=== PATIENT | female | born 1990 | race Caucasian/White ===

== ENCOUNTER → 2019-12-28 16:14 | Outpatient (CLI) | payer OTHER, SELFPAY ==
[2019-12-28 14:43] VITALS: BMI 29.0
[2019-12-28 17:10] LABS: Absolute Lymphocyte Count 3.06 X10^3/uL (0.83-4.51); Absolute Neutrophil Count 6.9 X10^3/uL (2.0-7.7); Basophil# 0.04 X10^3/uL; Basophil% 0.4 % (0-1); Eosinophils% 3.6 % (0-5); Hemoglobin 13.3 g/dL (12.0-15.0); Lymphocyte # 3.06 X10^3/ul (4.0); Lymphocyte % 27.4 % (19-41); Mean Corp Hgb Conc 34.1 g/dL (32-36); Mean Corpuscular Hgb 32.4 pg (27.0-32.0); Mean Corpuscular Volume 95.1 fL (81-99); Mean Platelet Vol. 9.8 fl (6.2-12.0); Monocyte% 6.3 % (0-10); NRBC Flagged by Analyzer 0 % (0-5); Neutrophil # 6.93 X10^3/uL (2.7-7.7); Neutrophil % 61.9 % (47-70); Platelet Count 357 K/mm3 (150-450); RBC Distribution Width CV 11.3 % (11.6-14.6); RBC Distribution Width SD 39.6 fl (35.1-43.9); White Blood Count 11.2 K/mm3 (4.4-11.0)
[2019-12-28 17:30] LABS: NATERA MAILED SPECIMEN
[2019-12-28 17:58] LABS: Amphetamine Urine VISTA NEGATIVE (<1000 ng/mL); Barbiturate Urine VISTA NEGATIVE (< 200 ng/mL); Benzodiazepine Urine VISTA NEGATIVE (< 200 ng/mL); Cocaine Urine VISTA NEGATIVE (< 300 ng/mL); Ecstacy Urine VISTA NEGATIVE (< 500 ng/mL); Methadone Urine VISTA NEGATIVE (< 300 ng/mL); PCP Urine VISTA NEGATIVE (< 25 ng/mL); THC Urine VISTA NEGATIVE (< 50 ng/mL); Vista UDS pH Range 4
[2019-12-29 09:45] LABS: HIV - WCH Non-Reactive (Nonreactive); Hepatitis B Surface Antigen Non-Reactive (Nonreactive); Hepatitis C Antibody Non-Reactive (Nonreactive); Rubella IgG 46.3 IU/mL
[2019-12-31 03:07] LABS: Chlamydia By Nucleic Acid AMP Negative (Negative)
[2019-12-31 04:31] LABS: Rapid Plasmin Reagin (RPR) NONREACTIVE (NONREACTIVE)
[2019-12-31 09:13] LABS: Gonococcus By Nucleic Acid AMP Negative (Negative)
== END ==
PROVIDERS: PCP Nurse Practitioner Family; Referring Provider Obstetrics & Gynecology; Visit Provider Obstetrics & Gynecology
DX: Z34.90 Encounter for supervision of normal pregnancy, unspecified, unspecified trimester (principal); Z83.71 Family history of colonic polyps
CPT/HCPCS: 36415; 80307; 85025; 86592; 86703; 86762; 86803; 86850; 86900; 86901; 87086; 87088; 87340; 87491; 87591

== ENCOUNTER → 2020-01-15 12:02 | Outpatient (CLI) | payer OTHER, SELFPAY ==
[2019-12-28 14:43] VITALS: BMI 29.0
== END ==
PROVIDERS: PCP Nurse Practitioner Family; Referring Provider Obstetrics & Gynecology; Visit Provider Obstetrics & Gynecology
DX: Z34.81 Encounter for supervision of other normal pregnancy, first trimester (principal)
CPT/HCPCS: 36415

== ENCOUNTER → 2020-05-16 12:41 | Outpatient (CLI) | payer OTHER, SELFPAY ==
[2020-04-18 13:27] VITALS: BMI 31.6
[2020-05-16 13:24] LABS: Absolute Lymphocyte Count 2.32 X10^3/uL (0.83-4.51); Absolute Neutrophil Count 7.5 X10^3/uL (2.0-7.7); Basophil# 0.03 X10^3/uL; Basophil% 0.3 % (0-1); Eosinophil# 0.52 X10^3/uL; Eosinophils% 4.7 % (0-5); Hematocrit 34.2 % (37-47); Hemoglobin 11.6 g/dL (12.0-15.0); Lymphocyte # 2.32 X10^3/ul (4.0); Lymphocyte % 21.1 % (19-41); Mean Corp Hgb Conc 33.9 g/dL (32-36); Mean Corpuscular Volume 97.2 fL (81-99); Monocyte# 0.61 X10^3/uL; Monocyte% 5.5 % (0-10); NRBC Flagged by Analyzer 0 % (0-5); Neutrophil # 7.46 X10^3/uL (2.7-7.7); Neutrophil % 67.7 % (47-70); Platelet Count 280 K/mm3 (150-450); RBC Distribution Width CV 11.9 % (11.6-14.6); RBC Distribution Width SD 41.2 fl (35.1-43.9); Red Blood Count 3.52 M/mm3 (4.2-5.4)
[2020-05-16 13:32] LABS: Glucose Challenge Gest 1H 50g 99 mg/dL (70-140)
== END ==
PROVIDERS: PCP Nurse Practitioner Family; Referring Provider Obstetrics & Gynecology; Visit Provider Obstetrics & Gynecology
DX: Z34.90 Encounter for supervision of normal pregnancy, unspecified, unspecified trimester (principal); Z13.1 Encounter for screening for diabetes mellitus
CPT/HCPCS: 36415; 82950; 85025

== ENCOUNTER → 2020-07-14 | Outpatient (CLI) | payer OTHER, SELFPAY ==
[2020-07-14 14:23] VITALS: BMI 34.4
== END | disposition home or self-care (01) ==
LOC: LABSPEC 17:15
PROVIDERS: PCP Nurse Practitioner Family; Visit Provider Obstetrics & Gynecology
DX: Z34.90 Encounter for supervision of normal pregnancy, unspecified, unspecified trimester (principal)
CPT/HCPCS: 87081

== ENCOUNTER → 2020-07-29 15:36 | Outpatient (CLI) | payer OTHER, SELFPAY ==
[2020-07-29 13:16] VITALS: BMI 34.2
--- NOTE | 2020-07-29 15:38 | US_ITS ---
STUDY: SECOND AND THIRD TRIMESTER OBSTETRICAL ULTRASOUND - LIMITED REASON FOR EXAM: Female, 30 years old 39 week . Growth. Size/date discrepancy. LMP: 10/30/2019. PRIOR ULTRASOUND: None. TECHNIQUE: Transabdominal TECHNICAL QUALITY: Adequate. FINDINGS: There is a single intrauterine fetus. The fetus is in a cephalic presentation. There is demonstrated cardiac activity with a heart rate of 143 bpm. There is a normal amniotic fluid volume. The largest amniotic fluid pocket measures 5.36 cm. The amniotic fluid index (SAURAV) is 13.88 cm. The placenta is anterior in location and is not low lying. There are Grade 2 placental changes. The cervix is obscured BIOMETRY: BPD: 9.32 cm: 37 weeks, days HC: 33.98 cm: 39 weeks, 0 days AC: 34.07 cm: 37 weeks, 6 days FL: 7.33 cm: 37 weeks, 3 days Age by LMP: 39 weeks, 0 days. BALAJI by LMP: 08/05/2020. age by current US: 38 weeks, 0 days. BALAJI by current US: 08/12/2020. Estimated weight: 3367 grams, +/- 505 grams, 44 percentile. Gender: Indeterminant US/OB Limited With Biometrics IMPRESSION: 1. Live single intrauterine at 38 weeks, 0 days. BALAJI is 08/12/2020. 2. EFW of 3367 g. 3. SAURAV of 13.88 cm. 4. Anterior grade 2 placenta. 5. VERTEX presentation. Electronically Signed: Ronald Salvador DO at 20:12 EDT Tel [phone], Service support ,
== END ==
PROVIDERS: PCP Nurse Practitioner Family; Referring Provider Obstetrics & Gynecology; Visit Provider Obstetrics & Gynecology
DX: O26.849 Uterine size-date discrepancy, unspecified trimester (principal); Z3A.00 Weeks of gestation of pregnancy not specified
CPT/HCPCS: 76816

== ENCOUNTER 2020-08-03 19:36 | Outpatient (CLI) | payer OTHER, SELFPAY ==
[2020-07-29 13:16] VITALS: BMI 34.2
[2020-08-03 19:47] VITALS: TEMP 36.4; O2SAT 98
[2020-08-03 19:49] VITALS: BP 125/77; PULSE 99; TEMP 36.3
[2020-08-03 19:54] VITALS: BMI 34.2
--- NOTE | 2020-08-04 08:42 | OB.TRI.PN ---
Progress Notes Date of Service: 08/03/20 Progress Note: Patient presents for triage evaluation secondary to decreased movement. Movement increased after arrival in triage. FHT: Moderate variability reactive no decelerations category I tracing Bradford: Irregular Contractions Assessment and plan: Reactive NST, reassuring maternal and status patient discharged to home to follow-up at next scheduled visit. See problem list details for additional plan information. Multi Select Codes - Urinary/Genital Urinary/Genital CPT Codes: 42118-51 non-stress test Interp
== END 2020-08-03 20:25 | disposition home or self-care (01) ==
LOC: WPOUT 19:38 → WP 19:39
PROVIDERS: PCP Nurse Practitioner Family; Visit Provider Obstetrics & Gynecology
DX: O36.8190 Decreased fetal movements, unspecified trimester, not applicable or unspecified (principal); Z3A.00 Weeks of gestation of pregnancy not specified
CPT/HCPCS: 59025; 59050; 99218; G0378

== ENCOUNTER 2020-08-10 18:55 | Inpatient (IN) | payer OTHER, SELFPAY ==
[2020-07-21 13:01] VITALS: BMI 34.2
[2020-08-05 13:19] VITALS: BMI 33.4
[2020-08-10 19:24] VITALS: BMI 35.2
[2020-08-10 19:31] VITALS: BP 117/84; PULSE 100; TEMP 36.8; O2SAT 98
[2020-08-10] MEDS: Lactated Ringers 1,000 ML 50 ML IV (19:50)
[2020-08-10 20:16] LABS: Absolute Lymphocyte Count 2.73 X10^3/uL (0.83-4.51); Absolute Neutrophil Count 7.1 X10^3/uL (2.0-7.7); Basophil# 0.03 X10^3/uL; Basophil% 0.3 % (0-1); Eosinophil# 0.42 X10^3/uL; Eosinophils% 3.7 % (0-5); Hematocrit 37.1 % (37-47); Hemoglobin 12.1 g/dL (12.0-15.0); Lymphocyte # 2.73 X10^3/ul (0.83-4.51); Lymphocyte % 24.2 % (19-41); Mean Corp Hgb Conc 32.6 g/dL (32-36); Mean Corpuscular Hgb 32.6 pg (27.0-32.0); Mean Platelet Vol. 11.2 fl (6.2-12.0); Monocyte# 0.93 X10^3/uL; Monocyte% 8.3 % (0-10); NRBC Flagged by Analyzer 0 % (0-5); Neutrophil # 7.06 X10^3/uL (2.7-7.7); Neutrophil % 62.7 % (47-70); Platelet Count 236 K/mm3 (150-450); RBC Distribution Width CV 12.3 % (11.6-14.6); RBC Distribution Width SD 45.4 fl (35.1-43.9); Red Blood Count 3.71 M/mm3 (4.2-5.4); White Blood Count 11.3 K/mm3 (4.4-11.0)
[2020-08-10] MEDS: miSOPROStol 25 MCG TABLET VAGINAL (20:20)
--- NOTE | 2020-08-10 21:44 | HP.PCM.OB_ITS ---
HPI - General General Date of Admission: 08/10/20 HPI Narrative ERICK ASKEW, is a 30 F who presents for induction of labor for post-dates. [facility] Medical History (Updated 08/10/20 @ 21:[address] Kelsea Del Rio MD) Urinary frequency Home Medications famotidine [Pepcid] 20 mg PO BID 08/10/20 [History Last Taken 08/03/20 08:00] [id number] [] 1 tab PO DAILY 08/10/20 [History Last Taken 08/10/20 17:00] Allergy/AdvReac Type Severity Reaction Status Date / Time Penicillins Allergy Mild hives, Verified 08/10/20 19:34 breathing issues shellfish derived Allergy Mild hives Verified 08/10/20 19:34 Family History Uncle Colon cancer Liver cancer Grandfather Liver cancer Social History (Updated 08/10/20 @ 19:41 by Gabriela Velazquez) adopted: No household members: spouse housing: house number of children: 0 financial difficulty paying for basics: not applicable service: No current occupational status: employed current occupation: [employer] current occupational exposures/hazards: No pets and animals: Yes (cat) history of recent travel: No sexually active: Yes do you think of yourself as: straight/heterosexual current gender identity: female Smoking Status: Former smoker smoking status stop date: 07/15/19 how long ago did patient quit smokin year ago second hand exposure: No alcohol intake: never substance use type: does not use caffeine: Yes what type of physical activity do you participate in: walking and other details: spinning frequency: 3-4 times per week seatbelt use: always do you feel safe at home: Yes 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 [employer] History 1 Elective abortions Hx Para 0 Spontaneous abortions Hx # Term Pregnancies Ectopic pregnancies Hx # Pregnancies Multiple births # of living children NST FHR Rate Baby A Baseline: 130 Variability:: Moderate Accelerations:: 15 x 15 Decelerations:: None NST Reactive:: Yes FHR Category:: Category I Uterine Activity:: q5-8min ROS Eyes Eyes: Reports systems reviewed and no addt'l complaints, except as documented ENT HEENT: Reports systems reviewed and no addt'l complaints, except as documented Cardiovascular Cardiovascular: Reports systems reviewed and no addt'l complaints, except as documented Respiratory/Chest Respiratory/Chest: Reports systems reviewed and no addt'l complaints, except as documented Gastrointestinal Gastrointestinal: Reports systems reviewed and no addt'l complaints, except as documented Genitourinary Genitourinary: Reports systems reviewed and no addt'l complaints, except as documented Musculoskeletal Musculoskeletal: Reports systems reviewed and no addt'l complaints, except as documented Integumentary Integumentary: Reports systems reviewed and no addt'l complaints, except as documented Neurologic Neurologic: Reports systems reviewed and no addt'l complaints, except as documented Psychiatric Psychiatric: Reports systems reviewed and no addt'l complaints, except as documented Endocrine Endocrinology: Reports systems reviewed and no addt'l complaints, except as documented Hematologic/Lymphatic Hematologic/Lymphatic: Reports systems reviewed and no addt'l complaints, except as documented Allergic/Immunologic Allergic/Immunologic: Reports systems reviewed and no addt'l complaints, except as documented Vital Signs Vital Signs Vital Signs: 08/10/20 19:31 Temperature 98.3 F Temperature Source Temporal Pulse Rate 100 Blood Pressure 117/84 H BP Systolic 117 BP Diastolic 84 Pulse Ox 98 Physical Exam Const alert, oriented x3, no apparent distress, average body habitus, healthy appearing and well nourished HEENT normocephalic and moist oral mucous membranes Head and Scalp: atraumatic Eyes PERRL and EOMs intact bilaterally Neck full ROM Resp normal respiratory effort, no retractions and no use of accessory muscles Cardio regular rate and regular rhythm GI soft to palpation, non-tender and non-distended Manual OB Exam: dilated 0, effaced 40 and station -3 Extremity normal to inspection and full ROM Skin no rashes or lesions noted Neuro no focal motor deficits and no sensory deficits noted Psych mental status grossly normal, affect normal, speech normal and activity/motor behavior normal Assessment & Plan Assessment/Plan (1) : Status: Acute Code(s): Z34.90 - Encounter for supervision of normal , unspecified, unspecified trimester Qualifiers: Weeks of gestation: 40 weeks Qualified Code(s): Z3A.40 - 40 weeks gestation of (2) Supervision of normal : Status: Acute Code(s): Z34.90 - Encounter for supervision of normal , unspecified, unspecified trimester Qualifiers: Normal : normal first Trimester: third trimester Qualified Code(s): Z34.03 - Encounter for supervision of normal first , third trimester (3) History of tetanus, diphtheria, and acellular pertussis booster vaccination (Tdap): Status: Acute Code(s): Z92.29 - Personal history of other drug therapy (4) Encounter for induction of labor: Status: Acute Code(s): Z34.90 - Encounter for supervision of normal , unspecified, unspecified trimester Plan: Labor preferences: labor support person: Aden labor intervention preferences: open to standard interventions pain management options preferred: desires natural labor but open to epidural cut cord/dad catch: both : yes PP control planned: undecided discussed possible routes of delivery and associated risks: discussed possible delivery modalities and possible indications for each including R/B/A of , VAVD, FAVD, and CS. questions answered. special requests: none Patient presents IOL, plan management for with cytotec. Pain management: desires natural, but open to epidural GBS negative. Management of any complications: none I have reviewed the [facility] and made any clinically relevant updates.
[2020-08-10 22:27] VITALS: BP 115/69; PULSE 81; TEMP 36.3; O2SAT 98
[2020-08-11] VITALS (77 sets, daily range): BP systolic 103–239; BP diastolic 56–177; PULSE 58–151; RESP 16–18; TEMP 36.1–38.8; O2SAT 81–100
[2020-08-11] MEDS: 0.9% Saline Lock 10 ML Syringe IV ×4 (00:32→16:04)
[2020-08-11] MEDS: miSOPROStol 25 MCG TABLET VAGINAL (00:53)
[2020-08-11] MEDS: Lactated Ringers 500 ML 999 ML IV ×3 (01:30→06:31)
[2020-08-11] MEDS: fentaNYL 100 MCG/2 ML Ampul IV ×2 (04:15→04:40)
[2020-08-11] MEDS: Ondansetron 4 MG/2 ML Vial IV (06:09)
[2020-08-11] MEDS: fentaNYL-bupivacaine (epidural) 100 ML BAG EPIDURAL ×2 (07:26→12:00)
[2020-08-11] MEDS: Lactated Ringers 1,000 ML 200 ML IV (08:09)
--- NOTE | 2020-08-11 08:47 | NURSING ---
Epidural pump restarted after epidural pump was replaced.
--- NOTE | 2020-08-11 12:00 | NURSING ---
New bag of fentanyl hung to epidural pump at 1200.
[2020-08-11] MEDS: Oxytocin 30 units/NS 500 ml 30 UNITS/500 ML IV.SOLN 334 UNITS IV (12:57)
[2020-08-11] MEDS: Methylergonovine 0.2 MG/ML Ampul IM (13:00)
[2020-08-11] MEDS: miSOPROStol 200 MCG Tablet 1000 MCG RC (13:17)
--- NOTE | 2020-08-11 14:19 | EX.PCM.OBRPT ---
Report of Operation (OB) Information BALAJI Calculator Estimated Delivery Date Method Current WG Current Estimate 08/05/20 LMP (Certain) 40w 6d Other Estimates 08/05/20 Ultrasound #1 40w 6d Induction Maternal Presentation: Medically Indicated Induction (Post dates) Type of Induction: Cytotec Medical Reason for Induction: Post term Findings Description of Procedure: Patient began pushing and delivered the head in the ROP presentation. The head was delivered atraumatically and no nuchal cord was noted. The anterior and posterior shoulders delivered without complication followed by the rest of the and the was placed on the maternal abdomen. Delayed cord clamping was employed for approximately 60 seconds. Cord was clamped and cut and gentle traction was applied to the cord and the placenta delivered spontaneously immediately following it was noted to be intact with three-vessel cord. The perineum and vagina were inspected and a midline 2nd degree laceration was noted and repaired in the standard fashion using 3-0 vicryl rapide suture. Uterine atony was noted and repaired with bimanual massage, methergine, and cytotec. EBL was 350 ml. Patient and tolerated delivery well. Surgery/ Procedure Performed: Spontaneous Vaginal Delivery Presentation: Positive for Vertex and ROP Amniotic Membrane Rupture Type: Spontaneous Amniotic Fluid Description: Clear Placental Delivery Description: Spontaneous Placenta Disposition: [facility] Cord Vessel Description: 3 Vessels Cord Entanglement: None Gender: Female Delayed Cord Clamping: Yes Drain: Franklin to straight drain Esitmated Blood Loss (mL): 350 Medications Given Medications Given After Delivery: IV Pitocin and IM Methergin Post Vaginal Delivery Episiotomy Description: None Laceration: Midline, Perineal Extension/lac and 2nd degree Baby B Information Amniotic Membrane Rupture Type: Spontaneous Operative Information Cord Entanglement: None Cord Vessel Description: 3 Vessels [id number]: [id number] Vaginal Delivery global pk
[2020-08-11] MEDS: Acetaminophen 500 MG Tablet 1000 MG PO (15:17)
--- NOTE | 2020-08-11 15:19 | NURSING ---
Updated Dr. Del Rio's office via phone that patient's temperature is 101.4 orally and gave patient Tylenol 1000 mg PO. Vitals stable. Continue current plan of care and monitor vital signs.
--- NOTE | 2020-08-11 15:30 | NURSING ---
Orders received from Dr. Del Rio for antibiotics. Antibiotic orders entered as ordered.
--- NOTE | 2020-08-11 16:49 | NURSING ---
Epidural catheter removed. Blue tip intact.
[2020-08-11] MEDS: Naproxen 500 MG Tablet PO (20:30)
[2020-08-12 01:02] VITALS: BP 101/56; PULSE 86; RESP 16; TEMP 36.5
[2020-08-12] MEDS: Acetaminophen 500 MG Tablet 1000 MG PO ×2 (01:06→12:33)
[2020-08-12] MEDS: 0.9% Saline Lock 10 ML Syringe IV ×2 (01:07→08:44)
[2020-08-12 04:35] VITALS: BP 109/75; PULSE 101; RESP 18; TEMP 36.1
[2020-08-12] MEDS: Naproxen 500 MG Tablet PO ×2 (06:06→16:38)
--- NOTE | 2020-08-12 08:09 | PCM.PN.OB ---
Subjective Subjective: Patient doing well without complaints. Tolerating PO. Ambulating and voiding without difficulty. Breast feeding well. Denies chest pain, shortness of breath, calf pain/swelling, fevers, chills, lightheadedness. Objective Data Objective Data Vital Signs: Vital Signs Temp Pulse Resp BP Pulse Ox 96.9 F L 101 H 18 109/75 99 08/12/20 04:35 08/12/20 04:35 08/12/20 04:35 08/12/20 04:35 08/11/20 15:29 Oxygen Delivery Method Room Air Weight: 212 lb Body Mass Index (BMI) 35.2 Intake & Output: Intake and Output for Last 24 Hours 08/10/20 08/11/20 08/12/20 23:59 23:59 23:59 Intake Total 4135.75 / 4135.75 106 / 106 Output Total 1200 / 1200 Balance 2935.75 / 2935.75 106 / 106 Lab / Micro Data Result Diagrams: 08/10/20 19:50 Micro: Microbiology 08/10/20 20:00 Mucosa - Nasopharyngeal SARS-CoV-2 Antigen (Rapid) - Final Physical Exam Const alert, oriented x3, no apparent distress, average body habitus, healthy appearing and well nourished HEENT normocephalic Head and Scalp: atraumatic Eyes PERRL and EOMs intact bilaterally Neck full ROM Lymph Lymphatic: no lymphadenopathy noted Resp normal respiratory effort, no retractions and no use of accessory muscles Cardio regular rate GI soft to palpation, non-tender and non-distended Palpation: other Other Details: fundus firm Extremity normal to inspection and no clubbing, cyanosis or edema Skin no rashes or lesions noted Neuro no focal motor deficits and no sensory deficits noted Psych mental status grossly normal, affect normal and speech normal Assessment & Plan Assessment/Plan (1) (spontaneous vaginal delivery): Status: Acute Code(s): O80 - Encounter for full-term uncomplicated delivery Plan: s/p PPD # 1 1. routine post delivery care 2. breast feeding- support given 3. rh positive 4. rubella immune (2) Endometritis following delivery: Status: Acute Code(s): O86.12 - Endometritis following delivery Plan: Patient to receive last dose of clindamycin this am Will monitor throughout the day and if vitals stable can DC to home this evening
[2020-08-12 09:02] VITALS: BP 103/64; PULSE 96; RESP 16; TEMP 36.1
[2020-08-12 13:00] VITALS: BP 104/58; PULSE 101; RESP 16; TEMP 36.4
[2020-08-12 18:00] VITALS: BP 102/60; PULSE 100; RESP 18; TEMP 36.6
== END 2020-08-12 18:45 | disposition home or self-care (01) | DRG 807 ==
PROVIDERS: Admitting Provider Obstetrics & Gynecology; PCP Nurse Practitioner Family; Visit Provider Obstetrics & Gynecology
DX: O48.0 Post-term pregnancy (principal); Z37.0 Single live birth; Z3A.40 40 weeks gestation of pregnancy; Z87.891 Personal history of nicotine dependence; O70.1 Second degree perineal laceration during delivery; O62.2 Other uterine inertia
CPT/HCPCS: 59025; 59050; 85025; 86850; 86900; 86901; 87426; 99218; J7120; A4216; G0378; J2405

== ENCOUNTER 2020-08-17 13:15 | Outpatient (CLI) | payer OTHER, SELFPAY ==
[2020-08-17 13:37] LABS: Absolute Lymphocyte Count 2.98 X10^3/uL (0.83-4.51); Absolute Neutrophil Count 4.2 X10^3/uL (2.0-7.7); Basophil# 0.03 X10^3/uL; Basophil% 0.4 % (0-1); Eosinophil# 0.63 X10^3/uL; Eosinophils% 7.4 % (0-5); Hematocrit 29.4 % (37-47); Hemoglobin 9.6 g/dL (12.0-15.0); Lymphocyte # 2.98 X10^3/ul (0.83-4.51); Lymphocyte % 34.8 % (19-41); Mean Corp Hgb Conc 32.7 g/dL (32-36); Mean Corpuscular Hgb 32.7 pg (27.0-32.0); Mean Platelet Vol. 9.3 fl (6.2-12.0); Monocyte# 0.58 X10^3/uL; Monocyte% 6.8 % (0-10); NRBC Flagged by Analyzer 0 % (0-5); Neutrophil # 4.23 X10^3/uL (2.7-7.7); Neutrophil % 49.2 % (47-70); Platelet Count 297 K/mm3 (150-450); RBC Distribution Width CV 12.6 % (11.6-14.6); RBC Distribution Width SD 45.6 fl (35.1-43.9); Red Blood Count 2.94 M/mm3 (4.2-5.4); White Blood Count 8.6 K/mm3 (4.4-11.0)
== END 2020-08-17 14:40 ==
LOC: WPOUT 13:18 → WP 13:19
PROVIDERS: PCP Nurse Practitioner Family; Visit Provider Obstetrics & Gynecology
DX: O86.12 Endometritis following delivery (principal)
CPT/HCPCS: 36415; 85025

== ENCOUNTER → 2020-09-23 | Outpatient (CLI) | payer OTHER, SELFPAY ==
[2020-09-23 12:06] VITALS: BMI 29.7
[2020-09-28 13:30] LABS: HPV Reflexed? NOT INDICATED
== END | disposition home or self-care (01) ==
LOC: LABSPEC 16:42
PROVIDERS: PCP Nurse Practitioner Family; Referring Provider Obstetrics & Gynecology; Visit Provider Obstetrics & Gynecology
DX: Z12.4 Encounter for screening for malignant neoplasm of cervix (principal)
CPT/HCPCS: 88175; G0145

== ENCOUNTER → 2022-07-11 | Outpatient (CLI) | payer OTHER, SELFPAY ==
--- NOTE | 2022-07-11 13:23 | US_ITS ---
STUDY: ULTRASOUND OF THE FEMALE PELVIS - COMPLETE REASON FOR EXAM: Female, 32 years old. IUD check LMP: June 27, 2022. TECHNIQUE: Transvaginal TECHNICAL QUALITY: Adequate. COMPARISON: None. FINDINGS: The uterus is anteverted and is in a midline position. The uterus measures 9.6 cm x 4.9 cm x 3.6 cm. Normal uterine cervix. The endometrium measures 4.0 mm in thickness, and is . There is no demonstrated endometrial mass. There is no demonstrated myometrial mass. I.U.D. - The patient does have an I.U.D.. The IUD lies in a normal position. The right ovary is visualized. The right ovary measures 3.6 cm x 2.3 cm x 2.2 cm. There is a 2.3 cm x 1.9 cm x 1.9 cm ovarian cyst. There is no visualized right adnexal mass or complex lesion. There is normal arterial and normal venous vascularity. The left ovary is visualized. The left ovary measures 3.2 cm x 1.9 cm x 2.5 cm. There is no left ovarian cyst or ovarian mass. There is no visualized left adnexal mass or complex lesion. There is normal arterial and normal venous vascularity. There is no fluid in the cul-de-sac. US/Transvaginal Non- IMPRESSION: The IUD is within normal position. 2.3 cm x 1.9 cm x 1.9 cm simple right ovarian cyst. Electronically Signed: Checo Obando MD at 13:02 EDT ,
== END | disposition home or self-care (01) ==
LOC: US 13:21
PROVIDERS: PCP Nurse Practitioner Family; Referring Provider Obstetrics & Gynecology; Visit Provider Obstetrics & Gynecology
DX: N92.0 Excessive and frequent menstruation with regular cycle (principal)
CPT/HCPCS: 76830

== ENCOUNTER → 2023-10-07 | Outpatient (CLI) | payer OTHER, SELFPAY ==
[2023-10-11 11:09] LABS: HPV APTIMA, High Risk Negative (Negative)
== END | disposition home or self-care (01) ==
LOC: LABSPEC 13:34
PROVIDERS: PCP Nurse Practitioner Family; Referring Provider Obstetrics & Gynecology; Visit Provider Obstetrics & Gynecology
DX: Z12.4 Encounter for screening for malignant neoplasm of cervix (principal)
CPT/HCPCS: 87624; 88175; G0145

== ENCOUNTER 2024-04-01 16:16 | Emergency (ER) | payer OTHER, SELFPAY ==
[2024-04-01 16:16] VITALS: BP 128/82; PULSE 117; RESP 16; TEMP 36.7; O2SAT 100; BMI 29.2
--- NOTE | 2024-04-01 16:32 | EDS_ITS ---
HPI HPI - Female History of Present Illness Chief Complaint: Abd Pain Informant: patient Pain Pain: Positive for Pelvic Pain Onset: Today Context: Sudden Onset Timing: Continuous Quality: Positive for Cramping Location: LLQ, Suprapubic and Back Worsened by: - (Nothing) Relieved by: - (Laying on her side) Associated Symptoms Associated Symptoms: Positive for Frequency; Negative for Dysuria or Urgency Test: Positive P: 1 Narrative Narrative: Patient presents with pelvic pain and vaginal bleeding that began today. Patient states it began rather suddenly. Patient states she is approximately 4 weeks . Patient states she had a positive test yesterday. Patient is 2 para 1. Patient admits to some cramping over the suprapubic area. Patient also admits to some pain in her left lower back that radiates around into her left lower quadrant and left inguinal area. Patient states that nothing makes it worse. Patient states it is better when she is able to lay on her side. Patient denies any fevers or chills. Patient denies any dysuria. PFSH PFS Medical History Herniated disc Endometritis following delivery Home Medications ?Medication ?Instructions ?Recorded ?Last Taken ?Type Lactobacillus acidophilus 250 500 mmu cells PO DAILY 04/01/24 Unknown History million cell capsule (Probiotic Acidophilus) docosahexaenoic acid 200 mg 200 mg PO DAILY 04/01/24 Unknown History capsule ( DHA) Allergy/AdvReac Type Severity Reaction Status Date / Time amoxicillin Allergy Intermediate Rash Verified 04/01/24 16:17 vancomycin Allergy Intermediate Rash Verified 04/01/24 16:17 Penicillins Allergy Mild hives, Verified 04/01/24 16:17 breathing issues shellfish derived Allergy Mild hives Verified 04/01/24 16:17 Family History Uncle Colon cancer Liver cancer Grandfather Liver cancer Surgical History Previous back surgery Social History adopted: No household members: spouse housing: house number of children: 1 current occupational status: employed current occupation: [employer] current occupational exposures/hazards: No pets and animals: Yes (cat) history of recent travel: No sexually active: Yes Smoking Status: Former smoker how long ago did patient quit smokin year ago second hand exposure: No alcohol intake: never substance use type: does not use caffeine: Yes what type of physical activity do you participate in: walking and other details: spinning frequency: 3-4 times per week seatbelt use: always do you feel safe at home: Yes 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 [employer] ROS ROS ED Constitutional Constitutional ED: Denies chills or fever(s) Eyes Eyes: Denies blurry vision or change in vision ENT ENT ED: Denies rhinorrhea or sore throat Cardiovascular Cardiovascular: Denies chest pain or palpitations Respiratory/Chest Respiratory/Chest: Reports dyspnea; Denies cough Gastrointestinal Gastrointestinal: Denies nausea or vomiting Genitourinary Genitourinary ED: Denies dysuria or hematuria Musculoskeletal Musculoskeletal: Reports back pain; Denies neck pain Integumentary Denies abscess or rash Neurologic Neurologic: Reports headache(s); Denies weakness Allergic/Immunologic Allergic/Immunologic ED: Denies mouth swelling or urticaria EXAM Physical Exam Const Vital Signs: 04/01/24 16:16 04/01/24 18:55 Temperature 98.1 F Temperature Source Temporal Pulse Rate 117 H 78 Respiratory Rate 16 18 Blood Pressure 128/82 H 117/78 Blood Pressure Mean 97 91 Pulse Ox 100 100 Oxygen Delivery Method Room Air Positive well nourished and well developed General Appearance ED: cooperative, well kempt and well developed Orientation / Consciousness: awake HEENT Reports normocephalic and moist oral mucous membranes Neck full ROM, supple and no JVD Resp normal respiratory effort and clear to auscultation bilaterally Cardio regular rate and regular rhythm GI soft to palpation and non-distended Palpation: soft and tender LLQ and suprapubic; Negative for rebound tenderness present Extremity normal to inspection and full ROM Neuro oriented x3, CN's II-XII intact bilaterally, moves all extremities, no focal motor deficits and no sensory deficits noted Jose David Coma Scale: document GCS findings Spontaneous Obeys Commands Oriented 15 Sensorium / Orientation: awake and alert Speech: speech normal Gait (Neuro): normal gait Psych mental status grossly normal, thought process normal and cooperative MDM MDM MDM Narrative Medical decision making narrative: Differential diagnosis includes ectopic , threatened miscarriage, ur inary tract infection, implantation bleeding, and sacroiliitis. CBC will be obtained to assess for leukocytosis and anemia. Basic metabolic profile will be obtained to assess for electrolyte abnormality and renal function. Quantitative hCG will be obtained to assess for level. Pelvic ultrasound will be obtained to assess for ectopic and miscarriage. Lab Data Attestation: I reviewed the patient's lab results. Lab results narrative: CBC was reviewed and was within normal limits. Basic metabolic profile was reviewed and was essentially within normal limits. Quantitative hCG was reviewed and was 9. Urinalysis was reviewed. Leukocyte esterase was 25 there were 5-10 white blood cells. Occult blood was 250 with 10-25 red blood cells. Labs: Laboratory Results - last 24 hr 04/01/24 04/01/24 16:27 16:35 WBC 5.1 RBC 4.14 L Hgb 13.9 Hct 40.6 MCV 98.1 MCH 33.6 H MCHC 34.2 RDW Std Deviation 41.4 RDW Coeff of Kem 11.4 L Plt Count 306 MPV 9.1 Immature Gran % (Auto) 0.200 Neut % (Auto) 47.1 Lymph % (Auto) 28.7 Henderson % (Auto) 14.7 H Eos % (Auto) 8.1 H Baso % (Auto) 1.2 H Absolute Neuts (auto) 2.4 Absolute Lymphs (auto) 1.45 Nucleated RBC % 0 Sodium 139 Potassium 3.6 Chloride 108 H Carbon Dioxide 29.0 Anion Gap 2 L BUN 15 Creatinine 0.88 Estim Creat Clear Calc 99.21 Est GFR (MDRD) Af Amer 96 Est GFR (MDRD) Non-Af 79 BUN/Creatinine Ratio 17.1 Glucose 91 Calcium 9.2 HCG, Quant 9 H Urine Color Yellow Urine Clarity Sl. Cloudy Urine pH 7.0 Ur Specific [place] 1.015 Urine Protein 30 H Urine Glucose (UA) Normal Urine Ketones Negative Urine Occult Blood 250 H Urine Nitrite Negative Urine Bilirubin Negative Urine Urobilinogen Normal Ur Leukocyte Esterase 25 H Urine RBC 10-25 SEEN Urine WBC 5-10 SEEN Ur Squamous Epith Cells 0-5 SEEN Urine Bacteria 1+ Urine Mucus 1+ Radiography Diagnostic Testing: Clinical Impression(s) from Imaging Studies Obstetrics Ultrasound 04/01/24 16:44 IMPRESSION: No evidence for intrauterine gestation or definitive evidence for ectopic . Small left ovarian cyst. If clinical concern for ectopic follow-up studies recommended Electronically Signed: Andi Bliss MD at 19:06 EST Reading Location ID and State: [facility] / [place] Tel , Service support , Pelvic ultrasound was obtained. There is no evidence of intrauterine gestation or ectopic . There is a small left ovarian cyst. This was interpreted by the radiologist and was also independently reviewed by myself. Management Discussion w/another healthcare provider: Senior Financial Analyst (Dr. Marino) Treatment and Re-Evaluation Narrative: Patient was given IV fluids. Patient was advised of the findings. Case was discussed with Dr. Marino. She will follow-up with the patient in 2 days and have a repeat quantitative hCG at that time. Patient was instructed to drink plenty of fluids. Patient was instructed to return if worse in any way. Patient understood and was agreeable with the plan. All questions were answered. Discharge Plan Triage Chief Complaint: Abd Pain Other Complaint: Vag Bld, Preg ED Provider: Royce Chapin Dx/Rx/DC Orders Clinical Impression: , Threatened miscarriage in early Instructions: Miscarriage Threatened , ED Prescriptions: No Action DHA 200 mg capsule 200 mg PO DAILY Probiotic Acidophilus 250 million cell capsule 500 mmu cells PO DAILY Primary Care Provider: Carter Iglesias Referrals: Isabel Marino MD [Med Staff - Active Staff] - 2 Days Yana Ballard NP, YAKELIN-C [Non-Staff] - Activity Restrictions/Additional Instructions: Follow-up with Dr. Marino in 2 days for repeat blood draw. She may be able to do this in the office. Print Language: Colombian Disposition Disposition: Home, Self Care
--- NOTE | 2024-04-01 16:44 | US_ITS ---
STUDY: FIRST TRIMESTER OBSTETRICAL ULTRASOUND REASON FOR EXAM: Female, 34 years old Threatened miscarriage LMP: TECHNIQUE: Transvaginal TECHNICAL QUALITY: Adequate. PRIOR ULTRASOUND: None. FINDINGS: There is no evidence for intrauterine gestational sac. The uterus measures 8 x 5 x 3.3 cm. There is no demonstrated uterine fibroid. The cervix is closed. The right ovary measures 2.8 x 2 x 1.7 cm. Multiple small follicles but no dominant cyst. There is no visualized right adnexal mass or complex lesion. The left ovary measures 3.6 x 2 x 2 cm. Multiple small cystic follicles the largest measuring 1.5 x 1.3 x 1.1 cm There is no visualized left adnexal mass or complex lesion. There is no fluid in the cul de sac. US/Transvaginal w/Preg US IMPRESSION: No evidence for intrauterine gestation or definitive evidence for ectopic . Small left ovarian cyst. If clinical concern for ectopic follow-up studies recommended Electronically Signed: Andi Bliss MD at 19:06 EST Reading Location ID and State: [address] [place] [address] Tel , Service support ,
[2024-04-01 16:56] LABS: Absolute Lymphocyte Count 1.45 X10^3/uL (0.83-4.51); Absolute Neutrophil Count 2.4 X10^3/uL (2.0-7.7); Basophil# 0.06 X10^3/uL; Basophil% 1.2 % (0-1); Eosinophil# 0.41 X10^3/uL; Eosinophils% 8.1 % (0-5); Hematocrit 40.6 % (37-47); Hemoglobin 13.9 g/dL (12.0-15.0); Lymphocyte # 1.45 X10^3/ul (0.83-4.51); Lymphocyte % 28.7 % (19-41); Mean Corp Hgb Conc 34.2 g/dL (32-36); Mean Corpuscular Hgb 33.6 pg (27.0-32.0); Mean Corpuscular Volume 98.1 fL (81-99); Mean Platelet Vol. 9.1 fl (6.2-12.0); Monocyte# 0.74 X10^3/uL; Monocyte% 14.7 % (0-10); NRBC Flagged by Analyzer 0 % (0-5); Neutrophil # 2.38 X10^3/uL (2.7-7.7); Neutrophil % 47.1 % (47-70); Platelet Count 306 K/mm3 (150-450); RBC Distribution Width CV 11.4 % (11.6-14.6); RBC Distribution Width SD 41.4 fl (35.1-43.9); Red Blood Count 4.14 M/mm3 (4.2-5.4); White Blood Count 5.1 K/mm3 (4.4-11.0)
[2024-04-01] MEDS: 0.9% Normal Saline (1000mL) 1,000 ML 999 ML IV (17:00)
[2024-04-01 17:12] LABS: Color, Urine Yellow (Yellow); Glucose, Dipstick Normal (Normal); Ketone-Dipstick Negative (Negative); Leukocyte Esterase-Dipstick 25 /ul (Negative); Nitrite-Dipstick Negative (Negative); Occult Blood-Urine 250 /ul (Negative); Protein-Dipstick 30 mg/dl (Negative); Specific Gravity, Urine 1.015 (1.002-1.030); Urine Bilirubin Dipstick Negative (Negative); Urine Clarity Sl. Cloudy (Clear); Urine Urobilinogen Normal (Normal)
[2024-04-01 17:14] LABS: Anion Gap 2 (5-15); BUN 15 mg/dL (7-18); BUN/Creat Ratio 17.1 RATIO (10-20); Calcium,Total 9.2 mg/dL (8.5-10.1); Chloride 108 mmol/L (98-107); Creatinine, Serum 0.88 mg/dL (0.55-1.02); EST Glomerular Filtration Rate 79 mL/min (>60); Est Glom Filt Rate - Afr Amer 96 mL/min (>60); Estimated Creatinine Clearance 99.21 ml/min; Glucose 91 mg/dL (74-106); Potassium 3.6 mmol/L (3.5-5.1); Sodium Level 139 mmol/L (136-145)
[2024-04-01 17:19] LABS: hCG Titer Quant., Serum 9 mIU/mL (1-3)
[2024-04-01 17:46] LABS: Bacteria 1+ /hpf (None Seen); Mucous, Urine 1+ /hpf (<or=2+); Red Blood Cells-Urine 10-25 SEEN /hpf (0-5); Squamous Epithelial Cells - UA 0-5 SEEN /hpf (5-10); White Blood Cells 5-10 SEEN /hpf (0-5)
[2024-04-01 18:55] VITALS: BP 117/78; PULSE 78; RESP 18; O2SAT 100
[2024-04-01 20:00] VITALS: BP 112/68; PULSE 79; RESP 18; TEMP 36.6; O2SAT 100
== END 2024-04-01 20:29 | disposition home or self-care (01) ==
PROVIDERS: Emergency Provider Emergency Medicine; PCP Family Medicine; Visit Provider Emergency Medicine
DX: O20.0 Threatened abortion (principal); Z3A.01 Less than 8 weeks gestation of pregnancy; Z87.891 Personal history of nicotine dependence
CPT/HCPCS: 76817; 80048; 81001; 84702; 85025; 96360; 99284; A4216

== ENCOUNTER → 2024-04-03 | Outpatient (CLI) | payer OTHER, SELFPAY ==
[2024-04-03 17:19] LABS: hCG Titer Quant., Serum 8 mIU/mL (1-3)
== END | disposition home or self-care (01) ==
LOC: BWCLAB 15:48
PROVIDERS: PCP Family Medicine; Referring Provider Obstetrics & Gynecology; Visit Provider Obstetrics & Gynecology
DX: O20.0 Threatened abortion (principal); Z3A.00 Weeks of gestation of pregnancy not specified
CPT/HCPCS: 36415; 84702

== ENCOUNTER → 2024-04-06 | Outpatient (CLI) | payer OTHER, SELFPAY ==
[2024-04-06 16:46] LABS: hCG Titer Quant., Serum 6 mIU/mL (1-3)
== END | disposition home or self-care (01) ==
LOC: BWCLAB 14:52
PROVIDERS: PCP Family Medicine; Referring Provider Obstetrics & Gynecology; Visit Provider Obstetrics & Gynecology
DX: O20.0 Threatened abortion (principal); Z3A.00 Weeks of gestation of pregnancy not specified
CPT/HCPCS: 36415; 84702

== ENCOUNTER → 2024-04-14 | Outpatient (CLI) | payer OTHER, SELFPAY ==
[2024-04-14 16:08] LABS: hCG Titer Quant., Serum < 1 mIU/mL (1-3)
== END | disposition home or self-care (01) ==
LOC: BWCLAB 14:01
PROVIDERS: PCP Family Medicine; Referring Provider Nurse Practitioner Women's Health; Visit Provider Nurse Practitioner Women's Health
DX: O03.9 Complete or unspecified spontaneous abortion without complication (principal); Z3A.00 Weeks of gestation of pregnancy not specified
CPT/HCPCS: 36415; 84702

== ENCOUNTER → 2024-06-16 | Outpatient (CLI) | payer OTHER, SELFPAY ==
[2024-06-16 18:35] LABS: hCG Titer Quant., Serum 37 mIU/mL (<9 non-preg)
== END | disposition home or self-care (01) ==
PROVIDERS: PCP Family Medicine; Referring Provider Obstetrics & Gynecology; Visit Provider Obstetrics & Gynecology
DX: N91.2 Amenorrhea, unspecified (principal)
CPT/HCPCS: 36415; 84702

== ENCOUNTER → 2024-06-18 | Outpatient (CLI) | payer OTHER, SELFPAY ==
[2024-06-18 17:40] LABS: hCG Titer Quant., Serum 110 mIU/mL (<9 non-preg)
== END | disposition home or self-care (01) ==
LOC: BWCLAB 16:05
PROVIDERS: PCP Family Medicine; Referring Provider Obstetrics & Gynecology; Visit Provider Obstetrics & Gynecology
DX: N91.2 Amenorrhea, unspecified (principal)
CPT/HCPCS: 36415; 84702

== ENCOUNTER → 2024-06-25 | Outpatient (CLI) | payer OTHER, SELFPAY ==
[2024-06-25 20:59] LABS: hCG Titer Quant., Serum 2419 mIU/mL (<9 non-preg)
== END | disposition home or self-care (01) ==
LOC: BWCLAB 14:19
PROVIDERS: PCP Family Medicine; Referring Provider Obstetrics & Gynecology; Visit Provider Obstetrics & Gynecology
DX: O20.9 Hemorrhage in early pregnancy, unspecified (principal); Z3A.00 Weeks of gestation of pregnancy not specified
CPT/HCPCS: 36415; 84702

== ENCOUNTER → 2024-06-25 | Outpatient (CLI) | payer OTHER, SELFPAY ==
--- NOTE | 2024-06-25 15:54 | US_ITS ---
PROCEDURE: TRANSVAGINAL W/PREG US (USTVAGP), 06/25/2024 REASON FOR EXAM: RULE OUT ECTOPIC . Reportedly, 4 weeks 5 days with EGD 02/27/2025 by previously established dates. TECHNIQUE: Grayscale and color doppler transvaginal pelvic ultrasound was performed with attention to the uterus and associated early gestation. COMPARISON: 06/02/2023. Images only are available for review; the report is not available at the time of dictation. FINDINGS: An endometrial ovoid sonolucency in the fundus measures 7 x 2 x 8 mm and may reflect an early gestational sac however there is no definite surrounding. Gestational reaction. Mean sac diameter 6 mm corresponding to an estimated gestational age 5 weeks 2 days. A possible minute pole measures 2 mm, too small for estimation of gestational age. A yolk sac and cardiac activity are not identified. Endometrial thickness 10 mm including the sonolucency. A minute hypoechoic collection adjacent to the gestational sac measures 3 x 4 x 2 mm compatible with a tiny perigestational hemorrhage. Estimated delivery date (BALAJI): 02/24/2025 by mean sac diameter. Uterus: 8.5 x 5.1 x 4.8 cm, unremarkable. Cervix: Nabothian cyst. Right ovary: 2.2 x 1.9 x 1.7 cm (estimated volume 3.6 mL), unremarkable. Left ovary: 3.0 x 2.52.4 cm (estimated volume 9.7 mL). Likely corpus luteum measures 2.3 x 2.2 x 1.8 cm. Other: No visualized pelvic free fluid. US/Transvaginal w/Preg US IMPRESSION: 1. Suspect an extremely early intrauterine gestational sac with mean sac diamet er 6 mm corresponding to 5 weeks 2 days and possible tiny pole measuring 2 mm, too small for estimation of gestationa l age, and without detectable cardiac activity however this may be on account of tiny size. Recommend close clinical and imag ing follow-up including serial beta hCG and pelvic ultrasound in 7-14 days for confirmation and to confirm viability. 2. Suspected minute 4 mm perigestational hemorrhage may account for reported ab normal bleeding. Attention on follow-up. 3. Additional description as above. Reading Location: [id number]
== END | disposition home or self-care (01) ==
LOC: US 15:54
PROVIDERS: PCP Family Medicine; Referring Provider Obstetrics & Gynecology; Visit Provider Obstetrics & Gynecology
DX: O20.9 Hemorrhage in early pregnancy, unspecified (principal); Z3A.00 Weeks of gestation of pregnancy not specified
CPT/HCPCS: 76817

== ENCOUNTER → 2024-06-27 | Outpatient (CLI) | payer OTHER, SELFPAY ==
[2024-06-27 16:07] LABS: hCG Titer Quant., Serum 5354 mIU/mL (<9 non-preg)
== END | disposition home or self-care (01) ==
LOC: LAB 14:49
PROVIDERS: PCP Family Medicine; Referring Provider Obstetrics & Gynecology; Visit Provider Obstetrics & Gynecology
DX: O20.9 Hemorrhage in early pregnancy, unspecified (principal); Z3A.00 Weeks of gestation of pregnancy not specified
CPT/HCPCS: 84702

== ENCOUNTER → 2024-07-02 | Outpatient (CLI) | payer OTHER, SELFPAY ==
--- NOTE | 2024-07-02 16:27 | US_ITS ---
PROCEDURE: TRANSVAGINAL W/PREG US (USTVAGP), 07/02/2024. Reportedly, 5 weeks 5 days by previously established dates with BALAJI 02/27/2025. REASON FOR EXAM: VIABILITY TECHNIQUE: Grayscale and color/spectral doppler transvaginal pelvic ultrasound was performed with attention to the uterus and associated early gestation. COMPARISON: 06/25/2024 FINDINGS: A single intrauterine gestational sac is identified with mean sac diameter 14 mm corresponding to 6 weeks 2 days. Previously suspected tiny perigestational hemorrhage is not visualized. Suspect a minute 2.6 mm pole corresponding to 6 weeks 1 day. Yolk sac: Present. Cardiac activity: Present, 101 beats per minute. Estimated delivery date (BALAJI): 02/24/2025 by [facility]. Uterus: Otherwise unremarkable, 9.6 x 6.4 x 4.7 cm. Cervix: Unremarkable. Right ovary: 3.4 x 1.7 x 1.3 cm, unremarkable. Left ovary: 3.0 x 2.5 x 2.2 cm. 2.0 x 1.8 x 1.6 cm likely corpus luteum. Other: No significant visualized pelvic free fluid. US/Transvaginal w/Preg US IMPRESSION: 1. Single live intrauterine gestation with an estimated gestational age of 6 we eks 1 days corresponding to BALAJI 02/24/2025. This is compatible with reported previously established dates. 2. Borderline mild bradycardia could be due to very early gestation. Rec ommend clinical follow-up. Additionally recommend routine complete anatomic survey at 20 weeks. 3. Additional description as above. Reading Location: [id number]
== END | disposition home or self-care (01) ==
LOC: US 16:26
PROVIDERS: PCP Family Medicine; Referring Provider Obstetrics & Gynecology; Visit Provider Obstetrics & Gynecology
DX: O20.9 Hemorrhage in early pregnancy, unspecified (principal); Z3A.00 Weeks of gestation of pregnancy not specified
CPT/HCPCS: 76817

== ENCOUNTER → 2024-07-20 | Outpatient (CLI) | payer OTHER, SELFPAY ==
[2024-07-23 07:07] LABS: Chlamydia By Nucleic Acid AMP Negative (Negative); Gonococcus By Nucleic Acid AMP Negative (Negative)
== END | disposition home or self-care (01) ==
PROVIDERS: PCP Family Medicine; Visit Provider Obstetrics & Gynecology
DX: O09.90 Supervision of high risk pregnancy, unspecified, unspecified trimester (principal); Z3A.00 Weeks of gestation of pregnancy not specified
CPT/HCPCS: 87086; 87088; 87491; 87591

== ENCOUNTER → 2024-07-31 | Outpatient (CLI) | payer OTHER, SELFPAY ==
[2024-07-31 12:08] LABS: Absolute Neutrophil Count 3.9 X10^3/uL (2.0-7.7); Basophil# 0.03 X10^3/uL; Basophil% 0.4 % (0-1); Eosinophil# 0.59 X10^3/uL; Eosinophils% 8.3 % (0-5); Hematocrit 37.1 % (37-47); Hemoglobin 12.8 g/dL (12.0-15.0); Lymphocyte % 29.6 % (19-41); Mean Corp Hgb Conc 34.5 g/dL (32-36); Mean Corpuscular Hgb 32.9 pg (27.0-32.0); Mean Corpuscular Volume 95.4 fL (81-99); Mean Platelet Vol. 9.5 fl (6.2-12.0); Monocyte# 0.44 X10^3/uL; Monocyte% 6.2 % (0-10); NRBC Flagged by Analyzer 0 % (0-5); Neutrophil # 3.92 X10^3/uL (2.7-7.7); Neutrophil % 55.2 % (47-70); Platelet Count 277 K/mm3 (150-450); RBC Distribution Width CV 11.6 % (11.6-14.6); RBC Distribution Width SD 40.3 fl (35.1-43.9); Red Blood Count 3.89 M/mm3 (4.2-5.4); White Blood Count 7.1 K/mm3 (4.4-11.0)
[2024-07-31 13:48] LABS: HIV Nonreactive (Nonreactive); Hepatitis B Surface Antigen Nonreactive (Nonreactive); Hepatitis C Antibody Nonreactive (Nonreactive); Rubella IgG REAC (Nonreactive); Syphilis Antibodies Nonreactive (Nonreactive)
== END | disposition home or self-care (01) ==
PROVIDERS: PCP Family Medicine; Referring Provider Obstetrics & Gynecology; Visit Provider Obstetrics & Gynecology
DX: Z34.81 Encounter for supervision of other normal pregnancy, first trimester (principal); Z31.430 Encounter of female for testing for genetic disease carrier status for procreative management
CPT/HCPCS: 36415; 85025; 86703; 86762; 86780; 86803; 86850; 86900; 86901; 87340

== ENCOUNTER → 2024-10-08 | Outpatient (CLI) | payer OTHER, SELFPAY | END | disposition home or self-care (01) | PROVIDERS: PCP Family Medicine; Referring Provider Obstetrics & Gynecology; Visit Provider Obstetrics & Gynecology | DX: Z36.9 Encounter for antenatal screening, unspecified (principal) | CPT/HCPCS: 36415 ==

== ENCOUNTER → 2024-12-01 | Outpatient (CLI) | payer OTHER, SELFPAY ==
[2024-12-01 12:18] LABS: Hematocrit 34.9 % (37-47); Hemoglobin 11.9 g/dL (12.0-15.0); Immature Granulocytes Count 0.030 X10^3/uL (0.0-0.0); Mean Corp Hgb Conc 34.1 g/dL (32-36); Mean Corpuscular Volume 97.2 fL (81-99); Mean Platelet Vol. 10.0 fl (6.2-12.0); NRBC Flagged by Analyzer 0 % (0-5); Platelet Count 249 K/mm3 (150-450); RBC Distribution Width CV 12.1 % (11.6-14.6); RBC Distribution Width SD 43.2 fl (35.1-43.9); Red Blood Count 3.59 M/mm3 (4.2-5.4); White Blood Count 8.1 K/mm3 (4.4-11.0)
[2024-12-01 13:19] LABS: HIV Nonreactive (Nonreactive); Syphilis Antibodies Nonreactive (Nonreactive)
[2024-12-01 13:30] LABS: Glucose Challenge Gest 1H 50g 130 mg/dL (70-140)
== END | disposition home or self-care (01) ==
PROVIDERS: PCP Family Medicine; Referring Provider Advanced Practice Midwife; Visit Provider Advanced Practice Midwife
DX: O09.92 Supervision of high risk pregnancy, unspecified, second trimester (principal); Z3A.24 24 weeks gestation of pregnancy; Z13.1 Encounter for screening for diabetes mellitus
CPT/HCPCS: 36415; 82950; 85025; 86703; 86780

== ENCOUNTER → 2025-02-01 | Outpatient (CLI) | payer OTHER, SELFPAY ==
--- OUTSIDE RECORDS SUMMARY | 2025-02-01 18:00 | XMS RPT_ITS | CCD ---
Author Organization [facility] Care Team Providers Care Process Description Writer Name Role Phone Ana Rosa Wallace IIIand Mingo Primary Care Physician [phone] Ziol HEEL REDUCER.Yana KAUFMAN Primary Care Provider Elio HEEL REDUCER.Yana KAUFMAN Primary Care Provider Elio HEEL REDUCER.Yana KAUFMAN Primary Care Provider [phone] Thomas Salinas MD Primary Care Provider Thomas Salinas MD Primary Care Provider Thomas Salinas MD Primary Care Provider AGNES MATTHEWS Referring Unavailable THOMAS SALINAS Primary Care Unavailabl e HABBOUB, KONSTANTIN Admitting Unavailable HABBOUB, KONSTANTIN Attending Unavailable SELINA BALLARDET Ioana Primary Care Unavailable HABBOUB, KONSTANTIN Admitting Unavailable HABBOUB, KONSTANTIN Attending Unavailable THOMAS SALINAS Primary Care Unavailabl e THOMAS SALINAS Primary Care Unavailabl e HABBOUB, KONSTANTIN Referring Unavailable HABBOUB, KONSTANTIN Attending Unavailable THOMAS SALINAS Primary Care Unavailabl e HABBOUB, KONSTANTIN Attending Unavailable THOMAS SAILNAS Primary Care Unavailabl e HABBOUB, KONSTANTIN Attending Unavailable THOMAS SALINAS Primary Care Unavailabl e HABBOUB, KONSTANTIN Attending Unavailable THOMAS SALINAS Primary Care Unavailabl e NEHEMIAS SUAREZ Attending Unavailable HABBOUB, KONSTANTIN Referring Unavailable THOMAS SALINAS Primary Care Unavailabl e HABBOUB, KONSTANTIN Referring Unavailable HABBOUB, KONSTANTIN Referring Unavailable GRABENSTETTER, THOMAS F Primary Care Unavailabl e GRABENSTETTER, THOMAS F Primary Care Unavailabl e NEHEMIAS SUAREZ Attending Unavailable HABBOUB, KONSTANTIN Referring Unavailable GRABENSTETTER, THOMAS F Primary Care Unavailabl e NEHEMIAS SUAREZ Attending Unavailable HABBOUB, KONSTANTIN Referring Unavailable GRABENSTETTER, THOMAS F Primary Care Unavailabl e HABBOUB, KONSTANTIN Referring Unavailable GRABENSTETTER, THOMAS F Primary Care Unavailabl e NEHEMIAS SUAREZ Attending Unavailable HABBOUB, KONSTANTIN Referring Unavailable GRABENSTETTER, THOMAS F Primary Care Unavailabl e HABBOUB, KONSTANTIN Referring Unavailable GRABENSTETTER, THOMAS F Primary Care Unavailabl e NEHEMIAS SUAREZ Attending Unavailable HABBOUB, KONSTANTIN Referring Unavailable GRABENSTETTER, THOMAS F Primary Care Unavailabl e NEHEMIAS SUAREZ Attending Unavailable HABBOUB, KONSTANTIN Referring Unavailable GRABENSTETTER, THOMAS F Primary Care Unavailabl e MAGDA SCOTT Attending Unavailabl e GRABENSTETTER, THOMAS F Primary Care Unavailabl e NEHEMIAS SUAREZ Attending Unavailable HABBOUB, KONSTANTIN Referring Unavailable GRABENSTETTER, THOMAS F Primary Care Unavailabl NEHEMIAS Leonardo Attending Unavailable HABBOUB, KONSTANTIN Referring Unavailable NEHEMIAS SUAREZ Attending Unavailable GRABENSTETTER, THOMAS F Primary Care Unavailabl e HABBOUB, KONSTANTIN Referring Unavailable HABBOUB, KONSTANTIN Referring Unavailable GRABENSTETTER, THOMAS F Primary Care Unavailabl NEHEMIAS Leonardo Attending Unavailable HABBOUB, KONSTANTIN Referring Unavailable GRABENSTETTER, THOMAS F Primary Care Unavailabl e NEHEMIAS SUAREZ Attending Unavailable HABBOUB, KONSTANTIN Referring Unavailable GRABENSTETTER, THOMAS F Primary Care Unavailabl e GRABENSTETTER, THOMAS F Primary Care Unavailabl e GRABENSTETTER, THOMAS F Primary Care Unavailabl e Dr. Royce Chapin DO Attending Provider [phone] Dr. Royce Chapin DO Emergency Provider Brad WHITAKER, Dr. Machado Primary Care Provider Jamila WHITAKER, Dr. Hall Attending Provider [phone] Jamila WHITAKER, Dr. Hall Referring Provider [phone] Brad WHITAKER, Dr. Machado Referring Provider Macon BIOCHEMICAL ENGINEER-C, Barbie Attending Provider [place]on BIOCHEMICAL ENGINEER-C, Barbie Referring Provider [phone] Juyd Worthington DO, Dr. Wolf Attending Provider Judy Worthington DO, Dr. Wolf Referring Provider Thuan RN, Renay Attending Provider [facility] ioana Salinas MD, Dr. Machado Primary Care Provider Brad WHITAKER, Dr. Machado Referring Provider [phone] Paula BIOCHEMICAL ENGINEER-C, Barbie Attending Provider [phone] Juan ARRIAGA, Ximena Attending Provider [phone] THOMAS SALINAS F Primary Care Unavaileast [facility] VY MICHAUD Attending Unavailable XIMENA MCGHEE S Referring Unavailable Jamila WHITAKER, Dr. Hall Attending Provider Jamila WHITAKER, Dr. Hall Referring Provider [phone] Brad WHITAKER, Dr. Machado Primary Care Provider Judy Worthington DO, Dr. Wolf Attending Provider Judy Worthington DO, Dr. Wolf Referring Provider Brad WHITAKER, Dr. Machado Primary Care Provider Brad WHITAKER, Dr. Machado Referring Provider [phone] Ximena Mcghee CNM Referring Provider [phone] Brad WHITAKER, Dr. Machado Primary Care Provider Brad WHITAKER, Dr. Machado Referring Provider Paula BIOCHEMICAL ENGINEER-C, Barbie Attending Provider [phone] Judy Worthington DO, Dr. Wolf Attending Provider Brad WHITAKER, Dr. Machado Primary Care Provider Brad WHITAKER, Dr. Machado Referring Provider [phone] Paula BIOCHEMICAL ENGINEER-CBarbie Attending Provider [phone] Brad WHITAKER, Dr. Machado Primary Care Physicia n Jamila WHITAKER, Dr. Hall Attending Physician Brad WHITAKER, Dr. Machado Referring Provider Ximena Mcghee CNM Attending Physician [phone] Paula BIOCHEMICAL ENGINEER-CBarbie Attending Physician [phone] Maryann Bajwa DO Attending Physician Maryann Bajwa Attending Unavailabl e Vande VeldeMaryann Referring Unavailabl e Grabenstetter, Thomas Primary Care Unavailable Maryann Bajwa Attending Unavailabl e Vande VeldeMaryann Referring Unavailabl e Grabenstetter, Thomas Primary Care Unavailable Royce Chapin Attending Unavailable Grabenstetter, Thomas Primary Care Unavailable Maryann Bajwa Attending Unavailabl e Vande VeldeMaryann Referring Unavailabl e Grabenstetter, Thomas Primary Care Unavailable Ximena Mcghee Attending Unavailable Grabenstetter, Thomas Referring Unavailable Grabenstetter, Thomas Primary Care Unavailable Renay Larose Attending Unavailable Grabenstetter, Thomas Primary Care Unavailable Paula BIOCHEMICAL ENGINEERBarbie Attending Unavailable Grabenstetter, Thomas Primary Care Unavailable Grabenstetter, Thomas Referring Unavailable Grabenstetter, Thomas Primary Care Unavailable Ximena Mcghee Attending Unavailable Grabenstetter, Thomas Referring Unavailable VandMaryann Uribe Attending Unavailabl e Vande VeldeMaryann Referring Unavailabl e Grabenstetter, Thomas Primary Care Unavailable Vande Maryann Worthington Attending Unavailabl e Vande VeldeMaryann Referring Unavailabl e Grabenstetter, Thomas Primary Care Unavailable Macon BIOCHEMICAL ENGINEERBarbie Referring Unavailable [place]on BIOCHEMICAL ENGINEER, Barbie Attending Unavailable Grabenstetter, Thomas Primary Care Unavailable Ximena Mcghee Attending Unavailable Ximena Mcghee Referring Unavailable Grabenstetter, Thomas Primary Care Unavailable Paula BIOCHEMICAL ENGINEER, Barbie Attending Unavailable Grabenstetter, Thomas Primary Care Unavailable Grabenstetter, Thomas Referring Unavailable Paula BIOCHEMICAL ENGINEER, Barbie Attending Unavailable Grabenstetter, Thomas Referring Unavailable Grabenstetter, Thomas Primary Care Unavailable Maryann Bajwa Attending Unavailabl e Grabenstetter, Thomas Referring Unavailable Grabenstetter, Thomas Primary Care Unavailable Isabel Marino Attending Unavailable Grabenstetter, Thomas Referring Unavailable Grabenstetter, Thomas Primary Care Unavailable Isabel Marino Attending Unavailable Grabenstetter, Thomas Primary Care Unavailable Isabel Marino Referring Unavailable MarcanthonyIsabel Referring Unavailable Isabel Marino Attending Unavailable Grabenstetter, Thomas Primary Care Unavailable Isabel Marino Attending Unavailable Isabel Marino Referring Unavailable Grabenstetter, Thomas Primary Care Unavailable Maryann Bajwa Attending Unavailabl e Vande VelMaryann andino Referring Unavailabl e Grabenstetter, Thomas Primary Care Unavailable Grabenstetter, Thomas Referring Unavailable Grabenstetter, Thomas Primary Care Unavailable Ximena Mcghee Attending Unavailable Maryann Bajwa Attending Unavailabl e Grabenstetter, Thomas Referring Unavailable Grabenstetter, Thomas Primary Care Unavailable Paula BIOCHEMICAL ENGINEER, Barbie Attending Unavailable Grabenstetter, Thomas Referring Unavailable Grabenstetter, Thomas Primary Care Unavailable Isabel Marino Attending Unavailable Grabenstetter, Thomas Referring Unavailable Grabenstetter, Thomas Primary Care Unavailable Ximena Mcghee Attending Unavailable Grabenstetter, Thomas Referring Unavailable Grabenstetter, Thomas Primary Care Unavailable Paula BIOCHEMICAL ENGINEER, Barbie Attending Unavailable Grabenstetter, Thomas Referring Unavailable Grabenstetter, Thomas Primary Care Unavailable Maryann Bajwa Attending Unavailabl e Vande VeldeMaryann Referring Unavailabl e Grabenstetter, Thomas Primary Care Unavailable Maryann Bajwa Attending Unavailabl e Grabenstetter, Thomas Primary Care Unavailable Allergies Allergy Classification Reported Allergen(s) Allergy Type Date of Onset Reaction(s) Facility (17 sources) Amoxicillin; Translations: [amoxicillin] Drug Allergy 4 Hives, Rash [facility] (20 sources) Shellfish; Translations: [shellfish] Drug allergy 3 Swelling, Shortness of Breath [facility] (9 sources) Penicillins; Translations: [PENICILLINS] Drug Intolerance 3 [facility] (20 sources) Penicillins Drug Intolerance 3 [facility] (20 sources) Vancomycin; Translations: [VANCOMYCIN] Drug Allergy 2 Itching [facility] (17 sources) Penicillins Allergy to substance 2 hives, breathing issues [facility] (18 sources) Shellfish; Translations: [shellfish derived] Allergy to substance 2 hives [facility] (1 source) Amoxicillin Drug Allergy 5 [facility] (1 source) Penicillins Drug allergy (disorder) 5 [facility] (1 source) Vancomycin Drug Allergy 5 [facility] Medications Current Medications Medication Drug Class(es) Dates Sig (Normalized) Sig (Original) docosahexaenoic acid 200 mg oral capsule (20 sources) Start: 01-20-2024 End: 04-01-2024 take 1 capsule by mouth once daily Docosahexaenoic Acid ( Dha) 200 mg capsule Active 200 mg PO DAILY April 01, 2024 1:00am Complies with drug therapy Lidoderm 5% topical film (1 source) Start: 09-13-2021 Lidoderm 5% topical film 1 patch(es), Topical, Daily, 7 EA, Refill(s) 0, apply 12 hours on and 12 hours off daily Start Date: 09/13/21 Status: Ordered Magnesium (5 sources) Start: 12-01-2024 take 1 tablet by mouth once daily Magnesium 200 mg tablet Active 200 mg PO daily December 01, 2024 12:00am Complies with drug therapy Start: 12-01-2024 take 1 tablet by rodney once daily Magnesium 200 mg tablet Active 200 mg PO daily December 01, 2024 12:00am methylPREDNISolone (20 sources) Corticosteroid Start: 03-12-2022 End: 03-18-2022 methylPREDNISolone (MEDROL, KAM,) 4 mg Dose-Pack As instructed per package 1 tablet 0 03/12/2022 03/18/2022 Active Start: 01-31-2022 End: 03-05-2022 methylPREDNISolone (MEDROL D OSE-PACK) 4 mg Dose-Pack As Instructed per package 1 tablet 0 01/31/2022 03/05/2022 Discontinued Start: 01-31-2022 methylPREDNISo lone (MEDROL DOSE-PACK) 4 mg Dose-Pack As Instructed per package 1 tablet 0 01/31/2022 Active Start: 11-16-2021 End: 01-31-2022 methylPREDNISolone (MEDROL D OSE-PACK) 4 mg Dose-Pack As Instructed per package 1 Package 0 11/16/2021 01/31/2022 Discontinued Start: 11-16-2021 methylPREDNISo lone (MEDROL DOSE-PACK) 4 mg Dose-Pack As Instructed per package 1 Package 0 11/16/2021 Active take 1 tablet by rodney once daily methylPREDNISolone (MEDROL) 16 mg tablet Take 16 mg by mouth once daily. 0 Active Comment on above: As Instructed per esperanza sawantage Take 16 mg by mouth once daily. mupirocin 0.02 mg/mg topical ointment (4 sources) RNA Synthetase Inhibitor Antibacterial Start: 2 End: 2 mupirocin (BACTROBAN) 2 % ointment Apply 1/2 ointment with a cotton swab in each nostril 2x daily for five days preop 22 g 0 12/14/2021 12/18/2021 Active Comment on above: Apply 1/2 ointment with a cotton swab in each nostril 2x daily for five days preop ondansetron 4 mg oral tablet (10 sources) Serotonin-3 Receptor Antagonist Start: 5 take 1 tablet by mouth every six hours Ondansetron Hcl 4 mg tablet Active 4 mg PO EVERY 6 HOURS 30 3 July 20, 2024 12:00am Complies with drug therapy predniSONE 50 mg oral tablet (12 sources) Start: 2 End: 2 take 1 tablet by mouth once daily predniSONE 50 mg Tab 50 mg = 1 tab(s), Oral, Daily, X 5 day(s), # 5 tab(s), Refills(s) 0 Start Date: 09/13/21 Stop Date: 09/18/21 Status: Ordered Comment on above: Take 50 mg by mouth once daily. sertraline 50 mg oral tablet (4 sources) Serotonin Reuptake Inhibitor Start: take 1 tablet by mouth once daily Sertraline (Zoloft) 50 mg tablet Active 50 mg PO daily 30 December 03, 2024 12:00am Anxiety Anxiety disorder, unspecified Complies with drug therapy Completed/Discontinued Medications Medication Drug Class(es) Dates Sig (Normalized) Sig (Original) acetaminophen 500 mg oral capsule (20 sources) take 2 capsules by mouth every six hours as needed Acetaminophen 500 mg cap Take 1,000 mg by mouth every 6 hours as needed for pain. 0 Active Comment on above: Take 1,000 mg by rodney th every 6 hours as needed for pain. acetaminophen 300 mg / butalbital 50 mg / caffeine 40 mg oral capsule (17 sources) Barbiturate, Central Nervous System Stimulant, Methylxanthine Start: 08-17-2020 End: 10-02-2021 Butalbital-Acetami nophen-Caff (Fioricet) 50-300-40 mg capsule Discontinued 1 NMA PO EVERY 6 HOURS as needed for pain 14 0 August 17, 2020 12:00am October 02, 2021 10:53am acetaminophen 300 mg / HYDROcodone bitartrate 5 mg oral tablet (20 sources) Opioid Agonist Start: 10-02-2021 End: 10-04-2022 Hydrocodone-Acetam inophen 5-300 mg tablet Discontinued 1 {tbl} PO TWICE A DAY as needed 0 October 02, 2021 12:00am October 04, 2022 2:01pm Start: 10-02-2021 take 1 tablet by rodney th twice daily Hydrocodone-Acetaminophen Active 1 TABLE T PO TWICE A DAY October 02, 2021 12:00am Start: 09-19-2021 End: 11-15-2021 take 1 tablet by mouth every eight hours as needed for pain HYDROcodone-acetaminophen (NORCO) 5-325 mg per tablet Indications: Spinal stenosis of lumbar region without neurogenic claudication Take 1 tablet by mouth every 8 hours as needed for pain. 21 tablet 0 10/07/2021 11/15/2021 Discontinued Start: 09-13-2021 End: 09-19-2021 [place] 325 mg-5 mg oral table t 1 tab(s), Oral, q6hr for pain, 12 tab(s), Refill(s) 0 Start Date: 09/13/21 Status: Ordered Comment on above: Take 1 tablet by rodney th every 8 hours as needed for pain. Take 1 tablet by rodney th every 6 hours as needed for pain. acetaminophen 325 mg / oxyCODONE hydrochloride 5 mg oral tablet (20 sources) Opioid Agonist Start: 2 take 1 tablet by mouth every eight hours as needed for pain oxyCODONE-acetaminophen (PERCOCET) 5-325 mg tablet Indications: Intervertebral disc disorder with radiculopathy of lumbar region Take 1 tablet by mouth every 8 hours as needed for pain (for pain.). 24 tablet 0 03/20/2022 Active Start: 01-08-2022 End: 03-20-2022 take 1 tablet by mouth every four hours as needed for pain oxyCODONE-acetaminophen (PERCOCET) 5-325 mg tablet Indications: Lumbar herniated disc Take 1 tablet by mouth every 4 hours as needed for pain (for pain.). 24 tablet 0 01/08/2022 03/20/2022 Discontinued Start: 12-19-2021 take 1 tablet by rodney th every four hours as needed for pain oxyCODONE-acetaminophen (PERCOCET) 5-325 mg tablet Indications: Lumbar herniated disc Take 1 tablet by mouth every 4 hours as needed for pain (for pain.). 24 tablet 0 12/19/2021 Active Comment on above: Take 1 tablet by rodney th every 4 hours as needed for pain (for pain.). Take 1 tablet by rodney th every 8 hours as needed for pain (for pain.). biotin 1 mg oral capsule (16 sources) Start: 10-05-19 23 End: 01-20-20 24 take 1 capsule by mouth once daily Biotin 1 mg capsule Discontinued 1 mg PO DAILY October 04, 2022 12:00am January 20, 2024 2:19pm cyclobenzaprine hydrochloride 10 mg oral tablet (3 sources) Muscle Relaxant Start: 11-16-19 End: 11-21-19 take 1 tablet by mouth every eight hours as needed cyclobenzaprine (FLEXERIL) 10 mg tablet Take 1 tablet by mouth every 8 hours as needed for up to 5 days. 10 tablet 0 11/15/2021 11/20/2021 Comment on above: Take 1 tablet by [facility] every 8 hours as needed for up to 5 days. docusate sodium 100 mg oral capsule (20 sources) Start: 03-20-20 take 1 capsule by mouth twice daily docusate sodium (COLACE) 100 mg capsule Take 1 capsule by mouth twice daily. 60 capsule 0 03/20/2022 Active Start: 12-19-2021 End: 03-05-2022 take 1 capsule by mouth twice daily docusate sodium (COLACE) 100 mg capsule Take 1 capsule by mouth twice daily. 50 capsule 0 12/19/2021 03/05/2022 Discontinued Comment on above: Take 1 capsule by [facility] twice daily. famotidine 20 mg oral tablet (20 sources) Histamine-2 Receptor Antagonist Start: 1 End: 1 take 1 tablet by mouth twice daily Famotidine (Pepcid) 20 mg tablet Discontinued 20 mg PO TWICE A DAY August 10, 2020 7:36pm November 09, 2020 11:39am indigestion gabapentin 300 mg oral capsule (20 sources) Anti-epileptic Agent Start: 2 End: 3 gabapentin (NEURONTIN) 300 mg capsule Take 1 capsule in the morning Take 1 capsule in the afternoon Take 2 capsules at bedtime 120 capsule 0 04/25/2022 Active Start: 11-06-2021 End: 12-06-2021 take 1 capsule by mouth once daily at bedtime gabapentin (NEURONTIN) 300 mg capsule Take 1 capsule by mouth daily at bedtime for 30 days. 30 capsule 2 11/06/2021 11/16/2021 Discontinued Start: 10-07-2021 End: 11-06-2021 take 1 capsule by mouth once daily at bedtime gabapentin (NEURONTIN) 100 mg capsule Take 1 capsule by mouth daily at bedtime for 30 days. 30 capsule 1 10/07/2021 11/06/2021 Discontinued Comment on above: Take 1 capsule by mo [facility] daily at bedtime for 30 days. Take 1 capsule by mo [facility] three times daily for 30 days. Take 1 capsule in morning Take 1 capsule in the afternoon Take 2 capsules at bedtime ibuprofen 200 mg oral capsule (17 sources) Nonsteroidal Anti-inflammatory Drug Start: 10-03-19 End: 10-05-19 take 1 capsule by mouth every six hours as needed Ibuprofen 200 mg capsule Discontinued 200 mg PO EVERY 6 HOURS as needed October 02, 2021 12:00am October 04, 2022 2:01pm lactobacillus acidophilus 1.5 mg oral capsule (16 sources) Start: 04-01-20 End: 07-04-19 Lactobacillus Acidophilus (Probiotic Acidophilus) 250 million cell capsule Discontinued 500 NMA PO DAILY April 01, 2024 1:00am July 03, 2024 1:08pm levonorgestrel 0.403853 mg/hr intrauterine system (20 sources) Progestin, Progestin-containing Intrauterine Device Start: 10-03-19 End: 01-20-20 Levonorgestrel (Liletta) 20.1 mcg/24 hrs (6 yrs) 52 mg intrauterine device Discontinued 1 NMA INTRA-UTER ONCE October 02, 2021 12:00am January 20, 2024 2:19pm as a single dose Start: 10-02-2021 Levonorgestrel (Liletta) 20.1 mcg/24 hrs (6 yrs) 52 mg intrauterine device Active 1 DEVICE INTRA-UTER ONCE October 02, 2021 12:00am as a single dose levonorgestrel ( MIRENA) 20 mcg/24 hours (7 yrs) 52 mg IUD 1 Each by INTRAUTERINE route one time only. Placed September 2020 0 Active Comment on above: 1 Each by INTRAUTERI NE route one time only. Placed September 2020 lidocaine 0.05 mg/mg medicated patch (13 sources) Antiarrhythmic, Amide Local Anesthetic Start: 09-20-19 End: 11-16-19 apply 1 dose transdermal route every twenty-four hours lidocaine (LIDODERM) 5 % Apply 1 Patch as directed every 24 hours. 10 Patch 0 10/07/2021 11/15/2021 Discontinued End: 09-19-2021 apply 1 dose transdermal route every twelve hours lidocaine (LIDODERM) 5 % Apply 1 Patch as directed every 12 hours. 0 09/19/2021 Discontinued Comment on above: Apply 1 Patch as dir ected every 24 hours. Apply 1 Patch as dir ected every 12 hours. magnesium oxide 400 mg oral tablet (19 sources) Start: 2 End: 2 take 1 tablet by mouth once daily magnesium oxide (MAG-OX) 400 mg (241.3 mg magnesium) tablet Take 1 tablet by mouth once daily for 7 days. 7 tablet 0 11/15/2021 03/05/2022 Discontinued Comment on above: Take 1 tablet by rodney once daily for 7 days. methocarbamol 750 mg oral tablet (20 sources) Muscle Relaxant Start: 2 End: 3 take 1 tablet by mouth three times daily as needed methocarbamol (ROBAXIN-750) 750 mg tablet Take 1 tablet by mouth three times daily as needed. 40 tablet 0 04/25/2022 Active Start: 10-02-2021 End: 10-04-2022 take 1 tablet by mouth at bedtime Methocarbamol 500 mg tablet Discontinued 500 mg PO AT BEDTIME October 02, 2021 12:00am October 04, 2022 2:01pm Start: 09-13-2021 End: 09-19-2021 take 1 tablet by mouth every eight hours as needed methocarbamol (ROBAXIN) 500 mg tablet Take 1 tablet by mouth three times daily as needed. 30 tablet 1 09/19/2021 Active Comment on above: Take 1 tablet by rodney three times daily as needed. Take 500 mg by mouth three times daily as needed. Take 1 tablet by rodney three times daily. metoclopramide 10 mg oral tablet (17 sources) Dopamine-2 Receptor Antagonist Start: 2020 End: 2020 take 1 tablet by mouth every six hours as needed for headache Metoclopramide Hcl (Reglan) 10 mg tablet Discontinued 10 mg PO EVERY 6 HOURS as needed for headache 20 0 August 17, 2020 12:00am November 09, 2020 11:39am metroNIDAZOLE 0.0075 mg/mg vaginal gel (1 source) Nitroimidazole Antimicrobial Start: 2021 End: 2021 metroNIDAZOLE (METROGEL VAGINAL) 0.75 % Vaginal Gel Use 1 Applicator vaginally twice daily. 70 g 0 06/12/2021 09/19/2021 Discontinued Comment on above: Use 1 Applicator vag inally twice daily. Multivitamin tablet (16 sources) Start: 2022 End: 2023 Multivitamin tablet Discontinued 1 {tbl} PO DAILY October 04, 2022 12:00am January 20, 2024 2:19pm naproxen 250 mg oral tablet (17 sources) Nonsteroidal Anti-inflammatory Drug Start: 2020 End: 2020 take 250-500 mg by mouth every eight hours as needed for pain Naproxen 250 MG tablet Discontinued 250 - 500 mg PO EVERY 8 HOURS NEEDED as needed for MILD PAIN 30 August 12, 2020 12:00am September 23, 2020 11:15am microencapsulated potassium chloride 20 meq extended release oral tablet (4 sources) Start: 2021 End: 2021 take 1 tablet by mouth once daily potassium chloride ER (K-DUR, KLOR-CON) 20 mEq tablet Take 1 tablet by mouth once daily for 7 days. 7 tablet 0 11/15/2021 11/22/2021 Comment on above: Take 1 tablet by rodney once daily for 7 days. POTASSIUM-99 ORAL (20 sources) POTASSIUM-99 ORA L Take by mouth as needed. 0 Active Comment on above: Take by mouth as nee ded. Qbscuabe-Obs-Lg-Fa (1 source) Start: 2020 End: 2020 take 1 tablet by mouth once daily Nqxsrijl-Dxc-Xe-Fa Discontinued 1 TABLET PO DAILY August 10, 2020 12:00am November 09, 2020 11:39am Niiuysix-Ltp-Uz-Fa 1 mg Tablet (16 sources) Start: 2020 End: 2020 take 1 tablet by mouth once daily Isjbbfcz-Wpq-Ux-Fa 1 mg Tablet Discontinued 1 {tbl} PO DAILY August 10, 2020 12:00am November 09, 2020 11:39am Start: 08-10-2020 End: 11-09-2020 take 1 tablet by mouth once daily Jmcpfvfm-Cml-Bp-Fa 1 mg Tablet Discontinued 1 {tbl} PO DAILY August 10, 2020 12:00am November 09, 2020 11:39am Problems Active Problems Problem Classification Problem Date Documented Da te Episodic/Chronic Anxiety disorders (17 sources) Anxiety; Translations: [Anxiety disorder, unspecified] Onset: 01-26-2025 12-01-2024 Chronic Comment on above: discussed counseling /meds. She will consider. discussed counseling /meds. Zoloft very helpful Cardiac dysrhythmias (1 source) Tachycardia, unspecified; Translations: [Sinus tachycardia] Onset: 05-16-2023 Episodic Contraceptive and procreative management (1 source) Intrauterine contraceptive device in situ; Translations: [Presence of (intrauterine) contraceptive device] 10-02-2021 Episodic Fluid and electrolyte disorders (2 sources) Hypokalemia; Translations: [Hypokalemia] Episodic Immunizations and screening for infectious disease (1 source) Encounter for immunization; Translations: [Encounter for immunization] Onset: 12-15-2024 Episodic Menstrual disorders (17 sources) Amenorrhea; Translations: [Amenorrhea, unspecified] Onset: 06-30-2024 06-16-2024 Chronic Comment on above: HCGx2 Other complications of (20 sources) H/O: miscarriage; Translations: [Supervision of with other poor reproductive or obstetric history, unspecified trimester] 07-03-2024 Episodic Comment on above: March 2024 Other complications of (20 sources) High risk ; Translations: [Supervision of high risk , unspecified, unspecified trimester] 07-03-2024 Episodic Comment on above: ; BALAJI 02/24/25; PC: Janie; : Aden PRR,; BALAJI ; PC: Janie; : Aden PRR,; BALAJI ; surprise PC: Janie; : Aden Other complications of (1 source) Supervision of high risk , unspecified, second trimester; Translations: [Supervision of high risk , unspecified, second trimester] Onset: 01-26-2025 Episodic Other gastrointestinal disorders (1 source) Diarrhea; Translations: [Diarrhea, unspecified] 07-27-2023 Episodic Other nervous system disorders (1 source) Other chronic pain; Translations: [Chronic bilateral low back pain with right-sided sciatica] Onset: 04-20-2022 Chronic Other nutritional; endocrine; and metabolic disorders (2 sources) Hypomagnesemia; Translations: [Hypomagnesemia] Chronic Residual codes; unclassified (1 source) Treatment not available; Translations: [Procedure and treatment not carried out for other reasons] Episodic Residual codes; unclassified (2 sources) Other specified health status; Translations: [Electronic cigarette use] Onset: 12-06-2021 Episodic Residual codes; unclassified (17 sources) Family history of cancer of colon; Translations: [Family history of malignant neoplasm of digestive organs] 08-04-2020 Episodic Comment on above: In her grandfather a nd uncle on her mother side. Genetic testing- negative Residual codes; unclassified (1 source) Flushing; Translations: [Flushing] Onset: 05-16-2023 Episodic Residual codes; unclassified (1 source) 35 weeks gestation of ; Translations: [35 weeks gestation of ] Onset: 01-26-2025 Episodic Residual codes; unclassified (1 source) 33 weeks gestation of ; Translations: [33 weeks gestation of ] Onset: 01-11-2025 Episodic Residual codes; unclassified (1 source) 31 weeks gestation of ; Translations: [31 weeks gestation of ] Onset: 12-28-2024 Episodic Residual codes; unclassified (1 source) 24 weeks gestation of ; Translations: [24 weeks gestation of ] Onset: 11-09-2024 Episodic Spondylosis; intervertebral disc disorders; other back problems (10 sources) Prolapsed lumbar intervertebral disc; Translations: [Other intervertebral disc displacement, lumbar region] Onset: 12-19-2021 Chronic Syncope (1 source) Syncope and collapse; Translations: [Near syncope] Onset: 05-16-2023 Episodic Past or Other Problems Problem Classification Problem Date Documented Da te Episodic/Chronic Hemorrhage during ; abruptio placenta; placenta previa (20 sources) Antepartum hemorrhage; Translations: [Hemorrhage in early , unspecified] Onset: 05-07-2024 06-25-2024 Episodic Comment on above: US, HCGX2 Other complications of (1 source) Supervision of with other poor reproductive or obstetric history, unspecified trimester; Translations: [Supervision of with other poor reproductive or obstetric history, unspecified trimester] Onset: 09-14-2024 Episodic Other complications of (1 source) Supervision of high risk , unspecified, unspecified trimester; Translations: [Supervision of high risk , unspecified, unspecified trimester] Onset: 07-23-2024 Episodic Other and delivery including normal (20 sources) ; Translations: [Encounter for supervision of normal , unspecified, unspecified trimester] Onset: 08-04-2024 04-09-2024 Episodic Comment on above: Discussed genetic/ca rrier testing - undecided; prior carrier testing done Discussed genetic/ca rrier testing - Desires both Discussed genetic/ca rrier testing - Desires both, NIPT low risk, gender not selected Discussed genetic/ca rrier testing - Desires both, NIPT low risk, gender not selected, nl anatomy Discussed genetic/ca rrier testing NIPT low risk, gender not selected, nl anatomy Other screening for suspected conditions (not mental disorders or infectious disease) (1 source) Encounter for screening, unspecified; Translations: [Encounter for screening, unspecified] Onset: 10-12-2024 Episodic Residual codes; unclassified (20 sources) No current problems or disability; Translations: [Other specified health status] Onset: 12-06-2021 Episodic Residual codes; unclassified (20 sources) Electronic cigarette user; Translations: [Other specified health status] Onset: 12-06-2021 Episodic Residual codes; unclassified (1 source) 20 weeks gestation of ; Translations: [20 weeks gestation of ] Onset: 10-12-2024 Episodic Residual codes; unclassified (1 source) 16 weeks gestation of ; Translations: [16 weeks gestation of ] Onset: 09-14-2024 Episodic Screening and history of mental health and substance abuse codes (20 sources) Ex-smoker; Translations: [Personal history of nicotine dependence] Onset: 10-12-2024 07-03-2024 Episodic Comment on above: Stopped 06/16/24 Spondylosis; intervertebral disc disorders; other back problems (20 sources) Sciatica; Translations: [Sciatica, unspecified side] Onset: 09-13-2021 Episodic Spontaneous (20 sources) Miscarriage; Translations: [Complete or unspecified spontaneous without complication] Onset: 05-06-2024 04-14-2024 Episodic Comment on above: 5wk. No intervention Results Test Name Value Interpretation Reference Range Facility Er Manager Office Visit Reporton 01-26-2025 Er Manager Office Visit Report [facility] [address], [address] [place] [address] OFFICE VISIT Date of Service: 01/26/25 MR#: [id number] Acct: [id number] Name: HANNAH HENDRICKS Rep #: [id number] : 1990 Provider: Dr. Isabel feldman MD Age/Sex: 34/F Location: [facility] [place] Status: Signed Intake Vital Signs 12/01/24 08:19 01/11/25 09:59 01/26/25 09:21 Height 5 ft 6 in 5 ft 6 in 5 ft 6 in Weight: 213 lb 2 oz BMI 34.4 BP 112/74 Intake Visit Reasons: 36 WK OB Balloon Sander Required: No Is patient in pain?: No Allergies amoxicillin Allergy (Intermediate, Verified 01/26/25 09:20) Rash vancomycin Allergy (Intermediate, Verified 01/26/25 09:20) Rash Penicillins Allergy (Mild, Verified 01/26/25 09:20) hives, breathing issues shellfish derived Allergy (Mild, Verified 01/26/25 09:20) hives Medications ???Medication ???Instructions ???Recorded ???Confirmed ???Type docosahexaenoic acid 200 mg 200 mg PO DAILY 04/01/24 01/26/25 History capsule ( DHA) ondansetron HCl 4 mg tablet 4 mg PO Q6H #30 tabs 07/20/2401/13 Rx magnesium 200 mg tablet 200 mg PO QDAY 12/01/24 01/26/25 H istory sertraline 50 mg tablet (Zoloft) 50 mg PO QDAY #30 tabs 12/03/24 Rx Last Menstrual Period: 05/23/24 Zika: Zika virus screening: Negative : No PFSH PFSH Medical History Spontaneous Herniated disc Endometritis following delivery Surgical History Previous back surgery Family History Uncle Colon cancer Liver cancer Grandfather Liver cancer Pancreatic cancer Uncle Diverticulitis Grandmother Heart disease Uncle Heart disease Social History adopted: No household members: spouse and children housing: house number of children: 1 current occupational status: employed current occupation: [employer] current occupational exposures/hazards: No pets and animals: Yes (Not managing litterbox) pets and animals: cat(s), dog(s) and other details: rabbit history of recent travel: No sexually active: Yes Smoking Status: Former smoker quit date: 06/16/24 how long ago did patient quit smokin06/16/24 second hand exposure: No quit status: quit date established alcohol intake: current alcohol intake frequency: a few times a month details: Not while substance use type: does not use well-balanced diet: daily or most days caffeine: Yes Type: coffee and tea eating out: 1-3 times/week during the past year weight has: remained stable what type of physical activity do you participate in: walking frequency: 3-4 times per week duration: 15-30 minutes/day agata/presybeterian: Nondenominational seatbelt use: always do you feel safe at home: Yes 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 Date Name GA/Weeks Outcome Route Bth Weight Infant Gen Labor Lgth Anesthesia Del Locatn Provider FOB 08/11/20 Janie 39 live - full term 7lbs 8.5oz Female epidural [facility] Dr. Quang Samaniego 03/15/24 4 spontaneous Delivery Date: 08/11/20 Last Updated by: Cherelle Reeder Induced HPI 36 WK OB Details: HANNAH HENDRICKS is a 34 year old who presents for routine OB visit. OB Visit BALAJI Calculator Estimated Delivery Date Method Current WG Current Estimate 02/24/25 Ultrasound #1 35w 6d Other Estimates 02/27/25 LMP (Certain) 35w 3d Expected Delivery Route/Plan Labor Preferences- CB/BF classes: no labor support person: Aden labor intervention preferences: [] pain management options preferred: epidural cut cord/dad catch: cord : yes PP control planned: discussed discussed possible routes of delivery and associated risks: [] special requests: [] Specific Issue/Plans Covid status: [] Flu vaccine: [] Tdap vaccine: given Rhogam: NA LARC form signed: yes Problem list reviewed and updated with the most current plan of care details and appropriate orders placed. Relevant counseling for the gestational age provided. Continue routine care and follow up unless otherwise noted in visit notes/problem list details Initial Weight: Not Recorded Date -???-???-???-???-???- ???-???-???-???-???-? ??-???- EGA Weight BP Urine Prot -???-???-???-???-???- ???-???-???-???-???-? ??-???- Glucose FHR FuHt Pres Dilation -???-???-???-???-???- ???-???-???-???-???-? ??-???- (more content not included)... Normal [facility] Er Manager Office Visit Reporton 01-11-2025 Er Manager Office Visit Report [facility] [address] [place] [address] OFFICE VISIT Date of Service: 01/11/25 MR#: [id number] Acct: [id number] Name: HANNAH HENDRICKS Rep #: [id number] : 1990 Provider: BART Kaur ams Age/Sex: 34/F Location: [facility] Status: Signed Intake Vital Signs 12/01/24 08:19 01/11/25 09:59 01/11/25 09:59 Height 5 ft 6 in 5 ft 6 in 5 ft 6 in Weight: 215 lb 5 oz BMI 34.7 BP 118/75 Intake Visit Reasons: 34 WK OB Balloon Sander Required: No Is patient in pain?: No Allergies amoxicillin Allergy (Intermediate, Verified 01/11/25 09:58) Rash vancomycin Allergy (Intermediate, Verified 01/11/25 09:58) Rash Penicillins Allergy (Mild, Verified 01/11/25 09:58) hives, breathing issues shellfish derived Allergy (Mild, Verified 01/11/25 09:58) hives Medications ???Medication ???Instructions ???Recorded ???Confirmed ???Type docosahexaenoic acid 200 mg 200 mg PO DAILY 04/01/24 01/11/25 History capsule ( DHA) ondansetron HCl 4 mg tablet 4 mg PO Q6H #30 tabs 07/20/2412/15 Rx magnesium 200 mg tablet 200 mg PO QDAY 12/01/24 01/11/25 H istory sertraline 50 mg tablet (Zoloft) 50 mg PO QDAY #30 tabs 12/03/24 Rx Last Menstrual Period: 05/23/24 Zika: Zika virus screening: Negative : No PFSH PFSH Medical History Spontaneous Herniated disc Endometritis following delivery Surgical History Previous back surgery Family History Uncle Colon cancer Liver cancer Grandfather Liver cancer Pancreatic cancer Uncle Diverticulitis Grandmother Heart disease Uncle Heart disease Social History adopted: No household members: spouse and children housing: house number of children: 1 current occupational status: employed current occupation: [employer] current occupational exposures/hazards: No pets and animals: Yes (Not managing litterbox) pets and animals: cat(s), dog(s) and other details: rabbit history of recent travel: No sexually active: Yes Smoking Status: Former smoker quit date: 06/16/24 how long ago did patient quit smokin06/16/24 second hand exposure: No quit status: quit date established alcohol intake: current alcohol intake frequency: a few times a month details: Not while substance use type: does not use well-balanced diet: daily or most days caffeine: Yes Type: coffee and tea eating out: 1-3 times/week during the past year weight has: remained stable what type of physical activity do you participate in: walking frequency: 3-4 times per week duration: 15-30 minutes/day agata/presybeterian: Nondenominational seatbelt use: always do you feel safe at home: Yes 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 Date Name GA/Weeks Outcome Route Bth Weight Infant Gen Labor Lgth Anesthesia Del Locatn Provider FOB 08/11/20 Janie 39 live - full term 7lbs 8.5oz Female epidural [facility] Dr. Quang Samaniego 03/15/24 4 spontaneous Delivery Date: 08/11/20 Last Updated by: Cherelle Reeder Induced HPI 34 WK OB Details: HANNAH HENDRICKS is a 34 year old who presents for routine OB visit. OB Visit BALAJI Calculator Estimated Delivery Date Method Current WG Current Estimate 02/24/25 Ultrasound #1 33w 5d Other Estimates 02/27/25 LMP (Certain) 33w 2d Expected Delivery Route/Plan Labor Preferences- CB/BF classes: no labor support person: Aden labor intervention preferences: [] pain management options preferred: epidural cut cord/dad catch: cord : yes PP control planned: discussed discussed possible routes of delivery and associated risks: [] special requests: [] Specific Issue/Plans Covid status: [] Flu vaccine: [] Tdap vaccine: given Rhogam: NA LARC form signed: yes Problem list reviewed and updated with the most current plan of care details and appropriate orders placed. Relevant counseling for the gestational age provided. Continue routine care and follow up unless otherwise noted in visit notes/problem list details Initial Weight: Not Recorded Date -???-???-???-???-???- ???-???-???-???-???-? ??-???- EGA Weight BP Urine Prot -???-???-???-???-???- ???-???-???-???-???-? ??-???- Glucose FHR FuHt Pres Dilation -???-???-???-???-???- ???-???-???-???-???-? ??-???- (more content not included)... Normal [facility] - Chemistry and C hemistry - challengeOrdered By: Barbie Mitchell on 12-28-2024 Glucose Ql (U) Negative [facility] - UrinalysisOrder ed By: Barbie Mitchell on 12-28-2024 Protein Ql (U) Trace [facility] Er Manager Office Visit Reporton 12-28-2024 Er Manager Office Visit Report [facility], [address] [place] [address] OFFICE VISIT Date of Service: 12/28/24 MR#: [id number] Acct: [id number] Name: HANNAH HENDRICKS Rep #: [id number] : 1990 Provider: SHAWN wray Age/Sex: 34/F Location: [facility] Status: Signed Intake Vital Signs 11/09/24 08:55 12/15/24 09:22 12/28/24 09:45 12/28/24 09:50 Height 5 ft 6 in 5 ft 6 in 5 ft 6 in 5 ft 6 in Weight: 210 lb BMI 33.9 BP 118/72 Intake Visit Reasons: 32wk ob Chief Complaint: 32 Week OB Balloon Sander Required: No Is patient in pain?: No Allergies amoxicillin Allergy (Intermediate, Verified 12/28/24 09:45) Rash vancomycin Allergy (Intermediate, Verified 12/28/24 09:45) Rash Penicillins Allergy (Mild, Verified 12/28/24 09:45) hives, breathing issues shellfish derived Allergy (Mild, Verified 12/28/24 09:45) hives Medications ???Medication ???Instructions ???Recorded ???Confirmed ???Type docosahexaenoic acid 200 mg 200 mg PO DAILY 04/01/24 12/28/24 History capsule ( DHA) ondansetron HCl 4 mg tablet 4 mg PO Q6H #30 tabs 07/20/2412/14 Rx magnesium 200 mg tablet 200 mg PO QDAY 12/01/24 12/28/24 H istory sertraline 50 mg tablet (Zoloft) 50 mg PO QDAY #30 tabs 12/03/24 Rx Last Menstrual Period: 05/23/24 Zika: Zika virus screening: Negative : No PFSH PFSH Medical History Spontaneous Herniated disc Endometritis following delivery Surgical History Previous back surgery Family History Uncle Colon cancer Liver cancer Grandfather Liver cancer Pancreatic cancer Uncle Diverticulitis Grandmother Heart disease Uncle Heart disease Social History adopted: No household members: spouse and children housing: house number of children: 1 current occupational status: employed current occupation: [employer] current occupational exposures/hazards: No pets and animals: Yes (Not managing litterbox) pets and animals: cat(s), dog(s) and other details: rabbit history of recent travel: No sexually active: Yes Smoking Status: Former smoker quit date: 06/16/24 how long ago did patient quit smokin06/16/24 second hand exposure: No quit status: quit date established alcohol intake: current alcohol intake frequency: a few times a month details: Not while substance use type: does not use well-balanced diet: daily or most days caffeine: Yes Type: coffee and tea eating out: 1-3 times/week during the past year weight has: remained stable what type of physical activity do you participate in: walking frequency: 3-4 times per week duration: 15-30 minutes/day agata/presybeterian: Nondenominational seatbelt use: always do you feel safe at home: Yes 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 Date Name GA/Weeks Outcome Route Bth Weight Gen Labor Lgth Anesthesia Del Locatn Provider FOB 08/11/20 Janie 39 live - full term 7lbs 8.5oz Female epidural [facility] Dr. Quang Samaniego 03/15/24 4 spontaneous Delivery Date: 04/29/21 Last Updated by: Cherelle Reeder Induced HPI 32wk ob Details: HANNAH HENDRICKS is a 34 year old who presents for routine OB visit. OB Visit BALAJI Calculator Estimated Delivery Date Method Current WG Current Estimate 02/24/25 Ultrasound #1 31w 5d Other Estimates 02/27/25 LMP (Certain) 31w 2d Expected Delivery Route/Plan Labor Preferences- CB/BF classes: no labor support person: Aden labor intervention preferences: [] pain management options preferred: epidural cut cord/dad catch: cord : yes PP control planned: discussed discussed possible routes of delivery and associated risks: [] special requests: [] Specific Issue/Plans Covid status: [] Flu vaccine: [] Tdap vaccine: given Rhogam: NA LARC form signed: yes Problem list reviewed and updated with the most current plan of care details and appropriate orders placed. Relevant counseling for the gestational age provided. Continue routine care and follow up unless otherwise noted in visit notes/problem list details Initial Weight: Not Recorded Date -???-???-???-???-???- ???-???-???-???-???-? ??-???- EGA Weight BP Urine Prot -???-???-???-???-???- ???-???-???-???-???-? ??-???- Glucose FHR FuHt Pres Dilatio (more content not included)... Normal [facility] - Chemistry and C hemistry - challengeOrdered By: Maryann Worthington on 12-15-2024 Glucose Ql (U) Negative [facility] - UrinalysisOrder ed By: Maryann Worthington on 12-15-2024 Protein Ql (U) Trace [facility] Er Manager Office Visit Reporton 12-15-2024 Er Manager Office Visit Report [facility] [address], [address] [place] [address] OFFICE VISIT Date of Service: 12/15/24 MR#: [id number] Acct: [id number] Name: HANNAH HENDRICKS Rep #: [id number] : 1990 Provider: Dr. Maryann Mcclain DO Age/Sex: 34/F Location: [facility] Status: Signed Intake Vital Signs 10/12/24 15:54 12/01/24 08:19 12/15/24 09:22 12/15/24 09:22 Height 5 ft 6 in 5 ft 6 in 5 ft 6 in 5 ft 6 in Weight: 205 lb 9 oz BMI 33.1 BP 106/69 Intake Visit Reasons: 30 wk ob Balloon Sander Required: No Is patient in pain?: No Allergies amoxicillin Allergy (Intermediate, Verified 12/15/24 09:21) Rash vancomycin Allergy (Intermediate, Verified 12/15/24 09:21) Rash Penicillins Allergy (Mild, Verified 12/15/24 09:21) hives, breathing issues shellfish derived Allergy (Mild, Verified 12/15/24 09:21) hives Medications ???Medication ???Instructions ???Recorded ???Confirmed ???Type docosahexaenoic acid 200 mg 200 mg PO DAILY 04/01/24 12/15/24 History capsule ( DHA) ondansetron HCl 4 mg tablet 4 mg PO Q6H #30 tabs 07/20/2406/09 Rx magnesium 200 mg tablet 200 mg PO QDAY 12/01/24 12/15/24 H istory sertraline 50 mg tablet (Zoloft) 50 mg PO QDAY #30 tabs 12/03/24 Rx Last Menstrual Period: 05/23/24 Zika: Zika virus screening: Negative : No PFSH PFSH Medical History Spontaneous Herniated disc Endometritis following delivery Surgical History Previous back surgery Family History Uncle Colon cancer Liver cancer Grandfather Liver cancer Pancreatic cancer Uncle Diverticulitis Grandmother Heart disease Uncle Heart disease Social History adopted: No household members: spouse and children housing: house number of children: 1 current occupational status: employed current occupation: [employer] current occupational exposures/hazards: No pets and animals: Yes (Not managing litterbox) pets and animals: cat(s), dog(s) and other details: rabbit history of recent travel: No sexually active: Yes Smoking Status: Former smoker quit date: 06/16/24 how long ago did patient quit smokin06/16/24 second hand exposure: No quit status: quit date established alcohol intake: current alcohol intake frequency: a few times a month details: Not while substance use type: does not use well-balanced diet: daily or most days caffeine: Yes Type: coffee and tea eating out: 1-3 times/week during the past year weight has: remained stable what type of physical activity do you participate in: walking frequency: 3-4 times per week duration: 15-30 minutes/day agata/presybeterian: Nondenominational seatbelt use: always do you feel safe at home: Yes 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 Date Name GA/Weeks Outcome Route Bth Weight Infant Gen Labor Lgth Anesthesia Del Locatn Provider FOB 08/11/20 Janie 39 live - full term 7lbs 8.5oz Female epidural [facility] Dr. Quang Samaniego 03/15/24 4 spontaneous Delivery Date: 08/11/20 Last Updated by: Cherelle Reeder Induced HPI 30 wk ob Details: HANNAH HENDRICKS is a 34 year old who presents for routine OB visit. OB Visit BALAJI Calculator Estimated Delivery Date Method Current WG Current Estimate 02/24/25 Ultrasound #1 29w 6d Other Estimates 02/27/25 LMP (Certain) 29w 3d Expected Delivery Route/Plan Labor Preferences- CB/BF classes: no labor support person: Aden labor intervention preferences: [] pain management options preferred: epidural cut cord/dad catch: cord : yes PP control planned: discussed discussed possible routes of delivery and associated risks: [] special requests: [] Specific Issue/Plans Covid status: [] Flu vaccine: [] Tdap vaccine: [] Rhogam: NA LARC form signed: yes Problem list reviewed and updated with the most current plan of care details and appropriate orders placed. Relevant counseling for the gestational age provided. Continue routine care and follow up unless otherwise noted in visit notes/problem list details Initial Weight: Not Recorded Date -???-???-???-???-???- ???-???-???-???-???-? ??-???- EGA Weight BP Urine Prot -???-???-???-???-???- ???-???-???-???-???-? ??-???- Glucose FHR FuHt Pres Dilation -???-???-???-???- (more content not included)... Normal [facility] Absolute lymphocyte countOrd ered By: Ximena Mgchee on 12-01-2024 Lymphocytes Auto (Unsp spec) [#/Vol] 1.59 10*3/uL 0.83-4.51 [facility] Absolute neutrophil countOrd ered By: Ximena Mcghee on 12-01-2024 Neutrophils (Bld) [#/Vol] 5.5 10*3/uL 2.0-7.7 [facility] [facility] Automated lymphocyte count a s percentage of total leukocytesOrdered By: Ximena Mcghee on 12-01-2024 Lymphocytes/100 WBC Auto (Unsp spec) 19.6 % 19-41 [facility] Basophil percentageOrdered B y: Ximena Mcghee on 12-01-2024 Basophils/100 WBC (Bld) 0.4 % 0-1 [facility] CBC W/Diff, Automatedon 11-13 Absolute Lymph 1.59 X10 3/uL Normal 0.83-4.51 [facility] Comment on above: Performed By: #### L 3890.6006, L100.0100, L501.0250, L509.8002 ####[facility] [address] [place], [place], [id number] Absolute Neut 5.5 X10 3/uL Normal 2.0-7.7 [facility] Comment on above: Performed By: #### L 3890.6006, L100.0100, L501.0250, L509.8002 ####[facility] [address] [place], [address] Basophils/100 WBC (Bld) 0.4 % Normal 0-1 [facility] Comment on above: Performed By: #### L 3890.6006, L100.0100, L501.0250, L509.8002 ####[facility] [address] [place], [address] Eosinophils/100 WBC (Bld) 8.1 % High 0-5 [facility] Comment on above: Performed By: #### L 3890.6006, L100.0100, L501.0250, L509.8002 ####[facility] [address] [place], [address] Erythrocyte distribution width (RBC) [Ratio] 12.1 % Normal 11.6-14.6 [facility] Comment on above: Performed By: #### L 3890.6006, L100.0100, L501.0250, L509.8002 ####[facility] [address] [place], [address] Hematocrit (Bld) [Volume fraction] 34.9 % Low 37-47 [facility] Comment on above: Performed By: #### L 3890.6006, L100.0100, L501.0250, L509.8002 ####[facility] [address] [place], [address] Hemoglobin (Bld) [Mass/Vol] 11.9 g/dL Low 12.0-15.0 [facility] Comment on above: Performed By: #### L 3890.6006, L100.0100, L501.0250, L509.8002 ####[facility] [address] [place], [address] IG% 0.400 Normal 0.0-0.9 [facility] Comment on above: Result Comment: IG% - Immature Granulocytes (promyelocytes, myelocytes and metamyelocytes) > 1% indicates that a LEFT SHIFT is Present. Performed By: #### L 3890.6006, L100.0100, L501.0250, L509.8002 ####[facility] [address] [place], [address] Lymphocytes/100 WBC (Bld) 19.6 % Normal 19-41 [facility] Comment on above: Performed By: #### L 3890.6006, L100.0100, L501.0250, L509.8002 ####[facility] [address] [place], [address] MCH (RBC) [Entitic mass] 33.1 pg High 27.0-32.0 [facility] Comment on above: Performed By: #### L 3890.6006, L100.0100, L501.0250, L509.8002 ####[facility] [address] [place], [address] MCHC (RBC) [Mass/Vol] 34.1 g/dL Normal 32-36 [facility] Comment on above: Performed By: #### L 3890.6006, L100.0100, L501.0250, L509.8002 ####[facility] [address] [place], [address] MCV (RBC) [Entitic vol] 97.2 fL Normal 81-99 [facility] Comment on above: Performed By: #### L 3890.6006, L100.0100, L501.0250, L509.8002 ####[facility] [address] [place], [address] Monocytes/100 WBC (Bld) 4.2 % Normal 0-10 [facility] Comment on above: Performed By: #### L 3890.6006, L100.0100, L501.0250, L509.8002 ####[facility] [address] [place], [address] Neutrophils/100 WBC (Bld) 67.3 % Normal 47-70 [facility] Comment on above: Performed By: #### L 3890.6006, L100.0100, L501.0250, L509.8002 ####[facility] [address] [place], [address] Nucleated RBC (Bld) [#/Vol] 0 10*3/uL Normal 0-5 [facility] Comment on above: Performed By: #### L 3890.6006, L100.0100, L501.0250, L509.8002 ####[facility] [address] [place], [address] Platelet mean volume (Bld) [Entitic vol] 10.0 fL Normal 6.2-12.0 [facility] Comment on above: Performed By: #### L 3890.6006, L100.0100, L501.0250, L509.8002 ####[facility] [address] [place], [address] Platelets (Bld) [#/Vol] 249 10*3/uL Normal 150-450 [facility] Comment on above: Performed By: #### L 3890.6006, L100.0100, L501.0250, L509.8002 ####[facility] [address] [place], [address] RBC (Bld) [#/Vol] 3.59 10*6/uL Low 4.2-5.4 [facility] Comment on above: Performed By: #### L 3890.6006, L100.0100, L501.0250, L509.8002 ####[facility] [address] [place], [address] RDW SD 43.2 fl Normal 35.1-43.9 [facility] Comment on above: Performed By: #### L 3890.6006, L100.0100, L501.0250, L509.8002 ####[facility] [address] [place], [address] WBC (Bld) [#/Vol] 8.1 10*3/uL Normal 4.4-11.0 [facility] Comment on above: Performed By: #### L 3890.6006, L100.0100, L501.0250, L509.8002 ####[facility] [address] [place], [address] Eosinophil percentageOrdered By: Ximena Mcghee on 12-01-2024 Eosinophils/100 WBC (Bld) 8.1 % High 0-5 [facility] Erythrocyte distribution wid th ratioOrdered By: Ximena Mcghee on 12-01-2024 Erythrocyte distribution width (RBC) [Ratio] 12.1 % 11.6-14.6 [facility] Erythrocyte distribution wid th standard deviationOrdered By: Ximena Mcghee on 12-01-2024 Erythrocyte distribution width (RBC) [Ratio] 43.2 fl 35.1-43.9 [facility] Glucose Challenge Gest 1H 50 kirsten 12-01-2024 GLU GEST 50g 1H 130 mg/dL Normal 70-140 [facility] Comment on above: Result Comment: AMENDED REPORT 12/01/24 1330 GLU GEST 50g 1H previously reported as: 133 mg/dL Performed By: #### L 3890.6006, L100.0100, L501.0250, L509.8002 ####[facility] [address] [place], [address] Glucose measurement at 2 benigno rs post-dose gestational glucose tolerance testOrdered By: Ximena Mcghee on 12-01-2024 Glucose [Mass/Vol] 130 mg/dL 70-140 [facility] Comment on above: Previous reported re sult: 133 mg/dLEdited by: PRASHANT on 12/01/24:1330 AMENDED REPORT 12/01/24 1330 GLU GEST 50g 1H previously reported as: 133 mg/dL HIVon 12-01-2024 HIV Non-Reactive Normal Nonreactive [facility] Comment on above: Result Comment: Non- Reactive Reactive Repeatedly reactive samples must be confirmed according to CDC recommended confirmatory algorithms. The subresults for either HIVAG or AHIV can be used as an aid in the selection of the confirmation algorithm for reactive samples. Send out specimens with Reactive results to [facility] for confirmation. Order the HIV antibody detection and differentiation: lc#[id number] Performed By: #### L 3890.6006, L100.0100, L501.0250, L509.8002 ####[facility] [address] [place], [place], [id number] Hematocrit Auto (Bld) [Volum e fraction]Ordered By: Ximena Mcghee on 12-01-2024 Hematocrit (Bld) [Volume fraction] 34.9 % Low 37-47 [facility] Hemoglobin measurementOrdere d By: Ximena Mcghee on 12-01-2024 Hemoglobin (Bld) [Mass/Vol] 11.9 g/dL Low 12.0-15.0 [facility] Immature granulocytes/100 WB C Auto (Bld)Ordered By: Ximena Mcghee on 12-01-2024 Immature granulocytes/100 WBC (Bld) 0.400 % 0.0-0.9 [facility] Comment on above: IG% - Immature Granu locytes (promyelocytes, myelocytes and metamyelocytes) > 1% indicates that a LEFT SHIFT is Present. Laboratory - Chemistry and C hemistry - challengeOrdered By: Barbie Mitchell on 12-01-2024 Glucose Ql (U) Negative [facility] Laboratory - UrinalysisOrder ed By: Barbie Mitchell on 12-01-2024 Protein Ql (U) Negative [facility] MCV (mean corpuscular volume ) determinationOrdered By: Ximena Mcghee on 12-01-2024 MCV (RBC) [Entitic vol] 97.2 fL 81-99 [facility] Mean corpuscular hemoglobin (MCH) determinationOrdered By: Ximena Mcghee on 12-01-2024 MCH (RBC) [Entitic mass] 33.1 pg High 27.0-32.0 [facility] Mean corpuscular hemoglobin concentration (MCHC) determinationOrdered By: Ximena Mcghee on 12-01-2024 MCHC (RBC) [Mass/Vol] 34.1 g/dL 32-36 [facility] Mean platelet volume determi nationOrdered By: Ximena Mcghee on 12-01-2024 Platelet mean volume (Bld) [Entitic vol] 10.0 fL 6.2-12.0 [facility] Monocyte percentageOrdered B y: Ximena Mcghee on 12-01-2024 Monocytes/100 WBC (Bld) 4.2 % 0-10 [facility] Neutrophil percentageOrdered By: Ximena Mcghee on 12-01-2024 Neutrophils/100 WBC (Bld) 67.3 % 47-70 [facility] No Panel InformationOrdered By: Ximena Mcghee on 12-01-2024 HIV (1&2) Antibody Non-Reactive Nonreactive [facility] Comment on above: Non-ReactiveReactive Repeatedly reactive samples must be confirmed according to CDC recommended confirmatory algorithms. The subresults for either HIVAG or AHIV can be used as an aid in the selection of the confirmation algorithm for reactive samples.Send out specimens with Reactive results to [facility] for confirmation.Order the HIV antibody detection and differentiation: lc#[id number] Nucleated red blood cell per centageOrdered By: Ximena Mcghee on 12-01-2024 Nucleated RBC/100 WBC (Bld) [Ratio] 0 % 0-5 [facility] Er Manager Office Visit Reporton 12-01-2024 Er Manager Office Visit Report [facility] [address], [address] [place] [address] OFFICE VISIT Date of Service: 12/01/24 MR#: [id number] Acct: [id number] Name: HANNAH HNEDRICKS Rep #: [id number] : 1990 Provider: SHAWN wray Age/Sex: 34/F Location: [facility] [place] Status: Signed Intake Vital Signs 09/14/24 08:59 11/09/24 08:55 12/01/24 08:19 Height 5 ft 6 in 5 ft 6 in 5 ft 6 in Weight: 206 lb 4 oz BMI 33.3 BP 112/70 Intake Visit Reasons: 28wk ob/glucose Chief Complaint: 28 Week OB/Glucose Balloon Sander Required: No Is patient in pain?: No Allergies amoxicillin Allergy (Intermediate, Verified 12/01/24 08:16) Rash vancomycin Allergy (Intermediate, Verified 12/01/24 08:16) Rash Penicillins Allergy (Mild, Verified 12/01/24 08:16) hives, breathing issues shellfish derived Allergy (Mild, Verified 12/01/24 08:16) hives Medications ???Medication ???Instructions ???Recorded ???Confirmed ???Type docosahexaenoic acid 200 mg 200 mg PO DAILY 04/01/24 12/01/24 History capsule ( DHA) ondansetron HCl 4 mg tablet 4 mg PO Q6H #30 tabs 07/20/2411/13 Rx magnesium 200 mg tablet 200 mg PO QDAY 12/01/24 12/01/24 H istory Last Menstrual Period: 05/23/24 Zika: Zika virus screening: Negative : Yes PFSH PFSH Medical History Spontaneous Herniated disc Endometritis following delivery Surgical History Previous back surgery Family History Uncle Colon cancer Liver cancer Grandfather Liver cancer Pancreatic cancer Uncle Diverticulitis Grandmother Heart disease Uncle Heart disease Social History adopted: No household members: spouse and children housing: house number of children: 1 current occupational status: employed current occupation: [employer] current occupational exposures/hazards: No pets and animals: Yes (Not managing litterbox) pets and animals: cat(s), dog(s) and other details: rabbit history of recent travel: No sexually active: Yes Smoking Status: Former smoker quit date: 06/16/24 how long ago did patient quit smokin06/16/24 second hand exposure: No quit status: quit date established alcohol intake: current alcohol intake frequency: a few times a month details: Not while substance use type: does not use well-balanced diet: daily or most days caffeine: Yes Type: coffee and tea eating out: 1-3 times/week during the past year weight has: remained stable what type of physical activity do you participate in: walking frequency: 3-4 times per week duration: 15-30 minutes/day agata/presybeterian: Nondenominational seatbelt use: always do you feel safe at home: Yes 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 Date Name GA/Weeks Outcome Route Bth Weight Gen Labor Lgth Anesthesia Del Locatn Provider FOB 08/11/20 Janie 39 live - full term 7lbs 8.5oz Female epidural [facility] Dr. Quang Samaniego 03/15/24 4 spontaneous Delivery Date: 08/11/20 Last Updated by: Cherelle Reeder Induced HPI 28wk ob/glucose Details: HANNAH HENDRICKS is a 34 year old who presents for routine OB visit. OB Visit BALAJI Calculator Estimated Delivery Date Method Current WG Current Estimate 02/24/25 Ultrasound #1 27w 6d Other Estimates 02/27/25 LMP (Certain) 27w 3d Expected Delivery Route/Plan Labor Preferences- CB/BF classes: no labor support person: Aden labor intervention preferences: [] pain management options preferred: epidural cut cord/dad catch: cord : yes PP control planned: discussed discussed possible routes of delivery and associated risks: [] special requests: [] Specific Issue/Plans Covid status: [] Flu vaccine: [] Tdap vaccine: [] Rhogam: NA LARC form signed: yes Problem list reviewed and updated with the most current plan of care details and appropriate orders placed. Relevant counseling for the gestational age provided. Continue routine care and follow up unless otherwise noted in visit notes/problem list details Initial Weight: Not Recorded Date -???-???-???-???-???- ???-???-???-???-???-? ??-???- EGA Weight BP Urine Prot -???-???-???-???-???- ???-???-???-???-???-? ??-???- Glucose FHR FuHt Pres Dilation -???-???-???-???-???- ???-???-???-???-???-? ??-???- Effaced St Visit Note (more content not included)... Normal [facility] Platelet countOrdered By: Bernardo Mcghee on 12-01-2024 Platelets (Bld) [#/Vol] 249 10*3/uL 150-450 [facility] RBC Auto (Bld) [#/Vol]Ordere d By: Ximena Mcghee on 12-01-2024 RBC (Bld) [#/Vol] 3.59 10*6/uL Low 4.2-5.4 [facility] Syphilis Antibodieson 2024 Syphilis Abs Non-Reactive Normal Nonreactive [facility] Comment on above: Performed By: #### L 3890.6006, L100.0100, L501.0250, L509.8002 ####[facility] [address] [place], [address] White blood cell (WBC) count Ordered By: Ximena Mcghee on 12-01-2024 WBC (Bld) [#/Vol] 8.1 10*3/uL 4.4-11.0 [facility] Laboratory - Chemistry and C hemistry - challengeOrdered By: Ximena Mcghee on 11-09-2024 Glucose Ql (U) Negative [facility] Laboratory - UrinalysisOrder ed By: Ximena Mcghee on 11-09-2024 Protein Ql (U) Trace [facility] Er Manager Office Visit Reporton 11-09-2024 Er Manager Office Visit Report [facility] [address], [address] [place] [address] OFFICE VISIT Date of Service: 11/09/24 MR#: [id number] Acct: [id number] Name: HANNAH HENDRICKS Rep #: [id number] : 1990 Provider: BART Kaur ams Age/Sex: 34/F Location: [facility] [place] Status: Signed Intake Vital Signs 08/17/24 08:32 10/12/24 15:54 11/09/24 08:55 11/09/24 08:55 Height 5 ft 6 in 5 ft 6 in 5 ft 6 in 5 ft 6 in Weight: 202 lb 6 oz BMI 32.6 BP 104/71 Intake Visit Reasons: 25 wk ob Chief Complaint: 25wk OB Balloon Sander Required: No Is patient in pain?: No Allergies amoxicillin Allergy (Intermediate, Verified 11/09/24 08:53) Rash vancomycin Allergy (Intermediate, Verified 11/09/24 08:53) Rash Penicillins Allergy (Mild, Verified 11/09/24 08:53) hives, breathing issues shellfish derived Allergy (Mild, Verified 11/09/24 08:53) hives Medications ???Medication ???Instructions ???Recorded ???Confirmed ???Type docosahexaenoic acid 200 mg 200 mg PO DAILY 04/01/24 11/09/24 History capsule ( DHA) ondansetron HCl 4 mg tablet 4 mg PO Q6H #30 tabs 07/20/2410/14 Rx Last Menstrual Period: 05/23/24 : No PFSH PFSH Medical History Spontaneous Herniated disc Endometritis following delivery Surgical History Previous back surgery Family History Uncle Colon cancer Liver cancer Grandfather Liver cancer Pancreatic cancer Uncle Diverticulitis Grandmother Heart disease Uncle Heart disease Social History adopted: No household members: spouse and children housing: house number of children: 1 current occupational status: employed current occupation: [employer] current occupational exposures/hazards: No pets and animals: Yes (Not managing litterbox) pets and animals: cat(s), dog(s) and other details: rabbit history of recent travel: No sexually active: Yes Smoking Status: Former smoker quit date: 06/16/24 how long ago did patient quit smokin06/16/24 second hand exposure: No quit status: quit date established alcohol intake: current alcohol intake frequency: a few times a month details: Not while substance use type: does not use well-balanced diet: daily or most days caffeine: Yes Type: coffee and tea eating out: 1-3 times/week during the past year weight has: remained stable what type of physical activity do you participate in: walking frequency: 3-4 times per week duration: 15-30 minutes/day agata/presybeterian: Nondenominational seatbelt use: always do you feel safe at home: Yes 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 Date Name GA/Weeks Outcome Route Bth Weight Gen Labor Lgth Anesthesia Del Locatn Provider FOB 08/11/20 Janie 39 live - full term 7lbs 8.5oz Female epidural [facility] Dr. Quang Samaniego 03/15/24 4 spontaneous Delivery Date: 08/11/20 Last Updated by: Cherelle Reeder Induced HPI 25 wk ob Details: HANNAH HENDRICKS is a 34 year old who presents for routine OB visit. OB Visit BALAJI Calculator Estimated Delivery Date Method Current WG Current Estimate 02/24/25 Ultrasound #1 24w 5d Other Estimates 02/27/25 LMP (Certain) 24w 2d Expected Delivery Route/Plan Labor Preferences- CB/BF classes: [] labor support person: [] labor intervention preferences: [] pain management options preferred: [] cut cord/dad catch: [] : [] PP control planned: [] discussed possible routes of delivery and associated risks: [] special requests: [] Specific Issue/Plans Covid status: [] Flu vaccine: [] Tdap vaccine: [] Rhogam: [] LARC form signed: [] Problem list reviewed and updated with the most current plan of care details and appropriate orders placed. Relevant counseling for the gestational age provided. Continue routine care and follow up unless otherwise noted in visit notes/problem list details Initial Weight: Not Recorded Date -???-???-???-???-???- ???-???-???-???-???-? ??-???- EGA Weight BP Urine Prot -???-???-???-???-???- ???-???-???-???-???-? ??-???- Glucose FHR FuHt Pres Dilation -???-???-???-???-???- ???-???-???-???-???-? ??-???- Effaced St Visit Note 07/20/24 -???-???-???-???-???- ???-???-???-???-???-? ??-???- 8w 5d 182 lb 6 oz 117/79 -???-???-???-???-???- ???-???-???-???-???-? ??-???- 170 -? (more content not included)... Normal [facility] Laboratory - Chemistry and C hemistry - challengeOrdered By: Isabel Marino on 10-12-2024 Glucose Ql (U) Negative [facility] Laboratory - UrinalysisOrder ed By: Isabel Marino on 10-12-2024 Protein Ql (U) Negative [facility] Er Manager Office Visit Reporton 10-12-2024 Er Manager Office Visit Report [facility] [address], [address] [place] [address] OFFICE VISIT Date of Service: 10/12/24 MR#: [id number] Acct: [id number] Name: HANNAH HENDRICKS Rep #: [id number] : 1990 Provider: Dr. Isabel feldman MD Age/Sex: 34/F Location: [facility] [place] Status: Signed Intake Vital Signs 07/20/24 13:59 09/14/24 08:59 10/12/24 15:54 Height 5 ft 6 in 5 ft 6 in 5 ft 6 in Weight: 195 lb 6 oz BMI 31.5 BP 119/75 Intake Visit Reasons: 21wk ob Balloon Sander Required: No Is patient in pain?: No Allergies amoxicillin Allergy (Intermediate, Verified 10/12/24 15:52) Rash vancomycin Allergy (Intermediate, Verified 10/12/24 15:52) Rash Penicillins Allergy (Mild, Verified 10/12/24 15:52) hives, breathing issues shellfish derived Allergy (Mild, Verified 10/12/24 15:52) hives Medications ???Medication ???Instructions ???Recorded ???Confirmed ???Type docosahexaenoic acid 200 mg 200 mg PO DAILY 04/01/24 10/12/24 History capsule ( DHA) ondansetron HCl 4 mg tablet 4 mg PO Q6H #30 tabs 07/20/24/ Rx Last Menstrual Period: 05/23/24 Zika: Zika virus screening: Negative : No PFSH PFSH Medical History Spontaneous Herniated disc Endometritis following delivery Surgical History Previous back surgery Family History Uncle Colon cancer Liver cancer Grandfather Liver cancer Pancreatic cancer Uncle Diverticulitis Grandmother Heart disease Uncle Heart disease Social History adopted: No household members: spouse and children housing: house number of children: 1 current occupational status: employed current occupation: [employer] current occupational exposures/hazards: No pets and animals: Yes (Not managing litterbox) pets and animals: cat(s), dog(s) and other details: rabbit history of recent travel: No sexually active: Yes Smoking Status: Former smoker quit date: 06/16/24 how long ago did patient quit smokin06/16/24 second hand exposure: No quit status: quit date established alcohol intake: current alcohol intake frequency: a few times a month details: Not while substance use type: does not use well-balanced diet: daily or most days caffeine: Yes Type: coffee and tea eating out: 1-3 times/week during the past year weight has: remained stable what type of physical activity do you participate in: walking frequency: 3-4 times per week duration: 15-30 minutes/day agata/presybeterian: Nondenominational seatbelt use: always do you feel safe at home: Yes 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 Date Name GA/Weeks Outcome Route Bth Weight Gen Labor Lgth Anesthesia Del Locatn Provider FOB 08/11/20 Janie 39 live - full term 7lbs 8.5oz Female epidural [facility] Dr. Quang Samaniego 03/15/24 4 spontaneous Delivery Date: 08/11/20 Last Updated by: Cherelle Reeder Induced HPI 21wk ob Details: HANNAH HENDRICKS is a 34 year old who presents for routine OB visit. OB Visit BALAJI Calculator Estimated Delivery Date Method Current WG Current Estimate 02/24/25 Ultrasound #1 20w 5d Other Estimates 02/27/25 LMP (Certain) 20w 2d Expected Delivery Route/Plan Labor Preferences- CB/BF classes: [] labor support person: [] labor intervention preferences: [] pain management options preferred: [] cut cord/dad catch: [] : [] PP control planned: [] discussed possible routes of delivery and associated risks: [] special requests: [] Specific Issue/Plans Covid status: [] Flu vaccine: [] Tdap vaccine: [] Rhogam: [] LARC form signed: [] Problem list reviewed and updated with the most current plan of care details and appropriate orders placed. Relevant counseling for the gestational age provided. Continue routine care and follow up unless otherwise noted in visit notes/problem list details Initial Weight: Not Recorded Date -???-???-???-???-???- ???-???-???-???-???-? ??-???- EGA Weight BP Urine Prot -???-???-???-???-???- ???-???-???-???-???-? ??-???- Glucose FHR FuHt Pres Dilation -???-???-???-???-???- ???-???-???-???-???-? ??-???- Effaced St Visit Note 07/20/24 -???-???-???-???-???- ???-???-???-???-???-? ??-???- 8w 5d 182 lb 6 oz 117/79 -???-???-???-???-???- ???-???-???-???-???-? ??-???- 170 (more content not included)... Normal [facility] [id number] 10-10-2024 [facility] Misc. COMMENT Normal . [facility] Comment on above: Order Comment: [id number] 1AFP SERUM RT Result Comment: Test Ordered: [id number] AFP, Serum, Open Spina Bifida Results BIOCHEMICAL ENGINEER NOLAB Reference Range: . Test Results: TG Reference Range: . Please refer to the following specimen for additional lab results. Please refer to [id number] for results. Gest. Age on Collection Date BIOCHEMICAL ENGINEER NOLAB Reference Range: . Gestat. Age Based On BIOCHEMICAL ENGINEER NOLAB Reference Range: . Maternal Age At BALAJI BIOCHEMICAL ENGINEER NOLAB Reference Range: . Race BIOCHEMICAL ENGINEER NOLAB Reference Range: . Weight BIOCHEMICAL ENGINEER NOLAB Reference Range: . Insulin Dep Diabetes BIOCHEMICAL ENGINEER NOLAB Reference Range: . Multiple Gestation BIOCHEMICAL ENGINEER NOLAB Reference Range: . AFP Value NOLAB Reference Range: . Test not performed AFP MoM BIOCHEMICAL ENGINEER NOLAB Reference Range: . OSBR Risk 1 IN BIOCHEMICAL ENGINEER NOLAB Reference Range: . Interpretation BIOCHEMICAL ENGINEER NOLAB Reference Range: . Comment: BIOCHEMICAL ENGINEER NOLAB Reference Range: . Tracking BIOCHEMICAL ENGINEER NOLAB Reference Range: . Performed at: - [facility] [address] [place], [place] [id number] Counter Former: Norm Gonzáles PhD, Phone: [phone] Performed at: - [facility] [address] [place], [place] [id number] Counter Former: Zelalem Ernst [facility], Phone: [phone] Performed By: #### L 3410.9992 ####[facility] [address] [place], [place], [address] Laboratory - Chemistry and C hemistry - challengeOrdered By: Ximena Mcghee on 09-14-2024 Glucose Ql (U) Negative [facility] Laboratory - UrinalysisOrder ed By: Ximena Mcghee on 09-14-2024 Protein Ql (U) Negative [facility] Er Manager Office Visit Reporton 09-14-2024 Er Manager Office Visit Report [facility] [address], [address] [place] [address] OFFICE VISIT Date of Service: 09/14/24 MR#: [id number] Acct: [id number] Name: HANNAH HENDRICKS Rep #: [id number] : 1990 Provider: BART Kaur ams Age/Sex: 34/F Location: [facility] Status: Signed Intake Vital Signs 07/20/24 13:59 08/17/24 08:32 09/14/24 08:59 Height 5 ft 6 in 5 ft 6 in 5 ft 6 in Weight: 190 lb 2 oz BMI 30.7 BP 106/71 Intake Visit Reasons: 17wk ob Chief Complaint: 17wk OB Balloon Sander Required: No Is patient in pain?: No Allergies amoxicillin Allergy (Intermediate, Verified 08/17/24 08:37) Rash vancomycin Allergy (Intermediate, Verified 08/17/24 08:37) Rash Penicillins Allergy (Mild, Verified 08/17/24 08:37) hives, breathing issues shellfish derived Allergy (Mild, Verified 08/17/24 08:37) hives Medications ???Medication ???Instructions ???Recorded ???Confirmed ???Type docosahexaenoic acid 200 mg 200 mg PO DAILY 04/01/24 09/14/24 History capsule ( DHA) ondansetron HCl 4 mg tablet 4 mg PO Q6H #30 tabs 07/20/2406/09 Rx Last Menstrual Period: 05/23/24 : No PFSH PFSH Medical History Spontaneous Herniated disc Endometritis following delivery Surgical History Previous back surgery Family History Uncle Colon cancer Liver cancer Grandfather Liver cancer Pancreatic cancer Uncle Diverticulitis Grandmother Heart disease Uncle Heart disease Social History adopted: No household members: spouse and children housing: house number of children: 1 current occupational status: employed current occupation: [employer] current occupational exposures/hazards: No pets and animals: Yes (Not managing litterbox) pets and animals: cat(s), dog(s) and other details: rabbit history of recent travel: No sexually active: Yes Smoking Status: Former smoker quit date: 06/16/24 how long ago did patient quit smokin06/16/24 second hand exposure: No quit status: quit date established alcohol intake: current alcohol intake frequency: a few times a month details: Not while substance use type: does not use well-balanced diet: daily or most days caffeine: Yes Type: coffee and tea eating out: 1-3 times/week during the past year weight has: remained stable what type of physical activity do you participate in: walking frequency: 3-4 times per week duration: 15-30 minutes/day agata/presybeterian: Nondenominational seatbelt use: always do you feel safe at home: Yes 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 Date Name GA/Weeks Outcome Route Bth Weight Infant Gen Labor Lgth Anesthesia Del Locatn Provider FOB 08/11/20 Janie 39 live - full term 7lbs 8.5oz Female epidural [facility] Dr. Quang Samaniego 03/15/24 4 spontaneous Delivery Date: 08/11/20 Last Updated by: Cherelle Reeder Induced HPI 17wk ob Details: HANNAH HENDRICKS is a 34 year old who presents for routine OB visit. OB Visit BALAJI Calculator Estimated Delivery Date Method Current WG Current Estimate 02/24/25 Ultrasound #1 16w 5d Other Estimates 02/27/25 LMP (Certain) 16w 2d Expected Delivery Route/Plan Labor Preferences- CB/BF classes: [] labor support person: [] labor intervention preferences: [] pain management options preferred: [] cut cord/dad catch: [] : [] PP control planned: [] discussed possible routes of delivery and associated risks: [] special requests: [] Specific Issue/Plans Covid status: [] Flu vaccine: [] Tdap vaccine: [] Rhogam: [] LARC form signed: [] Problem list reviewed and updated with the most current plan of care details and appropriate orders placed. Relevant counseling for the gestational age provided. Continue routine care and follow up unless otherwise noted in visit notes/problem list details Initial Weight: Not Recorded Date -???-???-???-???-???- ???-???-???-???-???-? ??-???- EGA Weight BP Urine Prot -???-???-???-???-???- ???-???-???-???-???-? ??-???- Glucose FHR FuHt Pres Dilation -???-???-???-???-???- ???-???-???-???-???-? ??-???- Effaced St Visit Note 07/20/24 -???-???-???-???-???- ???-???-???-???-???-? ??-???- 8w 5d 182 lb 6 oz 117/79 -???-???-???-???-???- ???-???-???-???-???-? ??-???- 170 -???-???-???-???-???- ???-???-?? (more content not included)... Normal [facility] Laboratory - Chemistry and C hemistry - challengeOrdered By: Barbie Mitchell on 08-17-2024 Glucose Ql (U) Negative [facility] Laboratory - UrinalysisOrder ed By: Barbie Mitchell on 08-17-2024 Protein Ql (U) Trace [facility] Er Manager Office Visit Reporton 08-17-2024 Er Manager Office Visit Report [facility] [address], [address] [place] [address] OFFICE VISIT Date of Service: 08/17/24 MR#: [id number] Acct: [id number] Name: HANNAH HENDRICKS Rep #: [id number] : 1990 Provider: SHAWN wray Age/Sex: 34/F Location: [facility] Status: Signed Intake Vital Signs 04/14/24 14:22 08/05/24 09:52 08/17/24 08:32 Height 5 ft 6 in 5 ft 6 in 5 ft 6 in Weight: 184 lb 8 oz BMI 29.7 BP 104/68 Intake Visit Reasons: 13wk ob Balloon Sander Required: No Is patient in pain?: No Allergies amoxicillin Allergy (Intermediate, Verified 08/17/24 08:37) Rash vancomycin Allergy (Intermediate, Verified 08/17/24 08:37) Rash Penicillins Allergy (Mild, Verified 08/17/24 08:37) hives, breathing issues shellfish derived Allergy (Mild, Verified 08/17/24 08:37) hives Medications ???Medication ???Instructions ???Recorded ???Confirmed ???Type docosahexaenoic acid 200 mg 200 mg PO DAILY 04/01/24 08/17/24 History capsule ( DHA) ondansetron HCl 4 mg tablet 4 mg PO Q6H #30 tabs 07/20/24 05/0 09/06 Rx Last Menstrual Period: 05/23/24 Zika: Zika virus screening: Negative : No PFSH PFSH Medical History Spontaneous Herniated disc Endometritis following delivery Surgical History Previous back surgery Family History Uncle Colon cancer Liver cancer Grandfather Liver cancer Pancreatic cancer Uncle Diverticulitis Grandmother Heart disease Uncle Heart disease Social History adopted: No household members: spouse and children housing: house number of children: 1 current occupational status: employed current occupation: [employer] current occupational exposures/hazards: No pets and animals: Yes (Not managing litterbox) pets and animals: cat(s), dog(s) and other details: rabbit history of recent travel: No sexually active: Yes Smoking Status: Former smoker quit date: 06/16/24 how long ago did patient quit smokin06/16/24 second hand exposure: No quit status: quit date established alcohol intake: current alcohol intake frequency: a few times a month details: Not while substance use type: does not use well-balanced diet: daily or most days caffeine: Yes Type: coffee and tea eating out: 1-3 times/week during the past year weight has: remained stable what type of physical activity do you participate in: walking frequency: 3-4 times per week duration: 15-30 minutes/day agata/presybeterian: Nondenominational seatbelt use: always do you feel safe at home: Yes 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 Date Name GA/Weeks Outcome Route Bth Weight Infant Gen Labor Lgth Anesthesia Del Locatn Provider FOB 08/11/20 Janie 39 live - full term 7lbs 8.5oz Female epidural [facility] Dr. Quang Samaniego 03/15/24 4 spontaneous Delivery Date: 08/11/20 Last Updated by: Cherelle Ojedaion Induced HPI 13wk ob Details: HANNAH HENDRICKS is a 34 year old who presents for routine OB visit. OB Visit BALAJI Calculator Estimated Delivery Date Method Current WG Current Estimate 02/24/25 Ultrasound #1 12w 5d Other Estimates 02/27/25 LMP (Certain) 12w 2d Expected Delivery Route/Plan Labor Preferences- CB/BF classes: [] labor support person: [] labor intervention preferences: [] pain management options preferred: [] cut cord/dad catch: [] : [] PP control planned: [] discussed possible routes of delivery and associated risks: [] special requests: [] Specific Issue/Plans Covid status: [] Flu vaccine: [] Tdap vaccine: [] Rhogam: [] LARC form signed: [] Problem list reviewed and updated with the most current plan of care details and appropriate orders placed. Relevant counseling for the gestational age provided. Continue routine care and follow up unless otherwise noted in visit notes/problem list details Initial Weight: Not Recorded Date -???-???-???-???-???- ???-???-???-???-???-? ??-???- EGA Weight BP Urine Prot -???-???-???-???-???- ???-???-???-???-???-? ??-???- Glucose FHR FuHt Pres Dilation -???-???-???-???-???- ???-???-???-???-???-? ??-???- Effaced St Visit Note 07/20/24 -???-???-???-???-???- ???-???-???-???-???-? ??-???- 8w 5d 182 lb 6 oz 117/79 -???-???-???-???-???- ???-???-???-???-???-? ??-???- (more content not included)... Normal [facility] Laboratory - Chemistry and C hemistry - challengeOrdered By: Barbie Mitchell on 08-05-2024 Glucose Ql (U) Negative [facility] Laboratory - UrinalysisOrder ed By: Barbie Mitchell on 08-05-2024 Protein Ql (U) Negative [facility] Er Manager Office Visit Reporton 08-05-2024 Er Manager Office Visit Report [facility] [address], [address] [place] [address] OFFICE VISIT Date of Service: 08/05/24 MR#: [id number] Acct: [id number] Name: HANNAH HENDRICKS Rep #: [id number] : 1990 Provider: SHAWN wray Age/Sex: 34/F Location: [facility] Status: Signed Intake Vital Signs 07/20/24 13:59 08/05/24 09:52 Height 5 ft 6 in 5 ft 6 in Weight: 183 lb BMI 29.5 BP 126/78 H Intake Visit Reasons: Heart tone check Chief Complaint: Heart tone check Balloon Sander Required: No Is patient in pain?: No Allergies amoxicillin Allergy (Intermediate, Verified 08/05/24 09:55) Rash vancomycin Allergy (Intermediate, Verified 08/05/24 09:55) Rash Penicillins Allergy (Mild, Verified 08/05/24 09:55) hives, breathing issues shellfish derived Allergy (Mild, Verified 08/05/24 09:55) hives Medications ???Medication ???Instructions ???Recorded ???Confirmed ???Type docosahexaenoic acid 200 mg 200 mg PO DAILY 04/01/24 08/05/24 History capsule ( DHA) ondansetron HCl 4 mg tablet 4 mg PO Q6H #30 tabs 07/20/2407/15 Rx Last Menstrual Period: 05/23/24 Zika: Zika virus screening: Negative : No PFSH PFSH Medical History Spontaneous Herniated disc Endometritis following delivery Surgical History Previous back surgery Family History Uncle Colon cancer Liver cancer Grandfather Liver cancer Pancreatic cancer Uncle Diverticulitis Grandmother Heart disease Uncle Heart disease Social History adopted: No household members: spouse and children housing: house number of children: 1 current occupational status: employed current occupation: [employer] current occupational exposures/hazards: No pets and animals: Yes (Not managing litterbox) pets and animals: cat(s), dog(s) and other details: rabbit history of recent travel: No sexually active: Yes Smoking Status: Former smoker quit date: 06/16/24 how long ago did patient quit smokin06/16/24 second hand exposure: No quit status: quit date established alcohol intake: current alcohol intake frequency: a few times a month details: Not while substance use type: does not use well-balanced diet: daily or most days caffeine: Yes Type: coffee and tea eating out: 1-3 times/week during the past year weight has: remained stable what type of physical activity do you participate in: walking frequency: 3-4 times per week duration: 15-30 minutes/day agata/presybeterian: Nondenominational seatbelt use: always do you feel safe at home: Yes 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 Date Name GA/Weeks Outcome Route Bth Weight Gen Labor Lgth Anesthesia Del Locatn Provider FOB 08/11/20 Janie 39 live - full term 7lbs 8.5oz Female epidural [facility] Dr. Quang Samaniego 03/15/24 4 spontaneous Delivery Date: 08/11/20 Last Updated by: Cherelle Reeder Induced HPI Heart tone check Details: HANNAH HENDRICKS is a 34 year old who presents for routine OB visit. OB Visit BALAJI Calculator Estimated Delivery Date Method Current WG Current Estimate 02/24/25 Ultrasound #1 11w 0d Other Estimates 02/27/25 LMP (Certain) 10w 4d Expected Delivery Route/Plan Labor Preferences- CB/BF classes: [] labor support person: [] labor intervention preferences: [] pain management options preferred: [] cut cord/dad catch: [] : [] PP control planned: [] discussed possible routes of delivery and associated risks: [] special requests: [] Specific Issue/Plans Covid status: [] Flu vaccine: [] Tdap vaccine: [] Rhogam: [] LARC form signed: [] Problem list reviewed and updated with the most current plan of care details and appropriate orders placed. Relevant counseling for the gestational age provided. Continue routine care and follow up unless otherwise noted in visit notes/problem list details Initial Weight: Not Recorded Date -???-???-???-???-???- ???-???-???-???-???-? ??-???- EGA Weight BP Urine Prot -???-???-???-???-???- ???-???-???-???-???-? ??-???- Glucose FHR FuHt Pres Dilation -???-???-???-???-???- ???-???-???-???-???-? ??-???- Effaced St Visit Note 07/20/24 -???-???-???-???-???- ???-???-???-???-???-? ??-???- 8w 5d 182 lb 6 oz 117/79 -???-???-???-???-???- ???-??? (more content not included)... Normal [facility] Absolute lymphocyte countOrd ered By: Maryann Worthington on 07-31-2024 Lymphocytes Auto (Unsp spec) [#/Vol] 2.10 10*3/uL 0.83-4.51 [facility] Absolute neutrophil countOrd ered By: Maryann Elin on 07-31-2024 Neutrophils (Bld) [#/Vol] 3.9 10*3/uL 2.0-7.7 [facility] Automated lymphocyte count a s percentage of total leukocytesOrdered By: Maryann Worthington on 07-31-2024 Lymphocytes/100 WBC Auto (Unsp spec) 29.6 % 19-41 [facility] Basophil percentageOrdered B y: Maryann Worthington on 07-31-2024 Basophils/100 WBC (Bld) 0.4 % 0-1 [facility] CBC W/Diff, Automatedon 07-14 Absolute Lymph 2.10 X10 3/uL Normal 0.83-4.51 [facility] Comment on above: Performed By: #### L 900.0098, L100.0100, L509.4006, L509.8002, L3890.6006, L3890.6102, L3890.6301, BTS ####[facility] [address] [place], [address] Absolute Neut 3.9 X10 3/uL Normal 2.0-7.7 [facility] Comment on above: Performed By: #### L 900.0098, L100.0100, L509.4006, L509.8002, L3890.6006, L3890.6102, L3890.6301, BTS ####[facility] [address] [place], [address] Basophils/100 WBC (Bld) 0.4 % Normal 0-1 [facility] Comment on above: Performed By: #### L 900.0098, L100.0100, L509.4006, L509.8002, L3890.6006, L3890.6102, L3890.6301, BTS ####[facility] [address] [place], [address] Eosinophils/100 WBC (Bld) 8.3 % High 0-5 [facility] Comment on above: Performed By: #### L 900.0098, L100.0100, L509.4006, L509.8002, L3890.6006, L3890.6102, L3890.6301, BTS ####[facility] [address] [place], [address] Erythrocyte distribution width (RBC) [Ratio] 11.6 % Normal 11.6-14.6 [facility] Comment on above: Performed By: #### L 900.0098, L100.0100, L509.4006, L509.8002, L3890.6006, L3890.6102, L3890.6301, BTS ####[facility] [address] [place], [address] Hematocrit (Bld) [Volume fraction] 37.1 % Normal 37-47 [facility] Comment on above: Performed By: #### L 900.0098, L100.0100, L509.4006, L509.8002, L3890.6006, L3890.6102, L3890.6301, BTS ####[facility] [address] [place], [address] Hemoglobin (Bld) [Mass/Vol] 12.8 g/dL Normal 12.0-15.0 [facility] Comment on above: Performed By: #### L 900.0098, L100.0100, L509.4006, L509.8002, L3890.6006, L3890.6102, L3890.6301, BTS ####[facility] [address] [place], [address] IG% 0.300 Normal 0.0-0.9 [facility] Comment on above: Result Comment: IG% - Immature Granulocytes (promyelocytes, myelocytes and metamyelocytes) > 1% indicates that a LEFT SHIFT is Present. Performed By: #### L 900.0098, L100.0100, L509.4006, L509.8002, L3890.6006, L3890.6102, L3890.6301, BTS ####[facility] [address] [place], [address] Lymphocytes/100 WBC (Bld) 29.6 % Normal 19-41 [facility] Comment on above: Performed By: #### L 900.0098, L100.0100, L509.4006, L509.8002, L3890.6006, L3890.6102, L3890.6301, BTS ####[facility] [address] [place], [address] MCH (RBC) [Entitic mass] 32.9 pg High 27.0-32.0 [facility] Comment on above: Performed By: #### L 900.0098, L100.0100, L509.4006, L509.8002, L3890.6006, L3890.6102, L3890.6301, BTS ####[facility] [address] [place], [address] MCHC (RBC) [Mass/Vol] 34.5 g/dL Normal 32-36 [facility] Comment on above: Performed By: #### L 900.0098, L100.0100, L509.4006, L509.8002, L3890.6006, L3890.6102, L3890.6301, BTS ####[facility] [address] [place], [address] MCV (RBC) [Entitic vol] 95.4 fL Normal 81-99 [facility] Comment on above: Performed By: #### L 900.0098, L100.0100, L509.4006, L509.8002, L3890.6006, L3890.6102, L3890.6301, BTS ####[facility] [address] [place], [address] Monocytes/100 WBC (Bld) 6.2 % Normal 0-10 [facility] Comment on above: Performed By: #### L 900.0098, L100.0100, L509.4006, L509.8002, L3890.6006, L3890.6102, L3890.6301, BTS ####[facility] [address] [place], [address] Neutrophils/100 WBC (Bld) 55.2 % Normal 47-70 [facility] Comment on above: Performed By: #### L 900.0098, L100.0100, L509.4006, L509.8002, L3890.6006, L3890.6102, L3890.6301, BTS ####[facility] [address] [place], [address] Nucleated RBC (Bld) [#/Vol] 0 10*3/uL Normal 0-5 [facility] Comment on above: Performed By: #### L 900.0098, L100.0100, L509.4006, L509.8002, L3890.6006, L3890.6102, L3890.6301, BTS ####[facility] [address] [place], [address] Platelet mean volume (Bld) [Entitic vol] 9.5 fL Normal 6.2-12.0 [facility] Comment on above: Performed By: #### L 900.0098, L100.0100, L509.4006, L509.8002, L3890.6006, L3890.6102, L3890.6301, BTS ####[facility] [address] [place], [address] Platelets (Bld) [#/Vol] 277 10*3/uL Normal 150-450 [facility] Comment on above: Performed By: #### L 900.0098, L100.0100, L509.4006, L509.8002, L3890.6006, L3890.6102, L3890.6301, BTS ####[facility] [address] [place], [address] RBC (Bld) [#/Vol] 3.89 10*6/uL Low 4.2-5.4 [facility] Comment on above: Performed By: #### L 900.0098, L100.0100, L509.4006, L509.8002, L3890.6006, L3890.6102, L3890.6301, BTS ####[facility] [address] [place], [address] RDW SD 40.3 fl Normal 35.1-43.9 [facility] Comment on above: Performed By: #### L 900.0098, L100.0100, L509.4006, L509.8002, L3890.6006, L3890.6102, L3890.6301, BTS ####[facility] [address] [place], [address] WBC (Bld) [#/Vol] 7.1 10*3/uL Normal 4.4-11.0 [facility] Comment on above: Performed By: #### L 900.0098, L100.0100, L509.4006, L509.8002, L3890.6006, L3890.6102, L3890.6301, BTS ####[facility] [address] [facility] [place], [address] Eosinophil percentageOrdered By: Maryann Worthington on 07-31-2024 Eosinophils/100 WBC (Bld) 8.3 % High 0-5 [facility] Erythrocyte distribution wid th ratioOrdered By: Maryann Worthington on 07-31-2024 Erythrocyte distribution width (RBC) [Ratio] 11.6 % 11.6-14.6 [facility] Erythrocyte distribution wid th standard deviationOrdered By: [facility] Systemthu on 07-31-2024 Erythrocyte distribution width (RBC) [Ratio] 40.3 fl 35.1-43.9 [facility] HIVon 07-31-2024 HIV Non-Reactive Normal Nonreactive [facility] Comment on above: Result Comment: Non- Reactive Reactive Repeatedly reactive samples must be confirmed according to CDC recommended confirmatory algorithms. The subresults for either HIVAG or AHIV can be used as an aid in the selection of the confirmation algorithm for reactive samples. Send out specimens with Reactive results to [facility] for confirmation. Order the HIV antibody detection and differentiation: [id number] Performed By: #### L 900.0098, L100.0100, L509.4006, L509.8002, L3890.6006, L3890.6102, L3890.6301, BTS ####[facility] [address] [place], [place], [id number] Hematocrit Auto (Bld) [Volum e fraction]Ordered By: Maryann Elin on 07-31-2024 Hematocrit (Bld) [Volume fraction] 37.1 % 37-47 [facility] Hemoglobin measurementOrdere d By: Maryann Elin on 07-31-2024 Hemoglobin (Bld) [Mass/Vol] 12.8 g/dL 12.0-15.0 [facility] Hepatitis C Antibodyon 07-31 Hepatitis C Ab Non-Reactive Normal Nonreactive [facility] Comment on above: Result Comment: Reac tive: Presumptive evidence of antibodies to HCV. Follow CDC recommendations for supplemental testing. Non-Reactive: Antibodies to HCV were not detected; does not exclude the possibility of exposure to HCV Reactive Results are presumptive evidence of antibodies to HCV. Follow CDC recommendations for supplemental testing. Order confirmation testing: HCV Quant by PCR testing - HCVPCR lc#[id number] Non Reactive: < 0.8 Equivocal: >/= 0.8 to < 1.0 Reactive: >/= 1.0 The CDC requires that a reactive/equivocal HCV antibody result be sent out for confirmation. HCV Quant by PCR testing. Performed By: #### L 900.0098, L100.0100, L509.4006, L509.8002, L3890.6006, L3890.6102, L3890.6301, BTS ####[facility] [address] [place], [place], [id number] Immature granulocytes/100 WB C Auto (Bld)Ordered By: Maryann Worthington on 07-31-2024 Immature granulocytes/100 WBC (Bld) 0.300 % 0.0-0.9 [facility] Comment on above: IG% - Immature Granu locytes (promyelocytes, myelocytes and metamyelocytes) > 1% indicates that a LEFT SHIFT is Present. L3890.6102on 07-31-2024 HEP B Surf Ag Non-Reactive Normal Nonreactive [facility] Comment on above: Result Comment: Reac tive: Presumptive evidence of HBV. Repeatedly reactive samples must be confirmed using a neutralization test ([employer]ys HBsAg Confirmatory Test) Non-Reactive: HBsAg not detected; does not exclude the possibility of exposure to HBV Performed By: #### L 900.0098, L100.0100, L509.4006, L509.8002, L3890.6006, L3890.6102, L3890.6301, BTS ####[facility] [address] [facility] [place], [address] L509.4006on 07-31-2024 Rubella IgG REAC Normal Nonreactive [facility] Comment on above: Result Comment: Anti body Result: Interpretation Non-Reactive: Non-Immune Reactive: Immune The following results were obtained with the [employer]ys Rubella IgG assay. Results from assays of other manufacturers cannot be used interchangeably. Performed By: #### L 900.0098, L100.0100, L509.4006, L509.8002, L3890.6006, L3890.6102, L3890.6301, BTS ####[facility] [address] [place], [place], [address] Laboratory - Microbiology an d Antimicrobial susceptibilityOrdered By: Maryann Worthington on 07-31-2024 HBV surface Ag Ql (S) Non-Reactive Nonreactive [facility] Comment on above: Reactive: Presumptiv e evidence of HBV. Repeatedly reactive samples must be confirmed using a neutralization test (Elecsys HBsAg Confirmatory Test)Non-Reactive: HBsAg not detected; does not exclude the possibility of exposure to HBV MCV (mean corpuscular volume ) determinationOrdered By: Maryann Worthington on 07-31-2024 MCV (RBC) [Entitic vol] 95.4 fL 81-99 [facility] Mean corpuscular hemoglobin (MCH) determinationOrdered By: Maryann Worthington on 07-31-2024 MCH (RBC) [Entitic mass] 32.9 pg High 27.0-32.0 [facility] Mean corpuscular hemoglobin concentration (MCHC) determinationOrdered By: Maryann Worthington on 07-31-2024 MCHC (RBC) [Mass/Vol] 34.5 g/dL 32-36 [facility] Mean platelet volume determi nationOrdered By: Maryann Worthington on 07-31-2024 Platelet mean volume (Bld) [Entitic vol] 9.5 fL 6.2-12.0 [facility] Monocyte percentageOrdered B y: Maryann Worthington on 07-31-2024 Monocytes/100 WBC (Bld) 6.2 % 0-10 [facility] NATERAon 07-31-2024 NATURA SEE SCANNED REPORT Normal [facility] Comment on above: Performed By: #### L 900.0098, L100.0100, L509.4006, L509.8002, L3890.6006, L3890.6102, L3890.6301, BTS ####[facility] [address] [place], [address] Neutrophil percentageOrdered By: Maryann Worthington on 07-31-2024 Neutrophils/100 WBC (Bld) 55.2 % 47-70 [facility] No Panel InformationOrdered By: Maryann Worthington on 07-31-2024 HIV (1&2) Antibody Non-Reactive Nonreactive [facility] Comment on above: Non-ReactiveReactive Repeatedly reactive samples must be confirmed according to CDC recommended confirmatory algorithms. The subresults for either HIVAG or AHIV can be used as an aid in the selection of the confirmation algorithm for reactive samples.Send out specimens with Reactive results to [facility] for confirmation.Order the HIV antibody detection and differentiation: #[id number] Nucleated red blood cell per centageOrdered By: Maryann Worthington on 07-31-2024 Nucleated RBC/100 WBC (Bld) [Ratio] 0 % 0-5 [facility] Platelet countOrdered By: Blas Worthington on 07-31-2024 Platelets (Bld) [#/Vol] 277 10*3/uL 150-450 [facility] RBC Auto (Bld) [#/Vol]Ordere d By: Maryann Worthington on 07-31-2024 RBC (Bld) [#/Vol] 3.89 10*6/uL Low 4.2-5.4 [facility] Syphilis Antibodieson 2024 Syphilis Abs Non-Reactive Normal Nonreactive [facility] Comment on above: Performed By: #### L 900.0098, L100.0100, L509.4006, L509.8002, L3890.6006, L3890.6102, L3890.6301, BTS ####[facility] [address] [place], [address] Type AND Screenon 07-31-2024 ABO and Rh group Nom (Bld) Blood group A Rh(D) positive Normal [facility] Comment on above: Order Comment: PN Performed By: #### L 900.0098, L100.0100, L509.4006, L509.8002, L3890.6006, L3890.6102, L3890.6301, BTS ####[facility] [address] [place], [address] White blood cell (WBC) count Ordered By: Maryann Worthington on 07-31-2024 WBC (Bld) [#/Vol] 7.1 10*3/uL 4.4-11.0 [facility] Chlamydia/GC YANDY aptimaon CHLAMY,NUC ACID Negative Normal Negative [facility] Comment on above: Performed By: #### M 100.2200, L7000.1800 ####[facility] [address] [place], [address] GC BY NUC ACID Negative Normal Negative [facility] Comment on above: Result Comment: Perf ormed at: =G - [facility] [address] [id number] Counter Former: Radha Alfaro MD, Phone: [phone] Performed By: #### M 100.2200, L7000.1800 ####[facility] [address] [place], [address] Urine Cultureon 07-23-2024 URC Presumptive C albicans Revere Count <1000 Mixed Gram Positive Organisms Mixed Gram Positive Organisms MIXC Mixed contaminants. Submit a new specimen if indicated. Normal [facility] Comment on above: Performed By: #### M 100.2200, L7000.1800 ####[facility] [address] [place], [address] C. trachomatis rRNA YANDY+prob e Ql (Unsp spec)Ordered By: Maryann Worthington on 07-20-2024 Chlamydia DNA (YANDY) Negative Negative [facility] Chlamydia trachomatis rRNA d etection by probe and target amplification methodOrdered By: Maryann Worthington on 07-20-2024 C. trachomatis rRNA YANDY+probe Ql (Unsp spec) Negative Negative [facility] Neisseria gonorrhoeae nuclei c acid detection by amplified probe techniqueOrdered By: Maryann Worthington on 07-20-2024 N. gonorrhoeae DNA YANDY+probe Ql (Unsp spec) Negative Negative [facility] Comment on above: Performed at: [address] [id number] Director: Radha Alfaro MD, Phone: [phone] Er Manager Office Visit Reporton 07-20-2024 Er Manager Office Visit Report [facility] [address], [address] [place] [address] OFFICE VISIT Date of Service: 07/20/24 MR#: [id number] Acct: [id number] Name: HANNAH HENDRICKS Rep #: [id number] : 1990 Provider: Dr. Maryann Mcclain DO Age/Sex: 34/F Location: [facility] [place] Status: Signed Intake Vital Signs 04/14/24 14:22 07/20/24 13:58 07/20/24 13:59 Height 5 ft 6 in 5 ft 6 in 5 ft 6 in Weight: 182 lb 6 oz BMI 29.4 BP 117/79 Intake Visit Reasons: NOB LMP 2/8 Balloon Sander Required: No Is patient in pain?: No Allergies amoxicillin Allergy (Intermediate, Verified 07/20/24 13:57) Rash vancomycin Allergy (Intermediate, Verified 07/20/24 13:57) Rash Penicillins Allergy (Mild, Verified 07/20/24 13:57) hives, breathing issues shellfish derived Allergy (Mild, Verified 07/20/24 13:57) hives Medications ???Medication ???Instructions ???Recorded ???Confirmed ???Type docosahexaenoic acid 200 mg 200 mg PO DAILY 04/01/24 07/20/24 History capsule ( DHA) ondansetron HCl 4 mg tablet 4 mg PO Q6H #30 tabs 07/20/240 11/06 Rx Last Menstrual Period: 05/23/24 Zika: Zika virus screening: Negative : No PFSH PFSH Medical History Spontaneous Herniated disc Endometritis following delivery Surgical History Previous back surgery Family History Uncle Colon cancer Liver cancer Grandfather Liver cancer Pancreatic cancer Uncle Diverticulitis Grandmother Heart disease Uncle Heart disease Social History adopted: No household members: spouse and children housing: house number of children: 1 current occupational status: employed current occupation: [employer] current occupational exposures/hazards: No pets and animals: Yes (Not managing litterbox) pets and animals: cat(s), dog(s) and other details: rabbit history of recent travel: No sexually active: Yes Smoking Status: Former smoker quit date: 06/16/24 how long ago did patient quit smokin06/16/24 second hand exposure: No quit status: quit date established alcohol intake: current alcohol intake frequency: a few times a month details: Not while substance use type: does not use well-balanced diet: daily or most days caffeine: Yes Type: coffee and tea eating out: 1-3 times/week during the past year weight has: remained stable what type of physical activity do you participate in: walking frequency: 3-4 times per week duration: 15-30 minutes/day agata/presybeterian: Nondenominational seatbelt use: always do you feel safe at home: Yes 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 Date Name GA/Weeks Outcome Route Bth Weight Infant Gen Labor Lgth Anesthesia Del Locatn Provider FOB 08/11/20 Janie 39 live - full term 7lbs 8.5oz Female epidural [facility] Dr. Quang Samaniego 03/15/24 4 spontaneous Delivery Date: 08/11/20 Last Updated by: Cherelle Reeder Induced HPI NOB LMP 05/23 Details: HANNAH HENDRICKS is a 34 year old who presents for New OB visit. OB Visit BALAJI Calculator Estimated Delivery Date Method Current WG Current Estimate 02/24/25 Ultrasound #1 8w 5d Other Estimates 02/27/25 LMP (Certain) 8w 2d Estimated Due Date: 02/24/25 Expected Delivery Route/Plan Labor Preferences- CB/BF classes: [] labor support person: [] labor intervention preferences: [] pain management options preferred: [] cut cord/dad catch: [] : [] PP control planned: [] discussed possible routes of delivery and associated risks: [] special requests: [] Specific Issue/Plans Covid status: [] Flu vaccine: [] Tdap vaccine: [] Rhogam: [] LARC form signed: [] Problem list reviewed and updated with the most current plan of care details and appropriate orders placed. Relevant counseling for the gestational age provided. Continue routine care and follow up unless otherwise noted in visit notes/problem list details Initial Weight: Not Recorded Date -???-???-???-???-???- ???-???-???-???-???-? ??-???- EGA Weight BP Urine Prot -???-???-???-???-???- ???-???-???-???-???-? ??-???- Glucose FHR FuHt Pres Dilation -???-???-???-???-???- ???-???-???-???-???-? ??-???- Effaced St Visit Note 07/20/24 -???-???-???-???-???- ???-???-???-???-???-? ??-???- 8w 5d 182 lb 6 oz 117/79 -???-???-???-? (more content not included)... Normal [facility] Urine cultureOrdered By: Leah Worthington on 07-20-2024 Bacteria identified Cx Nom (U) Presumptive C albicans Abnormal [facility] Bacteria identified Cx Nom (U) Positive Abnormal [facility] Transvaginal w/Preg USon Transvaginal w/Preg US [facility] Services [address] [place], [place] [address] Transvaginal w/Preg US MR#: [id number] Acct: [id number] Name: HANNAH HENDRICKS Rep #: [id number] : 1990 F 34 From: Hayde Yuan MD PCP: Dr. Thomas Salinas MD Status: REG CLI Study: Transvaginal w/Preg US Date of Exam: 07/02/24 Exam# [id number] Ordering Dr: Maryann Bajwa DO PROCEDURE: TRANSVAGINAL W/PREG US (USTVAGP), 07/02/2024. Reportedly, 5 weeks 5 days by previously established dates with BALAJI 02/27/2025. REASON FOR EXAM: VIABILITY TECHNIQUE: Grayscale and color/spectral doppler transvaginal pelvic ultrasound was performed with attention to the uterus and associated early gestation. COMPARISON: 06/25/2024 FINDINGS: A single intrauterine gestational sac is identified with mean sac diameter 14 mm corresponding to 6 weeks 2 days. Previously suspected tiny perigestational hemorrhage is not visualized. Suspect a minute 2.6 mm pole corresponding to 6 weeks 1 day. Yolk sac: Present. Cardiac activity: Present, 101 beats per minute. Estimated delivery date (BALAJI): 02/24/2025 by CRL. Uterus: Otherwise unremarkable, 9.6 x 6.4 x 4.7 cm. Cervix: Unremarkable. Right ovary: 3.4 x 1.7 x 1.3 cm, unremarkable. Left ovary: 3.0 x 2.5 x 2.2 cm. 2.0 x 1.8 x 1.6 cm likely corpus luteum. Other: No significant visualized pelvic free fluid. US/Transvaginal w/Preg US IMPRESSION: 1. Single live intrauterine gestation with an estimated gestational age of 6 weeks 1 days corresponding to BALAJI 02/24/2025. This is compatible with reported previously established dates. 2. Borderline mild bradycardia could be due to very early gestation. Recommend clinical follow-up. Additionally recommend routine complete anatomic survey at 20 weeks. 3. Additional description as above. Reading Location: [id number] CC: Dr. Maryann Bajwa DO; Dr. Thomas Salinas MD Director Instrumentation: Signed Normal [facility] HCG ( test) QlOrder ed By: Maryann Worthington on 06-27-2024 Human Chorionic Gonadotropin, Quant 5354 mIU/mL High <9 [facility] Comment on above: Gestational Age0.2-1 Week: 5-50 mIU/mL1-2 Weeks: 50-500 mIU/mL2-3 Weeks: 100-5000 mIU/mL3-4 Weeks: 500-10,000 mIU/mL4-5 Weeks:1000-50,000 mIU/mL5-6 Weeks: 10,000-100,000 mIU/mL6-8 Weeks: 15,000-200,000 mIU/mL2-3 Months:10,000-100,000 mIU/mL Serum human chorionic gonado tropin detection for pregnancyOrdered By: Maryann Worthington on 06-27-2024 HCG ( test) Ql 5354 mIU/mL High <9 [facility] Comment on above: Gestational Age0.2-1 Week: 5-50 mIU/mL1-2 Weeks: 50-500 mIU/mL2-3 Weeks: 100-5000 mIU/mL3-4 Weeks: 500-10,000 mIU/mL4-5 Weeks:1000-50,000 mIU/mL5-6 Weeks: 10,000-100,000 mIU/mL6-8 Weeks: 15,000-200,000 mIU/mL2-3 Months:10,000-100,000 mIU/mL hCG Titer Quant., Serumon HCG QUANT. 5354 mIU/mL High <9 non-preg [facility] Comment on above: Result Comment: Gest ational Age 0.2-1 Week: 5-50 mIU/mL 1-2 Weeks: 50-500 mIU/mL 2-3 Weeks: 100-5000 mIU/mL 3-4 Weeks: 500-10,000 mIU/mL 4-5 Weeks:1000-50,000 mIU/mL 5-6 Weeks: 10,000-100,000 mIU/mL 6-8 Weeks: 15,000-200,000 mIU/mL 2-3 Months:10,000-100,000 mIU/mL Performed By: #### L 700.8000 ####[facility] [address] [place], [address] HCG ( test) QlOrder ed By: Maryann Worthington on 06-25-2024 Human Chorionic Gonadotropin, Quant 2419 mIU/mL High <9 [facility] Comment on above: Gestational Age0.2-1 Week: 5-50 mIU/mL1-2 Weeks: 50-500 mIU/mL2-3 Weeks: 100-5000 mIU/mL3-4 Weeks: 500-10,000 mIU/mL4-5 Weeks:1000-50,000 mIU/mL5-6 Weeks: 10,000-100,000 mIU/mL6-8 Weeks: 15,000-200,000 mIU/mL2-3 Months:10,000-100,000 mIU/mL Serum human chorionic gonado tropin detection for pregnancyOrdered By: Maryann Worthington on 06-25-2024 HCG ( test) Ql 2419 mIU/mL High <9 [facility] Comment on above: Gestational Age0.2-1 Week: 5-50 mIU/mL1-2 Weeks: 50-500 mIU/mL2-3 Weeks: 100-5000 mIU/mL3-4 Weeks: 500-10,000 mIU/mL4-5 Weeks:1000-50,000 mIU/mL5-6 Weeks: 10,000-100,000 mIU/mL6-8 Weeks: 15,000-200,000 mIU/mL2-3 Months:10,000-100,000 mIU/mL Transvaginal w/Preg USon Transvaginal w/Preg US [facility] Imaging Services [address] [place] [address] Transvaginal w/Preg US MR#: [id number] Acct: [id number] Name: HANNAH HENDRICKS Rep #: [id number] : 1990 F 34 From: Hayde Yuan MD PCP: Dr. Thomas Salinas MD Status: REG CLI Study: Transvaginal w/Preg US Date of Exam: 06/25/24 Exam# [id number] Ordering Dr: Maryann Bajwa DO PROCEDURE: TRANSVAGINAL W/PREG US (USTVAGP), 06/25/2024 REASON FOR EXAM: RULE OUT ECTOPIC . Reportedly, 4 weeks 5 days with EGD 02/27/2025 by previously established dates. TECHNIQUE: Grayscale and color doppler transvaginal pelvic ultrasound was performed with attention to the uterus and associated early gestation. COMPARISON: 06/02/2023. Images only are available for review; the report is not available at the time of dictation. FINDINGS: An endometrial ovoid sonolucency in the fundus measures 7 x 2 x 8 mm and may reflect an early gestational sac however there is no definite surrounding. Gestational reaction. Mean sac diameter 6 mm corresponding to an estimated gestational age 5 weeks 2 days. A possible minute pole measures 2 mm, too small for estimation of gestational age. A yolk sac and cardiac activity are not identified. Endometrial thickness 10 mm including the sonolucency. A minute hypoechoic collection adjacent to the gestational sac measures 3 x 4 x 2 mm compatible with a tiny perigestational hemorrhage. Estimated delivery date (BALAJI): 02/24/2025 by mean sac diameter. Uterus: 8.5 x 5.1 x 4.8 cm, unremarkable. Cervix: Nabothian cyst. Right ovary: 2.2 x 1.9 x 1.7 cm (estimated volume 3.6 mL), unremarkable. Left ovary: 3.0 x 2.52.4 cm (estimated volume 9.7 mL). Likely corpus luteum measures 2.3 x 2.2 x 1.8 cm. Other: No visualized pelvic free fluid. US/Transvaginal w/Preg US IMPRESSION: 1. Suspect an extremely early intrauterine gestational sac with mean sac diameter 6 mm corresponding to 5 weeks 2 days and possible tiny pole measuring 2 mm, too small for estimation of gestational age, and without detectable cardiac activity however this may be on account of tiny size. Recommend close clinical and imaging follow-up including serial beta hCG and pelvic ultrasound in 7-14 days for confirmation and to confirm viability. 2. Suspected minute 4 mm perigestational hemorrhage may account for reported abnormal bleeding. Attention on follow-up. 3. Additional description as above. Reading Location: [facility] CC: Dr. Maryann Bajwa DO; Dr. Thomas Salinas MD Director Instrumentation: Signed Normal [facility] hCG Titer Quant., Serumon HCG QUANT. 2419 mIU/mL High <9 non-preg [facility] Comment on above: Result Comment: Gest ational Age 0.2-1 Week: 5-50 mIU/mL 1-2 Weeks: 50-500 mIU/mL 2-3 Weeks: 100-5000 mIU/mL 3-4 Weeks: 500-10,000 mIU/mL 4-5 Weeks:1000-50,000 mIU/mL 5-6 Weeks: 10,000-100,000 mIU/mL 6-8 Weeks: 15,000-200,000 mIU/mL 2-3 Months:10,000-100,000 mIU/mL Performed By: #### L 700.8000 ####[facility] [address] [place], [place], [id number] HCG ( test) QlOrder ed By: Maryann Worthington on 06-18-2024 Human Chorionic Gonadotropin, Quant 110 mIU/mL High <9 [facility] Comment on above: Gestational Age0.2-1 Week: 5-50 mIU/mL1-2 Weeks: 50-500 mIU/mL2-3 Weeks: 100-5000 mIU/mL3-4 Weeks: 500-10,000 mIU/mL4-5 Weeks:1000-50,000 mIU/mL5-6 Weeks: 10,000-100,000 mIU/mL6-8 Weeks: 15,000-200,000 mIU/mL2-3 Months:10,000-100,000 mIU/mL Serum human chorionic gonado tropin detection for pregnancyOrdered By: Maryann Worthington on 06-18-2024 HCG ( test) Ql 110 mIU/mL High <9 [facility] Comment on above: Gestational Age0.2-1 Week: 5-50 mIU/mL1-2 Weeks: 50-500 mIU/mL2-3 Weeks: 100-5000 mIU/mL3-4 Weeks: 500-10,000 mIU/mL4-5 Weeks:1000-50,000 mIU/mL5-6 Weeks: 10,000-100,000 mIU/mL6-8 Weeks: 15,000-200,000 mIU/mL2-3 Months:10,000-100,000 mIU/mL hCG Titer Quant., Serumon HCG QUANT. 110 mIU/mL High <9 non-preg [facility] Comment on above: Result Comment: Gest ational Age 0.2-1 Week: 5-50 mIU/mL 1-2 Weeks: 50-500 mIU/mL 2-3 Weeks: 100-5000 mIU/mL 3-4 Weeks: 500-10,000 mIU/mL 4-5 Weeks:1000-50,000 mIU/mL 5-6 Weeks: 10,000-100,000 mIU/mL 6-8 Weeks: 15,000-200,000 mIU/mL 2-3 Months:10,000-100,000 mIU/mL Performed By: #### L 700.8000 ####[facility] [address] [place], [address] HCG ( test) QlOrder ed By: Maryann Worthington on 06-16-2024 Human Chorionic Gonadotropin, Quant 37 mIU/mL High <9 [facility] Comment on above: Gestational Age0.2-1 Week: 5-50 mIU/mL1-2 Weeks: 50-500 mIU/mL2-3 Weeks: 100-5000 mIU/mL3-4 Weeks: 500-10,000 mIU/mL4-5 Weeks:1000-50,000 mIU/mL5-6 Weeks: 10,000-100,000 mIU/mL6-8 Weeks: 15,000-200,000 mIU/mL2-3 Months:10,000-100,000 mIU/mL Serum human chorionic gonado tropin detection for pregnancyOrdered By: Maryann Worthington on 06-16-2024 HCG ( test) Ql 37 mIU/mL High <9 [facility] Comment on above: Gestational Age0.2-1 Week: 5-50 mIU/mL1-2 Weeks: 50-500 mIU/mL2-3 Weeks: 100-5000 mIU/mL3-4 Weeks: 500-10,000 mIU/mL4-5 Weeks:1000-50,000 mIU/mL5-6 Weeks: 10,000-100,000 mIU/mL6-8 Weeks: 15,000-200,000 mIU/mL2-3 Months:10,000-100,000 mIU/mL hCG Titer Quant., Serumon HCG QUANT. 37 mIU/mL High <9 non-preg [facility] Comment on above: Result Comment: Gest ational Age 0.2-1 Week: 5-50 mIU/mL 1-2 Weeks: 50-500 mIU/mL 2-3 Weeks: 100-5000 mIU/mL 3-4 Weeks: 500-10,000 mIU/mL 4-5 Weeks:1000-50,000 mIU/mL 5-6 Weeks: 10,000-100,000 mIU/mL 6-8 Weeks: 15,000-200,000 mIU/mL 2-3 Months:10,000-100,000 mIU/mL Performed By: #### L 700.8000 ####[facility] [address] [place], [address] HCG ( test) QlOrder ed By: Barbie Mitchell on 04-14-2024 Human Chorionic Gonadotropin, Quant < 1 mIU/mL <4 [facility] Comment on above: hCG levels with Gest ational AgeGestational Age hCG mIU/mL (IU/L)0.2 - 1 week 5 - 501-2 weeks 50 - 5002-3 weeks 100 - 68562-3 weeks 500 - 553433-5 weeks 1000 - 293039-3 weeks 67055 - 100,0006-8 weeks 34808 - 200,0002-3 months 69478 - 100,000 Er Manager Office Visit Reporton 04-14-2024 Er Manager Office Visit Report [facility] [address], [address] [place] [address] OFFICE VISIT Date of Service: 04/14/24 MR#: [id number] Acct: [id number] Name: HANNAH HENDRICKS Rep #: [id number] : 1990 Provider: SHAWN wray Age/Sex: 34/F Location: [facility] Status: Signed Intake Vital Signs 04/01/24 16:16 04/14/24 14:19 04/14/24 14:22 Height 5 ft 6 in 5 ft 6 in 5 ft 6 in Weight: 178 lb 8 oz BMI 28.8 BP 114/78 Intake Visit Reasons: Miscarriage F/U Chief Complaint: Miscarriage F/u Balloon Sander Required: No Is patient in pain?: No Allergies amoxicillin Allergy (Intermediate, Verified 04/14/24 14:19) Rash vancomycin Allergy (Intermediate, Verified 04/14/24 14:19) Rash Penicillins Allergy (Mild, Verified 04/14/24 14:19) hives, breathing issues shellfish derived Allergy (Mild, Verified 04/14/24 14:19) hives Medications ???Medication ???Instructions ???Recorded ???Confirmed ???Type Lactobacillus acidophilus 250 500 mmu cells PO DAILY 04/01/24 04/14/24 History million cell capsule (Probiotic Acidophilus) docosahexaenoic acid 200 mg 200 mg PO DAILY 04/01/24 04/14/24 History capsule ( DHA) Is last menstrual period known: No Post menopausal: No Patient : No : No PFSH Medical History Herniated disc Endometritis following delivery Surgical History Previous back surgery Family History Uncle Colon cancer Liver cancer Grandfather Liver cancer Social History adopted: No household members: spouse housing: house number of children: 1 current occupational status: employed current occupation: [employer] current occupational exposures/hazards: No pets and animals: Yes (cat) history of recent travel: No sexually active: Yes Smoking Status: Former smoker how long ago did patient quit smokin year ago second hand exposure: No alcohol intake: never substance use type: does not use caffeine: Yes what type of physical activity do you participate in: walking and other details: spinning frequency: 3-4 times per week seatbelt use: always do you feel safe at home: Yes additional social history: Eqlnwvi-Nbyb-Inwrh 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 works at [employer] HPI Miscarriage F/U Details: HANNAH HENDRICKS is a 34 year old who presents for follow up miscarriage. No longer bleeding and no pain. She had light positive UPT cycle day 26, spotting started day 28. This is first loss for her. Has 3 year old daughter. History 1 Elective abortions Hx Para 1 Spontaneous abortions Hx # Term Pregnancies Ectopic pregnancies Hx # Pregnancies Multiple births # of living children 1 Past Pregnancies Del. Date Name GA/Weeks Outcome Route Bth Weight Infant Gen Labor Lgth Anesthesia Del Locatn Provider FOB 08/11/20 Janie 39 live - full term 7lbs 8.5oz Female epidural [facility] Dr. [place] Delivery Date: 08/11/20 Last Updated by: Cherelle Reeder Induced ROS Const Constitutional: Reports system reviewed and no additional complaints, except as documented Eyes Eyes: Reports system reviewed and no additional complaints, except as documented GI GI: Denies abdominal pain or change in bowel habits : Reports as per HPI Exam Const General: cooperative and no acute distress Orientation: oriented x3 HENMT Head: normal to inspection and normocephalic Eyes General: appearance normal, both eyes and all related structures Neck Neck: normal visual inspection Resp Effort Inspection: normal respiratory effort Neuro Cognition: normal cognition Speech: speech normal Psych Appearance: grossly normal Mood: congruent mood Affect: normal affect Speech and Movement: speech and movement normal Attitude: cooperative Judgment: judgment good Coding Level of Care Code Off vis,est,level 3 Diagnoses Spontaneous O03.9 Assessment and Plan Assessment and Plan (1) Spontaneous : Status: Acute Comment: 5wk. No intervention Orders: Orders hCG Titer Quant., Serum Today O03.9 - Complete or unspecified spontaneous without complication Plan Discussed probable intervention. HCG pending and if negative, ok to try for . Continue vitamin Call with positive test and will do serial HCGs 04/14/24 1511 Date Barbie Mitchell NP BIOCHEMICAL ENGINEER-C Cosigner Signature: Date (if applicable (more content not included)... Normal [facility] hCG Titer Quant., Serumon HCG QUANT. < 1 Normal 1-3 [facility] Comment on above: Result Comment: hCG levels with Gestational Age Gestational Age hCG mIU/mL (IU/L) 0.2 - 1 week 5 - 50 1-2 weeks 50 - 500 2-3 weeks 100 - 5000 3-4 weeks 500 - 57725 4-5 weeks 1000 - 60911 5-6 weeks 44944 - 100,000 6-8 weeks 35392 - 200,000 2-3 months 25343 - 100,000 Performed By: #### L 700.3596 ####[facility] [address] [place], [place], [id number] HCG ( test) QlOrder ed By: Isabel Marino on 04-06-2024 Human Chorionic Gonadotropin, Quant 6 mIU/mL High <4 [facility] hCG Titer Quant., Serumon HCG QUANT. 6 mIU/mL High 1-3 [facility] Comment on above: Performed By: #### L 700.8000 ####[facility] [address] [place], [address] HCG ( test) QlOrder ed By: Isabel Marino on 04-03-2024 Human Chorionic Gonadotropin, Quant 8 mIU/mL High <4 [facility] hCG Titer Quant., Serumon HCG QUANT. 8 mIU/mL High 1-3 [facility] Comment on above: Performed By: #### L 700.8000 ####[facility] [address] [place], [address] Absolute neutrophil countOrd ered By: Royce Chapin on 04-01-2024 Neutrophils (Bld) [#/Vol] 2.4 10*3/uL 2.0-7.7 [facility] Basic Metabolic Profile (BMP )on 04-01-2024 BUN/CRE 17.1 RATIO Normal - [facility] Comment on above: Performed By: #### L 100.0100, L500.2500, L700.8000 ####[facility] [address] [place], [address] CA,Total 9.2 mg/dL Normal 8.5-10.1 [facility] Comment on above: Performed By: #### L 100.0100, L500.2500, L700.8000 ####[facility] [address] [place], [address] Chloride [Moles/Vol] 108 mmol/L High 98-107 [facility] Comment on above: Performed By: #### L 100.0100, L500.2500, L700.8000 ####[facility] [address] [place], [address] CO2 [Moles/Vol] 29.0 mmol/L Normal 21.0-32.0 [facility] Comment on above: Performed By: #### L 100.0100, L500.2500, L700.8000 ####[facility] [address] [place], [address] Creatinine [Mass/Vol] 0.88 mg/dL Normal 0.55-1.02 [facility] Comment on above: Result Comment: The validity of the calculated GFR GFRAA in patients over 70 years has not been determined. Clinical correlation is essential. Performed By: #### L 100.0100, L500.2500, L700.8000 ####[facility] [address] [place], [address] ECRCL 99.21 ml/min Normal [facility] Comment on above: Performed By: #### L 100.0100, L500.2500, L700.8000 ####[facility] [address] [place], [address] EST GFR - AA 96 mL/min Normal >60 [facility] Comment on above: Result Comment: Afri can [place] GFR Calc Performed By: #### L 100.0100, L500.2500, L700.8000 ####[facility] [address] [place], [address] GAP 2 Low 5-15 [facility] Comment on above: Performed By: #### L 100.0100, L500.2500, L700.8000 ####[facility] [address] [place], [address] GFR/1.73 sq M.predicted among non-blacks MDRD (S/P/Bld) [Vol rate/Area] 79 mL/min/{1.73_m2} Normal >60 [facility] Comment on above: Result Comment: Non- GFR Calc Performed By: #### L 100.0100, L500.2500, L700.8000 ####[facility] [address] [place], [address] Glucose [Mass/Vol] 91 mg/dL Normal 74-106 [facility] Comment on above: Performed By: #### L 100.0100, L500.2500, L700.8000 ####[facility] [address] [place], [address] Potassium [Moles/Vol] 3.6 mmol/L Normal 3.5-5.1 [facility] Comment on above: Performed By: #### L 100.0100, L500.2500, L700.8000 ####[facility] [address] [place], [address] Sodium [Moles/Vol] 139 mmol/L Normal 136-145 [facility] Comment on above: Performed By: #### L 100.0100, L500.2500, L700.8000 ####[facility] [address] [place], [address] Urea nitrogen [Mass/Vol] 15 mg/dL Normal 7-18 [facility] Comment on above: Performed By: #### L 100.0100, L500.2500, L700.8000 ####[facility] [address] [place], [address] Basophil percentageOrdered B y: Royce Chapin on 04-01-2024 Basophils/100 WBC (Bld) 1.2 % High 0-1 [facility] Bilirubin Test strip Ql (U)O rdered By: Royce Chapin on 04-01-2024 Bilirubin Ql (U) Negative Negative [facility] Blood urea nitrogen (BUN)/cr eatinine ratioOrdered By: Royce Chapin on 04-01-2024 Urea nitrogen/Creatinine [Mass ratio] 17.1 mg/mg 10-20 [facility] CBC W/Diff, Automatedon 03-15 Absolute Lymph 1.45 X10 3/uL Normal 0.83-4.51 [facility] Comment on above: Performed By: #### L 100.0100, L500.2500, L700.8000 ####[facility] [address] [place], [address] Absolute Neut 2.4 X10 3/uL Normal 2.0-7.7 [facility] Comment on above: Performed By: #### L 100.0100, L500.2500, L700.8000 ####[facility] [address] [place], [address] Basophils/100 WBC (Bld) 1.2 % High 0-1 [facility] Comment on above: Performed By: #### L 100.0100, L500.2500, L700.8000 ####[facility] [address] [place], [address] Eosinophils/100 WBC (Bld) 8.1 % High 0-5 [facility] Comment on above: Performed By: #### L 100.0100, L500.2500, L700.8000 ####[facility] [address] [place], [address] Erythrocyte distribution width (RBC) [Ratio] 11.4 % Low 11.6-14.6 [facility] Comment on above: Performed By: #### L 100.0100, L500.2500, L700.8000 ####[facility] [address] [place], [address] Hematocrit (Bld) [Volume fraction] 40.6 % Normal 37-47 [facility] Comment on above: Performed By: #### L 100.0100, L500.2500, L700.8000 ####[facility] [address] [place], [address] Hemoglobin (Bld) [Mass/Vol] 13.9 g/dL Normal 12.0-15.0 [facility] Comment on above: Performed By: #### L 100.0100, L500.2500, L700.8000 ####[facility] [address] [place], [address] IG% 0.200 Normal 0.0-0.9 [facility] Comment on above: Result Comment: IG% - Immature Granulocytes (promyelocytes, myelocytes and metamyelocytes) > 1% indicates that a LEFT SHIFT is Present. Performed By: #### L 100.0100, L500.2500, L700.8000 ####[facility] [address] [place], [address] Lymphocytes/100 WBC (Bld) 28.7 % Normal 19-41 [facility] Comment on above: Performed By: #### L 100.0100, L500.2500, L700.8000 ####[facility] [address] [place], [address] MCH (RBC) [Entitic mass] 33.6 pg High 27.0-32.0 [facility] Comment on above: Performed By: #### L 100.0100, L500.2500, L700.8000 ####[facility] [address] [place], [address] MCHC (RBC) [Mass/Vol] 34.2 g/dL Normal 32-36 [facility] Comment on above: Performed By: #### L 100.0100, L500.2500, L700.8000 ####[facility] [address] [place], [address] MCV (RBC) [Entitic vol] 98.1 fL Normal 81-99 [facility] Comment on above: Performed By: #### L 100.0100, L500.2500, L700.8000 ####[facility] [address] [place], [address] Monocytes/100 WBC (Bld) 14.7 % High 0-10 [facility] Comment on above: Performed By: #### L 100.0100, L500.2500, L700.8000 ####[facility] [address] [place], [address] Neutrophils/100 WBC (Bld) 47.1 % Normal 47-70 [facility] Comment on above: Performed By: #### L 100.0100, L500.2500, L700.8000 ####[facility] [address] [place], [address] Nucleated RBC (Bld) [#/Vol] 0 10*3/uL Normal 0-5 [facility] Comment on above: Performed By: #### L 100.0100, L500.2500, L700.8000 ####[facility] [address] [place], [address] Platelet mean volume (Bld) [Entitic vol] 9.1 fL Normal 6.2-12.0 [facility] Comment on above: Performed By: #### L 100.0100, L500.2500, L700.8000 ####[facility] [address] [place], [address] Platelets (Bld) [#/Vol] 306 10*3/uL Normal 150-450 [facility] Comment on above: Performed By: #### L 100.0100, L500.2500, L700.8000 ####[facility] [address] [place], [address] RBC (Bld) [#/Vol] 4.14 10*6/uL Low 4.2-5.4 [facility] Comment on above: Performed By: #### L 100.0100, L500.2500, L700.8000 ####[facility] [address] [place], [address] RDW SD 41.4 fl Normal 35.1-43.9 [facility] Comment on above: Performed By: #### L 100.0100, L500.2500, L700.8000 ####[facility] [address] [place], [address] WBC (Bld) [#/Vol] 5.1 10*3/uL Normal 4.4-11.0 [facility] Comment on above: Performed By: #### L 100.0100, L500.2500, L700.8000 ####[facility] [address] [place], [place], [address] Carbon dioxide measurementOr dered By: Royce Chapin on 04-01-2024 CO2 [Moles/Vol] 29.0 mmol/L 21.0-32.0 [facility] Chloride measurementOrdered By: Royce Chapin on 04-01-2024 Chloride [Moles/Vol] 108 mmol/L High 98-107 [facility] Emergency Department Summary on 04-01-2024 Emergency Department Summary [facility] Medical Records Department [address] [place] [address] Emergency Department Summary 04/01/24 MR#: [id number] Acct: [id number] Name: HANNAH HENDRICKS Rep #: [id number] : 1990 34 From: Royce Chapin DO PCP: Dr. Thomas Salinas MD Status:DEP ER Location: ED HPI HPI - Female History of Present Illness Chief Complaint: Abd Pain Informant: patient Pain Pain: Positive for Pelvic Pain Onset: Today Context: Sudden Onset Timing: Continuous Quality: Positive for Cramping Location: LLQ, Suprapubic and Back Worsened by: - (Nothing) Relieved by: - (Laying on her side) Associated Symptoms Associated Symptoms: Positive for Frequency; Negative for Dysuria or Urgency Test: Positive P: 1 Narrative Narrative: Patient presents with pelvic pain and vaginal bleeding that began today. Patient states it began rather suddenly. Patient states she is approximately 4 weeks . Patient states she had a positive test yesterday. Patient is 2 para 1. Patient admits to some cramping over the suprapubic area. Patient also admits to some pain in her left lower back that radiates around into her left lower quadrant and left inguinal area. Patient states that nothing makes it worse. Patient states it is better when she is able to lay on her side. Patient denies any fevers or chills. Patient denies any dysuria. [facility] Medical History Herniated disc Endometritis following delivery Home Medications ???Medication ???Instructions ???Recorded ???Last Taken ???Type Lactobacillus acidophilus 250 500 mmu cells PO DAILY 04/01/24 Unknown History million cell capsule (Probiotic Acidophilus) docosahexaenoic acid 200 mg 200 mg PO DAILY 04/01/24 Unknown History capsule ( DHA) Allergy/AdvReac Type Severity Reaction Status Date / Time amoxicillin Allergy Intermediate Rash Verified 04/01/24 16:17 vancomycin Allergy Intermediate Rash Verified 04/01/24 16:17 Penicillins Allergy Mild hives, Verified 04/01/24 16:17 breathing issues shellfish derived Allergy Mild hives Verified 04/01/24 16:17 Family History Uncle Colon cancer Liver cancer Grandfather Liver cancer Surgical History Previous back surgery Social History adopted: No household members: spouse housing: house number of children: 1 current occupational status: employed current occupation: [employer] current occupational exposures/hazards: No pets and animals: Yes (cat) history of recent travel: No sexually active: Yes Smoking Status: Former smoker how long ago did patient quit smokin year ago second hand exposure: No alcohol intake: never substance use type: does not use caffeine: Yes what type of physical activity do you participate in: walking and other details: spinning frequency: 3-4 times per week seatbelt use: always do you feel safe at home: Yes additional social history: Jjwbjep-Ycjx-Zfiim 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 works at [employer] ED Constitutional Constitutional ED: Denies chills or fever(s) Eyes Eyes: Denies blurry vision or change in vision ENT ENT ED: Denies rhinorrhea or sore throat Cardiovascular Cardiovascular: Denies chest pain or palpitations Respiratory/Chest Respiratory/Chest: Reports dyspnea; Denies cough Gastrointestinal Gastrointestinal: Denies nausea or vomiting Genitourinary Genitourinary ED: Denies dysuria or hematuria Musculoskeletal Musculoskeletal: Reports back pain; Denies neck pain Integumentary Denies abscess or rash Neurologic Neurologic: Reports headache(s); Denies weakness Allergic/Immunologic Allergic/Immunologic ED: Denies mouth swelling or urticaria EXAM Physical Exam Const Vital Signs: 04/01/24 16:16 04/01/24 18:55 Temperature 98.1 F Temperature Source Temporal Pulse Rate 117 H 78 Respiratory Rate 16 18 Blood Pressure 128/82 H 117/78 Blood Pressure Mean 97 91 Pulse Ox 100 100 Oxygen Delivery Method Room Air Positive well nourished and well developed General Appearance ED: cooperative, well kempt and well developed Orientation / Consciousness: awake HEENT Reports normocephalic and moist oral mucous membranes Neck full ROM, supple and no JVD Resp normal respiratory effort and clear to auscultation bilaterally Cardio regular rate and regular rhythm GI soft to palpation and non-distended Palpation: soft and tender LLQ and suprapubic; Negative for rebound tenderness present Extremity normal to inspection and full ROM Neuro oriented x3, CN (more content not included)... Normal [facility] Eosinophil percentageOrdered By: Royce Chapin on 04-01-2024 Eosinophils/100 WBC (Bld) 8.1 % High 0-5 [facility] Epithelial cells.squamous LM Ql (Urine sed)Ordered By: Royce Chapin on 04-01-2024 Epithelial cells.squamous LM.HPF (Urine sed) [#/Area] 0 /[HPF] 5-10 [facility] Erythrocyte distribution wid th ratioOrdered By: Royce Chapin on 04-01-2024 Erythrocyte distribution width (RBC) [Ratio] 11.4 % Low 11.6-14.6 [facility] Erythrocyte distribution wid th standard deviationOrdered By: Royce Chapin on 04-01-2024 Erythrocyte distribution width (RBC) [Entitic vol] 41.4 fL 35.1-43.9 [facility] Estimated glomerular filtrat ion rate (GFR) AmericanOrdered By: Royce Chapin on 04-01-2024 Estimated GFR (MDRD) Amer 96 mL/min >60 [facility] Comment on above: GFR Calc Estimation of creatinine brad aranceOrdered By: Royce Chapin on 04-01-2024 Estimated Creatinine Clearance Calc 99.21 ml/min [facility] Glomerular filtration rate ( GFR) estimationOrdered By: Royce Chapin on 04-01-2024 Estimated GFR (MDRD) Non-Af Amer 79 mL/min >60 [facility] Comment on above: Non- GFR Calc Glucose Ql (U)Ordered By: Niko Chapin on 04-01-2024 Urine Glucose (UA) Normal mg/dl Normal [facility] Glucose measurementOrdered B y: Royce Chapin on 04-01-2024 Glucose [Mass/Vol] 91 mg/dL 74-106 [facility] HCG ( test) QlOrder ed By: Royce Chapin on 04-01-2024 Human Chorionic Gonadotropin, Quant 9 mIU/mL High <4 [facility] Hematocrit Auto (Bld) [Volum e fraction]Ordered By: Royce Chapin on 04-01-2024 Hematocrit (Bld) [Volume fraction] 40.6 % 37-47 [facility] Hemoglobin measurementOrdere d By: Royce Chapin on 04-01-2024 Hemoglobin (Bld) [Mass/Vol] 13.9 g/dL 12.0-15.0 [facility] Immature granulocytes/100 WB C Auto (Bld)Ordered By: Royce Chapin on 04-01-2024 Immature granulocytes/100 WBC (Bld) 0.200 % 0.0-0.9 [facility] Comment on above: IG% - Immature Granu locytes (promyelocytes, myelocytes and metamyelocytes) > 1% indicates that a LEFT SHIFT is Present. Ketones Test strip Ql (U)Ord ered By: Royce Chapin on 04-01-2024 Ketones Ql (U) Negative Negative [facility] Lymphocytes Auto (Unsp spec) [#/Vol]Ordered By: Royce Chapin on 04-01-2024 Lymphocytes (Bld) [#/Vol] 1.45 10*3/uL 0.83-4.51 [facility] Lymphocytes/100 WBC Auto (Un sp spec)Ordered By: Royce Chapin on 04-01-2024 Lymphocytes/100 WBC (Bld) 28.7 % 19-41 [facility] MCV (mean corpuscular volume ) determinationOrdered By: Royce Chapin on 04-01-2024 MCV (RBC) [Entitic vol] 98.1 fL 81-99 [facility] Mean corpuscular hemoglobin (MCH) determinationOrdered By: Royce Chapin on 04-01-2024 MCH (RBC) [Entitic mass] 33.6 pg High 27.0-32.0 [facility] Mean corpuscular hemoglobin concentration (MCHC) determinationOrdered By: Royce Chapin on 04-01-2024 MCHC (RBC) [Mass/Vol] 34.2 g/dL 32-36 [facility] Mean platelet volume determi nationOrdered By: Royce Chapin on 04-01-2024 Platelet mean volume (Bld) [Entitic vol] 9.1 fL 6.2-12.0 [facility] Microscopic analysis of urin e for red blood cells (RBC)Ordered By: Royce Chapin on 04-01-2024 Urine RBC 10-25 SEEN /hpf 0-5 [facility] Monocyte percentageOrdered B y: Royce Chapin on 04-01-2024 Monocytes/100 WBC (Bld) 14.7 % High 0-10 [facility] Mucus LM Ql (Urine sed)Order ed By: Royce Chapin on 04-01-2024 Mucus Ql (Urine sed) 1+ /hpf [facility] Neutrophil percentageOrdered By: Royce Chapin on 04-01-2024 Neutrophils/100 WBC (Bld) 47.1 % 47-70 [facility] Nitrite Test strip Ql (U)Ord ered By: Royce Chapin on 04-01-2024 Nitrite Ql (U) Negative Negative [facility] Nucleated red blood cell per centageOrdered By: Royce Chapin on 04-01-2024 Nucleated RBC/100 WBC (Bld) [Ratio] 0 % 0-5 [facility] Platelet countOrdered By: Niko Chapin on 04-01-2024 Platelets (Bld) [#/Vol] 306 10*3/uL 150-450 [facility] Potassium measurementOrdered By: Royce Chapin on 04-01-2024 Potassium [Moles/Vol] 3.6 mmol/L 3.5-5.1 [facility] Protein Test strip Ql (U)Ord ered By: Royce Chapin on 04-01-2024 Protein Ql (U) 30 mg/dl High Negative [facility] RBC Auto (Bld) [#/Vol]Ordere d By: Royce Chapin on 04-01-2024 RBC (Bld) [#/Vol] 4.14 10*6/uL Low 4.2-5.4 [facility] Serum anion gap measurementO rdered By: Royce Chapin on 04-01-2024 Anion gap [Moles/Vol] 2 mmol/L Low 5-15 [facility] Serum or plasma calcium tiffanie urement (mass/volume)Ordered By: Royce Chapin on 04-01-2024 Calcium [Mass/Vol] 9.2 mg/dL 8.5-10.1 [facility] Serum or plasma creatinine m easurement (mass/volume)Ordered By: Royce Chapin on 04-01-2024 Creatinine [Mass/Vol] 0.88 mg/dL 0.55-1.02 [facility] Comment on above: The validity of the calculated GFR & GFRAA in patients over 70 years has not been determined. Clinical correlation is essential. Serum or plasma urea nitroge n measurement (mass/volume)Ordered By: Royce Chapin on 04-01-2024 Urea nitrogen [Mass/Vol] 15 mg/dL - [facility] Sodium levelOrdered By: Royce Chapin on 04-01-2024 Sodium [Moles/Vol] 139 mmol/L 136-145 [facility] Transvaginal w/Preg USon Transvaginal w/Preg US [facility] [address] [place] [address] Transvaginal w/Preg US MR#: [id number] Acct: [id number] Name: HANNAH HENDRICKS Rep #: [id number] : 1990 F 34 From: Andi Bliss MD PCP: Dr. Thomas Salinas MD Status: [facility] ER Study: Transvaginal w/Preg US Date of Exam: 04/01/24 Exam# [id number] Ordering Dr: Royce Chapin DO [id number] STUDY: FIRST TRIMESTER OBSTETRICAL ULTRASOUND REASON FOR EXAM: Female, 34 years old Threatened miscarriage LMP: TECHNIQUE: Transvaginal TECHNICAL QUALITY: Adequate. PRIOR ULTRASOUND: None. FINDINGS: There is no evidence for intrauterine gestational sac. The uterus measures 8 x 5 x 3.3 cm. There is no demonstrated uterine fibroid. The cervix is closed. The right ovary measures 2.8 x 2 x 1.7 cm. Multiple small follicles but no dominant cyst. There is no visualized right adnexal mass or complex lesion. The left ovary measures 3.6 x 2 x 2 cm. Multiple small cystic follicles the largest measuring 1.5 x 1.3 x 1.1 cm There is no visualized left adnexal mass or complex lesion. There is no fluid in the cul de sac. US/Transvaginal w/Preg US IMPRESSION: No evidence for intrauterine gestation or definitive evidence for ectopic . Small left ovarian cyst. If clinical concern for ectopic follow-up studies recommended Electronically Signed: Andi Bliss MD at 19:06 EST Reading Location ID and State: [address] [place] [address] Tel , Service support , CC: Dr. Royce Chapin DO; Dr. Thomas Salinas MD Director Instrumentation: Signed Normal [facility] Urinalysis, Completeon 04-01 BACTERIA 1+ /hpf Normal None Seen [facility] Comment on above: Order Comment: CLEAN CATCH Performed By: #### L 400.0001 #### [facility] [address] [place], [address] EPI,SQUAMOUS 0-5 SEEN Normal 5-10 [facility] Comment on above: Order Comment: CLEAN CATCH Performed By: #### L 400.0001 #### [facility] [address] [place], [address] Mucus Ql (Urine sed) 1+ /hpf Normal [facility] Comment on above: Order Comment: CLEAN CATCH Performed By: #### L 400.0001 #### [facility] [address] [place], [address] RBC 10-25 SEEN Normal 0-5 [facility] Comment on above: Order Comment: CLEAN CATCH Performed By: #### L 400.0001 #### [facility] [address] [place], [address] WBC 5-10 SEEN Normal 0-5 [facility] Comment on above: Order Comment: CLEAN CATCH Performed By: #### L 400.0001 #### [facility] [address] [place], [place], [id number] Urine blood detectionOrdered By: Royce Chapin on 04-01-2024 Urine Occult Blood 250 /ul High Negative [facility] Urine clarityOrdered By: Lauren Chapin on 04-01-2024 Clarity (U) Sl. Cloudy Clear [facility] Urine color determinationOrd ered By: Royce Chapin on 04-01-2024 Color (U) Yellow Yellow [facility] Urine leukocyte esterase det ection by dipstickOrdered By: Royce Chapin on 04-01-2024 Leukocyte esterase Test strip Ql (U) 25 /ul High Negative [facility] Urine pHOrdered By: Royce adam on 04-01-2024 pH (U) 7.0 [pH] 5.0 - 8.0 [facility] Urine sediment bacteria coun t by microscopy (number/high power field)Ordered By: Royce Chapin on 04-01-2024 Bacteria LM.HPF (Urine sed) [#/Area] 1 /[HPF] None Seen [facility] Urine specific gravity measu rementOrdered By: Royce Chapin on 04-01-2024 Specific gravity (U) [Rel density] 1.015 1.002-1.030 [facility] Urobilinogen Ql (U)Ordered B y: Royce Chapin on 04-01-2024 Urine Urobilinogen Normal mg/dl Normal [facility] White blood cell (WBC) count Ordered By: Royce Chapin on 04-01-2024 WBC (Bld) [#/Vol] 5.1 10*3/uL 4.4-11.0 [facility] White blood cell countOrdere d By: Royce Chapin on 04-01-2024 Urine WBC 5-10 SEEN /hpf 0-5 [facility] hCG Titer Quant., Serumon HCG QUANT. 9 mIU/mL High 1-3 [facility] Comment on above: Performed By: #### L 100.0100, L500.2500, L700.8000 ####[facility] [address] [place], [address] C diff Tox gens Stl Ql YANDY+p robeon 07-29-2023 C. difficile toxin genes YANDY+probe Ql (Stl) Negative Normal Negative for C. difficile toxin by PCR [facility] Comment on above: Order Comment: Speci men Type: STOOL SPECIMEN Ordering Facility: [facility] Address: [address] [place] [address] Performed By: #### 5 4067-4 #### [facility] CLIA [id number] [address] [place] [address] [place] Gastrointestinal pathogens i dentified YANDY+probe Nom (Stl)on 07-29-2023 Campylobacter sp DNA YANDY+probe Nom (Unsp spec) Not detected Normal Not Detected [facility] Comment on above: Order Comment: Speci men Type: STOOL SPECIMEN Ordering Facility: [facility] Address: [address] [place] [address] Performed By: #### 7 9390-1 #### [facility] CLIA [id number] [address] [place] [address] [place] Salmonella sp DNA YANDY+probe Ql (Unsp spec) Not detected Normal Not Detected [facility] Comment on above: Order Comment: Speci men Type: STOOL SPECIMEN Ordering Facility: [facility] Address: [address] [place] [address] Performed By: #### 7 9390-1 #### [facility] CLIA [id number] [address] [place] [address] Shiga toxin stx gene YANDY+probe Nom (Unsp spec) Not detected Normal Not Detected [facility] Comment on above: Order Comment: Speci men Type: STOOL SPECIMEN Ordering Facility: [facility] Address: [address] [place] [address] Performed By: #### 7 9390-1 #### [facility] CLIA [id number] [address] [place] [address] Shigella sp DNA YANDY+probe Ql (Unsp spec) Not detected Normal Not Detected [facility] Comment on above: Order Comment: Speci men Type: STOOL SPECIMEN Ordering Facility: [facility] Address: [address] [place] [address] Performed By: #### 7 9390-1 #### [facility] CLIA [id number] [address] [place] [address] OF CEM O+P Spec Microon 07-29-2023 Ova and parasites identified LM Nom (Unsp spec) OVA AND PARASITE EXAM: No Parasites Seen Normal [facility] Comment on above: Performed By: #### 6 73-4 #### [facility] CLIA [id number] [address] [place] [address] OF CEM CNOVon 07-27-2023 CNOV Office Visit ([facility] ) HANNAH [id number]) 1990 F Date Time Provider Department 07/27/23 10:50 AM [facility] During your visit today, we recorded the following information about you: Temperature Pulse Respiration Blood pressure 97.7 degrees 98/minute 18/minute 117/69 Weight 73 kg Diana TrejoAPRN.RESERVATIONS CLERK 07/27/2023 12:13 PM Addendum Assessment and Plan: Hemodynamically stable. Well hydrated. Nontoxic. Reinforced if Hannah continues to have persistent symptoms despite our plan of care and intervention(s) over the next 48-72hrs, Hannah would benefit most from re-evaluation by her primary care team. Worsening symptoms within the next 48 hours would benefit most by re-evaluation in the emergency room. Hannah verbalizes understanding of plan of care today, which was discussed at length using shared decision making. Hannah has no further questions or concerns at this time. Hannah agrees we have a good plan in place for hopeful improvement/resolutio n of symptoms based on the history provided to me and physical exam findings today. 1. Diarrhea, unspecified type - ICD9: 787.91, ICD10: R19.7 Suspect a viral gastroenteritis. Will send stool studies out of an abundance of caution. Diarrhea can be caused by many different conditions. The most common cause is viral illness. Food poisoning, bacterial infection, and reactions to medicine (especially antibiotics and antacids) may also be the cause. Most of the time diarrhea improves after 2-3 days of rest and oral fluid replacement. You should drink enough clear fluids (water, sodas, Gatorade) to prevent dehydration. Adults must drink at least 2-3 quarts daily. Solid foods and dairy products must be avoided until your illness improves; then only small amounts may be included in your diet for several days. Medicine to control cramping and diarrhea may be helpful. If you have a fever or blood in the stool, however, these medicines should be avoided as they may prolong your illness. Antibiotics can speed recovery from diarrhea due to some bacterial infections, but may cause complications. Please be evaluated in the emergency department if you have fever, blood in the stool, vomiting, or become more dehydrated. - May use immodium in the mean time - ENTERIC BACTERIAL PANEL BY PCR - C. DIFFICILE PCR - OVA + PARA MICROSCOPIC If you were prescribed a medication, PLEASE allow the pharmacy 1-2 hours to prepare your prescription. If symptoms do not improve in 3-5 days, contact your Primary Care Provider. If symptoms progressively worsen, report to ER for evaluation. Patient verbalized understanding of plan. Please follow up with Primary Care Provider or with a Specialist if consulted for current condition. Go to the ER immediately if you have any of the following symptoms: Chest pain, shortness of breath, severe headache, high fever, nausea, vomiting, abdominal pain, dizziness/light headedness, feeling like you are going to pass out, weakness, or for any other new or worsening symptoms. Diana Trejo APRN.RESERVATIONS CLERK 07/27/2023 12:13 PM Signed [facility] Visit Patient Name: Hannah Hendricks Primary Care Physician: Thomas Salinas MD Service Date: 07/27/2023 SUBJECTIVE: Hannah is an pleasant otherwise well 33 year old female who is here today accompanied by her Mom for evaluation of symptom(s)/complaint( s) as below. Presenting with concern of persistent diarrhea since 07/24/2023. Traveled for work recently to [place]. Had salmon Saturday evening upon arrival to her hotel. Also enjoyed some lunch meat before embarking on her trip back home. Diarrhea started Saturday evening. Tells me she has had 37 episodes in 12 hours of diarrhea. Denies dizziness or lightheadedness. No recent antibiotic courses. She is not on any immunosuppression. Denies blood in the stool. Most concerned for ruling in/out C. difficile. Denies fevers or chills. Denies abdominal pain. Still has her gallbladder. Denies nausea or vomiting. Feels bloated with anything that she eats, and tells me that anything she eats or drinks comes right out. Pertinent medical history as below: PAST MEDICAL HISTORY Diagnosis Date NEGATIVE MEDICAL HISTORY ALLERGIES Penicillins, Shellfish, and Vancomycin MEDICATIONS Current Outpatient Medications Medication Sig methocarbamol (ROBAXIN-750) 750 mg tablet Take 1 tablet by mouth three times daily as needed. Acetaminophen 500 mg cap Take 1,000 mg by mouth every 6 hours as needed for pain. levonorgestrel (MIRENA) 20 mcg/24 hours (7 yrs) 52 mg IUD 1 Each by INTRAUTERINE route one time only. Placed September 2020 gabapentin (NEURONTIN) 300 mg capsule Take 1 capsule in the morning Take 1 capsule in the afternoon Take 2 capsules at bedtime oxyCODONE-acetaminoph en (PERCOCET) 5-325 mg tablet Take 1 (more content not included)... Normal [facility] ALLIED HEALTHon 05-16-2023 ALLIED HEALTH HNO ID: [id number] Author: AMANDA AMARAL CT Service: Radiology Author Type: Technologist Type: Allied Health Filed: 05/16/2023 16:34 Note Text: Radiology Service Progress Note PATIENT NAME: Hannah Hendricks DATE OF SERVICE: May 16, 2023 TIME: 4:33 PM PATIENT IDENTITY VERIFICATION COMPLETED USING TWO (2) IDENTIFIERS: Name and Date of confirmed by patient verbally and Name and Date of confirmed by identification band. FALL SCREENING: Has the patient had 2 falls in the last year or 1 fall with injury or currently using an Ambulatory Assistive Device (Walker, Cane, Wheelchair, Crutches, etc.)? Emergency Room Patient: Screened in ED PATIENT GENDER DATA: Female. status: : No status: NO. PATIENT RELEVANT IMPLANT DATA REVIEWED: Not Applicable PATIENT PRESENTS WITH AN IMPLANTABLE OR ATTACHED CROP OR GRAIN FARMWORKER: No RADIOLOGY DEPARTMENT: CT; Exam(s) Completed: Brain PERIPHERAL IV DATA: Not applicable SIGNED BY: SIMON Quinn May 16, 2023 4:33 PM Normal [facility] CBC W Auto Differential pane l (Bld)on 05-16-2023 Basophils (Bld) [#/Vol] 0.04 10*3/uL Normal <0.11 [facility] Comment on above: Order Comment: Speci men Type: BLOOD SPECIMENOrdering Facility: [facility] Address: [address] [place] [address] Performed By: #### 5 7021-8 ####[facility]ORY[facility] [id number] [place] [address] [place] Basophils/100 WBC (Bld) 0.6 % Normal [facility] Comment on above: Order Comment: Speci men Type: BLOOD SPECIMENOrdering Facility: [facility] Address: [address] [place] [address] Performed By: #### 5 7021-8 ####[facility]ORY[facility] [id number] [address] [place] Differential cell count method Nom (Bld) Auto Normal [facility] Comment on above: Order Comment: Speci men Type: BLOOD SPECIMENOrdering Facility: [facility] Address: [address] [place] [address] Performed By: #### 5 7021-8 ####[facility]ORYCLIA [id number] [place] [address] [place] Eosinophils (Bld) [#/Vol] 0.61 10*3/uL High <0.46 [facility] Comment on above: Order Comment: Speci men Type: BLOOD SPECIMENOrdering Facility: [facility] Address: [address] [place] [address] Performed By: #### 5 7021-8 ####[facility]ORYCLIA [id number] [address] [place] Eosinophils/100 WBC (Bld) 8.4 % Normal [facility] Comment on above: Order Comment: Speci men Type: BLOOD SPECIMENOrdering Facility: [facility] Address: [address] [place] [address] Performed By: #### 5 7021-8 ####[facility]ORYCLIA [id number] [address] [place] Erythrocyte distribution width (RBC) [Ratio] 11.6 % Normal 11.5-15.0 [facility] Comment on above: Order Comment: Speci men Type: BLOOD SPECIMENOrdering Facility: [facility] Address: [address] [place] [address] Performed By: #### 5 7021-8 ####[facility]ORYCLIA [id number] [address] [place] Hematocrit (Bld) [Volume fraction] 37.8 % Normal 36.0-46.0 [facility] Comment on above: Order Comment: Speci men Type: BLOOD SPECIMENOrdering Facility: [facility] Address: [address] [place] [address] Performed By: #### 5 7021-8 ####[facility]ORYCLIA [id number] [place] [address] [place] Hemoglobin (Bld) [Mass/Vol] 12.9 g/dL Normal 11.5-15.5 [facility] Comment on above: Order Comment: Speci men Type: BLOOD SPECIMENOrdering Facility: [facility] Address: [address] [place] [address] Performed By: #### 5 7021-8 ####[facility]ATORYCLIA [id number] [place] [address] [place] Immature granulocytes (Bld) [#/Vol] 10*3/uL Normal <0.10 [facility] Comment on above: Order Comment: Speci men Type: BLOOD SPECIMENOrdering Facility: [facility] Address: [address] [place] [address] Performed By: #### 5 7021-8 ####[facility]ORYCLIA [id number] [address] OF [place] Immature granulocytes/100 WBC (Bld) 0.1 % Normal [facility] Comment on above: Order Comment: Speci men Type: BLOOD SPECIMENOrdering Facility: [facility] Address: [address] [place] [address] Performed By: #### 5 7021-8 ####[facility]ATORYCLIA [id number] [place] [address] [place] Lymphocytes (Bld) [#/Vol] 2.34 10*3/uL Normal 1.00-4.00 [facility] Comment on above: Order Comment: Speci men Type: BLOOD SPECIMENOrdering Facility: [facility] Address: [address] [place] [address] Performed By: #### 5 7021-8 ####[facility]ORYCLIA [id number] [address] OF [place] Lymphocytes/100 WBC (Bld) 32.3 % Normal [facility] Comment on above: Order Comment: Speci men Type: BLOOD SPECIMENOrdering Facility: [facility] Address: [address] [place] [address] Performed By: #### 5 7021-8 ####[facility]ORYCLIA [id number] [address] MCH (RBC) [Entitic mass] 33.1 pg Normal 26.0-34.0 [facility] Comment on above: Order Comment: Speci men Type: BLOOD SPECIMENOrdering Facility: [facility] Address: [address] [place] [address] Performed By: #### 5 7021-8 ####[facility]ORYCLIA [id number] [address] OF [place] MCHC (RBC) [Mass/Vol] 34.1 g/dL Normal 30.5-36.0 [facility] Comment on above: Order Comment: Speci men Type: BLOOD SPECIMENOrdering Facility: [facility] Address: [address] [place] [address] Performed By: #### 5 7021-8 ####[facility]ORYCLIA [id number] [address] MCV (RBC) [Entitic vol] 96.9 fL Normal 80.0-100.0 [facility] Comment on above: Order Comment: Speci men Type: BLOOD SPECIMENOrdering Facility: [facility] Address: [address] [place] [address] Performed By: #### 5 7021-8 ####[facility]ATORYCLIA [id number] [address] Monocytes (Bld) [#/Vol] 0.97 10*3/uL High <0.87 [facility] Comment on above: Order Comment: Speci men Type: BLOOD SPECIMENOrdering Facility: [facility] Address: [address] [place] [address] Performed By: #### 5 7021-8 ####[facility]ORYCLIA [id number] [address] Monocytes/100 WBC (Bld) 13.4 % Normal [facility] Comment on above: Order Comment: Speci men Type: BLOOD SPECIMENOrdering Facility: [facility] Address: [address] [place] [address] Performed By: #### 5 7021-8 ####[facility]ORATORYCLIA [id number] [place] [address] [place] Neutrophils (Bld) [#/Vol] 3.27 10*3/uL Normal 1.45-7.50 [facility] Comment on above: Order Comment: Speci men Type: BLOOD SPECIMENOrdering Facility: [facility] Address: [address] [place] [address] Performed By: #### 5 7021-8 ####[facility]ATORYCLIA [id number] [place] [address] [place] Neutrophils/100 WBC (Bld) 45.2 % Normal [facility] Comment on above: Order Comment: Speci men Type: BLOOD SPECIMENOrdering Facility: [facility] Address: [address] [place] [address] Performed By: #### 5 7021-8 ####[facility]ORATORYCLIA [id number] [place] [address] [place] Nucleated RBC (Bld) [#/Vol] 10*3/uL Normal <0.01 [facility] Comment on above: Order Comment: Speci men Type: BLOOD SPECIMENOrdering Facility: [facility] Address: [address] [place] [address] Performed By: #### 5 7021-8 ####[facility]ATORYCLIA [id number] [address] OF [place] Nucleated RBC/100 WBC (Bld) [Ratio] 0.0 /100 WBC Normal [facility] Comment on above: Order Comment: Speci men Type: BLOOD SPECIMENOrdering Facility: [facility] Address: [address] [place] [address] Performed By: #### 5 7021-8 ####[facility]ORATORYCLIA [id number] [place] [address] [place] Platelet mean volume (Bld) [Entitic vol] 9.2 fL Normal 9.0-12.7 [facility] Comment on above: Order Comment: Speci men Type: BLOOD SPECIMENOrdering Facility: [facility] Address: [address] [place], [place] [address] Performed By: #### 5 7021-8 ####[facility] LABORATORYCLIA [id number] [place] [address] [facility] OF C[place] Platelets (Bld) [#/Vol] 298 10*3/uL Normal 150-400 [facility] Comment on above: Order Comment: Speci men Type: BLOOD SPECIMENOrdering Facility: [facility] Address: [address] [place] [address] Performed By: #### 5 7021-8 ####[facility]ORATORYCLIA [id number] [place] [address] [place] RBC (Bld) [#/Vol] 3.90 10*6/uL Normal 3.90-5.20 [facility] Comment on above: Order Comment: Speci men Type: BLOOD SPECIMENOrdering Facility: [facility] Address: [address] [place] [address] Performed By: #### 5 7021-8 ####[facility]ATORYCLIA [id number] [address] STATES OF [place] WBC (Bld) [#/Vol] 7.24 10*3/uL Normal 3.70-11.00 [facility] Comment on above: Order Comment: Speci men Type: BLOOD SPECIMENOrdering Facility: [facility] Address: [address] [place] [address] Performed By: #### 5 7021-8 ####[facility]ATORYCLIA [id number] [address] [place] [address] BRAIN WO IVCONon 05-16-[address] BRAIN WO IVCON * * *Final Report* * * DATE OF EXAM: May 16 2023 4:35PM [facility] 0504 - CT BRAIN WO IVCON / PROCEDURE REASON: Syncope, simple, normal neuro exam * * * * Physician Interpretation * * * * EXAMINATION: CT BRAIN WO IVCON 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 Pt had a near syncopal episode today. Pt had episode of dizziness followed by blurred vision when getting up to the bathroom at work. Pt has had similar episodes before but has been unresolved. CLINICAL HISTORY: 33 years old Female with Syncope, simple, normal neuro exam TECHNIQUE: Serial axial images without IV contrast were obtained from the vertex to the foramen magnum. MQ: CTBWO_3 CT Radiation dose: Integrated Dose-Length Product (DLP) for this visit = 748 mGy*cm CT Dose Reduction Employed: Automated exposure control(AEC) and iterative recon COMPARISON: None. RESULT: Post-operative change: None. Acute change: No evidence of an acute intracranial process. Hemorrhage: No evidence of acute intracranial hemorrhage. ECASS hemorrhagic transformation score: Not Applicable Mass Lesion / Mass Effect: There is no evidence of an intracranial mass or extraaxial fluid collection. No significant mass effect. Chronic change: None apparent. Parenchyma: There is no significant volume loss. The brain parenchyma is otherwise within normal limits for age. Ventricles: The ventricles are within normal limits of size and configuration for age. Paranasal sinuses and skull base: The visualized paranasal sinuses are grossly clear. The skull base and imaged soft tissues are unremarkable. 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 IMPRESSION: No CT evidence of acute intracranial abnormality. Director Instrumentation: RAYSA Transcribe Date/Time: May 16 2023 5:13P Dictated by : CHRISTINA MONAHAN DO This examination was interpreted and the report reviewed and electronically signed by: CHRISTINA MONAHAN DO on May 16 2023 5:30PM EST [id number] N Normal [facility] Comprehensive metabolic 2000 panelon 05-16-2023 Albumin [Mass/Vol] 4.4 g/dL Normal 3.9-4.9 [facility] Comment on above: Order Comment: Carlos A villeda Type: BLOOD SPECIMENOrdering Facility: [facility] Address: [address] [place] [address] Performed By: #### L [id number], 97589-2, 04993-2 ####[facility]ORATORYCLIA [id number] [place] [address] [place] ALP [Catalytic activity/Vol] 50 U/L Normal 34-123 [facility] Comment on above: Order Comment: Carlos A villeda Type: BLOOD SPECIMENOrdering Facility: [facility] Address: [address] [place] [address] Performed By: #### L [id number], , ####[facility]ORATORYCLIA [id number] [place] [address] [place] ALT [Catalytic activity/Vol] 9 U/L Normal 7-38 [facility] Comment on above: Order Comment: Speci men Type: BLOOD SPECIMENOrdering Facility: [facility] Address: [address] [place], [place] [address] Performed By: #### L [id number], , ####[facility] LABORATORYCLIA [id number] [place] [address] [place] Anion gap [Moles/Vol] 8 mmol/L Low 9-18 [facility] Comment on above: Order Comment: Speci men Type: BLOOD SPECIMENOrdering Facility: [facility] Address: [address] [place] [address] Performed By: #### L [id number], , ####[facility] LABORATORYCLIA [id number] [address] STATES [facility] AST [Catalytic activity/Vol] 19 U/L Normal 13-35 [facility] Comment on above: Order Comment: Speci men Type: BLOOD SPECIMENOrdering Facility: [facility] Address: [address] [place] [address] Performed By: #### L [id number], , ####[facility] LABORATORYCLIA [id number] [place] [address] [place] Bilirubin [Mass/Vol] 0.4 mg/dL Normal 0.2-1.3 [facility] Comment on above: Order Comment: Speci men Type: BLOOD SPECIMENOrdering Facility: [facility] Address: [address] [place] [address] Performed By: #### L [id number], , ####[facility] LABORATORYCLIA [id number] [place] [address] [place] Calcium [Mass/Vol] 8.8 mg/dL Normal 8.5-10.2 [facility] Comment on above: Order Comment: Speci men Type: BLOOD SPECIMENOrdering Facility: [facility] Address: [address] [place] [address] Performed By: #### L [id number], , ####[facility] LABORATORYCLIA [id number] [place] [address] [place] Chloride [Moles/Vol] 108 mmol/L High 97-105 [facility] Comment on above: Order Comment: Speci men Type: BLOOD SPECIMENOrdering Facility: [facility] Address: [address] [place] [address] Performed By: #### L [id number], , ####[facility] LABORATORYCLIA [id number] [place] [address] [place] CO2 [Moles/Vol] 26 mmol/L Normal 22-30 [facility] Comment on above: Order Comment: Speci men Type: BLOOD SPECIMENOrdering Facility: [facility] Address: [address] [place] [address] Performed By: #### L [id number], , ####[facility] LABORATORYCLIA [id number] [place] [address] [place] Creatinine [Mass/Vol] 0.76 mg/dL Normal 0.58-0.96 [facility] Comment on above: Order Comment: Speci men Type: BLOOD SPECIMENOrdering Facility: [facility] Address: [address] [place] [address] Performed By: #### L [id number], , ####URBAN LABORATORYCLIA [id number] [address] Creatinine and Glomerular filtration rate.predicted panel (S/P/Bld) 108 mL/min/1.73m??? Normal >=60 [facility] Comment on above: Order Comment: Speci men Type: BLOOD SPECIMENOrdering Facility: [facility] Address: [address] [place] [address] Result Comment: Vickie mated Glomerular Filtration Rate (eGFR) is calculated using the 2020 CKD-EPI creatinine equation. This equation utilizes serum creatinine, sex, and age as parameters. The creatinine assay has traceable calibration to isotope dilution-mass spectrometry. Refer to KDIGO guidelines for clinical interpretation. In patients with unstable renal function, e.g. those with acute kidney injury, the eGFR may not accurately reflect actual GFR. Performed By: #### L [id number], 22150-0, ####[facility] LABORATORYCLIA [id number] [place] [address] [place] Glucose [Mass/Vol] 80 mg/dL Normal 74-99 [facility] Comment on above: Order Comment: Speci men Type: BLOOD SPECIMENOrdering Facility: [facility] Address: [address] [place], [place] [id number] Result Comment: The [place] Diabetes [employer] (ADA) provides guidance for cutoff values for fasting glucose and random glucose. The ADA defines fasting as no caloric intake for at least 8 hours. Fasting plasma glucose results between 100 to 125 mg/dL indicate increased risk for diabetes (prediabetes). Fasting plasma glucose results greater than or equal to 126 mg/dL meet the criteria for diagnosis of diabetes. In the absence of unequivocal hyperglycemia, results should be confirmed by repeat testing. In a patient with classic symptoms of hyperglycemia or hyperglycemic crisis, random plasma glucose results greater than or equal to 200 mg/dL meet the criteria for diagnosis of diabetes. Reference: Standards of Medical Care in Diabetes 2016, [place] [employer]. Diabetes Care. 2016.39(Suppl 1). Performed By: #### L [id number], , ####ACCORD LABORATORYCLIA [id number] [place] [address] [place] Potassium [Moles/Vol] 3.7 mmol/L Normal 3.7-5.1 [facility] Comment on above: Order Comment: Carlos A villeda Type: BLOOD SPECIMENOrdering Facility: [facility] Address: [address] [place] [address] Performed By: #### L [id number], , ####[facility] LABORATORYCLIA [id number] [place] [address] [place] Protein [Mass/Vol] 6.8 g/dL Normal 6.3-8.0 [facility] Comment on above: Order Comment: Speci men Type: BLOOD SPECIMENOrdering Facility: [facility] Address: [address] [place] [address] Performed By: #### L [id number], , ####[facility] LABORATORYCLIA [id number] [address] Sodium [Moles/Vol] 142 mmol/L Normal 136-144 [facility] Comment on above: Order Comment: Speci men Type: BLOOD SPECIMENOrdering Facility: [facility] Address: [address] [place] [address] Performed By: #### L [id number], , ####[facility] LABORATORYCLIA [id number] [address] Urea nitrogen [Mass/Vol] 12 mg/dL Normal 7-21 [facility] Comment on above: Order Comment: Speci men Type: BLOOD SPECIMENOrdering Facility: [facility] Address: [address] [place] [address] Performed By: #### L [id number], , ####[facility] LABORATORYCLIA [id number] [address] D dimer FEU PPP-mCncon 05-16 Fibrin D-dimer FEU (PPP) [Mass/Vol] 300 ng/mL FEU Normal <500 [facility] Comment on above: Order Comment: Speci men Type: BLOOD SPECIMENOrdering Facility: [facility] Address: [address] [place] [address] Performed By: #### 4 8065-7 ####[facility]AN LABORATORYCLIA [id number] [address] ECG COMPLETEon 05-16-2023 ECG COMPLETE Ventricular Rate : 9 5 BPM Atrial Rate : 95 BPM P-R Interval : 146 ms QRS Duration : 100 ms Q-T Interval : 368 ms QTC Calculation(Bazett) : 462 ms Calculated P [place] : 73 degrees Calculated R [place] : 88 degrees Calculated T [place] : 64 degrees NORMAL SINUS RHYTHM INCOMPLETE RIGHT BUNDLE BRANCH BLOCK BORDERLINE ECG no stemi Confirmed by Steve SCOTT ERIKA ([id number]), brands editor ASHWINI JACKSON (1940) on 05/17/2023 8:51:33 AM NAME : HANNAH HENDRICKS PID : [id number] : 1990 Gender : Female Race : ORD : [id number] Procedure Date : May 16 2023 15:03:41 Edit Date : May 17 2023 08:51:39 Diagnosis: NORMAL SINUS RHYTHM INCOMPLETE RIGHT BUNDLE BRANCH BLOCK BORDERLINE ECG no stemi Confirmed by Steve SCOTT ERIKA ([id number]), brands editor ASHWINI JACKSON (1940) on 05/17/2023 8:51:33 AM Test Reason : Chest Pain Location : 1 : ER ED Overread By : Steve SCOTT ERIKA Edited By : ASHWINI JACKSON Referred By : , Acquired by : brown [facility] ED NOTEon 05-16-2023 ED NOTE HNO ID: [id number] Author: ESTEBAN MCFADDEN RN Service: Nursing Author Type: Registered Nurse Type: ED Notes Filed: 05/16/2023 18:59 Note Text: Pt discharged to home in stable condition. No noted distress - respirations equal and unlabored. AVS and medications reviewed. Pt verbalized understanding and importance of follow up care. No questions for this RN at this time. [facility] ED NOTE HNO ID: [id number] Author: DHARMESH DAVIS RN Service: ? Author Type: Registered Nurse Type: ED Notes Filed: 05/16/2023 15:08 Note Text: Pt presents to ED from home by EMS. Pt had a near syncopal episode today. Pt had episode of dizziness followed by blurred vision when getting up to the bathroom at work. Pt has had similar episodes before but has been unresolved. Pt had subway earlier today. BG was 128 in EMS. Vitals stbale. AANDOx3. Resolution of symptoms at this time. [facility] ED NOTE HNO ID: [id number] Author: ERIC GOFF RN Service: ? Author Type: Registered Nurse Type: ED Notes Filed: 05/16/2023 14:54 Note Text: Bed: ED-02 Expected date: Expected time: Means of arrival: [facility] Fire/EMS Comments: [facility] ED PROV NOTEon 05-16-2023 ED PROV NOTE HNO ID: [id number] Author: MAGDA SCOTT MD Service: ? Author Type: Physician Type: ED Provider Notes Filed: 05/16/2023 18:51 Note Text: ED Provider Note Patient Name: Hannah Hendricks : 1990 SERVICE DATE: 05/16/23 History Patient presents with: Dizziness: [place] flushed, dizzy, while using the restroom. Had subway earlier today. Patient presents with near syncopal episode while at work. Patient reports being previously healthy when she walked to the bathroom. She noticed in the bathroom she had a flushed face and her fit bit showed her heart rate was 130. She noticed some chest tightness and feeling lightheaded during this time. The symptoms continued when walking back to her office where she sat down in a recliner and then she noted pain in her posterior head. She continued to be tachycardic so 911 was called. PAST MEDICAL HISTORY Diagnosis Date NEGATIVE MEDICAL HISTORY PAST SURGICAL HISTORY Procedure Laterality Date BACK SURGERY HX 12/2021 lumbar discectomy NONE FAMILY HISTORY Problem Relation Age of Onset other (Other) Mother fibrocystic breast disease Colon Cancer Maternal Uncle Pancreatic Cancer Maternal Grandfather Social History Tobacco Use Smoking status: Former Packs/day: 0.80 Years: 5.00 Additional pack years: 0.00 Total pack years: 4.00 Types: Cigarettes Quit date: 10/13/2013 Years since quittin.5 Smokeless tobacco: Never Tobacco comments: Last e cig 2 weeks ago Substance and Sexual Activity Alcohol use: Yes Comment: a glass of wine twice a week Drug use: No Sexual activity: Yes Partners: Female control/protection: I.U.D. Comment: Mirena 10/03 ALLERGIES Allergen Reactions Penicillins Hives Shellfish Swelling, Shortness of Breath Vancomycin Itching Review of Systems Constitutional: Negative for chills and fever. HENT: Negative for congestion, rhinorrhea, sinus pressure, sinus pain, sneezing and sore throat. Eyes: Negative for visual disturbance. Respiratory: Negative for cough and shortness of breath. Cardiovascular: Positive for chest pain and palpitations. Negative for leg swelling. Gastrointestinal: Negative for abdominal pain, diarrhea, nausea and vomiting. Genitourinary: Negative for difficulty urinating, dysuria, flank pain and hematuria. Musculoskeletal: Negative for back pain, myalgias and neck stiffness. Skin: Negative for pallor. Neurological: Positive for light-headedness and headaches. Negative for dizziness and weakness. Psychiatric/Behaviora l: Negative for confusion. All other systems reviewed and are negative. Physical Exam Vitals [05/16/23 1458] BP Pulse Temp Temp src Resp SpO2 Weight Height 122/70 (!) 100 -- -- 16 100 % 72.6 kg (160 lb) -- Physical Exam Vitals and nursing note reviewed. Constitutional: General: She is not in acute distress. Appearance: Normal appearance. She is well-developed. HENT: Head: Normocephalic and atraumatic. Right Ear: External ear normal. Left Ear: External ear normal. Nose: Nose normal. Mouth/Throat: Mouth: Mucous membranes are moist. Pharynx: Oropharynx is clear. Eyes: Conjunctiva/sclera: Conjunctivae normal. Pupils: Pupils are equal, round, and reactive to light. Cardiovascular: Rate and Rhythm: Normal rate and regular rhythm. Heart sounds: Normal heart sounds. No murmur heard. Pulmonary: Effort: Pulmonary effort is normal. No respiratory distress. Breath sounds: Normal breath sounds. No stridor. No wheezing or rales. Chest: Chest wall: No tenderness. Abdominal: General: Bowel sounds are normal. There is no distension. Palpations: Abdomen is soft. Tenderness: There is no abdominal tenderness. There is no rebound. Musculoskeletal: General: No tenderness. Normal range of motion. Cervical back: Normal range of motion and neck supple. Lymphadenopathy: Cervical: No cervical adenopathy. Skin: General: Skin is warm and dry. Capillary Refill: Capillary refill takes less than 2 seconds. Findings: No erythema or rash. Neurological: General: No focal deficit present. Mental Status: She is alert and oriented to person, place, and time. Cranial Nerves: No cranial nerve deficit. Psychiatric: Behavior: Behavior normal. Thought Content: Thought content normal. Judgment: Judgment normal. Diagnostic Testing ED Labs Ordered and Reviewed COMP METABOLIC PANEL - Abnormal; Notable for the following components: Result Value Ref Range Chloride 108 (*) 97 - 105 mmol/L Anion Gap 8 (*) 9 - 18 mmol/L All other components within normal limits CBC + DIFF - Abnormal; Notable for the following components: Abs [place] 0.97 (*) <0.87 k/uL Abs [place]osin 0.61 (*) <0.46 k/uL All other components within normal limits HCG QUAL BLD - Normal HIGH SENSITIVITY TROPONIN T (INITIAL) MAGNESIUM BLD Procedures ED Course / Clinical Impression Clinical Impressions as of 05/16/23 1824 Sinus tach (more content not included)... Normal [facility] HCG QUAL BLDon 05-16-2023 HCG, QUALITATIVE Negative Normal Negative [facility] Comment on above: Order Comment: Carlos A villeda Type: BLOOD SPECIMENOrdering Facility: [facility] Address: [address] [place] [address] Performed By: #### H CG ####[facility] LABORATORYCLIA [id number] [address] [place] HIGH SENSITIVITY TROPONIN T (INITIAL)on 05-16-2023 Troponin T.cardiac High sensitivity method [Mass/Vol] <6 Normal <12 [facility] Comment on above: Order Comment: Carlos A villeda Type: BLOOD SPECIMENOrdering Facility: [facility] Address: [address] [place] [address] Result Comment: When assessing risk for acute coronary syndromes: In patients undergoing blood draw greater than or equal to 2 hours from symptom onset, with history of very low to moderate risk and non-ischemic ECG, an initial hs-Troponin T less than 12 ng/L AND a 1 hour delta hs-Troponin T less than 3 ng/L should be considered very low risk for 30 day MACE. Performed By: #### L [id number], 25912-1, 10272-9 ####[facility] LABORATORYCLIA [id number] [place] [id number] [place] HIGH SENSITIVITY TROPONIN T (SECOND)on 05-16-2023 Troponin T.cardiac High sensitivity method [Mass/Vol] <6 Normal <12 [facility] Comment on above: Order Comment: Carlos A villeda Type: BLOOD SPECIMENOrdering Facility: [facility] Address: [address] [place] [address] Result Comment: When assessing risk for acute coronary syndromes: In patients undergoing blood draw greater than or equal to 2 hours from symptom onset, with history of very low to moderate risk and non-ischemic ECG, an initial hs-Troponin T less than 12 ng/L AND a 1 hour delta hs-Troponin T less than 3 ng/L should be considered very low risk for 30 day MACE. Performed By: #### L [id number] ####ACCORD LABORATORYCLIA [id number] [place] [address] [place] Magnesium SerPl-mCncon 05-16 Magnesium [Mass/Vol] 2.0 mg/dL Normal 1.7-2.3 [facility] Comment on above: Order Comment: Speci men Type: BLOOD SPECIMENOrdering Facility: [facility] Address: [facility] [place] [address] Performed By: #### L [id number], 20948-5, 11403-7 ####ACCORD LABORATORYCLIA [id number] [place] [id number] [place] MRI LUMBAR SPINE WO IVCONon 03-02-2023 MRI LUMBAR SPINE WO IVCON * * *Final Report* * * DATE OF EXAM: Mar 02 2023 1:04PM MDM 0303 - MRI LUMBAR SPINE WO IVCON / PROCEDURE REASON: M48.062-Spinal stenosis of lumbar region with neurogenic claudication * * * * Physician Interpretation * * * * EXAMINATION: MRI LUMBAR SPINE WO IVCON CLINICAL HISTORY: Spinal stenosis of lumbar region with neurogenic claudication right L4-5 microdiscectomy 2021 TECHNIQUE: Routine lumbosacral spine MR protocol without gadolinium. MQ: [id number] COMPARISON: 03/16/2022 RESULT: Counting reference: Lumbosacral junction. For the purposes of this report, L4-5 is considered the level of the iliac crest and assume there are 5 lumbar-type vertebrae. Anatomic variant: None. Localizer images: No additional findings Alignment: There is straightening of the lordosis. Slight retrolisthesis at L4-5 and L5-S1. Bone marrow signal/fracture: No evidence of pathologic marrow infiltration. No acute fractures. Disc narrowing and desiccation with type I endplate degenerative change at L4-L5 with progression. Disc narrowing and desiccation at L5-S1 is similar. Conus: The conus is within normal limits of signal intensity and morphology. Paraspinal soft tissues: Disruption of soft tissue planes at the surgical level Lower thoracic spine: Visualized lower thoracic canal and foramina are patent. L1-L2: Canal and foramina are patent. L2-L3: Canal and foramina are patent L3-L4: Canal and foramina are patent L4-L5: Right laminectomy change. Disc bulge and small moderate right paracentral disc protrusion causes right lateral recess stenosis with impingement of the right L5 nerve root with improvement. There is mild canal stenosis with improvement. There is mild right/minimal left foraminal narrowing which is similar L5-S1: Disc bulge with central/right paracentral disc protrusion which abuts the S1 nerve roots and causes mild canal stenosis. Mild foraminal narrowing. Findings are similar Sacrum and iliac wings: The visualized sacrum and iliac wings are within normal limits. IMPRESSION: Right laminectomy change at L4-L5. Spondylosis and stenosis with improvement at L4-L5 and similar findings at L5-S1 as detailed. Additional findings as above. Anatomic Lumbar Variant: None. L4-5 is considered the level of the iliac crest and assume there are 5 lumbar-type vertebrae. Director Instrumentation: RAYSA Transcribe Date/Time: Mar 02 2023 2:18P Dictated by : ELLYN BERRY MD This examination was interpreted and the report reviewed and electronically signed by: ELLYN BERRY MD on Mar 02 2023 2:27PM EST [id number] N [facility] CNOVon 02-06-2023 CNOV Office Visit (NSFRVW ) HANNAH HENDRICKS ([id number]) 1990 F Date Time Provider Department 02/06/23 8:40 AM KONSTANTIN KIRKLAND NSFRVW During your visit today, we recorded the following information about you: Pulse Blood pressure Weight Height 101/minute 106/73 73.9 kg 1.651 m Konstantin Kirkland MD 02/08/2023 7:04 AM Signed SPINE SURGERY FOLLOW UP This is an in-person visit. SERVICE DATE: 02/05/2023 SURGERY DATE: 12/19/2021 AND 03/20/2022 R L4/5 microdiscectomy and redo microdiscectomy Hannah Hendricks is seen for 10 month post operative follow up. She has been experiencing pain on her left side from her lower back to the knee, including the groin and anterior thigh. It is aggravated by walking and standing. She has been having flare ups consistently. She reports that the most painful episode was in August 2022, which she describes as debilitating and disabling. She has been visiting with a chiropractor weekly since August 2022. This has been helpful. She was discontinued from physical therapy in December 2022 after 19 visits. 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 Aggravating Factors: Standing, Walking Alleviating Factors: Medications, rest, chiropractor ANTIPLATELET OR ANTICOAGULATION STATUS: No Patient Entered Questionnaires Spine Questions 05/27/2022 07/30/2022 02/03/2023 Pain Location: Lower back Lower back Lower back Pain Duration: - 6 months - 1 year 6 months - 1 year Pain over last 6 months: - Every day or nearly every day in the past 6 months Every day or nearly every day in the past 6 months Symptoms from neck/cervical spine: No No No Employment Status: Disabled due to back pain, permanently or temporarily - Working now Off work 1 month or more due to back/neck pain: Yes - - Applied for/receive disability/WC due to low back/neck pain Yes - - Involved in law suit/legal claim: - - No Spine Red Flags 10/10/2021 Any type of cancer: No Unexplained fever: No Bowel or bladder disfunction: No Unintentional weight loss: No Osteoporosis: No Low Back Pain Questionnaires 04/20/2022 STarT Risk Score 3 (Medium risk for prolonged disability) STarT Distress Score 2 STarT Total Score 4 PROMIS Score Percentiles Physical Health 11/28/2022 12/31/2022 02/03/2023 Physical Function Percentile 21* 21* 21* Sleep Percentile - - 54 Fatigue Percentile - - 58 Pain Interference Percentile - - 4 PROMIS SOCIAL ROLE SCORE 05/27/2022 07/30/2022 02/03/2023 Social Role Satisfaction Percentile 14 58 31 PROMIS Global Health Scale 05/27/2022 08/29/2022 11/28/2022 Physical Health Percentile 15 10 31 Mental Health Percentile 34 26* 43 Percentiles provide an indication of how the patient's score ranks in relation to the general population. Higher percentile rankings indicate better function/quality of life. 50th percentile is the average of the general population and indicates half of respondents had a worse score. Depression Screening: PHQ-9 05/27/2022 07/30/2022 02/03/2023 Score 2 3 2 PHQ-9 Self-harm Question 05/27/2022 07/30/2022 02/03/2023 Thoughts that you would be better off , or of hurting yourself in some way 0 0 0 PHQ-9 Self-Harm (Item 9) response options: 0 Not at all 1 Several days 2 More than half the days 3 Nearly every day PHQ-9 Levels: 0-4 No to mild depression 5-9 Mild depression 10-14 Moderate depression 15-19 Moderately severe depression 20-27 Severe depression PHYSICAL EXAM: BP 106/73 Pulse 101 Ht 165.1 cm (5' 5) Wt 73.9 kg (163 lb) LMP 03/14/2022 (Approximate) SpO2 100% BMI 27.12 kg/m? Oriented x3 PERRL FS Motor: UE D 5/5, B 5/5, T 5/5, G 5/5, HI 5/5 LE HF 5/5, KE 5/5, DF 5/5, PF 5/5, EHL 5/5 Incision C/D/I DATA REVIEW [facility] records independently reviewed Images independently reviewed with the patient ASSESSMENT/PLAN (M54.16) Radiculopathy, lumbar region (primary encounter diagnosis) (M48.062) Spinal stenosis of lumbar region with neurogenic claudication 1. Imaging: Lumbar MRI Without Contrast Postop recurring or worsening symptoms 2. Follow up: Following above The majority of the visit was spent counseling and/or coordinating care for the patient. The patient was counseled regarding lumbar radiculopathy. Total face to face time was 20 minutes. I agree with the Chief Complaint, ROS, and Past Histories independently gathered by the clinical client support analyst and the remaining scribed note accurately describes my personal service to the patient (more content not included)... [facility] 01-30-2023 [facility] Telephone (NIQ) HANNAH HENDRICKS ([id number]) 1990 F Date Time Provider Department 01/30/23 KONSTANTIN KIRKLAND During your visit today, we recorded the following information about you: Niviaveronique Moreno Britt 01/30/2023 9:18 AM Signed Patient called stating she saw Dr Kirkland in July and at that time he ordered PT. She is now discharged from PT and is still having pain on her left side of tailbone area. Her pain has not improved after Pt. She wants to know what the next step is. Should she have an MRI? OK to respond to patient on MyChart. Allergies As of Date: 01/30/2023 Noted Allergy Reaction PENICILLINS 10/31/2012 4 - Hives SHELLFISH 10/31/2012 7 - Swelling 12 - Shortness of Breath VANCOMYCIN 12/19/2021 9 - Itching Date Reviewed: 04/04/2022 Reviewed by: Radha Renee - Fully Assessed Reason for Visit: Patient Question [5849] Prescriptions as of 04/23/2023 - methocarbamol (ROBAXIN-750) 750 mg tablet Take 1 tablet by mouth three times daily as needed. - gabapentin (NEURONTIN) 300 mg capsule Take 1 capsule in the morning Take 1 capsule in the afternoon Take 2 capsules at bedtime - oxyCODONE-acetaminoph en (PERCOCET) 5-325 mg tablet Take 1 tablet by mouth every 8 hours as needed for pain (for pain.). - docusate sodium (COLACE) 100 mg capsule Take 1 capsule by mouth twice daily. - methylPREDNISolone (MEDROL) 16 mg tablet Take 16 mg by mouth once daily. - Acetaminophen 500 mg cap Take 1,000 mg by mouth every 6 hours as needed for pain. - POTASSIUM-99 ORAL Take by mouth as needed. - levonorgestrel (MIRENA) 20 mcg/24 hours (7 yrs) 52 mg IUD 1 Each by INTRAUTERINE route one time only. Placed September 2020 Problem List As Of Date 01/30/2023 Noted Resolved Electronic cigarette use [Z78.9] 12/06/2021 Chronic bilateral low back pain with right-side*04/20/2022 Encounter Status:Closed by BRITT ENNIS on 04/23/23 [facility] CNTHERAPYon 12-31-2022 CNTHERAPY OT/PT/Speech Visit (PTMDRG) HANNAH HENDRICKS ([id number]) 1990 F Date Time Provider Department 12/31/22 6:00 PM NEHEMIAS SUAREZ [facility] Date Time Provider Department Center 12/31/2022 6:00 PM [id number], SCOTT PTMDRG [facility] Reason for Visit: PT Discharge [752] Primary Visit Diagnosis:Chronic bilateral low back pain with right-sided sciatica [M54.41, G89.29] Allergies As of Date: 12/31/2022 Noted Allergy Reaction PENICILLINS 10/31/2012 4 - Hives SHELLFISH 10/31/2012 7 - Swelling 12 - Shortness of Breath VANCOMYCIN 12/19/2021 9 - Itching Date Reviewed: 04/04/2022 Reviewed by: Radha Renee - Fully Assessed Prescriptions as of 12/31/2022 - methocarbamol (ROBAXIN-750) 750 mg tablet Take 1 tablet by mouth three times daily as needed. - gabapentin (NEURONTIN) 300 mg capsule Take 1 capsule in the morning Take 1 capsule in the afternoon Take 2 capsules at bedtime - oxyCODONE-acetaminoph en (PERCOCET) 5-325 mg tablet Take 1 tablet by mouth every 8 hours as needed for pain (for pain.). - docusate sodium (COLACE) 100 mg capsule Take 1 capsule by mouth twice daily. - methylPREDNISolone (MEDROL) 16 mg tablet Take 16 mg by mouth once daily. - Acetaminophen 500 mg cap Take 1,000 mg by mouth every 6 hours as needed for pain. - POTASSIUM-99 ORAL Take by mouth as needed. - levonorgestrel (MIRENA) 20 mcg/24 hours (7 yrs) 52 mg IUD 1 Each by INTRAUTERINE route one time only. Placed September 2020 [facility] CNTHERAPYon 11-28-2022 CNTHERAPY OT/PT/Speech Visit (PTMDRG) HANNAH HENDRICKS ([id number]) 1990 F Date Time Provider Department 11/28/22 6:00 PM NEHEMIAS SUAREZ [facility] Date Time Provider Department Center 11/28/2022 6:00 PM [id number], SCOTT PTMDRG [facility] Reason for Visit: PT Progress Note [1386] Primary Visit Diagnosis:Chronic bilateral low back pain with right-sided sciatica [M54.41, G89.29] Allergies As of Date: 11/28/2022 Noted Allergy Reaction PENICILLINS 10/31/2012 4 - Hives SHELLFISH 10/31/2012 7 - Swelling 12 - Shortness of Breath VANCOMYCIN 12/19/2021 9 - Itching Date Reviewed: 04/04/2022 Reviewed by: Radha Renee - Fully Assessed Prescriptions as of 11/29/2022 - methocarbamol (ROBAXIN-750) 750 mg tablet Take 1 tablet by mouth three times daily as needed. - gabapentin (NEURONTIN) 300 mg capsule Take 1 capsule in the morning Take 1 capsule in the afternoon Take 2 capsules at bedtime - oxyCODONE-acetaminoph en (PERCOCET) 5-325 mg tablet Take 1 tablet by mouth every 8 hours as needed for pain (for pain.). - docusate sodium (COLACE) 100 mg capsule Take 1 capsule by mouth twice daily. - methylPREDNISolone (MEDROL) 16 mg tablet Take 16 mg by mouth once daily. - Acetaminophen 500 mg cap Take 1,000 mg by mouth every 6 hours as needed for pain. - POTASSIUM-99 ORAL Take by mouth as needed. - levonorgestrel (MIRENA) 20 mcg/24 hours (7 yrs) 52 mg IUD 1 Each by INTRAUTERINE route one time only. Placed September 2020 [facility] CNTHERAPYon 10-24-2022 CNTHERAPY OT/PT/Speech Visit (PTMDRG) HANNAH HENDRICKS ([id number]) 1990 F Date Time Provider Department 10/24/22 6:00 PM NEHEMIAS SUAREZ PTMDR[facility] Date Time Provider Department Center 10/24/2022 6:00 PM [id number], SCOTT PTMDRG [facility] Reason for Visit: PT Progress Note [1596] Primary Visit Diagnosis:Chronic bilateral low back pain with right-sided sciatica [M54.41, G89.29] Allergies As of Date: 10/24/2022 Noted Allergy Reaction PENICILLINS 10/31/2012 4 - Hives SHELLFISH 10/31/2012 7 - Swelling 12 - Shortness of Breath VANCOMYCIN 12/19/2021 9 - Itching Date Reviewed: 04/04/2022 Reviewed by: Radha Schaffer - Fully Assessed Prescriptions as of 10/24/2022 - methocarbamol (ROBAXIN-750) 750 mg tablet Take 1 tablet by mouth three times daily as needed. - gabapentin (NEURONTIN) 300 mg capsule Take 1 capsule in the morning Take 1 capsule in the afternoon Take 2 capsules at bedtime - oxyCODONE-acetaminoph en (PERCOCET) 5-325 mg tablet Take 1 tablet by mouth every 8 hours as needed for pain (for pain.). - docusate sodium (COLACE) 100 mg capsule Take 1 capsule by mouth twice daily. - methylPREDNISolone (MEDROL) 16 mg tablet Take 16 mg by mouth once daily. - Acetaminophen 500 mg cap Take 1,000 mg by mouth every 6 hours as needed for pain. - POTASSIUM-99 ORAL Take by mouth as needed. - levonorgestrel (MIRENA) 20 mcg/24 hours (7 yrs) 52 mg IUD 1 Each by INTRAUTERINE route one time only. Placed September 2020 [facility] CNTHERAPYon 09-12-2022 CNTHERAPY OT/PT/Speech Visit (PTMDRG) HANNAH HENDRICKS ([id number]) 1990 F Date Time Provider Department 09/12/22 5:15 PM NEHEMIAS SUAREZ [facility] Date Time Provider Department Reading 09/12/2022 5:15 PM [id number], SCOTT PTMG [facility] Reason for Visit: PT Progress Note [2776] Primary Visit Diagnosis:Chronic bilateral low back pain with right-sided sciatica [M54.41, G89.29] Allergies As of Date: 09/12/2022 Noted Allergy Reaction PENICILLINS 10/31/2012 4 - Hives SHELLFISH 10/31/2012 7 - Swelling 12 - Shortness of Breath VANCOMYCIN 12/19/2021 9 - Itching Date Reviewed: 04/04/2022 Reviewed by: Radha Schaffer - Fully Assessed Prescriptions as of 09/13/2022 - methocarbamol (ROBAXIN-750) 750 mg tablet Take 1 tablet by mouth three times daily as needed. - gabapentin (NEURONTIN) 300 mg capsule Take 1 capsule in the morning Take 1 capsule in the afternoon Take 2 capsules at bedtime - oxyCODONE-acetaminoph en (PERCOCET) 5-325 mg tablet Take 1 tablet by mouth every 8 hours as needed for pain (for pain.). - docusate sodium (COLACE) 100 mg capsule Take 1 capsule by mouth twice daily. - methylPREDNISolone (MEDROL) 16 mg tablet Take 16 mg by mouth once daily. - Acetaminophen 500 mg cap Take 1,000 mg by mouth every 6 hours as needed for pain. - POTASSIUM-99 ORAL Take by mouth as needed. - levonorgestrel (MIRENA) 20 mcg/24 hours (7 yrs) 52 mg IUD 1 Each by INTRAUTERINE route one time only. Placed September 2020 [facility] CNTHERAPYon 08-29-2022 CNTHERAPY OT/PT/Speech Visit (PTMDRG) HANNAH HENDRICKS ([id number]) 1990 F Date Time Provider Department 08/29/22 5:45 PM JULIANO URIAS PTMDRG Date Time Provider Department Center 08/29/2022 5:45 PM [id number], SUSAN PTMDRG [facility] Reason for Visit: Physical Therapy [503] Primary Visit Diagnosis:Chronic bilateral low back pain with right-sided sciatica [M54.41, G89.29] Allergies As of Date: 08/29/2022 Noted Allergy Reaction PENICILLINS 10/31/2012 4 - Hives SHELLFISH 10/31/2012 7 - Swelling 12 - Shortness of Breath VANCOMYCIN 12/19/2021 9 - Itching Date Reviewed: 04/04/2022 Reviewed by: Radha Schaffer - Fully Assessed Prescriptions as of 08/29/2022 - methocarbamol (ROBAXIN-750) 750 mg tablet Take 1 tablet by mouth three times daily as needed. - gabapentin (NEURONTIN) 300 mg capsule Take 1 capsule in the morning Take 1 capsule in the afternoon Take 2 capsules at bedtime - oxyCODONE-acetaminoph en (PERCOCET) 5-325 mg tablet Take 1 tablet by mouth every 8 hours as needed for pain (for pain.). - docusate sodium (COLACE) 100 mg capsule Take 1 capsule by mouth twice daily. - methylPREDNISolone (MEDROL) 16 mg tablet Take 16 mg by mouth once daily. - Acetaminophen 500 mg cap Take 1,000 mg by mouth every 6 hours as needed for pain. - POTASSIUM-99 ORAL Take by mouth as needed. - levonorgestrel (MIRENA) 20 mcg/24 hours (7 yrs) 52 mg IUD 1 Each by INTRAUTERINE route one time only. Placed September 2020 [facility] CNTHERAPYon 08-15-2022 CNTHERAPY OT/PT/Speech Visit (PTMDRG) HANNAH HENDRICKS ([id number]) 1990 F Date Time Provider Department 08/15/22 6:00 PM NEHEMIAS SUAREZ PTMDRG Date Time Provider Department Reading 08/15/2022 6:00 PM [id number], SCOTT PTMDRG [facility] Reason for Visit: PT Progress Note [1596] Primary Visit Diagnosis:Chronic bilateral low back pain with right-sided sciatica [M54.41, G89.29] Allergies As of Date: 08/15/2022 Noted Allergy Reaction PENICILLINS 10/31/2012 4 - Hives SHELLFISH 10/31/2012 7 - Swelling 12 - Shortness of Breath VANCOMYCIN 12/19/2021 9 - Itching Date Reviewed: 04/04/2022 Reviewed by: Radha Schaffer - Fully Assessed Prescriptions as of 08/15/2022 - methocarbamol (ROBAXIN-750) 750 mg tablet Take 1 tablet by mouth three times daily as needed. - gabapentin (NEURONTIN) 300 mg capsule Take 1 capsule in the morning Take 1 capsule in the afternoon Take 2 capsules at bedtime - oxyCODONE-acetaminoph en (PERCOCET) 5-325 mg tablet Take 1 tablet by mouth every 8 hours as needed for pain (for pain.). - docusate sodium (COLACE) 100 mg capsule Take 1 capsule by mouth twice daily. - methylPREDNISolone (MEDROL) 16 mg tablet Take 16 mg by mouth once daily. - Acetaminophen 500 mg cap Take 1,000 mg by mouth every 6 hours as needed for pain. - POTASSIUM-99 ORAL Take by mouth as needed. - levonorgestrel (MIRENA) 20 mcg/24 hours (7 yrs) 52 mg IUD 1 Each by INTRAUTERINE route one time only. Placed September 2020 [facility] CNTHERAPYon 07-16-2022 CNTHERAPY OT/PT/Speech Visit (PTMDRG) HANNAH HENDRICKS ([id number]) 1990 F Date Time Provider Department 07/16/22 12:30 PM NEHEMIAS SUAREZ [facility] Date Time Provider Department Reading 07/16/2022 12:30 PM [id number], SCOTT PTMDRG [facility] Reason for Visit: PT Progress Note [1596] Primary Visit Diagnosis:Chronic bilateral low back pain with right-sided sciatica [M54.41, G89.29] Allergies As of Date: 07/16/2022 Noted Allergy Reaction PENICILLINS 10/31/2012 4 - Hives SHELLFISH 10/31/2012 7 - Swelling 12 - Shortness of Breath VANCOMYCIN 12/19/2021 9 - Itching Date Reviewed: 04/04/2022 Reviewed by: Radha Schaffer - Fully Assessed Prescriptions as of 07/16/2022 - methocarbamol (ROBAXIN-750) 750 mg tablet Take 1 tablet by mouth three times daily as needed. - gabapentin (NEURONTIN) 300 mg capsule Take 1 capsule in the morning Take 1 capsule in the afternoon Take 2 capsules at bedtime - oxyCODONE-acetaminoph en (PERCOCET) 5-325 mg tablet Take 1 tablet by mouth every 8 hours as needed for pain (for pain.). - docusate sodium (COLACE) 100 mg capsule Take 1 capsule by mouth twice daily. - methylPREDNISolone (MEDROL) 16 mg tablet Take 16 mg by mouth once daily. - Acetaminophen 500 mg cap Take 1,000 mg by mouth every 6 hours as needed for pain. - POTASSIUM-99 ORAL Take by mouth as needed. - levonorgestrel (MIRENA) 20 mcg/24 hours (7 yrs) 52 mg IUD 1 Each by INTRAUTERINE route one time only. Placed September 2020 [facility] CNTHERAPYon 07-09-2022 CNTHERAPY OT/PT/Speech Visit (PTMDRG) HANNAH HENDRICKS ([id number]) 1990 F Date Time Provider Department 07/09/22 12:30 PM NEHEMIAS SUAREZ [facility] Date Time Provider Department Center 07/09/2022 12:30 PM [id number], SCOTT PTMG [facility] Reason for Visit: Physical Therapy [503] Primary Visit Diagnosis:Chronic bilateral low back pain with right-sided sciatica [M54.41, G89.29] Allergies As of Date: 07/09/2022 Noted Allergy Reaction PENICILLINS 10/31/2012 4 - Hives SHELLFISH 10/31/2012 7 - Swelling 12 - Shortness of Breath VANCOMYCIN 12/19/2021 9 - Itching Date Reviewed: 04/04/2022 Reviewed by: Radha Schaffer - Fully Assessed Prescriptions as of 07/09/2022 - methocarbamol (ROBAXIN-750) 750 mg tablet Take 1 tablet by mouth three times daily as needed. - gabapentin (NEURONTIN) 300 mg capsule Take 1 capsule in the morning Take 1 capsule in the afternoon Take 2 capsules at bedtime - oxyCODONE-acetaminoph en (PERCOCET) 5-325 mg tablet Take 1 tablet by mouth every 8 hours as needed for pain (for pain.). - docusate sodium (COLACE) 100 mg capsule Take 1 capsule by mouth twice daily. - methylPREDNISolone (MEDROL) 16 mg tablet Take 16 mg by mouth once daily. - Acetaminophen 500 mg cap Take 1,000 mg by mouth every 6 hours as needed for pain. - POTASSIUM-99 ORAL Take by mouth as needed. - levonorgestrel (MIRENA) 20 mcg/24 hours (7 yrs) 52 mg IUD 1 Each by INTRAUTERINE route one time only. Placed September 2020 [facility] CNTHERAPYon 07-02-2022 CNTHERAPY OT/PT/Speech Visit (PTMDRG) HANNAH HENDRICKS ([id number]) 1990 F Date Time Provider Department 07/02/22 1:45 PM JULIANO URIAS [facility] Date Time Provider Department Reading 07/02/2022 1:45 PM [id number], SUSAN PTMDRG [facility] Reason for Visit: Physical Therapy [503] Primary Visit Diagnosis:Chronic bilateral low back pain with right-sided sciatica [M54.41, G89.29] Allergies As of Date: 07/02/2022 Noted Allergy Reaction PENICILLINS 10/31/2012 4 - Hives SHELLFISH 10/31/2012 7 - Swelling 12 - Shortness of Breath VANCOMYCIN 12/19/2021 9 - Itching Date Reviewed: 04/04/2022 Reviewed by: Radha Schaffer - Fully Assessed Prescriptions as of 07/02/2022 - methocarbamol (ROBAXIN-750) 750 mg tablet Take 1 tablet by mouth three times daily as needed. - gabapentin (NEURONTIN) 300 mg capsule Take 1 capsule in the morning Take 1 capsule in the afternoon Take 2 capsules at bedtime - oxyCODONE-acetaminoph en (PERCOCET) 5-325 mg tablet Take 1 tablet by mouth every 8 hours as needed for pain (for pain.). - docusate sodium (COLACE) 100 mg capsule Take 1 capsule by mouth twice daily. - methylPREDNISolone (MEDROL) 16 mg tablet Take 16 mg by mouth once daily. - Acetaminophen 500 mg cap Take 1,000 mg by mouth every 6 hours as needed for pain. - POTASSIUM-99 ORAL Take by mouth as needed. - levonorgestrel (MIRENA) 20 mcg/24 hours (7 yrs) 52 mg IUD 1 Each by INTRAUTERINE route one time only. Placed September 2020 [facility] CNTHERAPYon 06-25-2022 CNTHERAPY OT/PT/Speech Visit (PTMDRG) HANNAH HENDRICKS ([id number]) 1990 F Date Time Provider Department 06/25/22 4:30 PM NEHEMIAS SUAREZ [facility] Date Time Provider Department Center 06/25/2022 4:30 PM [id number], SCOTT PTMDRG [facility] Reason for Visit: Physical Therapy [503] Primary Visit Diagnosis:Chronic bilateral low back pain with right-sided sciatica [M54.41, G89.29] Allergies As of Date: 06/25/2022 Noted Allergy Reaction PENICILLINS 10/31/2012 4 - Hives SHELLFISH 10/31/2012 7 - Swelling 12 - Shortness of Breath VANCOMYCIN 12/19/2021 9 - Itching Date Reviewed: 04/04/2022 Reviewed by: Radha Schaffer - Fully Assessed Prescriptions as of 06/25/2022 - methocarbamol (ROBAXIN-750) 750 mg tablet Take 1 tablet by mouth three times daily as needed. - gabapentin (NEURONTIN) 300 mg capsule Take 1 capsule in the morning Take 1 capsule in the afternoon Take 2 capsules at bedtime - oxyCODONE-acetaminoph en (PERCOCET) 5-325 mg tablet Take 1 tablet by mouth every 8 hours as needed for pain (for pain.). - docusate sodium (COLACE) 100 mg capsule Take 1 capsule by mouth twice daily. - methylPREDNISolone (MEDROL) 16 mg tablet Take 16 mg by mouth once daily. - Acetaminophen 500 mg cap Take 1,000 mg by mouth every 6 hours as needed for pain. - POTASSIUM-99 ORAL Take by mouth as needed. - levonorgestrel (MIRENA) 20 mcg/24 hours (7 yrs) 52 mg IUD 1 Each by INTRAUTERINE route one time only. Placed September 2020 [facility] CNTHERAPYon 06-18-2022 CNTHERAPY OT/PT/Speech Visit (PTMDRG) HANNAH HENDRICKS ([id number]) 1990 F Date Time Provider Department 06/18/22 12:30 PM NEHEMIAS SUAREZ PTMDRG Date Time Provider Department Reading 06/18/2022 12:30 PM [id number], SCOTT PTMDRG [facility] Reason for Visit: PT Progress Note [8046] Primary Visit Diagnosis:Chronic bilateral low back pain with right-sided sciatica [M54.41, G89.29] Allergies As of Date: 06/18/2022 Noted Allergy Reaction PENICILLINS 10/31/2012 4 - Hives SHELLFISH 10/31/2012 7 - Swelling 12 - Shortness of Breath VANCOMYCIN 12/19/2021 9 - Itching Date Reviewed: 04/04/2022 Reviewed by: Radha Schaffer - Fully Assessed Prescriptions as of 06/18/2022 - methocarbamol (ROBAXIN-750) 750 mg tablet Take 1 tablet by mouth three times daily as needed. - gabapentin (NEURONTIN) 300 mg capsule Take 1 capsule in the morning Take 1 capsule in the afternoon Take 2 capsules at bedtime - oxyCODONE-acetaminoph en (PERCOCET) 5-325 mg tablet Take 1 tablet by mouth every 8 hours as needed for pain (for pain.). - docusate sodium (COLACE) 100 mg capsule Take 1 capsule by mouth twice daily. - methylPREDNISolone (MEDROL) 16 mg tablet Take 16 mg by mouth once daily. - Acetaminophen 500 mg cap Take 1,000 mg by mouth every 6 hours as needed for pain. - POTASSIUM-99 ORAL Take by mouth as needed. - levonorgestrel (MIRENA) 20 mcg/24 hours (7 yrs) 52 mg IUD 1 Each by INTRAUTERINE route one time only. Placed September 2020 [facility] CNTHERAPYon 06-11-2022 CNTHERAPY OT/PT/Speech Visit (PTMDRG) HANNAH HENDRICKS ([id number]) 1990 F Date Time Provider Department 06/11/22 12:15 PM JULIANO URIASG Date Time Provider Department Reading 06/11/2022 12:15 PM [id number], SUSAN PTMG [facility] Reason for Visit: Physical Therapy [503] Primary Visit Diagnosis:Chronic bilateral low back pain with right-sided sciatica [M54.41, G89.29] Allergies As of Date: 06/11/2022 Noted Allergy Reaction PENICILLINS 10/31/2012 4 - Hives SHELLFISH 10/31/2012 7 - Swelling 12 - Shortness of Breath VANCOMYCIN 12/19/2021 9 - Itching Date Reviewed: 04/04/2022 Reviewed by: Radha Schaffer - Fully Assessed Prescriptions as of 06/11/2022 - methocarbamol (ROBAXIN-750) 750 mg tablet Take 1 tablet by mouth three times daily as needed. - gabapentin (NEURONTIN) 300 mg capsule Take 1 capsule in the morning Take 1 capsule in the afternoon Take 2 capsules at bedtime - oxyCODONE-acetaminoph en (PERCOCET) 5-325 mg tablet Take 1 tablet by mouth every 8 hours as needed for pain (for pain.). - docusate sodium (COLACE) 100 mg capsule Take 1 capsule by mouth twice daily. - methylPREDNISolone (MEDROL) 16 mg tablet Take 16 mg by mouth once daily. - Acetaminophen 500 mg cap Take 1,000 mg by mouth every 6 hours as needed for pain. - POTASSIUM-99 ORAL Take by mouth as needed. - levonorgestrel (MIRENA) 20 mcg/24 hours (7 yrs) 52 mg IUD 1 Each by INTRAUTERINE route one time only. Placed September 2020 [facility] CNTHERAPYon 06-04-2022 CNTHERAPY OT/PT/Speech Visit (PTMDRG) HANNAH HENDRICKS ([id number]) 1990 F Date Time Provider Department 06/04/22 12:15 PM JULIANO URIAS PTMDRG Date Time Provider Department Center 06/04/2022 12:15 PM [id number], SUSAN PTMDRG [facility] Reason for Visit: Physical Therapy [503] Primary Visit Diagnosis:Chronic bilateral low back pain with right-sided sciatica [M54.41, G89.29] Allergies As of Date: 06/04/2022 Noted Allergy Reaction PENICILLINS 10/31/2012 4 - Hives SHELLFISH 10/31/2012 7 - Swelling 12 - Shortness of Breath VANCOMYCIN 12/19/2021 9 - Itching Date Reviewed: 04/04/2022 Reviewed by: Radha Schaffer - Fully Assessed Prescriptions as of 06/04/2022 - methocarbamol (ROBAXIN-750) 750 mg tablet Take 1 tablet by mouth three times daily as needed. - gabapentin (NEURONTIN) 300 mg capsule Take 1 capsule in the morning Take 1 capsule in the afternoon Take 2 capsules at bedtime - oxyCODONE-acetaminoph en (PERCOCET) 5-325 mg tablet Take 1 tablet by mouth every 8 hours as needed for pain (for pain.). - docusate sodium (COLACE) 100 mg capsule Take 1 capsule by mouth twice daily. - methylPREDNISolone (MEDROL) 16 mg tablet Take 16 mg by mouth once daily. - Acetaminophen 500 mg cap Take 1,000 mg by mouth every 6 hours as needed for pain. - POTASSIUM-99 ORAL Take by mouth as needed. - levonorgestrel (MIRENA) 20 mcg/24 hours (7 yrs) 52 mg IUD 1 Each by INTRAUTERINE route one time only. Placed September 2020 [facility] CNTHERAPYon 05-30-2022 CNTHERAPY OT/PT/Speech Visit (PTMDRG) HANNAH HENDRICKS ([id number]) 1990 F Date Time Provider Department 05/30/22 12:30 PM NEHEMIAS SUAREZ PT[facility] Date Time Provider Department Center 05/30/2022 12:30 PM [id number], SCOTT PTMDRG [facility] Reason for Visit: Physical Therapy [503] Primary Visit Diagnosis:Chronic bilateral low back pain with right-sided sciatica [M54.41, G89.29] Allergies As of Date: 05/30/2022 Noted Allergy Reaction PENICILLINS 10/31/2012 4 - Hives SHELLFISH 10/31/2012 7 - Swelling 12 - Shortness of Breath VANCOMYCIN 12/19/2021 9 - Itching Date Reviewed: 04/04/2022 Reviewed by: Radha Thuma Mucurio - Fully Assessed Prescriptions as of 05/30/2022 - methocarbamol (ROBAXIN-750) 750 mg tablet Take 1 tablet by mouth three times daily as needed. - gabapentin (NEURONTIN) 300 mg capsule Take 1 capsule in the morning Take 1 capsule in the afternoon Take 2 capsules at bedtime - oxyCODONE-acetaminoph en (PERCOCET) 5-325 mg tablet Take 1 tablet by mouth every 8 hours as needed for pain (for pain.). - docusate sodium (COLACE) 100 mg capsule Take 1 capsule by mouth twice daily. - methylPREDNISolone (MEDROL) 16 mg tablet Take 16 mg by mouth once daily. - Acetaminophen 500 mg cap Take 1,000 mg by mouth every 6 hours as needed for pain. - POTASSIUM-99 ORAL Take by mouth as needed. - levonorgestrel (MIRENA) 20 mcg/24 hours (7 yrs) 52 mg IUD 1 Each by INTRAUTERINE route one time only. Placed September 2020 [facility] CNTHERAPYon 05-21-2022 CNTHERAPY OT/PT/Speech Visit (PTMDRG) HANNAH HENDRICKS ([id number]) 1990 F Date Time Provider Department 05/21/22 1:15 PM NEHEMIAS SUAREZ [facility] Date Time Provider Department Center 05/21/2022 1:15 PM [id number], SCOTT PTMG [facility] Reason for Visit: PT Progress Note [1596] Primary Visit Diagnosis:Chronic bilateral low back pain with right-sided sciatica [M54.41, G89.29] Allergies As of Date: 05/21/2022 Noted Allergy Reaction PENICILLINS 10/31/2012 4 - Hives SHELLFISH 10/31/2012 7 - Swelling 12 - Shortness of Breath VANCOMYCIN 12/19/2021 9 - Itching Date Reviewed: 04/04/2022 Reviewed by: Radha Schaffer - Fully Assessed Prescriptions as of 05/21/2022 - methocarbamol (ROBAXIN-750) 750 mg tablet Take 1 tablet by mouth three times daily as needed. - gabapentin (NEURONTIN) 300 mg capsule Take 1 capsule in the morning Take 1 capsule in the afternoon Take 2 capsules at bedtime - oxyCODONE-acetaminoph en (PERCOCET) 5-325 mg tablet Take 1 tablet by mouth every 8 hours as needed for pain (for pain.). - docusate sodium (COLACE) 100 mg capsule Take 1 capsule by mouth twice daily. - methylPREDNISolone (MEDROL) 16 mg tablet Take 16 mg by mouth once daily. - Acetaminophen 500 mg cap Take 1,000 mg by mouth every 6 hours as needed for pain. - POTASSIUM-99 ORAL Take by mouth as needed. - levonorgestrel (MIRENA) 20 mcg/24 hours (7 yrs) 52 mg IUD 1 Each by INTRAUTERINE route one time only. Placed September 2020 [facility] 04-04-2022 [facility] Office Visit (NSFRVW ) HANNAH HENDRICKS ([id number]) 1990 F Date Time Provider Department 04/04/22 2:00 PM KONSTANTIN KIRKLAND NSFRVW During your visit today, we recorded the following information about you: Temperature Pulse Blood pressure Weight 98.1 degrees 82/minute 124/71 77.6 kg Konstantin Kirkland MD 04/06/2022 6:40 AM Signed SPINE SURGERY FOLLOW UP This is an in-person visit. SERVICE DATE: 04/06/2022 SURGERY DATE: 03/20/2022 S/p R L4/5 redo microdiscectomy Hannah Hendricks is seen for 2 week post operative follow up. Since last time I saw the patient she reports improvement compared to preop symptoms. No recurrence of symptoms ANTIPLATELET OR ANTICOAGULATION STATUS: No Patient Entered Questionnaires Spine Questions 02/04/2022 03/05/2022 04/03/2022 Pain Location: Lower back Lower back Lower back Pain Duration: - - - Pain over last 6 months: - - - Symptoms from neck/cervical spine: No No No Employment Status: - Disabled due to back pain, permanently or temporarily - Off work 1 month or more due to back/neck pain: - Yes - Applied for/receive disability/WC due to low back/neck pain - Yes - Involved in law suit/legal claim: - - - Spine Red Flags 10/10/2021 Any type of cancer: No Unexplained fever: No Bowel or bladder disfunction: No Unintentional weight loss: No Osteoporosis: No PROMIS Score Percentiles Physical Health 02/04/2022 03/05/2022 04/03/2022 Physical Function Percentile 2 4 2 Sleep Percentile 21* 10 18* Fatigue Percentile 8 24* 12 Pain Interference Percentile 1 27* 10 PROMIS SOCIAL ROLE SCORE 02/04/2022 03/05/2022 04/03/2022 Social Role Satisfaction Percentile 5 21* 8 PROMIS Global Health Scale 09/17/2021 01/07/2022 03/05/2022 Physical Health Percentile 31 7 15 Mental Health Percentile 63 43 34 Percentiles provide an indication of how the patient's score ranks in relation to the general population. Higher percentile rankings indicate better function/quality of life. 50th percentile is the average of the general population and indicates half of respondents had a worse score. Depression Screening: PHQ-9 02/04/2022 03/05/2022 04/03/2022 Score 5 5 7 PHQ-9 Self-harm Question 02/04/2022 03/05/2022 04/03/2022 Thoughts that you would be better off , or of hurting yourself in some way 0 0 0 PHQ-9 Self-Harm (Item 9) response options: 0 Not at all 1 Several days 2 More than half the days 3 Nearly every day PHQ-9 Levels: 0-4 No to mild depression 5-9 Mild depression 10-14 Moderate depression 15-19 Moderately severe depression 20-27 Severe depression PHYSICAL EXAM: BP 124/71 Pulse 82 Temp 36.7 ?C (98.1 ?F) Wt 77.6 kg (171 lb) LMP 03/14/2022 (Approximate) SpO2 100% BMI 28.46 kg/m? Oriented x3 PERRL FS Motor: UE D 5/5, B 5/5, T 5/5, G 5/5, HI 5/5 LE HF 5/5, KE 5/5, DF 5/5, PF 5/5, EHL 5/5 Incision C/D/I DATA REVIEW No additional images reviewed today ASSESSMENT/PLAN (M54.16) Radiculopathy, lumbar region (primary encounter diagnosis) Start physical therapy Follow up: 4 weeks SIGNATURE: Konstantin Kirkland MD PATIENT NAME: Hannah Hendricks DATE: April 06, 2022 TIME: 6:35 AM PAGER: Allergies As of Date: 04/04/2022 Noted Allergy Reaction PENICILLINS 10/31/2012 4 - Hives SHELLFISH 10/31/2012 7 - Swelling 12 - Shortness of Breath VANCOMYCIN 12/19/2021 9 - Itching Date Reviewed: 04/04/2022 Reviewed by: Radha Schaffer - Fully Assessed Reason for Visit: Post Op [174] Cmt: Sore and stiffness Primary Visit Diagnosis:Radiculopat hy, lumbar region [M54.16] Order(s):CONSULT TO PHYSICAL THERAPY [9032] Order #: [id number]: 1 FUTURE Prescriptions as of 04/06/2022 - gabapentin (NEURONTIN) 300 mg capsule Take 1 capsule in the morning Take 1 capsule in the afternoon Take 2 capsules at bedtime - oxyCODONE-acetaminoph en (PERCOCET) 5-325 mg tablet Take 1 tablet by mouth every 8 hours as needed for pain (for pain.). - methocarbamol (ROBAXIN-750) 750 mg tablet Take 1 tablet by mouth three times daily as needed. - docusate sodium (COLACE) 100 mg capsule Take 1 capsule by mouth twice daily. - methylPREDNISolone (MEDROL) 16 mg tablet Take 16 mg by mouth once daily. - methocarbamol (ROBAXIN-750) 750 mg tablet Take 1 tablet by mouth three times daily as needed. - Acetaminophen 500 mg cap Take 1,000 mg by mouth every 6 hours as needed for pain. - POTASSIUM-99 ORAL Take by mouth as needed. - levonorgestrel (MIRENA) 20 mcg/24 hours (7 yrs) 52 mg IUD 1 Each by INTRAUTERINE route one time only. Placed September 2020 Problem List As Of Date 04/04/2022 Noted Resolved Electronic cigarette use [Z78.9] 12/06/2021 Disposition: Return in about 3 weeks (around 04/25/2022). Follow-up and Disposition History for Encounter Date Provider Department Center 04/04/2022 [id number], GHAI (more content not included)... Normal [facility] ANES POSTPROC EVALon 022 ANES POSTPROC EVAL HNO ID: [id number] Author: Lisette Tarango MD Service: Anesthesiology Author Type: Anesthesiologist Type: Anesthesia Postprocedure Evaluation Filed: 03/20/2022 2:24 PM Note Text: POST ANESTHESIA EVALUATION NOTE : 1990 Procedure Summary Date: 03/20/22 Room / Location: OR04 / OR Anesthesia Start: 1207 Anesthesia Stop: 1346 Procedure: LAMINECTOMY DISCECTOMY LUMBAR LEVEL 1 (Right: Spine Lumbar) Diagnosis: Spinal stenosis of lumbar region with neurogenic claudication (Spinal stenosis of lumbar region with neurogenic claudication [M48.062]) Surgeons: Konstantin Kirkland MD Responsible Provider: Lisette Tarango MD Anesthesia Type: general ASA Status: 1 Anesthesia Type: general Airway Type: ETT Last Vitals Vitals Value Taken Time BP 114/72 03/20/22 1415 Temp 36.6 ?C (97.9 ?F) 03/20/22 1342 Pulse 65 03/20/22 1424 Resp 16 03/20/22 1415 SpO2 94 % 03/20/22 1424 Vitals shown include unvalidated device data. Post Anesthesia Patient Status Patient Evaluation: PACU. PACU/ICU Patient Condition: stable. Anticipated Disposition: phase 2 then home. Neurological Status: aware and responsive. Pulmonary Status: breathing comfortably on room air Airway Control: returned to baseline unsupported. Cardiovascular Status: stable. Pain Management: clinically adequate Postoperative Hydration: acceptable. Intraoperative Events: no significant anesthesia events Post Operative Nausea/Vomiting Status: no significant post operative nausea or vomiting Recommendation: continue current plan of care. Anesthesia Observations No Documentation SIGNATURE: Lisette Tarango MD PATIENT NAME: Hannah Hendricks DATE: March 20, 2022 TIME: 2:24 PM CSN: [id number] [facility] ANES PRE-OPon 03-20-2022 ANES PRE-OP HNO ID: [id number] Author: Kelechi Chavez MD Service: Anesthesiology Author Type: Anesthesiologist Type: Anesthesia Preprocedure Evaluation Filed: 03/20/2022 11:36 AM Note Text: ANESTHESIOLOGY DAY OF SURGERY NOTE : 1990 Procedure Information Date/Time: 03/20/22 1225 Procedure: LAMINECTOMY DISCECTOMY LUMBAR LEVEL 1 (Right: Spine Lumbar) - Redo right L4-5 microdiscectomy Location: OR04 / [facility] Surgeons: Konstantin Kirkland MD Estimated body mass index is 28.46 kg/m? as calculated from the following: Height as of 03/19/22: 165.1 cm (5' 5). Weight as of 03/19/22: 77.6 kg (171 lb). Most recent hematocrit and potassium results: Hematocrit 41.7 03/19/2022 Potassium 4.1 03/19/2022 Relevant Problems No relevant active problems I - PHYSICAL EVALUATION AIRWAY Patient intubated: No. Tracheostomy tube not present Mallampati: I. TM distance: >3 FB. Neck ROM: full ROM without neurological symptoms. Mouth opening: adequate. Short neck: no. Thick neck: no Garcia present: no DENTAL Dental findings: teeth intact. Additional exam findings: yes. CARDIOVASCULAR Normal cardiovascular observations. PULMONARY Normal pulmonary observations. Breath sounds clear to auscultation. II - ANESTHESIA PLAN ASA Score: 1 Anesthetic Plan: general Airway type: ETT The patient is not a current smoker. NPO Status: adequate Beta Gio Monitoring Plan Monitoring plan: standard ASA. Post Procedure Analgesic Plan Postoperative analgesic plan: multimodal analgesia. Informed Consent Anesthetic risks, benefits, alternatives, personnel and consent discussed: yes. Patient / Responsible Libertarian agrees to proceed: yes Patient / Surrogate agrees to blood products: Yes DNR status not reviewed with patient and/or family prior to surgery. Significant changes in the patient condition since the History and Physical, not otherwise documented in primary service progress note: no. Potential Anesthesia issues that may suggest increased risk of complications or contraindication to planned procedure: none. Vitals Value Taken Time BP 120/72 03/20/22 1054 Pulse 79 03/20/22 1054 Resp 16 03/20/22 1054 Temp 36.8 ?C (98.2 ?F) 03/20/22 1054 SpO2 98 % 03/20/22 1054 Facility-Administered Medications as of 03/20/2022 Medication Dose Route Frequency - [COMPLETED] acetaminophen 1,000 mg tab(s) (TYLENOL) 1,000 mg ORAL Pre-Op Once - [COMPLETED] promethazine 12.5 mg tab(s) (PHENERGAN) 12.5 mg ORAL Pre-Op Once - lactated ringers iv infusion 75 mL/hr INTRAVENOUS CONTINUOUS - clindamycin iv piggyback 900 mg in D5W 50 mL (CLEOCIN) 900 mg INTRAVENOUS ONCE Outpatient Medications as of 03/20/2022 Medication Sig - methocarbamol (ROBAXIN-750) 750 mg tablet Take 1 tablet by mouth three times daily as needed. - gabapentin (NEURONTIN) 300 mg capsule Take 1 capsule in the morning Take 1 capsule in the afternoon Take 2 capsules at bedtime - Acetaminophen 500 mg cap Take 1,000 mg by mouth every 6 hours as needed for pain. - levonorgestrel (MIRENA) 20 mcg/24 hours (7 yrs) 52 mg IUD 1 Each by INTRAUTERINE route one time only. Placed September 2020 - [] methylPREDNISolone (MEDROL, KAM,) 4 mg Dose-Pack As instructed per package - oxyCODONE-acetaminoph en (PERCOCET) 5-325 mg tablet Take 1 tablet by mouth every 4 hours as needed for pain (for pain.). (Patient not taking: Reported on 03/05/2022) - POTASSIUM-99 ORAL Take by mouth as needed. (Patient not taking: Reported on 03/05/2022) I have interviewed and examined the patient. I have reviewed the medical record and/or the pre-anesthesia evaluation, pertinent labs, and test results. This contains updated information obtained within 48 hours of Surgery/Procedure. SIGNATURE: Kelechi Chavez MD PATIENT NAME: Hannah Hendricks DATE: March 20, 2022 TIME: 11:36 AM CSN: [id number] [facility] BRIEF OP NOTon 03-20-2022 BRIEF OP NOT HNO ID: [id number] Author: Konstantin Kirkland MD Service: Neurosurgery Author Type: Physician Type: Brief Op Note Filed: 03/20/2022 1:20 PM Note Text: BRIEF OPERATIVE / PROCEDURE NOTE LOG ID: [id number] SURGERY/PROCEDURE DATE: 03/20/2022 INCISION/PROCEDURE START TIME: 12:29 PM INCISION CLOSE/PROCEDURE END TIME: 1:14 PM SURGEON(S)/PROCEDURAL IST(S) AND CIGARETTE EXAMINER(S): Surgeon(s) and Role: * Konstantin Kirkland MD - Primary * Marly Alegria MD - Resident - Assisting No Additional Staff SURGERY/PROCEDURE(S): R L4/5 microdiscectomy ANESTHESIA: General FINDINGS: Appropriate decompression ESTIMATED BLOOD LOSS: 10 mls SPECIMENS: None COMPLICATIONS: None PRE-OP/PRE-PROCEDURE DIAGNOSIS: R L4/5 recurrent herniated disc POST-OP/POST-PROCEDUR E DIAGNOSIS: R L4/5 recurrent herniated disc SIGNATURE: Konstantin Kirkland MD PATIENT NAME: Hannah Hendricks DATE: March 20, 2022 TIME: 1:06 PM [facility] HCG Preg Ur Qlon 03-20-2022 HCG ( test) Ql (U) Negative Normal Negative [facility] Comment on above: Order Comment: Speci men Type: URINE SPECIMENOrdering Facility: [facility] Address: [address] [place] [phone] Result Comment: This test is intended to aid in the early detection of . Very dilute urine samples, as indicated by a low specific gravity, may not contain insurance account representative levels of hCG. This test detects intact hCG only. This test does not reliably detect hCG degradation products, including free-beta subunit and beta-core fragment. Therefore, this test may show reduced reactivity in urine after 8 weeks gestation. A number of conditions other than , including trophoblastic disease and certain non-trophoblastic neoplasms cause elevated levels of hCG. As with any assay employing mouse antibodies, the possibility exists for interference by human anti-mouse antibodies (HAMA) in the specimen. The test provides a presumptive diagnosis for . Performed By: #### 2 106-3 ####[facility] LABORATORYCLIA [id number] [address] NURSING PROGon 03-20-2022 NURSING PROG HNO ID: [id number] Author: Ryanne Tracy RN Service: ? Author Type: Registered Nurse Type: Nursing Progress Note Filed: 03/20/2022 1:42 PM Note Text: Discharge Status: Patient is Awakening, and is no airway issues. Skin condition was WNL. Transported to recovery room via cart with siderails up. Accompanied by supervisor data processing and surgeon. [facility] NURSING PROG HNO ID: [id number] Author: Ryanne Tracy RN Service: ? Author Type: Registered Nurse Type: Nursing Progress Note Filed: 03/20/2022 12:10 PM Note Text: Patient transported to the OR via cart, accompanied by Dr. Kirkland/ Dr. Chavez. Level of consciousness: Alert and Oriented x 3 Emotional Status:Calm Sensory Impairments: No Language Barrier: No Mobility Impairments: No Addressed any patient concerns regarding consents, OR environment, and anesthetics. Body temperature maintained by maintaining OR room temperature between 68-72 degrees F, providing patient with warm bath blankets, limiting areas of exposure, and providing warm irrigation fluid. [facility] OPERATIVE NOon 03-20-2022 OPERATIVE NO HNO ID: [id number] Author: Konstantin Kirkland MD Service: Neurosurgery Author Type: Physician Type: Operative Report Filed: 03/20/2022 1:20 PM Note Text: OPERATIVE/PROCEDURE REPORT LOG ID: [id number] SURGERY/PROCEDURE DATE: 03/20/2022 INCISION/PROCEDURE START TIME: 12:29 PM INCISION CLOSE/PROCEDURE END TIME: 1:14 PM SURGEON(S)/PROCEDURAL IST(S) AND CIGARETTE EXAMINER(S): Surgeon(s) and Role: * Konstantin Kirkland MD - Primary * Marly Alegria MD - Resident - Assisting No Additional Staff SURGERY/PROCEDURE(S): R L4/5 redo microdiscectomy ANESTHESIA: General INDICATION: 32 yo F who underwent R L4/5 microdiscectomy 3 months ago and presented with symptoms recurrence. MRI lumbar spine showed R L4/5 herniated disc. Decision was made fore redo R L4/5 microdiscectomy SURGERY/PROCEDURE DETAILS: Patient was brought to the operating room. A huddle was performed with anesthesia team and nursing staff and surgical team all agreed to proceed. Patient was positioned prone on the Juliano table. IV antibiotics were given. The area was prepped and draped in usual fashion. A #15 blade scalpel was used to make an incision approximately 3 cm in length in the midline lumbar region. Monopolar cautery and blunt dissection were used to dissect down to the fascial plain and achieved hemostasis. Fascia was cleared and then incised down to the spinous process of L4. Using bony landmarks, the soft tissues and muscles were reflected laterally to the right side. Once adequate visualization of the L4 was achieved, a self-retaining retractor was inserted. An instrument was inserted into the wound to identify the L4 level utilizing cross-table intra-operative x-ray. Prior laminotomy defect was identified. The scar was dissected. Once the lamina had been removed, a curette was used to remove the ligamentum flavum and expose the dura. Once the dura was visualized, a Kerrison rongeur was then used to remove the remainder of the ligamentum flavum and soft tissue. Adequate hemostasis was achieved with bipolar cautery. The nerve root was retracted medially with a nerve root retractor. The pituitary grabber was used along with the blunt tip nerve hook to free a disk fragment impinging on the nerve root. The pituitary grabber removed the disk fragment successfully. Additional disk fragments were identified and removed with the pituitary grabber. The nerve was well decompressed. Incision was closed in 3 layers. 1 Vicryl for fascia, 2-0 Vicryl for subcutaneous layer, austin for skin. Dressing was applied. Patient was gently emerged from anesthesia and was transferred to PACU in stable condition. PRE-OP/PRE-PROCEDURE DIAGNOSIS: R L4/5 recurrent herniated disc POST-OP/POST-PROCEDUR E DIAGNOSIS: R L4/5 recurrent herniated disc ESTIMATED BLOOD LOSS: 10 mls SPECIMENS: None IMPLANTABLE DEVICES: NONE DRAINS: None COMPLICATIONS: None PARTICIPATION IN SURGERY/PROCEDURE: Konstantin Kirkland and Marly Alegria performed the opening, decompression and closure together SIGNATURE: Konstantin Kirkland MD PATIENT NAME: Hannah Hendricks DATE: March 20, 2022 TIME: 1:12 PM [facility] XR VERIFY LEVEL [id number] 03-20-2022 XR VERIFY LEVEL L-SPINE-NB * * *Final Report* * * DATE OF EXAM: Mar 20 2022 12:41PM MISAEL [id number] - XR VERIFY LEVEL L-SPINE-NB / PROCEDURE REASON: Spinal stenosis of lumbar region with neurogenic claudication * * * * Physician Interpretation * * * * TECHNIQUE: Single lateral image of the lumbar spine COUNTING REFERENCE: Lumbosacral junction. For the purposes of this report L4-5 is considered the level of the iliac crest. There are 5 lumbar type vertebral bodies. RESULT: A single lateral image is obtained intraoperatively for surgical planning. A localizing surgical instrument is noted, L4 lamina. Image annotated with vertebral body levels and confirmed with the responsible surgeon at the time of interpretation. IMPRESSION: OPERATIVE ASSESSMENT COMMUNICATION: Localization level(s) confirmed with: Dr. Kirkland on 03/20/2022 at 1315 time, via phone and Skype during the surgical procedure. [facility] Transcribe Date/Time: Mar 20 2022 1:14P Dictated by : SKY SCHWARTZ MD This examination was interpreted and the report reviewed and electronically signed by: SKY SCHWARTZ MD on Mar 20 2022 1:16PM EST [id number] [facility] Basic metabolic 2000 panelon 03-19-2022 Anion gap [Moles/Vol] 5 mmol/L Low 9-18 [facility] Comment on above: Order Comment: Speci men Type: BLOOD SPECIMENOrdering Facility: [facility] Address: [address] [place] [phone] Performed By: #### 2 4321-2 ####[facility] LABORATORYCLIA [id number] [address] [place], [place] [id number] [place] Calcium [Mass/Vol] 9.3 mg/dL Normal 8.5-10.2 [facility] Comment on above: Order Comment: Speci men Type: BLOOD SPECIMENOrdering Facility: [facility] Address: [address] [place] [address] Performed By: #### 2 4321-2 ####[facility] LABORATORYCLIA [id number] [address] [place], [place] [address] [place] Chloride [Moles/Vol] 103 mmol/L Normal 97-[address] [facility] Comment on above: Order Comment: Speci men Type: BLOOD SPECIMENOrdering Facility: [facility] Address: [address] [place] [address] Performed By: #### 2 4321-2 ####[facility] LABORATORYCLIA [id number] [address] [place] [address] [place] CO2 [Moles/Vol] 29 mmol/L Normal 22-[address] [facility] Comment on above: Order Comment: Speci men Type: BLOOD SPECIMENOrdering Facility: [facility] Address: [address] [place] [address] Performed By: #### 2 4321-2 ####[facility] LABORATORYCLIA [id number] [address] [place], [place] [address] [place] Creatinine [Mass/Vol] 0.68 mg/dL Normal 0.58-0.96 [facility] Comment on above: Order Comment: Speci men Type: BLOOD SPECIMENOrdering Facility: [facility] Address: [address] [place] [address] Performed By: #### 2 4321-2 ####[facility] LABORATORYCLIA [id number] [address] [place], [place] [address] [place] ESTIMATED GLOMERULAR FILTRATION RATE 120 mL/min/1.73m??? Normal >=[address] [facility] Comment on above: Order Comment: Speci men Type: BLOOD SPECIMENOrdering Facility: [facility] Address: [address] [place] [address] Result Comment: Vickie mated Glomerular Filtration Rate (eGFR) is calculated using the 2020 CKD-EPI creatinine equation. This equation utilizes serum creatinine, sex, and age as parameters. The creatinine assay has traceable calibration to isotope dilution-mass spectrometry. Refer to KDIGO guidelines for clinical interpretation. In patients with unstable renal function, e.g. those with acute kidney injury, the eGFR may not accurately reflect actual GFR. Performed By: #### 2 4321-2 ####[facility] LABORATORYCLIA [id number] [place] [address] [place] Glucose [Mass/Vol] 90 mg/dL Normal 74-99 [facility] Comment on above: Order Comment: Carlos A villeda Type: BLOOD SPECIMENOrdering Facility: [facility] Address: [address] [place] [address] Result Comment: The [place] [employer] (ADA) provides guidance for cutoff values for fasting glucose and random glucose. The ADA defines fasting as no caloric intake for at least 8 hours. Fasting plasma glucose results between 100 to 125 mg/dL indicate increased risk for diabetes (prediabetes). Fasting plasma glucose results greater than or equal to 126 mg/dL meet the criteria for diagnosis of diabetes. In the absence of unequivocal hyperglycemia, results should be confirmed by repeat testing. In a patient with classic symptoms of hyperglycemia or hyperglycemic crisis, random plasma glucose results greater than or equal to 200 mg/dL meet the criteria for diagnosis of diabetes. Reference: Standards of Medical Care in Diabetes 2016, [place] [employer]. Diabetes Care. 2016.39(Suppl 1). Performed By: #### 2 4321-2 ####[facility] LABORATORYCLIA [id number] [place] [id number] [place] Potassium [Moles/Vol] 4.1 mmol/L Normal 3.7-5.1 [facility] Comment on above: Order Comment: Carlos A villeda Type: BLOOD SPECIMENOrdering Facility: [facility] Address: [address] [place] [address] Performed By: #### 2 4321-2 ####[facility] LABORATORYCLIA [id number] [address] [place] [facility] Sodium [Moles/Vol] 137 mmol/L Normal 136-144 [facility] Comment on above: Order Comment: Speci men Type: BLOOD SPECIMENOrdering Facility: [facility] Address: [address] [place] [address] Performed By: #### 2 4321-2 ####[facility] LABORATORYCLIA [id number] [address] Urea nitrogen [Mass/Vol] 17 mg/dL Normal 7-[address] [facility] Comment on above: Order Comment: Speci men Type: BLOOD SPECIMENOrdering Facility: [facility] Address: [address] [place] [address] Performed By: #### 2 4321-2 ####[facility] LABORATORYCLIA [id number] [address] [place] [facility] Anion gap [Moles/Vol] 5 mmol/L Low 9 - 18 mmol/L [facility] Calcium [Mass/Vol] 9.3 mg/dL 8.5 - 10. 2 mg/dL [facility] Chloride [Moles/Vol] 103 mmol/L 97 - 10 5 mmol/L [facility] CO2 [Moles/Vol] 29 mmol/L 22 - 30 mmol/L [facility] Creatinine [Mass/Vol] 0.68 mg/dL 0.58 - 0.96 mg/dL [facility] Estimated Glomerular Filtration Rate 120 mL/min/1.73m >=60 mL/min/1.73m [facility] Glucose [Mass/Vol] 90 mg/dL 74 - 99 mg/dL [facility] Potassium [Moles/Vol] 4.1 mmol/L 3.7 - 5.1 mmol/L [facility] Sodium [Moles/Vol] 137 mmol/L 136 - 144 mmol/L [facility] Urea nitrogen [Mass/Vol] 17 mg/dL 7 - 21 mg/d L [facility] CBC W Auto Differential pane l (Bld)on 03-19-2022 Basophils (Bld) [#/Vol] 0.04 10*3/uL Normal <0.[address] [facility] Comment on above: Order Comment: Speci men Type: BLOOD SPECIMENOrdering Facility: [facility] Address: [address] [place] [address] Performed By: #### 5 7021-8 ####[facility] LABORATORYCLIA [id number] [address] [place], [place] [address] [place] Basophils/100 WBC (Bld) 0.6 % Normal [facility] Comment on above: Order Comment: Speci men Type: BLOOD SPECIMENOrdering Facility: [facility] Address: [address] [place] [address] Performed By: #### 5 7021-8 ####[facility] LABORATORYCLIA [id number] [address] [place] [address] [place] Differential cell count method Nom (Bld) Auto Normal [facility] Comment on above: Order Comment: Speci men Type: BLOOD SPECIMENOrdering Facility: [facility] Address: [address] [place] [address] Performed By: #### 5 7021-8 ####[facility] LABORATORYCLIA [id number] [address] [place], [place] [address] [place] Eosinophils (Bld) [#/Vol] 0.73 10*3/uL High <0.[address] [facility] Comment on above: Order Comment: Speci men Type: BLOOD SPECIMENOrdering Facility: [facility] Address: [address] [address] Performed By: #### 5 7021-8 ####[facility] LABORATORYCLIA [id number] [address] [place], [place] [address] [place] Eosinophils/100 WBC (Bld) 10.0 % Normal [facility] Comment on above: Order Comment: Speci men Type: BLOOD SPECIMENOrdering Facility: [facility] Address: [address] [place] [address] Performed By: #### 5 7021-8 ####[facility] LABORATORYCLIA [id number] [address] [place], [place] [address] [place] Erythrocyte distribution width (RBC) [Ratio] 11.8 % Normal 11.5-15.[address] [facility] Comment on above: Order Comment: Speci men Type: BLOOD SPECIMENOrdering Facility: [facility] Address: [address] [place] [address] Performed By: #### 5 7021-8 ####[facility] LABORATORYCLIA [id number] [address] [place], [place] [address] [place] Hematocrit (Bld) [Volume fraction] 41.7 % Normal 36.0-46.[address] [facility] Comment on above: Order Comment: Speci men Type: BLOOD SPECIMENOrdering Facility: [facility] Address: [address] [place] [address] Performed By: #### 5 7021-8 ####[facility] LABORATORYCLIA [id number] [address] [place] [address] [place] Hemoglobin (Bld) [Mass/Vol] 13.5 g/dL Normal 11.5-15.[address] [facility] Comment on above: Order Comment: Speci men Type: BLOOD SPECIMENOrdering Facility: [facility] Address: [address] [place] [address] Performed By: #### 5 7021-8 ####[facility] LABORATORYCLIA [id number] [place] [address] [place] Immature granulocytes (Bld) [#/Vol] 10*3/uL Normal <0.[address] [facility] Comment on above: Order Comment: Speci men Type: BLOOD SPECIMENOrdering Facility: [facility] Address: [address] [place] [address] Performed By: #### 5 7021-8 ####[facility] LABORATORYCLIA [id number] [place] [address] [place] Immature granulocytes/100 WBC (Bld) 0.1 % Normal [facility] Comment on above: Order Comment: Speci men Type: BLOOD SPECIMENOrdering Facility: [facility] Address: [address] [place] [address] Performed By: #### 5 7021-8 ####[facility] LABORATORYCLIA [id number] [place] [address] [place] Lymphocytes (Bld) [#/Vol] 2.89 10*3/uL Normal 1.00-4.[address] [facility] Comment on above: Order Comment: Speci men Type: BLOOD SPECIMENOrdering Facility: [facility] Address: [address] [place] [address] Performed By: #### 5 7021-8 ####[facility] LABORATORYCLIA [id number] [address] STATES [facility] Lymphocytes/100 WBC (Bld) 39.8 % Normal [facility] Comment on above: Order Comment: Speci men Type: BLOOD SPECIMENOrdering Facility: [facility] Address: [address] [place] [address] Performed By: #### 5 7021-8 ####[facility] LABORATORYCLIA [id number] [address] [place] MCH (RBC) [Entitic mass] 32.1 pg Normal 26.0-34.[address] [facility] Comment on above: Order Comment: Speci men Type: BLOOD SPECIMENOrdering Facility: [facility] Address: [address] [place] [address] Performed By: #### 5 7021-8 ####[facility] LABORATORYCLIA [id number] [address] [place] MCHC (RBC) [Mass/Vol] 32.4 g/dL Normal 30.5-36.0 [facility] Comment on above: Order Comment: Speci men Type: BLOOD SPECIMENOrdering Facility: [facility] Address: [address] Performed By: #### 5 7021-8 ####[facility] LABORATORYCLIA [id number] [place] [address] [place] MCV (RBC) [Entitic vol] 99.3 fL Normal 80.0-100.0 L [facility] Comment on above: Order Comment: Speci men Type: BLOOD SPECIMENOrdering Facility: [facility] Address: [address] Performed By: #### 5 7021-8 ####[facility] LABORATORYCLIA [id number] [address] [place] [address] [place] Monocytes (Bld) [#/Vol] 0.64 10*3/uL Normal <0.[address] [facility] Comment on above: Order Comment: Speci men Type: BLOOD SPECIMENOrdering Facility: [facility] Address: [address] Performed By: #### 5 7021-8 ####[facility] LABORATORYCLIA [id number] [place] [address] [place] Monocytes/100 WBC (Bld) 8.8 % Normal [facility] Comment on above: Order Comment: Speci men Type: BLOOD SPECIMENOrdering Facility: [facility] Address: [address] Performed By: #### 5 7021-8 ####[facility] LABORATORYCLIA [id number] [place] [address] [place] Neutrophils (Bld) [#/Vol] 2.96 10*3/uL Normal 1.45-7.[address] [facility] Comment on above: Order Comment: Speci men Type: BLOOD SPECIMENOrdering Facility: [facility] Address: [address] Performed By: #### 5 7021-8 ####[facility] LABORATORYCLIA [id number] [address] [place] [address] [place] Neutrophils/100 WBC (Bld) 40.7 % Normal [facility] Comment on above: Order Comment: Speci men Type: BLOOD SPECIMENOrdering Facility: [facility] Address: [address] [place] [address] Performed By: #### 5 7021-8 ####[facility] LABORATORYCLIA [id number] [address] [place] [address] [place] Nucleated RBC (Bld) [#/Vol] 10*3/uL Normal <0.[address] [facility] Comment on above: Order Comment: Speci men Type: BLOOD SPECIMENOrdering Facility: [facility] Address: [address] [place] [address] Performed By: #### 5 7021-8 ####[facility] LABORATORYCLIA [id number] [address] [place] [address] [place] Nucleated RBC/100 WBC (Bld) [Ratio] 0.0 /100 WBC Normal [facility] Comment on above: Order Comment: Speci men Type: BLOOD SPECIMENOrdering Facility: [facility] Address: [address] [place], [place] [address] Performed By: #### 5 7021-8 ####[facility] LABORATORYCLIA [id number] [address] [place] [address] [place] Platelet mean volume (Bld) [Entitic vol] 9.3 fL Normal 9.0-12.[address] [facility] Comment on above: Order Comment: Speci men Type: BLOOD SPECIMENOrdering Facility: [facility] Address: [address] [place], [place] [address] Performed By: #### 5 7021-8 ####[facility] LABORATORYCLIA [id number] [address] [place] [address] [place] Platelets (Bld) [#/Vol] 373 10*3/uL Normal 150-[address] [facility] Comment on above: Order Comment: Speci men Type: BLOOD SPECIMENOrdering Facility: [facility] Address: [address] [place] [address] Performed By: #### 5 7021-8 ####[facility] LABORATORYCLIA [id number] [address] RBC (Bld) [#/Vol] 4.20 10*6/uL Normal 3.90-5.20 [facility] Comment on above: Order Comment: Speci men Type: BLOOD SPECIMENOrdering Facility: [facility] Address: [address] [place] [address] Performed By: #### 5 7021-8 ####[facility] LABORATORYCLIA [id number] [address] WBC (Bld) [#/Vol] 7.27 10*3/uL Normal 3.70-11.00 [facility] Comment on above: Order Comment: Speci men Type: BLOOD SPECIMENOrdering Facility: [facility] Address: [address] [place] [address] Performed By: #### 5 7021-8 ####[facility] LABORATORYCLIA [id number] [address] OF [facility] Basophils (Bld) [#/Vol] 0.04 10*3/uL <0.11 k/uL [facility] Basophils/100 WBC (Bld) 0.6 % [facility] Differential cell count method Nom (Bld) Auto [facility] Eosinophils (Bld) [#/Vol] 0.73 10*3/uL High <0.46 k/uL [facility] Eosinophils/100 WBC (Bld) 10.0 % [facility] Erythrocyte distribution width (RBC) [Ratio] 11.8 % 11.5 - 15.0 % [facility] Hematocrit (Bld) [Volume fraction] 41.7 % 36.0 - 46.0 % [facility] Hemoglobin (Bld) [Mass/Vol] 13.5 g/dL 11.5 - 15.5 g/dL [facility] Immature granulocytes (Bld) [#/Vol] <0.10 k/uL [facility] Immature granulocytes/100 WBC (Bld) 0.1 % [facility] Lymphocytes (Bld) [#/Vol] 2.89 10*3/uL 1.00 - 4.00 k/uL [facility] Lymphocytes/100 WBC (Bld) 39.8 % [facility] MCH (RBC) [Entitic mass] 32.1 pg 26.0 - 34.0 pg [facility] MCHC (RBC) [Mass/Vol] 32.4 g/dL 30.5 - 36.0 g/dL [facility] MCV (RBC) [Entitic vol] 99.3 fL 80.0 - 100.0 fL [facility] Monocytes (Bld) [#/Vol] 0.64 10*3/uL <0.87 k/uL [facility] Monocytes/100 WBC (Bld) 8.8 % [facility] Neutrophils (Bld) [#/Vol] 2.96 10*3/uL 1.45 - 7.50 k/uL [facility] Neutrophils/100 WBC (Bld) 40.7 % [facility] Nucleated RBC (Bld) [#/Vol] <0.01 k/uL [facility] Nucleated RBC/100 WBC (Bld) [Ratio] 0.0 /100 WBC [facility] Platelet mean volume (Bld) [Entitic vol] 9.3 fL 9.0 - 12.7 fL [facility] Platelets (Bld) [#/Vol] 373 10*3/uL 150 - 400 k /uL [facility] RBC (Bld) [#/Vol] 4.20 10*6/uL 3.90 - 5.2 0 m/uL [facility] WBC (Bld) [#/Vol] 7.27 10*3/uL 3.70 - 11. 00 k/uL [facility] TYPE AND SCREEN,30 DAYon ABO A [facility] HIstorical Ab Scr Status Negative [facility] Rh Nom (Bld) Positive [facility] ABO A Normal [facility] Comment on above: Order Comment: Speci men Type: BLOOD SPECIMEN [facility]ing [facility]: [facility] Address: [address] [place] [phone] Performed By: #### T SCR30 #### [facility] CLIA [id number] [address] [place], [place] [address] [facility] HISTORICAL AB SCR STATUS Negative [facility] Comment on above: Order Comment: Speci men Type: BLOOD SPECIMEN Ordering Facility: [facility] Address: [address] [id number] Performed By: #### T SCR30 #### [facility] CLIA [id number] [address] [place] [address] Rh Nom (Bld) Positive [facility] Comment on above: Order Comment: Speci men Type: BLOOD SPECIMEN Ordering Facility: [facility] Address: [address] [phone] Performed By: #### T SCR30 #### [facility] CLIA [id number] [address] [place] [address] Gallo 03-16-2022 CNPN Telephone (NEADFV) HANNAH HENDRICKS ([id number]) 1990 F Date Time Provider Department 03/16/22 KONSTANTIN KIRKLAND During your visit today, we recorded the following information about you: Karen Modi Sec 03/16/2022 1:33 PM Signed Patient at [phone] is requesting a call back Re: MRI results. She is quite upset. Italia Ackerman RN 03/16/2022 2:10 PM Signed Will forward for review. Italia Ackerman RN 03/16/2022 2:[address] Kirkland spoke with patient. Will be having surgery on 03/20/22. Karen Modi [place] 03/16/2022 3:34 PM Signed Patient at [phone] is requesting a call back. She has another question about medication. Italia Ackerman RN 03/16/2022 3:38 PM Signed Answered question when patient was being scheduled for PAT. Allergies As of Date: 03/16/2022 Noted Allergy Reaction PENICILLINS 10/31/2012 4 - Hives SHELLFISH 10/31/2012 7 - Swelling 12 - Shortness of Breath VANCOMYCIN 12/19/2021 9 - Itching Date Reviewed: 03/05/2022 Reviewed by: Viola Obrien MA - Fully Assessed Reason for Visit: MRI results [Other] Prescriptions as of 03/16/2022 - methocarbamol (ROBAXIN-750) 750 mg tablet Take 1 tablet by mouth three times daily as needed. - methylPREDNISolone (MEDROL, KAM,) 4 mg Dose-Pack As instructed per package - gabapentin (NEURONTIN) 300 mg capsule Take 1 capsule in the morning Take 1 capsule in the afternoon Take 2 capsules at bedtime - oxyCODONE-acetaminoph en (PERCOCET) 5-325 mg tablet Take 1 tablet by mouth every 4 hours as needed for pain (for pain.). - Acetaminophen 500 mg cap Take 1,000 mg by mouth every 6 hours as needed for pain. - POTASSIUM-99 ORAL Take by mouth as needed. - levonorgestrel (MIRENA) 20 mcg/24 hours (7 yrs) 52 mg IUD 1 Each by INTRAUTERINE route one time only. Placed September 2020 Problem List As Of Date 03/16/2022 Noted Resolved Known health problems: none [Z78.9] 12/06/2021 Encounter Status:Closed by ITALIA ACKERMAN on 03/16/22 [facility] MRI LUMBAR SPINE URSZULA Milligan 03-16-2022 [facility] Gallo 03-12-2022 MANDEEPN Telephone (ELISFV) HANNAH HENDRICKS ([id number]) 1990 F Date Time Provider Department 03/12/22 KONSTANTIN KIRKLAND During your visit today, we recorded the following information about you: Darlene Monge [facility] 03/12/2022 8:35 AM Signed Patients first day working and states she is in extreme pain, feels she cannot take it, the top of her right leg and her lower back is stiff, states pain is 7 out of 10. Please call patient at [phone] Italia Ackerman RN 03/12/2022 9:11 AM Signed Patient called yesterday to online producer provider. Will forward for review. Radha Dickens PA-C 03/12/2022 1:42 PM Signed Medrol dosepak sent to pharmacy, MRI ordered. Kelsy Waterman RN 03/12/2022 2:01 PM Signed Call placed to patient. Patient informed of prescription available and MRI ordered. Provided with phone number for scheduling. Verbalizes understanding. Allergies As of Date: 03/12/2022 Noted Allergy Reaction PENICILLINS 10/31/2012 4 - Hives SHELLFISH 10/31/2012 7 - Swelling 12 - Shortness of Breath VANCOMYCIN 12/19/2021 9 - Itching Date Reviewed: 03/05/2022 Reviewed by: Viola Obrien MA - Fully Assessed Reason for Visit: Orders [681] Primary Visit Diagnosis:Spinal stenosis of lumbar region with neurogenic claudication [M48.062] Order(s):methylPREDNI Solone (MEDROL, KAM,) 4 mg Dose-PackAs instructed per packageDisp: 1 tabletRfl: 0 MRI LUMBAR SPINE WO IVCON [[id number]] Order #: [id number] FUTURE Prescriptions as of 03/12/2022 - methylPREDNISolone (MEDROL, KAM,) 4 mg Dose-Pack As instructed per package - gabapentin (NEURONTIN) 300 mg capsule Take 1 capsule in the morning Take 1 capsule in the afternoon Take 2 capsules at bedtime - methocarbamol (ROBAXIN-750) 750 mg tablet Take 1 tablet by mouth three times daily as needed. - oxyCODONE-acetaminoph en (PERCOCET) 5-325 mg tablet Take 1 tablet by mouth every 4 hours as needed for pain (for pain.). - Acetaminophen 500 mg cap Take 1,000 mg by mouth every 6 hours as needed for pain. - POTASSIUM-99 ORAL Take by mouth as needed. - levonorgestrel (MIRENA) 20 mcg/24 hours (7 yrs) 52 mg IUD 1 Each by INTRAUTERINE route one time only. Placed September 2020 Problem List As Of Date 03/12/2022 Noted Resolved Known health problems: none [Z78.9] 12/06/2021 Prescriptions ordered this encounter Disp Refills Start End METHYLPREDNISOLONE 4 MG TABLETS IN A* 1 ta* 0 03/12/2022 03/18/2022 Sig: As instructed per package Encounter Status:Closed by KELSY WATERMAN on 03/12/22 [facility] ANES POSTPROC EVALon 022 ANES POSTPROC EVAL HNO ID: [id number] Author: Lisette Tarango MD Service: Anesthesiology Author Type: Anesthesiologist Type: Anesthesia Postprocedure Evaluation Filed: 12/19/2021 10:07 AM Note Text: POST ANESTHESIA EVALUATION NOTE : 1990 Procedure Summary Date: 12/19/21 Room / Location: [place] [address] / OR Anesthesia Start: 739 Anesthesia Stop: 921 Procedure: LAMINECTOMY DISCECTOMY LUMBAR LEVEL 1 (Right: Spine Lumbar) Diagnosis: Lumbar disc herniation Radiculopathy, lumbar region (Lumbar disc herniation [M51.26]) (Radiculopathy, lumbar region [M54.16]) Surgeons: Konstantin Kirkland MD Responsible Provider: Lisette Tarango MD Anesthesia Type: general ASA Status: 1 Anesthesia Type: general Airway Type: ETT Last Vitals Vitals Value Taken Time BP 114/62 12/19/21 1000 Temp 36.4 ?C (97.5 ?F) 12/19/21 0918 Pulse 68 12/19/21 1006 Resp 18 12/19/21 0930 SpO2 100 % 12/19/21 1006 Vitals shown include unvalidated device data. Post Anesthesia Patient Status Patient Evaluation: PACU. PACU/ICU Patient Condition: stable. Anticipated Disposition: phase 2 then home. Neurological Status: aware and responsive. Pulmonary Status: breathing comfortably on room air Airway Control: returned to baseline unsupported. Cardiovascular Status: stable. Pain Management: clinically adequate Postoperative Hydration: acceptable. Intraoperative Events: no significant anesthesia events Post Operative Nausea/Vomiting Status: no significant post operative nausea or vomiting Anesthetic Observations: Recommendation: continue current plan of care. Anesthesia Observations No Documentation SIGNATURE: Lisette Tarango MD PATIENT NAME: Hannah Hendricks DATE: December 19, 2021 TIME: 10:07 AM CSN: [id number] [facility] ANES PRE-OPon 12-19-2021 ANES PRE-OP HNO ID: [id number] Author: Viridiana Brower MD Service: Anesthesiology Author Type: Anesthesiologist Type: Anesthesia Preprocedure Evaluation Filed: 12/19/2021 7:14 AM Note Text: ANESTHESIOLOGY DAY OF SURGERY NOTE : 1990 Procedure Information Date/Time: 12/19/21729 Procedure: LAMINECTOMY DISCECTOMY LUMBAR LEVEL 1 (Right: Spine Lumbar) - Right L4-5 microdiscectomy Location: OR09 / [facility] Surgeons: Konstantin Kirkland MD Estimated body mass index is 28.99 kg/m? as calculated from the following: Height as of 12/06/21: 165.1 cm (5' 5). Weight as of 12/06/21: 79 kg (174 lb 3.2 oz). Most recent hematocrit and potassium results: Hematocrit 37.1 12/06/2021 Potassium 4.3 12/06/2021 Relevant Problems No relevant active problems I - PHYSICAL EVALUATION AIRWAY Patient intubated: No. Tracheostomy tube not present Mallampati: I. TM distance: >3 FB. Neck ROM: full. Mouth opening: adequate. Short neck: no. Thick neck: no DENTAL Normal dental observations. Dental findings: teeth intact. Additional exam findings: yes. CARDIOVASCULAR Normal cardiovascular observations. Rhythm: regular Rate: normal PULMONARY Normal pulmonary observations. Breath sounds clear to auscultation. II - ANESTHESIA PLAN ASA Score: 1 Anesthetic Plan: general Airway type: ETT The patient is not a current smoker. NPO Status: adequate Monitoring plan: Standard ASA. Postoperative analgesic plan: multimodal analgesia. Informed Consent Anesthetic risks, benefits, alternatives, personnel and consent discussed: yes. Patient / Responsible Libertarian agrees to proceed: yes Patient / Surrogate agrees to blood products: Yes Significant changes in the patient condition since the History and Physical, not otherwise documented in primary service progress note: no. Potential Anesthesia issues that may suggest increased risk of complications or contraindication to planned procedure: none. Vitals Value Taken Time BP 128/85 12/19/21613 Pulse Resp 18 12/19/21613 Temp 36.5 ?C (97.7 ?F) 12/19/21613 SpO2 98 % 12/19/21613 Facility-Administered Medications as of 12/19/2021 Medication Dose Route Frequency - lactated ringers iv infusion 75 mL/hr INTRAVENOUS CONTINUOUS - vancomycin iv piggyback 1 g in D5W 200 mL (VANCOCIN) 1 g INTRAVENOUS ONCE - NaCl 0.9% iv flush bag 20 mL INTRAVENOUS PRN Outpatient Medications as of 12/19/2021 Medication Sig - Acetaminophen 500 mg cap Take 1,000 mg by mouth every 6 hours as needed for pain. - methylPREDNISolone (MEDROL DOSE-PACK) 4 mg Dose-Pack As Instructed per package (Patient not taking: No sig reported) - levonorgestrel (MIRENA) 20 mcg/24 hours (7 yrs) 52 mg IUD 1 Each by INTRAUTERINE route one time only. Placed September 2020 I have interviewed and examined the patient. I have reviewed the medical record and/or the pre-anesthesia evaluation, pertinent labs, and test results. This contains updated information obtained within 48 hours of Surgery/Procedure. SIGNATURE: Viridiana Brower MD PATIENT NAME: Hannah Hendricks DATE: December 19, 2021 TIME: 7:14 AM CSN: [id number] [facility] BRIEF OP NOTon 12-19-2021 BRIEF OP NOT HNO ID: [id number] Author: Demetrice Orantes MD Service: Neurosurgery Author Type: Resident Type: Brief Op Note Filed: 12/19/2021 9:14 AM Note Text: BRIEF OPERATIVE / PROCEDURE NOTE LOG ID: [id number] SURGERY/PROCEDURE DATE: 12/19/2021 INCISION/PROCEDURE START TIME: 8:05 AM INCISION CLOSE/PROCEDURE END TIME: 9:06 AM SURGEON(S)/PROCEDURAL IST(S) AND CIGARETTE EXAMINER(S): Surgeon(s) and Role: * Konstantin Kirkland MD - Primary * Demetrice Orantes MD - Resident - Assisting No Additional Staff SURGERY/PROCEDURE(S): Right L4/5 microdiscectomy ANESTHESIA: General FINDINGS: Appropriate decompression ESTIMATED BLOOD LOSS: 25 mls SPECIMENS: None COMPLICATIONS: None PRE-OP/PRE-PROCEDURE DIAGNOSIS: Right L4/5 herniated disc POST-OP/POST-PROCEDUR E DIAGNOSIS: Right L4/5 herniated disc SIGNATURE: Konstantin Kirkland MD PATIENT NAME: Hannah Hendricks DATE: December 19, 2021 TIME: 8:49 AM [facility] HCG Preg Ur Qlon 12-19-2021 HCG ( test) Ql (U) Negative Normal Negative [facility] Comment on above: Order Comment: Speci men Type: URINE SPECIMENOrdering Facility: [facility] Address: [address] [place] [phone] Result Comment: This test is intended to aid in the early detection of . Very dilute urine samples, as indicated by a low specific gravity, may not contain insurance account representative levels of hCG. This test detects intact hCG only. This test does not reliably detect hCG degradation products, including free-beta subunit and beta-core fragment. Therefore, this test may show reduced reactivity in urine after 8 weeks gestation. A number of conditions other than , including trophoblastic disease and certain non-trophoblastic neoplasms cause elevated levels of hCG. As with any assay employing mouse antibodies, the possibility exists for interference by human anti-mouse antibodies (HAMA) in the specimen. The test provides a presumptive diagnosis for . Performed By: #### 2 106-3 ####[facility]ORYIA [id number] [address] NURSING PROGon 12-19-2021 NURSING PROG HNO ID: [id number] Author: Ryanne Tracy RN Service: ? Author Type: Registered Nurse Type: Nursing Progress Note Filed: 12/19/2021 9:18 AM Note Text: Discharge Status: Patient is Drowsy, and is no airway issues. Skin condition was WNL. Transported to recovery room via cart with siderails up. Accompanied by supervisor data processing and surgeon. [facility] NURSING PROG HNO ID: [id number] Author: Ryanne Tracy RN Service: ? Author Type: Registered Nurse Type: Nursing Progress Note Filed: 12/19/2021 8:08 AM Note Text: Patient transported to the OR via cart, accompanied by Ambrocio Rooney/ Jennyfer Tracy. Level of consciousness: Alert and Oriented x 3 Emotional Status:Calm Sensory Impairments: No Language Barrier: No Mobility Impairments: No Addressed any patient concerns regarding consents, OR environment, and anesthetics. Body temperature maintained by maintaining OR room temperature between 68-72 degrees F, providing patient with warm bath blankets, limiting areas of exposure, and providing warm irrigation fluid. [facility] OPERATIVE NOon 12-19-2021 OPERATIVE NO HNO ID: [id number] Author: Konstantin Kirkland MD Service: Neurosurgery Author Type: Physician Type: Operative Report Filed: 12/19/2021 11:55 AM Note Text: OPERATIVE/PROCEDURE REPORT LOG ID: [id number] SURGERY/PROCEDURE DATE: 12/19/2021 INCISION/PROCEDURE START TIME: 8:05 AM INCISION CLOSE/PROCEDURE END TIME: 9:06 AM SURGEON(S)/PROCEDURAL IST(S) AND CIGARETTE EXAMINER(S): Surgeon(s) and Role: * Konstantin Kirkland MD - Primary * Demetrice Orantes MD - Resident - Assisting No Additional Staff SURGERY/PROCEDURE(S): Right L4/5 microdiscectomy ANESTHESIA: General INDICATION: 31 yo F who presents with symptoms of low back and right leg pain in L5 distribution. MRI lumbar spine showed R L4/5 herniated disc and smaller L5/S1 disc. Given imaging and pain distribution decision was made for R L4/5 microdiscectomy SURGERY/PROCEDURE DETAILS: Patient was brought to the operating room. A huddle was performed with anesthesia team and nursing staff and surgical team all agreed to proceed. Patient was positioned prone on the Juliano table. IV antibiotics were given. The area was prepped and draped in usual fashion. A #15 blade scalpel was used to make an incision approximately 3 cm in length in the midline lumbar region. Monopolar cautery and blunt dissection were used to dissect down to the fascial plain and achieved hemostasis. Fascia was cleared and then incised down to the spinous process of L4. Using bony landmarks, the soft tissues and muscles were reflected laterally to the right side. Once adequate visualization of the L4 was achieved, a self-retaining retractor was inserted. An instrument was inserted into the wound to identify the L4 level utilizing cross-table intra-operative x-ray. After verification of the level, the high speed side-cutting air drill was used to perform a hemilaminectomy of L4 on the right side. Once the lamina had been removed, a curette was used to remove the ligamentum flavum and expose the dura. Once the dura was visualized, a Kerrison rongeur was then used to remove the remainder of the ligamentum flavum and soft tissue. Adequate hemostasis was achieved with bipolar cautery. The nerve root was retracted medially with a nerve root retractor. The pituitary grabber was used along with the blunt tip nerve hook to free a disk fragment impinging on the nerve root. The pituitary grabber removed the disk fragment successfully. Additional disk fragments were identified and removed with the pituitary grabber. The nerve was well decompressed. Incision was closed in 3 layers. 1 Vicryl for fascia, 2-0 Vicryl for subcutaneous layer, 4-0 monocryl for skin. Dressing was applied. Patient was gently emerged from anesthesia and was transferred to PACU in stable condition. PRE-OP/PRE-PROCEDURE DIAGNOSIS: Right L4/5 herniated disc POST-OP/POST-PROCEDUR E DIAGNOSIS: Right L4/5 herniate disc ESTIMATED BLOOD LOSS: 25 mls SPECIMENS: None IMPLANTABLE DEVICES: None DRAINS: None COMPLICATIONS: None PARTICIPATION IN SURGERY/PROCEDURE: Konstantin Kirkland and Demetrice Orantes performed the opening, decompression and closure together SIGNATURE: Konstantin Kirkland MD PATIENT NAME: Hannah Hendricks DATE: December 19, 2021 TIME: 8:54 AM [facility] XR LUMBAR SPECIFY 1Von 12-19 XR LUMBAR SPECIFY 1V * * *Final Report* * * DATE OF EXAM: Dec 19 2021 8:01AM MISAEL [id number] - XR LUMBAR SPECIFY 1V / PROCEDURE REASON: Lumbar disc herniation * * * * Physician Interpretation * * * * Lateral lumbar spine History: Intraoperative localization for spinal surgery. Findings: Orthopedic marker is posterior superior to the L5 spinous process Counting reference: Lumbosacral junction. For the purposes of this report, L4-5 is considered the level of the iliac crest and there are 5 lumbar-type vertebrae. Anatomic Variants: None. IMPRESSION: Localization for surgical purposes Director Instrumentation: RAYSA Transcribe Date/Time: Dec 19 2021 8:06A Dictated by : HAYDE RONDON MD This examination was interpreted and the report reviewed and electronically signed by: HAYDE RONDON MD on Dec 19 2021 8:07AM EST [id number] [facility] XR VERIFY LEVEL [id number] 12-19-2021 XR VERIFY LEVEL L-SPINE-NB * * *Final Report* * * DATE OF EXAM: Dec 19 2021 8:16AM MISAEL 5642 - XR VERIFY LEVEL L-SPINE-NB / PROCEDURE REASON: Lumbar disc herniation * * * * Physician Interpretation * * * * [id number] TECHNIQUE: Single lateral image of the lumbar spine COUNTING REFERENCE: Lumbosacral junction. L4/5 is presumed to be the level of the iliac crests. COMPARISON: 10/05/2021 RESULT: A single lateral image is obtained intraoperatively for surgical planning. A localizing surgical instrument is noted, just superior to the retractor at the level of the L4 pars interarticularis. Image annotated with vertebral body levels and confirmed with the responsible surgeon at the time of interpretation. IMPRESSION: OPERATIVE ASSESSMENT COMMUNICATION: Communicated with KONSTANTIN KIRKLAND on 12/19/2021 8:22 AM via verbal communication. Director Instrumentation: RAYSA Transcribe Date/Time: Dec 19 2021 8:19A Dictated by : HAYDE RONDON MD This examination was interpreted and the report reviewed and electronically signed by: HAYDE RONDON MD on Dec 19 2021 8:22AM EST [id number] [facility] Basic metabolic 2000 panelon 12-06-2021 Anion gap [Moles/Vol] 9 mmol/L 9 - 18 mmol/L [facility] Calcium [Mass/Vol] 9.9 mg/dL 8.5 - 10. 2 mg/dL [facility] Chloride [Moles/Vol] 103 mmol/L 97 - 10 5 mmol/L [facility] CO2 [Moles/Vol] 28 mmol/L 22 - 30 mmol/L [facility] Creatinine [Mass/Vol] 0.72 mg/dL 0.58 - 0.96 mg/dL [facility] Estimated Glomerular Filtration Rate 116 mL/min/1.73m >=60 mL/min/1.73m [facility] Glucose [Mass/Vol] 87 mg/dL 74 - 99 mg/dL [facility] Potassium [Moles/Vol] 4.3 mmol/L 3.7 - 5.1 mmol/L [facility] Sodium [Moles/Vol] 140 mmol/L 136 - 144 mmol/L [facility] Urea nitrogen [Mass/Vol] 11 mg/dL 7 - 21 mg/d L [facility] CBC W Auto Differential pane l (Bld)on 12-06-2021 Abs Immature Gran <0.10 k/uL [facility] Basophils (Bld) [#/Vol] 0.04 10*3/uL <0.11 k/uL [facility] Basophils/100 WBC (Bld) 0.7 % C [facility] Differential cell count method Nom (Bld) Auto [facility] Eosinophils (Bld) [#/Vol] 0.60 10*3/uL High <0.46 k/uL [facility] Eosinophils/100 WBC (Bld) 10.7 % [facility] Erythrocyte distribution width (RBC) [Ratio] 11.2 % Low 11.5 - 15.0 % [facility] Hematocrit (Bld) [Volume fraction] 37.1 % 36.0 - 46.0 % [facility] Hemoglobin (Bld) [Mass/Vol] 12.7 g/dL 11.5 - 15.5 g/dL [facility] Immature Gran % 0.2 % [facility] Lymphocytes (Bld) [#/Vol] 2.07 10*3/uL 1.00 - 4.00 k/uL [facility] Lymphocytes/100 WBC (Bld) 37.0 % [facility] MCH (RBC) [Entitic mass] 33.3 pg 26.0 - 34.0 pg [facility] MCHC (RBC) [Mass/Vol] 34.2 g/dL 30.5 - 36.0 g/dL [facility] MCV (RBC) [Entitic vol] 97.4 fL 80.0 - 100.0 fL [facility] Monocytes (Bld) [#/Vol] 0.61 10*3/uL <0.87 k/uL [facility] Monocytes/100 WBC (Bld) 10.9 % C [facility] Neutrophils (Bld) [#/Vol] 2.26 10*3/uL 1.45 - 7.50 k/uL [facility] Neutrophils/100 WBC (Bld) 40.5 % [facility] Nucleated RBC (Bld) [#/Vol] <0.01 k/uL [facility] Nucleated RBC/100 WBC (Bld) [Ratio] 0.0 /100 WBC [facility] Platelet mean volume (Bld) [Entitic vol] 9.6 fL 9.0 - 12.7 fL [facility] Platelets (Bld) [#/Vol] 321 10*3/uL 150 - 400 k /uL [facility] RBC (Bld) [#/Vol] 3.81 10*6/uL Low 3.90 - 5.2 0 m/uL [facility] WBC (Bld) [#/Vol] 5.59 10*3/uL 3.70 - 11. 00 k/uL [facility] MRI LUMBAR SPINE WO IVCONon 10-05-[address] [facility] [address] Spine Lumbar w/o Contrast on 09-14-2021 CT Spine Lumbar w/o Contrast Exam Date/Time: 09/13/2021 23:08 EDT Reason for Exam: Low back pain, progressive neurologic deficit;Other (please specify) Report IMPRESSION: No acute fracture or traumatic malalignment. L4-L5 and L5-S1 disc bulges with mild canal stenosis and [id number] left neural foraminal narrowing, most prominent at left L5-S1. EXAMINATION: CT Spine Lumbar w/o Contrast HISTORY: Low back pain, progressive neurologic deficit. TECHNIQUE: Spiral, high resolution axial images were obtained from the thoracolumbar junction to the sacrum with sagittal and coronal planar reconstructions. All CT scans at this facility use dose modulation, iterative reconstruction, and/or weight based dosing when appropriate to reduce radiation dose to as low as reasonably achievable. COMPARISON: None. RESULT: Counting reference: Lumbosacral junction. For the purposes of this report, L4-5 is considered the level of the iliac crest. Alignment: Alignment is anatomic. Bone marrow /fracture: No evidence of a lytic or blastic process in the visualized spine. No evidence of acute or chronic fracture. Paraspinal soft tissues: The paraspinal soft tissues planes are maintained. Lower thoracic spine: The visualized lower thoracic bony canal and foramina are without significant narrowing. T12-L1: No significant canal or foraminal narrowing. L1-L2: No significant canal or foraminal narrowing. L2-L3: No significant canal or foraminal narrowing. L3-L4: No significant canal or foraminal narrowing. L4-L5: Disc bulge without significant canal stenosis. Mild bilateral neural foraminal narrowing. L5-S1: Disc bulge with mild canal stenosis. Moderate left and mild right neural Report foraminal narrowing. Sacrum and iliac wings: The visualized sacrum and iliac wings are within normal limits. FINAL REPORT Dictated: 09/14/2021 10:22 am Shadi Gee MD Signed (Electronic Signature): 09/14/2021 10:22 am Signed by: Shadi Gee MD Transcribed by: SAM Technologist: KATARZYNA Sheehan [facility] Coding Summary.on 09-14-2021 Coding Summary. CD:[id number] h0bWw+PGhlYWQ+YT9TYZA fK11tpZGhaQ5WS4iFVP2S SUDWREXBEF3HVP4loSO3M WzzP3YyfyIi DloskQGaXP38KHj8UTS6j OcySHlyzI5foNYjS6m9Zc AuWI54nD59UBcgKQJcYsM 3LjZpbjsgbWFy L4unPmBaoGVsUzi+PHRhY mxlIHdpZHRoPScxMDAlJy KwqEnbWC7jSv4xHUHaEDE vbGxhcHNlOiBj c7yhSZYwBYkcWX0xoApqF 4LsmDF9PHElo8h8Mb01nX I+MVAiDKM4jMuiBSnop39 5IjSht5azFFF6 cETyBGsuPYT0P61cl1P8Y SXnPXThPPL8gUM0tV0olH kiqnngY8WgcOEvDxE8BKP 8dNOznN0pqIss vrmlnI6iElh+K97ZLY5EL ZWPKY2BSml1X8XuHrusvQ I+SV39XXDlZO43xKUmpHK oz7qioId0WdDr LDXfQNS6dMuxKGbgy5VlV BIeM25xiJEou0M1RPWwcC forSTwStOhlJY7xM3jBMx nmxymv7kzqtbv Mbymp4vdpv75jK38E29dL VmvFJXsHNA7HKJhUYBpvR ygeu8obT7aGk1+IOogd7n ui6ytuIv9NwGl RANxkyZliXtfXAT9v6YyR d01S0XnlEqvm3SiFdg7if 58wHXxp7M8jAP4ZKohKLK ykF5nYZhqMtU2 NWKaCbNmnG35kYEqEAlaZ w8otHjhtPruGK2iJCAzbg sjWMRmzZ5yIARdeBPgeVn dXV9cZBKdxqny i261MrDkZDV8PNVicFFbZ 6TwxI0wXcVuBWKgJMOuM4 ZmwJCfSIalP128YMudJhU 8YZIrsuZqF5Bc IDDvjOvvXfI3w0R7Cm2Cd 3CnzcigMQM2ASyhUVR9Ll XgMhDtVlK3N2GeKsb0NCF smTlxRE8mG4Px CPHjmavniunlfCV0SIUcF LVmxU74dBDaHKpoJj8zc6 C5v596MLGiUAUkeR28Ya5 udDogMTBwdCBU pH3wdmmyz4agqamjDdJkW NJzTVc0DCl5IZAeeKjeNz ImRTT2ExO5TLL9nXUqkS5 jkToiooiiaF1f Oyc+D84fkT8xTQJ3SMT4u ltlDBModcSxVX50VM77F3 RyPjwvdGFibGU+PGRpdiB jtVpaUE2sOwOl t4xlf1JjDWwiI3TqZYGpH PjfMbx8KQYwZPC1dBK4xW 6fLUJqLVlzn2W2vHI0N2F mveLkhf5uz1xz LSPuPIzlE31vqCPti4M1T BAlvMB0BCWlvVfsDqHunK 93Oyc+DZWhgPxoo1IlSup cc3hqi7dzlSw2 DvEzZGErfmZrpUlaNAH8h 3OvWp71E63eMUmzWNBkNH QhLTVvKRUxgAuimt6bbE7 wIi8+PGNvbCB3 vCG9qP9uNVGwXeT5WNtfJ 832ZwRngYKcHtbgo2czo0 atfQy0NoAsPUIsdyFquYz bYEU2g7KzJv78 U33hUCurCCGvQOVjIALmI YQolRkvhw6rqM5iPi9+PC 8kz9frac13lU86iWA+PHR aYZS4tTjvTObg CTUhtE0hNWkkZhH7UPYbM cRxjV98iOGyNWdfDy4ctB gkhUerGF5dMCAyyvvgp93 5KcEuj6apWYFn nKRgOMgpFFJ9A80ka7P2R NGlKHEsFRD9uQA1sF2siU lnbjogbGVmdDsgdmVydGl aISrzUNkpM825 IHRvcDsnPlBhdGllbnQgT nBbOCj5C1AzIhn9DICkkX ikCB8xlDPaCFizXe3wvDo cnBmyEM6cIYUa taote892DtNhi4flVCTgi ZCePEawQBY7Z01ke0E5MT CvSSWtBHC5pBA1lY3mvHn nbjogbGVmdDsg keCveKrzKDkxLXbbJ518P HRvcDsnPkJpcnRoIERhdG J3XH17OW44hURlv5V7jLD 0H9LsWSRpycki mlaazET3LLMzOWMweE13S h9axZapLg3zEOGhIQN6NY CciCEvA2CisZ8dMxJdTWA iZPJlP3FxvOAw FEoeN978RHwcInR1DFRgy qTeU7CjYSCuwEnrBtQ0u6 Y8Ti8CA5E5YI13HB97dRP rz1K4gFI7Q6Yt FFVrykakayreoTL7ZPJsC JXomT15Ep4xeNvnQc6eII AaFTS8BDVroVLfP0VrzS6 yOiAjMDAwMDAw Y7WfkTHmFXeaN266ENkmT dV3DGCzhhXvM1GyJDRuiI uvPdQ9y9H2Mi5SJWh5RO9 1WM47sGCqm1M5 dTM3P0ByJJWhokqmvyvcj KX1PEHcMMBbaD20Oq5grZ abSc7lXEQxJJX0DSKwfKV tO1IyoK7lWsQe OJMfQFWeB0DypNPqTSqbU 912URweYmM5VHUzxxWrA2 GjVTCeoVmvHwB5m5I1Ky7 KMTZcKB04ING1 qMR0TN31IW47A7WrRmhre GFibGU+PHRhYmxlIHdpZH RoPScxMDAlJyBzdHlsZT0 wFt6fBZFeWNIc sXmwiBRtDiRdi7iuHEPiA NnaDQ4bpNxyR9KkfZW8GY Hwf1y4Sn23S85uV0GitCH +ADQhoME6uWT4 tS6kYqJbOyS0BJgsG527Q cDehCBlOedbc9qie6dnbK z6BsM8SKNoakFytHaqJXO 7d6MdVb51K37f IHdpZHRoPSIxNSUiIHZhb Zebei9utK7pKe1+PGNvbC X5dHD2rY1hWgJcPrK6VFo rB239ArTbuXDe Lcsaf0dnh9pikGm9SyJmT GBbfxQasOukJDM2f1KqXr 45D2PzePzsh6GfWlj5wt9 6wLNee9F4uJQ7 K6RrPGAnapcmuFHcbSuwN D2oTTWdyscqVSMqpN6cQQ DrE4u8QoDuSeJ9SJlmJ7O jubP9NXYtzRPg HJlnJHE3O62yh5G9NFLuS HZgQXP2uHG7bF5roTjiif ogbGVmdDsgdmVydGljYWw oTGvnL404PDEz cCtyKMOboS0zXKPupMIgg VqhDO1bOKAruenxFcwMI2 hBUklBUywgQVNITEVZPC9 2CU91xXRnp5L6 nFN8P2FxJBXzukcqlcunl DE4IOAgJGKuiS98dEGzVI gvTy4co5H2y950XDLaPJW tyM17He8qcCpz PXYvtJNKyJ0dcfeco8rpp xfbQvAhBKDaDEu5UJp8EU UxeYplNjQjAGG1QvY4OTC 4cMIuhQ8enMgl puvokO9dOgd+MTIvMDEvM Rz0FvabmFF+PGGfZCJ9qC oqJOgmDBYomZ7cXITyQ7g 1QyHhZrR0KCyc Q8KiPSFvehuuQg05oW0oF hRnTdE9LBmwP3YkfaY5VK VinNPgTAfbBPT3R77og3L 6HPJgWFDxOVS1 vWD0xC8kgLavvxjipYEke DsgdmVydGljYWwtYWxpZ2 86WQCmiXmsBcK4QAplSHJ rQZ81DI86tLDq n4O0jFW6M9AnHIBqauodl xllmNB0EZZkDEScnO03sG SuQEzlDl5kn9J1m839UPS wEDGwcV96Di3f sOdhKIXijVQCgI3vnamfb 3uapmogLwXzRHXfFEw3LP k8LSEhsZuxNaLsDXO1LxV 0YYF0zHLuvJ5u aKyhbhdpjK9iExs+RmVtY XjcZE52XZ56bMIpd4A0sV X2I4CqDEWdcyagavffpGH 8AQOzJHTfwL09 uZMrYJyqVu9cz7Y1n021L QHbVJOigV44Dx8pmNreJQ UcjWZJuD3lguscg8glnxm gIzAwMDAwMDt0 VAy8QBJbzWzmAeGhOSA2G vK2KNQ9kBDscH6abTtuhz dpjX4dAok+TT8qnqzkyrJ 3MP96UP69R5Od PjwvdGFibGU+PHRhYmxlI HdpZHRoPScxMDAlJyBzdH slML3hNw5lJHBoFEAvqYe bnZUqIiUqc6km POKfVWlmLL9smFchW1Uct WF9QKCvu4s2Ye50U20eC6 JvdXA+PAAgdUF6hIA7tO0 yCpBsLuJ3XLbo X206YiKqvSJlSgamu9ppj 7lhdUi3OoRjMWBejrNrwX pcIFV3c0GoXw10N89uUUo pZHRoPSIyMCUi HPXozKqews2qlW0dGn0+P STmxJO9hXK0oV2rDmIlHg G5ZDrcP945JuDirIJzIii vU32tN7VhaJC+ FZKbJcd6NMHtlUwiFL5xs SAeRYfwKi7iTCM2DlCsYh MeTViwM3LwERAcopkdcpw bwOW9EOBuXCFu oA14Vl5xkPmqVr7qZDKkC AC4BRBrqTZoQ3RuiE7wFo UrYABvKDTkI9WzwKNoLYh jN528EEhdGpW4 FFHrvhEjL2IhEHLxdNydV qV5t4V0Jk4BlPrigDGrLM 8pTsXqSLe8D7FoAqf2JQS weLyyGQ7klOUc FRejFz7boCfluGbkBN1jU IQtvnmvz860HzBnn7upZA NvuYQfTUolPDO6D90rm9T 6JFCzEBViRTW7 mMK9qI7rlCgggikaoQWpu DsgdmVydGljYWwtYWxpZ2 85JERojIizHzLQXvf9L8B aYzp0QFIjfBan FZ4zbORrNTzjXy4nbJfjr LxfNV8pZNYgxgqoa147Vl Bnv2nuOYFusNJySDzfSNH 1D74nq3L2NTKu OQCpUWE0iZA7pE7ujVwah jogbGVmdDsgdmVydGljYW upHEfvG858KYMlkHhbMy0 ANsh7X2RdKnv7 VYHcmSegAP6bvUFvMNysO f8reKsdoTebNM0nKNVixy ndc340CgHip6kxOYDipAW bQRpuXBV5Z03n g5S7BRJoEFQgBDE2kKG8z H5tnXugxcbkiJJpbXwexw FbkGucNFfuITqyB497DQC vcDsnPlBheWVy OjwvdGQ+IU07ig31J2YsU suqLzi3MNGwBKX4dPM7uM 6oVCBoZZkpd8T2mKK7Q7L hnrNuqd6sa5vm YXBz (more content not included)... Normal [facility] Discharge Instructionson Discharge Instructions [id number]# [id number]:127 Normal [facility] ED Clinical Summaryon 2021 ED Clinical Summary [place] [id number] ED Clinical Summary Person Information Name: HANNAH HENDRICKS/[facility] Age: 31 Years : 1990 Sex: Female Language: Ukrainian PCP: Severiano Wallace III, DO Marital Status: Phone: [phone] Visit Id: Visit Reason: Back pain; BACK PAIN Speciality: Acuity: 4 Enc Type: Emergency Med Service: Emergency Arrival: 09/13/2021 20:29:38 Discharge: 09/13/2021 23:57:24 LOS: 000 03:28 Checkin: 09/13/2021 20:29:38 Checkout: 09/13/2021 23:57:24 Dispo Type: Home (Routine DC) EVENTS: Event Name Event Status Request Date/Time Start Date/Time Complete Date/Time Arrive Complete 09/13/2021 20:29:38 09/13/2021 20:29:38 09/13/2021 20:29:38 Document Home Meds Request 09/13/2021 20:29:38 Triage Complete 09/13/2021 20:29:38 09/13/2021 20:36:50 09/13/2021 20:36:50 Registration Complete 09/13/2021 20:38:22 09/13/2021 20:38:22 09/13/2021 20:38:22 Reg Complete Request 09/13/2021 20:38:22 Reg Bed Request Complete 09/13/2021 20:38:22 09/13/2021 20:38:22 09/13/2021 20:38:22 Bed Assign Complete 09/13/2021 21:10:10 09/13/2021 21:10:10 09/13/2021 21:10:10 Dr Exam Complete 09/13/2021 21:10:10 09/13/2021 21:15:38 09/13/2021 21:15:38 RN Exam Request 09/13/2021 21:10:10 Registration Complete 09/13/2021 21:15:38 09/13/2021 21:32:43 09/13/2021 21:32:43 CT Complete 09/13/2021 21:52:18 09/13/2021 22:56:56 09/13/2021 23:08:07 Meds Admin Complete 09/13/2021 21:52:18 09/13/2021 22:41:56 Pending Labs Complete 09/13/2021 22:15:01 09/13/2021 22:54:50 Lab Complete 09/13/2021 22:15:01 09/13/2021 22:54:50 Urine Collect Complete 09/13/2021 22:15:01 09/13/2021 22:54:50 Discharge Complete 09/13/2021 23:48:12 09/13/2021 23:57:29 09/13/2021 23:57:29 Transfer Complete 09/13/2021 23:57:29 09/13/2021 23:57:29 09/13/2021 23:57:29 ADDRESS: [address] [place], [place] [id number] PHYS DOC NOTES: MEDICAL INFORMATION: Prescriptions Given: New Medications Printed Prescriptions acetaminophen-hydroco done (Denver 325 mg-5 mg oral tablet) 1 Tablets By Mouth every 6 hours as needed for pain. Refills: 0. lidocaine topical (Lidoderm 5% topical film) 1 Patches Topical every day. apply 12 hours on and 12 hours off daily. Refills: 0. methocarbamol (Robaxin 500 mg Tab) 1 Tablets By Mouth 3 times a day for 3 Days. Refills: 0. predniSONE (predniSONE 50 mg Tab) 1 Tablets By Mouth every day for 5 Days. Refills: 0. PATIENT EDUCATION INFORMATION: Instructions: Back Exercises, Kjol-[id number] Follow up: With: Address: When: Santana Vidal [address] [place] [id number] [facility] (1) In 3 days 09/16/2021 Comments: Take the prednisone daily until you have completed the course you can use the Robaxin, [place] as prescribed as needed for pain. Use lidocaine patch daily. Please follow-up with your primary care doctor and orthopedic for further evaluation management. With: Address: When: Severianojacqueline Wallace [address] [place] [address] [facility] () In 3 days DIAGNOSIS: Sciatica Normal [facility] ED Note-Nursingon 09-14-2021 ED Note-Nursing pt given d/c instructions and educated on importance of follow up. pt educated on new medications. pt verbalized understanding of instructions and readiness for d/c. pt walked self ambulatory to waiting room in stable condition. pt driven home by boyfriend. [facility] ED Note-Physicianon 09-15-19 ED Note-Physician Basic Information Time Seen: Moon Manuel DO 09/13/2021 21:15 Chief Complaint pt arrives for c/o lower back pain. states she has been seeing a chiropractor for the last six weeks. pt states shooting pain down her back History of Present Illness Patient is a 31-year-old female with no past medical history presenting to the ED for evaluation of lower back pain. Patient states symptoms been ongoing for the last 6 to 7 weeks with pain in her lower back with radiation down her right leg. Patient sent taking ibuprofen at home has also been seeing a chiropractor with minimal improvement of her symptoms. Has had intermittent numbness down her leg which has been progressively worsening however has currently resolved at this time denies any bowel or bladder incontinence, saddle anesthesia, fevers, chills, nausea, vomiting. Denies any known injury or trauma to her back. Review of Systems General: Denied fever, chills, weight loss HEENT: Denied Congestion, rhinorrhea, sore throat Cardiac: Denied Chest pain, palpitations, dizziness/lightheaded ness Respiratory: Denied Dyspnea, cough Abdominal: Denied abdominal pain, nausea, vomiting, diarrhea, constipation : Denied dysuria, hematuria Back:+ Back pain Extremities: Denied leg swelling, leg pain, calf tenderness Neuro: Denied Focal neurologic deficits, vision changes, difficulty with speech Integumentary: Denied rashes or lesions Physical Exam Vitals & Measurements T: 36.7 ?C(Oral) HR: 110(Peripheral) RR: 15 BP: 135/90 SpO2: 98% HT: 165 cm HT: 165.0 cm WT: 78 kg WT: 78.0 kg BMI: 28.65 General: Well developed, non toxic appearing, no acute distress HEENT: Head atraumatic, Mucosa moist, hearing grossly normal Neck: No JVD, tracheal deviation Cardiac: Regular rate, rhythm, no murmurs, or gallops, 2+ radial pulses Respiratory: Lungs clear to auscultation B/L, normal respiratory effort Abdomen: Soft non tender, no rebound or guarding, no peritoneal signs Back: Tenderness palpation of the right lower lumbar spine and paraspinal musculature, pain with elevation of the leg, 5 out of 5 muscle strength in the lower extremities bilaterally, sensation intact to light touch bilaterally Extremities: No edema noted in the LE B/L, no tenderness to palpation Neurologic: Alert and oriented, speech clear Skin: No rashes or lesions Psych: Appropriate mood and behavior Medical Decision Making Patient is a 31-year-old female presenting to the ED for evaluation of lower back pain. Patient is nontoxic-appearing on arrival, no acute distress. Does have radicular symptoms noted on exam. Due to the duration of the symptoms and reported intermittent numbness down her leg CT imaging is obtained which shows degenerative changes at L4-L5. Patient is given [place], Lidoderm, Norflex in addition to prednisone in the ED. On reevaluation he reports some improvement of her symptoms. Patient is discharged home given follow-up with orthospine in addition to prednisone burst, muscle relaxers in addition to topical lidocaine. She is to follow-up with her primary care doctor in the next 2 to 3 days she is to return the ED for any new or worsening symptoms. Assessment/Plan Sciatica (M54.30: Sciatica, unspecified side) Orders: acetaminophen-hydroco done, 1 tab(s), Tab, Oral, Once, Stop date 09/13/21 21:51:00 EDT, STAT, Start date 09/13/21 21:51:00 EDT acetaminophen-hydroco done, 1 tab(s), Oral, q6hr for pain, 12 tab(s), Refill(s) 0 lidocaine topical, 1 patch(es), Topical, Daily, 7 EA, Refill(s) 0, apply 12 hours on and 12 hours off daily lidocaine topical, 1 patch(es), Patch, TransDermal, Once, Stop date 09/13/21 21:52:00 EDT, STAT, Start date 09/13/21 21:52:00 EDT methocarbamol, 500 mg = 1 tab(s), Oral, TID, X 3 day(s), # 12 tab(s), Refills(s) 0 orphenadrine, 60 mg = 2 mL, Injection, IntraMuscular, Once, Stop date 09/13/21 21:52:00 EDT, STAT, Start date 09/13/21 21:52:00 EDT, 09/13/21 21:52:00 EDT predniSONE, 50 mg = 1 tab(s), Oral, Daily, X 5 day(s), # 5 tab(s), Refills(s) 0 predniSONE, 60 mg = 3 tab(s), Tab, Oral, Once, Stop date 09/13/21 21:51:00 EDT, STAT, Start date 09/13/21 21:51:00 EDT, 09/13/21 21:51:[address] Spine Lumbar w/o Contrast U Beta Hcg Qual Medications Administered Given Lidoderm 5% Patch, 1 patch(es), TransDermal [place] 5/325 Tab, 1 tab(s), Oral orphenadrine 30 mg/mL Inj, 60 mg, IntraMuscular predniSONE 20 mg Tab, 60 mg, Oral Disposition Plan Discharge Prescription List Prescriptions Lidoderm 5% topical film, 1 patch(es), Topical, Daily [place] 325 mg-5 mg oral tablet, 1 tab(s), Oral, q6hr, PRN predniSONE 50 mg Tab, 50 mg= 1 tab(s), Oral, Daily Robaxin 500 mg Tab, 500 mg= 1 tab(s), Oral, TID Follow-up With When Contact Information Santana Vidal In 3 days 09/16/2021 EDT [address] [place] [address]- [facility] (1) Additional Instructions: Take the prednisone daily until you have completed the course you can use the Robaxin, [place] as prescribed as nee (more content not included)... Normal [facility] Comment on above: Result Comment: Elec tronically Signed By: oMon Manuel DO\.br\Date and Time Signed: 09/14/21 05:27 EDT ED Patient Education Noteon 09-14-2021 ED Patient Education Note Orthopedics Back Exercises These exercises help to make your trunk and back strong. They also help to keep the lower back flexible. Doing these exercises can help to prevent back pain or lessen existing pain. ? If you have back pain, try to do these exercises 2?3 times each day or as told by your doctor. ? As you get better, do the exercises once each day. Repeat the exercises more often as told by your doctor. ? To stop back pain from coming back, do the exercises once each day, or as told by your doctor. Exercises Single knee to chest Do these steps 3?5 times in a row for each le. Lie on your back on a firm bed or the floor with your legs stretched out. 2. Bring one knee to your chest. 3. Grab your knee or thigh with both hands and hold them it in place. 4. Pull on your knee until you feel a gentle stretch in your lower back or buttocks. 5. Keep doing the stretch for 10?30 seconds. 6. Slowly let go of your leg and straighten it. Pelvic tilt Do these steps 5?10 times in a row: 1. Lie on your back on a firm bed or the floor with your legs stretched out. 2. Bend your knees so they point up to the ceiling. Your feet should be flat on the floor. 3. Tighten your lower belly (abdomen) muscles to press your lower back against the floor. This will make your tailbone point up to the ceiling instead of pointing down to your feet or the floor. 4. Stay in this position for 5?10 seconds while you gently tighten your muscles and breathe evenly. Cat?cow Do these steps until your lower back bends more easily: 1. Get on your hands and knees on a firm surface. Keep your hands under your shoulders, and keep your knees under your hips. You may put padding under your knees. 2. Let your head hang down toward your chest. Tighten (contract) the muscles in your belly. Point your tailbone toward the floor so your lower back becomes rounded like the back of a cat. 3. Stay in this position for 5 seconds. 4. Slowly lift your head. Let the muscles of your belly relax. Point your tailbone up toward the ceiling so your back forms a sagging arch like the back of a cow. 5. Stay in this position for 5 seconds. Press-ups Do these steps 5?10 times in a row: 1. Lie on your belly (face-down) on the floor. 2. Place your hands near your head, about shoulder-width apart. 3. While you keep your back relaxed and keep your hips on the floor, slowly straighten your arms to raise the top half of your body and lift your shoulders. Do not use your back muscles. You may change where you place your hands in order to make yourself more comfortable. 4. Stay in this position for 5 seconds. 5. Slowly return to lying flat on the floor. Bridges Do these steps 10 times in a row: 1. Lie on your back on a firm surface. 2. Bend your knees so they point up to the ceiling. Your feet should be flat on the floor. Your arms should be flat at your sides, next to your body. 3. Tighten your butt muscles and lift your butt off the floor until your waist is almost as high as your knees. If you do not feel the muscles working in your butt and the back of your thighs, slide your feet 1?2 inches farther away from your butt. 4. Stay in this position for 3?5 seconds. 5. Slowly lower your butt to the floor, and let your butt muscles relax. If this exercise is too easy, try doing it with your arms crossed over your chest. Belly crunches Do these steps 5?10 times in a row: 1. Lie on your back on a firm bed or the floor with your legs stretched out. 2. Bend your knees so they point up to the ceiling. Your feet should be flat on the floor. 3. Cross your arms over your chest. 4. Tip your chin a little bit toward your chest but do not bend your neck. 5. Tighten your belly muscles and slowly raise your chest just enough to lift your shoulder blades a tiny bit off of the floor. Avoid raising your body higher than that, because it can put too much stress on your low back. 6. Slowly lower your chest and your head to the floor. Back lifts Do these steps 5?10 times in a row: 1. Lie on your belly (face-down) with your arms at your sides, and rest your forehead on the floor. 2. Tighten the muscles in your legs and your butt. 3. Slowly lift your chest off of the floor while you keep your hips on the floor. Keep the back of your head in line with the curve in your back. Look at the floor while you do this. 4. Stay in this position for 3?5 seconds. 5. Slowly lower your chest and your face to the floor. Contact a doctor if: ? Your back pain gets a lot worse when you do an exercise. ? Your back pain does not get better 2 hours after you exercise. If you have any of these problems, stop doing the exercises. Do not do them again unless your doctor says it is okay. Get help right away if: ? You have sudden, very bad back pain. If this happens, stop doing the exerc (more content not included)... Normal [facility] ED Patient Summaryon 022 ED Patient Summary [place] [id number] Patient Discharge Instructions Person Information Name: HANNAH HENDRICKS Age: 31 Years Arrival Date: 09/13/2021 20:29:38 Discharge Diagnosis: Sciatica Primary Care Physician: Severiano Wallace III, DO Provider Information Primary Provider: Moon Manuel DO Advanced Early Childhood Worker:None The exam and treatment you received in the Emergency Department were for an urgent problem and are not intended as complete care. It is important that you follow up with a doctor, nurse practitioner, or physician?s primary teaching assistant for ongoing care. If your symptoms become worse or you do not improve as expected and you are unable to reach your usual health care provider, you should return to the Emergency Department. We are available 24 hours a day. HANNAH HENDRICKS has been given the following list of patient education materials, prescriptions and follow-up instructions: Follow-up Instructions: With: Address: When: Santana Young [address] [place] [id number] [facility] () In 3 days 09/16/2021 Comments: Take the prednisone daily until you have completed the course you can use the Robaxin, [place] as prescribed as needed for pain. Use lidocaine patch daily. Please follow-up with your primary care doctor and orthopedic for further evaluation management. With: Address: When: Severiano Wallace [address] [place] [address] [facility] (1) In 3 days In the event that this physician does not participate in your insurance network, please consult with your insurance company to find a nearby participating provider. Patient Education Materials: Back Exercises, Rfyf-ok-Phek A MESSAGE TO ALL PATIENTS REGARDING OPIOIDS PRESCRIPTION OPIOIDS: WHAT YOU NEED TO KNOW Prescription opioids can be used to help relieve xivrbult-zs-zvcikj pain and are often prescribed following a surgery or injury, or for certain health conditions. These medications can be an important part of the treatment but also come with serious risks. It is important to work with your healthcare provider to make sure you are getting the safest, most effective care. WHAT ARE THE RISKS AND SIDE EFFECTS OF OPIOID USE? Prescription opioids carry serious risks of addiction and overdose, especially with prolonged use. An opioid overdose, often marked by slowed breathing, can cause sudden . The use of prescription opioids can have a number of side effects as well, even when taken as directed: ? Tolerance?meaning you might need to take more of the medication for the same pain relief ? Physical dependence?meaning you have symptoms of withdrawal when a medication is stopped ? Increased sensitivity to pain ? Constipation ? Nausea, vomiting, and dry mouth ? Sleepiness and dizziness ? Confusion ? Depression ? Low levels of testosterone that can result in lower sex drive, energy, and strength ? Itching and sweating RISKS ARE GREATER WITH: ? History of drug misuse, substance use disorder, or overdose ? Mental health conditions (such as depression or anxiety) ? Sleep apnea ? Older age (65 years and older) ? Avoid alcohol while taking prescription opioids. Also, unless specifically advised by your health care provider, medications to avoid include: ? Benzodiazepines (such as Xanax or Valium) ? Muscle relaxants (such as Soma or Flexeril) ? Hypnotics (such as Ambien or Lunesta) ? Other prescription opioids KNOW YOUR OPTIONS Talk to your health care provider about ways to manage your pain that don?t involve prescription opioids. Some of these options may actually work better and have fewer risks and side effects. Options may include: ? Pain relievers such as acetaminophen, ibuprofen, and naproxen ? Some medication that are also used for depression or seizures ? Physical therapy and exercise ? Cognitive behavioral therapy, a psychological, goal-directed approach, in which patients learn how to modify physical, behavioral, and emotional triggers of pain and stress. IF YOU ARE PRESCRIBED OPIOIDS FOR PAIN: ? Never take opioids in greater amounts or more often than prescribed. ? Follow up with your primary health care provider. o Work together to create a plan on how to manage your pain. o Talk about ways to help manage your pain that don?t involve prescription opioids. o Talk about any and all concerns and side effects. ? Help prevent misuse and abuse o Never sell or share prescription opioids. o Never use another person?s prescription opioids. ? Store prescription opioids in a secure place and out of reach of others (this may include visitors, children, friends, and family). ? Safely dispose of unused prescription opioids: Find your community drug take-back program or your pharmacy mail-back program, or flush them down the to (more content not included)... [facility] RAD - Preliminary Cat Scan R eporton 09-14-2021 RAD - Preliminary Cat Scan Report [id number]# 1.00CD:127 Normal [facility] U BetaHcg Qualon 09-14-2021 HCG.beta subunit (U) [Moles/Vol] Negative Normal [facility] Comment on above: Performed By: #### [id number] #### [facility] Laboratory [address] [place] [address] Consent for Treatmenton 060 Consent for Treatment [id number]:127 Normal [facility] SEROLOGYOrdered By: Pascale Noe on 09-13-2021 HCG.beta subunit (U) [Moles/Vol] Negative Normal [facility] Vital Signs Date Time Vital Sign Value Performing Clinician Faci lity 01-11-2025 09:59-0400 Body mass index (BMI) [Ratio] 34.7 kg/m2 Dr. Thomas Salinas MD Work Phone: [facility] 01-11-2025 09:59-0400 Body weight 97.[address] Thomas owens MD Work Phone: [facility] 01-11-2025 09:59-0400 Diastolic blood pressure 75 mm[Hg] Dr. Thomas Salinas MD Work Phone: [facility] 01-11-2025 09:59-0400 Systolic blood pressure 118 mm[Hg] Dr. Thomas Salinas MD Work Phone: [facility] 12-28-2024 09:50-0400 Body height 167.[address] Thomas owens MD Work Phone: [facility] 12-28-2024 09:45-0400 Body mass index (BMI) [Ratio] 33.9 kg/m2 Dr. Thomas Salinas MD Work Phone: [facility] 12-28-2024 09:45-0400 Body weight 95.[address] Thomas owens MD Work Phone: [facility] 12-28-2024 09:45-0400 Diastolic blood pressure 72 mm[Hg] Dr. Thomas Salinas MD Work Phone: [facility] 12-28-2024 09:45-0400 Systolic blood pressure 118 mm[Hg] Dr. Thomas Salinas MD Work Phone: [facility] 12-15-2024 09:22-0400 Body height 167.[address] Thomas owens MD Work Phone: 6(161)318-634377 [place] [address] 12-15-2024 09:22-0400 Body mass index (BMI) [Ratio] 33.1 kg/m2 Dr. Thomas Salinas MD Work Phone: 3(988)932-204277 [place] [address] 12-15-2024 09:22-0400 Body weight 93.[address] Thomas owens MD Work Phone: 6(890)626-133877 [place] [address] 12-15-2024 09:22-0400 Diastolic blood pressure 69 mm[Hg] Dr. Thomas Salinas MD Work Phone: 7(250)050-434077 [place] [address] 12-15-2024 09:22-0400 Systolic blood pressure 106 mm[Hg] Dr. Thomas Salinas MD Work Phone: [facility] 12-01-2024 08:19-0400 Body height 167.[address] Thomas owens MD Work Phone: [facility] 12-01-2024 08:19-0400 Body mass index (BMI) [Ratio] 33.3 kg/m2 Dr. Thomas Salinas MD Work Phone: 6(349)113-155377 [place] [address] 12-01-2024 08:19-0400 Body weight 93.[address] Thomas owens MD Work Phone: [facility] 12-01-2024 08:19-0400 Diastolic blood pressure 70 mm[Hg] Dr. Thomas Salinas MD Work Phone: 9(864)167-719777 [place] [address] 12-01-2024 08:19-0400 Systolic blood pressure 112 mm[Hg] Dr. Thomas Salinas MD Work Phone: [facility] 11-09-2024 08:55-0400 Body height 167.[address] Thomas owens MD Work Phone: [facility] 11-09-2024 08:55-0400 Body mass index (BMI) [Ratio] 32.6 kg/m2 Dr. Thomas Salinas MD Work Phone: 0(837)881-421977 [place] [address] 11-09-2024 08:55-0400 Body weight 91.[address] Thomas owens MD Work Phone: 9(809)269-726577 [place] [address] 11-09-2024 08:55-0400 Diastolic blood pressure 71 mm[Hg] Dr. Thomas Salinas MD Work Phone: 4(420)213-102377 [place] [address] 11-09-2024 08:55-0400 Systolic blood pressure 104 mm[Hg] Dr. Thomas Salinas MD Work Phone: 0(056)179-688577 [place] [address] 10-12-2024 15:54-0400 Body height 167.[address] Thomas owens MD Work Phone: 1(041)291-445977 [place] [address] 10-12-2024 15:54-0400 Body mass index (BMI) [Ratio] 31.5 kg/m2 Dr. Thomas Salinas MD Work Phone: [facility] 10-12-2024 15:54-0400 Body weight 88.[address] Thomas owens MD Work Phone: 8(596)389-916077 [place] [address] 10-12-2024 15:54-0400 Diastolic blood pressure 75 mm[Hg] Dr. Thomas Salinas MD Work Phone: [facility] 10-12-2024 15:54-0400 Systolic blood pressure 119 mm[Hg] Dr. Thomas Salinas MD Work Phone: [facility] 09-14-2024 08:59-0400 Body height 167.[address] Thomas owens MD Work Phone: [facility] 09-14-2024 08:59-0400 Body mass index (BMI) [Ratio] 30.7 kg/m2 Dr. Thomas Salinas MD Work Phone: [facility] 09-14-2024 08:59-0400 Body weight 86.[address] Thomas owens MD Work Phone: [facility] 09-14-2024 08:59-0400 Diastolic blood pressure 71 mm[Hg] Dr. Thomas Salinas MD Work Phone: [facility] 09-14-2024 08:59-0400 Systolic blood pressure 106 mm[Hg] Dr. Thomas Salinas MD Work Phone: [facility] 08-17-2024 08:32-0400 Body mass index (BMI) [Ratio] 29.7 kg/m2 Dr. Thomas Salinas MD Work Phone: [facility] 08-17-2024 08:32-0400 Body weight 83.[address] Thomas owens MD Work Phone: [facility] 08-17-2024 08:32-0400 Diastolic blood pressure 68 mm[Hg] Dr. Thomas Salinas MD Work Phone: [facility] 08-17-2024 08:32-0400 Systolic blood pressure 104 mm[Hg] Dr. Thomas Salinas MD Work Phone: [facility] 08-05-2024 09:52-0400 Body mass index (BMI) [Ratio] 29.5 kg/m2 Dr. Thomas Salinas MD Work Phone: [facility] 08-05-2024 09:52-0400 Body weight [address] Thomas owens MD Work Phone: [facility] 08-05-2024 09:52-0400 Diastolic blood pressure 78 mm[Hg] Dr. Thomas Salinas MD Work Phone: [facility] 08-05-2024 09:52-0400 Systolic blood pressure 126 mm[Hg] Dr. Thomas Salinas MD Work Phone: [facility] 07-20-2024 13:59-0400 Body height 167.[address] Royce Chapin DO Work Phone: [facility] 07-20-2024 13:58-0400 Body mass index (BMI) [Ratio] 29.4 kg/m2 Dr. Royce Chapin DO Work Phone: 4(595)546-904968 [place] [address] 07-20-2024 13:58-0400 Body weight 82.[address] Royce Chapin DO Work Phone: 8(971)179-431868 [place] [address] 07-20-2024 13:58-0400 Diastolic blood pressure 79 mm[Hg] Dr. Royce Chapin DO Work Phone: [facility] 07-20-2024 13:58-0400 Systolic blood pressure 117 mm[Hg] Dr. Royce Chapin DO Work Phone: [facility] 04-14-2024 14:22-0500 Body height 167.[address] Royce Chapin DO Work Phone: 1(131)771-754468 [place] [address] 04-14-2024 14:19-0500 Body mass index (BMI) [Ratio] 28.8 kg/m2 Dr. Royce Chapin DO Work Phone: 1(977)323-376968 [place] [address] 04-14-2024 14:19-0500 Body weight 80.[address] Royce Chapin DO Work Phone: 0(438)417-722768 [place] [address] 04-14-2024 14:19-0500 Diastolic blood pressure 78 mm[Hg] Dr. Royce Chapin DO Work Phone: 9(881)337-909668 [place] [address] 04-14-2024 14:19-0500 Systolic blood pressure 114 mm[Hg] Dr. Royce Chapin DO Work Phone: [facility] 04-01-2024 20:00-0500 Body temperature 98 [degF] Dr. Royce Chapin DO Work Phone: [facility] 04-01-2024 20:00-0500 Diastolic blood pressure 68 mm[Hg] Dr. Royce Chapin DO Work Phone: [facility] 04-01-2024 20:00-0500 Heart rate 79 /min Dr. Royce Chapin DO Work Phone: [facility] 04-01-2024 20:00-0500 Respiratory rate 18 /min Dr. Royce Chapin DO Work Phone: 8(524)585-781568 [place] [address] 04-01-2024 20:00-0500 SaO2% (BldA) [Mass fraction] 100 % Dr. Royce Chapin DO Work Phone: [facility] 04-01-2024 20:00-0500 Systolic blood pressure 112 mm[Hg] Dr. Royce Chapin DO Work Phone: [facility] 04-01-2024 16:16-0500 Body mass index (BMI) [Ratio] 29.2 kg/m2 Dr. Royce Chapin DO Work Phone: [facility] 04-01-2024 16:16-0500 Body weight 82.[address] Royce Chapin DO Work Phone: [facility] 07-27-2023 11:28-0400 Body temperature 97.7 [degF] Diana Kus HEEL REDUCER.RESERVATIONS CLERK Work Phone: [facility] 07-27-2023 11:28-0400 Body weight 73.03 kg Diana Kus HEEL REDUCER.RESERVATIONS CLERK Work Phone: [facility] 07-27-2023 11:28-0400 Diastolic blood pressure 69 mm[Hg] Diana Kus HEEL REDUCER.RESERVATIONS CLERK Work Phone: [facility] 07-27-2023 11:28-0400 Heart rate 98 /min Diana Kus HEEL REDUCER.RESERVATIONS CLERK Work Phone: [facility] 07-27-2023 11:28-0400 Respiratory rate 18 /min Diana Reids HEEL REDUCER.RESERVATIONS CLERK Work Phone: [facility] 07-27-2023 11:28-0400 Systolic blood pressure 117 mm[Hg] Diana Trejo HEEL REDUCER.RESERVATIONS CLERK Work Phone: [facility] 02-06-2023 08:40-0400 Body height 165.1 cm Konstantin Kirkland MD Work Phone: [facility] 02-06-2023 08:40-0400 Body weight 73.94 kg Konstantin Kirkland MD Work Phone: [facility] 02-06-2023 08:40-0400 Diastolic blood pressure 73 mm[Hg] Konstantin Kirkland MD Work Phone: [facility] 02-06-2023 08:40-0400 Heart rate 101 /min Konstantin Kirkland MD Work Phone: [facility] 02-06-2023 08:40-0400 SaO2% (BldA) [Mass fraction] 100 % Konstantin Kirkland MD Work Phone: [facility] 02-06-2023 08:40-0400 Systolic blood pressure 106 mm[Hg] Konstantin Kirkland MD Work Phone: [facility] 04-04-2022 13:49-0500 Body temperature 98.1 [degF] Konstantin Kirkland MD Work Phone: [facility] 04-04-2022 13:49-0500 Body weight 77.56 kg Konstantin Kirkland MD Work Phone: [facility] 04-04-2022 13:49-0500 Diastolic blood pressure 71 mm[Hg] Konstantin Kirkland MD Work Phone: [facility] 04-04-2022 13:49-0500 Heart rate 82 /min Konstantin Kirkland MD Work Phone: [facility] 04-04-2022 13:49-0500 SaO2% (BldA) [Mass fraction] 100 % Konstantin Kirkland MD Work Phone: [facility] 04-04-2022 13:49-0500 Systolic blood pressure 124 mm[Hg] Konstantin Kirkland MD Work Phone: [facility] 03-19-2022 13:09-0500 Body height 165.1 cm Pacc 3 Work Phone: [facility] 03-19-2022 13:09-0500 Body temperature 97.9 [degF] Pacc 3 Work Phone: [facility] 03-19-2022 13:09-0500 Body weight 77.56 kg Pacc 3 Work Phone: [facility] 03-19-2022 13:09-0500 Diastolic blood pressure 73 mm[Hg] Pacc 3 Work Phone: [facility] 03-19-2022 13:09-0500 Heart rate 65 /min Pacc 3 Work Phone: [facility] 03-19-2022 13:09-0500 Respiratory rate 16 /min Pacc 3 Work Phone: [facility] 03-19-2022 13:09-0500 SaO2% (BldA) [Mass fraction] 97 % Pacc 3 Work Phone: [facility] 03-19-2022 13:09-0500 Systolic blood pressure 111 mm[Hg] Pacc 3 Work Phone: [facility] 03-05-2022 08:55-0500 Body height 165.1 cm Konstantin Kirkland MD Work Phone: [facility] 03-05-2022 08:55-0500 Body weight 81.06 kg Konstantin Kirkland MD Work Phone: [facility] 03-05-2022 08:55-0500 Diastolic blood pressure 78 mm[Hg] Konstantin Kirkland MD Work Phone: [facility] 03-05-2022 08:55-0500 Heart rate 96 /min Konstantin Kirkland MD Work Phone: [facility] 03-05-2022 08:55-0500 SaO2% (BldA) [Mass fraction] 98 % Konstantin Kirkland MD Work Phone: [facility] 03-05-2022 08:55-0500 Systolic blood pressure 118 mm[Hg] Konstantin Kirkland MD Work Phone: [facility] 02-05-2022 11:14-0400 Body height 165.1 cm Konstantin Kirkland MD Work Phone: [facility] 02-05-2022 11:14-0400 Body temperature 98.4 [degF] Konstantin Kirkland MD Work Phone: [facility] 02-05-2022 11:14-0400 Body weight 79.74 kg Konstantin Kirkland MD Work Phone: [facility] 02-05-2022 11:14-0400 Diastolic blood pressure 78 mm[Hg] Konstantin Kirkland MD Work Phone: [facility] 02-05-2022 11:14-0400 Heart rate 94 /min Konstantin Kirkland MD Work Phone: [facility] 02-05-2022 11:14-0400 Systolic blood pressure 131 mm[Hg] Konstantin Kirkland MD Work Phone: [facility] 12-06-2021 13:52-0400 Body height 165.1 cm Pacc 3 Work Phone: [facility] 12-06-2021 13:52-0400 Body temperature 97.3 [degF] Pacc 3 Work Phone: [facility] 12-06-2021 13:52-0400 Body weight 79.02 kg Pacc 3 Work Phone: [facility] 12-06-2021 13:52-0400 Diastolic blood pressure 76 mm[Hg] Pacc 3 Work Phone: [facility] 12-06-2021 13:52-0400 Heart rate 73 /min Pacc 3 Work Phone: [facility] 12-06-2021 13:52-0400 Respiratory rate 16 /min Pacc 3 Work Phone: [facility] 12-06-2021 13:52-0400 SaO2% (BldA) [Mass fraction] 100 % Pacc 3 Work Phone: [facility] 12-06-2021 13:52-0400 Systolic blood pressure 111 mm[Hg] Pacc 3 Work Phone: [facility] 12-04-2021 14:12-0400 Body height 165.1 cm Konstantin Kirkland MD Work Phone: [facility] 12-04-2021 14:12-0400 Body temperature 97.59 [degF] Konstantin Kirkland MD Work Phone: [facility] 12-04-2021 14:12-0400 Body weight 79.2 kg Konstantin Kirkland MD Work Phone: [facility] 12-04-2021 14:12-0400 Diastolic blood pressure 75 mm[Hg] Konstantin Kirkland MD Work Phone: [facility] 12-04-2021 14:12-0400 Heart rate 67 /min Konstantin Kirkland MD Work Phone: [facility] 12-04-2021 14:12-0400 Systolic blood pressure 119 mm[Hg] Konstantin Kirkland MD Work Phone: [facility] 10-11-2021 09:30-0400 Body height 165.1 cm Feng Wright MD Work Phone: [facility] 10-11-2021 09:30-0400 Body weight 77.97 kg Feng Wright MD Work Phone: [facility] 10-11-2021 09:30-0400 Heart rate 106 /min Feng Wright MD Work Phone: [facility] 10-11-2021 09:30-0400 SaO2% (BldA) [Mass fraction] 98 % Feng Wright MD Work Phone: [facility] 09-19-2021 11:31-0400 Body height 166.4 cm Yana Ziol HEEL REDUCER.RESERVATIONS CLERK Work Phone: [facility] 09-19-2021 11:31-0400 Body temperature 97.9 [degF] Yana Ziol HEEL REDUCER.RESERVATIONS CLERK Work Phone: [facility] 09-19-2021 11:31-0400 Body weight 78.47 kg Yana Ziol HEEL REDUCER.RESERVATIONS CLERK Work Phone: [facility] 09-19-2021 11:31-0400 Diastolic blood pressure 80 mm[Hg] Yana Ziol HEEL REDUCER.RESERVATIONS CLERK Work Phone: [facility] 09-19-2021 11:31-0400 Systolic blood pressure 122 mm[Hg] Yana Ziol HEEL REDUCER.RESERVATIONS CLERK Work Phone: [facility] 09-13-2021 23:55-0400 Body temperature 98.24 [degF] Kaylinn Dokken [facility] 09-13-2021 23:55-0400 Diastolic blood pressure 70 mm[Hg] Kaylinn Dokken [facility] 09-13-2021 23:55-0400 Heart rate 70 /min Kaylinn Dokken [facility] 09-13-2021 23:55-0400 Mean blood pressure 90 mm[Hg] Kaylinn Dokken [facility] 09-13-2021 23:55-0400 Respiratory rate 17 /min Kaylinn Dokken [facility] 09-13-2021 23:55-0400 SaO2% (BldA) [Mass fraction] 99 % Kaylinn Dokken [facility] 09-13-2021 23:55-0400 Systolic blood pressure 130 mm[Hg] Kaylinn Dokken [facility] 09-13-2021 20:33-0400 Body temperature 98.06 [degF] Kaylinn Dokken [facility] 09-13-2021 20:33-0400 Diastolic blood pressure 90 mm[Hg] Kaylinn Dokken [facility] 09-13-2021 20:33-0400 Heart rate 110 /min Altheaylinn Dokken [facility] 09-13-2021 20:33-0400 Respiratory rate 15 /min Kristianinn Dokken [facility] 09-13-2021 20:33-0400 SaO2% (BldA) [Mass fraction] 98 % Altheaylinn Dokken [facility] 09-13-2021 20:33-0400 Systolic blood pressure 135 mm[Hg] nancyinn Dokken [facility] Encounters Encounter Date Encounter Type Care Provider Facility Start: 02-01-2025 ambulatory Ximena Mcghee Facility :[facility] Start: 01-26-2025 End: 01-26-2025 ambulatory Isabel Marino Facility:[facility] Start: 01-11-2025 End: 01-11-2025 Patient encounter procedure Ximena Mcghee [facility] Work Phone: Start: 01-11-2025 End: 01-11-[address] Thomas Salinas MD Work Phone: [facility] Start: 12-28-2024 End: 12-28-2024 Patient encounter procedure Barbie ESCOBAR -[facility] Work Phone: Start: 12-28-2024 End: 12-28-[address] Thomas Salinas MD Work Phone: [facility] Start: 12-15-2024 End: 12-15-[address] Maryann Bajwa DO -[facility] Work Phone: Start: 12-15-2024 End: 12-15-[address] Thomas Salinas MD Work Phone: [facility] Start: 12-01-2024 End: 12-01-2024 Patient encounter procedure Barbie ESCOBAR -[facility] Work Phone: Start: 12-01-2024 End: 12-01-[address] Thomas Salinas MD Work Phone: [facility] Start: 12-01-2024 End: 12-01-2024 ambulatory Ximena Mcghee Facility:[facility] Start: 11-09-2024 End: 11-09-2024 Patient encounter procedure Ximena Mcghee [facility] Work Phone: Start: 11-09-2024 End: 11-09-[address] Thomas Salinas MD Work Phone: [facility] Start: 10-12-2024 End: 10-12-[address] Isabel Marino MD -[facility] Work Phone: Start: 10-12-2024 End: 10-12-[address] Thomas Salinas MD Work Phone: [facility] Start: 10-08-2024 End: 10-08-[address] Thomas Salinas MD Work Phone: -Lab [facility] Start: 10-08-2024 End: 10-08-[address] Isabel Marino MD -Lab [facility] Start: 10-08-2024 End: 10-08-2024 ambulatory THOMAS SALINAS [facility] Start: 10-08-2024 End: 10-08-2024 ambulatory Isabel Marino Facility:[facility] Start: 09-14-2024 End: 09-14-2024 Patient encounter procedure Ximena Juan COBBM -[facility] Work Phone: Start: 09-14-2024 End: 09-14-[address] Thomas Salinas MD Work Phone: [facility] Work Phone: Start: 08-17-2024 End: 08-17-2024 Patient encounter procedure Barbie Macon BIOCHEMICAL ENGINEER-C -[facility] Work Phone: Start: 08-17-2024 End: 08-17-2024 ambulatory Barbie Macon BIOCHEMICAL ENGINEER Facility:[facility] Start: 08-05-2024 End: 08-05-2024 Patient encounter procedure Barbie Yanestings BIOCHEMICAL ENGINEER-C -[facility] Work Phone: Start: 08-05-2024 End: 08-05-2024 ambulatory Barbie Paula BIOCHEMICAL ENGINEER Facility:[facility] Start: 07-31-2024 End: 07-31-[address] Maryann Bajwa DO -[facility] Start: 07-31-2024 End: 07-31-2024 ambulatory Maryann Bajwa Facility:[facility] Start: 07-20-2024 End: 07-20-[address] Royce Chapin DO Work Phone: [facility] Work Phone: Start: 07-20-2024 End: 07-20-[address] Maryann Bajwa DO -Laboratory, Specimen Work Phone: Start: 07-20-2024 End: 07-20-[address] Maryann Bajwa DO -[facility] Work Phone: Start: 07-20-2024 End: 07-20-2024 ambulatory Maryann Bajwa Facility:[facility] Start: 07-20-2024 End: 07-20-2024 ambulatory Maryann Bajwa Facility:[facility] Start: 07-03-2024 Non-patient / Non-visit Renay gu RN -[facility] Work Phone: Start: 07-03-2024 ambulatory Renay Larose Facility :[facility] Start: 07-02-2024 End: 07-02-[address] Royce Chapin DO Work Phone: [facility] Work Phone: Start: 07-02-2024 End: 07-02-[address] Maryann Bajwa DO -Ultrasound, [facility] Work Phone: Start: 07-02-2024 End: 07-02-2024 ambulatory Maryann Bajwa Facility:[facility] Start: 06-27-2024 End: 06-27-[address] Royce Chapin DO Work Phone: [facility] Work Phone: Start: 06-27-2024 End: 06-27-[address] Maryann Bajwa DO -Laboratory Work Phone: Start: 06-27-2024 End: 06-27-2024 ambulatory Maryann Bajwa Facility:[facility] Start: 06-25-2024 End: 06-25-[address] Royce Chapin DO Work Phone: [facility] Work Phone: Start: 06-25-2024 End: 06-25-[address] Maryann Richards, [facility] Work Phone: Start: 06-25-2024 End: 06-25-[address] Royce Chapin DO Work Phone: [facility] Work Phone: Start: 06-25-2024 End: 06-25-[address] Maryann DEVILab, [facility] Start: 06-25-2024 End: 06-25-2024 ambulatory Maryann Bajwa Facility:[facility] Start: 06-18-2024 End: 06-18-[address] Royce Chapin DO Work Phone: [facility] Work Phone: Start: 06-18-2024 End: 06-18-[address] Maryann DEVILab, [facility] Start: 06-18-2024 End: 06-18-2024 ambulatory Maryann Bajwa Facility:[facility] Start: 06-16-2024 End: 06-16-[address] Royce Chapin DO Work Phone: [facility] Work Phone: Start: 06-16-2024 End: 06-16-[address] Maryann López, [facility] Start: 06-16-2024 End: 06-16-2024 ambulatory Maryann Bajwa Facility:[facility] Start: 04-14-2024 End: 04-14-2024 Patient encounter procedure Barbie Mitchell BIOCHEMICAL ENGINEER-C -[facility] Work Phone: Start: 04-14-2024 End: 04-14-2024 ambulatory Barbie Mitchell BIOCHEMICAL ENGINEER Facility:[facility] Start: 04-14-2024 End: 04-14-2024 ambulatory Barbie Mitchell BIOCHEMICAL ENGINEER Facility:[facility] Start: 04-06-2024 End: 04-06-[address] Isabel Marino MD -Lab, [facility] Start: 04-06-2024 End: 04-06-2024 ambulatory Isabel Marino Facility:[facility] Start: 04-03-2024 End: 04-03-[address] Isabel Marino MD -Lab, [facility] Start: 04-03-2024 End: 04-03-2024 ambulatory Isabel Marino Facility:[facility] Start: 04-01-2024 End: 04-01-2024 Emergency department patient visit Dr. Royce Chapin DO -Emergency Department Work Phone: Start: 07-29-2023 End: 07-29-2023 ambulatory THOMAS Dayne BRAD Facility:[facility] Start: 07-27-2023 End: 07-27-2023 [facility] Start: 07-27-2023 End: 07-27-2023 Office outpatient visit 15 minutes Diana Trejo APRN.CNP Work Phone: [facility] Comment on above: Diarrhea, unspecifie d type (Primary Dx) Start: 05-16-2023 End: 05-16-2023 Emergency department patient visit THOMAS F BRAD Facility:[facility] Start: 03-02-2023 ambulatory THOMAS F BRAD Fa cility:[facility] Start: 03-02-2023 End: 03-02-2023 Subsequent hospital visit by physician Mri [facility] (1.5t) Radiology Comment on above: Spinal stenosis of l umbar region with neurogenic claudication [M48.062] Start: 02-06-2023 End: 02-06-2023 ambulatory THOMAS F BRAD Facility:[facility] Start: 02-06-2023 End: 02-06-2023 Patient encounter procedure Konstantin Kirkland MD Work Phone: Neurosurgery Comment on above: Radiculopathy, lumba r region (Primary Dx); Spinal stenosis of lumbar region with neurogenic claudication Start: 12-31-2022 End: 12-31-2022 ambulatory Nehemias Suarez PT, DPT Work Phone: [facility] Comment on above: Chronic bilateral lo w back pain with right-sided sciatica (Primary Dx) Start: 11-28-2022 End: 11-28-2022 ambulatory Nehemias Suarez PT, DPT Work Phone: [facility] Comment on above: Chronic bilateral lo w back pain with right-sided sciatica (Primary Dx) Start: 10-24-2022 End: 10-25-2022 ambulatory THOMAS F BRYANTETTER Facility:[facility] Start: 09-12-2022 End: 09-13-2022 ambulatory THOMAS F BRYANTETTNIKO Facility:[facility] Start: 09-12-2022 End: 09-13-2022 ambulatory Nehemias Suarez PT, DPT Work Phone: [facility] Comment on above: Chronic bilateral lo w back pain with right-sided sciatica (Primary Dx) Start: 08-29-2022 End: 08-30-2022 ambulatory THOMAS F BRYANTETTER Facility:[facility] Start: 08-27-2022 ambulatory Konstantin Kirkland MD Work Phone: [facility] Start: 08-27-2022 Letter encounter Konstantin post MD Work Phone: [facility] Comment on above: Jury Duty Letter Start: 08-15-2022 End: 08-16-2022 ambulatory Nehemias Suarez PT, DPT Work Phone: [facility] Comment on above: Chronic bilateral lo w back pain with right-sided sciatica (Primary Dx) Start: 07-30-2022 End: 07-30-2022 ambulatory Konstantin Kirkland MD Work Phone: [facility] Comment on above: Radiculopathy, lumba r region (Primary Dx) Start: 07-30-2022 End: 07-30-2022 Telemedicine consultation with patient Konstantin Kirkland MD Work Phone: [facility] Start: 07-16-2022 End: 07-16-2022 ambulatory THOMAS SALINAS Facility:[facility] Start: 07-16-2022 End: 07-16-2022 ambulatory Nehemias Suarez PT, DPT Work Phone: [facility] Comment on above: Chronic bilateral lo w back pain with right-sided sciatica (Primary Dx) Start: 07-11-2022 End: 07-11-2022 ambulatory [facility] Work Phone: Start: 07-11-2022 End: 07-11-2022 Patient encounter procedure [facility]-Ultrasound, [facility] Start: 07-09-2022 End: 07-09-2022 ambulatory NEHEMIAS SUAREZ Facility:[facility] Start: 07-09-2022 End: 07-09-2022 ambulatory Nehemias Suarez PT, DPT Work Phone: [facility] Comment on above: Chronic bilateral lo w back pain with right-sided sciatica (Primary Dx) Start: 07-02-2022 End: 07-02-2022 ambulatory KONSTANTIN KIRKLAND Facility:[facility] Start: 06-25-2022 End: 06-25-2022 ambulatory NEHEMIAS SUAREZ Facility:[facility] Start: 06-25-2022 End: 06-25-2022 ambulatory Nehemias Suarez PT, DPT Work Phone: [facility] Comment on above: Chronic bilateral lo w back pain with right-sided sciatica (Primary Dx) Start: 06-18-2022 End: 06-18-2022 ambulatory NEHEMIAS SUAREZ Facility:[facility] Start: 06-11-2022 End: 06-11-2022 ambulatory KONSTANTIN HABROCCO Facility:[facility] Start: 06-11-2022 End: 06-11-2022 ambulatory Juliano Urias [facility] Comment on above: Chronic bilateral lo w back pain with right-sided sciatica (Primary Dx) Start: 06-04-2022 End: 06-04-2022 ambulatory THOMAS SALINAS Facility:[facility] Start: 05-30-2022 End: 05-30-2022 ambulatory THOMAS SALINAS Facility:[facility] Start: 05-30-2022 End: 05-30-2022 ambulatory Nehemias Suarez PT, DPT Work Phone: [facility] Comment on above: Chronic bilateral lo w back pain with right-sided sciatica (Primary Dx) Start: 05-28-2022 End: 05-28-2022 ambulatory THOMAS F BRAD Facility:[facility] Start: 05-21-2022 End: 05-21-2022 ambulatory THOMAS F AVIVA Facility:[facility] Start: 05-21-2022 End: 05-21-2022 ambulatory Nehemias Suarez PT, DPT Work Phone: [facility] Comment on above: Chronic bilateral lo w back pain with right-sided sciatica (Primary Dx) Start: 05-07-2022 End: 05-07-2022 ambulatory [facility] Comment on above: Chronic bilateral lo w back pain with right-sided sciatica (Primary Dx) Tail bone pain Start: 05-07-2022 Letter encounter Konstantin post MD Work Phone: Neurosurgery Comment on above: [employer] letter Start: 04-30-2022 End: 04-30-2022 ambulatory [facility] Comment on above: Chronic bilateral lo w back pain with right-sided sciatica (Primary Dx) Start: 04-25-2022 End: 04-25-2022 ambulatory THOMAS Dayne BRAD Facility:[facility] Start: 04-25-2022 End: 04-25-2022 ambulatory Konstantin Kirkland MD Work Phone: Neurosurgery Comment on above: Radiculopathy, lumba r region (Primary Dx) Start: 04-25-2022 End: 04-25-2022 Telemedicine consultation with patient Konstantin Kirkland MD Work Phone: [facility] Start: 04-20-2022 End: 04-20-2022 ambulatory Nehemias Suarez PT, DPT Work Phone: [facility] Comment on above: Radiculopathy, lumba r region; Chronic bilateral low back pain with right-sided sciatica Start: 04-04-2022 End: 04-04-2022 ambulatory THOMAS SALINAS Facility:[facility] Start: 04-04-2022 End: 04-04-2022 Patient encounter procedure Konstantin Kirkland MD Work Phone: Neurosurgery Comment on above: Radiculopathy, lumba r region (Primary Dx) Start: 03-29-2022 Telephone encounter Konstantin shaw MD Work Phone: Neurology Comment on above: Post Op Symptoms Start: 03-21-2022 ambulatory Konstantin Kirkland MD Work Phone: [facility] Comment on above: [employer] disibility paperwork Start: 03-20-2022 End: 03-20-2022 ambulatory KONSTANTIN KIRKLAND Facility:[facility] Start: 03-19-2022 [facility] Start: 03-19-2022 End: 03-19-2022 Admission to establishment [place] [id number] Work Phone: [facility] Start: 03-19-2022 End: 03-20-[address] [facility] [address] Comment on above: Pre-op evaluation (P rimary Dx); Pre-op testing; Electronic cigarette use Start: 03-19-2022 End: 03-19-2022 Patient encounter status Pac 3 Work Phone: Pre Anesthesia Start: 03-19-2022 End: 03-19-2022 Preprocedural examination done Pac 3 Work Phone: Pre Anesthesia Start: 03-16-2022 ambulatory Konstantin Kirkland MD Work Phone: Neurosurgery Start: 03-16-2022 Patient encounter status Konstantin Kirkland MD Work Phone: Neurosurgery Start: 03-16-2022 Telephone encounter Konstantin shaw MD Work Phone: Neurology Comment on above: MRI results Start: 03-16-2022 End: 03-16-2022 Subsequent hospital visit by physician [facility] (1.5t) Radiology Comment on above: Spinal stenosis of l umbar region with neurogenic claudication [M48.062] Start: 03-14-2022 Refill Konstantin Kirkland MD Work Phone: Neurosurgery Comment on above: Refill Request Start: 03-12-2022 Telephone encounter Konstantin shaw MD Work Phone: Neurology Comment on above: Orders Start: 03-11-2022 ambulatory Ximena OLVERA E SALES AND SERVICE ADVISOR Comment on above: Back Pain Start: 03-05-2022 End: 03-05-2022 Patient encounter procedure Konstantin Kirkland MD Work Phone: [facility] Comment on above: Lumbar radiculopathy (Primary Dx) Start: 02-19-2022 Telephone encounter Konstantin shaw MD Work Phone: Neurology Comment on above: Medication Problem Start: 02-08-2022 ambulatory Konstantin Kirkland MD Work Phone: [facility] Start: 02-08-2022 Letter encounter Konstantin post MD Work Phone: Neurosurgery Comment on above: [employer] letter & Drs Notes Start: 02-05-2022 Telephone encounter Konstantin shaw MD Work Phone: Neurosurgery Comment on above: Forms Start: 02-05-2022 End: 02-05-2022 Patient encounter procedure Konstantin Kirkland MD Work Phone: Neurosurgery Comment on above: Lumbar herniated dis c (Primary Dx) Start: 01-31-2022 Telephone encounter Konstantin shaw MD Work Phone: Neurology Comment on above: Leg Pain Start: 01-22-2022 ambulatory Konstantin Kirkland MD Work Phone: Neurosurgery Comment on above: Return to work note Start: 01-19-2022 ambulatory Konstantin Kirkland MD Work Phone: Neurosurgery Comment on above: Back Pain Start: 12-20-2021 Telephone encounter Konstantin shaw MD Work Phone: Neurology Comment on above: Patient Question Start: 12-19-2021 End: 12-19-2021 ambulatory KONSTANTIN KIRKLAND Facility:[facility] Start: 12-10-2021 ambulatory Ashwini OLIVERRESERVATIONS CLERK Work Phone: Pain Management Comment on above: Gabapentin and Robax in Start: 12-07-2021 Telephone encounter Konstantin shaw MD Work Phone: Neurology Comment on above: Insurance Authorizat ion (Clinicals needed for P.A. for surgery) Start: 12-06-2021 End: 12-06-2021 Admission to establishment [facility] 3 Work Phone: [place] Start: 12-06-2021 End: 12-06-2021 [facility] 3 Work Phone: Pre Anesthesia Comment on above: Pre-op evaluation (P rimary Dx); Lumbar disc herniation; Known health problems: none Start: 12-06-2021 End: 12-06-2021 Preprocedural examination done [facility] 3 Work Phone: Pre Anesthesia Start: 12-05-2021 ambulatory Konstantin Kirkland MD Work Phone: Neurosurgery Start: 12-05-2021 Patient encounter status Konstantin Kirkland MD Work Phone: Neurosurgery Start: 12-04-2021 End: 12-04-2021 Patient encounter procedure Konstantin Kirkland MD Work Phone: Neurosurgery Comment on above: Radiculopathy, lumba r region (Primary Dx) Start: 12-04-2021 End: 12-04-2021 ambulatory Ashwini Cadet APRN.RESERVATIONS CLERK Work Phone: Pain Management Comment on above: Lumbar disc herniati on (Primary Dx); Radiculopathy, lumbar region Start: 12-04-2021 E-mail encounter fro m caregiver Yana Ballard HEEL REDUCER.RESERVATIONS CLERK Work Phone: [facility] Start: 12-04-2021 End: 12-04-2021 Telemedicine consultation with patient Ashwini Schreiberle HEEL REDUCER.RESERVATIONS CLERK Work Phone: [facility] Start: 12-03-2021 ambulatory Yana E Ziol A PRN.RESERVATIONS CLERK Work Phone: [facility] Comment on above: Potassium Start: 11-23-2021 Telephone encounter Ashwini Schreiberbennett Ashby n Management Comment on above: STD Paperwork (Recei velma 11/23) Start: 11-22-2021 End: 11-22-2021 ambulatory Ashwini Lopez Cadet HEEL REDUCER.RESERVATIONS CLERK Work Phone: Pain Management Comment on above: Lumbar disc herniati on (Primary Dx); Radiculopathy, lumbar region Start: 11-22-2021 End: 11-22-2021 Telemedicine consultation with patient Ashwini Schreiberle HEEL REDUCER.RESERVATIONS CLERK Work Phone: [facility] Start: 11-16-2021 End: 11-16-2021 ambulatory Yana E Ziol HEEL REDUCER.RESERVATIONS CLERK Work Phone: [facility] Comment on above: ER Visit Lumbar disc herniati on (Primary Dx); Radiculopathy, lumbar region Start: 11-16-2021 Telephone encounter Ashwini Lopez Abdoul guajardo APRN.RESERVATIONS CLERK Work Phone: Pain Management Comment on above: Patient Update Start: 11-16-2021 End: 11-16-2021 Telemedicine consultation with patient Ashwini Schreiberle HEEL REDUCER.RESERVATIONS CLERK Work Phone: [facility] Start: 11-15-2021 End: 11-15-2021 ambulatory Dulce Wong HEEL REDUCER.RESERVATIONS CLERK Work Phone: Telemedicine Comment on above: Treatment not availa ble (Primary Dx) Start: 11-15-2021 End: 11-15-2021 Telemedicine consultation with patient Dulce Wong HEEL REDUCER.RESERVATIONS CLERK Work Phone: [facility] Start: 11-04-2021 Refill Yana E Ziol A PRN.RESERVATIONS CLERK Work Phone: [facility] Comment on above: Refill Request Start: 11-02-2021 MC Get Medical Advice Yana Ballard HEEL REDUCER.RESERVATIONS CLERK Work Phone: [facility] Comment on above: Muscle Relaxer Refil l Start: 10-11-2021 End: 10-11-2021 Patient encounter procedure Feng Wright MD Work Phone: Pain Management Comment on above: Radiculopathy, lumba r region (Primary Dx); Lumbar disc herniation Lumbar disc herniati on (Primary Dx); Radiculopathy, lumbar region Start: 10-06-2021 ambulatory Yana E Jumaol A PRN.RESERVATIONS CLERK Work Phone: [facility] Comment on above: MRI Start: 10-06-2021 Telephone encounter Yana sánchez APRN.RESERVATIONS CLERK Work Phone: [facility] Comment on above: Results (MRI) Refill Request Start: 10-05-2021 End: 10-05-2021 Subsequent hospital visit by physician [facility] (1.5t) Radiology Comment on above: Spinal stenosis of l umbar region without neurogenic claudication [M48.061] Start: 09-23-2021 ambulatory Yana Ballard A PRN.RESERVATIONS CLERK Work Phone: [facility] Comment on above: Chiropractor Start: 09-19-2021 End: 09-19-2021 Patient encounter procedure Yana Ballard HEEL REDUCER.RESERVATIONS CLERK Work Phone: [facility] Comment on above: Spinal stenosis of l umbar region without neurogenic claudication Start: 09-13-2021 End: 09-13-2021 Emergency department patient visit [facility] Procedures Date Procedure Procedure Detail Performing Clinician Start: 12-01-2024 Serologic test for syphilis Dr. Thomas Salinas MD Work Phone: Start: 10-08-[address] Thomas paula MD Work Phone: Comment on above: Test Ordered: [id number] AFP, Serum, Open Spina BifidaResults BIOCHEMICAL ENGINEER NOLAB Reference Range: .Test Results: TG Reference Range: .Please refer to the following specimen for additional labresults.Please refer to [phone] for results.Gest. Age on Collection Date BIOCHEMICAL ENGINEER NOLAB Reference Range: .Gestat. Age Based On BIOCHEMICAL ENGINEER NOLAB Reference Range: .Maternal Age At BALAJI BIOCHEMICAL ENGINEER NOLAB Reference Range: .Race BIOCHEMICAL ENGINEER NOLAB Reference Range: .Weight BIOCHEMICAL ENGINEER NOLAB Reference Range: .Insulin Dep Diabetes BIOCHEMICAL ENGINEER NOLAB Reference Range: .Multiple Gestation BIOCHEMICAL ENGINEER NOLAB Reference Range: .AFP Value NOLAB Reference Range: .Test not performedAFP MoM BIOCHEMICAL ENGINEER NOLAB Reference Range: .OSBR Risk 1 IN BIOCHEMICAL ENGINEER NOLAB Reference Range: .Interpretation BIOCHEMICAL ENGINEER NOLAB Reference Range: .Comment: BIOCHEMICAL ENGINEER NOLAB Reference Range: .Tracking BIOCHEMICAL ENGINEER NOLAB Reference Range: .Performed at: - [facility] [address] [id number] Director: Norm Gonzáles PhD, Phone: [phone] at: - [facility] [id number] [place], [place] [id number] Director: Zelalem Ernst [facility], Phone: [phone] Start: 07-31-2024 Hepatitis C antibody measurement Dr. Thomas Salinas MD Work Phone: Comment on above: Reactive: Presumptiv e evidence of antibodies to HCV. Follow CDC recommendations for supplemental testing.Non-Reactive: Antibodies to HCV were not detected; does not exclude the possibility of exposure to HCVReactive Results are presumptive evidence of antibodies to HCV. Follow CDC recommendations for supplemental testing.Order confirmation testing: HCV Quant by PCR testing - HCVPCR #[id number] Non Reactive: < 0.8 Equivocal: >/= 0.8 to < 1.0 Reactive: >/= 1.0The CDC requires that a reactive/equivocal HCV antibody result be sent out for confirmation. HCV Quant by PCR testing. Start: 07-31-[address] Thomas paula MD Work Phone: Start: 07-31-[address] Thomas Salinas MD Work Phone: Comment on above: Antibody Result: Int erpretationNon-Reactive: Non- ImmuneReactive: ImmuneThe following results were obtained with the [employer] Rubella IgG assay. Results from assays of other manufacturers cannot be used interchangeably. Start: 07-31-2024 Serologic test for syphilis Dr. Thomas Salinas MD Work Phone: Start: 07-20-[address] Royce Chapin DO Work Phone: Start: 07-02-2024 Transvaginal obstetr ic ultrasonography Dr. Royce Chapin DO Work Phone: Start: 06-25-2024 Transvaginal obstetr ic ultrasonography Dr. Royce Chapin DO Work Phone: Start: 04-01-2024 Transvaginal [address]etr ic ultrasonography Dr. Royce Chapin DO Work Phone: Start: 03-02-2023 Mri spinal canal lum bar w/o contrast material Konstantin Kirkland MD Work Phone: Start: 07-11-2022 Transvaginal echography Start: 03-19-2022 End: 03-19-2022 Antibody screen [facility] Work Phone: Comment on above: Order Comment: Speci men Type: BLOOD SPECIMEN Ordering Facility: [facility] Address: [address] [place] [address] Performed By: #### T [id number] #### [facility] [place] [id number] [address] [place] [address] OF [facility] Start: 03-16-2022 Mri spinal canal lum bar w/o contrast material Radha Dickens PA-C Work Phone: Start: 12-02-2021 Adult depression scr eening assessment Ashwini Cadet HEEL REDUCER.RESERVATIONS CLERK Work Phone: Start: 10-05-2021 Mri spinal canal lum bar w/o contrast material Yana Ballard HEEL REDUCER.RESERVATIONS CLERK Work Phone: Start: 06-12-2021 Adult depression scr eening assessment Yana Ballard RESERVATIONS CLERK Work Phone: Plan of Treatment Date Care Activity Detail Author Start: 05-16-2030 Urine microalbumin profile [facility] Start: 12-01-2024 CBC W Auto Different ial panel - Blood [facility] Start: 12-01-2024 Measurement of gluco se 2 hours after glucose challenge for glucose tolerance test [facility] Start: 12-01-2024 Serologic test for syphilis [facility] Start: 12-01-2024 [facility] Start: 04-01-2024 [facility] Start: 12-15-2023 Influenza vaccination Influenz a Vaccine (Season Ended) [facility] Start: 11-08-2023 PAP TESTING PAP TESTING [facility] Start: 11-08-2023 Screening for malign ant neoplasm of cervix Pap Testing [facility] Start: 04-15-2023 Behavioral Health Screening Behavioral Health Screening [facility] Start: 12-14-2022 Covid-19 Vaccine ( season) Covid-19 Vaccine ( season) [facility] Start: 12-14-2022 Influenza vaccination [facility] Start: 12-02-2022 Adult depression screening assessment DEPRESSION SCREENING [facility] Start: 06-12-2022 Adult depression screening assessment DEPRESSION SCREENING [facility] Start: 04-15-2022 DEPRESSION ASSESSMENT DEPRESSION ASS ESSMENT [facility] Start: 2022 HPV TESTING HPV TESTING [facility] Start: 2022 Screening for malign ant neoplasm of cervix HPV Testing [facility] Start: 12-14-2021 Influenza vaccination [facility] Start: 12-06-2021 End: 02-05-2022 CONFIRM BLOOD TYPE [facility] Work Phone: Comment on above: Expected: 12/06/2021 , Expires: 02/05/2022 Start: 12-06-2021 End: 02-05-2022 TYPE AND SCREEN,30 DAY [facility] Work Phone: Comment on above: Expected: 12/06/2021 , Expires: 02/05/2022 Start: 12-04-2021 End: 02-03-2022 Electrolytes 1998 panel - Serum or Plasma ELECTROLYTES BLD PNL Lab Routine Hypokalemia Expected: 12/04/2021, Expires: 02/03/2022 [facility] Work Phone: Comment on above: Expected: 12/04/2021 , Expires: 02/03/2022 Start: 12-04-2021 End: 02-03-2022 Magnesium [Mass/volume] in Serum or Plasma MAGNESIUM BLD Lab Routine Hypomagnesemia Expected: 12/04/2021, Expires: 02/03/2022 [facility] Work Phone: Comment on above: Expected: 12/04/2021 , Expires: 02/03/2022 Start: 11-23-2021 End: 01-23-2022 Basic metabolic 2000 panel - Serum or Plasma BASIC METABOLIC PNL Lab Routine Hypokalemia Expected: 11/23/2021, Expires: 01/23/2022 [facility] Work Phone: Comment on above: Expected: 11/23/2021 , Expires: 01/23/2022 Start: 11-23-2021 End: 01-23-2022 Magnesium [Mass/volume] in Serum or Plasma MAGNESIUM BLD Lab Routine Hypomagnesemia Expected: 11/23/2021, Expires: 01/23/2022 [facility] Work Phone: Comment on above: Expected: 11/23/2021 , Expires: 01/23/2022 Start: 11-07-2021 PAP TESTING PAP TESTING [facility] Start: 04-15-2021 DEPRESSION ASSESSMENT DEPRESSION ASS ESSMENT [facility] Start: 2010 HEPATITIS C SCREENING HEPATITIS C [facility] Start: 2010 Hepatitis C screening Hepatitis C [facility] Start: 2010 HIV SCREENING HIV SCREENING [facility] Start: 2010 HIV screening HIV Screening [facility] Start: 1997 COVID-19 VACCINE (#1) COVID-19 VACCI NE (#1) [facility] Start: 1992 COVID-19 VACCINE (#1) COVID-19 VACCI NE (#1) [facility] CBC W Auto Different ial panel - Blood [facility] Clostridioides diffi cile toxin genes [Presence] in Stool by YANDY with probe detection C. DIFFICILE PCR Lab Routine Diarrhea, unspecified type Ordered: 07/27/2023 [facility] Work Phone: Comment on above: Ordered: 07/27/2023 ENTERIC BACTERIAL PA KATHY BY PCR ENTERIC BACTERIAL PANEL BY PCR Lab Routine Diarrhea, unspecified type Ordered: 07/27/2023 [facility] Work Phone: Comment on above: Ordered: 07/27/2023 Erythrocyte mean corpuscular volume determination [facility] Hematocrit [Volume Fraction] of Blood [facility] Hemoglobin [Mass/vol ume] in Blood [facility] Leukocytes [#/volume ] in Blood [facility] Mean corpuscular hemoglobin concentration determination [facility] Mean corpuscular hemoglobin determination [facility] Measurement of gluco se 2 hours after glucose challenge for glucose tolerance test [facility] End: 10-19-2022 Mri spinal canal lumbar w/o contrast material MRI LUMBAR SPINE WO IVCON Radiology Routine Spinal stenosis of lumbar region without neurogenic claudication 1 Occurrences starting 09/19/2021 until 10/19/2022 [facility] Work Phone: Comment on above: 1 Occurrences starti ng 09/19/2021 until 10/19/2022 End: 04-11-2023 Mri spinal canal lumbar w/o contrast material MRI LUMBAR SPINE WO IVCON Radiology Routine Spinal stenosis of lumbar region with neurogenic claudication 1 Occurrences starting 03/12/2022 until 04/11/2023 [facility] Work Phone: Comment on above: 1 Occurrences starti ng 03/12/2022 until 04/11/2023 End: 03-07-2024 Mri spinal canal lumbar w/o contrast material MRI LUMBAR SPINE WO IVCON Radiology Routine Spinal stenosis of lumbar region with neurogenic claudication 1 Occurrences starting 02/06/2023 until 03/07/2024 [facility] Work Phone: Comment on above: 1 Occurrences starti ng 02/06/2023 until 03/07/2024 Neutrophil count [facility] Neutrophil percent differential count [facility] Njx anes&/strd w/img tfrml edrl lmbr/sac 1 lvl INJ TRANSFORAMINAL EPID ANES/STER LS SINGL Procedures Routine Lumbar disc herniation Radiculopathy, lumbar region 1 Occurrences starting 10/11/2021 [facility] Work Phone: Comment on above: 1 Occurrences starti ng 10/11/2021 Ova and parasites identified in Unspecified specimen by Light microscopy OVA + PARA MICROSCOPIC Microbiology Routine Diarrhea, unspecified type Ordered: 07/27/2023 [facility] Work Phone: Comment on above: Ordered: 07/27/2023 Patient Education Miscarriage Th reatened ED [facility] Work Phone: Patient referral [facility] Work Phone: Platelets [#/volume] in Blood [facility] Procedure [facility] Red blood cell count [facility] Red cell distributio n width determination [facility] Serologic test for syphilis [facility] Immunizations Immunization Date Immunization Notes Care Provider [facility] 12-15-2024 influenza, injectable, madin renee canine kidney, preservative free Dr. Thomas Salinas MD Work Phone: [facility] 12-15-2024 tetanus toxoid, reduced diphtheria toxoid, and acellular pertussis vaccine, adsorbed Dr. Thomas Salinas MD Work Phone: [facility] 05-16-2020 diphtheria, tetanus toxoids and acellular pertussis vaccine, unspecified formulation Dulce Wong HEEL REDUCER.RESERVATIONS CLERK Work Phone: [facility] Work Phone: 05-16-2020 tetanus toxoid, reduced diphtheria toxoid, and acellular pertussis vaccine, adsorbed Yana Ziol HEEL REDUCER.RESERVATIONS CLERK Work Phone: [facility] 01-25-2020 Influenza, injectable, Madin Oran Canine Kidney, preservative free, quadrivalent Dulce Wong HEEL REDUCER.RESERVATIONS CLERK Work Phone: [facility] Work Phone: 01-25-2020 influenza, injectable,quadrivale nt, preservative free, pediatric [facility] 01-25-2020 influenza, seasonal, injectable, preservative free Dulce Wong HEEL REDUCER.RESERVATIONS CLERK Work Phone: [facility] Work Phone: 01-25-2020 influenza virus vaccine, unspecified formulation Nehemias Suarez PT, DPT Work Phone: [facility] 09-24-2006 Meningococcal, MCV4, unspecified conjugate formulation(groups A, C, Y and W-135) Yana Ziol HEEL REDUCER.RESERVATIONS CLERK Work Phone: [facility] 09-24-2006 tetanus toxoid, reduced diphtheria toxoid, and acellular pertussis vaccine, adsorbed Yana Ziol HEEL REDUCER.RESERVATIONS CLERK Work Phone: [facility] 10-25-2004 measles, mumps and rubella virus vaccine Yana Ziol HEEL REDUCER.RESERVATIONS CLERK Work Phone: [facility] 04-08-1999 Chicken Pox (disease) Yana Ziol HEEL REDUCER.RESERVATIONS CLERK Work Phone: [facility] Work Phone: 11-16-1997 diphtheria, tetanus toxoids and acellular pertussis vaccine Yana Ziol HEEL REDUCER.RESERVATIONS CLERK Work Phone: [facility] 11-16-1997 poliovirus vaccine, inactivated Yana Ziol HEEL REDUCER.RESERVATIONS CLERK Work Phone: [facility] 09-20-1993 diphtheria, tetanus toxoids and acellular pertussis vaccine Yana Ziol HEEL REDUCER.RESERVATIONS CLERK Work Phone: [facility] 09-20-1993 poliovirus vaccine, inactivated Yana Ziol HEEL REDUCER.RESERVATIONS CLERK Work Phone: [facility] 06-14-1993 haemophilus influenzae type b vaccine, HbOC conjugate Yana Ziol HEEL REDUCER.RESERVATIONS CLERK Work Phone: [facility] 06-14-1993 measles, mumps and rubella virus vaccine Yana Ziol HEEL REDUCER.RESERVATIONS CLERK Work Phone: [facility] 01-18-1993 hepatitis B vaccine, pediatric or pediatric/adolescent dosage Yana Ziol HEEL REDUCER.RESERVATIONS CLERK Work Phone: [facility] 1992 diphtheria, tetanus toxoids and acellular pertussis vaccine Yana Ziol HEEL REDUCER.RESERVATIONS CLERK Work Phone: [facility] 1992 haemophilus influenzae type b vaccine, HbOC conjugate Yana Ziol HEEL REDUCER.RESERVATIONS CLERK Work Phone: [facility] 1992 hepatitis B vaccine, pediatric or pediatric/adolescent dosage Yana Ziol HEEL REDUCER.RESERVATIONS CLERK Work Phone: [facility] 1992 diphtheria, tetanus toxoids and acellular pertussis vaccine Yana Ziol HEEL REDUCER.RESERVATIONS CLERK Work Phone: [facility] 1992 haemophilus influenzae type b vaccine, HbOC conjugate Yana Ziol HEEL REDUCER.RESERVATIONS CLERK Work Phone: [facility] 1992 poliovirus vaccine, inactivated Yana Ziol HEEL REDUCER.RESERVATIONS CLERK Work Phone: [facility] 1992 hepatitis B vaccine, pediatric or pediatric/adolescent dosage Yana Ziol HEEL REDUCER.RESERVATIONS CLERK Work Phone: [facility] 1992 diphtheria, tetanus toxoids and acellular pertussis vaccine Yana Ziol HEEL REDUCER.RESERVATIONS CLERK Work Phone: [facility] 1992 haemophilus influenzae type b vaccine, HbOC conjugate Yana Balladr HEEL REDUCER.RESERVATIONS CLERK Work Phone: [facility] 1992 poliovirus vaccine, inactivated Yana Dennisongonzalo HEEL REDUCER.RESERVATIONS CLERK Work Phone: [facility] Payers Date Payer Category Payer Self-pay [id number] 2023 Unknown [id number] 2018 Private Health Insurance [facility] CHO[facility] PL[facility] [id number] 2018-Present [phone] [address] [place] [address] O [id number] 2018 Private Health Insurance [id number] 2018 Unknown [id number] 1992 Unknown [id number] 2.16.840.1.546966.3.579.2 .479 Unknown [id number] 2.16840.1.790294.3.579.2 .462 Unknown [id number] 2.16840.1.978872.3.579.2 .462 Unknown [id number] 2.840.1.119508.3.579.2 .462 Unknown [id number] 2.16840.1.575078.3.579.2 .462 Unknown [id number] 2.16840.1.359784.3.579.2 .462 Unknown [id number] 2.16.840.1.506246.3.579.2 .462 Unknown [id number] 2.16840.1.948848.3.579.2 .462 Unknown [id number] 2.16840.1.964799.3.579.2 .462 Unknown [id number] 2.16.840.1.432421.3.579.2 .462 Unknown [id number] 2.16.840.1.713561.3.579.2 .462 Unknown [id number] 2.16.840.1.728959.3.579.2 .462 Unknown [id number] 2.16.840.1.488543.3.579.2 .462 Unknown [id number] 2.840.1.577786.3.579.2 .462 Unknown [id number] 2..840.1.065281.3.579.2 .462 Unknown [id number] 2.840.1.540602.3.579.2 .462 Unknown [id number] 2.840.1.232826.3.579.2 .462 Unknown [id number] 2.840.1.197161.3.579.2 .462 Unknown [id number] 2.840.1.075497.3.579.2 .462 Unknown [id number] 2.840.1.284587.3.579.2 .462 Unknown [id number] 2.840.1.112814.3.579.2 .462 Unknown [id number] 2.840.1.930540.3.579.2 .462 Unknown [id number] 2.840.1.771829.3.579.2 .462 Unknown [id number] 2.840.1.006104.3.579.2 .462 Unknown [id number] 2.840.1.340356.3.579.2 .462 Unknown [id number] 2.840.1.695852.3.579.2 .462 Unknown [id number] 2.16840.1.561454.3.579.2 .462 Unknown [id number] 2.840.1.176435.3.579.2 .462 Unknown [id number] 2.16.840.1.467631.3.579.2 .462 Social History Date Type Detail Facility Tobacco smoking status Lana salinas [facility] Start: 06-12-2021 End: 08-15-2022 Sex Assigned At Female [facility] Start: 10-24-2015 End: 07-03-2024 Tobacco smoking status NHIS Ex-smoker [facility] End: 10-13-2013 History of tobacco use Current smoker [facility] End: 10-13-2013 History of tobacco use Cigarette Smoker [facility] Start: 10-24-2015 End: 08-15-2022 Cigarettes smoked current (pack per day) - Reported 0.8 [facility] Start: 10-24-2015 End: 12-06-2021 Tobacco use and exposure Smokeless tobacco non-user [facility] Start: 09-19-2021 End: 07-27-2023 Alcohol intake Current drinker of alcohol (finding) [facility] Start: 06-12-2021 History SDOH Alcohol Frequency 3 [facility] Start: 12-01-2019 End: 06-12-2021 History SDOH Alcohol Std Drinks 1 [facility] Start: 06-12-2021 History SDOH Alcohol Binge 2 [facility] Start: 10-31-2012 History SDOH Alcohol Comment occassionally - wine or mixed drink [facility] Start: 06-12-2021 History SDOH Social Connections Phone 5 [facility] Start: 06-12-2021 History SDOH Social Connections Meetings 98 [facility] Start: 06-12-2021 History SDOH Physical Activity DPW 0 [facility] Start: 06-12-2021 History SDOH Stress 4 [facility] Start: 11-30-2019 Education 15 [facility] Start: 10-24-2015 End: 12-04-2021 Tobacco Comment sometimes does E-cig but not very often [facility] Start: 1990 Sex Assigned At Not on file [facility] Start: 09-09-2021 End: 03-19-2022 Exposure to SARS-CoV-2 (event) Not sure [facility] Start: 12-06-2021 History SDOH Alcohol Comment a glass of wine twice a week [facility] Start: 12-06-2021 Tobacco Comment Last e cig 2 weeks ago [facility] Start: 10-02-2021 Tobacco smoking status NHIS Unknown if ever smoked [facility] Start: 1990 Sex Assigned At Female [facility] Do you belong to any clubs or organizations such as gnosticism groups, unions, fraternal or athletic groups, or school groups? No [facility] How often do you att end meetings of the clubs or organizations you belong to? Patient refused [facility] Are you now , , , , never or living with a partner? [facility] How often to you hav e a drink containing alcohol? 2-4 times a month [facility] How many standard dr inks containing alcohol do you have on a typical day? 1 or 2 [facility] How often do you hav e 6 or more drinks on 1 occasion? Less than monthly [facility] How hard is it for y ou to pay for the very basics like food, housing, medical care, and heating Somewhat hard [facility] Do you feel stress - tense, restless, nervous, or anxious, or unable to sleep at night because your mind is troubled all the time - these days [OSQ] Rather much [facility] (I/We) worried wheth er (my/our) food would run out before (I/we) got money to buy more. Never true [facility] Start: 06-26-2024 End: 07-23-2024 Sex Female (finding) [facility] Clinical Notes 09-14-2021 to 01-11-2025 Note Date & Type Note Facility 01-11-2025 Progress note [facility] 12-28-2024 Progress note [facility] 11-09-2024 Progress note [facility] 10-12-2024 Evaluation note Diagnosis Onset Date Resolution acute October 12 3:50pm Supervision of high-risk acute October 12 025 3:50pm Former smoker resolved October 12, 2024 3:50pm acute November 09 8:49am Supervision of high-risk acute November 09, 2 025 8:49am Anxiety acute December 01 025 8:08am acute December 01 025 8:08am Supervision of high-risk acute December 01, 2024 8:08am Anxiety acute December 15, 2024 9:19am acute December 15, 2024 9:19am Supervision of high-risk acute December 9:19am Anxiety acute December 9:42am acute December 9:42am Supervision of high-risk acute December 282024 9:42am Anxiety acute December 10:15am acute December 10:15am Supervision of high-risk acute January 112024 10:15am [facility] Work Phone: [phone]) 991-408706-30-2025 [facility] [address] [place] [address], [address] [place] [address] OFFICE VISIT Date of Service: 10/12/24 MR#: [id number] Acct: [id number] Name: HANNAH HENDRICKS Rep #: [id number] : 1990 Provider: Dr. 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 Is patient in pain?: No Allergies amoxicillin Allergy (Intermediate, Verified 10/12/24 15:52) Rash vancomycin Allergy (Intermediate, Verified 10/12/24 15:52) Rash Penicillins Allergy (Mild, Verified 10/12/24 15:52) hives, breathing issues shellfish derived Allergy (Mild, Verified 10/12/24 15:52) hives Medications ?Medication ?Instructions ?Recorded ?Confirmed ?Type docosahexaenoic acid 200 mg 200 mg PO DAILY 04/01/24 0 10/12/24 History capsule ( DHA) ondansetron HCl 4 mg tablet 4 mg PO Q6H #30 tabs 07/2010/12/24 Rx Last Menstrual Period: 05/23/24 Zika: Zika virus screening: Negative : No PFSH PFSH Medical History Spontaneous Herniated disc Endometritis following delivery Surgical History Previous back surgery Family History Uncle Colon cancer Liver cancer Grandfather Liver cancer Pancreatic cancer Uncle Diverticulitis Grandmother Heart disease Uncle Heart disease Social History adopted: No household members: spouse and children housing: house number of children: 1 current occupational status: employed current occupation: [employer] current occupational exposures/hazards: No pets and animals: Yes (Not managing litterbox) pets and animals: cat(s), dog(s)and other details: rabbit history of recent travel: No sexually active: Yes Smoking Status: Former smoker quit date: 06/16/24 how long ago did patient quit smokin06/16/24 second hand exposure: No quit status: quit date established alcohol intake: current alcohol intake frequency: a few times a month details: Not while substance use type: does not use well-balanced diet: daily or most days caffeine: Yes Type: coffee and tea eating out: 1-3 times/week during the past year weight has: remained stable what type of physical activity do you participate in: walking frequency: 3-4 times per week duration: 15-30 minutes/day agata/presybeterian: Nondenominational seatbelt use: always do you feel safe at home: Yes 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 Date Name GA/Weeks Outcome Route Bth Weight Gen Labor Lgth Anesthesia Del Locatn Provider FOB 08/11/20 Janie 39 live - full term 7lbs 8.5oz Female epidural [facility] Dr. Quang Samaniego 03/15/24 4 spontaneous Delivery Date: 08/11/20 Last Updated by: Cherelle Reeder Induced HPI 21wk ob Details: HANNAH HENDRICKS is a 34 year old who presents for routine OB visit. OB Visit BALAJI Calculator Estimated Delivery Date Method Current WG Current Estimate 02/24/25 Ultrasound #1 20w 5d Other Estimates 02/27/25 LMP (Certain) 20w 2d Expected Delivery Route/Plan Labor Preferences- CB/BF classes: [] labor support person: [] labor intervention preferences: [] pain management options preferred: [] cut cord/dad catch: [] : [] PP control planned: [] discussed possible routes of delivery and associated risks: [] special requests: [] Specific Issue/Plans Covid status: [] Flu vaccine: [] Tdap vaccine: [] Rhogam: [] LARC form signed: [] Problem list reviewed and updated with the most current plan of care details and appropriate ordersplaced. Relevant counseling for the gestational age provided. Continue routine care and follow up unless otherwise noted in visit notes/problem list details Initial Weight: Not Recorded Date -?-?-?-?-?-?-?-?-?-?-?-?- EGA Weight BP Urine Prot -?-?-?-?-?-?-?-?-?-?-?-?- Glucose FHR FuHt Pres Dilation -?-?-?-?-?-?-?-?-?-?-?-?- Effaced St Visit Note 07/20/24 -?-?-?-?-?-?-?-?-?-?-?-?- 8w 5d 182 lb 6 oz 117/79 -?-?-?-?-?-?-?-?-?-?-?-?- 170 -?-?-?--?-?-?-?-?-?-?-?-?- JV- CRL consiste nt with LMP and prior ultrasound. desires NIPT and carrier screen. 08/05/24 -?-?-?-?-?-?-?-?-?-?-?-?- 11w 0d 183 lb 126/78 Negative -?-?-?-?-?-?-?-?-?-?-?-?- Negative 173 -?-?-?-?-?-?-?-?-?-?-?-?- MH-work in. Fel l on knees last night/increased cramping. No bleeding. Hx of SAB. Live IUP on br US. 08/17/24 -?-?-?-?-?-?-?-?-?-?-?-?- 12w 5d 184 lb 8 oz 104/68 Trac e -?-?-?-?-?-?-?-?-?-?-?-?- Negative 157 -?-?-?-?--?-?-?-?-?-?-?-?- MH-No VB. Nausea improving. Br US confirm FHT 09/14/24 -?-?-?-?-?-?-?-?-?-?-?-?- 16w 5d 190 lb 2 oz 106/71 Nega tive -?-?-?-?-?-?-?-?-?-?-?-?- Negative 156 -?-?-?-?-?-?-?-?-?-?-?-?- KW- No vb/crampi ng. having migraines from lack of caffeine-discussed usage. Anatomy US ordered. AFP declined. 10/12/24 -?-?-?-?-?-?-?-?-?-?-?-?- 20w 5d 195 lb 6 oz 119/75 Nega tive -?-?-?-?-?-?-?-?-?-?-?-?- Negative 140 -?-?-?-?-?-?-?-?-?-?-?-?- SM- no vb crampi ng ACOG First Trimester First Trimester: Desire for , Alcohol, Tobacco Cessation, Illicit/Recreational Drug/Substance Use, Unstable Housing, Communication Barriers, Environmental/Work Hazards, Anticipated Course ofPrenatal Care, Toxoplasmosis Precations, Use of Any medications, Sexual activity, Exercise, Dental Care, Sauna/Hot tub use, Seat Belt use, Childbirth classes/Hospital facilities, Travel and Screeningfor Aneuploidy; Discussed Second Trimester Second Trimester: Signs and Symptoms of Labor, Selecting a care provider, Reproductive Life Planning & Contreception, Care Planning, Depression/Anxiety and Intimate Partner Violence; Discussed Tobacco Cessation Results POC Urinalysis 2 Dip (Clinic) Office Urine Glucose Negative Last Edit by Barbie Hawthorne on 10/12/24 16:01 Office Urine Protein Negative Last Edit by Barbie Hawthorne on 10/12/24 16:01 Coding Level of Care Code OB Routine Diagnoses Supervision of high risk in second trimester O09.92 Trimester: second trimester 20 weeks gestation of Z3A.20 Weeks of gestation: 20 weeks Former smoker Z87.891 Assessment and Plan Assessment and Plan (1) Supervision of high-risk : Status: Acute Qualifiers: Trimester: second trimester Qualified Code(s): O09.92 - Supervision of high risk , unspecified, second trimester Comment: PRR,; BALAJI 02/24/25; surprise PC: Janie; : Aden (2) : Status: Acute Qualifiers: Weeks of gestation: 20 weeks Qualified Code(s): Z3A.20 - 20 weeks gestation of Comment: Discussed genetic/carrier testing NIPT low risk, gender not selected, nl anatomy (3) Former smoker: Status: Resolved Comment: Stopped 06/16/24 Orders: Orders POC Urinalysis 2 Dip (Clinic) Today 10/12/24 162Rafa cooley MD> Date _ Isabel Marino MD [facility] Signature: Date (if applicable) CC: ~ [id number] Progress note Author Isabel Marino [facility] Note Date/Time October 12, 2024 4:21 pm [facility] [address] [place] [address], [address] [place] [address] OFFICE VISIT Date of Service: 10/12/24 MR#: [id number] Acct: [id number] Name: HANNAH HENDRICKS Rep #: [id number] : 1990 Provider: Dr. 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 Is patient in pain?: No Allergies amoxicillin Allergy (Intermediate, Verified 10/12/24 15:52) Rash vancomycin Allergy (Intermediate, Verified 10/12/24 15:52) Rash Penicillins Allergy (Mild, Verified 10/12/24 15:52) hives, breathing issues shellfish derived Allergy (Mild, Verified 10/12/24 15:52) hives Medications ?Medication ?Instructions ?Recorded ?Confirmed ?Type docosahexaenoic acid 200 mg 200 mg PO DAILY 04/01/24 0 10/12/24 History capsule ( DHA) ondansetron HCl 4 mg tablet 4 mg PO Q6H #30 tabs 07/2010/12/24 Rx Last Menstrual Period: 05/23/24 Zika: Zika virus screening: Negative : No PFSH PFSH Medical History Spontaneous Herniated disc Endometritis following delivery Surgical History Previous back surgery Family History Uncle Colon cancer Liver cancer Grandfather Liver cancer Pancreatic cancer Uncle Diverticulitis Grandmother Heart disease Uncle Heart disease Social History adopted: No household members: spouse and children housing: house number of children: 1 current occupational status: employed current occupation: [employer] current occupational exposures/hazards: No pets and animals: Yes (Not managing litterbox) pets and animals: cat(s), dog(s)and other details: rabbit history of recent travel: No sexually active: Yes Smoking Status: Former smoker quit date: 06/16/24 how long ago did patient quit smokin06/16/24 second hand exposure: No quit status: quit date established alcohol intake: current alcohol intake frequency: a few times a month details: Not while substance use type: does not use well-balanced diet: daily or most days caffeine: Yes Type: coffee and tea eating out: 1-3 times/week during the past year weight has: remained stable what type of physical activity do you participate in: walking frequency: 3-4 times per week duration: 15-30 minutes/day agata/presybeterian: Nondenominational seatbelt use: always do you feel safe at home: Yes 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 Date Name GA/Weeks Outcome Route Bth Weight Infant Gen Labor Lgth Anesthesia Del Locatn Provider FOB 08/11/20 Janie 39 live - full term 7lbs 8.5oz Female epidural [facility] Dr. Quang Samaniego 03/15/24 4 spontaneous Delivery Date: 08/11/20 Last Updated by: Cherelle Reeder Induced HPI 21wk ob Details: HANNAH HENDRICKS is a 34 year old who presents for routine OB visit. OB Visit BALAJI Calculator Estimated Delivery Date Method Current WG Current Estimate 02/24/25 Ultrasound #1 20w 5d Other Estimates 02/27/25 LMP (Certain) 20w 2d Expected Delivery Route/Plan Labor Preferences- CB/BF classes: [] labor support person: [] labor intervention preferences: [] pain management options preferred: [] cut cord/dad catch: [] : [] PP control planned: [] discussed possible routes of delivery and associated risks: [] special requests: [] Specific Issue/Plans Covid status: [] Flu vaccine: [] Tdap vaccine: [] Rhogam: [] LARC form signed: [] Problem list reviewed and updated with the most current plan of care details and appropriate orders placed. Relevant counseling for the gestational age provided. Continue routine care and follow up unless otherwise noted in visit notes/problem list details Initial Weight: Not Recorded Date -?-?-?-?-?-?-?-?-?-?-?-?- EGA Weight BP Urine Prot -?-?-?-?-?-?-?-?-?-?-?-?- Glucose FHR FuHt Pres Dilation -?-?-?-?-?-?-?-?-?-?-?-?- Effaced St Visit Note 07/20/24 -?-?-?-?-?-?-?-?-?-?-?-?- 8w 5d 182 lb 6 oz 117/79 -?-?-?-?-?-?-?-?-?-?-?-?- 170 -?-?-?--?-?-?-?-?-?-?-?-?- JV- CRL consiste nt with LMP and prior ultrasound. desires NIPT and carrier screen. 08/05/24 -?-?-?-?-?-?-?-?-?-?-?-?- 11w 0d 183 lb 126/78 Negative -?-?-?-?-?-?-?-?-?-?-?-?- Negative 173 -?-?-?-?-?-?-?-?-?-?-?-?- MH-work in. Fel l on knees last night/increased cramping. No bleeding. Hx of SAB. Live IUP on br US. 08/17/24 -?-?-?-?-?-?-?-?-?-?-?-?- 12w 5d 184 lb 8 oz 104/68 Trac e -?-?-?-?-?-?-?-?-?-?-?-?- Negative 157 -?-?-?-?--?-?-?-?-?-?-?-?- MH-No VB. Nausea improving. Br US confirm FHT 09/14/24 -?-?-?-?-?-?-?-?-?-?-?-?- 16w 5d 190 lb 2 oz 106/71 Nega tive -?-?-?-?-?-?-?-?-?-?-?-?- Negative 156 -?-?-?-?-?-?-?-?-?-?-?-?- KW- No vb/crampi ng. having migraines from lack of caffeine-discussed usage. Anatomy US ordered. AFP declined. 10/12/24 -?-?-?-?-?-?-?-?-?-?-?-?- 20w 5d 195 lb 6 oz 119/75 Nega tive -?-?-?-?-?-?-?-?-?-?-?-?- Negative 140 -?-?-?-?-?-?-?-?-?-?-?-?- SM- no vb pani ng ACOG First Trimester First Trimester: Desire for , Alcohol, Tobacco Cessation, Illicit/Recreational Drug/Substance Use, Unstable Housing, Communication Barriers, Environmental/Work Hazards, Anticipated Course of Care, Toxoplasmosis Precations, Use of Any medications, Sexual activity, Exercise, Dental Care, Sauna/Hot tub use, Seat Belt use, Childbirth classes/Hospital facilities, Travel and Screening for Aneuploidy; Discussed Second Trimester Second Trimester: Signs and Symptoms of Labor, Selecting a care provider, Reproductive Life Planning & Contreception, Care Planning, Depression/Anxiety and Intimate Partner Violence; Discussed Tobacco Cessation Results POC Urinalysis 2 Dip (Clinic) Office Urine Glucose Negative Last Edit by Barbie Hawthorne on 10/12/24 16:01 Office Urine Protein Negative Last Edit by Barbie Hawthorne on 10/12/24 16:01 Coding Level of Care Code OB Routine Diagnoses Supervision of high risk in second trimester O09.92 Trimester: second trimester 20 weeks gestation of Z3A.20 Weeks of gestation: 20 weeks Former smoker Z87.891 Assessment and Plan Assessment and Plan (1) Supervision of high-risk : Status: Acute Qualifiers: Trimester: second trimester Qualified Code(s): O09.92 - Supervision of high risk , unspecified, second trimester Comment: PRR,; BALAJI 02/24/25; surprise PC: Janie; : Aden (2) : Status: Acute Qualifiers: Weeks of gestation: 20 weeks Qualified Code(s): Z3A.20 - 20 weeks gestation of Comment: Discussed genetic/carrier testing NIPT low risk, gender not selected, nl anatomy (3) Former smoker: Status: Resolved Comment: Stopped 06/16/24 Orders: Orders POC Urinalysis 2 Dip (Clinic) Today 10/12/24 0541 <Electronically signed by Isabel cooley MD> Date _ Isabel Vitale Signature: Date (if applicable) CC: ~ [facility] Work Phone: 1(113) 509-769706-02-2025 Evaluation note* Diagnosis Onset Date Resolution Status Admit Date acute September 14, 2024 8:56am Supervision of high-risk acute September 14, 2024 8 :56am Former smoker resolved September 14 025 8:56am History of miscarriage, currently resolved September 14 8:56am acute October 12 3:50pm Supervision of high-risk acute October 12, 2024 3:50pm Former smoker resolved October 12, 2024 3:50pm acute November 09 8:49am Supervision of high-risk acute November 09, 2024 8:49am Anxiety acute December 01, 025 8:08am acute December 01, 025 8:08am Supervision of high-risk acute December 01 8:08am Anxiety acute December 15, 2024 9:19am acute December 15, 2024 9:19am Supervision of high-risk acute December 15, 9:19am Anxiety acute December 9:42am acute December 9:42am Supervision of high-risk acute December 28, 2024 9:42am [facility] Work Phone: 1(201) 208-958406-02-2025 Progress [facility] [address] [place] [address], [address] [place] [address] OFFICE VISIT Date of Service: 09/14/24 MR#: [id number] Acct: [id number] Name: HANNAH HENDRICKS Rep #: [id number] : 1990 Provider: BART Mcghee Age/Sex: 34/F Location: [facility] Status: Signed Intake Vital Signs 07/20/24 13:59 08/17/24 08:32 09/14/24 08:59 Height 5 ft 6 in 5 ft 6 in 5 ft 6 in Weight: 190 lb 2 oz BMI 30.7 BP 106/71 Intake Visit Reasons: 17wk ob Chief Complaint: 17wk OB Balloon Sander Required: No Is patient in pain?: No Allergies amoxicillin Allergy (Intermediate, Verified 08/17/24 08:37) Rash vancomycin Allergy (Intermediate, Verified 08/17/24 08:37) Rash Penicillins Allergy (Mild, Verified 08/17/24 08:37) hives, breathing issues shellfish derived Allergy (Mild, Verified 08/17/24 08:37) hives Medications ?Medication ?Instructions ?Recorded ?Confirmed ?Type docosahexaenoic acid 200 mg 200 mg PO DAILY 04/01/24 0 09/14/24 History capsule ( DHA) ondansetron HCl 4 mg tablet 4 mg PO Q6H #30 tabs 07/2009/14/24 Rx Last Menstrual Period: 05/23/24 : No PFSH PFSH Medical History Spontaneous Herniated disc Endometritis following delivery Surgical History Previous back surgery Family History Uncle Colon cancer Liver cancer Grandfather Liver cancer Pancreatic cancer Uncle Diverticulitis Grandmother Heart disease Uncle Heart disease Social History adopted: No household members: spouse and children housing: house number of children: 1 current occupational status: employed current occupation: [employer] current occupational exposures/hazards: No pets and animals: Yes (Not managing litterbox) pets and animals: cat(s), dog(s)and other details: rabbit history of recent travel: No sexually active: Yes Smoking Status: Former smoker quit date: 06/16/24 how long ago did patient quit smokin06/16/24 second hand exposure: No quit status: quit date established alcohol intake: current alcohol intake frequency: a few times a month details: Not while substance use type: does not use well-balanced diet: daily or most days caffeine: Yes Type: coffee and tea eating out: 1-3 times/week during the past year weight has: remained stable what type of physical activity do you participate in: walking frequency: 3-4 times per week duration: 15-30 minutes/day agata/presybeterian: Nondenominational seatbelt use: always do you feel safe at home: Yes 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 Date Name GA/Weeks Outcome Route Bth Weight Infant Gen Labor Lgth Anesthesia Del Locatn Provider FOB 08/11/20 Janie 39 live - full term 7lbs 8.5oz Female epidural [facility] Dr. Quang Samaniego 03/15/24 4 spontaneous Delivery Date: 08/11/20 Last Updated by: Cherelle Reeder Induced HPI 17wk ob Details: HANNAH HENDRICKS is a 34 year old who presents for routine OB visit. OB Visit BALAJI Calculator Estimated Delivery Date Method Current WG Current Estimate 02/24/25 Ultrasound #1 16w 5d Other Estimates 02/27/25 LMP (Certain) 16w 2d Expected Delivery Route/Plan Labor Preferences- CB/BF classes: [] labor support person: [] labor intervention preferences: [] pain management options preferred: [] cut cord/dad catch: [] : [] PP control planned: [] discussed possible routes of delivery and associated risks: [] special requests: [] Specific Issue/Plans Covid status: [] Flu vaccine: [] Tdap vaccine: [] Rhogam: [] LARC form signed: [] Problem list reviewed and updated with the most current plan of care details and appropriate ordersplaced. Relevant counseling for the gestational age provided. Continue routine care and follow up unless otherwise noted in visit notes/problem list details Initial Weight: Not Recorded Date -?-?-?-?-?-?-?-?-?-?-?-?- EGA Weight BP Urine Prot -?-?-?-?-?-?-?-?-?-?-?-?- Glucose FHR FuHt Pres Dilation -?-?-?-?-?-?-?-?-?-?-?-?- Effaced St Visit Note 07/20/24 -?-?-?-?-?-?-?-?-?-?-?-?- 8w 5d 182 lb 6 oz 117/79 -?-?-?-?-?-?-?-?-?-?-?-?- 170 -?-?-?-?-?-?-?-?-?-?-?-?- JV- CRL consiste nt with LMP and prior ultrasound. desires NIPT and carrier screen. 08/05/24 -?-?-?-?-?-?-?-?-?-?-?-?- 11w 0d 183 lb 126/78 Negative -?-?-?-?-?-?-?-?-?-?-?--?- Negative 173 -?-?-?-?-?-?-?-?-?-?-?-?- MH-work in. Fel l on knees last night/increased cramping. No bleeding. Hx of SAB. Live IUP on br US. 08/17/24 -?-?-?-?-?-?-?-?-?-?-?-?- 12w 5d 184 lb 8 oz 104/68 Trac e -?-?-?-?-?-?-?-?-?-?-?-?- Negative 157 -?-?-?-?-?-?-?-?-?-?-?-?- MH-No VB. Nausea improving. [facility] confirm FHT 09/14/24 -?-?-?-?-?-?-?-?-?-?-?-?- 16w 5d 190 lb 2 oz 106/71 -?-?-?-?-?-?-?-?-?-?-?-?- 156 -?-?-?-?-?-?-?-?-?-?-?-?- KW- No vb/crampi ng. having migraines from lack of caffeine-discussed usage. Anatomy US ordered. AFP declined. ACOG First Trimester First Trimester: Desire for , Alcohol, Tobacco Cessation, Illicit/Recreational Drug/Substance Use, Unstable Housing, Communication Barriers, Environmental/Work Hazards, Anticipated Course ofPrenatal Care, Toxoplasmosis Precations, Use of Any medications, Sexual activity, Exercise, Dental Care, Sauna/Hot tub use, Seat Belt use, Childbirth classes/Hospital facilities, Travel and Screeningfor Aneuploidy; Discussed Second Trimester Second Trimester: Signs and Symptoms of Labor, Selecting a care provider, Reproductive Life Planning & Contreception, Care Planning, Depression/Anxiety and Intimate Partner Violence; Discussed Tobacco Cessation ROS Const Reports system reviewed and no additional complaints, except as documented Eyes Reports system reviewed and no additional complaints, except as documented ENT Reports system reviewed and no additional complaints, except as documented Card Reports system reviewed and no additional complaints, except as documented Resp Reports system reviewed and no additional complaints, except as documented GI Reports system reviewed and no additional complaints, except as documented, Denies nausea and Denies vomiting Reports system reviewed and no additional complaints, except as documented Musc Reports system reviewed and no additional complaints, except as documented Skin/Breast Reports system reviewed and no additional complaints, except as documented Neuro Yes system reviewed and no additional complaints, except as documented Psych Reports system reviewed and no additional complaints, except as documented Endo Reports system reviewed and no additional complaints, except as documented Kwabena/Lymph Reports system reviewed and no additional complaints, except as documented Aller/Immun Reports system reviewed and no additional complaints, except as documented Exam Const General: cooperative, healthy appearing and no acute distress Orientation: alert, awake and oriented x3 Neck Neck: normal visual inspection and full ROM Resp Effort & Inspection: normal respiratory effort, able to speak in complete sentences and symmetric chest movement GI Inspection: normal to inspection Palpation: soft and other Other: gravid Skin General: no rashes or lesions noted Neuro General: patient alert, patient awake and patient oriented x3 Cognition: normal cognition Speech: speech normal Gait: normal gait Motor: muscle tone normal throughout Extrem General: normal to inspection and full ROM Psych Appearance: grossly normal Mental Status: mental status grossly normal Mood: congruent mood Affect: normal affect Speech and Movement: speech and movement normal Attitude: cooperative Thought Process: normal Thought Content: normal Judgment: judgment good Coding Level of Care Code OB Routine Diagnoses History of miscarriage, currently O09.299 Supervision of high risk in second trimester O09.92 Trimester: second trimester 16 weeks gestation of Z3A.16 Weeks of gestation: 16 weeks Former smoker Z87.891 Assessment and Plan Assessment and Plan (1) History of miscarriage, currently : Status: Acute Comment: x1, March 2024 (2) Supervision of high-risk : Status: Acute Qualifiers: Trimester: second trimester Qualified Code(s): O09.92 - Supervision of high risk , unspecified, second trimester Comment: PRR,; BALAJI 02/24/25; PC: Janie; : Aden (3) : Status: Acute Qualifiers: Weeks of gestation: 16 weeks Qualified Code(s): Z3A.16 - 16 weeks gestation of Comment: Discussed genetic/carrier testing - Desires both, NIPT low risk, gender not selected (4) Former smoker: Status: Acute Comment: Stopped 06/16/24 Orders: Orders POC Urinalysis 2 Dip (Clinic) Today Plan Details Additional Comments: ACOG trimester education reviewed and updated. see problem list details for updated plan management information and see below for orders placed atthis visit. GA appropriate handout given. 09/14/24 0934 s BART> Date _ Ximena Mcghee CNM Cosigner Signature: Date (if applicable) CC: ~ [facility]05-05-2025 Evaluation note* Diagnosis Onset Date Resolution Status Admit Date acute August 17, 2024 8:28am Supervision of high-risk acute August 17, 2024 8: 28am Former smoker resolved August 17 8:28am History of miscarriage, currently resolved August 17, 2024 8:28am acute September 14, 2024 8:56am Supervision of high-risk acute September 14, 2024 8 :56am Former smoker resolved September 14 8:56am History of miscarriage, currently resolved September 14 8:56am acute October 12 3:50pm Supervision of high-risk acute October 12, 2024 3:50pm Former smoker resolved October 12, 2024 3:50pm acute November 09 8:49am Supervision of high-risk acute November 09, 2024 8:49am Anxiety acute December 01, 2 025 8:08am acute December 01 025 8:08am Supervision of high-risk acute December 01 8:08am [facility] Work Phone: 1(458) 873-654305-05-2025 Evaluation note* Diagnosis Onset Date Resolution Status Admit Date acute August 17, 2024 8:28am Supervision of high-risk acute August 17, 2024 8: 28am Former smoker resolved August 17 8:28am History of miscarriage, currently resolved August 17, 2024 8:28am acute September 14, 2024 8:56am Supervision of high-risk acute September 14, 2024 8 :56am Former smoker resolved September 14 8:56am History of miscarriage, currently resolved September 14 8:56am acute October 12 3:50pm Supervision of high-risk acute October 12, 2024 3:50pm Former smoker resolved October 12, 2024 3:50pm acute November 09 8:49am Supervision of high-risk acute November 09, 2024 8:49am Anxiety acute December 01, 025 8:08am acute December 01, 025 8:08am Supervision of high-risk acute December 01 8:08am Anxiety acute December 15, 2024 9:19am acute December 15, 2024 9:19am Supervision of high-risk acute December 15 9:19am [facility] Work Phone: 1(411) 212-463704-23-2025 Evaluation note* Diagnosis Onset Date Resolution Status Admit Date acute August 05 9:49am Supervision of high-risk acute August 05, 2024 9:49am Former smoker resolved August 05, 2024 9:49am History of miscarriage, currently resolved August 05 9:49am acute August 17, 2024 8:28am Supervision of high-risk acute August 17, 2024 8: 28am Former smoker resolved August 17 8:28am History of miscarriage, currently resolved August 17, 2024 8:28am acute September 14, 2024 8:56am Supervision of high-risk acute September 14, 2024 8 :56am Former smoker resolved September 14 025 8:56am History of miscarriage, currently resolved September 14 8:56am acute October 12 3:50pm Supervision of high-risk acute October 12, 2024 3:50pm Former smoker resolved October 12, 2024 3:50pm acute November 09 8:49am Supervision of high-risk acute November 09, 2024 8:49am Anxiety acute December 01, 2 025 8:08am acute December 01 025 8:08am Supervision of high-risk acute December 01 8:08am [facility] Work Phone: 1(774) 127-159504-07-2025 Evaluation note* Diagnosis Onset Date Resolution Status Admit Date Former smoker acute July 20, 2024 1:53pm History of miscarriage, currently acute July 20 1:53pm acute July 20 1:53pm Supervision of high-risk acute July 20, 2024 1:53pm Former smoker acute August 05, 2024 9:49am History of miscarriage, currently acute August 05, 9:49am acute August 05 9:49am Supervision of high-risk acute August 05, 2024 9:49am Former smoker acute August 17 8:28am History of miscarriage, currently acute August 17, 2024 8:28am acute August 17, 2024 8:28am Supervision of high-risk acute August 17, 2024 8: 28am Former smoker acute September 14 025 8:56am History of miscarriage, currently acute September 14 8:56am acute September 14, 2024 8:56am Supervision of high-risk acute September 14, 2024 8 :56am [facility] Work Phone: 1(464) 980-665104-07-2025 Evaluation note* Diagnosis Onset Date Resolution Status Admit Date acute July 20 1:53pm Supervision of high-risk acute July 20, 2024 1:53pm Former smoker resolved July 20, 2024 1:53pm History of miscarriage, currently resolved July 20 1:53pm acute August 05 9:49am Supervision of high-risk acute August 05, 2024 9:49am Former smoker resolved August 05, 2024 9:49am History of miscarriage, currently resolved August 05 9:49am acute August 17, 2024 8:28am Supervision of high-risk acute August 17, 2024 8: 28am Former smoker resolved August 17 8:28am History of miscarriage, currently resolved August 17, 2024 8:28am acute September 14, 2024 8:56am Supervision of high-risk acute September 14, 2024 8 :56am Former smoker resolved September 14 8:56am History of miscarriage, currently resolved September 14 8:56am acute October 12 3:50pm Supervision of high-risk acute October 12, 2024 3:50pm Former smoker resolved October 12, 2024 3:50pm [place] [employer] Work Phone: 1(876) 565-375104-07-2025 Evaluation note* Diagnosis Onset Date Resolution Status Admit Date acute July 20 1:53pm Supervision of high-risk acute July 20, 2024 1:53pm Former smoker resolved July 20, 2024 1:53pm History of miscarriage, currently resolved July 20 1:53pm acute August 05 9:49am Supervision of high-risk acute August 05, 2024 9:49am Former smoker resolved August 05, 2024 9:49am History of miscarriage, currently resolved August 05 9:49am acute August 17, 2024 8:28am Supervision of high-risk acute August 17, 2024 8: 28am Former smoker resolved August 17 8:28am History of miscarriage, currently resolved August 17, 2024 8:28am acute September 14, 2024 8:56am Supervision of high-risk acute September 14, 2024 8 :56am Former smoker resolved September 14 8:56am History of miscarriage, currently resolved September 14 8:56am acute October 12 3:50pm Supervision of high-risk acute October 12, 2024 3:50pm Former smoker resolved October 12, 2024 3:50pm acute November 09 8:49am Supervision of high-risk acute November 09, 2024 8:[address] [facility] Work Phone: 1(265) 110-808203-20-2025 Radiology Diagnostic study note [facility] Imaging Services [address] [place] [address] Transvaginal w/Preg US MR#: [id number] Acct: [id number] Name: HANNAH HENDRICKS Rep #: [id number] : 1990 F 34 From: Mavis Yuan MD PCP: Dr. Thomas Salinas MD Status: REG CLI Study:Transvaginal w/Preg US Date of Exam: 07/02/24 Exam# [id number] Ordering Dr: Maryann Castaneda DO PROCEDURE: TRANSVAGINAL W/PREG US (USTVAGP), 07/02/2024. Reportedly, 5 weeks 5 days by previously established dates with BALAJI 02/27/2025. REASON FOR EXAM: VIABILITY TECHNIQUE: Grayscale and color/spectral doppler transvaginal pelvic ultrasound was performed with attention tothe uterus and associated early gestation. COMPARISON: 06/25/2024 FINDINGS: A single intrauterine gestational sac is identified with mean sac diameter 14 mmcorresponding to 6 weeks 2 days. Previously suspected tiny perigestational hemorrhage is not visualized. Suspect a minute 2.6 mm pole corresponding to 6 weeks 1 day. Yolk sac: Present. Cardiac activity: Present, 101 beats per minute. Estimated delivery date (BALAJI): 02/24/2025 by CRL. Uterus: Otherwise unremarkable, 9.6 x 6.4 x 4.7 cm. Cervix: Unremarkable. Right ovary: 3.4 x 1.7 x 1.3 cm, unremarkable. Left ovary: 3.0 x 2.5 x 2.2 cm. 2.0 x 1.8 x 1.6 cm likely corpus luteum. Other: No significant visualized pelvic free fluid. US/Transvaginal w/Preg US IMPRESSION: 1. Single live intrauterine gestation with an estimated gestational age of 6 weeks 1 days corresponding to BALAJI 02/24/2025. This is compatible with reported previously established dates. 2. Borderline mild bradycardia could be due to very early gestation. Recommend clinical follow-up. Additionally recommend routine complete anatomic survey at 20 weeks. 3. Additional description as above. Reading Location: [facility] CC: Dr. Maryann Bajwa DO; Dr. Thomas Salinas MD ~ Director Instrumentation: Signed [facility]03-14-2025 Radiology Diagnostic study note [facility] Imaging Services [address] [place] [place], [place] [address] Transvaginal w/Preg US MR#: [id number] Acct: [id number] Name: HANNAH HENDRICKS Rep #: [id number] : 1990 F 34 From: Mavis Yuan MD PCP: Dr. Thomas Salinas MD Status: REG CLI Study:Transvaginal w/Preg US Date of Exam: 06/25/24 Exam# [id number] Ordering Dr: Maryann Castaneda DO PROCEDURE: TRANSVAGINAL W/PREG US (USTVAGP), 06/25/2024 REASON FOR EXAM: RULE OUT ECTOPIC . Reportedly, 4 weeks 5 days with EGD 02/27/2025 by previously established dates. TECHNIQUE: Grayscale and color doppler transvaginal pelvic ultrasound was performed with attention to the uterus and associated early gestation. COMPARISON: 06/02/2023. Images only are available for review; the report is not available at the time of dictation. FINDINGS: An endometrial ovoid sonolucency in the fundus measures 7 x 2 x 8 mm and may reflect an early gestational sac however there is no definite surrounding. Gestational reaction. Mean sac diameter 6 mm corresponding to an estimated gestational age 5 weeks 2 days. A possible minute pole measures 2 mm, too small for estimation of gestational age. A yolk sac and cardiac activity are not identified. Endometrial thickness 10 mm including the sonolucency. A minute hypoechoic collection adjacent to the gestational sac measures 3 x 4 x 2 mm compatible with a tiny perigestational hemorrhage. Estimated delivery date (BALAJI): 02/24/2025 by mean sac diameter. Uterus: 8.5 x 5.1 x 4.8 cm, unremarkable. Cervix: Nabothian cyst. Right ovary: 2.2 x 1.9 x 1.7 cm (estimated volume 3.6 mL), unremarkable. Left ovary: 3.0 x 2.52.4 cm (estimated volume 9.7 mL). Likely corpus luteum measures 2.3 x 2.2 x 1.8 cm. Other: No visualized pelvic free fluid. US/Transvaginal w/Preg US IMPRESSION: 1. Suspect an extremely early intrauterine gestational sac with mean sac diameter 6 mm corresponding to 5 weeks 2 days and possible tiny pole measuring 2 mm, too small for estimation of gestationalage, and without detectable cardiac activity however this may be on account of tiny size. Recommend close clinical and imaging follow-up including serial beta hCG and pelvic ultrasound in 7-14 days for confirmation and to confirm viability. 2. Suspected minute 4 mm perigestational hemorrhage may account for reported abnormal bleeding. Attention on follow-up. 3. Additional description as above. Reading Location: [id number] CC: Dr. Maryann Bajwa DO; Dr. Thomas Salinas MD ~ Director Instrumentation: Signed [facility]12-31-2024 Evaluation note* Diagnosis Onset Date Resolution Status Admit Date Spontaneous acute [facility] 2023 1:50pm [facility] Work Phone: 1(162) 876-986912-31-2024 Evaluation note* Diagnosis Onset Date Resolution Status Admit Date Spontaneous inactive [facility] 2023 1:50pm [facility] Work Phone: 1(645) 698-918912-31-2024 Evaluation note* Diagnosis Onset Date Resolution Status Admit Date Spontaneous inactive [facility] 2023 1:50pm Former smoker acute July 20, 2024 1:53pm History of miscarriage, currently acute July 20 1:53pm acute July 20 1:53pm Supervision of high-risk acute July 20, 2024 1:53pm [facility] Work Phone: 1(540) 320-724604-13-2024 NoteHNO ID: [id number] Author: DIANA TREJO APRN.MANDEEP Service: ? Author Type: Nurse Practitioner Type: Progress Notes Filed: 07/27/2023 12:13 Note Text: [facility] Visit Patient Name: Hannah Hendricks Primary Care Physician: Thomas Salinas MD Service Date: 07/27/2023 SUBJECTIVE: Hannah is an pleasant otherwise well 33 year old female who is here today accompanied by her Mom for evaluation of symptom(s)/complaint(s) as below. Presenting with concern of persistent diarrhea since 07/24/2023. Traveled for work recently to [place]. Had salmon Saturday evening upon arrival to her hotel. Also enjoyed some lunch meat before embarking on her trip back home. Diarrhea started Saturday evening. Tells me she has had 37 episodes in 12 hours of diarrhea. Denies dizziness or lightheadedness. No recent antibiotic courses. She is not on any immunosuppression. Denies blood in the stool. Most concerned for ruling in/out C. difficile. Denies fevers or chills. Denies abdominal pain. Still has her gallbladder. Denies nausea or vomiting. Feels bloated with anything that she eats, and tells me that anything she eats or drinks comes right out. Pertinent medical history as below: PAST MEDICAL HISTORY Diagnosis Date NEGATIVE MEDICAL HISTORY ALLERGIES Penicillins, Shellfish, and Vancomycin MEDICATIONS Current Outpatient Medications Medication Sig methocarbamol (ROBAXIN-750) 750 mg tablet Take 1 tablet by mouth three times daily as needed. Acetaminophen 500 mg cap Take 1,000 mg by mouth every 6 hours as needed for pain. levonorgestrel (MIRENA) 20 mcg/24 hours (7 yrs) 52 mg IUD 1 Each by INTRAUTERINE route one time only. Placed September 2020 gabapentin (NEURONTIN) 300 mg capsule Take 1 capsule in the morning Take 1 capsule in the afternoon Take 2 capsules at bedtime oxyCODONE-acetaminophen (PERCOCET) 5-325 mg tablet Take 1 tablet by mouth every 8 hours as needed for pain (for pain.). (Patient not taking: Reported on 02/06/2023) docusate sodium (COLACE) 100 mg capsule Take 1 capsule by mouth twice daily. (Patient not taking: Reported on 02/06/2023) methylPREDNISolone (MEDROL) 16 mg tablet Take 16 mg by mouth once daily. (Patient not taking: Reported on 02/06/2023) POTASSIUM-99 ORAL Take by mouth as needed. (Patient not taking: Reported on 03/05/2022) No current facility-administered medications for this visit. SOCIAL HISTORY Social History Tobacco Use Smoking status: Former Packs/day: 0.80 Years: 5.00 Additional pack years: 0.00 Total pack years: 4.00 Types: Cigarettes Quit date: 10/13/2013 Years since quittin.7 Smokeless tobacco: Never Tobacco comments: Last e cig 2 weeks ago Substance Use Topics Alcohol use: Yes Comment: a glass of wine twice a week Drug use: No Problem-Focused ROS: Review of Systems Gastrointestinal: Positive for diarrhea. Negative for abdominal pain, nausea and vomiting. All other systems reviewed and are negative. OBJECTIVE: BP 117/69 Pulse 98 Temp 36.5 ?C (97.7 ?F) (Temporal) Resp 18 Wt 73 kg (161 lb) LMP 03/14/2022 (Approximate) BMI 26.79 kg/m? Physical Exam Vitals and nursing note reviewed. Constitutional: General: She is awake. She is not in acute distress. Appearance: Normal appearance. She is well-developed and well-groomed. She is not ill-appearing, toxic-appearing or diaphoretic. HENT: Head: Normocephalic and atraumatic. Right Ear: Hearing normal. Left Ear: Hearing normal. Nose: Nose normal. Mouth/Throat: Lips: [place]. Mouth: Mucous membranes are moist. Pharynx: Oropharynx is clear. Eyes: General: Lids are normal. Vision grossly intact. Extraocular Movements: Extraocular movements intact. Conjunctiva/sclera: Conjunctivae normal. Pupils: Pupils are equal, round, and reactive to light. Cardiovascular: Rate and Rhythm: Normal rate and regular rhythm. Heart sounds: Normal heart sounds. Pulmonary: Effort: Pulmonary effort is normal. Breath sounds: Normal breath sounds and air entry. Abdominal: General: Abdomen is flat. Bowel sounds are normal. Palpations: Abdomen is soft. Tenderness: There is no abdominal tenderness. Neurological: Mental Status: She is alert. Psychiatric: Behavior: Behavior is cooperative. Assessment and Plan: Hemodynamically stable. Well hydrated. Nontoxic. Reinforced if Hannah continues to have persistent symptoms despite our plan of care and intervention(s) over the next 48-72hrs, Hannah would benefit most from re-evaluation by her primary care team. Worsening symptoms within the next 48 hours would benefit most by re-evaluation in the emergency room. Hannah verbalizes understanding of plan of care today, which was discussed at length using shared decision making. Hannah has no further questions or concerns at this time. Hannah agrees we have a good plan in place for hopeful improvement/resolution of symptoms (more content not included)...[facility]04-13-2024 History of Present illness Narrative* Diana Trejo APRN.RESERVATIONS CLERK - 07/27/2023 11:51 AM EDT Images from the original note were not included. [facility] Visit Patient Name: Hannah Hendricks Primary Care Physician: Thomas Salinas MD Service Date: 07/27/2023 SUBJECTIVE: aHnnah is an pleasant otherwise well 33 year old female who is here today accompanied by her Mom for evaluation of symptom(s)/complaint(s) as below. Presenting with concern of persistent diarrhea since 07/24/2023. Traveled for work recently to [place]. Had salmon Saturday evening upon arrival to her hotel. Also enjoyed some lunch meat before embarking on her trip back home. Diarrhea started Saturday evening. Tells me she has had 37 episodes in 12 hours of diarrhea. Denies dizziness or lightheadedness. No recent antibiotic courses. She is not on any immunosuppression. Denies blood in the stool. Most concerned for ruling in/out C. difficile. Denies fevers or chills. Denies abdominal pain. Still has her gallbladder. Denies nausea or vomiting. Feels bloated with anything that she eats, and tells me that anything she eats or drinks comes right out. Pertinent medical history as below: PAST MEDICAL HISTORY Diagnosis Date NEGATIVE MEDICAL HISTORY ALLERGIES Penicillins, Shellfish, and Vancomycin MEDICATIONS Current Outpatient Medications Medication Sig methocarbamol (ROBAXIN-750) 750 mg tablet Take 1 tablet by mouth three times daily as needed. Acetaminophen 500 mg cap Take 1,000 mg by mouth every 6 hours as needed for pain. levonorgestrel (MIRENA) 20 mcg/24 hours (7 yrs) 52 mg IUD 1 Each by INTRAUTERINE route one time only. Placed September 2020 gabapentin (NEURONTIN) 300 mg capsule Take 1 capsule in the morning Take 1 capsule in the afternoonTake 2 capsules at bedtime oxyCODONE-acetaminophen (PERCOCET) 5-325 mg tablet Take 1 tablet by mouth every 8 hours as needed for pain (for pain.). (Patient not taking: Reported on 02/06/2023) docusate sodium (COLACE) 100 mg capsule Take 1 capsule by mouth twice daily. (Patient not taking: Reported on 02/06/2023) methylPREDNISolone (MEDROL) 16 mg tablet Take 16 mg by mouth once daily. (Patient not taking: Reported on 02/06/2023) POTASSIUM-99 ORAL Take by mouth as needed. (Patient not taking: Reported on 03/05/2022) No current facility-administered medications for this visit. SOCIAL HISTORY Social History Tobacco Use Smoking status: Former Packs/day: 0.80 Years: 5.00 Additional pack years: 0.00 Total pack years: 4.00 Types: Cigarettes Quit date: 10/13/2013 Years since quittin.7 Smokeless tobacco: Never Tobacco comments: Last e cig 2 weeks ago Substance Use Topics Alcohol use: Yes Comment: a glass of wine twice a week Drug use: No Problem-Focused ROS: Review of Systems Gastrointestinal: Positive for diarrhea. Negative for abdominal pain, nausea and vomiting. All other systems reviewed and are negative. OBJECTIVE: BP 117/69 Pulse 98 Temp 36.5 C (97.7 F) (Temporal) Resp 18 Wt 73 kg (161 lb) LMP 03/14/2022 (Approximate) BMI 26.79 kg/m Physical Exam Vitals and nursing note reviewed. Constitutional: General: She is awake. She is not in acute distress. Appearance: Normal appearance. She is well-developed and well-groomed. She is not ill-appearing, toxic-appearing or diaphoretic. HENT: Head: Normocephalic and atraumatic. Right Ear: Hearing normal. Left Ear: Hearing normal. Nose: Nose normal. Mouth/Throat: Lips: [place]. Mouth: Mucous membranes are moist. Pharynx: Oropharynx is clear. Eyes: General: Lids are normal. Vision grossly intact. Extraocular Movements: Extraocular movements intact. Conjunctiva/sclera: Conjunctivae normal. Pupils: Pupils are equal, round, and reactive to light. Cardiovascular: Rate and Rhythm: Normal rate and regular rhythm. Heart sounds: Normal heart sounds. Pulmonary: Effort: Pulmonary effort is normal. Breath sounds: Normal breath sounds and air entry. Abdominal: General: Abdomen is flat. Bowel sounds are normal. Palpations: Abdomen is soft. Tenderness: There is no abdominal tenderness. Neurological: Mental Status: She is alert. Psychiatric: Behavior: Behavior is cooperative. Assessment and Plan: Hemodynamically stable. Well hydrated. Nontoxic. Reinforced if Hannah continues to have persistent symptoms despite our plan of care and intervention(s) over the next 48-72hrs, Hannah would benefit most from re-evaluation by her primary care team. Worsening symptoms within the next 48 hours would benefit most by re-evaluation in the emergency room. Hannah verbalizes understanding of plan of care today, which was discussed at length using shared decision making. Hannah has no further questions or concerns at this time. Hannah agrees we have a good plan in place for hopeful improvement/resolution of symptoms based on the history provided to me and physical exam findings today. 1. Diarrhea, unspecified type - ICD9: 787.91, ICD10: R19.7 Suspect a viral gastroenteritis. Will send stool studies out of an abundance of caution. Diarrhea can be caused by many different conditions. The most common cause is viral illness. Food poisoning, bacterial infection, and reactions to medicine (especially antibiotics and antacids) may also be the cause. Most of the time diarrhea improves after 2-3 days of rest and oral fluid replacement. You should drink enough clear fluids (water, sodas, Gatorade) to prevent dehydration. Adults must drink at least 2-3 quarts daily. Solid foods and dairy products must be avoided until your illnessimproves; then only small amounts may be included in your diet for several days. Medicine to control cramping and diarrhea may be helpful. If you have a fever or blood in the stool, however, these medicines should be avoided as they may prolong your illness. Antibiotics can speedrecovery from diarrhea due to some bacterial infections, but may cause complications. Please be evaluated in the emergency department if you have fever, blood in the stool, vomiting, or become more dehydrated. - May use immodium in the mean time - ENTERIC BACTERIAL PANEL BY PCR - C. DIFFICILE PCR - OVA + PARA MICROSCOPIC If you were prescribed a medication, PLEASE allow the pharmacy 1-2 hours to prepare your prescription. If symptoms do not improve in 3-5 days, contact your Primary Care Provider. If symptoms progressively worsen, report to ER for evaluation. Patient verbalized understanding of plan. Signature: Diana Trejo APRN.CNP Date: 07/27/2023 Time: 11:51 AM documented in this encounterFair[facility]04-13-2024 Instructions* Patient Instructions* Diana Trejo APRN.CNP - 07/27/2023 11:43 AM EDT Assessment and Plan: Hemodynamically stable. Well hydrated. Nontoxic. Reinforced if Hannah continues to have persistent symptoms despite our plan of care and intervention(s) over the next 48-72hrs, Hannah would benefit most from re-evaluation by her primary care team. Worsening symptoms within the next 48 hours would benefit most by re-evaluation in the emergency room. Hannah verbalizes understanding of plan of care today, which was discussed at length using shared decision making. Hannah has no further questions or concerns at this time. Hannah agrees we have a good plan in place for hopeful improvement/resolution of symptoms based on the history provided to me and physical exam findings today. 1. Diarrhea, unspecified type - ICD9: 787.91, ICD10: R19.7 Suspect a viral gastroenteritis. Will send stool studies out of an abundance of caution. Diarrhea can be caused by many different conditions. The most common cause is viral illness. Food poisoning, bacterial infection, and reactions to medicine (especially antibiotics and antacids) may also be the cause. Most of the time diarrhea improves after 2-3 days of rest and oral fluid replacement. You should drink enough clear fluids (water, sodas, Gatorade) to prevent dehydration. Adults must drink at least 2-3 quarts daily. Solid foods and dairy products must be avoided until your illnessimproves; then only small amounts may be included in your diet for several days. Medicine to control cramping and diarrhea may be helpful. If you have a fever or blood in the stool, however, these medicines should be avoided as they may prolong your illness. Antibiotics can speedrecovery from diarrhea due to some bacterial infections, but may cause complications. Please be evaluated in the emergency department if you have fever, blood in the stool, vomiting, or become more dehydrated. - May use immodium in the mean time - ENTERIC BACTERIAL PANEL BY PCR - C. DIFFICILE PCR - OVA + PARA MICROSCOPIC If you were prescribed a medication, PLEASE allow the pharmacy 1-2 hours to prepare your prescription. If symptoms do not improve in 3-5 days, contact your Primary Care Provider. If symptoms progressively worsen, report to ER for evaluation. Patient verbalized understanding of plan. Please follow up with Primary Care Provider or with a Specialist if consulted for current condition. Go to the ER immediately if you have any of the following symptoms: Chest pain, shortness of breath, severe headache, high fever, nausea, vomiting, abdominal pain, dizziness/light headedness, feeling like you are going to pass out, weakness, or for any other new or worsening symptoms. documented in this encounterFairfield Medical Center10-25-2023 NoteHNO ID: [id number] Author: Konstantin Kirkland MD Service: ? Author Type: Physician Type: Progress Notes Filed: 02/08/2023 7:04 AM Note Text: SPINE SURGERY FOLLOW UP This is an in-person visit. SERVICE DATE: 02/05/2023 SURGERY DATE: 12/19/2021 AND 03/20/2022 R L4/5 microdiscectomy and redo microdiscectomy Hannah Hendricks is seen for 10 month post operative follow up. She has been experiencing pain on her left side from her lower back to the knee, including the groin and anterior thigh. It is aggravated by walking and standing. She has been having flare ups consistently. She reports that the most painful episode was in August 2022, which she describes as debilitating and disabling. She has been visiting with a chiropractor weekly since August 2022. This has been helpful. She was discontinued from physical therapy in December 2022 after 19 visits. PAIN EVALUATION 02/03/2023 222 02/06/2023 0809 Pain Level: 3 2 Pain Location: Back-Lower -- Description: Burning;Stabbing;Stiffness;Tightness;Tingling -- Duration Units: Months -- Frequency: Continuous Continuous Intervention/Comfort measure: Medication;Reposition;Relaxation;Education;Exercise;Heat;Imagery;Massage;Pi llow support;Positioning;Therapeutic techniques-CPRP -- Pain Radiation: lower back to the left knee. Aggravating Factors: Standing, Walking Alleviating Factors: Medications, rest, chiropractor ANTIPLATELET OR ANTICOAGULATION STATUS: No Patient Entered Questionnaires Spine Questions 05/27/2022 07/30/2022 02/03/2023 Pain Location: Lower back Lower back Lower back Pain Duration: - 6 months - 1 year 6 months - 1 year Pain over last 6 months: - Every day or nearly every day in the past 6 months Every day or nearly every day in the past 6 months Symptoms from neck/cervical spine: No No No Employment Status: Disabled due to back pain, permanently or temporarily - Working now Off work 1 month or more due to back/neck pain: Yes - - Applied for/receive disability/WC due to low back/neck pain Yes - - Involved in law suit/legal claim: - - No Spine Red Flags 10/10/2021 Any type of cancer: No Unexplained fever: No Bowel or bladder disfunction: No Unintentional weight loss: No Osteoporosis: No Low Back Pain Questionnaires 04/20/2022 STarT Risk Score 3 (Medium risk for prolonged disability) STarT Distress Score 2 STarT Total Score 4 PROMIS Score Percentiles Physical Health 11/28/2022 12/31/2022 02/03/2023 Physical Function Percentile 21* 21* 21* Sleep Percentile - - 54 Fatigue Percentile - - 58 Pain Interference Percentile - - 4 PROMIS SOCIAL ROLE SCORE 05/27/2022 07/30/2022 02/03/2023 Social Role Satisfaction Percentile 14 58 31 PROMIS Global Health Scale 05/27/2022 08/29/2022 11/28/2022 Physical Health Percentile 15 10 31 Mental Health Percentile 34 26* 43 Percentiles provide an indication of how the patient's score ranks in relation to the general population. Higher percentile rankings indicate better function/quality of life. 50th percentile is the average of the general population and indicates half of respondents had a worse score. Depression Screening: PHQ-9 05/27/2022 07/30/2022 02/03/2023 Score 2 3 2 PHQ-9 Self-harm Question 05/27/2022 07/30/2022 02/03/2023 Thoughts that you would be better off , or of hurting yourself in some way 0 0 0 PHQ-9 Self-Harm (Item 9) response options: 0 Not at all 1 Several days 2 More than half the days 3 Nearly every day PHQ-9 Levels: 0-4 No to mild depression 5-9 Mild depression 10-14 Moderate depression 15-19 Moderately severe depression 20-27 Severe depression PHYSICAL EXAM: BP 106/73 Pulse 101 Ht 165.1 cm (5' 5) Wt 73.9 kg (163 lb) LMP 03/14/2022 (Approximate) SpO2 100% BMI 27.12 kg/m? Oriented x3 PERRL FS Motor: UE D 5/5, B 5/5, T 5/5, G 5/5, HI 5/5 LE HF 5/5, KE 5/5, DF 5/5, PF 5/5, EHL 5/5 Incision C/D/I DATA REVIEW [facility] records independently reviewed Images independently reviewed with the patient ASSESSMENT/PLAN (M54.16) Radiculopathy, lumbar region (primary encounter diagnosis) (M48.062) Spinal stenosis of lumbar region with neurogenic claudication 1. Imaging: Lumbar MRI Without Contrast Postop recurring or worsening symptoms 2. Follow up: Following above The majority of the visit was spent counseling and/or coordinating care for the patient. The patient was counseled regarding lumbar radiculopathy. Total face to face time was 20 minutes. I agree with the Chief Complaint, ROS, and Past Histories independently gathered by the clinical client support analyst and the remaining scribed note accurately describes my personal service to the patient. The documentation for this note was completed by Grace Mojica acting as scribe for Konstantin Kirkland MD. February 06, 2023 8:50 AM. I agree with the operative note independently gathered by the clinical client support analyst and the remaining scribed note accura (more content not included)...[id number] History of Present illness Narrative* Konstantin Kirkland MD - 02/06/2023 8:40 AM EDT Images from the original note were not included. SPINE SURGERY FOLLOW UP This is an in-person visit. SERVICE DATE: 02/05/2023 SURGERY DATE: 12/19/2021 & 03/20/2022 R L4/5 microdiscectomy and redo microdiscectomy Hannah Hendricks is seen for 10 month post operative follow up. She has been experiencing pain on her left side from her lower back to the knee, including the groin and anterior thigh. It is aggravated by walking and standing. She has been having flare ups consistently. She reports that the most painful episode was in August 2022, which she describes as debilitating and disabling. She has been visiting with a chiropractor weekly since August 2022. This has been helpful. She was discontinued from physical therapy in December 2022 after 19 visits. PAIN EVALUATION 02/03/2023222802/06/2023 0839 Pain Level: 3 2 Pain Location: Back-Lower -- Description: Burning;Stabbing;Stiffness;Tightness;Tingling -- Duration Units: Months -- Frequency: Continuous Continuous Intervention/Comfort measure: Medication;Reposition;Relaxation;Education;Exercise;Heat;Imagery;Massage;Pillow support;Positioning;Therapeutic techniques-CPRP -- Pain Radiation: lower back to the left knee. Aggravating Factors: Standing, Walking Alleviating Factors: Medications, rest, chiropractor ANTIPLATELET OR ANTICOAGULATION STATUS: No Patient Entered Questionnaires Spine Questions 05/27/2022 07/30/2022 02/03/2023 Pain Location: Lower back Lower back Lower back Pain Duration: - 6 months - 1 year 6 months - 1 year Pain over last 6 months: - Every day or nearly every day in the past 6 months Every day or nearly every day in the past 6 months Symptoms from neck/cervical spine: No No No Employment Status: Disabled due to back pain, permanently or temporarily - Working now Off work 1 month or more due to back/neck pain: Yes - - Applied for/receive disability/WC due to low back/neck pain Yes - - Involved in law suit/legal claim: - - No Spine Red Flags 10/10/2021 Any type of cancer: No Unexplained fever: No Bowel or bladder disfunction: No Unintentional weight loss: No Osteoporosis: No Low Back Pain Questionnaires 04/20/2022 STarT Risk Score 3 (Medium risk for prolonged disability) STarT Distress Score 2 STarT Total Score 4 PROMIS Score Percentiles Physical Health 11/28/2022 12/31/2022 02/03/2023 Physical Function Percentile 21* 21* 21* Sleep Percentile - - 54 Fatigue Percentile - - 58 Pain Interference Percentile - - 4 PROMIS SOCIAL ROLE SCORE 05/27/2022 07/30/2022 02/03/2023 Social Role Satisfaction Percentile 14 58 31 PROMIS Global Health Scale 05/27/2022 08/29/2022 11/28/2022 Physical Health Percentile 15 10 31 Mental Health Percentile 34 26* 43 Percentiles provide an indication of how the patient's score ranks in relation to the general population. Higher percentile rankings indicate better function/quality of life. 50th percentile is the average of the general population and indicates half of respondents had a worse score. Depression Screening: PHQ-9 05/27/2022 07/30/2022 02/03/2023 Score 2 3 2 PHQ-9 Self-harm Question 05/27/2022 07/30/2022 02/03/2023 Thoughts that you would be better off , or of hurting yourself in some way 0 0 0 PHQ-9 Self-Harm (Item 9) response options: 0 Not at all 1 Several days 2 More than half the days 3 Nearly every day PHQ-9 Levels: 0-4 No to mild depression 5-9 Mild depression 10-14 Moderate depression 15-19 Moderately severe depression 20-27 Severe depression PHYSICAL EXAM: BP 106/73 Pulse 101 Ht 165.1 cm (5' 5) Wt 73.9 kg (163 lb) LMP 03/14/2022 (Approximate) SpO2 100% BMI 27.12 kg/m Oriented x3 PERRL FS Motor: UE D 5/5, B 5/5, T 5/5, G 5/5, HI 5/5 LE HF 5/5, KE 5/5, DF 5/5, PF 5/5, EHL 5/5 Incision C/D/I DATA REVIEW [facility] records independently reviewed Images independently reviewed with the patient ASSESSMENT/PLAN (M54.16) Radiculopathy, lumbar region (primary encounter diagnosis) (M48.062) Spinal stenosis of lumbar region with neurogenic claudication 1. Imaging: Lumbar MRI Without Contrast Postop recurring or worsening symptoms 2. Follow up: Following above The majority of the visit was spent counseling and/or coordinating care for the patient. The patient was counseled regarding lumbar radiculopathy. Total face to face time was 20 minutes. I agree with the Chief Complaint, ROS, and Past Histories independently gathered by the clinical client support analyst and the remaining scribed note accurately describes my personal service to the patient. The documentation for this note was completed by Grace Mojica acting as scribe for Konstantin Kirkland MD. February 06, 2023 8:50 AM. I agree with the operative note independently gathered by the clinical client support analyst and the remaining scribed note accurately describes my personal service to the patient. SIGNATURE: Konstantin Kirkland MD PATIENT NAME: Hannah Hendricks DATE: February 06, 2023 TIME: 8:49 AM PAGER: documented in [facility]23 NoteHNO ID: [id number] Author: Nehemias Suarez PT, DPT Service: ? Author Type: Physical Therapist Type: Progress Notes Filed: 12/31/2022 7:12 PM Note Text: Episode Visit Count: 19 Therapist That Will Accept/Oversee The Plan Of Care: Nehemias Suarez Start of Care Date: 04/20/22 Onset Date: 03/20/22 Patient Identified by Name and Date of : Yes REHABILITATION AND SPORTS THERAPY PHYSICAL THERAPY DISCONTINUANCE OF CARE PLAN OF CARE UPDATE: Assessment: Hannah Hendricks is discontinued from Physical Therapy services due to mild progress towards therapy goals and completion of POC. Overall, pt has experienced an improvement in sxs since starting therapy as indicated by decreased pain. Pt's primary sxs are located to B/L SI region, which may be attributed to chronic SI dysfunction vs disc herniation surgery March 2022. Pt has demonstrated good gains in R myotomal strength, posterior chain extensibility, and lumbopelvic stability/motor control since starting therapy, however pt did perform below he previous best during this session. 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 Patient was seen for 19 visits from Start of Care Date: 04/20/22 to 12/31/2022 and treatment included: Therapeutic exercise and Manual therapy. Goals for Episode of Care: created on 04/20/22, updated 05/21/2022, updated 06/18/2022, updated 07/16/2022, updated 08/15/2022, updated 09/12/2022, updated 10/24/2022, updated 12/31/2022 Patient will demonstrate pain free trunk AROM in all planes---Achieved -Patient will perform mobility tasks without pain/sxs---Achieved -Patient will improve R LE myotome strength to 5/5---Partially Achieved -patient will improve B/L FMS ASLR to a score > 2---Partially Achieved (R - not achieved) [place] in home exercise program.---Achieved Patient will decrease pain rating by 2 points to meet minimal clinical important difference for numeric pain rating scale.---Achieved -Patient will demonstrate a functional half kneel B/L---Not Achieved -Patient will demonstrate a functional bird dog B/L---Not Achieved -Patient will perform a prone plank for > 60 seconds without movement dysfunction---Partially Achieved Patient Goals: decrease pain, improve posteiror chain extensibility, improve tolerance for mobility tasks, improve tolerance for exercise---Partially Achieved SUBJECTIVE: Pt states that she did have a few flare ups since last visit, Pt states that it occured following increased walking and standing. . Pt states that sxs resolved with rest and neonatal intensive care nurse. Pt states that sxs are located to SI joint region B/L primarily, pt states that she had some radiation of sxs to either LE.. Pain: Pain Pain Level: 4 Pain Location: Back Description: Aching Frequency: Intermittent Post Treatment Pain Post Treatment Pain Level: No Change PROMIS Scales Higher is Better 12/31/2022 11/28/2022 10/23/2022 Phys Func - Score 42 (mild dysfunction) 42 (mild dysfunction) 42 (mild dysfunction) Phys Func - Percentile 21 % 21 % 21 % Self-Eff Symptom - Score 44 (Average) 48 (Average) 48 (Average) Self-Eff Symptom - Percentile 27 % 42 % 42 % T-scores: mean of general population = 50. 5 points is clinically meaningfully difference Percentiles provide an indication of how the patient's score ranks in relation to the general population. Higher percentile rankings indicate better function/quality of life. 50th percentile is the average of the general population and indicates half of respondents had a worse score. OBJECTIVE MEASURES WITH LEVEL OF FUNCTION: LE Flexibility R SLR Flexibility: passive ~ 40, FMS 1 L SLR Flexibility: passive ~55, FMS 2 LE Strength R Ankle Dorsiflexion (L4): 4/5 R Great Toes Extension (L5, S1): 4/5 Functional Strength Functional Strength: plank: mild lumbopelvic rotation, increased shaking, mild increase in lumbopelvic extension, 60 seconds Balance Static Standing Balance Comments: half kneel: DN B/L, bird dog: R - DN L - FN TREATMENT: Therapeutic Exercise: 1: reassessment performed 2: *half kneel, x 60 sec ea 3: *bird dog, x 10 ea 4: *sciatic nerve flossing, review 5: *prone plank, x 60 sec review 6: *half kneel chop/lift, review 7: *tall kneel, hip hinge, review 8: *modified plank, review 9: * bug, review Skilled Intervention: Patient was educated in proper exercise technique and purpose for exercises. Reviewed and educated patient on additions/changes for home exercise program as above (*). Billing Therapeutic Exercise Treatment Minutes: 35 Skilled Treatment Time Minutes (timed and untimed codes): 35 Total Session Time (minutes): 35 Session Start Time : 1800 Session Stop Time : 183 Nehemias Suarez PT, [facility]09-18-2023 History of Present illness Narrative* Nehemias Suarez PT, [facility] - 12/31/2022 6:01 PM EDT Episode Visit Count: 19 Therapist That Will Accept/Oversee The Plan Of Care: Nehemias Suarez Start of Care Date: 04/20/22 Onset Date: 03/20/22 Patient Identified by Name and Date of : Yes REHABILITATION AND SPORTS THERAPY PHYSICAL THERAPY DISCONTINUANCE OF CARE PLAN OF CARE UPDATE: Assessment: Hannah Hendricks is discontinued from Physical Therapy services due to mild progress towards therapy goals and completion of POC. Overall, pt has experienced an improvement in sxs sincestarting therapy as indicated by decreased pain. Pt's primary sxs are located to B/L SI region, which may be attributed to chronic SI dysfunction vs disc herniation surgery March 2022. Pt has demonstrated good gains in R myotomal strength, posterior chain extensibility, and lumbopelvic stability/motor control since starting therapy, however pt did perform below he previous best during this session. Pt's HEP and importance of HEP was reviewed in detail this date to promote nursing home therapeutic gains. Patient was seen for 19 visits from Start of Care Date: 04/20/22 to 12/31/2022 and treatment included: Therapeutic exercise and Manual therapy. Goals for Episode of Care: created on 04/20/22, updated 05/21/2022, updated 06/18/2022, updated 07/16/2022, updated 08/15/2022, updated 09/12/2022, updated 10/24/2022, updated 12/31/2022 Patient will demonstrate pain free trunk AROM in all planes---Achieved -Patient will perform mobility tasks without pain/sxs---Achieved -Patient will improve R LE myotome strength to 5/5---Partially Achieved -patient will improve B/L FMS ASLR to a score > 2---Partially Achieved (R - not achieved) [place] in home exercise program.---Achieved Patient will decrease pain rating by 2 points to meet minimal clinical important difference for numeric pain rating scale.---Achieved -Patient will demonstrate a functional half kneel B/L---Not Achieved -Patient will demonstrate a functional bird dog B/L---Not Achieved -Patient will perform a prone plank for > 60 seconds without movement dysfunction---Partially Achieved Patient Goals: decrease pain, improve posteiror chain extensibility, improve tolerance for mobilitytasks, improve tolerance for exercise---Partially Achieved SUBJECTIVE: Pt states that she did have a few flare ups since last visit, Pt states that it occuredfollowing increased walking and standing. . Pt states that sxs resolved with rest and neonatal intensive care nurse. Pt states that sxs are located to SI joint region B/L primarily, pt states that she had some radiation of sxs to either LE.. Pain: Pain Pain Level: 4 Pain Location: Back Description: Aching Frequency: Intermittent Post Treatment Pain Post Treatment Pain Level: No Change PROMIS Scales Higher is Better 12/31/2022 11/28/2022 10/23/2022 Phys Func - Score 42 (mild dysfunction) 42 (mild dysfunction) 42 (mild dysfunction) Phys Func - Percentile 21 % 21 % 21 % Self-Eff Symptom - Score 44 (Average) 48 (Average) 48 (Average) Self-Eff Symptom - Percentile 27 % 42 % 42 % T-scores: mean of general population = 50. 5 points is clinically meaningfully difference Percentiles provide an indication of how the patient's score ranks in relation to the general population. Higher percentile rankings indicate better function/quality of life. 50th percentile is the average of the general population and indicates half of respondents had a worse score. OBJECTIVE MEASURES WITH LEVEL OF FUNCTION: LE Flexibility R SLR Flexibility: passive ~ 40, FMS 1 L SLR Flexibility: passive ~55, FMS 2 LE Strength R Ankle Dorsiflexion (L4): 4/5 R Great Toes Extension (L5, S1): 4/5 Functional Strength Functional Strength: plank: mild lumbopelvic rotation, increased shaking, mild increase in lumbopelvic extension, 60 seconds Balance Static Standing Balance Comments: half kneel: DN B/L, bird dog: R - DN L - FN TREATMENT: Therapeutic Exercise: 1: reassessment performed 2: *half kneel, x 60 sec ea 3: *bird dog, x 10 ea 4: *sciatic nerve flossing, review 5: *prone plank, x 60 sec review 6: *half kneel chop/lift, review 7: *tall kneel, hip hinge, review 8: *modified plank, review 9: * bug, review Skilled Intervention: Patient was educated in proper exercise technique and purpose for exercises. Reviewed and educated patient on additions/changes for home exercise program as above (*). Billing Therapeutic Exercise Treatment Minutes: 35 Skilled Treatment Time Minutes (timed and untimed codes): 35 Total Session Time (minutes): 35 Session Start Time : 1800 Session Stop Time : 1835 Nehemias Suarez PT, DPT documented in this encounterFair[facility]08-16-2023 NoteHNO ID: [id number] Author: Nehemias Suarez PT, [facility] Service: ? Author Type: Physical Therapist Type: Progress Notes Filed: 11/29/2022 7:40 AM Note Text: Episode Visit Count: 18 Therapist That Will Accept/Oversee The Plan Of Care: Nehemias Suarez Start of Care Date: 04/20/22 Onset Date: 03/20/22 Patient Identified by Name and Date of : Yes REHABILITATION AND SPORTS THERAPY PHYSICAL THERAPY PROGRESS REPORT PLAN OF CARE UPDATE: Assessment: Hannah Hendricks demonstrates significant improvement in ADLs, mobility, recreational activities, and house/yard work . She has progressed toward goals. Patient continues to present with impairments in core strength, trunk mobility, movement patterns, and posterior chain extensibility that interfere with bending, lifting, and twisting.. Current prognosis is Good due to: current objective clinical presentation . Goals for Episode of Care: created on 04/20/22, updated 05/21/2022, updated 06/18/2022, updated 07/16/2022, updated 08/15/2022, updated 09/12/2022, updated 10/24/2022 Patient will demonstrate pain free trunk AROM in all planes---Achieved -Patient will perform mobility tasks without pain/sxs---Achieved -Patient will improve R LE myotome strength to 5/5---Achieved -patient will improve B/L FMS ASLR to a score > 2---Partially Achieved (R - not achieved) [place] in home exercise program.---Achieved Patient will decrease pain rating by 2 points to meet minimal clinical important difference for numeric pain rating scale.---Achieved -Patient will demonstrate a functional half kneel B/L---Achieved -Patient will demonstrate a functional bird dog B/L---Achieved -Patient will perform a prone plank for > 60 seconds without movement dysfunction---Not Achieved Patient Goals: decrease pain, improve posteiror chain extensibility, improve tolerance for mobility tasks, improve tolerance for exercise---Achieved Planned Interventions, Frequency, and Duration: 1x/month, One month Total Number of Visits Planned: 1 Patient to be seen for Therapeutic exercise ([id number]), Neuromuscular re-education ([id number]), Manual therapy (49743), Therapeutic activities (75763), Self-shelter management ([id number]), Patient/Family/Caregiver Education SUBJECTIVE: Pt states that she has been good. Pt notes a little bit of an issue a few weeks ago, went to chiropractor and feels like she is back in alignment. Pt states that she has some discomfort to tail bone/belt line when she planks. Pt reports that recent flare up limited her adherence to HEP but she is active with beach body classes and riding her back. Pt also notes increased activity with yard work and family activities. Pt states that repeated bending and lifting, cuases pain to L SI>. Functional Limitation Comments: bending, lifting, twisting Pain: Pain Pain Level: 1 Pain Location: Back Description: Aching Frequency: Intermittent Post Treatment Pain Post Treatment Pain Level: (decreased tightness to low back) PROMIS Scales Higher is Better 11/28/2022 10/23/2022 09/12/2022 Phys Func - Score 42 (mild dysfunction) 42 (mild dysfunction) - Phys Func - Percentile 21 % 21 % - Self-Eff Symptom - Score 48 (Average) 48 (Average) 44 (Average) Self-Eff Symptom - Percentile 42 % 42 % 27 % T-scores: mean of general population = 50. 5 points is clinically meaningfully difference Percentiles provide an indication of how the patient's score ranks in relation to the general population. Higher percentile rankings indicate better function/quality of life. 50th percentile is the average of the general population and indicates half of respondents had a worse score. OBJECTIVE MEASURES WITH LEVEL OF FUNCTION: Lumbar Spine AROM Lumbar Flexion: Minimal limitation Lumbar Extension: Minimal limitation Lumbar R Side-Bend: Normal Lumbar L Side-Bend: Normal Lumbar R Rotation: Normal Lumbar L Rotation: Normal LE Flexibility R SLR Flexibility: FMS 1/2, passive ~40 L SLR Flexibility: FMS 2, passive LE Strength R Ankle Dorsiflexion (L4): 5/5 R Great Toes Extension (L5, S1): 5/5 Balance Static Standing Balance Comments: half knee: FN B/L, bird dog: FN B/L, plank: slight lumbopelvic rotation, decreased endurance TREATMENT: Therapeutic Exercise: 1: reassessment performed 2: *foam roll to hamstring, x 45 sec ea 3: *foam roll to glutes, x 45 sec ea 4: *foam roll to gastroc-soleus, x 45 sec ea 5: *modified plank, x 30 sec 6: *prone plank, x 20 seconds 7: *half kneel, chop/lift, review 8: *bird dog, review 9: *tall kneel, hiphinge, review Skilled Intervention: Patient was educated in proper exercise technique and purpose for exercises. Reviewed and educated patient on additions/changes for home exercise program as above (*). Manual Therapy: 1: IASTM to B/L lumbar paraspinals, iliac crest Skilled Intervention: Manual skills to improve joint mobility, ROM, and decrease pain. Utilized (more content not included)...[id number] History of Present illness Narrative* Nehemias Suarez, PT, DPT - 11/28/2022 6:02 PM EDT Episode Visit Count: 18 Therapist That Will Accept/Oversee The Plan Of Care: Nehemias Suarez Start of Care Date: 04/20/22 Onset Date: 03/20/22 Patient Identified by Name and Date of : Yes REHABILITATION AND SPORTS THERAPY PHYSICAL THERAPY PROGRESS REPORT PLAN OF CARE UPDATE: Assessment: Hannah Hendricks demonstrates significant improvement in ADLs, mobility, recreational activities,and house/yard work . She has progressed toward goals. Patient continues to present with impairments in core strength, trunk mobility, movement patterns, and posterior chain extensibility that interfere with bending, lifting, and twisting.. Current prognosis is Good due to: current objective clinical presentation . Goals for Episode of Care: created on 04/20/22, updated 05/21/2022, updated 06/18/2022, updated 07/16/2022, updated 08/15/2022, updated 09/12/2022, updated 10/24/2022 Patient will demonstrate pain free trunk AROM in all planes---Achieved -Patient will perform mobility tasks without pain/sxs---Achieved -Patient will improve R LE myotome strength to 5/5---Achieved -patient will improve B/L FMS ASLR to a score > 2---Partially Achieved (R - not achieved) [place] in home exercise program.---Achieved Patient will decrease pain rating by 2 points to meet minimal clinical important difference for numeric pain rating scale.---Achieved -Patient will demonstrate a functional half kneel B/L---Achieved -Patient will demonstrate a functional bird dog B/L---Achieved -Patient will perform a prone plank for > 60 seconds without movement dysfunction---Not Achieved Patient Goals: decrease pain, improve posteiror chain extensibility, improve tolerance for mobilitytasks, improve tolerance for exercise---Achieved Planned Interventions, Frequency, and Duration: 1x/month, One month Total Number of Visits Planned: 1 Patient to be seen for Therapeutic exercise (86602), Neuromuscular re-education (13262), Manual therapy (83181), Therapeutic activities (36627), Self-shelter management (68603), Patient/Family/Caregiver Education SUBJECTIVE: Pt states that she has been good. Pt notes a little bit of an issue a few weeks ago, went to chiropractor and feels like she is back in alignment. Pt states that she has some discomfortto tail bone/belt line when she planks. Pt reports that recent flare up limited her adherence to HEP but she is active with beach body classes and riding her back. Pt also notes increased activity with yard work and family activities. Pt states that repeated bending and lifting, cuases pain to L SI>. Functional Limitation Comments: bending, lifting, twisting Pain: Pain Pain Level: 1 Pain Location: Back Description: Aching Frequency: Intermittent Post Treatment Pain Post Treatment Pain Level: (decreased tightness to low back) PROMIS Scales Higher is Better 11/28/2022 10/23/2022 09/12/2022 Phys Func - Score 42 (mild dysfunction) 42 (mild dysfunction) - Phys Func - Percentile 21 % 21 % - Self-Eff Symptom - Score 48 (Average) 48 (Average) 44 (Average) Self-Eff Symptom - Percentile 42 % 42 % 27 % T-scores: mean of general population = 50. 5 points is clinically meaningfully difference Percentiles provide an indication of how the patient's score ranks in relation to the general population. Higher percentile rankings indicate better function/quality of life. 50th percentile is the average of the general population and indicates half of respondents had a worse score. OBJECTIVE MEASURES WITH LEVEL OF FUNCTION: Lumbar Spine AROM Lumbar Flexion: Minimal limitation Lumbar Extension: Minimal limitation Lumbar R Side-Bend: Normal Lumbar L Side-Bend: Normal Lumbar R Rotation: Normal Lumbar L Rotation: Normal LE Flexibility R SLR Flexibility: FMS 1/2, passive ~40 L SLR Flexibility: FMS 2, passive LE Strength R Ankle Dorsiflexion (L4): 5/5 R Great Toes Extension (L5, S1): 5/5 Balance Static Standing Balance Comments: half knee: FN B/L, bird dog: FN B/L, plank: slight lumbopelvic rotation, decreased endurance TREATMENT: Therapeutic Exercise: 1: reassessment performed 2: *foam roll to hamstring, x 45 sec ea 3: *foam roll to glutes, x 45 sec ea 4: *foam roll to gastroc-soleus, x 45 sec ea 5: *modified plank, x 30 sec 6: *prone plank, x 20 seconds 7: *half kneel, chop/lift, review 8: *bird dog, review 9: *tall kneel, hiphinge, review Skilled Intervention: Patient was educated in proper exercise technique and purpose for exercises. Reviewed and educated patient on additions/changes for home exercise program as above (*). Manual Therapy: 1: IASTM to B/L lumbar paraspinals, iliac crest Skilled Intervention: Manual skills to improve joint mobility, ROM, and decrease pain. Utilized anatomy knowledge of the therapist, and assessment of patient's response to intervention. Billing Therapeutic Exercise Treatment Minutes: 27 Manual TherapyTreatment Minutes: 15 Total Treatment Time Minutes (timed/untimed): 42 Session Start Time : 180 Session Stop Time : 1842 Nehemias Suarez PT, DPT documented [facility] NoteHNO ID: [id number] Author: Nehemias Suarez PT, DPT Service: ? Author Type: Physical Therapist Type: Progress Notes Filed: 10/24/2022 7:13 PM Note Text: Episode Visit Count: 17 Therapist That Will Accept/Oversee The Plan Of Care: Nehemias Suarez Start of Care Date: 04/20/22 Onset Date: 03/20/22 Patient Identified by Name and Date of : Yes REHABILITATION AND SPORTS THERAPY PHYSICAL THERAPY PROGRESS REPORT PLAN OF CARE UPDATE: Assessment: Hannah Hendricks demonstrates good progress towards therapy goals over course of POC. Pt's radicular sxs continue to be well controlled/non existent, pt continues to have L SI joint pain but is rated as mild (1/10). Pt has pain free trunk AROM in all planes, mild-moderate limitations persist in sagittal plane. Pt has improved B/L posterior chain extensibility, R remains more limited than L. Pt has improved core stability as indicated by neutral alignment with half kneel and bird dog B/L. Pt does demonstrate movement impairments with higher level core activities such as plank and double leg raise. Pt will benefit from continued skilled therapy for functional optimization to decrease future occurrences of low back pain and improve tolerance for lifting/labor intensive tasks. . Current prognosis is Good due to: current objective clinical presentation . Goals for Episode of Care: created on 04/20/22, updated 05/21/2022, updated 06/18/2022, updated 07/16/2022, updated 08/15/2022, updated 09/12/2022, updated 10/24/2022 Patient will demonstrate pain free trunk AROM in all planes---Achieved -Patient will perform mobility tasks without pain/sxs---Achieved -Patient will improve R LE myotome strength to 5/5---Achieved -patient will improve B/L FMS ASLR to a score > 2---Partially Achieved (R - not achieved) [place] in home exercise program.---Achieved Patient will decrease pain rating by 2 points to meet minimal clinical important difference for numeric pain rating scale.---Achieved -Patient will demonstrate a functional half kneel B/L---Achieved -Patient will demonstrate a functional bird dog B/L---Achieved -Patient will perform a prone plank for > 60 seconds without movement dysfunction---Not Achieved Patient Goals: decrease pain, improve posteiror chain extensibility, improve tolerance for mobility tasks, improve tolerance for exercise---Achieved Planned Interventions, Frequency, and Duration: 1x/month, One month Total Number of Visits Planned: 1 Patient to be seen for Therapeutic exercise (59594), Neuromuscular re-education (27501), Manual therapy (19616), Therapeutic activities (32958), Self-shelter management (88262), Patient/Family/Caregiver Education SUBJECTIVE: Patient Reason for Visit: Pt states that she has been doing pretty good. Pt states that her L SI joint pain is improving. Pt has continued to f/u with chiro every few weeks. Pt states that she feels pulling to L side with bending forward. Pt states that she has been very active with walking and around the house. Pt states that she has kept up with stretching but has not done a ton with weights.. Pain: Pain Pain Level: 1 (worst pain over last week: 04/24) Pain Location: Back Description: Aching Frequency: Intermittent Post Treatment Pain Post Treatment Pain Level: No Change PROMIS Scales Higher is Better 10/23/2022 09/12/2022 08/29/2022 Phys Func - Score 42 (mild dysfunction) - 29 (severe dysfunction) Phys Func - Percentile 21 % - 2 % Self-Eff Symptom - Score 48 (Average) 44 (Average) - Self-Eff Symptom - Percentile 42 % 27 % - T-scores: mean of general population = 50. 5 points is clinically meaningfully difference Percentiles provide an indication of how the patient's score ranks in relation to the general population. Higher percentile rankings indicate better function/quality of life. 50th percentile is the average of the general population and indicates half of respondents had a worse score. OBJECTIVE MEASURES WITH LEVEL OF FUNCTION: Lumbar Spine AROM Lumbar Flexion: Minimal limitation Lumbar Extension: Moderate limitation Lumbar R Side-Bend: Normal Lumbar L Side-Bend: Normal Lumbar R Rotation: Normal Lumbar L Rotation: Normal LE Flexibility R SLR Flexibility: FMS 1/2, passive ~40 L SLR Flexibility: FMS 2, passive LE Strength R Ankle Dorsiflexion (L4): 5/5 R Great Toes Extension (L5, S1): 5/5 Balance Static Standing Balance Comments: half knee: FN B/L, bird dog: FN B/L, plank: increased pelvic rotation/lumbar extension, increased pain TREATMENT: Therapeutic Exercise: 1: reassessment performed 2: plank, x 10 sec, increased pain 3: *modified plank, 2 x 30 sec increased L SI joint pain 4: bird dog, 2 x 10 5: *bird dog, x 10 ea, #red 6: lift, ~half depth, x 10 7: * lift, #15, 2 x 15 8: *tall kneel, overhead front raise, med ball #3, x 15 9: *prone lying, review 10: *prone prop, review 11: *prone pr (more content not included)...[id number] NoteHNO ID: [id number] Author: Nehemias Suarez, PT, DPT Service: ? Author Type: Physical Therapist Type: Progress Notes Filed: 09/13/2022 10:38 AM Note Text: Episode Visit Count: 16 Therapist That Will Accept/Oversee The Plan Of Care: Nehemias Suarez Start of Care Date: 04/20/22 Onset Date: 03/20/22 Patient Identified by Name and Date of : Yes REHABILITATION AND SPORTS THERAPY PHYSICAL THERAPY PROGRESS REPORT PLAN OF CARE UPDATE: Assessment: Hannah Hendricks demonstrates good progress over course of POC. Pt's sxs have significantly improved as indicated by decreased frequency and intensity since starting therapy. Pt has experienced intermittent exacerbation of sxs but have been able to manage sxs with performance of therapy exercises and adjunctive care (massage, chiropractor). Pt has improved trunk AROM in multiple planes, pt can reach hands forward to ankle vs mid thigh at eval. Pt demonstrates pain free trunk AROM in all planes. Pt has improved core strength as indicated by functional half kneel movement pattern and less lumbopelvic rotation with bird dog. Pt also demonstrates improved R LE strength, however mild weakness persists to great toe extensors, this deficit is likely result of prior nerve root compression on R side of which required the surgical intervention. Pt's primary remaining impairments include decreased core strength, decreased posterior chain extensibility, and dysfunctional movement patterns. Pt will benefit from continued skilled therapy to address impairments to improve tolerance/performance with recreational activity and labor intensive tasks. . Current prognosis is Good due to: current objective clinical presentation . Goals for Episode of Care: created on 04/20/22, updated 05/21/2022, updated 06/18/2022, updated 07/16/2022, updated 08/15/2022, updated 09/12/2022 Patient will demonstrate pain free trunk AROM in all planes---Achieved -Patient will perform mobility tasks without pain/sxs---Achieved -Patient will improve R LE myotome strength to 5/5---partially Achieved (5/5 with exception of great toe 4+/5) -patient will improve B/L FMS ASLR to a score > 2---Not Achieved [place] in home exercise program.---Achieved Patient will decrease pain rating by 2 points to meet minimal clinical important difference for numeric pain rating scale.---Achieved -Patient will demonstrate a functional half kneel B/L---Achieved -Patient will demonstrate a functional bird dog B/L---Partially Achieved -Patient will perform a prone plank for > 60 seconds without movement dysfunction---Not Achieved Patient Goals: decrease pain, improve posteiror chain extensibility, improve tolerance for mobility tasks, improve tolerance for exercise---Achieved Planned Interventions, Frequency, and Duration: 1x/month, 4 weeks Total Number of Visits Planned: 1 Patient to be seen for Therapeutic exercise (86605), Neuromuscular re-education (89332), Manual therapy (37478), Therapeutic activities (79998), Self-shelter management (62157), Patient/Family/Caregiver Education SUBJECTIVE: Patient Reason for Visit: Pt states that the exacerbation of sxs that she seth over the previous few weeks has significantly improved. Pt states that she is on a good routine with consistent stretching, chiropractor, CBD cream, and consious effort to avoid prolonged sitting.. Pain: Pain Pain Level: 1 Pain Location: Back (SI region B/L) Description: Aching Frequency: Intermittent Post Treatment Pain Post Treatment Pain Level: No Change PROMIS Scales Higher is Better 09/12/2022 08/29/2022 08/15/2022 Phys Func - Score - 29 (severe dysfunction) - Phys Func - Percentile - 2 % - Self-Eff Symptom - Score 44 (Average) - 48 (Average) Self-Eff Symptom - Percentile 27 % - 42 % T-scores: mean of general population = 50. 5 points is clinically meaningfully difference Percentiles provide an indication of how the patient's score ranks in relation to the general population. Higher percentile rankings indicate better function/quality of life. 50th percentile is the average of the general population and indicates half of respondents had a worse score. OBJECTIVE MEASURES WITH LEVEL OF FUNCTION: Lumbar Spine AROM Lumbar Flexion: Minimal limitation Lumbar Extension: Moderate limitation Lumbar R Side-Bend: Normal Lumbar L Side-Bend: Normal Lumbar R Rotation: Normal Lumbar L Rotation: Normal LE Flexibility R SLR Flexibility: passive ~50 L SLR Flexibility: passive ~ 50 Balance Static Standing Balance Comments: half knee: FN B/L, Bird dog: mild trunk sway B/L, DN B/L Single Leg Stance: >30 sec ea TREATMENT: Therapeutic Exercise: 1: reassessment performed 2: air dyne, x 5 min, to increase endurance 3: prone plank, x 15 sec 4: *modified plank, 3 x 30 seconds 5: *bird dog, x 10 ea 6: *half kneel, x 30 sec ea 7: *sciatic nerve floss, review 8: *hamstring stretch, review (more content not included)...[facility] 09-12-[facility] History of Present illness Narrative* Nehemias Suarez, PT, DPT - 09/12/2022 5:20 PM EDT Episode Visit Count: 16 Therapist That Will Accept/Oversee The Plan Of Care: Nehemias Suarez Start of Care Date: 04/20/22 Onset Date: 03/20/22 Patient Identified by Name and Date of : Yes REHABILITATION AND SPORTS THERAPY PHYSICAL THERAPY PROGRESS REPORT PLAN OF CARE UPDATE: Assessment: Hannah Hendricks demonstrates good progress over course of POC. Pt's sxs have significantly improved as indicated by decreased frequency and intensity since starting therapy. Pt has experienced intermittent exacerbation of sxs but have been able to manage sxs with performance of therapy exercisesand adjunctive care (massage, chiropractor). Pt has improved trunk AROM in multiple planes, pt can reach hands forward to ankle vs mid thigh at eval. Pt demonstrates pain free trunk AROM in all planes. Pt has improved core strength as indicated by functional half kneel movement pattern and less lumbopelvic rotation with bird dog. Pt also demonstrates improved R LE strength, however mild weakness persists to great toe extensors, this deficit is likely result of prior nerve root compression on R side of which required the surgical intervention. Pt's primary remaining impairments include decreased core strength, decreased posterior chain extensibility, and dysfunctional movement patterns. Pt will benefit from continued skilled therapy to address impairments to improve tolerance/performance with recreational activity and labor intensive tasks. . Current prognosis is Good due to: current objective clinical presentation . Goals for Episode of Care: created on 04/20/22, updated 05/21/2022, updated 06/18/2022, updated 07/16/2022, updated 08/15/2022, updated 09/12/2022 Patient will demonstrate pain free trunk AROM in all planes---Achieved -Patient will perform mobility tasks without pain/sxs---Achieved -Patient will improve R LE myotome strength to 5/5---partially Achieved (5/5 with exception of great toe 4+/5) -patient will improve B/L FMS ASLR to a score > 2---Not Achieved [place] in home exercise program.---Achieved Patient will decrease pain rating by 2 points to meet minimal clinical important difference for numeric pain rating scale.---Achieved -Patient will demonstrate a functional half kneel B/L---Achieved -Patient will demonstrate a functional bird dog B/L---Partially Achieved -Patient will perform a prone plank for > 60 seconds without movement dysfunction---Not Achieved Patient Goals: decrease pain, improve posteiror chain extensibility, improve tolerance for mobilitytasks, improve tolerance for exercise---Achieved Planned Interventions, Frequency, and Duration: 1x/month, 4 weeks Total Number of Visits Planned: 1 Patient to be seen for Therapeutic exercise (53521), Neuromuscular re-education (03374), Manual therapy (69265), Therapeutic activities (51773), Self-shelter management (64195), Patient/Family/Caregiver Education SUBJECTIVE: Patient Reason for Visit: Pt states that the exacerbation of sxs that she seth over the previous few weeks has significantly improved. Pt states that she is on a good routine with consistent stretching, chiropractor, CBD cream, and consious effort to avoid prolonged sitting.. Pain: Pain Pain Level: 1 Pain Location: Back (SI region B/L) Description: Aching Frequency: Intermittent Post Treatment Pain Post Treatment Pain Level: No Change PROMIS Scales Higher is Better 09/12/2022 08/29/2022 08/15/2022 Phys Func - Score - 29 (severe dysfunction) - Phys Func - Percentile - 2 % - Self-Eff Symptom - Score 44 (Average) - 48 (Average) Self-Eff Symptom - Percentile 27 % - 42 % T-scores: mean of general population = 50. 5 points is clinically meaningfully difference Percentiles provide an indication of how the patient's score ranks in relation to the general population. Higher percentile rankings indicate better function/quality of life. 50th percentile is the average of the general population and indicates half of respondents had a worse score. OBJECTIVE MEASURES WITH LEVEL OF FUNCTION: Lumbar Spine AROM Lumbar Flexion: Minimal limitation Lumbar Extension: Moderate limitation Lumbar R Side-Bend: Normal Lumbar L Side-Bend: Normal Lumbar R Rotation: Normal Lumbar L Rotation: Normal LE Flexibility R SLR Flexibility: passive ~50 L SLR Flexibility: passive ~ 50 Balance Static Standing Balance Comments: half knee: FN B/L, Bird dog: mild trunk sway B/L, DN B/L Single Leg Stance: >30 sec ea TREATMENT: Therapeutic Exercise: 1: reassessment performed 2: air dyne, x 5 min, to increase endurance 3: prone plank, x 15 sec 4: *modified plank, 3 x 30 seconds 5: *bird dog, x 10 ea 6: *half kneel, x 30 sec ea 7: *sciatic nerve floss, review 8: *hamstring stretch, review 9: *SLR correction, against wall, x 10 reps ea Skilled Intervention: Patient was educated in proper exercise technique and purpose for exercises. Reviewed and educated patient on additions/changes for home exercise program as above (*). Billing Therapeutic Exercise Treatment Minutes: 42 Total Treatment Time Minutes (timed/untimed): 42 Nehemias Suarez PT, DPT [facility] NoteHNO ID: [id number] Author: Juliano Urias PTA Service: ? Author Type: Acid Bleacher Type: Progress Notes Filed: 08/29/2022 6:46 PM Note Text: Episode Visit Count: 15 Therapist That Will Accept/Oversee The Plan Of Care: Nehemias Suarez Start of Care Date: 04/20/22 Onset Date: 03/20/22 REHABILITATION AND SPORTS THERAPY PHYSICAL THERAPY TREATMENT NOTE ASSESSMENT: Hannah Mcmahanrias tolerated the session with expected muscle soreness. Patient is guarded with all movement but about to complete gentle flexibility and isometrics. The patient will continue to benefit from ongoing skilled physical therapy to progress toward set goals. PLAN FOR NEXT VISIT: Continue gentle flexibility at tolerates SUBJECTIVE: Patient Reason for Visit: Patient reports Saturday, last week, I sat in a chair, that I am not used to sitting in and it flared up my pain through Saturday. Saturday, it was a little better. Saturday morning, I could hardly move. Patient report SI region pain, going to chiropractor. Patient reports that she has completely stop all exercises except knee to chest and knee across body. Patient states that she is okay with walking and standing. Sitting aggravates pain. Pain: Pain Pain Level: 5 Pain Location: (tailbone lL/R SI and right gluts) Post Treatment Pain Post Treatment Pain Level: (2-3/10) OBJECTIVE MEASURES WITH LEVEL OF FUNCTION: TREATMENT: Therapeutic Exercise: 1: *R/L SKTC 5 x 5 seconds 2: *R/L SKTOC 5 x 5 seconds 3: *R/L piriformis stretch 3 x 15 seconds 4: *Hook lying AB with isometric adduction 15 x 5 seconds 5: *Hook lying AB with isometric hip abduction wiht belt 15 x5 seconds 6: *AB with ppt 10 x 5 seconds 7: AB with hands pressing against thighs 10 x 5 seconds 9: Patient education regarding importance of engaging Transverse abdominus with all transitional movements Skilled Intervention: Patient was educated in proper exercise technique and purpose for exercises. Reviewed and educated patient on additions/changes for home exercise program as above (*). Skilled judgment was provided in selection of appropriate interventions. Provided written instruction for home exercise program to facilitate proper performance and compliance. Correct performance of therapeutic exercises was facilitated with verbal and visual cuing. Billing Therapeutic Exercise Treatment Minutes: 38 Total Treatment Time Minutes (timed/untimed): 38 [facility]05-16-2023 Miscellaneous Notes* Telephone Encounter - Italia Ackerman RN - 08/28/2022 9:44 AM EDT Will forward for review. documented in this encounterFair[facility] Center05-03-2023 NoteHNO ID: [id number] Author: Nehemias Suarez PT, DPT Service: ? Author Type: Physical Therapist Type: Progress Notes Filed: 08/15/2022 8:26 PM Note Text: Episode Visit Count: 14 Therapist That Will Accept/Oversee The Plan Of Care: Nehemias Suarez Start of Care Date: 04/20/22 Onset Date: 03/20/22 Patient Identified by Name and Date of : Yes REHABILITATION AND SPORTS THERAPY PHYSICAL THERAPY PROGRESS REPORT PLAN OF CARE UPDATE: Assessment: Hannah Hendricks demonstrates good progress towards therapy goals over course of POC. Pt reports a significant improvement in sxs since starting therapy as indicated by decreased pain frequency and intensity. Pt denies any radiating LE sxs B/L and primary pain is located to sacral region (central). Pt has improved R LE myotomal strength, only slight weakness to L5-S1 myotome (great toe extension) persists. Pt demonstrates improved trunk AROM in all planes, pt is most limited in sagittal plane. Pt has improved lumbopelvic stability/motor control as indicated by ASLR and half kneel, however limitations persist. As a result of improved core strength, trunk ROM and decreased pain, pt has improved tolerance for ADLs and mobility tasks. In order to facilitate full return to PLOF additional therapy is warranted to progress core strength and functional training . . Current prognosis is Good due to: current objective clinical presentation . Goals for Episode of Care: created on 04/20/22, updated 05/21/2022, updated 06/18/2022, updated 07/16/2022, updated 08/15/2022 Patient will demonstrate pain free trunk AROM in all planes---Achieved (discomfort with extension) -Patient will perform mobility tasks without pain/sxs---Achieved -Patient will improve R LE myotome strength to 5/5---partially Achieved (5/5 with exception of great toe 4+/5) -patient will improve B/L FMS ASLR to a score > 2---Partially Achieved [place] in home exercise program.---Achieved Patient will decrease pain rating by 2 points to meet minimal clinical important difference for numeric pain rating scale.---Achieved -Patient will demonstrate a functional half kneel B/L---Achieved -Patient will demonstrate a functional bird dog B/L---Not Tested -Patient will perform a prone plank for > 60 seconds without movement dysfunction---new goal created 08/15/2022 Patient Goals: decrease pain, improve posteiror chain extensibility---Achieved Planned Interventions, Frequency, and Duration: 1x every other week, 4 weeks Total Number of Visits Planned: 2 Patient to be seen for Therapeutic exercise (60812), Neuromuscular re-education (50103), Manual therapy (28924), Therapeutic activities (76601), Self-shelter management (24587), Patient/Family/Caregiver Education SUBJECTIVE: Patient Reason for Visit: Pt states that she has been doing good for the most part. Pt has been more active with daily activities, pt has been walking longer distances. Pt has not performed exercises as frequent as she would have liked over the last month but is committing in the future to exercise as she would like to get with the next year. Pt states that the L sided low back pain has virtually resolved and is now located to central back (sacrum region).. Pain: Pain Pain Level: 1 Pain Location: Back Description: Aching Frequency: Intermittent Post Treatment Pain Post Treatment Pain Level: No Change PROMIS Scales Higher is Better 08/15/2022 07/30/2022 07/16/2022 Phys Func - Score - 42 (mild dysfunction) - Phys Func - Percentile - 21 % - Self-Eff Symptom - Score 48 (Average) - 41 (Average) Self-Eff Symptom - Percentile 42 % - 18 % T-scores: mean of general population = 50. 5 points is clinically meaningfully difference Percentiles provide an indication of how the patient's score ranks in relation to the general population. Higher percentile rankings indicate better function/quality of life. 50th percentile is the average of the general population and indicates half of respondents had a worse score. OBJECTIVE MEASURES WITH LEVEL OF FUNCTION: Lumbar Spine AROM Lumbar Flexion: Minimal limitation (min-mod, more limtied by hamstring length vs lumbar) Lumbar Extension: Moderate limitation, Increased pain (huinging noted at L5-S1 region) Lumbar R Side-Bend: Normal Lumbar L Side-Bend: Normal Lumbar R Rotation: Normal Lumbar L Rotation: Normal LE Flexibility R SLR Flexibility: FMS 1, passive ~5055 L SLR Flexibility: FMS 2, passive ~55-60 LE Strength R Ankle Dorsiflexion (L4): 5/5 R Great Toes Extension (L5, S1): 4+/5 L Ankle Dorsiflexion (L4): 5/5 L Great Toes Extension (L5, S1): 5/5 Balance Static Standing Balance Comments: half kneel: FN B/L, bird dog: mild lumbopelvic rotation B/L Single Leg Stance: >30 sec ea TREATMENT: Therapeutic Exercise: 1: reassessment performed 2: *toe yoga, review 3: *prone lying, review 4: *prone prop, review 5: *prone pre (more content not included)...[id number] of Present illness Narrative* Nehemias Suarez, PT, DPT - 08/15/2022 6:06 PM EDT Episode Visit Count: 14 Therapist That Will Accept/Oversee The Plan Of Care: Nehemias Suarez Start of Care Date: 04/20/22 Onset Date: 03/20/22 Patient Identified by Name and Date of : Yes REHABILITATION AND SPORTS THERAPY PHYSICAL THERAPY PROGRESS REPORT PLAN OF CARE UPDATE: Assessment: Hannah Hendricks demonstrates good progress towards therapy goals over course of POC. Pt reports a significant improvement in sxs since starting therapy as indicated by decreased pain frequency andintensity. Pt denies any radiating LE sxs B/L and primary pain is located to sacral region (central). Pt has improved R LE myotomal strength, only slight weakness to L5-S1 myotome (great toe extension) persists. Pt demonstrates improved trunk AROM in all planes, pt is most limited in sagittal plane. Pt has improved lumbopelvic stability/motor control as indicated by ASLR and half kneel, however limitations persist. As a result of improved core strength, trunk ROM and decreased pain, pt has improved tolerance for ADLs and mobility tasks. In order to facilitate full return to PLOF additional therapy is warranted to progress core strength and functional training . . Current prognosis is Good due to: current objective clinical presentation . Goals for Episode of Care: created on 04/20/22, updated 05/21/2022, updated 06/18/2022, updated 07/16/2022, updated 08/15/2022 Patient will demonstrate pain free trunk AROM in all planes---Achieved (discomfort with extension) -Patient will perform mobility tasks without pain/sxs---Achieved -Patient will improve R LE myotome strength to 5/5---partially Achieved (5/5 with exception of great toe 4+/5) -patient will improve B/L FMS ASLR to a score > 2---Partially Achieved [place] in home exercise program.---Achieved Patient will decrease pain rating by 2 points to meet minimal clinical important difference for numeric pain rating scale.---Achieved -Patient will demonstrate a functional half kneel B/L---Achieved -Patient will demonstrate a functional bird dog B/L---Not Tested -Patient will perform a prone plank for > 60 seconds without movement dysfunction---new goal created 08/15/2022 Patient Goals: decrease pain, improve posteiror chain extensibility---Achieved Planned Interventions, Frequency, and Duration: 1x every other week, 4 weeks Total Number of Visits Planned: 2 Patient to be seen for Therapeutic exercise (13733), Neuromuscular re-education (76810), Manual therapy (07132), Therapeutic activities (66578), Self-shelter management (88229), Patient/Family/Caregiver Education SUBJECTIVE: Patient Reason for Visit: Pt states that she has been doing good for the most part. Pt has been more active with daily activities, pt has been walking longer distances. Pt has not performed exercises as frequent as she would have liked over the last month but is committing in the futureto exercise as she would like to get with the next year. Pt states that the L sided low back pain has virtually resolved and is now located to central back (sacrum region).. Pain: Pain Pain Level: 1 Pain Location: Back Description: Aching Frequency: Intermittent Post Treatment Pain Post Treatment Pain Level: No Change PROMIS Scales Higher is Better 08/15/2022 07/30/2022 07/16/2022 Phys Func - Score - 42 (mild dysfunction) - Phys Func - Percentile - 21 % - Self-Eff Symptom - Score 48 (Average) - 41 (Average) Self-Eff Symptom - Percentile 42 % - 18 % T-scores: mean of general population = 50. 5 points is clinically meaningfully difference Percentiles provide an indication of how the patient's score ranks in relation to the general population. Higher percentile rankings indicate better function/quality of life. 50th percentile is the average of the general population and indicates half of respondents had a worse score. OBJECTIVE MEASURES WITH LEVEL OF FUNCTION: Lumbar Spine AROM Lumbar Flexion: Minimal limitation (min-mod, more limtied by hamstring length vs lumbar) Lumbar Extension: Moderate limitation, Increased pain (huinging noted at L5-S1 region) Lumbar R Side-Bend: Normal Lumbar L Side-Bend: Normal Lumbar R Rotation: Normal Lumbar L Rotation: Normal LE Flexibility R SLR Flexibility: FMS 1, passive ~5055 L SLR Flexibility: FMS 2, passive ~55-60 LE Strength R Ankle Dorsiflexion (L4): 5/5 R Great Toes Extension (L5, S1): 4+/5 L Ankle Dorsiflexion (L4): 5/5 L Great Toes Extension (L5, S1): 5/5 Balance Static Standing Balance Comments: half kneel: FN B/L, bird dog: mild lumbopelvic rotation B/L Single Leg Stance: >30 sec ea TREATMENT: Therapeutic Exercise: 1: reassessment performed 2: *toe yoga, review 3: *prone lying, review 4: *prone prop, review 5: *prone press up, review 6: *self myofascial release to posterior chain, review 7: *sciatic nerve flossing, review 8: *hip ABD iso, review 9: *bird dog, review 10: *bird dog, review Skilled Intervention: Patient was educated in proper exercise technique and purpose for exercises. Reviewed and educated patient on additions/changes for home exercise program as above (*). Billing Therapeutic Exercise Treatment Minutes: 45 Total Treatment Time Minutes (timed/untimed): 45 Nehemias Suarez PT, DPT documented in this [facility]Fair[facility]04-17-[facility]23 History of Present illness Narrative* Konstantin Kirkland MD - 07/30/2022 9:00 AM EDT SPINE SURGERY FOLLOW UP This is an in-person visit. SERVICE DATE: 07/30/2022 SURGERY DATE: 03/20/22 Hannah Hendricks is seen for 4 months post operative follow up. This is a virtual visit Overall patient is doing very well. She reports resolution of her right leg pain. She complains of intermittent low back pain. No major concerns ANTIPLATELET OR ANTICOAGULATION STATUS: No Patient Entered Questionnaires Spine Questions 04/03/2022 05/27/2022 07/30/2022 Pain Location: Lower back Lower back Lower back Pain Duration: - - 6 months - 1 year Pain over last 6 months: - - Every day or nearly every day in the past 6 months Symptoms from neck/cervical spine: No No No Employment Status: - Disabled due to back pain, permanently or temporarily - Off work 1 month or more due to back/neck pain: - Yes - Applied for/receive disability/WC due to low back/neck pain - Yes - Involved in law suit/legal claim: - - - Spine Red Flags 10/10/2021 Any type of cancer: No Unexplained fever: No Bowel or bladder disfunction: No Unintentional weight loss: No Osteoporosis: No Low Back Pain Questionnaires 04/20/2022 STarT Risk Score 3 (Medium risk for prolonged disability) STarT Distress Score 2 STarT Total Score 4 PROMIS Score Percentiles Physical Health 06/04/2022 06/30/2022 07/30/2022 Physical Function Percentile 8 18* 21* Sleep Percentile - - 50 Fatigue Percentile - - 58 Pain Interference Percentile - - 27* PROMIS SOCIAL ROLE SCORE 04/03/2022 05/27/2022 07/30/2022 Social Role Satisfaction Percentile 8 14 58 PROMIS Global Health Scale 03/05/2022 05/27/2022 05/27/2022 Physical Health Percentile 15 15 15 Mental Health Percentile 34 34 34 Percentiles provide an indication of how the patient's score ranks in relation to the general population. Higher percentile rankings indicate better function/quality of life. 50th percentile is the average of the general population and indicates half of respondents had a worse score. Depression Screening: PHQ-9 04/03/2022 05/27/2022 07/30/2022 Score 7 2 3 PHQ-9 Self-harm Question 04/03/2022 05/27/2022 07/30/2022 Thoughts that you would be better off , or of hurting yourself in some way 0 0 0 PHQ-9 Self-Harm (Item 9) response options: 0 Not at all 1 Several days 2 More than half the days 3 Nearly every day PHQ-9 Levels: 0-4 No to mild depression 5-9 Mild depression 10-14 Moderate depression 15-19 Moderately severe depression 20-27 Severe depression PHYSICAL EXAM: LMP 03/14/2022 (Approximate) Limited due to virtual visit DATA REVIEW No additional images reviewed today ASSESSMENT/PLAN (M54.16) Radiculopathy, lumbar region (primary encounter diagnosis) 1. No orders placed today. Continue physical therapy 2. Follow up: MEGHAN I spent 15 minutes discussing with the patient her current symptoms and future plan I have communicated my name and active licensure. The patient's identity and physical location wereverified at the time of this visit. Either the patient or their legal insurance account representative has been informed of the risks and benefits of -- and alternatives to -- treatment through a remote evaluation andconsents to proceed with the evaluation remotely. SIGNATURE: Konstantin Kirkland MD PATIENT NAME: Hannah Hendricks DATE: July 30, 2022 TIME: 9:00 AM PAGER: documented in this encounterFairfield [facility] Center04-03-2023 NoteHNO ID: [id number] Author: Nehemias Suarez, PT, DPT Service: ? Author Type: Physical Therapist Type: Progress Notes Filed: 07/16/2022 2:18 PM Note Text: Episode Visit Count: 13 Therapist That Will Accept/Oversee The Plan Of Care: Nehemias Suarez Start of Care Date: 04/20/22 Onset Date: 03/20/22 Patient Identified by Name and Date of : Yes REHABILITATION AND SPORTS THERAPY PHYSICAL THERAPY PROGRESS REPORT PLAN OF CARE UPDATE: Assessment: Hannah Hendricks demonstrates good progress towards therapy goals over course of POC. Pt reports a significant improvement in sxs as indicated by decreased pain frequency and intensity since starting therapy. With exception of mild flare up of sxs at the end of last week, pt had experienced minimal to no pain over the previous weeks. Pt demonstrates improved trunk mobility, improved R LE myotomal strength, and improved core stabilization compared to evaluation. As a result of decreased sxs/improvement in impairments, pt has improved tolerance for mobility tasks, ADLs, and occupational demands. Pt to adhere to HEP as prescribed and follow up in therapy in 1 month, if sxs continue to be well controlled by patient, consider D/C at that time. . . Current prognosis is Good due to: current objective clinical presentation . Goals for Episode of Care: created on 04/20/22, updated 05/21/2022, updated 06/18/2022, updated 07/16/2022 Patient will demonstrate pain free trunk AROM in all planes---Achieved -Patient will perform mobility tasks without pain/sxs---Achieved -Patient will improve R LE myotome strength to 5/5---partially Achieved (5/5 with exception of great toe 4+/5) -patient will improve B/L FMS ASLR to a score > 2---Not Achieved [place] in home exercise program.---Achieved Patient will decrease pain rating by 2 points to meet minimal clinical important difference for numeric pain rating scale.---Achieved -Patient will demonstrate a functional half kneel B/L---Achieved -Patient will demonstrate a functional bird dog B/L---Partially Achieved Patient Goals: decrease pain, improve posteiror chain extensibility---Achieved Planned Interventions, Frequency, and Duration: 1x/month, One month Total Number of Visits Planned: 1 Patient to be seen for Therapeutic exercise (63080), Neuromuscular re-education (06894), Manual therapy (73895), Therapeutic activities (60093), Self-shelter management (04491), Patient/Family/Caregiver Education SUBJECTIVE: Patient Reason for Visit: Pt notes a flare up of sxs at the end of last week, pt thinks it may have been attributed to sitting akwardly. Pt states that sxs were located to L side of low back and tingling down L LE, sxs diminished over the ensuring 3 days, mild pain presently. Overall, pt reports a significant improvement in sxs since starting therapy. Pt has improved performance with mobility tasks , ADLs, and occupational demands.. Pain: Pain Pain Level: 2 Pain Location: Low Back/Lumbar Spine - Left Description: Aching Frequency: Continuous Post Treatment Pain Post Treatment Pain Level: No Change PROMIS Scales Higher is Better 07/16/2022 06/30/2022 06/18/2022 Phys Func - Score - 41 (mild dysfunction) - Phys Func - Percentile - 18 % - Self-Eff Symptom - Score 41 (Average) - 44 (Average) Self-Eff Symptom - Percentile 18 % - 27 % T-scores: mean of general population = 50. 5 points is clinically meaningfully difference Percentiles provide an indication of how the patient's score ranks in relation to the general population. Higher percentile rankings indicate better function/quality of life. 50th percentile is the average of the general population and indicates half of respondents had a worse score. OBJECTIVE MEASURES WITH LEVEL OF FUNCTION: Lumbar Spine AROM Lumbar Flexion: Moderate limitation Lumbar Extension: Moderate limitation Lumbar R Side-Bend: Normal Lumbar L Side-Bend: Normal LE Flexibility R SLR Flexibility: FMS 1 L SLR Flexibility: FMS 1 LE Strength R Ankle Dorsiflexion (L4): 5/5 R Great Toes Extension (L5, S1): 4+/5 Balance Static Standing Balance Comments: half kneel: FN B/L, bird dog: mild lumbopelvic rotation B/L TREATMENT: Therapeutic Exercise: 1: reassessment performed 2: *toe yoga, x 5 ea 3: *prone lying, 2 pillows under hips,, x 2 min 4: *prone prop, 2 pillows under hips, x 2 min 5: *prone press up, 2 pillows under hips, 2 x 15, with over pressure on sacrum 6: *bird dog, review 7: *half kneel, review 8: *sciatice nerve flossing, review 9: *bridge,review 10: * bug, review 11: *SLS, pull downs, review 12: side steps, #red, x 15 feet ea direction Skilled Intervention: Patient was educated in proper exercise technique and purpose for exercises. Reviewed and educated patient on additions/changes for home exercise program as above (*). Billing Therapeutic Exercise Treatment Minutes: 40 Total Treatment Time [place] (more content not included)...[facility] 07-16-[facility] History of Present illness Narrative* Nehemias Suarez, PT, DPT - 07/16/2022 12:35 PM EDT Episode Visit Count: 13 Therapist That Will Accept/Oversee The Plan Of Care: Nehemias Suarez Start of Care Date: 04/20/22 Onset Date: 03/20/22 Patient Identified by Name and Date of : Yes REHABILITATION AND SPORTS THERAPY PHYSICAL THERAPY PROGRESS REPORT PLAN OF CARE UPDATE: Assessment: Hannah Hendricks demonstrates good progress towards therapy goals over course of POC.Pt reports a significant improvement in sxs as indicated by decreased pain frequency and intensity since starting therapy. With exception of mild flare up of sxs at the end of last week, pt had experienced minimal to no pain over the previous weeks. Pt demonstrates improved trunk mobility, improvedR LE myotomal strength, and improved core stabilization compared to evaluation. As a result of decreased sxs/improvement in impairments, pt has improved tolerance for mobility tasks, ADLs, and occupational demands. Pt to adhere to HEP as prescribed and follow up in therapy in 1 month, if sxs continue to be well controlled by patient, consider D/C at that time. . . Current prognosis is Good due to: current objective clinical presentation . Goals for Episode of Care: created on 04/20/22, updated 05/21/2022, updated 06/18/2022, updated 07/16/2022 Patient will demonstrate pain free trunk AROM in all planes---Achieved -Patient will perform mobility tasks without pain/sxs---Achieved -Patient will improve R LE myotome strength to 5/5---partially Achieved (5/5 with exception of great toe 4+/5) -patient will improve B/L FMS ASLR to a score > 2---Not Achieved [place] in home exercise program.---Achieved Patient will decrease pain rating by 2 points to meet minimal clinical important difference for numeric pain rating scale.---Achieved -Patient will demonstrate a functional half kneel B/L---Achieved -Patient will demonstrate a functional bird dog B/L---Partially Achieved Patient Goals: decrease pain, improve posteiror chain extensibility---Achieved Planned Interventions, Frequency, and Duration: 1x/month, One month Total Number of Visits Planned: 1 Patient to be seen for Therapeutic exercise (74428), Neuromuscular re-education (23733), Manual therapy (40935), Therapeutic activities (08132), Self-shelter management (96946), Patient/Family/Caregiver Education SUBJECTIVE: Patient Reason for Visit: Pt notes a flare up of sxs at the end of last week, pt thinksit may have been attributed to sitting akwardly. Pt states that sxs were located to L side of low back and tingling down L LE, sxs diminished over the ensuring 3 days, mild pain presently. Overall, pt reports a significant improvement in sxs since starting therapy. Pt has improved performance with mobility tasks , ADLs, and occupational demands.. Pain: Pain Pain Level: 2 Pain Location: Low Back/Lumbar Spine - Left Description: Aching Frequency: Continuous Post Treatment Pain Post Treatment Pain Level: No Change PROMIS Scales Higher is Better 07/16/2022 06/30/2022 06/18/2022 Phys Func - Score - 41 (mild dysfunction) - Phys Func - Percentile - 18 % - Self-Eff Symptom - Score 41 (Average) - 44 (Average) Self-Eff Symptom - Percentile 18 % - 27 % T-scores: mean of general population = 50. 5 points is clinically meaningfully difference Percentiles provide an indication of how the patient's score ranks in relation to the general population. Higher percentile rankings indicate better function/quality of life. 50th percentile is the average of the general population and indicates half of respondents had a worse score. OBJECTIVE MEASURES WITH LEVEL OF FUNCTION: Lumbar Spine AROM Lumbar Flexion: Moderate limitation Lumbar Extension: Moderate limitation Lumbar R Side-Bend: Normal Lumbar L Side-Bend: Normal LE Flexibility R SLR Flexibility: FMS 1 L SLR Flexibility: FMS 1 LE Strength R Ankle Dorsiflexion (L4): 5/5 R Great Toes Extension (L5, S1): 4+/5 Balance Static Standing Balance Comments: half kneel: FN B/L, bird dog: mild lumbopelvic rotation B/L TREATMENT: Therapeutic Exercise: 1: reassessment performed 2: *toe yoga, x 5 ea 3: *prone lying, 2 pillows under hips,, x 2 min 4: *prone prop, 2 pillows under hips, x 2 min 5: *prone press up, 2 pillows under hips, 2 x 15, with over pressure on sacrum 6: *bird dog, review 7: *half kneel, review 8: *sciatice nerve flossing, review 9: *bridge,review 10: * bug, review 11: *SLS, pull downs, review 12: side steps, #red, x 15 feet ea direction Skilled Intervention: Patient was educated in proper exercise technique and purpose for exercises. Reviewed and educated patient on additions/changes for home exercise program as above (*). Billing Therapeutic Exercise Treatment Minutes: 40 Total Treatment Time Minutes (timed/untimed): 40 Nehemias Suarez PT, DPT documented in this [facility]Fair[facility]03-27-2023 NoteHNO ID: [id number] Author: Nehemias Suarez PT, DPT Service: ? Author Type: Physical Therapist Type: Progress Notes Filed: 07/09/2022 1:19 PM Note Text: Episode Visit Count: 12 Therapist That Will Accept/Oversee The Plan Of Care: Nehemias Suarez Start of Care Date: 04/20/22 Onset Date: 03/20/22 Patient Identified by Name and Date of : Yes REHABILITATION AND SPORTS THERAPY PHYSICAL THERAPY TREATMENT NOTE ASSESSMENT: Pt demonstrated less lumbopelvic rotation with bird dog exercise compared to previous session. Pt also required less cuing to maintain neutral lumbopelvic alignment with core exercises. . Assess patient's function and progress towards goals next visit to determine potential for discharge, continuation of skilled therapy services, or referral to another medical provider. PLAN FOR NEXT VISIT: Progress Note SUBJECTIVE: Patient Reason for Visit: Pt ahs weaned from all medicine. Pt notes increased stiffness to low back this date which she attributes to increased physical activity. Pt states that sxs are located to central spine vs L side like previously in POC. Pain: Pain Pain Level: 2 Pain Location: Back Description: Stiffness Frequency: Intermittent Post Treatment Pain Post Treatment Pain Level: No Change OBJECTIVE MEASURES WITH LEVEL OF FUNCTION: Functional Strength Functional Strength: lift: 15, from 4 inch step TREATMENT: Therapeutic Exercise: 1: arc principal trainer, L5, x 5 minutes, to increase endurance 2: *prone lying, review 3: *prone prop, review 4: *prone press up, review 5: *half kneel, alternating UE shoulder H.ABD x 10 ea performed B/L, chop/lift #2 x 15 ea 6: *bird dog, 2 x 10 ea 7: push, 2 x 75 feet, #20 8: pull, 2 x 75 feet, #20 9: hip hinge, 2 x 10, slight to no knee bend 10: *kettle perkins lift, from 4 inch step, 2 x 10 11: * bug, review Skilled Intervention: Patient was educated in proper exercise technique and purpose for exercises. Reviewed and educated patient on additions/changes for home exercise program as above (*). Billing Therapeutic Exercise Treatment Minutes: 41 Total Treatment Time Minutes (timed/untimed): 41 Nehemias Suarez PT, [facility]03-27-2023 History of Present illness Narrative* Nehemias Suarez PT, DPT - 07/09/2022 12:23 PM EDT Episode Visit Count: 12 Therapist That Will Accept/Oversee The Plan Of Care: Nehemias Suarez Start of Care Date: 04/20/22 Onset Date: 03/20/22 Patient Identified by Name and Date of : Yes REHABILITATION AND SPORTS THERAPY PHYSICAL THERAPY TREATMENT NOTE ASSESSMENT: Pt demonstrated less lumbopelvic rotation with bird dog exercise compared to previous session. Pt also required less cuing to maintain neutral lumbopelvic alignment with core exercises. .Assess patient's function and progress towards goals next visit to determine potential for discharge, continuation of skilled therapy services, or referral to another medical provider. PLAN FOR NEXT VISIT: Progress Note SUBJECTIVE: Patient Reason for Visit: Pt ahs weaned from all medicine. Pt notes increased stiffnessto low back this date which she attributes to increased physical activity. Pt states that sxs are located to central spine vs L side like previously in POC. Pain: Pain Pain Level: 2 Pain Location: Back Description: Stiffness Frequency: Intermittent Post Treatment Pain Post Treatment Pain Level: No Change OBJECTIVE MEASURES WITH LEVEL OF FUNCTION: Functional Strength Functional Strength: lift: 15, from 4 inch step TREATMENT: Therapeutic Exercise: 1: arc principal trainer, L5, x 5 minutes, to increase endurance 2: *prone lying, review 3: *prone prop, review 4: *prone press up, review 5: *half kneel, alternating UE shoulder H.ABD x 10 ea performed B/L, chop/lift #2 x 15 ea 6: *bird dog, 2 x 10 ea 7: push, 2 x 75 feet, #20 8: pull, 2 x 75 feet, #20 9: hip hinge, 2 x 10, slight to no knee bend 10: *kettle perkins lift, from 4 inch step, 2 x 10 11: * bug, review Skilled Intervention: Patient was educated in proper exercise technique and purpose for exercises. Reviewed and educated patient on additions/changes for home exercise program as above (*). Billing Therapeutic Exercise Treatment Minutes: 41 Total Treatment Time Minutes (timed/untimed): 41 Nehemias Suarez PT, DPT documented in this [facility] NoteHNO ID: [id number] Author: Juliano Urias PTA Service: ? Author Type: Acid Bleacher Type: Progress Notes Filed: 07/02/2022 4:28 PM Note Text: Episode Visit Count: 11 Therapist That Will Accept/Oversee The Plan Of Care: Nehemias Suarez Start of Care Date: 04/20/22 Onset Date: 03/20/22 REHABILITATION AND SPORTS THERAPY PHYSICAL THERAPY TREATMENT NOTE ASSESSMENT: Hannah L Eladio tolerated the session with decreased symptoms. She demonstrated improvements in lumbar extension. Pain is centralized to tailbone region. Patient notes overall improvement of 60-65 % since onset of PT. . The patient will continue to benefit from ongoing skilled physical therapy to progress toward set goals. PLAN FOR NEXT VISIT: continue core stabilization SUBJECTIVE: Patient Reason for Visit: Patient reports I have been doing a lot better. It's centralized. The extension exercises are helping. The left side is better but now the right side is bothering me. Pain: Pain Pain Level: 1 Pain Location: Low Back/Lumbar Spine - Right Description: (annoying) Post Treatment Pain Post Treatment Pain Level: Better OBJECTIVE MEASURES WITH LEVEL OF FUNCTION: Patient ambulates with equal step lengths TREATMENT: Therapeutic Exercise: 1: NuStep, seat 9, arm10, L6, 5 minutes,70 spm 2: *prone lying, x 2 min, pillow under hips 3: *prone prop, x 2 min, pillow under hips 4: *bird dog x 10 with 3 second hold 5: midback stretch, 3 positions 2 x 15 seconds 6: half kneel x 30 seconds each 8: SLS , stick mobility with isometric hip abduction 10 x 5 seconds each Skilled Intervention: Patient was educated in proper exercise technique and purpose for exercises. Skilled judgment was provided in selection of appropriate interventions. Correct performance of therapeutic exercises was facilitated with verbal and visual cuing. Billing Therapeutic Exercise Treatment Minutes: 40 Total Treatment Time Minutes (timed/untimed): 40 Juliano [facility]03-13-2023 NoteHNO ID: [id number] Author: Nehemias Suarez PT, DPT Service: ? Author Type: Physical Therapist Type: Progress Notes Filed: 06/25/2022 5:53 PM Note Text: Episode Visit Count: 10 Therapist That Will Accept/Oversee The Plan Of Care: Nehemias Suarez Start of Care Date: 04/20/22 Onset Date: 03/20/22 Patient Identified by Name and Date of : Yes REHABILITATION AND SPORTS THERAPY PHYSICAL THERAPY TREATMENT NOTE ASSESSMENT: Pt responded well to prone extension protocol as indicated by centralization of sxs and decreased pain. Pt will benefit from continued skilled therapy to progress core strength and extension bias to further decrease pain/sxs to minimize functional limitations. PLAN FOR NEXT VISIT: continue core stabilization SUBJECTIVE: Patient Reason for Visit: Pt reports less L sided low back pain since performing prone protocol, pt states that she has mild pain centrally but less laterally. Pt reports compliance to HEP as prescribed. Pain: Pain Pain Level: (minimal to no pain, not rated) Pain Location: Low Back/Lumbar Spine - Left Description: Aching Frequency: Intermittent Post Treatment Pain Post Treatment Pain Level: No Change OBJECTIVE MEASURES WITH LEVEL OF FUNCTION: Lumbar Spine AROM Lumbar Extension: Moderate limitation TREATMENT: Therapeutic Exercise: 1: *prone lying, x 2 min, pillow under hips 2: *prone prop, x 2 min, pillow under hips 3: *prone press up, pillow under hips, 2 x 15, 3 sec holds 4: bug, x 15 ea, alternating, with #green resistance x 15 ea 5: *bridge, with hip ABD iso #blue, with arm bar #red, 2 x 10 6: *half kneel, review 7: *bird dog, review 8: SLS, stick mobility series, x 3 rounds, x 2 sets ea Skilled Intervention: Patient was educated in proper exercise technique and purpose for exercises. Reviewed and educated patient on additions/changes for home exercise program as above (*). Billing Therapeutic Exercise Treatment Minutes: 40 Total Treatment Time Minutes (timed/untimed): 40 Nehemias Suarez PT, [facility]03-13-2023 History of Present illness Narrative* Nehemias Suarez PT, DPT - 06/25/2022 4:24 PM EDT Episode Visit Count: 10 Therapist That Will Accept/Oversee The Plan Of Care: Nehemias Suarez Start of Care Date: 04/20/22 Onset Date: 03/20/22 Patient Identified by Name and Date of : Yes REHABILITATION AND SPORTS THERAPY PHYSICAL THERAPY TREATMENT NOTE ASSESSMENT: Pt responded well to prone extension protocol as indicated by centralization of sxs anddecreased pain. Pt will benefit from continued skilled therapy to progress core strength and extension bias to further decrease pain/sxs to minimize functional limitations. PLAN FOR NEXT VISIT: continue core stabilization SUBJECTIVE: Patient Reason for Visit: Pt reports less L sided low back pain since performing prone protocol, pt states that she has mild pain centrally but less laterally. Pt reports compliance to HEP as prescribed. Pain: Pain Pain Level: (minimal to no pain, not rated) Pain Location: Low Back/Lumbar Spine - Left Description: Aching Frequency: Intermittent Post Treatment Pain Post Treatment Pain Level: No Change OBJECTIVE MEASURES WITH LEVEL OF FUNCTION: Lumbar Spine AROM Lumbar Extension: Moderate limitation TREATMENT: Therapeutic Exercise: 1: *prone lying, x 2 min, pillow under hips 2: *prone prop, x 2 min, pillow under hips 3: *prone press up, pillow under hips, 2 x 15, 3 sec holds 4: bug, x 15 ea, alternating, with #green resistance x 15 ea 5: *bridge, with hip ABD iso #blue, with arm bar #red, 2 x 10 6: *half kneel, review 7: *bird dog, review 8: SLS, stick mobility series, x 3 rounds, x 2 sets ea Skilled Intervention: Patient was educated in proper exercise technique and purpose for exercises. Reviewed and educated patient on additions/changes for home exercise program as above (*). Billing Therapeutic Exercise Treatment Minutes: 40 Total Treatment Time Minutes (timed/untimed): 40 Nehemias Suarez PT DPJaime documented [facility]23 NoteHNO ID: [id number] Author: Nehemias Suarez PT, DPT Service: ? Author Type: Physical Therapist Type: Progress Notes Filed: 06/18/2022 4:28 PM Note Text: Episode Visit Count: 9 Therapist That Will Accept/Oversee The Plan Of Care: Nehemias Suarez Start of Care Date: 04/20/22 Onset Date: 03/20/22 Patient Identified by Name and Date of : Yes REHABILITATION AND SPORTS THERAPY PHYSICAL THERAPY PROGRESS REPORT PLAN OF CARE UPDATE: Assessment: Hannah Hendricks demonstrates good progress towards therapy goals over course of POC. Pt reports a significant improvement in sxs as indicated by decreased pain intensity since starting therapy. Pt's only remaining pain is to L PSIS region, rated 2/10 at worst. 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 Pt has improved R LE strength, however mild weakness persists. Pt's other remaining impairments include decreased trunk mobility, core stabilization deficits, and dysfunctional movement patterns Pt will benefit from continued skilled therapy to address impairments to further decrease pain/sxs, decrease risk for future injury, and improve tolerance for labor intensive tasks/recreational activity. .. Current prognosis is Good due to: current objective clinical presentation . Goals for Episode of Care: created on 04/20/22, updated 05/21/2022, updated 06/18/2022 Patient will demonstrate pain free trunk AROM in all planes -Patient will perform mobility tasks without pain/sxs---Partially Achieved -Patient will improve R LE myotome strength to 5/5---partially Achieved -patient will improve B/L FMS ASLR to a score > 2---Not Achieved [place] in home exercise program.---Achieved Patient will decrease pain rating by 2 points to meet minimal clinical important difference for numeric pain rating scale.---Achieved -Patient will demonstrate a functional half kneel B/L---Not Achieved -Patient will demonstrate a functional bird dog B/L---Not Achieved Patient Goals: decrease pain, improve posteiror chain extensibility---Achieved Planned Interventions, Frequency, and Duration: 1x/week, 4 weeks Total Number of Visits Planned: 4 Patient to be seen for Therapeutic exercise (74857), Neuromuscular re-education (72308), Manual therapy (11197), Therapeutic activities (49700), Self-shelter management (69608), Patient/Family/Caregiver Education PLAN FOR NEXT VISIT: prone protocol, core stabilizatin SUBJECTIVE: Patient Reason for Visit: Pt states that she has improved since starting therapy. Pt states that her only pain is to L L5 region. Pt states that sxs are less severe than when she started. Pt's only LE sxs is R numbness/tingling to thigh region, no distal sxs to knee. Pt would like to continue to come to therapy, pt is not back to 100 percent and fears that she may not make full recovery and live with disability. 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 Functional Limitation Comments: sitting, bending Pain: Pain Pain Level: 2 (worst pain: 2/10) Pain Location: Low Back/Lumbar Spine - Left Description: Aching Frequency: Continuous Post Treatment Pain Post Treatment Pain Level: No Change PROMIS Scales Higher is Better 06/18/2022 06/04/2022 05/20/2022 Phys Func - Score - 36 (moderate dysfunction) - Phys Func - Percentile - 8 % - Self-Eff Symptom - Score 44 (Average) - 39 (Low) Self-Eff Symptom - Percentile 27 % - 14 % T-scores: mean of general population = 50. 5 points is clinically meaningfully difference Percentiles provide an indication of how the patient's score ranks in relation to the general population. Higher percentile rankings indicate better function/quality of life. 50th percentile is the average of the general population and indicates half of respondents had a worse score. OBJECTIVE MEASURES WITH LEVEL OF FUNCTION: Posture / Alignment Posture: Rounded shoulders Lumbar Spine AROM Lumbar Flexion: Moderate limitation, Increased pain Lumbar Extension: Moderate limitation Lumbar R Side-Bend: Normal Lumbar L Side-Bend: Normal LE Flexibility R SLR Flexibility: passive ~50 L SLR Flexibility: passive ~50 R Hip Flexor Flexibility: FMS 1/2 L Hip Flexor Flexibility: FMS 1/2 LE Strength R Ankle Dorsiflexion (L4): 4+/5 R Great Toes Extension (L5, S1): 4+/5 Balance Static Standing Balance Comments: half knee: DN B/L, bird dog: Dn B/L TREATMENT: Therapeutic Exercise: 1: reassessment performed 2: prone lying, x 2 min 3: prone prop, 2 x 20 min 4: prone press up, 2 x 15 5: half kneel, x 20 sec ea 6: bird dog, x 10 ea 7: *sciatic nerve flossing, review 8: *ASLR, review 9: *piriformis, review Skilled Intervention: Patient was educated in proper exercise technique and purpose for exercises. Reviewed and educated patient on additions/changes for home exercise program as above (*). Mk (more content not included)...[facility] [id number] NoteHNO ID: [id number] Author: Juliano Urias PTA Service: ? Author Type: Acid Bleacher Type: Progress Notes Filed: 06/11/2022 4:28 PM Note Text: Episode Visit Count: 8 Therapist That Will Accept/Oversee The Plan Of Care: Nehemias Suarez Start of Care Date: 04/20/22 Onset Date: 03/20/22 REHABILITATION AND SPORTS THERAPY PHYSICAL THERAPY TREATMENT NOTE ASSESSMENT: Hannah Hendricks tolerated the session with no issues. She demonstrated improvements in stabilization with abdominal bracing. Patient is able to transition to DKTC and standing exercises without issue. . The patient will continue to benefit from ongoing skilled physical therapy to progress toward set goals. PLAN FOR NEXT VISIT: continue with trunk/core stabilization SUBJECTIVE: Patient Reason for Visit: Patient reports no difficulties with walking or standing . Mild pain in left lumbar with bending. Pain: Pain Pain Level: (less than a 1/10) Pain Location: Low Back/Lumbar Spine - Left (below the incision) Post Treatment Pain Post Treatment Pain Level: No Change OBJECTIVE MEASURES WITH LEVEL OF FUNCTION: Posture / Alignment Posture: Rounded shoulders TREATMENT: Therapeutic Exercise: 1: NuStep, seat 9, arm10, L5, 6 minutes, 2: LTR 10 x 5 seconds 3: SKTC 5 x 5 seconds 4: Supine L/R hamstring stretch 3 x 20 seconds 5: *bridging with hands across chest 10 x 5 seconds 6: *AB with SLR x 10 7: AB with therapeutic ball DKTC 10 with 5 seconds 8: *standing DLS with double green , 3 positions, x 10 each 9: * rows, pulldowns and pullups with green x 10 each Skilled Intervention: Patient was educated in proper exercise technique and purpose for exercises. Reviewed and educated patient on additions/changes for home exercise program as above (*). Skilled judgment was provided in selection of appropriate interventions. Provided written instruction for home exercise program to facilitate proper performance and compliance. Correct performance of therapeutic exercises was facilitated with verbal and visual cuing. Billing Therapeutic Exercise Treatment Minutes: 40 Total Treatment Time Minutes (timed/untimed): 40 [facility] History of Present illness Narrative* Juliano Urias [facility] - 06/11/2022 12:19 PM EST Episode Visit Count: 8 Therapist That Will Accept/Oversee The Plan Of Care: Nehemias Suarez Start of Care Date: 04/20/22 Onset Date: 03/20/22 REHABILITATION AND SPORTS THERAPY PHYSICAL THERAPY TREATMENT NOTE ASSESSMENT: Hannah Hendricks tolerated the session with no issues. She demonstrated improvements in stabilization with abdominal bracing. Patient is able to transition to DKTC and standing exercises without issue. . The patient will continue to benefit from ongoing skilled physical therapy to progress toward set goals. PLAN FOR NEXT VISIT: continue with trunk/core stabilization SUBJECTIVE: Patient Reason for Visit: Patient reports no difficulties with walking or standing . Mild pain in left lumbar with bending. Pain: Pain Pain Level: (less than a 1/10) Pain Location: Low Back/Lumbar Spine - Left (below the incision) Post Treatment Pain Post Treatment Pain Level: No Change OBJECTIVE MEASURES WITH LEVEL OF FUNCTION: Posture / Alignment Posture: Rounded shoulders TREATMENT: Therapeutic Exercise: 1: NuStep, seat 9, arm10, L5, 6 minutes, 2: LTR 10 x 5 seconds 3: SKTC 5 x 5 seconds 4: Supine L/R hamstring stretch 3 x 20 seconds 5: *bridging with hands across chest 10 x 5 seconds 6: *AB with SLR x 10 7: AB with therapeutic ball DKTC 10 with 5 seconds 8: *standing DLS with double green , 3 positions, x 10 each 9: * rows, pulldowns and pullups with green x 10 each Skilled Intervention: Patient was educated in proper exercise technique and purpose for exercises. Reviewed and educated patient on additions/changes for home exercise program as above (*). Skilled judgment was provided in selection of appropriate interventions. Provided written instruction for home exercise program to facilitate proper performance and compliance. Correct performance of therapeutic exercises was facilitated with verbal and visual cuing. Billing Therapeutic Exercise Treatment Minutes: 40 Total Treatment Time Minutes (timed/untimed): 40 Jluiano Urias PTA documented in this encounterFair[facility]02-20-2023 NoteHNO ID: [id number] Author: Juliano Urias PTA Service: ? Author Type: Acid Bleacher Type: Progress Notes Filed: 06/04/2022 4:43 PM Note Text: Episode Visit Count: 7 Therapist That Will Accept/Oversee The Plan Of Care: Nehemias Suarez Start of Care Date: 04/20/22 Onset Date: 03/20/22 REHABILITATION AND SPORTS THERAPY PHYSICAL THERAPY TREATMENT NOTE ASSESSMENT: Hannah Hendricks tolerated the session with decreased symptoms. She demonstrated hamstring tightness bilaterally.Positive response with manual/decreased pain The patient will continue to benefit from ongoing skilled physical therapy to progress toward set goals. PLAN FOR NEXT VISIT: continue with trunk/core stabilization SUBJECTIVE: Patient Reason for Visit: Patient reports I started back to work. 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 I still have that pain in my left lower back , mostly it's annoying. It doesn't stop me from doing anything. Its a dull pain. I had muscle pain in my legs but none in back after last session. Yesterday, I had some left knee pain, intermittent. Starting lifting daughter but limiting it. Patient is concerned regarding numbness in right thigh. SOLAR SALES ASSESSOR educated patient that numbness is common after surgeries due to nerve issues. Pain: Pain Pain Level: 1 Pain Location: Low Back/Lumbar Spine - Left (below the incision) Post Treatment Pain Post Treatment Pain Level: (less than 1/10) OBJECTIVE MEASURES WITH LEVEL OF FUNCTION: Hamstring tightness noted bilaterally TREATMENT: Therapeutic Exercise: 1: NuStep, seat 9, arm10, L4, 5 minutes, 2: LTR 5 x 5 seconds 3: SKTC 5 x 5 seconds 4: Supine L/R hamstring stretch 3 x 20 seconds 5: *bridging 10 x 5 seconds 6: *AB with SLR x 10 Skilled Intervention: Patient was educated in proper exercise technique and purpose for exercises. Reviewed and educated patient on additions/changes for home exercise program as above (*). Skilled judgment was provided in selection of appropriate interventions. Correct performance of therapeutic exercises was facilitated with verbal and visual cuing. Manual Therapy: 1: STM's to left lower lumbar paraspinals and glut region 2: Gentle spinal distraction stretching Skilled Intervention: Manual skills to improve joint mobility, ROM, and decrease pain. Utilized anatomy knowledge of the therapist, and assessment of patient's response to intervention. Billing Therapeutic Exercise Treatment Minutes: 33 Manual TherapyTreatment Minutes: 14 Total Treatment Time Minutes (timed/untimed): 50 [facility] NoteHNO ID: [id number] Author: Nehemias Suarez PT, DPT Service: ? Author Type: Physical Therapist Type: Progress Notes Filed: 05/30/2022 1:54 PM Note Text: Episode Visit Count: 6 Therapist That Will Accept/Oversee The Plan Of Care: Nehemias Suarez Start of Care Date: 04/20/22 Onset Date: 03/20/22 Patient Identified by Name and Date of : Yes REHABILITATION AND SPORTS THERAPY PHYSICAL THERAPY TREATMENT NOTE ASSESSMENT: Pt tolerated all exercises well without increase in sxs with exception of tall kneel hip hinge which caused a transient increase in L sided low back pain. Pt was encouraged to get a wedge for chair at work to promote anterior pelvic tilt while sitting. Pt will benefit from continued skilled therapy to progress core stabilization, LE strengthening and functional training to further decrease pain/sxs to minimize functional limitations. PLAN FOR NEXT VISIT: slow progression of core exercises SUBJECTIVE: Patient Reason for Visit: Pt states that she has been doing more activity over the last week. Pt states that she returned to work today (half day), pt notes central back pain with sitting (mild). Pt f/u with surgeon, no further restrictions. Pain: Pain Pain Level: 1 Pain Location: Back Description: Aching Frequency: Continuous Post Treatment Pain Post Treatment Pain Level: No Change OBJECTIVE MEASURES WITH LEVEL OF FUNCTION: Functional Strength Functional Strength: hip hinge: WNL TREATMENT: Therapeutic Exercise: 1: air dyne, x 5 min, to increase core endurance/LE strengthening 2: *hip hinge training, with stick, 2 x 15 3: * lift, hip hinge, #10, 2 x 15 4: sitting with wedge, x 30 sec, to promote anteiror pelvic tilt 5: *half kneel, x 30 sec ea, with #2 lb chop/lift x 15 ea 6: tall kneel, x 15, #5, hip hinge, increase in low back pain 7: *hip ADD Iso, review 8: *hip ABD iso, #black, 5 sec hold, 2 x 15, with t-bar #blue Skilled Intervention: Patient was educated in proper exercise technique and purpose for exercises. Reviewed and educated patient on additions/changes for home exercise program as above (*). Billing Therapeutic Exercise Treatment Minutes: 42 Total Treatment Time Minutes (timed/untimed): 46 Nehemias [facility]arez [facility], [facility]02-15-[facility] History of Present illness Narrative* Nehemias Suarez PT, DPT - 05/30/2022 12:33 PM EST Episode Visit Count: 6 Therapist That Will Accept/Oversee The Plan Of Care: Nehemias Suarez Start of Care Date: 04/20/22 Onset Date: 03/20/22 Patient Identified by Name and Date of : Yes REHABILITATION AND SPORTS THERAPY PHYSICAL THERAPY TREATMENT NOTE ASSESSMENT: Pt tolerated all exercises well without increase in sxs with exception of tall kneel hip hinge which caused a transient increase in L sided low back pain. Pt was encouraged to get a wedgefor chair at work to promote anterior pelvic tilt while sitting. Pt will benefit from continued skilled therapy to progress core stabilization, LE strengthening and functional training to further decrease pain/sxs to minimize functional limitations. PLAN FOR NEXT VISIT: slow progression of core exercises SUBJECTIVE: Patient Reason for Visit: Pt states that she has been doing more activity over the lastweek. Pt states that she returned to work today (half day), pt notes central back pain with sitting(mild). Pt f/u with surgeon, no further restrictions. Pain: Pain Pain Level: 1 Pain Location: Back Description: Aching Frequency: Continuous Post Treatment Pain Post Treatment Pain Level: No Change OBJECTIVE MEASURES WITH LEVEL OF FUNCTION: Functional Strength Functional Strength: hip hinge: WNL TREATMENT: Therapeutic Exercise: 1: air dyne, x 5 min, to increase core endurance/LE strengthening 2: *hip hinge training, with stick, 2 x 15 3: * lift, hip hinge, #10, 2 x 15 4: sitting with wedge, x 30 sec, to promote anteiror pelvic tilt 5: *half kneel, x 30 sec ea, with #2 lb chop/lift x 15 ea 6: tall kneel, x 15, #5, hip hinge, increase in low back pain 7: *hip ADD Iso, review 8: *hip ABD iso, #black, 5 sec hold, 2 x 15, with t-bar #blue Skilled Intervention: Patient was educated in proper exercise technique and purpose for exercises. Reviewed and educated patient on additions/changes for home exercise program as above (*). Billing Therapeutic Exercise Treatment Minutes: 42 Total Treatment Time Minutes (timed/untimed): 46 Nehemias Suarez PT, DPT documented in this encounterFairfield Medical Center02-13-2023 NoteHNO ID: [id number] Author: Sheela Glover RN Service: ? Author Type: Registered Nurse Type: Progress Notes Filed: 05/28/2022 6:21 PM Note Text: I was able to connect with pt via phone call and explained that the fax is not going through. She will look for another fax number, but also can see the copy of the letter in her MyChart.[facility] [id number] NoteHNO ID: [id number] Author: Sheela Shevchuk, RN Service: ? Author Type: Registered Nurse Type: Progress Notes Filed: 05/28/2022 6:21 PM Note Text: RTW letter created and Uploaded to [employer]. The number the pt provided ([phone]) does not work. Also after Googling her employer and finding another local fax number ([phone]), that also did not work. I called pt 3 times and left a message with no reply.[facility] [id number] NoteHNO ID: [id number] Author: Konstantin Kirkland MD Service: ? Author Type: Physician Type: Progress Notes Filed: 05/28/2022 6:21 PM Note Text: [phone] 05/30 No restrictionsLawrence F. Quigley Memorial [id number] NoteHNO ID: [id number] Author: Konstantin Kirkland MD Service: ? Author Type: Physician Type: Progress Notes Filed: 05/28/2022 6:32 PM Note Text: SPINE SURGERY FOLLOW UP This is a virtual visit using [employer] video visit. It required patient-provider interaction for the medical decision making as documented below. SERVICE DATE: 05/28/2022 SURGERY DATE: 03/20/22 Hannah Hendricks is seen for 10 week post operative follow up. This is a virtual visit She is experiencing tightness and soreness on the L side of her back. She reports improvements in her back pain. She reports physical therapy is going well. She is interested in weaning off of the Gabapentin. The pain has been present since pre-surgery . The pain is located in the back and described as occasional. Pain Radiation: L lower back to buttock Aggravating Factors: physical therapy/movement Alleviating Factors: Sitting Pain Ratio: Back pain is greater than buttock pain. ANTIPLATELET OR ANTICOAGULATION STATUS: No Patient Entered Questionnaires Spine Questions 03/05/2022 04/03/2022 05/27/2022 Pain Location: Lower back Lower back Lower back Pain Duration: - - - Pain over last 6 months: - - - Symptoms from neck/cervical spine: No No No Employment Status: Disabled due to back pain, permanently or temporarily - Disabled due to back pain, permanently or temporarily Off work 1 month or more due to back/neck pain: Yes - Yes Applied for/receive disability/WC due to low back/neck pain Yes - Yes Involved in law suit/legal claim: - - - Spine Red Flags 10/10/2021 Any type of cancer: No Unexplained fever: No Bowel or bladder disfunction: No Unintentional weight loss: No Osteoporosis: No Low Back Pain Questionnaires 04/20/2022 STarT Risk Score 3 (Medium risk for prolonged disability) STarT Distress Score 2 STarT Total Score 4 PROMIS Score Percentiles Physical Health 04/03/2022 05/06/2022 05/27/2022 Physical Function Percentile 2 2 - Sleep Percentile 18* - 42 Fatigue Percentile 12 - 24* Pain Interference Percentile 10 - 24* PROMIS SOCIAL ROLE SCORE 03/05/2022 04/03/2022 05/27/2022 Social Role Satisfaction Percentile 21* 8 14 PROMIS Global Health Scale 03/05/2022 05/27/2022 05/27/2022 Physical Health Percentile 15 15 15 Mental Health Percentile 34 34 34 Percentiles provide an indication of how the patient's score ranks in relation to the general population. Higher percentile rankings indicate better function/quality of life. 50th percentile is the average of the general population and indicates half of respondents had a worse score. Depression Screening: PHQ-9 03/05/2022 04/03/2022 05/27/2022 Score 5 7 2 PHQ-9 Self-harm Question 03/05/2022 04/03/2022 05/27/2022 Thoughts that you would be better off , or of hurting yourself in some way 0 0 0 PHQ-9 Self-Harm (Item 9) response options: 0 Not at all 1 Several days 2 More than half the days 3 Nearly every day PHQ-9 Levels: 0-4 No to mild depression 5-9 Mild depression 10-14 Moderate depression 15-19 Moderately severe depression 20-27 Severe depression PHYSICAL EXAM: LMP 03/14/2022 (Approximate) Limited due to virtual visit DATA REVIEW No additional images reviewed today ASSESSMENT/PLAN (M54.16) Radiculopathy, lumbar region (primary encounter diagnosis) 1. Patient planning to go back to work on May 30. No orders placed today 2. Follow up: 2 months I spent 15 minutes discussing with the patient her current symptoms and future plans SIGNATURE: Konstantin Kirkland MD PATIENT NAME: Hannah Hendricks DATE: May 28, 2022 TIME: 1:56 PM PAGER: Layne Roland, attlucia that this document has been prepared under the direction and in the presence of Konstantin Kirkland MD on May 28, 2022 at 2:05 PM.[facility] [id number] NoteHNO ID: [id number] Author: Nehemias Suarez, PT, DPT Service: ? Author Type: Physical Therapist Type: Progress Notes Filed: 05/21/2022 3:10 PM Note Text: Episode Visit Count: 5 Therapist That Will Accept/Oversee The Plan Of Care: Nehemias Suarez Start of Care Date: 04/20/22 Onset Date: 03/20/22 Patient Identified by Name and Date of : Yes REHABILITATION AND SPORTS THERAPY PHYSICAL THERAPY PROGRESS REPORT PLAN OF CARE UPDATE: Assessment: Hannah Hendricks demonstrates good progress towards therapy goals over initial course of POC. Pt reports a significant improvement in sxs as indicated by decreased pain frequency and intensity since starting therapy. Pt states that her remaining sxs are located to L SI region and primarily occur with prolonged sitting, bending, and sneezing. Pt demonstrates improved R LE myotomal strength, however mild weakness persists compared to contralateral side. Pt demonstrates improved trunk AROM in all planes, pain free in all directions with exception of flexion. Pt's other remaining impairments include decreased core stabilization, dysfunctional movement patterns, and decreased LE extensibility. Pt will benefit from continued skilled therapy to address impairments to further decrease pain/sxs to facilitate return to PLOF.. Current prognosis is Good due to: current objective clinical presentation . Goals for Episode of Care: created on 04/20/22, updated 05/21/2022 Patient will demonstrate pain free trunk AROM in all planes -Patient will perform mobility tasks without pain/sxs---Partially Achieved -Patient will improve R LE myotome strength to 5/5---partially Achieved -patient will improve B/L FMS ASLR to a score > 2---Not Achieved [place] in home exercise program.---Achieved Patient will decrease pain rating by 2 points to meet minimal clinical important difference for numeric pain rating scale.---Achieved -Patient will demonstrate a functional half kneel B/L---new goal created 05/21/2022 -Patient will demonstrate a functional bird dog B/L---new goal created 05/21/2022 Patient Goals: decrease pain, improve posteiror chain extensibility---Achieved Planned Interventions, Frequency, and Duration: 1x/week, 4 weeks Total Number of Visits Planned: 4 Patient to be seen for Therapeutic exercise (71749), Neuromuscular re-education ([id number]), Manual therapy (33823), Therapeutic activities (56758), Self-shelter management (92203), Patient/Family/Caregiver Education PLAN FOR NEXT VISIT: update to [facility] SUBJECTIVE: Patient Reason for Visit: Pt plans on going back to work mid may if medically cleared. 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 Pt states that she is nervous to reintegrate her normal occupational and household activities. Pt states that per primary sxs are ;located to L SI region. Pt notes improved tolerance for mobility tasks and walking.. Functional Limitations: Comments Functional Limitation Comments: sneezing, bending Pain: Pain Pain Level: 2 Pain Location: Back Description: Aching Frequency: Continuous Post Treatment Pain Post Treatment Pain Level: No Change PROMIS Scales Higher is Better 04/20/2022 05/06/2022 05/20/2022 Phys Func - Score - 30 (moderate dysfunction) - Phys Func - Percentile - 2 % - Social Roles - Score - - - Social Role - Percentile - - - GH Physical - Score - - - GH Physical - Percentile - - - GH Mental - Score - - - GH Mental - Percentile - - - Self-Eff Symptom - Score 41 (Average) - 39 (Low) Self-Eff Symptom - Percentile 18 % - 14 % T-scores: mean of general population = 50. 5 points is clinically meaningfully difference Percentiles provide an indication of how the patient's score ranks in relation to the general population. Higher percentile rankings indicate better function/quality of life. 50th percentile is the average of the general population and indicates half of respondents had a worse score. Lower is Better 02/04/2022 03/05/2022 04/03/2022 Fatigue - Score 64 (moderate) 57 (mild) 62 (moderate) Fatigue - Percentile 8 % 24 % 12 % T-scores: mean of general population = 50. 5 points is clinically meaningfully difference Percentiles provide an indication of how the patient's score ranks in relation to the general population. Higher percentile rankings indicate better function/quality of life. 50th percentile is the average of the general population and indicates half of respondents had a worse score. OBJECTIVE MEASURES WITH LEVEL OF FUNCTION: Spine Observations L Lumbar Spine Palpation Tenderness: Gluteals, Piriformis, PSIS (posterior superior iliac spine) Lumbar Spine AROM Lumbar Flexion: Moderate limitation, Increased pain (L SI region) Lumbar Extension: Moderate limitation Lumbar R Side-Bend: Normal Lumbar L Side-Bend: Normal LE Flexibility R SLR Flexibility: passive ~50 (more content not included)...[facility] [id number] History of Present illness Narrative* Nehemias Suarez PT, DPT - 05/21/2022 1:24 PM EST Episode Visit Count: 5 Therapist That Will Accept/Oversee The Plan Of Care: Nehemias Suarez Start of Care Date: 04/20/22 Onset Date: 03/20/22 Patient Identified by Name and Date of : Yes REHABILITATION AND SPORTS THERAPY PHYSICAL THERAPY PROGRESS REPORT PLAN OF CARE UPDATE: Assessment: Hannah Hendricks demonstrates good progress towards therapy goals over initial courseof POC. Pt reports a significant improvement in sxs as indicated by decreased pain frequency and intensity since starting therapy. Pt states that her remaining sxs are located to L SI region and primarily occur with prolonged sitting, bending, and sneezing. Pt demonstrates improved R LE myotomal strength, however mild weakness persists compared to contralateral side. Pt demonstrates improved trunk AROM in all planes, pain free in all directions with exception of flexion. Pt's other remaining impairments include decreased core stabilization, dysfunctional movement patterns, and decreased LE extensibility. Pt will benefit from continued skilled therapy to address impairments to further decrease pain/sxs to facilitate return to PLOF.. Current prognosis is Good due to: current objective clinical presentation . Goals for Episode of Care: created on 04/20/22, updated 05/21/2022 Patient will demonstrate pain free trunk AROM in all planes -Patient will perform mobility tasks without pain/sxs---Partially Achieved -Patient will improve R LE myotome strength to 5/5---partially Achieved -patient will improve B/L FMS ASLR to a score > 2---Not Achieved [place] in home exercise program.---Achieved Patient will decrease pain rating by 2 points to meet minimal clinical important difference for numeric pain rating scale.---Achieved -Patient will demonstrate a functional half kneel B/L---new goal created 05/21/2022 -Patient will demonstrate a functional bird dog B/L---new goal created 05/21/2022 Patient Goals: decrease pain, improve posteiror chain extensibility---Achieved Planned Interventions, Frequency, and Duration: 1x/week, 4 weeks Total Number of Visits Planned: 4 Patient to be seen for Therapeutic exercise (92148), Neuromuscular re-education (23408), Manual therapy (55030), Therapeutic activities (96126), Self-shelter management (64163), Patient/Family/Caregiver Education PLAN FOR NEXT VISIT: update to [facility] SUBJECTIVE: Patient Reason for Visit: Pt plans on going back to work mid may if medically cleared. 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 Pt states that she is nervous to reintegrate her normal occupational and household activities. Pt states that per primary sxs are ;located to L SI region. Pt notes improved tolerance for mobility tasks and walking.. Functional Limitations: Comments Functional Limitation Comments: sneezing, bending Pain: Pain Pain Level: 2 Pain Location: Back Description: Aching Frequency: Continuous Post Treatment Pain Post Treatment Pain Level: No Change PROMIS Scales Higher is Better 04/20/2022 05/06/2022 05/20/2022 Phys Func - Score - 30 (moderate dysfunction) - Phys Func - Percentile - 2 % - Social Roles - Score - - - Social Role - Percentile - - - GH Physical - Score - - - GH Physical - Percentile - - - GH Mental - Score - - - GH Mental - Percentile - - - Self-Eff Symptom - Score 41 (Average) - 39 (Low) Self-Eff Symptom - Percentile 18 % - 14 % T-scores: mean of general population = 50. 5 points is clinically meaningfully difference Percentiles provide an indication of how the patient's score ranks in relation to the general population. Higher percentile rankings indicate better function/quality of life. 50th percentile is the average of the general population and indicates half of respondents had a worse score. Lower is Better 02/04/2022 03/05/2022 04/03/2022 Fatigue - Score 64 (moderate) 57 (mild) 62 (moderate) Fatigue - Percentile 8 % 24 % 12 % T-scores: mean of general population = 50. 5 points is clinically meaningfully difference Percentiles provide an indication of how the patient's score ranks in relation to the general population. Higher percentile rankings indicate better function/quality of life. 50th percentile is the average of the general population and indicates half of respondents had a worse score. OBJECTIVE MEASURES WITH LEVEL OF FUNCTION: Spine Observations L Lumbar Spine Palpation Tenderness: Gluteals, Piriformis, PSIS (posterior superior iliac spine) Lumbar Spine AROM Lumbar Flexion: Moderate limitation, Increased pain (L SI region) Lumbar Extension: Moderate limitation Lumbar R Side-Bend: Normal Lumbar L Side-Bend: Normal LE Flexibility R SLR Flexibility: passive ~50 L SLR Flexibility: passive ~50 R Hip Flexor Flexibility: FMS 1 L Hip Flexor Flexibility: FMS 1 LE Strength R Ankle Dorsiflexion (L4): 4+/5 R Great Toes Extension (L5, S1): 4+/5 Balance Static Standing Balance Comments: half knee: DN B/L, bird dog: Dn B/L Single Leg Stance: >30 sec ea TREATMENT: Therapeutic Exercise: 1: reassessment performed 2: nu step, L5 x 5 min, to challenge endurance/core strength 3: *posterior chain repair tech, supine, review 4: *hip ABD iso, review 5: *hip ADD iso, review 6: *piriformis stretch, cross body, L, 3 x 30 sec 7: *SMR via tiger tail to posterior chain, x 90 seconds ea 8: hip hinge training, with stick, x 15 9: lift, hip hinge, x 10 10: SLS, x 30 sec ea Skilled Intervention: Patient was educated in proper exercise technique and purpose for exercises. Reviewed and educated patient on additions/changes for home exercise program as above (*). Billing Therapeutic Exercise Treatment Minutes: 46 Total Treatment Time Minutes (timed/untimed): 46 Nehemias Suarez PT, SAMT [facility]23 Miscellaneous Notes* Telephone Encounter - Italia Ackerman RN - 05/07/2022 3:07 PM EST Will forward for review. documented in this encounterFair[facility]01-23-2023 History of Present illness Narrative* Juliano Urias, [employer]ESSOR - 05/07/2022 10:49 AM EST Episode Visit Count: 3 Therapist That Will Accept/Oversee The Plan Of Care: Nehemias Suarez Start of Care Date: 04/20/22 Onset Date: 03/20/22 REHABILITATION AND SPORTS THERAPY PHYSICAL THERAPY TREATMENT NOTE ASSESSMENT: Hannah Hendricks tolerated the session with decreased symptoms. She demonstrated a positive response/decreased discomfort after manual techniques. The patient will continue to benefit from ongoing skilled physical therapy to progress toward set goals. PLAN FOR NEXT VISIT: Continue gentle trunk stabilization SUBJECTIVE: Patient Reason for Visit: Patient is POW 6 on 05/01/22 . Patient reports increased pain in right SI, bilateral gluts and tail bone after riding stationery bike. I iced it and then got in ahot shower. Pain in groin this morning. Tingling in left lateral and anterior thigh. 2/10 with sitting in car Pain: Pain Pain Level: 5 Pain Location: (tailbone) Description: Sharp Frequency: Intermittent Post Treatment Pain Post Treatment Pain Level: 1 Post Treatment Pain Location: (tailbone region) OBJECTIVE MEASURES WITH LEVEL OF FUNCTION: Tenderness in L piriformis/glut region TREATMENT: Therapeutic Exercise: 1: Nustep, seat 8, arms, 9, 5 minutes ,L3 45 spm or greater 2: SKTC 5 x 10 seconds 3: AB with isometric hip adduction with ball 10 x 5 seconds 4: AB with isometric hip abduction with belt 15 x 5 seconds 5: AB with hooklying opposite UE/LE x 10 Skilled Intervention: Patient was educated in proper exercise technique and purpose for exercises. Skilled judgment was provided in selection of appropriate interventions. Correct performance of therapeutic exercises was facilitated with verbal and visual cuing. Manual Therapy: 1: STM's L/R pirifomis and glut region Skilled Intervention: Manual skills to improve joint mobility, ROM, and decrease pain. Utilized anatomy knowledge of the therapist, and assessment of patient's response to intervention. Billing Therapeutic Exercise Treatment Minutes: 30 Manual TherapyTreatment Minutes: 13 Total Treatment Time Minutes (timed/untimed): 48 Juliano Urias PTA documented in this encounterFair[facility]01-16-2023 History of Present illness Narrative* Juliano Urias PTA - 04/30/2022 1:54 PM EST Episode Visit Count: 2 Therapist That Will Accept/Oversee The Plan Of Care: Nehemias Suarez Start of Care Date: 04/20/22 Onset Date: 03/20/22 Patient Identified by Name and Date of : Yes REHABILITATION AND SPORTS THERAPY PHYSICAL THERAPY TREATMENT NOTE ASSESSMENT: Hannah Hendricks tolerated the session with expected muscle soreness. She demonstrated difficulty with sciatic nerve glides. Patient able to perform standing exercises without issue. The patient will continue to benefit from ongoing skilled physical therapy to progress toward set goals. PLAN FOR NEXT VISIT: Genlte trunk stabilization SUBJECTIVE: Patient Reason for Visit: Patient reports It's gotten where ai can do the stretches. No pain where the surgery was (incision) . I had surgery in December and March for a herniated disc. Still no bending twisting or lifting. Then patient reports that she is allowed to lift up to 20pounds. Daughter weighs 24 pounds which she is not lifting. Pain: Pain Pain Level: (4-5/10) Pain Location: Back Description: Aching;Dull Frequency: Continuous Post Treatment Pain Post Treatment Pain Level: No Change OBJECTIVE MEASURES WITH LEVEL OF FUNCTION: Hamstring tightness noted TREATMENT: Therapeutic Exercise: 1: Nustep, seat 8, arms, 9, 5 minutes , 45 spm or greater 2: SKTC 5 x 10 seconds 3: AB with isometric hip abduction 10 x 5 seconds 4: AB with isometric hip abduction with belt 15 x 5 seconds 5: Sciatic glide x 15 6: Hook lying june 10 x 7: AB Standing heel/toe raises x 10 8: AB standing june x 10 9: AB mini squat x 10 Skilled Intervention: Patient was educated in proper exercise technique and purpose for exercises. Reviewed and educated patient on additions/changes for home exercise program as above (*). Skilled judgment was provided in selection of appropriate interventions. Provided written instruction for home exercise program to facilitate proper performance and compliance. Correct performance of therapeutic exercises was facilitated with verbal and visual cuing. Billing Therapeutic Exercise Treatment Minutes: 42 Total Treatment Time Minutes (timed/untimed): 45 Juliano Urias PTA documented in this encounterFair[facility]01-11-2023 NoteHNO ID: [id number] Author: Konstantin Kirkland MD Service: ? Author Type: Physician Type: Progress Notes Filed: 04/25/2022 3:29 PM Note Text: SPINE SURGERY FOLLOW UP This is a virtual visit using Alternative video platform. It required patient-provider interaction for the medical decision making as documented below. SERVICE DATE: 04/25/2022 SURGERY DATE: 03/20/22 Hannah Hendricks is seen for 1 month post operative follow up. Patient is s/p R and L L4/5 redo microdiscectomy that took place on 03/20/2022. Overall, she reports that she is doing good. She started PT last Saturday, on 04/18, and had some soreness in the right leg and in the lower back. She has sharp and dull pain that radiates from the back region, where the surgery occurred, to the buttocks region. She believes that the pain she is experiencing is more muscle related.She does not wish to pursue any surgeries, and her work and personal family, has told her to take it slower. She says that nothing else has happened since her recent surgery. ANTIPLATELET OR ANTICOAGULATION STATUS: No Patient Entered Questionnaires Spine Questions 02/04/2022 03/05/2022 04/03/2022 Pain Location: Lower back Lower back Lower back Pain Duration: - - - Pain over last 6 months: - - - Symptoms from neck/cervical spine: No No No Employment Status: - Disabled due to back pain, permanently or temporarily - Off work 1 month or more due to back/neck pain: - Yes - Applied for/receive disability/WC due to low back/neck pain - Yes - Involved in law suit/legal claim: - - - Spine Red Flags 10/10/2021 Any type of cancer: No Unexplained fever: No Bowel or bladder disfunction: No Unintentional weight loss: No Osteoporosis: No Low Back Pain Questionnaires 04/20/2022 STarT Risk Score 3 (Medium risk for prolonged disability) STarT Distress Score 2 STarT Total Score 4 PROMIS Score Percentiles Physical Health 02/04/2022 03/05/2022 04/03/2022 Physical Function Percentile 2 4 2 Sleep Percentile 21* 10 18* Fatigue Percentile 8 24* 12 Pain Interference Percentile 1 27* 10 PROMIS SOCIAL ROLE SCORE 02/04/2022 03/05/2022 04/03/2022 Social Role Satisfaction Percentile 5 21* 8 PROMIS Global Health Scale 09/17/2021 01/07/2022 03/05/2022 Physical Health Percentile 31 7 15 Mental Health Percentile 63 43 34 Percentiles provide an indication of how the patient's score ranks in relation to the general population. Higher percentile rankings indicate better function/quality of life. 50th percentile is the average of the general population and indicates half of respondents had a worse score. Depression Screening: PHQ-9 02/04/2022 03/05/2022 04/03/2022 Score 5 5 7 PHQ-9 Self-harm Question 02/04/2022 03/05/2022 04/03/2022 Thoughts that you would be better off , or of hurting yourself in some way 0 0 0 PHQ-9 Self-Harm (Item 9) response options: 0 Not at all 1 Several days 2 More than half the days 3 Nearly every day PHQ-9 Levels: 0-4 No to mild depression 5-9 Mild depression 10-14 Moderate depression 15-19 Moderately severe depression 20-27 Severe depression PHYSICAL EXAM: LMP 03/14/2022 (Approximate) LIMITED DUE TO VIRTUAL VISIT DATA REVIEW No additional images reviewed today ASSESSMENT/PLAN (M54.16) Radiculopathy, lumbar region (primary encounter diagnosis) 1. Gabapentin ordered 2. Robaxin ordered 2. Follow up: 5 weeks I spent 15 minutes discussing with the patient her current symptoms and future plan I, Marquita Cash, attest this document has been prepared under the direction and in the presence of Konstantin Kirkland MD on April 25, 2022 at 2:17 PM. SIGNATURE: Konstantin Kirkland MD PATIENT NAME: Hannah Hendricks DATE: April 24, 2022 TIME: 3:15 PM PAGER:[facility] [id number] History of Present illness Narrative* Konstantin Kirkland MD - 04/25/2022 2:20 PM EST SPINE SURGERY FOLLOW UP This is a virtual visit using Alternative video platform. It required patient- provider interaction for the medical decision making as documented below. SERVICE DATE: 04/25/2022 SURGERY DATE: 03/20/22 Hannah Hendricks is seen for 1 month post operative follow up. Patient is s/p R and L L4/5 redo microdiscectomy that took place on 03/20/2022. Overall, she reportsthat she is doing good. She started PT last Saturday, on 04/18, and had some soreness in the right leg and in the lower back. She has sharp and dull pain that radiates from the back region, where the surgery occurred, to the buttocks region. She believes that the pain she is experiencing is more muscle related.She does not wish to pursue any surgeries, and her work and personal family, has told her to take it slower. She says that nothing else has happened since her recent surgery. ANTIPLATELET OR ANTICOAGULATION STATUS: No Patient Entered Questionnaires Spine Questions 02/04/2022 03/05/2022 04/03/2022 Pain Location: Lower back Lower back Lower back Pain Duration: - - - Pain over last 6 months: - - - Symptoms from neck/cervical spine: No No No Employment Status: - Disabled due to back pain, permanently or temporarily - Off work 1 month or more due to back/neck pain: - Yes - Applied for/receive disability/WC due to low back/neck pain - Yes - Involved in law suit/legal claim: - - - Spine Red Flags 10/10/2021 Any type of cancer: No Unexplained fever: No Bowel or bladder disfunction: No Unintentional weight loss: No Osteoporosis: No Low Back Pain Questionnaires 04/20/2022 STarT Risk Score 3 (Medium risk for prolonged disability) STarT Distress Score 2 STarT Total Score 4 PROMIS Score Percentiles Physical Health 02/04/2022 03/05/2022 04/03/2022 Physical Function Percentile 2 4 2 Sleep Percentile 21* 10 18* Fatigue Percentile 8 24* 12 Pain Interference Percentile 1 27* 10 PROMIS SOCIAL ROLE SCORE 02/04/2022 03/05/2022 04/03/2022 Social Role Satisfaction Percentile 5 21* 8 PROMIS Global Health Scale 09/17/2021 01/07/2022 03/05/2022 Physical Health Percentile 31 7 15 Mental Health Percentile 63 43 34 Percentiles provide an indication of how the patient's score ranks in relation to the general population. Higher percentile rankings indicate better function/quality of life. 50th percentile is the average of the general population and indicates half of respondents had a worse score. Depression Screening: PHQ-9 02/04/2022 03/05/2022 04/03/2022 Score 5 5 7 PHQ-9 Self-harm Question 02/04/2022 03/05/2022 04/03/2022 Thoughts that you would be better off , or of hurting yourself in some way 0 0 0 PHQ-9 Self-Harm (Item 9) response options: 0 Not at all 1 Several days 2 More than half the days 3 Nearly every day PHQ-9 Levels: 0-4 No to mild depression 5-9 Mild depression 10-14 Moderate depression 15-19 Moderately severe depression 20-27 Severe depression PHYSICAL EXAM: LMP 03/14/2022 (Approximate) LIMITED DUE TO VIRTUAL VISIT DATA REVIEW No additional images reviewed today ASSESSMENT/PLAN (M54.16) Radiculopathy, lumbar region (primary encounter diagnosis) 1. Gabapentin ordered 2. Robaxin ordered 2. Follow up: 5 weeks I spent 15 minutes discussing with the patient her current symptoms and future plan I, Marquita Cash, attest this document has been prepared under the direction and in the presence of Konstantin Kirkland MD on April 25, 2022 at 2:17 PM. SIGNATURE: Konstantin Kirkland MD PATIENT NAME: Hannah Hendricks DATE: April 24, 2022 TIME: 3:15 PM PAGER: documented in this [facility]23 History of Present illness Narrative* Nehemias Suarez PT, DPT - 04/20/2022 10:52 AM EST Episode Visit Count: 1 Therapist That Will Accept/Oversee The Plan Of Care: Nehemias Suarez Start of Care Date: 04/20/22 Onset Date: 03/20/22 Patient Identified by Name and Date of : Yes REHABILITATION AND SPORTS THERAPY PHYSICAL THERAPY EVALUATION PLAN OF CARE: Assessment: Hannah Ani Eladio presents s/p L4/L5 microdiscectomy surgery on 03/20/2022. Pt also hada discectomy at the same level in December 2021. Pt's sxs are better controlled since the surgeries but pt continues to experience diffuse lumbosacral pain. Pt's primary impairments include decreased trunk mobility, lumbopelvic stability/motor control deficits, dysfunctional movement patterns, anddecreased posterior chain extensibility. As a result of pain/sxs, pt has decreased tolerance for mobility tasks, ADLs, lifting, and recreational activities. Pt is currently on precautions from bending, R LE myotomal weakness, lifting and twisting, this therapist messaged surgeon to clarify how longthese restrictions remain in place. Based on history (chronicity), examination(lumbar, mobility, ADLs, recreational), presentation and clinical reasoning pt is appropriate for low complexity evaluation. Pt will benefit from skilled physical therapy to address impairments, postural re-ed, dynamic core stabilization, activity pacing, and functional training to decrease pain/sxs to minimize functional limitations. Prognosis for therapy is Good due to: current objective clinical presentation . Goals for Episode of Care: created on 04/20/22 through 05/20/22 Patient will demonstrate pain free trunk AROM in all planes -Patient will perform mobility tasks without pain/sxs -Patient will improve R LE myotome strength to 5/5 -patient will improve B/L FMS ASLR to a score > 2 [place] in home exercise program. Patient will decrease pain rating by 2 points to meet minimal clinical important difference for numeric pain rating scale. Patient Goals: decrease pain, improve posteiror chain extensibiltiy Planned Interventions, Frequency, and Duration: Current Frequency: 2x/week Duration: 4 weeks Total Number of Visits Planned: 8 Planned Treatment Interventions: Therapeutic exercise (48643);Neuromuscular re- education (47246);Manual therapy (77088);Therapeutic activities (23208);Self- shelter management (07921);Patient/Family/Caregiver Education Patient demonstrates good understanding of plan of care and treatment. The above goals and plan of care were discussed and agreed upon by patient/family. SUBJECTIVE: Hannah Hendricks is a 32 year old female seen today for chronic back pain and R LE radicular pain. Pt's started in spring, pt thinks that she injured her back while bending overand pulling weeds. Pt initially utilized neonatal intensive care nurse which did not resolve sxs. Pt then had Karen which revealed L4/L5, L5/S1 disc protrustion with impingement on L5/S1 nerve roots, R was more impacted than L side. Pt had surgery in 2021 for L4/L5 microdisectomy. Pt required a second surgery on 03/20/2022 secondary to exacerbation of sxs/re herniation. Pt's activity was previously most limited with sititng, drivintg, and mornings. Pt states that she had previously been laterally shifted towards left secondary to sxs. Pt states that she is fearful of movement and exacerbation ofsxs. 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 Pt states that her primary sxs currently are belt line pain (SI region). Pt had previously had nu mbness/tingling down R LE, some numbness to R thigh. Pt feels like her entire core/LE are weak fromnon use. Patient Goals: decrease pain, improve posteiror chain extensibiltiy Functional Limitations: Comments Functional Limitation Comments: lifting, sitting, picking up child, Prior Level of Function: Independent without limitations Intake Information: Prescription present Previous Treatment: Chiropractor ;Pain meds ;Self prescribed exercises;Acupuncture (gabapentin, steroid) Aquatic Screen: No Pain: Pain Pain Level: 4 Pain Location: Back Description: Aching Frequency: Continuous Post Treatment Pain Post Treatment Pain Level: No Change PROMIS Scales Higher is Better 03/05/2022 04/03/2022 04/20/2022 Phys Func - Score 33 (moderate dysfunction) 29 (severe dysfunction) - Phys Func - Percentile 4 % 2 % - Social Roles - Score 42 (mild dysfunction) 36 (moderate dysfunction) - Social Role - Percentile 21 % 8 % - GH Physical - Score 39.8 (Fair) - - GH Physical - Percentile 15 % - - GH Mental - Score 45.8 (Good) - - GH Mental - Percentile 34 % - - Self-Eff Symptom - Score - - 41 (Average) Self-Eff Symptom - Percentile - - 18 % T-scores: mean of general population = 50. 5 points is clinically meaningfully difference Percentiles provide an indication of how the patient's score ranks in relation to the general population. Higher percentile rankings indicate better function/quality of life. 50th percentile is the average of the general population and indicates half of respondents had a worse score. Lower is Better 02/04/2022 03/05/2022 04/03/2022 Fatigue - Score 64 (moderate) 57 (mild) 62 (moderate) Fatigue - Percentile 8 % 24 % 12 % T-scores: mean of general population = 50. 5 points is clinically meaningfully difference Percentiles provide an indication of how the patient's score ranks in relation to the general population. Higher percentile rankings indicate better function/quality of life. 50th percentile is the average of the general population and indicates half of respondents had a worse score. OBJECTIVE MEASURES WITH LEVEL OF FUNCTION: Posture / Alignment Posture: Forward head;Increased thoracic kyphosis;Rounded shoulders Lumbar Spine AROM Lumbar Flexion: (not performed secondary to post op precautions) Lumbar Extension: Major limitation;Increased pain Lumbar R Side-Bend: Moderate limitation Lumbar L Side-Bend: Moderate limitation;Increased pain (pain on Right side) LE PROM R Hip Flexion: 100 Degrees R Hip Internal Rotation: 30 Degrees (at 90) R Hip External Rotation: 40 Degrees (at 90, PARMINDER positive for tightness) L Hip Flexion: 10 Degrees L Hip Internal Rotation: 30 Degrees (at 90) L Hip External Rotation: 40 Degrees (at 90, PARMINDER positive for tightness) LE Flexibility Flexibility: Straight Leg Raise;Hip Flexor Flexibility R SLR Flexibility: passive ~ 40 L SLR Flexibility: passive ~ 50 R Hip Flexor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 AM PATIENT IDENTITY VERIFICATION COMPLETED USING TWO (2) IDENTIFIERS: Name and Date of confirmedby patient verbally. FALL SCREENING: Has the patient had 2 falls in the last year or 1 fall with injury or currently using an Ambulatory Assistive Device (Walker, Cane, Wheelchair, Crutches, etc.)? No PATIENT GENDER DATA: Female. status: : No status: NO. PATIENT RELEVANT IMPLANT DATA REVIEWED: Yes RADIOLOGY DEPARTMENT: MR; Exam(s) Completed: Spine: Lumbar spine PERIPHERAL IV DATA: Not applicable SIGNED BY: BEN GALVEZ RT(R) March 16, 2022 8:35 AM documented in this encounterFair[facility] Center12-01-2022 Miscellaneous Notes* Telephone Encounter - Britt Moreno - 2022 10:11 AM EST Physician: Dr Kirkland Call from patient requesting refill. Please E-Scribe Last OV: 03/05/22 with Asif Future OV: 05/17/22 with Asif Requested Prescriptions Pending Prescriptions Disp Refills methocarbamol (ROBAXIN-750) 750 mg tablet 40 tablet 0 Sig: Take 1 tablet by mouth three times daily as needed. Pharmacy Name: [facility] Phone #: [phone] Britt Louie Pss documented in this encounterFairfield [facility] Center11-28-2022 Miscellaneous Notes* Telephone Encounter - Kelsy Waterman RN - 03/12/2022 1:59 PM EST Call placed to patient. Patient informed of prescription available and MRI ordered. Provided with phone number for scheduling. Verbalizes understanding. * Telephone Encounter - Radha Dickens PA-C - 03/12/2022 1:42 PM EST Medrol dosepak sent to pharmacy, MRI ordered. * Telephone Encounter - Italia Ackerman RN - 03/12/2022 9:10 AM EST Patient called yesterday to online producer provider. Will forward for review. * Telephone Encounter - Darlene Ferrera - 03/12/2022 8:33 AM EST Patients first day working and states she is in extreme pain, feels she cannot take it, the top of her right leg and her lower back is stiff, states pain is 7 out of 10. Please call patient at [phone] documented in this encounterFairfield [facility] Center11-27-2022 Miscellaneous Notes* Plan of Care - Adelso Kelly MD - 03/11/2022 6:55 PM EST Neurosurgery Plan of Care Neurosurgery resident paged regarding pt with new onset low back stiffness and difficulty walking after having lifting restrictions removed after seeing Dr. Kirkland on Monday 03/05. Pt states being told lifting and bending restrictions were removed on Saturday and pt was cleared to go back to work. Started doing everything during the week, felt back was getting sore on , started icing back and taking prescribed medications. Yesterday, pt started having difficulty walking, now pt can barely walk. Now pt has sharp pain in low back with pain going in to hips and both legs, worse with coughing/sneezing, worse with sitting to standing. No weakness. No urinary/bowel incontinence. No new numbness tingling, no fever/chills. Advised pt to take scheduled tylenol and ibuprofen with scheduled robaxin and application of heating pad/ice to the area. Advised to call to the office to speak with Dr. Kirkland's outpatient team in the morning. Educated pt on red flag symptoms of urinary/bowel incontinence, leg weakness, decreased sensation, worsening low back pain, any of which would warrant an overnight visit to the nearest ED. Pt expressed understanding and agreed with the plan. Adelso Kelly MD PGY-2, Neurological Surgery Pager: [phone] Neurosurgery online producer: [id number] 7:15 PM 03/11/22 CURRENT OVERNIGHT RESIDENT Please page [phone] between 6:30 AM and 6:00PM documented in this encounterFairfield [facility] Center11-27-2022 Miscellaneous Notes* Telephone Encounter - Ximena Lewis RN - 03/11/2022 6:29 PM EST Patient calling regarding back surgery. Conferenced to Main [employer] expanding machine operator, Emili, to speak with provider online producer for Dr. Kirkland at phone number ( - - ). documented in this encounterFairfield [facility] Center11-21-2022 History of Present illness Narrative* Konstantin Kirkland MD - 03/05/2022 8:55 AM EST SPINE SURGERY FOLLOW UP SERVICE DATE: 03/05/2022 SURGERY DATE: 12/19/2021 S/p R L4/5 microdiscectomy Hannah Hendricks is seen for 10 week post operative follow up. Overall the patient doing well. She continues to improve. She only has minimal residual symptoms. No major concerns. ANTIPLATELET OR ANTICOAGULATION STATUS: No Patient Entered Questionnaires Spine Questions 01/07/2022 02/04/2022 03/05/2022 Pain Location: Lower back Lower back Lower back Pain Duration: - - - Pain over last 6 months: - - - Symptoms from neck/cervical spine: No No No Employment Status: - - Disabled due to back pain, permanently or temporarily Off work 1 month or more due to back/neck pain: - - Yes Applied for/receive disability/WC due to low back/neck pain - - Yes Involved in law suit/legal claim: - - - Spine Red Flags 10/10/2021 Any type of cancer: No Unexplained fever: No Bowel or bladder disfunction: No Unintentional weight loss: No Osteoporosis: No PROMIS Score Percentiles Physical Health 01/07/2022 02/04/2022 03/05/2022 Physical Function Percentile 4 2 4 Sleep Percentile 42 21* 10 Fatigue Percentile 8 8 24* Pain Interference Percentile 10 1 27* PROMIS SOCIAL ROLE SCORE 01/07/2022 02/04/2022 03/05/2022 Social Role Satisfaction Percentile 10 5 21* PROMIS Global Health Scale 09/17/2021 01/07/2022 03/05/2022 Physical Health Percentile 31 7 15 Mental Health Percentile 63 43 34 Percentiles provide an indication of how the patient's score ranks in relation to the general population. Higher percentile rankings indicate better function/quality of life. 50th percentile is the average of the general population and indicates half of respondents had a worse score. Depression Screening: PHQ-9 01/07/2022 02/04/2022 03/05/2022 Score 9 5 5 PHQ-9 Self-harm Question 01/07/2022 02/04/2022 03/05/2022 Thoughts that you would be better off , or of hurting yourself in some way 0 0 0 PHQ-9 Self-Harm (Item 9) response options: 0 Not at all 1 Several days 2 More than half the days 3 Nearly every day PHQ-9 Levels: 0-4 No to mild depression 5-9 Mild depression 10-14 Moderate depression 15-19 Moderately severe depression 20-27 Severe depression PHYSICAL EXAM: BP 118/78 (BP Site: Left Arm, BP Position: Sitting, BP Cuff Size: Regular Adult) Pulse 96 Ht 165.1 cm (5' 5) Wt 81.1 kg (178 lb 11.2 oz) LMP 10/30/2019 SpO2 98% BMI 29.74 kg/m Oriented x3 PERRL FS Motor: UE D 5/5, B 5/5, T 5/5, G 5/5, HI 5/5 LE HF 5/5, KE 5/5, DF 5/5, PF 5/5, EHL 5/5 Incision C/D/I DATA REVIEW No additional images reviewed today ASSESSMENT/PLAN (M54.16) Lumbar radiculopathy (primary encounter diagnosis) Okay to return to work with no restrictions Physical therapy ordered Follow up: 2 months SIGNATURE: Konstantin Kirkland MD PATIENT NAME: Hannah Hendricks DATE: March 05, 2022 TIME: 8:55 AM PAGER: documented in this encounterFairfield [facility] Center11-07-2022 Miscellaneous Notes* Telephone Encounter - Kelsy Waterman RN - 02/19/2022 10:40 AM EST Called [facility]. Per pharmacist pt was not able to coal picker prescription; was too soon for coal picker but able to coal picker today. Call placed to patient to update. Verbalizes understanding. * Telephone Encounter - Britt Louie Pss - 02/19/2022 10:20 AM EST The patient called stating when she went to [facility] to coal picker the Robaxin, the pharmacy told her that it was cancelled by our office the same day they received it. Please call patient to advise at [phone] documented in this encounterFairfield [facility] Center10-25-2022 History of Present illness Narrative* Konstantin Kirkland MD - 02/06/2022 7:01 AM EDT SPINE SURGERY FOLLOW UP SERVICE DATE: 02/06/2022 SURGERY DATE: 12/19/2021 S/p R L4/5 microdiscectomy Hannah Hendricks is seen for 6 week post operative follow up. Overall patient doing well. She reports mild flareup last week but has resolved. No major concerns. ANTIPLATELET OR ANTICOAGULATION STATUS: No Patient Entered Questionnaires Spine Questions 12/02/2021 01/07/2022 02/04/2022 Pain Location: Leg Lower back Lower back Pain Duration: 3-6 months - - Pain over last 6 months: Every day or nearly every day in the past 6 months - - Symptoms from neck/cervical spine: No No No Employment Status: Disabled due to back pain, permanently or temporarily - - Off work 1 month or more due to back/neck pain: No - - Applied for/receive disability/WC due to low back/neck pain Yes - - Involved in law suit/legal claim: No - - Spine Red Flags 10/10/2021 Any type of cancer: No Unexplained fever: No Bowel or bladder disfunction: No Unintentional weight loss: No Osteoporosis: No PROMIS Score Percentiles Physical Health 12/02/2021 01/07/2022 02/04/2022 Physical Function Percentile - 4 2 Sleep Percentile - 42 21* Fatigue Percentile 14 8 8 Pain Interference Percentile - 10 1 PROMIS SOCIAL ROLE SCORE 12/02/2021 01/07/2022 02/04/2022 Social Role Satisfaction Percentile 4 10 5 PROMIS Global Health Scale 06/12/2021 09/17/2021 01/07/2022 Physical Health Percentile 41 31 7 Mental Health Percentile 34 63 43 Percentiles provide an indication of how the patient's score ranks in relation to the general population. Higher percentile rankings indicate better function/quality of life. 50th percentile is the average of the general population and indicates half of respondents had a worse score. Depression Screening: PHQ-9 12/02/2021 01/07/2022 02/04/2022 Score 9 9 5 PHQ-9 Self-harm Question 12/02/2021 01/07/2022 02/04/2022 Thoughts that you would be better off , or of hurting yourself in some way 0 0 0 PHQ-9 Self-Harm (Item 9) response options: 0 Not at all 1 Several days 2 More than half the days 3 Nearly every day PHQ-9 Levels: 0-4 No to mild depression 5-9 Mild depression 10-14 Moderate depression 15-19 Moderately severe depression 20-27 Severe depression PHYSICAL EXAM: BP 131/78 (BP Site: Right Arm, BP Position: Sitting, BP Cuff Size: Regular Adult) Pulse 94 Temp36.9 C (98.4 F) (Temporal) Ht 165.1 cm (5' 5) Wt 79.7 kg (175 lb 12.8 oz) LMP 10/30/2019 BMI 29.25 kg/m Oriented x3 PERRL FS Motor: UE D 5/5, B 5/5, T 5/5, G 5/5, HI 5/5 LE HF 5/5, KE 5/5, DF 5/5, PF 5/5, EHL 5/5 Incision C/D/I DATA REVIEW No additional images reviewed today ASSESSMENT/PLAN (M51.26) Lumbar herniated disc (primary encounter diagnosis) Continue light duties for 4 more weeks. Gabapentin ordered Robaxin ordered Follow up: 4 weeks SIGNATURE: Konstantin Kirkland MD PATIENT NAME: Hannah Hendricks DATE: February 06, 2022 TIME: 7:02 AM PAGER: documented in this encounterFairfield [facility] Center10-24-2022 Miscellaneous Notes* Telephone Encounter - Italia Ackerman RN - 02/05/2022 1:37 PM EDT Work extension paperwork received, completed and faxed to number requested. Faxed verification received. documented in this encounterFairfield [facility] Center10-19-2022 Miscellaneous Notes* Telephone Encounter - Radha Dickens PA-C - 01/31/2022 3:39 PM EDT I called Hannah on 01/31/2022 at 3:40 PM. She states her right leg pain started this morning and has progressively gotten worse as she has been walking more. It moves down the lateral thigh to the knee and down to the toes. She states she has had these feelings before and she was diagnosed with hypokalemia. She is starting to take potassium supplementation. I have sent a medrol dosepak to her pharmacy for inflammation. She will try these two things and ifher symptoms do not improve she will call and let us know. * Telephone Encounter - Britt Louie Pss - 01/31/2022 3:33 PM EDT Patient called with complaints of severe Rt leg pain. She had surgery on 12/19/21. Please call to advise at [phone] documented in this encounterFairfield Medical Center10-11-2022 Miscellaneous Notes* Telephone Encounter - Italia Ackerman RN - 01/23/2022 9:34 AM EDT Letter faxed to number requested. Faxed verification received. documented in this [facility]09-07-2022 Miscellaneous Notes* Telephone Encounter - Radha Mederos - 12/20/2021 2:36 PM EDT Patient called stating that she would like a call back from Dr. Kirkland. She would like to thank him personally and go over how her surgery went. She states that her was not able to hear everything the doctor told him after the surgery b/c it was loud in the waiting area. Patient would appreciate a call back at [phone]. documented in this encounterFairfield Medical Center09-06-2022 NoteHNO ID: [id number] Author: BRENNON Ma Service: Anesthesiology Author Type: Casing In Line Feeder Type: Anesthesia Procedure Notes Filed: 12/19/2021 8:02 AM Note Text: ANESTHESIOLOGY PROCEDURE NOTE Airway General Information Procedure Start Time/Medication Administration: 12/19/2021 7:48 AM Patient location during procedure: OR Timeout Performed Pre-procedure: timeout performed Consent Obtained: Yes Patient identity confirmed: arm band Staffing CAA: BRENNON Ma Performed by: anesthesiologist and CAA Indications and Patient Condition Indications for airway management: anesthesia Preoxygenated: yes anesthesia circuit Method: asleep Cricoid Pressure: No Manual In-Line Stabilization: No Difficult Mask: No Final Airway Details Final airway type: endotracheal airway Final Endotracheal Airway: ETT Cuffed: yes Successful intubation technique: direct laryngoscopy Endotracheal tube insertion site: oral Blade: Cristopher Blade size: #4 ETT size (mm): 7.5 Measured from: lips Measurement (cm): 22 Placement verified by: chest auscultation and capnometry Cormack-Lehane Classification: grade I - full view of glottis Number of attempts at approach: 1 Failed airway: no Unrecognized esophageal intubation: no Airway not difficult SIGNATURE: BRENNON Ma PATIENT NAME: Hannah Hendricks DATE: December 19, 2021 TIME: 8:01 AM CSN: [id number] Miscellaneous Notes* Telephone Encounter - Maryann Matthews - 12/12/2021 3:26 PM EDT Short term disability paperwork has been sent to scanning. Date of service 04/15/21 documented in this encounterFairfield [facility] Center08-29-2022 Miscellaneous Notes* Telephone Encounter - Ashwini Cadet APRN.[facility] - 12/11/2021 9:38 AM EDT The following approved medication requests have been transmitted electronically. Requested Prescriptions Signed Prescriptions Disp Refills gabapentin (NEURONTIN) 300 mg capsule 120 capsule 0 Sig: Take 1 capsule in the morning Take 1 capsule in the afternoon Take 2 capsules at bedtime Ashwini Cadet APRN.[facility] * Telephone Encounter - Danisha Burden RN - 12/11/2021 9:14 AM EDT Images from the original note were not included. Per mychart encounter from 11/20/2021: Last prescribed 11/16/2021 at [facility] New prescription pended at this time reflecting the increase dosage documented in this encounterFairfield Medical Center08-25-2022 Miscellaneous Notes* Telephone Encounter - Italia Ackerman RN - 12/07/2021 3:50 PM EDT Note faxed as requested. Faxed verification received. * Telephone Encounter - Susie Myles - 12/07/2021 2:58 PM EDT Ankush from [facility] calling to get clinicals from neurosurgeon, saying he needs them to complete the prior auth for surgery. States that if he does not have them within 30 - 40 minutes, that the case will be closed and a new prior authorization would need to be completed. Ph. [phone] fax [phone] documented in this encounterFairfield Medical Center08-25-2022 History of Present illness Narrative* Konstantin Kirkland MD - 12/07/2021 3:03 PM EDT Images from the original note were not included. SPINE SURGERY NEW PATIENT PCP: Yana Ballard APRN.RESERVATIONS CLERK REFERRING PROVIDER: Dr. Feng Wright SUBJECTIVE HISTORY OF PRESENT ILLNESS: Hannah Hendricks is a 31 year old female. CHIEF COMPLAINT: low back and right leg pain PRECIPITATING EVENT: None DURATION OF SYMPTOMS: Greater Than 3 Months Complains of low back pain that radiates to right leg and L5 distribution. No left leg pain. The pain has been progressing over time. The pain is worse activity partially relieved with rest. Considermeasures overall mild relief. It is overall debilitating preventing patient daily activity more. She denies any weakness bowel bladder incontinence. PAIN EVALUATION 12/04/2021 1403 Pain Level: 5 Pain Location: Back-Lower right leg Description: Sharp;Shooting;Throbbing;Numbness;Tingling;Spasm Duration Amount of Time: 4 Duration Units: Months Frequency: Continuous Intervention/Comfort measure: Medication Comments: pt presents with lower back pain that radiates down her right leg; reports from her knee down there is a pins and needles feeling into toes; trouble sitting and states it feels like her right hip is pulling; did receive injection end of October and had no relief and it made her pain worse; hx of going to a chiropractor; was doing home exercises; unable to lay on her stomach; unable to pickher daughter up due to the increase in pain; avoiding steps; Pain Radiation: down the right thigh, below the right knee, and to the right foot/feet Aggravating Factors: Activity Alleviating Factors: Rest Pain Ratio: Pain in the leg(s) is greater than in the back DERMATOMAL DISTRIBUTION: Right: L5 AMBULATORY STATUS: Independent Community Distances ANTIPLATELET OR ANTICOAGULATION STATUS: No PREVIOUS CONSERVATIVE TREATMENTS: OTC NSAIDS for 3 Months or Greater (Ibuprofen) Muscle Relaxants Oral Steroids Epidural Blocks: Date(s) 10/2021 Membrane Stabilizers PREVIOUS SPINAL SURGERY: None ACTIVE PROBLEM LIST Known Health Problems: None PAST MEDICAL HISTORY Diagnosis Date NEGATIVE MEDICAL HISTORY PAST SURGICAL HISTORY Procedure Laterality Date NONE FAMILY HISTORY Problem Relation Age of Onset other (Other) Mother fibrocystic breast disease Colon Cancer Maternal Uncle Pancreatic Cancer Maternal Grandfather Social History Tobacco Use Smoking status: Former Packs/day: 0.80 Years: 5.00 Pack years: 4.00 Types: Cigarettes Quit date: 10/13/2013 Years since quittin.1 Smokeless tobacco: Never Tobacco comments: Last e cig 2 weeks ago Substance Use Topics Alcohol use: Yes Comment: a glass of wine twice a week Drug use: No ALLERGIES Allergen Reactions Penicillins Hives Shellfish Swelling, Shortness of Breath MEDICATIONS: methocarbamol (ROBAXIN-750) 750 mg tablet Take 1 tablet by mouth three times daily. gabapentin (NEURONTIN) 300 mg capsule Take 1 capsule by mouth three times daily for 30 days. levonorgestrel (MIRENA) 20 mcg/24 hours (7 yrs) 52 mg IUD 1 Each by INTRAUTERINE route one time only. Placed September 2020 POTASSIUM-99 ORAL Take by mouth as needed. [START ON 12/14/2021] mupirocin (BACTROBAN) 2 % ointment Apply 1/2 ointment with a cotton swab in each nostril 2x daily for five days preop methylPREDNISolone (MEDROL DOSE-PACK) 4 mg Dose-Pack As Instructed per package (Patient not taking:Reported on 12/04/2021) magnesium oxide (MAG-OX) 400 mg (241.3 mg magnesium) tablet Take 1 tablet by mouth once daily for 7days. REVIEW OF SYSTEMS: PAIN ASSESSMENT: See HPI. GENERAL: Denies fever, chills malaise and weight loss. HEENT: No recent change in vision or hearing. CARDIOVASCULAR: Denies chest pain, history of A-fib, valvular disease, or pacemaker/ICD. RESPIRATORY: Denies SOB, sputum production, and hemoptysis. GI: Denies GI ulcers, inflammatory disease, or liver disease. : Denies change in frequency or urgency, kidney disease, and burning with urination. MUSCULOSKELETAL: Negative for joint pain or swelling, back pain or muscle pain. SKIN: Denies rash or itching. PSYCHOLOGICAL: Denies uncontrolled depression or anxiety. NEURO: Denies CVA, seizures, headaches. ENDOCRINE: Denies diabetes, thyroid disease. HEMATOLOGY/LYMPHOLOGY: Denies cancer, bleeding or clotting disorders, anemia,and DVT's. ALLERGIC/IMMUNOLOGICAL: Denies risks for infection, or recent MRSA infections. Patient Entered Questionnaires Spine Questions 12/02/2021 Pain Location: Leg Pain Duration: 3-6 months Pain over last 6 months: Every day or nearly every day in the past 6 months Symptoms from neck/cervical spine: No Employment Status: Disabled due to back pain, permanently or temporarily Off work 1 month or more due to back/neck pain: No Applied for/receive disability/WC due to low back/neck pain Yes Involved in law suit/legal claim: No Spine Red Flags 10/10/2021 Any type of cancer: No Unexplained fever: No Bowel or bladder disfunction: No Unintentional weight loss: No Osteoporosis: No PROMIS Score Percentiles Physical Health 10/10/2021 11/16/2021 12/02/2021 Physical Function Percentile 4 0 - Sleep Percentile 10 12 - Fatigue Percentile - - 14 Pain Interference Percentile 1 4 - PROMIS SOCIAL ROLE SCORE 12/02/2021 Social Role Satisfaction Percentile 4 PROMIS Global Health Scale 11/30/2019 06/12/2021 09/17/2021 Physical Health Percentile 41 41 31 Mental Health Percentile 53 34 63 Percentiles provide an indication of how the patient's score ranks in relation to the general population. Higher percentile rankings indicate better function/quality of life. 50th percentile is the average of the general population and indicates half of respondents had a worse score. Depression Screening: PHQ-9 12/02/2021 Score 9 PHQ-9 Self-harm Question 12/02/2021 Thoughts that you would be better off , or of hurting yourself in some way 0 PHQ-9 Self-Harm (Item 9) response options: 0 Not at all 1 Several days 2 More than half the days 3 Nearly every day PHQ-9 Levels: 0-4 No to mild depression 5-9 Mild depression 10-14 Moderate depression 15-19 Moderately severe depression 20-27 Severe depression OBJECTIVE: PHYSICAL EXAM BP 119/75 (BP Site: Left Arm, BP Position: Sitting, BP Cuff Size: Regular Adult) Pulse 67 Temp 36.4 C (97.6 F) (Temporal) Ht 165.1 cm (5' 5) Wt 79.2 kg (174 lb 9.6 oz) LMP 10/30/2019 BMI29.05 kg/m Oriented x3 PERRL FS Motor: UE D 5/5, B 5/5, T 5/5, G 5/5, HI 5/5 LE HF 5/5, KE 5/5, DF 5/5, PF 5/5, EHL 5/5 Reflexes 2+ Gait is normal NEURO TESTS: None DATA REVIEW MRI lumbar spine show L4-5 lateral recess stenosis due to herniated disc causing moderate to severestenosis at the traversing root level. ASSESSMENT/PLAN (M54.16) Radiculopathy, lumbar region (primary encounter diagnosis) Patient with symptoms of right L5 radiculopathy over 6 weeks. Conservative management over only moderately. Is overall debilitating patient preventing her daily activity and work and holding her kids. Procedure right L4-5 microdiscectomy Follow up: for preoperative evaluation SIGNATURE: Konstantin Kirkland MD PATIENT NAME: Hannah Hendricks DATE: December 07, 2021 TIME: 3:03 PM PAGER: documented in this [facility] History and physical note * Barbara James APRN.RESERVATIONS CLERK - 12/06/2021 1:50 PM EDT HISTORY AND PHYSICAL EXAMINATION SERVICE DATE: 12/06/2021 SERVICE TIME: 2:00 PM PRIMARY CARE PHYSICIAN: Yana Ballard APRN.MANDEEP REASON FOR VISIT: Hannah Hendricks is a 31 year old female who is scheduled for LAMINECTOMY DISCECTOMY LUMBAR LEVEL1 at the request of Dr. Konstantin Kirkland for consultation. My final recommendation will be communicated back to the requesting physician by way of shared medical record or letter. The patient has the following: ACTIVE PROBLEM LIST Known Health Problems: None Subjective CHIEF COMPLAINT: Pre-op exam HPI: This is a 31 year old female that is scheduled for the above procedure. Patient has a history of back pain since July 2021 when she was gardening. She has been following up with a chiropractor and it has made the pain worse. She states pain with numbness and tingling to her right leg. She hastried an injection and oral medications without relief. Denies any incontinence. PAST MEDICAL HISTORY Diagnosis Date NEGATIVE MEDICAL HISTORY PAST SURGICAL HISTORY Procedure Laterality Date NONE FAMILY HISTORY Problem Relation Age of Onset other (Other) Mother fibrocystic breast disease Colon Cancer Maternal Uncle Pancreatic Cancer Maternal Grandfather SOCIAL HISTORY: Social History Tobacco Use Smoking status: Former Packs/day: 0.80 Years: 5.00 Pack years: 4.00 Types: Cigarettes Quit date: 10/13/2013 Years since quittin.1 Smokeless tobacco: Never Tobacco comments: Last e cig 2 weeks ago Substance Use Topics Alcohol use: Yes Comment: a glass of wine twice a week Drug use: No Prior to Admission medications as of 12/06/21 1402 Medication Sig Last Dose Taking methocarbamol (ROBAXIN-750) 750 mg tablet Take 1 tablet by mouth three times daily. Yes gabapentin (NEURONTIN) 300 mg capsule Take 1 capsule by mouth three times daily for 30 days. Yes levonorgestrel (MIRENA) 20 mcg/24 hours (7 yrs) 52 mg IUD 1 Each by INTRAUTERINE route one time only. Placed September 2020 Yes POTASSIUM-99 ORAL Take by mouth as needed. mupirocin (BACTROBAN) 2 % ointment Apply 1/2 ointment with a cotton swab in each nostril 2x daily for five days preop methylPREDNISolone (MEDROL DOSE-PACK) 4 mg Dose-Pack As Instructed per package Patient not taking: Reported on 12/04/2021 magnesium oxide (MAG-OX) 400 mg (241.3 mg magnesium) tablet Take 1 tablet by mouth once daily for 7days. No medication comments found. ALLERGIES Allergen Reactions Penicillins Hives Shellfish Swelling, Shortness of Breath COVID VACCINATION STATUS: Not vaccinated REVIEW OF SYSTEMS: PAIN ASSESSMENT: Pain Pain Level: 5 Pain Location: Leg-Right (into buttocks and hip) Description: Aching;Sharp;Other: See comment (pins and needles) Frequency: Continuous Intervention/Comfort measure: Reposition;Relaxation;Cold General: No weight loss, malaise or fevers. Neuro: No history of TIA's, stroke, FILER FINISH tumor, impaired sensorium, hemiplegia, paraplegia or quadraplegia. No neurological symptoms or problems. Respiratory: No history of current cough or dyspnea, or pneumonia in the past 6 weeks. No history of respiratory/pulmonary symptoms or problems. Cardiovascular: No history of HTN requiring medication, no history of angina, CHF, FL, cardiac surgery or stents. Denies rest pain, gangrene or revascularization/amputation for PVD. No history of cardiovascular symptoms or problems. GI: No history of GI symptoms or problems. No history of esophageal varices, recent ascites, or ETOH greater than 2 drinks per day. : No history of dysuria, frequency or incontinence,, stones or chronic kidney disease SHIRRING TENDER: Negative for abnormal vaginal bleeding, abnormal vaginal discharge. : Denies, Patient's last menstrual period was 10/30/2019. Endocrine: No history of diabetes. Has not taken steroids within the past 30 days. No history of endocrinological symptoms or problems. Hematology: No history of bleeding or clotting disorder. Pt is not taking anti- coagulation or platelet medications. No history of hematological symptoms or problems. Oncology: No history of CA metastasis, chemo within 30 days, or radiotherapy within 90 days. Has not lost 10% of body wt in 6 months. No history of oncological symptoms or problems. Psych: No history of psychiatric symptoms or problems. Musculoskeletal: See HPI Skin: Negative for lesions, rash and itching. Objective PHYSICAL EXAM: VITALS: BP 111/76 Pulse 73 Temp (Src) 97.3 (Temporal Artery) Resp 16 Ht 5' 5 (1.65m) Wt 174 lb 3.2 oz (79.0kg) SpO2 100% LMP 10/30/2019 BMI 28.99 kg/(m^2). General: Alert and oriented, No acute distress Skin: Normal color, no rash, no lesions. HEENT: EOM, pupils equal, round and reactive. Cardiovascular: Normal S1 & S2, no rubs, murmurs or gallops. No JVD. Pulse regular. Lungs: Normal breath sounds, no wheezes or crackles. Abdomen: Soft, non-tender, no rigidity., No masses or organomegaly. Extremities: No deformity, no edema or tenderness, no joint swelling or clubbing. Neurological: Normal cognition and motor skills. Gait normal. No weakness or sensory deficit. Pulses: Not examined Diagnostic tests reviewed for today's visit: Labs pending 12/06/2021 EKG 11/15/21 NORMAL SINUS RHYTHM RSR' OR QR PATTERN IN V1 SUGGESTS RIGHT VENTRICULAR CONDUCTION DELAY BORDERLINE ECG Assessment/Plan No problem-specific Assessment & Plan notes found for this encounter. METS: Take care of self; that is eating, dressing, bathing, using the toilet (2.75 METs) Walk a block or two on level ground (2.75 METs) Climb a flight of stairs or walk up a hill (5.50 METs) Patient denies any chest pain or undue shortness of breath with the above physical activity. ASA Class: 2 ANESTHESIA FINDINGS: Intubation History: No history of difficult intubation Significant Anesthesia Considerations: None Airway Exam: General: Normal appearance Mallampati Score is CLASS II ULBT: Class I - Lower incisors can bite the upper lip above the kalen line Neck: Normal appearance and function, Distance from hyoid to mentum during neck extension is at least 3 finger breaths Mouth: Normal tongue size and Mouth opening greater than 2 finger breaths Dentition: Intact Airway History: No prior intubation Sleep Apnea Probability Snores loudly: No Tired, fatigued or sleepy in daytime: No Stops breathing or choking/gasping during sleep: No High blood pressure: No Sleep Apnea Probability Score 12/05/2021 Sleep Apnea Screen V2 4 (Sleep study not recommended) PLAN This patient is optimally prepared for surgery LABS CONSULTS: Patient does not require consults for optimization at this time. The Following Tests/Procedures Have Been Initiated: Orders Placed This Encounter BMP Standing Status: Future Standing Expiration Date: 02/05/2022 CBC with Differential Standing Status: Future Standing Expiration Date: 02/05/2022 Confirm Blood Type Standing Status: Future Standing Expiration Date: 02/05/2022 Order Specific Question: Did Blood Bank direct you to place this order: Answer: No - Presurgical Workflow Type and Screen, 30 day Standing Status: Future Standing Expiration Date: 02/05/2022 POTASSIUM-99 ORAL Sig: Take by mouth as needed. Planned Anesthetic: Per anesthesia choice Instructions Given to Patient: Instructions located in the after visit summary. Patient given verbal and written preop instructions and voices comprehension and compliance. SIGNATURE: Barbara James APRN.CNP PATIENT NAME: Hannah Hendricks DATE: December 06, 2021 TIME: 2:00 PM documented in this [facility]08-24-2022 Instructions* Patient Instructions* Barbara James APRN.CNP - 12/06/2021 7:49 AM EDT PATIENT PREOPERATIVE INSTRUCTIONS Konstantin Kirkland MD has scheduled you for your procedure at this surgery center: [facility]: [phone] --[address] [place] [address]. On your scheduled day of surgery, please report to Patient Registration, ground floor Please read below carefully for your personalized instructions. Dietary Restrictions: - No solid food after midnight. - You may have 12 ounces of clear liquids (water, clear juices such as apple juice or gatorade, carbonated beverages, clear tea, black coffee, jello) until 2 hours before scheduled arrival at facility. Medications: Unless instructed differently below, stay on all of your medications until your surgery. Approved medications to take the morning of surgery with a sip of water: Gabapentin if normally taken in the morning If you start any new medications after today's visit, please contact the surgeon's office. Blood Thinning Medications: - Stop NSAIDS (Ibuprofen, Advil, Aleve, Motrin, Celebrex, Mobic, etc.) 7 days before surgery, as directed by your surgeon. - Stop Vitamin E, ALL multi-vitamins, herbals and dietary supplements 7 days before surgery. - You may take Tylenol (Acetaminophen) or any of your pain medications that do not contain aspirin or NSAIDS as needed. Important Reminders: - Candy, mints, and tobacco products are NOT permitted the morning of surgery. - Hearing aids, dentures and glasses may be worn the morning of surgery. - NO jewelry, body piercings, makeup, hairpins or contacts are to be worn the day of surgery. If you develop symptoms such as a fever, cold, or flu, or have other changes to your health within TWO DAYS of scheduled surgery or the morning of surgery, please contact the surgery center above. Personal Belongings: -Please have photo ID and insurance cards. -If you do not have a copy of advance directives on file with us, please bring a copy with you on the day of surgery. - Leave ALL valuables and money at home or with family members. For Outpatient Procedures: - YOU MUST HAVE A RESPONSIBLE RENTAL CAR FERRY DRIVER TAKE YOU HOME. A CABLE TELEVISION LINE TECHNICIAN OR FLOOR SCRAPER CANNOT BE MADE A RESPONSIBLE RENTAL CAR FERRY DRIVER. - We recommend that a responsible person stays with you overnight to take care of you. - You cannot stay in a hotel alone after outpatient surgery. You will not be permitted to have yoursurgery, if you do not have someone to take care of you. Arrival Time for Surgery: - The Surgery Center or hospital where you are having surgery will call the afternoon before surgery (or Saturday for Saturday surgery) with a scheduled arrival time. - If you have not heard by 4 pm, please contact the surgery center above. Please be aware that emergency situations arise, which may delay or change your surgical time. If this happens, we will notify you as soon as possible and regret any inconvenience. If you already have an Advance Directive, please fax a copy to [phone] or email to for it to be added to your chart. If you do not have an Advance Directive, you can find the appropriate form and more information at [email or web address]. We recommend that youcomplete the Advance Directive form found on the website and bring it with you the day of your surgery. It can be witnessed and scanned into your chart that day. documented in this encounterFair[facility]08-[facility]-2022 Nurse Note* Italia Ackerman RN - 12/04/2021 3:50 PM EDT Neuro SPINE CARE COORDINATION PRE-OP VISIT Met with patient and family member for pre op education. Given both written and verbal instructionsre : Skin prep, wound care, pain management and post op restrictions. Provided to patient: [facility] Surgery Guide, skin prep supplies, Spine Surgery Pre/post op education packet. Yes. Reviewed with patient to report to the registration desk for surgery? Yes. Reviewed with the patient that a surgery roofing sales representative will call the working day prior to surgery to confirm surgery time? Yes. Patient aware eat nothing after midnight prior to surgery, clear liquids only until 2 hours before report time. Yes. Patient aware surgery will be OUTPATIENT. Discussed care post discharge : Self care. Does patient have transportation to and from surgery ? Yes. Falls Education provided ? Yes Nasal swab obtained ? No. Patient instructed in mupirocin treatment : Prescription will be sent to preferred pharmacy. Questions answered and patient and family member voice(s) understanding via teach back. Additional Comments : Post -op Support. Italia Ackerman RN Neuro SPINE CARE COORDINATION SURGERY SCHEDULING Patient accepts surgery date of 12/19/[address] Kirkland. Planned procedure is right L4-5 microdiscectomy. PACC will be scheduled by office. NewsFixedquest : N/A Medications reviewed : Yes. Meds to be stopped prior to surgery : NSAIDS. Additional pre op clearances needed : none. Any implanted devices : No. Transplant History No. Patient will get optimization lab work : to be completed at [facility]. Questions answered. Patient verbalizes understanding via teach back. Additional comments : Informed to call with any questions or concerns. Italia Ackerman RN documented in this encounterFair[facility] Center08-22-2022 History of Present illness Narrative* Ashwini Cadet, OPAL.RESERVATIONS CLERK - 12/04/2021 11:32 AM EDT VIRTUAL VISIT PROGRESS NOTE This is a virtual visit using Fixmo video visit. It required patient-provider interaction for themedical decision making as documented below. Hannah Hendricks is a 31 year old female seen for follow up. HISTORY REVIEWED (electronic chart updated): PAST MEDICAL HISTORY Diagnosis Date NEGATIVE MEDICAL HISTORY PAST SURGICAL HISTORY Procedure Laterality Date NONE FAMILY HISTORY Problem Relation Age of Onset other (Other) Mother fibrocystic breast disease Colon Cancer Maternal Uncle Pancreatic Cancer Maternal Grandfather Social History Tobacco Use Smoking status: Former Packs/day: 0.80 Years: 5.00 Pack years: 4.00 Types: Cigarettes Quit date: 10/13/2013 Years since quittin.1 Smokeless tobacco: Never Tobacco comments: sometimes does E-cig but not very often Substance Use Topics Alcohol use: Yes Comment: occassionally - wine or mixed drink Drug use: No Current Outpatient Medications Medication Sig methocarbamol (ROBAXIN-750) 750 mg tablet Take 1 tablet by mouth three times daily. methylPREDNISolone (MEDROL DOSE-PACK) 4 mg Dose-Pack As Instructed per package gabapentin (NEURONTIN) 300 mg capsule Take 1 capsule by mouth three times daily for 30 days. magnesium oxide (MAG-OX) 400 mg (241.3 mg magnesium) tablet Take 1 tablet by mouth once daily for 7days. levonorgestrel (MIRENA) 20 mcg/24 hours (7 yrs) 52 mg IUD 1 Each by INTRAUTERINE route one time only. Placed September 2020 No current facility-administered medications for this visit. ALLERGIES Allergen Reactions Penicillins Hives Shellfish Swelling, Shortness of Breath REVIEW OF SYSTEMS: GENERAL: slow improvement in pain PHYSICAL EXAMINATION: VIDEO EXAM: (if completed, performed via video enabled technology) GENERAL: alert and appropriate, in mild distress ASSESSMENT: (M51.26) Lumbar disc herniation (primary encounter diagnosis) (M54.16) Radiculopathy, lumbar region Patient presents via Zoom virtual visit for follow-up She continues to have the lower back pain that radiates down the right posterior lower extremity She reports that for 3 hours throughout the day she is able to function Reports that she is trying to stay She is not lifting her daughter this is helped reduce her pain She has been using a recliner for hours a day and reports that her pain is reduced when she is reclined all the way back. When she goes to sit up her pain returns Patient reports that her labs have shown a low potassium and she has been eating bananas and [id number]. She is not sure if she should be on prescription strength and has reached out to her PCP She reports walking decreases her pain but she is still experiencing the pins and needles She reports throbbing in the low back and right buttocks She has been using a comfy cushion she purchased from [employer] She has an appt today with Dr. Kirkland. PLAN: Appt with Dr. Kirkland today Trying to stretch Continue gabapentin and robaxin as needed 4. Follow up to be determined There are no Patient Instructions on file for this visit. I spent a total of 20 minutes on the date of the service which included preparing to see the patient, [id number] patient care, and completing clinical documentation Ashwini Cadet APRN.CNP documented in this encounterFair[facility] Center08-12-2022 Miscellaneous Notes* Telephone Encounter - Ashwini Cadet APRN.CNP - 11/24/2021 3:25 PM EDT Paperwork completed * Telephone Encounter - Kristan Castellano Ma - 11/23/2021 10:30 AM EDT STD paperwork received via fax. Please allow 7-10 business days for completion. Forwarded to provider for review. documented in this encounterFair[facility] Center08-10-2022 History of Present illness Narrative* Ashwini Cadet, OPAL.RESERVATIONS CLERK - 11/22/2021 10:05 AM EDT VIRTUAL VISIT PROGRESS NOTE This is a virtual visit using Fixmo video visit. It required patient-provider interaction for themedical decision making as documented below. Hannah Hendricks is a 31 year old female seen for follow up. HISTORY REVIEWED (electronic chart updated): PAST MEDICAL HISTORY Diagnosis Date NEGATIVE MEDICAL HISTORY PAST SURGICAL HISTORY Procedure Laterality Date NONE FAMILY HISTORY Problem Relation Age of Onset other (Other) Mother fibrocystic breast disease Colon Cancer Maternal Uncle Pancreatic Cancer Maternal Grandfather Social History Tobacco Use Smoking status: Former Packs/day: 0.80 Years: 5.00 Pack years: 4.00 Types: Cigarettes Quit date: 10/13/2013 Years since quittin.1 Smokeless tobacco: Never Tobacco comments: sometimes does E-cig but not very often Substance Use Topics Alcohol use: Yes Comment: occassionally - wine or mixed drink Drug use: No Current Outpatient Medications Medication Sig methocarbamol (ROBAXIN-750) 750 mg tablet Take 1 tablet by mouth three times daily. methylPREDNISolone (MEDROL DOSE-PACK) 4 mg Dose-Pack As Instructed per package gabapentin (NEURONTIN) 300 mg capsule Take 1 capsule by mouth three times daily for 30 days. potassium chloride ER (K-DUR, KLOR-CON) 20 mEq tablet Take 1 tablet by mouth once daily for 7 days. magnesium oxide (MAG-OX) 400 mg (241.3 mg magnesium) tablet Take 1 tablet by mouth once daily for 7days. levonorgestrel (MIRENA) 20 mcg/24 hours (7 yrs) 52 mg IUD 1 Each by INTRAUTERINE route one time only. Placed September 2020 No current facility-administered medications for this visit. ALLERGIES Allergen Reactions Penicillins Hives Shellfish Swelling, Shortness of Breath REVIEW OF SYSTEMS: GENERAL: fatigued PHYSICAL EXAMINATION: VIDEO EXAM: (if completed, performed via video enabled technology) GENERAL: alert and appropriate, in moderate distress ASSESSMENT: (M51.26) Lumbar disc herniation (primary encounter diagnosis) (M54.16) Radiculopathy, lumbar region Patient presents for a virtual follow up visit Patient reports that she continues to experience no improvement from her lower back pain that is radiating down the right posterior lower extremity She is experiencing [id number]-npxginw and tingling in the right leg and feet/toes She has increased pain with walking. The pain is stabbing and then shoots down the left sciatica She reports that she has been laying on a firm mattress She reports she is most relaxed laying on her side with a pillow between her legs She reports her pain in the morning is a 7-8 out of 10 She has an appointment with Dr. Chaidez on 12-04-2021 She is currently taking gabapentin 1200 mg daily and Robaxin 750 mg 3 times a day She has spoken to her employer and they recommended short-term leave. Patient reports that they will fax the paperwork sometime today PLAN: Waiting for short-term paperwork to be faxed. Once received we will complete Patient has an upcoming appointment with neurosurgery on 12-04 There are no Patient Instructions on file for this visit. I spent a total of 19 minutes on the date of the service which included preparing to see the patient, [id number] patient care, and completing clinical documentation Ashwini Cadet APRN.CNP documented in this encounterFairfield [facility] Center08-05-2022 History of Present illness Narrative* Ashwini Cadet APRN.CNP - 11/17/2021 9:42 AM EDT VIRTUAL VISIT PROGRESS NOTE This is a virtual visit using Fixmo video visit. It required patient-provider interaction for themedical decision making as documented below. Hannah Hendricks is a 31 year old female seen for follow up. HISTORY REVIEWED (electronic chart updated): PAST MEDICAL HISTORY Diagnosis Date NEGATIVE MEDICAL HISTORY PAST SURGICAL HISTORY Procedure Laterality Date NONE FAMILY HISTORY Problem Relation Age of Onset other (Other) Mother fibrocystic breast disease Colon Cancer Maternal Uncle Pancreatic Cancer Maternal Grandfather Social History Tobacco Use Smoking status: Former Smoker Packs/day: 0.80 Years: 5.00 Pack years: 4.00 Types: Cigarettes Quit date: 10/13/2013 Years since quittin.1 Smokeless tobacco: Never Used Tobacco comment: sometimes does E-cig but not very often Substance Use Topics Alcohol use: Yes Comment: occassionally - wine or mixed drink Drug use: No Current Outpatient Medications Medication Sig methylPREDNISolone (MEDROL DOSE-PACK) 4 mg Dose-Pack As Instructed per package gabapentin (NEURONTIN) 300 mg capsule Take 1 capsule by mouth three times daily for 30 days. potassium chloride ER (K-DUR, KLOR-CON) 20 mEq tablet Take 1 tablet by mouth once daily for 7 days. magnesium oxide (MAG-OX) 400 mg (241.3 mg magnesium) tablet Take 1 tablet by mouth once daily for 7days. cyclobenzaprine (FLEXERIL) 10 mg tablet Take 1 tablet by mouth every 8 hours as needed for up to 5 days. levonorgestrel (MIRENA) 20 mcg/24 hours (7 yrs) 52 mg IUD 1 Each by INTRAUTERINE route one time only. Placed September 2020 No current facility-administered medications for this visit. ALLERGIES Allergen Reactions Penicillins Hives Shellfish Swelling, Shortness of Breath REVIEW OF SYSTEMS: GENERAL: flare up of pain PHYSICAL EXAMINATION: VIDEO EXAM: (if completed, performed via video enabled technology) GENERAL: alert and appropriate, in mild distress ASSESSMENT: (M51.26) Lumbar disc herniation (primary encounter diagnosis) (M54.16) Radiculopathy, lumbar region Patient presents via virtual visit for follow-up Patient reports that she had a right L5-S1 transforaminal injection 11-02-2021 patient reports that she experienced a bad flare after the injection for 3 days. She reports that the pain subsided for 4days and now she is back to experiencing horrible back pain Patient reports that she saw the chiropractor which made her pain worse Patient is experiencing sharp, shooting pain in the right leg and a lot of muscle spasms She reports difficulty walking. She called 911 and was transported to the [facility]. While in the ER she was given fentanyl, Valium and morphine Patient was given Robaxin 500 mg 3 times daily for 10 days. She reports medication has not been very beneficial. Patient reports that she was given a prescription for Flexeril. She has not started this medication but after discussion we will give it a try Patient reports she tried ice but it tensed up her muscles. She reports she will try the heating pad. She tried to get into the bathtub to soak in the hot water but had difficulty getting out of the tub Patient reports she is currently taking gabapentin 300 mg BID, discussed increasing to TID for 5-7 days to see how she responds. Consider titration to 1 in the AM, 1 in the afternoon and 2 at bedtime Discussed Medrol Dosepak Discussed to spine surgery consult Discussed sending a Fixmo message in a week to report how she is doing PLAN: 1. The following approved medication requests have been transmitted electronically. Signed Prescriptions Disp Refills methylPREDNISolone (MEDROL DOSE-PACK) 4 mg Dose-Pack 1 Package 0 Sig: As Instructed per package 2. Start Flexeril rx from the ER 3. Order placed for spine surgery consult with Dr. Kirkland 4. Send a message in a week to report update There are no Patient Instructions on file for this visit. I spent a total of 25 minutes on the date of the service which included preparing to see the patient, [id number] patient care, completing clinical documentation and ordering medications, tests, or procedures Ashwini Cadet APRN.CNP documented in this encounterFairfield Medical Center08-04-2022 Miscellaneous Notes* Telephone Encounter - Elli South - 11/16/2021 4:55 PM EDT Patient was phoned and given the message below. Patient verbalized understanding. Elli South * Telephone Encounter - Alma Bello APRN.CNP - 11/16/2021 3:58 PM EDT Please inform patient I will send over for gabapentin 300mg three times a day rather than the twicea day she is taking. I do not see the note/recommendation from the pain management but I will increase this at this time to 900mg daily. I will discuss this with pain management so your pain will be better controlled. * Telephone Encounter - Elli Brannon - 11/16/2021 11:53 AM EDT Patient phoned in to follow up with her message below. Patient advised she had an appointment with her Pain Management provider today (11/16/21). In that visit, per the patient, the Pain Management provider stated they would like to have her medication, gabapentin, raised to 1200 mg. Patient stated she has been taking 300 mg 3 times a day of the gabapentin but now the Pain Management provider would like it to be moved to 1200 mg. Patient asked if the provider could approve that change or if the provider has any questions or concerns about that change. Patient also advised the [facility] provider placed a referral for the patient to see a Spinal Surgeon and that she should be receiving a call today to schedule that consult. Please advise, Elli South documented in this encounterFairfield Medical Center08-03-2022 History of Present illness Narrative* Dulce Wong APRN.CNP - 11/15/2021 6:38 PM EDT Images from the original note were not included. [employer] November 15, 2021 Hannah Hendricks 1990 Patient presents with: Back Pain There were no vitals filed for this visit. The patient was seen today for back pain. The patient states that she has severe pain with history of herniated disc. She has had a steroid injection recently. The patient went to the chiropractor earlier today and now she unable to move with out severe pain. She has weakness to the legs and numbness and severe pain. The patient was advised that her complaints and condition require a higher level of care and she was subsequently referred to ER. The patient verbalized understanding and denies questions. Dulce Wong APRN.CNP Telemedicine documented in this encounterFairfield Medical Center07-25-2022 Miscellaneous Notes* Telephone Encounter - Yana Ballard APRN.CNP - 11/06/2021 9:47 AM EDT The following approved medication requests have been transmitted electronically. Signed Prescriptions Disp Refills gabapentin (NEURONTIN) 300 mg capsule 30 capsule 2 Sig: Take 1 capsule by mouth daily at bedtime for 30 days. Authorizing Provider: YANA BALLARD Refused Prescriptions Disp Refills HYDROcodone-acetaminophen (NORCO) 5-325 mg per tablet 21 tablet 0 Sig: Take 1 tablet by mouth every 8 hours as needed for pain. JAELYN Class: C-II GENNARO: No Refused By: YANA BALLARD Reason for Refusal: A Refill not appropriate Yana Ballard APRN.RESERVATIONS CLERK * Telephone Encounter - Rozina Corona RN - 11/06/2021 8:40 AM EDT Patient calls for medication refill today. PCP is Yana Ballard CNP. Patient was last seen 2021. Last Blood work was October 08, 2019. Pending Prescriptions Disp Refills HYDROCODONE 5 MG-ACETAMINOPHEN 325 MG TABLET 21 tablet 0 Sig: Take 1 tablet by mouth every 8 hours as needed for pain. JAELYN Class: C-II GENNARO: No Glucose (mg/dL) Date Value 08/06/2019 89 Potassium (mmol/L) Date Value 08/06/2019 4.6 Sodium (mmol/L) Date Value 08/06/2019 139 Chloride (mmol/L) Date Value 08/06/2019 102 CO2 (mmol/L) Date Value 08/06/2019 24 Creatinine (mg/dL) Date Value 08/06/2019 0.82 BUN (mg/dL) Date Value 08/06/2019 11 Anion Gap (mmol/L) Date Value 08/06/2019 13 Calcium (mg/dL) Date Value 08/06/2019 9.7 No results found for: HBA1C No results found for: INR No results found for: CHOL, HDL, LDL, TG TSH Date Value Ref Range Status 10/08/2019 4.370 (H) 0.270 - 4.200 uU/mL Final Comment: If the patient is , TSH reference range varies by gestational period: First Trimester (weeks 9-12): 0.180-2.990 mcIU/mL Second Trimester: 0.110-3.980 mcIU/mL Third Trimester: 0.480-4.710 mcIU/mL Matteo Law et al. A Practical Approach for the Verifications and Determination of Site- and Trimester-Specific Reference Intervals for Thyroid Function tests in . Thyroid, 2019:29:3:412-420. Oni Triplett, et al. 2017 Guidelines of the [place] Thyroid Association for the Diagnosis and Management of Thyroid Disease during and the . Thyroid, 2017:27:3:315-389. Pharmacy has been captured: Yes. Patient prefers: [facility]. documented in this encounterFairfield Medical Center07-21-2022 Miscellaneous Notes* Telephone Encounter - Alma Bello APRN.CNP - 11/02/2021 1:28 PM EDT Entered in error documented in this encounterFairfield Medical Center06-29-2022 History of Present illness Narrative* Feng Wright MD - 10/11/2021 9:21 AM [facility]T [facility]: October 11, 2021 - 9:22 AM Hannah Hendricks is seen in consultation requested by Dr. Yana Ballard for an opinion regarding back pain. My final recommendations will be communicated back to the requesting physician by way of shared medical record or via US mail. Chief Complaint: back and leg pain SUBJECTIVE: Hannah Hendricks, is a 31 year old female who presents with lower back pain and right lower extremity pain. The pain started 10 weeks ago, with no known injury or trauma. She got up from sitting position and felt pain. The pain onset was sudden in nature. The patient states that the current pain is persistent. Her pain is located in the bilateral lumbar region and radiates to right lower extremity along lateral aspect to the level of toes . // The pain is described as numbness, sharp, soreness, shooting and tingling. The pain intensity is rated 6. The pain is exacerbated by sitting and arising from a sitting position and relieved by back brace, ibuprofen, and pillow support when sleeping. Symptoms interfere with physical activity, work, walking, sleeping, sitting, cooking, household cleaning, lifting and social activities. 60% pain in spine vs 40% (radiating) pain in the extremity. Litigation: No. Worker's Compensation: No. Prior pain treatment has included chiropractor with worsening of symptoms. Acupuncture with temporarily relief. Medications: Opioids, Gabapentin, robaxin, OTC NSAIDs with partal relief. ALLERGIES Allergen Reactions Penicillins Hives Shellfish Swelling, Shortness of Breath Current Medications: Pain medications reviewed and reconciled in the medication list: Yes. Current Outpatient Medications Medication Sig HYDROcodone-acetaminophen (NORCO) 5-325 mg per tablet Take 1 tablet by mouth every 8 hours as needed for pain. lidocaine (LIDODERM) 5 % Apply 1 Patch as directed every 24 hours. gabapentin (NEURONTIN) 100 mg capsule Take 1 capsule by mouth daily at bedtime for 30 days. predniSONE (DELTASONE) 50 mg Take 50 mg by mouth once daily. methocarbamol (ROBAXIN) 500 mg tablet Take 1 tablet by mouth three times daily as needed. levonorgestrel (MIRENA) 20 mcg/24 hours (7 yrs) 52 mg IUD 1 Each by INTRAUTERINE route one time only. Placed September 2020 No current facility-administered medications for this visit. PAST MEDICAL HISTORY Diagnosis Date NEGATIVE MEDICAL HISTORY PAST SURGICAL HISTORY Procedure Laterality Date NONE FAMILY HISTORY Problem Relation Age of Onset other (Other) Mother fibrocystic breast disease Colon Cancer Maternal Uncle Pancreatic Cancer Maternal Grandfather Social History: Alcohol Use: Yes (occassionally - wine or mixed drink) Tobacco Use: 0.8 packs/day, for 5 years. Quit 10/13/2013. Types: Cigarettes (sometimes does E-cig but not very often) Drug Use: No Employer And Job Title: None on file Years Of Education Completed: Not specified Marital Status: REVIEW OF SYSTEMS: Constitutional: (-) Fever (-) Night Sweats (-) Weight Gain (+) Weight Loss (-) Fatigue Cardiovascular: (-) Chest Pain (-) Palpitations (-) Lightheadedness (-) Swelling of Ankles (-) Hx Heart Surgery Respiratory: (-) Shortness of Breath (-) Cough (-) Wheezing (-) Snoring Gastrointestinal: (-) Incontinence (-) Abdominal Pain (-) Diarrhea (-) Constipation (-) Nausea/Vomiting (-) Heart Burn Endocrine: (-) Thyroid Disorder (-) Diabetes Hematologic: (-) Prolonged Bleeding (-) Easy Bruising Genitourinary: (-) Incontinence (-) Frequency (-) Urinary Urgency Skin: (-) Rashes (-) Itching (-) Other Lesions Neurologic: (-) Headache (-) Double Vision (-) Confusion (-) Paralysis (-) Vertigo (-) Syncope Psychiatric: (-) Depression (-) Anxiety (-) Delusions (-) Hallucinations (-) Suicidal Thoughts OARRS Report reviewed: Yes Narcotic Agreement reviewed and signed?: N/A Baseline Urine Toxicology obtained: N/A Urine Panel: No results found for: UQCANN, UQBNZL, FIE8VQI, UQAMPH, UQMAMP, UQBUPRE, UQNORBUP, UQMTHD, UQEDDP, UQTRAM, UQDTRM, UQFNTL, UQNFTL, UQCODE, UQMORP, UQDCDN, UQHCOD, UQOXYC, UQHMOR, UQOXYM, UQCREA, UQPH,UQSPGR, UQOXID, UQSPQ The pain panel was N/A OBJECTIVE: Performed in conjunction with observation. The patient was alert and oriented x3. The patient was in no acute distress. Lungs: Clear, negative for dyspnea or distress. CVR: Negative for SOB or peripheral edema. Neck: Supple. The range of motion was intact. Back: Range of motion of the trunk was generally intact. Bilateral lumbosacral tenderness worse on the right side.. SLR: Positive in the right at less than 70 degrees elevation. Facet Loading: Equivocal with axial loading and extension. SI joint: Positive bilateral PSIS tenderness. Negative sacral thrust. Extremities: no reported edema or erythema. Motor: Negative focal deficits Sensory: Intact to light touch and sharp throughout the lower extremities. Gait: Slow to stand with slight antalgic gait as she favors left side. Medical record and diagnostic tests reviewed for today's visit: The [facility] EMR was reviewed during thevisit IMAGING STUDIES: No new imaging studies were reviewed during this office visit. ASSESSMENT: (M54.16) Radiculopathy, lumbar region (primary encounter diagnosis) (M51.26) Lumbar disc herniation Discussion: A discussion was entertained regarding multicomponent back pain source. Discussed conservative options and focus on improvement of function and the concerns of ongoing chronic pain. Discussed the rationale behind interventional approach and how it can facilitate improvement of pain but also diagnostic information that procedures provide. [facility] use of any opioid pain medication is discouraged in chronic benign pain. PLAN: 1. MR lumbar spine was reviewed with the patient. She has a right paracentral disc herniation at L4-5 level. She also has a central disc displacement L5-S1 level. The findings worse at L4-5 level where it is encroaching on right L5 nerve. The patient gone through conservative treatments including physical therapy and acupuncture without improvement. Discussed injection options as a diagnostic/therapeutic approach. 2. Pain interventional procedure recommended: Right L4-5 versus L5-S1 lumbar transforaminal injection 3. No new medication was prescribed. 4. Counseled patient regarding the importance of activity modification and exercise. 5. Follow up: 3 months. The above plan and management options were discussed with patient. The patient is in agreement withthe above and verbalized understanding. I have discussed and confirmed the above treatment plan with the patient and I have reviewed the nurses notes and I am aware of the family/social history. I have confirmed ROS findings. Feng Wright MD October 11, 2021 cc: Yana Ballard [id number] [facility] [id number] [place] [id number] Results of consultation to be transmitted via electronic medical record for those providers who practice within [facility] or with access to [employer] via MD Connect, or via letter. documented in this encounterFairfield Medical Center06-28-2022 Miscellaneous Notes* Telephone Encounter - [facility] - 10/10/2021 10:50 AM EDT Patient was scheduled for 10/11/21 with pain management. No further action needed. [facility] * Telephone Encounter - Yana Ballard APRN.[facility] - 10/10/2021 6:53 AM EDT Please assist patient with scheduling in pain management. Dr. Santiago is preferred if appt available upcoming. Thank you. documented in this encounterFairfield Medical Center06-25-2022 Miscellaneous Notes* Telephone Encounter - Yana Ballard APRN.CNP - 10/07/2021 8:38 AM EDT The following approved medication requests have been transmitted electronically. Signed Prescriptions Disp Refills HYDROcodone-acetaminophen (NORCO) 5-325 mg per tablet 21 tablet 0 Sig: Take 1 tablet by mouth every 8 hours as needed for pain. JAELYN Class: C-II GENNARO: No Authorizing Provider: YANA BALLARD lidocaine (LIDODERM) 5 % 10 Patch 0 Sig: Apply 1 Patch as directed every 24 hours. GENNARO: No Authorizing Provider: YANA BALLARD gabapentin (NEURONTIN) 100 mg capsule 30 capsule 1 Sig: Take 1 capsule by mouth daily at bedtime for 30 days. Authorizing Provider: YANA BALLARD APRN.CNP * Telephone Encounter - Krystin Crys Reddy - 10/06/2021 11:38 AM EDT Mychart message for a medication refill today. PCP is Yana Ballard CNP. Patient was last seen September 19, 2021. Last Blood work was August 06, 2019. Pending Prescriptions Disp Refills HYDROCODONE 5 MG-ACETAMINOPHEN 325 MG TABLET 21 tablet 0 Sig: Take 1 tablet by mouth every 8 hours as needed for pain. JAELYN Class: C-II GENNARO: No LIDOCAINE 5 % TOPICAL PATCH 10 Patch 0 Sig: Apply 1 Patch as directed every 24 hours. GENNARO: No Glucose (mg/dL) Date Value 08/06/2019 89 Potassium (mmol/L) Date Value 08/06/2019 4.6 Sodium (mmol/L) Date Value 08/06/2019 139 Chloride (mmol/L) Date Value 08/06/2019 102 CO2 (mmol/L) Date Value 08/06/2019 24 Creatinine (mg/dL) Date Value 08/06/2019 0.82 BUN (mg/dL) Date Value 08/06/2019 11 Anion Gap (mmol/L) Date Value 08/06/2019 13 Calcium (mg/dL) Date Value 08/06/2019 9.7 No results found for: HBA1C No results found for: INR No results found for: CHOL, HDL, LDL, TG TSH Date Value Ref Range Status 10/08/2019 4.370 (H) 0.270 - 4.200 uU/mL Final Comment: If the patient is , TSH reference range varies by gestational period: First Trimester (weeks 9-12): 0.180-2.990 mcIU/mL Second Trimester: 0.110-3.980 mcIU/mL Third Trimester: 0.480-4.710 mcIU/mL Matteo Law et al. A Practical Approach for the Verifications and Determination of Site- and Trimester-Specific Reference Intervals for Thyroid Function tests in . Thyroid, 2019:29:3:412-420. Oni Triplett, et al. 2017 Guidelines of the [place] Thyroid Association for the Diagnosis and Management of Thyroid Disease during and the . Thyroid, 2017:27:3:315-389. Pharmacy has been captured: Yes. Patient prefers: [facility]. Krystin Spangler Ma documented in this encounterFairfield Medical Center06-25-2022 Miscellaneous Notes* Telephone Encounter - Yana Ballard APRN.CNP - 10/07/2021 8:30 AM EDT See [facility] message. * Telephone Encounter - Adriana Juárez Ma - 10/06/2021 3:04 PM EDT Patient given message below. Patient states she is still in a lot of pain. Still having the leg pain, and now the last couple days having a lot of tingling in foot. Nothing has really changed since last visit. Patient states she saw disc bulging would like clarification on this. Adriana Juárez Ma * Telephone Encounter - Yana Ballard APRN.CNP - 10/06/2021 1:54 PM EDT Please inform patient MRI confirms disc herniation at L4-L5 and L5- S1 as cause for her pain, as wesuspected. Next step is to consult pain management to help with pain control. I placed this order. How is she feeling currently? documented in this encounterFairfield Medical Center06-23-2022 History of Present illness Narrative* RT Nova(R) - 10/05/2021 6:40 PM EDT Radiology Service Progress Note PATIENT NAME: Hannah Hendricks DATE OF SERVICE: October 05, 2021 TIME: 6:27 PM PATIENT IDENTITY VERIFICATION COMPLETED USING TWO (2) IDENTIFIERS: Name and Date of confirmedby patient verbally and Name and Date of confirmed by identification band. FALL SCREENING: Has the patient had 2 falls in the last year or 1 fall with injury or currently using an Ambulatory Assistive Device (Walker, Cane, Wheelchair, Crutches, etc.)? No PATIENT GENDER DATA: Female. status: : No status: NO. PATIENT RELEVANT IMPLANT DATA REVIEWED: Yes RADIOLOGY DEPARTMENT: MR; Exam(s) Completed: Spine: Lumbar spine PERIPHERAL IV DATA: Not applicable SIGNED BY: RT Nova(R) October 05, 2021 6:27 PM documented in this encounterFairfield Medical Center06-07-2022 History of Present illness Narrative* Yana Ballard APRN.CNP - 09/19/2021 10:40 AM EDT HPI: Hannah Hendricks presents with the complaint of Low Back Pain starting 6 weeks ago. The pain is located in lower back and sacroiliac region described as aching and burning, and rated as severe, with radiation, to the right thigh, below the right knee Started after pulling weeds at home Symptoms include numbness, tingling, leg pain Denies saddle anesthesia, bowel and bladder incontinence. Bowel and bladder frequency without changes. Treated with chiropractor x 5 weeks, tried ice/heat. Seen in ED last week (Willi Sarkar) - treated with prednisone (finished yesterday), vicodin, muscle relaxer, lidocaine patches.Taking motrin daily. Better after medication. Using vicodin rarely - mostly at night. Is in a family wedding in 10 daysand needs to be able to function for wedding without severe pain. PAST MEDICAL HISTORY Diagnosis Date NEGATIVE MEDICAL HISTORY Current Outpatient Medications Medication Sig predniSONE (DELTASONE) 50 mg Take 50 mg by mouth once daily. methocarbamol (ROBAXIN) 500 mg tablet Take 1 tablet by mouth three times daily as needed. HYDROcodone-acetaminophen (NORCO) 5-325 mg per tablet Take 1 tablet by mouth every 8 hours as needed for pain. lidocaine (LIDODERM) 5 % Apply 1 Patch as directed every 24 hours. levonorgestrel (MIRENA) 20 mcg/24 hours (7 yrs) 52 mg IUD 1 Each by INTRAUTERINE route one time only. Placed September 2020 No current facility-administered medications for this visit. Social History Tobacco Use Smoking status: Former Smoker Packs/day: 0.80 Years: 5.00 Pack years: 4.00 Types: Cigarettes Quit date: 10/13/2013 Years since quittin.9 Smokeless tobacco: Never Used Tobacco comment: sometimes does E-cig but not very often Substance Use Topics Alcohol use: Yes Comment: occassionally - wine or mixed drink Drug use: No REVIEW OF BACK: Negative for: fever, dysuria and sedentary life style REVIEW OF SYSTEMS GENERAL: No weight loss, malaise or fevers NECK: Negative for lumps, goiter, pain and significant neck swelling RESPIRATORY: Negative for cough, hemoptysis, wheezing, COPD, dyspnea or shortness of breath CARDIOVASCULAR: Negative for chest pain, leg swelling, hypertension, CHF or palpitations GI: No nausea, vomiting, or diarrhea and no bowel or bladder changes MUSCULOSKELETAL: back pain NEURO: No history of headaches, syncope, paralysis, seizures or tremors PHYSICAL Musculoskelatal tenderness of right paraspinal muscles to palpation without edema. ROM: with limited flexion Strength 5/5 in bilateral lower extremities Spasm: none Gait: guarded and stiff Neuro: Straight leg raise positive right side Reflexes: left patellar 2+ and right patellar 2+ Sensation in lower extremities intact Abdominal Exam: Normal abdominal exam, Abdomen soft, non-tender. Bowel sounds normal. No masses, organomegaly ASSESSMENT/PLAN: 1. Spinal stenosis of lumbar region without neurogenic claudication - ICD9: 724.02, ICD10: M48.061 Continue Ibuprofen with food, Robaxin 500 mg as needed, Vicodin for break through pain only Lidoderm patches as needed MRI lumbar spine - HYDROCODONE 5 MG-ACETAMINOPHEN 325 MG TABLET - MRI LUMBAR SPINE WO PILLO I spent a total of 20 minutes on the date of the service which included preparing to see the patient, [id number] patient care, completing clinical documentation, obtaining and/or reviewing separately obtained history, performing a medically appropriate examination, counseling and educating the pat ient/family/caregiver and ordering medications, tests, or procedures. Yana Ballard APRN.MANDEEP [facility] Discharge instructions Patient Education 09/13/2021 23:57:30 Back Exercises, [id number] Back Exercises These exercises help to make your trunk and back strong. They also help to keep the lower back flexible. Doing these exercises can help to prevent back pain or lessen existing pain. If you have back pain, try to do these exercises 2 3 times each day or as told by your doctor. As you get better, do the exercises once each day. Repeat the exercises more often as told by your doctor. To stop back pain from coming back, do the exercises once each day, or as told by your doctor. Exercises Single knee to chest Do these steps 3 5 times in a row for each le.Lie on your back on a firm bed or the floor with your legs stretched out. 2.Bring one knee to your chest. 3.Grab your knee or thigh with both hands and hold them it in place. 4.Pull on your knee until you feel a gentle stretch in your lower back or buttocks. 5.Keep doing the stretch for 10 30 seconds. 6.Slowly let go of your leg and straighten it. Pelvic tilt Do these steps 5 10 times in a row: 1.Lie on your back on a firm bed or the floor with your legs stretched out. 2.Bend your knees so they point up to the ceiling. Your feet should be flat on the floor. 3.Tighten your lower belly (abdomen) muscles to press your lower back against the floor. This will make your tailbone point up to the ceiling instead of pointing down to your feet or the floor. 4.Stay in this position for 5 10 seconds while you gently tighten your muscles and breathe evenly. Cat cow Do these steps until your lower back bends more easily: 1.Get on your hands and knees on a firm surface. Keep your hands under your shoulders, and keep your knees under your hips. You may put padding under your knees. 2.Let your head hang down toward your chest. Tighten (contract) the muscles in your belly. Point your tailbone toward the floor so your lower back becomes rounded like the back of a cat. 3.Stay in this position for 5 seconds. 4.Slowly lift your head. Let the muscles of your belly relax. Point your tailbone up toward the ceiling so your back forms a sagging arch like the back of a cow. 5.Stay in this position for 5 seconds. Press-ups Do these steps 5 10 times in a row: 1.Lie on your belly (face-down) on the floor. 2.Place your hands near your head, about shoulder-width apart. 3.While you keep your back relaxed and keep your hips on the floor, slowly straighten your arms to raise the top half of your body and lift your shoulders. Do not use your back muscles. You may change where you place your hands in order to make yourself more comfortable. 4.Stay in this position for 5 seconds. 5.Slowly return to lying flat on the floor. Bridges Do these steps 10 times in a row: 1.Lie on your back on a firm surface. 2.Bend your knees so they point up to the ceiling. Your feet should be flat on the floor. Your armsshould be flat at your sides, next to your body. 3.Tighten your butt muscles and lift your butt off the floor until your waist is almost as high as your knees. If you do not feel the muscles working in your butt and the back of your thighs, slide your feet 1 2 inches farther away from your butt. 4.Stay in this position for 3 5 seconds. 5.Slowly lower your butt to the floor, and let your butt muscles relax. If this exercise is too easy, try doing it with your arms crossed over your chest. Belly crunches Do these steps 5 10 times in a row: 1.Lie on your back on a firm bed or the floor with your legs stretched out. 2.Bend your knees so they point up to the ceiling. Your feet should be flat on the floor. 3.Cross your arms over your chest. 4.Tip your chin a little bit toward your chest but do not bend your neck. 5.Tighten your belly muscles and slowly raise your chest just enough to lift your shoulder blades atiny bit off of the floor. Avoid raising your body higher than that, because it can put too much stress on your low back. 6.Slowly lower your chest and your head to the floor. Back lifts Do these steps 5 10 times in a row: 1.Lie on your belly (face-down) with your arms at your sides, and rest your forehead on the floor. 2.Tighten the muscles in your legs and your butt. 3.Slowly lift your chest off of the floor while you keep your hips on the floor. Keep the back of your head in line with the curve in your back. Look at the floor while you do this. 4.Stay in this position for 3 5 seconds. 5.Slowly lower your chest and your face to the floor. Contact a doctor if: Your back pain gets a lot worse when you do an exercise. Your back pain does not get better 2 hours after you exercise. If you have any of these problems, stop doing the exercises. Do not do them again unless your doctor says it is okay. Get help right away if: You have sudden, very bad back pain. If this happens, stop doing the exercises. Do not do them again unless your doctor says it is okay. This information is not intended to replace advice given to you by your health care provider. Make sure you discuss any questions you have with your health care provider. Document Released: 05/04/2011 Document Revised: 12/25/2018 Document Reviewed: 12/25/2018 [employer] Patient Education 2020 [employer] Follow Up Care 09/13/2021 20:31:41 With:Santana Vidal Address: [address] [place], [place] [address]io[place] [address] Business (1) When:09/16/2021 Comments:Take the prednisone daily until you have completed the course you can use the Robaxin, [place] as prescribed as needed for pain. Use lidocaine patch daily. Please follow-up with your primary care doctor and orthopedic for further evaluation management. With:Severiano Wallace Address: [address] [place], [place] [address] [address]- Business (1) When:Within 3 Day(s) [facility] note No data available for this section [facility] note* Diagnosis Spinal stenosis of lumbar region without neurogenic claudication Spinal stenosis, lumbar region, without neurogenic claudication documented in this encounter [facility] note* Diagnosis Spinal stenosis of lumbar region without neurogenic claudication Spinal stenosis, lumbar region, without neurogenic claudication documented in this encounter [facility] note* Diagnosis Lumbar disc herniation- Primary Displacement of lumbar intervertebral disc without myelopathy [facility] Diagnosis Spinal stenosis of lumbar region without neurogenic claudication Spinal stenosis, lumbar region, without neurogenic claudication documented in this encounter [facility] note* Diagnosis Radiculopathy, lumbar region- Primary Thoracic or lumbosacral neuritis or radiculitis, unspecified Lumbar disc herniation Displacement of lumbar intervertebral disc without myelopathy [facility]* Diagnosis Lumbar disc herniation- Primary Displacement of lumbar intervertebral disc without myelopathy Radiculopathy, lumbar region Thoracic or lumbosacral neuritis or radiculitis, unspecified [facility] Diagnosis Spinal stenosis of lumbar region without neurogenic claudication Spinal stenosis, lumbar region, without neurogenic claudication [facility]* Diagnosis Treatment not available- Primary Procedure not carried out for other reasons documented in this encounter [facility] note* Diagnosis Hypokalemia- Primary Hypopotassemia Hypomagnesemia Disorders of magnesium metabolism [facility]* Diagnosis Lumbar disc herniation- Primary Displacement of lumbar intervertebral disc without myelopathy Radiculopathy, lumbar region Thoracic or lumbosacral neuritis or radiculitis, unspecified [facility]* Diagnosis Lumbar disc herniation- Primary Displacement of lumbar intervertebral disc without myelopathy Radiculopathy, lumbar region Thoracic or lumbosacral neuritis or radiculitis, unspecified Hypokalemia Hypopotassemia Hypomagnesemia Disorders of magnesium metabolism [facility]* Diagnosis Lumbar disc herniation- Primary Displacement of lumbar intervertebral disc without myelopathy Radiculopathy, lumbar region Thoracic or lumbosacral neuritis or radiculitis, unspecified [facility]* Diagnosis Hypokalemia- Primary Hypopotassemia Hypomagnesemia Disorders of magnesium metabolism [facility]* Diagnosis Pre-op testing- Primary Preoperative examination, unspecified Lumbar disc herniation Displacement of lumbar intervertebral disc without myelopathy Radiculopathy, lumbar region Thoracic or lumbosacral neuritis or radiculitis, unspecified Lumbar disc herniation Displacement of lumbar intervertebral disc without myelopathy Radiculopathy, lumbar region Thoracic or lumbosacral neuritis or radiculitis, unspecified [facility]* Diagnosis Pre-op evaluation- Primary Preoperative examination, unspecified Lumbar disc herniation Displacement of lumbar intervertebral disc without myelopathy Known health problems: none Lumbar disc herniation Displacement of lumbar intervertebral disc without myelopathy Radiculopathy, lumbar region Thoracic or lumbosacral neuritis or radiculitis, unspecified [facility]* Diagnosis Radiculopathy, lumbar region- Primary Thoracic or lumbosacral neuritis or radiculitis, unspecified Lumbar disc herniation Displacement of lumbar intervertebral disc without myelopathy Radiculopathy, lumbar region Thoracic or lumbosacral neuritis or radiculitis, unspecified [facility]* Diagnosis Lumbar herniated disc- Primary Displacement of lumbar intervertebral disc without myelopathy [facility] Diagnosis Lumbar radiculopathy- Primary Thoracic or lumbosacral neuritis or radiculitis, unspecified [facility]* Diagnosis Spinal stenosis of lumbar region with neurogenic claudication- Primary Spinal stenosis, lumbar region, with neurogenic claudication [facility]* Diagnosis Pre-op testing- Primary Preoperative examination, unspecified Spinal stenosis of lumbar region with neurogenic claudication Spinal stenosis, lumbar region, with neurogenic claudication Spinal stenosis of lumbar region with neurogenic claudication Spinal stenosis, lumbar region, with neurogenic claudication [facility]* Diagnosis Spinal stenosis of lumbar region with neurogenic claudication Spinal stenosis, lumbar region, with neurogenic claudication Spinal stenosis of lumbar region with neurogenic claudication Spinal stenosis, lumbar region, with neurogenic claudication [facility]* Diagnosis Pre-op evaluation- Primary Preoperative examination, unspecified Pre-op testing Preoperative examination, unspecified Electronic cigarette use Spinal stenosis of lumbar region with neurogenic claudication Spinal stenosis, lumbar region, with neurogenic claudication [facility]* Diagnosis Radiculopathy, lumbar region- Primary Thoracic or lumbosacral neuritis or radiculitis, unspecified documented in this encounter [facility] note* Diagnosis Radiculopathy, lumbar region Thoracic or lumbosacral neuritis or radiculitis, unspecified Chronic bilateral low back pain with right-sided sciatica documented in this encounter [facility] note* Diagnosis Radiculopathy, lumbar region- Primary Thoracic or lumbosacral neuritis or radiculitis, unspecified [facility]* Diagnosis Chronic bilateral low back pain with right-sided sciatica- Primary [facility]* Diagnosis Chronic bilateral low back pain with right-sided sciatica- Primary [facility]* Diagnosis Chronic bilateral low back pain with right-sided sciatica- Primary [facility]* Diagnosis Chronic bilateral low back pain with right-sided sciatica- Primary [facility]* Diagnosis Chronic bilateral low back pain with right-sided sciatica- Primary [facility] noteNo assessment information availableWMercy [facility] Work Phone: Evaluation note* Diagnosis Radiculopathy, lumbar region- Primary Thoracic or lumbosacral neuritis or radiculitis, unspecified [facility]* Diagnosis Chronic bilateral low back pain with right-sided sciatica- Primary documented in this encounter [facility] note* Diagnosis Chronic bilateral low back pain with right-sided sciatica- Primary [facility] Diagnosis Radiculopathy, lumbar region- Primary Thoracic or lumbosacral neuritis or radiculitis, unspecified Spinal stenosis of lumbar region with neurogenic claudication Spinal stenosis, lumbar region, with neurogenic claudication [facility]* Diagnosis Spinal stenosis of lumbar region with neurogenic claudication Spinal stenosis, lumbar region, with neurogenic claudication [facility]* Diagnosis Diarrhea, unspecified type- Primary [facility] this [facility] Author Ximena Mcghee [facility] Note Date/Time September 14, 2024 9:34a m [facility] [address], [address] [place] [address] OFFICE VISIT Date of Service: 09/14/24 MR#: [id number] Acct: [id number] Name: HANNAH HENDRICKS Rep #: [id number] : 1990 Provider: BART Mcghee Age/Sex: 34/F Location: [facility] [place] Status: Signed Intake Vital Signs 07/20/24 13:59 08/17/24 08:32 09/14/24 08:59 Height 5 ft 6 in 5 ft 6 in 5 ft 6 in Weight: 190 lb 2 oz BMI 30.7 BP 106/71 Intake Visit Reasons: 17wk ob Chief Complaint: 17wk OB Balloon Sander Required: No Is patient in pain?: No Allergies amoxicillin Allergy (Intermediate, Verified 08/17/24 08:37) Rash vancomycin Allergy (Intermediate, Verified 08/17/24 08:37) Rash Penicillins Allergy (Mild, Verified 08/17/24 08:37) hives, breathing issues shellfish derived Allergy (Mild, Verified 08/17/24 08:37) hives Medications ?Medication ?Instructions ?Recorded ?Confirmed ?Type docosahexaenoic acid 200 mg 200 mg PO DAILY 04/01/24 0 09/14/24 History capsule ( DHA) ondansetron HCl 4 mg tablet 4 mg PO Q6H #30 tabs 07/2009/14/24 Rx Last Menstrual Period: 05/23/24 : No PFSH PFSH Medical History Spontaneous Herniated disc Endometritis following delivery Surgical History Previous back surgery Family History Uncle Colon cancer Liver cancer Grandfather Liver cancer Pancreatic cancer Uncle Diverticulitis Grandmother Heart disease Uncle Heart disease Social History adopted: No household members: spouse and children housing: house number of children: 1 current occupational status: employed current occupation: [employer] current occupational exposures/hazards: No pets and animals: Yes (Not managing litterbox) pets and animals: cat(s), dog(s)and other details: rabbit history of recent travel: No sexually active: Yes Smoking Status: Former smoker quit date: 06/16/24 how long ago did patient quit smokin06/16/24 second hand exposure: No quit status: quit date established alcohol intake: current alcohol intake frequency: a few times a month details: Not while substance use type: does not use well-balanced diet: daily or most days caffeine: Yes Type: coffee and tea eating out: 1-3 times/week during the past year weight has: remained stable what type of physical activity do you participate in: walking frequency: 3-4 times per week duration: 15-30 minutes/day agata/presybeterian: Nondenominational seatbelt use: always do you feel safe at home: Yes 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 Date Name GA/Weeks Outcome Route Bth Weight Infant Gen Labor Lgth Anesthesia Del Locatn Provider FOB 08/11/20 Janie 39 live - full term 7lbs 8.5oz Female epidural [facility] Dr. Quang Samaniego 03/15/24 4 spontaneous Delivery Date: 08/11/20 Last Updated by: Cherelle Reeder Induced HPI 17wk ob Details: HANNAH HENDRICKS is a 34 year old who presents for routine OB visit. OB Visit BALAJI Calculator Estimated Delivery Date Method Current WG Current Estimate 02/24/25 Ultrasound #1 16w 5d Other Estimates 02/27/25 LMP (Certain) 16w 2d Expected Delivery Route/Plan Labor Preferences- CB/BF classes: [] labor support person: [] labor intervention preferences: [] pain management options preferred: [] cut cord/dad catch: [] : [] PP control planned: [] discussed possible routes of delivery and associated risks: [] special requests: [] Specific Issue/Plans Covid status: [] Flu vaccine: [] Tdap vaccine: [] Rhogam: [] LARC form signed: [] Problem list reviewed and updated with the most current plan of care details and appropriate orders placed. Relevant counseling for the gestational age provided. Continue routine care and follow up unless otherwise noted in visit notes/problem list details Initial Weight: Not Recorded Date -?-?-?-?-?-?-?-?-?-?-?-?- EGA Weight BP Urine Prot -?-?-?-?-?-?-?-?-?-?-?-?- Glucose FHR FuHt Pres Dilation -?-?-?-?-?-?-?-?-?-?-?-?- Effaced St Visit Note 07/20/24 -?-?-?-?-?-?-?-?-?-?-?-?- 8w 5d 182 lb 6 oz 117/79 -?-?-?-?-?-?-?-?-?-?-?-?- 170 -?-?-?-?-?-?-?-?-?-?-?-?- JV- CRL consiste nt with LMP and prior ultrasound. desires NIPT and carrier screen. 08/05/24 -?-?-?-?-?-?-?-?-?-?-?-?- 11w 0d 183 lb 126/78 Negative -?-?-?-?-?-?-?-?-?-?-?--?- Negative 173 -?-?-?-?-?-?-?-?-?-?-?-?- -work in. Fel l on knees last night/increased cramping. No bleeding. Hx of SAB. Live IUP on br US. 08/17/24 -?-?-?-?-?-?-?-?-?-?-?-?- 12w 5d 184 lb 8 oz 104/68 Trac e -?-?-?-?-?-?-?-?-?-?-?-?- Negative 157 -?-?-?-?-?-?-?-?-?-?-?-?- MH-No VB. Nausea improving. Br US confirm FHT 09/14/24 -?-?-?-?-?-?-?-?-?-?-?-?- 16w 5d 190 lb 2 oz 106/71 -?-?-?-?-?-?-?-?-?-?-?-?- 156 -?-?-?-?-?-?-?-?-?-?-?-?- KW- No vb/crampi ng. having migraines from lack of caffeine-discussed usage. Anatomy US ordered. AFP declined. ACOG First Trimester First Trimester: Desire for , Alcohol, Tobacco Cessation, Illicit/Recreational Drug/Substance Use, Unstable Housing, Communication Barriers, Environmental/Work Hazards, Anticipated Course of Care, Toxoplasmosis Precations, Use of Any medications, Sexual activity, Exercise, Dental Care, Sauna/Hot tub use, Seat Belt use, Childbirth classes/Hospital facilities, Travel and Screening for Aneuploidy; Discussed Second Trimester Second Trimester: Signs and Symptoms of Labor, Selecting a care provider, Reproductive Life Planning & Contreception, Care Planning, Depression/Anxiety and Intimate Partner Violence; Discussed Tobacco Cessation ROS Const Reports system reviewed and no additional complaints, except as documented Eyes Reports system reviewed and no additional complaints, except as documented ENT Reports system reviewed and no additional complaints, except as documented Card Reports system reviewed and no additional complaints, except as documented Resp Reports system reviewed and no additional complaints, except as documented GI Reports system reviewed and no additional complaints, except as documented, Denies nausea and Denies vomiting Reports system reviewed and no additional complaints, except as documented Musc Reports system reviewed and no additional complaints, except as documented Skin/Breast Reports system reviewed and no additional complaints, except as documented Neuro Yes system reviewed and no additional complaints, except as documented Psych Reports system reviewed and no additional complaints, except as documented Endo Reports system reviewed and no additional complaints, except as documented Kwabena/Lymph Reports system reviewed and no additional complaints, except as documented Aller/Immun Reports system reviewed and no additional complaints, except as documented Exam Const General: cooperative, healthy appearing and no acute distress Orientation: alert, awake and oriented x3 Neck Neck: normal visual inspection and full ROM Resp Effort & Inspection: normal respiratory effort, able to speak in complete sentences and symmetric chest movement GI Inspection: normal to inspection Palpation: soft and other Other: gravid Skin General: no rashes or lesions noted Neuro General: patient alert, patient awake and patient oriented x3 Cognition: normal cognition Speech: speech normal Gait: normal gait Motor: muscle tone normal throughout Extrem General: normal to inspection and full ROM Psych Appearance: grossly normal Mental Status: mental status grossly normal Mood: congruent mood Affect: normal affect Speech and Movement: speech and movement normal Attitude: cooperative Thought Process: normal Thought Content: normal Judgment: judgment good Coding Level of Care Code OB Routine Diagnoses History of miscarriage, currently O09.299 Supervision of high risk in second trimester O09.92 Trimester: second trimester 16 weeks gestation of Z3A.16 Weeks of gestation: 16 weeks Former smoker Z87.891 Assessment and Plan Assessment and Plan (1) History of miscarriage, currently : Status: Acute Comment: x1, March 2024 (2) Supervision of high-risk : Status: Acute Qualifiers: Trimester: second trimester Qualified Code(s): O09.92 - Supervision of high risk , unspecified, second trimester Comment: PRR,; BALAJI 02/24/25; PC: Janie; : Aden (3) : Status: Acute Qualifiers: Weeks of gestation: 16 weeks Qualified Code(s): Z3A.16 - 16 weeks gestation of Comment: Discussed genetic/carrier testing - Desires both, NIPT low risk, gender not selected (4) Former smoker: Status: Acute Comment: Stopped 06/16/24 Orders: Orders POC Urinalysis 2 Dip (Clinic) Today Plan Details Additional Comments: ACOG trimester education reviewed and updated. see problem list details for updated plan management information and see below for orders placed at this visit. GA appropriate handout given. 09/14/24 0934 <Electronically signed by Ximena benitez CNM> Date _ Ximena Mcghee CNM Cosigner Signature: Date (if applicable) CC: ~ [facility] Work Phone: Progress note Author Ximena Mcghee [facility] Note Date/Time November 09, 2024 9:25 am [facility] [address] [place] [address], [address] [place] [address] OFFICE VISIT Date of Service: 11/09/24 MR#: [id number] Acct: [id number] Name: HANNAH HENDRICKS Rep #: [id number] : 1990 Provider: BART Mcghee Age/Sex: 34/F Location: [facility] Status: Signed Intake Vital Signs 08/17/24 08:32 10/12/24 15:54 11/09/24 08:55 11/09/24 08:55 Height 5 ft 6 in 5 ft 6 in 5 ft 6 in 5 ft 6 in Weight: 202 lb 6 oz BMI 32.6 BP 104/71 Intake Visit Reasons: 25 wk ob Chief Complaint: 25wk OB Balloon Sander Required: No Is patient in pain?: No Allergies amoxicillin Allergy (Intermediate, Verified 11/09/24 08:53) Rash vancomycin Allergy (Intermediate, Verified 11/09/24 08:53) Rash Penicillins Allergy (Mild, Verified 11/09/24 08:53) hives, breathing issues shellfish derived Allergy (Mild, Verified 11/09/24 08:53) hives Medications ?Medication ?Instructions ?Recorded ?Confirmed ?Type docosahexaenoic acid 200 mg 200 mg PO DAILY 04/01/24 0 11/09/24 History capsule ( DHA) ondansetron HCl 4 mg tablet 4 mg PO Q6H #30 tabs 07/2011/09/24 Rx Last Menstrual Period: 05/23/24 : No PFSH PFSH Medical History Spontaneous Herniated disc Endometritis following delivery Surgical History Previous back surgery Family History Uncle Colon cancer Liver cancer Grandfather Liver cancer Pancreatic cancer Uncle Diverticulitis Grandmother Heart disease Uncle Heart disease Social History adopted: No household members: spouse and children housing: house number of children: 1 current occupational status: employed current occupation: [employer] current occupational exposures/hazards: No pets and animals: Yes (Not managing litterbox) pets and animals: cat(s), dog(s)and other details: rabbit history of recent travel: No sexually active: Yes Smoking Status: Former smoker quit date: 06/16/24 how long ago did patient quit smokin06/16/24 second hand exposure: No quit status: quit date established alcohol intake: current alcohol intake frequency: a few times a month details: Not while substance use type: does not use well-balanced diet: daily or most days caffeine: Yes Type: coffee and tea eating out: 1-3 times/week during the past year weight has: remained stable what type of physical activity do you participate in: walking frequency: 3-4 times per week duration: 15-30 minutes/day agata/presybeterian: Nondenominational seatbelt use: always do you feel safe at home: Yes 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 Date Name GA/Weeks Outcome Route Bth Weight Gen Labor Lgth Anes t hesia Del Locatn Provider FOB 08/11/20 Janie 39 live - full term 7lbs 8.5oz Female epidural [facility] Dr. Quang Samaniego 03/15/24 4 spontaneous Delivery Date: 08/11/20 Last Updated by: Cherelle Reeder Induced HPI 25 wk ob Details: HANNAH HENDRICKS is a 34 year old who presents for routine OB visit. OB Visit BALAJI Calculator Estimated Delivery Date Method Current WG Current Estimate 02/24/25 Ultrasound #1 24w 5d Other Estimates 02/27/25 LMP (Certain) 24w 2d Expected Delivery Route/Plan Labor Preferences- CB/BF classes: [] labor support person: [] labor intervention preferences: [] pain management options preferred: [] cut cord/dad catch: [] : [] PP control planned: [] discussed possible routes of delivery and associated risks: [] special requests: [] Specific Issue/Plans Covid status: [] Flu vaccine: [] Tdap vaccine: [] Rhogam: [] LARC form signed: [] Problem list reviewed and updated with the most current plan of care details and appropriate orders placed. Relevant counseling for the gestational age provided. Continue routine care and follow up unless otherwise noted in visit notes/problem list details Initial Weight: Not Recorded Date -?-?-?-?-?-?-?-?-?-?-?-?- EGA Weight BP Urine Prot -?-?-?-?-?-?-?-?-?-?-?-?- Glucose FHR FuHt Pres Dilation -?-?-?-?-?-?-?-?-?-?-?-?- Effaced St Visit Note 07/20/24 -?-?-?-?-?-?-?-?-?-?-?-?- 8w 5d 182 lb 6 oz 117/79 -?-?-?-?-?-?-?-?-?-?-?-?- 170 -?-?-?-?-?-?-?-?-?-?-?-?- JV- CRL consiste nt with LMP and prior ultrasound. desires NIPT and carrier screen. 08/05/24 -?-?-?-?-?-?-?-?-?-?-?-?- 11w 0d 183 lb 126/78 Negative -?-?-?-?-?-?-?-?-?-?-?-?- Negative 173 -?-?-?-?-?-?-?-?-?-?-?-?- -work in. Fel l on knees last night/increased cramping. No bleeding. Hx of SAB. Live IUP on br US. 08/17/24 -?-?-?-?-?-?-?-?-?-?-?-?- 12w 5d 184 lb 8 oz 104/68 Trac e -?-?-?-?-?-?-?-?-?-?-?-?- Negative 157 -?-?-?-?-?-?-?-?-?-?-?-?- MH-No VB. Nausea improving. Br US confirm FHT 09/14/24 -?-?-?-?-?-?-?-?-?-?-?-?- 16w 5d 190 lb 2 oz 106/71 Nega tive -?-?-?-?-?-?-?-?-?-?-?-?- Negative 156 -?-?-?-?-?-?-?-?-?-?-?-?- KW- No vb/crampi ng. having migraines from lack of caffeine-discussed usage. Anatomy US ordered. AFP declined. 10/12/24 -?-?-?-?-?-?-?-?-?-?-?-?- 20w 5d 195 lb 6 oz 119/75 Nega tive -?-?-?-?-?-?-?-?-?-?-?-?- Negative 140 -?-?-?-?-?-?-?-?-?-?--?-?- SM- no vb crampi ng 11/09/24 -?-?-?-?-?-?-?-?-?-?-?-?- 24w 5d 202 lb 6 oz 104/71 Trac e -?-?-?-?-?-?-?-?-?-?-?-?- Negative 136 24 -?-?-?-?-?-?-?-?-?-?-?-?- KW-no vb/lof/ctx . good fm. discussed magnesium for leg cramps. tejal rooney encouraged. glucose discussed ACOG First Trimester First Trimester: Desire for , Alcohol, Tobacco Cessation, Illicit/Recreational Drug/Substance Use, Unstable Housing, Communication Barriers, Environmental/Work Hazards, Anticipated Course of Care, Toxoplasmosis Precations, Use of Any medications, Sexual activity, Exercise, Dental Care, Sauna/Hot tub use, Seat Belt use, Childbirth classes/Hospital facilities, Travel and Screening for Aneuploidy; Discussed Second Trimester Second Trimester: Signs and Symptoms of Labor, Selecting a care provider, Reproductive Life Planning & Contreception, Care Planning, Depression/Anxiety and Intimate Partner Violence; Discussed Tobacco Cessation ROS Const Reports system reviewed and no additional complaints, except as documented Eyes Reports system reviewed and no additional complaints, except as documented ENT Reports system reviewed and no additional complaints, except as documented Card Reports system reviewed and no additional complaints, except as documented Resp Reports system reviewed and no additional complaints, except as documented GI Reports system reviewed and no additional complaints, except as documented, Denies nausea and Denies vomiting Reports system reviewed and no additional complaints, except as documented Musc Reports system reviewed and no additional complaints, except as documented Skin/Breast Reports system reviewed and no additional complaints, except as documented Neuro Yes system reviewed and no additional complaints, except as documented Psych Reports system reviewed and no additional complaints, except as documented Endo Reports system reviewed and no additional complaints, except as documented Kwabena/Lymph Reports system reviewed and no additional complaints, except as documented Aller/Immun Reports system reviewed and no additional complaints, except as documented Exam Const General: cooperative, healthy appearing and no acute distress Orientation: alert, awake and oriented x3 Neck Neck: normal visual inspection and full ROM Resp Effort & Inspection: normal respiratory effort, able to speak in complete sentences and symmetric chest movement GI Inspection: normal to inspection Palpation: soft and other Other: gravid Skin General: no rashes or lesions noted Neuro General: patient alert, patient awake and patient oriented x3 Cognition: normal cognition Speech: speech normal Gait: normal gait Motor: muscle tone normal throughout Extrem General: normal to inspection and full ROM Psych Appearance: grossly normal Mental Status: mental status grossly normal Mood: congruent mood Affect: normal affect Speech and Movement: speech and movement normal Attitude: cooperative Thought Process: normal Thought Content: normal Judgment: judgment good Results POC Urinalysis 2 Dip (Clinic) Office Urine Glucose Negative Last Edit by Mellissa Saucedo on 11/09/24 09:06 Office Urine Protein Trace Last Edit by Mellissa Saucedo on 11/09/24 09:06 Coding Level of Care Code OB Routine Diagnoses Supervision of high risk in second trimester O09.92 Trimester: second trimester 24 weeks gestation of Z3A.24 Weeks of gestation: 24 weeks Assessment and Plan Assessment and Plan (1) Supervision of high-risk : Status: Acute Qualifiers: Trimester: second trimester Qualified Code(s): O09.92 - Supervision of high risk , unspecified, second trimester Comment: PRR,; BALAJI 02/24/25; surprise PC: Janie; : Aden (2) : Status: Acute Qualifiers: Weeks of gestation: 24 weeks Qualified Code(s): Z3A.24 - 24 weeks gestation of Comment: Discussed genetic/carrier testing NIPT low risk, gender not selected, nl anatomy Orders: Orders POC Urinalysis 2 Dip (Clinic) Today O09.92 - Supervision of high risk , unspecified, second trimester, Z3A.24 - 24 weeks gestation of CBC W/Diff, Automated Today O09.92 - Supervision of high risk , unspecified, second trimester, Z3A.24 - 24 weeks gestation of Glucose Challenge Gest 1H 50g Today O09.92 - Supervision of high risk , unspecified, second trimester, Z13.1 - Encounter for screening for diabetes mellitus, Z3A.24 - 24 weeks gestation of HIV Today O09.92 - Supervision of high risk , unspecified, second trimester, Z3A.24 - 24 weeks gestation of Syphilis Antibodies Today O09.92 - Supervision of high risk , unspecified, second trimester, Z3A.24 - 24 weeks gestation of Plan Details Additional Comments: ACOG trimester education reviewed and updated. see problem list details for updated plan management information and see below for orders placed at this visit. GA appropriate handout given. 11/09/24 6904 <Electronically signed by Ximena benitez CNM> Date _ Ximena Mcghee CNM Cosigner Signature: Date (if applicable) CC: ~ [facility] Work Phone: Progress note Author Barbie Mitchell [facility] Note Date/Time December 28, 2024 9:59am [facility] [address], [address] [place] [address] OFFICE VISIT Date of Service: 12/28/24 MR#: [id number] Acct: [id number] Name: HANNAH HENDRICKS Rep #: [id number] : 1990 Provider: SHAWN Mitchell Age/Sex: 34/F Location: [facility] Status: Signed Intake Vital Signs 11/09/24 08:55 12/15/24 09:22 12/28/24 09:45 12/28/24 09:50 Height 5 ft 6 in 5 ft 6 in 5 ft 6 in 5 ft 6 in Weight: 210 lb BMI 33.9 BP 118/72 Intake Visit Reasons: 32wk ob Chief Complaint: 32 Week OB Balloon Sander Required: No Is patient in pain?: No Allergies amoxicillin Allergy (Intermediate, Verified 12/28/24 09:45) Rash vancomycin Allergy (Intermediate, Verified 12/28/24 09:45) Rash Penicillins Allergy (Mild, Verified 12/28/24 09:45) hives, breathing issues shellfish derived Allergy (Mild, Verified 12/28/24 09:45) hives Medications ?Medication ?Instructions ?Recorded ?Confirmed ?Type docosahexaenoic acid 200 mg 200 mg PO DAILY 04/01/24 0 12/28/24 History capsule ( DHA) ondansetron HCl 4 mg tablet 4 mg PO Q6H #30 tabs 07/2012/28/24 Rx magnesium 200 mg tablet 200 mg PO QDAY 12/01/2412/14 History sertraline 50 mg tablet (Zoloft) 50 mg PO QDAY #30 tab s 12/03/24 12/28/24 Rx Last Menstrual Period: 05/23/24 Zika: Zika virus screening: Negative : No PFSH PFSH Medical History Spontaneous Herniated disc Endometritis following delivery Surgical History Previous back surgery Family History Uncle Colon cancer Liver cancer Grandfather Liver cancer Pancreatic cancer Uncle Diverticulitis Grandmother Heart disease Uncle Heart disease Social History adopted: No household members: spouse and children housing: house number of children: 1 current occupational status: employed current occupation: [employer] current occupational exposures/hazards: No pets and animals: Yes (Not managing litterbox) pets and animals: cat(s), dog(s)and other details: rabbit history of recent travel: No sexually active: Yes Smoking Status: Former smoker quit date: 06/16/24 how long ago did patient quit smokin06/16/24 second hand exposure: No quit status: quit date established alcohol intake: current alcohol intake frequency: a few times a month details: Not while substance use type: does not use well-balanced diet: daily or most days caffeine: Yes Type: coffee and tea eating out: 1-3 times/week during the past year weight has: remained stable what type of physical activity do you participate in: walking frequency: 3-4 times per week duration: 15-30 minutes/day agata/presybeterian: Nondenominational seatbelt use: always do you feel safe at home: Yes 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 Date Name GA/Weeks Outcome Route Bth Weight Infant Gen Labor Lgth Anesthesia Del Locatn Provider FOB 08/11/20 Janie 39 live - full term 7lbs 8.5oz Female epidural [facility] Dr. Quang Samaniego 03/15/24 4 spontaneous Delivery Date: 08/11/20 Last Updated by: Cherelle Reeder Induced HPI 32wk ob Details: HANNAH HENDRICKS is a 34 year old who presents for routine OB visit. OB Visit BALAJI Calculator Estimated Delivery Date Method Current WG Current Estimate 02/24/25 Ultrasound #1 31w 5d Other Estimates 02/27/25 LMP (Certain) 31w 2d Expected Delivery Route/Plan Labor Preferences- CB/BF classes: no labor support person: Aden labor intervention preferences: [] pain management options preferred: epidural cut cord/dad catch: cord : yes PP control planned: discussed discussed possible routes of delivery and associated risks: [] special requests: [] Specific Issue/Plans Covid status: [] Flu vaccine: [] Tdap vaccine: given Rhogam: NA LARC form signed: yes Problem list reviewed and updated with the most current plan of care details and appropriate orders placed. Relevant counseling for the gestational age provided. Continue routine care and follow up unless otherwise noted in visit notes/problem list details Initial Weight: Not Recorded Date -?-?-?-?-?-?-?-?-?-?-?-?- EGA Weight BP Urine Prot -?-?-?-?-?-?-?-?-?-?-?-?- Glucose FHR FuHt Pres Dilation -?-?-?-?-?-?-?-?-?-?-?-?- Effaced St Visit Note 07/20/24 -?-?-?-?-?-?-?-?-?-?-?-?- 8w 5d 182 lb 6 oz 117/79 -?-?-?-?-?-?-?-?-?-?-?-?- 170 -?-?-?-?-?-?-?-?-?-?-?-?- JV- CRL consiste nt with LMP and prior ultrasound. desires NIPT and carrier screen. 08/05/24 -?-?-?-?-?-?-?-?-?-?-?-?- 11w 0d 183 lb 126/78 Negative -?-?-?-?-?-?-?-?-?-?-?-?- Negative 173 -?-?-?-?-?-?-?-?-?-?-?-?- -work in. Fel l on knees last night/increased cramping. No bleeding. Hx of SAB. Live IUP on br US. 08/17/24 -?-?-?-?-?-?-?-?-?-?-?-?- 12w 5d 184 lb 8 oz 104/68 Trac e -?-?--?-?-?-?-?-?-?-?-?-?- Negative 157 -?-?-?-?-?-?-?-?-?-?-?-?- MH-No VB. Nausea improving. Br US confirm FHT 09/14/24 -?-?-?-?-?-?-?-?-?-?-?-?- 16w 5d 190 lb 2 oz 106/71 Nega tive -?-?-?-?-?-?-?-?-?-?-?-?- Negative 156 -?-?-?-?-?-?-?-?-?-?-?-?- KW- No vb/crampi ng. having migraines from lack of caffeine-discussed usage. Anatomy US ordered. AFP declined. 10/12/24 -?-?-?-?-?-?-?-?-?-?-?-?- 20w 5d 195 lb 6 oz 119/75 Nega tive -?-?-?-?-?-?-?-?-?-?-?-?- Negative 140 -?-?-?-?-?-?-?-?-?-?-?-?- SM- no vb crampi ng 11/09/24 -?-?-?-?-?-?-?-?-?-?-?-?- 24w 5d 202 lb 6 oz 104/71 Trac e -?-?-?-?-?-?-?-?-?-?-?-?- Negative 136 24 -?-?-?-?-?-?-?-?-?-?-?-?- KW-no vb/lof/ctx . good fm. discussed magnesium for leg cramps. tejal rooney encouraged. glucose discussed 12/01/24 -?-?-?-?-?-?-?-?-?-?-?-?- 27w 6d 206 lb 4 oz 112/70 Nega tive -?-?-?-?-?-?-?-?-?-?-?-?- Negative 138 27 -?-?-?-?-?-?-?-?-?-?-?--?- MH-No VB. LOF. G ood FM. some RL pain/backache-seeing chiro and using steffen band with benefit. 28 wk labs pending. Larc 12/15/24 -?-?-?-?-?-?-?-?-?-?-?-?- 29w 6d 205 lb 9 oz 106/69 Trac e -?-?-?-?-?-?-?-?-?-?-?-?- Negative 147 30.5 -?-?-?-?-?-?-?-?-?-?-?-?- JV- no lof, vagi nal bleeding, or dec fm JV- no lof, vaginal bleeding , or dec fm. she would like me to do her delivery if available. discussed the group call schedule dynamics and she understands. 12/28/24 -?-?-?-?-?-?-?-?-?-?-?-?- 31w 5d 210 lb 118/72 Trace -?-?-?-?-?-?-?-?-?-?-?-?- Negative 136 32 -?-?-?-?-?-?-?-?-?-?-?-?- MH-No VB, LOF. G ood FM. Tdap. Enc RSV vaccine. Note ok for massage ACOG First Trimester First Trimester: Desire for , Alcohol, Tobacco Cessation, Illicit/Recreational Drug/Substance Use, Unstable Housing, Communication Barriers, Environmental/Work Hazards, Anticipated Course of Care, Toxoplasmosis Precations, Use of Any medications, Sexual activity, Exercise, Dental Care, Sauna/Hot tub use, Seat Belt use, Childbirth classes/Hospital facilities, Travel and Screening for Aneuploidy; Discussed Second Trimester Second Trimester: Signs and Symptoms of Labor, Selecting a care provider, Reproductive Life Planning & Contreception, Care Planning, Depression/Anxiety and Intimate Partner Violence; Discussed Tobacco Cessation Third Trimester Third Trimester: Pain Management Plans, Labor support person(s), Immediate Larc, Circumcision preference, Signs and Symptoms of Preeclampsia, Infant Feeding No and Family Medical Leave or Disability Forms ROS Const Reports system reviewed and no additional complaints, except as documented GI Denies abdominal pain, Denies nausea and Denies vomiting Exam Const General: cooperative Nutritional Appearance: well nourished GI Palpation: soft, nontender and other (gravid) Results POC Urinalysis 2 Dip (Clinic) Office Urine Glucose Negative Last Edit by Linda Matthews on 12/28/24 09 :50 Office Urine Protein Trace Last Edit by Linda aMtthews on 12/28/24 09:50 Coding Level of Care Code OB Routine Diagnoses Supervision of high risk in second trimester O09.92 Trimester: second trimester 31 weeks gestation of Z3A.31 Weeks of gestation: 31 weeks Anxiety F41.9 Assessment and Plan Assessment and Plan (1) Supervision of high-risk : Status: Acute Qualifiers: Trimester: second trimester Qualified Code(s): O09.92 - Supervision of high risk , unspecified, second trimester Comment: PRR,; BALAJI 02/24/25; surprise PC: Janie; : Aden (2) : Status: Acute Qualifiers: Weeks of gestation: 31 weeks Qualified Code(s): Z3A.31 - 31 weeks gestation of Comment: Discussed genetic/carrier testing NIPT low risk, gender not selected, nl anatomy (3) Anxiety: Status: Acute Comment: discussed counseling/meds. Zoloft very helpful Orders: Orders POC Urinalysis 2 Dip (Clinic) Today Plan problem list reviewed and updated for most current plan of care and appropriate orders placed. Relevant counseling for the gestational age appropriate provided and ACOG education checklist updated. Continue routine care and follow up. 12/28/24 0959 <Electronically signed by Barbie benitez NP BIOCHEMICAL ENGINEER-C> Date _ Barbie Mitchell NP BIOCHEMICAL ENGINEER-C Cosigner Signature: Date (if applicable) CC: ~ [facility] Work Phone: Progress note Author Ximena Mcghee [facility] Note Date/Time January 11, 2025 10:42am [facility] [address], [address] [place] [address] OFFICE VISIT Date of Service: 01/11/25 MR#: [id number] Acct: [id number] Name: HANNAH HENDRICKS Rep #: [id number] : 1990 Provider: BART Mcghee Age/Sex: 34/F Location: [facility] [place] Status: Signed Intake Vital Signs 12/01/24 08:19 01/11/25 09:59 01/11/25 09:59 Height 5 ft 6 in 5 ft 6 in 5 ft 6 in Weight: 215 lb 5 oz BMI 34.7 BP 118/75 Intake Visit Reasons: 34 WK OB Balloon Sander Required: No Is patient in pain?: No Allergies amoxicillin Allergy (Intermediate, Verified 01/11/25 09:58) Rash vancomycin Allergy (Intermediate, Verified 01/11/25 09:58) Rash Penicillins Allergy (Mild, Verified 01/11/25 09:58) hives, breathing issues shellfish derived Allergy (Mild, Verified 01/11/25 09:58) hives Medications ?Medication ?Instructions ?Recorded ?Confirmed ?Type docosahexaenoic acid 200 mg 200 mg PO DAILY 04/01/24 0 01/11/25 History capsule ( DHA) ondansetron HCl 4 mg tablet 4 mg PO Q6H #30 tabs 07/2001/11/25 Rx magnesium 200 mg tablet 200 mg PO QDAY 12/01/24/01/07 History sertraline 50 mg tablet (Zoloft) 50 mg PO QDAY #30 tab s 12/03/24 01/11/25 Rx Last Menstrual Period: 05/23/24 Zika: Zika virus screening: Negative : No PFSH PFSH Medical History Spontaneous Herniated disc Endometritis following delivery Surgical History Previous back surgery Family History Uncle Colon cancer Liver cancer Grandfather Liver cancer Pancreatic cancer Uncle Diverticulitis Grandmother Heart disease Uncle Heart disease Social History adopted: No household members: spouse and children housing: house number of children: 1 current occupational status: employed current occupation: [employer] current occupational exposures/hazards: No pets and animals: Yes (Not managing litterbox) pets and animals: cat(s), dog(s)and other details: rabbit history of recent travel: No sexually active: Yes Smoking Status: Former smoker quit date: 06/16/24 how long ago did patient quit smokin06/16/24 second hand exposure: No quit status: quit date established alcohol intake: current alcohol intake frequency: a few times a month details: Not while substance use type: does not use well-balanced diet: daily or most days caffeine: Yes Type: coffee and tea eating out: 1-3 times/week during the past year weight has: remained stable what type of physical activity do you participate in: walking frequency: 3-4 times per week duration: 15-30 minutes/day agata/presybeterian: Nondenominational seatbelt use: always do you feel safe at home: Yes 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 Date Name GA/Weeks Outcome Route Bth Weight Gen Labor Lgth Anesthesia Del Locatn Provider FOB 08/11/20 Janie 39 live - full term 7lbs 8.5oz Female epidural [facility] Dr. Quang Samaniego 03/15/24 4 spontaneous Delivery Date: 08/11/20 Last Updated by: Cherelle Ojedaion Induced HPI 34 WK OB Details: HANNAH HENDRICKS is a 34 year old who presents for routine OB visit. OB Visit BALAJI Calculator Estimated Delivery Date Method Current WG Current Estimate 02/24/25 Ultrasound #1 33w 5d Other Estimates 02/27/25 LMP (Certain) 33w 2d Expected Delivery Route/Plan Labor Preferences- CB/BF classes: no labor support person: Aden labor intervention preferences: [] pain management options preferred: epidural cut cord/dad catch: cord : yes PP control planned: discussed discussed possible routes of delivery and associated risks: [] special requests: [] Specific Issue/Plans Covid status: [] Flu vaccine: [] Tdap vaccine: given Rhogam: NA LARC form signed: yes Problem list reviewed and updated with the most current plan of care details and appropriate orders placed. Relevant counseling for the gestational age provided. Continue routine care and follow up unless otherwise noted in visit notes/problem list details Initial Weight: Not Recorded Date -?-?-?-?-?-?-?-?-?-?-?-?- EGA Weight BP Urine Prot -?-?-?-?-?-?-?-?-?-?-?-?- Glucose FHR FuHt Pres Dilation -?-?-?-?-?-?-?-?-?-?-?-?- Effaced St Visit Note 07/20/24 -?-?-?-?-?-?-?-?-?-?-?-?- 8w 5d 182 lb 6 oz 117/79 -?-?-?-?-?-?-?-?-?-?-?-?- 170 -?-?-?-?-?-?-?-?-?-?-?-?- JV- CRL consiste nt with LMP and prior ultrasound. desires NIPT and carrier screen. 08/05/24 -?-?-?-?-?-?-?-?-?-?-?-?- 11w 0d 183 lb 126/78 Negative -?-?-?-?-?--?-?-?-?-?-?-?- Negative 173 -?-?-?-?-?-?-?-?-?-?-?-?- -work in. Fel l on knees last night/increased cramping. No bleeding. Hx of SAB. Live IUP on br US. 08/17/24 -?-?-?-?-?-?-?-?-?-?-?-?- 12w 5d 184 lb 8 oz 104/68 Trac e -?-?-?-?-?-?-?-?-?-?-?-?- Negative 157 -?-?-?-?-?-?-?-?-?-?-?-?- -No VB. Nausea improving. Br US confirm FHT 09/14/24 -?-?-?-?-?-?-?-?-?-?-?-?- 16w 5d 190 lb 2 oz 106/71 Nega tive -?-?-?-?-?-?-?-?-?-?-?-?- Negative 156 -?-?-?-?-?-?-?-?-?-?-?-?- KW- No vb/crampi ng. having migraines from lack of caffeine-discussed usage. Anatomy US ordered. AFP declined. 10/12/24 -?-?-?-?-?-?-?-?-?-?-?-?- 20w 5d 195 lb 6 oz 119/75 Nega tive -?-?-?-?-?-?-?-?-?-?-?-?- Negative 140 -?-?-?-?-?-?-?-?-?-?-?-?- SM- no vb crampi ng 11/09/24 -?-?-?-?-?-?-?-?-?-?-?-?- 24w 5d 202 lb 6 oz 104/71 Trac e -?-?-?-?-?-?-?-?-?-?-?-?- Negative 136 24 -?-?-?-?-?-?-?-?-?-?-?-?- KW-no vb/lof/ctx . good fm. discussed magnesium for leg cramps. belly band encouraged. glucose discussed 12/01/24 -?-?-?-?-?-?-?-?-?-?-?-?- 27w 6d 206 lb 4 oz 112/70 Nega tive -?-?-?-?-?-?-?-?-?-?-?-?- Negative 138 27 -?-?-?-?-?-?-?-?-?-?-?-?- MH-No VB. LOF. G ood FM. some RL pain/backache-seeing chiro and using steffen band with benefit. 28 wk labs pending. Larc 12/15/24 -?-?-?-?-?-?-?-?-?-?-?-?- 29w 6d 205 lb 9 oz 106/69 Trac e -?-?-?-?-?-?-?-?-?-?-?-?- Negative 147 30.5 -?-?-?-?-?-?-?-?-?-?-?-?- JV- no lof, vagi nal bleeding, or dec fm JV- no lof, vaginal bleeding , or dec fm. she would like me to do her delivery if available. discussed the group call schedule dynamics and she understands. 12/28/24 -?-?-?-?-?-?-?-?-?-?-?-?- 31w 5d 210 lb 118/72 Trace -?-?-?-?-?-?-?-?-?-?-?-?- Negative 136 32 -?-?-?-?-?-?-?-?-?-?-?-?- MH-No VB, LOF. G ood FM. Tdap. Enc RSV vaccine. Note ok for massage 01/11/25 -?-?-?-?-?-?-?-?-?-?-?-?- 33w 5d 215 lb 5 oz 118/75 Nega tive -?-?-?-?-?-?-?-?-?-?-?-?- Negative 130 33 -?-?-?-?-?-?-?-?-?-?-?-?- KW- no vb/lof/ct x. good fm. ACOG First Trimester First Trimester: Desire for , Alcohol, Tobacco Cessation, Illicit/Recreational Drug/Substance Use, Unstable Housing, Communication Barriers, Environmental/Work Hazards, Anticipated Course of Care, Toxoplasmosis Precations, Use of Any medications, Sexual activity, Exercise, Dental Care, Sauna/Hot tub use, Seat Belt use, Childbirth classes/Hospital facilities, Travel and Screening for Aneuploidy; Discussed Second Trimester Second Trimester: Signs and Symptoms of Labor, Selecting a care provider, Reproductive Life Planning & Contreception, Care Planning, Depression/Anxiety and Intimate Partner Violence; Discussed Tobacco Cessation Third Trimester Third Trimester: Pain Management Plans, Labor support person(s), Immediate Larc, Circumcision preference, Signs and Symptoms of Preeclampsia, Feeding No and Family Medical Leave or Disability Forms ROS Const Reports system reviewed and no additional complaints, except as documented Eyes Reports system reviewed and no additional complaints, except as documented ENT Reports system reviewed and no additional complaints, except as documented Card Reports system reviewed and no additional complaints, except as documented Resp Reports system reviewed and no additional complaints, except as documented GI Reports system reviewed and no additional complaints, except as documented, Denies nausea and Denies vomiting Reports system reviewed and no additional complaints, except as documented Musc Reports system reviewed and no additional complaints, except as documented Skin/Breast Reports system reviewed and no additional complaints, except as documented Neuro Yes system reviewed and no additional complaints, except as documented Psych Reports system reviewed and no additional complaints, except as documented Endo Reports system reviewed and no additional complaints, except as documented Kwabena/Lymph Reports system reviewed and no additional complaints, except as documented Aller/Immun Reports system reviewed and no additional complaints, except as documented Exam Const General: cooperative, healthy appearing and no acute distress Orientation: alert, awake and oriented x3 Neck Neck: normal visual inspection and full ROM Resp Effort & Inspection: normal respiratory effort, able to speak in complete sentences and symmetric chest movement GI Inspection: normal to inspection Palpation: soft and other Other: gravid Skin General: no rashes or lesions noted Neuro General: patient alert, patient awake and patient oriented x3 Cognition: normal cognition Speech: speech normal Gait: normal gait Motor: muscle tone normal throughout Extrem General: normal to inspection and full ROM Psych Appearance: grossly normal Mental Status: mental status grossly normal Mood: congruent mood Affect: normal affect Speech and Movement: speech and movement normal Attitude: cooperative Thought Process: normal Thought Content: normal Judgment: judgment good Results POC Urinalysis 2 Dip (Clinic) Office Urine Glucose Negative Last Edit by Cherelle Reeder on 01/11/25 10: 26 Office Urine Protein Negative Last Edit by Cherelle Reeder on 01/11/25 10: 26 Coding Level of Care Code OB Routine Diagnoses Anxiety F41.9 Supervision of high risk in second trimester O09.92 Trimester: second trimester 33 weeks gestation of Z3A.33 Weeks of gestation: 33 weeks Assessment and Plan Assessment and Plan (1) Anxiety: Status: Acute Comment: discussed counseling/meds. Zoloft very helpful (2) Supervision of high-risk : Status: Acute Qualifiers: Trimester: second trimester Qualified Code(s): O09.92 - Supervision of high risk , unspecified, second trimester Comment: PRR,; BALAJI 02/24/25; surprise PC: Janie; : Aden (3) : Status: Acute Qualifiers: Weeks of gestation: 33 weeks Qualified Code(s): Z3A.33 - 33 weeks gestation of Comment: Discussed genetic/carrier testing NIPT low risk, gender not selected, nl anatomy Orders: Orders POC Urinalysis 2 Dip (Clinic) Today Plan Details Additional Comments: ACOG trimester education reviewed and updated. see problem list details for updated plan management information and see below for orders placed at this visit. GA appropriate handout given. 01/11/25 1042 <Electronically signed by Ximena benitez CNM> Date _ Ximena Mcghee CNM Cosigner Signature: Date (if applicable) CC: ~ [facility] Work Phone: Reason for referral (narrative)No reason for referral information availableWMercy Health [facility] Hospital Work Phone: Summary Purpose Family History No Family History Records Found Relationship Condition Age at Onset Recorded Date/T [place] uncle Malignant neoplasm of colon Unknown Malignant neoplasm of liver Unknown grandfather Malignant neoplasm of liver Unknown Relationship Condition Age at Onset Recorded Date/T [place] uncle Malignant neoplasm of colon Unknown Malignant neoplasm of liver Unknown grandfather Malignant neoplasm of liver Unknown Malignant neoplasm of pancreas Unknown uncle Diverticulitis Unknown grandmother Cardiac disease Unknown uncle Cardiac disease Unknown Advance Directives No Advanced Directives Records FoundDocuments on File Type Date Recorded Patient Help Desk Operator Expl anation Advance Directive(s) 11/02/2021 8:14 AM Advance Directive(s) 10/30/2021 9:10 AM Documents on File Type Date Recorded Patient Help Desk Operator Expl anation Advance Directive(s) 11/15/2021 8:36 PM Advance Directive(s) 11/02/2021 8:14 AM Advance Directive(s) 10/30/2021 9:10 AM Advance Directive Response Recorded Date/ Time Living Will No September 23, 2020 12:06pm Power of Dry Cans Operator No September 23 12:06pm Advance Directive Response Recorded Date/ Time Living Will No April 01 5:32pm Power of Dry Cans Operator No April 01, 2024 5:32pm Advance Directive Response Recorded Date/ Time Living Will No April 01 5:32pm Do you have a Healthcare Power of Dry Cans Operator? No April 01, 2024 5:32pm Reason for Referral Specialty Diagnoses / Procedures Referred By Contac t Referred To Contact [facility] Diagnoses Chronic bilateral low back pain with right-sided sciatica Procedures PT REHAB FOLLOW UP ORDER THERAPEUTIC EXERCISES RE, EA [address] [address] [facility] [address] [address] Referral ID Status Reason Start Date Expiration Date Visits Requested Visits Authorized [id number] Pending Review PCP Requested Referral Auto-Generate d Referral 07/16/2022 10/14/2022 1 1 Specialty Diagnoses / Procedures Referred By Contac t Referred To Contact [facility] Diagnoses Radiculopathy, lumbar region Procedures CONSULT TO PHYSICAL THERAPY PHYSICAL THERAPY EVALUATION HIGH COMPLEX [address] [place] [address] [place] [address] [address] Referral ID Status Reason Start Date Expiration Date Visits Requested Visits Authorized [id number] Pending Review Auto-Generat ed Referral 2 04/04/2023 1 1 Specialty Diagnoses / Procedures Referred By Contac t Referred To Contact [facility] Diagnoses Lumbar radiculopathy Procedures CONSULT TO PHYSICAL THERAPY PHYSICAL THERAPY EVALUATION HIGH COMPLEX [address] [place] [address] [place] [address] [facility] [place] [address] [place] [address] Referral ID Status Reason Start Date Expiration Date Visits Requested Visits Authorized [id number] Pending Review Auto-Generat ed Referral 2 03/05/2023 1 1 Specialty Diagnoses / Procedures Referred By Contac t Referred To Contact Diagnoses Pre-op testing Procedures REFER TO PACC - PRE ANESTHESIA CONSULTATION CLINIC OFFICE/OUTPATIENT [facility] 60-74 MINUTES Dharmesh Louise PA-C [address] [place] [address] Referral ID Status Reason Start Date Expiration Date Visits Requested Visits Authorized [id number] Pending Review PCP Requested Referral 12/05/2021 12/05/2022 1 1 Specialty Diagnoses / Procedures Referred By Contac t Referred To Contact Yana Ballard APRN.RESERVATIONS CLERK [address] [address] Referral ID Status Reason Start Date Expiration Date V isits Requested Visits Authorized [id number] Pending Review 1 1 Specialty Diagnoses / Procedures Referred By Contac t Referred To Contact Pain Management Diagnoses Lumbar disc herniation Procedures CONSULT TO PAIN MGT OFFICE/OUTPATIENT [facility] 60-74 MINUTES Yana Ballard APRN.RESERVATIONS CLERK [address] [address] Referral ID Status Reason Start Date Expiration Date Visits Requested Visits Authorized [id number] Pending Review PCP Requested Referral 10/06/2021 10/06/2022 1 1 Specialty Diagnoses / Procedures Referred By Contac t Referred To Contact MR IMAGING Diagnoses Spinal stenosis of lumbar region without neurogenic claudication Procedures MRI LUMBAR SPINE WO IVCON MRI SPINAL CANAL LUMBAR W/O CONTRAST MATERIAL Yana Ballard HEEL REDUCER.RESERVATIONS CLERK [address] [address] Mr Imaging Referral ID Status Reason Start Date Expiration Date Visits Requested Visits Authorized [id number] Authorized Auto-Generat ed Referral 09/19/2021 10/19/2022 1 1 Chief Complaint and Reason for Visit Chief Complaint IUD CHECK Chief Complaint Admit Date VAGINAL BLEEDING April 01, 2024 4:16pm Miscarriage F/U April 14, 2024 1:50pm R/O ECTOPIC June 25, 2024 3 :52pm Reason for Visit Admit Date Spontaneous April 14, 2024 1:50pm Chief Complaint Admit Date VAGINAL BLEEDING April 01, 2024 4:16pm Miscarriage F/U April 14, 2024 1:50pm R/O ECTOPIC June 25, 2024 3 :52pm E ORDER June 27, 2024 2:4 7pm Chief Complaint Admit Date VAGINAL BLEEDING April 01, 2024 4:16pm Miscarriage F/U April 14, 2024 1:50pm R/O ECTOPIC June 25, 2024 3 :52pm E ORDER June 27, 2024 2:4 7pm VIABILITY July 02, 2024 4:2 6pm Amb Documentation July 03, 2024 1:0 6pm Chief Complaint Admit Date VAGINAL BLEEDING April 01, 2024 4:16pm Miscarriage F/U April 14, 2024 1:50pm R/O ECTOPIC June 25, 2024 3 :52pm E ORDER June 27, 2024 2:4 7pm VIABILITY July 02, 2024 4:2 6pm Amb Documentation July 03, 2024 1:0 6pm NOB LMP 05/23July 20, 2024 1:53 pm Reason for Visit Admit Date Spontaneous April 14, 2024 1:50pm Former smoker July 20, 2024 1:53 pm History of miscarriage, currently pregna nt July 20, 2024 1:53pm July 20, 2024 1:53 pm Supervision of high-risk July 20, 2024 1:53pm Chief Complaint Admit Date R/O ECTOPIC June 25, 2024 3 :52pm E ORDER June 27, 2024 2:4 7pm VIABILITY July 02, 2024 4:2 6pm Amb Documentation July 03, 2024 1:0 6pm NOB LMP 05/23July 20, 2024 1:53 pm Heart tone check August 05, 2024 9:4 9am 13wk ob August 17, 2024 8:28am 17wk ob September 14, 2024 8:56a m Reason for Visit Admit Date Former smoker July 20, 2024 1:53 pm History of miscarriage, currently pregna nt July 20, 2024 1:53pm July 20, 2024 1:53 pm Supervision of high-risk July 20, 2024 1:53pm Former smoker August 05, 2024 9:4 9am History of miscarriage, currently pregna nt August 05, 2024 9:49am August 05, 2024 9:4 9am Supervision of high-risk August 05, 2024 9:49am Former smoker August 17, 2024 8:28am History of miscarriage, currently pregna nt August 17, 2024 8:28am August 17, 2024 8:28am Supervision of high-risk August 172024 8:28am Former smoker September 14, 2024 8:56a m History of miscarriage, currently pregna nt September 14, 2024 8:56am September 14, 2024 8:56a m Supervision of high-risk September 14, 2024 8:56am Chief Complaint Admit Date R/O ECTOPIC June 25, 2024 3 :52pm E ORDER June 27, 2024 2:4 7pm VIABILITY July 02, 2024 4:2 6pm Amb Documentation July 03, 2024 1:0 6pm NOB LMP /July 20, 2024 1:53 pm Heart tone check August 05, 2024 9:4 9am 13wk ob August 17, 2024 8:28am 17wk ob September 14, 2024 8:56a m 21wk ob October 12, 2024 3:50 pm Reason for Visit Admit Date July 20, 2024 1:53 pm Supervision of high-risk July 20, 2024 1:53pm Former smoker July 20, 2024 1:53 pm History of miscarriage, currently pregna nt July 20, 2024 1:53pm August 05, 2024 9:4 9am Supervision of high-risk August 05, 2024 9:49am Former smoker August 05, 2024 9:4 9am History of miscarriage, currently pregna nt August 05, 2024 9:49am August 17, 2024 8:28am Supervision of high-risk August 172024 8:28am Former smoker August 17, 2024 8:28am History of miscarriage, currently pregna nt August 17, 2024 8:28am September 14, 2024 8:56a m Supervision of high-risk September 14, 2024 8:56am Former smoker September 14, 2024 8:56a m History of miscarriage, currently pregna nt September 14, 2024 8:56am October 12, 2024 3:50 pm Supervision of high-risk October 12, 2024 3:50pm Former smoker October 12, 2024 3:50 pm Chief Complaint Admit Date NOB LMP 2/8 July 20, 2024 1:53 pm Heart tone check August 05, 2024 9:4 9am 13wk ob August 17, 2024 8:28am 17wk ob September 14, 2024 8:56a m 21wk ob October 12, 2024 3:50 pm 25 wk ob November 09, 2024 8:49 am Reason for Visit Admit Date July 20, 2024 1:53 pm Supervision of high-risk July 20, 2024 1:53pm Former smoker July 20, 2024 1:53 pm History of miscarriage, currently pregna nt July 20, 2024 1:53pm August 05, 2024 9:4 9am Supervision of high-risk August 05, 2024 9:49am Former smoker August 05, 2024 9:4 9am History of miscarriage, currently pregna nt August 05, 2024 9:49am August 17, 2024 8:28am Supervision of high-risk August 172024 8:28am Former smoker August 17, 2024 8:28am History of miscarriage, currently pregna nt August 17, 2024 8:28am September 14, 2024 8:56a m Supervision of high-risk September 14, 2024 8:56am Former smoker September 14, 2024 8:56a m History of miscarriage, currently pregna nt September 14, 2024 8:56am October 12, 2024 3:50 pm Supervision of high-risk October 12, 2024 3:50pm Former smoker October 12, 2024 3:50 pm November 09, 2024 8:49 am Supervision of high-risk November 09, 2024 8:49am Chief Complaint Admit Date Heart tone check August 05, 2024 9:4 9am 13wk ob August 17, 2024 8:28am 17wk ob September 14, 2024 8:56a m 21wk ob October 12, 2024 3:50 pm 25 wk ob November 09, 2024 8:49 am 28wk ob/glucose December 01, 2024 8: 08am Reason for Visit Admit Date August 05, 2024 9:4 9am Supervision of high-risk August 05, 2024 9:49am Former smoker August 05, 2024 9:4 9am History of miscarriage, currently pregna nt August 05, 2024 9:49am August 17, 2024 8:28am Supervision of high-risk August 172024 8:28am Former smoker August 17, 2024 8:28am History of miscarriage, currently pregna nt August 17, 2024 8:28am September 14, 2024 8:56a m Supervision of high-risk September 14, 2024 8:56am Former smoker September 14, 2024 8:56a m History of miscarriage, currently pregna nt September 14, 2024 8:56am October 12, 2024 3:50 pm Supervision of high-risk October 12, 2024 3:50pm Former smoker October 12, 2024 3:50 pm November 09, 2024 8:49 am Supervision of high-risk November 09, 2024 8:49am Anxiety December 01, 2024 8: 08am December 01, 2024 8: 08am Supervision of high-risk Augus t 2024 8:08am Chief Complaint Admit Date 13wk ob August 17, 2024 8:28am 17wk ob September 14, 2024 8:56a m 21wk ob October 12, 2024 3:50 pm 25 wk ob November 09, 2024 8:49 am 28wk ob/glucose December 01, 2024 8: 08am Reason for Visit Admit Date August 17, 2024 8:28am Supervision of high-risk August 172024 8:28am Former smoker August 17, 2024 8:28am History of miscarriage, currently pregna nt August 17, 2024 8:28am September 14, 2024 8:56a m Supervision of high-risk September 14, 2024 8:56am Former smoker September 14, 2024 8:56a m History of miscarriage, currently pregna nt September 14, 2024 8:56am October 12, 2024 3:50 pm Supervision of high-risk October 12, 2024 3:50pm Former smoker October 12, 2024 3:50 pm November 09, 2024 8:49 am Supervision of high-risk November 09, 2024 8:49am Anxiety December 01, 2024 8: 08am December 01, 2024 8: 08am Supervision of high-risk Augus t 2024 8:08am Chief Complaint Admit Date 13wk ob August 17, 2024 8:28am 17wk ob September 14, 2024 8:56a m 21wk ob October 12, 2024 3:50 pm 25 wk ob November 09, 2024 8:49 am 28wk ob/glucose December 01, 2024 8: 08am 30 wk ob December 15, 2024 9:19am Reason for Visit Admit Date August 17, 2024 8:28am Supervision of high-risk August 172024 8:28am Former smoker August 17, 2024 8:28am History of miscarriage, currently pregna nt August 17, 2024 8:28am September 14, 2024 8:56a m Supervision of high-risk September 14, 2024 8:56am Former smoker September 14, 2024 8:56a m History of miscarriage, currently pregna nt September 14, 2024 8:56am October 12, 2024 3:50 pm Supervision of high-risk October 12, 2024 3:50pm Former smoker October 12, 2024 3:50 pm November 09, 2024 8:49 am Supervision of high-risk November 09, 2024 8:49am Anxiety December 01, 2024 8: 08am December 01, 2024 8: 08am Supervision of high-risk Augus t 2024 8:08am Anxiety December 15, 2024 9:19am December 15, 2024 9:19am Supervision of high-risk Septe [email or web address] 9:19am Chief Complaint Admit Date 17wk ob September 14, 2024 8:56a m 21wk ob October 12, 2024 3:50 pm 25 wk ob November 09, 2024 8:49 am 28wk ob/glucose December 01, 2024 8: 08am 30 wk ob December 15, 2024 9:19am 32wk ob December 28, 2024 9:42am Reason for Visit Admit Date September 14, 2024 8:56a m Supervision of high-risk September 14, 2024 8:56am Former smoker September 14, 2024 8:56a m History of miscarriage, currently pregna nt September 14, 2024 8:56am October 12, 2024 3:50 pm Supervision of high-risk October 12, 2024 3:50pm Former smoker October 12, 2024 3:50 pm November 09, 2024 8:49 am Supervision of high-risk November 09, 2024 8:49am Anxiety December 01, 2024 8: 08am December 01, 2024 8: 08am Supervision of high-risk Augus t 2024 8:08am Anxiety December 15, 2024 9:19am December 15, 2024 9:19am Supervision of high-risk Septe [email or web address] 9:19am Anxiety December 28, 2024 9:42am December 28, 2024 9:42am Supervision of high-risk Septe mb 2024 9:42am Chief Complaint Admit Date 21wk ob October 12, 2024 3:50 pm 25 wk ob November 09, 2024 8:49 am 28wk ob/glucose December 01, 2024 8: 08am 30 wk ob December 15, 2024 9:19am 32wk ob December 28, 2024 9:42am 34 WK OB January 11, 2025 10:15am Reason for Visit Admit Date October 12, 2024 3:50 pm Supervision of high-risk October 12, 2024 3:50pm Former smoker October 12, 2024 3:50 pm November 09, 2024 8:49 am Supervision of high-risk November 09, 2024 8:49am Anxiety December 01, 2024 8: 08am December 01, 2024 8: 08am Supervision of high-risk Augus t 2024 8:08am Anxiety December 15, 2024 9:19am December 15, 2024 9:19am Supervision of high-risk Septe [email or web address] 9:19am Anxiety December 28, 2024 9:42am December 28, 2024 9:42am Supervision of high-risk Septe mber 2024 9:42am Anxiety January 11, 2025 10:15am January 11, 2025 10:15am Supervision of high-risk Septe mber 2024 10:15am Additional Source Comments INFORMATION SOURCE (unrecogn ized section and content) DATE CREATED AUTHOR 09/15/2021 [facility] DATE CREATED AUTHOR AUTHOR'S ORGANIZ ATION 03/21/2022 [facility] DATE CREATED AUTHOR AUTHOR'S ORGANIZ ATION 02/10/2023 [facility] DATE CREATED AUTHOR AUTHOR'S ORGANIZ ATION 05/18/2023 [facility] DATE CREATED AUTHOR AUTHOR'S ORGANIZ ATION 08/04/2023 [facility] DATE CREATED AUTHOR AUTHOR'S ORGANIZ ATION 10/09/2024 [facility] DATE CREATED AUTHOR AUTHOR'S ORGANIZ ATION 01/27/2025 [facility] Source Comments (unrecognize d section and content) In the event this informatio n is protected by the Federal Confidentiality of Alcohol and Drug Abuse Patient Records regulations: The Federal rules restrict any use of the information to criminally investigate or prosecute any alcohol or drug abuse patient.[facility] the event this information is protected by the Federal Confidentiality of Alcohol and Drug Abuse Patient Records regulations: The Federal rules restrict any use of the information to criminally investigate or prosecute any alcohol or drug abuse patient.[facility] Center[facility] the event this information is protected by the Federal Confidentiality of Alcohol and Drug Abuse Patient Records regulations: The Federal rules restrict any use of the information to criminally investigate or prosecute any alcohol or drug abuse patient.[facility] the event this information is protected by the Federal Confidentiality of Alcohol and Drug Abuse Patient Records regulations: The Federal rules restrict any use of the information to criminally investigate or prosecute any alcohol or drug abuse patient.[facility] Center[facility] the event this information is protected by the Federal Confidentiality of Alcohol and Drug Abuse Patient Records regulations: The Federal rules restrict any use of the information to criminally investigate or prosecute any alcohol or drug abuse patient.[facility] CenterIn the event this information is protected by the Federal Confidentiality of Alcohol and Drug Abuse Patient Records regulations: The Federal rules restrict any use of the information to criminally investigate or prosecute any alcohol or drug abuse patient.[facility] CenterIn the event this information is protected by the Federal Confidentiality of Alcohol and Drug Abuse Patient Records regulations: The Federal rules restrict any use of the information to criminally investigate or prosecute any alcohol or drug abuse patient.[facility] CenterIn the event this information is protected by the Federal Confidentiality of Alcohol and Drug Abuse Patient Records regulations: The Federal rules restrict any use of the information to criminally investigate or prosecute any alcohol or drug abuse patient.[facility] CenterIn the event this information is protected by the Federal Confidentiality of Alcohol and Drug Abuse Patient Records regulations: The Federal rules restrict any use of the information to criminally investigate or prosecute any alcohol or drug abuse patient.[facility] CenterIn the event this information is protected by the Federal Confidentiality of Alcohol and Drug Abuse Patient Records regulations: The Federal rules restrict any use of the information to criminally investigate or prosecute any alcohol or drug abuse patient.[facility] CenterIn the event this information is protected by the Federal Confidentiality of Alcohol and Drug Abuse Patient Records regulations: The Federal rules restrict any use of the information to criminally investigate or prosecute any alcohol or drug abuse patient.[facility] CenterIn the event this information is protected by the Federal Confidentiality of Alcohol and Drug Abuse Patient Records regulations: The Federal rules restrict any use of the information to criminally investigate or prosecute any alcohol or drug abuse patient.[facility] CenterIn the event this information is protected by the Federal Confidentiality of Alcohol and Drug Abuse Patient Records regulations: The Federal rules restrict any use of the information to criminally investigate or prosecute any alcohol or drug abuse patient.[facility] CenterIn the event this information is protected by the Federal Confidentiality of Alcohol and Drug Abuse Patient Records regulations: The Federal rules restrict any use of the information to criminally investigate or prosecute any alcohol or drug abuse patient.[facility] CenterIn the event this information is protected by the Federal Confidentiality of Alcohol and Drug Abuse Patient Records regulations: The Federal rules restrict any use of the information to criminally investigate or prosecute any alcohol or drug abuse patient.[facility] CenterIn the event this information is protected by the Federal Confidentiality of Alcohol and Drug Abuse Patient Records regulations: The Federal rules restrict any use of the information to criminally investigate or prosecute any alcohol or drug abuse patient.[facility] CenterIn the event this information is protected by the Federal Confidentiality of Alcohol and Drug Abuse Patient Records regulations: The Federal rules restrict any use of the information to criminally investigate or prosecute any alcohol or drug abuse patient.[facility] CenterIn the event this information is protected by the Federal Confidentiality of Alcohol and Drug Abuse Patient Records regulations: The Federal rules restrict any use of the information to criminally investigate or prosecute any alcohol or drug abuse patient.[facility] CenterIn the event this information is protected by the Federal Confidentiality of Alcohol and Drug Abuse Patient Records regulations: The Federal rules restrict any use of the information to criminally investigate or prosecute any alcohol or drug abuse patient.[facility] CenterIn the event this information is protected by the Federal Confidentiality of Alcohol and Drug Abuse Patient Records regulations: The Federal rules restrict any use of the information to criminally investigate or prosecute any alcohol or drug abuse patient.[facility] CenterIn the event this information is protected by the Federal Confidentiality of Alcohol and Drug Abuse Patient Records regulations: The Federal rules restrict any use of the information to criminally investigate or prosecute any alcohol or drug abuse patient.[facility] CenterIn the event this information is protected by the Federal Confidentiality of Alcohol and Drug Abuse Patient Records regulations: The Federal rules restrict any use of the information to criminally investigate or prosecute any alcohol or drug abuse patient.[facility] CenterIn the event this information is protected by the Federal Confidentiality of Alcohol and Drug Abuse Patient Records regulations: The Federal rules restrict any use of the information to criminally investigate or prosecute any alcohol or drug abuse patient.[facility] CenterIn the event this information is protected by the Federal Confidentiality of Alcohol and Drug Abuse Patient Records regulations: The Federal rules restrict any use of the information to criminally investigate or prosecute any alcohol or drug abuse patient.[facility] CenterIn the event this information is protected by the Federal Confidentiality of Alcohol and Drug Abuse Patient Records regulations: The Federal rules restrict any use of the information to criminally investigate or prosecute any alcohol or drug abuse patient.[facility] CenterIn the event this information is protected by the Federal Confidentiality of Alcohol and Drug Abuse Patient Records regulations: The Federal rules restrict any use of the information to criminally investigate or prosecute any alcohol or drug abuse patient.[facility] CenterIn the event this information is protected by the Federal Confidentiality of Alcohol and Drug Abuse Patient Records regulations: The Federal rules restrict any use of the information to criminally investigate or prosecute any alcohol or drug abuse patient.[facility] CenterIn the event this information is protected by the Federal Confidentiality of Alcohol and Drug Abuse Patient Records regulations: The Federal rules restrict any use of the information to criminally investigate or prosecute any alcohol or drug abuse patient.[facility] CenterIn the event this information is protected by the Federal Confidentiality of Alcohol and Drug Abuse Patient Records regulations: The Federal rules restrict any use of the information to criminally investigate or prosecute any alcohol or drug abuse patient.[facility] CenterIn the event this information is protected by the Federal Confidentiality of Alcohol and Drug Abuse Patient Records regulations: The Federal rules restrict any use of the information to criminally investigate or prosecute any alcohol or drug abuse patient.[facility] CenterIn the event this information is protected by the Federal Confidentiality of Alcohol and Drug Abuse Patient Records regulations: The Federal rules restrict any use of the information to criminally investigate or prosecute any alcohol or drug abuse patient.[facility] CenterIn the event this information is protected by the Federal Confidentiality of Alcohol and Drug Abuse Patient Records regulations: The Federal rules restrict any use of the information to criminally investigate or prosecute any alcohol or drug abuse patient.[facility] CenterIn the event this information is protected by the Federal Confidentiality of Alcohol and Drug Abuse Patient Records regulations: The Federal rules restrict any use of the information to criminally investigate or prosecute any alcohol or drug abuse patient.[facility] CenterIn the event this information is protected by the Federal Confidentiality of Alcohol and Drug Abuse Patient Records regulations: The Federal rules restrict any use of the information to criminally investigate or prosecute any alcohol or drug abuse patient.[facility] CenterIn the event this information is protected by the Federal Confidentiality of Alcohol and Drug Abuse Patient Records regulations: The Federal rules restrict any use of the information to criminally investigate or prosecute any alcohol or drug abuse patient.[facility] CenterIn the event this information is protected by the Federal Confidentiality of Alcohol and Drug Abuse Patient Records regulations: The Federal rules restrict any use of the information to criminally investigate or prosecute any alcohol or drug abuse patient.[facility] CenterIn the event this information is protected by the Federal Confidentiality of Alcohol and Drug Abuse Patient Records regulations: The Federal rules restrict any use of the information to criminally investigate or prosecute any alcohol or drug abuse patient.[facility] CenterIn the event this information is protected by the Federal Confidentiality of Alcohol and Drug Abuse Patient Records regulations: The Federal rules restrict any use of the information to criminally investigate or prosecute any alcohol or drug abuse patient.[facility] CenterIn the event this information is protected by the Federal Confidentiality of Alcohol and Drug Abuse Patient Records regulations: The Federal rules restrict any use of the information to criminally investigate or prosecute any alcohol or drug abuse patient.[facility] CenterIn the event this information is protected by the Federal Confidentiality of Alcohol and Drug Abuse Patient Records regulations: The Federal rules restrict any use of the information to criminally investigate or prosecute any alcohol or drug abuse patient.[facility] CenterIn the event this information is protected by the Federal Confidentiality of Alcohol and Drug Abuse Patient Records regulations: The Federal rules restrict any use of the information to criminally investigate or prosecute any alcohol or drug abuse patient.[facility] CenterIn the event this information is protected by the Federal Confidentiality of Alcohol and Drug Abuse Patient Records regulations: The Federal rules restrict any use of the information to criminally investigate or prosecute any alcohol or drug abuse patient.[facility] CenterIn the event this information is protected by the Federal Confidentiality of Alcohol and Drug Abuse Patient Records regulations: The Federal rules restrict any use of the information to criminally investigate or prosecute any alcohol or drug abuse patient.[facility] CenterIn the event this information is protected by the Federal Confidentiality of Alcohol and Drug Abuse Patient Records regulations: The Federal rules restrict any use of the information to criminally investigate or prosecute any alcohol or drug abuse patient.[facility] CenterIn the event this information is protected by the Federal Confidentiality of Alcohol and Drug Abuse Patient Records regulations: The Federal rules restrict any use of the information to criminally investigate or prosecute any alcohol or drug abuse patient.[facility] CenterIn the event this information is protected by the Federal Confidentiality of Alcohol and Drug Abuse Patient Records regulations: The Federal rules restrict any use of the information to criminally investigate or prosecute any alcohol or drug abuse patient.[facility] CenterIn the event this information is protected by the Federal Confidentiality of Alcohol and Drug Abuse Patient Records regulations: The Federal rules restrict any use of the information to criminally investigate or prosecute any alcohol or drug abuse patient.[facility] CenterIn the event this information is protected by the Federal Confidentiality of Alcohol and Drug Abuse Patient Records regulations: The Federal rules restrict any use of the information to criminally investigate or prosecute any alcohol or drug abuse patient.[facility] CenterIn the event this information is protected by the Federal Confidentiality of Alcohol and Drug Abuse Patient Records regulations: The Federal rules restrict any use of the information to criminally investigate or prosecute any alcohol or drug abuse patient.[facility] CenterIn the event this information is protected by the Federal Confidentiality of Alcohol and Drug Abuse Patient Records regulations: The Federal rules restrict any use of the information to criminally investigate or prosecute any alcohol or drug abuse patient.[facility] CenterIn the event this information is protected by the Federal Confidentiality of Alcohol and Drug Abuse Patient Records regulations: The Federal rules restrict any use of the information to criminally investigate or prosecute any alcohol or drug abuse patient.[facility] CenterIn the event this information is protected by the Federal Confidentiality of Alcohol and Drug Abuse Patient Records regulations: The Federal rules restrict any use of the information to criminally investigate or prosecute any alcohol or drug abuse patient.[facility] CenterIn the event this information is protected by the Federal Confidentiality of Alcohol and Drug Abuse Patient Records regulations: The Federal rules restrict any use of the information to criminally investigate or prosecute any alcohol or drug abuse patient.[facility] CenterIn the event this information is protected by the Federal Confidentiality of Alcohol and Drug Abuse Patient Records regulations: The Federal rules restrict any use of the information to criminally investigate or prosecute any alcohol or drug abuse patient.[facility] CenterIn the event this information is protected by the Federal Confidentiality of Alcohol and Drug Abuse Patient Records regulations: The Federal rules restrict any use of the information to criminally investigate or prosecute any alcohol or drug abuse patient.[facility] CenterIn the event this information is protected by the Federal Confidentiality of Alcohol and Drug Abuse Patient Records regulations: The Federal rules restrict any use of the information to criminally investigate or prosecute any alcohol or drug abuse patient.[facility] CenterIn the event this information is protected by the Federal Confidentiality of Alcohol and Drug Abuse Patient Records regulations: The Federal rules restrict any use of the information to criminally investigate or prosecute any alcohol or drug abuse patient.[facility] CenterIn the event this information is protected by the Federal Confidentiality of Alcohol and Drug Abuse Patient Records regulations: The Federal rules restrict any use of the information to criminally investigate or prosecute any alcohol or drug abuse patient.[facility] CenterIn the event this information is protected by the Federal Confidentiality of Alcohol and Drug Abuse Patient Records regulations: The Federal rules restrict any use of the information to criminally investigate or prosecute any alcohol or drug abuse patient.[facility] CenterIn the event this information is protected by the Federal Confidentiality of Alcohol and Drug Abuse Patient Records regulations: The Federal rules restrict any use of the information to criminally investigate or prosecute any alcohol or drug abuse patient.[facility] CenterIn the event this information is protected by the Federal Confidentiality of Alcohol and Drug Abuse Patient Records regulations: The Federal rules restrict any use of the information to criminally investigate or prosecute any alcohol or drug abuse patient.[facility] CenterIn the event this information is protected by the Federal Confidentiality of Alcohol and Drug Abuse Patient Records regulations: The Federal rules restrict any use of the information to criminally investigate or prosecute any alcohol or drug abuse patient.[facility] CenterIn the event this information is protected by the Federal Confidentiality of Alcohol and Drug Abuse Patient Records regulations: The Federal rules restrict any use of the information to criminally investigate or prosecute any alcohol or drug abuse patient.[facility] CenterIn the event this information is protected by the Federal Confidentiality of Alcohol and Drug Abuse Patient Records regulations: The Federal rules restrict any use of the information to criminally investigate or prosecute any alcohol or drug abuse patient.[facility] CenterIn the event this information is protected by the Federal Confidentiality of Alcohol and Drug Abuse Patient Records regulations: The Federal rules restrict any use of the information to criminally investigate or prosecute any alcohol or drug abuse patient.[facility] Reason for Visit (unrecogniz ed section and content) Reason Comments PT Progress Note Specialty Diagnoses / Procedures Referred By Brett brandt Referred To Contact [facility] Diagnoses Radiculopathy, lumbar region Procedures CONSULT TO PHYSICAL THERAPY PHYSICAL THERAPY EVALUATION HIGH COMPLEX 45 [place] [address] [place] [address] [facility] [address] [address] Referral ID Status Reason Start Date Expiration Date V isits Requested Visits Authorized [id number] Authorized 04/15/2022 04/14/2023 20 20 Reason Comments Physical Therapy Specialty Diagnoses / Procedures Referred By Brett t Referred To Contact [facility] Diagnoses Radiculopathy, lumbar region Procedures CONSULT TO PHYSICAL THERAPY PHYSICAL THERAPY EVALUATION HIGH COMPLEX [address] [place] [address] [place] [address] [facility] [address] [place] [address] Reason Comments PT Progress Note Reason Comments Establish Care follow up from ED, b ack pain Specialty Diagnoses / Procedures Referred By Contac t Referred To Contact [facility] Diagnoses Spinal stenosis of lumbar region without neurogenic claudication Procedures MRI LUMBAR SPINE WO IVCON MRI SPINAL CANAL LUMBAR W/O CONTRAST MATERIAL Yana Ballard, HEEL REDUCER.RESERVATIONS CLERK [address] [place] [address] Mr Imaging Referral ID Status Reason Start Date Expiration Date V isits Requested Visits Authorized [id number] Closed Auto-Generate d Referral 09/19/2021 10/19/2022 1 1 Reason Comments Results MRI Reason Onset Date Comments Refill Request 10/06/2021 Specialty Diagnoses / Procedures Referred By Contac t Referred To Contact Pain Management Diagnoses Lumbar disc herniation Procedures CONSULT TO PAIN MGT OFFICE/OUTPATIENT NEW HIGH MDM 60-74 MINUTES Yana Ballard, HEEL REDUCER.RESERVATIONS CLERK [address] [place] [address] Referral ID Status Reason Start Date Expiration Date Visits Requested Visits Authorized [id number] Pending Review PCP Requested Referral 10/06/2021 10/06/2022 1 1 Reason Onset Date Comments Refill Request 11/04/2021 Reason Comments Back Pain Reason Comments Pain Reason Comments Pain Back Pain Reason Comments STD Paperwork Received 11/23 Reason Comments New Patient lumbar Reason Comments Insurance Authorization Clinicals needed for P.A. for surgery Reason Comments Patient Update Reason Comments Patient Question Reason Comments Forms Reason Comments Post Op Sx: 12/19/2021 Reason Comments Medication Problem Reason Comments Lumbar herniated disc Reason Comments Orders Reason Onset Date Comments Refill Request 03/14/2022 Reason Comments MRI results Specialty Diagnoses / Procedures Referred By Contac t Referred To Contact [facility] Diagnoses Spinal stenosis of lumbar region with neurogenic claudication Procedures MRI LUMBAR SPINE WO IVCON MRI SPINAL CANAL LUMBAR W/O CONTRAST MATERIAL Radha Dickens PA-C [address] [place] [address] Mr Imaging Referral ID Status Reason Start Date Expiration Date V isits Requested Visits Authorized [id number] Closed Auto-Generate d Referral 03/12/2022 04/26/2022 1 1 Specialty Diagnoses / Procedures Referred By Contac t Referred To Contact Diagnoses Pre-op testing Procedures REFER TO PACC - PRE ANESTHESIA CONSULTATION CLINIC OFFICE/OUTPATIENT [facility] MDM 60-[place] [address] [place] [address] Referral ID Status Reason Start Date Expiration Date Visits Requested Visits Authorized [id number] Pending Review PCP Requested Referral 03/16/2022 03/16/2023 1 1 Reason Comments Post Op Sore and stiffness Reason Comments PT Eval Referral ID Status Reason Start Date Expiration Date Visits Requested Visits Authorized [id number] Pending Review Auto-Generat ed Referral 04/04/2023 1 1 Reason Comments Follow Up Reason Comments Post Op Symptoms Reason Comments Leg Pain Reason Comments PT Discharge Specialty Diagnoses / Procedures Referred By Contac t Referred To Contact [facility] Diagnoses Radiculopathy, lumbar region Procedures CONSULT TO PHYSICAL THERAPY PHYSICAL THERAPY EVALUATION [facility] COMPLEX [address] [place] [address] [place] [address] [facility] [place] [address] [place] [address] Reason Comments Follow Up Pt states that she i s having pain in lower back, SI area, that runs down both legs. Has had physical therapy. Specialty Diagnoses / Procedures Referred By Contac t Referred To Contact [facility] Diagnoses Spinal stenosis of lumbar region with neurogenic claudication Procedures MRI LUMBAR SPINE WO IVCON MRI SPINAL CANAL LUMBAR W/[place] [address] [place] [address] [place] [id number] Referral ID Status Reason Start Date Expiration Date V isits Requested Visits Authorized [id number] Closed Auto-Generate d Referral 02/06/2023 03/07/2024 1 1 Reason Comments Diarrhea Care Teams (unrecognized sec tion and content) Process Description Writer Relationship Specialty Start Date End Date Yana Ballard, HEEL REDUCER.RESERVATIONS CLERK [address] [facility] [id number] [place], [place] [address] PCP - General Family Practice 10/27/12 Process Description Writer Relationship Specialty Start Date End Date Yana Ballard, HEEL REDUCER.RESERVATIONS CLERK [address] [address] PCP - General Family Practice 10/27/12 Process Description Writer Relationship Specialty Start Date End Date Yana Ballard, HEEL REDUCER.RESERVATIONS CLERK [address] [address] PCP - General Family Practice 10/27/12 Process Description Writer Relationship Specialty Start Date End Date Yana Ballard, HEEL REDUCER.RESERVATIONS CLERK [address] [address] PCP - General Family Practice 10/27/12 Process Description Writer Relationship Specialty Start Date End Date Yana Ballard, HEEL REDUCER.RESERVATIONS CLERK [address] [address] PCP - General Family Practice 10/27/12 Process Description Writer Relationship Specialty Start Date End Date Yana Ballard, HEEL REDUCER.RESERVATIONS CLERK [address] [address] PCP - General Family Practice 10/27/12 Process Description Writer Relationship Specialty Start Date End Date Yana Ballard, HEEL REDUCER.RESERVATIONS CLERK [address] [address] PCP - General Family Practice 10/27/12 Process Description Writer Relationship Specialty Start Date End Date Yana Ballard, HEEL REDUCER.RESERVATIONS CLERK [address] [address] PCP - General Family Practice 10/27/12 Process Description Writer Relationship Specialty Start Date End Date Yana Ballard, HEEL REDUCER.RESERVATIONS CLERK [address] [address] PCP - General Family Practice 10/27/12 Process Description Writer Relationship Specialty Start Date End Date Yana Ballard, HEEL REDUCER.RESERVATIONS CLERK [address] [address] PCP - General Family Practice 10/27/12 Process Description Writer Relationship Specialty Start Date End Date Yana Ballard, HEEL REDUCER.RESERVATIONS CLERK [address] [address] PCP - General Family Practice 10/27/12 Process Description Writer Relationship Specialty Start Date End Date Yana Ballard, HEEL REDUCER.RESERVATIONS CLERK [address] [address] PCP - General Family Practice 10/27/12 Process Description Writer Relationship Specialty Start Date End Date Yana Ballard, HEEL REDUCER.RESERVATIONS CLERK [address] [address] PCP - General Family Practice 10/27/12 Process Description Writer Relationship Specialty Start Date End Date Yana Ballard, HEEL REDUCER.RESERVATIONS CLERK [address] [address] PCP - General Family Practice 10/27/12 Process Description Writer Relationship Specialty Start Date End Date Yana Ballard, HEEL REDUCER.RESERVATIONS CLERK [address] [address] PCP - General Family Practice 10/27/12 Process Description Writer Relationship Specialty Start Date End Date Yana Ballard, HEEL REDUCER.RESERVATIONS CLERK [address] [address] PCP - General Family Practice 10/27/12 Process Description Writer Relationship Specialty Start Date End Date Yana Ballard, HEEL REDUCER.RESERVATIONS CLERK [address] [address] PCP - General Family Practice 10/27/12 Process Description Writer Relationship Specialty Start Date End Date Yana Ballard APRN.RESERVATIONS CLERK [address] [facility] [id number] [place] [address] PCP - General Family Practice 10/27/12 12/11/21 Thomas Salinas MD [address] [place] [address] PCP - General Family Practice 12/12/21 Process Description Writer Relationship Specialty Start Date End Date Thomas Salinas MD [address] [place] [address] PCP - General Family Practice 12/12/21 Process Description Writer Relationship Specialty Start Date End Date Thomas Salinas MD [address] [place] [address] PCP - General Family Medicine 12/12/21 Process Description Writer Relationship Specialty Start Date End Date Thomas Salinas MD [address] [place] [address] PCP - General Family Medicine 12/12/21 Process Description Writer Relationship Specialty Start Date End Date Thomas Salinas MD [address] [place] [address] PCP - General Family Medicine 12/12/21 Process Description Writer Relationship Specialty Start Date End Date Thomas Salinas MD [address] [place] [address] PCP - General Family Medicine 12/12/21 Process Description Writer Relationship Specialty Start Date End Date Thomas Salinas MD [address] [place] [address] PCP - General Family Medicine 12/12/21 Process Description Writer Relationship Specialty [place] [address] [place] [address], [place] [address] PCP - General Family Medicine 12/12/21 Process Description Writer Relationship Specialty Start [place] [address] [place] [address], [place] [address] PCP - General Family Medicine 12/12/21 Process Description Writer Relationship Specialty Start Date End Date Thomas Salinas MD [address] [place] [address], [place] [address] PCP - General Family Medicine 12/12/21 Process Description Writer Relationship Specialty Start Date End Date Thomas Salinas MD [address] [place] [address] [place] [address] PCP - General Family Medicine 12/12/21 Process Description Writer Relationship Specialty Start Date End Date Thomas Salinas MD [address] [place] [address], [place] [address] PCP - General Family Medicine 12/12/21 Process Description Writer Relationship Specialty Start Date End Date Thomas Salinas MD [address] [place] [address], [place] [address] PCP - General Family Medicine 12/12/21 Process Description Writer Relationship Specialty [place] [address] [place] [address], [place] [address] PCP - General Family Medicine 12/12/21 Process Description Writer Relationship Specialty Start Date End Date Thomas Salinas MD [address] [place] [address], [place] [address] PCP - General Family Medicine 12/12/21 Process Description Writer Relationship Specialty Start Date End Date Thomas Salinas MD [address] [place] [address] PCP - General Family Medicine 12/12/21 Process Description Writer Relationship Specialty Start Date End Date Thomas Salinas MD [address] [place] [address] PCP - General Family Medicine 12/12/21 Process Description Writer Relationship Specialty Start Date End Date Thomas Salinas MD [address] [place] [address] PCP - General Family Medicine 12/12/21 Process Description Writer Relationship Specialty Start Date End Date Thomas Salinas MD [address] [place] [address] PCP - General Family Medicine 12/12/21 Process Description Writer Relationship Specialty Start Date End Date Thomas Salinas MD [address] [place] [address] PCP - General Family Medicine 12/12/21 Team Status: Active Member Role Status Dates Yana Ballard BIOCHEMICAL ENGINEER, BIOCHEMICAL ENGINEER-C Primary Care Provider Active Team Status: Inactive Member Role Status Dates Yana Ballard BIOCHEMICAL ENGINEER, BIOCHEMICAL ENGINEER-C Primary Care Provider Active Dr. Isabel Marino MD Attending Provider, Referr ing Provider Active Process Description Writer Relationship Specialty Start Date End Date Thomas Salinas MD [address] [place] [address] PCP - General Family Medicine 12/12/21 Process Description Writer Relationship Specialty Start Date End Date Thomas Salinas MD [address] [place] [address] PCP - General Family Medicine 12/12/21 Process Description Writer Relationship Specialty Start Date End Date Thomas Salinas MD [address] [place] [address] PCP - General Family Medicine 12/12/21 Process Description Writer Relationship Specialty Start Date End Date Thomas Salinas MD [address] [place] [address] PCP - General Family Medicine 12/12/21 Process Description Writer Relationship Specialty Start Date End Date Thomas Salinas MD [address] [place] [address] PCP - General Family Medicine 12/12/21 Process Description Writer Relationship Specialty Start Date End Date Thomas Salinas MD [address] [place] [address] PCP - General Family Medicine 12/12/21 Team Status: Active Member Role Status Dates Dr. Thomas Salinas MD Primary Care Provider Acti ve Team Status: Inactive Member Role Status Dates Dr. Royce Chapin DO Attending Provider Active Start: April 01, 2024 End: April 01, 2024 Dr. Royce Chapin DO Emergency Provider Active Start: April 01, 2024 End: April 01, 2024 Dr. Thomas Salinas MD Primary Care Provider Acti ve Start: April 01, 2024 End: April 01, 2024 Team Status: Inactive Member Role Status Dates Dr. Thomas Salinas MD Primary Care Provider Acti ve Start: April 03, 2024 End: April 03, 2024 Dr. Isabel Marino MD Attending Provider Active Start: April 03, 2024 End: April 03, 2024 Dr. Isabel Marino MD Referring Provider Active Start: April 03, 2024 End: April 03, 2024 Team Status: Inactive Member Role Status Dates Dr. Thomas Salinas MD Primary Care Provider Acti ve Start: April 06, 2024 End: April 06, 2024 Dr. Isabel Marino MD Attending Provider Active Start: April 06, 2024 End: April 06, 2024 Dr. Isabel Marino MD Referring Provider Active Start: April 06, 2024 End: April 06, 2024 Team Status: Inactive Member Role Status Dates Dr. Thomas Salinas MD Primary Care Provider Acti ve Start: April 14, 2024 End: April 14, 2024 Dr. Thomas Salinas MD Referring Provider Active Start: April 14, 2024 End: April 14, 2024 Barbie Mitchell BIOCHEMICAL ENGINEER, BIOCHEMICAL ENGINEER-C Attending Provider Active Start: April 14, 2024 End: April 14, 2024 Team Status: Inactive Member Role Status Dates Dr. Thomas Salinas MD Primary Care Provider Acti ve Start: April 14, 2024 End: April 14, 2024 Barbie Mitchell BIOCHEMICAL ENGINEER, BIOCHEMICAL ENGINEER-C Attending Provider Active Start: April 14, 2024 End: April 14, 2024 Barbie Mitchell BIOCHEMICAL ENGINEER, BIOCHEMICAL ENGINEER-C Referring Provider Active Start: April 14, 2024 End: April 14, 2024 Team Status: Inactive Member Role Status Dates Dr. Thomas Salinas MD Primary Care Provider Acti ve Start: June 16, 2024 End: June 16, 2024 Dr. Maryann Bajwa , DO Attending Provider Activ e Start: June 16, 2024 End: June 16, 2024 Dr. Maryann Bajwa DO Referring Provider Activ e Start: June 16, 2024 End: June 16, 2024 Team Status: Active Member Role Status Dates Dr. Thomas Salinas MD Primary Care Provider Acti ve Start: June 18, 2024 Dr. Maryann Bajwa DO Attending Provider Activ e Start: June 18, 2024 Dr. Maryann Bajwa DO Referring Provider Activ e Start: June 18, 2024 Team Status: Active Member Role Status Dates Dr. Thomas Salinas MD Primary Care Provider Acti ve Start: June 25, 2024 Dr. Maryann Bajwa DO Attending Provider Activ e Start: June 25, 2024 Dr. Maryann Bajwa DO Referring Provider Activ e Start: June 25, 2024 Team Status: Inactive Member Role Status Dates Dr. Thomas Salinas MD Primary Care Provider Acti ve Start: June 18, 2024 End: June 18, 2024 Dr. Maryann Bajwa DO Attending Provider Activ e Start: June 18, 2024 End: June 18, 2024 Dr. Maryann Bajwa DO Referring Provider Activ e Start: June 18, 2024 End: June 18, 2024 Team Status: Active Member Role Status Dates Dr. Thomas Salinas MD Primary Care Provider Acti ve Start: June 27, 2024 Dr. Maryann Bajwa DO Attending Provider Activ e Start: June 27, 2024 Dr. Maryann Bajwa DO Referring Provider Activ e Start: June 27, 2024 Team Status: Inactive Member Role Status Dates Dr. Thomas Salinas MD Primary Care Provider Acti ve Start: June 25, 2024 End: June 25, 2024 Dr. Maryann Bajwa DO Attending Provider Activ e Start: June 25, 2024 End: June 25, 2024 Dr. Maryann Bajwa DO Referring Provider Activ e Start: June 25, 2024 End: June 25, 2024 Team Status: Active Member Role Status Dates Dr. Thomas Salinas MD Primary Care Provider Acti ve Start: July 02, 2024 Dr. Maryann Bajwa DO Attending Provider Activ e Start: July 02, 2024 Dr. Maryann Bajwa DO Referring Provider Activ e Start: July 02, 2024 Team Status: Active Member Role Status Dates Dr. Thomas Salinas MD Primary Care Provider Acti ve Start: July 03, 2024 Renay Larose RN Attending Provider Active St art: July 03, 2024 Team Status: Inactive Member Role Status Dates Dr. Thomas Salinas MD Primary Care Provider Acti ve Start: June 27, 2024 End: June 27, 2024 Dr. Maryann Bajwa DO Attending Provider Activ e Start: June 27, 2024 End: June 27, 2024 Dr. Maryann Bajwa DO Referring Provider Activ e Start: June 27, 2024 End: June 27, 2024 Team Status: Inactive Member Role Status Dates Dr. Thomas Salinas MD Primary Care Provider Acti ve Start: July 02, 2024 End: July 02, 2024 Dr. Maryann Bajwa DO Attending Provider Activ e Start: July 02, 2024 End: July 02, 2024 Dr. Maryann Bajwa DO Referring Provider Activ e Start: July 02, 2024 End: July 02, 2024 Team Status: Inactive Member Role Status Dates Dr. Thomas Salinas MD Primary Care Provider Acti ve Start: July 20, 2024 End: July 20, 2024 Dr. Thomas Salnias MD Referring Provider Active Start: July 20, 2024 End: July 20, 2024 Dr. Maryann Bajwa DO Attending Provider Activ e Start: July 20, 2024 End: July 20, 2024 Team Status: Inactive Member Role Status Dates Dr. Thomas Salinas MD Primary Care Provider Acti ve Start: July 20, 2024 End: July 20, 2024 Dr. Maryann Bajwa DO Attending Provider Activ e Start: July 20, 2024 End: July 20, 2024 Team Status: Inactive Member Role Status Dates Dr. Thomas Salinas MD Primary Care Provider Acti ve Start: July 31, 2024 End: July 31, 2024 Dr. Maryann Bajwa DO Attending Provider Activ e Start: July 31, 2024 End: July 31, 2024 Dr. Maryann Bajwa DO Referring Provider Activ e Start: July 31, 2024 End: July 31, 2024 Team Status: Inactive Member Role Status Dates Dr. Thomas Salinas MD Primary Care Provider Acti ve Start: August 05, 2024 End: August 05, 2024 Dr. Thomas Salinas MD Referring Provider Active Start: August 05, 2024 End: August 05, 2024 Barbie Mitchell NP, BIOCHEMICAL ENGINEER-C Attending Provider Active Start: August 05, 2024 End: August 05, 2024 Team Status: Inactive Member Role Status Dates Dr. Thomas Salinas MD Primary Care Provider Acti ve Start: August 17, 2024 End: August 17, 2024 Dr. Thomas Salinas MD Referring Provider Active Start: August 17, 2024 End: August 17, 2024 Barbie Mitchell NP, BIOCHEMICAL ENGINEER-C Attending Provider Active Start: August 17, 2024 End: August 17, 2024 Team Status: Inactive Member Role Status Dates Dr. Thomas Salinas MD Primary Care Provider Acti ve Start: September 14, 2024 End: September 14, 2024 Dr. Thomas Salinas MD Referring Provider Active Start: September 14, 2024 End: September 14, 2024 Ximena Mcghee CNM Attending Provider Active S tart: September 14, 2024 End: September 14, 2024 Team Status: Active Member Role/Relationship Status Dates Dr. Thomas Salinas MD Primary Care Provider Acti ve Team Status: Inactive Member Role/Relationship Status Dates Dr. Thomas Salinas MD Primary Care Provider Acti ve Start: June 16, 2024 End: June 16, 2024 Dr. Maryann Bajwa DO Attending Provider Activ e Start: June 16, 2024 End: June 16, 2024 Dr. Maryann Bajwa DO Referring Provider Activ e Start: June 16, 2024 End: June 16, 2024 Team Status: Inactive Member Role/Relationship Status Dates Dr. Thomas Salinas MD Primary Care Provider Acti ve Start: June 18, 2024 End: June 18, 2024 Dr. Maryann Bajwa DO Attending Provider Activ e Start: June 18, 2024 End: June 18, 2024 Dr. Maryann Bajwa DO Referring Provider Activ e Start: June 18, 2024 End: June 18, 2024 Team Status: Inactive Member Role/Relationship Status Dates Dr. Thomas Salinas MD Primary Care Provider Acti ve Start: June 25, 2024 End: June 25, 2024 Dr. Maryann Bajwa DO Attending Provider Activ e Start: June 25, 2024 End: June 25, 2024 Dr. Maryann Bajwa DO Referring Provider Activ e Start: June 25, 2024 End: June 25, 2024 Team Status: Inactive Member Role/Relationship Status Dates Dr. Thomas Salinas MD Primary Care Provider Acti ve Start: June 25, 2024 End: June 25, 2024 Dr. Maryann Bajwa DO Attending Provider Activ e Start: June 25, 2024 End: June 25, 2024 Dr. Maryann Bajwa DO Referring Provider Activ e Start: June 25, 2024 End: June 25, 2024 Team Status: Inactive Member Role/Relationship Status Dates Dr. Thomas Salinas MD Primary Care Provider Acti ve Start: June 27, 2024 End: June 27, 2024 Dr. Maryann Bajwa DO Attending Provider Activ e Start: June 27, 2024 End: June 27, 2024 Dr. Maryann Bajwa DO Referring Provider Activ e Start: June 27, 2024 End: June 27, 2024 Team Status: Inactive Member Role/Relationship Status Dates Dr. Thomas Salinas MD Primary Care Provider Acti ve Start: July 02, 2024 End: July 02, 2024 Dr. Maryann Bajwa DO Attending Provider Activ e Start: July 02, 2024 End: July 02, 2024 Dr. Maryann Bajwa DO Referring Provider Activ e Start: July 02, 2024 End: July 02, 2024 Team Status: Active Member Role/Relationship Status Dates Dr. Tohmas Salinas MD Primary Care Provider Acti ve Start: July 03, 2024 Renay Larose RN Attending Provider Active St art: July 03, 2024 Team Status: Inactive Member Role/Relationship Status Dates Dr. Thomas Salinas MD Primary Care Provider Acti ve Start: July 20, 2024 End: July 20, 2024 Dr. Thomas Salinas MD Referring Provider Active Start: July 20, 2024 End: July 20, 2024 Dr. Maryann Bajwa DO Attending Provider Activ e Start: July 20, 2024 End: July 20, 2024 Team Status: Inactive Member Role/Relationship Status Dates Dr. Thomas Salinas MD Primary Care Provider Acti ve Start: July 20, 2024 End: July 20, 2024 Dr. Maryann Bajwa DO Attending Provider Activ e Start: July 20, 2024 End: July 20, 2024 Team Status: Inactive Member Role/Relationship Status Dates Dr. Thomas Salinas MD Primary Care Provider Acti ve Start: July 31, 2024 End: July 31, 2024 Dr. Maryann Bajwa DO Attending Provider Activ e Start: July 31, 2024 End: July 31, 2024 Dr. Maryann Bajwa DO Referring Provider Activ e Start: July 31, 2024 End: July 31, 2024 Team Status: Inactive Member Role/Relationship Status Dates Dr. Thomas Salinas MD Primary Care Provider Acti ve Start: August 05, 2024 End: August 05, 2024 Dr. Thomas Salinas MD Referring Provider Active Start: August 05, 2024 End: August 05, 2024 Barbie Mitchell BIOCHEMICAL ENGINEER, BIOCHEMICAL ENGINEER-C Attending Provider Active Start: August 05, 2024 End: August 05, 2024 Team Status: Inactive Member Role/Relationship Status Dates Dr. Thomas Salinas MD Primary Care Provider Acti ve Start: August 17, 2024 End: August 17, 2024 Dr. Thomas Salinas MD Referring Provider Active Start: August 17, 2024 End: August 17, 2024 Barbie Mitchell BIOCHEMICAL ENGINEER, BIOCHEMICAL ENGINEER-C Attending Provider Active Start: August 17, 2024 End: August 17, 2024 Team Status: Inactive Member Role/Relationship Status Dates Dr. Thomas Salinas MD Primary Care Provider Acti ve Start: September 14, 2024 End: September 14, 2024 Dr. Thomas Salinas MD Referring Provider Active Start: September 14, 2024 End: September 14, 2024 Ximena Mcghee CNM Attending Provider Active S tart: September 14, 2024 End: September 14, 2024 Team Status: Inactive Member Role/Relationship Status Dates Dr. Thomas Salinas MD Primary Care Provider Acti ve Start: October 08, 2024 End: October 08, 2024 Dr. Isabel Marino MD Attending Provider Active Start: October 08, 2024 End: October 08, 2024 Dr. Isabel Marino MD Referring Provider Active Start: October 08, 2024 End: October 08, 2024 Team Status: Inactive Member Role/Relationship Status Dates Dr. Thomas Salinas MD Primary Care Provider Acti ve Start: October 12, 2024 End: October 12, 2024 Dr. Thomas Salinas MD Referring Provider Active Start: October 12, 2024 End: October 12, 2024 Dr. Isabel Marino MD Attending Provider Active Start: October 12, 2024 End: October 12, 2024 Team Status: Inactive Member Role/Relationship Status Dates Dr. Thomas Salinas MD Primary Care Provider Acti ve Start: July 20, 2024 End: July 20, 2024 Dr. Thomas Salinas MD Referring Provider Active Start: July 20, 2024 End: July 20, 2024 Dr. Maryann Bajwa DO Attending Provider Activ e Start: July 20, 2024 End: July 20, 2024 Team Status: Inactive Member Role/Relationship Status Dates Dr. Thomas Salinas MD Primary Care Provider Acti ve Start: July 20, 2024 End: July 20, 2024 Dr. Maryann Bajwa DO Attending Provider Activ e Start: July 20, 2024 End: July 20, 2024 Team Status: Inactive Member Role/Relationship Status Dates Dr. Thomas Salinas MD Primary Care Provider Acti ve Start: July 31, 2024 End: July 31, 2024 Dr. Maryann Bajwa DO Attending Provider Activ e Start: July 31, 2024 End: July 31, 2024 Dr. Maryann Bajwa DO Referring Provider Activ e Start: July 31, 2024 End: July 31, 2024 Team Status: Inactive Member Role/Relationship Status Dates Dr. Thomas Salinas MD Primary Care Provider Acti ve Start: August 05, 2024 End: August 05, 2024 Dr. Thomas Salinas MD Referring Provider Active Start: August 05, 2024 End: August 05, 2024 Barbie Mitchell NP, BIOCHEMICAL ENGINEER-C Attending Provider Active Start: August 05, 2024 End: August 05, 2024 Team Status: Inactive Member Role/Relationship Status Dates Dr. Thomas Salinas MD Primary Care Provider Acti ve Start: August 17, 2024 End: August 17, 2024 Dr. Thomas Salinas MD Referring Provider Active Start: August 17, 2024 End: August 17, 2024 Barbie Mitchell NP, BIOCHEMICAL ENGINEER-C Attending Provider Active Start: August 17, 2024 End: August 17, 2024 Team Status: Inactive Member Role/Relationship Status Dates Dr. Thomas Salinas MD Primary Care Provider Acti ve Start: September 14, 2024 End: September 14, 2024 Dr. Thomas Salinas MD Referring Provider Active Start: September 14, 2024 End: September 14, 2024 Ximena Mcghee CNM Attending Provider Active S tart: September 14, 2024 End: September 14, 2024 Team Status: Inactive Member Role/Relationship Status Dates Dr. Thomas Salinas MD Primary Care Provider Acti ve Start: October 08, 2024 End: October 08, 2024 Dr. Isabel Marino MD Attending Provider Active Start: October 08, 2024 End: October 08, 2024 Dr. Isabel Marino MD Referring Provider Active Start: October 08, 2024 End: October 08, 2024 Team Status: Inactive Member Role/Relationship Status Dates Dr. Thomas Salinas MD Primary Care Provider Acti ve Start: October 12, 2024 End: October 12, 2024 Dr. Thomas Salinas MD Referring Provider Active Start: October 12, 2024 End: October 12, 2024 Dr. Isabel Marino MD Attending Provider Active Start: October 12, 2024 End: October 12, 2024 Team Status: Inactive Member Role/Relationship Status Dates Dr. Thomas Salinas MD Primary Care Provider Acti ve Start: November 09, 2024 End: November 09, 2024 Dr. Thomas Salinas MD Referring Provider Active Start: November 09, 2024 End: November 09, 2024 Ximena Mcghee CNM Attending Provider Active S tart: November 09, 2024 End: November 09, 2024 Team Status: Inactive Member Role/Relationship Status Dates Dr. Thomas Salinas MD Primary Care Provider Acti ve Start: August 05, 2024 End: August 05, 2024 Dr. Thomas Salinas MD Referring Provider Active Start: August 05, 2024 End: August 05, 2024 Barbie Mitchell BIOCHEMICAL ENGINEER, BIOCHEMICAL ENGINEER-C Attending Provider Active Start: August 05, 2024 End: August 05, 2024 Team Status: Inactive Member Role/Relationship Status Dates Dr. Thomas Salinas MD Primary Care Provider Acti ve Start: August 17, 2024 End: August 17, 2024 Dr. Thomas Salinas MD Referring Provider Active Start: August 17, 2024 End: August 17, 2024 Barbie Mitchell BIOCHEMICAL ENGINEER, BIOCHEMICAL ENGINEER-C Attending Provider Active Start: August 17, 2024 End: August 17, 2024 Team Status: Inactive Member Role/Relationship Status Dates Dr. Thomas Salinas MD Primary Care Provider Acti ve Start: September 14, 2024 End: September 14, 2024 Dr. Thomas Salinas MD Referring Provider Active Start: September 14, 2024 End: September 14, 2024 Ximena Mcghee CNM Attending Provider Active S tart: September 14, 2024 End: September 14, 2024 Team Status: Inactive Member Role/Relationship Status Dates Dr. Thomas Salinas MD Primary Care Provider Acti ve Start: October 08, 2024 End: October 08, 2024 Dr. Isabel Marino MD Attending Provider Active Start: October 08, 2024 End: October 08, 2024 Dr. Isabel Marino MD Referring Provider Active Start: October 08, 2024 End: October 08, 2024 Team Status: Inactive Member Role/Relationship Status Dates Dr. Thomas Salinas MD Primary Care Provider Acti ve Start: October 12, 2024 End: October 12, 2024 Dr. Thomas Salinas MD Referring Provider Active Start: October 12, 2024 End: October 12, 2024 Dr. Isabel Marino MD Attending Provider Active Start: October 12, 2024 End: October 12, 2024 Team Status: Inactive Member Role/Relationship Status Dates Dr. Thomas Salinas MD Primary Care Provider Acti ve Start: November 09, 2024 End: November 09, 2024 Dr. Thomas Salinas MD Referring Provider Active Start: November 09, 2024 End: November 09, 2024 Ximena Mcghee CNM Attending Provider Active S tart: November 09, 2024 End: November 09, 2024 Team Status: Inactive Member Role/Relationship Status Dates Dr. Thomas Salinas MD Primary Care Provider Acti ve Start: December 01, 2024 End: December 01, 2024 Dr. Thomas Salinas MD Referring Provider Active Start: December 01, 2024 End: December 01, 2024 Barbie Mitchell BIOCHEMICAL ENGINEER, BIOCHEMICAL ENGINEER-C Attending Provider Active Start: December 01, 2024 End: December 01, 2024 Team Status: Active Member Role/Relationship Status Dates Dr. Thomas Salinas MD Primary Care Provider Acti ve Start: December 01, 2024 Ximena Mcghee CNM Attending Provider Active S tart: December 01, 2024 Ximena Mcghee CNM Referring Provider Active S tart: December 01, 2024 Team Status: Inactive Member Role/Relationship Status Dates Dr. Thomas Salinas MD Primary Care Provider Acti ve Start: August 17, 2024 End: August 17, 2024 Dr. Thomas Salinas MD Referring Provider Active Start: August 17, 2024 End: August 17, 2024 Barbie Mitchell BIOCHEMICAL ENGINEER, BIOCHEMICAL ENGINEER-C Attending Provider Active Start: August 17, 2024 End: August 17, 2024 Team Status: Inactive Member Role/Relationship Status Dates Dr. Thomas Salinas MD Primary Care Provider Acti ve Start: September 14, 2024 End: September 14, 2024 Dr. Thomas Salinas MD Referring Provider Active Start: September 14, 2024 End: September 14, 2024 Ximena Mcghee CNM Attending Provider Active S tart: September 14, 2024 End: September 14, 2024 Team Status: Inactive Member Role/Relationship Status Dates Dr. Thomas Salinas MD Primary Care Provider Acti ve Start: October 08, 2024 End: October 08, 2024 Dr. Isabel Marino MD Attending Provider Active Start: October 08, 2024 End: October 08, 2024 Dr. Isabel Marino MD Referring Provider Active Start: October 08, 2024 End: October 08, 2024 Team Status: Inactive Member Role/Relationship Status Dates Dr. Thomas Salinas MD Primary Care Provider Acti ve Start: October 12, 2024 End: October 12, 2024 Dr. Thomas Salinas MD Referring Provider Active Start: October 12, 2024 End: October 12, 2024 Dr. Isabel Marino MD Attending Provider Active Start: October 12, 2024 End: October 12, 2024 Team Status: Inactive Member Role/Relationship Status Dates Dr. Thomas Salinas MD Primary Care Provider Acti ve Start: November 09, 2024 End: November 09, 2024 Dr. Thomas Salinas MD Referring Provider Active Start: November 09, 2024 End: November 09, 2024 Ximena Mcghee CNM Attending Provider Active S tart: November 09, 2024 End: November 09, 2024 Team Status: Inactive Member Role/Relationship Status Dates Dr. Thomas Salinas MD Primary Care Provider Acti ve Start: December 01, 2024 End: December 01, 2024 Dr. Thomas Salinas MD Referring Provider Active Start: December 01, 2024 End: December 01, 2024 Barbie Mitchell BIOCHEMICAL ENGINEER, BIOCHEMICAL ENGINEER-C Attending Provider Active Start: December 01, 2024 End: December 01, 2024 Team Status: Inactive Member Role/Relationship Status Dates Dr. Thomas Salinas MD Primary Care Provider Acti ve Start: December 01, 2024 End: December 01, 2024 Ximena Mcghee CNM Attending Provider Active S tart: December 01, 2024 End: December 01, 2024 Ximena Mcghee CNM Referring Provider Active S tart: December 01, 2024 End: December 01, 2024 Team Status: Inactive Member Role/Relationship Status Dates Dr. Thomas Salinas MD Primary Care Provider Acti ve Start: December 15, 2024 End: December 15, 2024 Dr. Thomas Salinas MD Referring Provider Active Start: December 15, 2024 End: December 15, 2024 Dr. Maryann Bajwa DO Attending Provider Activ e Start: December 15, 2024 End: December 15, 2024 Team Status: Inactive Member Role/Relationship Status Dates Dr. Thomas Salinas MD Primary Care Provider Acti ve Start: September 14, 2024 End: September 14, 2024 Dr. Thomas Salinas MD Referring Provider Active Start: September 14, 2024 End: September 14, 2024 Ximena Mcghee CNM Attending Provider Active S tart: September 14, 2024 End: September 14, 2024 Team Status: Inactive Member Role/Relationship Status Dates Dr. Thomas Salinas MD Primary Care Provider Acti ve Start: October 08, 2024 End: October 08, 2024 Dr. Isabel Marino MD Attending Provider Active Start: October 08, 2024 End: October 08, 2024 Dr. Isabel Marino MD Referring Provider Active Start: October 08, 2024 End: October 08, 2024 Team Status: Inactive Member Role/Relationship Status Dates Dr. Thomas Salinas MD Primary Care Provider Acti ve Start: October 12, 2024 End: October 12, 2024 Dr. Thomas Salinas MD Referring Provider Active Start: October 12, 2024 End: October 12, 2024 Dr. Isabel Marino MD Attending Provider Active Start: October 12, 2024 End: October 12, 2024 Team Status: Inactive Member Role/Relationship Status Dates Dr. Thomas Salinas MD Primary Care Provider Acti ve Start: November 09, 2024 End: November 09, 2024 Dr. Thomas Salinas MD Referring Provider Active Start: November 09, 2024 End: November 09, 2024 Ximena Mcghee CNM Attending Provider Active S tart: November 09, 2024 End: November 09, 2024 Team Status: Inactive Member Role/Relationship Status Dates Dr. Thomas Salinas MD Primary Care Provider Acti ve Start: December 01, 2024 End: December 01, 2024 Dr. Thomas Salinas MD Referring Provider Active Start: December 01, 2024 End: December 01, 2024 Barbie Mitchell NP, BIOCHEMICAL ENGINEER-C Attending Provider Active Start: December 01, 2024 End: December 01, 2024 Team Status: Inactive Member Role/Relationship Status Dates Dr. Thomas Salinas MD Primary Care Provider Acti ve Start: December 01, 2024 End: December 01, 2024 Ximena Mcghee CNM Attending Provider Active S tart: December 01, 2024 End: December 01, 2024 Ximena Mcghee CNM Referring Provider Active S tart: December 01, 2024 End: December 01, 2024 Team Status: Inactive Member Role/Relationship Status Dates Dr. Thomas Salinas MD Primary Care Provider Acti ve Start: December 15, 2024 End: December 15, 2024 Dr. Thomas Salinas MD Referring Provider Active Start: December 15, 2024 End: December 15, 2024 Dr. Maryann Bajwa DO Attending Provider Activ e Start: December 15, 2024 End: December 15, 2024 Team Status: Inactive Member Role/Relationship Status Dates Dr. Thomas Salinas MD Primary Care Provider Acti ve Start: December 28, 2024 End: December 28, 2024 Dr. Thomas Salinas MD Referring Provider Active Start: December 28, 2024 End: December 28, 2024 Barbie Mitchell BIOCHEMICAL ENGINEER, BIOCHEMICAL ENGINEER-C Attending Provider Active Start: December 28, 2024 End: December 28, 2024 Team Status: Active Member Role/Relationship Status Dates Dr. Thomas Salinas MD Primary care physician Act tong Team Status: Inactive Member Role/Relationship Status Dates Dr. Thomas Salinas MD Primary care physician Act tong Start: October 08, 2024 End: October 08, 2024 Dr. Isabel Marino MD Attending physician Active Start: October 08, 2024 End: October 08, 2024 Dr. Isabel Marino MD Referring Provider Active Start: October 08, 2024 End: October 08, 2024 Team Status: Inactive Member Role/Relationship Status Dates Dr. Thomas Salinas MD Primary care physician Act tong Start: October 12, 2024 End: October 12, 2024 Dr. Thomas Salinas MD Referring Provider Active Start: October 12, 2024 End: October 12, 2024 Dr. Isabel Marino MD Attending physician Active Start: October 12, 2024 End: October 12, 2024 Team Status: Inactive Member Role/Relationship Status Dates Dr. Thomas Salinas MD Primary care physician Act tong Start: November 09, 2024 End: November 09, 2024 Dr. Thomas Salinas MD Referring Provider Active Start: November 09, 2024 End: November 09, 2024 Ximena Mcghee CNM Attending physician Active Start: November 09, 2024 End: November 09, 2024 Team Status: Inactive Member Role/Relationship Status Dates Dr. Thomas Salinas MD Primary care physician Act tong Start: December 01, 2024 End: December 01, 2024 Dr. Thomas Salinas MD Referring Provider Active Start: December 01, 2024 End: December 01, 2024 Barbie Mitchell NP BIOCHEMICAL ENGINEER-C Attending physician Active Start: December 01, 2024 End: December 01, 2024 Team Status: Inactive Member Role/Relationship Status Dates Dr. Thomas Salinas MD Primary care physician Act tong Start: December 01, 2024 End: December 01, 2024 Ximena Mcghee CNM Attending physician Active Start: December 01, 2024 End: December 01, 2024 Ximena Mcghee CNM Referring Provider Active S tart: December 01, 2024 End: December 01, 2024 Team Status: Inactive Member Role/Relationship Status Dates Dr. Thomas Salinas MD Primary care physician Act tong Start: December 15, 2024 End: December 15, 2024 Dr. Thomas Salinas MD Referring Provider Active Start: December 15, 2024 End: December 15, 2024 Dr. Maryann Bajwa DO Attending physician Acti ve Start: December 15, 2024 End: December 15, 2024 Team Status: Inactive Member Role/Relationship Status Dates Dr. Thomas Salinas MD Primary care physician Act tong Start: December 28, 2024 End: December 28, 2024 Dr. Thomas Salinas MD Referring Provider Active Start: December 28, 2024 End: December 28, 2024 Barbie Mitchell NP BIOCHEMICAL ENGINEER-C Attending physician Active Start: December 28, 2024 End: December 28, 2024 Team Status: Inactive Member Role/Relationship Status Dates Dr. Thomas Salinas MD Primary care physician Act tong Start: January 11, 2025 End: January 11, 2025 Dr. Thomas Salinas MD Referring Provider Active Start: January 11, 2025 End: January 11, 2025 Ximena Mcghee CNM Attending physician Active Start: January 11, 2025 End: January 11, 2025 Goals (unrecognized section and content) Type Care Experience - IOL 08/10Labor Preferences-CB/BF classes: scheduled 06/04labor support person: Johnlabor intervention preferences: open to standard interventionspain management options preferred: desires natural labor but open to epiduralcut cord/dad catch: bothbreastfeeding: yesPP control planned: []discussed possible routes of delivery and associated risks: discussed possible delivery modalities and possible indications for each including R/B/A of , VAVD, FAVD, and CS. questions answered.special requests: [] Care Experience Labor Preferences-CB /BF classes: nolabor support person: Johnlabor intervention preferences: []pain management options preferred: epiduralcut cord/dad catch: cordbreastfeeding: yesPP control planned: discusseddiscussed possible routes of delivery and associated risks: []special requests: [] Goals may be documented in an alternate section FOR RECORDS PERTAINING TO PATIENTS WHO ARE OR HAVE BEEN ENROLLED IN A CHEMICAL DEPENDENCY/SUBSTANCEABUSE PROGRAM, SOME INFORMATION MAY BE OMITTED. This clinical summary was aggregated from multiple sources. Caution should be exercised in using it in the provision of clinical care. This summary normalizes information from multiple sources, and as a consequence, information in this document may materially change the coding, format and clinical context of patient data. In addition, data may be omitted in some cases. CLINICAL DECISIONS SHOULD BE BASED ON THE PRIMARY CLINICAL RECORDS. [employer] provides no warranty or guarantee of the accuracy or completeness of information in this document.
--- OUTSIDE RECORDS SUMMARY | 2025-02-01 18:00 | XMS RPT_ITS | CCD ---
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 Royce Chapin DO Attending Provider Dr. Royce Chapin DO Emergency Provider [phone] Brad WHITAKER, Dr. Machado Primary Care Provider Jamila WHITAKER, Dr. Hall Attending Provider Jamila WHITAKER, Dr. Hall Referring Provider [phone] Brad WHITAKER, Dr. Machado Referring Provider [place] DIRECTOR OF CONSTRUCTION-C, Barbie Attending Provider [place] DIRECTOR OF CONSTRUCTION-C, Barbie Referring Provider [phone] Judy Worthington DO, Dr. Wolf Attending Provider Judy Worthington DO, Dr. Wolf Referring Provider Thuan RN, Renay Attending Provider [facility] ioana Salinas MD, Dr. Machado Primary Care Provider Brad WHITAKER, Dr. Machado Referring Provider [phone] Paula DIRECTOR OF CONSTRUCTION-C, Barbie Attending Provider [phone] Juan ARRIAGA, Ximena Attending Provider [phone] THOMAS SALINAS F Primary Care [facility] VY MICHAUD Attending Unavailable XIMENA MCGHEE S Referring Unavailable Jamila WHITAKER, Dr. Hall Attending Provider Jamila WHITAKER, Dr. Hall Referring Provider [phone] Brad WHITAKER, Dr. Machado Primary Care Provider Judy Worthington DO, Dr. Wolf Attending Provider Judy Worthington DO, Dr. Wolf Referring Provider Brad WHITAKER, Dr. Machado Primary Care Provider Brad WHITAKER, Dr. Machado Referring Provider [phone] Ximena Mcghee CNM Referring Provider [phone] Brad WHITAKER, Dr. Machado Primary Care Provider Brad WHITAKER, Dr. Machado Referring Provider [phone] Paula DIRECTOR OF CONSTRUCTION-C, Barbie Attending Provider [phone] Judy Worthington DO, Dr. Wolf Attending Provider Brad WHITAKER, Dr. Machado Primary Care Provider Brad WHITAKER, Dr. Machado Referring Provider Paula DIRECTOR OF CONSTRUCTION-CBarbie Attending Provider [phone] Brad WHITAKER, Dr. Machado Primary Care Physicia n Jamila HWITAKER, Dr. Hall Attending Physician Brad WHITAKER, Dr. Machado Referring Provider [phone] Ximena Mcghee CNM Attending Physician [phone] Paula DIRECTOR OF CONSTRUCTION-CBarbie Attending Physician [phone] Maryann Bajwa [...] Unavailable Grabenstetter, Thomas Primary Care Unavailable Paula DIRECTOR OF CONSTRUCTIONBarbie Attending Unavailable Grabenstetter, Thomas Primary Care Unavailable Grabenstetter, Thomas Referring Unavailable Grabenstetter, Thomas Primary Care Unavailable Ximena Mcghee Attending Unavailable Grabenstetter, Thomas Referring Unavailable VandMaryann Uribe Attending Unavailabl e Vande VeldeMaryann Referring Unavailabl e Grabenstetter, Thomas Primary Care Unavailable Vande Maryann Worthington Attending Unavailabl e Vande VeldeMaryann Referring Unavailabl e Grabenstetter, Thomas Primary Care Unavailable [place] DIRECTOR OF CONSTRUCTIONBarbie Referring Unavailable [place] DIRECTOR OF CONSTRUCTION, Barbie Attending Unavailable Grabenstetter, Thomas Primary Care Unavailable Ximena Mcghee Attending Unavailable Ximena Mcghee Referring Unavailable Grabenstetter, Thomas Primary Care Unavailable Paula DIRECTOR OF CONSTRUCTION, Barbie Attending Unavailable Grabenstetter, Thomas Primary Care Unavailable Grabenstetter, Thomas Referring Unavailable Paula DIRECTOR OF CONSTRUCTION, Barbie Attending Unavailable Grabenstetter, Thomas Referring Unavailable [...] Unavailable Grabenstetter, Thomas Primary Care Unavailable Paula DIRECTOR OF CONSTRUCTION, Barbie Attending Unavailable Grabenstetter, Thomas Referring Unavailable Grabenstetter, Thomas Primary Care Unavailable Isabel Marino Attending Unavailable Grabenstetter, Thomas Referring Unavailable Grabenstetter, Thomas Primary Care Unavailable Ximena Mcghee Attending Unavailable Grabenstetter, Thomas Referring Unavailable Grabenstetter, Thomas Primary Care Unavailable Paula DIRECTOR OF CONSTRUCTION, Barbie Attending Unavailable Grabenstetter, Thomas Referring Unavailable Grabenstetter, Thomas Primary Care Unavailable Maryann Bajwa Attending Unavailabl e Vande VeldeMaryann Referring Unavailabl e Grabenstetter, Thomas Primary Care Unavailable Maryann Bajwa Attending Unavailabl e Grabenstetter, Thomas Primary Care Unavailable Allergies Allergy Classification Reported Allergen(s) Allergy Type Date of Onset Reaction(s) Facility (17 sources) Amoxicillin; Translations: [amoxicillin] Drug Allergy 4 Hives, Rash [facility] (20 sources) Shellfish; Translations: [shellfish] Drug allergy 3 Swelling, Shortness of Breath [facility] (9 sources) Penicillins; Translations: [PENICILLINS] Drug Intolerance 3 [facility] (20 sources) Penicillins Drug Intolerance 3 [facility] (20 sources) Vancomycin; Translations: [VANCOMYCIN] Drug Allergy 2 Itching [facility] (17 sources) Penicillins Allergy to substance 2 hives, breathing issues [facility] (18 sources) Shellfish; Translations: [shellfish derived] Allergy to substance 2 hives [facility] (1 source) Amoxicillin Drug Allergy 5 [facility] (1 source) Penicillins Drug allergy (disorder) 5 [facility] (1 source) Vancomycin Drug Allergy 5 [facility] Medications Current Medications Medication Drug Class(es) [...] 10/07/2021 11/15/2021 Discontinued Start: 09-13-2021 End: 09-19-2021 [place] 325 mg-5 mg oral table t 1 [...] Comment on above: Take 1 tablet by [facility] every 8 hours as needed for up [...] Comment on above: Take 1 capsule by [facility] twice daily. famotidine 20 mg oral tablet [...] on above: Take 1 capsule by [facility] daily at bedtime for 30 days. Take 1 capsule by mo [facility] three times daily for 30 days. Take [...] 2024 1:00am July 03, 2024 1:08pm levonorgestrel 0.253087 mg/hr intrauterine system (20 sources) Progestin, Progestin-containing [...] above: Take by mouth as nee ded. Ezgfjxjm-Yxn-Wt-Fa (1 source) Start: 2020 End: 2020 take 1 tablet by mouth once daily Vknnefee-Zou-Sw-Fa Discontinued 1 TABLET PO DAILY August 10, 2020 12:00am November 09, 2020 11:39am Nzcragmz-Spx-Sk-Fa 1 mg Tablet (16 sources) Start: 2020 End: 2020 take 1 tablet by mouth once daily Pnevqeto-Nvv-Wo-Fa 1 mg Tablet Discontinued 1 {tbl} PO DAILY August 10, 2020 12:00am November 09, 2020 11:39am Start: 08-10-2020 End: 11-09-2020 take 1 tablet by mouth once daily Tvlbfqsf-Kww-Nk-Fa 1 mg Tablet Discontinued 1 {tbl} PO [...] Test Name Value Interpretation Reference Range Facility Acute Care Nurse Practitioner Office Visit Reporton 01-26-2025 Acute Care Nurse Practitioner Office Visit Report [facility] [address], [address] [place] [address] OFFICE VISIT Date of Service: 01/26/25 MR#: [id number] Acct: [id number] Name: HANNAH HENDRICKS Rep #: [id number] : 1990 Provider: Dr. Isabel feldman MD Age/Sex: 34/F Location: [facility] Status: Signed Intake Vital Signs 12/01/24 08:19 01/11/25 09:59 01/26/25 09:21 Height 5 ft 6 in 5 ft 6 in 5 ft 6 in Weight: 213 lb 2 oz BMI 34.4 BP 112/74 Intake Visit Reasons: 36 WK OB Integration Director Required: No Is patient in pain?: No [...] 3-4 times per week duration: 15-30 minutes/day agata/sikh: Rastafari seatbelt use: always do you feel safe at home: Yes 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 Date Name GA/Weeks Outcome Route Bth Weight Infant Gen Labor Lgth Anesthesia Del Locatn Provider FOB 08/11/20 Janie 39 live - full term 7lbs 8.5oz Female epidural [facility] Dr. Quang Samaniego 03/15/24 4 spontaneous Delivery [...] ???-???-???-???-???-? ??-???- (more content not included)... Normal [facility] Acute Care Nurse Practitioner Office Visit Reporton 01-11-2025 Acute Care Nurse Practitioner Office Visit Report [facility] [address] [place] [address] OFFICE VISIT Date of Service: 01/11/25 MR#: [id number] Acct: [id number] Name: HANNAH HENDRICKS Rep #: [id number] : 1990 Provider: BART Kaur ams Age/Sex: 34/F Location: [facility] Status: Signed Intake Vital Signs 12/01/24 08:19 01/11/25 09:59 01/11/25 09:59 Height 5 ft 6 in 5 ft 6 in 5 ft 6 in Weight: 215 lb 5 oz BMI 34.7 BP 118/75 Intake Visit Reasons: 34 WK OB Integration Director Required: No Is patient in pain?: No [...] current occupational status: employed current occupation: [employer] current occupational exposures/hazards: No pets and animals: [...] 3-4 times per week duration: 15-30 minutes/day agata/sikh: Rastafari seatbelt use: always do you feel safe at home: Yes 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 Date Name GA/Weeks Outcome Route Bth Weight Infant Gen Labor Lgth Anesthesia Del Locatn Provider FOB 08/11/20 Janie 39 live - full term 7lbs 8.5oz Female epidural [facility] Dr. Quang Samaniego 03/15/24 4 spontaneous Delivery [...] ???-???-???-???-???-? ??-???- (more content not included)... Normal [facility] Laboratory - Chemistry and C hemistry - challengeOrdered By: Barbie Mitchell on 12-28-2024 Glucose Ql (U) Negative [facility] Laboratory - UrinalysisOrder ed By: Barbie Mitchell on 12-28-2024 Protein Ql (U) Trace [facility] Acute Care Nurse Practitioner Office Visit Reporton 12-28-2024 Acute Care Nurse Practitioner [facility], [address] [place] [address] OFFICE VISIT Date of Service: 12/28/24 MR#: [id number] Acct: [id number] Name: HANNAH HENDRICKS Rep #: [id number] : 1990 Provider: SHAWN wray Age/Sex: 34/F Location: [facility] Status: Signed Intake Vital Signs 11/09/24 08:55 12/15/24 09:22 12/28/24 09:45 12/28/24 09:50 Height 5 ft 6 in 5 ft 6 in 5 ft 6 in 5 ft 6 in Weight: 210 lb BMI 33.9 BP 118/72 Intake Visit Reasons: 32wk ob Chief Complaint: 32 Week OB Integration Director Required: No Is patient in pain?: No [...] 1 current occupational status: employed current occupation: [employer] current occupational exposures/hazards: No pets and animals: [...] 3-4 times per week duration: 15-30 minutes/day agata/sikh: Rastafari seatbelt use: always do you feel safe at home: Yes 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 Date Name GA/Weeks Outcome Route Bth Weight Gen Labor Lgth Anesthesia Del Locatn Provider FOB 08/11/20 Janie 39 live - full term 7lbs 8.5oz Female epidural [facility] Dr. Quang Samaniego 03/15/24 4 spontaneous Delivery [...] Pres Dilatio (more content not included)... Normal [facility] Laboratory - Chemistry and C hemistry - challengeOrdered By: Maryann Worthington on 12-15-2024 Glucose Ql (U) Negative [facility] Laboratory - UrinalysisOrder ed By: Maryann Worthington on 12-15-2024 Protein Ql (U) Trace [facility] Acute Care Nurse Practitioner Office Visit Reporton 12-15-2024 Acute Care Nurse Practitioner Office Visit Report [facility] [address], [address] [place] [address] OFFICE VISIT Date of Service: 12/15/24 MR#: [id number] Acct: [id number] Name: HANNAH HENDRICKS Rep #: [id number] : 1990 Provider: Dr. Maryann Mcclain DO Age/Sex: 34/F Location: [facility] Status: Signed Intake Vital Signs 10/12/24 15:54 12/01/24 08:19 12/15/24 09:22 12/15/24 09:22 Height 5 ft 6 in 5 ft 6 in 5 ft 6 in 5 ft 6 in Weight: 205 lb 9 oz BMI 33.1 BP 106/69 Intake Visit Reasons: 30 wk ob Integration Director Required: No Is patient in pain?: No [...] 3-4 times per week duration: 15-30 minutes/day agata/sikh: Rastafari seatbelt use: always do you feel safe at home: Yes 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 Date Name GA/Weeks Outcome Route Bth Weight Infant Gen Labor Lgth Anesthesia Del Locatn Provider FOB 08/11/20 Janie 39 live - full term 7lbs 8.5oz Female epidural [facility] Dr. Quang Samaniego 03/15/24 4 spontaneous Delivery [...] Dilation -???-???-???-???- (more content not included)... Normal [facility] Absolute lymphocyte countOrd ered By: Ximena Mcghee on 12-01-2024 Lymphocytes Auto (Unsp spec) [#/Vol] 1.59 10*3/uL 0.83-4.51 [facility] Absolute neutrophil countOrd ered By: Ximena Mcghee on 12-01-2024 Neutrophils (Bld) [#/Vol] 5.5 10*3/uL 2.0-7.7 [facility] Automated lymphocyte count a s percentage of total leukocytesOrdered By: Ximena Mcghee on 12-01-2024 Lymphocytes/100 WBC Auto (Unsp spec) 19.6 % 19-41 [facility] Basophil percentageOrdered B y: Ximena Mcghee on 12-01-2024 Basophils/100 WBC (Bld) 0.4 % 0-1 [facility] CBC W/Diff, Automatedon 11-13 Absolute Lymph 1.59 X10 3/uL Normal 0.83-4.51 [facility] Comment on above: Performed By: #### L 3890.6006, L100.0100, L501.0250, L509.8002 ####[facility] [address] [place], [place], [id number] Absolute Neut 5.5 X10 3/uL Normal 2.0-7.7 [facility] Comment on above: Performed By: #### L 3890.6006, L100.0100, L501.0250, L509.8002 ####[facility] [address] [place], [address] Basophils/100 WBC (Bld) 0.4 % Normal 0-1 [facility] Comment on above: Performed By: #### L 3890.6006, L100.0100, L501.0250, L509.8002 ####[facility] [address] [place], [address] Eosinophils/100 WBC (Bld) 8.1 % High 0-5 [facility] Comment on above: Performed By: #### L 3890.6006, L100.0100, L501.0250, L509.8002 ####[facility] [address] [place], [address] Erythrocyte distribution width (RBC) [Ratio] 12.1 % Normal 11.6-14.6 [facility] Comment on above: Performed By: #### L 3890.6006, L100.0100, L501.0250, L509.8002 ####[facility] [address] [place], [address] Hematocrit (Bld) [Volume fraction] 34.9 % Low 37-47 [facility] Comment on above: Performed By: #### L 3890.6006, L100.0100, L501.0250, L509.8002 ####[facility] [address] [place], [address] Hemoglobin (Bld) [Mass/Vol] 11.9 g/dL Low 12.0-15.0 [facility] Comment on above: Performed By: #### L 3890.6006, L100.0100, L501.0250, L509.8002 ####[facility] [address] [place], [address] IG% 0.400 Normal 0.0-0.9 [facility] Comment on above: Result Comment: IG% - Immature Granulocytes (promyelocytes, myelocytes and metamyelocytes) > 1% indicates that a LEFT SHIFT is Present. Performed By: #### L 3890.6006, L100.0100, L501.0250, L509.8002 ####[facility] [address] [place], [address] Lymphocytes/100 WBC (Bld) 19.6 % Normal 19-41 [facility] Comment on above: Performed By: #### L 3890.6006, L100.0100, L501.0250, L509.8002 ####[facility] [address] [place], [address] MCH (RBC) [Entitic mass] 33.1 pg High 27.0-32.0 [facility] Comment on above: Performed By: #### L 3890.6006, L100.0100, L501.0250, L509.8002 ####[facility] [address] [place], [address] MCHC (RBC) [Mass/Vol] 34.1 g/dL Normal 32-36 [facility] Comment on above: Performed By: #### L 3890.6006, L100.0100, L501.0250, L509.8002 ####[facility] [address] [place], [address] MCV (RBC) [Entitic vol] 97.2 fL Normal 81-99 [facility] Comment on above: Performed By: #### L 3890.6006, L100.0100, L501.0250, L509.8002 ####[facility] [address] [place], [address] Monocytes/100 WBC (Bld) 4.2 % Normal 0-10 [facility] Comment on above: Performed By: #### L 3890.6006, L100.0100, L501.0250, L509.8002 ####[facility] [address] [place], [address] Neutrophils/100 WBC (Bld) 67.3 % Normal 47-70 [facility] Comment on above: Performed By: #### L 3890.6006, L100.0100, L501.0250, L509.8002 ####[facility] [address] [place], [address] Nucleated RBC (Bld) [#/Vol] 0 10*3/uL Normal 0-5 [facility] Comment on above: Performed By: #### L 3890.6006, L100.0100, L501.0250, L509.8002 ####[facility] [address] [place], [address] Platelet mean volume (Bld) [Entitic vol] 10.0 fL Normal 6.2-12.0 [facility] Comment on above: Performed By: #### L 3890.6006, L100.0100, L501.0250, L509.8002 ####[facility] [address] [place], [address] Platelets (Bld) [#/Vol] 249 10*3/uL Normal 150-450 [facility] Comment on above: Performed By: #### L 3890.6006, L100.0100, L501.0250, L509.8002 ####[facility] [address] [place], [address] RBC (Bld) [#/Vol] 3.59 10*6/uL Low 4.2-5.4 [facility] Comment on above: Performed By: #### L 3890.6006, L100.0100, L501.0250, L509.8002 ####[facility] [address] [place], [address] RDW SD 43.2 fl Normal 35.1-43.9 [facility] Comment on above: Performed By: #### L 3890.6006, L100.0100, L501.0250, L509.8002 ####[facility] [address] [place], [address] WBC (Bld) [#/Vol] 8.1 10*3/uL Normal 4.4-11.0 [facility] Comment on above: Performed By: #### L 3890.6006, L100.0100, L501.0250, L509.8002 ####[facility] [address] [place], [address] Eosinophil percentageOrdered By: Ximena Mcghee on 12-01-2024 Eosinophils/100 WBC (Bld) 8.1 % High 0-5 [facility] Erythrocyte distribution wid th ratioOrdered By: Ximena Mcghee on 12-01-2024 Erythrocyte distribution width (RBC) [Ratio] 12.1 % 11.6-14.6 [facility] Erythrocyte distribution wid th standard deviationOrdered By: Ximena Mcghee on 12-01-2024 Erythrocyte distribution width (RBC) [Ratio] 43.2 fl 35.1-43.9 [facility] Glucose Challenge Gest 1H 50 kirsten 12-01-2024 GLU GEST 50g 1H 130 mg/dL Normal 70-140 [facility] Comment on above: Result Comment: AMENDED REPORT 12/01/24 1330 GLU GEST 50g 1H previously reported as: 133 mg/dL Performed By: #### L 3890.6006, L100.0100, L501.0250, L509.8002 ####[facility] [address] [place], [address] Glucose measurement at 2 benigno rs post-dose gestational glucose tolerance testOrdered By: Ximena Mcghee on 12-01-2024 Glucose [Mass/Vol] 130 mg/dL 70-140 [facility] Comment on above: Previous reported re sult: 133 mg/dLEdited by: PRASHANT on 12/01/24:1330 AMENDED REPORT 12/01/24 1330 GLU GEST 50g 1H previously reported as: 133 mg/dL HIVon 12-01-2024 HIV Non-Reactive Normal Nonreactive [facility] Comment on above: Result Comment: Non- Reactive Reactive Repeatedly reactive samples must be confirmed according to CDC recommended confirmatory algorithms. The subresults for either HIVAG or AHIV can be used as an aid in the selection of the confirmation algorithm for reactive samples. Send out specimens with Reactive results to [facility] for confirmation. Order the HIV antibody detection and differentiation: lc#[id number] Performed By: #### L 3890.6006, L100.0100, L501.0250, L509.8002 ####[facility] [address] [place], [place], [id number] Hematocrit Auto (Bld) [Volum e fraction]Ordered By: Ximena Mcghee on 12-01-2024 Hematocrit (Bld) [Volume fraction] 34.9 % Low 37-47 [facility] Hemoglobin measurementOrdere d By: Ximena Mcghee on 12-01-2024 Hemoglobin (Bld) [Mass/Vol] 11.9 g/dL Low 12.0-15.0 [facility] Immature granulocytes/100 WB C Auto (Bld)Ordered By: Ximena Mcghee on 12-01-2024 Immature granulocytes/100 WBC (Bld) 0.400 % 0.0-0.9 [facility] Comment on above: IG% - Immature Granu locytes (promyelocytes, myelocytes and metamyelocytes) > 1% indicates that a LEFT SHIFT is Present. Laboratory - Chemistry and C hemistry - challengeOrdered By: Barbie Mitchell on 12-01-2024 Glucose Ql (U) Negative [facility] Laboratory - UrinalysisOrder ed By: Barbie Mitchell on 12-01-2024 Protein Ql (U) Negative [facility] MCV (mean corpuscular volume ) determinationOrdered By: Ximena Mcghee on 12-01-2024 MCV (RBC) [Entitic vol] 97.2 fL 81-99 [facility] Mean corpuscular hemoglobin (MCH) determinationOrdered By: Ximena Mcghee on 12-01-2024 MCH (RBC) [Entitic mass] 33.1 pg High 27.0-32.0 [facility] Mean corpuscular hemoglobin concentration (MCHC) determinationOrdered By: Ximena Mcghee on 12-01-2024 MCHC (RBC) [Mass/Vol] 34.1 g/dL 32-36 [facility] Mean platelet volume determi nationOrdered By: iXmena Mcghee on 12-01-2024 Platelet mean volume (Bld) [Entitic vol] 10.0 fL 6.2-12.0 [facility] Monocyte percentageOrdered B y: Ximena Mcghee on 12-01-2024 Monocytes/100 WBC (Bld) 4.2 % 0-10 [facility] Neutrophil percentageOrdered By: Ximena Mcghee on 12-01-2024 Neutrophils/100 WBC (Bld) 67.3 % 47-70 [facility] No Panel InformationOrdered By: Ximena Mcghee on 12-01-2024 HIV (1&2) Antibody Non-Reactive Nonreactive [facility] Comment on above: Non-ReactiveReactive Repeatedly reactive samples must be confirmed according to CDC recommended confirmatory algorithms. The subresults for either HIVAG or AHIV can be used as an aid in the selection of the confirmation algorithm for reactive samples.Send out specimens with Reactive results to [facility] for confirmation.Order the HIV antibody detection and differentiation: lc#[id number] Nucleated red blood cell per centageOrdered By: Ximena Mcghee on 12-01-2024 Nucleated RBC/100 WBC (Bld) [Ratio] 0 % 0-5 [facility] Acute Care Nurse Practitioner Office Visit Reporton 12-01-2024 Acute Care Nurse Practitioner Office Visit Report [facility] [address], [address] [place] [address] OFFICE VISIT Date of Service: 12/01/24 MR#: [id number] Acct: [id number] Name: HANNAH HENDRICKS Rep #: [id number] : 1990 Provider: SHAWN wray Age/Sex: 34/F Location: [facility] Status: Signed Intake Vital Signs 09/14/24 08:59 11/09/24 08:55 12/01/24 08:19 Height 5 ft 6 in 5 ft 6 in 5 ft 6 in Weight: 206 lb 4 oz BMI 33.3 BP 112/70 Intake Visit Reasons: 28wk ob/glucose Chief Complaint: 28 Week OB/Glucose Integration Director Required: No Is patient in pain?: No [...] current occupational status: employed current occupation: [employer] current occupational exposures/hazards: No pets and animals: [...] 3-4 times per week duration: 15-30 minutes/day agata/sikh: Rastafari seatbelt use: always do you feel safe at home: Yes 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 Date Name GA/Weeks Outcome Route Bth Weight Gen Labor Lgth Anesthesia Del Locatn Provider FOB 08/11/20 Janie 39 live - full term 7lbs 8.5oz Female epidural [facility] Dr. Quang Samaniego 03/15/24 4 spontaneous Delivery [...] Visit Note (more content not included)... Normal [facility] Platelet countOrdered By: Bernardo Mcghee on 12-01-2024 Platelets (Bld) [#/Vol] 249 10*3/uL 150-450 [facility] RBC Auto (Bld) [#/Vol]Ordere d By: Ximena Mcghee on 12-01-2024 RBC (Bld) [#/Vol] 3.59 10*6/uL Low 4.2-5.4 [facility] Syphilis Antibodieson 2024 Syphilis Abs Non-Reactive Normal Nonreactive [facility] Comment on above: Performed By: #### L 3890.6006, L100.0100, L501.0250, L509.8002 ####[facility] [address] [place], [address] White blood cell (WBC) count Ordered By: Ximena Mcghee on 12-01-2024 WBC (Bld) [#/Vol] 8.1 10*3/uL 4.4-11.0 [facility] Laboratory - Chemistry and C hemistry - challengeOrdered By: Ximena Mcghee on 11-09-2024 Glucose Ql (U) Negative [facility] Laboratory - UrinalysisOrder ed By: Ximena Mcghee on 11-09-2024 Protein Ql (U) Trace [facility] Acute Care Nurse Practitioner Office Visit Reporton 11-09-2024 Acute Care Nurse Practitioner Office Visit Report [facility] [address], [address] [place] [address] OFFICE VISIT Date of Service: 11/09/24 MR#: [id number] Acct: [id number] Name: HANNAH HENDRICKS Rep #: [id number] : 1990 Provider: BART Kaur ams Age/Sex: 34/F Location: [facility] Status: Signed Intake Vital Signs 08/17/24 08:32 10/12/24 15:54 11/09/24 08:55 11/09/24 08:55 Height 5 ft 6 in 5 ft 6 in 5 ft 6 in 5 ft 6 in Weight: 202 lb 6 oz BMI 32.6 BP 104/71 Intake Visit Reasons: 25 wk ob Chief Complaint: 25wk OB Integration Director Required: No Is patient in pain?: No [...] current occupational status: employed current occupation: [employer] current occupational exposures/hazards: No pets and animals: [...] 3-4 times per week duration: 15-30 minutes/day agata/sikh: Rastafari seatbelt use: always do you feel safe at home: Yes 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 Date Name GA/Weeks Outcome Route Bth Weight Gen Labor Lgth Anesthesia Del Locatn Provider FOB 08/11/20 Janie 39 live - full term 7lbs 8.5oz Female epidural [facility] Dr. Quang Samaniego 03/15/24 4 spontaneous Delivery [...] 170 -? (more content not included)... Normal [facility] Laboratory - Chemistry and C hemistry - challengeOrdered By: Isabel Marino on 10-12-2024 Glucose Ql (U) Negative [facility] Laboratory - UrinalysisOrder ed By: Isabel Marino on 10-12-2024 Protein Ql (U) Negative [facility] Acute Care Nurse Practitioner Office Visit Reporton 10-12-2024 Acute Care Nurse Practitioner Office Visit Report [facility] [address], [address] [place] [address] OFFICE VISIT Date of Service: 10/12/24 MR#: [id number] Acct: [id number] Name: HANNAH HENDRICKS Rep #: [id number] : 1990 Provider: Dr. 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 Date Name GA/Weeks Outcome Route Bth Weight Gen Labor Lgth Anesthesia Del Locatn Provider FOB 08/11/20 Janie 39 live - full term 7lbs 8.5oz Female epidural [facility] Dr. Quang Samaniego 03/15/24 4 spontaneous Delivery [...] ??-???- 170 (more content not included)... Normal [facility] L3410.9992on 10-10-2024 [facility] Misc. COMMENT Normal . [facility] Comment on above: Order Comment: [id number] 1AFP SERUM RT Result Comment: Test Ordered: [id number] AFP, Serum, Open Spina Bifida Results DIRECTOR OF CONSTRUCTION NOLAB Reference Range: . Test Results: TG Reference Range: . Please refer to the following specimen for additional lab results. Please refer to [phone] for results. Gest. Age on Collection Date DIRECTOR OF CONSTRUCTION NOLAB Reference Range: . Gestat. Age Based On DIRECTOR OF CONSTRUCTION NOLAB Reference Range: . Maternal Age At BALAJI DIRECTOR OF CONSTRUCTION NOLAB Reference Range: . Race DIRECTOR OF CONSTRUCTION NOLAB Reference Range: . Weight DIRECTOR OF CONSTRUCTION NOLAB Reference Range: . Insulin Dep Diabetes DIRECTOR OF CONSTRUCTION NOLAB Reference Range: . Multiple Gestation DIRECTOR OF CONSTRUCTION NOLAB Reference Range: . AFP Value NOLAB Reference Range: . Test not performed AFP MoM DIRECTOR OF CONSTRUCTION NOLAB Reference Range: . OSBR Risk 1 IN DIRECTOR OF CONSTRUCTION NOLAB Reference Range: . Interpretation DIRECTOR OF CONSTRUCTION NOLAB Reference Range: . Comment: DIRECTOR OF CONSTRUCTION NOLAB Reference Range: . Tracking DIRECTOR OF CONSTRUCTION NOLAB Reference Range: . Performed at: - [facility] [address] [place], [place] [id number] Studio Hand: Norm Gonzáles PhD, Phone: [phone] Performed at: - [facility] [address] [place], [place] [id number] Studio Hand: Zelalem Ernst [facility], Phone: [phone] Performed By: #### L 3410.9992 ####[facility] [address] [place], [place], [address] Laboratory - Chemistry and C hemistry - challengeOrdered By: Ximena Mcghee on 09-14-2024 Glucose Ql (U) Negative [facility] Laboratory - UrinalysisOrder ed By: Ximena Mcghee on 09-14-2024 Protein Ql (U) Negative [facility] Acute Care Nurse Practitioner Office Visit Reporton 09-14-2024 Acute Care Nurse Practitioner Office Visit Report [facility] [address], [address] [place] [address] OFFICE VISIT Date of Service: 09/14/24 MR#: [id number] Acct: [id number] Name: HANNAH HENDRICKS Rep #: [id number] : 1990 Provider: BART Kaur ams Age/Sex: 34/F Location: [facility] Status: Signed Intake Vital Signs 07/20/24 13:59 08/17/24 08:32 09/14/24 08:59 Height 5 ft 6 in 5 ft 6 in 5 ft 6 in Weight: 190 lb 2 oz BMI 30.7 BP 106/71 Intake Visit Reasons: 17wk ob Chief Complaint: 17wk OB Integration Director Required: No Is patient in pain?: No [...] 3-4 times per week duration: 15-30 minutes/day agata/sikh: Rastafari seatbelt use: always do you feel safe at home: Yes 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 Date Name GA/Weeks Outcome Route Bth Weight Infant Gen Labor Lgth Anesthesia Del Locatn Provider FOB 08/11/20 Janie 39 live - full term 7lbs 8.5oz Female epidural [facility] Dr. Quang Samaniego 03/15/24 4 spontaneous Delivery [...] -???-???-???-???-???- ???-???-?? (more content not included)... Normal [facility] Laboratory - Chemistry and C hemistry - challengeOrdered By: Barbie Mitchell on 08-17-2024 Glucose Ql (U) Negative [facility] Laboratory - UrinalysisOrder ed By: Barbie Mitchell on 08-17-2024 Protein Ql (U) Trace [facility] Acute Care Nurse Practitioner Office Visit Reporton 08-17-2024 Acute Care Nurse Practitioner Office Visit Report [facility] [address], [address] [place] [address] OFFICE VISIT Date of Service: 08/17/24 MR#: [id number] Acct: [id number] Name: HANNAH HENDRICKS Rep #: [id number] : 1990 Provider: SHAWN wray Age/Sex: 34/F Location: [facility] Status: Signed Intake Vital Signs 04/14/24 14:22 08/05/24 09:52 08/17/24 08:32 Height 5 ft 6 in 5 ft 6 in 5 ft 6 in Weight: 184 lb 8 oz BMI 29.7 BP 104/68 Intake Visit Reasons: 13wk ob Integration Director Required: No Is patient in pain?: No [...] 1 current occupational status: employed current occupation: [employer] current occupational exposures/hazards: No pets and animals: [...] 3-4 times per week duration: 15-30 minutes/day agata/sikh: Rastafari seatbelt use: always do you feel safe at home: Yes 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 Date Name GA/Weeks Outcome Route Bth Weight Infant Gen Labor Lgth Anesthesia Del Locatn Provider FOB 08/11/20 Janie 39 live - full term 7lbs 8.5oz Female epidural [facility] Dr. Quang Samaniego 03/15/24 4 spontaneous Delivery [...] ???-???-???-???-???-? ??-???- (more content not included)... Normal [facility] Laboratory - Chemistry and C hemistry - challengeOrdered By: Barbie Mitchell on 08-05-2024 Glucose Ql (U) Negative [facility] Laboratory - UrinalysisOrder ed By: Barbie Mitchell on 08-05-2024 Protein Ql (U) Negative [facility] Acute Care Nurse Practitioner Office Visit Reporton 08-05-2024 Acute Care Nurse Practitioner Office Visit Report [facility] [address], [address] [place] [address] OFFICE VISIT Date of Service: 08/05/24 MR#: [id number] Acct: [id number] Name: HANNAH HENDRICKS Rep #: [id number] : 1990 Provider: SHAWN wray Age/Sex: 34/F Location: [facility] Status: Signed Intake Vital Signs 07/20/24 13:59 08/05/24 09:52 Height 5 ft 6 in 5 ft 6 in Weight: 183 lb BMI 29.5 BP 126/78 H Intake Visit Reasons: Heart tone check Chief Complaint: Heart tone check Integration Director Required: No Is patient in pain?: No [...] current occupational status: employed current occupation: [employer] current occupational exposures/hazards: No pets and animals: [...] 3-4 times per week duration: 15-30 minutes/day agata/sikh: Rastafari seatbelt use: always do you feel safe at home: Yes 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 Date Name GA/Weeks Outcome Route Bth Weight Gen Labor Lgth Anesthesia Del Locatn Provider FOB 08/11/20 Janie 39 live - full term 7lbs 8.5oz Female epidural [facility] Dr. Quang Samaniego 03/15/24 4 spontaneous Delivery [...] -???-???-???-???-???- ???-??? (more content not included)... Normal [facility] Absolute lymphocyte countOrd ered By: Maryann Worthington on 07-31-2024 Lymphocytes Auto (Unsp spec) [#/Vol] 2.10 10*3/uL 0.83-4.51 [facility] Absolute neutrophil countOrd ered By: Maryann Elin on 07-31-2024 Neutrophils (Bld) [#/Vol] 3.9 10*3/uL 2.0-7.7 [facility] Automated lymphocyte count a s percentage of total leukocytesOrdered By: Maryann Worthington on 07-31-2024 Lymphocytes/100 WBC Auto (Unsp spec) 29.6 % 19-41 [facility] Basophil percentageOrdered B y: Maryann Worthington on 07-31-2024 Basophils/100 WBC (Bld) 0.4 % 0-1 [facility] CBC W/Diff, Automatedon 07-14 Absolute Lymph 2.10 X10 3/uL Normal 0.83-4.51 [facility] Comment on above: Performed By: #### L 900.0098, L100.0100, L509.4006, L509.8002, L3890.6006, L3890.6102, L3890.6301, BTS ####[facility] [address] [place], [address] Absolute Neut 3.9 X10 3/uL Normal 2.0-7.7 [facility] Comment on above: Performed By: #### L 900.0098, L100.0100, L509.4006, L509.8002, L3890.6006, L3890.6102, L3890.6301, BTS ####[facility] [address] [place], [address] Basophils/100 WBC (Bld) 0.4 % Normal 0-1 [facility] Comment on above: Performed By: #### L 900.0098, L100.0100, L509.4006, L509.8002, L3890.6006, L3890.6102, L3890.6301, BTS ####[facility] [address] [place], [address] Eosinophils/100 WBC (Bld) 8.3 % High 0-5 [facility] Comment on above: Performed By: #### L 900.0098, L100.0100, L509.4006, L509.8002, L3890.6006, L3890.6102, L3890.6301, BTS ####[facility] [address] [place], [address] Erythrocyte distribution width (RBC) [Ratio] 11.6 % Normal 11.6-14.6 [facility] Comment on above: Performed By: #### L 900.0098, L100.0100, L509.4006, L509.8002, L3890.6006, L3890.6102, L3890.6301, BTS ####[facility] [address] [place], [address] Hematocrit (Bld) [Volume fraction] 37.1 % Normal 37-47 [facility] Comment on above: Performed By: #### L 900.0098, L100.0100, L509.4006, L509.8002, L3890.6006, L3890.6102, L3890.6301, BTS ####[facility] [address] [place], [address] Hemoglobin (Bld) [Mass/Vol] 12.8 g/dL Normal 12.0-15.0 [facility] Comment on above: Performed By: #### L 900.0098, L100.0100, L509.4006, L509.8002, L3890.6006, L3890.6102, L3890.6301, BTS ####[facility] [address] [place], [address] IG% 0.300 Normal 0.0-0.9 [facility] Comment on above: Result Comment: IG% - Immature Granulocytes (promyelocytes, myelocytes and metamyelocytes) > 1% indicates that a LEFT SHIFT is Present. Performed By: #### L 900.0098, L100.0100, L509.4006, L509.8002, L3890.6006, L3890.6102, L3890.6301, BTS ####[facility] [address] [place], [address] Lymphocytes/100 WBC (Bld) 29.6 % Normal 19-41 [facility] Comment on above: Performed By: #### L 900.0098, L100.0100, L509.4006, L509.8002, L3890.6006, L3890.6102, L3890.6301, BTS ####[facility] [address] [place], [address] MCH (RBC) [Entitic mass] 32.9 pg High 27.0-32.0 [facility] Comment on above: Performed By: #### L 900.0098, L100.0100, L509.4006, L509.8002, L3890.6006, L3890.6102, L3890.6301, BTS ####[facility] [address] [place], [address] MCHC (RBC) [Mass/Vol] 34.5 g/dL Normal 32-36 [facility] Comment on above: Performed By: #### L 900.0098, L100.0100, L509.4006, L509.8002, L3890.6006, L3890.6102, L3890.6301, BTS ####[facility] [address] [place], [address] MCV (RBC) [Entitic vol] 95.4 fL Normal 81-99 [facility] Comment on above: Performed By: #### L 900.0098, L100.0100, L509.4006, L509.8002, L3890.6006, L3890.6102, L3890.6301, BTS ####[facility] [address] [place], [address] Monocytes/100 WBC (Bld) 6.2 % Normal 0-10 [facility] Comment on above: Performed By: #### L 900.0098, L100.0100, L509.4006, L509.8002, L3890.6006, L3890.6102, L3890.6301, BTS ####[facility] [address] [place], [address] Neutrophils/100 WBC (Bld) 55.2 % Normal 47-70 [facility] Comment on above: Performed By: #### L 900.0098, L100.0100, L509.4006, L509.8002, L3890.6006, L3890.6102, L3890.6301, BTS ####[facility] [address] [place], [address] Nucleated RBC (Bld) [#/Vol] 0 10*3/uL Normal 0-5 [facility] Comment on above: Performed By: #### L 900.0098, L100.0100, L509.4006, L509.8002, L3890.6006, L3890.6102, L3890.6301, BTS ####[facility] [address] [place], [address] Platelet mean volume (Bld) [Entitic vol] 9.5 fL Normal 6.2-12.0 [facility] Comment on above: Performed By: #### L 900.0098, L100.0100, L509.4006, L509.8002, L3890.6006, L3890.6102, L3890.6301, BTS ####[facility] [address] [place], [address] Platelets (Bld) [#/Vol] 277 10*3/uL Normal 150-450 [facility] Comment on above: Performed By: #### L 900.0098, L100.0100, L509.4006, L509.8002, L3890.6006, L3890.6102, L3890.6301, BTS ####[facility] [address] [place], [address] RBC (Bld) [#/Vol] 3.89 10*6/uL Low 4.2-5.4 [facility] Comment on above: Performed By: #### L 900.0098, L100.0100, L509.4006, L509.8002, L3890.6006, L3890.6102, L3890.6301, BTS ####[facility] [address] [place], [address] RDW SD 40.3 fl Normal 35.1-43.9 [facility] Comment on above: Performed By: #### L 900.0098, L100.0100, L509.4006, L509.8002, L3890.6006, L3890.6102, L3890.6301, BTS ####[facility] [address] [place], [address] WBC (Bld) [#/Vol] 7.1 10*3/uL Normal 4.4-11.0 [facility] Comment on above: Performed By: #### L 900.0098, L100.0100, L509.4006, L509.8002, L3890.6006, L3890.6102, L3890.6301, BTS ####[facility] [address] [facility] [place], [address] Eosinophil percentageOrdered By: Maryann Worthington on 07-31-2024 Eosinophils/100 WBC (Bld) 8.3 % High 0-5 [facility] Erythrocyte distribution wid th ratioOrdered By: Maryann Worthington on 07-31-2024 Erythrocyte distribution width (RBC) [Ratio] 11.6 % 11.6-14.6 [facility] Erythrocyte distribution wid th standard deviationOrdered By: [facility] on 07-31-2024 Erythrocyte distribution width (RBC) [Ratio] 40.3 fl 35.1-43.9 [facility] HIVon 07-31-2024 HIV Non-Reactive Normal Nonreactive [facility] Comment on above: Result Comment: Non- Reactive Reactive Repeatedly reactive samples must be confirmed according to CDC recommended confirmatory algorithms. The subresults for either HIVAG or AHIV can be used as an aid in the selection of the confirmation algorithm for reactive samples. Send out specimens with Reactive results to [facility] for confirmation. Order the HIV antibody detection and differentiation: lc#[id number] Performed By: #### L 900.0098, L100.0100, L509.4006, L509.8002, L3890.6006, L3890.6102, L3890.6301, BTS ####[facility] [address] [place], [place], [address] Hematocrit Auto (Bld) [Volum e fraction]Ordered By: Maryann Elin on 07-31-2024 Hematocrit (Bld) [Volume fraction] 37.1 % 37-47 [facility] Hemoglobin measurementOrdere d By: Maryann Elin on 07-31-2024 Hemoglobin (Bld) [Mass/Vol] 12.8 g/dL 12.0-15.0 [facility] Hepatitis C Antibodyon 07-31 Hepatitis C Ab Non-Reactive Normal Nonreactive [facility] Comment on above: Result Comment: Reac tive: Presumptive evidence of antibodies to HCV. Follow CDC recommendations for supplemental testing. Non-Reactive: Antibodies to HCV were not detected; does not exclude the possibility of exposure to HCV Reactive Results are presumptive evidence of antibodies to HCV. Follow CDC recommendations for supplemental testing. Order confirmation testing: HCV Quant by PCR testing - HCVPCR lc#[id number] Non Reactive: < 0.8 Equivocal: >/= 0.8 to < 1.0 Reactive: >/= 1.0 The CDC requires that a reactive/equivocal HCV antibody result be sent out for confirmation. HCV Quant by PCR testing. Performed By: #### L 900.0098, L100.0100, L509.4006, L509.8002, L3890.6006, L3890.6102, L3890.6301, BTS ####[facility] [address] [place], [place], [id number] Immature granulocytes/100 WB C Auto (Bld)Ordered By: Maryann Worthington on 07-31-2024 Immature granulocytes/100 WBC (Bld) 0.300 % 0.0-0.9 [facility] Comment on above: IG% - Immature Granu locytes (promyelocytes, myelocytes and metamyelocytes) > 1% indicates that a LEFT SHIFT is Present. L3890.6102on 07-31-2024 HEP B Surf Ag Non-Reactive Normal Nonreactive [facility] Comment on above: Result Comment: Reac tive: Presumptive evidence of HBV. Repeatedly reactive samples must be confirmed using a neutralization test ([employer] HBsAg Confirmatory Test) Non-Reactive: HBsAg not detected; does not exclude the possibility of exposure to HBV Performed By: #### L 900.0098, L100.0100, L509.4006, L509.8002, L3890.6006, L3890.6102, L3890.6301, BTS ####[facility] [address] [facility] [place], [address] L509.4006on 07-31-2024 Rubella IgG REAC Normal Nonreactive [facility] Comment on above: Result Comment: Anti body Result: Interpretation Non-Reactive: Non-Immune Reactive: Immune The following results were obtained with the [employer] Rubella IgG assay. Results from assays of other manufacturers cannot be used interchangeably. Performed By: #### L 900.0098, L100.0100, L509.4006, L509.8002, L3890.6006, L3890.6102, L3890.6301, BTS ####[facility] [address] [place], [place], [address] Laboratory - Microbiology an d Antimicrobial susceptibilityOrdered By: Maryann Worthington on 07-31-2024 HBV surface Ag Ql (S) Non-Reactive Nonreactive [facility] Comment on above: Reactive: Presumptiv e evidence of HBV. Repeatedly reactive samples must be confirmed using a neutralization test ([employer] HBsAg Confirmatory Test)Non-Reactive: HBsAg not detected; does not exclude the possibility of exposure to HBV MCV (mean corpuscular volume ) determinationOrdered By: Maryann Worthington on 07-31-2024 MCV (RBC) [Entitic vol] 95.4 fL 81-99 [facility] Mean corpuscular hemoglobin (MCH) determinationOrdered By: Maryann Worthington on 07-31-2024 MCH (RBC) [Entitic mass] 32.9 pg High 27.0-32.0 [facility] Mean corpuscular hemoglobin concentration (MCHC) determinationOrdered By: Maryann Worthington on 07-31-2024 MCHC (RBC) [Mass/Vol] 34.5 g/dL 32-36 [facility] Mean platelet volume determi nationOrdered By: Maryann Worthington on 07-31-2024 Platelet mean volume (Bld) [Entitic vol] 9.5 fL 6.2-12.0 [facility] Monocyte percentageOrdered B y: Maryann Worthington on 07-31-2024 Monocytes/100 WBC (Bld) 6.2 % 0-10 [facility] NATERAon 07-31-2024 NATURA SEE SCANNED REPORT Normal [facility] Comment on above: Performed By: #### L 900.0098, L100.0100, L509.4006, L509.8002, L3890.6006, L3890.6102, L3890.6301, BTS ####[facility] [address] [place], [address] Neutrophil percentageOrdered By: Maryann Worthington on 07-31-2024 Neutrophils/100 WBC (Bld) 55.2 % 47-70 [facility] No Panel InformationOrdered By: Maryann Worthington on 07-31-2024 HIV (1&2) Antibody Non-Reactive Nonreactive [facility] Comment on above: Non-ReactiveReactive Repeatedly reactive samples must be confirmed according to CDC recommended confirmatory algorithms. The subresults for either HIVAG or AHIV can be used as an aid in the selection of the confirmation algorithm for reactive samples.Send out specimens with Reactive results to [facility] for confirmation.Order the HIV antibody detection and differentiation: #[id number] Nucleated red blood cell per centageOrdered By: Maryann Worthington on 07-31-2024 Nucleated RBC/100 WBC (Bld) [Ratio] 0 % 0-5 [facility] Platelet countOrdered By: Blas Worthington on 07-31-2024 Platelets (Bld) [#/Vol] 277 10*3/uL 150-450 [facility] RBC Auto (Bld) [#/Vol]Ordere d By: Maryann Worthington on 07-31-2024 RBC (Bld) [#/Vol] 3.89 10*6/uL Low 4.2-5.4 [facility] Syphilis Antibodieson 2024 Syphilis Abs Non-Reactive Normal Nonreactive [facility] Comment on above: Performed By: #### L 900.0098, L100.0100, L509.4006, L509.8002, L3890.6006, L3890.6102, L3890.6301, BTS ####[facility] [address] [place], [address] Type AND Screenon 07-31-2024 ABO and Rh group Nom (Bld) Blood group A Rh(D) positive Normal [facility] Comment on above: Order Comment: PN Performed By: #### L 900.0098, L100.0100, L509.4006, L509.8002, L3890.6006, L3890.6102, L3890.6301, BTS ####[facility] [address] [place], [address] White blood cell (WBC) count Ordered By: Maryann Worthington on 07-31-2024 WBC (Bld) [#/Vol] 7.1 10*3/uL 4.4-11.0 [facility] Chlamydia/GC YANDY aptimaon CHLAMY,NUC ACID Negative Normal Negative [facility] Comment on above: Performed By: #### M 100.2200, L7000.1800 ####[facility] [address] [place], [address] GC BY NUC ACID Negative Normal Negative [facility] Comment on above: Result Comment: Perf ormed at: =G - [facility] [address] [id number] Studio Hand: Radha Alfaro MD, Phone: [phone] Performed By: #### M 100.2200, L7000.1800 ####[facility] [address] [place], [address] Urine Cultureon 07-23-2024 URC Presumptive C albicans [place] Count <1000 Mixed Gram Positive Organisms Mixed Gram Positive Organisms MIXC Mixed contaminants. Submit a new specimen if indicated. Normal [facility] Comment on above: Performed By: #### M 100.2200, L7000.1800 ####[facility] [address] [place], [address] C. trachomatis rRNA YANDY+prob e Ql (Unsp spec)Ordered By: Maryann Worthington on 07-20-2024 Chlamydia DNA (YANDY) Negative Negative [facility] Chlamydia trachomatis rRNA d etection by probe and target amplification methodOrdered By: Maryann Worthington on 07-20-2024 C. trachomatis rRNA YANDY+probe Ql (Unsp spec) Negative Negative [facility] Neisseria gonorrhoeae nuclei c acid detection by amplified probe techniqueOrdered By: Maryann Worthington on 07-20-2024 N. gonorrhoeae DNA YANDY+probe Ql (Unsp spec) Negative Negative [facility] Comment on above: Performed at: [address] [id number] Director: Radha Alfaro MD, Phone: [phone] Acute Care Nurse Practitioner Office Visit Reporton 07-20-2024 Acute Care Nurse Practitioner Office Visit Report [facility] [address], [address] [place] [address] OFFICE VISIT Date of Service: 07/20/24 MR#: [id number] Acct: [id number] Name: HANNAH HENDRICKS Rep #: [id number] : 1990 Provider: Dr. Maryann Mcclain DO Age/Sex: 34/F Location: [facility] Status: Signed Intake Vital Signs 04/14/24 14:22 07/20/24 13:58 07/20/24 13:59 Height 5 ft 6 in 5 ft 6 in 5 ft 6 in Weight: 182 lb 6 oz BMI 29.4 BP 117/79 Intake Visit Reasons: NOB LMP 2/8 Integration Director Required: No Is patient in pain?: No [...] 1 current occupational status: employed current occupation: [employer] current occupational exposures/hazards: No pets and animals: [...] 3-4 times per week duration: 15-30 minutes/day agata/sikh: Rastafari seatbelt use: always do you feel safe at home: Yes 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 Date Name GA/Weeks Outcome Route Bth Weight Infant Gen Labor Lgth Anesthesia Del Locatn Provider FOB 08/11/20 Janie 39 live - full term 7lbs 8.5oz Female epidural [facility] Dr. Quang Samaniego 03/15/24 4 spontaneous Delivery [...] 117/79 -???-???-???-? (more content not included)... Normal [facility] Urine cultureOrdered By: Leah Worthington on 07-20-2024 Bacteria identified Cx Nom (U) Presumptive C albicans Abnormal [facility] Bacteria identified Cx Nom (U) Positive Abnormal [facility] Transvaginal w/Preg USon Transvaginal w/Preg US [facility] [address] [place], [place] [address] Transvaginal w/Preg US MR#: [id number] Acct: [id number] Name: HANNAH HENDRICKS Rep #: [id number] : 1990 F 34 From: Hayde Yuan MD PCP: Dr. Thomas Salinas MD Status: REG CLI Study: Transvaginal w/Preg US Date of Exam: 07/02/24 Exam# [id number] Ordering Dr: Maryann Bajwa DO PROCEDURE: TRANSVAGINAL [...] 3. Additional description as above. Reading Location: [id number] CC: Dr. Maryann Bajwa DO; Dr. Thomas Salinas MD Awake Overnight Monitor: Signed Normal [facility] HCG ( test) QlOrder ed By: Maryann Worthington on 06-27-2024 Human Chorionic Gonadotropin, Quant 5354 mIU/mL High <9 [facility] Comment on above: Gestational Age0.2-1 Week: 5-50 mIU/mL1-2 Weeks: 50-500 mIU/mL2-3 Weeks: 100-5000 mIU/mL3-4 Weeks: 500-10,000 mIU/mL4-5 Weeks:1000-50,000 mIU/mL5-6 Weeks: 10,000-100,000 mIU/mL6-8 Weeks: 15,000-200,000 mIU/mL2-3 Months:10,000-100,000 mIU/mL Serum human chorionic gonado tropin detection for pregnancyOrdered By: Maryann Worthington on 06-27-2024 HCG ( test) Ql 5354 mIU/mL High <9 [facility] Comment on above: Gestational Age0.2-1 Week: 5-50 mIU/mL1-2 Weeks: 50-500 mIU/mL2-3 Weeks: 100-5000 mIU/mL3-4 Weeks: 500-10,000 mIU/mL4-5 Weeks:1000-50,000 mIU/mL5-6 Weeks: 10,000-100,000 mIU/mL6-8 Weeks: 15,000-200,000 mIU/mL2-3 Months:10,000-100,000 mIU/mL hCG Titer Quant., Serumon HCG QUANT. 5354 mIU/mL High <9 non-preg [facility] Comment on above: Result Comment: Gest ational Age 0.2-1 Week: 5-50 mIU/mL 1-2 Weeks: 50-500 mIU/mL 2-3 Weeks: 100-5000 mIU/mL 3-4 Weeks: 500-10,000 mIU/mL 4-5 Weeks:1000-50,000 mIU/mL 5-6 Weeks: 10,000-100,000 mIU/mL 6-8 Weeks: 15,000-200,000 mIU/mL 2-3 Months:10,000-100,000 mIU/mL Performed By: #### L 700.8000 ####[facility] [address] [place], [address] HCG ( test) QlOrder ed By: Maryann Worthington on 06-25-2024 Human Chorionic Gonadotropin, Quant 2419 mIU/mL High <9 [facility] Comment on above: Gestational Age0.2-1 Week: 5-50 mIU/mL1-2 Weeks: 50-500 mIU/mL2-3 Weeks: 100-5000 mIU/mL3-4 Weeks: 500-10,000 mIU/mL4-5 Weeks:1000-50,000 mIU/mL5-6 Weeks: 10,000-100,000 mIU/mL6-8 Weeks: 15,000-200,000 mIU/mL2-3 Months:10,000-100,000 mIU/mL Serum human chorionic gonado tropin detection for pregnancyOrdered By: Maryann Worthington on 06-25-2024 HCG ( test) Ql 2419 mIU/mL High <9 [facility] Comment on above: Gestational Age0.2-1 Week: 5-50 mIU/mL1-2 Weeks: 50-500 mIU/mL2-3 Weeks: 100-5000 mIU/mL3-4 Weeks: 500-10,000 mIU/mL4-5 Weeks:1000-50,000 mIU/mL5-6 Weeks: 10,000-100,000 mIU/mL6-8 Weeks: 15,000-200,000 mIU/mL2-3 Months:10,000-100,000 mIU/mL Transvaginal w/Preg USon Transvaginal w/Preg US [facility] [address] [place] [address] Transvaginal w/Preg US MR#: [id number] Acct: [id number] Name: HANNAH HENDRICKS Rep #: [id number] : 1990 F 34 From: Hayde Yuan MD PCP: Dr. Thomas Salinas MD Status: REG CLI Study: Transvaginal w/Preg US Date of Exam: 06/25/24 Exam# [id number] Ordering Dr: Maryann Bajwa DO PROCEDURE: TRANSVAGINAL [...] 3. Additional description as above. Reading Location: [facility] CC: Dr. Maryann Bajwa DO; Dr. Thomas Salinas MD Awake Overnight Monitor: Signed Normal [facility] hCG Titer Quant., Serumon HCG QUANT. 2419 mIU/mL High <9 non-preg [facility] Comment on above: Result Comment: Gest ational Age 0.2-1 Week: 5-50 mIU/mL 1-2 Weeks: 50-500 mIU/mL 2-3 Weeks: 100-5000 mIU/mL 3-4 Weeks: 500-10,000 mIU/mL 4-5 Weeks:1000-50,000 mIU/mL 5-6 Weeks: 10,000-100,000 mIU/mL 6-8 Weeks: 15,000-200,000 mIU/mL 2-3 Months:10,000-100,000 mIU/mL Performed By: #### L 700.8000 ####[facility] [address] [place], [place], [id number] HCG ( test) QlOrder ed By: Maryann Worthington on 06-18-2024 Human Chorionic Gonadotropin, Quant 110 mIU/mL High <9 [facility] Comment on above: Gestational Age0.2-1 Week: 5-50 mIU/mL1-2 Weeks: 50-500 mIU/mL2-3 Weeks: 100-5000 mIU/mL3-4 Weeks: 500-10,000 mIU/mL4-5 Weeks:1000-50,000 mIU/mL5-6 Weeks: 10,000-100,000 mIU/mL6-8 Weeks: 15,000-200,000 mIU/mL2-3 Months:10,000-100,000 mIU/mL Serum human chorionic gonado tropin detection for pregnancyOrdered By: Maryann Worthington on 06-18-2024 HCG ( test) Ql 110 mIU/mL High <9 [facility] Comment on above: Gestational Age0.2-1 Week: 5-50 mIU/mL1-2 Weeks: 50-500 mIU/mL2-3 Weeks: 100-5000 mIU/mL3-4 Weeks: 500-10,000 mIU/mL4-5 Weeks:1000-50,000 mIU/mL5-6 Weeks: 10,000-100,000 mIU/mL6-8 Weeks: 15,000-200,000 mIU/mL2-3 Months:10,000-100,000 mIU/mL hCG Titer Quant., Serumon HCG QUANT. 110 mIU/mL High <9 non-preg [facility] Comment on above: Result Comment: Gest ational Age 0.2-1 Week: 5-50 mIU/mL 1-2 Weeks: 50-500 mIU/mL 2-3 Weeks: 100-5000 mIU/mL 3-4 Weeks: 500-10,000 mIU/mL 4-5 Weeks:1000-50,000 mIU/mL 5-6 Weeks: 10,000-100,000 mIU/mL 6-8 Weeks: 15,000-200,000 mIU/mL 2-3 Months:10,000-100,000 mIU/mL Performed By: #### L 700.8000 ####[facility] [address] [place], [address] HCG ( test) QlOrder ed By: Maryann Worthington on 06-16-2024 Human Chorionic Gonadotropin, Quant 37 mIU/mL High <9 [facility] Comment on above: Gestational Age0.2-1 Week: 5-50 mIU/mL1-2 Weeks: 50-500 mIU/mL2-3 Weeks: 100-5000 mIU/mL3-4 Weeks: 500-10,000 mIU/mL4-5 Weeks:1000-50,000 mIU/mL5-6 Weeks: 10,000-100,000 mIU/mL6-8 Weeks: 15,000-200,000 mIU/mL2-3 Months:10,000-100,000 mIU/mL Serum human chorionic gonado tropin detection for pregnancyOrdered By: Maryann Worthington on 06-16-2024 HCG ( test) Ql 37 mIU/mL High <9 [facility] Comment on above: Gestational Age0.2-1 Week: 5-50 mIU/mL1-2 Weeks: 50-500 mIU/mL2-3 Weeks: 100-5000 mIU/mL3-4 Weeks: 500-10,000 mIU/mL4-5 Weeks:1000-50,000 mIU/mL5-6 Weeks: 10,000-100,000 mIU/mL6-8 Weeks: 15,000-200,000 mIU/mL2-3 Months:10,000-100,000 mIU/mL hCG Titer Quant., Serumon HCG QUANT. 37 mIU/mL High <9 non-preg [facility] Comment on above: Result Comment: Gest ational Age 0.2-1 Week: 5-50 mIU/mL 1-2 Weeks: 50-500 mIU/mL 2-3 Weeks: 100-5000 mIU/mL 3-4 Weeks: 500-10,000 mIU/mL 4-5 Weeks:1000-50,000 mIU/mL 5-6 Weeks: 10,000-100,000 mIU/mL 6-8 Weeks: 15,000-200,000 mIU/mL 2-3 Months:10,000-100,000 mIU/mL Performed By: #### L 700.8000 ####[facility] [address] [place], [address] HCG ( test) QlOrder ed By: Barbei Mitchell on 04-14-2024 Human Chorionic Gonadotropin, Quant < 1 mIU/mL <4 [facility] Comment on above: hCG levels with Gest ational AgeGestational Age hCG mIU/mL (IU/L)0.2 - 1 week 5 - 501-2 weeks 50 - 5002-3 weeks 100 - 58669-4 weeks 500 - 992917-9 weeks 1000 - 654094-7 weeks 27940 - 100,0006-8 weeks 56750 - 200,0002-3 months 94302 - 100,000 Acute Care Nurse Practitioner Office Visit Reporton 04-14-2024 Acute Care Nurse Practitioner Office Visit Report [facility] [address], [address] [place] [address] OFFICE VISIT Date of Service: 04/14/24 MR#: [id number] Acct: [id number] Name: HANNAH HENDRICKS Rep #: [id number] : 1990 Provider: SHAWN wray Age/Sex: 34/F Location: [facility] Status: Signed Intake Vital Signs 04/01/24 16:16 04/14/24 14:19 04/14/24 14:22 Height 5 ft 6 in 5 ft 6 in 5 ft 6 in Weight: 178 lb 8 oz BMI 28.8 BP 114/78 Intake Visit Reasons: Miscarriage F/U Chief Complaint: Miscarriage F/u Integration Director Required: No Is patient in pain?: No [...] 1 current occupational status: employed current occupation: [employer] current occupational exposures/hazards: No pets and animals: [...] safe at home: Yes 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 [place] Delivery Date: 08/11/20 Last [...] HCGs 04/14/24 1511 Date Barbie Mitchell NP DIRECTOR OF CONSTRUCTION-C Cosigner Signature: Date (if applicable (more content not included)... Normal [facility] hCG Titer Quant., Serumon HCG QUANT. < 1 Normal 1-3 [facility] Comment on above: Result Comment: hCG levels with Gestational Age Gestational Age hCG mIU/mL (IU/L) 0.2 - 1 week 5 - 50 1-2 weeks 50 - 500 2-3 weeks 100 - 5000 3-4 weeks 500 - 16134 4-5 weeks 1000 - 90902 5-6 weeks 34929 - 100,000 6-8 weeks 18711 - 200,000 2-3 months 37619 - 100,000 Performed By: #### L 700.6775 ####[facility] [address] [place], [place], [id number] HCG ( test) QlOrder ed By: Isabel Marino on 04-06-2024 Human Chorionic Gonadotropin, Quant 6 mIU/mL High <4 [facility] hCG Titer Quant., Serumon HCG QUANT. 6 mIU/mL High 1-3 [facility] Comment on above: Performed By: #### L 700.8000 ####[facility] [address] [place], [address] HCG ( test) QlOrder ed By: Isabel Marino on 04-03-2024 Human Chorionic Gonadotropin, Quant 8 mIU/mL High <4 [facility] hCG Titer Quant., Serumon HCG QUANT. 8 mIU/mL High 1-3 [facility] Comment on above: Performed By: #### L 700.8000 ####[facility] [address] [place], [address] Absolute neutrophil countOrd ered By: Royce Chapin on 04-01-2024 Neutrophils (Bld) [#/Vol] 2.4 10*3/uL 2.0-7.7 [facility] Basic Metabolic Profile (BMP )on 04-01-2024 BUN/CRE 17.1 RATIO Normal - [facility] Comment on above: Performed By: #### L 100.0100, L500.2500, L700.8000 ####[facility] [address] [place], [address] CA,Total 9.2 mg/dL Normal 8.5-10.1 [facility] Comment on above: Performed By: #### L 100.0100, L500.2500, L700.8000 ####[facility] [address] [place], [address] Chloride [Moles/Vol] 108 mmol/L High 98-107 [facility] Comment on above: Performed By: #### L 100.0100, L500.2500, L700.8000 ####[facility] [address] [place], [address] CO2 [Moles/Vol] 29.0 mmol/L Normal 21.0-32.0 [facility] Comment on above: Performed By: #### L 100.0100, L500.2500, L700.8000 ####[facility] [address] [place], [address] Creatinine [Mass/Vol] 0.88 mg/dL Normal 0.55-1.02 [facility] Comment on above: Result Comment: The validity of the calculated GFR GFRAA in patients over 70 years has not been determined. Clinical correlation is essential. Performed By: #### L 100.0100, L500.2500, L700.8000 ####[facility] [address] [place], [address] ECRCL 99.21 ml/min Normal [facility] Comment on above: Performed By: #### L 100.0100, L500.2500, L700.8000 ####[facility] [address] [place], [address] EST GFR - AA 96 mL/min Normal >60 [facility] Comment on above: Result Comment: Afri can Togolese GFR Calc Performed By: #### L 100.0100, L500.2500, L700.8000 ####[facility] [address] [place], [address] GAP 2 Low 5-15 [facility] Comment on above: Performed By: #### L 100.0100, L500.2500, L700.8000 ####[facility] [address] [place], [address] GFR/1.73 sq M.predicted among non-blacks MDRD (S/P/Bld) [Vol rate/Area] 79 mL/min/{1.73_m2} Normal >60 [facility] Comment on above: Result Comment: Non- GFR Calc Performed By: #### L 100.0100, L500.2500, L700.8000 ####[facility] [address] [place], [address] Glucose [Mass/Vol] 91 mg/dL Normal 74-106 [facility] Comment on above: Performed By: #### L 100.0100, L500.2500, L700.8000 ####[facility] [address] [place], [address] Potassium [Moles/Vol] 3.6 mmol/L Normal 3.5-5.1 [facility] Comment on above: Performed By: #### L 100.0100, L500.2500, L700.8000 ####[facility] [address] [place], [address] Sodium [Moles/Vol] 139 mmol/L Normal 136-145 [facility] Comment on above: Performed By: #### L 100.0100, L500.2500, L700.8000 ####[facility] [address] [place], [address] Urea nitrogen [Mass/Vol] 15 mg/dL Normal 7-18 [facility] Comment on above: Performed By: #### L 100.0100, L500.2500, L700.8000 ####[facility] [address] [place], [address] Basophil percentageOrdered B y: Royce Chapin on 04-01-2024 Basophils/100 WBC (Bld) 1.2 % High 0-1 [facility] Bilirubin Test strip Ql (U)O rdered By: Royce Chapin on 04-01-2024 Bilirubin Ql (U) Negative Negative [facility] Blood urea nitrogen (BUN)/cr eatinine ratioOrdered By: Royce Chapin on 04-01-2024 Urea nitrogen/Creatinine [Mass ratio] 17.1 mg/mg 10-20 [facility] CBC W/Diff, Automatedon 03-15 Absolute Lymph 1.45 X10 3/uL Normal 0.83-4.51 [facility] Comment on above: Performed By: #### L 100.0100, L500.2500, L700.8000 ####[facility] [address] [place], [address] Absolute Neut 2.4 X10 3/uL Normal 2.0-7.7 [facility] Comment on above: Performed By: #### L 100.0100, L500.2500, L700.8000 ####[facility] [address] [place], [address] Basophils/100 WBC (Bld) 1.2 % High 0-1 [facility] Comment on above: Performed By: #### L 100.0100, L500.2500, L700.8000 ####[facility] [address] [place], [address] Eosinophils/100 WBC (Bld) 8.1 % High 0-5 [facility] Comment on above: Performed By: #### L 100.0100, L500.2500, L700.8000 ####[facility] [address] [place], [address] Erythrocyte distribution width (RBC) [Ratio] 11.4 % Low 11.6-14.6 [facility] Comment on above: Performed By: #### L 100.0100, L500.2500, L700.8000 ####[facility] [address] [place], [address] Hematocrit (Bld) [Volume fraction] 40.6 % Normal 37-47 [facility] Comment on above: Performed By: #### L 100.0100, L500.2500, L700.8000 ####[facility] [address] [place], [address] Hemoglobin (Bld) [Mass/Vol] 13.9 g/dL Normal 12.0-15.0 [facility] Comment on above: Performed By: #### L 100.0100, L500.2500, L700.8000 ####[facility] [address] [place], [address] IG% 0.200 Normal 0.0-0.9 [facility] Comment on above: Result Comment: IG% - Immature Granulocytes (promyelocytes, myelocytes and metamyelocytes) > 1% indicates that a LEFT SHIFT is Present. Performed By: #### L 100.0100, L500.2500, L700.8000 ####[facility] [address] [place], [address] Lymphocytes/100 WBC (Bld) 28.7 % Normal 19-41 [facility] Comment on above: Performed By: #### L 100.0100, L500.2500, L700.8000 ####[facility] [address] [place], [address] MCH (RBC) [Entitic mass] 33.6 pg High 27.0-32.0 [facility] Comment on above: Performed By: #### L 100.0100, L500.2500, L700.8000 ####[facility] [address] [place], [address] MCHC (RBC) [Mass/Vol] 34.2 g/dL Normal 32-36 [facility] Comment on above: Performed By: #### L 100.0100, L500.2500, L700.8000 ####[facility] [address] [place], [address] MCV (RBC) [Entitic vol] 98.1 fL Normal 81-99 [facility] Comment on above: Performed By: #### L 100.0100, L500.2500, L700.8000 ####[facility] [address] [place], [address] Monocytes/100 WBC (Bld) 14.7 % High 0-10 [facility] Comment on above: Performed By: #### L 100.0100, L500.2500, L700.8000 ####[facility] [address] [place], [address] Neutrophils/100 WBC (Bld) 47.1 % Normal 47-70 [facility] Comment on above: Performed By: #### L 100.0100, L500.2500, L700.8000 ####[facility] [address] [place], [address] Nucleated RBC (Bld) [#/Vol] 0 10*3/uL Normal 0-5 [facility] Comment on above: Performed By: #### L 100.0100, L500.2500, L700.8000 ####[facility] [address] [place], [address] Platelet mean volume (Bld) [Entitic vol] 9.1 fL Normal 6.2-12.0 [facility] Comment on above: Performed By: #### L 100.0100, L500.2500, L700.8000 ####[facility] [address] [place], [address] Platelets (Bld) [#/Vol] 306 10*3/uL Normal 150-450 [facility] Comment on above: Performed By: #### L 100.0100, L500.2500, L700.8000 ####[facility] [address] [place], [address] RBC (Bld) [#/Vol] 4.14 10*6/uL Low 4.2-5.4 [facility] Comment on above: Performed By: #### L 100.0100, L500.2500, L700.8000 ####[facility] [address] [place], [address] RDW SD 41.4 fl Normal 35.1-43.9 [facility] Comment on above: Performed By: #### L 100.0100, L500.2500, L700.8000 ####[facility] [address] [place], [address] WBC (Bld) [#/Vol] 5.1 10*3/uL Normal 4.4-11.0 [facility] Comment on above: Performed By: #### L 100.0100, L500.2500, L700.8000 ####[facility] [address] [place], [place], [address] Carbon dioxide measurementOr dered By: Royce Chapin on 04-01-2024 CO2 [Moles/Vol] 29.0 mmol/L 21.0-32.0 [facility] Chloride measurementOrdered By: Royce Chapin on 04-01-2024 Chloride [Moles/Vol] 108 mmol/L High 98-107 [facility] Emergency Department Summary on 04-01-2024 Emergency Department Summary [facility] Medical Records Department [address] [place] [address] Emergency Department Summary 04/01/24 MR#: [id number] Acct: [id number] Name: HANNAH HENDRICKS Rep #: [id number] : 1990 34 From: Royce Chapin DO [...] fevers or chills. Patient denies any dysuria. 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 Normal [facility] Eosinophil percentageOrdered By: Royce Chapin on 04-01-2024 Eosinophils/100 WBC (Bld) 8.1 % High 0-5 [facility] Epithelial cells.squamous LM Ql (Urine sed)Ordered By: Royce Chapin on 04-01-2024 Epithelial cells.squamous LM.HPF (Urine sed) [#/Area] 0 /[HPF] 5-10 [facility] Erythrocyte distribution wid th ratioOrdered By: Royce Chapin on 04-01-2024 Erythrocyte distribution width (RBC) [Ratio] 11.4 % Low 11.6-14.6 [facility] Erythrocyte distribution wid th standard deviationOrdered By: Royce Chapin on 04-01-2024 Erythrocyte distribution width (RBC) [Entitic vol] 41.4 fL 35.1-43.9 [facility] Estimated glomerular filtrat ion rate (GFR) AmericanOrdered By: Royce Chapin on 04-01-2024 Estimated GFR (MDRD) Amer 96 mL/min >60 [facility] Comment on above: GFR Calc Estimation of creatinine brad aranceOrdered By: Royce Chapin on 04-01-2024 Estimated Creatinine Clearance Calc 99.21 ml/min [facility] Glomerular filtration rate ( GFR) estimationOrdered By: Royce Chapin on 04-01-2024 Estimated GFR (MDRD) Non-Af Amer 79 mL/min >60 [facility] Comment on above: Non- GFR Calc Glucose Ql (U)Ordered By: Niko Chapin on 04-01-2024 Urine Glucose (UA) Normal mg/dl Normal [facility] Glucose measurementOrdered B y: Royce Chapin on 04-01-2024 Glucose [Mass/Vol] 91 mg/dL 74-106 [facility] HCG ( test) QlOrder ed By: Royce Chapin on 04-01-2024 Human Chorionic Gonadotropin, Quant 9 mIU/mL High <4 [facility] Hematocrit Auto (Bld) [Volum e fraction]Ordered By: Royce Chapin on 04-01-2024 Hematocrit (Bld) [Volume fraction] 40.6 % 37-47 [facility] Hemoglobin measurementOrdere d By: Royce Chapin on 04-01-2024 Hemoglobin (Bld) [Mass/Vol] 13.9 g/dL 12.0-15.0 [facility] Immature granulocytes/100 WB C Auto (Bld)Ordered By: Royce Chapin on 04-01-2024 Immature granulocytes/100 WBC (Bld) 0.200 % 0.0-0.9 [facility] Comment on above: IG% - Immature Granu locytes (promyelocytes, myelocytes and metamyelocytes) > 1% indicates that a LEFT SHIFT is Present. Ketones Test strip Ql (U)Ord ered By: Royce Chapin on 04-01-2024 Ketones Ql (U) Negative Negative [facility] Lymphocytes Auto (Unsp spec) [#/Vol]Ordered By: Royce Chapin on 04-01-2024 Lymphocytes (Bld) [#/Vol] 1.45 10*3/uL 0.83-4.51 [facility] Lymphocytes/100 WBC Auto (Un sp spec)Ordered By: Royce Chapin on 04-01-2024 Lymphocytes/100 WBC (Bld) 28.7 % 19-41 [facility] MCV (mean corpuscular volume ) determinationOrdered By: Royce Chapin on 04-01-2024 MCV (RBC) [Entitic vol] 98.1 fL 81-99 [facility] Mean corpuscular hemoglobin (MCH) determinationOrdered By: Royce Chapin on 04-01-2024 MCH (RBC) [Entitic mass] 33.6 pg High 27.0-32.0 [facility] Mean corpuscular hemoglobin concentration (MCHC) determinationOrdered By: Royce Chapin on 04-01-2024 MCHC (RBC) [Mass/Vol] 34.2 g/dL 32-36 [facility] Mean platelet volume determi nationOrdered By: Royce Chapin on 04-01-2024 Platelet mean volume (Bld) [Entitic vol] 9.1 fL 6.2-12.0 [facility] Microscopic analysis of urin e for red blood cells (RBC)Ordered By: Royce Chapin on 04-01-2024 Urine RBC 10-25 SEEN /hpf 0-5 [facility] Monocyte percentageOrdered B y: Royce Chapin on 04-01-2024 Monocytes/100 WBC (Bld) 14.7 % High 0-10 [facility] Mucus LM Ql (Urine sed)Order ed By: Royce Chapin on 04-01-2024 Mucus Ql (Urine sed) 1+ /hpf [facility] Neutrophil percentageOrdered By: Royce Chapin on 04-01-2024 Neutrophils/100 WBC (Bld) 47.1 % 47-70 [facility] Nitrite Test strip Ql (U)Ord ered By: Royce Chapin on 04-01-2024 Nitrite Ql (U) Negative Negative [facility] Nucleated red blood cell per centageOrdered By: Royce Chapin on 04-01-2024 Nucleated RBC/100 WBC (Bld) [Ratio] 0 % 0-5 [facility] Platelet countOrdered By: Niko Chapin on 04-01-2024 Platelets (Bld) [#/Vol] 306 10*3/uL 150-450 [facility] Potassium measurementOrdered By: Royce Chapin on 04-01-2024 Potassium [Moles/Vol] 3.6 mmol/L 3.5-5.1 [facility] Protein Test strip Ql (U)Ord ered By: Royce Chapin on 04-01-2024 Protein Ql (U) 30 mg/dl High Negative [facility] RBC Auto (Bld) [#/Vol]Ordere d By: Royce Chapin on 04-01-2024 RBC (Bld) [#/Vol] 4.14 10*6/uL Low 4.2-5.4 [facility] Serum anion gap measurementO rdered By: Royce Chapin on 04-01-2024 Anion gap [Moles/Vol] 2 mmol/L Low 5-15 [facility] Serum or plasma calcium tiffanie urement (mass/volume)Ordered By: Royce Chapin on 04-01-2024 Calcium [Mass/Vol] 9.2 mg/dL 8.5-10.1 [facility] Serum or plasma creatinine m easurement (mass/volume)Ordered By: Royce Chapin on 04-01-2024 Creatinine [Mass/Vol] 0.88 mg/dL 0.55-1.02 [facility] Comment on above: The validity of the calculated GFR & GFRAA in patients over 70 years has not been determined. Clinical correlation is essential. Serum or plasma urea nitroge n measurement (mass/volume)Ordered By: Royce Chapin on 04-01-2024 Urea nitrogen [Mass/Vol] 15 mg/dL - [facility] Sodium levelOrdered By: Royce Chapin on 04-01-2024 Sodium [Moles/Vol] 139 mmol/L 136-145 [facility] Transvaginal w/Preg USon Transvaginal w/Preg US [facility] [address] [place] [address] Transvaginal w/Preg US MR#: [id number] Acct: [id number] Name: HANNAH HENDRICKS Rep #: [id number] : 1990 F 34 From: Andi Bliss MD PCP: Dr. Thomas Salinas MD Status: [facility] ER Study: Transvaginal w/Preg US Date of Exam: 04/01/24 Exam# [id number] Ordering Dr: Royce Chapin DO [id number] STUDY: FIRST TRIMESTER OBSTETRICAL ULTRASOUND REASON FOR [...] 19:06 EST Reading Location ID and State: [address] [place] [address] Tel , Service support , CC: Dr. Ryoce Chapin DO; Dr. Thomas Salinas MD Awake Overnight Monitor: Signed Normal [facility] Urinalysis, Completeon 04-01 BACTERIA 1+ /hpf Normal None Seen [facility] Comment on above: Order Comment: CLEAN CATCH Performed By: #### L 400.0001 #### [facility] [address] [place], [address] EPI,SQUAMOUS 0-5 SEEN Normal 5-10 [facility] Comment on above: Order Comment: CLEAN CATCH Performed By: #### L 400.0001 #### [facility] [address] [place], [address] Mucus Ql (Urine sed) 1+ /hpf Normal [facility] Comment on above: Order Comment: CLEAN CATCH Performed By: #### L 400.0001 #### [facility] [address] [place], [address] RBC 10-25 SEEN Normal 0-5 [facility] Comment on above: Order Comment: CLEAN CATCH Performed By: #### L 400.0001 #### [facility] [address] [place], [address] WBC 5-10 SEEN Normal 0-5 [facility] Comment on above: Order Comment: CLEAN CATCH Performed By: #### L 400.0001 #### [facility] [address] [place], [place], [address] Urine blood detectionOrdered By: Royce Chapin on 04-01-2024 Urine Occult Blood 250 /ul High Negative [facility] Urine clarityOrdered By: Lauren Chapin on 04-01-2024 Clarity (U) Sl. Cloudy Clear [facility] Urine color determinationOrd ered By: Royce Chapin on 04-01-2024 Color (U) Yellow Yellow [facility] Urine leukocyte esterase det ection by dipstickOrdered By: Royce Chapin on 04-01-2024 Leukocyte esterase Test strip Ql (U) 25 /ul High Negative [facility] Urine pHOrdered By: Royce adam on 04-01-2024 pH (U) 7.0 [pH] 5.0 - 8.0 [facility] Urine sediment bacteria coun t by microscopy (number/high power field)Ordered By: Royce Chapin on 04-01-2024 Bacteria LM.HPF (Urine sed) [#/Area] 1 /[HPF] None Seen [facility] Urine specific gravity measu rementOrdered By: Royce Chapin on 04-01-2024 Specific gravity (U) [Rel density] 1.015 1.002-1.030 [facility] Urobilinogen Ql (U)Ordered B y: Royce Chapin on 04-01-2024 Urine Urobilinogen Normal mg/dl Normal [facility] White blood cell (WBC) count Ordered By: Royce Chapin on 04-01-2024 WBC (Bld) [#/Vol] 5.1 10*3/uL 4.4-11.0 [facility] White blood cell countOrdere d By: Royce Chapin on 04-01-2024 Urine WBC 5-10 SEEN /hpf 0-5 [facility] hCG Titer Quant., Serumon HCG QUANT. 9 mIU/mL High 1-3 [facility] Comment on above: Performed By: #### L 100.0100, L500.2500, L700.8000 ####[facility] [address] [place], [address] C diff Tox gens Stl Ql YANDY+p robeon 07-29-2023 C. difficile toxin genes YANDY+probe Ql (Stl) Negative Normal Negative for C. difficile toxin by PCR [facility] Comment on above: Order Comment: Speci men Type: STOOL SPECIMEN Ordering Facility: [facility] Address: [address] [place] [address] Performed By: #### 5 4067-4 #### [facility] CLIA [id number] [address] [place] [address] [place] Gastrointestinal pathogens i dentified YANDY+probe Nom (Stl)on 07-29-2023 Campylobacter sp DNA YANDY+probe Nom (Unsp spec) Not detected Normal Not Detected [facility] Comment on above: Order Comment: Speci men Type: STOOL SPECIMEN Ordering Facility: [facility] Address: [address] [place] [address] Performed By: #### 7 9390-1 #### [facility] CLIA [id number] [address] [place] [address] [place] Salmonella sp DNA YANDY+probe Ql (Unsp spec) Not detected Normal Not Detected [facility] Comment on above: Order Comment: Speci men Type: STOOL SPECIMEN Ordering Facility: [facility] Address: [address] [place] [address] Performed By: #### 7 9390-1 #### [facility] CLIA [id number] [address] [place] [address] Shiga toxin stx gene YANDY+probe Nom (Unsp spec) Not detected Normal Not Detected [facility] Comment on above: Order Comment: Speci men Type: STOOL SPECIMEN Ordering Facility: [facility] Address: [address] [place] [address] Performed By: #### 7 9390-1 #### [facility] CLIA [id number] [address] [place] [address] Shigella sp DNA YANDY+probe Ql (Unsp spec) Not detected Normal Not Detected [facility] Comment on above: Order Comment: Speci men Type: STOOL SPECIMEN Ordering Facility: [facility] Address: [address] [place] [address] Performed By: #### 7 9390-1 #### [facility] CLIA [id number] [address] [place] [address] OF CEM O+P Spec Microon 07-29-2023 Ova and parasites identified LM Nom (Unsp spec) OVA AND PARASITE EXAM: No Parasites Seen Normal [facility] Comment on above: Performed By: #### 6 73-4 #### [facility] CLIA [id number] [address] [place] [address] OF CEM CNOVon 07-27-2023 CNOV Office Visit ([facility] ) HANNAH [id number]) 1990 F Date Time Provider Department 07/27/23 10:50 AM DIANA TRE[facility] During your visit today, we recorded the following information about you: Temperature Pulse Respiration Blood pressure 97.7 degrees 98/minute 18/minute 117/69 Weight 73 kg Diana TrejoAPRN.CHALK TESTER 07/27/2023 12:13 PM Addendum Assessment and Plan: [...] other new or worsening symptoms. Diana Trejo APRN.CHALK TESTER 07/27/2023 12:13 PM Signed [facility] Visit Patient Name: Hannah Hendricks Primary Care Physician: Thomas Salinas MD Service Date: 07/27/2023 SUBJECTIVE: Hannah is an pleasant otherwise well 33 year old female who is here today accompanied by her Mom for evaluation of symptom(s)/complaint( s) as below. Presenting with concern of persistent diarrhea since 07/24/2023. Traveled for work recently to [place]. Had salmon Saturday evening upon arrival to [...] Take 1 (more content not included)... Normal [facility] ALLIED HEALTHon 05-16-2023 ALLIED HEALTH HNO ID: [id number] Author: AMANDA AMARAL CT Service: Radiology Author [...] PATIENT PRESENTS WITH AN IMPLANTABLE OR ATTACHED DEVELOPMENTAL MATHEMATICS INSTRUCTOR: No RADIOLOGY DEPARTMENT: CT; Exam(s) Completed: Brain PERIPHERAL IV DATA: Not applicable SIGNED BY: SIMON Quinn May 16, 2023 4:33 PM Normal [facility] CBC W Auto Differential pane l (Bld)on 05-16-2023 Basophils (Bld) [#/Vol] 0.04 10*3/uL Normal <0.11 [facility] Comment on above: Order Comment: Speci men Type: BLOOD SPECIMENOrdering Facility: [facility] Address: [address] [place] [address] Performed By: #### 5 7021-8 ####[facility] [id number] [place] [address] [place] Basophils/100 WBC (Bld) 0.6 % Normal [facility] Comment on above: Order Comment: Speci men Type: BLOOD SPECIMENOrdering Facility: [facility] Address: [address] [place] [address] Performed By: #### 5 7021-8 ####[facility] [id number] [address] [place] Differential cell count method Nom (Bld) Auto Normal [facility] Comment on above: Order Comment: Speci men Type: BLOOD SPECIMENOrdering Facility: [facility] Address: [address] [place] [address] Performed By: #### 5 7021-8 ####[facility]ORYCLIA [id number] [place] [address] [place] Eosinophils (Bld) [#/Vol] 0.61 10*3/uL High <0.46 [facility] Comment on above: Order Comment: Speci men Type: BLOOD SPECIMENOrdering Facility: [facility] Address: [address] [place] [address] Performed By: #### 5 7021-8 ####[facility]ORYCLIA [id number] [address] [place] Eosinophils/100 WBC (Bld) 8.4 % Normal [facility] Comment on above: Order Comment: Speci men Type: BLOOD SPECIMENOrdering Facility: [facility] Address: [address] [place] [address] Performed By: #### 5 7021-8 ####[facility]ORYCLIA [id number] [address] [place] Erythrocyte distribution width (RBC) [Ratio] 11.6 % Normal 11.5-15.0 [facility] Comment on above: Order Comment: Speci men Type: BLOOD SPECIMENOrdering Facility: [facility] Address: [address] [place] [address] Performed By: #### 5 7021-8 ####[facility]ORYCLIA [id number] [address] [place] Hematocrit (Bld) [Volume fraction] 37.8 % Normal 36.0-46.0 [facility] Comment on above: Order Comment: Speci men Type: BLOOD SPECIMENOrdering Facility: [facility] Address: [address] [place] [address] Performed By: #### 5 7021-8 ####[facility]ORYCLIA [id number] [place] [address] [place] Hemoglobin (Bld) [Mass/Vol] 12.9 g/dL Normal 11.5-15.5 [facility] Comment on above: Order Comment: Speci men Type: BLOOD SPECIMENOrdering Facility: [facility] Address: [address] [place] [address] Performed By: #### 5 7021-8 ####[facility]ORYCLIA [id number] [place] [address] [place] Immature granulocytes (Bld) [#/Vol] 10*3/uL Normal <0.10 [facility] Comment on above: Order Comment: Speci men Type: BLOOD SPECIMENOrdering Facility: [facility] Address: [address] [place] [address] Performed By: #### 5 7021-8 ####[facility]ORYCLIA [id number] [address] OF [place]EM Immature granulocytes/100 WBC (Bld) 0.1 % Normal [facility] Comment on above: Order Comment: Speci men Type: BLOOD SPECIMENOrdering Facility: [facility] Address: [address] [place] [address] Performed By: #### 5 7021-8 ####[facility]ORYCLIA [id number] [place] [address] [place] Lymphocytes (Bld) [#/Vol] 2.34 10*3/uL Normal 1.00-4.00 [facility] Comment on above: Order Comment: Speci men Type: BLOOD SPECIMENOrdering Facility: [facility] Address: [address] [place] [address] Performed By: #### 5 7021-8 ####[facility]ORYCLIA [id number] [address] OF CEM Lymphocytes/100 WBC (Bld) 32.3 % Normal [facility] Comment on above: Order Comment: Speci men Type: BLOOD SPECIMENOrdering Facility: [facility] Address: [address] [place] [address] Performed By: #### 5 7021-8 ####[facility]ORYCLIA [id number] [address] MCH (RBC) [Entitic mass] 33.1 pg Normal 26.0-34.0 [facility] Comment on above: Order Comment: Speci men Type: BLOOD SPECIMENOrdering Facility: [facility] Address: [address] [place] [address] Performed By: #### 5 7021-8 ####[facility]ORYCLIA [id number] [address] OF CEM MCHC (RBC) [Mass/Vol] 34.1 g/dL Normal 30.5-36.0 [facility] Comment on above: Order Comment: Speci men Type: BLOOD SPECIMENOrdering Facility: [facility] Address: [address] [place] [address] Performed By: #### 5 7021-8 ####[facility]ATORYCLIA [id number] [address] MCV (RBC) [Entitic vol] 96.9 fL Normal 80.0-100.0 [facility] Comment on above: Order Comment: Speci men Type: BLOOD SPECIMENOrdering Facility: [facility] Address: [address] [place] [address] Performed By: #### 5 7021-8 ####[facility]ORYCLIA [id number] [address] Monocytes (Bld) [#/Vol] 0.97 10*3/uL High <0.87 [facility] Comment on above: Order Comment: Speci men Type: BLOOD SPECIMENOrdering Facility: [facility] Address: [address] [place] [address] Performed By: #### 5 7021-8 ####[facility]ATORYCLIA [id number] [address] Monocytes/100 WBC (Bld) 13.4 % Normal [facility] Comment on above: Order Comment: Speci men Type: BLOOD SPECIMENOrdering Facility: [facility] Address: [address] [place] [address] Performed By: #### 5 7021-8 ####[facility]ATORYCLIA [id number] [place] [address] [place] Neutrophils (Bld) [#/Vol] 3.27 10*3/uL Normal 1.45-7.50 [facility] Comment on above: Order Comment: Speci men Type: BLOOD SPECIMENOrdering Facility: [facility] Address: [address] [place] [address] Performed By: #### 5 7021-8 ####[facility]ATORYCLIA [id number] [place] [address] [place] Neutrophils/100 WBC (Bld) 45.2 % Normal [facility] Comment on above: Order Comment: Speci men Type: BLOOD SPECIMENOrdering Facility: [facility] Address: [address] [place] [address] Performed By: #### 5 7021-8 ####[facility]ATORYCLIA [id number] [place] [address] [place] Nucleated RBC (Bld) [#/Vol] 10*3/uL Normal <0.01 [facility] Comment on above: Order Comment: Speci men Type: BLOOD SPECIMENOrdering Facility: [facility] Address: [address] [place] [address] Performed By: #### 5 7021-8 ####[facility]ATORYCLIA [id number] [address] OF [place] Nucleated RBC/100 WBC (Bld) [Ratio] 0.0 /100 WBC Normal [facility] Comment on above: Order Comment: Speci men Type: BLOOD SPECIMENOrdering Facility: [facility] Address: [address] [place] [address] Performed By: #### 5 7021-8 ####[facility]ATORYCLIA [id number] [place] [address] [place] Platelet mean volume (Bld) [Entitic vol] 9.2 fL Normal 9.0-12.7 [facility] Comment on above: Order Comment: Speci men Type: BLOOD SPECIMENOrdering Facility: [facility] Address: [address] [place], [place] [address] Performed By: #### 5 7021-8 ####[facility]ORATORYCLIA [id number] [place] [address] [place] [facility] OF CEM Platelets (Bld) [#/Vol] 298 10*3/uL Normal 150-400 [facility] Comment on above: Order Comment: Speci men Type: BLOOD SPECIMENOrdering Facility: [facility] Address: [address] [place] [address] Performed By: #### 5 7021-8 ####[facility]ATORYCLIA [id number] [place] [address] [place] RBC (Bld) [#/Vol] 3.90 10*6/uL Normal 3.90-5.20 [facility] Comment on above: Order Comment: Speci men Type: BLOOD SPECIMENOrdering Facility: [facility] Address: [address] [place] [address] Performed By: #### 5 7021-8 ####[facility]ATORYCLIA [id number] [address] [place] WBC (Bld) [#/Vol] 7.24 10*3/uL Normal 3.70-11.00 [facility] Comment on above: Order Comment: Speci men Type: BLOOD SPECIMENOrdering Facility: [facility] Address: [address] [place] [address] Performed By: #### 5 7021-8 ####[facility]ATORYCLIA [id number] [address] [place] [address] BRAIN WO IVCONon 05-16-[address] BRAIN WO IVCON * * *Final Report* * * DATE OF EXAM: May 16 2023 4:35PM [facility] [place] [place] BRAIN WO IVCON / [...] base and imaged soft tissues are unremarkable. [employer] Operations Specialist (topogram) images: No additional findings. IMPRESSION: No CT evidence of acute intracranial abnormality. Awake Overnight Monitor: RAYSA Transcribe Date/Time: May 16 2023 5:13P Dictated by : CHRISTINA MONAHAN DO This examination was interpreted and the report reviewed and electronically signed by: CHRISTINA MONAHAN DO on May 16 2023 5:30PM EST [id number] N Normal [facility] Comprehensive metabolic 2000 panelon 05-16-2023 Albumin [Mass/Vol] 4.4 g/dL Normal 3.9-4.9 [facility] Comment on above: Order Comment: Carlos A villeda Type: BLOOD SPECIMENOrdering Facility: [facility] Address: [address] [place] [address] Performed By: #### L [id number], 92419-9, 18254-1 ####[facility]ORYCLIA [id number] [place] [address] [place] ALP [Catalytic activity/Vol] 50 U/L Normal 34-123 [facility] Comment on above: Order Comment: Carlos A villeda Type: BLOOD SPECIMENOrdering Facility: [facility] Address: [address] [place] [address] Performed By: #### L [id number], , ####[facility]ORATORYCLIA [id number] [place] [address] [place] ALT [Catalytic activity/Vol] 9 U/L Normal 7-38 [facility] Comment on above: Order Comment: Speci men Type: BLOOD SPECIMENOrdering Facility: [facility] [place] Address: [address] [place] [address] Performed By: #### L [id number], , ####[facility]AN LABORATORYCLIA [id number] [place] [address] [place] Anion gap [Moles/Vol] 8 mmol/L Low 9-18 [facility] Comment on above: Order Comment: Speci men Type: BLOOD SPECIMENOrdering Facility: [facility] [place] Address: [address] [place] [address] Performed By: #### L [id number], , ####URBAN LABORATORYCLIA [id number] [address] STATES [facility] AST [Catalytic activity/Vol] 19 U/L Normal 13-35 [facility] Comment on above: Order Comment: Speci men Type: BLOOD SPECIMENOrdering Facility: [facility] [place] Address: [address] [place] [address] Performed By: #### L [id number], , ####URBAN LABORATORYCLIA [id number] [place] [address] [place] Bilirubin [Mass/Vol] 0.4 mg/dL Normal 0.2-1.3 [facility] Comment on above: Order Comment: Speci men Type: BLOOD SPECIMENOrdering Facility: [facility] [place] Address: [address] [place] [address] Performed By: #### L [id number], , ####URBAN LABORATORYCLIA [id number] [place] [address] [place] Calcium [Mass/Vol] 8.8 mg/dL Normal 8.5-10.2 [facility] Comment on above: Order Comment: Speci men Type: BLOOD SPECIMENOrdering Facility: [facility] [place] Address: [address] [place] [address] Performed By: #### L [id number], , ####URBAN LABORATORYCLIA [id number] [place] [address] [place] Chloride [Moles/Vol] 108 mmol/L High 97-105 [facility] Comment on above: Order Comment: Speci men Type: BLOOD SPECIMENOrdering Facility: [facility] [place] Address: [address] [place] [address] Performed By: #### L [id number], , ####URBAN LABORATORYCLIA [id number] [place] [address] [place] CO2 [Moles/Vol] 26 mmol/L Normal 22-30 [facility] Comment on above: Order Comment: Speci men Type: BLOOD SPECIMENOrdering Facility: [facility] [place] Address: [address] [place] [address] Performed By: #### L [id number], , ####URBAN LABORATORYCLIA [id number] [place] [address] [place] Creatinine [Mass/Vol] 0.76 mg/dL Normal 0.58-0.96 [facility] Comment on above: Order Comment: Speci men Type: BLOOD SPECIMENOrdering Facility: [facility] [place] Address: [address] [place] [address] Performed By: #### L [id number], , ####URBAN LABORATORYCLIA [id number] [address] Creatinine and Glomerular filtration rate.predicted panel (S/P/Bld) 108 mL/min/1.73m??? Normal >=60 [facility] Comment on above: Order Comment: Speci men Type: BLOOD SPECIMENOrdering Facility: [facility] [place] Address: [address] [place] [address] Result Comment: Vickie mated Glomerular Filtration Rate [...] reflect actual GFR. Performed By: #### L [id number], 72283-2, ####[facility] LABORATORYCLIA [id number] [place] [address] [place] Glucose [Mass/Vol] 80 mg/dL Normal 74-99 [facility] Comment on above: Order Comment: Speci men Type: BLOOD SPECIMENOrdering Facility: [facility] [place] Address: [address] [place], [place] [address] Result Comment: The [place] [employer] (ADA) provides guidance for cutoff [...] Standards of Medical Care in Diabetes 2016, [place] [employer]. Diabetes Care. 2016.39(Suppl 1). Performed By: #### L [id number], , ####[facility] LABORATORYCLIA [id number] [place] [address] [place] Potassium [Moles/Vol] 3.7 mmol/L Normal 3.7-5.1 [facility] Comment on above: Order Comment: Carlos A villeda Type: BLOOD SPECIMENOrdering Facility: [facility] [place] Address: [address] [place] [address] Performed By: #### L [id number], , ####URBAN LABORATORYCLIA [id number] [place] [address] [place] Protein [Mass/Vol] 6.8 g/dL Normal 6.3-8.0 [facility] Comment on above: Order Comment: Speci men Type: BLOOD SPECIMENOrdering Facility: [facility] [place] Address: [address] [place] [address] Performed By: #### L [id number], , ####URBAN LABORATORYCLIA [id number] [address] Sodium [Moles/Vol] 142 mmol/L Normal 136-144 [facility] Comment on above: Order Comment: Speci men Type: BLOOD SPECIMENOrdering Facility: [facility] [place] Address: [address] [place] [address] Performed By: #### L [id number], , ####URBAN LABORATORYCLIA [id number] [address] Urea nitrogen [Mass/Vol] 12 mg/dL Normal 7-21 [facility] Comment on above: Order Comment: Speci men Type: BLOOD SPECIMENOrdering Facility: [facility] [place] Address: [address] [place] [address] Performed By: #### L [id number], , ####URBAN LABORATORYCLIA [id number] [address] D dimer FEU PPP-mCncon 05-16 Fibrin D-dimer FEU (PPP) [Mass/Vol] 300 ng/mL FEU Normal <500 [facility] Comment on above: Order Comment: Speci men Type: BLOOD SPECIMENOrdering Facility: [facility] [place] Address: [address] [place] [address] Performed By: #### 4 8065-7 ####URBAN LABORATORYCLIA [id number] [address] ECG COMPLETEon 05-16-2023 ECG COMPLETE Ventricular Rate : 9 5 BPM Atrial Rate : 95 BPM P-R Interval : 146 ms QRS Duration : 100 ms Q-T Interval : 368 ms QTC Calculation(Bazett) : 462 ms Calculated P [place] : 73 degrees Calculated R [place] : 88 degrees Calculated T [place] : 64 degrees NORMAL SINUS RHYTHM INCOMPLETE RIGHT BUNDLE BRANCH BLOCK BORDERLINE ECG no stemi Confirmed by Steve SCOTT ERIKA ([id number]), mapping editor ASHWINI JACKSON (1940) on 05/17/2023 8:51:33 AM NAME : HANNAH HENDRICKS PID : [id number] : 1990 Gender : Female Race : ORD : [id number] Procedure Date : May 16 2023 15:03:41 Edit Date : May 17 2023 08:51:39 Diagnosis: NORMAL SINUS RHYTHM INCOMPLETE RIGHT BUNDLE BRANCH BLOCK BORDERLINE ECG no stemi Confirmed by Steve SCOTT ERIKA ([id number]), mapping editor ASHWINI JACKSON (1940) on 05/17/2023 8:51:33 AM Test Reason : Chest Pain Location : 1 : ER ED Overread By : Steve SCOTT ERIKA Edited By : ASHWINI JACKSON Referred By : , Acquired by : brown [facility] ED NOTEon 05-16-2023 ED NOTE HNO ID: [id number] Author: ESTEBAN MCFADDEN RN Service: Nursing Author Type: Registered Nurse Type: ED Notes Filed: 05/16/2023 18:59 Note Text: Pt discharged to home in stable condition. No noted distress - respirations equal and unlabored. AVS and medications reviewed. Pt verbalized understanding and importance of follow up care. No questions for this RN at this time. [facility] ED NOTE HNO ID: [id number] Author: DHARMESH DAVIS RN Service: ? Author [...] AANDOx3. Resolution of symptoms at this time. [facility] ED NOTE HNO ID: [id number] Author: ERIC GOFF RN Service: ? Author Type: Registered Nurse Type: ED Notes Filed: 05/16/2023 14:54 Note Text: Bed: ED-02 Expected date: Expected time: Means of arrival: [facility] Fire/EMS Comments: [facility] ED PROV NOTEon 05-16-2023 ED PROV NOTE HNO ID: [id number] Author: MAGDA SCOTT MD Service: ? Author Type: Physician Type: ED Provider Notes Filed: 05/16/2023 18:51 Note Text: ED Provider Note Patient Name: Hannah Hendricks : 1990 SERVICE DATE: 05/16/23 History Patient presents with: Dizziness: [place] flushed, dizzy, while using the restroom. Had [...] Abnormal; Notable for the following components: Abs [place] 0.97 (*) <0.87 k/uL Abs Eosin 0.61 (*) <0.46 k/uL All other components within normal limits HCG QUAL BLD - Normal HIGH SENSITIVITY TROPONIN T (INITIAL) MAGNESIUM BLD Procedures ED Course / Clinical Impression Clinical Impressions as of 05/16/23 1824 Sinus tach (more content not included)... Normal [facility] HCG QUAL BLDon 05-16-2023 HCG, QUALITATIVE Negative Normal Negative [facility] Comment on above: Order Comment: Carlos A villeda Type: BLOOD SPECIMENOrdering Facility: [facility] [place] Address: [address] [place] [address] Performed By: #### H CG ####[facility] LABORATORYCLIA [id number] [address] [place] HIGH SENSITIVITY TROPONIN T (INITIAL)on 05-16-2023 Troponin T.cardiac High sensitivity method [Mass/Vol] <6 Normal <12 [facility] Comment on above: Order Comment: Carlos A villeda Type: BLOOD SPECIMENOrdering Facility: [facility] [place] Address: [address] [place] [address] Result Comment: When assessing risk for acute [...] 30 day MACE. Performed By: #### L [id number], 89815-4, 73108-8 ####URBAN LABORATORYCLIA [id number] [place] [id number] [place] HIGH SENSITIVITY TROPONIN T (SECOND)on 05-16-2023 Troponin T.cardiac High sensitivity method [Mass/Vol] <6 Normal <12 [facility] Comment on above: Order Comment: Carlos A villeda Type: BLOOD SPECIMENOrdering Facility: [facility] [place] Address: [address] [place] [address] Result Comment: When assessing risk for acute [...] 30 day MACE. Performed By: #### L [id number] ####[facility] LABORATORYCLIA [id number] [place] [address] [place] Magnesium SerPl-mCncon 05-16 Magnesium [Mass/Vol] 2.0 mg/dL Normal 1.7-2.3 [facility] Comment on above: Order Comment: Speci men Type: BLOOD SPECIMENOrdering Facility: [facility] [place] Address: [facility] [place] [address] Performed By: #### L [id number], 35340-3, 06588-0 ####[facility] LABORATORYCLIA [id number] [place] [id number] [place] MRI LUMBAR SPINE [...] and assume there are 5 lumbar-type vertebrae. Awake Overnight Monitor: RAYSA Transcribe Date/Time: Mar 02 2023 2:18P Dictated by : ELLYN BERRY MD This examination was interpreted and the report reviewed and electronically signed by: ELLYN BERRY MD on Mar 02 2023 2:27PM EST [id number] N [facility] CNOVon 02-06-2023 CNOV Office Visit (NSFRVW ) HANNAH HENDRICKS ([id number]) 1990 F Date Time Provider Department 02/06/23 [...] Frequency: Continuous Continuous Intervention/Comfort measure: Medication;Reposition ;Relaxation;Education ;Exercise;Heat;Etl Informatica Developer y;Massage;Pillow support;Positioning;T herapeutic techniques-CPRP -- Pain Radiation: [...] Past Histories independently gathered by the clinical technical support intern and the remaining scribed note accurately describes my personal service to the patient (more content not included)... [facility] 01-30-2023 [facility] Telephone (NIQ) HANNAH HENDRICKS ([id number]) 1990 F Date Time Provider Department 01/30/23 [...] Fully Assessed Reason for Visit: Patient Question [5707] Prescriptions as of 04/23/2023 - methocarbamol (ROBAXIN-750) [...] Encounter Status:Closed by BRITT ENNIS on 04/23/23 [facility] CNTHERAPYon 12-31-2022 CNTHERAPY OT/PT/Speech Visit (PTMDRG) HANNAH HENDRICKS ([id number]) 1990 F Date Time Provider Department 12/31/22 6:00 PM NEHEMIAS SUAREZ PTMG Date Time Provider Department Center 12/31/2022 6:00 PM [id number], SCOTT PTMDRG [facility] Reason for Visit: PT Discharge [752] [...] route one time only. Placed September [address] [facility] CNTHERAPYon 11-28-2022 CNTHERAPY OT/PT/Speech Visit (PTMDRG) HANNAH HENDRICKS ([id number]) 1990 F Date Time Provider Department 11/28/22 6:00 PM NEHEMIAS SUAREZ PTMG Date Time Provider Department Center 11/28/2022 6:00 PM [id number], SCOTT PTMDRG [facility] Reason for Visit: PT Progress Note [6466] Primary Visit Diagnosis:Chronic bilateral low back pain [...] route one time only. Placed September [address] [facility] CNTHERAPYon 10-24-2022 CNTHERAPY OT/PT/Speech Visit (PTMDRG) HANNAH HENDRICKS ([id number]) 1990 F Date Time Provider Department 10/24/22 6:00 PM NEHEMIAS SUAREZ PTMDRG Date Time Provider Department Center 10/24/2022 6:00 PM [id number], SCOTT PTMDRG [facility] Reason for Visit: PT Progress Note [1596] [...] route one time only. Placed September [address] [facility] CNTHERAPYon 09-12-2022 CNTHERAPY OT/PT/Speech Visit (PTMDRG) HANNAH HENDRICKS ([id number]) 1990 F Date Time Provider Department 09/12/22 5:15 PM NEHEMIAS SUAREZ PTMG Date Time Provider Department [place] 09/12/2022 5:15 PM [id number], SCOTT PTMG [facility] Reason for Visit: PT Progress Note [5206] Primary Visit Diagnosis:Chronic bilateral low back pain [...] one time only. Placed September 2020 Normal [facility] CNTHERAPYon 08-29-2022 CNTHERAPY OT/PT/Speech Visit (PTMDRG) HANNAH HENDRICKS ([id number]) 1990 F Date Time Provider Department 08/29/22 5:45 PM JULIANO URIAS PTMDRG Date Time Provider Department Center 08/29/2022 5:45 PM [id number], SUSAN PTMDRG [facility] Reason for Visit: Physical Therapy [503] Primary [...] one time only. Placed September 2020 Normal [facility] CNTHERAPYon 08-15-2022 CNTHERAPY OT/PT/Speech Visit (PTMDRG) HANNAH HENDRICKS ([id number]) 1990 F Date Time Provider Department 08/15/22 6:00 PM NEHEMIAS SUAREZ PTMDRG Date Time Provider Department [place] 08/15/2022 6:00 PM [id number], SCOTT PTMDRG [facility] Reason for Visit: PT Progress Note [1596] [...] route one time only. Placed September [address] [facility] CNTHERAPYon 07-16-2022 CNTHERAPY OT/PT/Speech Visit (PTMDRG) HANNAH HENDRICKS ([id number]) 1990 F Date Time Provider Department 07/16/22 12:30 PM NEHEMIAS SUAREZ PTMG Date Time Provider Department [place] 07/16/2022 12:30 PM [id number], SCOTT PTMDRG [facility] Reason for Visit: PT Progress Note [1596] [...] route one time only. Placed September [address] [facility] CNTHERAPYon 07-09-2022 CNTHERAPY OT/PT/Speech Visit (PTMDRG) HANNAH HENDRICKS ([id number]) 1990 F Date Time Provider Department 07/09/22 12:30 PM NEHEMIAS SUAREZ PTMG Date Time Provider Department Center 07/09/2022 12:30 PM [id number], SCOTT PTMG [facility] Reason for Visit: Physical Therapy [503] Primary [...] route one time only. Placed September [address] [facility] CNTHERAPYon 07-02-2022 CNTHERAPY OT/PT/Speech Visit (PTMDRG) HANNAH HENDRICKS ([id number]) 1990 F Date Time Provider Department 07/02/22 1:45 PM JULIANO URIAS PTMG Date Time Provider Department [place] 07/02/2022 1:45 PM [id number], SUSAN PTMDRG [facility] Reason for Visit: Physical Therapy [503] Primary [...] route one time only. Placed September [address] [facility] CNTHERAPYon 06-25-2022 CNTHERAPY OT/PT/Speech Visit (PTMDRG) HANNAH HENDRICKS ([id number]) 1990 F Date Time Provider Department 06/25/22 4:30 PM NEHEMIAS SUAREZ [facility] Date Time Provider Department Center 06/25/2022 4:30 PM [id number], SCOTT PTMDRG [facility] Reason for Visit: Physical Therapy [503] Primary [...] route one time only. Placed September [address] [facility] CNTHERAPYon 06-18-2022 CNTHERAPY OT/PT/Speech Visit (PTMDRG) HANNAH HENDRICKS ([id number]) 1990 F Date Time Provider Department 06/18/22 12:30 PM NEHEMIAS SUAREZ PTMDRG Date Time Provider Department [place] 06/18/2022 12:30 PM [id number], SCOTT PTMDRG [facility] Reason for Visit: PT Progress Note [9846] Primary Visit Diagnosis:Chronic bilateral low back pain [...] route one time only. Placed September [address] [facility] CNTHERAPYon 06-11-2022 CNTHERAPY OT/PT/Speech Visit (PTMDRG) HANNAH HENDRICKS ([id number]) 1990 F Date Time Provider Department 06/11/22 12:15 PM JULIANO URIASG Date Time Provider Department [place] 06/11/2022 12:15 PM [id number], SUSAN PTMG [facility] Reason for Visit: Physical Therapy [503] Primary [...] route one time only. Placed September [address] [facility] CNTHERAPYon 06-04-2022 CNTHERAPY OT/PT/Speech Visit (PTMDRG) HANNAH HENDRICKS ([id number]) 1990 F Date Time Provider Department 06/04/22 12:15 PM JULIANO URIAS PTMDRG Date Time Provider Department Center 06/04/2022 12:15 PM [id number], SUSAN PTMDRG [facility] Reason for Visit: Physical Therapy [503] Primary [...] route one time only. Placed September [address] [facility] CNTHERAPYon 05-30-2022 CNTHERAPY OT/PT/Speech Visit (PTMDRG) HANNAH HENDRICKS ([id number]) 1990 F Date Time Provider Department 05/30/22 12:30 PM NEHEMIAS SUAREZ PTMG Date Time Provider Department Center 05/30/2022 12:30 PM [id number], SCOTT PTMDRG [facility] Reason for Visit: Physical Therapy [503] Primary [...] route one time only. Placed September [address] [facility] CNTHERAPYon 05-21-2022 CNTHERAPY OT/PT/Speech Visit (PTMDRG) HANNAH HENDRICKS ([id number]) 1990 F Date Time Provider Department 05/21/22 1:15 PM NEHEMIAS SUAREZ PTMG Date Time Provider Department Center 05/21/2022 1:15 PM [id number], SCOTT PTMG [facility] Reason for Visit: PT Progress Note [1596] [...] route one time only. Placed September 2020 [facility] 04-04-2022 [facility] Office Visit (NSFRVW ) HANNAH HENDRICKS ([id number]) 1990 F Date Time Provider Department 04/04/22 [...] Order(s):CONSULT TO PHYSICAL THERAPY [9032] Order #: [id number]: 1 FUTURE Prescriptions as of 04/06/2022 - [...] for Encounter Date Provider Department Center 04/04/2022 [id number], GHAI (more content not included)... Normal [facility] ANES POSTPROC EVALon 022 ANES POSTPROC EVAL HNO ID: [id number] Author: Lisette Tarango MD Service: Anesthesiology Author [...] March 20, 2022 TIME: 2:24 PM CSN: [id number] [facility] ANES PRE-OPon 03-20-2022 ANES PRE-OP HNO ID: [id number] Author: Kelechi Chavez MD Service: Anesthesiology Author [...] and consent discussed: yes. Patient / Responsible Republican agrees to proceed: yes Patient / Surrogate [...] March 20, 2022 TIME: 11:36 AM CSN: [id number] [facility] BRIEF OP NOTon 03-20-2022 BRIEF OP NOT HNO ID: [id number] Author: Konstantin Kirkland MD Service: Neurosurgery Author Type: Physician Type: Brief Op Note Filed: 03/20/2022 1:20 PM Note Text: BRIEF OPERATIVE / PROCEDURE NOTE LOG ID: [id number] SURGERY/PROCEDURE DATE: 03/20/2022 INCISION/PROCEDURE START TIME: 12:29 PM INCISION CLOSE/PROCEDURE END TIME: 1:14 PM SURGEON(S)/PROCEDURAL IST(S) AND EXPERIMENTAL TECHNICIAN(S): Surgeon(s) and Role: * Konstantin Kirkland MD [...] DATE: March 20, 2022 TIME: 1:06 PM [facility] HCG Preg Ur Qlon 03-20-2022 HCG ( test) Ql (U) Negative Normal Negative [facility] Comment on above: Order Comment: Speci men Type: URINE SPECIMENOrdering Facility: [facility] [place] Address: [address] [place] [phone] Result Comment: This test is intended to aid in the early detection of . Very dilute urine samples, as indicated by a low specific gravity, may not contain medical field representative levels of hCG. This test detects [...] for . Performed By: #### 2 106-3 ####[facility] LABORATORYCLIA [id number] [address] NURSING PROGon 03-20-2022 NURSING PROG HNO ID: [id number] Author: Ryanne Tracy RN Service: ? Author Type: Registered Nurse Type: Nursing Progress Note Filed: 03/20/2022 1:42 PM Note Text: Discharge Status: Patient is Awakening, and is no airway issues. Skin condition was WNL. Transported to recovery room via cart with siderails up. Accompanied by ict teacher and surgeon. [facility] NURSING PROG HNO ID: [id number] Author: Ryanne Tracy RN Service: ? Author [...] of exposure, and providing warm irrigation fluid. [facility] OPERATIVE NOon 03-20-2022 OPERATIVE NO HNO ID: [id number] Author: Konstantin Kirkland MD Service: Neurosurgery Author Type: Physician Type: Operative Report Filed: 03/20/2022 1:20 PM Note Text: OPERATIVE/PROCEDURE REPORT LOG ID: [id number] SURGERY/PROCEDURE DATE: 03/20/2022 INCISION/PROCEDURE START TIME: 12:29 PM INCISION CLOSE/PROCEDURE END TIME: 1:14 PM SURGEON(S)/PROCEDURAL IST(S) AND EXPERIMENTAL TECHNICIAN(S): Surgeon(s) and Role: * Konstantin Kirkland MD [...] DATE: March 20, 2022 TIME: 1:12 PM [facility] XR VERIFY LEVEL E-[id number]-[id number] 03-20-2022 XR VERIFY LEVEL L-SPINE-NB * * [...] phone and Skype during the surgical procedure. Awake Overnight [facility] Transcribe Date/Time: Mar 20 2022 1:14P Dictated by : SKY SCHWARTZ MD This examination was interpreted and the report reviewed and electronically signed by: SKY SCHWARTZ MD on Mar 20 2022 1:16PM EST [id number] [facility] Basic metabolic 2000 panelon 03-19-2022 Anion gap [Moles/Vol] 5 mmol/L Low 9-18 [facility] Comment on above: Order Comment: Speci men Type: BLOOD SPECIMENOrdering Facility: [facility] [place] Address: [address] [place] [phone] Performed By: #### 2 4321-2 ####TAOISM LABORATORYCLIA [id number] [address] [place], [place] [id number] [place] Calcium [Mass/Vol] 9.3 mg/dL Normal 8.5-10.2 [facility] Comment on above: Order Comment: Speci men Type: BLOOD SPECIMENOrdering Facility: [facility] [place] Address: [address] [place] [address] Performed By: #### 2 4321-2 ####[facility] LABORATORYCLIA [id number] [address] [place], [place] [id number] [place] Chloride [Moles/Vol] 103 mmol/L Normal 97-105 [facility] Comment on above: Order Comment: Speci men Type: BLOOD SPECIMENOrdering Facility: [facility] [place] Address: [address] [place] [address] Performed By: #### 2 4321-2 ####[facility] LABORATORYCLIA [id number] [address] [place] [address] [place] CO2 [Moles/Vol] 29 mmol/L Normal 22-30 [facility] Comment on above: Order Comment: Speci men Type: BLOOD SPECIMENOrdering Facility: [facility] [place] Address: [address] [place] [address] Performed By: #### 2 4321-2 ####[facility] LABORATORYCLIA [id number] [address] [place], [place] [id number] [place] Creatinine [Mass/Vol] 0.68 mg/dL Normal 0.58-0.96 [facility] Comment on above: Order Comment: Speci men Type: BLOOD SPECIMENOrdering Facility: [facility] [place] Address: [address] [place] [address] Performed By: #### 2 4321-2 ####TA[facility] LABORATORYCLIA [id number] [address] [place], [place] [id number] [place] ESTIMATED GLOMERULAR FILTRATION RATE 120 mL/min/1.73m??? Normal >=60 [facility] Comment on above: Order Comment: Speci men Type: BLOOD SPECIMENOrdering Facility: [facility] [place] Address: [address] [place] [address] Result Comment: Vickie mated Glomerular Filtration Rate [...] actual GFR. Performed By: #### 2 4321-2 ####TAOISM LABORATORYCLIA [id number] [place] [address] [place] Glucose [Mass/Vol] 90 mg/dL Normal 74-99 [facility] Comment on above: Order Comment: Carlos A villeda Type: BLOOD SPECIMENOrdering Facility: [facility] [facility] Address: [address] [place] [address] Result Comment: The [place] [employer] (ADA) provides guidance for cutoff [...] Standards of Medical Care in Diabetes 2016, [place] [employer]. Diabetes Care. 2016.39(Suppl 1). Performed By: #### 2 4321-2 ####[facility] LABORATORYCLIA [id number] [place] [id number] [place] Potassium [Moles/Vol] 4.1 mmol/L Normal 3.7-5.1 [facility] Comment on above: Order Comment: Carlos A villeda Type: BLOOD SPECIMENOrdering Facility: [facility] Address: [address] [place] [address] Performed By: #### 2 4321-2 ####[facility] LABORATORYCLIA [id number] [address] STATES [facility] Sodium [Moles/Vol] 137 mmol/L Normal 136-144 [facility] Comment on above: Order Comment: Speci men Type: BLOOD SPECIMENOrdering Facility: [facility] Address: [address] [place] [address] Performed By: #### 2 4321-2 ####[facility] LABORATORYCLIA [id number] [address] Urea nitrogen [Mass/Vol] 17 mg/dL Normal 7-21 [facility] Comment on above: Order Comment: Speci men Type: BLOOD SPECIMENOrdering Facility: [facility] Address: [address] [place] [address] Performed By: #### 2 4321-2 ####[facility] LABORATORYCLIA [id number] [address] STATES [facility] Anion gap [Moles/Vol] 5 mmol/L Low 9 - 18 mmol/L [facility] Calcium [Mass/Vol] 9.3 mg/dL 8.5 - 10. 2 mg/dL [facility] Chloride [Moles/Vol] 103 mmol/L 97 - 10 5 mmol/L [facility] CO2 [Moles/Vol] 29 mmol/L 22 - 30 mmol/L [facility] Creatinine [Mass/Vol] 0.68 mg/dL 0.58 - 0.96 mg/dL [facility] Estimated Glomerular Filtration Rate 120 mL/min/1.73m >=60 mL/min/1.73m [facility] Glucose [Mass/Vol] 90 mg/dL 74 - 99 mg/dL [facility] Potassium [Moles/Vol] 4.1 mmol/L 3.7 - 5.1 mmol/L [facility] Sodium [Moles/Vol] 137 mmol/L 136 - 144 mmol/L [facility] Urea nitrogen [Mass/Vol] 17 mg/dL 7 - 21 mg/d L [facility] CBC W Auto Differential pane l (Bld)on 03-19-2022 Basophils (Bld) [#/Vol] 0.04 10*3/uL Normal <0.11 [facility] Comment on above: Order Comment: Speci men Type: BLOOD SPECIMENOrdering Facility: [facility] Address: [address] [place] [address] Performed By: #### 5 7021-8 ####TAOISM LABORATORYCLIA [id number] [address] [place], [place] [id number] [place] Basophils/100 WBC (Bld) 0.6 % Normal [facility] Comment on above: Order Comment: Speci men Type: BLOOD SPECIMENOrdering Facility: [facility] Address: [address] [place] [address] Performed By: #### 5 7021-8 ####TA[facility] LABORATORYCLIA [id number] [address] [place] [address] [place] Differential cell count method Nom (Bld) Auto Normal [facility] Comment on above: Order Comment: Speci men Type: BLOOD SPECIMENOrdering Facility: [facility] Address: [address] [place] [address] Performed By: #### 5 7021-8 ####TAOISM LABORATORYCLIA [id number] [address] [place], [place] [id number] [place] Eosinophils (Bld) [#/Vol] 0.73 10*3/uL High <0.46 [facility] Comment on above: Order Comment: Speci men Type: BLOOD SPECIMENOrdering Facility: [facility] Address: [address] [place] [address] Performed By: #### 5 7021-8 ####[facility] LABORATORYCLIA [id number] [address] [place], [place] [address] [place] Eosinophils/100 WBC (Bld) 10.0 % Normal [facility] Comment on above: Order Comment: Speci men Type: BLOOD SPECIMENOrdering Facility: [facility] Address: [address] [place] [address] Performed By: #### 5 7021-8 ####[facility] LABORATORYCLIA [id number] [address] [place], [place] [address] [place] Erythrocyte distribution width (RBC) [Ratio] 11.8 % Normal 11.5-15.0 [facility] Comment on above: Order Comment: Speci men Type: BLOOD SPECIMENOrdering Facility: [facility] Address: [address] [place] [address] Performed By: #### 5 7021-8 ####TAOISM LABORATORYCLIA [id number] [address] [place], [place] [address] [place] Hematocrit (Bld) [Volume fraction] 41.7 % Normal 36.0-46.0 [facility] Comment on above: Order Comment: Speci men Type: BLOOD SPECIMENOrdering Facility: [facility] Address: [address] [place] [address] Performed By: #### 5 7021-8 ####TAOISM LABORATORYCLIA [id number] [address] [place] [address] [place] Hemoglobin (Bld) [Mass/Vol] 13.5 g/dL Normal 11.5-15.5 [facility] Comment on above: Order Comment: Speci men Type: BLOOD SPECIMENOrdering Facility: [facility] Address: [address] [place] [address] Performed By: #### 5 7021-8 ####TAOISM LABORATORYCLIA [id number] [place] [address] [place] Immature granulocytes (Bld) [#/Vol] 10*3/uL Normal <0.10 [facility] Comment on above: Order Comment: Speci men Type: BLOOD SPECIMENOrdering Facility: [facility] Address: [address] [place] [address] Performed By: #### 5 7021-8 ####TAOISM LABORATORYCLIA [id number] [place] [address] [place] Immature granulocytes/100 WBC (Bld) 0.1 % Normal [facility] Comment on above: Order Comment: Speci men Type: BLOOD SPECIMENOrdering Facility: [facility] Address: [address] [place] [address] Performed By: #### 5 7021-8 ####TAO[facility] LABORATORYCLIA [id number] [place] [address] [place] Lymphocytes (Bld) [#/Vol] 2.89 10*3/uL Normal 1.00-4.00 [facility] Comment on above: Order Comment: Speci men Type: BLOOD SPECIMENOrdering Facility: [facility] Address: [address] [place] [address] Performed By: #### 5 7021-8 ####TAOISM LABORATORYCLIA [id number] [address] STATES [facility] Lymphocytes/100 WBC (Bld) 39.8 % Normal [facility] Comment on above: Order Comment: Speci men Type: BLOOD SPECIMENOrdering Facility: [facility] Address: [address] [place] [address] Performed By: #### 5 7021-8 ####TAO[facility] LABORATORYCLIA [id number] [address] [place] MCH (RBC) [Entitic mass] 32.1 pg Normal 26.0-34.0 [facility] Comment on above: Order Comment: Speci men Type: BLOOD SPECIMENOrdering Facility: [facility] Address: [address] [place] [address] Performed By: #### 5 7021-8 ####TAO[facility] LABORATORYCLIA [id number] [address] [place] MCHC (RBC) [Mass/Vol] 32.4 g/dL Normal 30.5-36.0 [facility] Comment on above: Order Comment: Speci men Type: BLOOD SPECIMENOrdering Facility: [facility] Address: [address] Performed By: #### 5 7021-8 ####TAO[facility] LABORATORYCLIA [id number] [place] [address] [place] MCV (RBC) [Entitic vol] 99.3 fL Normal 80.0-100.0 [facility] Comment on above: Order Comment: Speci men Type: BLOOD SPECIMENOrdering Facility: [facility] Address: [address] Performed By: #### 5 7021-8 ####TAOISM LABORATORYCLIA [id number] [address] [place] [address] [place] Monocytes (Bld) [#/Vol] 0.64 10*3/uL Normal <0.87 [facility] Comment on above: Order Comment: Speci men Type: BLOOD SPECIMENOrdering Facility: [facility] Address: [address] Performed By: #### 5 7021-8 ####TAOISM LABORATORYCLIA [id number] [place] [address] [place] Monocytes/100 WBC (Bld) 8.8 % Normal [facility] Comment on above: Order Comment: Speci men Type: BLOOD SPECIMENOrdering Facility: [facility] Address: [address] Performed By: #### 5 7021-8 ####TAOISM LABORATORYCLIA [id number] [place] [id number] [place] Neutrophils (Bld) [#/Vol] 2.96 10*3/uL Normal 1.45-7.50 [facility] Comment on above: Order Comment: Speci men Type: BLOOD SPECIMENOrdering Facility: [facility] Address: [address] Performed By: #### 5 7021-8 ####TAOISM LABORATORYCLIA [id number] [address] [place] [address] [place] Neutrophils/100 WBC (Bld) 40.7 % Normal [facility] Comment on above: Order Comment: Speci men Type: BLOOD SPECIMENOrdering Facility: [facility] Address: [address] [place] [address] Performed By: #### 5 7021-8 ####TAOISM LABORATORYCLIA [id number] [address] [place] [address] [place] Nucleated RBC (Bld) [#/Vol] 10*3/uL Normal <0.01 [facility] Comment on above: Order Comment: Speci men Type: BLOOD SPECIMENOrdering Facility: [facility] Address: [address] [place] [address] Performed By: #### 5 7021-8 ####TAOISM LABORATORYCLIA [id number] [address] [place] [address] [place] Nucleated RBC/100 WBC (Bld) [Ratio] 0.0 /100 WBC Normal [facility] Comment on above: Order Comment: Speci men Type: BLOOD SPECIMENOrdering Facility: [facility] Address: [address] [place], [place] [address] Performed By: #### 5 7021-8 ####TAOISM LABORATORYCLIA [id number] [address] [place] [address] [place] Platelet mean volume (Bld) [Entitic vol] 9.3 fL Normal 9.0-12.7 [facility] Comment on above: Order Comment: Speci men Type: BLOOD SPECIMENOrdering Facility: [facility] Address: [address] [place], [place] [address] Performed By: #### 5 7021-8 ####TAOISM LABORATORYCLIA [id number] [address] [place] [address] [place] Platelets (Bld) [#/Vol] 373 10*3/uL Normal 150-400 [facility] Comment on above: Order Comment: Speci men Type: BLOOD SPECIMENOrdering Facility: [facility] Address: [address] [place] [address] Performed By: #### 5 7021-8 ####TAOISM LABORATORYCLIA [id number] [address] RBC (Bld) [#/Vol] 4.20 10*6/uL Normal 3.90-5.20 [facility] Comment on above: Order Comment: Speci men Type: BLOOD SPECIMENOrdering Facility: [facility] Address: [address] [place] [address] Performed By: #### 5 7021-8 ####TAOISM LABORATORYCLIA [id number] [address] WBC (Bld) [#/Vol] 7.27 10*3/uL Normal 3.70-11.00 [facility] Comment on above: Order Comment: Speci men Type: BLOOD SPECIMENOrdering Facility: [facility] Address: [address] [place] [address] Performed By: #### 5 7021-8 ####TAOISM LABORATORYCLIA [id number] [address] [facility] Basophils (Bld) [#/Vol] 0.04 10*3/uL <0.11 k/uL [facility] Basophils/100 WBC (Bld) 0.6 % [facility] Differential cell count method Nom (Bld) Auto [facility] Eosinophils (Bld) [#/Vol] 0.73 10*3/uL High <0.46 k/uL [facility] Eosinophils/100 WBC (Bld) 10.0 % [facility] Erythrocyte distribution width (RBC) [Ratio] 11.8 % 11.5 - 15.0 % [facility] Hematocrit (Bld) [Volume fraction] 41.7 % 36.0 - 46.0 % [facility] Hemoglobin (Bld) [Mass/Vol] 13.5 g/dL 11.5 - 15.5 g/dL [facility] Immature granulocytes (Bld) [#/Vol] <0.10 k/uL [facility] Immature granulocytes/100 WBC (Bld) 0.1 % [facility] Lymphocytes (Bld) [#/Vol] 2.89 10*3/uL 1.00 - 4.00 k/uL [facility] Lymphocytes/100 WBC (Bld) 39.8 % [facility] MCH (RBC) [Entitic mass] 32.1 pg 26.0 - 34.0 pg [facility] MCHC (RBC) [Mass/Vol] 32.4 g/dL 30.5 - 36.0 g/dL [facility] MCV (RBC) [Entitic vol] 99.3 fL 80.0 - 100.0 fL [facility] Monocytes (Bld) [#/Vol] 0.64 10*3/uL <0.87 k/uL [facility] Monocytes/100 WBC (Bld) 8.8 % C [facility] Neutrophils (Bld) [#/Vol] 2.96 10*3/uL 1.45 - 7.50 k/uL [facility] Neutrophils/100 WBC (Bld) 40.7 % [facility] Nucleated RBC (Bld) [#/Vol] <0.01 k/uL [facility] Nucleated RBC/100 WBC (Bld) [Ratio] 0.0 /100 WBC [facility] Platelet mean volume (Bld) [Entitic vol] 9.3 fL 9.0 - 12.7 fL [facility] Platelets (Bld) [#/Vol] 373 10*3/uL 150 - 400 k /uL [facility] RBC (Bld) [#/Vol] 4.20 10*6/uL 3.90 - 5.2 0 m/uL [facility] WBC (Bld) [#/Vol] 7.27 10*3/uL 3.70 - 11. 00 k/uL [facility] TYPE AND SCREEN,30 DAYon ABO A [facility] HIstorical Ab Scr Status Negative [facility] Rh Nom (Bld) Positive [facility] ABO A Normal [facility] Comment on above: Order Comment: Speci men Type: BLOOD SPECIMEN Ordering Facility: [facility] Address: [address] [place] [phone] Performed By: #### T SCR30 #### [facility] CLIA [id number] [address] [place], [place] [id number] [facility] HISTORICAL AB SCR STATUS Negative [facility] Comment on above: Order Comment: Speci men Type: BLOOD SPECIMEN Ordering Facility: [facility] Address: [address] [id number] Performed By: #### T SCR30 #### [facility] CLIA [id number] [address] [place] [address] Rh Nom (Bld) Positive [facility] Comment on above: Order Comment: Speci men Type: BLOOD SPECIMEN Ordering Facility: [facility] Address: [address] [id number] Performed By: #### T SCR30 #### [facility] CLIA [id number] [address] [place] [address] Gallo 03-16-2022 CNPN Telephone (NEADFV) HANNAH HENDRICKS ([id number]) 1990 F Date Time Provider Department 03/16/22 KONSTANTIN KIRKLAND During your visit today, we recorded the following information about you: Karen [place] 03/16/2022 1:33 PM Signed Patient at [phone] is requesting a call back Re: MRI results. She is quite upset. Italia Ackerman RN 03/16/2022 2:10 PM Signed Will forward for review. Italia Ackerman RN 03/16/2022 2:[address] Kirkland spoke with patient. Will be having surgery on 03/20/22. Karen [place] 03/16/2022 3:34 PM Signed Patient at [phone] is requesting a call back. She has [...] Encounter Status:Closed by ITALIA ACKERMAN on 03/16/22 [facility] MRI LUMBAR SPINE URSZULA Milligan 03-16-2022 [facility] Glalo 03-12-2022 MANDEEPN Telephone (ELISFV) HANNAH HENDRICKS ([id number]) 1990 F Date Time Provider Department 03/12/22 KONSTANTIN KIRKLAND During your visit today, we recorded the following information about you: Darlene Monge [facility] 03/12/2022 8:35 AM Signed Patients first day working and states she is in extreme pain, feels she cannot take it, the top of her right leg and her lower back is stiff, states pain is 7 out of 10. Please call patient at [phone] Italia Ackerman RN 03/12/2022 9:11 AM Signed Patient called yesterday to assistant director of admissions provider. Will forward for review. Radha Dickens [...] tabletRfl: 0 MRI LUMBAR SPINE WO IVCON [[id number]] Order #: [id number] FUTURE Prescriptions as of 03/12/2022 - methylPREDNISolone [...] Encounter Status:Closed by KELSY WATERMAN on 03/12/22 [facility] ANES POSTPROC EVALon 022 ANES POSTPROC EVAL HNO ID: [id number] Author: Lisette Tarango MD Service: Anesthesiology Author Type: Anesthesiologist Type: Anesthesia Postprocedure Evaluation Filed: 12/19/2021 10:07 AM Note Text: POST ANESTHESIA EVALUATION NOTE : 1990 Procedure Summary Date: 12/19/21 Room / Location: [place] [address] / OR Anesthesia Start: 739 Anesthesia Stop: [...] December 19, 2021 TIME: 10:07 AM CSN: [id number] [facility] ANES PRE-OPon 12-19-2021 ANES PRE-OP HNO ID: [id number] Author: Viridiana Brower MD Service: Anesthesiology Author [...] and consent discussed: yes. Patient / Responsible Republican agrees to proceed: yes Patient / Surrogate [...] December 19, 2021 TIME: 7:14 AM CSN: [id number] [facility] BRIEF OP NOTon 12-19-2021 BRIEF OP NOT HNO ID: [id number] Author: Demetrice Orantes MD Service: Neurosurgery Author Type: Resident Type: Brief Op Note Filed: 12/19/2021 9:14 AM Note Text: BRIEF OPERATIVE / PROCEDURE NOTE LOG ID: [id number] SURGERY/PROCEDURE DATE: 12/19/2021 INCISION/PROCEDURE START TIME: 8:05 AM INCISION CLOSE/PROCEDURE END TIME: 9:06 AM SURGEON(S)/PROCEDURAL IST(S) AND EXPERIMENTAL TECHNICIAN(S): Surgeon(s) and Role: * Konstantin Kirkland MD [...] DATE: December 19, 2021 TIME: 8:49 AM [facility] HCG Preg Ur Qlon 12-19-2021 HCG ( test) Ql (U) Negative Normal Negative [facility] Comment on above: Order Comment: Speci men Type: URINE SPECIMENOrdering Facility: [facility] Address: [address] [place] [phone] Result Comment: This test is intended to aid in the early detection of . Very dilute urine samples, as indicated by a low specific gravity, may not contain medical field representative levels of hCG. This test detects [...] for . Performed By: #### 2 106-3 ####TAOISM LABORATORYIA [id number] [address] NURSING PROGon 12-19-2021 NURSING PROG HNO ID: [id number] Author: Ryanne Tracy RN Service: ? Author Type: Registered Nurse Type: Nursing Progress Note Filed: 12/19/2021 9:18 AM Note Text: Discharge Status: Patient is Drowsy, and is no airway issues. Skin condition was WNL. Transported to recovery room via cart with siderails up. Accompanied by ict teacher and surgeon. [facility] NURSING PROG HNO ID: [id number] Author: Ryanne Tracy RN Service: ? Author [...] of exposure, and providing warm irrigation fluid. [facility] OPERATIVE NOon 12-19-2021 OPERATIVE NO HNO ID: [id number] Author: Konstantin Kirkland MD Service: Neurosurgery Author Type: Physician Type: Operative Report Filed: 12/19/2021 11:55 AM Note Text: OPERATIVE/PROCEDURE REPORT LOG ID: [id number] SURGERY/PROCEDURE DATE: 12/19/2021 INCISION/PROCEDURE START TIME: 8:05 AM INCISION CLOSE/PROCEDURE END TIME: 9:06 AM SURGEON(S)/PROCEDURAL IST(S) AND EXPERIMENTAL TECHNICIAN(S): Surgeon(s) and Role: * Konstantin Kirkland MD [...] DATE: December 19, 2021 TIME: 8:54 AM [facility] XR LUMBAR SPECIFY 1Von 12-19 XR LUMBAR [...] Variants: None. IMPRESSION: Localization for surgical purposes Awake Overnight Monitor: RAYSA Transcribe Date/Time: Dec 19 2021 8:06A Dictated by : HAYDE RONDON MD This examination was interpreted and the report reviewed and electronically signed by: HAYDE RONDON MD on Dec 19 2021 8:07AM EST [id number] [facility] XR VERIFY LEVEL [id number] 12-19-2021 XR VERIFY LEVEL L-SPINE-NB * * *Final Report* * * DATE OF EXAM: Dec 19 2021 8:16AM MISAEL 5642 - XR VERIFY LEVEL L-SPINE-NB / PROCEDURE REASON: Lumbar disc herniation * * * * Physician Interpretation * * * * [id number] TECHNIQUE: Single lateral image of the lumbar [...] on 12/19/2021 8:22 AM via verbal communication. Awake Overnight Monitor: RAYSA Transcribe Date/Time: Dec 19 2021 8:19A Dictated by : HAYDE RONDON MD This examination was interpreted and the report reviewed and electronically signed by: HAYDE RONDON MD on Dec 19 2021 8:22AM EST [id number] [facility] Basic metabolic 2000 panelon 12-06-2021 Anion gap [Moles/Vol] 9 mmol/L 9 - 18 mmol/L [facility] Calcium [Mass/Vol] 9.9 mg/dL 8.5 - 10. 2 mg/dL [facility] Chloride [Moles/Vol] 103 mmol/L 97 - 10 5 mmol/L [facility] CO2 [Moles/Vol] 28 mmol/L 22 - 30 mmol/L [facility] Creatinine [Mass/Vol] 0.72 mg/dL 0.58 - 0.96 mg/dL [facility] Estimated Glomerular Filtration Rate 116 mL/min/1.73m >=60 mL/min/1.73m [facility] Glucose [Mass/Vol] 87 mg/dL 74 - 99 mg/dL [facility] Potassium [Moles/Vol] 4.3 mmol/L 3.7 - 5.1 mmol/L [facility] Sodium [Moles/Vol] 140 mmol/L 136 - 144 mmol/L [facility] Urea nitrogen [Mass/Vol] 11 mg/dL 7 - 21 mg/d L [facility] CBC W Auto Differential pane l (Bld)on 12-06-2021 Abs Immature Gran <0.10 k/uL [facility] Basophils (Bld) [#/Vol] 0.04 10*3/uL <0.11 k/uL [facility] Basophils/100 WBC (Bld) 0.7 % C [facility] Differential cell count method Nom (Bld) Auto [facility] Eosinophils (Bld) [#/Vol] 0.60 10*3/uL High <0.46 k/uL [facility] Eosinophils/100 WBC (Bld) 10.7 % [facility] Erythrocyte distribution width (RBC) [Ratio] 11.2 % Low 11.5 - 15.0 % [facility] Hematocrit (Bld) [Volume fraction] 37.1 % 36.0 - 46.0 % [facility] Hemoglobin (Bld) [Mass/Vol] 12.7 g/dL 11.5 - 15.5 g/dL [facility] Immature Gran % 0.2 % [facility] Lymphocytes (Bld) [#/Vol] 2.07 10*3/uL 1.00 - 4.00 k/uL [facility] Lymphocytes/100 WBC (Bld) 37.0 % [facility] MCH (RBC) [Entitic mass] 33.3 pg 26.0 - 34.0 pg [facility] MCHC (RBC) [Mass/Vol] 34.2 g/dL 30.5 - 36.0 g/dL [facility] MCV (RBC) [Entitic vol] 97.4 fL 80.0 - 100.0 fL [facility] Monocytes (Bld) [#/Vol] 0.61 10*3/uL <0.87 k/uL [facility] Monocytes/100 WBC (Bld) 10.9 % C [facility] Neutrophils (Bld) [#/Vol] 2.26 10*3/uL 1.45 - 7.50 k/uL [facility] Neutrophils/100 WBC (Bld) 40.5 % [facility] Nucleated RBC (Bld) [#/Vol] <0.01 k/uL [facility] Nucleated RBC/100 WBC (Bld) [Ratio] 0.0 /100 WBC [facility] Platelet mean volume (Bld) [Entitic vol] 9.6 fL 9.0 - 12.7 fL [facility] Platelets (Bld) [#/Vol] 321 10*3/uL 150 - 400 k /uL [facility] RBC (Bld) [#/Vol] 3.81 10*6/uL Low 3.90 - 5.2 0 m/uL [facility] WBC (Bld) [#/Vol] 5.59 10*3/uL 3.70 - 11. 00 k/uL [facility] MRI LUMBAR SPINE WO IVCONon 10-05-[address] [facility] [address] Spine Lumbar w/o Contrast on 09-14-2021 CT Spine Lumbar w/o Contrast Exam Date/Time: 09/13/2021 23:08 EDT Reason for Exam: Low back pain, progressive neurologic deficit;Other (please specify) Report IMPRESSION: No acute fracture or traumatic malalignment. L4-L5 and L5-S1 disc bulges with mild canal stenosis and mgwy-ap-pksffxdo left neural foraminal narrowing, most prominent at [...] MD Transcribed by: SAM Technologist: KATARZYNA [facility] Coding Summary.on 09-14-2021 Coding Summary. CD:[id number] G h0bWw+PGhlYWQ+UP9AZJO jK41laFHmwR1FU9iILZ7R BOYXHTGWSN2YGG6msVS5A UpsI9CdvlJt UbcxiNKlOC12TDl1NHA5t PoeOSnqnM5qdGClG1b5Tv CkXS94lV28FWtsKDJjYvZ 3LjZpbjsgbWFy A4rkEvUpgREzYjj+PHRhY mxlIHdpZHRoPScxMDAlJy SygFozNB6hDw3bMILmBRZ vbGxhcHNlOiBj i3icRWWaOOgeQT5cfTbiX 2WmuXV6PVWnz6l6Nt71qT I+GGVxJWN0rTylLLwxw32 8IaDkt3cpKAE2 qFWjCQdaHQG0R94gp7R5O MOrENRtMGM7oTA0tO7hvD dfxcfrU6ShkTGpYyQ5NRA 3dWMbtT8jtSlh chvirD3zEdm+Q18WOX9BP BTFBR1NQgc5U3OsUreiaL I+PY90EHZvOZ76fIDgfCY cw4ksxAd6CbTk XLAfRHM4mIbzFBzfv8RlA EUaQ22jjFPeh4Y3EZLnlI hwjBJeNgMxnGK2bE3sIDi lbyffq4fnfsub Ruaom2vubp67yV80S21wE IbhNHWxVYP5LIFlYJKmyY mgym0zqO7sOe5+UTbls2m iu3cgqAu7TdPi IQVocnPraHquQNG8m6SbT d00Q2BegObmx3GqIwa2km 93aTRbh5Y0iXZ7OMqvMUP ijY7cXTttZmK1 PQWxUxRapK08pDXvXDdsD z3rxFbrsAwaKC9dAVKvak cfDGFbuI9yAKTecFWqePb iIO2eBGDkbkay s154VfDpIUG3VEFunCYeY 8DfwS5tWiSaOBLjVCHxE1 MxoIQuTFpnP597RJnbGzX 7DECkixYdH7Hg JXYonEdnShI0z5M1Ky2Qc 1VvoxxzPUM5JGpkCDM1Sm VvXwXaVfL2N5HkHvb5FRC otGdrVQ3nE0Cx GHDkdgqgolsysXA1VHTpR SOllI86vFBzIBbfEr2cy9 N8e450CXBiRXNszR53Nn3 udDogMTBwdCBU gP9dkmhll6nqddwlIzZvC YTiSAx2DNz3UQGfaSmrIb TmSJJ3FiJ2WIJ3aORqkP8 gsGidkoqfzG1e Oyc+Q05ywR4kHJA1AGZ8q yyaMRUxiuBkKA22DX44G9 RyPjwvdGFibGU+PGRpdiB oyZisOQ9eUwIw b8ykx5QzJJunY8IfAALpV QweMcn6RXXuSCG1mHX6sQ 9hFTUdLVkrs3T1gTK9K1H zblOzdm3ps7fg VOSoVWvtS21jsPPuz2Y2P PXhoUC2UWRnzTokPwPznC 93Oyc+TASgdFpeg5XtAlc ly7wbh6hiwPq1 UkHbGJUxncQbpGaoGRV4f 9MiXp26C89dJVqoDOBoVA YzBOSsXGYusRpuxn4ekX4 wIi8+PGNvbCB3 nSM8jP3hEERsBiH2ZCjnD 042NpVqlVHdJrmqr2ije7 aiiLg4CoOwXVKgqkCmbKb oVOV8p8EkWk59 E10kZBiiAXIoRHUpWXVrK THfdLrbcj2djL1aLe5+PC 5nt8posq03mP82wWV+PHR gZOJ3wElmDWem IMJbhU7rDGmuGaP9LBSfF zNghO53kMFqJPinIu0ghW ajjIlmXB7rDMGiueiql97 7DmOfe7ydJIIa wSNjRKdqHHB7I97iq9I4C RQuWHExXSX0lAQ4vK1uxH lnbjogbGVmdDsgdmVydGl qXYkwMAohM138 IHRvcDsnPlBhdGllbnQgT qWnUCr2L2ZjCrr5DDWvvM faOB4ppMVtLYvyFx1glHz eoUfrDW7vQBLv amdwr757BgWsc4apBRCye GPxUCxwENJ9C65ex5Z6OY VqDLHwYUL1vHT2nP9zfKy nbjogbGVmdDsg xbLzhUnyGPdgLIdmI702M HRvcDsnPkJpcnRoIERhdG S5OF77LI92cBOwj2X4lQR 2V5ZkEKPcgtha qzyjlIQ8OECcNVDljH87M b3vlRpjRj6dOTKbUEN0YW KorAToN0XcwR9iFsCaAIN lSKIeZ4LqeAAt XCkpV376CEyrXhR0GLQii qAhR1WiEBZsaTkeGxS4m4 W0Sy4ZC7L0NO74TQ13bPD rw3F1kUB8F7Op CVCzzbixqxzdpWT2UGDuT KSgtP63Qn2fpZfpNv9aDQ JxPCZ9BPXowEZeI3XvtK0 yOiAjMDAwMDAw Z1NkpLPxHUthG425UDacJ nO4LHTossJjO2WySAXkcT rrUqG7q8S3Uy6WVUf1QO5 7TK49yDJgq0K9 qYO6C5PwAZWtclypbrsrs IK1DKZuDPWonF97Lo0neC pzDx4iOEBdEBO7VDIdsIC gA5SmhZ1dQuBn BZRqNIKfF9CviJQhMHziV 689WZhoOqE5EYCxfrYfQ2 CyVITpiJhzWkM7m9J6Dm2 PYJXtKH13XTT2 xHH7ZO92EV20X6VwMqxrg GFibGU+PHRhYmxlIHdpZH RoPScxMDAlJyBzdHlsZT0 oGr1bJTBsNLFt zGucjJGuDxEes4amODQjY TjcPO7ewVxyI1VxdLC5NC Oef1z3Ia13G65fI0JfwRF +NPZpkOO1bDI0 lU2fBsIcIpK3WOffU059R yIbhYQeZgzeh4qvc7isiZ b0GjD8YBLfofRtvQinHBM 4l9PqFl78O40y IHdpZHRoPSIxNSUiIHZhb Oyrsr5yoZ7hOq1+PGNvbC Z4iTU7vV5lItRlLkX5KCh kQ373AnAttYWb Fyffp3gcn5ndhLy1EoSsN JUeogLvnTtmKKA1a4SjBg 62Q1LwcOqol8AlEtu7az2 8mQRnw4Q5dSS3 T1UyNLAclroisHJegFobB S4kBEAmqosnENYkkD9iES VvF1r1OfMeSbT1GEspO4K avrU0UOGgqJWm LCxpIWO2G07zy3I0WPZpI ZKiRNS5pBA1uU5qdDnfvk ogbGVmdDsgdmVydGljYWw dOHiqM219HMOz pIcuFEZwzS3nWWJeiHLex MsdGD6qJGUjoszeJagKS3 hBUklBUywgQVNITEVZPC9 4RC21kCBuv6C2 qFU8O9NgBWPeewrbnqayc QK8CIVoWDTqvI52eRHiKY peXd3nh1A3a475ARYcMIY gaU76Zb9wzCvn MUWksYBIsT4pimqsz6omk fhqOyEkILVbWNp8RWc3FI CsgBelVpFkLAT6TdN5NEQ 1pDDszU4ndZup dfvyeT0rOkv+MTIvMDEvM Yv1PlceeXU+QOJqBBJ1kC uiSGqpSKKkjO7qPRPlT8w 5YkVdPzN0PEru C6ZjMSUopfgiPf53mW7tA eUaKhV1EFmdU4GlexB2PL EahPCuIZlqMUR9T57zd8D 4SWLkTOLtVYK0 wOW5bO8txRdvnyqxmOFhl DsgdmVydGljYWwtYWxpZ2 40ITSnwYdyCdE3ZKfoPGI jIW27RI19aMLx x5Q3hVK7L7TsTKZymryih khvwPY6TNCgFOJhmD18tV GrUGrqVk6vj7K3n308ZFP lVNEtvB84Sm9q pKhdYCYvuOFPrN4vqezim 9vyqqigGaYrIBSiMHh0VN a8AORalIvvNfGdTAT7WwM 6VKX1bHOxfX3r jLqhgnbmfZ2bAra+RmVtY BrgGH34DX67aRBvm6H7iH D9L7CnINGcwkyfqojzfMI 6OEOiDXKmaR85 cPEfBJecHk4gu3S1n249E HExQPCnyC25Ma5gwJnjIO KieMGUjI6luqdun0xgzth gIzAwMDAwMDt0 IBf3AVMicAnrLvBbUIW6G tV6HGR2rPXymG2gbDkell hxkE1nOqc+SL1mefagxkU 4IK65FZ26Z3Po PjwvdGFibGU+PHRhYmxlI HdpZHRoPScxMDAlJyBzdH mdWT6vUd5zXZRpZUOxzQj xuISwYwDip9sw ISQlNVqwZW9fnIytY4Usf CA2WMPkg0d4Ry25L54vI4 JvdXA+MMWtxEO5dBB9cU4 tVfBwPrX9IXfm Y695IuOziHUiHvhhd5qlt 1vwkPa7FvQlVXSamsMhzO qvWGZ3a9EzVg15R95dITq pZHRoPSIyMCUi FBRuxKimzv5biU4mIj6+P YOgqSN2wAU8tN9tIiDaZr U1ANkmE045BeBeuXKzMng wQ66bN7WhiFI+ IFQpWrl8XQHdyXhiBT2za QZmCXakOh2bUSS6UpFcHo PpWGlrK8MkHNCjdryuqop cxIR1UCKvXUSp dM50Qr2kcTpkMt7jMBZtF AY1CXOgrBRmC1KduG0sWj YdQLAvKUVzR6JixIMlWJe aK309PBwpSgD2 EWPuvxJuE5FdGRJzdYezI wZ2x2F3Ac4OiVcrxFWuXY 7wJsZqCBp9Q3RuVjp8IFY kfEjdXB9xuHLd MQxoOq9zuDieoDowLY0dT APxxudlr618NdQqx2jyDW BdmBBfLVahHIU6Q72kl2P 3YZQlTBYiTTA7 kQN7hO2ajPxdxiqgwMSjp DsgdmVydGljYWwtYWxpZ2 27IJJnoKlxEyGTPon2G4I tNzp2CRJhtIqb HO3viYYxCFwaVy0yuKsfx SnlGQ9iQBKdzlpio571Pt Wrj3kyFGRdxJUnDBacGCB 8G74xu9R5GBXz MDVuEZU6jFX2nY5uuNjmy jogbGVmdDsgdmVydGljYW xpOKzmT680WVEmuFapXi3 DHuj3Y8ArBjd9 BTGtxYwbLZ8hgGAyCSdcL s3wbDwlvSojXQ3nNYYoml oce178YkSeo7mbBATiwPA hDLzlJLK2K77g i7M1NYObWWHmNTA0fAN0g F5zhScfkgiqjFLtzIkwam CvzQeiPZgfDAxgH890DNO vcDsnPlBheWVy OjwvdGQ+GV28pj59E5HoR uscGzz6BSTzGWP9aSS9hV 3mUROeUAedy1Y1bTW8F8I dxbYjgk4ng3qx YXBz (more content not included)... [facility] Discharge Instructionson Discharge Instructions [id number]# 1.00CD:127 [facility] ED Clinical Summaryon 2021 ED Clinical Summary [place] [id number] ED Clinical Summary Person Information Name: HANNAH HENDRICKS/[facility] Age: 31 Years : 1990 Sex: Female Language: Vietnamese PCP: Severiano Wallace III, DO Marital Status: Phone: [phone] Visit Id: Visit Reason: Back pain; BACK [...] 09/13/2021 23:57:29 09/13/2021 23:57:29 09/13/2021 23:57:29 ADDRESS: [address] [place], [place] [id number] PHYS DOC NOTES: MEDICAL INFORMATION: Prescriptions Given: New Medications Printed Prescriptions acetaminophen-hydroco done ([place] 325 mg-5 mg oral tablet) 1 Tablets [...] 0. PATIENT EDUCATION INFORMATION: Instructions: Back Exercises, Fyqz-cs-Rtqh Follow up: With: Address: When: Santana Vidal [address] [place] [address] [facility] (1) In 3 days 09/16/2021 Comments: Take the prednisone daily until you have completed the course you can use the Robaxin, [place] as prescribed as needed for pain. Use lidocaine patch daily. Please follow-up with your primary care doctor and orthopedic for further evaluation management. With: Address: When: Severianojacqueline Wallace [address] [place] [address] [facility] () In 3 days DIAGNOSIS: Sciatica [facility] ED Note-Nursingon 09-14-2021 ED Note-Nursing pt given d/c instructions and educated on importance of follow up. pt educated on new medications. pt verbalized understanding of instructions and readiness for d/c. pt walked self ambulatory to waiting room in stable condition. pt driven home by boyfriend. [facility] ED Note-Physicianon 09-15-19 ED Note-Physician Basic Information [...] degenerative changes at L4-L5. Patient is given [place], Lidoderm, Norflex in addition to prednisone in [...] Given Lidoderm 5% Patch, 1 patch(es), TransDermal [place] 5/325 Tab, 1 tab(s), Oral orphenadrine 30 mg/mL Inj, 60 mg, IntraMuscular predniSONE 20 mg Tab, 60 mg, Oral Disposition Plan Discharge Prescription List Prescriptions Lidoderm 5% topical film, 1 patch(es), Topical, Daily [place] 325 mg-5 mg oral tablet, 1 tab(s), Oral, q6hr, PRN predniSONE 50 mg Tab, 50 mg= 1 tab(s), Oral, Daily Robaxin 500 mg Tab, 500 mg= 1 tab(s), Oral, TID Follow-up With When Contact Information Santana Vidal In 3 days 09/16/2021 EDT [address] [place] [address]- [facility] (1) Additional Instructions: Take the prednisone daily until you have completed the course you can use the Robaxin, [place] as prescribed as nee (more content not included)... [facility] Comment on above: Result Comment: Elec tronically Signed By: Moon Manuel DO\.br\Date and Time Signed: 09/14/21 05:27 [...] the exerc (more content not included)... [facility] ED Patient Summaryon 022 ED Patient Summary [place] [id number] Patient Discharge Instructions Person Information Name: HANNAH HENDRICKS Age: 31 Years Arrival Date: 09/13/2021 20:29:38 Discharge Diagnosis: Sciatica Primary Care Physician: Severiano Wallace III, DO Provider Information Primary Provider: Moon Manuel DO [employer] Supervisor:None The exam and treatment you received in the Emergency Department were for an urgent problem and are not intended as complete care. It is important that you follow up with a doctor, nurse practitioner, or physician?s costumer assistant for ongoing care. If your symptoms [...] Follow-up Instructions: With: Address: When: Santana Young [address] [place] [address] [facility] () In 3 days 09/16/2021 Comments: Take the prednisone daily until you have completed the course you can use the Robaxin, [place] as prescribed as needed for pain. Use lidocaine patch daily. Please follow-up with your primary care doctor and orthopedic for further evaluation management. With: Address: When: Severiano Wallace [address] [place] [address] [facility] (1) In 3 days In the event that this physician does not participate in your insurance network, please consult with your insurance company to find a nearby participating provider. Patient Education Materials: Back Exercises, Jxgr-mv-Jozv A MESSAGE TO ALL PATIENTS REGARDING OPIOIDS PRESCRIPTION OPIOIDS: WHAT YOU NEED TO KNOW Prescription opioids can be used to help relieve sgcdravq-zx-kdhsel pain and are often prescribed following a [...] down the to (more content not included)... [facility] RAD - Preliminary Cat Scan R eporton 09-14-2021 RAD - Preliminary Cat Scan Report [id number]# 1.00CD:127 [facility] U BetaHcg Qualon 09-14-2021 HCG.beta subunit (U) [Moles/Vol] Negative [facility] Comment on above: Performed By: #### 2 [id number] #### [facility] [address] [place] [address] Consent for Treatmenton 060 Consent for Treatment [id number] .00CD:127 [facility] SEROLOGYOrdered By: Pascale Noe on 09-13-2021 HCG.beta subunit (U) [Moles/Vol] Negative Normal [facility] Man Sero Vital Signs Date Time Vital Sign Value Performing Clinician Faci lity 01-11-2025 09:59-0400 Body mass index (BMI) [Ratio] 34.7 kg/m2 Dr. Thomas Salinas MD Work Phone: [facility] 01-11-2025 09:59-0400 Body weight 97.[address] Thomas owens MD Work Phone: [facility] 01-11-2025 09:59-0400 Diastolic blood pressure 75 mm[Hg] Dr. Thomas Salinas MD Work Phone: [facility] 01-11-2025 09:59-0400 Systolic blood pressure 118 mm[Hg] Dr. Thomas Salinas MD Work Phone: [facility] 12-28-2024 09:50-0400 Body height 167.[address] Thomas owens MD Work Phone: [facility] 12-28-2024 09:45-0400 Body mass index (BMI) [Ratio] 33.9 kg/m2 Dr. Thomas Salinas MD Work Phone: [facility] 12-28-2024 09:45-0400 Body weight 95.[address] Thomas owens MD Work Phone: [facility] 12-28-2024 09:45-0400 Diastolic blood pressure 72 mm[Hg] Dr. Thomas Salinas MD Work Phone: [facility] 12-28-2024 09:45-0400 Systolic blood pressure 118 mm[Hg] Dr. Thomas Salinas MD Work Phone: [facility] 12-15-2024 09:22-0400 Body height 167.[address] Thomas owens MD Work Phone: 0(918)424-896412 [place] [address] 12-15-2024 09:22-0400 Body mass index (BMI) [Ratio] 33.1 kg/m2 Dr. Thomas Salinas MD Work Phone: 9(342)086-518212 [place] [address] 12-15-2024 09:22-0400 Body weight 93.[address] Thomas owens MD Work Phone: 5(776)636-500612 [place] [address] 12-15-2024 09:22-0400 Diastolic blood pressure 69 mm[Hg] Dr. Thomas Salinas MD Work Phone: 7(344)408-328412 [place] [address] 12-15-2024 09:22-0400 Systolic blood pressure 106 mm[Hg] Dr. Thomas Salinas MD Work Phone: [facility] 12-01-2024 08:19-0400 Body height 167.[address] Thomas owens MD Work Phone: [facility] 12-01-2024 08:19-0400 Body mass index (BMI) [Ratio] 33.3 kg/m2 Dr. Thomas Salinas MD Work Phone: 9(428)507-686412 [place] [address] 12-01-2024 08:19-0400 Body weight 93.[address] Thomas owens MD Work Phone: [facility] 12-01-2024 08:19-0400 Diastolic blood pressure 70 mm[Hg] Dr. Thomas Salinas MD Work Phone: 6(599)408-408112 [place] [address] 12-01-2024 08:19-0400 Systolic blood pressure 112 mm[Hg] Dr. Thomas Salinas MD Work Phone: [facility] 11-09-2024 08:55-0400 Body height 167.[address] Thomas owens MD Work Phone: [facility] 11-09-2024 08:55-0400 Body mass index (BMI) [Ratio] 32.6 kg/m2 Dr. Thomas Salinas MD Work Phone: 3(739)706-762312 [place] [address] 11-09-2024 08:55-0400 Body weight 91.[address] Thomas owens MD Work Phone: 9(213)741-362412 [place] [address] 11-09-2024 08:55-0400 Diastolic blood pressure 71 mm[Hg] Dr. Thomas Salinas MD Work Phone: 3(300)427-425912 [place] [address] 11-09-2024 08:55-0400 Systolic blood pressure 104 mm[Hg] Dr. Thomas Salinas MD Work Phone: 0(479)340-243912 [place] [address] 10-12-2024 15:54-0400 Body height 167.[address] Thomas owens MD Work Phone: 2(041)231-121512 [place] [address] 10-12-2024 15:54-0400 Body mass index (BMI) [Ratio] 31.5 kg/m2 Dr. Thomas Salinas MD Work Phone: [facility] 10-12-2024 15:54-0400 Body weight 88.[address] Thomas owens MD Work Phone: 8(394)840-139012 [place] [address] 10-12-2024 15:54-0400 Diastolic blood pressure 75 mm[Hg] Dr. Thomas Salinas MD Work Phone: [facility] 10-12-2024 15:54-0400 Systolic blood pressure 119 mm[Hg] Dr. Thomas Salinas MD Work Phone: [facility] 09-14-2024 08:59-0400 Body height 167.[address] Thomas owens MD Work Phone: [facility] 09-14-2024 08:59-0400 Body mass index (BMI) [Ratio] 30.7 kg/m2 Dr. Thomas Salinas MD Work Phone: [facility] 09-14-2024 08:59-0400 Body weight 86.[address] Thomas owens MD Work Phone: [facility] 09-14-2024 08:59-0400 Diastolic blood pressure 71 mm[Hg] Dr. Thomas Salinas MD Work Phone: [facility] 09-14-2024 08:59-0400 Systolic blood pressure 106 mm[Hg] Dr. Thomas Salinas MD Work Phone: [facility] 08-17-2024 08:32-0400 Body mass index (BMI) [Ratio] 29.7 kg/m2 Dr. Thomas Salinas MD Work Phone: [facility] 08-17-2024 08:32-0400 Body weight 83.[address] Thomas owens MD Work Phone: [facility] 08-17-2024 08:32-0400 Diastolic blood pressure 68 mm[Hg] Dr. Thomas Salinas MD Work Phone: [facility] 08-17-2024 08:32-0400 Systolic blood pressure 104 mm[Hg] Dr. Thomas Salinas MD Work Phone: [facility] 08-05-2024 09:52-0400 Body mass index (BMI) [Ratio] 29.5 kg/m2 Dr. Thomas Salinas MD Work Phone: [facility] 08-05-2024 09:52-0400 Body weight [address] Thomas owens MD Work Phone: [facility] 08-05-2024 09:52-0400 Diastolic blood pressure 78 mm[Hg] Dr. Thomas Salinas MD Work Phone: [facility] 08-05-2024 09:52-0400 Systolic blood pressure 126 mm[Hg] Dr. Thomas Salinas MD Work Phone: [facility] 07-20-2024 13:59-0400 Body height 167.[address] Royce Chapin DO Work Phone: [facility] 07-20-2024 13:58-0400 Body mass index (BMI) [Ratio] 29.4 kg/m2 Dr. Royce Chapin DO Work Phone: 9(357)064-250818 [place] [address] 07-20-2024 13:58-0400 Body weight 82.[address] Royce Chapin DO Work Phone: 2(033)458-873418 [place] [address] 07-20-2024 13:58-0400 Diastolic blood pressure 79 mm[Hg] Dr. Royce Chapin DO Work Phone: [facility] 07-20-2024 13:58-0400 Systolic blood pressure 117 mm[Hg] Dr. Royce Chapin DO Work Phone: [facility] 04-14-2024 14:22-0500 Body height 167.[address] Royce Chapin DO Work Phone: 7(058)167-487418 [place] [address] 04-14-2024 14:19-0500 Body mass index (BMI) [Ratio] 28.8 kg/m2 Dr. Royce Chapin DO Work Phone: 4(572)939-692118 [place] [address] 04-14-2024 14:19-0500 Body weight 80.[address] Royce Chapin DO Work Phone: 4(394)966-902518 [place] [address] 04-14-2024 14:19-0500 Diastolic blood pressure 78 mm[Hg] Dr. Royce Chapin DO Work Phone: 6(024)050-834918 [place] [address] 04-14-2024 14:19-0500 Systolic blood pressure 114 mm[Hg] Dr. Royce Chapin DO Work Phone: [facility] 04-01-2024 20:00-0500 Body temperature 98 [degF] Dr. Royce Chapin DO Work Phone: [facility] 04-01-2024 20:00-0500 Diastolic blood pressure 68 mm[Hg] Dr. Royce Chapin DO Work Phone: [facility] 04-01-2024 20:00-0500 Heart rate 79 /min Dr. Royce Chapin DO Work Phone: [facility] 04-01-2024 20:00-0500 Respiratory rate 18 /min Dr. Royce Chapin DO Work Phone: 8(148)605-340618 [place] [address] 04-01-2024 20:00-0500 SaO2% (BldA) [Mass fraction] 100 % Dr. Royce Chapin DO Work Phone: [facility] 04-01-2024 20:00-0500 Systolic blood pressure 112 mm[Hg] Dr. Royce Chapin DO Work Phone: [facility] 04-01-2024 16:16-0500 Body mass index (BMI) [Ratio] 29.2 kg/m2 Dr. Royce Chapin DO Work Phone: [facility] 04-01-2024 16:16-0500 Body weight 82.[address] Royce Chapin DO Work Phone: [facility] 07-27-2023 11:28-0400 Body temperature 97.7 [degF] Diana Kus STROKE COORDINATOR.CHALK TESTER Work Phone: [facility] 07-27-2023 11:28-0400 Body weight 73.03 kg Diana Kus STROKE COORDINATOR.CHALK TESTER Work Phone: [facility] 07-27-2023 11:28-0400 Diastolic blood pressure 69 mm[Hg] Diana Kus STROKE COORDINATOR.CHALK TESTER Work Phone: [facility] 07-27-2023 11:28-0400 Heart rate 98 /min Diana Kus STROKE COORDINATOR.CHALK TESTER Work Phone: [facility] 07-27-2023 11:28-0400 Respiratory rate 18 /min Diana Reids STROKE COORDINATOR.CHALK TESTER Work Phone: [facility] 07-27-2023 11:28-0400 Systolic blood pressure 117 mm[Hg] Diana Trejo STROKE COORDINATOR.CHALK TESTER Work Phone: [facility] 02-06-2023 08:40-0400 Body height 165.1 cm Konstantin Kirkland MD Work Phone: [facility] 02-06-2023 08:40-0400 Body weight 73.94 kg Konstantin Kirkland MD Work Phone: [facility] 02-06-2023 08:40-0400 Diastolic blood pressure 73 mm[Hg] Konstantin Kirkland MD Work Phone: [facility] 02-06-2023 08:40-0400 Heart rate 101 /min Konstantin Kirkland MD Work Phone: [facility] 02-06-2023 08:40-0400 SaO2% (BldA) [Mass fraction] 100 % Konstantin Kirkland MD Work Phone: [facility] 02-06-2023 08:40-0400 Systolic blood pressure 106 mm[Hg] Konstantin Kirkland MD Work Phone: [facility] 04-04-2022 13:49-0500 Body temperature 98.1 [degF] Konstantin Kirkland MD Work Phone: [facility] 04-04-2022 13:49-0500 Body weight 77.56 kg Konstantin Kirkladn MD Work Phone: [facility] 04-04-2022 13:49-0500 Diastolic blood pressure 71 mm[Hg] Konstantin Kirkland MD Work Phone: [facility] 04-04-2022 13:49-0500 Heart rate 82 /min Konstantin Kirkland MD Work Phone: [facility] 04-04-2022 13:49-0500 SaO2% (BldA) [Mass fraction] 100 % Konstantin Kirkland MD Work Phone: [facility] 04-04-2022 13:49-0500 Systolic blood pressure 124 mm[Hg] Konstantin Kirkland MD Work Phone: [facility] 03-19-2022 13:09-0500 Body height 165.1 cm Pacc 3 Work Phone: [facility] 03-19-2022 13:09-0500 Body temperature 97.9 [degF] Pacc 3 Work Phone: [facility] 03-19-2022 13:09-0500 Body weight 77.56 kg Pacc 3 Work Phone: [facility] 03-19-2022 13:09-0500 Diastolic blood pressure 73 mm[Hg] Pacc 3 Work Phone: [facility] 03-19-2022 13:09-0500 Heart rate 65 /min Pacc 3 Work Phone: [facility] 03-19-2022 13:09-0500 Respiratory rate 16 /min Pacc 3 Work Phone: [facility] 03-19-2022 13:09-0500 SaO2% (BldA) [Mass fraction] 97 % Pacc 3 Work Phone: [facility] 03-19-2022 13:09-0500 Systolic blood pressure 111 mm[Hg] Pacc 3 Work Phone: [facility] 03-05-2022 08:55-0500 Body height 165.1 cm Konstantin Kirkland MD Work Phone: [facility] 03-05-2022 08:55-0500 Body weight 81.06 kg Konstantin Kirkland MD Work Phone: [facility] 03-05-2022 08:55-0500 Diastolic blood pressure 78 mm[Hg] Konstantin Kirkland MD Work Phone: [facility] 03-05-2022 08:55-0500 Heart rate 96 /min Konstantin Kirkland MD Work Phone: [facility] 03-05-2022 08:55-0500 SaO2% (BldA) [Mass fraction] 98 % Konstantin Kirkland MD Work Phone: [facility] 03-05-2022 08:55-0500 Systolic blood pressure 118 mm[Hg] Konstantin Kirkland MD Work Phone: [facility] 02-05-2022 11:14-0400 Body height 165.1 cm Konstantin Kirkland MD Work Phone: [facility] 02-05-2022 11:14-0400 Body temperature 98.4 [degF] Konstantin Kirkland MD Work Phone: [facility] 02-05-2022 11:14-0400 Body weight 79.74 kg Konstantin Kirkland MD Work Phone: [facility] 02-05-2022 11:14-0400 Diastolic blood pressure 78 mm[Hg] Konstantin Kirkland MD Work Phone: [facility] 02-05-2022 11:14-0400 Heart rate 94 /min Konstantin Kirkland MD Work Phone: [facility] 02-05-2022 11:14-0400 Systolic blood pressure 131 mm[Hg] Konstantin Kirkland MD Work Phone: [facility] 12-06-2021 13:52-0400 Body height 165.1 cm Pacc 3 Work Phone: [facility] 12-06-2021 13:52-0400 Body temperature 97.3 [degF] Pacc 3 Work Phone: [facility] 12-06-2021 13:52-0400 Body weight 79.02 kg Pacc 3 Work Phone: [facility] 12-06-2021 13:52-0400 Diastolic blood pressure 76 mm[Hg] Pacc 3 Work Phone: [facility] 12-06-2021 13:52-0400 Heart rate 73 /min Pacc 3 Work Phone: [facility] 12-06-2021 13:52-0400 Respiratory rate 16 /min Pacc 3 Work Phone: [facility] 12-06-2021 13:52-0400 SaO2% (BldA) [Mass fraction] 100 % Pacc 3 Work Phone: [facility] 12-06-2021 13:52-0400 Systolic blood pressure 111 mm[Hg] Pacc 3 Work Phone: [facility] 12-04-2021 14:12-0400 Body height 165.1 cm Konstantin Kirkland MD Work Phone: [facility] 12-04-2021 14:12-0400 Body temperature 97.59 [degF] Konstantin Kirkland MD Work Phone: [facility] 12-04-2021 14:12-0400 Body weight 79.2 kg Konstantin Kirkland MD Work Phone: [facility] 12-04-2021 14:12-0400 Diastolic blood pressure 75 mm[Hg] Konstantin Kirkland MD Work Phone: [facility] 12-04-2021 14:12-0400 Heart rate 67 /min Konstantin Kirkland MD Work Phone: [facility] 12-04-2021 14:12-0400 Systolic blood pressure 119 mm[Hg] Konstantin Kirkland MD Work Phone: [facility] 10-11-2021 09:30-0400 Body height 165.1 cm Feng Wright MD Work Phone: [facility] 10-11-2021 09:30-0400 Body weight 77.97 kg Feng Wright MD Work Phone: [facility] 10-11-2021 09:30-0400 Heart rate 106 /min Feng Wright MD Work Phone: [facility] 10-11-2021 09:30-0400 SaO2% (BldA) [Mass fraction] 98 % Feng Wright MD Work Phone: [facility] 09-19-2021 11:31-0400 Body height 166.4 cm Yana Ziol STROKE COORDINATOR.CHALK TESTER Work Phone: [facility] 09-19-2021 11:31-0400 Body temperature 97.9 [degF] Yana Ziol STROKE COORDINATOR.CHALK TESTER Work Phone: [facility] 09-19-2021 11:31-0400 Body weight 78.47 kg Yana Ziol STROKE COORDINATOR.CHALK TESTER Work Phone: [facility] 09-19-2021 11:31-0400 Diastolic blood pressure 80 mm[Hg] Yana Ziol STROKE COORDINATOR.CHALK TESTER Work Phone: [facility] 09-19-2021 11:31-0400 Systolic blood pressure 122 mm[Hg] Yana Ziol STROKE COORDINATOR.CHALK TESTER Work Phone: [facility] 09-13-2021 23:55-0400 Body temperature 98.24 [degF] Kaylinn Dokken [facility] 09-13-2021 23:55-0400 Diastolic blood pressure 70 mm[Hg] Kaylinn Dokken [facility] 09-13-2021 23:55-0400 Heart rate 70 /min Kaylinn Dokken [facility] 09-13-2021 23:55-0400 Mean blood pressure 90 mm[Hg] Kaylinn Dokken [facility] 09-13-2021 23:55-0400 Respiratory rate 17 /min Kaylinn Dokken [facility] 09-13-2021 23:55-0400 SaO2% (BldA) [Mass fraction] 99 % Kaylinn Dokken [facility] 09-13-2021 23:55-0400 Systolic blood pressure 130 mm[Hg] Kaylinn Dokken [facility] 09-13-2021 20:33-0400 Body temperature 98.06 [degF] Kaylinn Dokken [facility] 09-13-2021 20:33-0400 Diastolic blood pressure 90 mm[Hg] Kaylinn Dokken [facility] 09-13-2021 20:33-0400 Heart rate 110 /min Altheaylinn Dokken [facility] 09-13-2021 20:33-0400 Respiratory rate 15 /min Kristianinn Dokken [facility] 09-13-2021 20:33-0400 SaO2% (BldA) [Mass fraction] 98 % Altheaylinn Dokken [facility] 09-13-2021 20:33-0400 Systolic blood pressure 135 mm[Hg] nancyinn Dokken [facility] Encounters Encounter Date Encounter Type Care Provider Facility Start: 02-01-2025 ambulatory Ximena Mcghee Facility :[facility] Start: 01-26-2025 End: 01-26-2025 ambulatory Isabel Marino Facility:[facility] Start: 01-11-2025 End: 01-11-2025 Patient encounter procedure Ximena Mcghee [facility] -[facility] Work Phone: Start: 01-11-2025 End: 01-11-[address] Thomas Salinas MD Work Phone: [facility] Start: 12-28-2024 End: 12-28-2024 Patient encounter procedure Barbie ESCOBAR -[facility] Work Phone: Start: 12-28-2024 End: 12-28-[address] Thomas Salinas MD Work Phone: [facility] Start: 12-15-2024 End: 12-15-[address] Maryann Bajwa DO -[facility] Work Phone: Start: 12-15-2024 End: 12-15-[address] Thomas Salinas MD Work Phone: [facility] Start: 12-01-2024 End: 12-01-2024 Patient encounter procedure Barbie ESCOBAR -[facility] Work Phone: Start: 12-01-2024 End: 12-01-[address] Thomas Salinas MD Work Phone: [facility] Start: 12-01-2024 End: 12-01-2024 ambulatory Ximena Mcghee Facility:[facility] Start: 11-09-2024 End: 11-09-2024 Patient encounter procedure Ximena Mcghee [facility] -[facility] Work Phone: Start: 11-09-2024 End: 11-09-[address] Thomas Salinas MD Work Phone: [facility] Start: 10-12-2024 End: 10-12-[address] Isabel Marino MD -[facility] Work Phone: Start: 10-12-2024 End: 10-12-[address] Thomas Salinas MD Work Phone: [facility] Start: 10-08-2024 End: 10-08-[address] Thomas Salinas MD Work Phone: -Lab [facility] Start: 10-08-2024 End: 10-08-[address] Isabel Marino MD -Lab [facility] Start: 10-08-2024 End: 10-08-2024 ambulatory THOMAS SALINAS [facility] Start: 10-08-2024 End: 10-08-2024 ambulatory Isabel Marino Facility:[facility] Start: 09-14-2024 End: 09-14-2024 Patient encounter procedure Ximena Juan COBBM -[facility] Work Phone: Start: 09-14-2024 End: 09-14-[address] Thomas Salinas MD Work Phone: [facility] Work Phone: Start: 08-17-2024 End: 08-17-2024 Patient encounter procedure Barbie [place] DIRECTOR OF CONSTRUCTION-C -[facility] Work Phone: Start: 08-17-2024 End: 08-17-2024 ambulatory Barbie [place] DIRECTOR OF CONSTRUCTION Facility:[facility] Start: 08-05-2024 End: 08-05-2024 Patient encounter procedure Barbie Yanestings DIRECTOR OF CONSTRUCTION-C -[facility] Work Phone: Start: 08-05-2024 End: 08-05-2024 ambulatory Barbie Paula DIRECTOR OF CONSTRUCTION Facility:[facility] Start: 07-31-2024 End: 07-31-[address] Maryann Bajwa DO -[facility] Start: 07-31-2024 End: 07-31-2024 ambulatory Maryann Bajwa Facility:[facility] Start: 07-20-2024 End: 07-20-[address] Royce Chapin DO Work Phone: [facility] Work Phone: Start: 07-20-2024 End: 07-20-[address] Maryann Bajwa DO -Laboratory, Specimen Work Phone: Start: 07-20-2024 End: 07-20-[address] Maryann Bajwa DO -[facility] Work Phone: Start: 07-20-2024 End: 07-20-2024 ambulatory Maryann Bajwa Facility:[facility] Start: 07-20-2024 End: 07-20-2024 ambulatory Maryann Bajwa Facility:[facility] Start: 07-03-2024 Non-patient / Non-visit Renay gu RN -[facility] Work Phone: Start: 07-03-2024 ambulatory Renay Larose Facility :[facility] Start: 07-02-2024 End: 07-02-[address] Royce Chapin DO Work Phone: [facility] Work Phone: Start: 07-02-2024 End: 07-02-[address] Maryann Bajwa DO -Ultrasound, [facility] Work Phone: Start: 07-02-2024 End: 07-02-2024 ambulatory Maryann Bajwa Facility:[facility] Start: 06-27-2024 End: 06-27-[address] Royce Chapin DO Work Phone: [facility] Work Phone: Start: 06-27-2024 End: 06-27-[address] Maryann Bajwa DO -Laboratory Work Phone: Start: 06-27-2024 End: 06-27-2024 ambulatory Maryann Bajwa Facility:[facility] Start: 06-25-2024 End: 06-25-[address] Royce Chapin DO Work Phone: [facility] Work Phone: Start: 06-25-2024 End: 06-25-[address] Maryann Richards, [facility] Work Phone: Start: 06-25-2024 End: 06-25-[address] Royce Chapin DO Work Phone: [facility] Work Phone: Start: 06-25-2024 End: 06-25-[address] Maryann DEVILab, [facility] Start: 06-25-2024 End: 06-25-2024 ambulatory Maryann Bajwa Facility:[facility] Start: 06-18-2024 End: 06-18-[address] Royce Chapin DO Work Phone: [facility] Work Phone: Start: 06-18-2024 End: 06-18-[address] Maryann DEVILab, [facility] Start: 06-18-2024 End: 06-18-2024 ambulatory Maryann Bajwa Facility:[facility] Start: 06-16-2024 End: 06-16-[address] Royce Chapin DO Work Phone: [facility] Work Phone: Start: 06-16-2024 End: 06-16-[address] Maryann López, [facility] Start: 06-16-2024 End: 06-16-2024 ambulatory Maryann Bajwa Facility:[facility] Start: 04-14-2024 End: 04-14-2024 Patient encounter procedure Barbie Mitchell DIRECTOR OF CONSTRUCTION-C -[facility] Work Phone: Start: 04-14-2024 End: 04-14-2024 ambulatory Barbie Mitchell DIRECTOR OF CONSTRUCTION Facility:[facility] Start: 04-14-2024 End: 04-14-2024 ambulatory Barbie Mitchell DIRECTOR OF CONSTRUCTION Facility:[facility] Start: 04-06-2024 End: 04-06-[address] Isabel Marino MD -Lab, [facility] Start: 04-06-2024 End: 04-06-2024 ambulatory Isabel Marino Facility:[facility] Start: 04-03-2024 End: 04-03-[address] Isabel Marino MD -Lab, [facility] Start: 04-03-2024 End: 04-03-2024 ambulatory Isabel Marino Facility:[facility] Start: 04-01-2024 End: 04-01-2024 Emergency department patient visit Dr. Royce Chapin DO -Emergency Department Work Phone: Start: 07-29-2023 End: 07-29-2023 ambulatory THOMAS Dayne BRAD Facility:[facility] Start: 07-27-2023 End: 07-27-2023 [facility] Start: 07-27-2023 End: 07-27-2023 Office outpatient visit 15 minutes Diana Trejo APRN.CNP Work Phone: [facility] Comment on above: Diarrhea, unspecifie d type (Primary Dx) Start: 05-16-2023 End: 05-16-2023 Emergency department patient visit THOMAS F BRAD Facility:[facility] Start: 03-02-2023 ambulatory THOMAS F BRAD Fa cility:[facility] Start: 03-02-2023 End: 03-02-2023 Subsequent hospital visit by physician Mri [facility] (1.5t) Radiology Comment on above: Spinal stenosis of l umbar region with neurogenic claudication [M48.062] Start: 02-06-2023 End: 02-06-2023 ambulatory THOMAS F BRAD Facility:[facility] Start: 02-06-2023 End: 02-06-2023 Patient encounter procedure Konstantin Kirkland MD Work Phone: Neurosurgery Comment on above: Radiculopathy, lumba r region (Primary Dx); Spinal stenosis of lumbar region with neurogenic claudication Start: 12-31-2022 End: 12-31-2022 ambulatory Nehemias Suarez PT, DPT Work Phone: [facility] Outpatient Physical Therapy Comment on above: Chronic bilateral lo w back pain with right-sided sciatica (Primary Dx) Start: 11-28-2022 End: 11-28-2022 ambulatory Nehemias Suarez PT, DPT Work Phone: [facility] Outpatient Physical Therapy Comment on above: Chronic bilateral lo w back pain with right-sided sciatica (Primary Dx) Start: 10-24-2022 End: 10-25-2022 ambulatory THOMAS F BRYANTETTER Facility:[facility] Start: 09-12-2022 End: 09-13-2022 ambulatory THOMAS F BRYANTETTNIKO Facility:[facility] Start: 09-12-2022 End: 09-13-2022 ambulatory Nehemias Suarez PT, DPT Work Phone: [facility] Outpatient Physical Therapy Comment on above: Chronic bilateral lo w back pain with right-sided sciatica (Primary Dx) Start: 08-29-2022 End: 08-30-2022 ambulatory THOMAS F BRYANTETTER Facility:[facility] Start: 08-27-2022 ambulatory Konstantin Kirkland MD Work Phone: [facility] Start: 08-27-2022 Letter encounter Konstantin post MD Work Phone: [facility] Comment on above: Jury Duty Letter Start: 08-15-2022 End: 08-16-2022 ambulatory Nehemias Suarez PT, DPT Work Phone: [facility] Outpatient Physical Therapy Comment on above: Chronic bilateral lo w back pain with right-sided sciatica (Primary Dx) Start: 07-30-2022 End: 07-30-2022 ambulatory Konstantin Kirkland MD Work Phone: [facility] Comment on above: Radiculopathy, lumba r region (Primary Dx) Start: 07-30-2022 End: 07-30-2022 Telemedicine consultation with patient Konstantin Kirkland MD Work Phone: [facility] Start: 07-16-2022 End: 07-16-2022 ambulatory THOMAS SALINAS Facility:[facility] Start: 07-16-2022 End: 07-16-2022 ambulatory Nehemias Suarez PT, DPT Work Phone: [facility] Outpatient Physical Therapy Comment on above: Chronic bilateral lo w back pain with right-sided sciatica (Primary Dx) Start: 07-11-2022 End: 07-11-2022 ambulatory [facility] Work Phone: Start: 07-11-2022 End: 07-11-2022 Patient encounter procedure [facility]-Ultrasound, [facility] Start: 07-09-2022 End: 07-09-2022 ambulatory NEHEMIAS SUAREZ Facility:[facility] Start: 07-09-2022 End: 07-09-2022 ambulatory Nehemias Suarez PT, DPT Work Phone: [facility] Outpatient Physical Therapy Comment on above: Chronic bilateral lo w back pain with right-sided sciatica (Primary Dx) Start: 07-02-2022 End: 07-02-2022 ambulatory KONSTANTIN KIRKLAND Facility:[facility] Start: 06-25-2022 End: 06-25-2022 ambulatory NEHEMIAS SUAREZ Facility:[facility] Start: 06-25-2022 End: 06-25-2022 ambulatory Nehemias Suarez PT, DPT Work Phone: [facility] Outpatient Physical Therapy Comment on above: Chronic bilateral lo w back pain with right-sided sciatica (Primary Dx) Start: 06-18-2022 End: 06-18-2022 ambulatory NEHEMAIS SUAREZ Facility:[facility] Start: 06-11-2022 End: 06-11-2022 ambulatory KONSTANTIN HABROCCO Facility:[facility] Start: 06-11-2022 End: 06-11-2022 ambulatory Juliano Urias [facility] Outpatient Physical Therapy Comment on above: Chronic bilateral lo w back pain with right-sided sciatica (Primary Dx) Start: 06-04-2022 End: 06-04-2022 ambulatory THOMAS SALINAS Facility:[facility] Start: 05-30-2022 End: 05-30-2022 ambulatory THOMAS SALINAS Facility:[facility] Start: 05-30-2022 End: 05-30-2022 ambulatory Nehemias Suarez PT, DPT Work Phone: [facility] Outpatient Physical Therapy Comment on above: Chronic bilateral lo w back pain with right-sided sciatica (Primary Dx) Start: 05-28-2022 End: 05-28-2022 ambulatory THOMAS F BRAD Facility:[facility] Start: 05-21-2022 End: 05-21-2022 ambulatory THOMAS F AVIVA Facility:[facility] Start: 05-21-2022 End: 05-21-2022 ambulatory Nehemias Suarez PT, DPT Work Phone: [facility] Outpatient Physical Therapy Comment on above: Chronic bilateral lo w back pain with right-sided sciatica (Primary Dx) Start: 05-07-2022 End: 05-07-2022 ambulatory [facility] Outpatient Physical Therapy Comment on above: Chronic bilateral lo w back pain with right-sided sciatica (Primary Dx) Tail bone pain Start: 05-07-2022 Letter encounter Konstantin post MD Work Phone: Neurosurgery Comment on above: [employer] letter Start: 04-30-2022 End: 04-30-2022 ambulatory [facility] Outpatient Physical Therapy Comment on above: Chronic bilateral lo w back pain with right-sided sciatica (Primary Dx) Start: 04-25-2022 End: 04-25-2022 ambulatory THOMAS Dayne BRAD Facility:[facility] Start: 04-25-2022 End: 04-25-2022 ambulatory Konstantin Kirkland MD Work Phone: Neurosurgery Comment on above: Radiculopathy, lumba r region (Primary Dx) Start: 04-25-2022 End: 04-25-2022 Telemedicine consultation with patient Konstantin Kirkland MD Work Phone: Start: 04-20-2022 End: 04-20-2022 ambulatory Nehemias Suarez PT, DPT Work Phone: [facility] Outpatient Physical Therapy Comment on above: Radiculopathy, lumba r region; Chronic bilateral low back pain with right-sided sciatica Start: 04-04-2022 End: 04-04-2022 ambulatory THOMAS SALINAS Facility:[facility] Start: 04-04-2022 End: 04-04-2022 Patient encounter procedure Konstantin Kirkland MD Work Phone: Neurosurgery Comment on above: Radiculopathy, lumba r region (Primary Dx) Start: 03-29-2022 Telephone encounter Konstantin shaw MD Work Phone: Neurology Comment on above: Post Op Symptoms Start: 03-21-2022 ambulatory Konstantin Kirkland MD Work Phone: [facility] Comment on above: [employer] disibility paperwork Start: 03-20-2022 End: 03-20-2022 ambulatory KONSTANTIN KIRKLAND Facility:[facility] Start: 03-19-2022 [facility] Start: 03-19-2022 End: 03-19-2022 Admission to establishment [place] [id number] Work Phone: [facility] Start: 03-19-2022 End: 03-20-2022 [facility] Comment on above: Pre-op evaluation [...] End: 03-16-2022 Subsequent hospital visit by physician [facility] (1.5t) Radiology Comment on above: Spinal stenosis of l umbar region with neurogenic claudication [M48.062] Start: 03-14-2022 Refill Konstantin Kirkland MD Work Phone: Neurosurgery Comment on above: Refill Request Start: 03-12-2022 Telephone encounter Konstantin shaw MD Work Phone: Neurology Comment on above: Orders Start: 03-11-2022 ambulatory Ximena OLVERA E [employer] Comment on above: Back Pain Start: 03-05-2022 End: 03-05-2022 Patient encounter procedure Konstantin Kirkland MD Work Phone: [facility] Comment on above: Lumbar radiculopathy (Primary Dx) Start: 02-19-2022 Telephone encounter Konstantin shaw MD Work Phone: Neurology Comment on above: Medication Problem Start: 02-08-2022 ambulatory Konstantin Kirkland MD Work Phone: Start: 02-08-2022 Letter encounter Konstantin post MD [...] Start: 12-19-2021 End: 12-19-2021 ambulatory KONSTANTIN KIRKLAND Facility:[facility] Start: 12-10-2021 ambulatory Ashwini OLIVERCHALK TESTER Work Phone: Pain Management Comment on above: Gabapentin and Robax in Start: 12-07-2021 Telephone encounter Konstantin shaw MD Work Phone: Neurology Comment on above: Insurance Authorizat ion (Clinicals needed for P.A. for surgery) Start: 12-06-2021 End: 12-06-2021 Admission to establishment [facility] 3 Work Phone: [place] Start: 12-06-2021 End: 12-06-2021 [facility] 3 Work Phone: Pre Anesthesia Comment on above: Pre-op evaluation (P rimary Dx); Lumbar disc herniation; Known health problems: none Start: 12-06-2021 End: 12-06-2021 Preprocedural examination done [facility] 3 Work Phone: Pre Anesthesia Start: 12-05-2021 ambulatory Konstantin Kirkland MD Work Phone: Neurosurgery Start: 12-05-2021 Patient encounter status Konstantin Kirkland MD Work Phone: Neurosurgery Start: 12-04-2021 End: 12-04-2021 Patient encounter procedure Konstantin Kirkland MD Work Phone: Neurosurgery Comment on above: Radiculopathy, lumba r region (Primary Dx) Start: 12-04-2021 End: 12-04-2021 ambulatory Ashwini Cadet APRN.CHALK TESTER Work Phone: Pain Management Comment on above: Lumbar disc herniati on (Primary Dx); Radiculopathy, lumbar region Start: 12-04-2021 E-mail encounter fro m caregiver Yana Ballard STROKE COORDINATOR.CHALK TESTER Work Phone: [place] Start: 12-04-2021 End: 12-04-2021 Telemedicine consultation with patient Ashwini Schreiberle STROKE COORDINATOR.CHALK TESTER Work Phone: [facility] Start: 12-03-2021 ambulatory Yana E Ziol A PRN.CHALK TESTER Work Phone: Comment on above: Potassium Start: 11-23-2021 Telephone encounter Ashwini Schreiberbennett [facility] n Management Comment on above: STD Paperwork (Recei velma 11/23) Start: 11-22-2021 End: 11-22-2021 ambulatory Ashwini Lopez Cadet STROKE COORDINATOR.CHALK TESTER Work Phone: Pain Management Comment on above: Lumbar disc herniati on (Primary Dx); Radiculopathy, lumbar region Start: 11-22-2021 End: 11-22-2021 Telemedicine consultation with patient Ashwini Schreiberle STROKE COORDINATOR.CHALK TESTER Work Phone: [facility] Start: 11-16-2021 End: 11-16-2021 ambulatory Yana E Ziol STROKE COORDINATOR.CHALK TESTER Work Phone: Comment on above: ER Visit Lumbar disc herniati on (Primary Dx); Radiculopathy, lumbar region Start: 11-16-2021 Telephone encounter Ashwini Lopez Abdoul guajardo APRN.CHALK TESTER Work Phone: Pain Management Comment on above: Patient Update Start: 11-16-2021 End: 11-16-2021 Telemedicine consultation with patient Ashwini Schreiberle STROKE COORDINATOR.CHALK TESTER Work Phone: [facility] Start: 11-15-2021 End: 11-15-2021 ambulatory Dulce Wong STROKE COORDINATOR.CHALK TESTER Work Phone: Telemedicine Comment on above: Treatment not availa ble (Primary Dx) Start: 11-15-2021 End: 11-15-2021 Telemedicine consultation with patient Dulce Wong STROKE COORDINATOR.CHALK TESTER Work Phone: [facility] Start: 11-04-2021 Refill Yana E Ziol A PRN.CHALK TESTER Work Phone: Comment on above: Refill Request Start: 11-02-2021 [facility] Get Medical Advice Yana Ballard STROKE COORDINATOR.CHALK TESTER Work Phone: Comment on above: Muscle Relaxer Refil l Start: 10-11-2021 End: 10-11-2021 Patient encounter procedure Feng Wright MD Work Phone: Pain Management Comment on above: Radiculopathy, lumba r region (Primary Dx); Lumbar disc herniation Lumbar disc herniati on (Primary Dx); Radiculopathy, lumbar region Start: 10-06-2021 ambulatory Yana E Jumaol A PRN.CHALK TESTER Work Phone: Comment on above: MRI Start: 10-06-2021 Telephone encounter Yana sánchez APRN.CHALK TESTER Work Phone: Comment on above: Results (MRI) Refill Request Start: 10-05-2021 End: 10-05-2021 Subsequent hospital visit by physician [facility] (1.5t) Radiology Comment on above: Spinal stenosis of l umbar region without neurogenic claudication [M48.061] Start: 09-23-2021 ambulatory Yana Ballard A PRN.CHALK TESTER Work Phone: Comment on above: Chiropractor Start: 09-19-2021 End: 09-19-2021 Patient encounter procedure Yana Ballard STROKE COORDINATOR.CHALK TESTER Work Phone: Comment on above: Spinal stenosis of l umbar region without neurogenic claudication Start: 09-13-2021 End: 09-13-2021 Emergency department patient visit [facility] Procedures Date Procedure Procedure Detail Performing Clinician Start: 12-01-2024 Serologic test for syphilis Dr. Thomas Salinas MD Work Phone: Start: 10-08-[address] Thomas paula MD Work Phone: Comment on above: Test Ordered: [id number] AFP, Serum, Open Spina BifidaResults DIRECTOR OF CONSTRUCTION NOLAB Reference Range: .Test Results: TG Reference Range: .Please refer to the following specimen for additional labresults.Please refer to [id number] for results.Gest. Age on Collection Date DIRECTOR OF CONSTRUCTION [place] Reference Range: .Gestat. Age Based On DIRECTOR OF CONSTRUCTION [facility] Reference Range: .Maternal Age At BALAJI DIRECTOR OF CONSTRUCTION [place] Reference Range: .Race DIRECTOR OF CONSTRUCTION [place] Reference Range: .Weight DIRECTOR OF CONSTRUCTION [place] Reference Range: .Insulin Dep Diabetes DIRECTOR OF CONSTRUCTION [place] Reference Range: .Multiple Gestation DIRECTOR OF CONSTRUCTION [place] Reference Range: .AFP Value NOLAB Reference Range: .Test not performedAFP MoM DIRECTOR OF CONSTRUCTION [place] Reference Range: .OSBR Risk 1 IN DIRECTOR OF CONSTRUCTION [place] Reference Range: .Interpretation DIRECTOR OF CONSTRUCTION [place] Reference Range: .Comment: DIRECTOR OF CONSTRUCTION [place] Reference Range: .Tracking DIRECTOR OF CONSTRUCTION [place] Reference Range: .Performed at: - [facility] [address] [id number] Director: Norm Gonzáles PhD, Phone: [phone] at: - [facility] [id number] [place], [place] [id number] Director: Zelalem Ernst [facility] [facility], Phone: [phone] Start: 07-31-2024 Hep[address] C antibody measurement Dr. [...] HCV Quant by PCR testing - HCVPCR #[id number] Non Reactive: < 0.8 Equivocal: >/= 0.8 [...] echography Start: 03-19-2022 End: 03-19-2022 Antibody screen [facility] Work Phone: Comment on above: Order Comment: Speci men Type: BLOOD SPECIMEN Ordering Facility: [facility] Address: [address] [place] [address] Performed By: #### T [id number] #### [facility] [place] [id number] [address] [place] [address] [facility] Start: 03-16-2022 Mri spinal canal lum bar w/o contrast material Radha Dickens PA-C Work Phone: Start: 12-02-2021 Adult depression scr eening assessment Ashwini Cadet STROKE COORDINATOR.CHALK TESTER Work Phone: Start: 10-05-2021 Mri spinal canal lum bar w/o contrast material Yana Ballard STROKE COORDINATOR.CHALK TESTER Work Phone: Start: 06-12-2021 Adult depression scr eening assessment Yana Ballard CHALK TESTER Work Phone: Plan of Treatment Date Care Activity Detail Author Start: 05-16-2030 Urine microalbumin profile [facility] Start: 12-01-2024 CBC W Auto Different ial panel - Blood [facility] Start: 12-01-2024 Measurement of gluco se 2 hours after glucose challenge for glucose tolerance test [facility] Start: 12-01-2024 Serologic test for syphilis [facility] Start: 12-01-2024 [facility] Start: 04-01-2024 [facility] Start: 12-15-2023 Influenza vaccination Influenz a Vaccine (Season Ended) [facility] Start: 11-08-2023 PAP TESTING PAP TESTING [facility] Start: 11-08-2023 Screening for malign ant neoplasm of cervix Pap Testing [facility] Start: 04-15-2023 Behavioral Health Screening Behavioral Health Screening [facility] Start: 12-14-2022 Covid-19 Vaccine ( season) Covid-19 Vaccine ( season) [facility] Start: 12-14-2022 Influenza vaccination C [facility] Start: 12-02-2022 Adult depression screening assessment DEPRESSION SCREENING [facility] Start: 06-12-2022 Adult depression screening assessment DEPRESSION SCREENING [facility] Start: 04-15-2022 DEPRESSION ASSESSMENT DEPRESSION ASS ESSMENT [facility] Start: 2022 HPV TESTING HPV TESTING [facility] Start: 2022 Screening for malign ant neoplasm of cervix HPV Testing [facility] Start: 12-14-2021 Influenza vaccination C [facility] Start: 12-06-2021 End: 02-05-2022 CONFIRM BLOOD TYPE [facility] Work Phone: Comment on above: Expected: 12/06/2021 , Expires: 02/05/2022 Start: 12-06-2021 End: 02-05-2022 TYPE AND SCREEN,30 DAY [facility] Work Phone: Comment on above: Expected: 12/06/2021 , Expires: 02/05/2022 Start: 12-04-2021 End: 02-03-2022 Electrolytes 1998 panel - Serum or Plasma ELECTROLYTES BLD PNL Lab Routine Hypokalemia Expected: 12/04/2021, Expires: 02/03/2022 [facility] Work Phone: Comment on above: Expected: 12/04/2021 , Expires: 02/03/2022 Start: 12-04-2021 End: 02-03-2022 Magnesium [Mass/volume] in Serum or Plasma MAGNESIUM BLD Lab Routine Hypomagnesemia Expected: 12/04/2021, Expires: 02/03/2022 [facility] Work Phone: Comment on above: Expected: 12/04/2021 , Expires: 02/03/2022 Start: 11-23-2021 End: 01-23-2022 Basic metabolic 2000 panel - Serum or Plasma BASIC METABOLIC PNL Lab Routine Hypokalemia Expected: 11/23/2021, Expires: 01/23/2022 [facility] Work Phone: Comment on above: Expected: 11/23/2021 , Expires: 01/23/2022 Start: 11-23-2021 End: 01-23-2022 Magnesium [Mass/volume] in Serum or Plasma MAGNESIUM BLD Lab Routine Hypomagnesemia Expected: 11/23/2021, Expires: 01/23/2022 [facility] Work Phone: Comment on above: Expected: 11/23/2021 , Expires: 01/23/2022 Start: 11-07-2021 PAP TESTING PAP TESTING [facility] Start: 04-15-2021 DEPRESSION ASSESSMENT DEPRESSION ASS ESSMENT [facility] Start: 2010 HEPATITIS C SCREENING HEPATITIS C [facility] Start: 2010 Hepatitis C screening Hepatitis C [facility] Start: 2010 HIV SCREENING HIV SCREENING [facility] Start: 2010 HIV screening HIV Screening [facility] Start: 1997 COVID-19 VACCINE (#1) COVID-19 VACCI NE (#1) [facility] Start: 1992 COVID-19 VACCINE (#1) COVID-19 VACCI NE (#1) [facility] CBC W Auto Different ial panel - Blood [facility] Clostridioides diffi cile toxin genes [Presence] in Stool by YANDY with probe detection C. DIFFICILE PCR Lab Routine Diarrhea, unspecified type Ordered: 07/27/2023 [facility] Work Phone: Comment on above: Ordered: 07/27/2023 ENTERIC BACTERIAL PA KATHY BY PCR ENTERIC BACTERIAL PANEL BY PCR Lab Routine Diarrhea, unspecified type Ordered: 07/27/2023 [facility] Work Phone: Comment on above: Ordered: 07/27/2023 Erythrocyte mean corpuscular volume determination [facility] Hematocrit [Volume Fraction] of Blood [facility] Hemoglobin [Mass/vol ume] in Blood [facility] Leukocytes [#/volume ] in Blood [facility] Mean corpuscular hemoglobin concentration determination [facility] Mean corpuscular hemoglobin determination [facility] Measurement of gluco se 2 hours after glucose challenge for glucose tolerance test [facility] End: 10-19-2022 Mri spinal canal lumbar w/o contrast material MRI LUMBAR SPINE WO IVCON Radiology Routine Spinal stenosis of lumbar region without neurogenic claudication 1 Occurrences starting 09/19/2021 until 10/19/2022 [facility] Work Phone: Comment on above: 1 Occurrences starti ng 09/19/2021 until 10/19/2022 End: 04-11-2023 Mri spinal canal lumbar w/o contrast material MRI LUMBAR SPINE WO IVCON Radiology Routine Spinal stenosis of lumbar region with neurogenic claudication 1 Occurrences starting 03/12/2022 until 04/11/2023 [facility] Work Phone: Comment on above: 1 Occurrences starti ng 03/12/2022 until 04/11/2023 End: 03-07-2024 Mri spinal canal lumbar w/o contrast material MRI LUMBAR SPINE WO IVCON Radiology Routine Spinal stenosis of lumbar region with neurogenic claudication 1 Occurrences starting 02/06/2023 until 03/07/2024 [facility] Work Phone: Comment on above: 1 Occurrences starti ng 02/06/2023 until 03/07/2024 Neutrophil count [facility] Neutrophil percent differential count [facility] Njx anes&/strd w/img tfrml edrl lmbr/sac 1 lvl INJ TRANSFORAMINAL EPID ANES/STER LS SINGL Procedures Routine Lumbar disc herniation Radiculopathy, lumbar region 1 Occurrences starting 10/11/2021 [facility] Work Phone: Comment on above: 1 Occurrences starti ng 10/11/2021 Ova and parasites identified in Unspecified specimen by Light microscopy OVA + PARA MICROSCOPIC Microbiology Routine Diarrhea, unspecified type Ordered: 07/27/2023 [facility] Work Phone: Comment on above: Ordered: 07/27/2023 Patient Education Miscarriage Th reatened ED [facility] Work Phone: Patient referral [facility] Work Phone: Platelets [#/volume] in Blood [facility] Procedure [facility] Red blood cell count [facility] Red cell distributio n width determination [facility] Serologic test for syphilis [facility] Immunizations Immunization Date Immunization Notes Care Provider [facility] 12-15-2024 influenza, injectable, madin renee canine kidney, preservative free Dr. Thomas Salinas MD Work Phone: [facility] 12-15-2024 tetanus toxoid, reduced diphtheria toxoid, and acellular pertussis vaccine, adsorbed Dr. Thomas Salinas MD Work Phone: [facility] 05-16-2020 diphtheria, tetanus toxoids and acellular pertussis vaccine, unspecified formulation Dulce Wong STROKE COORDINATOR.CHALK TESTER Work Phone: [facility] Work Phone: 05-16-2020 tetanus toxoid, reduced diphtheria toxoid, and acellular pertussis vaccine, adsorbed Yana Ziol STROKE COORDINATOR.CHALK TESTER Work Phone: [facility] 01-25-2020 Influenza, injectable, Madin [place] Canine Kidney, preservative free, quadrivalent Dulce Wong STROKE COORDINATOR.CHALK TESTER Work Phone: [facility] Work Phone: 01-25-2020 influenza, injectable,quadrivale nt, preservative free, pediatric [facility] 01-25-2020 influenza, seasonal, injectable, preservative free Dulce Wong STROKE COORDINATOR.CHALK TESTER Work Phone: [facility] Work Phone: 01-25-2020 influenza virus vaccine, unspecified formulation Nehemias Suarez PT, DPT Work Phone: [facility] 09-24-2006 Meningococcal, MCV4, unspecified conjugate formulation(groups A, C, Y and W-135) Yana Ziol STROKE COORDINATOR.CHALK TESTER Work Phone: [facility] 09-24-2006 tetanus toxoid, reduced diphtheria toxoid, and acellular pertussis vaccine, adsorbed Yana Ziol STROKE COORDINATOR.CHALK TESTER Work Phone: [facility] 10-25-2004 measles, mumps and rubella virus vaccine Yana Ziol STROKE COORDINATOR.CHALK TESTER Work Phone: [facility] 04-08-1999 Chicken Pox (disease) Yana Ziol STROKE COORDINATOR.CHALK TESTER Work Phone: [facility] Work Phone: 11-16-1997 diphtheria, tetanus toxoids and acellular pertussis vaccine Yana Ziol STROKE COORDINATOR.CHALK TESTER Work Phone: [facility] 11-16-1997 poliovirus vaccine, inactivated Yana Ziol STROKE COORDINATOR.CHALK TESTER Work Phone: [facility] 09-20-1993 diphtheria, tetanus toxoids and acellular pertussis vaccine Yana Ziol STROKE COORDINATOR.CHALK TESTER Work Phone: [facility] 09-20-1993 poliovirus vaccine, inactivated Yana Ziol STROKE COORDINATOR.CHALK TESTER Work Phone: [facility] 06-14-1993 haemophilus influenzae type b vaccine, HbOC conjugate Yana Ziol STROKE COORDINATOR.CHALK TESTER Work Phone: [facility] 06-14-1993 measles, mumps and rubella virus vaccine Yana Ziol STROKE COORDINATOR.CHALK TESTER Work Phone: [facility] 01-18-1993 hepatitis B vaccine, pediatric or pediatric/adolescent dosage Yana Ziol STROKE COORDINATOR.CHALK TESTER Work Phone: [facility] 1992 diphtheria, tetanus toxoids and acellular pertussis vaccine Yana Ziol STROKE COORDINATOR.CHALK TESTER Work Phone: [facility] 1992 haemophilus influenzae type b vaccine, HbOC conjugate Yana Ziol STROKE COORDINATOR.CHALK TESTER Work Phone: [facility] 1992 hepatitis B vaccine, pediatric or pediatric/adolescent dosage Yana Ziol STROKE COORDINATOR.CHALK TESTER Work Phone: [facility] 1992 diphtheria, tetanus toxoids and acellular pertussis vaccine Yana Ziol STROKE COORDINATOR.CHALK TESTER Work Phone: [facility] 1992 haemophilus influenzae type b vaccine, HbOC conjugate Yana Ziol STROKE COORDINATOR.CHALK TESTER Work Phone: [facility] 1992 poliovirus vaccine, inactivated Yana Ziol STROKE COORDINATOR.CHALK TESTER Work Phone: [facility] 1992 hepatitis B vaccine, pediatric or pediatric/adolescent dosage Yana Ziol STROKE COORDINATOR.CHALK TESTER Work Phone: [facility] 1992 diphtheria, tetanus toxoids and acellular pertussis vaccine Yana Ziol STROKE COORDINATOR.CHALK TESTER Work Phone: [facility] 1992 haemophilus influenzae type b vaccine, HbOC conjugate Yana Ballard STROKE COORDINATOR.CHALK TESTER Work Phone: [facility] 1992 poliovirus vaccine, inactivated Yana Dennisongonzalo STROKE COORDINATOR.CHALK TESTER Work Phone: [facility] Payers Date Payer Category Payer Self-pay [id number] 2023 Unknown [id number] 2018 Private Health Insurance [facility] CHOICE PLUS [id number] 2018-Present [phone] [address] [place] [address] O [id number] 2018 Private Health Insurance [id number] 2018 Unknown [id number] 1992 Unknown [id number] 2.16.840.1.768870.3.579.2 .479 Unknown [id number] 2.16840.1.164386.3.579.2 .462 Unknown [id number] 2.16840.1.066493.3.579.2 .462 Unknown [id number] 2.840.1.764599.3.579.2 .462 Unknown [id number] 2.16840.1.344909.3.579.2 .462 Unknown [id number] 2.16840.1.446919.3.579.2 .462 Unknown [id number] 2.16.840.1.645759.3.579.2 .462 Unknown [id number] 2.16840.1.620713.3.579.2 .462 Unknown [id number] 2.16840.1.747133.3.579.2 .462 Unknown [id number] 2.16.840.1.404396.3.579.2 .462 Unknown [id number] 2.16.840.1.257631.3.579.2 .462 Unknown [id number] 2.16.840.1.539062.3.579.2 .462 Unknown [id number] 2.16.840.1.556414.3.579.2 .462 Unknown [id number] 2.840.1.114076.3.579.2 .462 Unknown [id number] 2..840.1.821408.3.579.2 .462 Unknown [id number] 2.840.1.242259.3.579.2 .462 Unknown [id number] 2.840.1.220884.3.579.2 .462 Unknown [id number] 2.840.1.194539.3.579.2 .462 Unknown [id number] 2.840.1.149878.3.579.2 .462 Unknown [id number] 2.840.1.838967.3.579.2 .462 Unknown [id number] 2.840.1.655615.3.579.2 .462 Unknown [id number] 2.840.1.984350.3.579.2 .462 Unknown [id number] 2.840.1.757030.3.579.2 .462 Unknown [id number] 2.840.1.614953.3.579.2 .462 Unknown [id number] 2.840.1.866651.3.579.2 .462 Unknown [id number] 2.840.1.056813.3.579.2 .462 Unknown [id number] 2.16840.1.214860.3.579.2 .462 Unknown [id number] 2.840.1.915065.3.579.2 .462 Unknown [id number] 2.16.840.1.978444.3.579.2 .462 Social History Date Type Detail Facility Tobacco smoking status Lana salinas [facility] Start: 06-12-2021 End: 08-15-2022 Sex Assigned At Female [facility] Start: 10-24-2015 End: 07-03-2024 Tobacco smoking status NHIS Ex-smoker [facility] End: 10-13-2013 History of tobacco use Current smoker [facility] End: 10-13-2013 History of tobacco use Cigarette Smoker [facility] Start: 10-24-2015 End: 08-15-2022 Cigarettes smoked current (pack per day) - Reported 0.8 [facility] Start: 10-24-2015 End: 12-06-2021 Tobacco use and exposure Smokeless tobacco non-user [facility] Start: 09-19-2021 End: 07-27-2023 Alcohol intake Current drinker of alcohol (finding) [facility] Start: 06-12-2021 History SDOH Alcohol Frequency 3 [facility] Start: 12-01-2019 End: 06-12-2021 History SDOH Alcohol Std Drinks 1 [facility] Start: 06-12-2021 History SDOH Alcohol Binge 2 [facility] Start: 10-31-2012 History SDOH Alcohol Comment occassionally - wine or mixed drink [facility] Start: 06-12-2021 History SDOH Social Connections Phone 5 [facility] Start: 06-12-2021 History SDOH Social Connections Meetings 98 [facility] Start: 06-12-2021 History SDOH Physical Activity DPW 0 [facility] Start: 06-12-2021 History SDOH Stress 4 [facility] Start: 11-30-2019 Education 15 [facility] Start: 10-24-2015 End: 12-04-2021 Tobacco Comment sometimes does E-cig but not very often [facility] Start: 1990 Sex Assigned At Not on file [facility] Start: 09-09-2021 End: 03-19-2022 Exposure to SARS-CoV-2 (event) Not sure [facility] Start: 12-06-2021 History SDOH Alcohol Comment a glass of wine twice a week [facility] Start: 12-06-2021 Tobacco Comment Last e cig 2 weeks ago [facility] Start: 10-02-2021 Tobacco smoking status NHIS Unknown if ever smoked [facility] Start: 1990 Sex Assigned At Female [facility] Do you belong to any clubs or organizations such as buddhism groups, unions, fraternal or athletic groups, or school groups? No [facility] How often do you att end meetings of the clubs or organizations you belong to? Patient refused [facility] Are you now , , , , never or living with a partner? [facility] How often to you hav e a drink containing alcohol? 2-4 times a month [facility] How many standard dr inks containing alcohol do you have on a typical day? 1 or 2 [facility] How often do you hav e 6 or more drinks on 1 occasion? Less than monthly [facility] How hard is it for y ou to pay for the very basics like food, housing, medical care, and heating Somewhat hard [facility] Do you feel stress - tense, restless, nervous, or anxious, or unable to sleep at night because your mind is troubled all the time - these days [OSQ] Rather much [facility] (I/We) worried wheth er (my/our) food would run out before (I/we) got money to buy more. Never true [facility] Start: 06-26-2024 End: 07-23-2024 Sex Female (finding) [facility] Clinical Notes 09-14-2021 to 01-11-2025 Note Date & Type Note Facility 01-11-[address] [facility] 12-28-[address] [facility] 11-09-[address] [facility] 10-12-2024 Evaluation note Diagnosis Onset Date Resolution [...] Supervision of high-risk acute January 112024 10:15am [facility] Work Phone: 1(443) 290-960506-30-2025 [facility] [address] [place] [address], [address] [place] [address] OFFICE VISIT Date of Service: 10/12/24 MR#: [id number] Acct: [id number] Name: HANNAH HENDRICKS Rep #: [id number] : 1990 Provider: Dr. Ramakrishna Marino MD Age/Sex: 34/F Location: [facility] Status: Signed Intake Vital Signs 07/20/24 13:59 09/14/24 08:59 10/12/24 15:54 Height 5 ft 6 in 5 ft 6 in 5 ft 6 in Weight: 195 lb 6 oz BMI 31.5 BP 119/75 Intake Visit Reasons: 21wk ob Integration Director Required: No Is patient in pain?: No [...] 1 current occupational status: employed current occupation: [employer] current occupational exposures/hazards: No pets and animals: [...] 3-4 times per week duration: 15-30 minutes/day agata/sikh: Rastafari seatbelt use: always do you feel safe at home: Yes 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 Date Name GA/Weeks Outcome Route Bth Weight Gen Labor Lgth Anesthesia Del Locatn Provider FOB 08/11/20 Janie 39 live - full term 7lbs 8.5oz Female epidural [facility] Dr. Quang Samaniego 03/15/24 4 spontaneous Delivery [...] PRR,; BALAJI 02/24/25; surprise PC: Janie; : Aedn (2) : Status: Acute Qualifiers: Weeks of gestation: 20 weeks Qualified Code(s): Z3A.20 - 20 weeks gestation of Comment: Discussed genetic/carrier testing NIPT low risk, gender not selected, nl anatomy (3) Former smoker: Status: Resolved Comment: Stopped 06/16/24 Orders: Orders POC Urinalysis 2 Dip (Clinic) Today 10/12/24 162Rafa cooley MD> Date _ Isabel Marino MD [facility] Signature: Date (if applicable) CC: ~ [facility] [id number] Progress note Author Isabel Marino [facility] Note Date/Time October 12, 2024 4:21 pm [facility] [address] [place] [address], [address] [place] [address] OFFICE VISIT Date of Service: 10/12/24 MR#: [id number] Acct: [id number] Name: HANNAH HENDRICKS Rep #: [id number] : 1990 Provider: Dr. Ramakrishna Marino MD Age/Sex: 34/F Location: [facility] Status: Signed Intake Vital Signs 07/20/24 13:59 09/14/24 08:59 10/12/24 15:54 Height 5 ft 6 in 5 ft 6 in 5 ft 6 in Weight: 195 lb 6 oz BMI 31.5 BP 119/75 Intake Visit Reasons: 21wk ob Integration Director Required: No Is patient in pain?: No [...] current occupational status: employed current occupation: [employer] current occupational exposures/hazards: No pets and animals: [...] 3-4 times per week duration: 15-30 minutes/day agata/sikh: Rastafari seatbelt use: always do you feel safe at home: Yes 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 Date Name GA/Weeks Outcome Route Bth Weight Infant Gen Labor Lgth Anesthesia Del Locatn Provider FOB 08/11/20 Janie 39 live - full term 7lbs 8.5oz Female epidural [facility] Dr. Quang Samaniego 03/15/24 4 spontaneous Delivery [...] POC Urinalysis 2 Dip (Clinic) Today 10/12/24 [id number] <Electronically signed by Isabel cooley MD> Date _ Isabel Vitale Signature: Date (if applicable) CC: ~ [facility] Work Phone: 1(459) 177-439106-02-2025 Evaluation note* Diagnosis Onset Date Resolution Status [...] of high-risk acute December 28, 2024 9:42am [facility] Work Phone: 1(516) 646-408506-02-2025 [facility] [address] [place] [address], [address] [place] [address] OFFICE VISIT Date of Service: 09/14/24 MR#: [id number] Acct: [id number] Name: HANNAH HENDRICKS Rep #: [id number] : 1990 Provider: BART Mcghee Age/Sex: 34/F Location: [facility] Status: Signed Intake Vital Signs 07/20/24 13:59 08/17/24 08:32 09/14/24 08:59 Height 5 ft 6 in 5 ft 6 in 5 ft 6 in Weight: 190 lb 2 oz BMI 30.7 BP 106/71 Intake Visit Reasons: 17wk ob Chief Complaint: 17wk OB Integration Director Required: No Is patient in pain?: No [...] current occupational status: employed current occupation: [employer] current occupational exposures/hazards: No pets and animals: [...] 3-4 times per week duration: 15-30 minutes/day agata/sikh: Rastafari seatbelt use: always do you feel safe at home: Yes 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 Date Name GA/Weeks Outcome Route Bth Weight Infant Gen Labor Lgth Anesthesia Del Locatn Provider FOB 08/11/20 Janie 39 live - full term 7lbs 8.5oz Female epidural [facility] Dr. Quang Samaniego 03/15/24 4 spontaneous Delivery [...] Negative 157 -?-?-?-?-?-?-?-?-?-?-?-?- MH-No VB. Nausea improving. [facility] confirm FHT 09/14/24 -?-?-?-?-?-?-?-?-?-?-?-?- 16w 5d 190 [...] Signature: Date (if applicable) CC: ~ [facility]05-05-2025 Evaluation note* Diagnosis Onset Date Resolution Status [...] Supervision of high-risk acute December 01 8:08am [facility] Work Phone: 1(590) 856-497805-05-2025 Evaluation note* Diagnosis Onset Date Resolution Status [...] Supervision of high-risk acute December 15 9:19am [facility] Work Phone: 1(599) 393-641204-23-2025 Evaluation note* Diagnosis Onset Date Resolution Status [...] Supervision of high-risk acute December 01 8:08am [facility] Work Phone: 1(706) 891-854604-07-2025 Evaluation note* Diagnosis Onset Date Resolution Status [...] high-risk acute September 14, 2024 8 :56am [facility] Work Phone: 1(511) 414-705904-07-2025 Evaluation note* Diagnosis Onset Date Resolution Status [...] Former smoker resolved October 12, 2024 3:50pm [facility] Work Phone: 1(597) 861-987904-07-2025 Evaluation note* Diagnosis Onset Date Resolution Status [...] of high-risk acute November 09, 2024 8:49am [facility] Services Work Phone: 1(855) 437-931803-20-2025 Radiology Diagnostic study note [facility] [address] [place] [address] Transvaginal w/Preg US MR#: [id number] Acct: [id number] Name: HANNAH HENDRICKS Rep #: [id number] : 1990 F 34 From: Mavis Yuan MD PCP: Dr. Thomas Salinas MD Status: REG CLI Study:Transvaginal w/Preg US Date of Exam: 07/02/24 Exam# [id number] Ordering Dr: Maryann Castaneda DO PROCEDURE: TRANSVAGINAL [...] 3. Additional description as above. Reading Location: [facility] CC: Dr. Maryann Bajwa DO; Dr. Thomas Salinas MD ~ Awake Overnight Monitor: Signed [facility]03-14-2025 Radiology Diagnostic study note [facility] [address] [place], [place] [address] Transvaginal w/Preg US MR#: [id number] Acct: [id number] Name: HANNAH HENDRICKS Rep #: [id number] : 1990 F 34 From: Mavis Yuan MD PCP: Dr. Thomas Salinas MD Status: REG CLI Study:Transvaginal w/Preg US Date of Exam: 06/25/24 Exam# [id number] Ordering Dr: Maryann Castaneda DO PROCEDURE: TRANSVAGINAL [...] 3. Additional description as above. Reading Location: [id number] CC: Dr. Maryann Bajwa DO; Dr. Thomsa Salinas MD ~ Awake Overnight Monitor: Signed [facility]12-31-2024 Evaluation note* Diagnosis Onset Date Resolution Status Admit Date Spontaneous acute [facility] 2023 1:50pm [facility] Work Phone: 1(253) 502-911012-31-2024 Evaluation note* Diagnosis Onset Date Resolution Status Admit Date Spontaneous inactive [facility] 2023 1:50pm [facility] Work Phone: [phone] Evaluation note* Diagnosis Onset Date Resolution Status Admit Date Spontaneous inactive [facility] 2023 1:50pm Former smoker acute July 20, 2024 1:53pm History of miscarriage, currently acute July 20 1:53pm acute July 20 1:53pm Supervision of high-risk acute July 20, 2024 1:53pm [facility] Work Phone: 1(612) 545-545504-13-2024 NoteHNO ID: [id number] Author: DIANA TREJO APRN.MANDEEP Service: ? Author Type: Nurse Practitioner Type: Progress Notes Filed: 07/27/2023 12:13 Note Text: [facility] Visit Patient Name: Hannah Hendricks Primary Care Physician: Thomas Salinas MD Service Date: 07/27/2023 SUBJECTIVE: Hannah is an pleasant otherwise well 33 year old female who is here today accompanied by her Mom for evaluation of symptom(s)/complaint(s) as below. Presenting with concern of persistent diarrhea since 07/24/2023. Traveled for work recently to [place]. Had salmon Saturday evening upon arrival to [...] Hearing normal. Nose: Nose normal. Mouth/Throat: Lips: [place]. Mouth: Mucous membranes are moist. Pharynx: Oropharynx [...] hopeful improvement/resolution of symptoms (more content not included)...[facility]04-13-2024 History of Present illness Narrative* Diana Trejo APRN.CHALK TESTER - 07/27/2023 11:51 AM EDT Images from the original note were not included. [facility] Visit Patient Name: Hannah Hendricks Primary Care Physician: Thomas Salinas MD Service Date: 07/27/2023 SUBJECTIVE: Hannah is an pleasant otherwise well 33 year old female who is here today accompanied by her Mom for evaluation of symptom(s)/complaint(s) as below. Presenting with concern of persistent diarrhea since 07/24/2023. Traveled for work recently to [place]. Had salmon Saturday evening upon arrival to [...] Hearing normal. Nose: Nose normal. Mouth/Throat: Lips: [place]. Mouth: Mucous membranes are moist. Pharynx: Oropharynx [...] 07/27/2023 Time: 11:51 AM documented in this encounterVeterans Health Administration04-13-2024 Instructions* Patient Instructions* Diana Trejo APRN.CNP - [...] new or worsening symptoms. documented in this encounterVeterans Health Administration10-25-2023 NoteHNO ID: [id number] Author: Konstantin Kirkland MD Service: ? Author [...] 2022 after 19 visits. PAIN EVALUATION 02/03/2023 2228 02/06/2023 0891 Pain Level: 3 2 Pain Location: Back-Lower [...] Past Histories independently gathered by the clinical technical support intern and the remaining scribed note accurately describes my personal service to the patient. The documentation for this note was completed by Grace Mojica acting as scribe for Konstantin Kirkland MD. February 06, 2023 8:50 AM. I agree with the operative note independently gathered by the clinical technical support intern and the remaining scribed note accura (more content not included)...[facility] [id number] History of Present illness Narrative* Konstantin Kirkland [...] Past Histories independently gathered by the clinical technical support intern and the remaining scribed note accurately describes my personal service to the patient. The documentation for this note was completed by Grace Mojica acting as scribe for Konstantin Kirkland MD. February 06, 2023 8:50 AM. I agree with the operative note independently gathered by the clinical technical support intern and the remaining scribed note accurately describes my personal service to the patient. SIGNATURE: Konstantin Kirkland MD PATIENT NAME: Hannah Hendricks DATE: February 06, 2023 TIME: 8:49 AM PAGER: documented in this encounterVeterans Health Administration09-18-2023 NoteHNO ID: [id number] Author: Nehemias Suarez PT, DPT Service: ? [...] reviewed in detail this date to promote wheel assembler therapeutic gains. Patient was seen for 19 [...] > 2---Partially Achieved (R - not achieved) Dalton in home exercise program.---Achieved Patient will decrease [...] states that sxs resolved with rest and progressive care unit registered nurse. Pt states that sxs are located [...] Time : 183 Nehemias Suarez PT, [facility]09-18-2023 History of Present illness Narrative* Nehemias Suarez PT, [facility] - 12/31/2022 6:01 PM EDT Episode Visit [...] reviewed in detail this date to promote shelter therapeutic gains. Patient was seen for 19 [...] > 2---Partially Achieved (R - not achieved) Dalton in home exercise program.---Achieved Patient will decrease [...] states that sxs resolved with rest and progressive care unit registered nurse. Pt states that sxs are located [...] Nehemias Suarez PT, DPT documented in this encounterVeterans Health Administration08-16-2023 NoteHNO ID: [id number] Author: Nehemias Suarez PT, SHILPA Service: ? [...] > 2---Partially Achieved (R - not achieved) Dalton in home exercise program.---Achieved Patient will decrease [...] Patient to be seen for Therapeutic exercise (39295), Neuromuscular re-education (39884), Manual therapy (82285), Therapeutic activities (10519), Self-fci management (54918), Patient/Family/Caregiver Education SUBJECTIVE: Pt states that she [...] and decrease pain. Utilized (more content not included)...[facility] [id number] History of Present illness Narrative* Nehemias Suarez, [...] > 2---Partially Achieved (R - not achieved) Dalton in home exercise program.---Achieved Patient will decrease [...] Patient to be seen for Therapeutic exercise (85252), Neuromuscular re-education (47807), Manual therapy (05591), Therapeutic activities (30277), Self-fci management (20373), Patient/Family/Caregiver Education SUBJECTIVE: Pt states that she [...] Nehemias Suarez PT, DPT documented in this encounterVeterans Health Administration07-12-2023 NoteHNO ID: [id number] Author: Nehemias Suarez PT, DPT Service: ? [...] > 2---Partially Achieved (R - not achieved) Dalton in home exercise program.---Achieved Patient will decrease [...] Patient to be seen for Therapeutic exercise (46672), Neuromuscular re-education (00998), Manual therapy (00867), Therapeutic activities (36875), Self-fci management (56092), Patient/Family/Caregiver Education SUBJECTIVE: Patient Reason for Visit: [...] review 11: *prone pr (more content not included)...[facility] [id number] NoteHNO ID: [id number] Author: Nehemias Suarez, PT, DPT Service: ? [...] ASLR to a score > 2---Not Achieved Dalton in home exercise program.---Achieved Patient will decrease [...] Patient to be seen for Therapeutic exercise (60476), Neuromuscular re-education (27801), Manual therapy (02226), Therapeutic activities (67760), Self-fci management (33613), Patient/Family/Caregiver Education SUBJECTIVE: Patient Reason for Visit: [...] 8: *hamstring stretch, review (more content not included)...[facility] 09-12-2022 History of Present illness Narrative* Nehemias Suarez, PT, DPT - 09/12/2022 5:20 PM EDT Episode Visit Count: 16 Therapist That Will Accept/Oversee The Plan Of Care: Nehemias Suarez Start of Care Date: 04/20/22 Onset Date: 03/20/22 Patient Identified by Name and Date of : Yes REHABILITATION AND SPORTS THERAPY PHYSICAL THERAPY PROGRESS REPORT PLAN OF CARE UPDATE: Assessment: Hannah Hnedricks demonstrates good progress over course of POC. [...] ASLR to a score > 2---Not Achieved Dalton in home exercise program.---Achieved Patient will decrease [...] Patient to be seen for Therapeutic exercise (98211), Neuromuscular re-education (86719), Manual therapy (78982), Therapeutic activities (73765), Self-fci management (65998), Patient/Family/Caregiver Education SUBJECTIVE: Patient Reason for Visit: [...] Nehemias Suarez PT, DPT documented in this encounterVeterans Health Administration05-17-2023 NoteHNO ID: [id number] Author: Juliano Urias PTA Service: ? Author Type: Curriculum Development Specialist Type: Progress Notes Filed: 08/29/2022 6:46 PM [...] Total Treatment Time Minutes (timed/untimed): 38 Juliano [facility]05-16-2023 Miscellaneous Notes* Telephone Encounter - Italia Ackerman RN - 08/28/2022 9:44 AM EDT Will forward for review. documented in this encounterVeterans Health Administration05-03-2023 NoteHNO ID: [id number] Author: Nehemias Suarez PT, DPT Service: ? [...] ASLR to a score > 2---Partially Achieved Dalton in home exercise program.---Achieved Patient will decrease [...] Patient to be seen for Therapeutic exercise (20738), Neuromuscular re-education (85667), Manual therapy (38923), Therapeutic activities (69176), Self-fci management (20462), Patient/Family/Caregiver Education SUBJECTIVE: Patient Reason for Visit: [...] review 5: *prone pre (more content not included)...[facility] [id number] History of Present illness Narrative* Nehemias Suarez, [...] ASLR to a score > 2---Partially Achieved Dalton in home exercise program.---Achieved Patient will decrease [...] Patient to be seen for Therapeutic exercise (31074), Neuromuscular re-education (82584), Manual therapy (46185), Therapeutic activities (06865), Self-fci management (73378), Patient/Family/Caregiver Education SUBJECTIVE: Patient Reason for Visit: [...] Nehemias Suarez PT, DPT documented in this encounterVeterans Health Administration04-17-2023 History of Present illness Narrative* Konstantin Kirkland [...] visit. Either the patient or their legal medical field representative has been informed of the risks and benefits of -- and alternatives to -- treatment through a remote evaluation andconsents to proceed with the evaluation remotely. SIGNATURE: Konstantin Kirkland MD PATIENT NAME: Hannah Hendricks DATE: July 30, 2022 TIME: 9:00 AM PAGER: documented in this encounterVeterans Health Administration04-03-2023 NoteHNO ID: [id number] Author: Nehemias Suarez, PT, DPT Service: ? [...] ASLR to a score > 2---Not Achieved Dalton in home exercise program.---Achieved Patient will decrease [...] Patient to be seen for Therapeutic exercise (36409), Neuromuscular re-education (86398), Manual therapy (02294), Therapeutic activities (39281), Self-fci management (08848), Patient/Family/Caregiver Education SUBJECTIVE: Patient Reason for Visit: [...] Total Treatment Time [place] (more content not included)...[facility] 07-16-2022 History of Present illness Narrative* Nehemias [...] ASLR to a score > 2---Not Achieved Dalton in home exercise program.---Achieved Patient will decrease [...] Patient to be seen for Therapeutic exercise (96600), Neuromuscular re-education (62805), Manual therapy (04432), Therapeutic activities (58413), Self-fci management (91514), Patient/Family/Caregiver Education SUBJECTIVE: Patient Reason for Visit: [...] 40 Total Treatment Time Minutes (timed/untimed): 40 eNhemias Suarez PT, DPT documented in this encounterVeterans Health Administration03-27-2023 NoteHNO ID: [id number] Author: Nehemias Suarez PT, DPT Service: ? [...] inch step TREATMENT: Therapeutic Exercise: 1: arc assistant athletic trainer, L5, x 5 minutes, to increase [...] Minutes (timed/untimed): 41 Nehemias Suarez PT, [facility]03-27-2023 History of Present illness Narrative* Nehemias [...] inch step TREATMENT: Therapeutic Exercise: 1: arc assistant athletic trainer, L5, x 5 minutes, to increase [...] Nehemias Suarez PT, DPT documented in this encounterVeterans Health Administration03-20-2023 NoteHNO ID: [id number] Author: Juliano Urias PTA Service: ? Author Type: Curriculum Development Specialist Type: Progress Notes Filed: 07/02/2022 4:28 PM [...] Total Treatment Time Minutes (timed/untimed): 40 Juliano [facility]03-13-2023 NoteHNO ID: [id number] Author: Nehemias Suarez PT, DPT Service: ? [...] Minutes (timed/untimed): 40 Nehemias Suarez PT, [facility]03-13-2023 History of Present illness Narrative* Nehemias [...] Nehemias Suarez PT DPJaime documented in this encounterVeterans Health Administration03-06-2023 NoteHNO ID: [id number] Author: Nehemias Suarez PT, DPT Service: ? [...] ASLR to a score > 2---Not Achieved [place] in home exercise program.---Achieved Patient will decrease [...] Patient to be seen for Therapeutic exercise (14967), Neuromuscular re-education (27690), Manual therapy (28953), Therapeutic activities (22787), Self-fci management (89216), Patient/Family/Caregiver Education PLAN FOR NEXT VISIT: prone [...] with disability. 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 Functional Limitation Comments: sitting, bending [...] as above (*). Mk (more content not included)...[facility] CenterOloudxlc00-24-2289 NoteHNO ID: [id number] Author: Julinao Urias PTA Service: ? Author Type: Curriculum Development Specialist Type: Progress Notes Filed: 06/11/2022 4:28 PM [...] Total Treatment Time Minutes (timed/untimed): 40 [facility] History of Present illness Narrative* Juliano Urias [facility] - 06/11/2022 12:19 PM EST Episode [...] Total Treatment Time Minutes (timed/untimed): 40 Juliano Urias PTA documented in this encounterVeterans Health Administration02-20-2023 NoteHNO ID: [id number] Author: Juliano Urias PTA Service: ? Author Type: Curriculum Development Specialist Type: Progress Notes Filed: 06/04/2022 4:43 PM [...] is concerned regarding numbness in right thigh. SCHOOL PSYCHOLOGY SPECIALIST educated patient that numbness is common after [...] 14 Total Treatment Time Minutes (timed/untimed): 50 [facility] NoteHNO ID: [id number] Author: Nehemias Suarez PT, DPT Service: ? [...] Minutes (timed/untimed): 46 Nehemias Suarez PT, [facility]02-15-2023 History of Present illness Narrative* Nehemias [...] Nehemias Suarez PT, DPT documented in this encounterVeterans Health Administration02-13-2023 NoteHNO ID: [id number] Author: Sheela Glover RN Service: ? Author Type: Registered Nurse Type: Progress Notes Filed: 05/28/2022 6:21 PM Note Text: I was able to connect with pt via phone call and explained that the fax is not going through. She will look for another fax number, but also can see the copy of the letter in her MyChart.[facility] MassachusettsDlxsywfs10-94-9502 NoteHNO ID: [id number] Author: Sheela Shevchuk, RN Service: ? Author Type: Registered Nurse Type: Progress Notes Filed: 05/28/2022 6:21 PM Note Text: RTW letter created and Uploaded to [employer]. The number the pt provided ([phone]) does not work. Also after Googling her employer and finding another local fax number ([phone]), that also did not work. I called pt 3 times and left a message with no reply.[facility] MassachusettsToetiyjz53-01-5508 NoteHNO ID: [id number] Author: Konstantin Kirkland MD Service: ? Author Type: Physician Type: Progress Notes Filed: 05/28/2022 6:21 PM Note Text: [phone] 05/30 No restrictionsEncompass Rehabilitation Hospital Of Western MassachusettsCblnfweb97-26-2425 NoteHNO ID: [id number] Author: Konstantin Kirkland MD Service: ? Author Type: Physician Type: Progress Notes Filed: 05/28/2022 6:32 PM Note Text: SPINE SURGERY FOLLOW UP This is a virtual visit using [employer] video visit. It required patient-provider interaction for [...] MD on May 28, 2022 at 2:05 PM.[facility] MassachusettsQppwchvr10-67-3934 NoteHNO ID: [id number] Author: Nehemias Suarez, PT, DPT Service: ? [...] ASLR to a score > 2---Not Achieved [place] in home exercise program.---Achieved Patient will decrease [...] Patient to be seen for Therapeutic exercise (65546), Neuromuscular re-education (64657), Manual therapy (16405), Therapeutic activities (75185), Self-fci management (08656), Patient/Family/Caregiver Education PLAN FOR NEXT VISIT: update to [facility] SUBJECTIVE: Patient Reason for Visit: Pt [...] SLR Flexibility: passive ~50 (more content not included)...[facility] [id number] History of Present illness Narrative* Nehemias Suarez [...] ASLR to a score > 2---Not Achieved [place] in home exercise program.---Achieved Patient will decrease [...] Patient to be seen for Therapeutic exercise (18914), Neuromuscular re-education (84747), Manual therapy (89311), Therapeutic activities (98325), Self-fci management (89645), Patient/Family/Caregiver Education PLAN FOR NEXT VISIT: update to [facility] SUBJECTIVE: Patient Reason for Visit: Pt [...] to challenge endurance/core strength 3: *posterior chain motor vehicle inspector, supine, review 4: *hip ABD iso, review [...] Nehemias Suarez PT, SAMT documented in this encounterVeterans Health Administration01-23-2023 Miscellaneous Notes* Telephone Encounter - Italia Ackerman RN - 05/07/2022 3:07 PM EST Will forward for review. documented in this encounterVeterans Health Administration01-23-2023 History of Present illness Narrative* Juliano Urias, SCHOOL PSYCHOLOGY SPECIALIST - 05/07/2022 10:49 AM EST Episode Visit [...] 48 Juliano Urias PTA documented in this encounterVeterans Health Administration01-16-2023 History of Present illness Narrative* Juliano Urias [...] 45 Juliano Urias PTA documented in this encounterVeterans Health Administration01-11-2023 NoteHNO ID: [id number] Author: Konstantin Kirkland MD Service: ? Author Type: Physician Type: Progress Notes Filed: 04/25/2022 3:29 PM Note Text: SPINE SURGERY FOLLOW UP This is a virtual visit using Alternative video platform. It required patient-provider interaction for the medical decision making as documented below. SERVICE DATE: 04/25/2022 SURGERY DATE: 03/20/22 Hnanah Hendricks is seen for 1 month post [...] DATE: April 24, 2022 TIME: 3:15 PM PAGER:[facility] [id number] History of Present illness Narrative* Konstantin Kirkland [...] TIME: 3:15 PM PAGER: documented in this encounterVeterans Health Administration01-06-2023 History of Present illness Narrative* Nehemias Suarez [...] FMS ASLR to a score > 2 Dalton in home exercise program. Patient will decrease pain rating by 2 points to meet minimal clinical important difference for numeric pain rating scale. Patient Goals: decrease pain, improve posteiror chain extensibiltiy Planned Interventions, Frequency, and Duration: Current Frequency: 2x/week Duration: 4 weeks Total Number of Visits Planned: 8 Planned Treatment Interventions: Therapeutic exercise (15729);Neuromuscular re- education (63988);Manual therapy (91784);Therapeutic activities (95876);Self- fci management (52173);Patient/Family/Caregiver Education Patient demonstrates good understanding of plan [...] bending overand pulling weeds. Pt initially utilized progressive care unit registered nurse which did not resolve sxs. Pt [...] Nehemias Suarez PT, DPT documented in this encounterVeterans Health Administration12-23-2022 NoteHNO ID: [id number] Author: Konstantin Kirkland MD Service: ? Author [...] DATE: April 06, 2022 TIME: 6:35 AM PAGER:[facility] [id number] History of Present illness Narrative* Konstantin Kirkland [...] TIME: 6:35 AM PAGER: documented in this encounterVeterans Health Administration12-15-2022 Miscellaneous Notes* Telephone Encounter - Kelsy Waterman [...] last week. Please call to advise at [phone]. documented in this encounterVeterans Health Administration12-06-2022 NoteHNO ID: [id number] Author: Alexandra Lombardo APRN.CASH REGISTER OPERATOR Service: Anesthesiology Author Type: Nurse Social And Human Services Assistant Type: Anesthesia Procedure Notes Filed: 03/20/2022 12:35 PM Note Text: ANESTHESIOLOGY PROCEDURE NOTE Airway General Information Procedure Start Time/Medication Administration: 03/20/2022 12:17 PM Patient location during procedure: OR Timeout Performed Pre-procedure: timeout performed Patient identity confirmed: arm band, care cafe team member and patient Staffing Anesthesiologist: Kelechi Chavez MD CASH REGISTER OPERATOR: Alexandra Lombardo APRN.CASH REGISTER OPERATOR Performed by: GINA Indications and Patient [...] attempts at approach: 1 SIGNATURE: Alexandra Lombardo APRN.CASH REGISTER OPERATOR PATIENT NAME: Hannah Hendricks DATE: March 20, 2022 TIME: 12:35 PM CSN: [id number] Instructions* Patient Instructions* Agnes Matthews PA-C - 03/19/2022 1:02 PM EST PATIENT PREOPERATIVE INSTRUCTIONS Konstantin Kirkland MD has scheduled you for your procedure at this surgery center: [facility]: [phone] --[address] [place] [address]. On your scheduled day of surgery, please [...] Procedures: - YOU MUST HAVE A RESPONSIBLE FRONT END SOFTWARE DEVELOPER TAKE YOU HOME. A FIBER OPTIC ASSEMBLER OR DOOR TO DOOR SALES REPRESENTATIVE CANNOT BE MADE A RESPONSIBLE FRONT END SOFTWARE DEVELOPER. - We recommend that a responsible person [...] Advance Directive, please fax a copy to [phone] or email to for it to be [...] day. Agnes Matthews PA-C documented in this encounterVeterans Health Administration12-05-2022 History and physical note * Agnes Matthews PA-C - 03/19/2022 1:00 PM EST HISTORY AND PHYSICAL EXAMINATION SERVICE DATE: 03/19/2022 SERVICE TIME: 1:39 PM PRIMARY CARE PHYSICIAN: Thomas Salians MD REASON FOR VISIT: Hannah Hendricks is [...] fevers. Neurological: No history of TIA's, stroke, BALLPOINT PEN CARTRIDGE TESTER tumor, impaired sensorium, hemiplegia, paraplegia orquadraplegia. No neurological symptoms or problems. Respiratory: No history of current cough or dyspnea, or pneumonia in the past 6 weeks. No history of respiratory/pulmonary symptoms or problems. Cardiovascular: No history of HTN requiring medication, no history of angina, CHF, CA, cardiac surgery or stents. Denies rest pain, [...] 422 QTC Calculation (Bazett) 431 Calculated P [place] -8 Calculated R [place] 79 Calculated T [place] 49 Impression NORMAL SINUS RHYTHM RSR' OR QR PATTERN IN V1 SUGGESTS RIGHT VENTRICULAR CONDUCTION DELAY BORDERLINE ECG no STEMI Confirmed by MD JOSIE, KELECHI ([id number]), mapping editor ROSEMARY MALDONADO ([id number]) on 11/16/2021 6:44:48 AM No results found for this or any previous visit (from the past 45453 hour(s)). Assessment Electronic cigarette use Assessment: occasional [...] large neck Non-male patient STOP-Bang Score: 0 [id number] Score: Age: <65 Sex: female [id number] Score: 1 ARISCAT Score: Age: <=50 ARISCAT [...] 12:35 PM PAGER/CONTACT #: documented in this encounterVeter[facility] Administration12-02-2022 Miscellaneous Notes* Telephone Encounter - Italia Ackerman RN - 03/16/2022 3:37 PM EST Answered question when patient was being scheduled for PAT. * Telephone Encounter - Karen Long - 03/16/2022 3:33 PM EST Patient at [phone] is requesting a call back. She has another question about medication. * Telephone Encounter - Italia Ackerman RN - 03/16/2022 2:[address] Kirkland spoke with patient. Will be having surgery on 03/20/22. * Telephone Encounter - Italia Ackerman RN - 03/16/2022 2:08 PM EST Will forward for review. * Telephone Encounter - Karen Long - 03/16/2022 1:32 PM EST Patient at [phone] is requesting a call back Re: MRI results. She is quite upset. documented in this encounterVeterans Health Administration12-02-2022 History of Present illness Narrative* RT Nova(R) [...] 16, 2022 8:35 AM documented in this encounterVeterans Health Administration12-01-2022 Miscellaneous Notes* Telephone Encounter - Britt Moreno [...] Pharmacy Name: [facility] Phone #: [phone] Britt Louie Pss documented in this encounterVeterans Health Administration11-28-2022 Miscellaneous Notes* Telephone Encounter - Kelsy Waterman [...] 9:10 AM EST Patient called yesterday to assistant director of admissions provider. Will forward for review. * Telephone Encounter - Darlene Ferrera - 03/12/2022 8:33 AM EST Patients first day working and states she is in extreme pain, feels she cannot take it, the top of her right leg and her lower back is stiff, states pain is 7 out of 10. Please call patient at [phone] documented in this encounterVeterans Health Administration11-27-2022 Miscellaneous Notes* Plan of Care - Adelso [...] Adelso Kelly MD PGY-2, Neurological Surgery Pager: [phone] Neurosurgery assistant director of admissions: [id number] 7:15 PM 03/11/22 CURRENT OVERNIGHT RESIDENT Please page [phone] between 6:30 AM and 6:00PM documented in this encounterVeterans Health Administration11-27-2022 Miscellaneous Notes* Telephone Encounter - Ximena Lewis RN - 03/11/2022 6:29 PM EST Patient calling regarding back surgery. Conferenced to Main [place] flaking roll operator, Emili, to speak with provider assistant director of admissions for Dr. Kirkland at phone number ( - - ). documented in this encounterVeterans Health Administration11-21-2022 History of Present illness Narrative* Konstantin Kirkland [...] TIME: 8:55 AM PAGER: documented in this encounterVeterans Health Administration11-07-2022 Miscellaneous Notes* Telephone Encounter - Kelsy Waterman RN - 02/19/2022 10:40 AM EST Called [facility]. Per pharmacist pt was not able to pick up and delivery driver prescription; was too soon for pick up and delivery driver but able to pick up and delivery driver today. Call placed to patient to update. Verbalizes understanding. * Telephone Encounter - Britt Louie Pss - 02/19/2022 10:20 AM EST The patient called stating when she went to [facility] to pick up and delivery driver the Robaxin, the pharmacy told her that it was cancelled by our office the same day they received it. Please call patient to advise at [phone] documented in this encounterVeterans Health Administration10-25-2022 History of Present illness Narrative* Konstantin Kirkland [...] TIME: 7:02 AM PAGER: documented in this encounterVeterans Health Administration10-24-2022 Miscellaneous Notes* Telephone Encounter - Italia Ackerman RN - 02/05/2022 1:37 PM EDT Work extension paperwork received, completed and faxed to number requested. Faxed verification received. documented in this encounterVeterans Health Administration10-19-2022 Miscellaneous Notes* Telephone Encounter - Radha Dickens [...] on 12/19/21. Please call to advise at [phone] documented in this encounterVeterans Health Administration10-11-2022 Miscellaneous Notes* Telephone Encounter - Italia Ackerman RN - 01/23/2022 9:34 AM EDT Letter faxed to number requested. Faxed verification received. documented in this [facility]09-07-2022 Miscellaneous Notes* Telephone Encounter - Radha [...] Patient would appreciate a call back at [phone]. documented in this encounterVeterans Health Administration09-06-2022 NoteHNO ID: [id number] Author: BRENNON Ma Service: Anesthesiology Author Type: Biller Type: Anesthesia Procedure Notes Filed: 12/19/2021 8:02 [...] December 19, 2021 TIME: 8:01 AM CSN: [id number] Miscellaneous Notes* Telephone Encounter - Maryann Matthews - 12/12/2021 3:26 PM EDT Short term disability paperwork has been sent to scanning. Date of service 04/15/21 documented in this encounterVeterans Health Administration08-29-2022 Miscellaneous Notes* Telephone Encounter - Ashwini Cadet APRN.[facility] - 12/11/2021 9:38 AM EDT The following [...] reflecting the increase dosage documented in this encounterVeterans Health Administration08-25-2022 Miscellaneous Notes* Telephone Encounter - Italia Ackerman RN - 12/07/2021 3:50 PM EDT Note faxed as requested. Faxed verification received. * Telephone Encounter - Susie Myles - 12/07/2021 2:58 PM EDT Ankush from [facility] calling to get clinicals from neurosurgeon, saying he needs them to complete the prior auth for surgery. States that if he does not have them within 30 - 40 minutes, that the case will be closed and a new prior authorization would need to be completed. Ph. [phone] fax [phone] documented in this encounterVeterans Health Administration08-25-2022 History of Present illness Narrative* Konstantin Kirkland MD - 12/07/2021 3:03 PM EDT Images from the original note were not included. SPINE SURGERY NEW PATIENT PCP: Yana Ballard APRN.CHALK TESTER REFERRING PROVIDER: Dr. Feng Wright SUBJECTIVE HISTORY [...] TIME: 3:03 PM PAGER: documented in this encounterVeterans Health Administration08-24-2022 History and physical note * Barbara James APRN.CHALK TESTER - 12/06/2021 1:50 PM EDT HISTORY AND [...] fevers. Neuro: No history of TIA's, stroke, BALLPOINT PEN CARTRIDGE TESTER tumor, impaired sensorium, hemiplegia, paraplegia or quadraplegia. No neurological symptoms or problems. Respiratory: No history of current cough or dyspnea, or pneumonia in the past 6 weeks. No history of respiratory/pulmonary symptoms or problems. Cardiovascular: No history of HTN requiring medication, no history of angina, CHF, CA, cardiac surgery or stents. Denies rest pain, gangrene or revascularization/amputation for PVD. No history of cardiovascular symptoms or problems. GI: No history of GI symptoms or problems. No history of esophageal varices, recent ascites, or ETOH greater than 2 drinks per day. : No history of dysuria, frequency or incontinence,, stones or chronic kidney disease LIAISON PLANNER: Negative for abnormal vaginal bleeding, abnormal vaginal [...] 2021 TIME: 2:00 PM documented in this encounterVeterans Health Administration08-24-2022 Instructions* Patient Instructions* Barbara James APRN.CNP - 12/06/2021 7:49 AM EDT PATIENT PREOPERATIVE INSTRUCTIONS Konstantin Kirkland MD has scheduled you for your procedure at this surgery center: [facility]: [phone] --[address] [place] [address]. On your scheduled day of surgery, please [...] Procedures: - YOU MUST HAVE A RESPONSIBLE FRONT END SOFTWARE DEVELOPER TAKE YOU HOME. A FIBER OPTIC ASSEMBLER OR DOOR TO DOOR SALES REPRESENTATIVE CANNOT BE MADE A RESPONSIBLE FRONT END SOFTWARE DEVELOPER. - We recommend that a responsible person [...] Advance Directive, please fax a copy to [phone] or email to for it to be [...] your chart that day. documented in this encounterVeterans Health Administration08-22-2022 Nurse Note* Italia Ackerman RN - 12/04/2021 3:50 PM EDT Neuro SPINE CARE COORDINATION PRE-OP VISIT Met with patient and family member for pre op education. Given both written and verbal instructionsre : Skin prep, wound care, pain management and post op restrictions. Provided to patient: [facility] Surgery Guide, skin prep supplies, Spine Surgery Pre/post op education packet. Yes. Reviewed with patient to report to the registration desk for surgery? Yes. Reviewed with the patient that a surgery sales account representative will call the working day prior [...] microdiscectomy. PACC will be scheduled by office. [email or web address] : N/A Medications reviewed : Yes. Meds to be stopped prior to surgery : NSAIDS. Additional pre op clearances needed : none. Any implanted devices : No. Transplant History No. Patient will get optimization lab work : to be completed at [facility]. Questions answered. Patient verbalizes understanding via teach back. Additional comments : Informed to call with any questions or concerns. Italia Ackerman RN documented in this encounterVeterans Health Administration08-22-2022 History of Present illness Narrative* Ashwini Cadet, OPAL.CHALK TESTER - 12/04/2021 11:32 AM EDT VIRTUAL VISIT PROGRESS NOTE This is a virtual visit using Gazoob video visit. It required patient-provider interaction for [...] and she has been eating bananas and yvaftlncqd-kav-oefaqjv. She is not sure if she should be on prescription strength and has reached out to her PCP She reports walking decreases her pain but she is still experiencing the pins and needles She reports throbbing in the low back and right buttocks She has been using a comfy cushion she purchased from [employer] She has an appt today with Dr. Kirkland. PLAN: Appt with Dr. Kirkland today Trying to stretch Continue gabapentin and robaxin as needed 4. Follow up to be determined There are no Patient Instructions on file for this visit. I spent a total of 20 minutes on the date of the service which included preparing to see the patient, ucxx-mr-qdmc patient care, and completing clinical documentation Ashwini Cadet APRN.CNP documented in this encounterVeterans Health Administration08-12-2022 Miscellaneous Notes* Telephone Encounter - Ashwini Cadet APRN.CNP - 11/24/2021 3:25 PM EDT Paperwork completed * Telephone Encounter - Kristan Castellano Ma - 11/23/2021 10:30 AM EDT STD paperwork received via fax. Please allow 7-10 business days for completion. Forwarded to provider for review. documented in this encounterVeterans Health Administration08-10-2022 History of Present illness Narrative* Ashwini Cadet, OPAL.CHALK TESTER - 11/22/2021 10:05 AM EDT VIRTUAL VISIT PROGRESS NOTE This is a virtual visit using Gazoob video visit. It required patient-provider interaction for [...] right posterior lower extremity She is experiencing uema-dys-mjeypjj and tingling in the right leg and [...] which included preparing to see the patient, kmwq-gy-hgtr patient care, and completing clinical documentation Ashwini Cadet APRN.CNP documented in this encounterVeterans Health Administration08-05-2022 History of Present illness Narrative* Ashwini Cadet APRN.CNP - 11/17/2021 9:42 AM EDT VIRTUAL VISIT PROGRESS NOTE This is a virtual visit using Gazoob video visit. It required patient-provider interaction for [...] called 911 and was transported to the [facility]. While in the ER she was [...] to spine surgery consult Discussed sending a Gazoob message in a week to report how [...] which included preparing to see the patient, ejwi-tw-vzdu patient care, completing clinical documentation and ordering medications, tests, or procedures Ashwini Cadet APRN.CNP documented in this encounterVeterans Health Administration08-04-2022 Miscellaneous Notes* Telephone Encounter - Elli South [...] about that change. Patient also advised the [place] [facility] provider placed a referral for the patient to see a Spinal Surgeon and that she should be receiving a call today to schedule that consult. Please advise, Elli South documented in this encounterVeterans Health Administration08-03-2022 History of Present illness Narrative* Dulce Wong APRN.CNP - 11/15/2021 6:38 PM EDT Images from the original note were not included. [employer] November 15, 2021 Hannah Hendricks 1990 [...] Dulce Wong APRN.CNP Telemedicine documented in this encounterVeterans Health Administration07-25-2022 Miscellaneous Notes* Telephone Encounter - Yana Ballard [...] Refusal: A Refill not appropriate Yana Ballard APRN.CHALK TESTER * Telephone Encounter - Rozina Corona RN [...] Triplett, et al. 2017 Guidelines of the [place] Thy[employer] Association for the Diagnosis and Management of Thyroid Disease during and the . Thyroid, 2017:27:3:315-389. Pharmacy has been captured: Yes. Patient prefers: [facility]. documented in this encounterVeterans Health Administration07-21-2022 Miscellaneous Notes* Telephone Encounter - Alma Bello APRN.CNP - 11/02/2021 1:28 PM EDT Entered in error documented in this encounterVeterans Health Administration06-29-2022 History of Present illness Narrative* Feng Wright MD - 10/11/2021 9:21 AM EDT [facility]: October 11, [...] Panel: No results found for: UQCANN, UQBNZL, BED4SEZ, UQAMPH, UQMAMP, UQBUPRE, UQNORBUP, UQMTHD, UQEDDP, UQTRAM, [...] diagnostic tests reviewed for today's visit: The [facility] EMR was reviewed during thevisit IMAGING STUDIES: [...] but also diagnostic information that procedures provide. alf use of any opioid pain medication is [...] October 11, 2021 cc: Yana Ballard [id number] [facility] [id number] [place] [id number] Results of consultation to be transmitted via electronic medical record for those providers who practice within [facility] or with access to [employer] via MD Connect, or via letter. documented in this encounterVeterans Health Administration06-28-2022 Miscellaneous Notes* Telephone Encounter - [facility] - 10/10/2021 10:50 AM EDT Patient was scheduled for 10/11/21 with pain management. No further action needed. [facility] * Telephone Encounter - Yana Ballard APRN.[facility] - 10/10/2021 6:53 AM EDT Please assist patient with scheduling in pain management. Dr. Santiago is preferred if appt available upcoming. Thank you. documented in this encounterVeterans Health Administration06-25-2022 Miscellaneous Notes* Telephone Encounter - Yana Ballard [...] Triplett, et al. 2017 Guidelines of the [place] Thyroid Association for the Diagnosis and Management of Thyroid Disease during and the . Thyroid, 2017:27:3:315-389. Pharmacy has been captured: Yes. Patient prefers: [facility]. Krystin Spangler Ma documented in this encounterVeterans Health Administration06-25-2022 Miscellaneous Notes* Telephone Encounter - Yana Ballard [...] is she feeling currently? documented in this encounterVeterans Health Administration06-23-2022 History of Present illness Narrative* RT Nova(R) [...] 05, 2021 6:27 PM documented in this encounterVeterans Health Administration06-07-2022 History of Present illness Narrative* Yana Ballard [...] which included preparing to see the patient, szih-dh-mvtf patient care, completing clinical documentation, obtaining and/or reviewing separately obtained history, performing a medically appropriate examination, counseling and educating the pat ient/family/caregiver and ordering medications, tests, or procedures. Yana Ballard APRN.MANDEEP documented in this encounterVeterans Health Administration06-02-2022 Hospital Discharge instructions Patient Education 09/13/2021 23:57:30 Back Exercises, Ltit-sk-Cpki Back Exercises These exercises help to make [...] 05/04/2011 Document Revised: 12/25/2018 Document Reviewed: 12/25/2018 [employer] Patient Education 2020 [employer] Follow Up Care 09/13/2021 20:31:41 With:Santana Vidal Address: [address] [place], [place] [address]ioana [place] [address] Business (1) When:09/16/2021 Comments:Take the prednisone daily until you have completed the course you can use the Robaxin, [place] as prescribed as needed for pain. Use lidocaine patch daily. Please follow-up with your primary care doctor and orthopedic for further evaluation management. With:Severiano Wallace Address: [address] [place], [place] [address] [address]- Business (1) When:Within 3 Day(s) [facility] + Plan note No data available for this section [facility] note* Diagnosis Spinal stenosis of lumbar region without neurogenic claudication Spinal stenosis, lumbar region, without neurogenic claudication documented in this encounter [facility] note* Diagnosis Spinal stenosis of lumbar region without neurogenic claudication Spinal stenosis, lumbar region, without neurogenic claudication documented in this encounter [facility] note* Diagnosis Lumbar disc herniation- Primary Displacement of lumbar intervertebral disc without myelopathy [facility]* Diagnosis Spinal stenosis of lumbar region without neurogenic claudication Spinal stenosis, lumbar region, without neurogenic claudication documented in this encounter [facility] note* Diagnosis Radiculopathy, lumbar region- Primary Thoracic or lumbosacral neuritis or radiculitis, unspecified Lumbar disc herniation Displacement of lumbar intervertebral disc without myelopathy documented [facility] this encounter [facility]* Diagnosis Lumbar disc herniation- Primary Displacement of lumbar intervertebral disc without myelopathy Radiculopathy, lumbar region Thoracic or lumbosacral neuritis or radiculitis, unspecified documented [facility] encounter [facility]* Diagnosis Spinal stenosis of lumbar region without neurogenic claudication Spinal stenosis, lumbar region, without neurogenic claudication documented [facility] this encounter [facility]* Diagnosis Treatment not available- Primary Procedure not carried out for other reasons documented in this encounter [facility] note* Diagnosis Hypokalemia- Primary Hypopotassemia Hypomagnesemia Disorders of magnesium metabolism documented [facility] this encounter [facility]* Diagnosis Lumbar disc herniation- Primary Displacement of lumbar intervertebral disc without myelopathy Radiculopathy, lumbar region Thoracic or lumbosacral neuritis or radiculitis, unspecified documented in this encounter [facility]* Diagnosis Lumbar disc herniation- Primary Displacement of lumbar intervertebral disc without myelopathy Radiculopathy, lumbar region Thoracic or lumbosacral neuritis or radiculitis, unspecified Hypokalemia Hypopotassemia Hypomagnesemia Disorders of magnesium metabolism documented [facility] encounter [facility]* Diagnosis Lumbar disc herniation- Primary Displacement of lumbar intervertebral disc without myelopathy Radiculopathy, lumbar region Thoracic or lumbosacral neuritis or radiculitis, unspecified documented in this encounter [facility]* Diagnosis Hypokalemia- Primary Hypopotassemia Hypomagnesemia Disorders of magnesium metabolism documented [facility] encounter [facility]* Diagnosis Pre-op testing- Primary Preoperative examination, unspecified Lumbar disc herniation Displacement of lumbar intervertebral disc without myelopathy Radiculopathy, lumbar region Thoracic or lumbosacral neuritis or radiculitis, unspecified Lumbar disc herniation Displacement of lumbar intervertebral disc without myelopathy Radiculopathy, lumbar region Thoracic or lumbosacral neuritis or radiculitis, unspecified documented in this encounter [facility]* Diagnosis Pre-op evaluation- Primary Preoperative examination, unspecified Lumbar disc herniation Displacement of lumbar intervertebral disc without myelopathy Known health problems: none Lumbar disc herniation Displacement of lumbar intervertebral disc without myelopathy Radiculopathy, lumbar region Thoracic or lumbosacral neuritis or radiculitis, unspecified documented in this encounter [facility]* Diagnosis Radiculopathy, lumbar region- Primary Thoracic or lumbosacral neuritis or radiculitis, unspecified Lumbar disc herniation Displacement of lumbar intervertebral disc without myelopathy Radiculopathy, lumbar region Thoracic or lumbosacral neuritis or radiculitis, unspecified documented in this encounter [facility]* Diagnosis Lumbar herniated disc- Primary Displacement of lumbar intervertebral disc without myelopathy documented [facility] this encounter [facility]* Diagnosis Lumbar radiculopathy- Primary Thoracic or lumbosacral neuritis or radiculitis, unspecified documented in this encounter [facility]* Diagnosis Spinal stenosis of lumbar region with neurogenic claudication- Primary Spinal stenosis, lumbar region, with neurogenic claudication documented [facility] this encounter [facility]* Diagnosis Pre-op testing- Primary Preoperative examination, unspecified Spinal stenosis of lumbar region with neurogenic claudication Spinal stenosis, lumbar region, with neurogenic claudication Spinal stenosis of lumbar region with neurogenic claudication Spinal stenosis, lumbar region, with neurogenic claudication documented [facility] this encounter [facility]* Diagnosis Spinal stenosis of lumbar region with neurogenic claudication Spinal stenosis, lumbar region, with neurogenic claudication Spinal stenosis of lumbar region with neurogenic claudication Spinal stenosis, lumbar region, with neurogenic claudication documented in this encounter [facility]* Diagnosis Pre-op evaluation- Primary Preoperative examination, unspecified Pre-op testing Preoperative examination, unspecified Electronic cigarette use Spinal stenosis of lumbar region with neurogenic claudication Spinal stenosis, lumbar region, with neurogenic claudication documented in this encounter [facility]* Diagnosis Radiculopathy, lumbar region- Primary Thoracic or lumbosacral neuritis or radiculitis, unspecified documented in this encounter [facility] note* Diagnosis Radiculopathy, lumbar region Thoracic or lumbosacral neuritis or radiculitis, unspecified Chronic bilateral low back pain with right-sided sciatica documented in this encounter [facility] note* Diagnosis Radiculopathy, lumbar region- Primary Thoracic or lumbosacral neuritis or radiculitis, unspecified documented [facility] this encounter [facility]* Diagnosis Chronic bilateral low back pain with right-sided sciatica- Primary documented [facility] this encounter [facility]* Diagnosis Chronic bilateral low back pain with right-sided sciatica- Primary documented [facility] this encounter [facility]* Diagnosis Chronic bilateral low back pain with right-sided sciatica- Primary documented [facility] encounter [facility]* Diagnosis Chronic bilateral low back pain with right-sided sciatica- Primary documented [facility] encounter [facility]* Diagnosis Chronic bilateral low back pain with right-sided sciatica- Primary documented in this encounter [facility] noteNo assessment information availableWMarietta Memorial Hospital Work Phone: Evaluation note* Diagnosis Radiculopathy, lumbar region- Primary Thoracic or lumbosacral neuritis or radiculitis, unspecified documented in this encounter [facility]* Diagnosis Chronic bilateral low back pain with right-sided sciatica- Primary documented in this encounter [facility] note* Diagnosis Chronic bilateral low back pain with right-sided sciatica- Primary [facility] encounter [facility] Diagnosis Radiculopathy, lumbar region- Primary [...] encounter [facility] Author Ximena Mcghee [facility] Note Date/Time September 14, 2024 9:34a m [facility] [address], [address] [place] [address] OFFICE VISIT Date of Service: 09/14/24 MR#: [id number] Acct: [id number] Name: HANNAH HENDRICKS Rep #: [id number] : 1990 Provider: BART Mcghee Age/Sex: 34/F Location: [facility] Status: Signed Intake Vital Signs 07/20/24 13:59 08/17/24 08:32 09/14/24 08:59 Height 5 ft 6 in 5 ft 6 in 5 ft 6 in Weight: 190 lb 2 oz BMI 30.7 BP 106/71 Intake Visit Reasons: 17wk ob Chief Complaint: 17wk OB Integration Director Required: No Is patient in pain?: No [...] 1 current occupational status: employed current occupation: [employer] current occupational exposures/hazards: No pets and animals: [...] 3-4 times per week duration: 15-30 minutes/day agata/sikh: Rastafari seatbelt use: always do you feel safe at home: Yes 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 Date Name GA/Weeks Outcome Route Bth Weight Infant Gen Labor Lgth Anesthesia Del Locatn Provider FOB 08/11/20 Janie 39 live - full term 7lbs 8.5oz Female epidural [facility] Dr. Quang Samaniego 03/15/24 4 spontaneous Delivery [...] Signature: Date (if applicable) CC: ~ [facility] Work Phone: Progress note Author Ximena Mcghee [facility] Note Date/Time November 09, 2024 9:25 am [facility] [address] [place] [address], [address] [place] [address] OFFICE VISIT Date of Service: 11/09/24 MR#: [id number] Acct: [id number] Name: HANNAH HENDRICKS Rep #: [id number] : 1990 Provider: BART Mcghee Age/Sex: 34/F Location: [facility] Status: Signed Intake Vital Signs 08/17/24 08:32 10/12/24 15:54 11/09/24 08:55 11/09/24 08:55 Height 5 ft 6 in 5 ft 6 in 5 ft 6 in 5 ft 6 in Weight: 202 lb 6 oz BMI 32.6 BP 104/71 Intake Visit Reasons: 25 wk ob Chief Complaint: 25wk OB Integration Director Required: No Is patient in pain?: No [...] 1 current occupational status: employed current occupation: [employer] current occupational exposures/hazards: No pets and animals: [...] 3-4 times per week duration: 15-30 minutes/day agata/sikh: Rastafari seatbelt use: always do you feel safe at home: Yes 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 Date Name GA/Weeks Outcome Route Bth Weight Gen Labor Lgth Anes t hesia Del Locatn Provider FOB 08/11/20 Janie 39 live - full term 7lbs 8.5oz Female epidural [facility] Dr. Quang Samaniego 03/15/24 4 spontaneous Delivery [...] this visit. GA appropriate handout given. 11/09/24 [id number] <Electronically signed by Ximena benitez CNM> Date _ Ximena Mcghee CNM Cosigner Signature: Date (if applicable) CC: ~ [facility] Work Phone: Progress note Author Barbie Mitchell [facility] Note Date/Time December 28, 2024 9:59am [facility] [address], [address] [place] [address] OFFICE VISIT Date of Service: 12/28/24 MR#: [id number] Acct: [id number] Name: HANNAH HENDRICKS Rep #: [id number] : 1990 Provider: SHAWN Mitchell Age/Sex: 34/F Location: [facility] Status: Signed Intake Vital Signs 11/09/24 08:55 12/15/24 09:22 12/28/24 09:45 12/28/24 09:50 Height 5 ft 6 in 5 ft 6 in 5 ft 6 in 5 ft 6 in Weight: 210 lb BMI 33.9 BP 118/72 Intake Visit Reasons: 32wk ob Chief Complaint: 32 Week OB Integration Director Required: No Is patient in pain?: No [...] current occupational status: employed current occupation: [employer] current occupational exposures/hazards: No pets and animals: [...] 3-4 times per week duration: 15-30 minutes/day agata/sikh: Rastafari seatbelt use: always do you feel safe at home: Yes 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 Date Name GA/Weeks Outcome Route Bth Weight Infant Gen Labor Lgth Anesthesia Del Locatn Provider FOB 08/11/20 Janie 39 live - full term 7lbs 8.5oz Female epidural [facility] Dr. Quang Samaniego 03/15/24 4 spontaneous Delivery [...] Urine Protein Trace Last Edit by Linda Matthews on 12/28/24 09:50 Coding Level of Care [...] 0959 <Electronically signed by Barbie benitez NP DIRECTOR OF CONSTRUCTION-C> Date _ Barbie Mitchell NP DIRECTOR OF CONSTRUCTION-C Cosigner Signature: Date (if applicable) CC: ~ [facility] Work Phone: Progress note Author Ximena Mcghee [facility] Note Date/Time January 11, 2025 10:42am [facility] [address], [address] [place] [address] OFFICE VISIT Date of Service: 01/11/25 MR#: [id number] Acct: [id number] Name: HANNAH HENDRICKS Rep #: [id number] : 1990 Provider: BART Mcghee Age/Sex: 34/F Location: [facility] Status: Signed Intake Vital Signs 12/01/24 08:19 01/11/25 09:59 01/11/25 09:59 Height 5 ft 6 in 5 ft 6 in 5 ft 6 in Weight: 215 lb 5 oz BMI 34.7 BP 118/75 Intake Visit Reasons: 34 WK OB Integration Director Required: No Is patient in pain?: No [...] current occupational status: employed current occupation: [employer] current occupational exposures/hazards: No pets and animals: [...] 3-4 times per week duration: 15-30 minutes/day agata/sikh: Rastafari seatbelt use: always do you feel safe at home: Yes 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 Date Name GA/Weeks Outcome Route Bth Weight Gen Labor Lgth Anesthesia Del Locatn Provider FOB 08/11/20 Janie 39 live - full term 7lbs 8.5oz Female epidural [facility] Dr. Quang Samaniego 03/15/24 4 spontaneous Delivery [...] Cosigner Signature: Date (if applicable) CC: ~ [facility] Work Phone: Reason for referral (narrative)No reason for referral information availableWMarietta Memorial Hospital Work Phone: Summary Purpose Family History [...] FoundDocuments on File Type Date Recorded Patient Neuroscience Specialist Expl anation Advance Directive(s) 11/02/2021 8:14 AM Advance Directive(s) 10/30/2021 9:10 AM Documents on File Type Date Recorded Patient Neuroscience Specialist Expl anation Advance Directive(s) 11/15/2021 8:36 PM Advance Directive(s) 11/02/2021 8:14 AM Advance Directive(s) 10/30/2021 9:10 AM Advance Directive Response Recorded Date/ Time Living Will No September 23, 2020 12:06pm Power of Frontend Engineer No September 23 12:06pm Advance Directive Response Recorded Date/ Time Living Will No April 01 5:32pm Power of Frontend Engineer No April 01, 2024 5:32pm Advance Directive Response Recorded Date/ Time Living Will No April 01 5:32pm Do you have a Healthcare Power of Frontend Engineer? No April 01, 2024 5:32pm Reason for Referral Specialty Diagnoses / Procedures Referred By Contac t Referred To Contact [facility] Diagnoses Chronic bilateral low back pain with right-sided sciatica Procedures PT REHAB FOLLOW UP ORDER THERAPEUTIC EXERCISES RE, EA [address] [address] [facility] [address] [address] Referral ID Status Reason Start Date Expiration Date Visits Requested Visits Authorized [id number] Pending Review PCP Requested Referral Auto-Generate d Referral 07/16/2022 10/14/2022 1 1 Specialty Diagnoses / Procedures Referred By Contac t Referred To Contact [facility] Diagnoses Radiculopathy, lumbar region Procedures CONSULT TO PHYSICAL THERAPY PHYSICAL THERAPY EVALUATION HIGH COMPLEX [place] [address] [place] [address] [address] Referral ID Status Reason Start Date Expiration Date Visits Requested Visits Authorized [id number] Pending Review Auto-Generat ed Referral 2 04/04/2023 1 1 Specialty Diagnoses / Procedures Referred By Contac t Referred To Contact [facility] Diagnoses Lumbar radiculopathy Procedures CONSULT TO PHYSICAL THERAPY PHYSICAL THERAPY EVALUATION HIGH COMPLEX [address] [place] [address] [place] [address] [facility] [place] [address] [place] [address] Referral ID Status Reason Start Date Expiration Date Visits Requested Visits Authorized [id number] Pending Review Auto-Generat ed Referral 2 03/05/2023 1 1 Specialty Diagnoses / Procedures Referred By Contac t Referred To Contact Diagnoses Pre-op testing Procedures REFER TO PACC - PRE ANESTHESIA CONSULTATION CLINIC OFFICE/OUTPATIENT [facility] 60-74 MINUTES Dharmesh Louise PA-C [address] [place] [address] Referral ID Status Reason Start Date Expiration Date Visits Requested Visits Authorized [id number] Pending Review PCP Requested Referral 12/05/2021 12/05/2022 1 1 Specialty Diagnoses / Procedures Referred By Contac t Referred To Contact Yana Ballard APRN.CHALK TESTER [address] [address] Referral ID Status Reason Start Date Expiration Date V isits Requested Visits Authorized [id number] Pending Review 1 1 Specialty Diagnoses / Procedures Referred By Contac t Referred To Contact Pain Management Diagnoses Lumbar disc herniation Procedures CONSULT TO PAIN MGT OFFICE/OUTPATIENT [facility] 60-74 MINUTES Yana Ballard APRN.CHALK TESTER [address] [address] Referral ID Status Reason Start Date Expiration Date Visits Requested Visits Authorized [id number] Pending Review PCP Requested Referral 10/06/2021 10/06/2022 1 1 Specialty Diagnoses / Procedures Referred By Contac t Referred To Contact [facility] IMAGING Diagnoses Spinal stenosis of lumbar region without neurogenic claudication Procedures MRI LUMBAR SPINE WO IVCON MRI SPINAL CANAL LUMBAR W/O CONTRAST MATERIAL Yana Ballard STROKE COORDINATOR.CHALK TESTER [address] [address] [facility] Referral ID Status Reason Start Date Expiration Date Visits Requested Visits Authorized [id number] Authorized Auto-Generat ed Referral 09/19/2021 10/19/2022 1 [...] section and content) DATE CREATED AUTHOR 09/15/2021 [facility] DATE CREATED AUTHOR AUTHOR'S ORGANIZ ATION 03/21/2022 [facility] DATE CREATED AUTHOR AUTHOR'S ORGANIZ ATION 02/10/2023 [facility] DATE CREATED AUTHOR AUTHOR'S ORGANIZ ATION 05/18/2023 [facility] DATE CREATED AUTHOR AUTHOR'S ORGANIZ ATION 08/04/2023 [facility] DATE CREATED AUTHOR AUTHOR'S ORGANIZ ATION 10/09/2024 [facility] DATE CREATED AUTHOR AUTHOR'S ORGANIZ ATION 01/27/2025 [facility] Source Comments (unrecognize d section and content) In the event this informatio n is protected by the Federal Confidentiality of Alcohol and Drug Abuse Patient Records regulations: The Federal rules restrict any use of the information to criminally investigate or prosecute any alcohol or drug abuse patient.[facility] Health AdministrationIn the event this information is protected by the Federal Confidentiality of Alcohol and Drug Abuse Patient Records regulations: The Federal rules restrict any use of the information to criminally investigate or prosecute any alcohol or drug abuse patient.[facility] AdministrationIn the event this information is protected by the Federal Confidentiality of Alcohol and Drug Abuse Patient Records regulations: The Federal rules restrict any use of the information to criminally investigate or prosecute any alcohol or drug abuse patient.[facility] AdministrationIn the event this information is protected by the Federal Confidentiality of Alcohol and Drug Abuse Patient Records regulations: The Federal rules restrict any use of the information to criminally investigate or prosecute any alcohol or drug abuse patient.[facility] AdministrationIn the event this information is protected by the Federal Confidentiality of Alcohol and Drug Abuse Patient Records regulations: The Federal rules restrict any use of the information to criminally investigate or prosecute any alcohol or drug abuse patient.[facility] AdministrationIn the event this information is protected by the Federal Confidentiality of Alcohol and Drug Abuse Patient Records regulations: The Federal rules restrict any use of the information to criminally investigate or prosecute any alcohol or drug abuse patient.[facility] AdministrationIn the event this information is protected by the Federal Confidentiality of Alcohol and Drug Abuse Patient Records regulations: The Federal rules restrict any use of the information to criminally investigate or prosecute any alcohol or drug abuse patient.[facility] AdministrationIn the event this information is protected by the Federal Confidentiality of Alcohol and Drug Abuse Patient Records regulations: The Federal rules restrict any use of the information to criminally investigate or prosecute any alcohol or drug abuse patient.[facility] AdministrationIn the event this information is protected by the Federal Confidentiality of Alcohol and Drug Abuse Patient Records regulations: The Federal rules restrict any use of the information to criminally investigate or prosecute any alcohol or drug abuse patient.[facility] AdministrationIn the event this information is protected by the Federal Confidentiality of Alcohol and Drug Abuse Patient Records regulations: The Federal rules restrict any use of the information to criminally investigate or prosecute any alcohol or drug abuse patient.[facility] AdministrationIn the event this information is protected by the Federal Confidentiality of Alcohol and Drug Abuse Patient Records regulations: The Federal rules restrict any use of the information to criminally investigate or prosecute any alcohol or drug abuse patient.[facility] AdministrationIn the event this information is protected by the Federal Confidentiality of Alcohol and Drug Abuse Patient Records regulations: The Federal rules restrict any use of the information to criminally investigate or prosecute any alcohol or drug abuse patient.[facility] AdministrationIn the event this information is protected by the Federal Confidentiality of Alcohol and Drug Abuse Patient Records regulations: The Federal rules restrict any use of the information to criminally investigate or prosecute any alcohol or drug abuse patient.[facility] AdministrationIn the event this information is protected by the Federal Confidentiality of Alcohol and Drug Abuse Patient Records regulations: The Federal rules restrict any use of the information to criminally investigate or prosecute any alcohol or drug abuse patient.[facility] AdministrationIn the event this information is protected by the Federal Confidentiality of Alcohol and Drug Abuse Patient Records regulations: The Federal rules restrict any use of the information to criminally investigate or prosecute any alcohol or drug abuse patient.[facility] AdministrationIn the event this information is protected by the Federal Confidentiality of Alcohol and Drug Abuse Patient Records regulations: The Federal rules restrict any use of the information to criminally investigate or prosecute any alcohol or drug abuse patient.[facility] AdministrationIn the event this information is protected by the Federal Confidentiality of Alcohol and Drug Abuse Patient Records regulations: The Federal rules restrict any use of the information to criminally investigate or prosecute any alcohol or drug abuse patient.[facility] AdministrationIn the event this information is protected by the Federal Confidentiality of Alcohol and Drug Abuse Patient Records regulations: The Federal rules restrict any use of the information to criminally investigate or prosecute any alcohol or drug abuse patient.[facility] AdministrationIn the event this information is protected by the Federal Confidentiality of Alcohol and Drug Abuse Patient Records regulations: The Federal rules restrict any use of the information to criminally investigate or prosecute any alcohol or drug abuse patient.[facility] AdministrationIn the event this information is protected by the Federal Confidentiality of Alcohol and Drug Abuse Patient Records regulations: The Federal rules restrict any use of the information to criminally investigate or prosecute any alcohol or drug abuse patient.[facility] AdministrationIn the event this information is protected by the Federal Confidentiality of Alcohol and Drug Abuse Patient Records regulations: The Federal rules restrict any use of the information to criminally investigate or prosecute any alcohol or drug abuse patient.[facility] AdministrationIn the event this information is protected by the Federal Confidentiality of Alcohol and Drug Abuse Patient Records regulations: The Federal rules restrict any use of the information to criminally investigate or prosecute any alcohol or drug abuse patient.[facility] AdministrationIn the event this information is protected by the Federal Confidentiality of Alcohol and Drug Abuse Patient Records regulations: The Federal rules restrict any use of the information to criminally investigate or prosecute any alcohol or drug abuse patient.[facility] AdministrationIn the event this information is protected by the Federal Confidentiality of Alcohol and Drug Abuse Patient Records regulations: The Federal rules restrict any use of the information to criminally investigate or prosecute any alcohol or drug abuse patient.[facility] AdministrationIn the event this information is protected by the Federal Confidentiality of Alcohol and Drug Abuse Patient Records regulations: The Federal rules restrict any use of the information to criminally investigate or prosecute any alcohol or drug abuse patient.[facility] AdministrationIn the event this information is protected by the Federal Confidentiality of Alcohol and Drug Abuse Patient Records regulations: The Federal rules restrict any use of the information to criminally investigate or prosecute any alcohol or drug abuse patient.[facility] AdministrationIn the event this information is protected by the Federal Confidentiality of Alcohol and Drug Abuse Patient Records regulations: The Federal rules restrict any use of the information to criminally investigate or prosecute any alcohol or drug abuse patient.[facility] AdministrationIn the event this information is protected by the Federal Confidentiality of Alcohol and Drug Abuse Patient Records regulations: The Federal rules restrict any use of the information to criminally investigate or prosecute any alcohol or drug abuse patient.[facility] AdministrationIn the event this information is protected by the Federal Confidentiality of Alcohol and Drug Abuse Patient Records regulations: The Federal rules restrict any use of the information to criminally investigate or prosecute any alcohol or drug abuse patient.[facility] AdministrationIn the event this information is protected by the Federal Confidentiality of Alcohol and Drug Abuse Patient Records regulations: The Federal rules restrict any use of the information to criminally investigate or prosecute any alcohol or drug abuse patient.[facility] AdministrationIn the event this information is protected by the Federal Confidentiality of Alcohol and Drug Abuse Patient Records regulations: The Federal rules restrict any use of the information to criminally investigate or prosecute any alcohol or drug abuse patient.[facility] AdministrationIn the event this information is protected by the Federal Confidentiality of Alcohol and Drug Abuse Patient Records regulations: The Federal rules restrict any use of the information to criminally investigate or prosecute any alcohol or drug abuse patient.[facility] AdministrationIn the event this information is protected by the Federal Confidentiality of Alcohol and Drug Abuse Patient Records regulations: The Federal rules restrict any use of the information to criminally investigate or prosecute any alcohol or drug abuse patient.[facility] AdministrationIn the event this information is protected by the Federal Confidentiality of Alcohol and Drug Abuse Patient Records regulations: The Federal rules restrict any use of the information to criminally investigate or prosecute any alcohol or drug abuse patient.[facility] AdministrationIn the event this information is protected by the Federal Confidentiality of Alcohol and Drug Abuse Patient Records regulations: The Federal rules restrict any use of the information to criminally investigate or prosecute any alcohol or drug abuse patient.[facility] AdministrationIn the event this information is protected by the Federal Confidentiality of Alcohol and Drug Abuse Patient Records regulations: The Federal rules restrict any use of the information to criminally investigate or prosecute any alcohol or drug abuse patient.[facility] AdministrationIn the event this information is protected by the Federal Confidentiality of Alcohol and Drug Abuse Patient Records regulations: The Federal rules restrict any use of the information to criminally investigate or prosecute any alcohol or drug abuse patient.[facility] AdministrationIn the event this information is protected by the Federal Confidentiality of Alcohol and Drug Abuse Patient Records regulations: The Federal rules restrict any use of the information to criminally investigate or prosecute any alcohol or drug abuse patient.[facility] AdministrationIn the event this information is protected by the Federal Confidentiality of Alcohol and Drug Abuse Patient Records regulations: The Federal rules restrict any use of the information to criminally investigate or prosecute any alcohol or drug abuse patient.[facility] AdministrationIn the event this information is protected by the Federal Confidentiality of Alcohol and Drug Abuse Patient Records regulations: The Federal rules restrict any use of the information to criminally investigate or prosecute any alcohol or drug abuse patient.[facility] AdministrationIn the event this information is protected by the Federal Confidentiality of Alcohol and Drug Abuse Patient Records regulations: The Federal rules restrict any use of the information to criminally investigate or prosecute any alcohol or drug abuse patient.[facility] AdministrationIn the event this information is protected by the Federal Confidentiality of Alcohol and Drug Abuse Patient Records regulations: The Federal rules restrict any use of the information to criminally investigate or prosecute any alcohol or drug abuse patient.[facility] AdministrationIn the event this information is protected by the Federal Confidentiality of Alcohol and Drug Abuse Patient Records regulations: The Federal rules restrict any use of the information to criminally investigate or prosecute any alcohol or drug abuse patient.[facility] AdministrationIn the event this information is protected by the Federal Confidentiality of Alcohol and Drug Abuse Patient Records regulations: The Federal rules restrict any use of the information to criminally investigate or prosecute any alcohol or drug abuse patient.[facility] AdministrationIn the event this information is protected by the Federal Confidentiality of Alcohol and Drug Abuse Patient Records regulations: The Federal rules restrict any use of the information to criminally investigate or prosecute any alcohol or drug abuse patient.[facility] AdministrationIn the event this information is protected by the Federal Confidentiality of Alcohol and Drug Abuse Patient Records regulations: The Federal rules restrict any use of the information to criminally investigate or prosecute any alcohol or drug abuse patient.[facility] AdministrationIn the event this information is protected by the Federal Confidentiality of Alcohol and Drug Abuse Patient Records regulations: The Federal rules restrict any use of the information to criminally investigate or prosecute any alcohol or drug abuse patient.[facility] AdministrationIn the event this information is protected by the Federal Confidentiality of Alcohol and Drug Abuse Patient Records regulations: The Federal rules restrict any use of the information to criminally investigate or prosecute any alcohol or drug abuse patient.[facility] AdministrationIn the event this information is protected by the Federal Confidentiality of Alcohol and Drug Abuse Patient Records regulations: The Federal rules restrict any use of the information to criminally investigate or prosecute any alcohol or drug abuse patient.[facility] AdministrationIn the event this information is protected by the Federal Confidentiality of Alcohol and Drug Abuse Patient Records regulations: The Federal rules restrict any use of the information to criminally investigate or prosecute any alcohol or drug abuse patient.[facility] AdministrationIn the event this information is protected by the Federal Confidentiality of Alcohol and Drug Abuse Patient Records regulations: The Federal rules restrict any use of the information to criminally investigate or prosecute any alcohol or drug abuse patient.[facility] AdministrationIn the event this information is protected by the Federal Confidentiality of Alcohol and Drug Abuse Patient Records regulations: The Federal rules restrict any use of the information to criminally investigate or prosecute any alcohol or drug abuse patient.[facility] AdministrationIn the event this information is protected by the Federal Confidentiality of Alcohol and Drug Abuse Patient Records regulations: The Federal rules restrict any use of the information to criminally investigate or prosecute any alcohol or drug abuse patient.[facility] AdministrationIn the event this information is protected by the Federal Confidentiality of Alcohol and Drug Abuse Patient Records regulations: The Federal rules restrict any use of the information to criminally investigate or prosecute any alcohol or drug abuse patient.[facility] AdministrationIn the event this information is protected by the Federal Confidentiality of Alcohol and Drug Abuse Patient Records regulations: The Federal rules restrict any use of the information to criminally investigate or prosecute any alcohol or drug abuse patient.[facility] AdministrationIn the event this information is protected by the Federal Confidentiality of Alcohol and Drug Abuse Patient Records regulations: The Federal rules restrict any use of the information to criminally investigate or prosecute any alcohol or drug abuse patient.[facility] AdministrationIn the event this information is protected by the Federal Confidentiality of Alcohol and Drug Abuse Patient Records regulations: The Federal rules restrict any use of the information to criminally investigate or prosecute any alcohol or drug abuse patient.[facility] AdministrationIn the event this information is protected by the Federal Confidentiality of Alcohol and Drug Abuse Patient Records regulations: The Federal rules restrict any use of the information to criminally investigate or prosecute any alcohol or drug abuse patient.[facility] AdministrationIn the event this information is protected by the Federal Confidentiality of Alcohol and Drug Abuse Patient Records regulations: The Federal rules restrict any use of the information to criminally investigate or prosecute any alcohol or drug abuse patient.[facility] AdministrationIn the event this information is protected by the Federal Confidentiality of Alcohol and Drug Abuse Patient Records regulations: The Federal rules restrict any use of the information to criminally investigate or prosecute any alcohol or drug abuse patient.[facility] AdministrationIn the event this information is protected by the Federal Confidentiality of Alcohol and Drug Abuse Patient Records regulations: The Federal rules restrict any use of the information to criminally investigate or prosecute any alcohol or drug abuse patient.[facility] AdministrationIn the event this information is protected by the Federal Confidentiality of Alcohol and Drug Abuse Patient Records regulations: The Federal rules restrict any use of the information to criminally investigate or prosecute any alcohol or drug abuse patient.[facility] AdministrationIn the event this information is protected by the Federal Confidentiality of Alcohol and Drug Abuse Patient Records regulations: The Federal rules restrict any use of the information to criminally investigate or prosecute any alcohol or drug abuse patient.[facility] AdministrationIn the event this information is protected by the Federal Confidentiality of Alcohol and Drug Abuse Patient Records regulations: The Federal rules restrict any use of the information to criminally investigate or prosecute any alcohol or drug abuse patient.[facility] AdministrationIn the event this information is protected by the Federal Confidentiality of Alcohol and Drug Abuse Patient Records regulations: The Federal rules restrict any use of the information to criminally investigate or prosecute any alcohol or drug abuse patient.[facility] Reason for Visit (unrecogniz ed section and content) Reason Comments PT Progress Note Specialty Diagnoses / Procedures Referred By Brett brandt Referred To Contact [facility] Diagnoses Radiculopathy, lumbar region Procedures CONSULT TO PHYSICAL THERAPY PHYSICAL THERAPY EVALUATION HIGH COMPLEX [address] [place] [address] [place] [address] [facility] [address] [address] Referral ID Status Reason Start Date Expiration Date V isits Requested Visits Authorized [id number] Authorized 04/15/2022 04/14/2023 20 20 Reason Comments Physical Therapy Specialty Diagnoses / Procedures Referred By Brett t Referred To Contact [facility] Diagnoses Radiculopathy, lumbar region Procedures CONSULT TO PHYSICAL THERAPY PHYSICAL THERAPY EVALUATION HIGH COMPLEX [address] [place] [address] [place] [address] [facility] [address] [place] [address] Reason Comments PT Progress Note Reason Comments Establish Care follow up from ED, b ack pain Specialty Diagnoses / Procedures Referred By Contac t Referred To Contact MR IMAGING Diagnoses Spinal stenosis of lumbar region without neurogenic claudication Procedures MRI LUMBAR SPINE WO IVCON MRI SPINAL CANAL LUMBAR W/O CONTRAST MATERIAL Yana Ballard, STROKE COORDINATOR.CHALK TESTER [address] [place] [address] Mr Imaging Referral ID Status Reason Start Date Expiration Date V isits Requested Visits Authorized [id number] Closed Auto-Generate d Referral 09/19/2021 10/19/2022 1 1 Reason Comments Results MRI Reason Onset Date Comments Refill Request 10/06/2021 Specialty Diagnoses / Procedures Referred By Contac t Referred To Contact Pain Management Diagnoses Lumbar disc herniation Procedures CONSULT TO PAIN MGT OFFICE/OUTPATIENT NEW HIGH MDM 60-74 MINUTES Yana Ballard, STROKE COORDINATOR.CHALK TESTER [address] [place] [address] Referral ID Status Reason Start Date Expiration Date Visits Requested Visits Authorized [id number] Pending Review PCP Requested Referral 10/06/2021 10/06/2022 [...] LUMBAR W/O CONTRAST MATERIAL Radha Dickens PA-C [address] [place] [address] Mr Imaging Referral ID Status Reason Start Date Expiration Date V isits Requested Visits Authorized [id number] Closed Auto-Generate d Referral 03/12/2022 04/26/2022 1 1 Specialty Diagnoses / Procedures Referred By Contac t Referred To Contact Diagnoses Pre-op testing Procedures REFER TO PACC - PRE ANESTHESIA CONSULTATION CLINIC OFFICE/OUTPATIENT COUNT INCLUDES [facility] MDM 60-[place] [address] [place] [address] Referral ID Status Reason Start Date Expiration Date Visits Requested Visits Authorized [id number] Pending Review PCP Requested Referral 03/16/2022 03/16/2023 1 1 Reason Comments Post Op Sore and stiffness Reason Comments PT Eval Referral ID Status Reason Start Date Expiration Date Visits Requested Visits Authorized [id number] Pending Review Auto-Generat ed Referral 04/04/2023 1 1 Reason Comments Follow Up Reason Comments Post Op Symptoms Reason Comments Leg Pain Reason Comments PT Discharge Specialty Diagnoses / Procedures Referred By Contac t Referred To Contact [facility] Diagnoses Radiculopathy, lumbar region Procedures CONSULT TO PHYSICAL THERAPY PHYSICAL THERAPY EVALUATION [facility] COM[facility]X [address] [place] [address] [place] [address] [facility] [address] [place] [address] Reason Comments Follow Up Pt states that [...] LUMBAR W/[place] [address] [place] [address] [place] [id number] Referral ID Status Reason Start Date Expiration Date V isits Requested Visits Authorized [id number] Closed Auto-Generate d Referral 02/06/2023 03/07/2024 1 1 Reason Comments Diarrhea Care Teams (unrecognized sec tion and content) 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 Start Date End Date Yana Ballard, STROKE COORDINATOR.CHALK TESTER [address] [facility] [id number] [place], [place] [address] PCP - General Family Practice 10/27/12 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 Start Date End Date Yana Ballard, STROKE COORDINATOR.CHALK TESTER [address] [address] PCP - General Family Practice 10/27/12 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 Start Date End Date Yana Ballard, STROKE COORDINATOR.CHALK TESTER [address] [address] PCP - General Family Practice 10/27/12 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 Start Date End Date Yana Ballard, STROKE COORDINATOR.CHALK TESTER [address] [address] PCP - General Family Practice 10/27/12 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 Start Date End Date Yana Ballard, STROKE COORDINATOR.CHALK TESTER [address] [address] PCP - General Family Practice 10/27/12 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 Start Date End Date Yana Ballard, STROKE COORDINATOR.CHALK TESTER [address] [address] PCP - General Family Practice 10/27/12 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 Start Date End Date Yana Ballard, STROKE COORDINATOR.CHALK TESTER [address] [address] PCP - General Family Practice 10/27/12 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 Start Date End Date Yana Ballard, STROKE COORDINATOR.CHALK TESTER [address] [address] PCP - General Family Practice 10/27/12 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 Start Date End Date Yana Ballard, STROKE COORDINATOR.CHALK TESTER [address] [address] PCP - General Family Practice 10/27/12 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 Start Date End Date Yana Ballard, STROKE COORDINATOR.CHALK TESTER [address] [address] PCP - General Family Practice 10/27/12 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 Start Date End Date Yana Ballard, STROKE COORDINATOR.CHALK TESTER [address] [address] PCP - General Family Practice 10/27/12 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 Start Date End Date Yana Ballard, STROKE COORDINATOR.CHALK TESTER [address] [address] PCP - General Family Practice 10/27/12 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 Start Date End Date Yana Ballard, STROKE COORDINATOR.CHALK TESTER [address] [address] PCP - General Family Practice 10/27/12 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 Start Date End Date Yana Ballard, STROKE COORDINATOR.CHALK TESTER [address] [address] PCP - General Family Practice 10/27/12 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 Start Date End Date Yana Ballard, STROKE COORDINATOR.CHALK TESTER [address] [address] PCP - General Family Practice 10/27/12 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 Start Date End Date Yana Ballard, STROKE COORDINATOR.CHALK TESTER [address] [address] PCP - General Family Practice 10/27/12 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 Start Date End Date aYna Ballard, STROKE COORDINATOR.CHALK TESTER [address] [address] PCP - General Family Practice 10/27/12 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 Start Date End Date Yana Ballard APRN.CHALK TESTER [address] [facility] [id number] [place] [address] PCP - General Family Practice 10/27/12 12/11/21 Thomas Salinas MD [address] [place] [address] PCP - General Family Practice 12/12/21 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 Start Date End Date Thomas Salinas MD [address] [place] [address] PCP - General Family Practice 12/12/21 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 Start Date End Date Thomas Salinas MD [address] [place] [address] PCP - General Family Medicine 12/12/21 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 Start Date End Date Thomas Salinas MD [address] [place] [address] PCP - General Family Medicine 12/12/21 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 Start Date End Date Tohmas Salinas MD [address] [place] [address] PCP - General Family Medicine 12/12/21 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 Start Date End Date Thomas Salinas MD [address] [place] [address] PCP - General Family Medicine 12/12/21 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 Start Date End Date Thomas Salinas MD [address] [place] [address] PCP - General Family Medicine 12/12/21 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 [place] [address] [place] [address], [place] [address] PCP - General Family Medicine 12/12/21 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 Start [place] [address] [place] [address], [place] [address] PCP - General Family Medicine 12/12/21 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 Start Date End Date Thomas Salinas MD [address] [place] [address], [place] [address] PCP - General Family Medicine 12/12/21 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 Start Date End Date Thomas Salinas MD [address] [place] [address] [place] [address] PCP - General Family Medicine 12/12/21 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 Start Date End Date Thomas Salinas MD [address] [place] [address], [place] [address] PCP - General Family Medicine 12/12/21 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 Start Date End Date Thomas Salinas MD [address] [place] [address], [place] [address] PCP - General Family Medicine 12/12/21 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 Start [place] [address] [place] [address], [place] [address] PCP - General Family Medicine 12/12/21 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 Start Date End Date Thomas Salinas MD [address] [place] [address], [place] [address] PCP - General Family Medicine 12/12/21 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 Start Date End Date Thomas Salinas MD [address] [place] [address] PCP - General Family Medicine 12/12/21 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 Start Date End Date Thomas Salinas MD [address] [place] [address] PCP - General Family Medicine 12/12/21 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 Start Date End Date Thomsa Salinas MD [address] [place] [address] PCP - General Family Medicine 12/12/21 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 Start Date End Date Thomas Salinas MD [address] [place] [address] PCP - General Family Medicine 12/12/21 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 Start Date End Date Thomas Salinas MD [address] [place] [address] PCP - General Family Medicine 12/12/21 Team Status: Active Member Role Status Dates Yana Ballard DIRECTOR OF CONSTRUCTION, DIRECTOR OF CONSTRUCTION-C Primary Care Provider Active Team Status: Inactive Member Role Status Dates Yana Ballard DIRECTOR OF CONSTRUCTION, DIRECTOR OF CONSTRUCTION-C Primary Care Provider Active Dr. Isabel Marino MD Attending Provider, Referr ing Provider Active 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 Start Date End Date Thomas Salinas MD [address] [place] [address] PCP - General Family Medicine 12/12/21 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 Start Date End Date Thomas Salinas MD [address] [place] [address] PCP - General Family Medicine 12/12/21 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 Start Date End Date Thomas Salinas MD [address] [place] [address] PCP - General Family Medicine 12/12/21 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 Start Date End Date Thomas Salinas MD [address] [place] [address] PCP - General Family Medicine 12/12/21 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 Start Date End Date Thomas Salinas MD [address] [place] [address] PCP - General Family Medicine 12/12/21 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 Start Date End Date Thomas Salinas MD [address] [place] [address] PCP - General Family Medicine 12/12/21 Team [...] 2024 End: April 14, 2024 Barbie Mitchell DIRECTOR OF CONSTRUCTION, DIRECTOR OF CONSTRUCTION-C Attending Provider Active Start: April 14, 2024 End: April 14, 2024 Team Status: Inactive Member Role Status Dates Dr. Thomas Salinas MD Primary Care Provider Acti ve Start: April 14, 2024 End: April 14, 2024 Barbie Mitchell DIRECTOR OF CONSTRUCTION, DIRECTOR OF CONSTRUCTION-C Attending Provider Active Start: April 14, 2024 End: April 14, 2024 Barbie Mitchell DIRECTOR OF CONSTRUCTION, DIRECTOR OF CONSTRUCTION-C Referring Provider Active Start: April 14, 2024 [...] Status: Inactive Member Role Status Dates Dr. Thoams Salinas MD Primary Care Provider Acti ve [...] End: August 05, 2024 Barbie Mitchell NP, DIRECTOR OF CONSTRUCTION-C Attending Provider Active Start: August 05, 2024 End: August 05, 2024 Team Status: Inactive Member Role Status Dates Dr. Thomas Salinas MD Primary Care Provider Acti ve Start: August 17, 2024 End: August 17, 2024 Dr. Thomas Salinas MD Referring Provider Active Start: August 17, 2024 End: August 17, 2024 Barbie Mitchell NP, DIRECTOR OF CONSTRUCTION-C Attending Provider Active Start: August 17, 2024 [...] Inactive Member Role/Relationship Status Dates Dr. Thomas Sailnas MD Primary Care Provider Acti ve Start: August 05, 2024 End: August 05, 2024 Dr. Thomas Salinas MD Referring Provider Active Start: August 05, 2024 End: August 05, 2024 Barbie Mitchell DIRECTOR OF CONSTRUCTION, DIRECTOR OF CONSTRUCTION-C Attending Provider Active Start: August 05, 2024 End: August 05, 2024 Team Status: Inactive Member Role/Relationship Status Dates Dr. Thomas Salinas MD Primary Care Provider Acti ve Start: August 17, 2024 End: August 17, 2024 Dr. Thomas Salinas MD Referring Provider Active Start: August 17, 2024 End: August 17, 2024 Barbie Mitchell DIRECTOR OF CONSTRUCTION, DIRECTOR OF CONSTRUCTION-C Attending Provider Active Start: August 17, 2024 [...] End: August 05, 2024 Barbie Mitchell NP, DIRECTOR OF CONSTRUCTION-C Attending Provider Active Start: August 05, 2024 End: August 05, 2024 Team Status: Inactive Member Role/Relationship Status Dates Dr. Thomas Salinas MD Primary Care Provider Acti ve Start: August 17, 2024 End: August 17, 2024 Dr. Thomas Salinas MD Referring Provider Active Start: August 17, 2024 End: August 17, 2024 Barbie Mitchell NP, DIRECTOR OF CONSTRUCTION-C Attending Provider Active Start: August 17, 2024 [...] 2024 End: August 05, 2024 Barbie Mitchell DIRECTOR OF CONSTRUCTION, DIRECTOR OF CONSTRUCTION-C Attending Provider Active Start: August 05, 2024 End: August 05, 2024 Team Status: Inactive Member Role/Relationship Status Dates Dr. Thomas Salinas MD Primary Care Provider Acti ve Start: August 17, 2024 End: August 17, 2024 Dr. Thomas Salinas MD Referring Provider Active Start: August 17, 2024 End: August 17, 2024 Barbie Mitchell DIRECTOR OF CONSTRUCTION, DIRECTOR OF CONSTRUCTION-C Attending Provider Active Start: August 17, 2024 [...] 2024 End: December 01, 2024 Barbie Mitchell DIRECTOR OF CONSTRUCTION, DIRECTOR OF CONSTRUCTION-C Attending Provider Active Start: December 01, 2024 [...] 2024 End: August 17, 2024 Barbie Mitchell DIRECTOR OF CONSTRUCTION, DIRECTOR OF CONSTRUCTION-C Attending Provider Active Start: August 17, 2024 [...] 2024 End: December 01, 2024 Barbie Mitchell DIRECTOR OF CONSTRUCTION, DIRECTOR OF CONSTRUCTION-C Attending Provider Active Start: December 01, 2024 [...] Inactive Member Role/Relationship Status Dates Dr. Thomas Slainas MD Primary Care Provider Acti ve Start: December 01, 2024 End: December 01, 2024 Dr. Thomas Salinas MD Referring Provider Active Start: December 01, 2024 End: December 01, 2024 Barbie Mitchell NP, DIRECTOR OF CONSTRUCTION-C Attending Provider Active Start: December 01, 2024 [...] 2024 End: December 28, 2024 Barbie Mitchell DIRECTOR OF CONSTRUCTION, DIRECTOR OF CONSTRUCTION-C Attending Provider Active Start: December 28, 2024 [...] December 01, 2024 End: December 01, 2024 Babrie Mitchell NP DIRECTOR OF CONSTRUCTION-C Attending physician Active Start: December 01, 2024 [...] End: December 28, 2024 Barbie Mitchell NP DIRECTOR OF CONSTRUCTION-C Attending physician Active Start: December 28, 2024 [...] BE BASED ON THE PRIMARY CLINICAL RECORDS. [employer] provides no warranty or guarantee of the accuracy or completeness of information in this document.
== END | disposition home or self-care (01) ==
PROVIDERS: PCP Family Medicine; Referring Provider Advanced Practice Midwife; Visit Provider Advanced Practice Midwife
DX: O09.92 Supervision of high risk pregnancy, unspecified, second trimester (principal); Z3A.36 36 weeks gestation of pregnancy
CPT/HCPCS: 87081

== ENCOUNTER 2025-02-02 19:00 | Observation (INO) | payer OTHER, SELFPAY ==
[2025-02-02 16:34] VITALS: BP 122/73; PULSE 89; RESP 18; TEMP 36.4
[2025-02-02 16:45] VITALS: BMI 35.5
[2025-02-02] MEDS: Lactated Ringers 1,000 ML 999 ML IV (17:35)
[2025-02-02 18:36] VITALS: RESP 18; TEMP 36.3
[2025-02-02 18:37] VITALS: BP 120/77; PULSE 61
[2025-02-02] MEDS: 0.9% Saline Lock 10 ML Syringe IV (18:51)
--- NOTE | 2025-02-02 19:03 | OB.TRI.HP_ITS ---
HPI - General General Date of Admission: 02/02/25 HPI Narrative ERICK ASKEW, is a 34 F @ 36 weeks 6 days who presents with decreased movement and painful contractions. After 2 hour she did not change her cervix despite iv fluids and continuous contractions every 3 minutes. The patient lives over an hour away and is nervous she will go into labor at home. The decision was made to admit to observation over night and if contractions down at anytime she may go home, but if picks up and changes cervix will admit for labor. Maternal Data Information BALAJI Calculator 2 Estimated Delivery Date Method Current WG Current Estimate 02/24/25 Ultrasound #1 36w 6d Other Estimates 02/27/25 LMP (Certain) 36w 3d PFSH PFSH Medical History Spontaneous Herniated disc Endometritis following delivery Home Medications Medication Instructions Recorded Last Taken Type docosahexaenoic acid 200 mg 200 mg PO DAILY 04/01/24 1 21:00 History capsule ( DHA) 200 mg sertraline 50 mg tablet (Zoloft) 50 mg PO QDAY #30 tab s 12/03/24 02/01/25 21:00 Rx 50 mg Lactobacills gasseri-Bifidobac 2 cap PO DAILY 02/02/25 02/01/25 21:00 History bifidum,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 2 caps capsule magnesium glycinate 120 mg (as 240 mg PO DAILY 5 02/01/25 21:00 History glycinate) capsule 240 mg Allergy/AdvReac Type Severity Reaction Status Date / Time amoxicillin Allergy Intermediate Rash Verified 02/02/25 16:59 vancomycin Allergy Intermediate Rash Verified 02/02/25 16:59 Penicillins Allergy Mild hives Verified 02/02/25 16:59 shellfish derived Allergy Mild hives Verified 02/02/25 16:59 Family History Uncle Colon cancer Liver cancer Grandfather Liver cancer Pancreatic cancer Uncle Diverticulitis Grandmother Heart disease Uncle Heart disease Surgical History Previous back surgery Social History adopted: No household members: spouse and children housing: house number of children: 1 current occupational status: employed current occupation: [employer] current occupational exposures/hazards: No pets and animals: Yes (Not managing litterbox) pets and animals: cat(s), dog(s) and other details: rabbit history of recent travel: No sexually active: Yes Smoking Status: Former smoker quit date: 06/16/24 how long ago did patient quit smokin06/16/24 second hand exposure: No quit status: quit date established alcohol intake: current alcohol intake frequency: a few times a month details: Not while substance use type: does not use well-balanced diet: daily or most days caffeine: Yes Type: coffee and tea eating out: 1-3 times/week during the past year weight has: remained stable what type of physical activity do you participate in: walking frequency: 3-4 times per week duration: 15-30 minutes/day agata/baptist: Spiritism seatbelt use: always do you feel safe at home: Yes additional social history: : [employer] History 3 Elective abortions Hx Para 1 Spontaneous abortions 1 Hx # Term Pregnancies 1 Ectopic pregnancies Hx # Pregnancies Multiple births # of living children 1 Past Pregnancies Del. Date Name GA/Weeks Outcome Route Bth Weight Infant Gen Labor Lgth Anesthesia Del Locatn Provider FOB 08/11/20 Janie 39 live - full term 7lbs 8.5oz Female epidural [facility] Dr. Quang Samaniego 03/15/24 4 spontaneous Delivery Date: 08/11/20 Last Updated by: Cherelle Reeder Induced Visit Details Expected Delivery Route/Plan Labor Preferences- CB/BF classes: no labor support person: Aden labor intervention preferences: [] pain management options preferred: epidural cut cord/dad catch: cord : yes PP control planned: discussed discussed possible routes of delivery and associated risks: [] special requests: [] Plans Covid status: [] Flu vaccine: [] Tdap vaccine: given Rhogam: NA LARC form signed: yes Problem list reviewed and updated with the most current plan of care details and appropriate orders placed. Relevant counseling for the gestational age provided. Continue routine care and follow up unless otherwise noted in visit notes/problem list details OB Flowsheet Initial Weight: Not Recorded Date - - - - - - - - - - - - - EGA Weight BP Urine Prot - - - - - - - - - - - - - Glucose FHR FuHt Pres Dilation - - - - - - - - - - - - - Effaced St Visit Note 07/20/24 - - - - - - - - - - - - - 8w 5d 182 lb 6 oz 117/79 - - - - - - - - - - - - - 170 - - - - - - - - - - - - - JV- CRL consiste nt with LMP and prior ultrasound. desires NIPT and carrier screen. 08/05/24 - - - - - - - - - - - - - 11w 0d 183 lb 126/78 Negative - - - - - - - - - - - - - Negative 173 - - - - - - - - - - - - - -work in. Fel l on knees last night/increased cramping. No bleeding. Hx of SAB. Live IUP on br US. 08/17/24 - - - - - - - - - - - - - 12w 5d 184 lb 8 oz 104/68 Trac e - - - - - - - - - - - - - Negative 157 - - - - - - - - - - - - - MH-No VB. Nausea improving. Br US confirm FHT 09/14/24 - - - - - - - - - - - - - 16w 5d 190 lb 2 oz 106/71 Nega tive - - - - - - - - - - - - - Negative 156 - - - - - - - - - - - - - KW- No vb/crampi ng. having migraines from lack of caffeine-discussed usage. Anatomy US ordered. AFP declined. 10/12/24 - - - - - - - - - - - - - 20w 5d 195 lb 6 oz 119/75 Nega tive - - - - - - - - - - - - - Negative 140 - - - - - - - - - - - - - SM- no vb crampi ng 11/09/24 - - - - - - - - - - - - - 24w 5d 202 lb 6 oz 104/71 Trac e - - - - - - - - - - - - - Negative 136 24 - - - - - - - - - - - - - KW-no vb/lof/ctx . good fm. discussed magnesium for leg cramps. belly band encouraged. glucose discussed 12/01/24 - - - - - - - - - - - - - 27w 6d 206 lb 4 oz 112/70 Nega tive - - - - - - - - - - - - - Negative 138 27 - - - - - - - - - - - - - MH-No VB. LOF. G ood FM. some RL pain/backache-seeing chiro and using steffen band with benefit. 28 wk labs pending. Larc 12/15/24 - - - - - - - - - - - - - 29w 6d 205 lb 9 oz 106/69 Trac e - - - - - - - - - - - - - Negative 147 30.5 - - - - - - - - - - - - - JV- no lof, vagi nal bleeding, or dec fm JV- no lof, vaginal bleeding , or dec fm. she would like me to do her delivery if available. discussed the group call schedule dynamics and she understands. 12/28/24 - - - - - - - - - - - - - 31w 5d 210 lb 118/72 Trace - - - - - - - - - - - - - Negative 136 32 - - - - - - - - - - - - - MH-No VB, LOF. G ood FM. Tdap. Enc RSV vaccine. Note ok for massage 01/11/25 - - - - - - - - - - - - - 33w 5d 215 lb 5 oz 118/75 Nega tive - - - - - - - - - - - - - Negative 130 33 - - - - - - - - - - - - - KW- no vb/lof/ct x. good fm. 01/26/25 - - - - - - - - - - - - - 35w 6d 213 lb 2 oz 112/74 Trac e - - - - - - - - - - - - - Negative 130 35 - - - - - - - - - - - - - SM- no vb lof go od fm n oregular ctx 02/01/25 - - - - - - - - - - -- - - 36w 5d 214 lb 7 oz 109/75 Nega tive - - - - - - - - - - - - - Negative 130 36 Cephalic 1 - - - - - - - - - - - - - 50 -1 KW- no vb/ lof/ctx. good fm. feels that baby has moved down. GBS today ROS Constitutional Constitutional: Reports systems reviewed and no addt'l complaints, except as documented Gastrointestinal Gastrointestinal: Denies bloating, constipation, cramping, diarrhea, nausea or vomiting Genitourinary Genitourinary: Reports other Details: Denies vaginal odor, vaginal bleeding, or vaginal discharge ; Denies difficulty urinating or flank pain Physical Exam HEENT normocephalic Resp normal respiratory effort and normal air movement no CVA tenderness Extremity normal to inspection General Extremity: edema bilateral (trace ) NST FHR Rate Baby A Baseline: 140 Variability:: Moderate Accelerations:: 15 x 15 Decelerations:: None NST Reactive:: Yes FHR Category:: Category I Charges/Coding Visit Charges OBSV E&M: 03399 Observ/hosp same date L2 Multi Select Codes Urinary/Genital Urinary/Genital CPT Codes: 16881-29 non-stress test Interp
--- NOTE | 2025-02-02 19:03 | OB.TRI.NOTE ---
HPI - General General Date of Admission: 02/02/25 HPI Narrative ERICK ASKEW, is a 34 F @ 36 weeks 6 days who presents with decreased movement and painful contractions. After 2 hour she did not change her cervix despite iv fluids and continuous contractions every 3 minutes. The patient lives over an hour away and is nervous she will go into labor at home. The decision was made to admit to observation over night and if contractions down at anytime she may go home, but if picks up and changes cervix will admit for labor. Maternal Data Information BALAJI Calculator Estimated Delivery Date Method Current WG Current Estimate 02/24/25 Ultrasound #1 36w 6d Other Estimates 02/27/25 LMP (Certain) 36w 3d PFSH PFSH Medical History Spontaneous Herniated disc Endometritis following delivery Home Medications Medication Instructions Recorded Last Taken Type docosahexaenoic acid 200 mg 200 mg PO DAILY 04/01/24 02/01/25 21:00 History capsule ( DHA) 200 mg sertraline 50 mg tablet (Zoloft) 50 mg PO QDAY #30 tabs 12/03/24 02/01/25 21:00 Rx 50 mg Lactobacills gasseri-Bifidobac 2 cap PO DAILY 02/02/25 02/01/25 21:00 History bifidum,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 2 caps capsule magnesium glycinate 120 mg (as 240 mg PO DAILY 02/02/25 02/01/25 21:00 History glycinate) capsule 240 mg Allergy/AdvReac Type Severity Reaction Status Date / Time amoxicillin Allergy Intermediate Rash Verified 02/02/25 16:59 vancomycin Allergy Intermediate Rash Verified 02/02/25 16:59 Penicillins Allergy Mild hives Verified 02/02/25 16:59 shellfish derived Allergy Mild hives Verified 02/02/25 16:59 Family History Uncle Colon cancer Liver cancer Grandfather Liver cancer Pancreatic cancer Uncle Diverticulitis Grandmother Heart disease Uncle Heart disease Surgical History Previous back surgery Social History adopted: No household members: spouse and children housing: house number of children: 1 current occupational status: employed current occupation: [employer] current occupational exposures/hazards: No pets and animals: Yes (Not managing litterbox) pets and animals: cat(s), dog(s) and other details: rabbit history of recent travel: No sexually active: Yes Smoking Status: Former smoker quit date: 06/16/24 how long ago did patient quit smokin06/16/24 second hand exposure: No quit status: quit date established alcohol intake: current alcohol intake frequency: a few times a month details: Not while substance use type: does not use well-balanced diet: daily or most days caffeine: Yes Type: coffee and tea eating out: 1-3 times/week during the past year weight has: remained stable what type of physical activity do you participate in: walking frequency: 3-4 times per week duration: 15-30 minutes/day agata/buddhist: Orthodoxy seatbelt use: always do you feel safe at home: Yes 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 Date Name GA/Weeks Outcome Route Bth Weight Infant Gen Labor Lgth Anesthesia Del Locatn Provider FOB 08/11/20 Janie 39 live - full term 7lbs 8.5oz Female epidural [facility] Dr. Quang Samaniego 03/15/24 4 spontaneous Delivery Date: 08/11/20 Last Updated by: Cherelle Reeder Induced Visit Details Expected Delivery Route/Plan Labor Preferences- CB/BF classes: no labor support person: Aden labor intervention preferences: [] pain management options preferred: epidural cut cord/dad catch: cord : yes PP control planned: discussed discussed possible routes of delivery and associated risks: [] special requests: [] Plans Covid status: [] Flu vaccine: [] Tdap vaccine: given Rhogam: NA LARC form signed: yes Problem list reviewed and updated with the most current plan of care details and appropriate orders placed. Relevant counseling for the gestational age provided. Continue routine care and follow up unless otherwise noted in visit notes/problem list details OB Flowsheet Initial Weight: Not Recorded Date <del> </del> EGA Weight BP Urine Prot <del> </del> Glucose FHR FuHt Pres Dilation <del> </del> Effaced St Visit Note 07/20/24 <del> </del> 8w 5d 182 lb 6 oz 117/79 <del> </del> 170 <del> </del> JV- CRL consistent with LMP and prior ultrasound. desires NIPT and carrier screen. 08/05/24 <del> </del> 11w 0d 183 lb 126/78 Negative <del> </del> Negative 173 <del> </del> MH-work in. Fell on knees last night/increased cramping. No bleeding. Hx of SAB. Live IUP on br US. 08/17/24 <del> </del> 12w 5d 184 lb 8 oz 104/68 Trace <del> </del> Negative 157 <del> </del> MH-No VB. Nausea improving. Br US confirm FHT 09/14/24 <del> </del> 16w 5d 190 lb 2 oz 106/71 Negative <del> </del> Negative 156 <del> </del> KW- No vb/cramping. having migraines from lack of caffeine-discussed usage. Anatomy US ordered. AFP declined. 10/12/24 <del> </del> 20w 5d 195 lb 6 oz 119/75 Negative <del> </del> Negative 140 <del> </del> SM- no vb cramping 11/09/24 <del> </del> 24w 5d 202 lb 6 oz 104/71 Trace <del> </del> Negative 136 24 <del> </del> KW-no vb/lof/ctx. good fm. discussed magnesium for leg cramps. belly band encouraged. glucose discussed 12/01/24 <del> </del> 27w 6d 206 lb 4 oz 112/70 Negative <del> </del> Negative 138 27 <del> </del> MH-No VB. LOF. Good FM. some RL pain/backache-seeing chiro and using steffen band with benefit. 28 wk labs pending. Larc 12/15/24 <del> </del> 29w 6d 205 lb 9 oz 106/69 Trace <del> </del> Negative 147 30.5 <del> </del> JV- no lof, vaginal bleeding, or dec fm JV- no lof, vaginal bleeding, or dec fm. she would like me to do her delivery if available. discussed the group call schedule dynamics and she understands. 12/28/24 <del> </del> 31w 5d 210 lb 118/72 Trace <del> </del> Negative 136 32 <del> </del> MH-No VB, LOF. Good FM. Tdap. Enc RSV vaccine. Note ok for massage 01/11/25 <del> </del> 33w 5d 215 lb 5 oz 118/75 Negative <del> </del> Negative 130 33 <del> </del> KW- no vb/lof/ctx. good fm. 01/26/25 <del> </del> 35w 6d 213 lb 2 oz 112/74 Trace <del> </del> Negative 130 35 <del> </del> SM- no vb lof good fm n oregular ctx 02/01/25 <del> </del> 36w 5d 214 lb 7 oz 109/75 Negative <del> </del> Negative 130 36 Cephalic 1 <del> </del> 50 -1 KW- no vb/lof/ctx. good fm. feels that baby has moved down. GBS today ROS Constitutional Constitutional: Reports systems reviewed and no addt'l complaints, except as documented Gastrointestinal Gastrointestinal: Denies bloating, constipation, cramping, diarrhea, nausea or vomiting Genitourinary Genitourinary: Reports other Details: Denies vaginal odor, vaginal bleeding, or vaginal discharge ; Denies difficulty urinating or flank pain Physical Exam HEENT normocephalic Resp normal respiratory effort and normal air movement no CVA tenderness Extremity normal to inspection General Extremity: edema bilateral (trace ) NST FHR Rate Baby A Baseline: 140 Variability:: Moderate Accelerations:: 15 x 15 Decelerations:: None NST Reactive:: Yes FHR Category:: Category I Charges/Coding Visit Charges OBSV E&M: 84752 Observ/hosp same date L2 Multi Select Codes Urinary/Genital Urinary/Genital CPT Codes: 45165-49 non-stress test Interp
--- OUTSIDE RECORDS SUMMARY | 2025-02-02 19:11 | XMS RPT_ITS | CCD ---
Author Organization [facility] Care Team Providers Care Twisting Frame Fixer Name Role Phone Ana Rosa Wallace IIIand Mingo Primary Care Physician [phone] Ziol CARE MANAGER.Yana KAUFMAN Primary Care Provider Elio CARE MANAGER.Yana KAUFMAN Primary Care Provider Elio CARE MANAGER.Yana KAUFMAN Primary Care Provider Thomas Salinas MD Primary [...] e Dr. Royce Chapin DO Attending Provider [phone] Dr. Royce Chapin DO Emergency Provider [phone] Brad WHITAKER, Dr. Machado Primary Care Provider Jamila WHITAKER, Dr. Hall Attending Provider Jamila WHITAKER, Dr. Hall Referring Provider Brad WHITAKER, Dr. Machado Referring Provider Humble SITE SPECIALIST-C, Barbie Attending Provider Humble SITE SPECIALIST-C, Barbie Referring Provider [phone] Judy Worthington DO, Dr. Wolf Attending Provider Judy Worthington DO, Dr. Wolf Referring Provider Thuan RN, Renay Attending Provider [facility] ioana Salinas MD, Dr. Machado Primary Care Provider Brad WHITAKER, Dr. Machado Referring Provider Paula SITE SPECIALIST-C, Barbie Attending Provider [phone] Juan ARRIAGA, Ximena Attending Provider [phone] THOMAS SALINAS F [facility] MICHAUD Attending Unavailable XIMENA MCGHEE S Referring Unavailable Jamila WHITAKER, Dr. Hall Attending Provider Jamila WHITAKER, Dr. Hall Referring Provider Brad WHITAKER, Dr. Machado Primary Care Provider Judy Worthington DO, Dr. Wolf Attending Provider Judy Worthington DO, Dr. Wolf Referring Provider Brad WHITAKER, Dr. Machado Primary Care Provider Brad WHITAKER, Dr. Machado Referring Provider Ximena Mcghee CNM Referring Provider [phone] Brad WHITAKER, Dr. Machado Primary Care Provider Brad WHITAKER, Dr. Machado Referring Provider Paula SITE SPECIALIST-C, Barbie Attending Provider [phone] Judy Worthington DO, Dr. Wolf Attending Provider Brad WHITAKER, Dr. Machado Primary Care Provider Brad WHITAKER, Dr. Machado Referring Provider [phone] Paula SITE SPECIALIST-CBarbie Attending Provider [phone] Brad WHITAKER, Dr. Machado Primary Care Physicia n Jamila WHITAKER, Dr. Hall Attending Physician Brad WHITAKER, Dr. Machado Referring Provider [phone] Ximena Mcghee CNM Attending Physician [phone] Paula HAMLIN-CBarbie Attending Physician [phone] Judy Worthington DO, Dr. Wolf Attending Physician Ximena Mcghee Attending Unavailable Ximena Mcghee Referring Unavailable Grabenstetter, Thomas Primary Care Unavailable Isabel Marino Attending Unavailable Isabel Marino Referring Unavailable Grabenstetter, Thomas Primary Care Unavailable Isabel Marino Referring Unavailable Isabel Marino Attending Unavailable Grabenstetter, Thomas Primary Care Unavailable Grabenstetter, Thomas Referring Unavailable Vande VeldeMaryann Attending Unavailabl e Grabenstetter, Thomas Primary Care Unavailable Grabenstetter, Thomas Primary Care Unavailable Grabenstetter, Thomas Referring Unavailable MarcIsabel taveras Attending Unavailable Grabenstetter, Thomas Primary Care Unavailable Grabenstetter, Thomas Referring Unavailable Ximena Mcghee Attending Unavailable Vande VelMaryann andino Referring Unavailabl e Vande Velde, Maryann Attending Unavailabl e Grabenstetter, Thomas Primary Care Unavailable Vande VeldeMaryann Referring Unavailabl e Vande Velde, Maryann Attending Unavailabl e Grabenstetter, Thomas Primary Care Unavailable Isabel Marino Attending Unavailable Isabel Marino Referring Unavailable Grabenstetter, Thomas Primary Care Unavailable Ximena Mcghee Attending Unavailable Grabenstetter, Thomas Primary Care Unavailable Vande Velde, Maryann Referring Unavailabl e Vande Velde, Maryann Attending Unavailabl e Grabenstetter, Thomas Primary Care Unavailable Grabenstetter, Thomas Primary Care Unavailable Grabenstetter, Thomas Referring Unavailable Humble SITE SPECIALIST, Barbie Attending Unavailable Isabel Marino Attending Unavailable Grabenstetter, Thomas Referring Unavailable Grabenstetter, Thomas Primary Care Unavailable Ximena Mcghee Attending Unavailable Grabenstetter, Thomas Referring Unavailable Grabenstetter, Thomas Primary Care Unavailable Humble SITE SPECIALIST, Barbie Attending Unavailable Grabenstetter, Thomas Referring Unavailable Grabenstetter, Thomas Primary Care Unavailable Vande VeldeMaryann Attending Unavailabl e Grabenstetter, Thomas Referring Unavailable Grabenstetter, Thomas Primary Care Unavailable Vande Velde, Maryann Referring Unavailabl e Vande Velde, Maryann Attending Unavailabl e Grabenstetter, Thomas Primary Care Unavailable Vande Sanchezde, Maryann Attending Unavailabl e Grabenstetter, Thomas Primary Care Unavailable Vandioana Worthington, Maryann Referring Unavailabl e Vande Velde, Maryann Attending Unavailabl e Grabenstetter, Thomas Primary Care Unavailable Royce Chapin Attending Unavailable Grabenstetter, Thomas Primary Care Unavailable VandMaryann Uribe Referring Unavailabl e Vande Velde, Maryann Attending Unavailabl e Grabenstetter, Thomas Primary Care Unavailable Ximena Mcghee Attending Unavailable Grabenstetter, Thomas Referring Unavailable Grabenstetter, Thomas Primary Care Unavailable Renay Larose Attending Unavailable Grabenstetter, Thomas Primary Care Unavailable Humble SITE SPECIALIST, Barbie Attending Unavailable Grabenstetter, Thomas Referring Unavailable Grabenstetter, Thomas Primary Care Unavailable Ximena Mcghee Attending Unavailable Grabenstetter, Thomas Referring Unavailable Grabenstetter, Thomas Primary Care Unavailable Humble SITE SPECIALIST, Barbie Attending Unavailable Grabenstetter, Thomas Primary Care Unavailable Grabenstetter, Thomas Referring Unavailable Grabenstetter, Thomas Referring Unavailable Humble SITE SPECIALIST, Barbie Attending Unavailable Grabenstetter, Thomas Primary Care Unavailable Vande VeldeLottieMaryann Referring Unavailabl e Vande Velde, Maryann Attending Unavailabl e Grabenstetter, Thomas Primary Care Unavailable Humble SITE SPECIALIST, Barbie Attending Unavailable Paula SITE SPECIALIST, Barbie Referring Unavailable Grabenstetter, Thomas Primary Care Unavailable Allergies Allergy Classification Reported Allergen(s) Allergy Type Date of Onset Reaction(s) Facility (17 sources) Amoxicillin; Translations: [amoxicillin] Drug Allergy 4 Hives, Rash [facility] (20 sources) Shellfish; Translations: [shellfish] Drug allergy 3 Swelling, Shortness of Breath [facility] (9 sources) Penicillins; Translations: [PENICILLINS] Drug Intolerance 3 [facility] (20 sources) Penicillins Drug Intolerance 3 [facility] (20 sources) Vancomycin; Translations: [VANCOMYCIN] Drug Allergy 2 Itching [facility] (17 sources) Penicillins Allergy to substance 2 hives, breathing issues [facility] (18 sources) Shellfish; Translations: [shellfish derived] Allergy to substance 2 [facility] (1 source) Amoxicillin Drug Allergy 5 [facility] (1 source) Penicillins Drug allergy (disorder) 5 [facility] (1 source) Vancomycin Drug Allergy 5 [facility] Medications Current Medications Medication Drug Class(es) [...] Comment on above: As Instructed per esperanza caballero Take 16 mg by mouth once daily. mupirocin 0.02 mg/mg topical ointment (4 sources) RNA Synthetase Inhibitor Antibacterial Start: 2 End: 2 mupirocin (BACTROBAN) 2 % ointment Apply 1/2" ointment with a cotton swab in each nostril 2x daily for five days preop 22 g 0 12/14/2021 12/18/2021 Active Comment on above: Apply 1/2" ointment with a cotton swab in each [...] tablet (4 sources) Serotonin Reuptake Inhibitor Start: 5 take 1 tablet by mouth once daily Sertraline (Zoloft) 50 mg tablet Active 50 mg PO daily 30 3 December 03, 2024 12:00am Anxiety Anxiety disorder, [...] 10/07/2021 11/15/2021 Discontinued Start: 09-13-2021 End: 09-19-2021 [place] 325 mg-5 mg oral table t 1 [...] oral tablet (20 sources) Opioid Agonist Start: take 1 tablet by mouth every eight [...] Comment on above: Take 1 tablet by [facility] every 8 hours as needed for up [...] Comment on above: Take 1 capsule by [facility] twice daily. famotidine 20 mg oral tablet [...] Comment on above: Take 1 capsule by [facility] daily at bedtime for 30 days. Take 1 capsule by [facility] three times daily for 30 days. [...] 2024 1:00am July 03, 2024 1:08pm levonorgestrel 0.138668 mg/hr intrauterine system (20 sources) Progestin, Progestin-containing [...] above: Take 1 tablet by rodney th once daily for 7 days. POTASSIUM-99 ORAL (20 sources) POTASSIUM-99 ORA L Take by mouth as needed. 0 Active Comment on above: Take by mouth as nee ded. Yvkopbvx-Bel-Xa-Fa (1 source) Start: 2020 End: 2020 take 1 tablet by mouth once daily Bchqpspv-Hys-Xa-Fa Discontinued 1 TABLET PO DAILY August 10, 2020 12:00am November 09, 2020 11:39am Ocqrfdob-Xge-Hf-Fa 1 mg Tablet (16 sources) Start: 2020 End: 2020 take 1 tablet by mouth once daily Gtlhvnbz-Bfm-Fv-Fa 1 mg Tablet Discontinued 1 {tbl} PO DAILY August 10, 2020 12:00am November 09, 2020 11:39am Start: 08-10-2020 End: 11-09-2020 take 1 tablet by mouth once daily Nnnblbvd-Eph-Xo-Fa 1 mg Tablet Discontinued 1 {tbl} PO DAILY August 10, 2020 12:00am November 09, 2020 11:39am Problems Active Problems Problem Classification Problem Date Documented Da te Episodic/Chronic Anxiety disorders (17 sources) Anxiety; Translations: [Anxiety disorder, unspecified] Onset: 02-01-2025 12-01-2024 Chronic Comment on above: discussed counseling [...] high risk , unspecified, second trimester] Onset: 02-01-2025 Episodic Other gastrointestinal disorders (1 source) Diarrhea; [...] 05-16-2023 Episodic Residual codes; unclassified (1 source) 36 weeks gestation of ; Translations: [36 weeks gestation of ] Onset: 02-01-2025 Episodic Residual codes; unclassified (1 source) 35 [...] Test Name Value Interpretation Reference Range Facility Amphibian Crewmember Office Visit Reporton 02-01-2025 Amphibian Crewmember Office Visit Report [facility] [address] [place] [address], [address] [place] [address] OFFICE VISIT Date of Service: 02/01/25 MR#: [id number] Acct: [id number] Name: HANNAH HENDRICKS Rep #: [id number] : 1990 Provider: BART Kaur ams Age/Sex: 34/F Location: [facility] [place] Status: Signed Intake Vital Signs 12/15/24 09:22 01/26/25 09:21 02/01/25 09:19 Height 5 ft 6 in 5 ft 6 in 5 ft 6 in Weight: 214 lb 7 oz BMI 34.6 BP 109/75 Intake Visit Reasons: 37wk ob Chief Complaint: 37wk OB Tube Heater Required: No Is patient in pain?: No Allergies amoxicillin Allergy (Intermediate, Verified 02/01/25 09:19) Rash vancomycin Allergy (Intermediate, Verified 02/01/25 09:19) Rash Penicillins Allergy (Mild, Verified 02/01/25 09:19) hives, breathing issues shellfish derived Allergy (Mild, Verified 02/01/25 09:19) hives Medications ???Medication ???Instructions ???Recorded ???Confirmed ???Type docosahexaenoic acid 200 mg 200 mg PO DAILY 04/01/24 02/01/25 History capsule ( DHA) ondansetron HCl 4 mg tablet 4 mg PO Q6H #30 tabs 07/20/2401/14 Rx magnesium 200 mg tablet 200 mg PO QDAY 12/01/24 02/01/25 H istory sertraline 50 mg tablet (Zoloft) 50 mg PO QDAY #30 tabs 12/03/24 Rx Last Menstrual Period: 05/23/24 : No Have you fallen in the past year?: No PFSH PFSH Medical History Spontaneous Herniated disc Endometritis following delivery Surgical History Previous back surgery Family History Uncle Colon cancer Liver cancer Grandfather Liver cancer Pancreatic cancer Uncle Diverticulitis Grandmother Heart disease Uncle Heart disease Social History adopted: No household members: spouse and children housing: house number of children: 1 current occupational status: employed current occupation: [employer] current occupational exposures/hazards: No pets and animals: [...] 3-4 times per week duration: 15-30 minutes/day agata/taoism: Tenriism seatbelt use: always do you feel safe at home: Yes 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 Date Name GA/Weeks Outcome Route Bth Weight Gen Labor Lgth Anesthesia Del Locatn Provider FOB 08/11/20 Janie 39 live - full term 7lbs 8.5oz Female epidural [facility] Dr. Quang Samaniego 03/15/24 4 spontaneous Delivery Date: 08/11/20 Last Updated by: Cherelle Reeder Induced HPI 37wk ob Details: HANNAH HENDRICKS is a 34 year old who presents for routine OB visit. OB Visit BALAJI Calculator Estimated Delivery Date Method Current WG Current Estimate 02/24/25 Ultrasound #1 36w 5d Other Estimates 02/27/25 LMP (Certain) 36w 2d Expected Delivery Route/Plan Labor Preferences- CB/BF [...] Glucose FHR FuHt Pres Dilation -???-???-???-???-???- ???-???-???-???-???-? ??- (more content not included)... Normal [facility] Amphibian Crewmember Office Visit Reporton 01-26-2025 Amphibian Crewmember Office Visit Report [facility] [address], [address] [place] [address] OFFICE VISIT Date of Service: 01/26/25 MR#: [id number] Acct: [id number] Name: HANNAH HENDRICKS Rep #: [id number] : 1990 Provider: Dr. Isabel feldman MD Age/Sex: 34/F Location: [facility] [place] Status: Signed Intake Vital Signs 12/01/24 08:19 01/11/25 09:59 01/26/25 09:21 Height 5 ft 6 in 5 ft 6 in 5 ft 6 in Weight: 213 lb 2 oz BMI 34.4 BP 112/74 Intake Visit Reasons: 36 WK OB Tube Heater Required: No Is patient in pain?: No [...] 1 current occupational status: employed current occupation: [employer] current occupational exposures/hazards: No pets and animals: [...] 3-4 times per week duration: 15-30 minutes/day agata/taoism: Tenriism seatbelt use: always do you feel safe at home: Yes 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 Date Name GA/Weeks Outcome Route Bth Weight Gen Labor Lgth Anesthesia Del Locatn Provider FOB 08/11/20 Janie 39 live - full term 7lbs 8.5oz Female epidural [facility] Dr. Quang Samaniego 03/15/24 4 [...] ???-???-???-???-???-? ??-???- (more content not included)... Normal [facility] Amphibian Crewmember Office Visit Reporton 01-11-2025 Amphibian Crewmember Office Visit Report [facility] [address], [address] [place] [address] OFFICE VISIT Date of Service: 01/11/25 MR#: [id number] Acct: [id number] Name: HANNAH HENDRICKS Rep #: [id number] : 1990 Provider: BART Kaur ams Age/Sex: 34/F Location: [facility] [place] Status: Signed Intake Vital Signs 12/01/24 08:19 01/11/25 09:59 01/11/25 09:59 Height 5 ft 6 in 5 ft 6 in 5 ft 6 in Weight: 215 lb 5 oz BMI 34.7 BP 118/75 Intake Visit Reasons: 34 WK OB Tube Heater Required: No Is patient in pain?: No [...] 4 mg PO Q6H #30 tabs 07/20/24 09/01/07 Rx magnesium 200 mg tablet 200 mg [...] 1 current occupational status: employed current occupation: [employer] current occupational exposures/hazards: No pets and animals: [...] 3-4 times per week duration: 15-30 minutes/day agata/taoism: Tenriism seatbelt use: always do you feel safe at home: Yes 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 Date Name GA/Weeks Outcome Route Bth Weight Infant Gen Labor Lgth Anesthesia Del Locatn Provider FOB 08/11/20 Janie 39 live - full term 7lbs 8.5oz Female epidural [facility] Dr. Quang Samaniego 03/15/24 4 [...] ???-???-???-???-???-? ??-???- (more content not included)... Normal [facility] - Chemistry and C hemistry - challengeOrdered By: Barbie Mitchell on 12-28-2024 Glucose Ql (U) Negative [facility] - UrinalysisOrder ed By: Barbie Mitchell on 12-28-2024 Protein Ql (U) Trace [facility] Amphibian Crewmember Office Visit Reporton 12-28-2024 Amphibian Crewmember Office Visit Report [facility] [address], [address] [place] [address] OFFICE VISIT Date of Service: 12/28/24 MR#: [id number] Acct: [id number] Name: ELADIOHANNAH TRUONG Rep #: [id number] : 1990 Provider: SHAWN wray Age/Sex: 34/F Location: [facility] [place] Status: Signed Intake Vital Signs 11/09/24 08:55 12/15/24 09:22 12/28/24 09:45 12/28/24 09:50 Height 5 ft 6 in 5 ft 6 in 5 ft 6 in 5 ft 6 in Weight: 210 lb BMI 33.9 BP 118/72 Intake Visit Reasons: 32wk ob Chief Complaint: 32 Week OB Tube Heater Required: No Is patient in pain?: No [...] 3-4 times per week duration: 15-30 minutes/day agata/taoism: Tenriism seatbelt use: always do you feel safe at home: Yes 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 Date Name GA/Weeks Outcome Route Bth Weight Gen Labor Lgth Anesthesia Del Locatn Provider FOB 08/11/20 Janie 39 live - full term 7lbs 8.5oz Female epidural [facility] Dr. Quang Samaniego 03/15/24 4 [...] Pres Dilatio (more content not included)... Normal [facility] - Chemistry and C hemistry - challengeOrdered By: Maryann Worthington on 12-15-2024 Glucose Ql (U) Negative [facility] - UrinalysisOrder ed By: Maryann Worthington on 12-15-2024 Protein Ql (U) Trace [facility] Amphibian Crewmember Office Visit Reporton 12-15-2024 Amphibian Crewmember Office Visit Report [facility] [address], [address] [place] [address] OFFICE VISIT Date of Service: 12/15/24 MR#: [id number] Acct: [id number] Name: HANNAH HENDRICKS Rep #: [id number] : 1990 Provider: Dr. Maryann Mcclain, Age/Sex: 34/F Location: [facility] [place] Status: Signed Intake Vital Signs 10/12/24 15:54 12/01/24 08:19 12/15/24 09:22 12/15/24 09:22 Height 5 ft 6 in 5 ft 6 in 5 ft 6 in 5 ft 6 in Weight: 205 lb 9 oz BMI 33.1 BP 106/69 Intake Visit Reasons: 30 wk ob Tube Heater Required: No Is patient in pain?: No [...] 1 current occupational status: employed current occupation: [employer] current occupational exposures/hazards: No pets and animals: [...] 3-4 times per week duration: 15-30 minutes/day agata/taoism: Tenriism seatbelt use: always do you feel safe at home: Yes 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 Date Name GA/Weeks Outcome Route Bth Weight Infant Gen Labor Lgth Anesthesia Del Locatn Provider FOB 08/11/20 Janie 39 live - full term 7lbs 8.5oz Female epidural [facility] Dr. Quang Samaniego 03/15/24 4 [...] Dilation -???-???-???-???- (more content not included)... Normal [facility] Absolute lymphocyte countOrd ered By: Ximena Mcghee on 12-01-2024 Lymphocytes Auto (Unsp spec) [#/Vol] 1.59 10*3/uL 0.83-4.51 [facility] Absolute neutrophil countOrd ered By: Ximena Mcghee on 12-01-2024 Neutrophils (Bld) [#/Vol] 5.5 10*3/uL 2.0-7.7 [facility] Automated lymphocyte count a s percentage of total leukocytesOrdered By: Ximena Mcghee on 12-01-2024 Lymphocytes/100 WBC Auto (Unsp spec) 19.6 % 19-41 [facility] Basophil percentageOrdered B y: Ximena Mcghee on 12-01-2024 Basophils/100 WBC (Bld) 0.4 % 0-1 [facility] [place] CBC W/Diff, Automatedon 11-13 Absolute Lymph 1.59 X10 3/uL Normal 0.83-4.51 [facility] Comment on above: Performed By: #### L 100.0100, L501.0250, L509.8002, L3890.6006 #### [facility] [address] [place], [address] Absolute Neut 5.5 X10 3/uL Normal 2.0-7.7 [facility] Comment on above: Performed By: #### L 100.0100, L501.0250, L509.8002, L3890.6006 #### [facility] [address] [place], [address] Basophils/100 WBC (Bld) 0.4 % Normal 0-1 [facility] Comment on above: Performed By: #### L 100.0100, L501.0250, L509.8002, L3890.6006 #### [facility] [address] [place], [address] Eosinophils/100 WBC (Bld) 8.1 % High 0-5 [facility] Comment on above: Performed By: #### L 100.0100, L501.0250, L509.8002, L3890.6006 #### [facility] [address] [place], [address] Erythrocyte distribution width (RBC) [Ratio] 12.1 % Normal 11.6-14.6 [facility] Comment on above: Performed By: #### L 100.0100, L501.0250, L509.8002, L3890.6006 #### [facility] [address] [place], [address] Hematocrit (Bld) [Volume fraction] 34.9 % Low 37-47 [facility] Comment on above: Performed By: #### L 100.0100, L501.0250, L509.8002, L3890.6006 #### [facility] [address] [place], [address] Hemoglobin (Bld) [Mass/Vol] 11.9 g/dL Low 12.0-15.0 [facility] Comment on above: Performed By: #### L 100.0100, L501.0250, L509.8002, L3890.6006 #### [facility] [address] [place], [address] IG% 0.400 Normal 0.0-0.9 [facility] Comment on above: Result Comment: IG% - Immature Granulocytes (promyelocytes, myelocytes and metamyelocytes) > 1% indicates that a LEFT SHIFT is Present. Performed By: #### L 100.0100, L501.0250, L509.8002, L3890.6006 #### [facility] [address] [place], [address] Lymphocytes/100 WBC (Bld) 19.6 % Normal 19-41 [facility] Comment on above: Performed By: #### L 100.0100, L501.0250, L509.8002, L3890.6006 #### [facility] [address] [place], [address] MCH (RBC) [Entitic mass] 33.1 pg High 27.0-32.0 [facility] Comment on above: Performed By: #### L 100.0100, L501.0250, L509.8002, L3890.6006 #### [facility] [address] [place], [address] MCHC (RBC) [Mass/Vol] 34.1 g/dL Normal 32-36 [facility] Comment on above: Performed By: #### L 100.0100, L501.0250, L509.8002, L3890.6006 #### [facility] [address] [place], [address] MCV (RBC) [Entitic vol] 97.2 fL Normal 81-99 [facility] Comment on above: Performed By: #### L 100.0100, L501.0250, L509.8002, L3890.6006 #### [facility] [address] [place], [address] Monocytes/100 WBC (Bld) 4.2 % Normal 0-10 [facility] Comment on above: Performed By: #### L 100.0100, L501.0250, L509.8002, L3890.6006 #### [facility] [address] [place], [address] Neutrophils/100 WBC (Bld) 67.3 % Normal 47-70 [facility] Comment on above: Performed By: #### L 100.0100, L501.0250, L509.8002, L3890.6006 #### [facility] [address] [place], [address] Nucleated RBC (Bld) [#/Vol] 0 10*3/uL Normal 0-5 [facility] Comment on above: Performed By: #### L 100.0100, L501.0250, L509.8002, L3890.6006 #### [facility] [address] [place], [address] Platelet mean volume (Bld) [Entitic vol] 10.0 fL Normal 6.2-12.0 [facility] Comment on above: Performed By: #### L 100.0100, L501.0250, L509.8002, L3890.6006 #### [facility] [address] [place], [address] Platelets (Bld) [#/Vol] 249 10*3/uL Normal 150-450 [facility] Comment on above: Performed By: #### L 100.0100, L501.0250, L509.8002, L3890.6006 #### [facility] [address] [place], [address] RBC (Bld) [#/Vol] 3.59 10*6/uL Low 4.2-5.4 [facility] Comment on above: Performed By: #### L 100.0100, L501.0250, L509.8002, L3890.6006 #### [facility] [address] [place], [address] RDW SD 43.2 fl Normal 35.1-43.9 [facility] Comment on above: Performed By: #### L 100.0100, L501.0250, L509.8002, L3890.6006 #### [facility] [address] [place], [address] WBC (Bld) [#/Vol] 8.1 10*3/uL Normal 4.4-11.0 [facility] Comment on above: Performed By: #### L 100.0100, L501.0250, L509.8002, L3890.6006 #### [facility] [address] [place], [address] Eosinophil percentageOrdered By: Ximena Mcghee on 12-01-2024 Eosinophils/100 WBC (Bld) 8.1 % High 0-5 [facility] Erythrocyte distribution wid th ratioOrdered By: Ximena Mcghee on 12-01-2024 Erythrocyte distribution width (RBC) [Ratio] 12.1 % 11.6-14.6 [facility] Erythrocyte distribution wid th standard deviationOrdered By: Ximena Mcghee on 12-01-2024 Erythrocyte distribution width (RBC) [Ratio] 43.2 fl 35.1-43.9 [facility] Glucose Challenge Gest 1H 50 kirsten 12-01-2024 GLU GEST 50g 1H 130 mg/dL Normal 70-140 [facility] Comment on above: Result Comment: AMENDED REPORT 12/01/24 1330 GLU GEST 50g 1H previously reported as: 133 mg/dL Performed By: #### L 100.0100, L501.0250, L509.8002, L3890.6006 #### [facility] [address] [facility] [place], [place], [id number] Glucose measurement at [address] [place] [address] post-dose gestational glucose tolerance testOrdered By: Ximena Mcghee on 12-01-2024 Glucose [Mass/Vol] 130 mg/dL 70-140 [facility] Comment on above: Previous reported re sult: 133 mg/dLEdited by: PRASHANT on 12/01/24:1330 AMENDED REPORT 12/01/24 1330 GLU GEST 50g 1H previously reported as: 133 mg/dL HIVon 12-01-2024 HIV Non-Reactive Normal Nonreactive [facility] Comment on above: Result Comment: Non- Reactive Reactive Repeatedly reactive samples must be confirmed according to CDC recommended confirmatory algorithms. The subresults for either HIVAG or AHIV can be used as an aid in the selection of the confirmation algorithm for reactive samples. Send out specimens with Reactive results to [facility] for confirmation. Order the HIV antibody detection and differentiation: lc#[id number] Performed By: #### L 100.0100, L501.0250, L509.8002, L3890.6006 #### [facility] [address] [place], [place], [address] Hematocrit Auto (Bld) [Volum e fraction]Ordered By: Ximena Mcghee on 12-01-2024 Hematocrit (Bld) [Volume fraction] 34.9 % Low 37-47 [facility] Hemoglobin measurementOrdere d By: Ximena Mcghee on 12-01-2024 Hemoglobin (Bld) [Mass/Vol] 11.9 g/dL Low 12.0-15.0 [facility] Immature granulocytes/100 WB C Auto (Bld)Ordered By: Ximena Mcghee on 12-01-2024 Immature granulocytes/100 WBC (Bld) 0.400 % 0.0-0.9 [facility] Comment on above: IG% - Immature Granu locytes (promyelocytes, myelocytes and metamyelocytes) > 1% indicates that a LEFT SHIFT is Present. Laboratory - Chemistry and C hemistry - challengeOrdered By: Barbie Mitchell on 12-01-2024 Glucose Ql (U) Negative [facility] - UrinalysisOrder ed By: Barbie Mitchell on 12-01-2024 Protein Ql (U) Negative [facility] MCV (mean corpuscular volume ) determinationOrdered By: Ximena Mcghee on 12-01-2024 MCV (RBC) [Entitic vol] 97.2 fL 81-99 [facility] Mean corpuscular hemoglobin (MCH) determinationOrdered By: Ximena Mcghee on 12-01-2024 MCH (RBC) [Entitic mass] 33.1 pg High 27.0-32.0 [facility] Mean corpuscular hemoglobin concentration (MCHC) determinationOrdered By: Ximena Mcghee on 12-01-2024 MCHC (RBC) [Mass/Vol] 34.1 g/dL 32-36 [facility] Mean platelet volume determi nationOrdered By: Ximena Mcghee on 12-01-2024 Platelet mean volume (Bld) [Entitic vol] 10.0 fL 6.2-12.0 [facility] Monocyte percentageOrdered B y: Ximena Mcghee on 12-01-2024 Monocytes/100 WBC (Bld) 4.2 % 0-10 [facility] Neutrophil percentageOrdered By: Ximena Mcghee on 12-01-2024 Neutrophils/100 WBC (Bld) 67.3 % 47-70 [facility] No Panel InformationOrdered By: Ximena Mcghee on 12-01-2024 HIV (1&2) Antibody Non-Reactive Nonreactive [facility] Comment on above: Non-ReactiveReactive Repeatedly reactive samples must be confirmed according to CDC recommended confirmatory algorithms. The subresults for either HIVAG or AHIV can be used as an aid in the selection of the confirmation algorithm for reactive samples.Send out specimens with Reactive results to [facility] for confirmation.Order the HIV antibody detection and differentiation: #[id number] Nucleated red blood cell per centageOrdered By: Ximena Mcghee on 12-01-2024 Nucleated RBC/100 WBC (Bld) [Ratio] 0 % 0-5 [facility] Amphibian Crewmember Office Visit Reporton 12-01-2024 Amphibian Crewmember Office Visit Report [facility], [address] [place] [address] OFFICE VISIT Date of Service: 12/01/24 MR#: [id number] Acct: [id number] Name: HANNAH HENDRICKS Rep #: [id number] : 1990 Provider: SHAWN wray Age/Sex: 34/F Location: [facility] [place] Status: Signed Intake Vital Signs 09/14/24 08:59 11/09/24 08:55 12/01/24 08:19 Height 5 ft 6 in 5 ft 6 in 5 ft 6 in Weight: 206 lb 4 oz BMI 33.3 BP 112/70 Intake Visit Reasons: 28wk ob/glucose Chief Complaint: 28 Week OB/Glucose Tube Heater Required: No Is patient in pain?: No [...] Zika virus screening: Negative : Yes PFSH PFS Medical History Spontaneous Herniated disc Endometritis following delivery Surgical History Previous back surgery Family History Uncle Colon cancer Liver cancer Grandfather Liver cancer Pancreatic cancer Uncle Diverticulitis Grandmother Heart disease Uncle Heart disease Social History adopted: No household members: spouse and children housing: house number of children: 1 current occupational status: employed current occupation: [employer] current occupational exposures/hazards: No pets and animals: [...] 3-4 times per week duration: 15-30 minutes/day agata/taoism: Tenriism seatbelt use: always do you feel safe at home: Yes 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 Date Name GA/Weeks Outcome Route Bth Weight Infant Gen Labor Lgth Anesthesia Del Locatn Provider FOB 08/11/20 Janie 39 live - full term 7lbs 8.5oz Female epidural [facility] Dr. Quang Samaniego 03/15/24 4 [...] Visit Note (more content not included)... Normal [facility] Platelet countOrdered By: Bernardo Mcghee on 12-01-2024 Platelets (Bld) [#/Vol] 249 10*3/uL 150-450 [facility] RBC Auto (Bld) [#/Vol]Ordere d By: Ximena Mcghee on 12-01-2024 RBC (Bld) [#/Vol] 3.59 10*6/uL Low 4.2-5.4 [facility] Syphilis Antibodieson 2024 Syphilis Abs Non-Reactive Normal Nonreactive [facility] Comment on above: Performed By: #### L 100.0100, L501.0250, L509.8002, L3890.6006 #### [facility] [address] [place], [address] White blood cell (WBC) count Ordered By: Ximena Mcghee on 12-01-2024 WBC (Bld) [#/Vol] 8.1 10*3/uL 4.4-11.0 [facility] - Chemistry and C hemistry - challengeOrdered By: Ximena Mcghee on 11-09-2024 Glucose Ql (U) Negative [facility] - UrinalysisOrder ed By: Ximena Mcghee on 11-09-2024 Protein Ql (U) Trace [facility] Amphibian Crewmember Office Visit Reporton 11-09-2024 Amphibian Crewmember Office Visit Report [facility], [address] [place] [address] OFFICE VISIT Date of Service: 11/09/24 MR#: [id number] Acct: [id number] Name: HANNAH HENDRICKS Rep #: [id number] : 1990 Provider: BART aKur ams Age/Sex: 34/F Location: [facility] [place] Status: Signed Intake Vital Signs 08/17/24 08:32 10/12/24 15:54 11/09/24 08:55 11/09/24 08:55 Height 5 ft 6 in 5 ft 6 in 5 ft 6 in 5 ft 6 in Weight: 202 lb 6 oz BMI 32.6 BP 104/71 Intake Visit Reasons: 25 wk ob Chief Complaint: 25wk OB Tube Heater Required: No Is patient in pain?: No [...] 1 current occupational status: employed current occupation: [employer] current occupational exposures/hazards: No pets and animals: [...] 3-4 times per week duration: 15-30 minutes/day agata/taoism: Tenriism seatbelt use: always do you feel safe at home: Yes 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 Date Name GA/Weeks Outcome Route Bth Weight Infant Gen Labor Lgth Anesthesia Del Locatn Provider FOB 08/11/20 Janie 39 live - full term 7lbs 8.5oz Female epidural [facility] Dr. Quang Samaniego 03/15/24 4 spontaneous Delivery Date: 08/11/20 Last Updated by: Cherelle Reeder Induced HPI 25 wk ob Details: HANNAH HENDIRCKS is a 34 year old who presents [...] 170 -? (more content not included)... Normal [facility] - Chemistry and C hemistry - challengeOrdered By: Isabel Isidronitin on 10-12-2024 Glucose Ql (U) Negative [facility] - UrinalysisOrder ed By: Isabel Marino on 10-12-2024 Protein Ql (U) Negative [facility] Amphibian Crewmember Office Visit Reporton 10-12-2024 Amphibian Crewmember Office Visit Report [facility] [address], [address] [place] [address] OFFICE VISIT Date of Service: 10/12/24 MR#: [id number] Acct: [id number] Name: HANNAH HENDRICKS Rep #: [id number] : 1990 Provider: Dr. Isabel feldman MD Age/Sex: 34/F Location: [facility] [place] Status: Signed Intake Vital Signs 07/20/24 13:59 09/14/24 08:59 10/12/24 15:54 Height 5 ft 6 in 5 ft 6 in 5 ft 6 in Weight: 195 lb 6 oz BMI 31.5 BP 119/75 Intake Visit Reasons: 21wk ob Tube Heater Required: No Is patient in pain?: No [...] 4 mg PO Q6H #30 tabs 07/20/24 06/ Rx Last Menstrual Period: 05/23/24 Zika: Zika [...] 1 current occupational status: employed current occupation: [employer] current occupational exposures/hazards: No pets and animals: [...] 3-4 times per week duration: 15-30 minutes/day agata/taoism: Tenriism seatbelt use: always do you feel safe at home: Yes 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 Date Name GA/Weeks Outcome Route Bth Weight Infant Gen Labor Lgth Anesthesia Del Locatn Provider FOB 08/11/20 Janie 39 live - full term 7lbs 8.5oz Female epidural [facility] Dr. Quang Samaniego 03/15/24 4 [...] ??-???- 170 (more content not included)... Normal [facility] [id number] 10-10-2024 [facility] Misc. COMMENT Normal . [facility] Comment on above: Order Comment: [id number] 1AFP SERUM RT Result Comment: Test Ordered: [id number] AFP, Serum, Open Spina Bifida Results [facility] Reference Range: . Test Results: TG Reference Range: . Please refer to the following specimen for additional lab results. Please refer to [phone] for results. Gest. Age on Collection Date [facility] Reference Range: . Gestat. Age Based On [facility] Reference Range: . Maternal Age At BALAJI [facility] Reference Range: . Race [facility] Reference Range: . Weight [facility] Reference Range: . Insulin Dep Diabetes [facility] Reference Range: . Multiple Gestation [facility] Reference Range: . AFP Value NOLAB Reference Range: . Test not performed AFP MoM [facility] Reference Range: . OSBR Risk 1 IN [facility] Reference Range: . Interpretation [facility] Reference Range: . Comment: [facility] Reference Range: . Tracking [facility] Reference Range: . Performed at: [facility] [employer] [id number] Broadcast Designer: Norm Gonzáles PhD, Phone: [phone] Performed at: [facility] [employer] [id number] Broadcast Designer: Zelalem Ernst [facility], Phone: [phone] Performed By: #### L 100.0100, L501.0250, L509.8002, L3890.6006 #### [facility] [address] [place] [address], [id number] Laboratory - Chemistry and C hemistry - challengeOrdered By: Ximena Mcghee on 09-14-2024 Glucose Ql (U) Negative [facility] - UrinalysisOrder ed By: Ximena Mcghee on 09-14-2024 Protein Ql (U) Negative [facility] Amphibian Crewmember Office Visit Reporton 09-14-2024 Amphibian Crewmember Office Visit Report [facility] [address], [address] [place] [address] OFFICE VISIT Date of Service: 09/14/24 MR#: [id number] Acct: [id number] Name: HANNAH HENDRICKS Rep #: [id number] : 1990 Provider: BART Kaur ams Age/Sex: 34/F Location: [facility] [place] Status: Signed Intake Vital Signs 07/20/24 13:59 08/17/24 08:32 09/14/24 08:59 Height 5 ft 6 in 5 ft 6 in 5 ft 6 in Weight: 190 lb 2 oz BMI 30.7 BP 106/71 Intake Visit Reasons: 17wk ob Chief Complaint: 17wk OB Tube Heater Required: No Is patient in pain?: No [...] 4 mg PO Q6H #30 tabs 07/20/24 0606/09 Rx Last Menstrual Period: 05/23/24 : No [...] current occupational status: employed current occupation: [employer] current occupational exposures/hazards: No pets and animals: [...] 3-4 times per week duration: 15-30 minutes/day agata/taoism: Tenriism seatbelt use: always do you feel safe at home: Yes 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 Date Name GA/Weeks Outcome Route Bth Weight Infant Gen Labor Lgth Anesthesia Del Locatn Provider FOB 08/11/20 Janie 39 live - full term 7lbs 8.5oz Female epidural [facility] Dr. Quang Samaniego 03/15/24 4 [...] -???-???-???-???-???- ???-???-?? (more content not included)... Normal [facility] - Chemistry and C hemistry - challengeOrdered By: Barbie Mitchell on 08-17-2024 Glucose Ql (U) Negative [facility] - UrinalysisOrder ed By: Barbie Mitchell on 08-17-2024 Protein Ql (U) Trace [facility] Amphibian Crewmember Office Visit Reporton 08-17-2024 Amphibian Crewmember Office Visit Report [facility] [address], [address] [place] [address] OFFICE VISIT Date of Service: 08/17/24 MR#: [id number] Acct: [id number] Name: HANNAH HENDRICKS Rep #: [id number] : 1990 Provider: SHAWN wray Age/Sex: 34/F Location: [facility] [place] Status: Signed Intake Vital Signs 04/14/24 14:22 08/05/24 09:52 08/17/24 08:32 Height 5 ft 6 in 5 ft 6 in 5 ft 6 in Weight: 184 lb 8 oz BMI 29.7 BP 104/68 Intake Visit Reasons: 13wk ob Tube Heater Required: No Is patient in pain?: No [...] tablet 4 mg PO Q6H #30 tabs 07/20/2409/06 Rx Last Menstrual Period: 05/23/24 Zika: Zika [...] current occupational status: employed current occupation: [employer] current occupational exposures/hazards: No pets and animals: [...] 3-4 times per week duration: 15-30 minutes/day agata/taoism: Tenriism seatbelt use: always do you feel safe at home: Yes 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 Date Name GA/Weeks Outcome Route Bth Weight Infant Gen Labor Lgth Anesthesia Del Locatn Provider FOB 08/11/20 Janie 39 live - full term 7lbs 8.5oz Female epidural [facility] Dr. Quang Samaniego 03/15/24 4 spontaneous Delivery Date: 08/11/20 Last Updated by: Cherelle Reeder Induced HPI 13wk ob Details: HANNAH HENDRICKS [...] ???-???-???-???-???-? ??-???- (more content not included)... Normal [facility] - Chemistry and C hemistry - challengeOrdered By: Barbie Mitchell on 08-05-2024 Glucose Ql (U) Negative [facility] - UrinalysisOrder ed By: Barbie Mitchell on 08-05-2024 Protein Ql (U) Negative [facility] Amphibian Crewmember Office Visit Reporton 08-05-2024 Amphibian Crewmember Office Visit Report [facility] [address], [address] [place] [address] OFFICE VISIT Date of Service: 08/05/24 MR#: [id number] Acct: [id number] Name: HANNAH HENDRICKS Rep #: [id number] : 1990 Provider: SHAWN wray Age/Sex: 34/F Location: [facility] [place] Status: Signed Intake Vital Signs 07/20/24 13:59 08/05/24 09:52 Height 5 ft 6 in 5 ft 6 in Weight: 183 lb BMI 29.5 BP 126/78 H Intake Visit Reasons: Heart tone check Chief Complaint: Heart tone check Tube Heater Required: No Is patient in pain?: No [...] 4 mg PO Q6H #30 tabs 07/20/24 042 07/07 Rx Last Menstrual Period: 05/23/24 Zika: Zika [...] 1 current occupational status: employed current occupation: [employer] current occupational exposures/hazards: No pets and animals: [...] 3-4 times per week duration: 15-30 minutes/day agata/taoism: Tenriism seatbelt use: always do you feel safe at home: Yes 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 Date Name GA/Weeks Outcome Route Bth Weight Gen Labor Lgth Anesthesia Del Locatn Provider FOB 08/11/20 Janie 39 live - full term 7lbs 8.5oz Female epidural [facility] Dr. Quang Samaniego 03/15/24 4 [...] -???-???-???-???-???- ???-??? (more content not included)... Normal [facility] Absolute lymphocyte countOrd ered By: Maryann Bradfordthu on 07-31-2024 Lymphocytes Auto (Unsp spec) [#/Vol] 2.10 10*3/uL 0.83-4.51 [facility] Absolute neutrophil countOrd ered By: Maryann Bradfordthu on 07-31-2024 Neutrophils (Bld) [#/Vol] 3.9 10*3/uL 2.0-7.7 [facility] Automated lymphocyte count a s percentage of total leukocytesOrdered By: Maryann Bradfordthu on 07-31-2024 Lymphocytes/100 WBC Auto (Unsp spec) 29.6 % 19-41 [facility] Basophil percentageOrdered B y: Maryann Bradfordthu on 07-31-2024 Basophils/100 WBC (Bld) 0.4 % 0-1 [facility] CBC W/Diff, Automatedon 07-14 Absolute Lymph 2.10 X10 3/uL Normal 0.83-4.51 [facility] Comment on above: Performed By: #### L 509.4006, BTS, L3890.6006, L3890.6102, L900.0098, L509.8002, L3890.6301, L100.0100 #### [facility] [address] [place], [address] Absolute Neut 3.9 X10 3/uL Normal 2.0-7.7 [facility] Comment on above: Performed By: #### L 509.4006, BTS, L3890.6006, L3890.6102, L900.0098, L509.8002, L3890.6301, L100.0100 #### [facility] [address] [place], [address] Basophils/100 WBC (Bld) 0.4 % Normal 0-1 [facility] Comment on above: Performed By: #### L 509.4006, BTS, L3890.6006, L3890.6102, L900.0098, L509.8002, L3890.6301, L100.0100 #### [facility] [address] [place], [address] Eosinophils/100 WBC (Bld) 8.3 % High 0-5 [facility] Comment on above: Performed By: #### L 509.4006, BTS, L3890.6006, L3890.6102, L900.0098, L509.8002, L3890.6301, L100.0100 #### [facility] [address] [facility] [place], [address] Erythrocyte distribution width (RBC) [Ratio] 11.6 % Normal 11.6-14.6 [facility] Comment on above: Performed By: #### L 509.4006, BTS, L3890.6006, L3890.6102, L900.0098, L509.8002, L3890.6301, L100.0100 #### [facility] [address] [facility] [place], [address] Hematocrit (Bld) [Volume fraction] 37.1 % Normal 37-47 [facility] Comment on above: Performed By: #### L 509.4006, BTS, L3890.6006, L3890.6102, L900.0098, L509.8002, L3890.6301, L100.0100 #### [facility] [address] [place], [address] Hemoglobin (Bld) [Mass/Vol] 12.8 g/dL Normal 12.0-15.0 [facility] Comment on above: Performed By: #### L 509.4006, BTS, L3890.6006, L3890.6102, L900.0098, L509.8002, L3890.6301, L100.0100 #### [facility] [address] [place], [address] IG% 0.300 Normal 0.0-0.9 [facility] Comment on above: Result Comment: IG% - Immature Granulocytes (promyelocytes, myelocytes and metamyelocytes) > 1% indicates that a LEFT SHIFT is Present. Performed By: #### L 509.4006, BTS, L3890.6006, L3890.6102, L900.0098, L509.8002, L3890.6301, L100.0100 #### [facility] [address] [place], [address] Lymphocytes/100 WBC (Bld) 29.6 % Normal 19-41 [facility] Comment on above: Performed By: #### L 509.4006, BTS, L3890.6006, L3890.6102, L900.0098, L509.8002, L3890.6301, L100.0100 #### [facility] [address] [place], [address] MCH (RBC) [Entitic mass] 32.9 pg High 27.0-32.0 [facility] Comment on above: Performed By: #### L 509.4006, BTS, L3890.6006, L3890.6102, L900.0098, L509.8002, L3890.6301, L100.0100 #### [facility] [address] [place], [address] MCHC (RBC) [Mass/Vol] 34.5 g/dL Normal 32-36 [facility] Comment on above: Performed By: #### L 509.4006, BTS, L3890.6006, L3890.6102, L900.0098, L509.8002, L3890.6301, L100.0100 #### [facility] [address] [place], [address] MCV (RBC) [Entitic vol] 95.4 fL Normal 81-99 [facility] Comment on above: Performed By: #### L 509.4006, BTS, L3890.6006, L3890.6102, L900.0098, L509.8002, L3890.6301, L100.0100 #### [facility] [address] [place], [address] Monocytes/100 WBC (Bld) 6.2 % Normal 0-10 [facility] Comment on above: Performed By: #### L 509.4006, BTS, L3890.6006, L3890.6102, L900.0098, L509.8002, L3890.6301, L100.0100 #### [facility] [address] [place], [address] Neutrophils/100 WBC (Bld) 55.2 % Normal 47-70 [facility] Comment on above: Performed By: #### L 509.4006, BTS, L3890.6006, L3890.6102, L900.0098, L509.8002, L3890.6301, L100.0100 #### [facility] [address] [facility] [place], [address] Nucleated RBC (Bld) [#/Vol] 0 10*3/uL Normal 0-5 [facility] Comment on above: Performed By: #### L 509.4006, BTS, L3890.6006, L3890.6102, L900.0098, L509.8002, L3890.6301, L100.0100 #### [facility] [address] [place], [address] Platelet mean volume (Bld) [Entitic vol] 9.5 fL Normal 6.2-12.0 [facility] Comment on above: Performed By: #### L 509.4006, BTS, L3890.6006, L3890.6102, L900.0098, L509.8002, L3890.6301, L100.0100 #### [facility] [address] [place], [address] Platelets (Bld) [#/Vol] 277 10*3/uL Normal 150-450 [facility] Comment on above: Performed By: #### L 509.4006, BTS, L3890.6006, L3890.6102, L900.0098, L509.8002, L3890.6301, L100.0100 #### [facility] [address] [place], [address] RBC (Bld) [#/Vol] 3.89 10*6/uL Low 4.2-5.4 [facility] Comment on above: Performed By: #### L 509.4006, BTS, L3890.6006, L3890.6102, L900.0098, L509.8002, L3890.6301, L100.0100 #### [facility] [address] [place], [address] RDW SD 40.3 fl Normal 35.1-43.9 [facility] Comment on above: Performed By: #### L 509.4006, BTS, L3890.6006, L3890.6102, L900.0098, L509.8002, L3890.6301, L100.0100 #### [facility] [address] [place], [address] WBC (Bld) [#/Vol] 7.1 10*3/uL Normal 4.4-11.0 [facility] Comment on above: Performed By: #### L 509.4006, BTS, L3890.6006, L3890.6102, L900.0098, L509.8002, L3890.6301, L100.0100 #### [facility] [address] [place], [place], [address] Eosinophil percentageOrdered By: Maryann Elin on 07-31-2024 Eosinophils/100 WBC (Bld) 8.3 % High 0-5 [facility] Erythrocyte distribution wid th ratioOrdered By: Maryann Elin on 07-31-2024 Erythrocyte distribution width (RBC) [Ratio] 11.6 % 11.6-14.6 [facility] Erythrocyte distribution wid th standard deviationOrdered By: Maryann Elin on 07-31-2024 Erythrocyte distribution width (RBC) [Ratio] 40.3 fl 35.1-43.9 [facility] HIVon 07-31-2024 HIV Non-Reactive Normal Nonreactive [facility] Comment on above: Result Comment: Non- Reactive Reactive Repeatedly reactive samples must be confirmed according to CDC recommended confirmatory algorithms. The subresults for either HIVAG or AHIV can be used as an aid in the selection of the confirmation algorithm for reactive samples. Send out specimens with Reactive results to [facility] for confirmation. Order the HIV antibody detection and differentiation: lc#[id number] Performed By: #### L 509.4006, BTS, L3890.6006, L3890.6102, L900.0098, L509.8002, L3890.6301, L100.0100 #### [facility] [address] [place], [place], [address] Hematocrit Auto (Bld) [Volum e fraction]Ordered By: Maryann Worthington on 07-31-2024 Hematocrit (Bld) [Volume fraction] 37.1 % 37-47 [facility] Hemoglobin measurementOrdere d By: Maryann Worthington on 07-31-2024 Hemoglobin (Bld) [Mass/Vol] 12.8 g/dL 12.0-15.0 [facility] Hepatitis C Antibodyon 07-31 Hepatitis C Ab Non-Reactive Normal Nonreactive [facility] Comment on above: Result Comment: Reac tive: Presumptive evidence of antibodies to HCV. Follow CDC recommendations for supplemental testing. Non-Reactive: Antibodies to HCV were not detected; does not exclude the possibility of exposure to HCV Reactive Results are presumptive evidence of antibodies to HCV. Follow CDC recommendations for supplemental testing. Order confirmation testing: HCV Quant by PCR testing - HCVPCR #[id number] Non Reactive: < 0.8 Equivocal: >/= 0.8 to < 1.0 Reactive: >/= 1.0 The CDC requires that a reactive/equivocal HCV antibody result be sent out for confirmation. HCV Quant by PCR testing. Performed By: #### L 100.0100, L501.0250, L509.8002, L3890.6006 #### [facility] [address] [place], [address] Immature granulocytes/100 WB C Auto (Bld)Ordered By: Maryann Worthington on 07-31-2024 Immature granulocytes/100 WBC (Bld) 0.300 % 0.0-0.9 [facility] Comment on above: IG% - Immature Granu locytes (promyelocytes, myelocytes and metamyelocytes) > 1% indicates that a LEFT SHIFT is Present. L3890.6102on 07-31-2024 HEP B Surf Ag Non-Reactive Normal Nonreactive [facility] Comment on above: Result Comment: Reac tive: Presumptive evidence of HBV. Repeatedly reactive samples must be confirmed using a neutralization test (ElecTriangulates HBsAg Confirmatory Test) Non-Reactive: HBsAg not detected; does not exclude the possibility of exposure to HBV Performed By: #### L 100.0100, L501.0250, L509.8002, L3890.6006 #### [facility] [address] [facility] [place], [address] L509.4006on 07-31-2024 Rubella IgG REAC Normal Nonreactive [facility] Comment on above: Result Comment: Anti body Result: Interpretation Non-Reactive: Non-Immune Reactive: Immune The following results were obtained with the Elecsys Rubella IgG assay. Results from assays of other manufacturers cannot be used interchangeably. Performed By: #### L 509.4006, BTS, L3890.6006, L3890.6102, L900.0098, L509.8002, L3890.6301, L100.0100 #### [facility] [address] [place], [place], [id number] Laboratory - Microbiology an d Antimicrobial susceptibilityOrdered By: Maryann Worthington on 07-31-2024 HBV surface Ag Ql (S) Non-Reactive Nonreactive [facility] Comment on above: Reactive: Presumptiv e evidence of HBV. Repeatedly reactive samples must be confirmed using a neutralization test (ElecTriangulates HBsAg Confirmatory Test)Non-Reactive: HBsAg not detected; does not exclude the possibility of exposure to HBV MCV (mean corpuscular volume ) determinationOrdered By: Maryann Worthington on 07-31-2024 MCV (RBC) [Entitic vol] 95.4 fL 81-99 [facility] Mean corpuscular hemoglobin (MCH) determinationOrdered By: Maryann Worthington on 07-31-2024 MCH (RBC) [Entitic mass] 32.9 pg High 27.0-32.0 [facility] Mean corpuscular hemoglobin concentration (MCHC) determinationOrdered By: Maryann Worthington on 07-31-2024 MCHC (RBC) [Mass/Vol] 34.5 g/dL 32-36 [facility] Mean platelet volume determi nationOrdered By: Maryann Worthington on 07-31-2024 Platelet mean volume (Bld) [Entitic vol] 9.5 fL 6.2-12.0 [facility] Monocyte percentageOrdered B y: Maryann Worthington on 07-31-2024 Monocytes/100 WBC (Bld) 6.2 % 0-10 [facility] [place] NATERAon 07-31-2024 NATURA SEE SCANNED REPORT Normal [facility] Comment on above: Performed By: #### L 509.4006, BTS, L3890.6006, L3890.6102, L900.0098, L509.8002, L3890.6301, L100.0100 #### [facility] [address] [place], [address] Neutrophil percentageOrdered By: Maryann Worthington on 07-31-2024 Neutrophils/100 WBC (Bld) 55.2 % 47-70 [facility] No Panel InformationOrdered By: Maryann Worthington on 07-31-2024 HIV (1&2) Antibody Non-Reactive Nonreactive [facility] Comment on above: Non-ReactiveReactive Repeatedly reactive samples must be confirmed according to CDC recommended confirmatory algorithms. The subresults for either HIVAG or AHIV can be used as an aid in the selection of the confirmation algorithm for reactive samples.Send out specimens with Reactive results to [facility] for confirmation.Order the HIV antibody detection and differentiation: #[id number] Nucleated red blood cell per centageOrdered By: Maryann Worthington on 07-31-2024 Nucleated RBC/100 WBC (Bld) [Ratio] 0 % 0-5 [facility] Platelet countOrdered By: Blas Worthington on 07-31-2024 Platelets (Bld) [#/Vol] 277 10*3/uL 150-450 [facility] RBC Auto (Bld) [#/Vol]Ordere d By: Maryann Worthington on 07-31-2024 RBC (Bld) [#/Vol] 3.89 10*6/uL Low 4.2-5.4 [facility] Syphilis Antibodieson 2024 Syphilis Abs Non-Reactive Normal Nonreactive [facility] Comment on above: Performed By: #### L 509.4006, BTS, L3890.6006, L3890.6102, L900.0098, L509.8002, L3890.6301, L100.0100 #### [facility] [address] [place], [place], [id number] Type AND Screenon 07-31-2024 ABO and Rh group Nom (Bld) Blood group A Rh(D) positive Normal [facility] Comment on above: Order Comment: PN Performed By: #### L 100.0100, L501.0250, L509.8002, L3890.6006 #### [facility] [address] [place], [place], [id number] White blood cell (WBC) count Ordered By: Maryann Worthington on 07-31-2024 WBC (Bld) [#/Vol] 7.1 10*3/uL 4.4-11.0 [facility] Chlamydia/GC YANDY aptimaon CHLAMY,NUC ACID Negative Normal Negative [facility] Comment on above: Performed By: #### L 100.0100, L501.0250, L509.8002, L3890.6006 #### [facility] [address] [place], [place], [address] GC BY NUC ACID Negative Normal Negative [facility] Comment on above: Result Comment: Perf ormed at: =G - [facility] [id number] Broadcast Designer: Radha Alfaro MD, Phone: [phone] Performed By: #### L 100.0100, L501.0250, L509.8002, L3890.6006 #### [facility] [address] [place], [address] Urine Cultureon 07-23-2024 URC Presumptive C albicans [place] Count <1000 Mixed Gram Positive Organisms Mixed Gram Positive Organisms MIXC Mixed contaminants. Submit a new specimen if indicated. Normal [facility] Comment on above: Performed By: #### L 100.0100, L501.0250, L509.8002, L3890.6006 #### [facility] [address] [place], [address] C. trachomatis rRNA YANDY+prob e Ql (Unsp spec)Ordered By: Maryann Worthington on 07-20-2024 Chlamydia DNA (YANDY) Negative Negative [facility] Chlamydia trachomatis rRNA d etection by probe and target amplification methodOrdered By: Maryann Worthington on 07-20-2024 C. trachomatis rRNA YANDY+probe Ql (Unsp spec) Negative Negative [facility] Neisseria gonorrhoeae nuclei c acid detection by amplified probe techniqueOrdered By: Maryann Worthington on 07-20-2024 N. gonorrhoeae DNA YANDY+probe Ql (Unsp spec) Negative Negative [facility] Comment on above: Performed at: =G - [address] [place] [id number] Director: Radha Alfaro MD, Phone: [phone] Amphibian Crewmember Office Visit Reporton 07-20-2024 Amphibian Crewmember Office Visit Report [facility] [address] [place] [address], [address] [place] [address] OFFICE VISIT Date of Service: 07/20/24 MR#: [id number] Acct: [id number] Name: HANNAH HENDRICKS Rep #: [id number] : 1990 Provider: Dr. Maryann Mcclain DO Age/Sex: 34/F Location: [facility] [place] Status: Signed Intake Vital Signs 04/14/24 14:22 07/20/24 13:58 07/20/24 13:59 Height 5 ft 6 in 5 ft 6 in 5 ft 6 in Weight: 182 lb 6 oz BMI 29.4 BP 117/79 Intake Visit Reasons: NOB LMP 2 Tube Heater Required: No Is patient in pain?: No [...] current occupational status: employed current occupation: [employer] current occupational exposures/hazards: No pets and animals: [...] 3-4 times per week duration: 15-30 minutes/day agata/taoism: Tenriism seatbelt use: always do you feel safe at home: Yes 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 Date Name GA/Weeks Outcome Route Bth Weight Infant Gen Labor Lgth Anesthesia Del Locatn Provider FOB 08/11/20 Janie 39 live - full term 7lbs 8.5oz Female epidural [facility] Dr. Quang Samaniego 03/15/24 4 [...] 117/79 -???-???-???-? (more content not included)... Normal [facility] Urine cultureOrdered By: Leah Worthington on 07-20-2024 Bacteria identified Cx Nom (U) Presumptive C albicans Abnormal [facility] Bacteria identified Cx Nom (U) Positive Abnormal [facility] Transvaginal w/Preg USon Transvaginal w/Preg [facility] [address] [place], [place] [id number] Transvaginal w/Preg MR#: [id number] Acct: [id number] Name: HANNAH HENDRICKS Rep #: [id number] : 1990 F 34 From: Hayde Yuan MD PCP: Dr. Thomas Salinas MD Status: REG CLI Study: Transvaginal w/Preg US Date of Exam: 07/02/24 Exam# [id number] Ordering Dr: Maryann Bajwa DO PROCEDURE: TRANSVAGINAL [...] 3. Additional description as above. Reading Location: [facility] CC: Dr. Maryann Bajwa DO; Dr. Thomas Salinas MD Gas Pit Worker: Signed Normal [facility] HCG ( test) QlOrder ed By: Maryann Worthington on 06-27-2024 Human Chorionic Gonadotropin, Quant 5354 mIU/mL High <9 [facility] Comment on above: Gestational Age0.2-1 Week: 5-50 mIU/mL1-2 Weeks: 50-500 mIU/mL2-3 Weeks: 100-5000 mIU/mL3-4 Weeks: 500-10,000 mIU/mL4-5 Weeks:1000-50,000 mIU/mL5-6 Weeks: 10,000-100,000 mIU/mL6-8 Weeks: 15,000-200,000 mIU/mL2-3 Months:10,000-100,000 mIU/mL Serum human chorionic gonado tropin detection for pregnancyOrdered By: Maryann Worthington on 06-27-2024 HCG ( test) Ql 5354 mIU/mL High <9 [facility] Comment on above: Gestational Age0.2-1 Week: 5-50 mIU/mL1-2 Weeks: 50-500 mIU/mL2-3 Weeks: 100-5000 mIU/mL3-4 Weeks: 500-10,000 mIU/mL4-5 Weeks:1000-50,000 mIU/mL5-6 Weeks: 10,000-100,000 mIU/mL6-8 Weeks: 15,000-200,000 mIU/mL2-3 Months:10,000-100,000 mIU/mL hCG Titer Quant., Serumon HCG QUANT. 5354 mIU/mL High <9 non-preg [facility] Comment on above: Result Comment: Gest ational Age 0.2-1 Week: 5-50 mIU/mL 1-2 Weeks: 50-500 mIU/mL 2-3 Weeks: 100-5000 mIU/mL 3-4 Weeks: 500-10,000 mIU/mL 4-5 Weeks:1000-50,000 mIU/mL 5-6 Weeks: 10,000-100,000 mIU/mL 6-8 Weeks: 15,000-200,000 mIU/mL 2-3 Months:10,000-100,000 mIU/mL Performed By: #### L 100.0100, L501.0250, L509.8002, L3890.6006 #### [facility] [address] [place], [place], [id number] HCG ( test) QlOrder ed By: Maryann Worthington on 06-25-2024 Human Chorionic Gonadotropin, Quant 2419 mIU/mL High <9 [facility] Comment on above: Gestational Age0.2-1 Week: 5-50 mIU/mL1-2 Weeks: 50-500 mIU/mL2-3 Weeks: 100-5000 mIU/mL3-4 Weeks: 500-10,000 mIU/mL4-5 Weeks:1000-50,000 mIU/mL5-6 Weeks: 10,000-100,000 mIU/mL6-8 Weeks: 15,000-200,000 mIU/mL2-3 Months:10,000-100,000 mIU/mL Serum human chorionic gonado tropin detection for pregnancyOrdered By: Maryann Worthington on 06-25-2024 HCG ( test) Ql 2419 mIU/mL High <9 [facility] Comment on above: Gestational Age0.2-1 Week: 5-50 mIU/mL1-2 Weeks: 50-500 mIU/mL2-3 Weeks: 100-5000 mIU/mL3-4 Weeks: 500-10,000 mIU/mL4-5 Weeks:1000-50,000 mIU/mL5-6 Weeks: 10,000-100,000 mIU/mL6-8 Weeks: 15,000-200,000 mIU/mL2-3 Months:10,000-100,000 mIU/mL Transvaginal w/Preg USon Transvaginal w/Preg US [facility] [address] [place], [place] [address] Transvaginal w/Preg US MR#: [id number] Acct: [id number] Name: HANNAH HENDRICKS Rep #: [id number] : 1990 F 34 From: Hayde Yuan MD PCP: Dr. Thomas Salinas MD Status: REG CLI Study: Transvaginal w/Preg US Date of Exam: 06/25/24 Exam# [id number] Ordering Dr: Maryann Bajwa DO PROCEDURE: TRANSVAGINAL [...] 3. Additional description as above. Reading Location: [facility] CC: Dr. Maryann Bajwa DO; Dr. Thomas Salinas MD Gas Pit Worker: Signed Normal [facility] hCG Titer Quant., Whitneyon HCG QUANT. 2419 mIU/mL High <9 non-preg [facility] Comment on above: Result Comment: Gest ational Age 0.2-1 Week: 5-50 mIU/mL 1-2 Weeks: 50-500 mIU/mL 2-3 Weeks: 100-5000 mIU/mL 3-4 Weeks: 500-10,000 mIU/mL 4-5 Weeks:1000-50,000 mIU/mL 5-6 Weeks: 10,000-100,000 mIU/mL 6-8 Weeks: 15,000-200,000 mIU/mL 2-3 Months:10,000-100,000 mIU/mL Performed By: #### L 100.0100, L501.0250, L509.8002, L3890.6006 #### [facility] [place], [address] HCG ( test) QlOrder ed By: Maryann Worthington on 06-18-2024 Human Chorionic Gonadotropin, Quant 110 mIU/mL High <9 [facility] Comment on above: Gestational Age0.2-1 Week: 5-50 mIU/mL1-2 Weeks: 50-500 mIU/mL2-3 Weeks: 100-5000 mIU/mL3-4 Weeks: 500-10,000 mIU/mL4-5 Weeks:1000-50,000 mIU/mL5-6 Weeks: 10,000-100,000 mIU/mL6-8 Weeks: 15,000-200,000 mIU/mL2-3 Months:10,000-100,000 mIU/mL Serum human chorionic gonado tropin detection for pregnancyOrdered By: Maryann Worthington on 06-18-2024 HCG ( test) Ql 110 mIU/mL High <9 [facility] Comment on above: Gestational Age0.2-1 Week: 5-50 mIU/mL1-2 Weeks: 50-500 mIU/mL2-3 Weeks: 100-5000 mIU/mL3-4 Weeks: 500-10,000 mIU/mL4-5 Weeks:1000-50,000 mIU/mL5-6 Weeks: 10,000-100,000 mIU/mL6-8 Weeks: 15,000-200,000 mIU/mL2-3 Months:10,000-100,000 mIU/mL hCG Titer Quant., Serumon HCG QUANT. 110 mIU/mL High <9 non-preg [facility] Comment on above: Result Comment: Gest ational Age 0.2-1 Week: 5-50 mIU/mL 1-2 Weeks: 50-500 mIU/mL 2-3 Weeks: 100-5000 mIU/mL 3-4 Weeks: 500-10,000 mIU/mL 4-5 Weeks:1000-50,000 mIU/mL 5-6 Weeks: 10,000-100,000 mIU/mL 6-8 Weeks: 15,000-200,000 mIU/mL 2-3 Months:10,000-100,000 mIU/mL Performed By: #### L 100.0100, L501.0250, L509.8002, L3890.6006 #### [facility] [address] [place], [address] HCG ( test) QlOrder ed By: Maryann Worthington on 06-16-2024 Human Chorionic Gonadotropin, Quant 37 mIU/mL High <9 [facility] Comment on above: Gestational Age0.2-1 Week: 5-50 mIU/mL1-2 Weeks: 50-500 mIU/mL2-3 Weeks: 100-5000 mIU/mL3-4 Weeks: 500-10,000 mIU/mL4-5 Weeks:1000-50,000 mIU/mL5-6 Weeks: 10,000-100,000 mIU/mL6-8 Weeks: 15,000-200,000 mIU/mL2-3 Months:10,000-100,000 mIU/mL Serum human chorionic gonado tropin detection for pregnancyOrdered By: Maryann Worthington on 06-16-2024 HCG ( test) Ql 37 mIU/mL High <9 [facility] Comment on above: Gestational Age0.2-1 Week: 5-50 mIU/mL1-2 Weeks: 50-500 mIU/mL2-3 Weeks: 100-5000 mIU/mL3-4 Weeks: 500-10,000 mIU/mL4-5 Weeks:1000-50,000 mIU/mL5-6 Weeks: 10,000-100,000 mIU/mL6-8 Weeks: 15,000-200,000 mIU/mL2-3 Months:10,000-100,000 mIU/mL hCG Titer Quant., Serumon HCG QUANT. 37 mIU/mL High <9 non-preg [facility] Comment on above: Result Comment: Gest ational Age 0.2-1 Week: 5-50 mIU/mL 1-2 Weeks: 50-500 mIU/mL 2-3 Weeks: 100-5000 mIU/mL 3-4 Weeks: 500-10,000 mIU/mL 4-5 Weeks:1000-50,000 mIU/mL 5-6 Weeks: 10,000-100,000 mIU/mL 6-8 Weeks: 15,000-200,000 mIU/mL 2-3 Months:10,000-100,000 mIU/mL Performed By: #### L 100.0100, L501.0250, L509.8002, L3890.6006 #### [facility] [place], [address] HCG ( test) QlOrder ed By: Barbie Mitchell on 04-14-2024 Human Chorionic Gonadotropin, Quant < 1 mIU/mL <4 [facility] Comment on above: hCG levels with Gest ational AgeGestational Age hCG mIU/mL (IU/L)0.2 - 1 week 5 - 501-2 weeks 50 - 5002-3 weeks 100 - 43772-3 weeks 500 - 779486-5 weeks 1000 - 541392-0 weeks 86124 - 100,0006-8 weeks 70918 - 200,0002-3 months 44940 - 100,000 Amphibian Crewmember Office Visit Reporton 04-14-2024 Amphibian Crewmember Office Visit Report [facility] [address], [address] [place] [address] OFFICE VISIT Date of Service: 04/14/24 MR#: [id number] Acct: [id number] Name: HANNAH HENDRICKS Rep #: [id number] : 1990 Provider: SHAWN wray Age/Sex: 34/F Location: [facility] [place] Status: Signed Intake Vital Signs 04/01/24 16:16 04/14/24 14:19 04/14/24 14:22 Height 5 ft 6 in 5 ft 6 in 5 ft 6 in Weight: 178 lb 8 oz BMI 28.8 BP 114/78 Intake Visit Reasons: Miscarriage F/U Chief Complaint: Miscarriage F/u Tube Heater Required: No Is patient in pain?: No [...] 1 current occupational status: employed current occupation: [employer] current occupational exposures/hazards: No pets and animals: [...] safe at home: Yes 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 [place] Delivery Date: [...] do serial HCGs 04/14/24 1511 Date Barbie Yansetings SITE SPECIALIST SITE SPECIALIST-C Cosigner Signature: Date (if applicable (more content not included)... Normal [facility] hCG Titer Quant., Serumon HCG QUANT. < 1 Normal 1-3 [facility] Comment on above: Result Comment: hCG levels with Gestational Age Gestational Age hCG mIU/mL (IU/L) 0.2 - 1 week 5 - 50 1-2 weeks 50 - 500 2-3 weeks 100 - 5000 3-4 weeks 500 - 24031 4-5 weeks 1000 - 70080 5-6 weeks 64046 - 100,000 6-8 weeks 49493 - 200,000 2-3 months 48326 - 100,000 Performed By: #### L 700.8000 #### [facility] [address] [place], [place], [id number] HCG ( test) QlOrder ed By: Isabel Marino on 04-06-2024 Human Chorionic Gonadotropin, Quant 6 mIU/mL High <4 [facility] hCG Titer Quant., Serumon HCG QUANT. 6 mIU/mL High 1-3 [facility] Comment on above: Performed By: #### L 100.0100, L501.0250, L509.8002, L3890.6006 #### [facility] [address] [place], [place], [id number] HCG ( test) QlOrder ed By: Isabel Marino on 04-03-2024 Human Chorionic Gonadotropin, Quant 8 mIU/mL High <4 [facility] hCG Titer Quant., Serumon HCG QUANT. 8 mIU/mL High 1-3 [facility] Comment on above: Performed By: #### L 100.0100, L501.0250, L509.8002, L3890.6006 #### [facility] [address] [place], [address] Absolute neutrophil countOrd ered By: Royce Chapin on 04-01-2024 Neutrophils (Bld) [#/Vol] 2.4 10*3/uL 2.0-7.7 [facility] Basic Metabolic Profile (BMP )on 04-01-2024 BUN/CRE 17.1 RATIO Normal - [facility] Comment on above: Performed By: #### L 100.0100, L501.0250, L509.8002, L3890.6006 #### [facility] [address] [place], [address] CA,Total 9.2 mg/dL Normal 8.5-10.1 [facility] Comment on above: Performed By: #### L 100.0100, L501.0250, L509.8002, L3890.6006 #### [facility] [address] [place], [address] Chloride [Moles/Vol] 108 mmol/L High 98-107 [facility] Comment on above: Performed By: #### L 100.0100, L501.0250, L509.8002, L3890.6006 #### [facility] [address] [place], [address] CO2 [Moles/Vol] 29.0 mmol/L Normal 21.0-32.0 [facility] Comment on above: Performed By: #### L 100.0100, L501.0250, L509.8002, L3890.6006 #### [facility] [address] [place], [address] Creatinine [Mass/Vol] 0.88 mg/dL Normal 0.55-1.02 [facility] Comment on above: Result Comment: The validity of the calculated GFR GFRAA in patients over 70 years has not been determined. Clinical correlation is essential. Performed By: #### L 100.0100, L501.0250, L509.8002, L3890.6006 #### [facility] [address] [place], [address] ECRCL 99.21 ml/min Normal [facility] Comment on above: Performed By: #### L 100.0100, L501.0250, L509.8002, L3890.6006 #### [facility] [address] [place], [address] EST GFR - AA 96 mL/min Normal >60 [facility] Comment on above: Result Comment: Afri can Vincentian GFR Calc Performed By: #### L 100.0100, L501.0250, L509.8002, L3890.6006 #### [facility] [address] [place], [address] GAP 2 Low 5-15 [facility] Comment on above: Performed By: #### L 100.0100, L501.0250, L509.8002, L3890.6006 #### [facility] [address] [place], [address] GFR/1.73 sq M.predicted among non-blacks MDRD (S/P/Bld) [Vol rate/Area] 79 mL/min/{1.73_m2} Normal >60 [facility] Comment on above: Result Comment: Non- GFR Calc Performed By: #### L 100.0100, L501.0250, L509.8002, L3890.6006 #### [facility] [address] [place], [address] Glucose [Mass/Vol] 91 mg/dL Normal 74-106 [facility] Comment on above: Performed By: #### L 100.0100, L501.0250, L509.8002, L3890.6006 #### [facility] [address] [place], [address] Potassium [Moles/Vol] 3.6 mmol/L Normal 3.5-5.1 [facility] Comment on above: Performed By: #### L 100.0100, L501.0250, L509.8002, L3890.6006 #### [facility] [address] [place], [address] Sodium [Moles/Vol] 139 mmol/L Normal 136-145 [facility] Comment on above: Performed By: #### L 100.0100, L501.0250, L509.8002, L3890.6006 #### [facility] [address] [place], [address] Urea nitrogen [Mass/Vol] 15 mg/dL Normal -18 [facility] Comment on above: Performed By: #### L 100.0100, L501.0250, L509.8002, L3890.6006 #### [facility] [address] [place], [address] Basophil percentageOrdered B y: Royce Chapin on 04-01-2024 Basophils/100 WBC (Bld) 1.2 % High 0-1 [place] Bilirubin Test strip Ql (U)O rdered By: Royce Chapin on 04-01-2024 Bilirubin Ql (U) Negative Negative [facility] Blood urea nitrogen (BUN)/cr eatinine ratioOrdered By: Royce Chapin on 04-01-2024 Urea nitrogen/Creatinine [Mass ratio] 17.1 mg/mg 10-20 [facility] CBC W/Diff, Automatedon 03-15 Absolute Lymph 1.45 X10 3/uL Normal 0.83-4.51 [facility] Comment on above: Performed By: #### L 100.0100, L501.0250, L509.8002, L3890.6006 #### [facility] [address] [place], [address] Absolute Neut 2.4 X10 3/uL Normal 2.0-7.7 [facility] Comment on above: Performed By: #### L 100.0100, L501.0250, L509.8002, L3890.6006 #### [facility] [address] [place], [address] Basophils/100 WBC (Bld) 1.2 % High 0-1 [facility] Comment on above: Performed By: #### L 100.0100, L501.0250, L509.8002, L3890.6006 #### [facility] [address] [place], [address] Eosinophils/100 WBC (Bld) 8.1 % High 0-5 [facility] Comment on above: Performed By: #### L 100.0100, L501.0250, L509.8002, L3890.6006 #### [facility] [address] [place], [address] Erythrocyte distribution width (RBC) [Ratio] 11.4 % Low 11.6-14.6 [facility] Comment on above: Performed By: #### L 100.0100, L501.0250, L509.8002, L3890.6006 #### [facility] [address] [place], [address] Hematocrit (Bld) [Volume fraction] 40.6 % Normal 37-47 [facility] Comment on above: Performed By: #### L 100.0100, L501.0250, L509.8002, L3890.6006 #### [facility] [address] [place], [address] Hemoglobin (Bld) [Mass/Vol] 13.9 g/dL Normal 12.0-15.0 [facility] [facility] Comment on above: Performed By: #### L 100.0100, L501.0250, L509.8002, L3890.6006 #### [facility] [address] [place], [address] IG% 0.200 Normal 0.0-0.9 [facility] Comment on above: Result Comment: IG% - Immature Granulocytes (promyelocytes, myelocytes and metamyelocytes) > 1% indicates that a LEFT SHIFT is Present. Performed By: #### L 100.0100, L501.0250, L509.8002, L3890.6006 #### [facility] [address] [place], [address] Lymphocytes/100 WBC (Bld) 28.7 % Normal 19-41 [facility] Comment on above: Performed By: #### L 100.0100, L501.0250, L509.8002, L3890.6006 #### [facility] [address] [place], [address] MCH (RBC) [Entitic mass] 33.6 pg High 27.0-32.0 [facility] Comment on above: Performed By: #### L 100.0100, L501.0250, L509.8002, L3890.6006 #### [facility] [address] [place], [address] MCHC (RBC) [Mass/Vol] 34.2 g/dL Normal 32-36 [facility] Comment on above: Performed By: #### L 100.0100, L501.0250, L509.8002, L3890.6006 #### [facility] [address] [place], [address] MCV (RBC) [Entitic vol] 98.1 fL Normal 81-99 [facility] Comment on above: Performed By: #### L 100.0100, L501.0250, L509.8002, L3890.6006 #### [facility] [address] [place], [address] Monocytes/100 WBC (Bld) 14.7 % High 0-10 [facility] Comment on above: Performed By: #### L 100.0100, L501.0250, L509.8002, L3890.6006 #### [facility] [address] [place], [address] Neutrophils/100 WBC (Bld) 47.1 % Normal 47-70 [facility] Comment on above: Performed By: #### L 100.0100, L501.0250, L509.8002, L3890.6006 #### [facility] [address] [place], [address] Nucleated RBC (Bld) [#/Vol] 0 10*3/uL Normal 0-5 [facility] Comment on above: Performed By: #### L 100.0100, L501.0250, L509.8002, L3890.6006 #### [facility] [address] [place], [address] Platelet mean volume (Bld) [Entitic vol] 9.1 fL Normal 6.2-12.0 [facility] Comment on above: Performed By: #### L 100.0100, L501.0250, L509.8002, L3890.6006 #### [facility] [address] [place], [address] Platelets (Bld) [#/Vol] 306 10*3/uL Normal 150-450 [facility] Comment on above: Performed By: #### L 100.0100, L501.0250, L509.8002, L3890.6006 #### [facility] [address] [place], [address] RBC (Bld) [#/Vol] 4.14 10*6/uL Low 4.2-5.4 [facility] Comment on above: Performed By: #### L 100.0100, L501.0250, L509.8002, L3890.6006 #### [facility] [address] [place], [address] RDW SD 41.4 fl Normal 35.1-43.9 [facility] Comment on above: Performed By: #### L 100.0100, L501.0250, L509.8002, L3890.6006 #### [facility] [address] [place], [address] WBC (Bld) [#/Vol] 5.1 10*3/uL Normal 4.4-11.0 [facility] Comment on above: Performed By: #### L 100.0100, L501.0250, L509.8002, L3890.6006 #### [facility] [address] [place], [address] Carbon dioxide measurementOr dered By: Royce Chapin on 04-01-2024 CO2 [Moles/Vol] 29.0 mmol/L 21.0-32.0 [facility] Chloride measurementOrdered By: Royce Chapin on 04-01-2024 Chloride [Moles/Vol] 108 mmol/L High 98-107 [facility] Emergency Department Summary on 04-01-2024 Emergency Department Summary [facility] Medical Records Department [address] [place] [address] Emergency Department Summary 04/01/24 MR#: [id number] Acct: [id number] Name: HANNAH HENDRICKS Rep #: [id number] : 1990 34 From: Royce Chapin DO [...] fevers or chills. Patient denies any dysuria. 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 Normal [facility] Eosinophil percentageOrdered By: Royce Chapin on 04-01-2024 Eosinophils/100 WBC (Bld) 8.1 % High 0-5 [facility] Epithelial cells.squamous LM Ql (Urine sed)Ordered By: Royce Chapin on 04-01-2024 Epithelial cells.squamous LM.HPF (Urine sed) [#/Area] 0 /[HPF] 5-10 [facility] Erythrocyte distribution wid th ratioOrdered By: Royce Chapin on 04-01-2024 Erythrocyte distribution width (RBC) [Ratio] 11.4 % Low 11.6-14.6 [facility] Erythrocyte distribution wid th standard deviationOrdered By: Royce Chapin on 04-01-2024 Erythrocyte distribution width (RBC) [Entitic vol] 41.4 fL 35.1-43.9 [facility] Estimated glomerular filtrat ion rate (GFR) AmericanOrdered By: Royce Chapin on 04-01-2024 Estimated GFR (MDRD) Amer 96 mL/min >60 [facility] Comment on above: GFR Calc Estimation of creatinine brad aranceOrdered By: Royce Chapin on 04-01-2024 Estimated Creatinine Clearance Calc 99.21 ml/min [facility] Glomerular filtration rate ( GFR) estimationOrdered By: Royce Chapin on 04-01-2024 Estimated GFR (MDRD) Non-Af Amer 79 mL/min >60 [facility] Comment on above: Non- GFR Calc Glucose Ql (U)Ordered By: Moisés Chapin on 04-01-2024 Urine Glucose (UA) Normal mg/dl Normal [facility] Glucose measurementOrdered B y: Royce Chapin on 04-01-2024 Glucose [Mass/Vol] 91 mg/dL 74-106 [facility] HCG ( test) QlOrder ed By: Royce Chapin on 04-01-2024 Human Chorionic Gonadotropin, Quant 9 mIU/mL High <4 [facility] Hematocrit Auto (Bld) [Volum e fraction]Ordered By: Royce Chapin on 04-01-2024 Hematocrit (Bld) [Volume fraction] 40.6 % 37-47 [facility] Hemoglobin measurementOrdere d By: Royce Chapin on 04-01-2024 Hemoglobin (Bld) [Mass/Vol] 13.9 g/dL 12.0-15.0 [facility] Immature granulocytes/100 WB C Auto (Bld)Ordered By: Royce Chapin on 04-01-2024 Immature granulocytes/100 WBC (Bld) 0.200 % 0.0-0.9 [facility] Comment on above: IG% - Immature Granu locytes (promyelocytes, myelocytes and metamyelocytes) > 1% indicates that a LEFT SHIFT is Present. Ketones Test strip Ql (U)Ord ered By: Royce Chapin on 04-01-2024 Ketones Ql (U) Negative Negative [facility] Lymphocytes Auto (Unsp spec) [#/Vol]Ordered By: Royce Chapin on 04-01-2024 Lymphocytes (Bld) [#/Vol] 1.45 10*3/uL 0.83-4.51 [facility] Lymphocytes/100 WBC Auto (Un sp spec)Ordered By: Royce Chapin on 04-01-2024 Lymphocytes/100 WBC (Bld) 28.7 % 19-41 [facility] MCV (mean corpuscular volume ) determinationOrdered By: Royce Chapin on 04-01-2024 MCV (RBC) [Entitic vol] 98.1 fL 81-99 [facility] [place] Mean corpuscular hemoglobin (MCH) determinationOrdered By: Royce Chapin on 04-01-2024 MCH (RBC) [Entitic mass] 33.6 pg High 27.0-32.0 [facility] Mean corpuscular hemoglobin concentration (MCHC) determinationOrdered By: Royce Chapin on 04-01-2024 MCHC (RBC) [Mass/Vol] 34.2 g/dL 32-36 [facility] Mean platelet volume determi nationOrdered By: Royce Chapin on 04-01-2024 Platelet mean volume (Bld) [Entitic vol] 9.1 fL 6.2-12.0 [facility] Microscopic analysis of urin e for red blood cells (RBC)Ordered By: Royce Chapin on 04-01-2024 Urine RBC 10-25 SEEN /hpf 0-5 [facility] Monocyte percentageOrdered B y: Royce Chapin on 04-01-2024 Monocytes/100 WBC (Bld) 14.7 % High 0-10 [facility] [place] Mucus LM Ql (Urine sed)Order ed By: Royce Chapin on 04-01-2024 Mucus Ql (Urine sed) 1+ /hpf [facility] Neutrophil percentageOrdered By: Royce Chapin on 04-01-2024 Neutrophils/100 WBC (Bld) 47.1 % 47-70 [facility] Nitrite Test strip Ql (U)Ord ered By: Royce Chapin on 04-01-2024 Nitrite Ql (U) Negative Negative [facility] Nucleated red blood cell per centageOrdered By: Royce Chapin on 04-01-2024 Nucleated RBC/100 WBC (Bld) [Ratio] 0 % 0-5 [facility] Platelet countOrdered By: Moisés Chapin on 04-01-2024 Platelets (Bld) [#/Vol] 306 10*3/uL 150-450 [facility] Potassium measurementOrdered By: Royce Chapin on 04-01-2024 Potassium [Moles/Vol] 3.6 mmol/L 3.5-5.1 [facility] Protein Test strip Ql (U)Ord ered By: Royce Chapin on 04-01-2024 Protein Ql (U) 30 mg/dl High Negative [facility] RBC Auto (Bld) [#/Vol]Ordere d By: Ryoce Chapin on 04-01-2024 RBC (Bld) [#/Vol] 4.14 10*6/uL Low 4.2-5.4 [facility] Serum anion gap measurementO rdered By: Royce Chapin on 04-01-2024 Anion gap [Moles/Vol] 2 mmol/L Low 5-15 [facility] Serum or plasma calcium tiffanie urement (mass/volume)Ordered By: Royce Chapin on 04-01-2024 Calcium [Mass/Vol] 9.2 mg/dL 8.5-10.1 [facility] Serum or plasma creatinine m easurement (mass/volume)Ordered By: Royce Chapin on 04-01-2024 Creatinine [Mass/Vol] 0.88 mg/dL 0.55-1.02 [facility] Comment on above: The validity of the calculated GFR & GFRAA in patients over 70 years has not been determined. Clinical correlation is essential. Serum or plasma urea nitroge n measurement (mass/volume)Ordered By: Royce Chapin on 04-01-2024 Urea nitrogen [Mass/Vol] 15 mg/dL 7-18 [facility] Sodium levelOrdered By: Royce Chapin on 04-01-2024 Sodium [Moles/Vol] 139 mmol/L 136-145 [facility] Transvaginal w/Preg USon Transvaginal w/Preg US [facility] Imaging Services [address] [place] [address] Transvaginal w/Preg US MR#: [id number] Acct: [id number] Name: HANNAH HENDRICKS Rep #: [id number] : 1990 F 34 From: Andi Bliss MD PCP: Dr. Thomas Salinas MD Status: [facility] ER Study: Transvaginal w/Preg US Date of Exam: 04/01/24 Exam# [id number] Ordering Dr: Royce Chapin DO [id number] STUDY: FIRST TRIMESTER OBSTETRICAL ULTRASOUND REASON FOR [...] 19:06 EST Reading Location ID and State: [address] [place] [address] Tel , Service support , CC: Dr. Royce Chapin, DO; Dr. 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, [address] EPI,SQUAMOUS 0-5 SEEN Normal 5-10 [facility] Comment on above: Order Comment: CLEAN CATCH Performed By: #### L 100.0100, L501.0250, L509.8002, L3890.6006 #### [facility] [address] [place], [address] Mucus Ql (Urine sed) 1+ /hpf Normal [facility] Comment on above: Order Comment: CLEAN CATCH Performed By: #### L 100.0100, L501.0250, L509.8002, L3890.6006 #### [facility] [address] [place], [address] RBC 10-25 SEEN Normal 0-5 [facility] Comment on above: Order Comment: CLEAN CATCH Performed By: #### L 100.0100, L501.0250, L509.8002, L3890.6006 #### [facility] [address] [place], [address] WBC 5-10 SEEN Normal 0-5 [facility] Comment on above: Order Comment: CLEAN CATCH Performed By: #### L 100.0100, L501.0250, L509.8002, L3890.6006 #### [facility] [address] [place], [place], [address] Urine blood detectionOrdered By: Royce Chapin on 04-01-2024 Urine Occult Blood 250 /ul High Negative [facility] Urine clarityOrdered By: Lauren Chapin on 04-01-2024 Clarity (U) Sl. Cloudy Clear [facility] Urine color determinationOrd ered By: Royce Chapin on 04-01-2024 Color (U) Yellow Yellow [facility] Urine leukocyte esterase det ection by dipstickOrdered By: Royce Chapin on 04-01-2024 Leukocyte esterase Test strip Ql (U) 25 /ul High Negative [facility] Urine pHOrdered By: Royce adam on 04-01-2024 pH (U) 7.0 [pH] 5.0 - 8.0 [facility] Urine sediment bacteria coun t by microscopy (number/high power field)Ordered By: Royce Chapin on 04-01-2024 Bacteria LM.HPF (Urine sed) [#/Area] 1 /[HPF] None Seen [facility] Urine specific gravity measu rementOrdered By: Royce Chapin on 04-01-2024 Specific gravity (U) [Rel density] 1.015 1.002-1.030 [facility] Urobilinogen Ql (U)Ordered B y: Royce Chapin on 04-01-2024 Urine Urobilinogen Normal mg/dl Normal [facility] White blood cell (WBC) count Ordered By: Royce Chapin on 04-01-2024 WBC (Bld) [#/Vol] 5.1 10*3/uL 4.4-11.0 [facility] White blood cell countOrdere d By: Royce Chapin on 04-01-2024 Urine WBC 5-10 SEEN /hpf 0-5 [facility] hCG Titer Quant., Serumon HCG QUANT. 9 mIU/mL High 1-3 [facility] Comment on above: Performed By: #### L 100.0100, L501.0250, L509.8002, L3890.6006 #### [facility] [address] [place], [address] C diff Tox gens Stl Ql YANDY+p robeon 07-29-2023 C. difficile toxin genes YANDY+probe Ql (Stl) Negative Normal Negative for C. difficile toxin by PCR [facility] Comment on above: Order Comment: Speci men Type: STOOL SPECIMEN Ordering Facility: [facility] Address: [address] [place] [address] Performed By: #### 5 4067-4 #### [facility] CLIA [id number] [address] [place] [address] [place] Gastrointestinal pathogens i dentified YANDY+probe Nom (Stl)on 07-29-2023 Campylobacter sp DNA YANDY+probe Nom (Unsp spec) Not detected Normal Not Detected [facility] Comment on above: Order Comment: Speci men Type: STOOL SPECIMEN Ordering Facility: [facility] Address: [address] [place] [address] Performed By: #### 7 9390-1 #### [facility] CLIA [id number] [address] [place] [address] [place] Salmonella sp DNA YANDY+probe Ql (Unsp spec) Not detected Normal Not Detected [facility] Comment on above: Order Comment: Speci men Type: STOOL SPECIMEN Ordering Facility: [facility] Address: [address] [place] [address] Performed By: #### 7 9390-1 #### [facility] CLIA [id number] [address] [place] [address] [place] Shiga toxin stx gene YANDY+probe Nom (Unsp spec) Not detected Normal Not Detected [facility] Comment on above: Order Comment: Speci men Type: STOOL SPECIMEN Ordering Facility: [facility] Address: [address] [place] [address] Performed By: #### 7 9390-1 #### [facility] CLIA [id number] [address] [place] [address] [place] Shigella sp DNA YANDY+probe Ql (Unsp spec) Not detected Normal Not Detected [facility] Comment on above: Order Comment: Speci men Type: STOOL SPECIMEN Ordering Facility: [facility] Address: [address] [place] [address] Performed By: #### 7 9390-1 #### [facility] CLIA [id number] [address] [place] [address] [place] O+P Spec Microon 07-29-2023 Ova and parasites identified LM Nom (Unsp spec) OVA AND PARASITE EXAM: No Parasites Seen Normal [facility] Comment on above: Performed By: #### 6 73-4 #### [facility] CLIA [id number] [address] [place] [address] OF CEM CNOVon 07-27-2023 CNOV Office Visit ([facility] ) HANNAH HENDRICKS ([id number]) 1990 F Date Time Provider Department 07/27/23 10:50 AM [facility] During your visit today, we recorded the following information about you: Temperature Pulse Respiration Blood pressure 97.7 degrees 98/minute 18/minute 117/69 Weight 73 kg Diana Trejo, CARE MANAGER.CLINICAL NURSING PROFESSOR 07/27/2023 12:13 PM Addendum Assessment and Plan: [...] other new or worsening symptoms. Diana Trejo APRN.MANDEEP 07/27/2023 12:13 PM Signed [facility] Care Visit Patient Name: Hannah Hendricks Primary Care Physician: Thomas Salinas MD Service Date: 07/27/2023 SUBJECTIVE: Hannah is an pleasant otherwise well 33 year old female who is here today accompanied by her Mom for evaluation of symptom(s)/complaint( s) as below. Presenting with concern of persistent diarrhea since 07/24/2023. Traveled for work recently to [place]. Had salmon Saturday evening upon arrival to [...] Take 1 (more content not included)... Normal [facility] HEALTHon 05-16-2023 ALLIED HEALTH HNO ID: [id number] Author: KATTY AMARAL, SIMON Service: Radiology Author Type: Technologist Type: Allied [...] PATIENT PRESENTS WITH AN IMPLANTABLE OR ATTACHED MINISTER: No RADIOLOGY DEPARTMENT: CT; Exam(s) Completed: Brain PERIPHERAL IV DATA: Not applicable SIGNED BY: Katty Cullen, SIMON May 16, 2023 4:33 PM Normal [facility] CBC W Auto Differential pane l (Bld)on 05-16-2023 Basophils (Bld) [#/Vol] 0.04 10*3/uL Normal <0.11 [facility] Comment on above: Order Comment: Speci men Type: BLOOD SPECIMENOrdering Facility: [facility] Address: [address] [place] [address] Performed By: #### 5 7021-8 ####[facility] [id number] [place] [address] [place] Basophils/100 WBC (Bld) 0.6 % Normal [facility] Comment on above: Order Comment: Speci men Type: BLOOD SPECIMENOrdering Facility: [facility] Address: [address] [place] [address] Performed By: #### 5 7021-8 ####[facility]ORYCLIA [id number] [place] [address] [place] Differential cell count method Nom (Bld) Auto Normal [facility] Comment on above: Order Comment: Speci men Type: BLOOD SPECIMENOrdering Facility: [facility] Address: [address] [place] [address] Performed By: #### 5 7021-8 ####[facility]ORYCLIA [id number] [place] [address] [place] Eosinophils (Bld) [#/Vol] 0.61 10*3/uL High <0.46 [facility] Comment on above: Order Comment: Speci men Type: BLOOD SPECIMENOrdering Facility: [facility] Address: [address] [place] [address] Performed By: #### 5 7021-8 ####[facility]ORYCLIA [id number] [place] [address] [place] Eosinophils/100 WBC (Bld) 8.4 % Normal [facility] Comment on above: Order Comment: Speci men Type: BLOOD SPECIMENOrdering Facility: [facility] Address: [address] [place] [address] Performed By: #### 5 7021-8 ####[facility]ORYCLIA [id number] [place] [address] [place] Erythrocyte distribution width (RBC) [Ratio] 11.6 % Normal 11.5-15.0 [facility] Comment on above: Order Comment: Speci men Type: BLOOD SPECIMENOrdering Facility: [facility] Address: [address] [place] [address] Performed By: #### 5 7021-8 ####[facility]ORYCLIA [id number] [place] [address] [place] Hematocrit (Bld) [Volume fraction] 37.8 % Normal 36.0-46.0 [facility] Comment on above: Order Comment: Speci men Type: BLOOD SPECIMENOrdering Facility: [facility] Address: [address] [place] [address] Performed By: #### 5 7021-8 ####[facility]ORYCLIA [id number] [place] [address] [place] Hemoglobin (Bld) [Mass/Vol] 12.9 g/dL Normal 11.5-15.5 [facility] Comment on above: Order Comment: Speci men Type: BLOOD SPECIMENOrdering Facility: [facility] Address: [address] [place] [address] Performed By: #### 5 7021-8 ####[facility]ORYCLIA [id number] [place] [address] [place] Immature granulocytes (Bld) [#/Vol] 10*3/uL Normal <0.10 [facility] Comment on above: Order Comment: Speci men Type: BLOOD SPECIMENOrdering Facility: [facility] Address: [address] [place] [address] Performed By: #### 5 7021-8 ####[facility]ORYCLIA [id number] [address] Immature granulocytes/100 WBC (Bld) 0.1 % Normal [facility] Comment on above: Order Comment: Speci men Type: BLOOD SPECIMENOrdering Facility: [facility] Address: [address] [place] [address] Performed By: #### 5 7021-8 ####[facility]ATORYCLIA [id number] [place] [address] [place] Lymphocytes (Bld) [#/Vol] 2.34 10*3/uL Normal 1.00-4.00 [facility] Comment on above: Order Comment: Speci men Type: BLOOD SPECIMENOrdering Facility: [facility] Address: [address] [place] [address] Performed By: #### 5 7021-8 ####[facility]ORYCLIA [id number] [address] [place] Lymphocytes/100 WBC (Bld) 32.3 % Normal [facility] Comment on above: Order Comment: Speci men Type: BLOOD SPECIMENOrdering Facility: [facility] Address: [address] [place] [address] Performed By: #### 5 7021-8 ####[facility]ATORYCLIA [id number] [address] [place] MCH (RBC) [Entitic mass] 33.1 pg Normal 26.0-34.0 [facility] Comment on above: Order Comment: Speci men Type: BLOOD SPECIMENOrdering Facility: [facility] Address: [address] [place] [address] Performed By: #### 5 7021-8 ####[facility]ATORYCLIA [id number] [address] [place] MCHC (RBC) [Mass/Vol] 34.1 g/dL Normal 30.5-36.0 [facility] Comment on above: Order Comment: Speci men Type: BLOOD SPECIMENOrdering Facility: [facility] Address: [address] [place] [address] Performed By: #### 5 7021-8 ####[facility]ORATORYCLIA [id number] [place] [address] [place] MCV (RBC) [Entitic vol] 96.9 fL Normal 80.0-100.0 [facility] Comment on above: Order Comment: Speci men Type: BLOOD SPECIMENOrdering Facility: [facility] Address: [address] [place] [address] Performed By: #### 5 7021-8 ####[facility]ATORYCLIA [id number] [place] [address] [place] Monocytes (Bld) [#/Vol] 0.97 10*3/uL High <0.87 [facility] Comment on above: Order Comment: Speci men Type: BLOOD SPECIMENOrdering Facility: [facility] Address: [address] [place] [address] Performed By: #### 5 7021-8 ####[facility]ATORYCLIA [id number] [address] [place] Monocytes/100 WBC (Bld) 13.4 % Normal [facility] Comment on above: Order Comment: Speci men Type: BLOOD SPECIMENOrdering Facility: [facility] Address: [address] [place] [address] Performed By: #### 5 7021-8 ####[facility]ATORYCLIA [id number] [place] [address] [place] Neutrophils (Bld) [#/Vol] 3.27 10*3/uL Normal 1.45-7.50 [facility] Comment on above: Order Comment: Speci men Type: BLOOD SPECIMENOrdering Facility: [facility] Address: [address] [place] [address] Performed By: #### 5 7021-8 ####[facility]ORATORYCLIA [id number] [address] Neutrophils/100 WBC (Bld) 45.2 % Normal [facility] Comment on above: Order Comment: Speci men Type: BLOOD SPECIMENOrdering Facility: [facility] Address: [address] [place] [address] Performed By: #### 5 7021-8 ####[facility]ORATORYCLIA [id number] [place] [address] [place] Nucleated RBC (Bld) [#/Vol] 10*3/uL Normal <0.01 [facility] Comment on above: Order Comment: Speci men Type: BLOOD SPECIMENOrdering Facility: [facility] Address: [address] [place] [address] Performed By: #### 5 7021-8 ####[facility]ORATORYCLIA [id number] [place] [address] [place] Nucleated RBC/100 WBC (Bld) [Ratio] 0.0 /100 WBC Normal [facility] Comment on above: Order Comment: Speci men Type: BLOOD SPECIMENOrdering Facility: [facility] Address: [address] [place] [address] Performed By: #### 5 7021-8 ####[facility] LABORATORYCLIA [id number] [place] [address] [place] Platelet mean volume (Bld) [Entitic vol] 9.2 fL Normal 9.0-12.7 [facility] Comment on above: Order Comment: Speci men Type: BLOOD SPECIMENOrdering Facility: [facility] Address: [address] [place] [address] Performed By: #### 5 7021-8 ####URBAN LABORATORYCLIA [id number] [place] [id number] [place] Platelets (Bld) [#/Vol] 298 10*3/uL Normal 150-400 [facility] Comment on above: Order Comment: Speci men Type: BLOOD SPECIMENOrdering Facility: [facility] Address: [address] [place] [address] Performed By: #### 5 7021-8 ####URBAN LABORATORYCLIA [id number] [place] [address] [place] RBC (Bld) [#/Vol] 3.90 10*6/uL Normal 3.90-5.20 [facility] Comment on above: Order Comment: Speci men Type: BLOOD SPECIMENOrdering Facility: [facility] Address: [address] [place] [address] Performed By: #### 5 7021-8 ####URBAN LABORATORYCLIA [id number] [place] [id number] [place] WBC (Bld) [#/Vol] 7.24 10*3/uL Normal 3.70-11.00 [facility] Comment on above: Order Comment: Speci men Type: BLOOD SPECIMENOrdering Facility: [facility] Address: [address] [place] [address] Performed By: #### 5 7021-8 ####URBAN LABORATORYCLIA [id number] [place] [address] [facility] CT BRAIN WO IVCONon 05-16-19 CT BRAIN WO IVCON * * *Final Report* * * DATE OF EXAM: May 16 2023 4:35PM [facility] [place]IN [place] IVCON / [...] base and imaged soft tissues are unremarkable. [employer] Crm Developer (topogram) images: No additional findings. IMPRESSION: No CT evidence of acute intracranial abnormality. Gas Pit Worker: PSCB Transcribe Date/Time: May 16 2023 5:13P Dictated by : CHRISTINA MONAHAN DO This examination was interpreted and the report reviewed and electronically signed by: CHRISTINA MONAHAN DO on May 16 2023 5:30PM EST [id number] Normal [facility] Comprehensive metabolic 2000 panelon 05-16-2023 Albumin [Mass/Vol] 4.4 g/dL Normal 3.9-4.9 [facility] Comment on above: Order Comment: Carlos A villeda Type: BLOOD SPECIMENOrdering Facility: [facility] Address: [address] [place] [address] Performed By: #### L [id number], 05893-8, ####[facility] LABORATORYCLIA [id number] [place] [address] [place] ALP [Catalytic activity/Vol] 50 U/L Normal 34-123 [facility] Comment on above: Order Comment: Carlos A villeda Type: BLOOD SPECIMENOrdering Facility: [facility] Address: [address] [place] [address] Performed By: #### L [id number], , ####URBAN LABORATORYCLIA [id number] [address] STATES OF [facility] ALT [Catalytic activity/Vol] 9 U/L Normal 7-38 [facility] Comment on above: Order Comment: Carlos A villeda Type: BLOOD SPECIMENOrdering Facility: [facility] Address: [address] [place] [address] Performed By: #### L [id number], 01833-2, ####URBAN LABORATORYCLIA [id number] [address] STATES [facility] Anion gap [Moles/Vol] 8 mmol/L Low 9-18 [facility] Comment on above: Order Comment: Carlos A villeda Type: BLOOD SPECIMENOrdering Facility: [facility] Address: [address] [place] [address] Performed By: #### L [id number], , ####URBAN LABORATORYCLIA [id number] [place] [address] [place] AST [Catalytic activity/Vol] 19 U/L Normal 13-35 [facility] Comment on above: Order Comment: Speci men Type: BLOOD SPECIMENOrdering Facility: [facility] Address: [address] [place] [address] Performed By: #### L [id number], , ####URBAN LABORATORYCLIA [id number] [place] [address] [place] Bilirubin [Mass/Vol] 0.4 mg/dL Normal 0.2-1.3 [facility] Comment on above: Order Comment: Speci men Type: BLOOD SPECIMENOrdering Facility: [facility] Address: [address] [place] [address] Performed By: #### L [id number], , ####URB[facility] LABORATORYCLIA [id number] [place] [address] [place] Calcium [Mass/Vol] 8.8 mg/dL Normal 8.5-10.2 [facility] Comment on above: Order Comment: Speci men Type: BLOOD SPECIMENOrdering Facility: [facility] Address: [address] [place] [address] Performed By: #### L [id number], , ####URBAN LABORATORYCLIA [id number] [place] [address] [place] Chloride [Moles/Vol] 108 mmol/L High 97-105 [facility] Comment on above: Order Comment: Speci men Type: BLOOD SPECIMENOrdering Facility: [facility] Address: [address] [place] [address] Performed By: #### L [id number], , ####URBAN LABORATORYCLIA [id number] [place] [address] [place] CO2 [Moles/Vol] 26 mmol/L Normal 22-30 [facility] Comment on above: Order Comment: Speci men Type: BLOOD SPECIMENOrdering Facility: [facility] Address: [address] [place] [address] Performed By: #### L [id number], , ####URB[facility] LABORATORYCLIA [id number] [place] [address] [place] Creatinine [Mass/Vol] 0.76 mg/dL Normal 0.58-0.96 [facility] Comment on above: Order Comment: Carlos A villeda Type: BLOOD SPECIMENOrdering Facility: [facility] Address: [address] [place] [address] Performed By: #### L [id number], , ####URBAN LABORATORYCLIA [id number] [address] Creatinine and Glomerular filtration rate.predicted panel (S/P/Bld) 108 mL/min/1.73m??? Normal >=60 [facility] Comment on above: Order Comment: Carlos A villeda Type: BLOOD SPECIMENOrdering Facility: [facility] Address: [address] [place] [address] Result Comment: Vickie mated Glomerular Filtration Rate [...] reflect actual GFR. Performed By: #### L [id number], , ####URB[facility] LABORATORYCLIA [id number] [place] [id number] [place] Glucose [Mass/Vol] 80 mg/dL Normal 74-99 [facility] Comment on above: Order Comment: Carlos A [facility] Type: BLOOD SPECIMENOrdering Facility: [facility] Address: [address] [place] [address] Result Comment: The [place] Diabetes Association (ADA) provides guidance for cutoff [...] Standards of Medical Care in Diabetes 2016, [place] [employer] Association. Diabetes Care. 2016.39(Suppl 1). Performed By: #### L [id number], , ####[facility] LABORATORYCLIA [id number] [place] [address] [place] Potassium [Moles/Vol] 3.7 mmol/L Normal 3.7-5.1 [facility] Comment on above: Order Comment: Carlos A villeda Type: BLOOD SPECIMENOrdering Facility: [facility] Address: [address] [place] [address] Performed By: #### L [id number], , ####[facility] LABORATORYCLIA [id number] [place] [address] [place] Protein [Mass/Vol] 6.8 g/dL Normal 6.3-8.0 [facility] Comment on above: Order Comment: Carlos A villeda Type: BLOOD SPECIMENOrdering Facility: [facility] Address: [address] [place] [address] Performed By: #### L [id number], , ####[facility] LABORATORYCLIA [id number] [place] [id number] [place] Sodium [Moles/Vol] 142 mmol/L Normal 136-144 [facility] Comment on above: Order Comment: Carlos A villeda Type: BLOOD SPECIMENOrdering Facility: [facility] Address: [address] [place] [address] Performed By: #### L [id number], , ####[facility] LABORATORYCLIA [id number] [place] [id number] [place] Urea nitrogen [Mass/Vol] 12 mg/dL Normal 7-21 [facility] Comment on above: Order Comment: Speci men Type: BLOOD SPECIMENOrdering Facility: [facility] Address: [address] [place], [place] [address] [address] Performed By: #### L [id number], 12761-8, 68071-1 ####[facility] LABORATORYCLIA [id number] [address] OF [facility] D dimer FEU PPP-mCncon 05-16 Fibrin D-dimer FEU (PPP) [Mass/Vol] 300 ng/mL FEU Normal <500 [facility] Comment on above: Order Comment: Speci men Type: BLOOD SPECIMENOrdering Facility: [facility] Address: [address] [place], [place] [address] [address] Performed By: #### 4 8065-7 ####CH[facility] LABORATORYCLIA [id number] [address] ECG COMPLETEon 05-16-2023 ECG COMPLETE Ventricular Rate : 9 5 BPM Atrial Rate : 95 BPM P-R Interval : 146 ms QRS Duration : 100 ms Q-T Interval : 368 ms QTC Calculation(Bazett) : 462 ms Calculated P Spiro : 73 degrees Calculated R Spiro : 88 degrees Calculated T Spiro : 64 degrees NORMAL SINUS RHYTHM INCOMPLETE RIGHT BUNDLE BRANCH BLOCK BORDERLINE ECG no stemi Confirmed by Steve SCOTT ERIKA ([id number]), manager editorial ASHWINI JACKSON (1940) on 05/17/2023 8:51:33 AM NAME : HANNAH HENDRICKS PID : [id number] : 1990 Gender : Female Race : ORD : [id number] Procedure Date : May 16 2023 15:03:41 Edit Date : May 17 2023 08:51:39 Diagnosis: NORMAL SINUS RHYTHM INCOMPLETE RIGHT BUNDLE BRANCH BLOCK BORDERLINE ECG no stemi Confirmed by Steve SCOTT ERIKA ([id number]), manager editorial ASHWINI JACKSON (1940) on 05/17/2023 8:51:33 AM Test Reason : Chest Pain Location : 1 : ER ED Overread By : Steve SCOTT ERIKA Edited By : ASHWINI JACKSON Referred By : , Acquired by : brown, [facility] ED NOTEon 05-16-2023 ED NOTE HNO ID: [id number] Author: ESTEBAN MCFADDEN RN Service: Nursing Author Type: Registered Nurse Type: ED Notes Filed: 05/16/2023 18:59 Note Text: Pt discharged to home in stable condition. No noted distress - respirations equal and unlabored. AVS and medications reviewed. Pt verbalized understanding and importance of follow up care. No questions for this RN at this time. [facility] ED NOTE HNO ID: [id number] Author: DHARMESH DAVIS, AMARILIS Service: ? Author Type: Registered Nurse Type: [...] AANDOx3. Resolution of symptoms at this time. [facility] ED NOTE HNO ID: [id number] Author: ERIC GOFF RN Service: ? Author Type: Registered Nurse Type: ED Notes Filed: 05/16/2023 14:54 Note Text: Bed: ED-02 Expected date: Expected time: Means of arrival: [facility] Comments: [facility] ED PROV NOTEon 05-16-2023 ED PROV NOTE HNO ID: [id number] Author: MAGDA SCOTT MD Service: ? Author Type: Physician Type: ED Provider Notes Filed: 05/16/2023 18:51 Note Text: ED Provider Note Patient Name: Hannah Hendricks : 1990 SERVICE DATE: 05/16/23 History Patient presents with: Dizziness: [place] flushed, dizzy, while using the restroom. Had [...] Abnormal; Notable for the following components: Abs [place] 0.97 (*) <0.87 k/uL Abs [place] 0.61 (*) <0.46 k/uL All other components within normal limits HCG QUAL BLD - Normal HIGH SENSITIVITY TROPONIN T (INITIAL) MAGNESIUM BLD Procedures ED Course / Clinical Impression Clinical Impressions as of 05/16/23 1824 Sinus tach (more content not included)... Normal [facility] HCG QUAL BLDon 05-16-2023 HCG, QUALITATIVE Negative Normal Negative [facility] Comment on above: Order Comment: Speci men Type: BLOOD SPECIMENOrdering Facility: [facility] Address: [address] [place] [address] Performed By: #### H ####[facility] LABORATORYCLIA [id number] [place] [address] OF [place] HIGH SENSITIVITY TROPONIN T (INITIAL)on 05-16-2023 Troponin T.cardiac High sensitivity method [Mass/Vol] <6 Normal <12 [facility] Comment on above: Order Comment: Carlos A villeda Type: BLOOD SPECIMENOrdering Facility: [facility] Address: [address] [place] [address] Result Comment: When assessing risk for acute [...] 30 day MACE. Performed By: #### L [id number], 31990-2, 10289-4 ####[facility] LABORATORYCLIA [id number] [address] OF [place] HIGH SENSITIVITY TROPONIN T (SECOND)on 05-16-2023 Troponin T.cardiac High sensitivity method [Mass/Vol] <6 Normal <12 [facility] Comment on above: Order Comment: Carlos A villeda Type: BLOOD SPECIMENOrdering Facility: [facility] Address: [address] [place] [address] Result Comment: When assessing risk for acute [...] 30 day MACE. Performed By: #### L [id number] ####URBAN LABORATORYCLIA [id number] [place] [id number] [place] Magnesium SerPl-mCncon 05-16 Magnesium [Mass/Vol] 2.0 mg/dL Normal 1.7-2.3 [facility] Comment on above: Order Comment: Carlos A villeda Type: BLOOD SPECIMENOrdering Facility: [facility] Address: [address] [place] [address] Performed By: #### L [id number], 76348-7, 34185-2 ####[facility]BAN LABORATORYCLIA [id number] [place] [address] [place] MRI LUMBAR SPINE [...] and assume there are 5 lumbar-type vertebrae. Gas Pit Worker: PSCB Transcribe Date/Time: Mar 02 2023 2:18P Dictated by : ELLYN BERRY MD This examination was interpreted and the report reviewed and electronically signed by: ELLYN BERRY MD on Mar 02 2023 2:27PM EST [id number] N [facility] CNOVon 02-06-2023 CNOV Office Visit (NSFRVW ) HANNAH HENDRICKS ([id number]) 1990 F Date Time Provider Department 02/06/23 [...] 2022 after 19 visits. PAIN EVALUATION 02/03/2023 2229 02/06/2023 0839 Pain Level: 3 2 Pain Location: Back-Lower -- Description: Burning;Stabbing;Stif fness;Tightness;Tingl ing -- Duration Units: Months -- Frequency: Continuous Continuous Intervention/Comfort measure: Medication;Reposition ;Relaxation;Education ;Exercise;Heat;Wire Coiler Machine Operator y;Massage;Pillow support;Positioning;T herapeutic techniques-CPRP -- [...] 106/73 Pulse 101 Ht 165.1 cm (5' 5") Wt 73.9 kg (163 lb) LMP 03/14/2022 [...] Past Histories independently gathered by the clinical ict support engineer and the remaining scribed note accurately describes my personal service to the patient (more content not included)... [facility] (NIQ) HANNAH HENDRICKS ([id number]) 1990 F Date Time Provider Department 01/30/23 KONSTANTIN KIRKLAND During your visit today, we recorded the following information about you: Britt Acevedo 01/30/2023 9:18 AM Signed Patient called stating [...] Fully Assessed Reason for Visit: Patient Question [7407] Prescriptions as of 04/23/2023 - methocarbamol (ROBAXIN-750) [...] pain with right-side*04/20/2022 Encounter Status:Closed by BRITT ACEVEDO on 04/23/23 Normal [facility] CNTHERAPYon 12-31-2022 CNTHERAPY OT/PT/Speech Visit (PTMDRG) HANNAH HENDRICKS ([id number]) 1990 F Date Time Provider Department 12/31/22 6:00 PM NEHEMIAS SUAREZ PTMDRG Date Time Provider Department Center 12/31/2022 6:00 PM [id number], SCOTT PTMDRG [facility] Reason for Visit: PT Discharge [752] Primary [...] one time only. Placed September 2020 Normal [facility] CNTHERAPYon 11-28-2022 CNTHERAPY OT/PT/Speech Visit (PTMDRG) HANNAH HENDRICKS ([id number]) 1990 F Date Time Provider Department 11/28/22 6:00 PM NEHEMIAS SUAREZ PTMDRG Date Time Provider Department [place] 11/28/2022 6:00 PM [id number], SCOTT PTMDRG [facility] Reason for Visit: PT Progress Note [...] route one time only. Placed September 2020 [facility] CNTHERAPYon 10-24-2022 CNTHERAPY OT/PT/Speech Visit (PTMDRG) HANNAH HENDRICKS ([id number]) 1990 F Date Time Provider Department 10/24/22 6:00 PM NEHEMIAS SUAREZ PTMG Date Time Provider Department Center 10/24/2022 6:00 PM [id number], SCOTT PTMDRG [facility] Reason for Visit: PT Progress Note [...] route one time only. Placed September 2020 [facility] CNTHERAPYon 09-12-2022 CNTHERAPY OT/PT/Speech Visit (PTMDRG) HANNAH HENDRICKS ([id number]) 1990 F Date Time Provider Department 09/12/22 5:15 PM NEHEMIAS SUAREZ PTMG Date Time Provider Department Center 09/12/2022 5:15 PM [id number], SCOTT PTMG [facility] Reason for Visit: PT Progress Note [...] route one time only. Placed September 2020 [facility] CNTHERAPYon 08-29-2022 CNTHERAPY OT/PT/Speech Visit (PTMDRG) HANNAH HENDRICKS ([id number]) 1990 F Date Time Provider Department 08/29/22 5:45 PM JULIANO URIAS Date Time Provider Department [place] 08/29/2022 5:45 PM [id number], SUSAN [facility] Reason for Visit: Physical Therapy [503] Primary [...] one time only. Placed September 2020 Normal [facility] CNTHERAPYon 08-15-2022 CNTHERAPY OT/PT/Speech Visit (PTMDRG) HANNAH HENDRICKS ([id number]) 1990 F Date Time Provider Department 08/15/22 6:00 PM NEHEMIAS SUAREZ PTMDRG Date Time Provider Department Center 08/15/2022 6:00 PM [id number], SCOTT PTMDRG [facility] Reason for Visit: PT Progress Note [5206] [...] route one time only. Placed September 2020 [facility] CNTHERAPYon 07-16-2022 CNTHERAPY OT/PT/Speech Visit (PTMDRG) HANNAH HENDRICKS ([id number]) 1990 F Date Time Provider Department 07/16/22 12:30 PM NEHEMIAS SUAREZ PTMDRG Date Time Provider Department [place] 07/16/2022 12:30 PM [id number], SCOTT PTMDRG [facility] Reason for Visit: PT Progress Note [6126] Primary Visit Diagnosis:Chronic bilateral low back pain [...] one time only. Placed September 2020 Normal [facility] CNTHERAPYon 07-09-2022 CNTHERAPY OT/PT/Speech Visit (PTMDRG) HANNAH HENDRICKS ([id number]) 1990 F Date Time Provider Department 07/09/22 12:30 PM NEHEMIAS SUAREZ PTMDRG Date Time Provider Department Center 07/09/2022 12:30 PM [id number], SCOTT PTMDRG [facility] Reason for Visit: Physical Therapy [503] [...] one time only. Placed September 2020 Normal [facility] CNTHERAPYon 07-02-2022 CNTHERAPY OT/PT/Speech Visit (PTMDRG) HANNAH HENDRICKS ([id number]) 1990 F Date Time Provider Department 07/02/22 1:45 PM JULIANO URIAS PTMDRG Date Time Provider Department [place] 07/02/2022 1:45 PM [id number], SUSAN PTMDRG [facility] Reason for Visit: Physical Therapy [503] [...] route one time only. Placed September 2020 [facility] CNTHERAPYon 06-25-2022 CNTHERAPY OT/PT/Speech Visit (PTMDRG) HANNAH HENDRICKS ([id number]) 1990 F Date Time Provider Department 06/25/22 4:30 PM NEHEMIAS SUAREZ PTMDRG Date Time Provider Department Center 06/25/2022 4:30 PM [id number], SCOTT PTMDRG [facility] Reason for Visit: Physical Therapy [503] [...] route one time only. Placed September 2020 [facility] CNTHERAPYon 06-18-2022 CNTHERAPY OT/PT/Speech Visit (PTMDRG) HANNAH HENDRICKS ([id number]) 1990 F Date Time Provider Department 06/18/22 12:30 PM NEHEMIAS SUAREZ PTMDRG Date Time Provider Department Center 06/18/2022 12:30 PM [id number], SCOTT PTMDRG [facility] Reason for Visit: PT Progress Note [9926] Primary Visit Diagnosis:Chronic bilateral low back pain with right-sided sciatica [M54.41, G89.29] Allergies As of Date: 06/18/2022 Noted Allergy Reaction PENICILLINS 10/31/2012 4 - Hives SHELLFISH 10/31/2012 7 - Swelling 12 - Shortness of Breath VANCOMYCIN 12/19/2021 9 - Itching Date Reviewed: 04/04/2022 Reviewed by: Radha Garciao - Fully Assessed Prescriptions as of 06/18/2022 [...] route one time only. Placed September 2020 [facility] CNTHERAPYon 06-11-2022 CNTHERAPY OT/PT/Speech Visit (PTMDRG) HANNAH HENDRICKS ([id number]) 1990 F Date Time Provider Department 06/11/22 12:15 PM JULIANO URIAS PTMDRG Date Time Provider Department Center 06/11/2022 12:15 PM [id number], SUSAN PTMDRG [facility] Reason for Visit: Physical Therapy [503] [...] route one time only. Placed September 2020 [facility] CNTHERAPYon 06-04-2022 CNTHERAPY OT/PT/Speech Visit (PTMDRG) HANNAH HENDRICKS ([id number]) 1990 F Date Time Provider Department 06/04/22 12:15 PM JULIANO URIAS PTMDRG Date Time Provider Department [place] 06/04/2022 12:15 PM [id number], SUSAN PTMDRG [facility] Reason for Visit: Physical Therapy [503] [...] one time only. Placed September 2020 Normal [facility] CNTHERAPYon 05-30-2022 CNTHERAPY OT/PT/Speech Visit (PTMDRG) HANNAH HENDRICKS ([id number]) 1990 F Date Time Provider Department 05/30/22 12:30 PM NEHEMIAS SUAREZ PTMDRG Date Time Provider Department Center 05/30/2022 12:30 PM [id number], SCOTT PTMDRG [facility] Reason for Visit: Physical Therapy [503] Primary Visit Diagnosis:Chronic bilateral low back pain with right-sided sciatica [M54.41, G89.29] Allergies As of Date: 05/30/2022 Noted Allergy Reaction PENICILLINS 10/31/2012 4 - Hives SHELLFISH 10/31/2012 7 - Swelling 12 - Shortness of Breath VANCOMYCIN 12/19/2021 9 - Itching Date Reviewed: 04/04/2022 Reviewed by: Radha Schaffer - Fully Assessed Prescriptions as of 05/30/2022 [...] one time only. Placed September 2020 Normal [facility] CNTHERAPYon 05-21-2022 CNTHERAPY OT/PT/Speech Visit (PTMDRG) HANNAH HENDRICKS ([id number]) 1990 F Date Time Provider Department 05/21/22 1:15 PM NEHEMIAS SUAREZ PTMDRG Date Time Provider Department [place] 05/21/2022 1:15 PM [id number], SCOTT PTMDRG [facility] Reason for Visit: PT Progress Note [1596] Primary Visit Diagnosis:Chronic bilateral low back pain with right-sided sciatica [M54.41, G89.29] Allergies As of Date: 05/21/2022 Noted Allergy Reaction PENICILLINS 10/31/2012 4 - Hives SHELLFISH 10/31/2012 7 - Swelling 12 - Shortness of Breath VANCOMYCIN 12/19/2021 9 - Itching Date Reviewed: 04/04/2022 Reviewed by: Radha Solis Mucurio - Fully Assessed Prescriptions as of 05/21/2022 [...] one time only. Placed September 2020 Normal [facility] 04-04-2022 [facility] Office Visit (NSFRVW ) HANNAH HENDRICKS ([id number]) 1990 F Date Time Provider Department 04/04/22 [...] Oriented x3 PERRL FS Motor: UE D 08/17, B 5/5, T 5/5, G 5/5, HI [...] Order(s):CONSULT TO PHYSICAL THERAPY [9032] Order #: [id number]: 1 FUTURE Prescriptions as of 04/06/2022 - [...] for Encounter Date Provider Department Center 04/04/2022 [id number], GHAI (more content not included)... [facility] ANES POSTPROC EVALon 022 ANES POSTPROC EVAL HNO ID: [id number] Author: Lisette Tarango MD Service: Anesthesiology Author Type: Anesthesiologist Type: Anesthesia Postprocedure Evaluation Filed: 03/20/2022 2:24 PM Note Text: POST ANESTHESIA EVALUATION NOTE : 1990 Procedure Summary Date: 03/20/22 Room / Location: [place] [address] / [place] Anesthesia Start: 1207 Anesthesia Stop: 1346 Procedure: LAMINECTOMY DISCECTOMY LUMBAR LEVEL 1 (Right: Spine Lumbar) Diagnosis: Spinal stenosis of lumbar region with neurogenic claudication (Spinal stenosis of lumbar region with neurogenic claudication [M48.062]) Surgeons: Konstantin Krikland MD Responsible Provider: Lisette Tarango MD Anesthesia [...] March 20, 2022 TIME: 2:24 PM CSN: [id number] [facility] ANES PRE-OPon 03-20-2022 [facility] PRE-OP HNO ID: [id number] Author: Mark Chavez MD Service: Anesthesiology Author Type: Anesthesiologist Type: Anesthesia Preprocedure Evaluation Filed: 03/20/2022 11:36 AM Note Text: ANESTHESIOLOGY DAY OF SURGERY NOTE : 1990 Procedure Information Date/Time: 03/20/22 1225 Procedure: LAMINECTOMY DISCECTOMY LUMBAR LEVEL 1 (Right: Spine Lumbar) - Redo right L4-5 microdiscectomy Location: [facility] [place] Surgeons: Konstantin Kirkland MD Estimated body mass index is 28.46 kg/m? as calculated from the following: Height as of 03/19/22: 165.1 cm (5' 5"). Weight as of 03/19/22: 77.6 kg (171 [...] obtained within 48 hours of Surgery/Procedure. SIGNATURE: Mark Chavez MD PATIENT NAME: Hannah Hendricks DATE: March 20, 2022 TIME: 11:36 AM CSN: [id number] [facility] BRIEF OP NOTon 03-20-2022 BRIEF OP NOT HNO ID: [id number] Author: Konstantin Kirkland MD Service: Neurosurgery Author Type: Physician Type: Brief Op Note Filed: 03/20/2022 1:20 PM Note Text: BRIEF OPERATIVE / PROCEDURE NOTE LOG ID: [id number] SURGERY/PROCEDURE DATE: 03/20/2022 INCISION/PROCEDURE START TIME: 12:29 PM INCISION CLOSE/PROCEDURE END TIME: 1:14 PM SURGEON(S)/PROCEDURAL IST(S) AND FULL STACK WEB DEVELOPER(S): Surgeon(s) and Role: * Konstantin Kirkland MD [...] DATE: March 20, 2022 TIME: 1:06 PM [facility] HCG Preg Ur Qlon 03-20-2022 HCG ( test) Ql (U) Negative Normal Negative [facility] Comment on above: Order Comment: Speci men Type: URINE SPECIMENOrdering Facility: [facility] Address: [address] [place], [place] [address] Result Comment: This test is intended to aid in the early detection of . Very dilute urine samples, as indicated by a low specific gravity, may not contain business banking representative levels of hCG. This test detects [...] for . Performed By: #### 2 106-3 ####[facility] LABORATORYCLIA [id number] [address] OF [place] NURSING PROGon 03-20-2022 NURSING PROG HNO ID: [id number] Author: Ryanne Tracy RN Service: ? Author Type: Registered Nurse Type: Nursing Progress Note Filed: 03/20/2022 1:42 PM Note Text: Discharge Status: Patient is Awakening, and is no airway issues. Skin condition was WNL. Transported to recovery room via cart with siderails up. Accompanied by utility service worker and surgeon. [facility] NURSING PROG HNO ID: [id number] Author: Ryanne Tracy RN Service: ? Author [...] of exposure, and providing warm irrigation fluid. [facility] OPERATIVE NOon 03-20-2022 OPERATIVE NO HNO ID: [id number] Author: Konstantin Kirkland MD Service: Neurosurgery Author Type: Physician Type: Operative Report Filed: 03/20/2022 1:20 PM Note Text: OPERATIVE/PROCEDURE REPORT LOG ID: [id number] SURGERY/PROCEDURE DATE: 03/20/2022 INCISION/PROCEDURE START TIME: 12:29 PM INCISION CLOSE/PROCEDURE END TIME: 1:14 PM SURGEON(S)/PROCEDURAL IST(S) AND FULL STACK WEB DEVELOPER(S): Surgeon(s) and Role: * Konstantin Kirkland MD [...] DATE: March 20, 2022 TIME: 1:12 PM [facility] XR VERIFY LEVEL [id number]-MGBKE-[id number] 03-20-2022 XR VERIFY LEVEL L-SPINE-NB * * [...] phone and Skype during the surgical procedure. Gas Pit Worker: PSCB Transcribe Date/Time: Mar 20 2022 1:14P Dictated by : SKY SCHWARTZ MD This examination was interpreted and the report reviewed and electronically signed by: SKY SCHWARTZ MD on Mar 20 2022 1:16PM EST [id number] Normal [facility] Basic metabolic 2000 panelon 03-19-2022 Anion gap [Moles/Vol] 5 mmol/L Low 9-18 [facility] Comment on above: Order Comment: Speci men Type: BLOOD SPECIMENOrdering Facility: [facility] Address: [address] [address] Performed By: #### 2 4321-2 ####[facility] LABORATORYCLIA [id number] [place] [address] [place] Calcium [Mass/Vol] 9.3 mg/dL Normal 8.5-10.2 [facility] Comment on above: Order Comment: Speci men Type: BLOOD SPECIMENOrdering Facility: [facility] Address: [address] [phone] Performed By: #### 2 4321-2 ####[facility] LABORATORYCLIA [id number] [place] [address] [place] Chloride [Moles/Vol] 103 mmol/L Normal 97-105 [facility] Comment on above: Order Comment: Speci men Type: BLOOD SPECIMENOrdering Facility: [facility] Address: [address] [phone] Performed By: #### 2 4321-2 ####[facility] LABORATORYCLIA [id number] [address] [place], [place] [address] [place] CO2 [Moles/Vol] 29 mmol/L Normal 22-30 [facility] Comment on above: Order Comment: Speci men Type: BLOOD SPECIMENOrdering Facility: [facility] Address: [address] [place] [address] Performed By: #### 2 4321-2 ####[facility] LABORATORYCLIA [id number] [place] [address] [place] Creatinine [Mass/Vol] 0.68 mg/dL Normal 0.58-0.96 [facility] Comment on above: Order Comment: Speci men Type: BLOOD SPECIMENOrdering Facility: [facility] Address: [address] [place] [address] Performed By: #### 2 4321-2 ####[facility] LABORATORYCLIA [id number] [address] STATES OF [place] ESTIMATED GLOMERULAR FILTRATION RATE 120 mL/min/1.73m??? Normal >=60 [facility] Comment on above: Order Comment: Speci men Type: BLOOD SPECIMENOrdering Facility: [facility] Address: [address] [place] [address] Result Comment: Vickie mated Glomerular Filtration Rate [...] actual GFR. Performed By: #### 2 4321-2 ####[facility] LABORATORYCLIA [id number] [place] [id number] [place] Glucose [Mass/Vol] 90 mg/dL Normal 74-99 [facility] Comment on above: Order Comment: Speci men Type: BLOOD SPECIMENOrdering Facility: [facility] Address: [address] [place] [phone] Result Comment: The [place] Diabetes Association (ADA) provides guidance for cutoff [...] Standards of Medical Care in Diabetes 2016, [place] [employer]. Diabetes Care. 2016.39(Suppl 1). Performed By: #### 2 4321-2 ####[facility] LABORATORYCLIA [id number] [place] [address] [place] Potassium [Moles/Vol] 4.1 mmol/L Normal 3.7-5.1 [facility] Comment on above: Order Comment: Speci men Type: BLOOD SPECIMENOrdering Facility: [facility] Address: [address] [place] [address] Performed By: #### 2 4321-2 ####[facility] LABORATORYCLIA [id number] [place] [address] [place] Sodium [Moles/Vol] 137 mmol/L Normal 136-144 [facility] Comment on above: Order Comment: Speci men Type: BLOOD SPECIMENOrdering Facility: [facility] Address: [address] [phone] Performed By: #### 2 4321-2 ####G[facility] LABORATORYCLIA [id number] [place] [address] [place] Urea nitrogen [Mass/Vol] 17 mg/dL Normal 7-21 [facility] Comment on above: Order Comment: Speci men Type: BLOOD SPECIMENOrdering Facility: [facility] Address: [address] [place] [address] Performed By: #### 2 4321-2 ####[facility] LABORATORYCLIA [id number] [address] STATES OF [facility] Anion gap [Moles/Vol] 5 mmol/L Low 9 - 18 mmol/L [facility] Calcium [Mass/Vol] 9.3 mg/dL 8.5 - 10. 2 mg/dL [facility] Chloride [Moles/Vol] 103 mmol/L 97 - 10 5 mmol/L [facility] CO2 [Moles/Vol] 29 mmol/L 22 - 30 mmol/L [facility] Creatinine [Mass/Vol] 0.68 mg/dL 0.58 - 0.96 mg/dL [facility] Estimated Glomerular Filtration Rate 120 mL/min/1.73m >=60 mL/min/1.73m [facility] Glucose [Mass/Vol] 90 mg/dL 74 - 99 mg/dL [facility] Potassium [Moles/Vol] 4.1 mmol/L 3.7 - 5.1 mmol/L [facility] Sodium [Moles/Vol] 137 mmol/L 136 - 144 mmol/L [facility] Urea nitrogen [Mass/Vol] 17 mg/dL 7 - 21 mg/d L [facility] CBC W Auto Differential pane l (Bld)on 03-19-2022 Basophils (Bld) [#/Vol] 0.04 10*3/uL Normal <0.11 [facility] Comment on above: Order Comment: Speci men Type: BLOOD SPECIMENOrdering Facility: [facility] Address: [address] Performed By: #### 5 7021-8 ####GNO[facility] LABORATORYCLIA [id number] [place] [address] [place] [facility] Basophils/100 WBC (Bld) 0.6 % Normal [facility] Comment on above: Order Comment: Speci men Type: BLOOD SPECIMENOrdering Facility: [facility] Address: [address] [address] Performed By: #### 5 7021-8 ####[facility] LABORATORYCLIA [id number] [address] [place], [place] [address] [place] Differential cell count method Nom (Bld) Auto Normal [facility] Comment on above: Order Comment: Speci men Type: BLOOD SPECIMENOrdering Facility: [facility] Address: [address] [place] [address] Performed By: #### 5 7021-8 ####[facility] LABORATORYCLIA [id number] [place] [address] [place] Eosinophils (Bld) [#/Vol] 0.73 10*3/uL High <0.46 [facility] Comment on above: Order Comment: Speci men Type: BLOOD SPECIMENOrdering Facility: [facility] Address: [address] [place] [address] Performed By: #### 5 7021-8 ####[facility] LABORATORYCLIA [id number] [place] [address] [place] Eosinophils/100 WBC (Bld) 10.0 % Normal [facility] Comment on above: Order Comment: Speci men Type: BLOOD SPECIMENOrdering Facility: [facility] Address: [address] [place] [address] Performed By: #### 5 7021-8 ####[facility] LABORATORYCLIA [id number] [address] [place] Erythrocyte distribution width (RBC) [Ratio] 11.8 % Normal 11.5-15.0 [facility] Comment on above: Order Comment: Speci men Type: BLOOD SPECIMENOrdering Facility: [facility] Address: [address] [place] [address] Performed By: #### 5 7021-8 ####[facility]NO[facility] LABORATORYCLIA [id number] [place] [address] [place] Hematocrit (Bld) [Volume fraction] 41.7 % Normal 36.0-46.0 [facility] Comment on above: Order Comment: Speci men Type: BLOOD SPECIMENOrdering Facility: [facility] Address: [address] [address] Performed By: #### 5 7021-8 ####[facility] LABORATORYCLIA [id number] [address] [place] Hemoglobin (Bld) [Mass/Vol] 13.5 g/dL Normal 11.5-15.5 [facility] Comment on above: Order Comment: Speci men Type: BLOOD SPECIMENOrdering Facility: [facility] Address: [address] [address] Performed By: #### 5 7021-8 ####G[facility] LABORATORYCLIA [id number] [place] [address] [place] Immature granulocytes (Bld) [#/Vol] 10*3/uL Normal <0.10 [facility] Comment on above: Order Comment: Speci men Type: BLOOD SPECIMENOrdering Facility: [facility] Address: [address] [address] Performed By: #### 5 7021-8 ####G[facility] LABORATORYCLIA [id number] [place] [address] [place] Immature granulocytes/100 WBC (Bld) 0.1 % Normal [facility] Comment on above: Order Comment: Speci men Type: BLOOD SPECIMENOrdering Facility: [facility] Address: [address] Performed By: #### 5 7021-8 ####GNO[facility] LABORATORYCLIA [id number] [place] [address] [place] Lymphocytes (Bld) [#/Vol] 2.89 10*3/uL Normal 1.00-4.00 [facility] Comment on above: Order Comment: Speci men Type: BLOOD SPECIMENOrdering Facility: [facility] Address: [address] Performed By: #### 5 7021-8 ####GNO[facility] LABORATORYCLIA [id number] [address] [place] [address] [place] Lymphocytes/100 WBC (Bld) 39.8 % Normal [facility] Comment on above: Order Comment: Speci men Type: BLOOD SPECIMENOrdering Facility: [facility] Address: [address] [place] [address] Performed By: #### 5 7021-8 ####G[facility] LABORATORYCLIA [id number] [place] [address] [place] MCH (RBC) [Entitic mass] 32.1 pg Normal 26.0-34.0 [facility] Comment on above: Order Comment: Speci men Type: BLOOD SPECIMENOrdering Facility: [facility] Address: [address] [place] [address] Performed By: #### 5 7021-8 ####[facility] LABORATORYCLIA [id number] [place] [address] [place] MCHC (RBC) [Mass/Vol] 32.4 g/dL Normal 30.5-36.0 [facility] Comment on above: Order Comment: Speci men Type: BLOOD SPECIMENOrdering Facility: [facility] Address: [address] [place] [address] Performed By: #### 5 7021-8 ####GNO[facility] LABORATORYCLIA [id number] [place] [address] [place] MCV (RBC) [Entitic vol] 99.3 fL Normal 80.0-100.0 L [facility] Comment on above: Order Comment: Speci men Type: BLOOD SPECIMENOrdering Facility: [facility] Address: [address] [place] [address] Performed By: #### 5 7021-8 ####[facility] LABORATORYCLIA [id number] [place] [address] [place] Monocytes (Bld) [#/Vol] 0.64 10*3/uL Normal <0.87 [facility] Comment on above: Order Comment: Speci men Type: BLOOD SPECIMENOrdering Facility: [facility] Address: [address] [address] Performed By: #### 5 7021-8 ####GNO[facility] LABORATORYCLIA [id number] [place] [address] [place] Monocytes/100 WBC (Bld) 8.8 % Normal [facility] Comment on above: Order Comment: Speci men Type: BLOOD SPECIMENOrdering Facility: [facility] Address: [address] [address] Performed By: #### 5 7021-8 ####GNO[facility] LABORATORYCLIA [id number] [place] [address] [place] Neutrophils (Bld) [#/Vol] 2.96 10*3/uL Normal 1.45-7.50 [facility] Comment on above: Order Comment: Speci men Type: BLOOD SPECIMENOrdering Facility: [facility] Address: [address] [address] Performed By: #### 5 7021-8 ####G[facility] LABORATORYCLIA [id number] [address] [place] Neutrophils/100 WBC (Bld) 40.7 % Normal [facility] Comment on above: Order Comment: Speci men Type: BLOOD SPECIMENOrdering Facility: [facility] Address: [address] Performed By: #### 5 7021-8 ####GNO[facility] LABORATORYCLIA [id number] [place] [address] [place] Nucleated RBC (Bld) [#/Vol] 10*3/uL Normal <0.01 [facility] Comment on above: Order Comment: Speci men Type: BLOOD SPECIMENOrdering Facility: [facility] Address: [address] Performed By: #### 5 7021-8 ####GNO[facility]IC[facility] LABORATORYCLIA [id number] [address] [place], [place] [address] [place] Nucleated RBC/100 WBC (Bld) [Ratio] 0.0 /100 WBC Normal [facility] Comment on above: Order Comment: Speci men Type: BLOOD SPECIMENOrdering Facility: [facility] Address: [address] [place] [address] Performed By: #### 5 7021-8 ####GNO[facility] LABORATORYCLIA [id number] [address] [place], [place] [address] [place] Platelet mean volume (Bld) [Entitic vol] 9.3 fL Normal 9.0-12.7 [facility] Comment on above: Order Comment: Speci men Type: BLOOD SPECIMENOrdering Facility: [facility] Address: [address] [place] [address] Performed By: #### 5 7021-8 ####GNO[facility]IC[facility] LABORATORYCLIA [id number] [address] [place] [address] [place] Platelets (Bld) [#/Vol] 373 10*3/uL Normal 150-400 [facility] Comment on above: Order Comment: Speci men Type: BLOOD SPECIMENOrdering Facility: [facility] Address: [address] [place] [address] Performed By: #### 5 7021-8 ####GNOSTIC[facility] LABORATORYCLIA [id number] [place] [address] [place] RBC (Bld) [#/Vol] 4.20 10*6/uL Normal 3.90-5.20 [facility] Comment on above: Order Comment: Speci men Type: BLOOD SPECIMENOrdering Facility: [facility] Address: [address] [place] [address] Performed By: #### 5 7021-8 ####GNOSTIC[facility] LABORATORYCLIA [id number] [place] [address] [place] WBC (Bld) [#/Vol] 7.27 10*3/uL Normal 3.70-11.00 [facility] Comment on above: Order Comment: Speci men Type: BLOOD SPECIMENOrdering Facility: [facility] Address: [place] [address] Performed By: #### 5 7021-8 ####GNOSTICISM LABORATORYCLIA [id number] [address] OF [facility] Basophils (Bld) [#/Vol] 0.04 10*3/uL <0.11 k/uL [facility] Basophils/100 WBC (Bld) 0.6 % [facility] Differential cell count method Nom (Bld) Auto [facility] Eosinophils (Bld) [#/Vol] 0.73 10*3/uL High <0.46 k/uL [facility] Eosinophils/100 WBC (Bld) 10.0 % [facility] Erythrocyte distribution width (RBC) [Ratio] 11.8 % 11.5 - 15.0 % [facility] Hematocrit (Bld) [Volume fraction] 41.7 % 36.0 - 46.0 % [facility] Hemoglobin (Bld) [Mass/Vol] 13.5 g/dL 11.5 - 15.5 g/dL [facility] Immature granulocytes (Bld) [#/Vol] <0.10 k/uL [facility] Immature granulocytes/100 WBC (Bld) 0.1 % [facility] Lymphocytes (Bld) [#/Vol] 2.89 10*3/uL 1.00 - 4.00 k/uL [facility] Lymphocytes/100 WBC (Bld) 39.8 % [facility] MCH (RBC) [Entitic mass] 32.1 pg 26.0 - 34.0 pg [facility] MCHC (RBC) [Mass/Vol] 32.4 g/dL 30.5 - 36.0 g/dL [facility] MCV (RBC) [Entitic vol] 99.3 fL 80.0 - 100.0 fL [facility] Monocytes (Bld) [#/Vol] 0.64 10*3/uL <0.87 k/uL [facility] Monocytes/100 WBC (Bld) 8.8 % [facility] Neutrophils (Bld) [#/Vol] 2.96 10*3/uL 1.45 - 7.50 k/uL [facility] Neutrophils/100 WBC (Bld) 40.7 % [facility] Nucleated RBC (Bld) [#/Vol] <0.01 k/uL [facility] Nucleated RBC/100 WBC (Bld) [Ratio] 0.0 /100 WBC [facility] Platelet mean volume (Bld) [Entitic vol] 9.3 fL 9.0 - 12.7 fL [facility] Platelets (Bld) [#/Vol] 373 10*3/uL 150 - 400 k /uL [facility] RBC (Bld) [#/Vol] 4.20 10*6/uL 3.90 - 5.2 0 m/uL [facility] WBC (Bld) [#/Vol] 7.27 10*3/uL 3.70 - 11. 00 k/uL [facility] TYPE AND SCREEN,30 DAYon ABO A [facility] HIstorical Ab Scr Status Negative [facility] Rh Nom (Bld) Positive [facility] ABO A [facility] Comment on above: Order Comment: Speci men Type: BLOOD SPECIMEN [facility]ing [facility] Address: [address] [place] [address] Performed By: #### T SCR30 #### [facility] [place] [id number] [address] [place] [address] HISTORICAL AB SCR STATUS Negative [facility] Comment on above: Order Comment: Speci men Type: BLOOD SPECIMEN Ordering [facility]: [facility] Address: [address] [place] [address] Performed By: #### T SCR30 #### [facility] CLIA [id number] [address] [place] [address] Rh Nom (Bld) Positive [facility] Comment on above: Order Comment: Speci men Type: BLOOD SPECIMEN Ordering Facility: [facility] Address: [address] [address] Performed By: #### T SCR30 #### [facility] CLIA [id number] [address] [place], [place] [address] [address] [facility] Gallo 03-16-2022 CNPN Telephone (NEADFV) HANNAH HENDRICKS ([id number]) 1990 F Date Time Provider Department 03/16/22 KONSTANTIN KIRKLAND NEBRUCEFV During your visit today, we recorded the following information about you: Karen Long 03/16/2022 1:33 PM Signed Patient at [phone] is requesting a call back Re: MRI results. She is quite upset. Italia Ackerman RN 03/16/2022 2:10 PM Signed Will forward for review. Italia Ackerman RN 03/16/2022 2:[address] Kirkland spoke with patient. Will be having surgery on 03/20/22. Karen Long 03/16/2022 3:34 PM Signed Patient at [phone] is requesting a call back. She has [...] Encounter Status:Closed by ITALIA ACKERMAN on 03/16/22 [facility] MRI LUMBAR SPINE WO Chel 03-16-2022 [facility] Gallo 03-12-2022 MANDEEPN Telephone (NEADFV) HANNAH HENDRICKS ([id number]) 1990 F Date Time Provider Department 03/12/22 KONSTANTIN KIRKLAND During your visit today, we recorded the following information about you: Darlene Monge [facility] 03/12/2022 8:35 AM Signed Patients first day working and states she is in extreme pain, feels she cannot take it, the top of her right leg and her lower back is stiff, states pain is 7 out of 10. 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 Will forward for review. Radha Dickens [...] tabletRfl: 0 MRI LUMBAR SPINE WO IVCON [[id number]] Order #: [id number] FUTURE Prescriptions as of 03/12/2022 - methylPREDNISolone [...] Encounter Status:Closed by KELSY WATERMAN on 03/12/22 [facility] ANES POSTPROC EVALon 022 ANES POSTPROC EVAL HNO ID: [id number] Author: Lisette Tarango MD Service: Anesthesiology Author Type: Anesthesiologist Type: Anesthesia Postprocedure Evaluation Filed: 12/19/2021 10:07 AM Note Text: POST ANESTHESIA EVALUATION NOTE : 1990 Procedure Summary Date: 12/19/21 Room / Location: OR09 / [facility] Anesthesia Start: 739 Anesthesia Stop: 921 [...] December 19, 2021 TIME: 10:07 AM CSN: [id number] [facility] ANES PRE-OPon 12-19-2021 ANES PRE-OP HNO ID: [id number] Author: Viridiana Brower MD Service: Anesthesiology Author Type: Anesthesiologist Type: Anesthesia Preprocedure Evaluation Filed: 12/19/2021 7:14 AM Note Text: ANESTHESIOLOGY DAY OF SURGERY NOTE : 1990 Procedure Information Date/Time: 12/19/21 0730 Procedure: LAMINECTOMY DISCECTOMY LUMBAR LEVEL 1 (Right: Spine Lumbar) - Right L4-5 microdiscectomy Location: [place] [address] / [facility] Surgeons: Konstantin Kirkland MD Estimated body mass index is 28.99 kg/m? as calculated from the following: Height as of 12/06/21: 165.1 cm (5' 5"). Weight as of 12/06/21: 79 kg (174 [...] none. Vitals Value Taken Time BP 128/85 12/19/21 0614 Pulse Resp 18 12/19/21 0614 Temp 36.5 ?C (97.7 ?F) 12/19/21 0614 SpO2 98 % 12/19/21 0614 Facility-Administered Medications as of 12/19/2021 Medication Dose [...] December 19, 2021 TIME: 7:14 AM CSN: [id number] [facility] BRIEF OP NOTon 12-19-2021 BRIEF OP NOT HNO ID: [id number] Author: Demetrice Orantes MD Service: Neurosurgery Author Type: Resident Type: Brief Op Note Filed: 12/19/2021 9:14 AM Note Text: BRIEF OPERATIVE / PROCEDURE NOTE LOG ID: [id number] SURGERY/PROCEDURE DATE: 12/19/2021 INCISION/PROCEDURE START TIME: 8:05 AM INCISION CLOSE/PROCEDURE END TIME: 9:06 AM SURGEON(S)/PROCEDURAL IST(S) AND FULL STACK WEB DEVELOPER(S): Surgeon(s) and Role: * Konstantin Kirkland MD - Primary * Demetrice Orantes MD - Resident - Assisting No Additional Staff SURGERY/PROCEDURE(S): Right L4/5 microdiscectomy ANESTHESIA: General FINDINGS: Appropriate decompression ESTIMATED BLOOD LOSS: 25 mls SPECIMENS: None COMPLICATIONS: None PRE-OP/PRE-PROCEDURE DIAGNOSIS: Right L4/5 herniated disc POST-OP/POST-PROCEDUR E DIAGNOSIS: Right L4/5 herniated disc SIGNATURE: Konstantin Kirkland MD PATIENT NAME: Hannah Hendricsk DATE: December 19, 2021 TIME: 8:49 AM [facility] HCG Preg Ur Qlon 12-19-2021 HCG ( test) Ql (U) Negative Normal Negative [facility] Comment on above: Order Comment: Speci men Type: URINE SPECIMENOrdering Facility: [facility] Address: [facility] [place] [address] Result Comment: This test is intended to aid in the early detection of . Very dilute urine samples, as indicated by a low specific gravity, may not contain business banking representative levels of hCG. This test detects [...] for . Performed By: #### 2 106-3 ####GNOSTICISM LABORATORYCLIA [id number] [address] NURSING PROGon 12-19-2021 NURSING PROG HNO ID: [id number] Author: Ryanne Tracy RN Service: ? Author Type: Registered Nurse Type: Nursing Progress Note Filed: 12/19/2021 9:18 AM Note Text: Discharge Status: Patient is Drowsy, and is no airway issues. Skin condition was WNL. Transported to recovery room via cart with siderails up. Accompanied by utility service worker and surgeon. [facility] NURSING PROG HNO ID: [id number] Author: Ryanne Tracy RN Service: ? Author [...] of exposure, and providing warm irrigation fluid. [facility] OPERATIVE NOon 12-19-2021 OPERATIVE NO HNO ID: [id number] Author: Konstantin Kirkland MD Service: Neurosurgery Author Type: Physician Type: Operative Report Filed: 12/19/2021 11:55 AM Note Text: OPERATIVE/PROCEDURE REPORT LOG ID: [id number] SURGERY/PROCEDURE DATE: 12/19/2021 INCISION/PROCEDURE START TIME: 8:05 AM INCISION CLOSE/PROCEDURE END TIME: 9:06 AM SURGEON(S)/PROCEDURAL IST(S) AND FULL STACK WEB DEVELOPER(S): Surgeon(s) and Role: * Konstantin Kirkland MD [...] DATE: December 19, 2021 TIME: 8:54 AM [facility] XR LUMBAR SPECIFY 1Von 12-19 XR LUMBAR [...] Variants: None. IMPRESSION: Localization for surgical purposes Gas Pit Worker: PSCAvani Transcribe Date/Time: Dec 19 2021 8:06A Dictated by : HAYDE RONDON MD This examination was interpreted and the report reviewed and electronically signed by: HAYDE RONDON MD on Dec 19 2021 8:07AM EST [id number] [facility] XR VERIFY LEVEL [id number] 12-19-2021 XR VERIFY LEVEL L-SPINE-NB * * *Final Report* * * DATE OF EXAM: Dec 19 2021 8:16AM MISAEL [id number] - XR VERIFY LEVEL L-SPINE-NB / PROCEDURE REASON: Lumbar disc herniation * * * * Physician Interpretation * * * * [id number] TECHNIQUE: Single lateral image of the lumbar [...] IMPRESSION: OPERATIVE ASSESSMENT COMMUNICATION: Communicated with KONSTANTIN WOLFEROCCO on 12/19/2021 8:22 AM via verbal communication. Gas Pit Worker: RAYSA Transcribe Date/Time: Dec 19 2021 8:19A Dictated by : HAYDE RONDON MD This examination was interpreted and the report reviewed and electronically signed by: HAYDE RONDON MD on Dec 19 2021 8:22AM EST [id number] [facility] Basic metabolic 2000 panelon 12-06-2021 Anion gap [Moles/Vol] 9 mmol/L 9 - 18 mmol/L [facility] Calcium [Mass/Vol] 9.9 mg/dL 8.5 - 10. 2 mg/dL [facility] Chloride [Moles/Vol] 103 mmol/L 97 - 10 5 mmol/L [facility] CO2 [Moles/Vol] 28 mmol/L 22 - 30 mmol/L [facility] Creatinine [Mass/Vol] 0.72 mg/dL 0.58 - 0.96 mg/dL [facility] Estimated Glomerular Filtration Rate 116 mL/min/1.73m >=60 mL/min/1.73m [facility] Glucose [Mass/Vol] 87 mg/dL 74 - 99 mg/dL [facility] Potassium [Moles/Vol] 4.3 mmol/L 3.7 - 5.1 mmol/L [facility] Sodium [Moles/Vol] 140 mmol/L 136 - 144 mmol/L [facility] Urea nitrogen [Mass/Vol] 11 mg/dL 7 - 21 mg/d L [facility] CBC W Auto Differential pane l (Bld)on 12-06-2021 Abs Immature Gran <0.10 k/uL [facility] Basophils (Bld) [#/Vol] 0.04 10*3/uL <0.11 k/uL [facility] Basophils/100 WBC (Bld) 0.7 % [facility] Differential cell count method Nom (Bld) Auto [facility] Eosinophils (Bld) [#/Vol] 0.60 10*3/uL High <0.46 k/uL [facility] Eosinophils/100 WBC (Bld) 10.7 % [facility] Erythrocyte distribution width (RBC) [Ratio] 11.2 % Low 11.5 - 15.0 % [facility] Hematocrit (Bld) [Volume fraction] 37.1 % 36.0 - 46.0 % [facility] Hemoglobin (Bld) [Mass/Vol] 12.7 g/dL 11.5 - 15.5 g/dL [facility] Immature Gran % 0.2 % [facility] Lymphocytes (Bld) [#/Vol] 2.07 10*3/uL 1.00 - 4.00 k/uL [facility] Lymphocytes/100 WBC (Bld) 37.0 % [facility] MCH (RBC) [Entitic mass] 33.3 pg 26.0 - 34.0 pg [facility] MCHC (RBC) [Mass/Vol] 34.2 g/dL 30.5 - 36.0 g/dL [facility] MCV (RBC) [Entitic vol] 97.4 fL 80.0 - 100.0 fL [facility] Monocytes (Bld) [#/Vol] 0.61 10*3/uL <0.87 k/uL [facility] Monocytes/100 WBC (Bld) 10.9 % [facility] Neutrophils (Bld) [#/Vol] 2.26 10*3/uL 1.45 - 7.50 k/uL [facility] Neutrophils/100 WBC (Bld) 40.5 % [facility] Nucleated RBC (Bld) [#/Vol] <0.01 k/uL [facility] Nucleated RBC/100 WBC (Bld) [Ratio] 0.0 /100 WBC [facility] Platelet mean volume (Bld) [Entitic vol] 9.6 fL 9.0 - 12.7 fL [facility] Platelets (Bld) [#/Vol] 321 10*3/uL 150 - 400 k /uL [facility] RBC (Bld) [#/Vol] 3.81 10*6/uL Low 3.90 - 5.2 0 m/uL [facility] WBC (Bld) [#/Vol] 5.59 10*3/uL 3.70 - 11. 00 k/uL [facility] MRI LUMBAR SPINE WO IVCONon 10-05-[address] [facility] [address] Spine Lumbar w/o Contrast on 09-14-2021 CT Spine Lumbar w/o Contrast Exam Date/Time: 09/13/2021 23:08 EDT Reason for Exam: Low back pain, progressive neurologic deficit;Other (please specify) Report IMPRESSION: No acute fracture or traumatic malalignment. L4-L5 and L5-S1 disc bulges with mild canal stenosis and olrx-ix-rddgqgeo left neural foraminal narrowing, most prominent at [...] Gee MD Transcribed by: SAM Technologist: KATARZYNA Márquez [facility] Coding Summary.on 09-14-2021 Coding Summary. CD:[id number] G h0bWw+PGhlYWQ+MY8EMCA oO73loWPvfO0FC0pNJL2H JJHXHAVTIL3OHW0hvNF6K KayU7ZzbnBc MiqhmNYmTU55BEc6NVT9x UfhGQpmkQ6pbYAaY6o4Nk WrGG00rP76ZKzaGZGgEzU 3LjZpbjsgbWFy H3suWhLigENlPrn+PHRhY mxlIHdpZHRoPScxMDAlJy DwmBxnSC5nOc1wURRmAHZ vbGxhcHNlOiBj p7vsYTZpPLxaSE5lqXqoL 4PxsQR0WRUot5l8Vh16aT I+FLHgFYN6ySsyDPntv35 5NkQpi9opXAR1 kIVnEAgrTFK2B03br9O8X BIpIDNhPBO0tPC1lJ4oxE klbzyrS9XyyAGbWfN9KCX 8qFKkkZ0ktTdo pcudlV8fEdv+C43YON6JG AKPEE2UIfo4U6DvWqyofH I+IK28PUReZC24hXUgxDB qx5imoWd7CbAw ZMVxZYO9kZgfWYysh8KwH EDzF93zwZItu3Y7BCJexM gohPKzBgKypPV9lT2zEUx bhqcqw4chaxjn Ewlgs2mtji29vE68M38sQ KvhGZWlZUF9ZHStJHBsmK qumh6vnZ6dIf2+FAoyy0s pj4opeQk7VlVg QNUnyvKmqNsqQUJ2d0CwA o47A4IjjGath3CuArq4qf 10eZTya1Q9iHK9OLvnLCJ dzL5gKKrfXwZ8 RPIwLxNulP67cTNrNSdtP x4biPssjCnlEH0fCXKkuq qxIPMsfV4bLFVwtLUxeFw hGR0aPWScqajw q973ThDeCKR5WOCruWZrS 6JbeH9aGfPpTWLlHCOuT8 YmxRFnMKjcY054WZhxHxD 7CNDwroNaW3Ky JWGngMmeUjM7d5T0Nq5Kr 7CqrsrtIUW4QZybFYT6Kf NdTpNpBrT8Z3KsUtm4QOC jpHquXN8vL7Yx YHBybwgfvcibgMB5SKDbY EFcrW37jFDpGAqeHv5pd0 A6m639KEVbHSPumK59Dm8 udDogMTBwdCBU zT1xaugrf7tjjcrjNpEnJ ICsMLy6WCx0YLTgfZbvGm ZaFJV4XjP3UJY6mYXseZ7 xyTulaildaI6y Oyc+O16pxG7jEAS2LHY9x ibvDPEqceOkLE95GI49N5 RyPjwvdGFibGU+PGRpdiB rgBxeTW5sNxMd x6kqz1MaRKmcO2MhHAFhF SikHlu7NTCdHNO8mAQ5iJ 5hFNTbWCyby9V9jWD8E1C vmwMcvj1yx8ip EHYjBEmaW86rlQFki5R6R KQezJG4INZwxBkpFiVlpK 93Oyc+ILAaaIdgu3EbGpv wr8tnm7nidKd9 PhIrHREyvlXzyWhbZBZ3l 6DtEx07P75vJYoqGTKqDS PuFLBzIRVcqFjzar5wxX7 wIi8+PGNvbCB3 qPN1nT6gOLFhLmJ7MWzbV 500XxRnlBZbAcgal2pse7 fwxRu0LuSbDXQpglSrxKc tBNL5f5DrNy43 Z28pMCpgZBSbOYLtAMBoW IObdRwghe9ztC8sKq3+PC 8ke3wypt38vZ42qHC+PHR qBKX9iXtxKEfr VTIkqF4nKXdyIsH0DCZaX wGqtP93wMIzEXekYi4pkX shiOodLJ6kRNHwmavcz20 4ScZkj0sjKUYz qVKhSWfqFTQ5F63uw8A4U ZVnPFVgRTC6qFD4oU8soR lnbjogbGVmdDsgdmVydGl eGHtnNYuzZ991 IHRvcDsnPlBhdGllbnQgT dPlWIn0D3TnItr5SKDohZ dwZN8rwDNeAXmzJz1saUt blIrsCE8jOFFs elcay666AyYqt0dlBOTgr YTxZBahHTF2N40xk1P8SY GjGYRnQXS0rVF5fQ4ifRy nbjogbGVmdDsg njBitUrhXTevJKeoD198M HRvcDsnPkJpcnRoIERhdG E2NY39JK32fVZpj5A2cSY 9U0DoCUVbotct cbozsRS2IDNxFYHilL96E q0vpPrrMx0qIYVzOBY6ER QazNUjG7IndO3pDgBqATF fVTUcW2MftGDe YWzzC404OIoaQrE0JOMhe xIiD8RcTFHitNblBiF1x0 F9Dc9EQ9W6VN92MV51gUE wd5R6gQF8J9Uv YWAyuhcmvsfffPK8PYQpG IEttK81Gm0qxZuuGu2jQX FrKRT1CUKvdYAfB1YgjZ3 yOiAjMDAwMDAw U4BrrNCnKJnkE085FJmmA qD5GWRvuzZaC1KmQSBvyA kcLaV7r5V3Yx2PNUn9YK9 5RS90iEUym5X8 wML6T5CrFCFslfnwennby VX0JZExXMLppX83Em6pzM aeCu4zMWUwYZM4ZHYywYM aS1XndD1qOnMc XONmAGYeM0PpcBQrNJdwQ 205ORrhFrH0CCObhpMzM0 KdZQKdbCcaMnQ1b2I4Sh7 HKJSyOJ32UFS5 hXH8TX26EI65T5BtHfeap GFibGU+PHRhYmxlIHdpZH RoPScxMDAlJyBzdHlsZT0 dCt9sLAOuWJGc iCtaoCRwZbKeo7cdIRVxJ MaqAS2gvTgdS3ApbAL0QF Byo5j3Gh99Y92uA3EyyYK +UVQuwWK0rZM2 tX0wPdPkGjR1YExbR140N yIxtRPuTfiuq3rqk6sfoO i6VeK3KAYimdIhoLasPUX 6d5DoIp17O51j IHdpZHRoPSIxNSUiIHZhb Mqyfv2kiY2uZl7+PGNvbC N1sMJ7mY6wSkMrQwZ7FSs bO081OmXkqWWm Omniw7lsn6dbgHt4TeFcQ WMivhVaiFwtMAR0b9BqPx 71X7VlwPwbj6OjWgh8th8 2zAUlo7M7aKS0 M5OfSMWwzxwepDSwnMgnD Y3cBKZzyqxsNRElxH6eBX JaW4u1SjPiQbA8KJpoC0Y zfmH5MPDpdBIa OYlkHIG5G15gc9I9UTMmV LHyNRG4dEE5xC4vgCemnq ogbGVmdDsgdmVydGljYWw iWXrlK647TSIb mMlhPDWdaK1qJWVqbNIde IrxWG3wSRPbguiaJerDS5 hBUklBUywgQVNITEVZPC9 5PN41mEWpf8W5 mXJ3N8PbECSwbwlntxewl AJ0RPBvUGSibE38cBFhDN xtTs2un9C0s383BHXdQOZ jxG73Ux7pfUxt ACGmsIUItW6tuszln1acq ehzKgFrGRBgDMe8KQn5OW VghPkdUtTdJEH9WpK3TUF 1vQDfcX5wtRzp xnmysP9lMhj+MTIvMDEvM Cs1MhcjrQB+CUSsYYG9rD lvXBzaWTApqS4nGXPvP0t 3CtJjGzD8OAck K3EpLTWzylwtDt99jZ8nI jWxNbL2CIneW8RqydW7UP XweOWqQIdcPLC3K21wm9B 9NVBySDAgUFM9 oXG7eM1ktAcsekktlXYom DsgdmVydGljYWwtYWxpZ2 42VGXoaGmwNhV6YGdzFYC kAS39DF85gNKf p4T6lFW5F9MwMURtyzeih hklcLC4SGGpPRKkuZ77xV ZcBIizWb2qk4O3d626ZKA cFOMhxN90Xf9a iZbfBCNqrKUXwN7tqsmxm 9plzyqmOhUyZAUqFAg5KW c3EFMvpGtpOmIcQWP2IcM 0JFK6bBIskE2q aOhqtjpkxV8lLik+RmVtY JjzJO38IJ08qZTlt2V0zL E0S0RgARTtsqzqpxveeVM 0XVTdCVDkmT96 hGQbCToeLm4eo9F8r742L GWiLMRcjP92Gx0ogAtuMF IcrDEToN6clfhwy8unjyb gIzAwMDAwMDt0 VHb5CHPupEpcVbQvRUH0H jE3UGN2yHGxhM9jrGfzwk skhX3uPip+UB8iihceitG 6YW58FZ41B2At PjwvdGFibGU+PHRhYmxlI HdpZHRoPScxMDAlJyBzdH oqQI9qJz5sHMIcQWHysWb xhVXlYlWsp3fl YIKtFLqlFM6qnOxvX8Yzy XN0NHKee6d6Ya27N84lM7 JvdXA+HBOugOA8kOD1sG4 vMyMaFfX0WIzi V506ZhVgoZAuVtuel6pwz 6nvmAj4SsNzDMJfjeYyeA etBLE4j9MqLx01I75zVAk pZHRoPSIyMCUi GOAyzCebft8jiY1bYg5+P PChxYM9xSX9hZ2bZpOlEe F1OLsbB710PnUynEJyTlo oV58yO5JdaIB+ JVLhXpk7NZObgZlcPC2jw PHkVXtxBx0cQVY0AmWxDf NeMLqxI7AaIHRsyztdjpx eaLB8XSNdQIPh xC25Qf7zwRpgLv6vTCToX TS1XDUnfMRcT3BvtJ3mFl SbPZDvNUXpG8JopBQlGPw lX439BMehIyM4 QEKowkMpO0ZjWOLjlLmxG tH3l4N6Xi1RwWqsmRHeSE 5pUhImNYd2I7PxYle3LCG bkWavRH9upEQz WUttDo6xxJyzuMtrYI5iG ROjtunti267TvTgh6vvSP LjlVWtGSbiBFP0D70dg5P 4WQCdQONyUXW7 pLN6wU1fsOyyqbxqzFYfc DsgdmVydGljYWwtYWxpZ2 49LHMgqQptFdFEWcp8X0G yPvx5XZTmdKdu EL5owHCcVWmcXj1fsGqkn EdaWA3sACSlelcxe081Oh Aow7etTPDcoWOyYUrpGJO 3Q47hp5B8PCEj BMLqBMH8vDU5qC9ehWmbs jogbGVmdDsgdmVydGljYW phCSbcA595XUZzmXxlVj0 JDzd9A6DxAqx0 AFLxgUnvNI6uoECcGTmoR n3pdCcjzDrmWW7aLMToat gec323OhNxs2voXBAzlVD lHJzyLAO1L35j t3F2PTZxFHFmIYO2vAS9l M4ojCflvuujoSLbmYizcq GchSolJPktFNdoJ312WKM vcDsnPlBheWVy OjwvdGQ+BC02gi15E3NiF lgkNzx2NJKaJOB7mJK3hR 6eFTVmNXvdl9C2fAJ1S1F ohiAyyc3yd3ie YXBz (more content not included)... [facility] Discharge Instructionson Discharge Instructions [id number]# 1.00CD:127 [facility] ED Clinical Summaryon 2021 ED Clinical Summary [place] [id number] ED Clinical Summary Person Information Name: [facility] Age[facility] 31 Years : 1990 Sex: Female Language: Tamazight PCP: Severiano Wallace III, DO Marital Status: Phone: [phone] Visit Id: Visit Reason: Back pain; BACK [...] 23:57:29 09/13/2021 23:57:29 09/13/2021 23:57:29 ADDRESS: [address] [place] [phone] PHYS DOC NOTES: MEDICAL INFORMATION: Prescriptions Given: New Medications Printed Prescriptions acetaminophen-hydroco done (Porterdale 325 mg-5 mg oral tablet) 1 Tablets [...] 0. PATIENT EDUCATION INFORMATION: Instructions: Back Exercises, Xrjh-ug-Qihb Follow up: With: Address: When: Santana Vidal [address] [place] [address] [address] [facility] In 3 days 09/16/2021 Comments: Take the prednisone daily until you have completed the course you can use the Robaxin, Porterdale as prescribed as needed for pain. Use lidocaine patch daily. Please follow-up with your primary care doctor and orthopedic for further evaluation management. With: Address: When: Severiano Wallace [address] [place] [address], [facility] [place] [address] Business (1) In 3 days DIAGNOSIS: Sciatica [facility] ED Note-Nursingon 09-14-2021 ED Note-Nursing pt given d/c instructions and educated on importance of follow up. pt educated on new medications. pt verbalized understanding of instructions and readiness for d/c. pt walked self ambulatory to waiting room in stable condition. pt driven home by boyfriend. [facility] ED Note-Physicianon 09-15-19 ED Note-Physician Basic [...] degenerative changes at L4-L5. Patient is given Porterdale, Lidoderm, Norflex in addition to prednisone in [...] Given Lidoderm 5% Patch, 1 patch(es), TransDermal Porterdale 5/325 Tab, 1 tab(s), Oral orphenadrine 30 mg/mL Inj, 60 mg, IntraMuscular predniSONE 20 mg Tab, 60 mg, Oral Disposition Plan Discharge Prescription List Prescriptions Lidoderm 5% topical film, 1 patch(es), Topical, Daily Porterdale 325 mg-5 mg oral tablet, 1 tab(s), Oral, q6hr, PRN predniSONE 50 mg Tab, 50 mg= 1 tab(s), Oral, Daily Robaxin 500 mg Tab, 500 mg= 1 tab(s), Oral, TID Follow-up With When Contact Information Santana Vidal In 3 days 09/16/2021 EDT [address] [facility] [place] [address]- Business (1) Additional Instructions: Take the prednisone daily until you have completed the course you can use the Robaxin, Porter[place] as prescribed as nee (more content not included)... [facility] Comment on above: Result Comment: Elec tronically Signed By: Moon Manuel DO.mayra\\Date and Time Signed: 09/14/21 05:27 EDT ED [...] the exerc (more content not included)... [facility] ED Patient Summaryon 022 ED Patient Summary [address] [address] Patient Discharge Instructions Person Information Name: HANNAH HENDRICKS Age: 31 Years Arrival Date: 09/13/2021 20:29:38 Discharge Diagnosis: Sciatica Primary Care Physician: Severiano Wallace III, DO Provider Information Primary Provider: Moon Manuel DO Advanced Shaker Plate Operator:None The exam and treatment you received in the Emergency Department were for an urgent problem and are not intended as complete care. It is important that you follow up with a doctor, nurse practitioner, or physician?s ob gyn physician assistant for ongoing care. If your symptoms become worse or you do not improve as expected and you are unable to reach your usual health care provider, you should return to the Emergency Department. We are available 24 hours a day. HANNAH HENDRICKS has been given the following list of patient education materials, prescriptions and follow-up instructions: Follow-up Instructions: With: Address: When: Santana Vidal [address] [place] [address] Business (1) In 3 days 09/16/2021 Comments: Take the prednisone daily until you have completed the course you can use the Robaxin, Porter[place] as prescribed as needed for pain. Use lidocaine patch daily. Please follow-up with your primary care doctor and orthopedic for further evaluation management. With: Address: When: Severiano Wallace [address] [place] [address], [facility] [place] [address] [employer] (1) In 3 days In the event that this physician does not participate in your insurance network, please consult with your insurance company to find a nearby participating provider. Patient Education Materials: Back Exercises, Qqxv-my-Dwsv A MESSAGE TO ALL PATIENTS REGARDING OPIOIDS PRESCRIPTION OPIOIDS: WHAT YOU NEED TO KNOW Prescription opioids can be used to help relieve ptltnwit-uc-yvvvhw pain and are often prescribed following a [...] down the to (more content not included)... [facility] RAD - Preliminary Cat Scan R eporton 09-14-2021 RAD - Preliminary Cat Scan Report [id number]# 1.00CD:127 [facility] U BetaHcg Qualon 09-14-2021 HCG.beta subunit (U) [Moles/Vol] Negative [facility] Comment on above: Performed By: #### [id number] #### [facility] [address] [place] [id number] Consent for Treatmenton Consent for Treatment [id number] .00CD:127 [facility] SEROLOGYOrdered By: Pascale Noe on 09-13-2021 HCG.beta subunit (U) [Moles/Vol] Negative [facility] Vital Signs Date Time Vital Sign Value Performing Clinician Faci lity 01-11-2025 09:59-0400 Body mass index (BMI) [Ratio] 34.7 kg/m2 Dr. Thomas Salinas MD Work Phone: [facility] 01-11-2025 09:59-0400 Body weight 97.[address] Thomas owens MD Work Phone: [facility] 01-11-2025 09:59-0400 Diastolic blood pressure 75 mm[Hg] Dr. Thomas Salinas MD Work Phone: [facility] 01-11-2025 09:59-0400 Systolic blood pressure 118 mm[Hg] Dr. Thomas Salinas MD Work Phone: [facility] 12-28-2024 09:50-0400 Body height 167.[address] Thomas owens MD Work Phone: [facility] 12-28-2024 09:45-0400 Body mass index (BMI) [Ratio] 33.9 kg/m2 Dr. Thomas Salinas MD Work Phone: [facility] 12-28-2024 09:45-0400 Body weight 95.[address] Thomas owens MD Work Phone: [facility] 12-28-2024 09:45-0400 Diastolic blood pressure 72 mm[Hg] Dr. Thomas Salinas MD Work Phone: [facility] 12-28-2024 09:45-0400 Systolic blood pressure 118 mm[Hg] Dr. Thomas Salinas MD Work Phone: [facility] 12-15-2024 09:22-0400 Body height 167.[address] Thomas owens MD Work Phone: [facility] 12-15-2024 09:22-0400 Body mass index (BMI) [Ratio] 33.1 kg/m2 Dr. Thomas Salinas MD Work Phone: [facility] 12-15-2024 09:22-0400 Body weight 93.[address] Thomas owens MD Work Phone: [facility] 12-15-2024 09:22-0400 Diastolic blood pressure 69 mm[Hg] Dr. Thomas Salinas MD Work Phone: [facility] 12-15-2024 09:22-0400 Systolic blood pressure 106 mm[Hg] Dr. Thomas Salinas MD Work Phone: [facility] 12-01-2024 08:19-0400 Body height 167.[address] Thomas owens MD Work Phone: [facility] 12-01-2024 08:19-0400 Body mass index (BMI) [Ratio] 33.3 kg/m2 Dr. Thomas Salinas MD Work Phone: [facility] 12-01-2024 08:19-0400 Body weight 93.[address] Thomas owens MD Work Phone: [facility] 12-01-2024 08:19-0400 Diastolic blood pressure 70 mm[Hg] Dr. Thomas Salinas MD Work Phone: [facility] 12-01-2024 08:19-0400 Systolic blood pressure 112 mm[Hg] Dr. Thomas Salinas MD Work Phone: [facility] 11-09-2024 08:55-0400 Body height 167.[address] Thomas owens MD Work Phone: [facility] 11-09-2024 08:55-0400 Body mass index (BMI) [Ratio] 32.6 kg/m2 Dr. Thomas Salinas MD Work Phone: [facility] 11-09-2024 08:55-0400 Body weight 91.[address] Thomas owens MD Work Phone: [facility] 11-09-2024 08:55-0400 Diastolic blood pressure 71 mm[Hg] Dr. Thomas Salinas MD Work Phone: [facility] 11-09-2024 08:55-0400 Systolic blood pressure 104 mm[Hg] Dr. Thomas Salinas MD Work Phone: [facility] 10-12-2024 15:54-0400 Body height 167.[address] Thomas owens MD Work Phone: [facility] 10-12-2024 15:54-0400 Body mass index (BMI) [Ratio] 31.5 kg/m2 Dr. Thomas Salinas MD Work Phone: [facility] 10-12-2024 15:54-0400 Body weight 88.[address] Thomas owens MD Work Phone: [facility] 10-12-2024 15:54-0400 Diastolic blood pressure 75 mm[Hg] Dr. Thomas Salinas MD Work Phone: [facility] 10-12-2024 15:54-0400 Systolic blood pressure 119 mm[Hg] Dr. Thomas Salinas MD Work Phone: [facility] 09-14-2024 08:59-0400 Body height 167.[address] Thomas owens MD Work Phone: [facility] 09-14-2024 08:59-0400 Body mass index (BMI) [Ratio] 30.7 kg/m2 Dr. Thomas Salinas MD Work Phone: [facility] 09-14-2024 08:59-0400 Body weight 86.[address] Thomas owens MD Work Phone: [facility] 09-14-2024 08:59-0400 Diastolic blood pressure 71 mm[Hg] Dr. Thomas Salinas MD Work Phone: [facility] 09-14-2024 08:59-0400 Systolic blood pressure 106 mm[Hg] Dr. Thomas Salinas MD Work Phone: [facility] 08-17-2024 08:32-0400 Body mass index (BMI) [Ratio] 29.7 kg/m2 Dr. Thomas Salinas MD Work Phone: [facility] 08-17-2024 08:32-0400 Body weight 83.[address] Thomas owens MD Work Phone: [facility] 08-17-2024 08:32-0400 Diastolic blood pressure 68 mm[Hg] Dr. Thomas Salinas MD Work Phone: [facility] 08-17-2024 08:32-0400 Systolic blood pressure 104 mm[Hg] Dr. Thomas Salinas MD Work Phone: [facility] 08-05-2024 09:52-0400 Body mass index (BMI) [Ratio] 29.5 kg/m2 Dr. Thomas Salinas MD Work Phone: [facility] 08-05-2024 09:52-0400 Body weight [address] Thomas owens MD Work Phone: [facility] 08-05-2024 09:52-0400 Diastolic blood pressure 78 mm[Hg] Dr. Thomas Salinas MD Work Phone: [facility] 08-05-2024 09:52-0400 Systolic blood pressure 126 mm[Hg] Dr. Thomas Salinas MD Work Phone: [facility] 07-20-2024 13:59-0400 Body height 167.[address] Royce Chapin DO Work Phone: [facility] 07-20-2024 13:58-0400 Body mass index (BMI) [Ratio] 29.4 kg/m2 Dr. Royce Chapin DO Work Phone: [facility] 07-20-2024 13:58-0400 Body weight 82.[address] Royce Chapin DO Work Phone: 0(548)[phone] [place] [address] 07-20-2024 13:58-0400 Diastolic blood pressure 79 mm[Hg] Dr. Royce Chapin DO Work Phone: 8(749)959-394910 [place] [address] 07-20-2024 13:58-0400 Systolic blood pressure 117 mm[Hg] Dr. Royce Chapin DO Work Phone: 1(598)807-728010 [place] [address] 04-14-2024 14:22-0500 Body height 167.[address] Royce Chapin DO Work Phone: 8(648)587-264610 [place] [address] 04-14-2024 14:19-0500 Body mass index (BMI) [Ratio] 28.8 kg/m2 Dr. Royce Chapin DO Work Phone: 3(865)[phone] [place] [address] 04-14-2024 14:19-0500 Body weight 80.[address] Royce Chapin DO Work Phone: 7(926)985-991310 [place] [address] 04-14-2024 14:19-0500 Diastolic blood pressure 78 mm[Hg] Dr. Royce Chapin DO Work Phone: 8(326)968-036210 [place] [address] 04-14-2024 14:19-0500 Systolic blood pressure 114 mm[Hg] Dr. Royce Chapin DO Work Phone: 7(453)979-695810 [place] [address] 04-01-2024 20:00-0500 Body temperature 98 [degF] Dr. Royce Chapin DO Work Phone: 0(411)920-728810 [place] [address] 04-01-2024 20:00-0500 Diastolic blood pressure 68 mm[Hg] Dr. Royce Chapin DO Work Phone: 3(853)264-246010 [place] [address] 04-01-2024 20:00-0500 Heart rate 79 /min Dr. Royce Chapin DO Work Phone: 4(271)587-116010 [place] [address] 04-01-2024 20:00-0500 Respiratory rate 18 /min Dr. Royce Chapin DO Work Phone: 0(107)840-102710 [place] [address] 04-01-2024 20:00-0500 SaO2% (BldA) [Mass fraction] 100 % Dr. Royce Chapin DO Work Phone: [facility] 04-01-2024 20:00-0500 Systolic blood pressure 112 mm[Hg] Dr. Royce Chapin DO Work Phone: [facility] 04-01-2024 16:16-0500 Body mass index (BMI) [Ratio] 29.2 kg/m2 Dr. Royce Chapin DO Work Phone: [facility] 04-01-2024 16:16-0500 Body weight 82.[address] Royce Chapin DO Work Phone: [facility] 07-27-2023 11:28-0400 Body temperature 97.7 [degF] Diana Kus CARE MANAGER.CLINICAL NURSING PROFESSOR Work Phone: [facility] 07-27-2023 11:28-0400 Body weight 73.03 kg Diana Kus CARE MANAGER.CLINICAL NURSING PROFESSOR Work Phone: [facility] 07-27-2023 11:28-0400 Diastolic blood pressure 69 mm[Hg] Diana Kus CARE MANAGER.CLINICAL NURSING PROFESSOR Work Phone: [facility] 07-27-2023 11:28-0400 Heart rate 98 /min Diana Kus CARE MANAGER.CLINICAL NURSING PROFESSOR Work Phone: [facility] 07-27-2023 11:28-0400 Respiratory rate 18 /min Diana Kus CARE MANAGER.CLINICAL NURSING PROFESSOR Work Phone: [facility] 07-27-2023 11:28-0400 Systolic blood pressure 117 mm[Hg] Diana Kus CARE MANAGER.CLINICAL NURSING PROFESSOR Work Phone: [facility] 02-06-2023 08:40-0400 Body height 165.1 cm Konstantin Kirkland MD Work Phone: [facility] 02-06-2023 08:40-0400 Body weight 73.94 kg Konstantin Kirkland MD Work Phone: [facility] 02-06-2023 08:40-0400 Diastolic blood pressure 73 mm[Hg] Konstantin Kirkland MD Work Phone: [facility] 02-06-2023 08:40-0400 Heart rate 101 /min Konstantin Kirkland MD Work Phone: [facility] 02-06-2023 08:40-0400 SaO2% (BldA) [Mass fraction] 100 % Konstantin Kirkland MD Work Phone: [facility] 02-06-2023 08:40-0400 Systolic blood pressure 106 mm[Hg] Konstantin Kirkland MD Work Phone: [facility] 04-04-2022 13:49-0500 Body temperature 98.1 [degF] Konstantin Kirkland MD Work Phone: [facility] 04-04-2022 13:49-0500 Body weight 77.56 kg Konstantin Kirkland MD Work Phone: [facility] 04-04-2022 13:49-0500 Diastolic blood pressure 71 mm[Hg] Konstantin Kirkland MD Work Phone: [facility] 04-04-2022 13:49-0500 Heart rate 82 /min Konstantin Kirkland MD Work Phone: [facility] 04-04-2022 13:49-0500 SaO2% (BldA) [Mass fraction] 100 % Konstantin Kirkland MD Work Phone: [facility] 04-04-2022 13:49-0500 Systolic blood pressure 124 mm[Hg] Konstantin Kirkland MD Work Phone: [facility] 03-19-2022 13:09-0500 Body height 165.1 cm Pacc 3 Work Phone: [facility] 03-19-2022 13:09-0500 Body temperature 97.9 [degF] Pacc 3 Work Phone: [facility] 03-19-2022 13:09-0500 Body weight 77.56 kg Pacc 3 Work Phone: [facility] 03-19-2022 13:09-0500 Diastolic blood pressure 73 mm[Hg] Pacc 3 Work Phone: [facility] 03-19-2022 13:09-0500 Heart rate 65 /min Pacc 3 Work Phone: [facility] 03-19-2022 13:09-0500 Respiratory rate 16 /min Pacc 3 Work Phone: [facility] 03-19-2022 13:09-0500 SaO2% (BldA) [Mass fraction] 97 % Pacc 3 Work Phone: [facility] 03-19-2022 13:09-0500 Systolic blood pressure 111 mm[Hg] Pacc 3 Work Phone: [facility] 03-05-2022 08:55-0500 Body height 165.1 cm Konstantin Kirkland MD Work Phone: [facility] 03-05-2022 08:55-0500 Body weight 81.06 kg Konstantin Kirkland MD Work Phone: [facility] 03-05-2022 08:55-0500 Diastolic blood pressure 78 mm[Hg] Konstantin Kirkland MD Work Phone: [facility] 03-05-2022 08:55-0500 Heart rate 96 /min Konstantin Kirkland MD Work Phone: [facility] 03-05-2022 08:55-0500 SaO2% (BldA) [Mass fraction] 98 % Konstantin Kirkland MD Work Phone: [facility] 03-05-2022 08:55-0500 Systolic blood pressure 118 mm[Hg] Konstantin Kirkland MD Work Phone: [facility] 02-05-2022 11:14-0400 Body height 165.1 cm Konstantin Kirkland MD Work Phone: [facility] 02-05-2022 11:14-0400 Body temperature 98.4 [degF] Konstantin Kirkland MD Work Phone: [facility] 02-05-2022 11:14-0400 Body weight 79.74 kg Konstantin Kirkland MD Work Phone: [facility] 02-05-2022 11:14-0400 Diastolic blood pressure 78 mm[Hg] Konstantin Kirkland MD Work Phone: [facility] 02-05-2022 11:14-0400 Heart rate 94 /min Konstantin Kirkland MD Work Phone: [facility] 02-05-2022 11:14-0400 Systolic blood pressure 131 mm[Hg] Konstantin Kirkland MD Work Phone: [facility] 12-06-2021 13:52-0400 Body height 165.1 cm Pacc 3 Work Phone: [facility] 12-06-2021 13:52-0400 Body temperature 97.3 [degF] Pacc 3 Work Phone: [facility] 12-06-2021 13:52-0400 Body weight 79.02 kg Pacc 3 Work Phone: [facility] 12-06-2021 13:52-0400 Diastolic blood pressure 76 mm[Hg] Pacc 3 Work Phone: [facility] 12-06-2021 13:52-0400 Heart rate 73 /min Pacc 3 Work Phone: [facility] 12-06-2021 13:52-0400 Respiratory rate 16 /min Pacc 3 Work Phone: [facility] 12-06-2021 13:52-0400 SaO2% (BldA) [Mass fraction] 100 % Pacc 3 Work Phone: [facility] 12-06-2021 13:52-0400 Systolic blood pressure 111 mm[Hg] Pacc 3 Work Phone: [facility] 12-04-2021 14:12-0400 Body height 165.1 cm Konstantin Kirkland MD Work Phone: [facility] 12-04-2021 14:12-0400 Body temperature 97.59 [degF] Konstantin Kirkland MD Work Phone: [facility] 12-04-2021 14:12-0400 Body weight 79.2 kg Konstantin Kirkland MD Work Phone: [facility] 12-04-2021 14:12-0400 Diastolic blood pressure 75 mm[Hg] Konstantin Kirkland MD Work Phone: [facility] 12-04-2021 14:12-0400 Heart rate 67 /min Konstantin Kirkland MD Work Phone: [facility] 12-04-2021 14:12-0400 Systolic blood pressure 119 mm[Hg] Konstantin Kirkland MD Work Phone: [facility] 10-11-2021 09:30-0400 Body height 165.1 cm Feng Wright MD Work Phone: [facility] 10-11-2021 09:30-0400 Body weight 77.97 kg Feng Wright MD Work Phone: [facility] 10-11-2021 09:30-0400 Heart rate 106 /min Feng Wright MD Work Phone: [facility] 10-11-2021 09:30-0400 SaO2% (BldA) [Mass fraction] 98 % Feng Wright MD Work Phone: [facility] 09-19-2021 11:31-0400 Body height 166.4 cm Yana Ballard APRN.CLINICAL NURSING PROFESSOR Work Phone: [facility] 09-19-2021 11:31-0400 Body temperature 97.9 [degF] Yana Ballard APRN.CLINICAL NURSING PROFESSOR Work Phone: [facility] 09-19-2021 11:31-0400 Body weight 78.47 kg Yana Dennisonol CARE MANAGER.CLINICAL NURSING PROFESSOR Work Phone: [facility] 09-19-2021 11:31-0400 Diastolic blood pressure 80 mm[Hg] Yana Jumaol CARE MANAGER.CLINICAL NURSING PROFESSOR Work Phone: [facility] 09-19-2021 11:31-0400 Systolic blood pressure 122 mm[Hg] Yana Jumaol CARE MANAGER.CLINICAL NURSING PROFESSOR Work Phone: [facility] 09-13-2021 23:55-0400 Body temperature 98.24 [degF] Kaylinn Dokken [facility] 09-13-2021 23:55-0400 Diastolic blood pressure 70 mm[Hg] Kaylinn Dokken [facility] 09-13-2021 23:55-0400 Heart rate 70 /min Kaylinn Dokken [facility] 09-13-2021 23:55-0400 Mean blood pressure 90 mm[Hg] Kaylinn Dokken [facility] 09-13-2021 23:55-0400 Respiratory rate 17 /min Kaylinn Dokken [facility] 09-13-2021 23:55-0400 SaO2% (BldA) [Mass fraction] 99 % Kaylinn Dokken [facility] 09-13-2021 23:55-0400 Systolic blood pressure 130 mm[Hg] Kaylinn Dokken [facility] 09-13-2021 20:33-0400 Body temperature 98.06 [degF] Kaylinn Dokken [facility] 09-13-2021 20:33-0400 Diastolic blood pressure 90 mm[Hg] Kaylinn Dokken [facility] 09-13-2021 20:33-0400 Heart rate 110 /min Moon Manuel [facility] 09-13-2021 20:33-0400 Respiratory rate 15 /min Moon Manuel [facility] 09-13-2021 20:33-0400 SaO2% (BldA) [Mass fraction] 98 % Moon Manuel [facility] 09-13-2021 20:33-0400 Systolic blood pressure 135 mm[Hg] sergio Manuel [facility] Encounters Encounter Date Encounter Type Care Provider Facility Start: 02-01-2025 ambulatory Ximena Mcghee Facility :[facility] Start: 02-01-2025 End: 02-01-2025 ambulatory Ximena Mcghee Facility:[facility] Start: 01-26-2025 End: 01-26-2025 ambulatory Isabel [facility] Facility:[facility] Start: 01-11-2025 End: 01-11-2025 Patient encounter procedure Ximena Mcghee CN -[facility] Work Phone: Start: 01-11-2025 End: 01-11-[address] Thomas Salinas MD Work Phone: -[facility] Start: 12-28-2024 End: 12-28-2024 Patient encounter procedure Barbie ESCOBAR -[facility] Work Phone: Start: 12-28-2024 End: 12-28-[address] Thomas Salinas MD Work Phone: -[facility] Start: 12-15-2024 End: 12-15-[address] Maryann Bajwa DO -[facility] Work Phone: Start: 12-15-2024 End: 12-15-[address] Thomas Salinas MD Work Phone: [facility] Start: 12-01-2024 End: 12-01-2024 Patient encounter procedure Barbie ESCOBAR -[facility] Work Phone: Start: 12-01-2024 End: 12-01-[address] Thomas Salinas MD Work Phone: [facility] Start: 12-01-2024 End: 12-01-2024 ambulatory Ximena Mcghee Facility:[facility] Start: 11-09-2024 End: 11-09-2024 Patient encounter procedure Ximena COBB -[facility] Work Phone: Start: 11-09-2024 End: 11-09-[address] Thomas Salinas MD Work Phone: [facility] Start: 10-12-2024 End: 10-12-[address] Isabel Marino MD -[facility] Work Phone: Start: 10-12-2024 End: 10-12-[address] Thomas Salinas MD Work Phone: [facility] Start: 10-08-2024 End: 10-08-[address] Thomas Salinas MD Work Phone: -[facility] Start: 10-08-2024 End: 10-08-[address] Isabel Marino MD -[facility] Start: 10-08-2024 End: 10-08-2024 ambulatory THOMAS SALINAS [facility] Start: 10-08-2024 End: 10-08-2024 ambulatory Isabel Marino Facility:[facility] Start: 09-14-2024 End: 09-14-2024 Patient encounter procedure Ximena Mcghee CNM -[facility] Work Phone: Start: 09-14-2024 End: 09-14-[address] Thomas Salinas MD Work Phone: [facility] Work Phone: Start: 08-17-2024 End: 08-17-2024 Patient encounter procedure Barbie ESCOBAR -[facility] Work Phone: Start: 08-17-2024 End: 08-17-2024 ambulatory Thomas Salinas Facility:[facility] Start: 08-05-2024 End: 08-05-2024 Patient encounter procedure Barbie ESCOBAR -[facility] Work Phone: Start: 08-05-2024 End: 08-05-2024 ambulatory Thomas Salinas Facility:[facility] Start: 07-31-2024 End: 07-31-[address] Maryann Bajwa DO -[facility] Start: 07-31-2024 End: 07-31-2024 ambulatory Maryann Bajwa Facility:[facility] Start: 07-20-2024 End: 07-20-[address] Royce Chapin DO Work Phone: [facility] Work Phone: Start: 07-20-2024 End: 07-20-[address] Maryann Bajwa DO -Laboratory, Specimen Work Phone: Start: 07-20-2024 End: 07-20-[address] Maryann Bajwa DO -[facility] Work Phone: Start: 07-20-2024 End: 07-20-2024 ambulatory Thomas Salinas Facility:[facility] Start: 07-20-2024 End: 07-20-2024 ambulatory Maryann Bajwa Facility:[facility] Start: 07-03-2024 Non-patient / Non-visit Renay gu RN -[facility] Work Phone: Start: 07-03-2024 ambulatory Renay Larose Facility :[facility] Start: 07-02-2024 End: 07-02-[address] Royce Chpain DO Work Phone: [facility] Work Phone: Start: 07-02-2024 End: 07-02-[address] Maryann Richards, [facility] Work Phone: Start: 07-02-2024 End: 07-02-2024 ambulatory Maryann Bajwa Facility:[facility] Start: 06-27-2024 End: 06-27-[address] Royce Chapin DO Work Phone: [facility] Work Phone: Start: 06-27-2024 End: 06-27-[address] Maryann Bajwa DO -Laboratory Work Phone: Start: 06-27-2024 End: 06-27-2024 ambulatory Maryann Bajwa Facility:[facility] Start: 06-25-2024 End: 06-25-[address] Royce Chapin DO Work Phone: [facility] Work Phone: Start: 06-25-2024 End: 06-25-[address] Maryann Richards, [facility] Work Phone: Start: 06-25-2024 End: 06-25-[address] Royce Chapin DO Work Phone: [facility] Work Phone: Start: 06-25-2024 End: 06-25-[address] Maryann Bajwa DO -Lab, [facility] Start: 06-25-2024 End: 06-25-2024 ambulatory Maryann Bajwa Facility:[facility] Start: 06-18-2024 End: 06-18-[address] Royce Chapin DO Work Phone: [facility] Work Phone: Start: 06-18-2024 End: 06-18-[address] Maryann Bajwa DO -Lab, [facility] Start: 06-18-2024 End: 06-18-2024 ambulatory Maryann Bajwa Facility:[facility] Start: 06-16-2024 End: 06-16-[address] Royce Chapin DO Work Phone: [facility] Work Phone: Start: 06-16-2024 End: 06-16-[address] Maryann Bajwa DO -Lab, [facility] Start: 06-16-2024 End: 06-16-2024 ambulatory Maryann Bajwa Facility:[facility] Start: 04-14-2024 End: 04-14-2024 Patient encounter procedure Barbie Mitchell SITE SPECIALIST-C -[facility] Work Phone: Start: 04-14-2024 End: 04-14-2024 ambulatory Barbie Mitchell SITE SPECIALIST Facility:[facility] Start: 04-14-2024 End: 04-14-2024 ambulatory Barbie Mitchell SITE SPECIALIST Facility:[facility] Start: 04-06-2024 End: 04-06-[address] Isabel Marino MD -Lab, [facility] Start: 04-06-2024 End: 04-06-2024 ambulatory Isabel Marino Facility:[facility] Start: 04-03-2024 End: 04-03-[address] Isabel Marino MD -Lab, [facility] Start: 04-03-2024 End: 04-03-2024 ambulatory Isabel Marino Facility:[facility] Start: 04-01-2024 End: 04-01-2024 Emergency department patient visit Dr. Royce Chapin DO -Emergency Department Work Phone: Start: 07-29-2023 End: 07-29-2023 ambulatory THOMAS SALINAS Facility:[facility] Start: 07-27-2023 End: 07-27-2023 ambulatory THOMAS Dayne BRAD Facility:[facility] Start: 07-27-2023 End: 07-27-2023 Office outpatient visit 15 minutes Diana Neil ESPARZA Work Phone: [facility] Comment on above: Diarrhea, unspecifie d type (Primary Dx) Start: 05-16-2023 End: 05-16-2023 Emergency department patient visit THOMAS Dayne BRAD Facility:[facility] Start: 03-02-2023 [facility] Start: 03-02-2023 End: 03-02-2023 Subsequent hospital visit by physician Mri [facility] (1.5t) Radiology Comment on above: Spinal stenosis of l umbar region with neurogenic claudication [M48.062] Start: 02-06-2023 End: 02-06-2023 ambulatory THOMAS Dayne BRAD Facility:[facility] Start: 02-06-2023 End: 02-06-2023 Patient encounter procedure Konstantin Kirkland MD Work Phone: Neurosurgery Comment on above: Radiculopathy, lumba r region (Primary Dx); Spinal stenosis of lumbar region with neurogenic claudication Start: 12-31-2022 End: 12-31-2022 ambulatory Nehemias Suarez PT, DPT Work Phone: [facility] Comment on above: Chronic bilateral lo w back pain with right-sided sciatica (Primary Dx) Start: 11-28-2022 End: 11-28-2022 ambulatory Nehemias Suarez PT DPT Work Phone: [facility] Comment on above: Chronic bilateral lo w back pain with right-sided sciatica (Primary Dx) Start: 10-24-2022 End: 10-25-2022 ambulatory THOMAS Dayne BRAD Facility:[facility] Start: 09-12-2022 End: 09-13-2022 [facility] Start: 09-12-2022 End: 09-13-2022 ambulatory Nehemias Suarez PT, DPT Work Phone: [facility] Comment on above: Chronic bilateral lo w back pain with right-sided sciatica (Primary Dx) Start: 08-29-2022 End: 08-30-2022 ambulatory THOMAS SALINAS Facility:[facility] Start: 08-27-2022 ambulatory Konstantin Kirkland MD Work Phone: [facility] Start: 08-27-2022 Letter encounter Konstantin post MD Work Phone: [facility] Comment on above: Jury Duty Letter Start: 08-15-2022 End: 08-16-2022 ambulatory Nehemias Suarez PT, DPT Work Phone: [facility] Comment on above: Chronic bilateral lo w back pain with right-sided sciatica (Primary Dx) Start: 07-30-2022 End: 07-30-2022 ambulatory Konstantin Kirkland MD Work Phone: [facility] Comment on above: Radiculopathy, lumba r region (Primary Dx) Start: 07-30-2022 End: 07-30-2022 Telemedicine consultation with patient Konstantin Kirkland MD Work Phone: [facility] Start: 07-16-2022 End: 07-16-2022 ambulatory THOMAS SALINAS Facility:[facility] Start: 07-16-2022 End: 07-16-2022 ambulatory Nehemias Suarez PT, DPT Work Phone: [facility] Comment on above: Chronic bilateral lo w back pain with right-sided sciatica (Primary Dx) Start: 07-11-2022 End: 07-11-2022 ambulatory [facility] Work Phone: Start: 07-11-2022 End: 07-11-2022 Patient encounter procedure [facility] Start: 07-09-2022 End: 07-09-2022 ambulatory NEHEMIAS SUAREZ Facility:[facility] Start: 07-09-2022 End: 07-09-2022 ambulatory Nehemias Suarez PT, DPT Work Phone: [facility] Comment on above: Chronic bilateral lo w back pain with right-sided sciatica (Primary Dx) Start: 07-02-2022 End: 07-02-2022 ambulatory KONSTANTIN KIRKLAND Facility:[facility] Start: 06-25-2022 End: 06-25-2022 ambulatory NEHEMIAS SUAREZ Facility:[facility] Start: 06-25-2022 End: 06-25-2022 ambulatory Nehemias Suarez PT, DPT Work Phone: [facility] Comment on above: Chronic bilateral lo w back pain with right-sided sciatica (Primary Dx) Start: 06-18-2022 End: 06-18-2022 ambulatory NEHEMIAS SUAREZ Facility:[facility] Start: 06-11-2022 End: 06-11-2022 ambulatory [facility] Facility:[facility] Start: 06-11-2022 End: 06-11-2022 [facility] Comment on above: Chronic bilateral lo w back pain with right-sided sciatica (Primary Dx) Start: 06-04-2022 End: 06-04-2022 [facility]ulatory [facility] Start: 05-30-2022 End: 05-30-2022 ambulatory THOMAS BRAD Facility:[facility] Start: 05-30-2022 End: 05-30-2022 ambulatory Nehemias Suarez PT, DPT Work Phone: [facility] Comment on above: Chronic bilateral lo w back pain with right-sided sciatica (Primary Dx) Start: 05-28-2022 End: 05-28-2022 ambulatory THOMAS SALINAS Facility:[facility] Start: 05-21-2022 End: 05-21-2022 ambulatory THOMAS SALINAS Facility:[facility] Start: 05-21-2022 End: 05-21-2022 ambulatory Nehemias Suarez PT, DPT Work Phone: [facility] Comment on above: Chronic bilateral lo w back pain with right-sided sciatica (Primary Dx) Start: 05-07-2022 End: 05-07-2022 ambulatory [facility] Comment on above: Chronic bilateral lo w back pain with right-sided sciatica (Primary Dx) Tail bone pain Start: 05-07-2022 Letter encounter Konstantin post MD Work Phone: Neurosurgery Comment on above: [employer] letter Start: 04-30-2022 End: 04-30-2022 ambulatory [facility] Comment on above: Chronic bilateral lo w back pain with right-sided sciatica (Primary Dx) Start: 04-25-2022 End: 04-25-2022 ambulatory [facility] Facility:[facility] Start: 04-25-2022 End: 04-25-2022 ambulatory Konstantin Kirkland MD Work Phone: Neurosurgery Comment on above: Radiculopathy, lumba r region (Primary Dx) Start: 04-25-2022 End: 04-25-2022 Telemedicine consultation with patient Konstantin Kirkland MD Work Phone: [facility] Start: 04-20-2022 End: 04-20-2022 ambulatory Nehemias Suarze PT, DPT Work Phone: [facility] Comment on above: Radiculopathy, lumba r region; Chronic bilateral low back pain with right-sided sciatica Start: 04-04-2022 End: 04-04-2022 [facility] Start: 04-04-2022 End: 04-04-2022 Patient encounter procedure Konstantin Kirkland MD Work Phone: Neurosurgery Comment on above: Radiculopathy, lumba r region (Primary Dx) Start: 03-29-2022 Telephone encounter Konstantin shaw MD Work Phone: Neurology Comment on above: Post Op Symptoms Start: 03-21-2022 ambulatory Konstantin Kirkland MD Work Phone: [facility] Comment on above: [employer] disibility paperwork Start: 03-20-2022 End: 03-20-2022 ambulatory KONSTANTIN KIRKLAND Facility:[facility] Start: 03-19-2022 Encounter for other preprocedural examination AGNES [facility] Start: 03-19-2022 End: 03-19-2022 [place]mission to [place] [id number] Work Phone: [facility] Start: 03-19-2022 End: 03-20-2022 ambulatory AGNES MATTHEWS Pre Anesthesia Comment on above: Pre-op evaluation [...] End: 03-16-2022 Subsequent hospital visit by physician [facility] (1.5t) Radiology Comment on above: Spinal stenosis of l umbar region with neurogenic claudication [M48.062] Start: 03-14-2022 Refill Konstantin Kirkland MD Work Phone: Neurosurgery Comment on above: Refill Request Start: 03-12-2022 Telephone encounter Konstantin shaw MD Work Phone: Neurology Comment on above: Orders Start: 03-11-2022 ambulatory Ximena OLVERA E POTLINE MONITOR Comment on above: Back Pain Start: 03-05-2022 End: 03-05-2022 Patient encounter procedure Konstantin Kirkland MD Work Phone: [facility] Comment on above: Lumbar radiculopathy (Primary Dx) Start: 02-19-2022 Telephone encounter Konstantin shaw MD Work Phone: Neurology Comment on above: Medication Problem Start: 02-08-2022 ambulatory Konstantin Kirkland MD Work Phone: [facility] Start: 02-08-2022 Letter encounter Konstantin post [...] Start: 12-19-2021 End: 12-19-2021 ambulatory KONSTANTIN KIRKLAND Facility:[facility] Start: 12-10-2021 ambulatory Ashwini OLIVERCLINICAL NURSING PROFESSOR Work Phone: Pain Management Comment on above: Gabapentin and Robax in Start: 12-07-2021 Telephone encounter Konstantin shaw MD Work Phone: Neurology Comment on above: Insurance Authorizat ion (Clinicals needed for P.A. for surgery) Start: 12-06-2021 End: 12-06-2021 Admission to establishment [facility] 3 Work Phone: [place] Start: 12-06-2021 End: 12-06-2021 ambulatory [facility] 3 Work Phone: Pre Anesthesia Comment on [...] Start: 12-04-2021 End: 12-04-2021 ambulatory Ashwini Cadet APRN.CLINICAL NURSING PROFESSOR Work Phone: Pain Management Comment on above: Lumbar disc herniati on (Primary Dx); Radiculopathy, lumbar region Start: 12-04-2021 E-mail encounter fro m caregiver Yana Ballard APRN.CNP Work Phone: [facility] Start: 12-04-2021 End: 12-04-2021 Telemedicine consultation with patient Ashwini Cadet APRN.CLINICAL NURSING PROFESSOR Work Phone: [facility] Start: 12-03-2021 ambulatory Yana OLIVERCLINICAL NURSING PROFESSOR Work Phone: [facility] Comment on above: Potassium Start: 11-23-2021 Telephone encounter Ashwini roldan Management Comment on above: STD Paperwork (Recei velma 11/23) Start: 11-22-2021 End: 11-22-2021 ambulatory Ashwini Cadet APRN.CNP Work Phone: Pain Management Comment on above: Lumbar disc herniati on (Primary Dx); Radiculopathy, lumbar region Start: 11-22-2021 End: 11-22-2021 Telemedicine consultation with patient Ashwini Lopez Chichi JOSEPH.CLINICAL NURSING PROFESSOR Work Phone: [facility] Start: 11-16-2021 End: 11-16-2021 ambulatory Yana E Ziol CARE MANAGER.CLINICAL NURSING PROFESSOR Work Phone: [facility] Comment on above: ER Visit Lumbar disc herniati on (Primary Dx); Radiculopathy, lumbar region Start: 11-16-2021 Telephone encounter Ashwini Lopez Abdoul guajardo APRN.CLINICAL NURSING PROFESSOR Work Phone: Pain Management Comment on above: Patient Update Start: 11-16-2021 End: 11-16-2021 Telemedicine consultation with patient Ashwini Lopez Chichi JOSEPH.CLINICAL NURSING PROFESSOR Work Phone: [facility] Start: 11-15-2021 End: 11-15-2021 ambulatory Dulce Wong CARE MANAGER.CLINICAL NURSING PROFESSOR Work Phone: Telemedicine Comment on above: Treatment not availa ble (Primary Dx) Start: 11-15-2021 End: 11-15-2021 Telemedicine consultation with patient Dulce Wong APRN.CLINICAL NURSING PROFESSOR Work Phone: [facility] Start: 11-04-2021 Refill Yana E Ziol A PRN.CLINICAL NURSING PROFESSOR Work Phone: [facility] Comment on above: Refill Request Start: 11-02-2021 Get Medical Advice Yana E Ziol CARE MANAGER.CLINICAL NURSING PROFESSOR Work Phone: [facility] Comment on above: Muscle Relaxer Refil l Start: 10-11-2021 End: 10-11-2021 Patient encounter procedure Feng Wright MD Work Phone: Pain Management Comment on above: Radiculopathy, lumba r region (Primary Dx); Lumbar disc herniation Lumbar disc herniati on (Primary Dx); Radiculopathy, lumbar region Start: 10-06-2021 ambulatory Yana E Ziol A PRN.CLINICAL NURSING PROFESSOR Work Phone: [facility] Comment on above: MRI Start: 10-06-2021 Telephone encounter Yana sánchez CARE MANAGER.CLINICAL NURSING PROFESSOR Work Phone: [facility] Comment on above: Results (MRI) Refill Request Start: 10-05-2021 End: 10-05-2021 Subsequent hospital visit by physician [facility] (1.5t) Radiology Comment on above: Spinal stenosis of l umbar region without neurogenic claudication [M48.061] Start: 09-23-2021 ambulatory Yana Denise PRN.CLINICAL NURSING PROFESSOR Work Phone: [facility] Comment on above: Chiropractor Start: 09-19-2021 End: 09-19-2021 Patient encounter procedure Yana Ballard CARE MANAGER.CLINICAL NURSING PROFESSOR Work Phone: [facility] Comment on above: Spinal stenosis of l umbar region without neurogenic claudication Start: 09-13-2021 End: 09-13-2021 Emergency department patient visit Kristianlubna [facility]ie [facility] Procedures Date Procedure Procedure Detail Performing Clinician Start: 12-01-2024 Serologic test for syphilis Dr. Thomas Salinas MD Work Phone: Start: 10-08-[address] Thomas paula MD Work Phone: Comment on above: Test Ordered: [id number] AFP, Serum, Open Spina BifidaResults SITE SPECIALIST NOLAB Reference Range: .Test Results: TG Reference Range: .Please refer to the following specimen for additional labresults.Please refer to [id number] for results.Gest. Age on Collection Date SITE SPECIALIST NOLAB Reference Range: .Gestat. Age Based On SITE SPECIALIST NOLAB Reference Range: .Maternal Age At BALAJI SITE SPECIALIST NOLAB Reference Range: .Race SITE SPECIALIST NOLAB Reference Range: .Weight SITE SPECIALIST NOLAB Reference Range: .Insulin Dep Diabetes SITE SPECIALIST NOLAB Reference Range: .Multiple Gestation SITE SPECIALIST NOLAB Reference Range: .AFP Value NOLAB Reference Range: .Test not performedAFP MoM SITE SPECIALIST NOLAB Reference Range: .OSBR Risk 1 IN SITE SPECIALIST NOLAB Reference Range: .Interpretation SITE SPECIALIST NOLAB Reference Range: .Comment: SITE SPECIALIST NOLAB Reference Range: .Tracking SITE SPECIALIST NOLAB Reference Range: .Performed at: - [employer] [employer] [id number] [place], [place] [id number] Director: Norm Gonzáles PhD, Phone: [phone] at: - [facility] [id number] [place], [place] [id number] Director: Zelalem Ernst [facility], Phone: [phone] Start: 07-31-2024 Hepatitis C antibody measurement Dr. [...] HCV Quant by PCR testing - HCVPCR #[id number] Non Reactive: < 0.8 Equivocal: >/= 0.8 [...] Speci men Type: BLOOD SPECIMEN Ordering Facility: [facility] Address: [address] [place], [place] [address] Performed By: #### T [id number] #### [facility] CLIA [id number] [address] [place] [address] Start: 03-16-2022 Mri spinal canal lum bar w/o contrast material Radha Dickens PA-C Work Phone: Start: 12-02-2021 Adult depression scr eening assessment Ashwini Cadet CARE MANAGER.CLINICAL NURSING PROFESSOR Work Phone: Start: 10-05-2021 Mri spinal canal lum bar w/o contrast material Yana Ballard CARE MANAGER.CLINICAL NURSING PROFESSOR Work Phone: Start: 06-12-2021 Adult depression scr eening assessment Yana Ballard CARE MANAGER.CLINICAL NURSING PROFESSOR Work Phone: Plan of Treatment Date Care Activity Detail Author Start: 05-16-2030 Urine microalbumin profile [facility] Start: 12-01-2024 CBC W Auto Different ial panel - Blood [facility] Start: 12-01-2024 Measurement of gluco se 2 hours after glucose challenge for glucose tolerance test [facility] Start: 12-01-2024 Serologic test for syphilis [facility] Start: 12-01-2024 [facility] Start: 04-01-2024 [facility] Start: 12-15-2023 Influenza vaccination Influenz a Vaccine (Season Ended) [facility] Start: 11-08-2023 PAP TESTING PAP TESTING [facility] Start: 11-08-2023 Screening for malign ant neoplasm of cervix Pap Testing [facility] Start: 04-15-2023 Behavioral Health Screening Behavioral Health Screening [facility] Start: 12-14-2022 Covid-19 Vaccine ( season) Covid-19 Vaccine ( season) [facility] Start: 12-14-2022 Influenza vaccination [facility] Start: 12-02-2022 Adult depression screening assessment DEPRESSION SCREENING [facility] Start: 06-12-2022 Adult depression screening assessment DEPRESSION SCREENING [facility] Start: 04-15-2022 DEPRESSION ASSESSMENT DEPRESSION ASS ESSMENT [facility] Start: 2022 HPV TESTING HPV TESTING [facility] Start: 2022 Screening for malign ant neoplasm of cervix HPV Testing [facility] Start: 12-14-2021 Influenza vaccination [facility] Start: 12-06-2021 End: 02-05-2022 CONFIRM BLOOD TYPE [facility] Work Phone: Comment on above: Expected: 12/06/2021 , Expires: 02/05/2022 Start: 12-06-2021 End: 02-05-2022 TYPE AND SCREEN,30 DAY [facility] Work Phone: Comment on above: Expected: 12/06/2021 , Expires: 02/05/2022 Start: 12-04-2021 End: 02-03-2022 Electrolytes 1998 panel - Serum or Plasma ELECTROLYTES BLD PNL Lab Routine Hypokalemia Expected: 12/04/2021, Expires: 02/03/2022 [facility] Work Phone: Comment on above: Expected: 12/04/2021 , Expires: 02/03/2022 Start: 12-04-2021 End: 02-03-2022 Magnesium [Mass/volume] in Serum or Plasma MAGNESIUM BLD Lab Routine Hypomagnesemia Expected: 12/04/2021, Expires: 02/03/2022 [facility] Work Phone: Comment on above: Expected: 12/04/2021 , Expires: 02/03/2022 Start: 11-23-2021 End: 01-23-2022 Basic metabolic 2000 panel - Serum or Plasma BASIC METABOLIC PNL Lab Routine Hypokalemia Expected: 11/23/2021, Expires: 01/23/2022 [facility] Work Phone: Comment on above: Expected: 11/23/2021 , Expires: 01/23/2022 Start: 11-23-2021 End: 01-23-2022 Magnesium [Mass/volume] in Serum or Plasma MAGNESIUM BLD Lab Routine Hypomagnesemia Expected: 11/23/2021, Expires: 01/23/2022 [facility] Work Phone: Comment on above: Expected: 11/23/2021 , Expires: 01/23/2022 Start: 11-07-2021 PAP TESTING PAP TESTING [facility] Start: 04-15-2021 [facility] HEPATITIS C SCREENING HEPATITIS C [facility] Start: 2010 Hepatitis C screening Hepatitis C [facility] Start: 2010 HIV SCREENING HIV SCREENING [facility] Start: 2010 HIV screening HIV Screening [facility] Start: 1997 COVID-19 VACCINE (#1) COVID-19 VACCI NE (#1) [facility] Start: 1992 COVID-19 VACCINE (#1) COVID-19 VACCI NE (#1) [facility] CBC W Auto Different ial panel - Blood [facility] Clostridioides diffi cile toxin genes [Presence] in Stool by YANDY with probe detection C. DIFFICILE PCR Lab Routine Diarrhea, unspecified type Ordered: 07/27/2023 [facility] Work Phone: Comment on above: Ordered: 07/27/2023 ENTERIC BACTERIAL PA KATHY BY PCR ENTERIC BACTERIAL PANEL BY PCR Lab Routine Diarrhea, unspecified type Ordered: 07/27/2023 [facility] Work Phone: Comment on above: Ordered: 07/27/2023 Erythrocyte mean corpuscular volume determination [facility] Hematocrit [Volume Fraction] of Blood [facility] Hemoglobin [Mass/vol ume] in Blood [facility] Leukocytes [#/volume ] in Blood [facility] Mean corpuscular hemoglobin concentration determination [facility] Mean corpuscular hemoglobin determination [facility] Measurement of gluco se 2 hours after glucose challenge for glucose tolerance test [facility] End: 10-19-2022 Mri spinal canal lumbar w/o contrast material MRI LUMBAR SPINE WO IVCON Radiology Routine Spinal stenosis of lumbar region without neurogenic claudication 1 Occurrences starting 09/19/2021 until 10/19/2022 [facility] Work Phone: Comment on above: 1 Occurrences starti ng 09/19/2021 until 10/19/2022 End: 04-11-2023 Mri spinal canal lumbar w/o contrast material MRI LUMBAR SPINE WO IVCON Radiology Routine Spinal stenosis of lumbar region with neurogenic claudication 1 Occurrences starting 03/12/2022 until 04/11/2023 [facility] Work Phone: Comment on above: 1 Occurrences starti ng 03/12/2022 until 04/11/2023 End: 03-07-2024 Mri spinal canal lumbar w/o contrast material MRI LUMBAR SPINE WO IVCON Radiology Routine Spinal stenosis of lumbar region with neurogenic claudication 1 Occurrences starting 02/06/2023 until 03/07/2024 [facility] Work Phone: Comment on above: 1 Occurrences starti ng 02/06/2023 until 03/07/2024 Neutrophil count [facility] Neutrophil percent differential count [facility] Njx anes&/strd w/img tfrml edrl lmbr/sac 1 lvl INJ TRANSFORAMINAL EPID ANES/STER LS SINGL Procedures Routine Lumbar disc herniation Radiculopathy, lumbar region 1 Occurrences starting 10/11/2021 [facility] Work Phone: Comment on above: 1 Occurrences starti ng 10/11/2021 Ova and parasites identified in Unspecified specimen by Light microscopy OVA + PARA MICROSCOPIC Microbiology Routine Diarrhea, unspecified type Ordered: 07/27/2023 [facility] Work Phone: Comment on above: Ordered: 07/27/2023 Patient Education Miscarriage Th reatened ED [facility] Work Phone: Patient referral [facility] Work Phone: Platelets [#/volume] in Blood [facility] Procedure [facility] Red blood cell count [facility] Red cell distributio n width determination [facility] Serologic test for syphilis [facility] Immunizations Immunization Date Immunization Notes Care Provider [facility] 12-15-2024 influenza, injectable, madin renee canine kidney, preservative free Dr. Thomas Salinas MD Work Phone: [facility] 12-15-2024 tetanus toxoid, reduced diphtheria toxoid, and acellular pertussis vaccine, adsorbed Dr. Thomas Salinas MD Work Phone: [facility] 05-16-2020 diphtheria, tetanus toxoids and acellular pertussis vaccine, unspecified formulation Dulce Wong CARE MANAGER.CLINICAL NURSING PROFESSOR Work Phone: [facility] Work Phone: 05-16-2020 tetanus toxoid, reduced diphtheria toxoid, and acellular pertussis vaccine, adsorbed Yana Ballard APRN.CLINICAL NURSING PROFESSOR Work Phone: [facility] 01-25-2020 Influenza, injectable, Madin [place] Canine Kidney, preservative free, quadrivalent Dulce Wong APRN.CLINICAL NURSING PROFESSOR Work Phone: [facility] Work Phone: 01-25-2020 influenza, injectable,quadrivale nt, preservative free, pediatric [facility] 01-25-2020 influenza, seasonal, injectable, preservative free Dulce Wong CARE MANAGER.[facility] Work Phone: [facility] Work Phone: 01-25-2020 influenza virus vaccine, unspecified formulation Nehemias Suarez PT, DPT Work Phone: [facility] 09-24-2006 Meningococcal, MCV4, unspecified conjugate formulation(groups A, C, Y and W-135) Yana Ziol CARE MANAGER.CLINICAL NURSING PROFESSOR Work Phone: [facility] 09-24-2006 tetanus toxoid, reduced diphtheria toxoid, and acellular pertussis vaccine, adsorbed Yana Ziol CARE MANAGER.CLINICAL NURSING PROFESSOR Work Phone: [facility] 10-25-2004 measles, mumps and rubella virus vaccine Yana Ziol CARE MANAGER.CLINICAL NURSING PROFESSOR Work Phone: [facility] 04-08-1999 Chicken Pox (disease) Yana Ziol CARE MANAGER.CLINICAL NURSING PROFESSOR Work Phone: [facility] Work Phone: 11-16-1997 diphtheria, tetanus toxoids and acellular pertussis vaccine Yana Ziol CARE MANAGER.CLINICAL NURSING PROFESSOR Work Phone: [facility] 11-16-1997 poliovirus vaccine, inactivated Yana Ziol CARE MANAGER.CLINICAL NURSING PROFESSOR Work Phone: [facility] 09-20-1993 diphtheria, tetanus toxoids and acellular pertussis vaccine Yana Ziol CARE MANAGER.CLINICAL NURSING PROFESSOR Work Phone: [facility] 09-20-1993 poliovirus vaccine, inactivated Yana Ziol CARE MANAGER.CLINICAL NURSING PROFESSOR Work Phone: [facility] 06-14-1993 haemophilus influenzae type b vaccine, HbOC conjugate Yana Ziol CARE MANAGER.CLINICAL NURSING PROFESSOR Work Phone: [facility] 06-14-1993 measles, mumps and rubella virus vaccine Yana Ziol CARE MANAGER.CLINICAL NURSING PROFESSOR Work Phone: [facility] 01-18-1993 hepatitis B vaccine, pediatric or pediatric/adolescent dosage Yana Ziol CARE MANAGER.CLINICAL NURSING PROFESSOR Work Phone: [facility] 1992 diphtheria, tetanus toxoids and acellular pertussis vaccine Yana Ziol CARE MANAGER.CLINICAL NURSING PROFESSOR Work Phone: [facility] 1992 haemophilus influenzae type b vaccine, HbOC conjugate Yana Ziol CARE MANAGER.CLINICAL NURSING PROFESSOR Work Phone: [facility] 1992 hepatitis B vaccine, pediatric or pediatric/adolescent dosage Yana Ziol CARE MANAGER.CLINICAL NURSING PROFESSOR Work Phone: [facility] 1992 diphtheria, tetanus toxoids and acellular pertussis vaccine Yana Ziol CARE MANAGER.CLINICAL NURSING PROFESSOR Work Phone: [facility] 1992 haemophilus influenzae type b vaccine, HbOC conjugate Yana Ziol CARE MANAGER.CLINICAL NURSING PROFESSOR Work Phone: [facility] 1992 poliovirus vaccine, inactivated Yana Ziol CARE MANAGER.CLINICAL NURSING PROFESSOR Work Phone: [facility] 1992 hepatitis B vaccine, pediatric or pediatric/adolescent dosage Yana Ziol CARE MANAGER.CLINICAL NURSING PROFESSOR Work Phone: [facility] 1992 diphtheria, tetanus toxoids and acellular pertussis vaccine Yana Ziol CARE MANAGER.CLINICAL NURSING PROFESSOR Work Phone: [facility] 1992 haemophilus influenzae type b vaccine, HbOC conjugate Yana Ziol CARE MANAGER.CLINICAL NURSING PROFESSOR Work Phone: [facility] 1992 poliovirus vaccine, inactivated Yana Ziol CARE MANAGER.CLINICAL NURSING PROFESSOR Work Phone: [facility] Payers Date Payer Category Payer Self-pay [id number] 2023 Unknown [id number] 2018 Private Health Insurance [facility] CHOICE PLUS [id number] 2018-Present [phone] [address] [place] [address] [facility] [id number] 2018 Private Health Insurance [id number] 2018 Unknown [id number] 1992 Unknown [id number] 2.16840.1.552121.3.579.2 .479 Unknown [id number] 2.840.1.053330.3.579.2 .462 Unknown [id number] 2.840.1.587066.3.579.2 .462 Unknown [id number] 2.840.1.015366.3.579.2 .462 Unknown [id number] 2.840.1.491073.3.579.2 .462 Unknown [id number] 2.840.1.514400.3.579.2 .462 Unknown [id number] 2.840.1.466058.3.579.2 .462 Unknown [id number] 2.840.1.603599.3.579.2 .462 Unknown [id number] 2.840.1.326745.3.579.2 .462 Unknown [id number] 2.840.1.041351.3.579.2 .462 Unknown [id number] 2.840.1.530184.3.579.2 .462 Unknown [id number] 2.16840.1.584697.3.579.2 .462 Unknown [id number] 2.840.1.622114.3.579.2 .462 Unknown [id number] 2.16840.1.087611.3.579.2 .462 Unknown [id number] 2.16840.1.834389.3.579.2 .462 Unknown [id number] 2.840.1.334216.3.579.2 .462 Unknown [id number] 2.16.840.1.253187.3.579.2 .462 Unknown [id number] 2.16.840.1.304998.3.579.2 .462 Unknown [id number] 2.16.840.1.058519.3.579.2 .462 Unknown [id number] 2.16.840.1.443281.3.579.2 .462 Unknown [id number] 2.16.840.1.036942.3.579.2 .462 Unknown [id number] 2.16.840.1.799506.3.579.2 .462 Unknown [id number] 2.16.840.1.788463.3.579.2 .462 Unknown [id number] 2.16.840.1.399673.3.579.2 .462 Unknown [id number] 2.16.840.1.182538.3.579.2 .462 Unknown [id number] 2.16.840.1.420853.3.579.2 .462 Unknown [id number] 2.16.840.1.980414.3.579.2 .462 Unknown [id number] 2.16.840.1.976147.3.579.2 .462 Unknown [id number] 2.16840.1.233874.3.579.2 .462 Unknown [id number] 2.16840.1.164217.3.579.2 .462 Social History Date Type Detail Facility Tobacco smoking status [facility] Start: 06-12-2021 End: 08-15-2022 Sex Assigned At Female [facility] Start: 10-24-2015 End: 07-03-2024 Tobacco smoking status NHIS Ex-smoker [facility] End: 10-13-2013 History of tobacco use Current smoker [facility] End: 10-13-2013 History of tobacco use Cigarette Smoker [facility] Start: 10-24-2015 End: 08-15-2022 Cigarettes smoked current (pack per day) - Reported 0.8 [facility] Start: 10-24-2015 End: 12-06-2021 Tobacco use and exposure Smokeless tobacco non-user [facility] Start: 09-19-2021 End: 07-27-2023 Alcohol intake Current drinker of alcohol (finding) [facility] Start: 06-12-2021 History SDOH Alcohol Frequency 3 [facility] Start: 12-01-2019 End: 06-12-2021 History SDOH Alcohol Std Drinks 1 [facility] Start: 06-12-2021 History SDOH Alcohol Binge 2 [facility] Start: 10-31-2012 History SDOH Alcohol Comment occassionally - wine or mixed drink [facility] Start: 06-12-2021 History SDOH Social Connections Phone 5 [facility] Start: 06-12-2021 History SDOH Social Connections Meetings 98 [facility] Start: 06-12-2021 History SDOH Physical Activity DPW 0 [facility] Start: 06-12-2021 History SDOH Stress 4 [facility] Start: 11-30-2019 Education 15 [facility] Start: 10-24-2015 End: 12-04-2021 Tobacco Comment sometimes does E-cig but not very often [facility] Start: 1990 Sex Assigned At Not on file [facility] Start: 09-09-2021 End: 03-19-2022 Exposure to SARS-CoV-2 (event) Not sure [facility] Start: 12-06-2021 History SDOH Alcohol Comment a glass of wine twice a week [facility] Start: 12-06-2021 Tobacco Comment Last e cig 2 weeks ago [facility] Start: 10-02-2021 Tobacco smoking status NHIS Unknown if ever smoked [facility] Start: 1990 Sex Assigned At Female [facility] Do you belong to any clubs or organizations such as caodaism groups, unions, fraternal or athletic groups, or school groups? No [facility] How often do you att end meetings of the clubs or organizations you belong to? Patient refused [facility] Are you now , , , , never or living with a partner? [facility] How often to you hav e a drink containing alcohol? 2-4 times a month [facility] How many standard dr inks containing alcohol do you have on a typical day? 1 or 2 [facility] How often do you hav e 6 or more drinks on 1 occasion? Less than monthly [facility] How hard is it for y ou to pay for the very basics like food, housing, medical care, and heating Somewhat hard [facility] Do you feel stress - tense, restless, nervous, or anxious, or unable to sleep at night because your mind is troubled all the time - these days [OSQ] Rather much [facility] (I/We) worried wheth er (my/our) food would run out before (I/we) got money to buy more. Never true [facility] Start: 06-26-2024 End: 07-23-2024 Sex Female (finding) [facility] Clinical Notes 09-14-2021 to 01-11-2025 Note Date & Type Note Facility 01-11-2025 Progress note [facility] 12-28-2024 Progress note [facility] 11-09-2024 Progress note [facility] 10-12-2024 Evaluation note Diagnosis Onset Date Resolution acute October 12 3:50pm Supervision of high-risk acute October 12, 025 3:50pm Former smoker resolved October 12, 2024 3:50pm acute November 09 8:49am Supervision of high-risk acute November 09, 2 025 8:49am Anxiety acute December 01, 025 8:08am [...] Supervision of high-risk acute January 112024 10:15am [facility] Work Phone: 1(456) 766-658106-30-2025 Progress [facility] [address], [address] [place] [address] OFFICE VISIT Date of Service: 10/12/24 MR#: [id number] Acct: [id number] Name: HANNAH HENDRICKS Rep #: [id number] : 1990 Provider: Dr. 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 Date Name GA/Weeks Outcome Route Bth Weight Gen Labor Lgth Anesthesia Del Locatn Provider FOB 08/11/20 Janie 39 live - full term 7lbs 8.5oz Female epidural [facility] Dr. Quang Samaniego 03/15/24 4 [...] bleeding. Hx of SAB. Live IUP on US. 08/17/24 -?-?-?-?-?-?-?-?-?-?-?-?- 12w 5d 184 lb 8 oz 104/68 Trac e -?-?-?-?-?-?-?-?-?-?-?-?- Negative 157 -?-?-?-?--?-?-?-?-?-?-?-?- -No VB. Nausea improving. RUST confirm FHT 09/14/24 -?-?-?-?-?-?-?-?-?-?-?-?- 16w 5d 190 [...] POC Urinalysis 2 Dip (Clinic) Today 10/12/24 1621 yasir WHITAKER> Date _ Isabel Marino MD Cosigner Signature: Date (if applicable) CC: ~ [facility]06-30-2025 Progress note Author Isabel Marino [facility] Services Note Date/Time October 12, 2024 4:21 pm [facility] [address], [address] [place] [address] OFFICE VISIT Date of Service: 10/12/24 MR#: [id number] Acct: [id number] Name: HANNAH HENDRICKS Rep #: [id number] : 1990 Provider: Dr. 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 Date Name GA/Weeks Outcome Route Bth Weight Infant Gen Labor Lgth Anesthesia Del [facility] [facility] Janie 41 live - full term 7lbs 8.5oz Female epidural [facility] Dr. Quang Samaniego 03/15/24 4 [...] POC Urinalysis 2 Dip (Clinic) Today 10/12/24 1621 <Electronically signed by Isabel cooley MD> Date _ Isabel Marino MD Cosigner Signature: Date (if applicable) CC: ~ [facility] [employer] Work Phone: 1(949) 143-609106-02-2025 Evaluation note* Diagnosis Onset Date Resolution Status [...] acute December 01, 025 8:08am acute December 01 025 8:08am Supervision of high-risk acute December 01 8:08am Anxiety acute December 15, 2024 9:19am acute December 15, 2024 9:19am Supervision of high-risk acute December 15 9:19am Anxiety acute December 9:42am acute December 9:42am Supervision of high-risk acute December 28, 2024 9:42am [facility] Work Phone: 1(728) 189-278206-02-2025 Progress [facility] [address] [place] [address], [address] [place] [address] OFFICE VISIT Date of Service: 09/14/24 MR#: [id number] Acct: [id number] Name: HANNAH HENDRICKS Rep #: [id number] : 1990 Provider: BART Mcghee Age/Sex: 34/F Location: [facility] [place] Status: Signed Intake Vital Signs 07/20/24 13:59 08/17/24 08:32 09/14/24 08:59 Height 5 ft 6 in 5 ft 6 in 5 ft 6 in Weight: 190 lb 2 oz BMI 30.7 BP 106/71 Intake Visit Reasons: 17wk ob Chief Complaint: 17wk OB Tube Heater Required: No Is patient in pain?: No [...] 1 current occupational status: employed current occupation: [employer] current occupational exposures/hazards: No pets and animals: [...] 3-4 times per week duration: 15-30 minutes/day agata/taoism: Tenriism seatbelt use: always do you feel safe at home: Yes 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 Date Name GA/Weeks Outcome Route Bth Weight Infant Gen Labor Lgth Anesthesia Del Locatn Provider FOB 08/11/20 Janie 39 live - full term 7lbs 8.5oz Female epidural [facility] Dr. Quang Samaniego 03/15/24 4 spontaneous Delivery [...] of miscarriage, currently : Status: Acute Comment: March 2024 (2) Supervision of high-risk : [...] Cosigner Signature: Date (if applicable) CC: ~ [facility]05-05-2025 Evaluation note* Diagnosis Onset Date Resolution [...] December 01, 2 025 8:08am acute December 01, 2 025 8:08am Supervision of high-risk acute December 01 8:08am [facility] Work Phone: 1(287) 748-112105-05-2025 Evaluation note* Diagnosis Onset Date Resolution Status [...] December 01, 2 025 8:08am acute December 01, 025 8:08am Supervision of high-risk acute December 01 8:08am Anxiety acute December 15, 2024 9:19am acute December 15, 2024 9:19am Supervision of high-risk acute December 15, 9:19am [facility] Work Phone: 1(355) 528-218404-23-2025 Evaluation note* Diagnosis Onset Date Resolution Status [...] December 01, 2 025 8:08am acute December 01, 2 025 8:08am Supervision of high-risk acute December 01 8:08am [facility] Work Phone: [phone] Evaluation note* Diagnosis Onset Date Resolution Status [...] 8: 28am Former smoker acute September 14 8:56am History of miscarriage, currently acute September 14 8:56am acute September 14, 2024 8:56am Supervision of high-risk acute September 14, 2024 8 :56am [facility] [employer] Work Phone: [phone] Evaluation note* Diagnosis Onset Date Resolution Status Admit Date acute July 20 1:53pm Supervision of high-risk acute July 20, 2024 1:53pm Former smoker resolved July 20, 2024 1:53pm History of miscarriage, currently resolved July 20 1:53pm acute August 05 9:49am Supervision of high-risk acute August 05, 2024 9:49am Former smoker resolved August 05, 2024 9:49am History of miscarriage, currently resolved August 05 025 9:49am acute August 17, 2024 8:28am Supervision [...] Former smoker resolved October 12, 2024 3:50pm [facility] Work Phone: 1([phone]) 813-596204-07-2025 Evaluation note* Diagnosis Onset Date Resolution Status [...] of high-risk acute November 09, 2024 8:49am [facility] Work Phone: 1([phone]) 125-653203-20-2025 Radiology Diagnostic study note [facility] Imaging Services [address] [place], [place] [address] Transvaginal w/Preg US MR#: [id number] Acct: [id number] Name: HANNAH HENDRICKS Rep #: [id number] : 1990 F 34 From: Mavis Yuan MD PCP: Dr. Thomas Salinas MD Status: REG CLI Study:Transvaginal w/Preg US Date of Exam: 07/02/24 Exam# [id number] Ordering Dr: Maryann Castaneda DO PROCEDURE: TRANSVAGINAL [...] 3. Additional description as above. Reading Location: [id number] CC: Dr. Maryann Bajwa DO; Dr. 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 Thomas Salinas MD Status: REG CLI Study:Transvaginal w/Preg US Date of Exam: 06/25/24 Exam# [id number] Ordering Dr: Maryann Castaneda DO PROCEDURE: TRANSVAGINAL [...] 3. Additional description as above. Reading Location: [id number] CC: Dr. Maryann Bajwa DO; Dr. 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 [facility]12-31-2024 Evaluation note* Diagnosis Onset Date Resolution Status Admit Date Spontaneous acute [facility] 2023 1:50pm [facility] Work Phone: [phone]) [phone] Evaluation note* Diagnosis Onset Date Resolution Status Admit Date Spontaneous inactive [facility] 2023 1:50pm [facility] Work Phone: [phone] Evaluation note* Diagnosis Onset Date Resolution Status Admit Date Spontaneous inactive [facility] 2023 1:50pm Former smoker acute July 20, 2024 1:53pm History of miscarriage, currently acute July 20 1:53pm acute July 20 1:53pm Supervision of high-risk acute July 20, 2024 1:53pm [facility] Work Phone: 1([phone]) 245-712004-13-2024 NoteHNO ID: [id number] Author: DIANA TREJO APRN.MANDEEP Service: ? Author Type: Nurse Practitioner Type: Progress Notes Filed: 07/27/2023 12:13 Note Text: [facility] Care Visit Patient Name: Hannah Hendricks Primary Care Physician: Thomas Salinas MD Service Date: 07/27/2023 SUBJECTIVE: Hannah is an pleasant otherwise well 33 year old female who is here today accompanied by her Mom for evaluation of symptom(s)/complaint(s) as below. Presenting with concern of persistent diarrhea since 07/24/2023. Traveled for work recently to [place]. Had salmon Saturday evening upon arrival to [...] that anything she eats or drinks comes "right out." Pertinent medical history as below: PAST MEDICAL [...] Hearing normal. Nose: Nose normal. Mouth/Throat: Lips: [place]. Mouth: Mucous membranes are moist. Pharynx: Oropharynx [...] hopeful improvement/resolution of symptoms (more content not included)...[facility]04-13-2024 History of Present illness Narrative* Diana Trejo, OPAL.CLINICAL NURSING PROFESSOR - 07/27/2023 11:51 AM EDT Images from the original note were not included. [facility] Visit Patient Name: Hannah Hendricks Primary Care Physician: Thomas Salinas MD Service Date: 07/27/2023 SUBJECTIVE: Hannah is an pleasant otherwise well 33 year old female who is here today accompanied by her Mom for evaluation of symptom(s)/complaint(s) as below. Presenting with concern of persistent diarrhea since 07/24/2023. Traveled for work recently to [place]. Had salmon Saturday evening upon arrival to [...] that anything she eats or drinks comes " right out." Pertinent medical history as below: PAST MEDICAL [...] Hearing normal. Nose: Nose normal. Mouth/Throat: Lips: [place]. Mouth: Mucous membranes are moist. Pharynx: Oropharynx [...] 07/27/2023 Time: 11:51 AM documented in this encounterCleveland [id number] Instructions* Patient Instructions* Diana Trejo OPAL.CLINICAL NURSING PROFESSOR - 07/27/2023 11:43 AM EDT Assessment and [...] new or worsening symptoms. documented in this encounterRegency Hospital [facility]10-25-2023 NoteHNO ID: [id number] Author: Konstantin Kirkland MD Service: ? Author [...] 2022 after 19 visits. PAIN EVALUATION 02/03/2023 2229 02/06/2023 0839 Pain Level: 3 2 Pain Location: [...] 106/73 Pulse 101 Ht 165.1 cm (5' 5") Wt 73.9 kg (163 lb) LMP 03/14/2022 [...] Past Histories independently gathered by the clinical ict support engineer and the remaining scribed note accurately describes my personal service to the patient. The documentation for this note was completed by Grace Mojica acting as scribe for Konstantin Kirkland MD. February 06, 2023 8:50 AM. I agree with the operative note independently gathered by the clinical ict support engineer and the remaining scribed note accura (more content not included)...[facility]arm[facility]z66-39-6928 History of Present illness Narrative* Konstantin Kirkland [...] 106/73 Pulse 101 Ht 165.1 cm (5' 5") Wt 73.9 kg (163 lb) LMP 03/14/2022 [...] Past Histories independently gathered by the clinical ict support engineer and the remaining scribed note accurately describes my personal service to the patient. The documentation for this note was completed by Grace Mojica acting as scribe for Konstantin Kirkland MD. February 06, 2023 8:50 AM. I agree with the operative note independently gathered by the clinical ict support engineer and the remaining scribed note accurately describes my personal service to the patient. SIGNATURE: Konstantin Kirkland MD PATIENT NAME: Hannah Hendricks DATE: February 06, 2023 TIME: 8:49 AM PAGER: documented in this encounterRegency Hospital [facility]09-18-2023 NoteHNO ID: [id number] Author: Nehemias Suarez, PT, DPT Service: ? [...] reviewed in detail this date to promote intermediate therapeutic gains. Patient was seen for 19 [...] > 2---Partially Achieved (R - not achieved) [place] in home exercise program.---Achieved Patient will decrease [...] states that sxs resolved with rest and healthcare risk control consultant. Pt states that sxs are located to [...] Time : 1800 Session Stop Time : 1834 Nehemias Suarez PT, [facility]09-18-2023 History of Present illness Narrative* Nehemias Suarez PT, T - 12/31/2022 6:01 PM EDT Episode Visit [...] reviewed in detail this date to promote lobsterman therapeutic gains. Patient was seen for 19 [...] > 2---Partially Achieved (R - not achieved) [place] in home exercise program.---Achieved Patient will decrease [...] states that sxs resolved with rest and healthcare risk control consultant. Pt states that sxs are located to [...] Nehemias Suarez PT, DPT documented in this encounterRegency Hospital Toledo08-16-2023 NoteHNO ID: [id number] Author: Nehemias Suarez PT, DPT Service: ? [...] > 2---Partially Achieved (R - not achieved) [place] in home exercise program.---Achieved Patient will decrease [...] Patient to be seen for Therapeutic exercise (65155), Neuromuscular re-education (28691), Manual therapy (98771), Therapeutic activities (56021), Self-assisted management (10716), Patient/Family/Caregiver Education SUBJECTIVE: Pt states that she has been "good". Pt notes a little bit of an issue a few weeks ago, went to chiropractor and feels like she is back in alignment. Pt states that she has some discomfort to tail bone/belt line when she planks. Pt reports that recent flare up limited her adherence to HEP but she is active with [employer] body classes and riding her back. Pt [...] and decrease pain. Utilized (more content not included)...[facility] HospitalJshlomli68-20-4499 History of Present illness Narrative* Nehemias Suarez, [...] > 2---Partially Achieved (R - not achieved) [place] in home exercise program.---Achieved Patient will decrease [...] Patient to be seen for Therapeutic exercise (40385), Neuromuscular re-education (85465), Manual therapy (30708), Therapeutic activities (97706), Self-assisted management (29948), Patient/Family/Caregiver Education SUBJECTIVE: Pt states that she has been "good". Pt notes a little bit of an [...] Session Stop Time : 1842 Nehemias Suarez PT DPJaime documented in this encounterRegency Hospital [facility]edo07-12-2023 NoteHNO ID: [id number] Author: Nehemias Suarez PT, DPT Service: ? [...] REPORT PLAN OF CARE UPDATE: Assessment: Hannah Mcmahanrias demonstrates good progress towards therapy goals over [...] > 2---Partially Achieved (R - not achieved) [place] in home exercise program.---Achieved Patient will decrease [...] Patient to be seen for Therapeutic exercise (92324), Neuromuscular re-education (05008), Manual therapy (51591), Therapeutic activities (39657), Self-assisted management (65511), Patient/Family/Caregiver Education SUBJECTIVE: Patient Reason for Visit: Pt states that she has been doing pretty good. Pt states that her L SI joint pain is improving. Pt has continued to f/u with chiro every few weeks. Pt states that she feels "pulling" to L side with bending forward. Pt [...] review 11: *prone pr (more content not included)...[facility] HospitalEssiscbu16-18-2514 NoteHNO ID: [id number] Author: Nehemias Suarez PT, DPT Service: ? [...] ASLR to a score > 2---Not Achieved [place] in home exercise program.---Achieved Patient will decrease [...] Patient to be seen for Therapeutic exercise (79859), Neuromuscular re-education (36570), Manual therapy (93139), Therapeutic activities (23829), Self-assisted management (25726), Patient/Family/Caregiver Education SUBJECTIVE: Patient Reason for Visit: [...] 8: *hamstring stretch, review (more content not included)...[facility] 09-12-2022 History of Present illness Narrative* [...] ASLR to a score > 2---Not Achieved [place] in home exercise program.---Achieved Patient will decrease [...] Patient to be seen for Therapeutic exercise (94625), Neuromuscular re-education (62015), Manual therapy (74472), Therapeutic activities (38562), Self-assisted management (92267), Patient/Family/Caregiver Education SUBJECTIVE: Patient Reason for Visit: [...] Nehemias Suarez PT, DPT documented in this encounterRegency Hospital [facility]edo05-17-2023 NoteHNO ID: [id number] Author: Juliano Urias PTA Service: ? Author Type: Roguer Type: Progress Notes Filed: 08/29/2022 6:46 PM [...] SUBJECTIVE: Patient Reason for Visit: Patient reports "Saturday, last week, I sat in a chair, [...] Total Treatment Time Minutes (timed/untimed): 38 [facility] Miscellaneous Notes* Telephone Encounter - Italia Ackerman RN - 08/28/2022 9:44 AM EDT Will forward for review. documented in this encounterRegency Hospital [facility]edo05-03-2023 NoteHNO ID: [id number] Author: Nehemias Suarez PT, DPT Service: ? [...] ASLR to a score > 2---Partially Achieved [place] in home exercise program.---Achieved Patient will decrease [...] Patient to be seen for Therapeutic exercise (82129), Neuromuscular re-education (89784), Manual therapy (90751), Therapeutic activities (10967), Self-assisted management (78303), Patient/Family/Caregiver Education SUBJECTIVE: Patient Reason for Visit: [...] review 5: *prone pre (more content not included)...[facility] HospitalZxchylbt24-73-9721 History of Present illness Narrative* Nehemias Suarez PT, DPT - 08/15/2022 6:06 PM EDT [...] ASLR to a score > 2---Partially Achieved [place] in home exercise program.---Achieved Patient will decrease [...] Patient to be seen for Therapeutic exercise (43678), Neuromuscular re-education (88615), Manual therapy (25476), Therapeutic activities (73720), Self-assisted management (16698), Patient/Family/Caregiver Education SUBJECTIVE: Patient Reason for Visit: [...] Nehemias Suarez PT, DPT documented in this encounterRegency Hospital [facility]edo04-17-2023 History of Present illness Narrative* Konstantin Kirkland [...] today. Continue physical therapy 2. Follow up: PRN I spent 15 minutes discussing with the patient her current symptoms and future plan I have communicated my name and active licensure. The patient's identity and physical location wereverified at the time of this visit. Either the patient or their legal business banking representative has been informed of the risks and benefits of -- and alternatives to -- treatment through a remote evaluation andconsents to proceed with the evaluation remotely. SIGNATURE: Konstantin Kirkland MD PATIENT NAME: Hannah Hendricks DATE: July 30, 2022 TIME: 9:00 AM PAGER: documented in this encounterRegency Hospital [facility]edo04-03-2023 NoteHNO ID: [id number] Author: Nehemias Suarez PT, DPT Service: ? [...] ASLR to a score > 2---Not Achieved [place] in home exercise program.---Achieved Patient will decrease [...] Patient to be seen for Therapeutic exercise (96040), Neuromuscular re-education (84149), Manual therapy (91158), Therapeutic activities (71621), Self-assisted management (05874), Patient/Family/Caregiver Education SUBJECTIVE: Patient Reason for Visit: [...] Total Treatment Time [place] (more content not included)...[facility] 07-16-2022 History of Present illness Narrative* Nehemias Suarez, PT, DPT - 07/16/2022 12:35 PM EDT Episode Visit Count: 13 Therapist That Will Accept/Oversee The Plan Of Care: Nehemias Suarez Start of Care Date: 04/20/22 Onset Date: 03/20/22 Patient Identified by Name and Date of : Yes REHABILITATION AND SPORTS THERAPY PHYSICAL THERAPY PROGRESS REPORT PLAN OF CARE UPDATE: Assessment: Hannah Hendircks demonstrates good progress towards therapy goals over [...] ASLR to a score > 2---Not Achieved [place] in home exercise program.---Achieved Patient will decrease [...] Patient to be seen for Therapeutic exercise (86069), Neuromuscular re-education (52878), Manual therapy (02081), Therapeutic activities (50112), Self-assisted management (03581), Patient/Family/Caregiver Education SUBJECTIVE: Patient Reason for Visit: [...] Nehemias Suarez PT, DPT documented in this encounterRegency Hospital [facility]edo03-27-2023 NoteHNO ID: [id number] Author: Nehemias Suarez PT, DPT Service: ? [...] inch step TREATMENT: Therapeutic Exercise: 1: arc education trainer, L5, x 5 minutes, to increase [...] Time Minutes (timed/untimed): 41 Nehemias Suarez PT, [facility]03-27-2023 History of Present illness Narrative* Nehemias [...] inch step TREATMENT: Therapeutic Exercise: 1: arc education trainer, L5, x 5 minutes, to increase [...] Nehemias Suarez PT, DPT documented in this encounterRegency Hospital [facility]edo03-20-2023 NoteHNO ID: [id number] Author: Juliano Urias PTA Service: ? Author Type: Roguer Type: Progress Notes Filed: 07/02/2022 4:28 PM [...] SUBJECTIVE: Patient Reason for Visit: Patient reports "I have been doing a lot better. It's centralized. The extension exercises are helping. The left side is better but now the right side is bothering me. " Pain: Pain Pain Level: 1 Pain Location: [...] Total Treatment Time Minutes (timed/untimed): 40 Juliano [facility]Ohio[facility]03-13-2023 NoteHNO ID: [id number] Author: Nehemias Suarez PT, DPT Service: ? [...] Time Minutes (timed/untimed): 40 Nehemias Suarez PT, [facility]03-13-2023 History of Present illness Narrative* Nehemias [...] Nehemias Suarez PT DPJaime documented in this encounterRegency Hospital [facility]edo03-06-2023 NoteHNO ID: [id number] Author: Nehemias Suarez PT, DPT Service: ? [...] ASLR to a score > 2---Not Achieved [place] in home exercise program.---Achieved Patient will decrease [...] Patient to be seen for Therapeutic exercise (47672), Neuromuscular re-education (51702), Manual therapy (63826), Therapeutic activities (68727), Self-assisted management (85117), Patient/Family/Caregiver Education PLAN FOR NEXT VISIT: prone [...] with disability. 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 Functional Limitation Comments: sitting, bending [...] as above (*). Mk (more content not included)...[facility] HospitalWeqkdoju63-75-6950 NoteHNO ID: [id number] Author: Juliano Urias PTA Service: ? Author Type: Roguer Type: Progress Notes Filed: 06/11/2022 4:28 PM [...] Treatment Time Minutes (timed/untimed): 40 Juliano Urias [facility]02-27-2023 History of Present illness Narrative* [facility] 12:19 PM EST Episode [...] 40 Juliano Urias PTA documented in this encounterRegency Hospital [facility]edo02-20-2023 NoteHNO ID: [id number] Author: Juliano Urias PTA Service: ? Author Type: Roguer Type: Progress Notes Filed: 06/04/2022 4:43 PM [...] SUBJECTIVE: Patient Reason for Visit: Patient reports "I started back to work. 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 I still have that pain in my left lower back , mostly it's annoying. It doesn't stop me from doing anything. Its a dull pain. I had muscle pain in my legs but none in back after last session. Yesterday, I had some left knee pain, intermittent. Starting lifting daughter but limiting it. " Patient is concerned regarding numbness in right thigh. ACID TANK LINER educated patient that numbness is common after [...] Total Treatment Time Minutes (timed/untimed): 50 Juliano [facility]02-15-2023 NoteHNO ID: [id number] Author: Nehemias Suarez, PT, DPT Service: ? [...] Time Minutes (timed/untimed): 46 Nehemias Suarez PT, [facility]02-15-2023 History of Present illness Narrative* Nehemias [...] Nehemias Suarez PT, DPT documented in this encounterRegency Hospital [facility]edo02-13-2023 NoteHNO ID: [id number] Author: Sheela Glover RN Service: ? Author Type: Registered Nurse Type: Progress Notes Filed: 05/28/2022 6:21 PM Note Text: I was able to connect with pt via phone call and explained that the fax is not going through. She will look for another fax number, but also can see the copy of the letter in her MyChart.[facility] HospitalEokprtoy25-01-3559 NoteHNO ID: [id number] Author: Sheela Glover RN Service: ? Author Type: Registered Nurse Type: Progress Notes Filed: 05/28/2022 6:21 PM Note Text: RTW letter created and Uploaded to [employer]. The number the pt provided ([phone]) does not work. Also after Googling her employer and finding another local fax number ([phone]), that also did not work. I called pt 3 times and left a message with no reply.[facility] HospitalJcskkpjl93-75-9773 NoteHNO ID: [id number] Author: Konstantin Kirkland MD Service: ? Author Type: Physician Type: Progress Notes Filed: 05/28/2022 6:21 PM Note Text: [phone] 05/30 No [facility]02-13-2023 NoteHNO ID: [id number] Author: Konstantin Kirkland MD Service: ? Author Type: Physician Type: Progress Notes Filed: 05/28/2022 6:32 PM Note Text: SPINE SURGERY FOLLOW UP This is a virtual visit using Dolphin video visit. It required patient-provider interaction for [...] 2022 TIME: 1:56 PM PAGER: Layne Roland, attest that this document has been prepared under the direction and in the presence of Konstantin Kirkland MD on May 28, 2022 at 2:05 PM.[facility] HospitalFatvfhev97-57-4096 NoteHNO ID: [id number] Author: Nehemias Suarez PT, DPT Service: ? [...] ASLR to a score > 2---Not Achieved [place] in home exercise program.---Achieved Patient will decrease [...] Patient to be seen for Therapeutic exercise (03990), Neuromuscular re-education (60765), Manual therapy (95358), Therapeutic activities (21216), Self-assisted management (81539), Patient/Family/Caregiver Education PLAN FOR NEXT VISIT: update to [facility] SUBJECTIVE: Patient Reason for Visit: Pt plans [...] SLR Flexibility: passive ~50 (more content not included)...[facility] HospitalZwqhesuw32-18-3833 History of Present illness Narrative* Nehemias Bill, PT, DPT - 05/21/2022 1:24 PM EST [...] ASLR to a score > 2---Not Achieved [place] in home exercise program.---Achieved Patient will decrease [...] Patient to be seen for Therapeutic exercise (68661), Neuromuscular re-education (47891), Manual therapy (77240), Therapeutic activities (00571), Self-assisted management (74409), Patient/Family/Caregiver Education PLAN FOR NEXT VISIT: update to [facility] SUBJECTIVE: Patient Reason for Visit: Pt plans [...] to challenge endurance/core strength 3: *posterior chain flat spring assembler, supine, review 4: *hip ABD iso, review [...] Nehemias Suarez PT, DPT documented in this encounterRegency Hospital [facility]01-23-2023 Miscellaneous Notes* Telephone Encounter - Italia Ackerman RN - 05/07/2022 3:07 PM EST Will forward for review. documented in this encounterRegency Hospital [facility]edo01-23-2023 History of Present illness Narrative* Juliano Urias PTA - 05/07/2022 10:49 AM EST Episode Visit [...] Tingling in left lateral and anterior thigh. /10 with sitting in car Pain: Pain Pain [...] 48 Juliano Urias PTA documented in this encounterRegency Hospital [facility]edo01-16-2023 History of Present illness Narrative* Juliano Urias [...] SUBJECTIVE: Patient Reason for Visit: Patient reports "It's gotten where ai can do the stretches. No pain where the surgery was (incision) . I had surgery in December and March for a herniated disc. Still no bending twisting or lifting." Then patient reports that she is allowed [...] 45 Juliano Urias PTA documented in this encounterRegency Hospital [facility]01-11-2023 NoteHNO ID: [id number] Author: Konstantin Kirkland MD Service: ? Author [...] DATE: April 24, 2022 TIME: 3:15 PM PAGER:[phone] History of Present illness Narrative* Konstantin Kirkland [...] TIME: 3:15 PM PAGER: documented in this encounterRegency Hospital [facility]edo01-06-2023 History of Present illness Narrative* Nehemias Suarez PT, DPT - 04/20/2022 10:52 AM EST Episode Visit Count: 1 Therapist That Will Accept/Oversee The Plan Of Care: Nehemias Suarez Start of Care Date: 04/20/22 Onset Date: 03/20/22 Patient Identified by Name and Date of : Yes REHABILITATION AND SPORTS THERAPY PHYSICAL THERAPY EVALUATION PLAN OF CARE: Assessment: Hannah Bacacharias presents s/p L4/L5 microdiscectomy surgery on 03/20/2022. [...] FMS ASLR to a score > 2 [place] in home exercise program. Patient will decrease pain rating by 2 points to meet minimal clinical important difference for numeric pain rating scale. Patient Goals: decrease pain, improve posteiror chain extensibiltiy Planned Interventions, Frequency, and Duration: Current Frequency: 2x/week Duration: 4 weeks Total Number of Visits Planned: 8 Planned Treatment Interventions: Therapeutic exercise (49325);Neuromuscular re- education (56812);Manual therapy (16155);Therapeutic activities (74542);Self- assisted management (56964);Patient/Family/Caregiver Education Patient demonstrates good understanding of plan [...] bending overand pulling weeds. Pt initially utilized healthcare risk control consultant which did not resolve sxs. Pt then [...] Nehemias Suarez PT, DPT documented in this encounterRegency Hospital [facility]edo12-23-2022 NoteHNO ID: [id number] Author: Konstantin Kirkland MD Service: ? Author [...] DATE: April 06, 2022 TIME: 6:35 AM PAGER:[facility] [id number] History of Present illness Narrative* Konstantin Kirkland [...] TIME: 6:35 AM PAGER: documented in this encounterRegency Hospital [facility]edo12-15-2022 Miscellaneous Notes* Telephone Encounter - Kelsy Waterman RN - 03/29/2022 11:17 AM EST Call placed to patient. Patient states she is concerned that she "may have pulled a muscle in her back while sleeping." C/O pain in left side of lower back above the left hip area. At times she feelsa "pulling" in the area. States she tensed up [...] last week. Please call to advise at [phone]. documented in this encounterRegency Hospital [facility]edo12-06-2022 NoteHNO ID: [id number] Author: Alexandra Lombardo APRN.E MAIL SYSTEM ADMINISTRATOR Service: Anesthesiology Author Type: Nurse Leasing Specialist Type: Anesthesia Procedure Notes Filed: 03/20/2022 12:35 PM Note Text: ANESTHESIOLOGY PROCEDURE NOTE Airway General Information Procedure Start Time/Medication Administration: 03/20/2022 12:17 PM Patient location during procedure: OR Timeout Performed Pre-procedure: timeout performed Patient identity confirmed: arm band, care steam press tender and patient Staffing Anesthesiologist: Mark Chavez MD E MAIL SYSTEM ADMINISTRATOR: Alexandra Lombardo APRN.E MAIL SYSTEM ADMINISTRATOR Performed by: E MAIL SYSTEM ADMINISTRATOR Indications and Patient Condition Indications for airway [...] attempts at approach: 1 SIGNATURE: Alexandra Lombardo APRN.CRNA PATIENT NAME: Hannah Hendricks DATE: March 20, 2022 TIME: 12:35 PM CSN: [id number] Instructions* Patient Instructions* Agnes Matthews PA-C - 03/19/2022 1:02 PM EST PATIENT PREOPERATIVE INSTRUCTIONS Konstantin Kirkland MD has scheduled you for your procedure at this surgery center: [facility]: [phone] [place] [address]. On your scheduled day of surgery, please [...] Procedures: - YOU MUST HAVE A RESPONSIBLE COTTON CLEANER TAKE YOU HOME. A MORTGAGE FUNDER OR REED MAN CANNOT BE MADE A RESPONSIBLE COTTON CLEANER. - We recommend that a responsible person [...] Advance Directive, please fax a copy to [phone] or email to for it to be [...] day. Agnes Matthews PA-C documented in this encounterRegency Hospital [facility]edo12-05-2022 History and physical note * Agnes Matthews [...] fevers. Neurological: No history of TIA's, stroke, ACTIVITIES COUNSELOR tumor, impaired sensorium, hemiplegia, paraplegia orquadraplegia. No [...] 97.9 (Temporal Artery) Resp 16 Ht 5' 5" (1.65m) Wt 171 lb (77.6kg) SpO2 97% [...] 422 QTC Calculation (Bazett) 431 Calculated P Spiro -8 Calculated R Spiro 79 Calculated T Spiro 49 Impression NORMAL SINUS RHYTHM RSR' OR QR PATTERN IN V1 SUGGESTS RIGHT VENTRICULAR CONDUCTION DELAY BORDERLINE ECG no STEMI Confirmed by MD GALINDO STEVEN ([id number]), manager editorial ROSEMARY MALDONADO ([id number]) on 11/16/2021 6:44:48 AM No results found for this or any previous visit (from the past 29682 hour(s)). Assessment Electronic cigarette use Assessment: occasional [...] large neck Non-male patient STOP-Bang Score: 0 [id number] Score: Age: <65 Sex: female [id number] Score: 1 ARISCAT Score: Age: <=50 ARISCAT [...] 12:35 PM PAGER/CONTACT #: documented in this encounterRegency Hospital [facility]edo12-02-2022 Miscellaneous Notes* Telephone Encounter - Italia Ackerman RN - 03/16/2022 3:37 PM EST Answered question when patient was being scheduled for PAT. * Telephone Encounter - Karen Long - 03/16/2022 3:33 PM EST Patient at [phone] is requesting a call back. She has another question about medication. * Telephone Encounter - Italia Ackerman RN - 03/16/2022 2:[address] Kirkland spoke with patient. Will be having surgery on 03/20/22. * Telephone Encounter - Italia Ackerman RN - 03/16/2022 2:08 PM EST Will forward for review. * Telephone Encounter - Karen Long - 03/16/2022 1:32 PM EST Patient at [phone] is requesting a call back Re: MRI results. She is quite upset. documented in this encounterRegency Hospital [facility]12-02-2022 History of Present illness Narrative* RT Nova(R) [...] IV DATA: Not applicable SIGNED BY: BEN BROOKS(R) March 16, 2022 8:35 AM documented in this encounterRegency Hospital [facility]12-01-2022 Miscellaneous Notes* Telephone Encounter - Britt Moreno - 2022 10:11 AM EST Physician: Dr Kirkland Call from patient requesting refill. Please E-Scribe Last OV: 03/05/22 with Asif Future OV: 05/17/22 with Asif Requested Prescriptions Pending Prescriptions Disp Refills methocarbamol (ROBAXIN-750) 750 mg tablet 40 tablet 0 Sig: Take 1 tablet by mouth three times daily as needed. Pharmacy Name: [facility] Phone #: [phone] Britt Moreno documented in this encounterRegency Hospital [facility]edo11-28-2022 Miscellaneous Notes* Telephone Encounter - Kelsy Waterman [...] 9:10 AM EST Patient called yesterday to investor relations associate provider. Will forward for review. * Telephone Encounter - Darlene Ferrera - 03/12/2022 8:33 AM EST Patients first day working and states she is in extreme pain, feels she cannot take it, the top of her right leg and her lower back is stiff, states pain is 7 out of 10. Please call patient at [phone] Electronically signed by [facility] at 03/12/2022 8:35 AM EST documented in this encounterRegency Hospital [facility]edo11-27-2022 Miscellaneous Notes* Plan of Care - Adelso [...] Adelso Kelly MD PGY-2, Neurological Surgery Pager: [phone] Neurosurgery investor relations associate: [id number] 7:15 PM 03/11/22 CURRENT OVERNIGHT RESIDENT Please page [phone] between 6:30 AM and 6:00PM documented in this encounterRegency Hospital [facility]edo11-27-2022 Miscellaneous Notes* Telephone Encounter - Ximena Lewis RN - 03/11/2022 6:29 PM EST Patient calling regarding back surgery. Conferenced to [facility] ball mill operator, Emili, to speak with provider investor relations associate for Dr. Kirkland at phone number ( - - ). documented in this encounterRegency Hospital Toledo11-21-2022 History of Present illness Narrative* Konstantin Kirkland [...] Adult) Pulse 96 Ht 165.1 cm (5' 5") Wt 81.1 kg (178 lb 11.2 oz) [...] TIME: 8:55 AM PAGER: documented in this encounterRegency Hospital [facility]edo11-07-2022 Miscellaneous Notes* Telephone Encounter - Kelsy Waterman RN - 02/19/2022 10:40 AM EST Called [facility]. Per pharmacist pt was not able to merchandise pickup/receiving associate prescription; was too soon for merchandise pickup/receiving associate but able to merchandise pickup/receiving associate today. Call placed to patient to update. Verbalizes understanding. * Telephone Encounter - Britt Louie Pss - 02/19/2022 10:20 AM EST The patient called stating when she went to [facility] to merchandise pickup/receiving associate the Robaxin, the pharmacy told her that it was cancelled by our office the same day they received it. Please call patient to advise at [phone] documented in this encounterRegency Hospital [facility]edo10-25-2022 History of Present illness Narrative* Konstantin Krikland MD - 02/06/2022 7:01 AM EDT SPINE [...] (98.4 F) (Temporal) Ht 165.1 cm (5' 5") Wt 79.7 kg (175 lb 12.8 oz) [...] TIME: 7:02 AM PAGER: documented in this [facility]10-24-2022 Miscellaneous Notes* Telephone Encounter - Italia Ackerman RN - 02/05/2022 1:37 PM EDT Work extension paperwork received, completed and faxed to number requested. Faxed verification received. documented in this [facility]10-19-20[facility] Miscellaneous Notes* Telephone Encounter - Radha Dickens [...] on 12/19/21. Please call to advise at [phone] documented in this encounterRegency Hospital [facility]edo10-11-2022 Miscellaneous Notes* Telephone Encounter - Italia Ackerman RN - 01/23/2022 9:34 AM EDT Letter faxed to number requested. Faxed verification received. documented in this encounterRegency Hospital [facility]edo09-07-2022 Miscellaneous Notes* Telephone Encounter - Radha Mederos [...] Patient would appreciate a call back at [phone]. documented in this encounterRegency Hospital [facility]edo09-06-2022 NoteHNO ID: [id number] Author: BRENNON Ma Service: Anesthesiology Author Type: Psychology Professor Type: Anesthesia Procedure Notes Filed: 12/19/2021 8:02 [...] December 19, 2021 TIME: 8:01 AM CSN: [id number] Miscellaneous Notes* Telephone Encounter - Maryann Matthews - 12/12/2021 3:26 PM EDT Short term disability paperwork has been sent to [facility]. Date of service 04/15/21 documented in this encounterRegency Hospital Toledo08-29-2022 Miscellaneous Notes* Telephone Encounter - Ashwini Cadet APRN.CNP - 12/11/2021 9:38 AM EDT The following approved medication requests have been transmitted electronically. Requested Prescriptions Signed Prescriptions Disp Refills gabapentin (NEURONTIN) 300 mg capsule 120 capsule 0 Sig: Take 1 capsule in the morning Take 1 capsule in the afternoon Take 2 capsules at bedtime Ashwini Cadet APRN.CNP * Telephone Encounter - Danisha Burden RN - 12/11/2021 9:14 AM EDT Images from the original note were not included. Per mychart encounter from 11/20/2021: Last prescribed 11/16/2021 at [facility] New prescription pended at this time reflecting the increase dosage documented in this encounterRegency Hospital Toledo08-25-2022 Miscellaneous Notes* Telephone Encounter - Italia Ackerman RN - 12/07/2021 3:50 PM EDT Note faxed as requested. Faxed verification received. * Telephone Encounter - Susie Myles - 12/07/2021 2:58 PM EDT Ankush from [facility] calling to get clinicals from neurosurgeon, saying he needs them to complete the prior auth for surgery. States that if he does not have them within 30 - 40 minutes, that the case will be closed and a new prior authorization would need to be completed. . [phone] fax [phone] documented in this encounterRegency Hospital Toledo08-25-2022 History of Present illness Narrative* Konstantin Kirkland MD - 12/07/2021 3:03 PM EDT Images from the original note were not included. SPINE SURGERY NEW PATIENT PCP: Yana Ballard APRN.CLINICAL NURSING PROFESSOR REFERRING PROVIDER: Dr. Feng Wrihgt SUBJECTIVE HISTORY OF PRESENT ILLNESS: Hannah Hendricks [...] 12/14/2021] mupirocin (BACTROBAN) 2 % ointment Apply 1/2" ointment with a cotton swab in each [...] (97.6 F) (Temporal) Ht 165.1 cm (5' 5") Wt 79.2 kg (174 lb 9.6 oz) [...] TIME: 3:03 PM PAGER: documented in this encounterRegency Hospital Toledo08-24-2022 History and physical note * Barbara James APRN.MANDEEP - 12/06/2021 1:50 PM EDT HISTORY AND PHYSICAL EXAMINATION SERVICE DATE: 12/06/2021 SERVICE TIME: 2:00 PM PRIMARY CARE PHYSICIAN: Yana Ballard APRN.CNP REASON FOR VISIT: Hannah Hendricks is a [...] needed. mupirocin (BACTROBAN) 2 % ointment Apply 1/2" ointment with a cotton swab in each [...] fevers. Neuro: No history of TIA's, stroke, ACTIVITIES COUNSELOR tumor, impaired sensorium, hemiplegia, paraplegia or quadraplegia. [...] or incontinence,, stones or chronic kidney disease FRENCH PASTRY COOK: Negative for abnormal vaginal bleeding, abnormal vaginal [...] 97.3 (Temporal Artery) Resp 16 Ht 5' 5" (1.65m) Wt 174 lb 3.2 oz (79.0kg) [...] 2021 TIME: 2:00 PM documented in this encounterRegency Hospital Toledo08-24-2022 Instructions* Patient Instructions* Barbara James APRN.CNP - 12/06/2021 7:49 AM EDT PATIENT PREOPERATIVE INSTRUCTIONS Konstantin Kirkland MD has scheduled you for your procedure at this surgery center: [facility]: [phone] --[address] [place] [address]. On your scheduled day of surgery, please [...] Procedures: - YOU MUST HAVE A RESPONSIBLE COTTON CLEANER TAKE YOU HOME. A MORTGAGE FUNDER OR REED MAN CANNOT BE MADE A RESPONSIBLE COTTON CLEANER. - We recommend that a responsible person [...] Advance Directive, please fax a copy to [phone] or email to for it to be [...] your chart that day. documented in this encounterRegency Hospital Toledo08-22-2022 Nurse Note* Italia Ackerman RN - 12/04/2021 3:50 PM EDT Neuro SPINE CARE COORDINATION PRE-OP VISIT Met with patient and family member for pre op education. Given both written and verbal instructionsre : Skin prep, wound care, pain management and post op restrictions. Provided to patient: [facility] Surgery Guide, skin prep supplies, Spine Surgery Pre/post op education packet. Yes. Reviewed with patient to report to the registration desk for surgery? Yes. Reviewed with the patient that a surgery student services representative will call the working day prior [...] microdiscectomy. PACC will be scheduled by office. [facility]quest : N/A Medications reviewed : Yes. Meds to be stopped prior to surgery : NSAIDS. Additional pre op clearances needed : none. Any implanted devices : No. Transplant History No. Patient will get optimization lab work : to be completed at [facility]. Questions answered. Patient verbalizes understanding via teach back. Additional comments : Informed to call with any questions or concerns. Italia Ackerman RN documented in this encounterRegency Hospital Toledo08-22-2022 History of Present illness Narrative* Ashwini Cadet, OPAL.CLINICAL NURSING PROFESSOR - 12/04/2021 11:32 AM EDT VIRTUAL VISIT PROGRESS NOTE This is a virtual visit using Dolphin video visit. It required patient-provider interaction for [...] throughout the day she is able to "function" Reports that she is trying to stay [...] and she has been eating bananas and wivqkcuvtm-kyv-kungkdu. She is not sure if she should be on prescription strength and has reached out to her PCP She reports walking decreases her pain but she is still experiencing the pins and needles She reports throbbing in the low back and right buttocks She has been using a "comfy cushion" she purchased from [employer] She has an appt today with Dr. Kirkland. PLAN: Appt with Dr. Kirkland today Trying to stretch Continue gabapentin and robaxin as needed 4. Follow up to be determined There are no Patient Instructions on file for this visit. I spent a total of 20 minutes on the date of the service which included preparing to see the patient, bmrk-nj-vhzv patient care, and completing clinical documentation Ashwini Cadet APRN.MANDEEP documented in this encounterRegency Hospital [facility]edo08-12-2022 Miscellaneous Notes* Telephone Encounter - Ashwini Cadet APRN.CNP - 11/24/2021 3:25 PM EDT Paperwork completed * Telephone Encounter - Kristan Castellano Ma - 11/23/2021 10:30 AM EDT STD paperwork received via fax. Please allow 7-10 business days for completion. Forwarded to provider for review. documented in this encounterRegency Hospital [facility]edo08-10-2022 History of Present illness Narrative* Ashwini Cadet APRN.CNP - 11/22/2021 10:05 AM EDT VIRTUAL VISIT PROGRESS NOTE This is a virtual visit using Dolphin video visit. It required patient-provider interaction for [...] right posterior lower extremity She is experiencing sttw-qky-ztefjos and tingling in the right leg and [...] which included preparing to see the patient, sobl-hq-avtp patient care, and completing clinical documentation Ashwini Cadet APRN.CNP documented in this encounterRegency Hospital [facility]edo08-05-2022 History of Present illness Narrative* Ashwini Cadet APRN.CNP - 11/17/2021 9:42 AM EDT VIRTUAL VISIT PROGRESS NOTE This is a virtual visit using Dolphin video visit. It required patient-provider interaction for [...] called 911 and was transported to the [place] ER. While in the ER she was [...] to spine surgery consult Discussed sending a Dolphin message in a week to report how [...] which included preparing to see the patient, bqwx-tq-ywvt patient care, completing clinical documentation and ordering medications, tests, or procedures Ashwini Cadet APRN.MANDEEP documented in this encounterRegency Hospital [facility]edo08-04-2022 Miscellaneous Notes* Telephone Encounter - Elli South [...] better controlled. * Telephone Encounter - Elli South - 11/16/2021 11:53 AM EDT Patient phoned [...] about that change. Patient also advised the [place] Management provider placed a referral for the patient to see a Spinal Surgeon and that she should be receiving a call today to schedule that consult. Please advise, Elli oSuth documented in this encounterRegency Hospital Toledo08-03-2022 History of Present illness Narrative* Dulce Wong APRN.CNP - 11/15/2021 6:38 PM EDT Images from the original note were not included. [employer] November 15, 2021 Hannah L Eladio 1990 Patient presents with: Back Pain There [...] Dulce Wong APRN.CNP Telemedicine documented in this encounterRegency Hospital [facility]edo07-25-2022 Miscellaneous Notes* Telephone Encounter - Yana Ballard [...] Refusal: A Refill not appropriate Yana Ballard APRN.CNP * Telephone Encounter - Rozina Corona RN [...] Function tests in . Thyroid, 2019:29:3:412-420. Oni Triplett et al. 2017 Guidelines of the [place] Thyroid Association for the Diagnosis and Management of Thyroid Disease during and the . Thyroid, 2017:27:3:315-389. Pharmacy has been captured: Yes. Patient prefers: [facility]. documented in this encounterRegency Hospital Toledo07-21-2022 Miscellaneous Notes* Telephone Encounter - Alma Bello APRN.CNP - 11/02/2021 1:28 PM EDT Entered in error documented in this encounterRegency Hospital Toledo06-29-2022 History of Present illness Narrative* Feng Wright MD - 10/11/2021 9:21 AM EDT [facility] Pain Management Department Date: October 11, 2021 [...] Panel: No results found for: UQCANN, UQBNZL, HQQ4VFR, UQAMPH, UQMAMP, UQBUPRE, UQNORBUP, UQMTHD, UQEDDP, UQTRAM, [...] but also diagnostic information that procedures provide. longterm use of any opioid pain medication is [...] October 11, 2021 cc: Yana Ballard [id number] [facility] [id number] [facility] [id number] Results of consultation to be transmitted via electronic medical record for those providers who practice within [facility] or with access to [employer] via MD Connect, or via letter. documented in this encounterRegency Hospital Toledo06-28-2022 Miscellaneous Notes* Telephone Encounter - [facility] - 10/10/2021 10:50 AM EDT Patient was scheduled for 10/11/21 with pain management. No further action needed. [facility] * Telephone Encounter - Yana Ballard APRN.CNP - 10/10/2021 6:53 AM EDT Please assist patient with scheduling in pain management. Dr. Santiago is preferred if appt available upcoming. Thank you. documented in this encounterRegency Hospital Toledo06-25-2022 Miscellaneous Notes* Telephone Encounter - Yana Ballard [...] for 30 days. Authorizing Provider: YANA BALLARD APRN.CLINICAL NURSING PROFESSOR * Telephone Encounter - Krystin Spangler Barry - 10/06/2021 11:38 AM EDT AppTriggerhart message for a medication refill today. PCP [...] Function tests in . Thyroid, 2019:29:3:412-420. Oni E, et al. 2017 Guidelines of the [place] Thyroid Association for the Diagnosis and Management of Thyroid Disease during and the . Thyroid, 2017:27:3:315-389. Pharmacy has been captured: Yes. Patient prefers: [facility]. Krystin Spangler Ma documented in this encounterRegency Hospital Toledo06-25-2022 Miscellaneous Notes* Telephone Encounter - Yana Ballard [...] since last visit. Patient states she saw "disc bulging" would like clarification on this. Adriana Juárez Ma * Telephone Encounter - Yana Ballard APRN.CNP - 10/06/2021 1:54 PM EDT Please inform patient MRI confirms disc herniation at L4-L5 and L5- S1 as cause for her pain, as wesuspected. Next step is to consult pain management to help with pain control. I placed this order. How is she feeling currently? documented in this encounterRegency Hospital Toledo06-23-2022 History of Present illness Narrative* RT Nova(R) [...] 05, 2021 6:27 PM documented in this encounterRegency Hospital Toledo06-07-2022 History of Present illness Narrative* Yana Ballard APRN.CLINICAL NURSING PROFESSOR - 09/19/2021 10:40 AM EDT HPI: Hannah [...] MG TABLET - MRI LUMBAR SPINE WO IVCON I spent a total of 20 minutes on the date of the service which included preparing to see the patient, xhcc-oo-bomc patient care, completing clinical documentation, obtaining and/or reviewing separately obtained history, performing a medically appropriate examination, counseling and educating the pat ient/family/caregiver and ordering medications, tests, or procedures. Yana Ballard APRN.CLINICAL NURSING PROFESSOR documented in this encounterRegency Hospital Toledo06-02-2022 Hospital Discharge instructions Patient Education 09/13/2021 23:57:30 Back Exercises, Bwnq-kg-Gfhm Back Exercises These exercises help to make [...] 05/04/2011 Document Revised: 12/25/2018 Document Reviewed: 12/25/2018 [employer] Patient Education 2020 [employer] Follow Up Care 09/13/2021 20:31:41 With:Santana Vidal Address: [address] [place] [id number] Business (1) When:09/16/2021 Comments:Take the prednisone daily until you have completed the course you can use the Robaxin, [place] as prescribed as needed for pain. Use lidocaine patch daily. Please follow-up with your primary care doctor and orthopedic for further evaluation management. With:Severiano Wallace Address: [address] [place] [address] [facility] [facility] [place] [address]- Business (1) When:Within 3 Day(s) [facility] + Plan note No data available for this section [facility] note* Diagnosis Spinal stenosis of lumbar region without neurogenic claudication Spinal stenosis, lumbar region, without neurogenic claudication documented in this encounter [facility] note* Diagnosis Spinal stenosis of lumbar region without neurogenic claudication Spinal stenosis, lumbar region, without neurogenic claudication documented in this encounter [facility] note* Diagnosis Lumbar disc herniation- Primary Displacement of lumbar intervertebral disc without myelopathy documented in this encounter [facility] note* Diagnosis Spinal stenosis of lumbar region without neurogenic claudication Spinal stenosis, lumbar region, without neurogenic claudication documented in this encounter [facility] note* Diagnosis Radiculopathy, lumbar region- Primary Thoracic or lumbosacral neuritis or radiculitis, unspecified Lumbar disc herniation Displacement of lumbar intervertebral disc without myelopathy documented in this encounter [facility] note* Diagnosis Lumbar disc herniation- Primary Displacement of lumbar intervertebral disc without myelopathy Radiculopathy, lumbar region Thoracic or lumbosacral neuritis or radiculitis, unspecified documented in this encounter [facility] note* Diagnosis Spinal stenosis of lumbar region without neurogenic claudication Spinal stenosis, lumbar region, without neurogenic claudication documented in this encounter [facility] note* Diagnosis Treatment not available- Primary Procedure not carried out for other reasons documented in this encounter [facility] note* Diagnosis Hypokalemia- Primary Hypopotassemia Hypomagnesemia Disorders of magnesium metabolism documented in this encounter [facility] note* Diagnosis Lumbar disc herniation- Primary Displacement of lumbar intervertebral disc without myelopathy Radiculopathy, lumbar region Thoracic or lumbosacral neuritis or radiculitis, unspecified documented in this encounter [facility] note* Diagnosis Lumbar disc herniation- Primary Displacement of lumbar intervertebral disc without myelopathy Radiculopathy, lumbar region Thoracic or lumbosacral neuritis or radiculitis, unspecified Hypokalemia Hypopotassemia Hypomagnesemia Disorders of magnesium metabolism documented in this encounter [facility] note* Diagnosis Lumbar disc herniation- Primary Displacement of lumbar intervertebral disc without myelopathy Radiculopathy, lumbar region Thoracic or lumbosacral neuritis or radiculitis, unspecified documented in this encounter [facility] note* Diagnosis Hypokalemia- Primary Hypopotassemia Hypomagnesemia Disorders of magnesium metabolism documented [facility] this encounter [facility]* Diagnosis Pre-op testing- Primary Preoperative examination, unspecified Lumbar disc herniation Displacement of lumbar intervertebral disc without myelopathy Radiculopathy, lumbar region Thoracic or lumbosacral neuritis or radiculitis, unspecified Lumbar disc herniation Displacement of lumbar intervertebral disc without myelopathy Radiculopathy, lumbar region Thoracic or lumbosacral neuritis or radiculitis, unspecified documented in this encounter [facility] note* Diagnosis Pre-op evaluation- Primary Preoperative examination, unspecified Lumbar disc herniation Displacement of lumbar intervertebral disc without myelopathy Known health problems: none Lumbar disc herniation Displacement of lumbar intervertebral disc without myelopathy Radiculopathy, lumbar region Thoracic or lumbosacral neuritis or radiculitis, unspecified documented in this encounter [facility] note* Diagnosis Radiculopathy, lumbar region- Primary Thoracic or lumbosacral neuritis or radiculitis, unspecified Lumbar disc herniation Displacement of lumbar intervertebral disc without myelopathy Radiculopathy, lumbar region Thoracic or lumbosacral neuritis or radiculitis, unspecified documented in this encounter [facility] note* Diagnosis Lumbar herniated disc- Primary Displacement of lumbar intervertebral disc without myelopathy documented in this encounter [facility] note* Diagnosis Lumbar radiculopathy- Primary Thoracic or lumbosacral neuritis or radiculitis, unspecified documented in this encounter [facility] note* Diagnosis Spinal stenosis of lumbar region with neurogenic claudication- Primary Spinal stenosis, lumbar region, with neurogenic claudication documented in this encounter [facility]* Diagnosis Pre-op testing- Primary Preoperative examination, unspecified Spinal stenosis of lumbar region with neurogenic claudication Spinal stenosis, lumbar region, with neurogenic claudication Spinal stenosis of lumbar region with neurogenic claudication Spinal stenosis, lumbar region, with neurogenic claudication documented in this encounter [facility] note* Diagnosis Spinal stenosis of lumbar region with neurogenic claudication Spinal stenosis, lumbar region, with neurogenic claudication Spinal stenosis of lumbar region with neurogenic claudication Spinal stenosis, lumbar region, with neurogenic claudication documented in this encounter [facility] note* Diagnosis Pre-op evaluation- Primary Preoperative examination, unspecified Pre-op testing Preoperative examination, unspecified Electronic cigarette use Spinal stenosis of lumbar region with neurogenic claudication Spinal stenosis, lumbar region, with neurogenic claudication [facility]* Diagnosis Radiculopathy, lumbar region- Primary Thoracic or lumbosacral neuritis or radiculitis, unspecified documented in this encounter [facility]* Diagnosis Radiculopathy, lumbar region Thoracic or lumbosacral neuritis or radiculitis, unspecified Chronic bilateral low back pain with right-sided sciatica documented in this encounter [facility]* Diagnosis Radiculopathy, lumbar region- Primary Thoracic or lumbosacral neuritis or radiculitis, unspecified documented in this encounter [facility]* Diagnosis Chronic bilateral low back pain with right-sided sciatica- Primary documented in this encounter [facility]* Diagnosis Chronic bilateral low back pain with right-sided sciatica- Primary documented in this encounter [facility]* Diagnosis Chronic bilateral low back pain with right-sided sciatica- Primary documented in this encounter [facility]* Diagnosis Chronic bilateral low back pain with right-sided sciatica- Primary documented in this encounter [facility] note* Diagnosis Chronic bilateral low back pain with right-sided sciatica- Primary [facility] noteNo assessment information availableWCenterville Work Phone: Evaluation note* Diagnosis Radiculopathy, lumbar region- Primary Thoracic or lumbosacral neuritis or radiculitis, unspecified documented in this encounter [facility] note* Diagnosis Chronic bilateral low back pain with right-sided sciatica- Primary documented in this encounter [facility]* Diagnosis Chronic bilateral low back pain with right-sided sciatica- Primary documented in this encounter [facility]* Diagnosis Radiculopathy, lumbar region- Primary Thoracic or lumbosacral neuritis or radiculitis, unspecified Spinal stenosis of lumbar region with neurogenic claudication Spinal stenosis, lumbar region, with neurogenic claudication documented in this encounter [facility]* Diagnosis Spinal stenosis of lumbar region with neurogenic claudication Spinal stenosis, lumbar region, with neurogenic claudication [facility] Diarrhea, unspecified type- Primary [facility] Author Ximena Mcghee [facility] Note Date/Time September 14, 2024 9:34a m [facility] [address] [place] [address], [address] [place] [address] OFFICE VISIT Date of Service: 09/14/24 MR#: [id number] Acct: [id number] Name: HANNAH HENDRICKS Rep #: [id number] : 1990 Provider: BART Mcghee Age/Sex: 34/F Location: [facility] [facility] Status: Signed Intake Vital Signs 07/20/24 13:59 08/17/24 08:32 09/14/24 08:59 Height 5 ft 6 in 5 ft 6 in 5 ft 6 in Weight: 190 lb 2 oz BMI 30.7 BP 106/71 Intake Visit Reasons: 17wk ob Chief Complaint: 17wk OB Tube Heater Required: No Is patient in pain?: No [...] current occupational status: employed current occupation: [employer] current occupational exposures/hazards: No pets and animals: [...] 3-4 times per week duration: 15-30 minutes/day agata/taoism: Tenriism seatbelt use: always do you feel safe at home: Yes 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 Date Name GA/Weeks Outcome Route Bth Weight Infant Gen Labor Lgth Anesthesia Del Locatn Provider FOB 08/11/20 Janie 39 live - full term 7lbs 8.5oz Female epidural [facility] Dr. Quang Samaniego 03/15/24 4 spontaneous Delivery Date: 08/11/20 Last Updated by: Cherelle Ojedaion Induced HPI 17wk ob Details: HANNAH HENDRICKS [...] Negative 157 -?-?-?-?-?-?-?-?-?-?-?-?- -No VB. Nausea improving. RUST confirm FHT 09/14/24 -?-?-?-?-?-?-?-?-?-?-?-?- 16w 5d 190 [...] this visit. GA appropriate handout given. 09/14/24 5772 <Electronically signed by Ximena benitez CNM> Date _ Ximena Mcghee CNM Cosigner Signature: Date (if applicable) CC: ~ [facility] Work Phone: Progress note Author Ximena Mcghee [facility] Note Date/Time November 09, 2024 9:25 am [facility] [address], [address] [place] [address] OFFICE VISIT Date of Service: 11/09/24 MR#: [id number] Acct: [id number] Name: HANNAH HENDRICKS Rep #: [id number] : 1990 Provider: BART Mcghee Age/Sex: 34/F Location: [facility] [place] Status: Signed Intake Vital Signs 08/17/24 08:32 10/12/24 15:54 11/09/24 08:55 11/09/24 08:55 Height 5 ft 6 in 5 ft 6 in 5 ft 6 in 5 ft 6 in Weight: 202 lb 6 oz BMI 32.6 BP 104/71 Intake Visit Reasons: 25 wk ob Chief Complaint: 25wk OB Tube Heater Required: No Is patient in pain?: No [...] current occupational status: employed current occupation: [employer] current occupational exposures/hazards: No pets and animals: [...] 3-4 times per week duration: 15-30 minutes/day agata/taoism: Tenriism seatbelt use: always do you feel safe at home: Yes 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 Date Name GA/Weeks Outcome Route Bth Weight Infant Gen Labor Lgth Anes t hesia Del Locatn Provider FOB 08/11/20 Janie 39 live - full term 7lbs 8.5oz Female epidural [facility] Dr. Quang Samaniego 03/15/24 4 [...] leg cramps. belly band encouraged. glucose discussed ACOG First Trimester First [...] at this visit. GA appropriate handout given. 11/09/2484 <Electronically signed by Ximena benitez CNM> Date _ Ximena Mcghee CNM Cosigner Signature: Date (if applicable) CC: ~ [facility] Work Phone: Progress note Author Barbie Mitchell [facility] Note Date/Time December 28, 2024 9:59am [facility] [address] [place] [address], [address] [place] [id number] OFFICE VISIT Date of Service: 12/28/24 MR#: [id number] Acct: [id number] Name: HANNAH HENDRICKS Rep #: [id number] : 1990 Provider: SHAWN Mitchell Age/Sex: 34/F Location: [facility] [place] Status: Signed Intake Vital Signs 11/09/24 08:55 12/15/24 09:22 12/28/24 09:45 12/28/24 09:50 Height 5 ft 6 in 5 ft 6 in 5 ft 6 in 5 ft 6 in Weight: 210 lb BMI 33.9 BP 118/72 Intake Visit Reasons: 32wk ob Chief Complaint: 32 Week OB Tube Heater Required: No Is patient in pain?: No [...] current occupational status: employed current occupation: [employer] current occupational exposures/hazards: No pets and animals: [...] 3-4 times per week duration: 15-30 minutes/day agata/taoism: Tenriism seatbelt use: always do you feel safe at home: Yes 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 Date Name GA/Weeks Outcome Route Bth [facility] Janie 39 live - full term 7lbs 8.5oz Female epidural [facility] Dr. Quang Samaniego 03/15/24 4 [...] bleeding. Hx of SAB. Live IUP on [facility]. 08/17/24 -?-?-?-?-?-?-?-?-?-?-?-?- 12w 5d 184 lb 8 oz 104/68 Trac e -?-?--?-?-?-?-?-?-?-?-?-?- Negative 157 -?-?-?-?-?-?-?-?-?-?-?-?- -No VB. Nausea improving. RUST confirm FHT 09/14/24 -?-?-?-?-?-?-?-?-?-?-?-?- 16w 5d 190 [...] 12/28/24 0959 <Electronically signed by Barbie benitez SITE SPECIALIST SITE SPECIALIST-C> Date _ Barbie Mitchell SITE SPECIALIST SITE SPECIALIST-C Cosigner Signature: Date (if applicable) CC: ~ [facility] Work Phone: Progress note Author Ximena Mcghee [facility] Note Date/Time January 11, 2025 10:42am [facility] [address] [place] [address], [address] [place] [address] OFFICE VISIT Date of Service: 01/11/25 MR#: [id number] Acct: [id number] Name: HANNAH HENDRICKS Rep #: [id number] : 1990 Provider: BART Mcghee Age/Sex: 34/F Location: [facility] [place] Status: Signed Intake Vital Signs 12/01/24 08:19 01/11/25 09:59 01/11/25 09:59 Height 5 ft 6 in 5 ft 6 in 5 ft 6 in Weight: 215 lb 5 oz BMI 34.7 BP 118/75 Intake Visit Reasons: 34 WK OB Tube Heater Required: No Is patient in pain?: No [...] 200 mg tablet 200 mg PO QDAY 12/01/2412/15 History sertraline 50 mg tablet (Zoloft) 50 [...] 3-4 times per week duration: 15-30 minutes/day agata/taoism: Tenriism seatbelt use: always do you feel safe at home: Yes 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 Date Name GA/Weeks Outcome Route Bth Weight Infant Gen Labor Lgth Anesthesia Del Locatn Provider FOB 08/11/20 Janie 39 live - full term 7lbs 8.5oz Female epidural [facility] Dr. Quang Samaniego 03/15/24 4 [...] Cosigner Signature: Date (if applicable) CC: ~ [facility] Work Phone: Reason for referral (narrative)No reason for referral information availableWCenterville Work Phone: Summary Purpose Family History No [...] FoundDocuments on File Type Date Recorded Patient Chief Estimator Expl anation Advance Directive(s) 11/02/2021 8:14 AM Advance Directive(s) 10/30/2021 9:10 AM Documents on File Type Date Recorded Patient Chief Estimator Expl anation Advance Directive(s) 11/15/2021 8:36 PM Advance Directive(s) 11/02/2021 8:14 AM Advance Directive(s) 10/30/2021 9:10 AM Advance Directive Response Recorded Date/ Time Living Will No September 23, 2020 12:06pm Power of Traffic Warehouse Supervisor No September 23 12:06pm Advance Directive Response Recorded Date/ Time Living Will No April 01 024 5:32pm Power of Traffic Warehouse Supervisor No April 01, 2024 5:32pm Advance Directive Response Recorded Date/ Time Living Will No April 01 5:32pm Do you have a Healthcare Power of Traffic Warehouse Supervisor? No April 01, 2024 5:32pm Reason for Referral Specialty Diagnoses / Procedures Referred By Contac t Referred To Contact [facility] Diagnoses Chronic bilateral low back pain with right-sided sciatica Procedures PT REHAB FOLLOW UP ORDER THERAPEUTIC EXERCISES RE, EA 15 MIN. Pt [facility] [address] [place] [address] [facility] [address] [address] Referral ID Status Reason Start Date Expiration Date Visits Requested Visits Authorized [id number] Pending Review PCP Requested Referral Auto-Generate d Referral 07/16/2022 10/14/2022 1 1 Specialty Diagnoses / Procedures Referred By Contac t Referred To Contact [facility] Diagnoses Radiculopathy, lumbar region Procedures CONSULT TO PHYSICAL THERAPY PHYSICAL THERAPY EVALUATION HIGH COMPLEX [address] [place] [address] [place] [address] [facility] [address] [address] Referral ID Status Reason Start Date Expiration Date Visits Requested Visits Authorized [id number] Pending Review Auto-Generat ed Referral 2 04/04/2023 1 1 Specialty Diagnoses / Procedures Referred By Contac t Referred To Contact [facility] Diagnoses Lumbar radiculopathy Procedures CONSULT TO PHYSICAL THERAPY PHYSICAL THERAPY EVALUATION HIGH COMPLEX [address] [place] [address] [place] [address] [address] Referral ID Status Reason Start Date Expiration Date Visits Requested Visits Authorized [id number] Pending Review Auto-Generat ed Referral 2 03/05/2023 1 1 Specialty Diagnoses / Procedures Referred By Contac t Referred To Contact Diagnoses Pre-op testing Procedures REFER TO PACC - PRE ANESTHESIA CONSULTATION CLINIC OFFICE/OUTPATIENT [facility] 60-74 MINUTES Dharmesh Louise PA-C [address] [place] [address] Referral ID Status Reason Start Date Expiration Date Visits Requested Visits Authorized [id number] Pending Review PCP Requested Referral 12/05/2021 12/05/2022 1 1 Specialty Diagnoses / Procedures Referred By Contac t Referred To Contact Yana Ballard, CARE MANAGER.CLINICAL NURSING PROFESSOR [address] [address] Referral ID Status Reason Start Date Expiration Date V isits Requested Visits Authorized [id number] Pending Review 1 1 Specialty Diagnoses / Procedures Referred By Contac t Referred To Contact Pain Management Diagnoses Lumbar disc herniation Procedures CONSULT TO PAIN MGT OFFICE/OUTPATIENT [facility] 60-74 MINUTES Yana Ballard, CARE MANAGER.CLINICAL NURSING PROFESSOR [address] [address] Referral ID Status Reason Start Date Expiration Date Visits Requested Visits Authorized [id number] Pending Review PCP Requested Referral 10/06/2021 10/06/2022 1 1 Specialty Diagnoses / Procedures Referred By Contac t Referred To Contact [facility] IMAGING Diagnoses Spinal stenosis of lumbar region without neurogenic claudication Procedures MRI LUMBAR SPINE WO IVCON MRI SPINAL CANAL LUMBAR W/O CONTRAST MATERIAL Yana Ballard, CARE MANAGER.CLINICAL NURSING PROFESSOR [address] [address] [facility] Imaging Referral ID Status Reason Start Date Expiration Date Visits Requested Visits Authorized [id number] Authorized Auto-Generat ed Referral 09/19/2021 10/19/2022 1 [...] pm Chief Complaint Admit Date NOB LMP 05/23July 205 1:53 pm Heart tone check August 05, [...] 15, 2024 9:19am Supervision of high-risk Septe mber 2024 9:19am Chief Complaint Admit Date 17wk ob [...] 15, 2024 9:19am Supervision of high-risk Septe 2024 9:19am Anxiety December 28, 2024 9:42am December 28, 2024 9:42am Supervision of high-risk [facility] 2024 9:42am Chief Complaint Admit Date 21wk [...] 15, 2024 9:19am Supervision of high-risk Septe [facility] 2024 9:19am Anxiety December 28, 2024 9:42am December 28, 2024 9:42am Supervision of high-risk Septe [facility] 2024 9:42am Anxiety January 11, 2025 10:15am January 11, 2025 10:15am Supervision of high-risk Keagan mber 2024 10:15am Additional Source Comments INFORMATION SOURCE (unrecogn ized section and content) DATE CREATED AUTHOR 09/15/2021 Willi Sarkar [facility] DATE CREATED AUTHOR AUTHOR'S ORGANIZ ATION 03/21/2022 [facility] DATE CREATED AUTHOR AUTHOR'S ORGANIZ ATION 02/10/2023 [facility] DATE CREATED AUTHOR AUTHOR'S ORGANIZ ATION 05/18/2023 [facility] DATE CREATED AUTHOR AUTHOR'S ORGANIZ ATION 08/04/2023 [facility] DATE CREATED AUTHOR AUTHOR'S ORGANIZ ATION 10/09/2024 [facility] DATE CREATED AUTHOR AUTHOR'S ORGANIZ ATION 02/01/2025 [facility] Source Comments (unrecognize d section and content) In the event this informatio n is protected by the Federal Confidentiality of Alcohol and Drug Abuse Patient Records regulations: The Federal rules restrict any use of the information to criminally investigate or prosecute any alcohol or drug abuse patient.[facility] the event this information is protected by the Federal Confidentiality of Alcohol and Drug Abuse Patient Records regulations: The Federal rules restrict any use of the information to criminally investigate or prosecute any alcohol or drug abuse patient.[facility] the event this information is protected by the Federal Confidentiality of Alcohol and Drug Abuse Patient Records regulations: The Federal rules restrict any use of the information to criminally investigate or prosecute any alcohol or drug abuse patient.[facility] the event this information is protected by the Federal Confidentiality of Alcohol and Drug Abuse Patient Records regulations: The Federal rules restrict any use of the information to criminally investigate or prosecute any alcohol or drug abuse patient.[facility] the event this information is protected by the Federal Confidentiality of Alcohol and Drug Abuse Patient Records regulations: The Federal rules restrict any use of the information to criminally investigate or prosecute any alcohol or drug abuse patient.[facility] the event this information is protected by the Federal Confidentiality of Alcohol and Drug Abuse Patient Records regulations: The Federal rules restrict any use of the information to criminally investigate or prosecute any alcohol or drug abuse patient.[facility] the event this information is protected by the Federal Confidentiality of Alcohol and Drug Abuse Patient Records regulations: The Federal rules restrict any use of the information to criminally investigate or prosecute any alcohol or drug abuse patient.[facility] the event this information is protected by the Federal Confidentiality of Alcohol and Drug Abuse Patient Records regulations: The Federal rules restrict any use of the information to criminally investigate or prosecute any alcohol or drug abuse patient.[facility] the event this information is protected by the Federal Confidentiality of Alcohol and Drug Abuse Patient Records regulations: The Federal rules restrict any use of the information to criminally investigate or prosecute any alcohol or drug abuse patient.[facility] the event this information is protected by the Federal Confidentiality of Alcohol and Drug Abuse Patient Records regulations: The Federal rules restrict any use of the information to criminally investigate or prosecute any alcohol or drug abuse patient.[facility] the event this information is protected by the Federal Confidentiality of Alcohol and Drug Abuse Patient Records regulations: The Federal rules restrict any use of the information to criminally investigate or prosecute any alcohol or drug abuse patient.[facility]edo[facility] the event this information is protected by the Federal Confidentiality of Alcohol and Drug Abuse Patient Records regulations: The Federal rules restrict any use of the information to criminally investigate or prosecute any alcohol or drug abuse patient.[facility]edoIn the event this information is protected by the Federal Confidentiality of Alcohol and Drug Abuse Patient Records regulations: The Federal rules restrict any use of the information to criminally investigate or prosecute any alcohol or drug abuse patient.[facility]edoIn the event this information is protected by the Federal Confidentiality of Alcohol and Drug Abuse Patient Records regulations: The Federal rules restrict any use of the information to criminally investigate or prosecute any alcohol or drug abuse patient.[facility]edoIn the event this information is protected by the Federal Confidentiality of Alcohol and Drug Abuse Patient Records regulations: The Federal rules restrict any use of the information to criminally investigate or prosecute any alcohol or drug abuse patient.[facility]edoIn the event this information is protected by the Federal Confidentiality of Alcohol and Drug Abuse Patient Records regulations: The Federal rules restrict any use of the information to criminally investigate or prosecute any alcohol or drug abuse patient.[facility]edoIn the event this information is protected by the Federal Confidentiality of Alcohol and Drug Abuse Patient Records regulations: The Federal rules restrict any use of the information to criminally investigate or prosecute any alcohol or drug abuse patient.[facility]edoIn the event this information is protected by the Federal Confidentiality of Alcohol and Drug Abuse Patient Records regulations: The Federal rules restrict any use of the information to criminally investigate or prosecute any alcohol or drug abuse patient.[facility]edoIn the event this information is protected by the Federal Confidentiality of Alcohol and Drug Abuse Patient Records regulations: The Federal rules restrict any use of the information to criminally investigate or prosecute any alcohol or drug abuse patient.[facility]edoIn the event this information is protected by the Federal Confidentiality of Alcohol and Drug Abuse Patient Records regulations: The Federal rules restrict any use of the information to criminally investigate or prosecute any alcohol or drug abuse patient.[facility]edoIn the event this information is protected by the Federal Confidentiality of Alcohol and Drug Abuse Patient Records regulations: The Federal rules restrict any use of the information to criminally investigate or prosecute any alcohol or drug abuse patient.[facility]edoIn the event this information is protected by the Federal Confidentiality of Alcohol and Drug Abuse Patient Records regulations: The Federal rules restrict any use of the information to criminally investigate or prosecute any alcohol or drug abuse patient.[facility]edoIn the event this information is protected by the Federal Confidentiality of Alcohol and Drug Abuse Patient Records regulations: The Federal rules restrict any use of the information to criminally investigate or prosecute any alcohol or drug abuse patient.[facility]edoIn the event this information is protected by the Federal Confidentiality of Alcohol and Drug Abuse Patient Records regulations: The Federal rules restrict any use of the information to criminally investigate or prosecute any alcohol or drug abuse patient.[facility]edoIn the event this information is protected by the Federal Confidentiality of Alcohol and Drug Abuse Patient Records regulations: The Federal rules restrict any use of the information to criminally investigate or prosecute any alcohol or drug abuse patient.[facility]edoIn the event this information is protected by the Federal Confidentiality of Alcohol and Drug Abuse Patient Records regulations: The Federal rules restrict any use of the information to criminally investigate or prosecute any alcohol or drug abuse patient.[facility]edoIn the event this information is protected by the Federal Confidentiality of Alcohol and Drug Abuse Patient Records regulations: The Federal rules restrict any use of the information to criminally investigate or prosecute any alcohol or drug abuse patient.[facility]edoIn the event this information is protected by the Federal Confidentiality of Alcohol and Drug Abuse Patient Records regulations: The Federal rules restrict any use of the information to criminally investigate or prosecute any alcohol or drug abuse patient.[facility]edoIn the event this information is protected by the Federal Confidentiality of Alcohol and Drug Abuse Patient Records regulations: The Federal rules restrict any use of the information to criminally investigate or prosecute any alcohol or drug abuse patient.[facility]edoIn the event this information is protected by the Federal Confidentiality of Alcohol and Drug Abuse Patient Records regulations: The Federal rules restrict any use of the information to criminally investigate or prosecute any alcohol or drug abuse patient.[facility]edoIn the event this information is protected by the Federal Confidentiality of Alcohol and Drug Abuse Patient Records regulations: The Federal rules restrict any use of the information to criminally investigate or prosecute any alcohol or drug abuse patient.[facility]edoIn the event this information is protected by the Federal Confidentiality of Alcohol and Drug Abuse Patient Records regulations: The Federal rules restrict any use of the information to criminally investigate or prosecute any alcohol or drug abuse patient.[facility]edoIn the event this information is protected by the Federal Confidentiality of Alcohol and Drug Abuse Patient Records regulations: The Federal rules restrict any use of the information to criminally investigate or prosecute any alcohol or drug abuse patient.[facility]edoIn the event this information is protected by the Federal Confidentiality of Alcohol and Drug Abuse Patient Records regulations: The Federal rules restrict any use of the information to criminally investigate or prosecute any alcohol or drug abuse patient.[facility]edoIn the event this information is protected by the Federal Confidentiality of Alcohol and Drug Abuse Patient Records regulations: The Federal rules restrict any use of the information to criminally investigate or prosecute any alcohol or drug abuse patient.[facility]edoIn the event this information is protected by the Federal Confidentiality of Alcohol and Drug Abuse Patient Records regulations: The Federal rules restrict any use of the information to criminally investigate or prosecute any alcohol or drug abuse patient.[facility]edoIn the event this information is protected by the Federal Confidentiality of Alcohol and Drug Abuse Patient Records regulations: The Federal rules restrict any use of the information to criminally investigate or prosecute any alcohol or drug abuse patient.[facility]edoIn the event this information is protected by the Federal Confidentiality of Alcohol and Drug Abuse Patient Records regulations: The Federal rules restrict any use of the information to criminally investigate or prosecute any alcohol or drug abuse patient.[facility]edoIn the event this information is protected by the Federal Confidentiality of Alcohol and Drug Abuse Patient Records regulations: The Federal rules restrict any use of the information to criminally investigate or prosecute any alcohol or drug abuse patient.[facility]edoIn the event this information is protected by the Federal Confidentiality of Alcohol and Drug Abuse Patient Records regulations: The Federal rules restrict any use of the information to criminally investigate or prosecute any alcohol or drug abuse patient.[facility]edoIn the event this information is protected by the Federal Confidentiality of Alcohol and Drug Abuse Patient Records regulations: The Federal rules restrict any use of the information to criminally investigate or prosecute any alcohol or drug abuse patient.[facility]edoIn the event this information is protected by the Federal Confidentiality of Alcohol and Drug Abuse Patient Records regulations: The Federal rules restrict any use of the information to criminally investigate or prosecute any alcohol or drug abuse patient.[facility]edoIn the event this information is protected by the Federal Confidentiality of Alcohol and Drug Abuse Patient Records regulations: The Federal rules restrict any use of the information to criminally investigate or prosecute any alcohol or drug abuse patient.[facility]edoIn the event this information is protected by the Federal Confidentiality of Alcohol and Drug Abuse Patient Records regulations: The Federal rules restrict any use of the information to criminally investigate or prosecute any alcohol or drug abuse patient.[facility]edoIn the event this information is protected by the Federal Confidentiality of Alcohol and Drug Abuse Patient Records regulations: The Federal rules restrict any use of the information to criminally investigate or prosecute any alcohol or drug abuse patient.[facility]edoIn the event this information is protected by the Federal Confidentiality of Alcohol and Drug Abuse Patient Records regulations: The Federal rules restrict any use of the information to criminally investigate or prosecute any alcohol or drug abuse patient.[facility]edoIn the event this information is protected by the Federal Confidentiality of Alcohol and Drug Abuse Patient Records regulations: The Federal rules restrict any use of the information to criminally investigate or prosecute any alcohol or drug abuse patient.[facility]edoIn the event this information is protected by the Federal Confidentiality of Alcohol and Drug Abuse Patient Records regulations: The Federal rules restrict any use of the information to criminally investigate or prosecute any alcohol or drug abuse patient.[facility]edoIn the event this information is protected by the Federal Confidentiality of Alcohol and Drug Abuse Patient Records regulations: The Federal rules restrict any use of the information to criminally investigate or prosecute any alcohol or drug abuse patient.[facility]edoIn the event this information is protected by the Federal Confidentiality of Alcohol and Drug Abuse Patient Records regulations: The Federal rules restrict any use of the information to criminally investigate or prosecute any alcohol or drug abuse patient.[facility]edoIn the event this information is protected by the Federal Confidentiality of Alcohol and Drug Abuse Patient Records regulations: The Federal rules restrict any use of the information to criminally investigate or prosecute any alcohol or drug abuse patient.[facility]edoIn the event this information is protected by the Federal Confidentiality of Alcohol and Drug Abuse Patient Records regulations: The Federal rules restrict any use of the information to criminally investigate or prosecute any alcohol or drug abuse patient.[facility]edoIn the event this information is protected by the Federal Confidentiality of Alcohol and Drug Abuse Patient Records regulations: The Federal rules restrict any use of the information to criminally investigate or prosecute any alcohol or drug abuse patient.[facility]edoIn the event this information is protected by the Federal Confidentiality of Alcohol and Drug Abuse Patient Records regulations: The Federal rules restrict any use of the information to criminally investigate or prosecute any alcohol or drug abuse patient.[facility]edoIn the event this information is protected by the Federal Confidentiality of Alcohol and Drug Abuse Patient Records regulations: The Federal rules restrict any use of the information to criminally investigate or prosecute any alcohol or drug abuse patient.[facility]edoIn the event this information is protected by the Federal Confidentiality of Alcohol and Drug Abuse Patient Records regulations: The Federal rules restrict any use of the information to criminally investigate or prosecute any alcohol or drug abuse patient.[facility]edoIn the event this information is protected by the Federal Confidentiality of Alcohol and Drug Abuse Patient Records regulations: The Federal rules restrict any use of the information to criminally investigate or prosecute any alcohol or drug abuse patient.[facility]edoIn the event this information is protected by the Federal Confidentiality of Alcohol and Drug Abuse Patient Records regulations: The Federal rules restrict any use of the information to criminally investigate or prosecute any alcohol or drug abuse patient.[facility]edoIn the event this information is protected by the Federal Confidentiality of Alcohol and Drug Abuse Patient Records regulations: The Federal rules restrict any use of the information to criminally investigate or prosecute any alcohol or drug abuse patient.[facility]edoIn the event this information is protected by the Federal Confidentiality of Alcohol and Drug Abuse Patient Records regulations: The Federal rules restrict any use of the information to criminally investigate or prosecute any alcohol or drug abuse patient.[facility] ClinicIn the event this information is protected by the Federal Confidentiality of Alcohol and Drug Abuse Patient Records regulations: The Federal rules restrict any use of the information to criminally investigate or prosecute any alcohol or drug abuse patient.[facility]edoIn the event this information is protected by the Federal Confidentiality of Alcohol and Drug Abuse Patient Records regulations: The Federal rules restrict any use of the information to criminally investigate or prosecute any alcohol or drug abuse patient.[facility]edoIn the event this information is protected by the Federal Confidentiality of Alcohol and Drug Abuse Patient Records regulations: The Federal rules restrict any use of the information to criminally investigate or prosecute any alcohol or drug abuse patient.[facility]edoIn the event this information is protected by the Federal Confidentiality of Alcohol and Drug Abuse Patient Records regulations: The Federal rules restrict any use of the information to criminally investigate or prosecute any alcohol or drug abuse patient.[facility]edoIn the event this information is protected by the Federal Confidentiality of Alcohol and Drug Abuse Patient Records regulations: The Federal rules restrict any use of the information to criminally investigate or prosecute any alcohol or drug abuse patient.[facility] Reason for Visit (unrecogniz ed section and content) Reason Comments PT Progress Note Specialty Diagnoses / Procedures Referred By Contac t Referred To Contact [facility] Diagnoses Radiculopathy, lumbar region Procedures CONSULT TO PHYSICAL THERAPY PHYSICAL THERAPY EVALUATION HIGH COMPLEX 45 [place] [address] [place] [address] [facility] [address] [address] Referral ID Status Reason Start Date Expiration Date V isits Requested Visits Authorized [id number] Authorized 04/15/2022 04/14/2023 20 20 Reason Comments Physical Therapy Specialty Diagnoses / Procedures Referred By Contac t Referred To Contact [facility] Diagnoses Radiculopathy, lumbar region Procedures CONSULT TO PHYSICAL THERAPY PHYSICAL THERAPY EVALUATION HIGH COMPLEX [address] [place] [address] [place] [address] [facility] [address] [place] [address] Reason Comments PT Progress Note Reason Comments Establish Care follow up from ED, b ack pain Specialty Diagnoses / Procedures Referred By Contac t Referred To Contact [facility] Diagnoses Spinal stenosis of lumbar region without neurogenic claudication Procedures MRI LUMBAR SPINE WO IVCON MRI SPINAL CANAL LUMBAR W/O CONTRAST MATERIAL Yana Ballard, CARE MANAGER.CLINICAL NURSING PROFESSOR [address] [facility] [id number] [place] [address] Mr Imaging Referral ID Status Reason Start Date Expiration Date V isits Requested Visits Authorized [id number] Closed Auto-Generate d Referral 09/19/2021 10/19/2022 1 1 Reason Comments Results MRI Reason Onset Date Comments Refill Request 10/06/2021 Specialty Diagnoses / Procedures Referred By Contac t Referred To Contact Pain Management Diagnoses Lumbar disc herniation Procedures CONSULT TO PAIN MGT OFFICE/OUTPATIENT [facility] 60-74 MINUTES Yana Ballard, CARE MANAGER.CLINICAL NURSING PROFESSOR [address] [facility] [id number] [place] [address] Referral ID Status Reason Start Date Expiration Date Visits Requested Visits Authorized [id number] Pending Review PCP Requested Referral 10/06/2021 10/06/2022 [...] LUMBAR W/O CONTRAST MATERIAL Radha Dickens PA-C [address] [place] [address] Mr Imaging Referral ID Status Reason Start Date Expiration Date V isits Requested Visits Authorized [id number] Closed Auto-Generate d Referral 03/12/2022 04/26/2022 1 1 Specialty Diagnoses / Procedures Referred By Contac t Referred To Contact Diagnoses Pre-op testing Procedures REFER TO PACC - PRE ANESTHESIA CONSULTATION CLINIC OFFICE/OUTPATIENT [facility] 60-[place] [address] [place] [address] Referral ID Status Reason Start Date Expiration Date Visits Requested Visits Authorized [id number] Pending Review PCP Requested Referral 03/16/2022 03/16/2023 1 1 Reason Comments Post Op Sore and stiffness Reason Comments PT Eval Referral ID Status Reason Start Date Expiration Date Visits Requested Visits Authorized [id number] Pending Review Auto-Generat ed Referral 04/04/2023 1 1 Reason Comments Follow Up Reason Comments Post Op Symptoms Reason Comments Leg Pain Reason Comments PT Discharge Specialty Diagnoses / Procedures Referred By Contac t Referred To Contact [facility] Diagnoses Radiculopathy, lumbar region Procedures CONSULT TO PHYSICAL THERAPY PHYSICAL THERAPY EVALUATION HIGH COMPLEX [address] [place] [address] [place] [address] [facility] [address] [place] [address] Reason Comments Follow Up Pt states that she i s having pain in lower back, SI area, that runs down both legs. Has had physical therapy. Specialty Diagnoses / Procedures Referred By Brett brandt Referred To Contact [facility] IMAGING Diagnoses Spinal stenosis of lumbar region with neurogenic claudication Procedures MRI LUMBAR SPINE WO IVCON MRI SPINAL CANAL LUMBAR W/[place] [address] [place] [address] Mr Imaging [id number] Referral ID Status Reason Start Date Expiration Date V isits Requested Visits Authorized [id number] Closed Auto-Generate d Referral 02/06/2023 03/07/2024 1 1 Reason Comments Diarrhea Care Teams (unrecognized sec tion and content) Twisting Frame Fixer Relationship Specialty Start Date End Date Yana Ballard, CARE MANAGER.CLINICAL NURSING PROFESSOR [address] [address] PCP - General Family Practice 10/27/12 Twisting Frame Fixer Relationship Specialty Start Date End Date Yana Ballard CARE MANAGER.CLINICAL NURSING PROFESSOR [address] [address] PCP - General Family Practice 10/27/12 Twisting Frame Fixer Relationship Specialty Start Date End Date Yana Ballard, CARE MANAGER.CLINICAL NURSING PROFESSOR [address] [address] PCP - General Family Practice 10/27/12 Twisting Frame Fixer Relationship Specialty Start Date End Date Yana Ballard, CARE MANAGER.CLINICAL NURSING PROFESSOR [address] [address] PCP - General Family Practice 10/27/12 Twisting Frame Fixer Relationship Specialty Start Date End Date Yana Ballard, CARE MANAGER.CLINICAL NURSING PROFESSOR [address] [address] PCP - General Family Practice 10/27/12 Twisting Frame Fixer Relationship Specialty Start Date End Date Yana Ballard CARE MANAGER.CLINICAL NURSING PROFESSOR [address] [address] PCP - General Family Practice 10/27/12 Twisting Frame Fixer Relationship Specialty Start Date End Date Yana Ballard, CARE MANAGER.CLINICAL NURSING PROFESSOR [address] [address] PCP - General Family Practice 10/27/12 Twisting Frame Fixer Relationship Specialty Start Date End Date Yana Ballard, CARE MANAGER.CLINICAL NURSING PROFESSOR [address] [address] PCP - General Family Practice 10/27/12 Twisting Frame Fixer Relationship Specialty Start Date End Date Yana Ballard, CARE MANAGER.CLINICAL NURSING PROFESSOR [address] [address] PCP - General Family Practice 10/27/12 Twisting Frame Fixer Relationship Specialty Start Date End Date Yana Ballard, CARE MANAGER.CLINICAL NURSING PROFESSOR [address] [address] PCP - General Family Practice 10/27/12 Twisting Frame Fixer Relationship Specialty Start Date End Date Yana Ballard, CARE MANAGER.CLINICAL NURSING PROFESSOR [address] [address] PCP - General Family Practice 10/27/12 Twisting Frame Fixer Relationship Specialty Start Date End Date Yana Ballard, CARE MANAGER.CLINICAL NURSING PROFESSOR [address] [address] PCP - General Family Practice 10/27/12 Twisting Frame Fixer Relationship Specialty Start Date End Date Yana Ballard, CARE MANAGER.CLINICAL NURSING PROFESSOR [address] [address] PCP - General Family Practice 10/27/12 Twisting Frame Fixer Relationship Specialty Start Date End Date Yana Ballard, CARE MANAGER.CLINICAL NURSING PROFESSOR [address] [address] PCP - General Family Practice 10/27/12 Twisting Frame Fixer Relationship Specialty Start Date End Date Yana Ballard, CARE MANAGER.CLINICAL NURSING PROFESSOR [address] [address] PCP - General Family Practice 10/27/12 Twisting Frame Fixer Relationship Specialty Start Date End Date Yana Ballard, CARE MANAGER.CLINICAL NURSING PROFESSOR [address] [address] PCP - General Family Practice 10/27/12 Twisting Frame Fixer Relationship Specialty Start Date End Date Yana Ballard, CARE MANAGER.CLINICAL NURSING PROFESSOR [address] [address] PCP - General Family Practice 10/27/12 Twisting Frame Fixer Relationship Specialty Start Date End Date Yana Ballard, CARE MANAGER.CLINICAL NURSING PROFESSOR [address] [address] PCP - General Family Practice 10/27/12 12/11/21 Thomas Salinas MD [address] [place] [address], [place] [address] PCP - General Family Practice 12/12/21 Twisting Frame Fixer Relationship Specialty Start Date End Date Thomas Salinas MD [address] [place] [address] PCP - General Family Practice 12/12/21 Twisting Frame Fixer Relationship Specialty Start Date End Date Thomas Salinas MD [address] [place] [address] PCP - General Family Medicine 12/12/21 Twisting Frame Fixer Relationship Specialty Start Date End Date Thomas Salinas MD [address] [place] [address] PCP - General Family Medicine 12/12/21 Twisting Frame Fixer Relationship Specialty Start Date End Date Thomas Salinas MD [address] [place] [address] PCP - General Family Medicine 12/12/21 Twisting Frame Fixer Relationship Specialty Start Date End Date Thomas Salinas MD [address] [place] [address] PCP - General Family Medicine 12/12/21 Twisting Frame Fixer Relationship Specialty Start Date End Date Thomas Salinas MD [address] [place] [address] PCP - General Family Medicine 12/12/21 Twisting Frame Fixer Relationship Specialty Start Date End Date Thomas Salinas MD [address] [place] [address], [place] [address] PCP - General Family Medicine 12/12/21 Twisting Frame Fixer Relationship Specialty Start Date End Date Thomas Salinas MD [address] [place] [id number] PCP - General Family Medicine 12/12/21 Twisting Frame Fixer Relationship Specialty [place] [address] [place] [address], [place] [address] PCP - General Family Medicine 12/12/21 Twisting Frame Fixer Relationship Specialty [place] [address] [place] [id number] PCP - General Family Medicine 12/12/21 Twisting Frame Fixer Relationship Specialty Start Date End Date Thomas Salinas MD [address] [place] [address] PCP - General Family Medicine 12/12/21 Twisting Frame Fixer Relationship Specialty Start Date End Date Thomas Salinas MD [address] [place] [address] PCP - General Family Medicine 12/12/21 Twisting Frame Fixer Relationship Specialty [place] [address] [place] [id number] PCP - General Family Medicine 12/12/21 Twisting Frame Fixer Relationship Specialty Start Date End Date Thomas Salinas MD [address] [place] [address] PCP - General Family Medicine 12/12/21 Twisting Frame Fixer Relationship Specialty [place] [address] [place] [address], [place] [address] PCP - General Family Medicine 12/12/21 Twisting Frame Fixer Relationship Specialty Start Date End Date Thomas Salinas MD [address] [place] [address] PCP - General Family Medicine 12/12/21 Twisting Frame Fixer Relationship Specialty Start Date End Date Thomas Salinas MD [address] [place] [address] PCP - General Family Medicine 12/12/21 Twisting Frame Fixer Relationship Specialty Start Date End Date Thomas Salinas MD [address] [place] [address] PCP - General Family Medicine 12/12/21 Twisting Frame Fixer Relationship Specialty Start Date End Date Thomas Salinas MD [address] [place] [address] PCP - General Family Medicine 12/12/21 Team Status: Active Member Role Status Dates Yana Ballard SITE SPECIALIST, SITE SPECIALIST-C Primary Care Provider Active Team Status: Inactive Member Role Status Dates Yana Ballard SITE SPECIALIST, SITE SPECIALIST-C Primary Care Provider Active Dr. Isabel Marino MD Attending Provider, Referr ing Provider Active Twisting Frame Fixer Relationship Specialty Start Date End Date Thomas Salinas MD [address] [place] [address] PCP - General Family Medicine 12/12/21 Twisting Frame Fixer Relationship Specialty Start Date End Date Thomas Salinas MD [address] [place] [address] PCP - General Family Medicine 12/12/21 Twisting Frame Fixer Relationship Specialty Start Date End Date Thomas Salinas MD [address] [place] [address] PCP - General Family Medicine 12/12/21 Twisting Frame Fixer Relationship Specialty Start Date End Date Thomas Salinas MD [address] [place] [address] PCP - General Family Medicine 12/12/21 Twisting Frame Fixer Relationship Specialty Start Date End Date Thomas Salinas MD [address] [place] [address] PCP - General Family Medicine 12/12/21 Twisting Frame Fixer Relationship Specialty Start Date End Date Thomas Salinas MD [address] [place] [address] PCP - General Family Medicine 12/12/21 Team [...] 2024 End: April 14, 2024 Barbie Mitchell SITE SPECIALIST, SITE SPECIALIST-C Attending Provider Active Start: April 14, 2024 End: April 14, 2024 Team Status: Inactive Member Role Status Dates Dr. Thomas Salinas MD Primary Care Provider Acti ve Start: April 14, 2024 End: April 14, 2024 Barbie Mitchell SITE SPECIALIST, SITE SPECIALIST-C Attending Provider Active Start: April 14, 2024 End: April 14, 2024 Barbie Mitchell SITE SPECIALIST, SITE SPECIALIST-C Referring Provider Active Start: April 14, 2024 End: April 14, 2024 Team Status: Inactive Member Role Status Dates Dr. Thomas Salinas MD Primary Care Provider Acti ve Start: June 16, 2024 End: June 16, 2024 Dr. Maryann Bajwa , DO Attending Provider Activ e Start: June 16, 2024 End: June 16, 2024 Dr. Maryann Bajwa , DO Referring Provider Activ e Start: June 16, 2024 End: June 16, 2024 Team Status: Active Member Role Status Dates Dr. Thomas Salinas MD Primary Care Provider Acti ve Start: June 18, 2024 Dr. Maryann Bajwa , DO Attending Provider Activ e Start: June 18, 2024 Dr. Maryann Bajwa , DO Referring Provider Activ e Start: June 18, 2024 Team Status: Active Member Role Status Dates Dr. Thomas Salinas MD Primary Care Provider Acti ve Start: June 25, 2024 Dr. Maryann Bajwa , DO Attending Provider Activ e Start: June 25, 2024 Dr. Maryann Bajwa , DO Referring Provider Activ e Start: June 25, 2024 Team Status: Inactive Member Role Status Dates Dr. Thomas Salinas MD Primary Care Provider Acti ve Start: June 18, 2024 End: June 18, 2024 Dr. Maryann Bajwa , DO Attending Provider Activ e Start: June 18, 2024 End: June 18, 2024 Dr. Maryann Bajwa DO Referring Provider Activ e Start: June 18, 2024 End: June 18, 2024 Team Status: Active Member Role Status Dates Dr. Thomas Salinas MD Primary Care Provider Acti ve Start: June 27, 2024 Dr. Maryann Bajwa , DO Attending [...] End: July 02, 2024 Dr. Maryann Bajwa , DO Attending Provider Activ e Start: July [...] 2024 End: August 05, 2024 Barbie Mitchell SITE SPECIALIST, SITE SPECIALIST-C Attending Provider Active Start: August 05, 2024 End: August 05, 2024 Team Status: Inactive Member Role Status Dates Dr. Thomas Salinas MD Primary Care Provider Acti ve Start: August 17, 2024 End: August 17, 2024 Dr. Thomas Salinas MD Referring Provider Active Start: August 17, 2024 End: August 17, 2024 Barbie Mitchell SITE SPECIALIST, SITE SPECIALIST-C Attending Provider Active Start: August 17, 2024 [...] 2024 End: August 05, 2024 Barbie Mitchell SITE SPECIALIST, SITE SPECIALIST-C Attending Provider Active Start: August 05, 2024 End: August 05, 2024 Team Status: Inactive Member Role/Relationship Status Dates Dr. Thomas Salinas MD Primary Care Provider Acti ve Start: August 17, 2024 End: August 17, 2024 Dr. Thomas Salinas MD Referring Provider Active Start: August 17, 2024 End: August 17, 2024 Barbie Mitchell SITE SPECIALIST, SITE SPECIALIST-C Attending Provider Active Start: August 17, 2024 [...] 2024 End: August 05, 2024 Barbie Mitchell SITE SPECIALIST, SITE SPECIALIST-C Attending Provider Active Start: August 05, 2024 End: August 05, 2024 Team Status: Inactive Member Role/Relationship Status Dates Dr. Thomas Salinas MD Primary Care Provider Acti ve Start: August 17, 2024 End: August 17, 2024 Dr. Thomas Salinas MD Referring Provider Active Start: August 17, 2024 End: August 17, 2024 Barbie Mitchell SITE SPECIALIST, SITE SPECIALIST-C Attending Provider Active Start: August 17, 2024 [...] End: August 05, 2024 Barbie Mitchell NP, SITE SPECIALIST-C Attending Provider Active Start: August 05, 2024 End: August 05, 2024 Team Status: Inactive Member Role/Relationship Status Dates Dr. Thomas Salinas MD Primary Care Provider Acti ve Start: August 17, 2024 End: August 17, 2024 Dr. Thomas Salinas MD Referring Provider Active Start: August 17, 2024 End: August 17, 2024 Barbie Mitchell SITE SPECIALIST, SITE SPECIALIST-C Attending Provider Active Start: August 17, 2024 [...] 2024 End: December 01, 2024 Barbie Mitchell SITE SPECIALIST, SITE SPECIALIST-C Attending Provider Active Start: December 01, 2024 [...] 2024 End: August 17, 2024 Barbie Mitchell SITE SPECIALIST, SITE SPECIALIST-C Attending Provider Active Start: August 17, 2024 [...] End: December 01, 2024 Barbie Mitchell NP, SITE SPECIALIST-C Attending Provider Active Start: December 01, 2024 [...] 14, 2024 End: September 14, 2024 Dr. hTomas Salinas MD Referring Provider Active Start: September [...] 2024 End: December 01, 2024 Barbie Mitchell SITE SPECIALIST, SITE SPECIALIST-C Attending Provider Active Start: December 01, 2024 [...] 2024 End: December 28, 2024 Barbie Mitchell NP, SITE SPECIALIST-C Attending Provider Active Start: December 28, 2024 [...] 2024 End: December 01, 2024 Barbie Mitchell SITE SPECIALIST, SITE SPECIALIST-C Attending physician Active Start: December 01, 2024 [...] 2024 End: December 28, 2024 Barbie Mitchell NP, SITE SPECIALIST-C Attending physician Active Start: December 28, 2024 [...] 08/10Labor Preferences-CB/BF classes: scheduled 06/04labor support person: Madan intervention preferences: open to standard interventionspain management options preferred: desires natural labor but open to epiduralcut cord/dad catch: bothbreastfeeding: yesPP control planned: []discussed possible routes of delivery and associated risks: discussed possible delivery modalities and possible indications for each including R/B/A of , VAVD, FAVD, and CS. questions answered.special requests: [] Care Experience Labor Preferences-CB /BF classes: nolabor support person: Madan intervention preferences: []pain management options preferred: epiduralcut [...] BE BASED ON THE PRIMARY CLINICAL RECORDS. [employer] [facility]. provides no warranty or guarantee of the accuracy or completeness of information in this document.
[2025-02-02 21:27] LABS: Group B Strep DNA By PCR Negative (Negative)
== END 2025-02-02 21:25 | disposition home or self-care (01) ==
LOC: WPOUT 19:06 → WP 19:06
PROVIDERS: Admitting Provider Obstetrics & Gynecology; PCP Family Medicine; Referring Provider Obstetrics & Gynecology; Visit Provider Obstetrics & Gynecology
DX: O36.8130 Decreased fetal movements, third trimester, not applicable or unspecified (principal); Z87.891 Personal history of nicotine dependence; Z3A.36 36 weeks gestation of pregnancy; O62.9 Abnormality of forces of labor, unspecified
CPT/HCPCS: 96360; 59025; 59050; 87081; 87653; 99221; A4216; G0378

== ENCOUNTER 2025-02-06 08:14 | Inpatient (IN) | payer OTHER, SELFPAY ==
[2025-02-06] VITALS (122 sets, daily range): BP systolic 81–122; BP diastolic 50–82; PULSE 69–173; RESP 15–18; TEMP 35.9–36.9; O2SAT 90–100; BMI 35.4
--- OUTSIDE RECORDS SUMMARY | 2025-02-06 07:26 | XMS RPT_ITS | CCD ---
Author Organization [facility] Care Team Providers Care Photographic Editor Name Role Phone Ana Rosa Wallace IIIand Mingo Primary Care Physician [phone] Ziol SPECIAL SERVICES SUPERVISOR.Yana KAUFMAN Primary Care Provider Elio SPECIAL SERVICES SUPERVISOR.Yana KAUFMAN Primary Care Provider Elio SPECIAL SERVICES SUPERVISOR.Yana KAUFMAN Primary Care Provider Thomas Salinas MD [...] Attending Unavailable HABBOUB, KONSTANTIN Referring Unavailable GRABENSTETTER, THOAMS F Primary Care Unavailabl e HABBOUB, KONSTANTIN [...] e Dr. Royce Chapin DO Attending Provider [phone] Dr. Royce Chapin DO Emergency Provider Brad WHITAKER, Dr. Machado Primary Care Provider Jamila WHITAKER, Dr. Hall Attending Provider [phone] Jamila WHITAKER, Dr. Hall Referring Provider Brad WHITAKER, Dr. Machado Referring Provider [place] SENIOR PRODUCTION SUPERVISOR-C, Barbie Attending Provider [place] SENIOR PRODUCTION SUPERVISOR-C, Barbie Referring Provider [phone] Judy Worthington DO, Dr. Wolf Attending Provider Judy Worthington DO, Dr. Wolf Referring Provider Thuan RN, Renay Attending Provider [facility] ioana Salinas MD, Dr. Machado Primary Care Provider Brad WHITAKER, Dr. Machado Referring Provider Paula SENIOR PRODUCTION SUPERVISOR-C, Barbie Attending Provider [phone] Juan ARRIAGA, Ximena Attending Provider [phone] THOMAS SALINAS F [facility] VY MICHAUD Attending Unavailable XIMENA MCGHEE S Referring Unavailable Jamila WHITAKER, Dr. Hall Attending Provider [phone] Jamila WHITAKER, Dr. Hall Referring Provider [phone] Brad WHITAKER, Dr. Machado Primary Care Provider Judy Worthington DO, Dr. Wolf Attending Provider Judy Worthington DO, Dr. Wolf Referring Provider Brad WHITAKER, Dr. Machado Primary Care Provider Brad WHITAKER, Dr. Machado Referring Provider Ximena Mcghee CNM Referring Provider [phone] Brad WHITAKER, Dr. Machado Primary Care Provider Brad WHITAKER, Dr. Machado Referring Provider Paula SENIOR PRODUCTION SUPERVISOR-C, Barbie Attending Provider [phone] Judy Worthington DO, Dr. Wolf Attending Provider Brad WHITAKER, Dr. Machado Primary Care Provider Brad WHITAKER, Dr. Machado Referring Provider [phone] Paula SENIOR PRODUCTION SUPERVISOR-CBarbie Attending Provider [phone] Brad WHITAKER, Dr. Machado Primary Care Physicia n Jamila WHITAKER, Dr. Hall Attending Physician Brad WHITAKER, Dr. Machado Referring Provider Ximena Mcghee CNM Attending Physician [phone] Paula SENIOR PRODUCTION SUPERVISOR-CBarbie Attending Physician [phone] Judy Worthington DO, Dr. Wolf Attending Physician Maryann Bajwa Referring Unavailabl e Vande Velde, Maryann Admitting Unavailabl e Vande Velde, Maryann Attending Unavailabl e Grabenstetter, Thomas Primary Care Unavailable Grabenstetter, Thomas Primary Care Unavailable Vande Velde, Maryann Attending Unavailabl e Grabenstetter, Thomas Primary Care Unavailable Vande Velde, Maryann Attending Unavailabl e Vande Velde, Maryann Referring Unavailabl e Vande Velde, Maryann Referring Unavailabl e Vande Velde, Maryann Attending Unavailabl e Grabenstetter, Thomas Primary Care Unavailable Ximena Mcghee Attending Unavailable Grabenstetter, Thomas Primary Care Unavailable Grabenstetter, Thomas Referring Unavailable Vande Velde, Maryann Attending Unavailabl e Grabenstetter, Thomas Primary Care Unavailable Grabenstetter, Thomas Referring Unavailable Paula SENIOR PRODUCTION SUPERVISORBarbie Attending Unavailable Grabenstetter, Thomas Referring Unavailable Grabenstetter, Thomas Primary Care Unavailable Ximena Mcghee Attending Unavailable Grabenstetter, Thomas Referring Unavailable Grabenstetter, Thomas Primary Care Unavailable Ximena Mcghee Referring Unavailable Grabenstetter, Thomas Primary Care Unavailable Ximena Mcghee Attending Unavailable Isabel Marino Attending Unavailable Isabel Marino Referring Unavailable Grabenstetter, Thomas Primary Care Unavailable Paula SENIOR PRODUCTION SUPERVISOR, Barbie Attending Unavailable Paula SENIOR PRODUCTION SUPERVISOR, Barbie Referring Unavailable Grabenstetter, Thomas Primary Care Unavailable Vande Velde, Maryann Referring Unavailabl e Vande Velde, Maryann Attending Unavailabl e Grabenstetter, Thomas Primary Care Unavailable Ximena Mcghee Attending Unavailable Ximena Mcghee Referring Unavailable Grabenstetter, Thomas Primary Care Unavailable Royce Chapin Attending Unavailable Grabenstetter, Thomas Primary Care Unavailable [place] SENIOR PRODUCTION SUPERVISOR, Barbie Attending Unavailable Grabenstetter, Thomas Primary Care Unavailable Grabenstetter, Thomas Referring Unavailable Ximena Mcghee Attending Unavailable Grabenstetter, Thomas Referring Unavailable Grabenstetter, Thomas Primary Care Unavailable Isabel Marino Attending Unavailable Grabenstetter, Thomas Referring Unavailable Grabenstetter, Thomas Primary Care Unavailable Vandioana Worthington, Maryann Referring Unavailabl e Vande Velde, Maryann Attending Unavailabl e Grabenstetter, Thomas Primary Care Unavailable Isabel Marino Attending Unavailable Isabel Marino Referring Unavailable Grabenstetter, Thomas Primary Care Unavailable Isabel Marino Referring Unavailable Isabel Marino Attending Unavailable Grabenstetter, Thomas Primary Care Unavailable Vandioana Worthington, Maryann Referring Unavailabl e Vande Velde, Maryann Attending Unavailabl e Grabenstetter, Thomas Primary Care Unavailable Paula SENIOR PRODUCTION SUPERVISOR, Barbie Attending Unavailable Grabenstetter, Thomas Referring Unavailable Grabenstetter, Thomas Primary Care Unavailable [place] SENIOR PRODUCTION SUPERVISORBarbie Attending Unavailable Grabenstetter, Thomas Primary Care Unavailable Grabenstetter, Thomas Referring Unavailable Ximena Mcghee Attending Unavailable Grabenstetter, Thomas Primary Care Unavailable Grabenstetter, Thomas Referring Unavailable Renay Larose Attending Unavailable Grabenstetter, Thomas Primary Care Unavailable Vande Sanchezde, Maryann Attending Unavailabl e Grabenstetter, Thomas Primary Care Unavailable Grabenstetter, Thomas Referring Unavailable Vande Velde, Maryann Referring Unavailabl e Vande VeldeMaryann Admitting Unavailabl e Vande Velde, Maryann Consulting Unavailabl e Vande Velde, Maryann Attending Unavailabl e Grabenstetter, Thomas Primary Care Unavailable Isabel Marino Attending Unavailable Grabenstetter, Thomas Primary Care Unavailable Grabenstetter, Thomas Referring Unavailable VandMaryann Uribe Attending Unavailabl e Grabenstetter, Thomas Referring Unavailable Grabenstetter, Thomas Primary Care Unavailable Maryann Bajwa Referring Unavailabl e Vande Maryann Worthington Attending Unavailabl e Grabenstetter, Thomas Primary Care Unavailable Paula HAMLIN, Barbie Attending Unavailable Grabenstetter, Thomas Referring Unavailable Grabenstetter, Thomas Primary Care Unavailable Maryann Bajwa Attending Unavailabl e Vande Maryann Worthington Referring Unavailabl e Grabenstetter, Thomas Primary Care Unavailable Allergies Allergy Classification Reported Allergen(s) Allergy Type Date of Onset Reaction(s) Facility (17 sources) Amoxicillin; Translations: [amoxicillin] Drug Allergy 4 Hives, Rash [facility] (20 sources) Shellfish; Translations: [shellfish] Drug allergy 3 Swelling, Shortness of Breath [facility] (9 sources) Penicillins; Translations: [PENICILLINS] Drug Intolerance 3 [facility] (20 sources) Penicillins Drug Intolerance 3 [facility] (20 sources) Vancomycin; Translations: [VANCOMYCIN] Drug Allergy 2 Itching [facility] (17 sources) Penicillins Allergy to substance 2 hives, breathing issues [facility] (18 sources) Shellfish; Translations: [shellfish derived] Allergy to substance 2 [facility] (1 source) Amoxicillin Drug Allergy 5 [facility] (1 source) Penicillins Drug allergy (disorder) 5 [facility] (1 source) Vancomycin Drug Allergy 5 [facility] Medications Current Medications Medication [...] Start: 12-01-2024 take 1 tablet by rodney th once daily Magnesium 200 mg tablet Active [...] 11/16/2021 Active take 1 tablet by rodney th once daily methylPREDNISolone (MEDROL) 16 mg tablet [...] 4 mg PO EVERY 6 HOURS 30 July 20, 2024 12:00am Complies with drug [...] 10/07/2021 11/15/2021 Discontinued Start: 09-13-2021 End: 09-19-2021 [place] 325 mg-5 mg oral table t 1 [...] Comment on above: Take 1 tablet by rodeny every 4 hours as needed for pain (for pain.). Take 1 tablet by rodney every 8 hours as needed for pain (for pain.). biotin 1 mg oral capsule (16 sources) Start: 10-05-19 End: 01-20-20 24 take 1 capsule by [...] Comment on above: [facility] as [facility] for [...] 1 capsule by mo [facility] twice daily. famotidine 20 mg oral [...] on above: Take 1 capsule by mo ut daily at bedtime for 30 days. Take 1 capsule by mo ut three times daily for 30 days. Take [...] 2024 1:00am July 03, 2024 1:08pm levonorgestrel 0.222151 mg/hr intrauterine system (20 sources) Progestin, Progestin-containing [...] rodney th once daily for 7 days. methocarbamol 750 [...] above: Take 1 tablet by rodney th three times daily as needed. Take 500 mg by mouth three times daily as needed. Take 1 tablet by rodney th three times daily. metoclopramide 10 mg oral [...] above: Take by mouth as nee ded. Xeqsatbm-Ppr-Ae-Fa (1 source) Start: 2020 End: 2020 take 1 tablet by mouth once daily Yjtfnlpn-Ofr-Bm-Fa Discontinued 1 TABLET PO DAILY August 10, 2020 12:00am November 09, 2020 11:39am Suuajgcq-Ybb-Fd-Fa 1 mg Tablet (16 sources) Start: 2020 End: 2020 take 1 tablet by mouth once daily Kuxruxqu-Gvg-Oh-Fa 1 mg Tablet Discontinued 1 {tbl} PO DAILY August 10, 2020 12:00am November 09, 2020 11:39am Start: 08-10-2020 End: 11-09-2020 take 1 tablet by mouth once daily Szgkcahq-Fbj-Qt-Fa 1 mg Tablet Discontinued 1 {tbl} PO DAILY August 10, 2020 12:00am November 09, 2020 11:39am Problems Active Problems Problem Classification Problem Date Documented Da te Episodic/Chronic Anxiety disorders (17 sources) Anxiety; Translations: [Anxiety disorder, unspecified] Onset: 02-02-2025 12-01-2024 Chronic Comment on above: discussed counseling [...] PC: Janie; : Aden Other complications of (2 sources) Supervision of high risk , unspecified, second trimester; Translations: [Supervision of high risk , unspecified, second trimester] Onset: 02-02-2025 Episodic Other gastrointestinal disorders (1 source) Diarrhea; [...] [Flushing] Onset: 05-16-2023 Episodic Residual codes; unclassified (2 sources) 36 weeks gestation of ; Translations: [36 weeks gestation of ] Onset: 02-02-2025 Episodic Residual codes; unclassified (1 source) 35 [...] Test Name Value Interpretation Reference Range Facility Rule out Beta Strep (Grp. B) on 02-04-2025 [facility] Group B Beta Streptococcus is not isolated. Normal [facility] Comment on above: Performed By: #### L 501.0250, L100.0100, L509.8002, L3890.6006 #### [facility] [address] [place], [address] Rule out Beta Strep (Grp. B) on 02-03-2025 OMA Group B Beta Streptococcus is not isolated. Normal [facility] Comment on above: Performed By: #### L 501.0250, L100.0100, L509.8002, L3890.6006 #### [facility] [address] [place], [address] Group B Strep DNA By PCRon 1 GBS DNA ASSAY Negative Normal Negative [facility] Comment on above: Performed By: #### L 8200.0000 #### [facility] [address] [place], [address] OB Triage Physician Noteon 1 OB Triage Physician Note [facility] Medical Records Department [address] [place] [place] [address] OB Triage Physician Note 02/02/25 1903 MR#: [id number] Acct: [id number] Name: HANNAH HENDRICKS Rep #: [id number] : 1990 34 From: Maryann Bajwa DO PCP: Dr. Thomas Salinas MD Status:REG CLI Y Location: [place] [address] HPI - General General Date of Admission: 02/02/25 HPI Narrative HANNAH HENDRICKS, is a 34 F @ 36 weeks 6 days who presents with decreased movement and painful contractions. After 2 hour she did not change her cervix despite iv fluids and continuous contractions every 3 minutes. The patient lives over [place] hour away and is nervous she will go into labor at home. The decision was made to admit to observation over night and if contractions down at anytime she may go home, but if picks up and changes cervix will admit for labor. Maternal Data Information BALAJI Calculator Estimated Delivery Date Method Current WG Current Estimate 02/24/25 Ultrasound #1 36w 6d Other Estimates 02/27/25 LMP (Certain) 36w 3d PFSH PFSH Medical History Spontaneous Herniated disc Endometritis following delivery Home Medications ???Medication ???Instructions ???Recorded ???Last Taken ???Type docosahexaenoic acid 200 mg 200 mg PO DAILY 04/01/24 02/01/25 21:00 History capsule ( DHA) 200 mg sertraline 50 mg tablet (Zoloft) 50 mg PO QDAY #30 tabs 12/03/24 21:00 Rx 50 mg Lactobacills gasseri-Bifidobac 2 cap PO DAILY 02/02/25 02/01/25 2 1:00 History bifidum,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 2 caps capsule magnesium glycinate 120 mg (as 240 mg PO DAILY 02/02/25 02/01/25 21:00 History glycinate) capsule 240 mg Allergy/AdvReac Type Severity Reaction Status Date / Time amoxicillin Allergy Intermediate Rash Verified 02/02/25 16:59 vancomycin Allergy Intermediate Rash Verified 02/02/25 16:59 Penicillins Allergy Mild hives Verified 02/02/25 16:59 shellfish derived Allergy Mild hives Verified 02/02/25 16:59 Family History Uncle Colon cancer Liver cancer Grandfather Liver cancer Pancreatic cancer Uncle Diverticulitis Grandmother Heart disease Uncle Heart disease Surgical History Previous back surgery Social History adopted: No household members: spouse and children housing: house number of children: 1 current occupational status: employed current occupation: [employer] current occupational exposures/hazards: No pets and animals: [...] 3-4 times per week duration: 15-30 minutes/day agata/adventist: Rastafari seatbelt use: always do you feel safe at home: Yes 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 Date Name GA/Weeks Outcome Route Bth Weight Infant Gen Labor Lgth Anesthesia Del Locatn Provider FOB 08/11/20 Janie 39 live - full term 7lbs 8.5oz Female epidural [facility] Dr. Quang Samaniego 03/15/24 4 spontaneous Delivery Date: 08/11/20 Last Updated by: Cherelle Reeder Induced Visit Details Expected Delivery Route/Plan Labor Preferences- CB/BF classes: no labor support person: Aden labor intervention preferences: [] pain management options preferred: epidural cut cord/dad catch: cord : yes PP control planned: discussed discussed possible routes of delivery and associated risks: [] special requests: [] Plans Covid status: [] Flu vaccine: [] Tdap vaccine: given Rhogam: NA LARC form signed: yes Problem list reviewed and updated with the most current plan of care details and appropriate orders placed. Relevant counseling for the gestational age provided. Continue routine care and follow up unless otherwise noted in visit notes/problem list details (more content not included)... Normal [facility] Prevention Specialist Office Visit Reporton 02-01-2025 Prevention Specialist Office Visit Report [facility] [address], [address] [place] [address] OFFICE VISIT Date of Service: 02/01/25 MR#: [id number] Acct: [id number] Name: HANNAH HENDRICKS Rep #: [id number] : 1990 Provider: BART Kaur ams Age/Sex: 34/F [place] [facility] Status: Signed Intake Vital Signs 12/15/24 09:22 01/26/25 09:21 02/01/25 09:19 Height 5 ft 6 in 5 ft 6 in 5 ft 6 in Weight: 214 lb 7 oz BMI 34.6 BP 109/75 Intake Visit Reasons: 37wk ob Chief Complaint: 37wk OB Software Trainer Required: No Is patient in pain?: No [...] #30 tabs 12/03/24 Rx Last Menstrual Period: 02/08/25 : No Have you fallen in the [...] 1 current occupational status: employed current occupation: [employer] current occupational exposures/hazards: No pets and animals: [...] 3-4 times per week duration: 15-30 minutes/day agata/adventist: Rastafari seatbelt use: always do you feel safe at home: Yes 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 Date Name GA/Weeks Outcome Route Bth Weight Gen Labor Lgth Anesthesia Del Locatn Provider FOB 08/11/20 Janie 39 live - full term 7lbs 8.5oz Female epidural [facility] Dr. Quang Samaniego 03/15/24 4 spontaneous Delivery [...] ???-???-???-???-???-? ??- (more content not included)... Normal [facility] Prevention Specialist Office Visit Reporton 01-26-2025 Prevention Specialist Office Visit Report [facility] [address] [place] [address], [address] [place] [address] OFFICE VISIT Date of Service: 01/26/25 MR#: [id number] Acct: [id number] Name: HANNAH HENDRICKS Rep #: [id number] : 1990 Provider: Dr. 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 Date Name GA/Weeks Outcome Route Bth Weight Gen Labor Lgth Anesthesia Del Locatn Provider FOB 08/11/20 Janie 39 live - full term 7lbs 8.5oz Female epidural [facility] Dr. Quang Samaniego 03/15/24 4 spontaneous Delivery Date: 08/11/20 Last Updated by: Cherelle Reeder Induced HPI 36 WK OB Details: HANNAH HENDRICKS is a 34 year old who presents for routine OB visit. OB Visit BAALJI Calculator Estimated Delivery Date Method Current WG [...] ???-???-???-???-???-? ??-???- (more content not included)... Normal [facility] Prevention Specialist Office Visit Reporton 01-11-2025 Prevention Specialist Office Visit Report [facility] [address], [address] [place] [address] OFFICE VISIT Date of Service: 01/11/25 MR#: [id number] Acct: [id number] Name: HANNAH HENDRICKS Rep #: [id number] : 1990 Provider: BART Kaur ams Age/Sex: 34/F Location[place] [facility] Status: Signed Intake Vital Signs 12/01/24 08:19 01/11/25 09:59 01/11/25 09:59 Height 5 ft 6 in 5 ft 6 in 5 ft 6 in Weight: 215 lb 5 oz BMI 34.7 BP 118/75 Intake Visit Reasons: 34 WK OB Software Trainer Required: No Is patient in pain?: No [...] 4 mg PO Q6H #30 tabs 07/20/24 09/2 01/07 Rx magnesium 200 mg tablet 200 mg [...] 1 current occupational status: employed current occupation: [employer] current occupational exposures/hazards: No pets and animals: [...] 3-4 times per week duration: 15-30 minutes/day agata/adventist: Rastafari seatbelt use: always do you feel safe at home: Yes 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 Date Name GA/Weeks Outcome Route Bth Weight Infant Gen Labor Lgth Anesthesia Del Locatn Provider FOB 08/11/20 Janie 39 live - full term 7lbs 8.5oz Female epidural [facility] Dr. Quang Samaniego 03/15/24 4 spontaneous Delivery [...] ???-???-???-???-???-? ??-???- (more content not included)... Normal [facility] - Chemistry and C hemistry - challengeOrdered By: Barbie Mitchell on 12-28-2024 Glucose Ql (U) Negative [facility] - UrinalysisOrder ed By: Barbie Mitchell on 12-28-2024 Protein Ql (U) Trace [facility] Prevention Specialist Office Visit Reporton 12-28-2024 Prevention Specialist Office Visit Report [facility], [address] [place] [address] OFFICE VISIT Date of Service: 12/28/24 MR#: [id number] Acct: [id number] Name: HANNAH HENDRICKS Rep #: [id number] : 1990 Provider: SHAWN wray Age/Sex: 34/F [place] [facility] Status: Signed Intake Vital Signs 11/09/24 08:55 12/15/24 09:22 12/28/24 09:45 12/28/24 09:50 Height 5 ft 6 in 5 ft 6 in 5 ft 6 in 5 ft 6 in Weight: 210 lb BMI 33.9 BP 118/72 Intake Visit Reasons: 32wk ob Chief Complaint: 32 Week OB Software Trainer Required: No Is patient in pain?: No [...] current occupational status: employed current occupation: [employer] current occupational exposures/hazards: No pets and animals: [...] 3-4 times per week duration: 15-30 minutes/day agata/adventist: Rastafari seatbelt use: always do you feel safe at home: Yes 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 Date Name GA/Weeks Outcome Route Bth Weight Gen Labor Lgth Anesthesia Del Locatn Provider FOB 08/11/20 Janie 39 live - full term 7lbs 8.5oz Female epidural [facility] Dr. Quang Samaniego 03/15/24 4 spontaneous Delivery [...] Pres Dilatio (more content not included)... Normal [facility] - Chemistry and C hemistry - challengeOrdered By: Maryann Worthington on 12-15-2024 Glucose Ql (U) Negative [facility] - UrinalysisOrder ed By: Maryann Worthington on 12-15-2024 Protein Ql (U) Trace [facility] Prevention Specialist Office Visit Reporton 12-15-2024 Prevention Specialist Office Visit Report [facility] [address], [address] [place] [address] OFFICE VISIT Date of Service: 12/15/24 MR#: [id number] Acct: [id number] Name: ELADIOHANNAH DING Rep #: [id number] : 1990 Provider: Dr. Maryann Mcclain, Age/Sex: 34/F Location[place] [facility] [place] Status: Signed Intake Vital Signs 10/12/24 15:54 12/01/24 08:19 12/15/24 09:22 12/15/24 09:22 Height 5 ft 6 in 5 ft 6 in 5 ft 6 in 5 ft 6 in Weight: 205 lb 9 oz BMI 33.1 BP 106/69 Intake Visit Reasons: 30 wk ob Software Trainer Required: No Is patient in pain?: No [...] tablet 4 mg PO Q6H #30 tabs 07/20/24/06/09 Rx magnesium 200 mg tablet 200 mg [...] 1 current occupational status: employed current occupation: [employer] current occupational exposures/hazards: No pets and animals: [...] 3-4 times per week duration: 15-30 minutes/day agata/adventist: Rastafari seatbelt use: always do you feel safe at home: Yes 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 Date Name GA/Weeks Outcome Route Bth Weight Gen Labor Lgth Anesthesia Del Locatn Provider FOB 08/11/20 Janie 39 live - full term 7lbs 8.5oz Female epidural [facility] Dr. Quang Samaniego 03/15/24 4 spontaneous Delivery [...] Dilation -???-???-???-???- (more content not included)... Normal [facility] Absolute lymphocyte countOrd ered By: Ximena Mcghee on 12-01-2024 Lymphocytes Auto (Unsp spec) [#/Vol] 1.59 10*3/uL 0.83-4.51 [facility] Absolute neutrophil countOrd ered By: Ximena Mcghee on 12-01-2024 Neutrophils (Bld) [#/Vol] 5.5 10*3/uL 2.0-7.7 [facility] Automated lymphocyte count a s percentage of total leukocytesOrdered By: Ximena Mcghee on 12-01-2024 Lymphocytes/100 WBC Auto (Unsp spec) 19.6 % 19-41 [facility] Basophil percentageOrdered B y: Ximena Mcghee on 12-01-2024 Basophils/100 WBC (Bld) 0.4 % 0-1 [facility] CBC W/Diff, Automatedon 11-13 Absolute Lymph 1.59 X10 3/uL Normal 0.83-4.51 [facility] Comment on above: Performed By: #### L 501.0250, L100.0100, L509.8002, L3890.6006 #### [facility] [address] [place], [address] Absolute Neut 5.5 X10 3/uL Normal 2.0-7.7 [facility] Comment on above: Performed By: #### L 501.0250, L100.0100, L509.8002, L3890.6006 #### [facility] [address] [place], [address] Basophils/100 WBC (Bld) 0.4 % Normal 0-1 [facility] Comment on above: Performed By: #### L 501.0250, L100.0100, L509.8002, L3890.6006 #### [facility] [address] [place], [address] Eosinophils/100 WBC (Bld) 8.1 % High 0-5 [facility] Comment on above: Performed By: #### L 501.0250, L100.0100, L509.8002, L3890.6006 #### [facility] [address] [place], [address] Erythrocyte distribution width (RBC) [Ratio] 12.1 % Normal 11.6-14.6 [facility] Comment on above: Performed By: #### L 501.0250, L100.0100, L509.8002, L3890.6006 #### [facility] [address] [place], [address] Hematocrit (Bld) [Volume fraction] 34.9 % Low 37-47 [facility] Comment on above: Performed By: #### L 501.0250, L100.0100, L509.8002, L3890.6006 #### [facility] [address] [place], [address] Hemoglobin (Bld) [Mass/Vol] 11.9 g/dL Low 12.0-15.0 [facility] Comment on above: Performed By: #### L 501.0250, L100.0100, L509.8002, L3890.6006 #### [facility] [address] [place], [address] IG% 0.400 Normal 0.0-0.9 [facility] Comment on above: Result Comment: IG% - Immature Granulocytes (promyelocytes, myelocytes and metamyelocytes) > 1% indicates that a LEFT SHIFT is Present. Performed By: #### L 501.0250, L100.0100, L509.8002, L3890.6006 #### [facility] [address] [place], [address] Lymphocytes/100 WBC (Bld) 19.6 % Normal 19-41 [facility] Comment on above: Performed By: #### L 501.0250, L100.0100, L509.8002, L3890.6006 #### [facility] [address] [place], [address] MCH (RBC) [Entitic mass] 33.1 pg High 27.0-32.0 [facility] Comment on above: Performed By: #### L 501.0250, L100.0100, L509.8002, L3890.6006 #### [facility] [address] [place], [address] MCHC (RBC) [Mass/Vol] 34.1 g/dL Normal 32-36 [facility] Comment on above: Performed By: #### L 501.0250, L100.0100, L509.8002, L3890.6006 #### [facility] [address] [place], [address] MCV (RBC) [Entitic vol] 97.2 fL Normal 81-[address] [facility] Comment on above: Performed By: #### L 501.0250, L100.0100, L509.8002, L3890.6006 #### [facility] [address] [place], [address] Monocytes/100 WBC (Bld) 4.2 % Normal 0-[address] [facility] Comment on above: Performed By: #### L 501.0250, L100.0100, L509.8002, L3890.6006 #### [facility] [address] [place], [address] Neutrophils/100 WBC (Bld) 67.3 % Normal 47-70 [facility] Comment on above: Performed By: #### L 501.0250, L100.0100, L509.8002, L3890.6006 #### [facility] [address] [place], [address] Nucleated RBC (Bld) [#/Vol] 0 10*3/uL Normal 0-5 [facility] Comment on above: Performed By: #### L 501.0250, L100.0100, L509.8002, L3890.6006 #### [facility] [address] [place], [address] Platelet mean volume (Bld) [Entitic vol] 10.0 fL Normal 6.2-12.0 [facility] Comment on above: Performed By: #### L 501.0250, L100.0100, L509.8002, L3890.6006 #### [facility] [address] [place], [address] Platelets (Bld) [#/Vol] 249 10*3/uL Normal 150-450 [facility] Comment on above: Performed By: #### L 501.0250, L100.0100, L509.8002, L3890.6006 #### [facility] [address] [place], [address] RBC (Bld) [#/Vol] 3.59 10*6/uL Low 4.2-5.4 [facility] Comment on above: Performed By: #### L 501.0250, L100.0100, L509.8002, L3890.6006 #### [facility] [address] [place], [address] RDW SD 43.2 fl Normal 35.1-43.9 [facility] Comment on above: Performed By: #### L 501.0250, L100.0100, L509.8002, L3890.6006 #### [facility] [address] [place], [address] WBC (Bld) [#/Vol] 8.1 10*3/uL Normal 4.4-11.0 [facility] Comment on above: Performed By: #### L 501.0250, L100.0100, L509.8002, L3890.6006 #### [facility] [address] [place], [place], [address] Eosinophil percentageOrdered By: Ximena Mcghee on 12-01-2024 Eosinophils/100 WBC (Bld) 8.1 % High 0-5 [facility] Erythrocyte distribution wid th ratioOrdered By: Ximena Mcghee on 12-01-2024 Erythrocyte distribution width (RBC) [Ratio] 12.1 % 11.6-14.6 [facility] Erythrocyte distribution wid th standard deviationOrdered By: Ximena Mcghee on 12-01-2024 Erythrocyte distribution width (RBC) [Ratio] 43.2 fl 35.1-43.9 [facility] Glucose Challenge Gest 1H 50 kirsten 12-01-2024 GLU GEST 50g 1H 130 mg/dL Normal 70-140 [facility] Comment on above: Result Comment: AMENDED REPORT 12/01/24 1330 GLU GEST 50g 1H previously reported as: 133 mg/dL Performed By: #### L 501.0250, L100.0100, L509.8002, L3890.6006 #### [facility] [address] [place], [place], [address] Glucose measurement at 2 benigno rs post-dose gestational glucose tolerance testOrdered By: Ximena Mcghee on 12-01-2024 Glucose [Mass/Vol] 130 mg/dL 70-140 [facility] Comment on above: Previous reported re sult: 133 mg/dLEdited by: PRASHANT on 12/01/24:1330 AMENDED REPORT 12/01/24 1330 GLU GEST 50g 1H previously reported as: 133 mg/dL HIVon 12-01-2024 HIV Non-Reactive Normal Nonreactive [facility] Comment on above: Result Comment: Non- Reactive Reactive Repeatedly reactive samples must be confirmed according to CDC recommended confirmatory algorithms. The subresults for either HIVAG or AHIV can be used as an aid in the selection of the confirmation algorithm for reactive samples. Send out specimens with Reactive results to [facility] for confirmation. Order the HIV antibody detection and differentiation: lc#[id number] Performed By: #### L 501.0250, L100.0100, L509.8002, L3890.6006 #### [facility] [place], [address] Hematocrit Auto (Bld) [Volum e fraction]Ordered By: Ximena Mcghee on 12-01-2024 Hematocrit (Bld) [Volume fraction] 34.9 % Low 37-47 [facility] Hemoglobin measurementOrdere d By: Ximena Mcghee on 12-01-2024 Hemoglobin (Bld) [Mass/Vol] 11.9 g/dL Low 12.0-15.0 [facility] Immature granulocytes/100 WB C Auto (Bld)Ordered By: Ximena Mcghee on 12-01-2024 Immature granulocytes/100 WBC (Bld) 0.400 % 0.0-0.9 [facility] Comment on above: IG% - Immature Granu locytes (promyelocytes, myelocytes and metamyelocytes) > 1% indicates that a LEFT SHIFT is Present. Laboratory - Chemistry and C hemistry - challengeOrdered By: Barbie Mitchell on 12-01-2024 Glucose Ql (U) Negative [facility] - UrinalysisOrder ed By: Barbie Mitchell on 12-01-2024 Protein Ql (U) Negative [facility] MCV (mean corpuscular volume ) determinationOrdered By: Ximena Mcghee on 12-01-2024 MCV (RBC) [Entitic vol] 97.2 fL 81-99 [facility] Mean corpuscular hemoglobin (MCH) determinationOrdered By: Ximena Mcghee on 12-01-2024 MCH (RBC) [Entitic mass] 33.1 pg High 27.0-32.0 [facility] Mean corpuscular hemoglobin concentration (MCHC) determinationOrdered By: Ximena Mcghee on 12-01-2024 MCHC (RBC) [Mass/Vol] 34.1 g/dL 32-36 [facility] Mean platelet volume determi nationOrdered By: Ximena Mcghee on 12-01-2024 Platelet mean volume (Bld) [Entitic vol] 10.0 fL 6.2-12.0 [facility] Monocyte percentageOrdered B y: Ximena Mcghee on 12-01-2024 Monocytes/100 WBC (Bld) 4.2 % 0-10 [facility] Neutrophil percentageOrdered By: Ximena Mcghee on 12-01-2024 Neutrophils/100 WBC (Bld) 67.3 % 47-70 [facility] No Panel InformationOrdered By: Ximena Mcghee on 12-01-2024 HIV (1&2) Antibody Non-Reactive Nonreactive [facility] Comment on above: Non-ReactiveReactive Repeatedly reactive samples must be confirmed according to CDC recommended confirmatory algorithms. The subresults for either HIVAG or AHIV can be used as an aid in the selection of the confirmation algorithm for reactive samples.Send out specimens with Reactive results to [facility] for confirmation.Order the HIV antibody detection and differentiation: #[id number] Nucleated red blood cell per centageOrdered By: Ximena Mcghee on 12-01-2024 Nucleated RBC/100 WBC (Bld) [Ratio] 0 % 0-5 [facility] Prevention Specialist Office Visit Reporton 12-01-2024 Prevention Specialist Office Visit Report [facility]'s [address], [address] [place] [address] OFFICE VISIT Date of Service: 12/01/24 MR#: [id number] Acct: [id number] Name: HANNAH HENDRICKS Rep #: [id number] : 1990 Provider: SHAWN wray Age/Sex: 34/F [place] [facility] [place]: Signed Intake Vital Signs 09/14/24 08:59 11/09/24 08:55 12/01/24 08:19 Height 5 ft 6 in 5 ft 6 in 5 ft 6 in Weight: 206 lb 4 oz BMI 33.3 BP 112/70 Intake Visit Reasons: 28wk ob/glucose Chief Complaint: 28 Week OB/Glucose Software Trainer Required: No Is patient in pain?: No [...] 1 current occupational status: employed current occupation: [employer] current occupational exposures/hazards: No pets and animals: [...] 3-4 times per week duration: 15-30 minutes/day agata/adventist: Rastafari seatbelt use: always do you feel safe at home: Yes 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 Date Name GA/Weeks Outcome Route Bth Weight Gen Labor Lgth Anesthesia Del Locatn Provider FOB 08/11/20 Janie 39 live - full term 7lbs 8.5oz Female epidural [facility] Dr. Quang Samaniego 03/15/24 4 spontaneous Delivery [...] Visit Note (more content not included)... Normal [facility] Platelet countOrdered By: Bernardo Mcghee on 12-01-2024 Platelets (Bld) [#/Vol] 249 10*3/uL 150-450 [facility] RBC Auto (Bld) [#/Vol]Ordere d By: Ximena Mcghee on 12-01-2024 RBC (Bld) [#/Vol] 3.59 10*6/uL Low 4.2-5.4 [facility] Syphilis Antibodieson 2024 Syphilis Abs Non-Reactive Normal Nonreactive [facility] Comment on above: Performed By: #### L 501.0250, L100.0100, L509.8002, L3890.6006 #### [facility] [address] [place], [address] White blood cell (WBC) count Ordered By: Ximena Mcghee on 12-01-2024 WBC (Bld) [#/Vol] 8.1 10*3/uL 4.4-11.0 [facility] Laboratory - Chemistry and C hemistry - challengeOrdered By: Ximena Mcghee on 11-09-2024 Glucose Ql (U) Negative [facility] - UrinalysisOrder ed By: Ximena Mcghee on 11-09-2024 Protein Ql (U) Trace [facility] Prevention Specialist Office Visit Reporton 11-09-2024 Prevention Specialist Office Visit Report [facility]'[address], [address] [place] [address] OFFICE VISIT Date of Service: 11/09/24 MR#: [id number] Acct: [id number] Name: HANNAH HENDRICKS Rep #: [id number] : 1990 Provider: BART Kaur ams Age/Sex: 34/F Location[place] [facility] [place] Status: Signed Intake Vital Signs 08/17/24 08:32 10/12/24 15:54 11/09/24 08:55 11/09/24 08:55 Height 5 ft 6 in 5 ft 6 in 5 ft 6 in 5 ft 6 in Weight: 202 lb 6 oz BMI 32.6 BP 104/71 Intake Visit Reasons: 25 wk ob Chief Complaint: 25wk OB Software Trainer Required: No Is patient in pain?: No [...] 4 mg PO Q6H #30 tabs 07/20/24 07/12/07 Rx Last Menstrual Period: 05/23/24 : No PFSH PFSH Medical History Spontaneous Herniated disc Endometritis following delivery Surgical History Previous back surgery Family History Uncle Colon cancer Liver cancer Grandfather Liver cancer Pancreatic cancer Uncle Diverticulitis Grandmother Heart disease Uncle Heart disease Social History adopted: No household members: spouse and children housing: house number of children: 1 current occupational status: employed current occupation: [employer] current occupational exposures/hazards: No pets and animals: [...] 3-4 times per week duration: 15-30 minutes/day agata/adventist: Rastafari seatbelt use: always do you feel safe at home: Yes 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 Date Name GA/Weeks Outcome Route Bth Weight Gen Labor Lgth Anesthesia Del Locatn Provider FOB 08/11/20 Janie 39 live - full term 7lbs 8.5oz Female epidural [facility] Dr. Quang Samaniego 03/15/24 4 spontaneous Delivery [...] 170 -? (more content not included)... Normal [facility] - Chemistry and C hemistry - challengeOrdered By: Isabel Marino on 10-12-2024 Glucose Ql (U) Negative [facility] - UrinalysisOrder ed By: Isabel Marino on 10-12-2024 Protein Ql (U) Negative [facility] Prevention Specialist Office Visit Reporton 10-12-2024 Prevention Specialist Office Visit Report [facility]'s [address], [address] [place] [address] OFFICE VISIT Date of Service: 10/12/24 MR#: [id number] Acct: [id number] Name: HANNAH HENDRICKS Rep #: [id number] : 1990 Provider: Dr. Isabel feldman MD Age/Sex: 34/F Location[place] [facility] [place] Status: Signed Intake Vital Signs 07/20/24 13:59 09/14/24 08:59 10/12/24 15:54 Height 5 ft 6 in 5 ft 6 in 5 ft 6 in Weight: 195 lb 6 oz BMI 31.5 BP 119/75 Intake Visit Reasons: 21wk ob Software Trainer Required: No Is patient in pain?: No [...] tablet 4 mg PO Q6H #30 tabs 07/20/2409/15 Rx Last Menstrual Period: 05/23/24 Zika: Zika [...] 1 current occupational status: employed current occupation: [employer] current occupational exposures/hazards: No pets and animals: [...] 3-4 times per week duration: 15-30 minutes/day agata/adventist: Rastafari seatbelt use: always do you feel safe at home: Yes 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 Date Name GA/Weeks Outcome Route Bth Weight Gen Labor Lgth Anesthesia Del Locatn Provider FOB 08/11/20 Janie 39 live - full term 7lbs 8.5oz Female epidural [facility] Dr. Quang Samaniego 03/15/24 4 spontaneous Delivery [...] ???-???-???-???-???-? ??-???- 170 (more content not included)... [facility] [id number] 10-10-2024 [facility] Misc. COMMENT Normal . [facility] Comment on above: Order Comment: CLEAN CATCH Result Comment: Test Ordered: [id number] AFP, Serum, Open Spina Bifida Results SENIOR PRODUCTION SUPERVISOR [employer]OL[employer] Reference Range: . Test Results: TG Reference Range: . Please refer to the following specimen for additional lab results. Please refer to [id number] for results. Gest. Age on Collection Date SENIOR PRODUCTION SUPERVISOR [employer] Reference Range: . Gestat. Age Based On SENIOR PRODUCTION SUPERVISOR [employer] Reference Range: . Maternal Age At BALAJI SENIOR PRODUCTION SUPERVISOR [employer] Reference Range: . Race SENIOR PRODUCTION SUPERVISOR [employer] Reference Range: . Weight SENIOR PRODUCTION SUPERVISOR [employer] Reference Range: . Insulin Dep Diabetes SENIOR PRODUCTION SUPERVISOR [employer]OL[employer] Reference Range: . Multiple Gestation SENIOR PRODUCTION SUPERVISOR [employer]OL[employer] Reference Range: . AFP Value NOLAB Reference Range: . Test not performed AFP MoM SENIOR PRODUCTION SUPERVISOR [employer] Reference Range: . OSBR Risk 1 IN SENIOR PRODUCTION SUPERVISOR [employer] Reference Range: . Interpretation SENIOR PRODUCTION SUPERVISOR [employer] Reference Range: . Comment: SENIOR PRODUCTION SUPERVISOR [employer] Reference Range: . Tracking SENIOR PRODUCTION SUPERVISOR [employer] Reference Range: . Performed at: CB - [facility] [address] [id number] Metal Milling Machine Operator: Norm Gonzáles PhD, Phone: [phone] Performed at: - [facility] [address] [place], [place] [id number] Metal Milling Machine Operator: Zelalem Ernst [facility], Phone: [phone] Performed By: #### L 400.0001 #### [facility] [address] [place] [address], [address] Laboratory - Chemistry and C hemistry - challengeOrdered By: Ximena Mcghee on 09-14-2024 Glucose Ql (U) Negative [facility] - UrinalysisOrder ed By: Ximena Mcghee on 09-14-2024 Protein Ql (U) Negative [facility] Prevention Specialist Office Visit Reporton 09-14-2024 Prevention Specialist Office Visit Report [facility]'s [address], [address] [place] [address] OFFICE VISIT Date of Service: 09/14/24 MR#: [id number] Acct: [id number] Name: HANNAH HENDRICKS Rep #: [id number] : 1990 Provider: BART Kaur ams Age/Sex: 34/F [place] [facility] Status: Signed Intake Vital Signs 07/20/24 13:59 08/17/24 08:32 09/14/24 08:59 Height 5 ft 6 in 5 ft 6 in 5 ft 6 in Weight: 190 lb 2 oz BMI 30.7 BP 106/71 Intake Visit Reasons: 17wk ob Chief Complaint: 17wk OB Software Trainer Required: No Is patient in pain?: No [...] 4 mg PO Q6H #30 tabs 07/20/24 06/0 06/09 Rx Last Menstrual Period: 05/23/24 : No [...] current occupational status: employed current occupation: [employer] current occupational exposures/hazards: No pets and animals: [...] 3-4 times per week duration: 15-30 minutes/day agata/adventist: Rastafari seatbelt use: always do you feel safe at home: Yes 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 Date Name GA/Weeks Outcome Route Bth Weight Infant Gen Labor Lgth Anesthesia Del Locatn Provider FOB 08/11/20 Janie 39 live - full term 7lbs 8.5oz Female epidural [facility] Dr. Quang Samaniego 03/15/24 4 spontaneous Delivery [...] -???-???-???-???-???- ???-???-?? (more content not included)... Normal [facility] Laboratory - Chemistry and C hemistry - challengeOrdered By: Barbie Mitchell on 08-17-2024 Glucose Ql (U) Negative [facility] - UrinalysisOrder ed By: Barbie Mitchell on 08-17-2024 Protein Ql (U) Trace [facility] Prevention Specialist Office Visit Reporton 08-17-2024 Prevention Specialist Office Visit Report [facility]'s [address], [address] [place] [address] OFFICE VISIT Date of Service: 08/17/24 MR#: [id number] Acct: [id number] Name: HANNAH HENDRICKS Rep #: [id number] : 1990 Provider: SHAWN wray Age/Sex: 34/F Location[place] [facility] [place] Status: Signed Intake Vital Signs 04/14/24 14:22 08/05/24 09:52 08/17/24 08:32 Height 5 ft 6 in 5 ft 6 in 5 ft 6 in Weight: 184 lb 8 oz BMI 29.7 BP 104/68 Intake Visit Reasons: 13wk ob Software Trainer Required: No Is patient in pain?: No [...] 4 mg PO Q6H #30 tabs 07/20/24 0509/06 Rx Last Menstrual Period: 05/23/24 Zika: Zika [...] current occupational status: employed current occupation: [employer] current occupational exposures/hazards: No pets and animals: [...] 3-4 times per week duration: 15-30 minutes/day agata/adventist: Rastafari seatbelt use: always do you feel safe at home: Yes 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 Date Name GA/Weeks Outcome Route Bth Weight Infant Gen Labor Lgth Anesthesia Del Locatn Provider FOB 08/11/20 Janie 39 live - full term 7lbs 8.5oz Female epidural [facility] Dr. Quang Samaniego 03/15/24 4 spontaneous Delivery [...] ???-???-???-???-???-? ??-???- (more content not included)... Normal [facility] Laboratory - Chemistry and C hemistry - challengeOrdered By: Barbie Mitchell on 08-05-2024 Glucose Ql (U) Negative [facility] - UrinalysisOrder ed By: Barbie Mitchell on 08-05-2024 Protein Ql (U) Negative [facility] Prevention Specialist Office Visit Reporton 08-05-2024 Prevention Specialist Office Visit Report [facility]'[address], [facility] [address] [place] [address] OFFICE VISIT Date of Service: 08/05/24 MR#: [id number] Acct: [id number] Name: HANNAH HENDRICKS Rep #: [id number] : 1990 Provider: SHAWN wray Age/Sex: 34/F Location[place] [facility] [place] Status: Signed Intake Vital Signs 07/20/24 13:59 08/05/24 09:52 Height 5 ft 6 in 5 ft 6 in Weight: 183 lb BMI 29.5 BP 126/78 H Intake Visit Reasons: Heart tone check Chief Complaint: Heart tone check Software Trainer Required: No Is patient in pain?: No [...] current occupational status: employed current occupation: [employer] current occupational exposures/hazards: No pets and animals: [...] 3-4 times per week duration: 15-30 minutes/day agata/adventist: Rastafari seatbelt use: always do you feel safe at home: Yes 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 Date Name GA/Weeks Outcome Route Bth Weight Gen Labor Lgth Anesthesia Del Locatn Provider FOB 08/11/20 Janie 39 live - full term 7lbs 8.5oz Female epidural [facility] Dr. Quang Samaniego 03/15/24 4 spontaneous Delivery [...] -???-???-???-???-???- ???-??? (more content not included)... Normal [facility] Absolute lymphocyte countOrd ered By: Maryann Bradfordthu on 07-31-2024 Lymphocytes Auto (Unsp spec) [#/Vol] 2.10 10*3/uL 0.83-4.51 [facility] Absolute neutrophil countOrd ered By: Maryann Bradfordthu on 07-31-2024 Neutrophils (Bld) [#/Vol] 3.9 10*3/uL 2.0-7.7 [facility] Automated lymphocyte count a s percentage of total leukocytesOrdered By: Maryann Bradfordthu on 07-31-2024 Lymphocytes/100 WBC Auto (Unsp spec) 29.6 % 19-41 [facility] Basophil percentageOrdered B y: Maryann Bradfordthu on 07-31-2024 Basophils/100 WBC (Bld) 0.4 % 0-1 [facility] CBC W/Diff, Automatedon 04- Absolute Lymph 2.10 X10 3/uL Normal 0.83-4.51 [facility] Comment on above: Performed By: #### L 509.4006, BTS, L3890.6006, L3890.6102, L900.0098, L509.8002, L3890.6301, L100.0100 #### [facility] [address] [place], [address] Absolute Neut 3.9 X10 3/uL Normal 2.0-7.7 [facility] Comment on above: Performed By: #### L 509.4006, BTS, L3890.6006, L3890.6102, L900.0098, L509.8002, L3890.6301, L100.0100 #### [facility] [address] [place], [address] Basophils/100 WBC (Bld) 0.4 % Normal 0-1 [facility] Comment on above: Performed By: #### L 509.4006, BTS, L3890.6006, L3890.6102, L900.0098, L509.8002, L3890.6301, L100.0100 #### [facility] [address] [place], [address] Eosinophils/100 WBC (Bld) 8.3 % High 0-5 [facility] Comment on above: Performed By: #### L 509.4006, BTS, L3890.6006, L3890.6102, L900.0098, L509.8002, L3890.6301, L100.0100 #### [facility] [address] [place], [address] Erythrocyte distribution width (RBC) [Ratio] 11.6 % Normal 11.6-14.6 [facility] Comment on above: Performed By: #### L 509.4006, BTS, L3890.6006, L3890.6102, L900.0098, L509.8002, L3890.6301, L100.0100 #### [facility] [address] [place], [address] Hematocrit (Bld) [Volume fraction] 37.1 % Normal 37-47 [facility] Comment on above: Performed By: #### L 509.4006, BTS, L3890.6006, L3890.6102, L900.0098, L509.8002, L3890.6301, L100.0100 #### [facility] [address] [place], [address] Hemoglobin (Bld) [Mass/Vol] 12.8 g/dL Normal 12.0-15.0 [facility] Comment on above: Performed By: #### L 509.4006, BTS, L3890.6006, L3890.6102, L900.0098, L509.8002, L3890.6301, L100.0100 #### [facility] [address] [place], [address] IG% 0.300 Normal 0.0-0.9 [facility] Comment on above: Result Comment: IG% - Immature Granulocytes (promyelocytes, myelocytes and metamyelocytes) > 1% indicates that a LEFT SHIFT is Present. Performed By: #### L 509.4006, BTS, L3890.6006, L3890.6102, L900.0098, L509.8002, L3890.6301, L100.0100 #### [facility] [address] [facility] [place], [address] Lymphocytes/100 WBC (Bld) 29.6 % Normal 19-41 [facility] Comment on above: Performed By: #### L 509.4006, BTS, L3890.6006, L3890.6102, L900.0098, L509.8002, L3890.6301, L100.0100 #### [facility] [address] [facility] [place], [address] MCH (RBC) [Entitic mass] 32.9 pg High 27.0-32.0 [facility] Comment on above: Performed By: #### L 509.4006, BTS, L3890.6006, L3890.6102, L900.0098, L509.8002, L3890.6301, L100.0100 #### [facility] [address] [place], [address] MCHC (RBC) [Mass/Vol] 34.5 g/dL Normal 32-36 [facility] Comment on above: Performed By: #### L 509.4006, BTS, L3890.6006, L3890.6102, L900.0098, L509.8002, L3890.6301, L100.0100 #### [facility] [address] [place], [address] MCV (RBC) [Entitic vol] 95.4 fL Normal 81-99 [facility] Comment on above: Performed By: #### L 509.4006, BTS, L3890.6006, L3890.6102, L900.0098, L509.8002, L3890.6301, L100.0100 #### [facility] [address] [place], [address] Monocytes/100 WBC (Bld) 6.2 % Normal 0-10 [facility] Comment on above: Performed By: #### L 509.4006, BTS, L3890.6006, L3890.6102, L900.0098, L509.8002, L3890.6301, L100.0100 #### [facility] [address] [place], [address] Neutrophils/100 WBC (Bld) 55.2 % Normal 47-70 [facility] Comment on above: Performed By: #### L 509.4006, BTS, L3890.6006, L3890.6102, L900.0098, L509.8002, L3890.6301, L100.0100 #### [facility] [address] [place], [address] Nucleated RBC (Bld) [#/Vol] 0 10*3/uL Normal 0-5 [facility] Comment on above: Performed By: #### L 509.4006, BTS, L3890.6006, L3890.6102, L900.0098, L509.8002, L3890.6301, L100.0100 #### [facility] [address] [place], [address] Platelet mean volume (Bld) [Entitic vol] 9.5 fL Normal 6.2-12.0 [facility] Comment on above: Performed By: #### L 509.4006, BTS, L3890.6006, L3890.6102, L900.0098, L509.8002, L3890.6301, L100.0100 #### [facility] [address] [place], [address] Platelets (Bld) [#/Vol] 277 10*3/uL Normal 150-450 [facility] Comment on above: Performed By: #### L 509.4006, BTS, L3890.6006, L3890.6102, L900.0098, L509.8002, L3890.6301, L100.0100 #### [facility] [address] [place], [address] RBC (Bld) [#/Vol] 3.89 10*6/uL Low 4.2-5.4 [facility] Comment on above: Performed By: #### L 509.4006, BTS, L3890.6006, L3890.6102, L900.0098, L509.8002, L3890.6301, L100.0100 #### [facility] [address] [place], [address] RDW SD 40.3 fl Normal 35.1-43.9 [facility] Comment on above: Performed By: #### L 509.4006, BTS, L3890.6006, L3890.6102, L900.0098, L509.8002, L3890.6301, L100.0100 #### [facility] [address] [place], [address] WBC (Bld) [#/Vol] 7.1 10*3/uL Normal 4.4-11.0 [facility] Comment on above: Performed By: #### L 509.4006, BTS, L3890.6006, L3890.6102, L900.0098, L509.8002, L3890.6301, L100.0100 #### [facility] [address] [place], [place], [address] (266) Eosinophil percentageOrdered By: Maryann Elin on 07-31-2024 Eosinophils/100 WBC (Bld) 8.3 % High 0-5 [facility] Erythrocyte distribution wid th ratioOrdered By: Maryann Elin on 07-31-2024 Erythrocyte distribution width (RBC) [Ratio] 11.6 % 11.6-14.6 [facility] Erythrocyte distribution wid th standard deviationOrdered By: Maryann Elin on 07-31-2024 Erythrocyte distribution width (RBC) [Ratio] 40.3 fl 35.1-43.9 [facility] HIVon 07-31-2024 HIV Non-Reactive Normal Nonreactive [facility] Comment on above: Result Comment: Non- Reactive Reactive Repeatedly reactive samples must be confirmed according to CDC recommended confirmatory algorithms. The subresults for either HIVAG or AHIV can be used as an aid in the selection of the confirmation algorithm for reactive samples. Send out specimens with Reactive results to [facility] for confirmation. Order the HIV antibody detection and differentiation: #[id number] Performed By: #### L 400.0001 #### [facility] [address] [place], [place], [address] Hematocrit Auto (Bld) [Volum e fraction]Ordered By: Maryann Worthington on 07-31-2024 Hematocrit (Bld) [Volume fraction] 37.1 % 37-47 [facility] Hemoglobin measurementOrdere d By: Maryannanna Worthington on 07-31-2024 Hemoglobin (Bld) [Mass/Vol] 12.8 g/dL 12.0-15.0 [facility] Hepatitis C Antibodyon 07-31 Hepatitis C Ab Non-Reactive Normal Nonreactive [facility] Comment on above: Result Comment: Reac tive: Presumptive evidence of antibodies to HCV. Follow CDC recommendations for supplemental testing. Non-Reactive: Antibodies to HCV were not detected; does not exclude the possibility of exposure to HCV Reactive Results are presumptive evidence of antibodies to HCV. Follow CDC recommendations for supplemental testing. Order confirmation testing: HCV Quant by PCR testing - HCVPCR #[id number] Non Reactive: < 0.8 Equivocal: >/= 0.8 to < 1.0 Reactive: >/= 1.0 The CDC requires that a reactive/equivocal HCV antibody result be sent out for confirmation. HCV Quant by PCR testing. Performed By: #### L 400.0001 #### [facility] [address] [facility] [place], [place], [address] Immature granulocytes/100 WB C Auto (Bld)Ordered By: Maryann Worthington on 07-31-2024 Immature granulocytes/100 WBC (Bld) 0.300 % 0.0-0.9 [facility] Comment on above: IG% - Immature Granu locytes (promyelocytes, myelocytes and metamyelocytes) > 1% indicates that a LEFT SHIFT is Present. L3890.6102on 07-31-2024 HEP B Surf Ag Non-Reactive Normal Nonreactive [facility] Comment on above: Result Comment: Reac tive: Presumptive evidence of HBV. Repeatedly reactive samples must be confirmed using a neutralization test ([employer] HBsAg Confirmatory Test) Non-Reactive: HBsAg not detected; does not exclude the possibility of exposure to HBV Performed By: #### L 400.0001 #### [facility] [address] [facility] [place], [address] L509.4006on 07-31-2024 Rubella IgG REAC Normal Nonreactive [facility] Comment on above: Result Comment: Anti body Result: Interpretation Non-Reactive: Non-Immune Reactive: Immune The following results were obtained with the [employer] Rubella IgG assay. Results from assays of other manufacturers cannot be used interchangeably. Performed By: #### L 509.4006, BTS, L3890.6006, L3890.6102, L900.0098, L509.8002, L3890.6301, L100.0100 #### [facility] [address], [address] Laboratory - Microbiology an d Antimicrobial susceptibilityOrdered By: Maryann Worthington on 07-31-2024 HBV surface Ag Ql (S) Non-Reactive Nonreactive [facility] Comment on above: Reactive: Presumptiv e evidence of HBV. Repeatedly reactive samples must be confirmed using a neutralization test ([employer] HBsAg Confirmatory Test)Non-Reactive: HBsAg not detected; does not exclude the possibility of exposure to HBV MCV (mean corpuscular volume ) determinationOrdered By: Maryann Worthington on 07-31-2024 MCV (RBC) [Entitic vol] 95.4 fL 81-[address] [facility] Mean corpuscular hemoglobin (MCH) determinationOrdered By: Maryann Worthington on 07-31-2024 MCH (RBC) [Entitic mass] 32.9 pg High 27.0-32.0 [facility] Mean corpuscular hemoglobin concentration (MCHC) determinationOrdered By: Maryann Worthington on 07-31-2024 MCHC (RBC) [Mass/Vol] 34.5 g/dL 32-36 [facility] Mean platelet volume determi nationOrdered By: Maryann Worthington on 07-31-2024 Platelet mean volume (Bld) [Entitic vol] 9.5 fL 6.2-12.0 [facility] Monocyte percentageOrdered B y: Maryann Worthington on 07-31-2024 Monocytes/100 WBC (Bld) 6.2 % 0-10 [facility] NATERAon 07-31-2024 NATURA SEE SCANNED REPORT Normal [facility] Comment on above: Performed By: #### L 509.4006, BTS, L3890.6006, L3890.6102, L900.0098, L509.8002, L3890.6301, L100.0100 #### [facility] [address] [place], [address] Neutrophil percentageOrdered By: Maryann Worthington on 07-31-2024 Neutrophils/100 WBC (Bld) 55.2 % 47-70 [facility] No Panel InformationOrdered By: Maryann Worthington on 07-31-2024 HIV (1&2) Antibody Non-Reactive Nonreactive [facility] Comment on above: Non-ReactiveReactive Repeatedly reactive samples must be confirmed according to CDC recommended confirmatory algorithms. The subresults for either HIVAG or AHIV can be used as an aid in the selection of the confirmation algorithm for reactive samples.Send out specimens with Reactive results to [facility] for confirmation.Order the HIV antibody detection and differentiation: #[id number] Nucleated red blood cell per centageOrdered By: Maryann Worthington on 07-31-2024 Nucleated RBC/100 WBC (Bld) [Ratio] 0 % 0-5 [facility] Platelet countOrdered By: Blas hinsonagnes Elin on 07-31-2024 Platelets (Bld) [#/Vol] 277 10*3/uL 150-450 [facility] RBC Auto (Bld) [#/Vol]Ordere d By: Maryann Worthington on 07-31-2024 RBC (Bld) [#/Vol] 3.89 10*6/uL Low 4.2-5.4 [facility] Syphilis Antibodieson 2024 Syphilis Abs Non-Reactive Normal Nonreactive [facility] Comment on above: Performed By: #### L 509.4006, BTS, L3890.6006, L3890.6102, L900.0098, L509.8002, L3890.6301, L100.0100 #### [facility] [address] [place], [place], [address] Type AND Screenon 07-31-2024 ABO and Rh group Nom (Bld) Blood group A Rh(D) positive Normal [facility] Comment on above: Order Comment: CLEAN CATCH Performed By: #### L 400.0001 #### [facility] [address] [facility] [place], [place], [address] White blood cell (WBC) count Ordered By: Maryann Worthington on 07-31-2024 WBC (Bld) [#/Vol] 7.1 10*3/uL 4.4-11.0 [facility] Chlamydia/GC YANDY aptimaon CHLAMY,NUC ACID Negative Normal Negative [facility] Comment on above: Performed By: #### L 501.0250, L100.0100, L509.8002, L3890.6006 #### [facility] [address] [place], [place], [address] GC BY NUC ACID Negative Normal Negative [facility] Comment on above: Result Comment: Perf ormed at: =G - [facility] [address] [id number] [employer] Milling Machine Operator: Radha Alfaro MD, Phone: [phone] Performed By: #### L 501.0250, L100.0100, L509.8002, L3890.6006 #### [facility] [address] [place], [place], [address] Urine Cultureon 07-23-2024 [facility] Presumptive C albicans Normandy Count <1000 Mixed Gram Positive Organisms Mixed Gram Positive Organisms MIXC Mixed contaminants. Submit a new specimen if indicated. Normal [facility] Comment on above: Performed By: #### L 501.0250, L100.0100, L509.8002, L3890.6006 #### [facility] [address] [place], [address] C. trachomatis rRNA YANDY+prob e Ql (Unsp spec)Ordered By: Maryann Worthington on 07-20-2024 Chlamydia DNA (YANDY) Negative Negative [facility] Chlamydia trachomatis rRNA d etection by probe and target amplification methodOrdered By: Maryann Worthington on 07-20-2024 C. trachomatis rRNA YANDY+probe Ql (Unsp spec) Negative Negative [facility] Neisseria gonorrhoeae nuclei c acid detection by amplified probe techniqueOrdered By: Maryann Worthington on 07-20-2024 N. gonorrhoeae DNA YANDY+probe Ql (Unsp spec) Negative Negative [facility] Comment on above: Performed at: =G - [facility] [address] [id number] Director: Radha Alfaro MD, Phone: [phone] Prevention Specialist Office Visit Reporton 07-20-2024 Prevention Specialist Office Visit Report [facility]'[address], [address] [place] [address] OFFICE VISIT Date of Service: 07/20/24 MR#: [id number] Acct: [id number] Name: HANNAH HENDRICKS Rep #: [id number] : 1990 Provider: Dr. 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 Date Name GA/Weeks Outcome Route Bth Weight Infant Gen Labor Lgth Anesthesia Del Locatn Provider FOB 08/11/20 Janie 39 live - full term 7lbs 8.5oz Female epidural [facility] Dr. Quang Samaniego 03/15/24 4 spontaneous Delivery [...] 117/79 -???-???-???-? (more content not included)... Normal [facility] Urine cultureOrdered By: Leah Worthington on 07-20-2024 Bacteria identified Cx Nom (U) Presumptive C albicans Abnormal [facility] Bacteria identified Cx Nom (U) Positive Abnormal [facility] Transvaginal w/Preg USon Transvaginal w/Preg [facility] [address] [place] [address] Transvaginal w/Preg MR#: [id number] Acct: [id number] Name: HANNAH HENDRICKS Rep #: [id number] : 1990 F 34 From: Hayde Yuan MD PCP: Dr. Thomas Salinas MD Status: [facility] CLI Study: Transvaginal w/Preg US Date of Exam: 07/02/24 Exam# [id number] Ordering Dr: Maryann Bajwa DO PROCEDURE: TRANSVAGINAL [...] 3. Additional description as above. Reading Location: [id number] CC: Dr. Maryann Bajwa DO; Dr. Thomas Salinas MD Management Professionals: Signed Normal [facility] HCG ( test) QlOrder ed By: Maryann Worthington on 06-27-2024 Human Chorionic Gonadotropin, Quant 5354 mIU/mL High <9 [facility] Comment on above: Gestational Age0.2-1 Week: 5-50 mIU/mL1-2 Weeks: 50-500 mIU/mL2-3 Weeks: 100-5000 mIU/mL3-4 Weeks: 500-10,000 mIU/mL4-5 Weeks:1000-50,000 mIU/mL5-6 Weeks: 10,000-100,000 mIU/mL6-8 Weeks: 15,000-200,000 mIU/mL2-3 Months:10,000-100,000 mIU/mL Serum human chorionic gonado tropin detection for pregnancyOrdered By: Maryann Worthington on 06-27-2024 HCG ( test) Ql 5354 mIU/mL High <9 [facility] Comment on above: Gestational Age0.2-1 Week: 5-50 mIU/mL1-2 Weeks: 50-500 mIU/mL2-3 Weeks: 100-5000 mIU/mL3-4 Weeks: 500-10,000 mIU/mL4-5 Weeks:1000-50,000 mIU/mL5-6 Weeks: 10,000-100,000 mIU/mL6-8 Weeks: 15,000-200,000 mIU/mL2-3 Months:10,000-100,000 mIU/mL hCG Titer Quant., Serumon HCG QUANT. 5354 mIU/mL High <9 non-preg [facility] Comment on above: Result Comment: Gest ational Age 0.2-1 Week: 5-50 mIU/mL 1-2 Weeks: 50-500 mIU/mL 2-3 Weeks: 100-5000 mIU/mL 3-4 Weeks: 500-10,000 mIU/mL 4-5 Weeks:1000-50,000 mIU/mL 5-6 Weeks: 10,000-100,000 mIU/mL 6-8 Weeks: 15,000-200,000 mIU/mL 2-3 Months:10,000-100,000 mIU/mL Performed By: #### L 400.0001 #### [facility] [address] [place], [place], [address] HCG ( test) QlOrder ed By: Maryann Worthington on 06-25-2024 Human Chorionic Gonadotropin, Quant 2419 mIU/mL High <9 [facility] Comment on above: Gestational Age0.2-1 Week: 5-50 mIU/mL1-2 Weeks: 50-500 mIU/mL2-3 Weeks: 100-5000 mIU/mL3-4 Weeks: 500-10,000 mIU/mL4-5 Weeks:1000-50,000 mIU/mL5-6 Weeks: 10,000-100,000 mIU/mL6-8 Weeks: 15,000-200,000 mIU/mL2-3 Months:10,000-100,000 mIU/mL Serum human chorionic gonado tropin detection for pregnancyOrdered By: Maryann Worthington on 06-25-2024 HCG ( test) Ql 2419 mIU/mL High <9 [facility] Comment on above: Gestational Age0.2-1 Week: 5-50 mIU/mL1-2 Weeks: 50-500 mIU/mL2-3 Weeks: 100-5000 mIU/mL3-4 Weeks: 500-10,000 mIU/mL4-5 Weeks:1000-50,000 mIU/mL5-6 Weeks: 10,000-100,000 mIU/mL6-8 Weeks: 15,000-200,000 mIU/mL2-3 Months:10,000-100,000 mIU/mL Transvaginal w/Preg USon Transvaginal w/Preg US [facility] [address] [place] [address] Transvaginal w/Preg US MR#: [id number] Acct: [id number] Name: HANNAH HENDRICKS Rep #: [id number] : 1990 F 34 From: Hayde Yuan MD PCP: Dr. Thomas Salinas MD Status: [facility] CLI Study: Transvaginal w/Preg US Date of Exam: 06/25/24 Exam# [id number] Ordering Dr: Maryann Bajwa DO PROCEDURE: TRANSVAGINAL [...] 3. Additional description as above. Reading Location: [id number] CC: Dr. Maryann Bajwa DO; Dr. Thomas Salinas MD Management Professionals: Signed Normal [facility] hCG Titer Quant., Serumon HCG QUANT. 2419 mIU/mL High <9 non-preg [facility] Comment on above: Result Comment: Gest ational Age 0.2-1 Week: 5-50 mIU/mL 1-2 Weeks: 50-500 mIU/mL 2-3 Weeks: 100-5000 mIU/mL 3-4 Weeks: 500-10,000 mIU/mL 4-5 Weeks:1000-50,000 mIU/mL 5-6 Weeks: 10,000-100,000 mIU/mL 6-8 Weeks: 15,000-200,000 mIU/mL 2-3 Months:10,000-100,000 mIU/mL Performed By: #### L 400.0001 #### [facility] [address] [place], [address] HCG ( test) QlOrder ed By: Maryann Worthington on 06-18-2024 Human Chorionic Gonadotropin, Quant 110 mIU/mL High <9 [facility] Comment on above: Gestational Age0.2-1 Week: 5-50 mIU/mL1-2 Weeks: 50-500 mIU/mL2-3 Weeks: 100-5000 mIU/mL3-4 Weeks: 500-10,000 mIU/mL4-5 Weeks:1000-50,000 mIU/mL5-6 Weeks: 10,000-100,000 mIU/mL6-8 Weeks: 15,000-200,000 mIU/mL2-3 Months:10,000-100,000 mIU/mL Serum human chorionic gonado tropin detection for pregnancyOrdered By: Maryann Worthington on 06-18-2024 HCG ( test) Ql 110 mIU/mL High <[address] [facility] Comment on above: Gestational Age0.2-1 Week: 5-50 mIU/mL1-2 Weeks: 50-500 mIU/mL2-3 Weeks: 100-5000 mIU/mL3-4 Weeks: 500-10,000 mIU/mL4-5 Weeks:1000-50,000 mIU/mL5-6 Weeks: 10,000-100,000 mIU/mL6-8 Weeks: 15,000-200,000 mIU/mL2-3 Months:10,000-100,000 mIU/mL hCG Titer Quant., Serumon HCG QUANT. 110 mIU/mL High <9 non-preg [facility] Comment on above: Result Comment: Gest ational Age 0.2-1 Week: 5-50 mIU/mL 1-2 Weeks: 50-500 mIU/mL 2-3 Weeks: 100-5000 mIU/mL 3-4 Weeks: 500-10,000 mIU/mL 4-5 Weeks:1000-50,000 mIU/mL 5-6 Weeks: 10,000-100,000 mIU/mL 6-8 Weeks: 15,000-200,000 mIU/mL 2-3 Months:10,000-100,000 mIU/mL Performed By: #### L 400.0001 #### [facility] [address] [place], [place], [address] HCG ( test) QlOrder ed By: Maryann Worthington on 06-16-2024 Human Chorionic Gonadotropin, Quant 37 mIU/mL High <9 [facility] Comment on above: Gestational Age0.2-1 Week: 5-50 mIU/mL1-2 Weeks: 50-500 mIU/mL2-3 Weeks: 100-5000 mIU/mL3-4 Weeks: 500-10,000 mIU/mL4-5 Weeks:1000-50,000 mIU/mL5-6 Weeks: 10,000-100,000 mIU/mL6-8 Weeks: 15,000-200,000 mIU/mL2-3 Months:10,000-100,000 mIU/mL Serum human chorionic gonado tropin detection for pregnancyOrdered By: Maryann Worthington on 06-16-2024 HCG ( test) Ql 37 mIU/mL High <[address] [facility] Comment on above: Gestational Age0.2-1 Week: 5-50 mIU/mL1-2 Weeks: 50-500 mIU/mL2-3 Weeks: 100-5000 mIU/mL3-4 Weeks: 500-10,000 mIU/mL4-5 Weeks:1000-50,000 mIU/mL5-6 Weeks: 10,000-100,000 mIU/mL6-8 Weeks: 15,000-200,000 mIU/mL2-3 Months:10,000-100,000 mIU/mL hCG Titer Quant., Serumon HCG QUANT. 37 mIU/mL High <9 non-preg [facility] Comment on above: Result Comment: Gest ational Age 0.2-1 Week: 5-50 mIU/mL 1-2 Weeks: 50-500 mIU/mL 2-3 Weeks: 100-5000 mIU/mL 3-4 Weeks: 500-10,000 mIU/mL 4-5 Weeks:1000-50,000 mIU/mL 5-6 Weeks: 10,000-100,000 mIU/mL 6-8 Weeks: 15,000-200,000 mIU/mL 2-3 Months:10,000-100,000 mIU/mL Performed By: #### L 400.0001 #### [facility] [address] [place], [address] HCG ( test) QlOrder ed By: Barbie Mitchell on 04-14-2024 Human Chorionic Gonadotropin, Quant < 1 mIU/mL <4 [facility] Comment on above: hCG levels with Gest ational AgeGestational Age hCG mIU/mL (IU/L)0.2 - 1 week 5 - 501-2 weeks 50 - 5002-3 weeks 100 - 17053-8 weeks 500 - 097048-5 weeks 1000 - 369762-9 weeks 02169 - 100,0006-8 weeks 73780 - 200,0002-3 months 28642 - 100,000 Prevention Specialist Office Visit Reporton 04-14-2024 Prevention Specialist Office Visit Report [facility] [address], [address] [place] [address] OFFICE VISIT Date of Service: 04/14/24 MR#: [id number] Acct: [id number] Name: HANNAH HENDRCIKS Rep #: [id number] : 1990 Provider: SHAWN wray Age/Sex: 34/F Location: [facility] [place] Status: Signed Intake Vital Signs 04/01/24 16:16 04/14/24 14:19 04/14/24 14:22 Height 5 ft 6 in 5 ft 6 in 5 ft 6 in Weight: 178 lb 8 oz BMI 28.8 BP 114/78 Intake Visit Reasons: Miscarriage F/U Chief Complaint: Miscarriage F/u Software Trainer Required: No Is patient in pain?: No [...] 1 current occupational status: employed current occupation: [employer] current occupational exposures/hazards: No pets and animals: [...] safe at home: Yes 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 Miscarriage F/U Details: HANNAH HENDRICKS is a [...] - full term 7lbs 8.5oz Female epidural [facility] Dr. [place] Delivery Date: 08/11/20 Last [...] do serial HCGs 04/14/24 1511 Date Barbie Kellerigner Signature: Date (if applicable (more content not included)... Normal [facility] hCG Titer Quant., Serumon HCG QUANT. < 1 Normal 1-3 [facility] Comment on above: Result Comment: hCG levels with Gestational Age Gestational Age hCG mIU/mL (IU/L) 0.2 - 1 week 5 - 50 1-2 weeks 50 - 500 2-3 weeks 100 - 5000 3-4 weeks 500 - 26994 4-5 weeks 1000 - 14943 5-6 weeks 39996 - 100,000 6-8 weeks 61259 - 200,000 2-3 months 19558 - 100,000 Performed By: #### L 501.0250, L100.0100, L509.8002, L3890.6006 #### [facility] [address] [place], [address] HCG ( test) QlOrder ed By: Isabel Marino on 04-06-2024 Human Chorionic Gonadotropin, Quant 6 mIU/mL High <4 [facility] hCG Titer Quant., Serumon HCG QUANT. 6 mIU/mL High 1-3 [facility] Comment on above: Performed By: #### L 400.0001 #### [facility] [address] [place], [address] HCG ( test) QlOrder ed By: Isabel Marino on 04-03-2024 Human Chorionic Gonadotropin, Quant 8 mIU/mL High <4 [facility] hCG Titer Quant., Serumon HCG QUANT. 8 mIU/mL High 1-3 [facility] Comment on above: Performed By: #### L 501.0250, L100.0100, L509.8002, L3890.6006 #### [facility] [address] [facility] [place], [address] Absolute neutrophil countOrd ered By: Royce Chapin on 04-01-2024 Neutrophils (Bld) [#/Vol] 2.4 10*3/uL 2.0-7.7 [facility] Basic Metabolic Profile (BMP )on 04-01-2024 BUN/CRE 17.1 RATIO Normal 02-01 [facility] Comment on above: Performed By: #### L 501.0250, L100.0100, L509.8002, L3890.6006 #### [facility] [address] [place], [address] CA,Total 9.2 mg/dL Normal 8.5-10.1 [facility] Comment on above: Performed By: #### L 501.0250, L100.0100, L509.8002, L3890.6006 #### [facility] [address] [place], [address] Chloride [Moles/Vol] 108 mmol/L High 98-107 [facility] Comment on above: Performed By: #### L 501.0250, L100.0100, L509.8002, L3890.6006 #### [facility] [address] [place], [address] CO2 [Moles/Vol] 29.0 mmol/L Normal 21.0-32.0 [facility] Comment on above: Performed By: #### L 501.0250, L100.0100, L509.8002, L3890.6006 #### [facility] [address] [place], [address] Creatinine [Mass/Vol] 0.88 mg/dL Normal 0.55-1.02 [facility] Comment on above: Result Comment: The validity of the calculated GFR GFRAA in patients over 70 years has not been determined. Clinical correlation is essential. Performed By: #### L 501.0250, L100.0100, L509.8002, L3890.6006 #### [facility] [address] [place], [address] ECRCL 99.21 ml/min Normal [facility] Comment on above: Performed By: #### L 501.0250, L100.0100, L509.8002, L3890.6006 #### [facility] [address] [place], [address] EST GFR - AA 96 mL/min Normal >60 [facility] Comment on above: Result Comment: Afri can Moldovan GFR Calc Performed By: #### L 501.0250, L100.0100, L509.8002, L3890.6006 #### [facility] [address] [place], [address] GAP 2 Low 5-15 [facility] Comment on above: Performed By: #### L 501.0250, L100.0100, L509.8002, L3890.6006 #### [facility] [address] [place], [address] GFR/1.73 sq M.predicted among non-blacks MDRD (S/P/Bld) [Vol rate/Area] 79 mL/min/{1.73_m2} Normal >60 [facility] Comment on above: Result Comment: Non- GFR Calc Performed By: #### L 501.0250, L100.0100, L509.8002, L3890.6006 #### [facility] [address] [place], [address] Glucose [Mass/Vol] 91 mg/dL Normal 74-106 [facility] Comment on above: Performed By: #### L 501.0250, L100.0100, L509.8002, L3890.6006 #### [facility] [address] [place], [address] Potassium [Moles/Vol] 3.6 mmol/L Normal 3.5-5.1 [facility] Comment on above: Performed By: #### L 501.0250, L100.0100, L509.8002, L3890.6006 #### [facility] [address] [place], [address] Sodium [Moles/Vol] 139 mmol/L Normal 136-145 [facility] Comment on above: Performed By: #### L 501.0250, L100.0100, L509.8002, L3890.6006 #### [facility] [address] [place], [address] Urea nitrogen [Mass/Vol] 15 mg/dL Normal - [facility] Comment on above: Performed By: #### L 501.0250, L100.0100, L509.8002, L3890.6006 #### [facility] [address] [place], [address] Basophil percentageOrdered B y: Royce Chapin on 04-01-2024 Basophils/100 WBC (Bld) 1.2 % High 0-1 [facility] Bilirubin Test strip Ql (U)O rdered By: Royce Chapin on 04-01-2024 Bilirubin Ql (U) Negative Negative [facility] Blood urea nitrogen (BUN)/cr eatinine ratioOrdered By: Royce Chapin on 04-01-2024 Urea nitrogen/Creatinine [Mass ratio] 17.1 mg/mg 10- [facility] CBC W/Diff, Automatedon 03-15 Absolute Lymph 1.45 X10 3/uL Normal 0.83-4.51 [facility] Comment on above: Performed By: #### L 501.0250, L100.0100, L509.8002, L3890.6006 #### [facility] [address] [place], [address] Absolute Neut 2.4 X10 3/uL Normal 2.0-7.7 [facility] Comment on above: Performed By: #### L 501.0250, L100.0100, L509.8002, L3890.6006 #### [facility] [address] [place], [address] Basophils/100 WBC (Bld) 1.2 % High 0-1 [facility] Comment on above: Performed By: #### L 501.0250, L100.0100, L509.8002, L3890.6006 #### [facility] [address] [place], [address] Eosinophils/100 WBC (Bld) 8.1 % High 0-5 [facility] Comment on above: Performed By: #### L 501.0250, L100.0100, L509.8002, L3890.6006 #### [facility] [address] [place], [address] Erythrocyte distribution width (RBC) [Ratio] 11.4 % Low 11.6-14.6 [facility] Comment on above: Performed By: #### L 501.0250, L100.0100, L509.8002, L3890.6006 #### [facility] [address] [place], [address] Hematocrit (Bld) [Volume fraction] 40.6 % Normal 37-47 [facility] Comment on above: Performed By: #### L 501.0250, L100.0100, L509.8002, L3890.6006 #### [facility] [address] [place], [address] Hemoglobin (Bld) [Mass/Vol] 13.9 g/dL Normal 12.0-15.0 [facility] Comment on above: Performed By: #### L 501.0250, L100.0100, L509.8002, L3890.6006 #### [facility] [address] [place], [address] IG% 0.200 Normal 0.0-0.9 [facility] Comment on above: Result Comment: IG% - Immature Granulocytes (promyelocytes, myelocytes and metamyelocytes) > 1% indicates that a LEFT SHIFT is Present. Performed By: #### L 501.0250, L100.0100, L509.8002, L3890.6006 #### [facility] [address] [place], [address] Lymphocytes/100 WBC (Bld) 28.7 % Normal 19-41 [facility] Comment on above: Performed By: #### L 501.0250, L100.0100, L509.8002, L3890.6006 #### [facility] [address] [place], [address] MCH (RBC) [Entitic mass] 33.6 pg High 27.0-32.0 [facility] Comment on above: Performed By: #### L 501.0250, L100.0100, L509.8002, L3890.6006 #### [facility] [address] [place], [address] MCHC (RBC) [Mass/Vol] 34.2 g/dL Normal 32-36 [facility] Comment on above: Performed By: #### L 501.0250, L100.0100, L509.8002, L3890.6006 #### [facility] [address] [place], [address] MCV (RBC) [Entitic vol] 98.1 fL Normal 81-99 [facility] Comment on above: Performed By: #### L 501.0250, L100.0100, L509.8002, L3890.6006 #### [facility] [address] [place], [address] Monocytes/100 WBC (Bld) 14.7 % High 0-10 [facility] Comment on above: Performed By: #### L 501.0250, L100.0100, L509.8002, L3890.6006 #### [facility] [address] [place], [address] Neutrophils/100 WBC (Bld) 47.1 % Normal 47-70 [facility] Comment on above: Performed By: #### L 501.0250, L100.0100, L509.8002, L3890.6006 #### [facility] [address] [place], [address] Nucleated RBC (Bld) [#/Vol] 0 10*3/uL Normal 0-5 [facility] Comment on above: Performed By: #### L 501.0250, L100.0100, L509.8002, L3890.6006 #### [facility] [address] [place], [address] Platelet mean volume (Bld) [Entitic vol] 9.1 fL Normal 6.2-12.0 [facility] Comment on above: Performed By: #### L 501.0250, L100.0100, L509.8002, L3890.6006 #### [facility] [address] [place], [address] Platelets (Bld) [#/Vol] 306 10*3/uL Normal 150-450 [facility] Comment on above: Performed By: #### L 501.0250, L100.0100, L509.8002, L3890.6006 #### [facility] [address] [place], [address] RBC (Bld) [#/Vol] 4.14 10*6/uL Low 4.2-5.4 [facility] Comment on above: Performed By: #### L 501.0250, L100.0100, L509.8002, L3890.6006 #### [facility] [address] [place], [address] RDW SD 41.4 fl Normal 35.1-43.9 [facility] Comment on above: Performed By: #### L 501.0250, L100.0100, L509.8002, L3890.6006 #### [facility] [address] [place], [address] WBC (Bld) [#/Vol] 5.1 10*3/uL Normal 4.4-11.0 [facility] Comment on above: Performed By: #### L 501.0250, L100.0100, L509.8002, L3890.6006 #### [facility] [address] [place], [address] Carbon dioxide measurementOr dered By: Royce Chapin on 04-01-2024 CO2 [Moles/Vol] 29.0 mmol/L 21.0-32.0 [facility] Chloride measurementOrdered By: Royce Chapin on 04-01-2024 Chloride [Moles/Vol] 108 mmol/L High 98-107 [facility] Emergency Department Summary on 04-01-2024 Emergency Department Summary [facility] Medical Records Department [address] [facility] [place] [address] Emergency Department Summary 04/01/24 MR#: [id number] Acct: [id number] Name: HANNAH HENDRICKS Rep #: [id number] : 1990 34 From: Royce Chapin DO [...] fevers or chills. Patient denies any dysuria. 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 Normal [facility] Eosinophil percentageOrdered By: Royce Chapin on 04-01-2024 Eosinophils/100 WBC (Bld) 8.1 % High 0-5 [facility] Epithelial cells.squamous LM Ql (Urine sed)Ordered By: Royce Chapin on 04-01-2024 Epithelial cells.squamous LM.HPF (Urine sed) [#/Area] 0 /[HPF] 5-10 [facility] Erythrocyte distribution wid th ratioOrdered By: Royce Chapin on 04-01-2024 Erythrocyte distribution width (RBC) [Ratio] 11.4 % Low 11.6-14.6 [facility] Erythrocyte distribution wid th standard deviationOrdered By: Royce Chapin on 04-01-2024 Erythrocyte distribution width (RBC) [Entitic vol] 41.4 fL 35.1-43.9 [facility] Estimated glomerular filtrat ion rate (GFR) AmericanOrdered By: Royce Chapin on 04-01-2024 Estimated GFR (MDRD) Amer 96 mL/min >60 [facility] Comment on above: GFR Calc Estimation of creatinine brad aranceOrdered By: Royce Chapin on 04-01-2024 Estimated Creatinine Clearance Calc 99.21 ml/min [facility] Glomerular filtration rate ( GFR) estimationOrdered By: Royce Chapin on 04-01-2024 Estimated GFR (MDRD) Non-Af Amer 79 mL/min >60 [facility] Comment on above: Non- GFR Calc Glucose Ql (U)Ordered By: Niko Chapin on 04-01-2024 Urine Glucose (UA) Normal mg/dl Normal [facility] Glucose measurementOrdered B y: Royce Chapin on 04-01-2024 Glucose [Mass/Vol] 91 mg/dL 74-106 [facility] HCG ( test) QlOrder ed By: Royce Chapin on 04-01-2024 Human Chorionic Gonadotropin, Quant 9 mIU/mL High <4 [facility] Hematocrit Auto (Bld) [Volum e fraction]Ordered By: Royce Chapin on 04-01-2024 Hematocrit (Bld) [Volume fraction] 40.6 % 37-47 [facility] Hemoglobin measurementOrdere d By: Royce Chapin on 04-01-2024 Hemoglobin (Bld) [Mass/Vol] 13.9 g/dL 12.0-15.0 [facility] Immature granulocytes/100 WB C Auto (Bld)Ordered By: Royce Chapin on 04-01-2024 Immature granulocytes/100 WBC (Bld) 0.200 % 0.0-0.9 [facility] Comment on above: IG% - Immature Granu locytes (promyelocytes, myelocytes and metamyelocytes) > 1% indicates that a LEFT SHIFT is Present. Ketones Test strip Ql (U)Ord ered By: Royce Chapin on 04-01-2024 Ketones Ql (U) Negative Negative [facility] Lymphocytes Auto (Unsp spec) [#/Vol]Ordered By: Royce Chapin on 04-01-2024 Lymphocytes (Bld) [#/Vol] 1.45 10*3/uL 0.83-4.51 [facility] Lymphocytes/100 WBC Auto (Un sp spec)Ordered By: Royce Chapin on 04-01-2024 Lymphocytes/100 WBC (Bld) 28.7 % 19-41 [facility] MCV (mean corpuscular volume ) determinationOrdered By: Royce Chapin on 04-01-2024 MCV (RBC) [Entitic vol] 98.1 fL 81-99 [facility] Mean corpuscular hemoglobin (MCH) determinationOrdered By: Royce Chapin on 04-01-2024 MCH (RBC) [Entitic mass] 33.6 pg High 27.0-32.0 [facility] Mean corpuscular hemoglobin concentration (MCHC) determinationOrdered By: Royce Chapin on 04-01-2024 MCHC (RBC) [Mass/Vol] 34.2 g/dL 32-36 [facility] Mean platelet volume determi nationOrdered By: Royce Chapin on 04-01-2024 Platelet mean volume (Bld) [Entitic vol] 9.1 fL 6.2-12.0 [facility] Microscopic analysis of urin e for red blood cells (RBC)Ordered By: Royce Chapin on 04-01-2024 Urine RBC 10-25 SEEN /hpf 0-5 [facility] Monocyte percentageOrdered B y: Royce Chapin on 04-01-2024 Monocytes/100 WBC (Bld) 14.7 % High 0-10 [facility] Mucus LM Ql (Urine sed)Order ed By: Royce Chapin on 04-01-2024 Mucus Ql (Urine sed) 1+ /hpf [facility] Neutrophil percentageOrdered By: Royce Chapin on 04-01-2024 Neutrophils/100 WBC (Bld) 47.1 % 47-70 [facility] Nitrite Test strip Ql (U)Ord ered By: Royce Chapin on 04-01-2024 Nitrite Ql (U) Negative Negative [facility] Nucleated red blood cell per centageOrdered By: Royce Chapin on 04-01-2024 Nucleated RBC/100 WBC (Bld) [Ratio] 0 % 0-5 [facility] Platelet countOrdered By: Niko Chapin on 04-01-2024 Platelets (Bld) [#/Vol] 306 10*3/uL 150-450 [facility] Potassium measurementOrdered By: Royce Chapin on 04-01-2024 Potassium [Moles/Vol] 3.6 mmol/L 3.5-5.1 [facility] Protein Test strip Ql (U)Ord ered By: Royce Chapin on 04-01-2024 Protein Ql (U) 30 mg/dl High Negative [facility] RBC Auto (Bld) [#/Vol]Ordere d By: Royce Chapin on 04-01-2024 RBC (Bld) [#/Vol] 4.14 10*6/uL Low 4.2-5.4 [facility] Serum anion gap measurementO rdered By: Royce Chapin on 04-01-2024 Anion gap [Moles/Vol] 2 mmol/L Low 5-15 [facility] Serum or plasma calcium tiffanie urement (mass/volume)Ordered By: Royce Chapin on 04-01-2024 Calcium [Mass/Vol] 9.2 mg/dL 8.5-10.1 [facility] Serum or plasma creatinine m easurement (mass/volume)Ordered By: Royce Chapin on 04-01-2024 Creatinine [Mass/Vol] 0.88 mg/dL 0.55-1.02 [facility] Comment on above: The validity of the calculated GFR & GFRAA in patients over 70 years has not been determined. Clinical correlation is essential. Serum or plasma urea nitroge n measurement (mass/volume)Ordered By: Royce Chapin on 04-01-2024 Urea nitrogen [Mass/Vol] 15 mg/dL - [facility] Sodium levelOrdered By: Royce Chapin on 04-01-2024 Sodium [Moles/Vol] 139 mmol/L 136-145 [facility] Transvaginal w/Preg USon Transvaginal w/Preg US [facility] [address] [place] [address] Transvaginal w/Preg US MR#: [id number] Acct: [id number] Name: HANNAH HENDRICKS Rep #: [id number] : 1990 F 34 From: Andi Bliss MD PCP: Dr. Thomas Salinas MD Status: REG ER Study: Transvaginal w/Preg US Date of Exam: 04/01/24 Exam# [id number] Ordering Dr: Royce Chapin DO [id number] STUDY: FIRST TRIMESTER OBSTETRICAL ULTRASOUND REASON FOR [...] 19:06 EST Reading Location ID and State: [address] [place] [address] Tel , Service support , CC: Dr. Royce Chapin DO; Dr. Thomas Salinas MD Management Professionals: Signed Normal [facility] Urinalysis, Completeon 04-01 BACTERIA 1+ /hpf Normal None Seen [facility] Comment on above: Order Comment: CLEAN CATCH Performed By: #### L 400.0001 #### [facility] [address] [place], [address] EPI,SQUAMOUS 0-5 SEEN Normal 5-10 [facility] Comment on above: Order Comment: CLEAN CATCH Performed By: #### L 400.0001 #### [facility] [address] [place], [place], [address] Mucus Ql (Urine sed) 1+ /hpf Normal [facility] Comment on above: Order Comment: CLEAN CATCH Performed By: #### L 400.0001 #### [facility] [address] [facility] [address] RBC 10-25 SEEN Normal 0-5 [facility] Comment on above: Order Comment: CLEAN CATCH Performed By: #### L 400.0001 #### [facility] [address] [place], [address] WBC 5-10 SEEN Normal 0-5 [facility] Comment on above: Order Comment: CLEAN CATCH Performed By: #### L 400.0001 #### [facility] [address] [place], [place], [address] Urine blood detectionOrdered By: Royce Chapin on 04-01-2024 Urine Occult Blood 250 /ul High Negative [facility] Urine clarityOrdered By: Lauren Chapin on 04-01-2024 Clarity (U) Sl. Cloudy Clear [facility] Urine color determinationOrd ered By: Royce Chapin on 04-01-2024 Color (U) Yellow Yellow [facility] Urine leukocyte esterase det ection by dipstickOrdered By: Royce Chapin on 04-01-2024 Leukocyte esterase Test strip Ql (U) 25 /ul High Negative [facility] Urine pHOrdered By: Royce adam on 04-01-2024 pH (U) 7.0 [pH] 5.0 - 8.0 [facility] Urine sediment bacteria coun t by microscopy (number/high power field)Ordered By: Royce Chapin on 04-01-2024 Bacteria LM.HPF (Urine sed) [#/Area] 1 /[HPF] None Seen [facility] Urine specific gravity measu rementOrdered By: Royce Chapin on 04-01-2024 Specific gravity (U) [Rel density] 1.015 1.002-1.030 [facility] Urobilinogen Ql (U)Ordered B y: Royce Chapin on 04-01-2024 Urine Urobilinogen Normal mg/dl Normal [facility] White blood cell (WBC) count Ordered By: Royce Chapin on 04-01-2024 WBC (Bld) [#/Vol] 5.1 10*3/uL 4.4-11.0 [facility] White blood cell countOrdere d By: Royce Chapin on 04-01-2024 Urine WBC 5-10 SEEN /hpf 0-5 [facility] hCG Titer Quant., Serumon HCG QUANT. 9 mIU/mL High 1-3 [facility] Comment on above: Performed By: #### L 501.0250, L100.0100, L509.8002, L3890.6006 #### [facility] [address] [place], [address] C diff Tox gens Stl Ql YANDY+p robeon 07-29-2023 C. difficile toxin genes YANDY+probe Ql (Stl) Negative Normal Negative for C. difficile toxin by PCR [facility] Comment on above: Order Comment: Speci men Type: STOOL SPECIMEN Ordering Facility: [facility] Address: [address] [place] [address] Performed By: #### 5 4067-4 #### [facility] [place] [id number] [address] [place] [address] [place] Gastrointestinal pathogens i dentified YANDY+probe Nom (Stl)on 07-29-2023 Campylobacter sp DNA YANDY+probe Nom (Unsp spec) Not detected Normal Not Detected [facility] Comment on above: Order Comment: Speci men Type: STOOL SPECIMEN Ordering Facility: [facility] Address: [address] [place] [address] Performed By: #### 7 9390-1 #### [facility] CLIA [id number] [address] [place] [address] [place] Salmonella sp DNA YANDY+probe Ql (Unsp spec) Not detected Normal Not Detected [facility] Comment on above: Order Comment: Speci men Type: STOOL SPECIMEN Ordering Facility: [facility] Address: [address] [place] [address] Performed By: #### 7 9390-1 #### [facility] CLIA [id number] [address] [place] [address] OF [place] Shiga toxin stx gene YANDY+probe Nom (Unsp spec) Not detected Normal Not Detected [facility] Comment on above: Order Comment: Speci men Type: STOOL SPECIMEN Ordering Facility: [facility] Address: [address] [place] [address] Performed By: #### 7 9390-1 #### [facility] CLIA [id number] [address] [place] [address] OF [place] Shigella sp DNA YANDY+probe Ql (Unsp spec) Not detected Normal Not Detected [facility] Comment on above: Order Comment: Speci men Type: STOOL SPECIMEN Ordering Facility: [facility] Address: [address] [place] [address] Performed By: #### 7 9390-1 #### [facility] CLIA [id number] [address] [place] [address] [place] O+P Spec Microon 07-29-2023 Ova and parasites identified LM Nom (Unsp spec) OVA AND PARASITE EXAM: No Parasites Seen Normal [facility] Comment on above: Performed By: #### 6 73-4 #### [facility] CLIA [id number] [address] [place] [address] [place] CNOVon 07-27-2023 CNOV Office Visit ([facility] ) ELADIOHANNAH ([id number]) 1990 F Date Time Provider Department 07/27/23 10:50 AM DIANA TREJO [facility] During your visit today, we recorded the following information about you: Temperature Pulse Respiration Blood pressure 97.7 degrees 98/minute 18/minute 117/69 Weight 73 kg Diana Trejo APRN.DIRECTOR OF SLEEP 07/27/2023 12:13 PM Addendum Assessment and Plan: [...] Diana Trejo APRN.MANDEEP 07/27/2023 12:13 PM Signed [facility] Express Care Visit Patient Name: Hannah Hendricks Primary Care Physician: Thomas Salinas MD Service Date: 07/27/2023 SUBJECTIVE: Hannah is an pleasant otherwise well 33 year old female who is here today accompanied by her Mom for evaluation of symptom(s)/complaint( s) as below. Presenting with concern of persistent diarrhea since 07/24/2023. Traveled for work recently to [place]. Had salmon Saturday evening upon arrival to [...] Take 1 (more content not included)... Normal [facility] ALLIED HEALTHon 05-16-2023 ALLIED HEALTH HNO ID: [id number] Author: AMANDA AMARAL CT Service: Radiology Author [...] PATIENT PRESENTS WITH AN IMPLANTABLE OR ATTACHED MACHINE MARKER: No RADIOLOGY DEPARTMENT: CT; Exam(s) Completed: Brain PERIPHERAL IV DATA: Not applicable SIGNED BY: SIMON Quinn May 16, 2023 4:33 PM Normal [facility] CBC W Auto Differential pane l (Bld)on 05-16-2023 Basophils (Bld) [#/Vol] 0.04 10*3/uL Normal <0.11 [facility] Comment on above: Order Comment: Speci men Type: BLOOD SPECIMENOrdering Facility: [facility] Address: [address] [place] [address] [place] [address] Performed By: #### 5 7021-8 ####[facility] LABORATORYCLIA [id number] [place] [address] [place] Basophils/100 WBC (Bld) 0.6 % Normal [facility] Comment on above: Order Comment: Speci men Type: BLOOD SPECIMENOrdering Facility: [facility] Address: [address] [place] [address] Performed By: #### 5 7021-8 ####[facility] LABORATORYCLIA [id number] [place] [address] [place] Differential cell count method Nom (Bld) Auto Normal [facility] Comment on above: Order Comment: Speci men Type: BLOOD SPECIMENOrdering Facility: [facility] Address: [address] [place] [address] Performed By: #### 5 7021-8 ####[facility] LABORATORYCLIA [id number] [place] [address] [place] Eosinophils (Bld) [#/Vol] 0.61 10*3/uL High <0.46 [facility] Comment on above: Order Comment: Speci men Type: BLOOD SPECIMENOrdering Facility: [facility] Address: [address] [place] [address] Performed By: #### 5 7021-8 ####[facility] LABORATORYCLIA [id number] [place] [address] [place] Eosinophils/100 WBC (Bld) 8.4 % Normal [facility] Comment on above: Order Comment: Speci men Type: BLOOD SPECIMENOrdering Facility: [facility] Address: [address] [place] [address] Performed By: #### 5 7021-8 ####[facility] LABORATORYCLIA [id number] [address] [place] Erythrocyte distribution width (RBC) [Ratio] 11.6 % Normal 11.5-15.0 [facility] Comment on above: Order Comment: Speci men Type: BLOOD SPECIMENOrdering Facility: [facility] Address: [address] [place] [address] Performed By: #### 5 7021-8 ####[facility] LABORATORYCLIA [id number] [address] [place] Hematocrit (Bld) [Volume fraction] 37.8 % Normal 36.0-46.0 [facility] Comment on above: Order Comment: Speci men Type: BLOOD SPECIMENOrdering Facility: [facility] Address: [address] [place] [address] Performed By: #### 5 7021-8 ####[facility] LABORATORYCLIA [id number] [place] [address] [place] Hemoglobin (Bld) [Mass/Vol] 12.9 g/dL Normal 11.5-15.5 [facility] Comment on above: Order Comment: Speci men Type: BLOOD SPECIMENOrdering Facility: [facility] Address: [address] [place] [address] Performed By: #### 5 7021-8 ####[facility] LABORATORYCLIA [id number] [place] [address] [place] Immature granulocytes (Bld) [#/Vol] 10*3/uL Normal <0.10 [facility] Comment on above: Order Comment: Speci men Type: BLOOD SPECIMENOrdering Facility: [facility] Address: [address] [place] [address] Performed By: #### 5 7021-8 ####[facility] LABORATORYCLIA [id number] [place] [address] [place] Immature granulocytes/100 WBC (Bld) 0.1 % Normal [facility] Comment on above: Order Comment: Speci men Type: BLOOD SPECIMENOrdering Facility: [facility] Address: [address] [place] [address] Performed By: #### 5 7021-8 ####[facility] LABORATORYCLIA [id number] [place] [address] [place] Lymphocytes (Bld) [#/Vol] 2.34 10*3/uL Normal 1.00-4.00 [facility] Comment on above: Order Comment: Speci men Type: BLOOD SPECIMENOrdering Facility: [facility] Address: [address] [place] [address] Performed By: #### 5 7021-8 ####[facility] LABORATORYCLIA [id number] [place] [address] [place] Lymphocytes/100 WBC (Bld) 32.3 % Normal [facility] Comment on above: Order Comment: Speci men Type: BLOOD SPECIMENOrdering Facility: [facility] Address: [address] [place] [address] Performed By: #### 5 7021-8 ####[facility] LABORATORYCLIA [id number] [address] MCH (RBC) [Entitic mass] 33.1 pg Normal 26.0-34.0 [facility] Comment on above: Order Comment: Speci men Type: BLOOD SPECIMENOrdering Facility: [facility] Address: [address] [place] [address] Performed By: #### 5 7021-8 ####[facility] LABORATORYCLIA [id number] [address] STATES [facility] MCHC (RBC) [Mass/Vol] 34.1 g/dL Normal 30.5-36.0 [facility] Comment on above: Order Comment: Speci men Type: BLOOD SPECIMENOrdering Facility: [facility] Address: [address] [place] [address] Performed By: #### 5 7021-8 ####[facility] LABORATORYCLIA [id number] [address] MCV (RBC) [Entitic vol] 96.9 fL Normal 80.0-100.0 [facility] Comment on above: Order Comment: Speci men Type: BLOOD SPECIMENOrdering Facility: [facility] Address: [address] [place] [address] Performed By: #### 5 7021-8 ####[facility] LABORATORYCLIA [id number] [address] Monocytes (Bld) [#/Vol] 0.97 10*3/uL High <0.87 [facility] Comment on above: Order Comment: Speci men Type: BLOOD SPECIMENOrdering Facility: [facility] Address: [address] [place] [address] Performed By: #### 5 7021-8 ####[facility] LABORATORYCLIA [id number] [address] Monocytes/100 WBC (Bld) 13.4 % Normal [facility] Comment on above: Order Comment: Speci men Type: BLOOD SPECIMENOrdering Facility: [facility] Address: [address] [place] [address] Performed By: #### 5 7021-8 ####[facility] LABORATORYCLIA [id number] [place] [address] [place] Neutrophils (Bld) [#/Vol] 3.27 10*3/uL Normal 1.45-7.50 [facility] Comment on above: Order Comment: Speci men Type: BLOOD SPECIMENOrdering Facility: [facility] Address: [address] [place] [address] Performed By: #### 5 7021-8 ####[facility] LABORATORYCLIA [id number] [address] [place] Neutrophils/100 WBC (Bld) 45.2 % Normal [facility] Comment on above: Order Comment: Speci men Type: BLOOD SPECIMENOrdering Facility: [facility] Address: [address] [place] [address] Performed By: #### 5 7021-8 ####[facility] LABORATORYCLIA [id number] [place] [address] [place] Nucleated RBC (Bld) [#/Vol] 10*3/uL Normal <0.01 [facility] Comment on above: Order Comment: Speci men Type: BLOOD SPECIMENOrdering Facility: [facility] Address: [address] [place] [address] Performed By: #### 5 7021-8 ####[facility] LABORATORYCLIA [id number] [address] OF [place] Nucleated RBC/100 WBC (Bld) [Ratio] 0.0 /100 WBC Normal [facility] Comment on above: Order Comment: Speci men Type: BLOOD SPECIMENOrdering Facility: [facility] Address: [address] [place] [address] Performed By: #### 5 7021-8 ####[facility] LABORATORYCLIA [id number] [place] [address] [place] Platelet mean volume (Bld) [Entitic vol] 9.2 fL Normal 9.0-12.7 [facility] Comment on above: Order Comment: Speci men Type: BLOOD SPECIMENOrdering Facility: [facility] Address: [address] [place] [address] Performed By: #### 5 7021-8 ####[facility] LABORATORYCLIA [id number] [address] OF [place] Platelets (Bld) [#/Vol] 298 10*3/uL Normal 150-400 [facility] Comment on above: Order Comment: Speci men Type: BLOOD SPECIMENOrdering Facility: [facility] Address: [address] [place] [address] Performed By: #### 5 7021-8 ####[facility] LABORATORYCLIA [id number] [place] [address] [place] RBC (Bld) [#/Vol] 3.90 10*6/uL Normal 3.90-5.20 [facility] Comment on above: Order Comment: Speci men Type: BLOOD SPECIMENOrdering Facility: [facility] Address: [address] [place] [address] Performed By: #### 5 7021-8 ####[facility] LABORATORYCLIA [id number] [place] [address] [place] WBC (Bld) [#/Vol] 7.24 10*3/uL Normal 3.70-11.00 [facility] Comment on above: Order Comment: Speci men Type: BLOOD SPECIMENOrdering Facility: [facility] Address: [address] [place] [address] Performed By: #### 5 7021-8 ####[facility] LABORATORYCLIA [id number] [address] [place] [address] BRAIN WO IVCONon 05-16-[address] BRAIN WO IVCON * * *Final Report* * * DATE OF EXAM: May 16 2023 4:35PM [facility] [place]CON / [...] base and imaged soft tissues are unremarkable. Forester Silviculture (topogram) images: No additional findings. IMPRESSION: No CT evidence of acute intracranial abnormality. Management Professionals: PSCB Transcribe Date/Time: May 16 2023 5:13P Dictated by : CHRISTINA MONAHAN DO This examination was interpreted and the report reviewed and electronically signed by: CHRISTINA MONAHAN DO on May 16 2023 5:30PM EST [id number] Normal [facility] Comprehensive metabolic 2000 panelon 05-16-2023 Albumin [Mass/Vol] 4.4 g/dL Normal 3.9-4.9 [facility] Comment on above: Order Comment: Carlos A villeda Type: BLOOD SPECIMENOrdering Facility: [facility] Address: [address] [place] [address] Performed By: #### L [id number], 60707-7, 97574-8 ####[facility] LABORATORYCLIA [id number] [place] [address] [place] ALP [Catalytic activity/Vol] 50 U/L Normal 34-123 [facility] Comment on above: Order Comment: Carlos A villeda Type: BLOOD SPECIMENOrdering Facility: [facility] Address: [address] [place] [address] Performed By: #### L [id number], , ####[facility] LABORATORYCLIA [id number] [place] [address] [place] ALT [Catalytic activity/Vol] 9 U/L Normal 7-38 [facility] Comment on above: Order Comment: Speci men Type: BLOOD SPECIMENOrdering Facility: [facility] Address: [address] [place] [address] Performed By: #### L [id number], , ####[facility] LABORATORYCLIA [id number] [place] [address] [place] Anion gap [Moles/Vol] 8 mmol/L Low 9-18 [facility] Comment on above: Order Comment: Speci men Type: BLOOD SPECIMENOrdering Facility: [facility] Address: [address] [place] [address] Performed By: #### L [id number], , ####[facility] LABORATORYCLIA [id number] [place] [address] [place] AST [Catalytic activity/Vol] 19 U/L Normal 13-35 [facility] Comment on above: Order Comment: Speci men Type: BLOOD SPECIMENOrdering Facility: [facility] Address: [address] [place] [address] Performed By: #### L [id number], , ####[facility] LABORATORYCLIA [id number] [place] [id number] [place] Bilirubin [Mass/Vol] 0.4 mg/dL Normal 0.2-1.3 [facility] Comment on above: Order Comment: Speci men Type: BLOOD SPECIMENOrdering Facility: [facility] Address: [address] [place] [address] Performed By: #### L [id number], , ####[facility] LABORATORYCLIA [id number] [place] [address] [place] Calcium [Mass/Vol] 8.8 mg/dL Normal 8.5-10.2 [facility] Comment on above: Order Comment: Speci men Type: BLOOD SPECIMENOrdering Facility: [facility] Address: [address] [place] [address] Performed By: #### L [id number], , ####[facility] LABORATORYCLIA [id number] [place] [address] [place] Chloride [Moles/Vol] 108 mmol/L High 97-105 [facility] Comment on above: Order Comment: Speci men Type: BLOOD SPECIMENOrdering Facility: [facility] Address: [address] [place] [address] Performed By: #### L [id number], , ####[facility] LABORATORYCLIA [id number] [place] [address] [place] CO2 [Moles/Vol] 26 mmol/L Normal 22-30 [facility] Comment on above: Order Comment: Speci men Type: BLOOD SPECIMENOrdering Facility: [facility] Address: [address] [place] [address] Performed By: #### L [id number], , ####[facility] LABORATORYCLIA [id number] [place] [address] [place] Creatinine [Mass/Vol] 0.76 mg/dL Normal 0.58-0.96 [facility] Comment on above: Order Comment: Speci men Type: BLOOD SPECIMENOrdering Facility: [facility] Address: [address] [place] [address] Performed By: #### L [id number], , ####[facility] LABORATORYCLIA [id number] [place] [address] [place] [facility] [place] Creatinine and Glomerular filtration rate.predicted panel (S/P/Bld) 108 mL/min/1.73m??? Normal >=60 [facility] Comment on above: Order Comment: Speci men Type: BLOOD SPECIMENOrdering Facility: [facility] Address: [address] [place] [address] Result Comment: Vickie mated Glomerular Filtration Rate [...] reflect actual GFR. Performed By: #### L [id number], 87536-8, ####[facility] LABORATORYCLIA [id number] [place] [address] [place] Glucose [Mass/Vol] 80 mg/dL Normal 74-99 [facility] Comment on above: Order Comment: Carlos A villeda Type: BLOOD SPECIMENOrdering Facility: [facility] Address: [address] [place] [address] Result Comment: The [place] Diabetes Association (ADA) provides guidance for cutoff [...] Standards of Medical Care in Diabetes 2016, [place] [employer]. Diabetes Care. 2016.39(Suppl 1). Performed By: #### L [id number], 09936-6, ####[facility] LABORATORYCLIA [id number] [place] [address] [place] Potassium [Moles/Vol] 3.7 mmol/L Normal 3.7-5.1 [facility] Comment on above: Order Comment: Carlos A villeda Type: BLOOD SPECIMENOrdering Facility: [facility] Address: [address] [place] [address] Performed By: #### L XD1604, 71223-7, ####[facility] LABORATORYCLIA [id number] [place] [address] Protein [Mass/Vol] 6.8 g/dL Normal 6.3-8.0 [facility] Comment on above: Order Comment: Speci men Type: BLOOD SPECIMENOrdering Facility: [facility] Address: [address] [place] [address] Performed By: #### L [id number], , ####[facility] LABORATORYCLIA [id number] [address] Sodium [Moles/Vol] 142 mmol/L Normal 136-144 [facility] Comment on above: Order Comment: Speci men Type: BLOOD SPECIMENOrdering Facility: [facility] Address: [address] [place] [address] Performed By: #### L [id number], , ####[facility] LABORATORYCLIA [id number] [address] Urea nitrogen [Mass/Vol] 12 mg/dL Normal 7-21 [facility] Comment on above: Order Comment: Speci men Type: BLOOD SPECIMENOrdering Facility: [facility] Address: [address] [place] [address] Performed By: #### L [id number], , ####[facility] LABORATORYCLIA [id number] [address] D dimer FEU PPP-mCncon 05-16 Fibrin D-dimer FEU (PPP) [Mass/Vol] 300 ng/mL FEU Normal <500 [facility] Comment on above: Order Comment: Speci men Type: BLOOD SPECIMENOrdering Facility: [facility] Address: [address] [place] [address] Performed By: #### 4 8065-7 ####[facility] LABORATORYCLIA [id number] [address] ECG COMPLETEon 05-16-2023 ECG COMPLETE Ventricular Rate : 9 5 BPM Atrial Rate : 95 BPM P-R Interval : 146 ms QRS Duration : 100 ms Q-T Interval : 368 ms QTC Calculation(Bazett) : 462 ms Calculated P Yolo : 73 degrees Calculated R Yolo : 88 degrees Calculated T Yolo : 64 degrees NORMAL SINUS RHYTHM INCOMPLETE RIGHT BUNDLE BRANCH BLOCK BORDERLINE ECG no stemi Confirmed by Steve SCOTT, MAGDA ([id number]), content editor ASHWINI JACKSON (1940) on 05/17/2023 8:51:33 AM NAME : HANNAH HENDRICKS PID : [id number] : 1990 Gender : Female Race : ORD : [id number] Procedure Date : May 16 2023 15:03:41 Edit Date : May 17 2023 08:51:39 Diagnosis: NORMAL SINUS RHYTHM INCOMPLETE RIGHT BUNDLE BRANCH BLOCK BORDERLINE ECG no stemi Confirmed by Steve SCOTT, MAGDA ([id number]), content editor ASHWINI JACKSON (1940) on 05/17/2023 8:51:33 AM Test Reason : Chest Pain Location : 1 : ER ED Overread By : Steve SCOTT ERIKA Edited By : ASHWINI JACKSON Referred By : , Acquired by : brown [facility] ED NOTEon 05-16-2023 ED NOTE HNO ID: [id number] Author: ESTEBAN MCFADDEN RN Service: Nursing Author Type: Registered Nurse Type: ED Notes Filed: 05/16/2023 18:59 Note Text: Pt discharged to home in stable condition. No noted distress - respirations equal and unlabored. AVS and medications reviewed. Pt verbalized understanding and importance of follow up care. No questions for this RN at this time. [facility] ED NOTE HNO ID: [id number] Author: DHARMESH DAVIS RN Service: ? Author [...] AANDOx3. Resolution of symptoms at this time. [facility] ED NOTE HNO ID: [id number] Author: TREBISKY, ERIC, RN Service: ? Author Type: Registered Nurse Type: ED Notes Filed: 05/16/2023 14:54 Note Text: Bed: ED-02 Expected date: Expected time: Means of arrival: [facility] Comments: [facility] ED PROV NOTEon 05-16-2023 ED PROV NOTE HNO ID: [id number] Author: MAGDA SCOTT MD Service: ? Author Type: Physician Type: ED Provider Notes Filed: 05/16/2023 18:51 Note Text: ED Provider Note Patient Name: Hannah Hendricks : 1990 SERVICE DATE: 05/16/23 History Patient presents with: Dizziness: [place] flushed, dizzy, while using the restroom. Had [...] activity: Yes Partners: Female control/protection: I.U.D. Comment: Fernanda 10/03 ALLERGIES Allergen Reactions Penicillins Hives Shellfish [...] Abnormal; Notable for the following components: Abs Otoe 0.97 (*) <0.87 k/uL Abs Eosin 0.61 (*) <0.46 k/uL All other components within normal limits HCG QUAL BLD - Normal HIGH SENSITIVITY TROPONIN T (INITIAL) MAGNESIUM BLD Procedures ED Course / Clinical Impression Clinical Impressions as of 05/16/23 1824 Sinus tach (more content not included)... Normal [facility] HCG QUAL BLDon 05-16-2023 HCG, QUALITATIVE Negative Normal Negative [facility] Comment on above: Order Comment: Carlos A villeda Type: BLOOD SPECIMENOrdering Facility: [facility] Address: [address] [place] [address] Performed By: #### H CG ####[facility] LABORATORYCLIA [id number] [place] [id number] [facility] OF CEM HIGH SENSITIVITY TROPONIN T (INITIAL)on 05-16-2023 Troponin T.cardiac High sensitivity method [Mass/Vol] <6 Normal <12 [facility] Comment on above: Order Comment: Carlos A villeda Type: BLOOD SPECIMENOrdering Facility: [facility] Address: [address] [place] [address] Result Comment: When assessing risk for acute [...] 30 day MACE. Performed By: #### L [id number], 98248-8, 37361-6 ####[facility] LABORATORYCLIA [id number] [place] [id number] [facility] HIGH SENSITIVITY TROPONIN T (SECOND)on 05-16-2023 Troponin T.cardiac High sensitivity method [Mass/Vol] <6 Normal <12 [facility] Comment on above: Order Comment: Carlos A villeda Type: BLOOD SPECIMENOrdering Facility: [facility] Address: [address] [place] [id number] Result Comment: When assessing risk for acute [...] 30 day MACE. Performed By: #### L [id number] ####[facility] LABORATORYCLIA [id number] [place] [address] [facility] Magnesium SerPl-ncon 05-16 Magnesium [Mass/Vol] 2.0 mg/dL Normal 1.7-2.3 [facility] Comment on above: Order Comment: Speci men Type: BLOOD SPECIMENOrdering Facility: [facility] Address: [address] [place] [address] Performed By: #### L [id number], 74300-2, 16133-2 ####[facility] LABORATORYCLIA [id number] [place] [id number] [facility] MRI LUMBAR SPINE WO IVCONon [...] and assume there are 5 lumbar-type vertebrae. Management Professionals: PSCB Transcribe Date/Time: Mar 02 2023 2:18P Dictated by : ELLYN BERRY MD This examination was interpreted and the report reviewed and electronically signed by: ELLYN BERRY MD on Mar 02 2023 2:27PM EST [id number] N [facility] CNOVon 02-06-2023 CNOV Office Visit (NSFRVW ) HANNAH HENDRICKS ([id number]) 1990 F Date Time Provider Department 02/06/23 [...] Frequency: Continuous Continuous Intervention/Comfort measure: Medication;Reposition ;Relaxation;Education ;Exercise;Heat;Cafeteria Worker y;Massage;Pillow support;Positioning;T herapeutic techniques-CPRP -- Pain Radiation: [...] Past Histories independently gathered by the clinical cryptologic support specialist and the remaining scribed note accurately describes my personal service to the patient (more content not included)... [facility] 01-30-2023 [facility] Telephone (NIQ) HANNAH HENDRICKS ([id number]) 1990 F Date Time Provider Department 01/30/23 [...] Fully Assessed Reason for Visit: Patient Question [2307] Prescriptions as of 04/23/2023 - methocarbamol (ROBAXIN-750) [...] Encounter Status:Closed by BRITT ACEVEDO on 04/23/23 [facility] CNTHERAPYon 12-31-2022 CNTHERAPY OT/PT/Speech Visit (PTMDRG) HANNAH HENDRICKS ([id number]) 1990 F Date Time Provider Department 12/31/22 6:00 PM NEHEMIAS SUAREZ PTMG Date Time Provider Department Center 12/31/2022 6:00 PM [id number], SCOTT PTMG [facility] Reason for Visit: PT Discharge [752] [...] route one time only. Placed September 2020 [facility] CNTHERAPYon 11-28-2022 CNTHERAPY OT/PT/Speech Visit (PTMDRG) HANNAH HENDRICKS ([id number]) 1990 F Date Time Provider Department 11/28/22 6:00 PM NEHEMIAS SUAREZ Date Time Provider Department Center 11/28/2022 6:00 PM [id number], SCOTT PTMDRG [facility] Reason for Visit: PT Progress Note [4606] Primary Visit Diagnosis:Chronic bilateral low back pain [...] route one time only. Placed September 2020 [facility] CNTHERAPYon 10-24-2022 CNTHERAPY OT/PT/Speech Visit (PTMDRG) HANNAH HENDRICKS ([id number]) 1990 F Date Time Provider Department 10/24/22 6:00 PM NEHEMIAS SUAREZ PTMDRG Date Time Provider Department Center 10/24/2022 6:00 PM [id number], SCOTT PTMDRG [facility] Reason for Visit: PT Progress Note [...] route one time only. Placed September 2020 [facility] CNTHERAPYon 09-12-2022 CNTHERAPY OT/PT/Speech Visit (PTMDRG) HANNAH HENDRICKS ([id number]) 1990 F Date Time Provider Department 09/12/22 5:15 PM NEHEMIAS SUAREZ PTMDRG Date Time Provider Department [place] 09/12/2022 5:15 PM [id number], SCOTT PTMDRG [facility] Reason for Visit: PT Progress Note [9166] Primary Visit Diagnosis:Chronic bilateral low back pain [...] route one time only. Placed September 2020 [facility] CNTHERAPYon 08-29-2022 CNTHERAPY OT/PT/Speech Visit (PTMDRG) HANNAH HENDRICKS ([id number]) 1990 F Date Time Provider Department 08/29/22 5:45 PM JULIANO URIASG Date Time Provider Department [place] 08/29/2022 5:45 PM [id number], SUSAN PTMG [facility] Reason for Visit: Physical Therapy [503] [...] one time only. Placed September 2020 Normal [facility] CNTHERAPYon 08-15-2022 CNTHERAPY OT/PT/Speech Visit (PTMDRG) HANNAH HENDRICKS ([id number]) 1990 F Date Time Provider Department 08/15/22 6:00 PM NEHEMIAS SUAREZ PTMDRG Date Time Provider Department Center 08/15/2022 6:00 PM [id number], SCOTT PTMDRG [facility] Reason for Visit: PT Progress Note [...] route one time only. Placed September 2020 [facility] CNTHERAPYon 07-16-2022 CNTHERAPY OT/PT/Speech Visit (PTMDRG) HANNAH HENDRICKS ([id number]) 1990 F Date Time Provider Department 07/16/22 12:30 PM NEHEMIAS SUAREZ PTMG Date Time Provider Department Center 07/16/2022 12:30 PM [id number], SCOTT PTMDRG [facility] Reason for Visit: PT Progress Note [1596] Primary Visit Diagnosis:Chronic bilateral low back pain with right-sided sciatica [M54.41, G89.29] Allergies As of Date: 07/16/2022 Noted Allergy Reaction PENICILLINS 10/31/2012 4 - Hives SHELLFISH 10/31/2012 7 - Swelling 12 - Shortness of Breath VANCOMYCIN 12/19/2021 9 - Itching Date Reviewed: 04/04/2022 Reviewed by: Radha Thuma Mucurio - Fully Assessed Prescriptions as of 07/16/2022 [...] route one time only. Placed September 2020 [facility] CNTHERAPYon 07-09-2022 CNTHERAPY OT/PT/Speech Visit (PTMDRG) HANNAH HENDRICKS ([id number]) 1990 F Date Time Provider Department 07/09/22 12:30 PM NEHEMIAS SUAREZ PTMG Date Time Provider Department Center 07/09/2022 12:30 PM [id number], SCOTT PTMG [facility] Reason for Visit: Physical Therapy [503] [...] route one time only. Placed September 2020 [facility] CNTHERAPYon 07-02-2022 CNTHERAPY OT/PT/Speech Visit (PTMDRG) HANNAH HENDRICKS ([id number]) 1990 F Date Time Provider Department 3/20/23 1:45 PM JULIANO URIAS PTMDRG Date Time Provider Department Center 07/02/2022 1:45 PM [id number], SUSAN PTMDRG [facility] Reason for Visit: Physical Therapy [503] [...] route one time only. Placed September 2020 [facility] CNTHERAPYon 06-25-2022 CNTHERAPY OT/PT/Speech Visit (PTMDRG) HANNAH HENDRICKS ([id number]) 1990 F Date Time Provider Department 06/25/22 4:30 PM NEHEMIAS SUAREZ PTMDRG Date Time Provider Department [place] 06/25/2022 4:30 PM [id number], SCOTT PTMDRG [facility] Reason for Visit: Physical Therapy [503] [...] one time only. Placed September 2020 Normal [facility] CNTHERAPYon 06-18-2022 CNTHERAPY OT/PT/Speech Visit (PTMDRG) HANNAH HENDRICKS ([id number]) 1990 F Date Time Provider Department 06/18/22 12:30 PM NEHEIMAS SUAREZ PTMDRG Date Time Provider Department Center 06/18/2022 12:30 PM [id number], SCOTT PTMDRG [facility] Reason for Visit: PT Progress Note [...] one time only. Placed September 2020 Normal [facility] CNTHERAPYon 06-11-2022 CNTHERAPY OT/PT/Speech Visit (PTMDRG) HANNAH HENDRICKS ([id number]) 1990 F Date Time Provider Department 06/11/22 12:15 PM JULIANO URIAS PTMG Date Time Provider Department [place] 06/11/2022 12:15 PM [id number], SUSAN PTMDRG [facility] Reason for Visit: Physical Therapy [503] Primary Visit Diagnosis:Chronic bilateral low back pain with right-sided sciatica [M54.41, G89.29] Allergies As of Date: 06/11/2022 Noted Allergy Reaction PENICILLINS 10/31/2012 4 - Hives SHELLFISH 10/31/2012 7 - Swelling 12 - Shortness of Breath VANCOMYCIN 12/19/2021 9 - Itching Date Reviewed: 04/04/2022 Reviewed by: Radha Solis Mucramonita - Fully Assessed Prescriptions as of 06/11/2022 [...] route one time only. Placed September 2020 [facility] CNTHERAPYon 06-04-2022 CNTHERAPY OT/PT/Speech Visit (PTMDRG) HANNAH HENDRICKS ([id number]) 1990 F Date Time Provider Department 06/04/22 12:15 PM JULIANO URIAS PTMG Date Time Provider Department [place] 06/04/2022 12:15 PM [id number], SUSAN PTMDRG [facility] Reason for Visit: Physical Therapy [503] [...] route one time only. Placed September 2020 [facility] CNTHERAPYon 05-30-2022 CNTHERAPY OT/PT/Speech Visit (PTMDRG) HANNAH HENDRICKS ([id number]) 1990 F Date Time Provider Department 05/30/22 12:30 PM NEHEMIAS SUAREZ PTMG Date Time Provider Department Center 05/30/2022 12:30 PM [id number], SCOTT PTMG [facility] Reason for Visit: Physical Therapy [503] [...] route one time only. Placed September 2020 [facility] CNTHERAPYon 05-21-2022 CNTHERAPY OT/PT/Speech Visit (PTMDRG) HANNAH HENDRICKS ([id number]) 1990 F Date Time Provider Department 05/21/22 1:15 PM NEHEMIAS SUAREZ PTMKIYA Date Time Provider Department Center 05/21/2022 1:15 PM [id number], SCOTT PTMKIYA [facility] Reason for Visit: PT Progress Note [1126] Primary Visit Diagnosis:Chronic bilateral low back pain [...] one time only. Placed September 2020 Normal [facility] 04-04-2022 CNOV Office Visit (NSFRVW ) HANNAH HENDRICKS ([id number]) 1990 F Date Time Provider Department 04/04/22 [...] Order(s):CONSULT TO PHYSICAL THERAPY [9032] Order #: [id number]: 1 FUTURE Prescriptions as of 04/06/2022 - [...] for Encounter Date Provider Department Center 04/04/2022 [id number], GHAI (more content not included)... [facility] ANES POSTPROC EVALon 022 ANES POSTPROC EVAL HNO ID: [id number] Author: Lisette Tarango MD Service: Anesthesiology Author Type: Anesthesiologist Type: Anesthesia Postprocedure Evaluation Filed: 03/20/2022 2:24 PM Note Text: POST ANESTHESIA EVALUATION NOTE : 1990 Procedure Summary Date: 03/20/22 Room / Location: OR04 / [place] OR Anesthesia Start: 1207 Anesthesia Stop: 1346 [...] March 20, 2022 TIME: 2:24 PM CSN: [id number] [facility] ANES PRE-OPon 03-20-2022 ANES PRE-OP HNO ID: [id number] Author: Mark Chavez MD Service: Anesthesiology Author Type: Anesthesiologist Type: Anesthesia Preprocedure Evaluation Filed: 03/20/2022 11:36 AM Note Text: ANESTHESIOLOGY DAY OF SURGERY NOTE : 1990 Procedure Information Date/Time: 03/20/22 1225 Procedure: LAMINECTOMY DISCECTOMY LUMBAR LEVEL 1 (Right: Spine Lumbar) - Redo right L4-5 microdiscectomy Location: [place] [address] / OR Surgeons: Konstantin Kirkland MD Estimated body [...] and consent discussed: yes. Patient / Responsible [employer] agrees to proceed: yes Patient / Surrogate [...] March 20, 2022 TIME: 11:36 AM CSN: [id number] [facility] BRIEF OP NOTon 03-20-2022 BRIEF OP NOT HNO ID: [id number] Author: Konstantin Kirkland MD Service: Neurosurgery Author Type: Physician Type: Brief Op Note Filed: 03/20/2022 1:20 PM Note Text: BRIEF OPERATIVE / PROCEDURE NOTE LOG ID: [id number] SURGERY/PROCEDURE DATE: 03/20/2022 INCISION/PROCEDURE START TIME: 12:29 PM INCISION CLOSE/PROCEDURE END TIME: 1:14 PM SURGEON(S)/PROCEDURAL IST(S) AND DRAFTING TEACHER(S): Surgeon(s) and Role: * Konstantin Kirkland MD [...] DATE: March 20, 2022 TIME: 1:06 PM [facility] HCG Preg Ur Qlon 03-20-2022 HCG ( test) Ql (U) Negative Normal Negative [facility] Comment on above: Order Comment: Speci men Type: URINE SPECIMENOrdering Facility: [facility] Address: [address] [place] [phone] Result Comment: This test is intended to aid in the early detection of . Very dilute urine samples, as indicated by a low specific gravity, may not contain group sales representative levels of hCG. This test detects [...] for . Performed By: #### 2 106-3 ####NONDENOMINATIONAL LABORATORYIA [id number] [address] NURSING PROGon 03-20-2022 NURSING PROG HNO ID: [id number] Author: Ryanne Tracy RN Service: ? Author Type: Registered Nurse Type: Nursing Progress Note Filed: 03/20/2022 1:42 PM Note Text: Discharge Status: Patient is Awakening, and is no airway issues. Skin condition was WNL. Transported to recovery room via cart with siderails up. Accompanied by kier pleater and surgeon. [facility] NURSING PROG HNO ID: [id number] Author: Ryanne Tracy RN Service: ? Author [...] of exposure, and providing warm irrigation fluid. [facility] OPERATIVE NOon 03-20-2022 OPERATIVE NO HNO ID: [id number] Author: Konstantin Kirklnad MD Service: Neurosurgery Author Type: Physician Type: Operative Report Filed: 03/20/2022 1:20 PM Note Text: OPERATIVE/PROCEDURE REPORT LOG ID: [id number] SURGERY/PROCEDURE DATE: 03/20/2022 INCISION/PROCEDURE START TIME: 12:29 PM INCISION CLOSE/PROCEDURE END TIME: 1:14 PM SURGEON(S)/PROCEDURAL IST(S) AND DRAFTING TEACHER(S): Surgeon(s) and Role: * Konstantin Kirkland MD [...] DATE: March 20, 2022 TIME: 1:12 PM [facility] XR VERIFY LEVEL I-BRTCB-UKnd 03-20-2022 XR VERIFY LEVEL L-SPINE-NB * * [...] phone and Skype during the surgical procedure. Management Professionals: [facility] Transcribe Date/Time: Mar 20 2022 1:14P Dictated by : SKY SCHWARTZ MD This examination was interpreted and the report reviewed and electronically signed by: SKY SCHWARTZ MD on Mar 20 2022 1:16PM EST [id number] [facility] Basic metabolic 2000 panelon 03-19-2022 Anion gap [Moles/Vol] 5 mmol/L Low 9-18 [facility] Comment on above: Order Comment: Speci men Type: BLOOD SPECIMENOrdering Facility: [facility] Address: [address] Performed By: #### 2 4321-2 ####NONDENOMINATIONAL LABORATORYCLIA [id number] [address] [place], [place] [id number] [place] Calcium [Mass/Vol] 9.3 mg/dL Normal 8.5-10.2 [facility] Comment on above: Order Comment: Speci men Type: BLOOD SPECIMENOrdering Facility: [facility] Address: [address] Performed By: #### 2 4321-2 ####NONDENOMINATIONAL LABORATORYCLIA [id number] [address] [place], [place] [address] [place] Chloride [Moles/Vol] 103 mmol/L Normal 97-105 [facility] Comment on above: Order Comment: Speci men Type: BLOOD SPECIMENOrdering Facility: [facility] Address: [address] [place], [place] [address] Performed By: #### 2 4321-2 ####NONDENOMINATIONAL LABORATORYCLIA [id number] [place] [address] [place] CO2 [Moles/Vol] 29 mmol/L Normal 22-30 [facility] Comment on above: Order Comment: Speci men Type: BLOOD SPECIMENOrdering Facility: [facility] Address: [address] [place], [place] [address] Performed By: #### 2 4321-2 ####NONDENOMINATIONAL LABORATORYCLIA [id number] [place] [address] [place] Creatinine [Mass/Vol] 0.68 mg/dL Normal 0.58-0.96 [facility] Comment on above: Order Comment: Speci men Type: BLOOD SPECIMENOrdering Facility: [facility] Address: [address] Performed By: #### 2 4321-2 ####NONDENOMINATIONAL LABORATORYCLIA [id number] [place] [address] [place] ESTIMATED GLOMERULAR FILTRATION RATE 120 mL/min/1.73m??? Normal >=60 [facility] Comment on above: Order Comment: Carlos A villeda Type: BLOOD SPECIMENOrdering Facility: [facility] Address: [address] [place] [address] Result Comment: Vickie mated Glomerular Filtration Rate [...] actual GFR. Performed By: #### 2 4321-2 ####NONDENOMINATIONAL LABORATORYCLIA [id number] [place] [address] [place] Glucose [Mass/Vol] 90 mg/dL Normal 74-99 [facility] Comment on above: Order Comment: Carlos A villeda Type: BLOOD SPECIMENOrdering Facility: [facility] Address: [address] [place] [address] Result Comment: The [place] [employer] Association (ADA) provides guidance for cutoff [...] Standards of Medical Care in Diabetes 2016, [place] [employer]. Diabetes Care. 2016.39(Suppl 1). Performed By: #### 2 4321-2 ####NONDENOMINATIONAL LABORATORYCLIA [id number] [place] [id number] [place] Potassium [Moles/Vol] 4.1 mmol/L Normal 3.7-5.1 [facility] Comment on above: Order Comment: Speci men Type: BLOOD SPECIMENOrdering Facility: [facility] Address: [address] [facility] [place] [place] [address] Performed By: #### 2 4321-2 ####NONDENOMINATIONAL LABORATORYCLIA [id number] [address] [place] Sodium [Moles/Vol] 137 mmol/L Normal 136-144 [facility] Comment on above: Order Comment: Speci men Type: BLOOD SPECIMENOrdering Facility: [facility] Address: [address] [place] [address] Performed By: #### 2 4321-2 ####NONDENOMINATIONAL LABORATORYCLIA [id number] [place] [address] [place] Urea nitrogen [Mass/Vol] 17 mg/dL Normal 7-21 [facility] Comment on above: Order Comment: Speci men Type: BLOOD SPECIMENOrdering Facility: [facility] Address: [address] [place] [address] Performed By: #### 2 4321-2 ####NONDENOMINATIONAL LABORATORYCLIA [id number] [address] [place] Anion gap [Moles/Vol] 5 mmol/L Low 9 - 18 mmol/L [facility] Calcium [Mass/Vol] 9.3 mg/dL 8.5 - 10. 2 mg/dL [facility] Chloride [Moles/Vol] 103 mmol/L 97 - 10 5 mmol/L [facility] CO2 [Moles/Vol] 29 mmol/L 22 - 30 mmol/L [facility] Creatinine [Mass/Vol] 0.68 mg/dL 0.58 - 0.96 mg/dL [facility] Estimated Glomerular Filtration Rate 120 mL/min/1.73m >=60 mL/min/1.73m [facility] Glucose [Mass/Vol] 90 mg/dL 74 - 99 mg/dL [facility] Potassium [Moles/Vol] 4.1 mmol/L 3.7 - 5.1 mmol/L [facility] Sodium [Moles/Vol] 137 mmol/L 136 - 144 mmol/L [facility] Urea nitrogen [Mass/Vol] 17 mg/dL 7 - 21 mg/d L [facility] CBC W Auto Differential pane l (Bld)on 03-19-2022 Basophils (Bld) [#/Vol] 0.04 10*3/uL Normal <0.11 [facility] Comment on above: Order Comment: Speci men Type: BLOOD SPECIMENOrdering Facility: [facility] Address: [address] [place] [address] Performed By: #### 5 7021-8 ####NONDENOMINATIONAL LABORATORYCLIA [id number] [address] [place] [address] [place] Basophils/100 WBC (Bld) 0.6 % Normal [facility] Comment on above: Order Comment: Speci men Type: BLOOD SPECIMENOrdering Facility: [facility] Address: [address] [place] [address] Performed By: #### 5 7021-8 ####NONDENOMINATIONAL LABORATORYCLIA [id number] [address] [place] [address] [place] Differential cell count method Nom (Bld) Auto Normal [facility] Comment on above: Order Comment: Speci men Type: BLOOD SPECIMENOrdering Facility: [facility] Address: [address] [place] [address] Performed By: #### 5 7021-8 ####NONDENOMINATIONAL LABORATORYCLIA [id number] [address] [place] [address] [place] Eosinophils (Bld) [#/Vol] 0.73 10*3/uL High <0.46 [facility] Comment on above: Order Comment: Speci men Type: BLOOD SPECIMENOrdering Facility: [facility] Address: [address] [place] [address] Performed By: #### 5 7021-8 ####NONDENOMINATIONAL LABORATORYCLIA [id number] [address] [place] [address] [place] Eosinophils/100 WBC (Bld) 10.0 % Normal [facility] Comment on above: Order Comment: Speci men Type: BLOOD SPECIMENOrdering Facility: [facility] Address: [address] [place] [address] Performed By: #### 5 7021-8 ####NONDENOMINATIONAL LABORATORYCLIA [id number] [address] [place] Erythrocyte distribution width (RBC) [Ratio] 11.8 % Normal 11.5-15.0 [facility] Comment on above: Order Comment: Speci men Type: BLOOD SPECIMENOrdering Facility: [facility] Address: [address] [place] [address] Performed By: #### 5 7021-8 ####NONDENOMINATIONAL LABORATORYCLIA [id number] [address] [place] Hematocrit (Bld) [Volume fraction] 41.7 % Normal 36.0-46.0 [facility] Comment on above: Order Comment: Speci men Type: BLOOD SPECIMENOrdering Facility: [facility] Address: [address] [place] [address] Performed By: #### 5 7021-8 ####NONDENOMINATIONAL LABORATORYCLIA [id number] [place] [address] [place] Hemoglobin (Bld) [Mass/Vol] 13.5 g/dL Normal 11.5-15.5 [facility] Comment on above: Order Comment: Speci men Type: BLOOD SPECIMENOrdering Facility: [facility] Address: [address] [place] [address] Performed By: #### 5 7021-8 ####NONDENOMINATIONAL LABORATORYCLIA [id number] [place] [address] [place] Immature granulocytes (Bld) [#/Vol] 10*3/uL Normal <0.10 [facility] Comment on above: Order Comment: Speci men Type: BLOOD SPECIMENOrdering Facility: [facility] Address: [address] [place], [place] [address] Performed By: #### 5 7021-8 ####NONDENOMINATIONAL LABORATORYCLIA [id number] [address] [place], [place] [address] [place] Immature granulocytes/100 WBC (Bld) 0.1 % Normal [facility] Comment on above: Order Comment: Speci men Type: BLOOD SPECIMENOrdering Facility: [facility] Address: [address] [place] [address] Performed By: #### 5 7021-8 ####NONDENOMINATIONAL LABORATORYCLIA [id number] [address] [place] [address] [place] Lymphocytes (Bld) [#/Vol] 2.89 10*3/uL Normal 1.00-4.00 [facility] Comment on above: Order Comment: Speci men Type: BLOOD SPECIMENOrdering Facility: [facility] Address: [address] [place] [address] Performed By: #### 5 7021-8 ####NONDENOMINATIONAL LABORATORYCLIA [id number] [place] [address] [place] Lymphocytes/100 WBC (Bld) 39.8 % Normal [facility] Comment on above: Order Comment: Speci men Type: BLOOD SPECIMENOrdering Facility: [facility] Address: [address] [place] [address] Performed By: #### 5 7021-8 ####NONDENOMINATIONAL LABORATORYCLIA [id number] [address] [place], [place] [address] [place] MCH (RBC) [Entitic mass] 32.1 pg Normal 26.0-34.0 [facility] Comment on above: Order Comment: Speci men Type: BLOOD SPECIMENOrdering Facility: [facility] Address: [address] [place] [address] Performed By: #### 5 7021-8 ####NONDENOMINATIONAL LABORATORYCLIA [id number] [address] [place], [place] [address] [place] MCHC (RBC) [Mass/Vol] 32.4 g/dL Normal 30.5-36.0 [facility] Comment on above: Order Comment: Speci men Type: BLOOD SPECIMENOrdering Facility: [facility] Address: [address] [place] [address] Performed By: #### 5 7021-8 ####NONDENOMINATIONAL LABORATORYCLIA [id number] [address] [place] [address] [place] MCV (RBC) [Entitic vol] 99.3 fL Normal 80.0-100.0 L [facility] Comment on above: Order Comment: Speci men Type: BLOOD SPECIMENOrdering Facility: [facility] Address: [address] Performed By: #### 5 7021-8 ####NONDENOMINATIONAL LABORATORYCLIA [id number] [place] [address] [place] Monocytes (Bld) [#/Vol] 0.64 10*3/uL Normal <0.87 [facility] Comment on above: Order Comment: Speci men Type: BLOOD SPECIMENOrdering Facility: [facility] Address: [address] [place] [address] Performed By: #### 5 7021-8 ####NONDENOMINATIONAL LABORATORYCLIA [id number] [place] [address] [place] Monocytes/100 WBC (Bld) 8.8 % Normal [facility] Comment on above: Order Comment: Speci men Type: BLOOD SPECIMENOrdering Facility: [facility] Address: [address] Performed By: #### 5 7021-8 ####NONDENOMINATIONAL LABORATORYCLIA [id number] [place] [address] [place] Neutrophils (Bld) [#/Vol] 2.96 10*3/uL Normal 1.45-7.50 [facility] Comment on above: Order Comment: Speci men Type: BLOOD SPECIMENOrdering Facility: [facility] Address: [address] [place], [place] [address] Performed By: #### 5 7021-8 ####NONDENOMINATIONAL LABORATORYCLIA [id number] [address] [place], [place] [address] [facility] Neutrophils/100 WBC (Bld) 40.7 % Normal [facility] Comment on above: Order Comment: Speci men Type: BLOOD SPECIMENOrdering Facility: [facility] Address: [address] [place] [address] Performed By: #### 5 7021-8 ####NONDENOMINATIONAL LABORATORYCLIA [id number] [address] [place] [address] [place] Nucleated RBC (Bld) [#/Vol] 10*3/uL Normal <0.01 [facility] Comment on above: Order Comment: Speci men Type: BLOOD SPECIMENOrdering Facility: [facility] Address: [address] [place] [address] Performed By: #### 5 7021-8 ####NONDENOMINATIONAL LABORATORYCLIA [id number] [address] [place] Nucleated RBC/100 WBC (Bld) [Ratio] 0.0 /100 WBC Normal [facility] Comment on above: Order Comment: Speci men Type: BLOOD SPECIMENOrdering Facility: [facility] Address: [address] [place] [address] Performed By: #### 5 7021-8 ####NONDENOMINATIONAL LABORATORYCLIA [id number] [place] [address] [place] Platelet mean volume (Bld) [Entitic vol] 9.3 fL Normal 9.0-12.7 [facility] Comment on above: Order Comment: Speci men Type: BLOOD SPECIMENOrdering Facility: [facility] Address: [address] [place], [place] [address] Performed By: #### 5 7021-8 ####NONDENOMINATIONAL LABORATORYCLIA [id number] [place] [address] [facility] OF C[place] Platelets (Bld) [#/Vol] 373 10*3/uL Normal 150-400 [facility] Comment on above: Order Comment: Speci men Type: BLOOD SPECIMENOrdering Facility: [facility] Address: [place] [address] Performed By: #### 5 7021-8 ####NONDENOMINATIONAL LABORATORYCLIA [id number] [place] [address] [place] [facility] RBC (Bld) [#/Vol] 4.20 10*6/uL Normal 3.90-5.20 [facility] Comment on above: Order Comment: Speci men Type: BLOOD SPECIMENOrdering Facility: [facility] Address: [place] [address] Performed By: #### 5 7021-8 ####NONDENOMINATIONAL LABORATORYCLIA [id number] [address] STATES OF [facility] WBC (Bld) [#/Vol] 7.27 10*3/uL Normal 3.70-11.00 [facility] Comment on above: Order Comment: Speci men Type: BLOOD SPECIMENOrdering Facility: [facility] Address: [place] [address] Performed By: #### 5 7021-8 ####NONDENOMINATIONAL LABORATORYCLIA [id number] [address] OF [place] Basophils (Bld) [#/Vol] 0.04 10*3/uL <0.11 k/uL [facility] Basophils/100 WBC (Bld) 0.6 % [facility] Differential cell count method Nom (Bld) Auto [facility] Eosinophils (Bld) [#/Vol] 0.73 10*3/uL High <0.46 k/uL [facility] Eosinophils/100 WBC (Bld) 10.0 % [facility] Erythrocyte distribution width (RBC) [Ratio] 11.8 % 11.5 - 15.0 % [facility] Hematocrit (Bld) [Volume fraction] 41.7 % 36.0 - 46.0 % [facility] Hemoglobin (Bld) [Mass/Vol] 13.5 g/dL 11.5 - 15.5 g/dL [facility] Immature granulocytes (Bld) [#/Vol] <0.10 k/uL [facility] Immature granulocytes/100 WBC (Bld) 0.1 % [facility] Lymphocytes (Bld) [#/Vol] 2.89 10*3/uL 1.00 - 4.00 k/uL [facility] Lymphocytes/100 WBC (Bld) 39.8 % [facility] MCH (RBC) [Entitic mass] 32.1 pg 26.0 - 34.0 pg [facility] MCHC (RBC) [Mass/Vol] 32.4 g/dL 30.5 - 36.0 g/dL [facility] MCV (RBC) [Entitic vol] 99.3 fL 80.0 - 100.0 fL [facility] Monocytes (Bld) [#/Vol] 0.64 10*3/uL <0.87 k/uL [facility] Monocytes/100 WBC (Bld) 8.8 % [facility] Neutrophils (Bld) [#/Vol] 2.96 10*3/uL 1.45 - 7.50 k/uL [facility] Neutrophils/100 WBC (Bld) 40.7 % [facility] Nucleated RBC (Bld) [#/Vol] <0.01 k/uL [facility] Nucleated RBC/100 WBC (Bld) [Ratio] 0.0 /100 WBC [facility] Platelet mean volume (Bld) [Entitic vol] 9.3 fL 9.0 - 12.7 fL [facility] Platelets (Bld) [#/Vol] 373 10*3/uL 150 - 400 k /uL [facility] RBC (Bld) [#/Vol] 4.20 10*6/uL 3.90 - 5.2 0 m/uL [facility] WBC (Bld) [#/Vol] 7.27 10*3/uL 3.70 - 11. 00 k/uL [facility] TYPE AND SCREEN,30 DAYon ABO A [facility] HIstorical Ab Scr Status Negative [facility] Rh Nom (Bld) Positive [facility] ABO A Normal [facility] Comment on above: Order Comment: Speci men Type: BLOOD SPECIMEN Ordering Facility: [facility] Address: [address] [place] [id number] Performed By: #### T SCR30 #### [facility] CLIA [id number] [address] [place] [address] HISTORICAL AB SCR STATUS Negative [facility] Comment on above: Order Comment: Speci men Type: BLOOD SPECIMEN Ordering Facility: [facility] Address: [address] [address] Performed By: #### T SCR30 #### [facility] CLIA [id number] [address] [place] [address] Rh Nom (Bld) Positive [facility] Comment on above: Order Comment: Speci men Type: BLOOD SPECIMEN Ordering Facility: [facility] Address: [address] [address] Performed By: #### T SCR30 #### [facility] IA [id number] [address] [place] [address] CNPNon 03-16-2022 CNPN Telephone (NEADFV) HANNAH HENDRICKS ([id number]) 1990 F Date Time Provider Department 03/16/22 KONSTANTIN KIRKLAND NEBRUCEFV During your visit today, we recorded the following information about you: Karen Modi Sec 03/16/2022 1:33 PM Signed Patient at [phone] is requesting a call back Re: MRI results. She is quite upset. Italia Ackerman RN 03/16/2022 2:10 PM Signed Will forward for review. Italia Ackerman RN 03/16/2022 2:[address] Kirkland spoke with patient. Will be having surgery on 03/20/22. Karen Long 03/16/2022 3:34 PM Signed Patient at [phone] is requesting a call back. She has [...] Encounter Status:Closed by ITALIA ACKERMAN on 03/16/22 [facility] MRI LUMBAR SPINE URSZULA Milligan 03-16-2022 [facility] Gallo 03-12-2022 YVON Telephone (NEBRUCEFV) HANNAH HENDRICKS ([id number]) 1990 F Date Time Provider Department 03/12/22 KONSTANTIN KIRKLAND During your visit today, we recorded the following information about you: Darlnee [facility] 03/12/2022 8:35 AM Signed Patients first day working and states she is in extreme pain, feels she cannot take it, the top of her right leg and her lower back is stiff, states pain is 7 out of 10. 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 Will forward for review. Radha Dickens [...] tabletRfl: 0 MRI LUMBAR SPINE WO IVCON [[id number]] Order #: [id number] FUTURE Prescriptions as of 03/12/2022 - methylPREDNISolone [...] Encounter Status:Closed by KELSY WATERMAN on 03/12/22 [facility] ANES POSTPROC EVALon 022 ANES POSTPROC EVAL HNO ID: [id number] Author: Lisette Tarango MD Service: Anesthesiology Author Type: Anesthesiologist Type: Anesthesia Postprocedure Evaluation Filed: 12/19/2021 10:07 AM Note Text: POST ANESTHESIA EVALUATION NOTE : 1990 Procedure Summary Date: 12/19/21 Room / Location: OR09 / OR Anesthesia Start: 739 Anesthesia Stop: [...] December 19, 2021 TIME: 10:07 AM CSN: [id number] [facility] ANES PRE-OPon 12-19-2021 ANES PRE-OP HNO ID: [id number] Author: Viridiana Brower MD Service: Anesthesiology Author Type: Anesthesiologist Type: Anesthesia Preprocedure Evaluation Filed: 12/19/2021 7:14 AM Note Text: ANESTHESIOLOGY DAY OF SURGERY NOTE : 1990 Procedure Information Date/Time: 12/19/21729 Procedure: LAMINECTOMY DISCECTOMY LUMBAR LEVEL 1 (Right: Spine Lumbar) - Right L4-5 microdiscectomy Location: [place] [address] / OR Surgeons: Konstantin Kirkland MD Estimated body [...] and consent discussed: yes. Patient / Responsible [employer] agrees to proceed: yes Patient / Surrogate [...] December 19, 2021 TIME: 7:14 AM CSN: [id number] [facility] BRIEF OP NOTon 12-19-2021 BRIEF OP NOT HNO ID: [id number] Author: Demetrice Orantes MD Service: Neurosurgery Author Type: Resident Type: Brief Op Note Filed: 12/19/2021 9:14 AM Note Text: BRIEF OPERATIVE / PROCEDURE NOTE LOG ID: [id number] SURGERY/PROCEDURE DATE: 12/19/2021 INCISION/PROCEDURE START TIME: 8:05 AM INCISION CLOSE/PROCEDURE END TIME: 9:06 AM SURGEON(S)/PROCEDURAL IST(S) AND DRAFTING TEACHER(S): Surgeon(s) and Role: * Konstantin Kirkland MD [...] DATE: December 19, 2021 TIME: 8:49 AM [facility] HCG Preg Ur Qlon 12-19-2021 HCG ( test) Ql (U) Negative Normal Negative [facility] Comment on above: Order Comment: Speci men Type: URINE SPECIMENOrdering Facility: [facility] Address: [address] [place], [place] [id number] Result Comment: This test is intended to aid in the early detection of . Very dilute urine samples, as indicated by a low specific gravity, may not contain group sales representative levels of hCG. This test detects [...] for . Performed By: #### 2 106-3 ####[facility]IA [id number] [address] NURSING PROGon 12-19-2021 NURSING PROG HNO ID: [id number] Author: Ryanne Tracy RN Service: ? Author Type: Registered Nurse Type: Nursing Progress Note Filed: 12/19/2021 9:18 AM Note Text: Discharge Status: Patient is Drowsy, and is no airway issues. Skin condition was WNL. Transported to recovery room via cart with siderails up. Accompanied by kier pleater and surgeon. [facility] NURSING PROG HNO ID: [id number] Author: Ryanne Tracy RN Service: ? Author [...] of exposure, and providing warm irrigation fluid. [facility] OPERATIVE NOon 12-19-2021 OPERATIVE NO HNO ID: [id number] Author: Konstantin Kirkland MD Service: Neurosurgery Author Type: Physician Type: Operative Report Filed: 12/19/2021 11:55 AM Note Text: OPERATIVE/PROCEDURE REPORT LOG ID: [id number] SURGERY/PROCEDURE DATE: 12/19/2021 INCISION/PROCEDURE START TIME: 8:05 AM INCISION CLOSE/PROCEDURE END TIME: 9:06 AM SURGEON(S)/PROCEDURAL IST(S) AND DRAFTING TEACHER(S): Surgeon(s) and Role: * Konstantin Kirkland MD [...] DATE: December 19, 2021 TIME: 8:54 AM [facility] XR LUMBAR SPECIFY 1Von 12-19 XR LUMBAR SPECIFY 1V * * *Final Report* * * DATE OF EXAM: Dec 19 2021 8:01AM [facility] - XR LUMBAR SPECIFY 1V / [...] Variants: None. IMPRESSION: Localization for surgical purposes Management Professionals: [facility] Transcribe Date/Time: Dec 19 2021 8:06A Dictated by : HAYDE RONDON MD This examination was interpreted and the report reviewed and electronically signed by: HAYDE RONDON MD on Dec 19 2021 8:07AM EST [id number] [facility] XR VERIFY LEVEL [id number] 12-19-2021 XR VERIFY LEVEL L-SPINE-NB * * *Final Report* * * DATE OF EXAM: Dec 19 2021 8:16AM [facility] 5642 - XR VERIFY LEVEL L-SPINE-NB / PROCEDURE REASON: Lumbar disc herniation * * * * Physician Interpretation * * * * 14045 TECHNIQUE: Single lateral image of the lumbar [...] on 12/19/2021 8:22 AM via verbal communication. Management Professionals: [facility] Transcribe Date/Time: Dec 19 2021 8:19A Dictated by : HAYDE RONDON MD This examination was interpreted and the report reviewed and electronically signed by: HAYDE RONDON MD on Dec 19 2021 8:22AM EST [id number] [facility] Basic metabolic 2000 panelon 12-06-2021 Anion gap [Moles/Vol] 9 mmol/L 9 - 18 mmol/L [facility] Calcium [Mass/Vol] 9.9 mg/dL 8.5 - 10. 2 mg/dL [facility] Chloride [Moles/Vol] 103 mmol/L 97 - 10 5 mmol/L [facility] CO2 [Moles/Vol] 28 mmol/L 22 - 30 mmol/L [facility] Creatinine [Mass/Vol] 0.72 mg/dL 0.58 - 0.96 mg/dL [facility] Estimated Glomerular Filtration Rate 116 mL/min/1.73m >=60 mL/min/1.73m [facility] Glucose [Mass/Vol] 87 mg/dL 74 - 99 mg/dL [facility] Potassium [Moles/Vol] 4.3 mmol/L 3.7 - 5.1 mmol/L [facility] Sodium [Moles/Vol] 140 mmol/L 136 - 144 mmol/L [facility] Urea nitrogen [Mass/Vol] 11 mg/dL 7 - 21 mg/d L [facility] CBC W Auto Differential pane l (Bld)on 12-06-2021 Abs Immature Gran <0.10 k/uL [facility] Basophils (Bld) [#/Vol] 0.04 10*3/uL <0.11 k/uL [facility] Basophils/100 WBC (Bld) 0.7 % C [facility] Differential cell count method Nom (Bld) Auto [facility] Eosinophils (Bld) [#/Vol] 0.60 10*3/uL High <0.46 k/uL [facility] Eosinophils/100 WBC (Bld) 10.7 % [facility] Erythrocyte distribution width (RBC) [Ratio] 11.2 % Low 11.5 - 15.0 % [facility] Hematocrit (Bld) [Volume fraction] 37.1 % 36.0 - 46.0 % [facility] Hemoglobin (Bld) [Mass/Vol] 12.7 g/dL 11.5 - 15.5 g/dL [facility] Immature Gran % 0.2 % [facility] Lymphocytes (Bld) [#/Vol] 2.07 10*3/uL 1.00 - 4.00 k/uL [facility] Lymphocytes/100 WBC (Bld) 37.0 % [facility] MCH (RBC) [Entitic mass] 33.3 pg 26.0 - 34.0 pg [facility] MCHC (RBC) [Mass/Vol] 34.2 g/dL 30.5 - 36.0 g/dL [facility] MCV (RBC) [Entitic vol] 97.4 fL 80.0 - 100.0 fL [facility] Monocytes (Bld) [#/Vol] 0.61 10*3/uL <0.87 k/uL [facility] Monocytes/100 WBC (Bld) 10.9 % C [facility] Neutrophils (Bld) [#/Vol] 2.26 10*3/uL 1.45 - 7.50 k/uL [facility] Neutrophils/100 WBC (Bld) 40.5 % [facility] Nucleated RBC (Bld) [#/Vol] <0.01 k/uL [facility] Nucleated RBC/100 WBC (Bld) [Ratio] 0.0 /100 WBC [facility] Platelet mean volume (Bld) [Entitic vol] 9.6 fL 9.0 - 12.7 fL [facility] Platelets (Bld) [#/Vol] 321 10*3/uL 150 - 400 k /uL [facility] RBC (Bld) [#/Vol] 3.81 10*6/uL Low 3.90 - 5.2 0 m/uL [facility] WBC (Bld) [#/Vol] 5.59 10*3/uL 3.70 - 11. 00 k/uL [facility] MRI LUMBAR SPINE WO IVCONon 10-05-2021 [facility] CT Spine Lumbar w/o Contrast on 09-14-2021 CT Spine Lumbar w/o Contrast Exam Date/Time: 09/13/2021 23:08 EDT Reason for Exam: Low back pain, progressive neurologic deficit;Other (please specify) Report IMPRESSION: No acute fracture or traumatic malalignment. L4-L5 and L5-S1 disc bulges with mild canal stenosis and zthz-ax-swiyiwgd left neural foraminal narrowing, most prominent at [...] MD Transcribed by: SAM Technologist: KATARZYNA Sheehan [facility] Coding Summary.on 09-14-2021 Coding Summary. [id number] G h0bWw+PGhlYWQ+GT1KIKA gW34hjKLiaS8NZ4aDLO5Z MKKILOGXHO0NHA6maQM5H VkyF8OdbiEh ApowxBAcNV05XXm5DJQ5p WlpSTkevE1byFDmN9b5Mm ToTM68oK73SRrfQDRzUvS 3LjZpbjsgbWFy M8amHhCooUYaGzh+PHRhY mxlIHdpZHRoPScxMDAlJy GolPzoRL6uOv1pJZFqQMC vbGxhcHNlOiBj h7uzGMReSJgvDG3kcSwoP 3RloOC3FQOly9z9Pp32sR I+SAPxWYG0yXlaQPebh58 3OqCyp2lmDNE5 zTLyNOdfUIM6L12lc4P8I ZDgGYNyDMA9pAE0jD5clD xchznjY5OevSLmBaR5VOJ 2kRKfbB1ygQnc uqglkY0lFrq+T17RIK8AW RHJZH7TLjs3L5EgXwvowT I+FM42CAOkLI62gTPaaLB xd3oujSm9CtAk GSQdQRT6rRvzLHrwt4WmR HExS86adXWbq2A7LPQhmA dlcKHzVrZnsWX6xO0aNYb opmqbw8nfoifj Mbpze3iewc35gP25Z41fZ CddUWGuJIV8SCMvNRYfvM qscg2rhN0nQo1+RKtor1c te9deiDl4KuIa EDIrtyCnzDwkATE0a6JhZ z58V9SktZzol2ZsFti9ks 61kILpe9I2fOK7VNozRAK iqN5dAQfhOoK5 AFTqWcRxlU38oNJxQGnzW i5tuXhqyQndZU4lSTMqsv myLJMlhL4fGPUkgHXuhOp jFU2oBYQwoonw c267WqUgADW6LKJsoGZrL 6EkmN4mRhEbFOToYDKyM3 KmbUAuFObzG770IVmkYgR 1GXRuysVrG7Tn LUUypQooVjR4l1B8La9Nf 3MmrmmbMXJ7RHdvPMD2Nx HiNxXuClD6C9SgWqw2ZHE gnBdeOJ8tT5Qc LCLzhvlpohoawGX7AFKyD IKmhA18uLEkMGesHp2td9 Y9e180SNSvQYYsiS83Oe0 udDogMTBwdCBU xW8neelwj1nhfnjzRsYnJ LAcVRq2UZr1GOEffGcyZt AmZCI3IvR7CII5dXPipB4 psPikrvkowX6j Oyc+P60vxL9pZWU6OSW9d ichKRRbjyMcMP84ZF13K2 RyPjwvdGFibGU+PGRpdiB tmGgnJK1hLhIs j3xwh5CpVQymH5EpZRLcY WjkSbl1AQOvJTQ9kJP0hZ 2oOOLdJDbbu4U7lHH9B5U ldeKxkf2jc1dj UWPgTYhiK77euVWgt2Y1M EDufWX5DLGdiMreYkJmhR 93Oyc+URCmlDfiu7VsZte jj7yqc7nqnCw5 UjUrUSEulqWrvJgrIDG9h 9YuOy24T61qYOqcZQMrHE PuVPDpCMLfvCoaxp7btB1 wIi8+PGNvbCB3 dNU8dI2mTWNdSsS9GVhrY 576WtKdvBAhXuepv7jjr9 tdyLj5LlFpTQHcasOqnLk uWPC9t8ZpRm07 B83aBLrfZWSeMBRgZZSsU FZrrQlclv7edS8mCu1+PC 7vh5mozj81qQ11jXX+PHR gCFC3jOvkXCaq LGGbrR8vHQvcTmD4TWEyN dVfaK94hXGmEHfnOd1icB nslYuvQR4sJRNybjhml15 9EnUyk7nkGMAf hYAdSAadTQW9P04ol1H1I MVxJPDxSND9qBV7oN2gnC lnbjogbGVmdDsgdmVydGl sYSwjBCeuZ591 IHRvcDsnPlBhdGllbnQgT vInOHr9W6ZnRtd8LGWczM fyVB5dzGNlJCsfBh0zpDq fpGblEH3dPBOb kbgfy404GrFbl0qbSOEbr HTsLEfmXTZ0O81pb4F7OL NoPFXiPDP0jED4yC0smMi nbjogbGVmdDsg avHnoJnmTUtgJVkyB032T HRvcDsnPkJpcnRoIERhdG R4YV92RW77bRPbv6V5gGC 8O5WfTYBfnswr sxphhWB5TCNwCBBovZ97S f5uaYmkKm3gUDZuQJX1LP EdfSQbH8WljN5qVoZnKHR wEPLbX1FxfMFp OAzjH777LUkmIuV0BCUgr mJxB6XxPDZwpTduJjS3k1 C4Bw9SB4H3NK43PQ49lNF ut7H7tMX3C3Zl DCKnnroffwixsDQ2SIEyA FTkgI73Zi0dzNinOx9iRT PoOWJ5EQXaqPVuQ1BmbM5 yOiAjMDAwMDAw O7SllURxYRknU142JQkwI jQ9GRBrfjPzS7JbWEMewA plGoT8c2J9Dx2BKZw2DG2 3CE85sYPsi3R7 pGQ2M4ZuSSEebhcmpkjgx YR1ZIMbFCPzqY33Ak6qpV bkBs9dZKYbMRH2UKPicZV mV6MylF1hUgLp WLLjJTZkF0YkxCAvNOzaL 643YOhxIjL7GPBxjoKwN8 EiHHZruEiuFlQ6k5J2Si1 QGSVzWW49EOA6 dAH0LY50HZ45Y0HsWyecf GFibGU+PHRhYmxlIHdpZH RoPScxMDAlJyBzdHlsZT0 dPv3pKQQgJGYp uPjyoXUgNqJzt0osJOVpQ FcvYI7gtVkuF7NjpDI0NW Fzt9t4Hv54O45aK3FrjDZ +HYIieAU0vTE3 mF2hNiZiVuK0VVpaW309W lDlhFEmMjwvc5vbk7lylG c6FmY8OYQcrmEqlDxlXOU 1v3PsCl12N57t IHdpZHRoPSIxNSUiIHZhb Efhzv5yvJ9iGn0+PGNvbC H1kMH4mC4kXaMhWiO7FUz gE429WsDtoPJy Lrlkk7zer7ypfCy5UvIxW OCbzhTsiPvbSVD3r7ZqIw 33S0JegTtay9WgBig8fd3 0gEOgw8R7cYX8 I1IoKKTvtadeyMZhqRrvF A0aRFMmtcngCFNxtJ6wFA KaK1d0AaMtBjW3AFrmZ2W wgyT6BSAxqASg BKdiSPQ8L73bt7E9CQYfX ROlQOX6oWS6tN2ylBhecc ogbGVmdDsgdmVydGljYWw cIWbqS905IXVr oMevOZRtlW2vCBTanPYyr GuvLA3nCOQjezwqKhxHQ2 hBUklBUywgQVNITEVZPC9 9ZF45mDVaf8M1 sWC0N7LdAFFdhpukgqnpo MR8WFHnQVPzsE65iNTeCK puBr2ru6J7o661EFXmDUM kzZ75Ry9edHze AVGpdIXChW1sgojkq2bvg mcmIkOlKVXwTCu6SMa7AD VfkZqhOaFnOJR5QkK0DEZ 9xKHozH1kbFeb xfwfnS5nOux+MTIvMDEvM Ml7OwfzwVQ+EKOaOQU4hI tgFBklFBDklY6aLEQzB7x 4PbOwMrJ5QZrt S8WrCGKiygvrKc31xR9wV kFgNgE4CQqsR2FblnC2WO OwcKIgHTytCIZ5B67yj7Y 8PVHnPJFyXBM7 pUW3vL4tqUavxhztxRQzc DsgdmVydGljYWwtYWxpZ2 56XPMfdVnnFeI9MRbqKMC fID51QO94qVXd r6V9tPW5L3RoQEPmjjnuw dtquNF5TWIjYUVezR56uR QsBBsrPu1sy4X6d568DKR kAKZahU71Un2e iGrkFNRhlUZJsK3avcgrv 5rchnggOrUaXYZcAZj0XJ g7OVMqaFmuByEzDPC8IqH 8ZCL7bCFzpL2b wTdkyfsthT1mKhn+RmVtY JyoQY13GW32lZVgs1D9qO P4T3GhGAYotaxxxktmkKU 5VHXhBTMbiZ40 oTWqPHxvBv7hd0E2v641L UVrNXZdiP33Qb7qaBrgIF StvZCPtU9lkzofz8eogfq gIzAwMDAwMDt0 TLz1EZXaeItbYlZiPHT1N wH8ZEX8aFHybT3llUtbmo icmB8sChr+ZK2vngqwxbG 1CL85NU33G8Nz PjwvdGFibGU+PHRhYmxlI HdpZHRoPScxMDAlJyBzdH otDT4rVr7fXYBgHMHwbKw isTWtLoSea4ex SNZqJEgjLS1aqFjvL6Pjl ZX7DUIfh3z5Pd67J57eR2 JvdXA+DYUfyKE8gDB4jL1 wPzKnYcP7VVox J541NvIqvRSrPhzaw4bjk 5abyVr6TxPtBNWvzoTjiY kdPWQ4g7QpOn17D25uXUp pZHRoPSIyMCUi IEGvzCpghi3whG8rJw2+P HLcmIW2tDR0bV6zSmIwQe G8UUrhX747OfQjyZSmYjj eM69nJ3DugWO+ JTTtArf5DSOhaBpwOW5ne CMpLEmnIa5dNHL2WsPgKh HgPUupE5BpZAZeilttdww rlWY0ICVbQXNy fL45Gc3jmJbpJy4uYLTcU BE4UNRdiIJnA7OmkR3jEm QvPSZnUYIiX5YcoTNtTRy bD427YFaeLdC2 PBWrvtOgR5RpYSUivZbjM oY1o1M3Ky0GhWnwkQIuWZ 7qRfOgCWu6K9KhAid1BZJ ilOvyPB7mvOOv KOwcSl8prJhqxUjiBX1cD IVktvniw349KmUvl3tnDI DwyWAxWQcmURQ3L41fi0K 3LHJpWPWuQOI4 kTX6xZ6ntKwjoehxmXTne DsgdmVydGljYWwtYWxpZ2 19KCOleEqgMdNFDdk2P6H fVfp1VDRdvUxs KG0sqYYqKZpqUc4hhYqcc PswUD6tUWGxkoyxa533Jk Cjg9unFWOhoARiQOjcEAE 6F75pj6M2YMAt PJBdJDS5wDX6kT7xdHcjt jogbGVmdDsgdmVydGljYW bjDDmmD970AKPbyNgzVx7 OIvi4C5IoUoq8 GKYuhQybGY8kmKVxUOerA r6arNanvXjjOK0hELPuhe jvq622EpRrq8hbDXMboJR mZKsnJHM9H05n t1H8IMAwPPKsVUG9dQD4v F8srCnuueonpLFqcRwyni VcrXqdONujTZsfY133WHA vcDsnPlBheWVy OjwvdGQ+LG13yq59T7BkF aspPvg8LELfDAI8nBV7rW 1jHZCkCQzxb2U4jPD4P2F tazEyxc6sj3ow YXBz (more content not included)... Normal [facility] Discharge Instructionson Discharge Instructions [id number]# 1.00CD:127 Normal [facility] ED Clinical Summaryon 2021 ED Clinical Summary [place] [id number] ED Clinical Summary Person Information Name: HANNAH HENDRICKS/[facility] Age: 31 Years : 1990 Sex: Female Language: Mauritian PCP: Severiano Wallace III, DO Marital Status: Phone: [phone] Visit Id: Visit Reason: Back pain; BACK [...] 09/13/2021 23:57:29 09/13/2021 23:57:29 09/13/2021 23:57:29 ADDR[place]: [id number] [address] [facility] [id number] PHYS DOC NOTES: MEDICAL INFORMATION: Prescriptions Given: New Medications Printed Prescriptions acetaminophen-hydroco done ([place] 325 mg-5 mg oral tablet) 1 Tablets [...] 0. PATIENT EDUCATION INFORMATION: Instructions: Back Exercises, Avct-re-Dvgc Follow up: With: Address: When: Santana Vidal [address] [place] [address] [facility] (1) In 3 days 09/16/2021 Comments: Take the prednisone daily until you have completed the course you can use the Robaxin, [place] as prescribed as needed for pain. Use lidocaine patch daily. Please follow-up with your primary care doctor and orthopedic for further evaluation management. With: Address: When: Severiano Wallace [address] [place] [address] [facility] (1) In 3 days DIAGNOSIS: Sciatica Normal [facility] ED Note-Nursingon 09-14-2021 ED Note-Nursing pt given d/c instructions and educated on importance of follow up. pt educated on new medications. pt verbalized understanding of instructions and readiness for d/c. pt walked self ambulatory to waiting room in stable condition. pt driven home by boyfriend. Normal [facility] ED Note-Physicianon 09-15-19 ED Note-Physician [...] degenerative changes at L4-L5. Patient is given [place], Lidoderm, Norflex in addition to prednisone in [...] Given Lidoderm 5% Patch, 1 patch(es), TransDermal [place] 5/325 Tab, 1 tab(s), Oral orphenadrine 30 mg/mL Inj, 60 mg, IntraMuscular predniSONE 20 mg Tab, 60 mg, Oral Disposition Plan Discharge Prescription List Prescriptions Lidoderm 5% topical film, 1 patch(es), Topical, Daily [place] 325 mg-5 mg oral tablet, 1 tab(s), Oral, q6hr, PRN predniSONE 50 mg Tab, 50 mg= 1 tab(s), Oral, Daily Robaxin 500 mg Tab, 500 mg= 1 tab(s), Oral, TID Follow-up With When Contact Information Santana Vidal In 3 days 09/16/2021 EDT [address] [place] [address] [facility] (1) Additional Instructions: Take the prednisone daily until you have completed the course you can use the Robaxin, [place] as prescribed as nee (more content not included)... Normal [facility] Comment on above: Result Comment: Elec tronically Signed By: Moon Manuel DO\\.br\\Date and Time Signed: 09/14/21 05:27 EDT ED [...] the exerc (more content not included)... Normal [facility] ED Patient Summaryon 022 ED Patient Summary [address] [address] Patient Discharge Instructions Person Information Name: HANNAH HENDRICKS Age: 31 Years Arrival Date: 09/13/2021 20:29:38 Discharge Diagnosis: Sciatica Primary Care Physician: Severiano Wallace III, DO Provider Information Primary Provider: Moon Manuel DO Advanced Equipment Installer:None The exam and treatment you received in the Emergency Department were for an urgent problem and are not intended as complete care. It is important that you follow up with a doctor, nurse practitioner, or physician?s assistant distribution manager for ongoing care. If your symptoms become worse or you do not improve as expected and you are unable to reach your usual health care provider, you should return to the Emergency Department. We are available 24 hours a day. HANNAH HENDRICKS has been given the following list of patient education materials, prescriptions and follow-up instructions: Follow-up Instructions: With: Address: When: Santana Vidal [address] [place] [address] [facility] () In 3 days 09/16/2021 Comments: Take the prednisone daily until you have completed the course you can use the Robaxin, [place] as prescribed as needed for pain. Use lidocaine patch daily. Please follow-up with your primary care doctor and orthopedic for further evaluation management. With: Address: When: Severiano Wallace [address] [place] [address] [facility] (1) In 3 days In the event that this physician does not participate in your insurance network, please consult with your insurance company to find a nearby participating provider. Patient Education Materials: Back Exercises, Qoko-ep-Czuz A MESSAGE TO ALL PATIENTS REGARDING OPIOIDS PRESCRIPTION OPIOIDS: WHAT YOU NEED TO KNOW Prescription opioids can be used to help relieve hyuwsfhr-zt-gybjai pain and are often prescribed following a [...] the to (more content not included)... Normal [facility] RAD - Preliminary Cat Scan R eporton 09-14-2021 RAD - Preliminary Cat Scan Report [id number]# 1.00CD:127 Normal [facility] U BetaHcg Qualon 09-14-2021 HCG.beta subunit (U) [Moles/Vol] Negative Normal [facility] Comment on above: Performed By: #### 2 [id number] #### [facility] [address] [place] [address] Consent for Treatmenton Consent for Treatment [id number] .[id number]:127 Normal [facility] SEROLOGYOrdered By: Pascale Noe on 09-13-2021 HCG.beta subunit (U) [Moles/Vol] Negative Normal [facility] [place] [facility] Vital Signs Date Time Vital Sign Value Performing Clinician Faci lity 01-11-2025 09:59-0400 Body mass index (BMI) [Ratio] 34.7 kg/m2 Dr. Thomas Salinas MD Work Phone: [facility] 01-11-2025 09:59-0400 Body weight 97.[address] Thomas owens MD Work Phone: [facility] 01-11-2025 09:59-0400 Diastolic blood pressure 75 mm[Hg] Dr. Thomas Salinas MD Work Phone: [facility] 01-11-2025 09:59-0400 Systolic blood pressure 118 mm[Hg] Dr. Thomas Salinas MD Work Phone: [facility] 12-28-2024 09:50-0400 Body height 167.[address] Thomas owens MD Work Phone: [facility] 12-28-2024 09:45-0400 Body mass index (BMI) [Ratio] 33.9 kg/m2 Dr. Thomas Salinas MD Work Phone: [facility] 12-28-2024 09:45-0400 Body weight 95.[address] Thomas owens MD Work Phone: [facility] 12-28-2024 09:45-0400 Diastolic blood pressure 72 mm[Hg] Dr. Thomas Salinas MD Work Phone: [facility] 12-28-2024 09:45-0400 Systolic blood pressure 118 mm[Hg] Dr. Thomas Salinas MD Work Phone: [facility] 12-15-2024 09:22-0400 Body height 167.[address] Thomas owens MD Work Phone: [facility] 12-15-2024 09:22-0400 Body mass index (BMI) [Ratio] 33.1 kg/m2 Dr. Thomas Salinas MD Work Phone: 9(291)[phone] [place] [address] 12-15-2024 09:22-0400 Body weight 93.[address] Thomas owens MD Work Phone: [facility] 12-15-2024 09:22-0400 Diastolic blood pressure 69 mm[Hg] Dr. Thomas Salinas MD Work Phone: [facility] 12-15-2024 09:22-0400 Systolic blood pressure 106 mm[Hg] Dr. Thomas Salinas MD Work Phone: [facility] 12-01-2024 08:19-0400 Body height 167.[address] Thomas owens MD Work Phone: [facility] 12-01-2024 08:19-0400 Body mass index (BMI) [Ratio] 33.3 kg/m2 Dr. Thomas Salinas MD Work Phone: [facility] 12-01-2024 08:19-0400 Body weight 93.[address] Thomas owens MD Work Phone: [facility] 12-01-2024 08:19-0400 Diastolic blood pressure 70 mm[Hg] Dr. Thomas Salinas MD Work Phone: [facility] 12-01-2024 08:19-0400 Systolic blood pressure 112 mm[Hg] Dr. Thomas Salinas MD Work Phone: [facility] 11-09-2024 08:55-0400 Body height 167.[address] Thomas owens MD Work Phone: [facility] 11-09-2024 08:55-0400 Body mass index (BMI) [Ratio] 32.6 kg/m2 Dr. Thomas Salinas MD Work Phone: [facility] 11-09-2024 08:55-0400 Body weight 91.[address] Thomas owens MD Work Phone: [facility] 11-09-2024 08:55-0400 Diastolic blood pressure 71 mm[Hg] Dr. Thomas Salinas MD Work Phone: [facility] 11-09-2024 08:55-0400 Systolic blood pressure 104 mm[Hg] Dr. Thomas Salinas MD Work Phone: [facility] 10-12-2024 15:54-0400 Body height 167.[address] Thomas owens MD Work Phone: [facility] 10-12-2024 15:54-0400 Body mass index (BMI) [Ratio] 31.5 kg/m2 Dr. Thomas Salinas MD Work Phone: [facility] 10-12-2024 15:54-0400 Body weight 88.[address] Thomas owens MD Work Phone: [facility] 10-12-2024 15:54-0400 Diastolic blood pressure 75 mm[Hg] Dr. Thomas Salinas MD Work Phone: [facility] 10-12-2024 15:54-0400 Systolic blood pressure 119 mm[Hg] Dr. Thomas Salinas MD Work Phone: [facility] 09-14-2024 08:59-0400 Body height 167.[address] Thomas owens MD Work Phone: [facility] 09-14-2024 08:59-0400 Body mass index (BMI) [Ratio] 30.7 kg/m2 Dr. Thomas Salinas MD Work Phone: [facility] 09-14-2024 08:59-0400 Body weight 86.[address] Thomas owens MD Work Phone: [facility] 09-14-2024 08:59-0400 Diastolic blood pressure 71 mm[Hg] Dr. Thomas Salinas MD Work Phone: [facility] 09-14-2024 08:59-0400 Systolic blood pressure 106 mm[Hg] Dr. Thomas Salinas MD Work Phone: [facility] 08-17-2024 08:32-0400 Body mass index (BMI) [Ratio] 29.7 kg/m2 Dr. Thomas Salinas MD Work Phone: [facility] 08-17-2024 08:32-0400 Body weight 83.[address] Thomas owens MD Work Phone: [facility] 08-17-2024 08:32-0400 Diastolic blood pressure 68 mm[Hg] Dr. Thomas Salinas MD Work Phone: [facility] 08-17-2024 08:32-0400 Systolic blood pressure 104 mm[Hg] Dr. Thomas Salinas MD Work Phone: [facility] 08-05-2024 09:52-0400 Body mass index (BMI) [Ratio] 29.5 kg/m2 Dr. Thomas Salinas MD Work Phone: [facility] 08-05-2024 09:52-0400 Body weight [address] Thomas owens MD Work Phone: [facility] 08-05-2024 09:52-0400 Diastolic blood pressure 78 mm[Hg] Dr. Thomas Salinas MD Work Phone: [facility] 08-05-2024 09:52-0400 Systolic blood pressure 126 mm[Hg] Dr. Thomas Salinas MD Work Phone: [facility] 07-20-2024 13:59-0400 Body height 167.[address] Royce Chapin DO Work Phone: [facility] 07-20-2024 13:58-0400 Body mass index (BMI) [Ratio] 29.4 kg/m2 Dr. Royce Chapin DO Work Phone: 9(197)[phone] [place] [address] 07-20-2024 13:58-0400 Body weight 82.[address] Royce Chapin DO Work Phone: [facility] 07-20-2024 13:58-0400 Diastolic blood pressure 79 mm[Hg] Dr. Royce Chapin DO Work Phone: [facility] 07-20-2024 13:58-0400 Systolic blood pressure 117 mm[Hg] Dr. Royce Chapin DO Work Phone: [facility] 04-14-2024 14:22-0500 Body height 167.[address] Royce Chapin DO Work Phone: [facility] 04-14-2024 14:19-0500 Body mass index (BMI) [Ratio] 28.8 kg/m2 Dr. Royce Chapin DO Work Phone: [phone])[phone] [place] [address] 04-14-2024 14:19-0500 Body weight 80.[address] Royce Chapin DO Work Phone: [facility] 04-14-2024 14:19-0500 Diastolic blood pressure 78 mm[Hg] Dr. Royce Chapin DO Work Phone: [facility] 04-14-2024 14:19-0500 Systolic blood pressure 114 mm[Hg] Dr. Royce Chapin DO Work Phone: [facility] 04-01-2024 20:00-0500 Body temperature 98 [degF] Dr. Royce Chapin DO Work Phone: [facility] 04-01-2024 20:00-0500 Diastolic blood pressure 68 mm[Hg] Dr. Royce Chapin DO Work Phone: [facility] 04-01-2024 20:00-0500 Heart rate 79 /min Dr. Royce Chapin DO Work Phone: 6(881)112-868931 [place] [address] 04-01-2024 20:00-0500 Respiratory rate 18 /min Dr. Royce Chapin DO Work Phone: [phone] [place] [address] 04-01-2024 20:00-0500 SaO2% (BldA) [Mass fraction] 100 % Dr. Royce Chapin DO Work Phone: [facility] 04-01-2024 20:00-0500 Systolic blood pressure 112 mm[Hg] Dr. Royce Chapin DO Work Phone: [facility] 04-01-2024 16:16-0500 Body mass index (BMI) [Ratio] 29.2 kg/m2 Dr. Royce Chapin DO Work Phone: [facility] 04-01-2024 16:16-0500 Body weight 82.[address] Royce Chapin DO Work Phone: [facility] 07-27-2023 11:28-0400 Body temperature 97.7 [degF] Diana Reids SPECIAL SERVICES SUPERVISOR.DIRECTOR OF SLEEP Work Phone: [facility] 07-27-2023 11:28-0400 Body weight 73.03 kg Diana Reids SPECIAL SERVICES SUPERVISOR.DIRECTOR OF SLEEP Work Phone: [facility] 07-27-2023 11:28-0400 Diastolic blood pressure 69 mm[Hg] Diana Reids SPECIAL SERVICES SUPERVISOR.DIRECTOR OF SLEEP Work Phone: [facility] 07-27-2023 11:28-0400 Heart rate 98 /min Diana Reids SPECIAL SERVICES SUPERVISOR.DIRECTOR OF SLEEP Work Phone: [facility] 07-27-2023 11:28-0400 Respiratory rate 18 /min Diana Reids SPECIAL SERVICES SUPERVISOR.DIRECTOR OF SLEEP Work Phone: [facility] 07-27-2023 11:28-0400 Systolic blood pressure 117 mm[Hg] Diana Reids SPECIAL SERVICES SUPERVISOR.DIRECTOR OF SLEEP Work Phone: [facility] 02-06-2023 08:40-0400 Body height 165.1 cm Konstantin Kirkland MD Work Phone: [facility] 02-06-2023 08:40-0400 Body weight 73.94 kg Konstantin Kirkland MD Work Phone: [facility] 02-06-2023 08:40-0400 Diastolic blood pressure 73 mm[Hg] Konstantin Kirkland MD Work Phone: [facility] 02-06-2023 08:40-0400 Heart rate 101 /min Konstantin Kirkland MD Work Phone: [facility] 02-06-2023 08:40-0400 SaO2% (BldA) [Mass fraction] 100 % Konstantin Kirkland MD Work Phone: [facility] 02-06-2023 08:40-0400 Systolic blood pressure 106 mm[Hg] Konstantin Kirkland MD Work Phone: [facility] 04-04-2022 13:49-0500 Body temperature 98.1 [degF] Konstantin Kirkland MD Work Phone: [facility] 04-04-2022 13:49-0500 Body weight 77.56 kg Konstantin Kirkland MD Work Phone: [facility] 04-04-2022 13:49-0500 Diastolic blood pressure 71 mm[Hg] Konstantin Kirkland MD Work Phone: [facility] 04-04-2022 13:49-0500 Heart rate 82 /min Konstantin Kirkland MD Work Phone: [facility] 04-04-2022 13:49-0500 SaO2% (BldA) [Mass fraction] 100 % Konstantin Kirkland MD Work Phone: [facility] 04-04-2022 13:49-0500 Systolic blood pressure 124 mm[Hg] Konstantin Kirkland MD Work Phone: [facility] 03-19-2022 13:09-0500 Body height 165.1 cm Pacc 3 Work Phone: [facility] 03-19-2022 13:09-0500 Body temperature 97.9 [degF] Pacc 3 Work Phone: [facility] 03-19-2022 13:09-0500 Body weight 77.56 kg Pacc 3 Work Phone: [facility] 03-19-2022 13:09-0500 Diastolic blood pressure 73 mm[Hg] Pacc 3 Work Phone: [facility] 03-19-2022 13:09-0500 Heart rate 65 /min Pacc 3 Work Phone: [facility] 03-19-2022 13:09-0500 Respiratory rate 16 /min Pacc 3 Work Phone: [facility] 03-19-2022 13:09-0500 SaO2% (BldA) [Mass fraction] 97 % Pacc 3 Work Phone: [facility] 03-19-2022 13:09-0500 Systolic blood pressure 111 mm[Hg] Pacc 3 Work Phone: [facility] 03-05-2022 08:55-0500 Body height 165.1 cm Konstantin Kirkland MD Work Phone: [facility] 03-05-2022 08:55-0500 Body weight 81.06 kg Konstantin Kirkland MD Work Phone: [facility] 03-05-2022 08:55-0500 Diastolic blood pressure 78 mm[Hg] Konstantin Kirkland MD Work Phone: [facility] 03-05-2022 08:55-0500 Heart rate 96 /min Konstantin Kirkland MD Work Phone: [facility] 03-05-2022 08:55-0500 SaO2% (BldA) [Mass fraction] 98 % Konstantin Kirkland MD Work Phone: [facility] 03-05-2022 08:55-0500 Systolic blood pressure 118 mm[Hg] Konstantin Kirkland MD Work Phone: [facility] 02-05-2022 11:14-0400 Body height 165.1 cm Konstantin Kirkland MD Work Phone: [facility] 02-05-2022 11:14-0400 Body temperature 98.4 [degF] Konstantin Kirkland MD Work Phone: [facility] 02-05-2022 11:14-0400 Body weight 79.74 kg Konstantin Kirkland MD Work Phone: [facility] 02-05-2022 11:14-0400 Diastolic blood pressure 78 mm[Hg] Konstantin Kirkland MD Work Phone: [facility] 02-05-2022 11:14-0400 Heart rate 94 /min Konstantin Kirkland MD Work Phone: [facility] 02-05-2022 11:14-0400 Systolic blood pressure 131 mm[Hg] Konstantin Kirkland MD Work Phone: [facility] 12-06-2021 13:52-0400 Body height 165.1 cm Pacc 3 Work Phone: [facility] 12-06-2021 13:52-0400 Body temperature 97.3 [degF] Pacc 3 Work Phone: [facility] 12-06-2021 13:52-0400 Body weight 79.02 kg Pacc 3 Work Phone: [facility] 12-06-2021 13:52-0400 Diastolic blood pressure 76 mm[Hg] Pacc 3 Work Phone: [facility] 12-06-2021 13:52-0400 Heart rate 73 /min Pacc 3 Work Phone: [facility] 12-06-2021 13:52-0400 Respiratory rate 16 /min Pacc 3 Work Phone: [facility] 12-06-2021 13:52-0400 SaO2% (BldA) [Mass fraction] 100 % Pacc 3 Work Phone: [facility] 12-06-2021 13:52-0400 Systolic blood pressure 111 mm[Hg] Pacc 3 Work Phone: [facility] 12-04-2021 14:12-0400 Body height 165.1 cm Konstantin Kirkland MD Work Phone: [facility] 12-04-2021 14:12-0400 Body temperature 97.59 [degF] Konstantin Kirkland MD Work Phone: [facility] 12-04-2021 14:12-0400 Body weight 79.2 kg Konstantin Kirkland MD Work Phone: [facility] 12-04-2021 14:12-0400 Diastolic blood pressure 75 mm[Hg] Konstantin Kirkland MD Work Phone: [facility] 12-04-2021 14:12-0400 Heart rate 67 /min Konstantin Kirkland MD Work Phone: [facility] 12-04-2021 14:12-0400 Systolic blood pressure 119 mm[Hg] Konstantin Kirkland MD Work Phone: [facility] 10-11-2021 09:30-0400 Body height 165.1 cm Feng Wright MD Work Phone: [facility] 10-11-2021 09:30-0400 Body weight 77.97 kg Feng Wright MD Work Phone: [facility] 10-11-2021 09:30-0400 Heart rate 106 /min Feng Wright MD Work Phone: [facility] 10-11-2021 09:30-0400 SaO2% (BldA) [Mass fraction] 98 % Feng Wright MD Work Phone: [facility] 09-19-2021 11:31-0400 Body height 166.4 cm Yana Ziol SPECIAL SERVICES SUPERVISOR.DIRECTOR OF SLEEP Work Phone: [facility] 09-19-2021 11:31-0400 Body temperature 97.9 [degF] Yana Ziol SPECIAL SERVICES SUPERVISOR.DIRECTOR OF SLEEP Work Phone: [facility] 09-19-2021 11:31-0400 Body weight 78.47 kg Yana Ziol SPECIAL SERVICES SUPERVISOR.DIRECTOR OF SLEEP Work Phone: [facility] 09-19-2021 11:31-0400 Diastolic blood pressure 80 mm[Hg] Yana Ziol SPECIAL SERVICES SUPERVISOR.DIRECTOR OF SLEEP Work Phone: [facility] 09-19-2021 11:31-0400 Systolic blood pressure 122 mm[Hg] Yana Ziol SPECIAL SERVICES SUPERVISOR.DIRECTOR OF SLEEP Work Phone: [facility] 09-13-2021 23:55-0400 Body temperature 98.24 [degF] Kaylinn Dokken [facility] 09-13-2021 23:55-0400 Diastolic blood pressure 70 mm[Hg] Kaylinn Dokken [facility] 09-13-2021 23:55-0400 Heart rate 70 /min Kaylinn Dokken [facility] 09-13-2021 23:55-0400 Mean blood pressure 90 mm[Hg] Kaylinn Dokken [facility] 09-13-2021 23:55-0400 Respiratory rate 17 /min Kaylinn Dokken [facility] 09-13-2021 23:55-0400 SaO2% (BldA) [Mass fraction] 99 % Kaylinn Dokken [facility] 09-13-2021 23:55-0400 Systolic blood pressure 130 mm[Hg] Kaylinn Dokken [facility] 09-13-2021 20:33-0400 Body temperature 98.06 [degF] Kaylinn Dokken [facility] 09-13-2021 20:33-0400 Diastolic blood pressure 90 mm[Hg] Kaylinn Dokken [facility] 09-13-2021 20:33-0400 Heart rate 110 /min Altheaylinn Dokken [facility] 09-13-2021 20:33-0400 Respiratory rate 15 /min Altheaylinn Dokken [facility] 09-13-2021 20:33-0400 SaO2% (BldA) [Mass fraction] 98 % Kristianinn Dokken [facility] 09-13-2021 20:33-0400 Systolic blood pressure 135 mm[Hg] Altheaylinn Dokken [facility] Encounters Encounter Date Encounter Type Care Provider Facility Start: 02-08-2025 ambulatory Maryann Mcfarlandty:[facility] Start: 02-02-2025 End: 02-02-2025 ambulatory Maryann Bajwa Facility:[facility] Start: 02-01-2025 ambulatory Ximena Mcghee Facility :[facility] Start: 02-01-2025 End: 02-01-2025 ambulatory Ximena Mcghee Facility:[facility] Start: 01-26-2025 End: 01-26-2025 ambulatory Isabel Marino Facility:[facility] Start: 01-11-2025 End: 01-11-2025 Patient encounter procedure Ximena Mcghee CNM -[facility] Work Phone: Start: 01-11-2025 End: 01-11-[address] Thomas Salinas MD Work Phone: -[facility] Start: 12-28-2024 End: 12-28-2024 Patient encounter procedure Barbie Mitchell SENIOR PRODUCTION SUPERVISOR-C -[facility] Work Phone: Start: 12-28-2024 End: 12-28-[address] Thomas Salinas MD Work Phone: [facility] Start: 12-15-2024 End: 12-15-[address] Maryann Bajwa DO -[facility] Work Phone: Start: 12-15-2024 End: 12-15-[address] Thomas Salinas MD Work Phone: [facility] Start: 12-01-2024 End: 12-01-2024 Patient encounter procedure Barbie Mitchell SENIOR PRODUCTION SUPERVISOR-C -[facility] Work Phone: Start: 12-01-2024 End: 12-01-[address] Thomas Salinas MD Work Phone: [facility] Start: 12-01-2024 End: 12-01-2024 ambulatory Ximena Mcghee Facility:[facility] Start: 11-09-2024 End: 11-09-2024 Patient encounter procedure Ximena Mcghee CN -[facility] Work Phone: Start: 11-09-2024 End: 11-09-[address] Thomas Salinas MD Work Phone: [facility] Start: 10-12-2024 End: 10-12-[address] Isabel Marino MD -[facility] Work Phone: Start: 10-12-2024 End: 10-12-[address] Thomas Salinas MD Work Phone: [facility] Start: 10-08-2024 End: 10-08-[address] Thomas Salinas MD Work Phone: -[facility] Start: 10-08-2024 End: 10-08-[address] Isabel Marino MD -[facility] Start: 10-08-2024 End: 10-08-2024 ambulatory THOMAS SALINAS [facility] Start: 10-08-2024 End: 10-08-2024 ambulatory Isabel Marino Facility:[facility] Start: 09-14-2024 End: 09-14-2024 Patient encounter procedure Ximena Mcghee CNM -[facility] Work Phone: Start: 09-14-2024 End: 09-14-[address] Thomas Salinas MD Work Phone: [facility] Work Phone: Start: 08-17-2024 End: 08-17-2024 Patient encounter procedure Barbie Mitchell SENIOR PRODUCTION SUPERVISOR-C -[facility] Work Phone: Start: 08-17-2024 End: 08-17-2024 ambulatory Barbie Mitchell SENIOR PRODUCTION SUPERVISOR Facility:[facility] Start: 08-05-2024 End: 08-05-2024 Patient encounter procedure Barbie Mitchell SENIOR PRODUCTION SUPERVISOR-C -[facility] Work Phone: Start: 08-05-2024 End: 08-05-2024 ambulatory Barbie Mitchell SENIOR PRODUCTION SUPERVISOR Facility:[facility] Start: 07-31-2024 End: 07-31-[address] Maryann Bajwa DO -Lab [facility] Start: 07-31-2024 End: 07-31-2024 [facility] Start: 07-20-2024 End: 07-20-[address] Royce Chapin DO Work Phone: [facility] Work Phone: Start: 07-20-2024 End: 07-20-[address] Maryann Bajwa DO -Laboratory, Specimen Work Phone: Start: 07-20-2024 End: 07-20-[address] Maryann Bajwa DO -[facility] Work Phone: Start: 07-20-2024 End: 07-20-2024 ambulatory Maryann Bajwa [facility] Start: 07-20-2024 End: 07[facility] Start: 07-03-2024 Non-patient / Non-visit Renay gu RN -[facility] Work Phone: Start: 07-03-2024 ambulatory Renay Larose Facility :[facility] Start: 07-02-2024 End: 07-02-[address] Royce Chapin DO Work Phone: [facility] Work Phone: Start: 07-02-2024 End: 07-02-[address] Maryann Bajwa DO -Ultrasound, [facility] Work Phone: Start: 07-02-2024 End: 07-02-2024 ambulatory Maryann Bajwa Facility:[facility] Start: 06-27-2024 End: 06-27-[address] Royce Chapin DO Work Phone: [facility] Work Phone: Start: 06-27-2024 End: 06-27-[address] Maryann Vande Velde DO -Laboratory Work Phone: Start: 06-27-2024 End: 06-27-2024 ambulatory Maryann Bajwa Facility:[facility] Start: 06-25-2024 End: 06-25-[address] Royce Chapin DO Work Phone: [facility] Work Phone: Start: 06-25-2024 End: 06-25-[address] Maryann Ricahrds, [facility] Work Phone: Start: 06-25-2024 End: 06-25-[address] Royce Chapin DO Work Phone: [facility] Work Phone: Start: 06-25-2024 End: 06-25-[address] Maryann DEVILab, [facility] Start: 06-25-2024 End: 06-25-2024 ambulatory Maryann Bajwa Facility:[facility] Start: 06-18-2024 End: 06-18-[address] Royce Chapin DO Work Phone: [facility] Work Phone: Start: 06-18-2024 End: 06-18-[address] Maryann DEVILab, [facility] Start: 06-18-2024 End: 06-18-2024 ambulatory Maryann Bajwa Facility:[facility] Start: 06-16-2024 End: 06-16-[address] Royce Chapin DO Work Phone: [facility] Work Phone: Start: 06-16-2024 End: 06-16-[address] Maryann DEVILab, [facility] Start: 06-16-2024 End: 06-16-2024 ambulatory Maryann Bajwa Facility:[facility] Start: 04-14-2024 End: 04-14-2024 Patient encounter procedure Barbie Mitchell SENIOR PRODUCTION SUPERVISOR-C -[facility] Work Phone: Start: 04-14-2024 End: 04-14-2024 ambulatory Barbie Mitchell SENIOR PRODUCTION SUPERVISOR [facility] Start: 04-14-2024 End: 04-14-2024 ambulatory Barbie Mitchell SENIOR PRODUCTION SUPERVISOR Facility:[facility] Start: 04-06-2024 End: 04-06-[address] Isabel Marino MD -Lab, [facility] Start: 04-06-2024 End: 04-06-2024 ambulatory Isabel Marino Facility:[facility] Start: 04-03-2024 End: 04-03-[address] Isabel Marino MD -Lab, [facility] Start: 04-03-2024 End: 04-03-2024 ambulatory Isabel Marino Facility:[facility] Start: 04-01-2024 End: 04-01-2024 Emergency department patient visit Dr. Royce Chapin DO -Emergency Department Work Phone: Start: 07-29-2023 End: 07-29-2023 ambulatory THOMAS SALINAS Facility:[facility] Start: 07-27-2023 End: 07-27-2023 ambulatory THOMAS SALINAS Facility:[facility] Start: 07-27-2023 End: 07-27-2023 Office outpatient visit 15 minutes Diana Trejo APRN.CNP Work Phone: [facility] Comment on above: Diarrhea, unspecifie d type (Primary Dx) Start: 05-16-2023 End: 05-16-2023 Emergency department patient visit THOMAS SALINAS Facility:[facility] Start: 03-02-2023 ambulatory THOMAS SALINAS Fa cility:[facility] Start: 03-02-2023 End: 03-02-2023 Subsequent hospital visit by physician Mri [facility] (1.5t) Radiology Comment on above: Spinal stenosis of l umbar region with neurogenic claudication [M48.062] Start: 02-06-2023 End: 02-06-2023 ambulatory THOMAS F BRYANTETTER Facility:[facility] Start: 02-06-2023 End: 02-06-2023 Patient encounter procedure Konstantin Kirkland MD Work Phone: Neurosurgery Comment on above: Radiculopathy, lumba r region (Primary Dx); Spinal stenosis of lumbar region with neurogenic claudication Start: 12-31-2022 End: 12-31-2022 ambulatory Nehemias Suarez PT, DPT Work Phone: [facility] Comment on above: Chronic bilateral lo w back pain with right-sided sciatica (Primary Dx) Start: 11-28-2022 End: 11-28-2022 ambulatory Nehemias Suarez PT, DPT Work Phone: [facility] Outpatient Physical Therapy Comment on above: Chronic bilateral lo w back pain with right-sided sciatica (Primary Dx) Start: 10-24-2022 End: 10-25-2022 ambulatory THOMAS F AVIVAER Facility:[facility] Start: 09-12-2022 End: 09-13-2022 ambulatory THOMAS F BRYANTEGAYLAER Facility:[facility] Start: 09-12-2022 End: 09-13-2022 ambulatory Nehemias Suarze PT, DPT Work Phone: [facility] Outpatient Physical Therapy Comment on above: Chronic bilateral lo w back pain with right-sided sciatica (Primary Dx) Start: 08-29-2022 End: 08-30-2022 ambulatory THOMAS F AVIVAER Facility:[facility] Start: 08-27-2022 ambulatory Konstantin Kirkland MD Work Phone: [facility] Start: 08-27-2022 Letter encounter Konstantin post MD Work Phone: [facility] [place] Comment on above: Jury Duty Letter Start: 08-15-2022 End: 08-16-2022 ambulatory Nehemias Suarez PT, DPT Work Phone: [facility] Outpatient Physical Therapy Comment on above: Chronic bilateral lo w back pain with right-sided sciatica (Primary Dx) Start: 07-30-2022 End: 07-30-2022 ambulatory Konstantin Kirkland MD Work Phone: [facility] [place] Comment on above: Radiculopathy, lumba r region (Primary Dx) Start: 07-30-2022 End: 07-30-2022 Telemedicine consultation with patient Konstantin Kirkland MD Work Phone: [facility] Start: 07-16-2022 End: 07-16-2022 ambulatory THOMAS SALINAS Facility:[facility] Start: 07-16-2022 End: 07-16-2022 ambulatory Nehemias Suarez PT, DPT Work Phone: [facility] Outpatient Physical Therapy Comment on above: Chronic bilateral lo w back pain with right-sided sciatica (Primary Dx) Start: 07-11-2022 End: 07-11-2022 ambulatory [facility] Work Phone: Start: 07-11-2022 End: 07-11-2022 Patient encounter procedure [facility]-Ultrasound, [facility] Start: 07-09-2022 End: 07-09-2022 ambulatory NEHEMIAS SUAREZ Facility:[facility] Start: 07-09-2022 End: 07-09-2022 ambulatory Nehemias Suarez PT, DPT Work Phone: [facility] Outpatient Physical Therapy Comment on above: Chronic bilateral lo w back pain with right-sided sciatica (Primary Dx) Start: 07-02-2022 End: 07-02-2022 ambulatory KONSTANTIN KIRKLAND Facility:[facility] Start: 06-25-2022 End: 06-25-2022 ambulatory NEHEMIAS SUAREZ Facility:[facility] Start: 06-25-2022 End: 06-25-2022 ambulatory Nehemias Suarez PT, DPT Work Phone: [facility] Outpatient Physical Therapy Comment on above: Chronic bilateral lo w back pain with right-sided sciatica (Primary Dx) Start: 06-18-2022 End: 06-18-2022 ambulatory NEHEMIAS SUAREZ Facility:[facility] Start: 06-11-2022 End: 06-11-2022 ambulatory KONSTANTINLEIGHA KIRKLAND Facility:[facility] Start: 06-11-2022 End: 06-11-2022 ambulatory [facility] Outpatient Physical Therapy Comment on above: Chronic bilateral lo w back pain with right-sided sciatica (Primary Dx) Start: 06-04-2022 End: 06-04-2022 ambulatory THOMAS Dayne BRAD Facility:[facility] Start: 05-30-2022 End: 05-30-2022 ambulatory THOMAS Dayne BRAD Facility:[facility] Start: 05-30-2022 End: 05-30-2022 ambulatory Nehemias Suarez PT, DPT Work Phone: [facility] Outpatient Physical Therapy Comment on above: Chronic bilateral lo w back pain with right-sided sciatica (Primary Dx) Start: 05-28-2022 End: 05-28-2022 [facility] Start: 05-21-2022 End: 05-21-2022 ambulatory THOMAS Dayne BRAD Facility:[facility] Start: 05-21-2022 End: 05-21-2022 ambulatory Nehemias Suarez PT, DPT Work Phone: [facility] Outpatient Physical Therapy Comment on above: Chronic bilateral lo w back pain with right-sided sciatica (Primary Dx) Start: 05-07-2022 End: 05-07-2022 ambulatory [facility] Outpatient Physical Therapy Comment on above: Chronic bilateral lo w back pain with right-sided sciatica (Primary Dx) Tail bone pain Start: 05-07-2022 Letter encounter Konstantin post MD Work Phone: Neurosurgery Comment on above: [employer] letter Start: 04-30-2022 End: 04-30-2022 ambulatory [facility] Outpatient Physical Therapy Comment on above: Chronic bilateral lo w back pain with right-sided sciatica (Primary Dx) Start: 04-25-2022 End: 04-25-2022 ambulatory THOMAS BARD Facility:[facility] Start: 04-25-2022 End: 04-25-2022 ambulatory Konstantin Kirkland MD Work Phone: Neurosurgery Comment on above: Radiculopathy, lumba r region (Primary Dx) Start: 04-25-2022 End: 04-25-2022 Telemedicine consultation with patient Konstantin Kirkland MD Work Phone: [facility] Start: 04-20-2022 End: 04-20-2022 ambulatory Nehemias Suarez PT, DPT Work Phone: [facility] Outpatient Physical Therapy Comment on above: Radiculopathy, lumba r region; Chronic bilateral low back pain with right-sided sciatica Start: 04-04-2022 End: 04-04-2022 ambulatory THOMAS JENSENNIKO Facility:[facility] Start: 04-04-2022 End: 04-04-2022 Patient encounter procedure Konstantin Kirkland MD Work Phone: Neurosurgery Comment on above: Radiculopathy, lumba r region (Primary Dx) Start: 03-29-2022 Telephone encounter Konstantin shaw MD Work Phone: Neurology Comment on above: Post Op Symptoms Start: 03-21-2022 ambulatory Konstantin Kirkland MD Work Phone: [facility] [place] Comment on above: [employer] disibility paperwork Start: 03-20-2022 End: 03-20-2022 ambulatory KONSTANTIN KIRKLAND Facility:[facility] Start: 03-19-2022 Encounter for other preprocedural examination [facility] Start: 03-19-2022 End: 03-19-2022 Admission to establishment [place] [id number] Work Phone: [facility] Start: 03-19-2022 End: 03-20-2022 [facility] Anesthesia Comment on above: Pre-op [...] End: 03-16-2022 Subsequent hospital visit by physician [facility] (1.5t) Radiology Comment on above: Spinal stenosis of l umbar region with neurogenic claudication [M48.062] Start: 03-14-2022 Refill Konstantin Kirkland MD Work Phone: Neurosurgery Comment on above: Refill Request Start: 03-12-2022 Telephone encounter Konstantin shaw MD Work Phone: Neurology Comment on above: Orders Start: 03-11-2022 ambulatory Ximena Lewis RN NURS [employer] Comment on above: Back Pain Start: 03-05-2022 End: 03-05-2022 Patient encounter procedure Konstantin Kirkland MD Work Phone: [facility] [place] Comment on above: Lumbar radiculopathy (Primary Dx) Start: 02-19-2022 Telephone encounter Konstantin shaw MD Work Phone: Neurology Comment on above: Medication Problem Start: 02-08-2022 ambulatory Konstantin Kirkland MD Work Phone: [facility] Start: 02-08-2022 Letter encounter Konstantin post [...] Start: 12-19-2021 End: 12-19-2021 ambulatory KONSTANTIN KIRKLAND Facility:[facility] Start: 12-10-2021 ambulatory Ashwini OLIVERDIRECTOR OF SLEEP Work Phone: Pain Management Comment on above: Gabapentin and Robax in Start: 12-07-2021 Telephone encounter Konstantin shaw MD Work Phone: Neurology Comment on above: Insurance Authorizat ion (Clinicals needed for P.A. for surgery) Start: 12-06-2021 End: 12-06-2021 [facility] Start: 12-06-2021 End: 12-06-2021 [facility] Work Phone: Pre Anesthesia Comment on above: Pre-op evaluation (P rimary Dx); Lumbar disc herniation; Known health problems: none Start: 12-06-2021 End: 12-06-2021 Preprocedural examination done [facility] Work Phone: Pre Anesthesia Start: 12-05-2021 ambulatory Konstantin Kirkland MD Work Phone: Neurosurgery Start: 12-05-2021 Patient encounter status Konstantin Kirkland MD Work Phone: Neurosurgery Start: 12-04-2021 End: 12-04-2021 Patient encounter procedure Konstantin Kirkland MD Work Phone: Neurosurgery Comment on above: Radiculopathy, lumba r region (Primary Dx) Start: 12-04-2021 End: 12-04-2021 ambulatory Ashwini Cadet APRN.DIRECTOR OF SLEEP Work Phone: Pain Management Comment on above: Lumbar disc herniati on (Primary Dx); Radiculopathy, lumbar region Start: 12-04-2021 E-mail encounter fro m caregiver Yana Ballard APRN.DIRECTOR OF SLEEP Work Phone: [place] Start: 12-04-2021 End: 12-04-2021 Telemedicine consultation with patient Ashwini Cadet APRN.DIRECTOR OF SLEEP Work Phone: [facility] Start: 12-03-2021 ambulatory Yana HOYOSN.DIRECTOR OF SLEEP Work Phone: [facility] Comment on above: Potassium Start: 11-23-2021 Telephone encounter Ashwini roldan Management Comment on above: STD Paperwork (Recei velma 11/23) Start: 11-22-2021 End: 11-22-2021 ambulatory Ashwini Cadet APRN.DIRECTOR OF SLEEP Work Phone: Pain Management Comment on above: Lumbar disc herniati on (Primary Dx); Radiculopathy, lumbar region Start: 11-22-2021 End: 11-22-2021 Telemedicine consultation with patient Ashwini Cadet APRN.DIRECTOR OF SLEEP Work Phone: [facility] Start: 11-16-2021 End: 11-16-2021 ambulatory Yana Ballard SPECIAL SERVICES SUPERVISOR.DIRECTOR OF SLEEP Work Phone: [facility] Comment on above: ER Visit Lumbar disc herniati on (Primary Dx); Radiculopathy, lumbar region Start: 11-16-2021 Telephone encounter Ashwini guajardo APRN.DIRECTOR OF SLEEP Work Phone: Pain Management Comment on above: Patient Update Start: 11-16-2021 End: 11-16-2021 Telemedicine consultation with patient Ashwini Cadet APRN.DIRECTOR OF SLEEP Work Phone: [facility] Start: 11-15-2021 End: 11-15-2021 ambulatory Dulce Wong SPECIAL SERVICES SUPERVISOR.DIRECTOR OF SLEEP Work Phone: Telemedicine Comment on above: Treatment not availa ble (Primary Dx) Start: 11-15-2021 End: 11-15-2021 Telemedicine consultation with patient Dulce Wong SPECIAL SERVICES SUPERVISOR.DIRECTOR OF SLEEP Work Phone: [facility] Start: 11-04-2021 Refill Yana E Ziol A PRN.DIRECTOR OF SLEEP Work Phone: [facility] Comment on above: Refill Request Start: 11-02-2021 MC Get Medical Advice Yana E Ziol SPECIAL SERVICES SUPERVISOR.DIRECTOR OF SLEEP Work Phone: [facility] Comment on above: Muscle Relaxer Refil l Start: 10-11-2021 End: 10-11-2021 Patient encounter procedure Feng Wright MD Work Phone: Pain Management Comment on above: Radiculopathy, lumba r region (Primary Dx); Lumbar disc herniation Lumbar disc herniati on (Primary Dx); Radiculopathy, lumbar region Start: 10-06-2021 ambulatory Yana E Ziol A PRN.DIRECTOR OF SLEEP Work Phone: [facility] Comment on above: MRI Start: 10-06-2021 Telephone encounter Yana Dennison ol SPECIAL SERVICES SUPERVISOR.DIRECTOR OF SLEEP Work Phone: [facility] Comment on above: Results (MRI) Refill Request Start: 10-05-2021 End: 10-05-2021 Subsequent hospital visit by physician [facility] (1.5t) Radiology Comment on above: Spinal stenosis of l umbar region without neurogenic claudication [M48.061] Start: 09-23-2021 ambulatory Yana E Ziol A PRN.DIRECTOR OF SLEEP Work Phone: [facility] Comment on above: Chiropractor Start: 09-19-2021 End: 09-19-2021 Patient encounter procedure Yana Triplett Ziol SPECIAL SERVICES SUPERVISOR.DIRECTOR OF SLEEP Work Phone: [facility] Comment on above: Spinal stenosis of l umbar region without neurogenic claudication Start: 09-13-2021 End: 09-13-2021 Emergency department patient visit [facility] Procedures Date Procedure Procedure Detail Performing Clinician Start: 12-01-2024 Serologic test for syphilis Dr. Thomas Salinas MD Work Phone: Start: 10-08-[address] Thomas paula MD Work Phone: Comment on above: Test Ordered: [id number] AFP, Serum, Open Spina BifidaResults SENIOR PRODUCTION SUPERVISOR [employer] Reference Range: .Test Results: TG Reference Range: .Please refer to the following specimen for additional labresults.Please refer to [id number] for results.Gest. Age on Collection Date SENIOR PRODUCTION SUPERVISOR [employer] Reference Range: .Gestat. Age Based On SENIOR PRODUCTION SUPERVISOR [employer] Reference Range: .Maternal Age At BALAJI SENIOR PRODUCTION SUPERVISOR [employer] Reference Range: .Race SENIOR PRODUCTION SUPERVISOR [employer] Reference Range: .Weight SENIOR PRODUCTION SUPERVISOR [employer] Reference Range: .Insulin Dep Diabetes SENIOR PRODUCTION SUPERVISOR [employer] Reference Range: .Multiple Gestation SENIOR PRODUCTION SUPERVISOR [employer] Reference Range: .AFP Value [employer] Reference Range: .Test not performedAFP MoM SENIOR PRODUCTION SUPERVISOR [employer] Reference Range: .OSBR Risk 1 IN SENIOR PRODUCTION SUPERVISOR [employer] Reference Range: .Interpretation SENIOR PRODUCTION SUPERVISOR [employer] Reference Range: .Comment: SENIOR PRODUCTION SUPERVISOR [employer] Reference Range: .Tracking SENIOR PRODUCTION SUPERVISOR [employer] Reference Range: .Performed at: - [facility] [address] [id number] Director: Norm Gonzáles PhD, Phone: [phone] at: [facility] [id number] [place], [place] [id number] Director: Zelalem Ernst [facility], Phone: [phone] Start: 07-31-2024 Hepatitis C antibody measurement Dr. [...] HCV Quant by PCR testing - HCVPCR [id number] Non Reactive: < 0.8 Equivocal: >/= 0.8 [...] echography Start: 03-19-2022 End: 03-19-2022 Antibody screen Pac 3 Work Phone: Comment on above: Order Comment: Speci men Type: BLOOD SPECIMEN Ordering Facility: [facility] Address: [address] [place] [id number] Performed By: #### T [id number] #### [facility] CLIA [id number] [address] ATTN DESTINY [address] OF [place] Start: 03-16-2022 Mri spinal canal lum bar w/o contrast material Radha Dickens PA-C Work Phone: Start: 12-02-2021 Adult depression scr eening assessment Ashwini Cadet SPECIAL SERVICES SUPERVISOR.DIRECTOR OF SLEEP Work Phone: Start: 10-05-2021 Mri spinal canal lum bar w/o contrast material Yana Ballard SPECIAL SERVICES SUPERVISOR.DIRECTOR OF SLEEP Work Phone: Start: 06-12-2021 Adult depression scr eening assessment Yana Ballard SPECIAL SERVICES SUPERVISOR.DIRECTOR OF SLEEP Work Phone: Plan of Treatment Date Care Activity Detail Author Start: 05-16-2030 Urine microalbumin profile [facility] Start: 12-01-2024 CBC W Auto Different ial panel - Blood [facility] Start: 12-01-2024 Measurement of gluco se 2 hours after glucose challenge for glucose tolerance test [facility] Start: 12-01-2024 Serologic test for syphilis [facility] Start: 12-01-2024 [facility] Start: 04-01-2024 [facility] Start: 12-15-2023 Influenza vaccination Influenz a Vaccine (Season Ended) [facility] Start: 11-08-2023 PAP TESTING PAP TESTING [facility] Start: 11-08-2023 Screening for malign ant neoplasm of cervix Pap Testing [facility] Start: 04-15-2023 Behavioral Health Screening Behavioral Health Screening [facility] Start: 12-14-2022 Covid-19 Vaccine ( season) Covid-19 Vaccine ( season) [facility] Start: 12-14-2022 Influenza vaccination C [facility] Start: 12-02-2022 Adult depression screening assessment DEPRESSION SCREENING [facility] Start: 06-12-2022 Adult depression screening assessment DEPRESSION SCREENING [facility] Start: 04-15-2022 DEPRESSION ASSESSMENT DEPRESSION ASS ESSMENT [facility] Start: 2022 HPV TESTING HPV TESTING [facility] Start: 2022 Screening for malign ant neoplasm of cervix HPV Testing [facility] Start: 12-14-2021 Influenza vaccination C [facility] Start: 12-06-2021 End: 02-05-2022 CONFIRM BLOOD TYPE [facility] Work Phone: Comment on above: Expected: 12/06/2021 , Expires: 02/05/2022 Start: 12-06-2021 End: 02-05-2022 TYPE AND SCREEN,30 DAY [facility] Work Phone: Comment on above: Expected: 12/06/2021 , Expires: 02/05/2022 Start: 12-04-2021 End: 02-03-2022 Electrolytes 1998 panel - Serum or Plasma ELECTROLYTES BLD PNL Lab Routine Hypokalemia Expected: 12/04/2021, Expires: 02/03/2022 [facility] Work Phone: Comment on above: Expected: 12/04/2021 , Expires: 02/03/2022 Start: 12-04-2021 End: 02-03-2022 Magnesium [Mass/volume] in Serum or Plasma MAGNESIUM BLD Lab Routine Hypomagnesemia Expected: 12/04/2021, Expires: 02/03/2022 [facility] Work Phone: Comment on above: Expected: 12/04/2021 , Expires: 02/03/2022 Start: 11-23-2021 End: 01-23-2022 Basic metabolic 2000 panel - Serum or Plasma BASIC METABOLIC PNL Lab Routine Hypokalemia Expected: 11/23/2021, Expires: 01/23/2022 [facility] Work Phone: Comment on above: Expected: 11/23/2021 , Expires: 01/23/2022 Start: 11-23-2021 End: 01-23-2022 Magnesium [Mass/volume] in Serum or Plasma MAGNESIUM BLD Lab Routine Hypomagnesemia Expected: 11/23/2021, Expires: 01/23/2022 [facility] Work Phone: Comment on above: Expected: 11/23/2021 , Expires: 01/23/2022 Start: 11-07-2021 PAP TESTING PAP TESTING [facility] Start: 04-15-2021 DEPRESSION ASSESSMENT DEPRESSION ASS ESSMENT [facility] Start: 2010 HEPATITIS C SCREENING HEPATITIS C [facility] Start: 2010 Hepatitis C screening Hepatitis C [facility] Start: 2010 HIV SCREENING HIV SCREENING [facility] Start: 2010 HIV screening HIV Screening [facility] Start: 1997 COVID-19 VACCINE (#1) COVID-19 VACCI NE (#1) [facility] Start: 1992 COVID-19 VACCINE (#1) COVID-19 VACCI NE (#1) [facility] CBC W Auto Different ial panel - Blood [facility] Clostridioides diffi cile toxin genes [Presence] in Stool by YANDY with probe detection C. DIFFICILE PCR Lab Routine Diarrhea, unspecified type Ordered: 07/27/2023 [facility] Work Phone: Comment on above: Ordered: 07/27/2023 ENTERIC BACTERIAL PA KATHY BY PCR ENTERIC BACTERIAL PANEL BY PCR Lab Routine Diarrhea, unspecified type Ordered: 07/27/2023 [facility] Work Phone: Comment on above: Ordered: 07/27/2023 Erythrocyte mean corpuscular volume determination [facility] Hematocrit [Volume Fraction] of Blood [facility] Hemoglobin [Mass/vol ume] in Blood [facility] Leukocytes [#/volume ] in Blood [facility] Mean corpuscular hemoglobin concentration determination [facility] Mean corpuscular hemoglobin determination [facility] Measurement of gluco se 2 hours after glucose challenge for glucose tolerance test [facility] End: 10-19-2022 Mri spinal canal lumbar w/o contrast material MRI LUMBAR SPINE WO IVCON Radiology Routine Spinal stenosis of lumbar region without neurogenic claudication 1 Occurrences starting 09/19/2021 until 10/19/2022 [facility] Work Phone: Comment on above: 1 Occurrences starti ng 09/19/2021 until 10/19/2022 End: 04-11-2023 Mri spinal canal lumbar w/o contrast material MRI LUMBAR SPINE WO IVCON Radiology Routine Spinal stenosis of lumbar region with neurogenic claudication 1 Occurrences starting 03/12/2022 until 04/11/2023 [facility] Work Phone: Comment on above: 1 Occurrences starti ng 03/12/2022 until 04/11/2023 End: 03-07-2024 Mri spinal canal lumbar w/o contrast material MRI LUMBAR SPINE [facility] Radiology Routine Spinal stenosis of lumbar region with neurogenic claudication 1 Occurrences starting 02/06/2023 until 03/07/2024 [facility] Work Phone: Comment on above: 1 Occurrences starti ng 02/06/2023 until 03/07/2024 Neutrophil count [facility] Neutrophil percent differential count [facility] Njx anes&/strd w/img tfrml edrl lmbr/sac 1 lvl INJ TRANSFORAMINAL EPID ANES/STER LS SINGL Procedures Routine Lumbar disc herniation Radiculopathy, lumbar region 1 Occurrences starting 10/11/2021 [facility] Work Phone: Comment on above: 1 Occurrences starti ng 10/11/2021 Ova and parasites identified in Unspecified specimen by Light microscopy OVA + PARA MICROSCOPIC Microbiology Routine Diarrhea, unspecified type Ordered: 07/27/2023 [facility] Work Phone: Comment on above: Ordered: 07/27/2023 Patient Education Miscarriage Th reatened ED [facility] Work Phone: Patient referral [facility] Work Phone: Platelets [#/volume] in Blood [facility] Procedure [facility] Red blood cell count [facility] Red cell distributio n width determination [facility] Serologic test for syphilis [facility] Immunizations Immunization Date Immunization Notes Care Provider Woodrow silverman 12-15-2024 influenza, injectable, madin renee canine kidney, preservative free Dr. Thomas Salinas MD Work Phone: [facility] 12-15-2024 tetanus toxoid, reduced diphtheria toxoid, and acellular pertussis vaccine, adsorbed Dr. Thomas Salinas MD Work Phone: [facility] 05-16-2020 diphtheria, tetanus toxoids and acellular pertussis vaccine, unspecified formulation Dulce Wong SPECIAL SERVICES SUPERVISOR.[facility] Work Phone: [facility] Work Phone: 05-16-2020 tetanus toxoid, reduced diphtheria toxoid, and acellular pertussis vaccine, adsorbed Yana Ziol SPECIAL SERVICES SUPERVISOR.DIRECTOR OF SLEEP Work Phone: [facility] 01-25-2020 Influenza, injectable, Madin Ava Canine Kidney, preservative free, quadrivalent Dulce Wong SPECIAL SERVICES SUPERVISOR.DIRECTOR OF SLEEP Work Phone: [facility] Work Phone: 01-25-2020 influenza, injectable,quadrivale nt, preservative free, pediatric [facility] 01-25-2020 influenza, seasonal, injectable, preservative free Dulce Wong SPECIAL SERVICES SUPERVISOR.DIRECTOR OF SLEEP Work Phone: [facility] Work Phone: 01-25-2020 influenza virus vaccine, unspecified formulation Nehemias Suarez PT, DPT Work Phone: [facility] 09-24-2006 Meningococcal, MCV4, unspecified conjugate formulation(groups A, C, Y and W-135) Yana Ziol SPECIAL SERVICES SUPERVISOR.DIRECTOR OF SLEEP Work Phone: [facility] 09-24-2006 tetanus toxoid, reduced diphtheria toxoid, and acellular pertussis vaccine, adsorbed Yana Ziol SPECIAL SERVICES SUPERVISOR.DIRECTOR OF SLEEP Work Phone: [facility] 10-25-2004 measles, mumps and rubella virus vaccine Yana Ziol SPECIAL SERVICES SUPERVISOR.DIRECTOR OF SLEEP Work Phone: [facility] 04-08-1999 Chicken Pox (disease) Yana Ziol SPECIAL SERVICES SUPERVISOR.DIRECTOR OF SLEEP Work Phone: [facility] Work Phone: 11-16-1997 diphtheria, tetanus toxoids and acellular pertussis vaccine Yana Ziol SPECIAL SERVICES SUPERVISOR.DIRECTOR OF SLEEP Work Phone: [facility] [facility] 11-16-1997 poliovirus vaccine, inactivated Yana Ziol SPECIAL SERVICES SUPERVISOR.DIRECTOR OF SLEEP Work Phone: [facility] 09-20-1993 diphtheria, tetanus toxoids and acellular pertussis vaccine Yana Ziol SPECIAL SERVICES SUPERVISOR.DIRECTOR OF SLEEP Work Phone: [facility] 09-20-1993 poliovirus vaccine, inactivated Yana Ziol SPECIAL SERVICES SUPERVISOR.DIRECTOR OF SLEEP Work Phone: [facility] 06-14-1993 haemophilus influenzae type b vaccine, HbOC conjugate Yana Ziol SPECIAL SERVICES SUPERVISOR.DIRECTOR OF SLEEP Work Phone: [facility] 06-14-1993 measles, mumps and rubella virus vaccine Yana Ziol SPECIAL SERVICES SUPERVISOR.DIRECTOR OF SLEEP Work Phone: [facility] 01-18-1993 hepatitis B vaccine, pediatric or pediatric/adolescent dosage Yana Ziol SPECIAL SERVICES SUPERVISOR.DIRECTOR OF SLEEP Work Phone: [facility] 1992 diphtheria, tetanus toxoids and acellular pertussis vaccine Yana Ziol SPECIAL SERVICES SUPERVISOR.DIRECTOR OF SLEEP Work Phone: [facility] 1992 haemophilus influenzae type b vaccine, HbOC conjugate Yana Ziol SPECIAL SERVICES SUPERVISOR.DIRECTOR OF SLEEP Work Phone: [facility] 1992 hepatitis B vaccine, pediatric or pediatric/adolescent dosage Yana Ziol SPECIAL SERVICES SUPERVISOR.DIRECTOR OF SLEEP Work Phone: [facility] 1992 diphtheria, tetanus toxoids and acellular pertussis vaccine Yana Ziol SPECIAL SERVICES SUPERVISOR.DIRECTOR OF SLEEP Work Phone: [facility] 1992 haemophilus influenzae type b vaccine, HbOC conjugate Yana Ziol SPECIAL SERVICES SUPERVISOR.DIRECTOR OF SLEEP Work Phone: [facility] 1992 poliovirus vaccine, inactivated Yana Ziol SPECIAL SERVICES SUPERVISOR.DIRECTOR OF SLEEP Work Phone: [facility] 1992 hepatitis B vaccine, pediatric or pediatric/adolescent dosage Yana Ziol SPECIAL SERVICES SUPERVISOR.DIRECTOR OF SLEEP Work Phone: [facility] 1992 diphtheria, tetanus toxoids and acellular pertussis vaccine Yana Ziol SPECIAL SERVICES SUPERVISOR.DIRECTOR OF SLEEP Work Phone: [facility] 1992 haemophilus influenzae type b vaccine, HbOC conjugate Yana Ziol SPECIAL SERVICES SUPERVISOR.DIRECTOR OF SLEEP Work Phone: [facility] 1992 poliovirus vaccine, inactivated Yana Ziol SPECIAL SERVICES SUPERVISOR.DIRECTOR OF SLEEP Work Phone: [facility] Payers Date Payer Category Payer Self-pay [id number] 2023 Unknown [id number] 2018 Private Health Insurance [facility] [id number] 2018-Present [phone] [address] [place] [address] O [id number] .[id number] 2018 Private Health Insurance [id number] .[id number] .[id number] 2018 Unknown [id number] 1992 Unknown [id number] 05.31.830.1.516426.3.579.2 .479 Unknown [id number] .1.590812.3.579.2 .462 Unknown [id number] 05.31.830.1.607992.3.579.2 .462 Unknown [id number] 05.31.830.1.712220.3.579.2 .462 Unknown [id number] .1.102740.3.579.2 .462 Unknown [id number] 2.16.840.1.042659.3.579.2 .462 Unknown [id number] 2.16.840.1.740463.3.579.2 .462 Unknown [id number] 2.16.840.1.918238.3.579.2 .462 Unknown [id number] 2.16840.1.145548.3.579.2 .462 Unknown [id number] 2.840.1.318643.3.579.2 .462 Unknown [id number] 2.840.1.543277.3.579.2 .462 Unknown [id number] 2.840.1.271413.3.579.2 .462 Unknown [id number] 2.840.1.830430.3.579.2 .462 Unknown [id number] 2.840.1.094732.3.579.2 .462 Unknown [id number] 2.840.1.310707.3.579.2 .462 Unknown [id number] 2.840.1.957111.3.579.2 .462 Unknown [id number] 2.840.1.918418.3.579.2 .462 Unknown [id number] 2.840.1.920773.3.579.2 .462 Unknown [id number] 2.840.1.419319.3.579.2 .462 Unknown [id number] 2.840.1.406772.3.579.2 .462 Unknown [id number] 2.840.1.203950.3.579.2 .462 Unknown [id number] 2.840.1.311259.3.579.2 .462 Unknown [id number] 2.840.1.158605.3.579.2 .462 Unknown [id number] 2.840.1.605133.3.579.2 .462 Unknown [id number] 2.16840.1.185029.3.579.2 .462 Unknown [id number] 2.16840.1.209946.3.579.2 .462 Unknown [id number] 2.16.840.1.828375.3.579.2 .462 Unknown [id number] 2.16840.1.028307.3.579.2 .462 Unknown [id number] 2.16840.1.541729.3.579.2 .462 Unknown [id number] 2.16840.1.828646.3.579.2 .462 Unknown [id number] 2.16840.1.304216.3.579.2 .462 Unknown [id number] 2.840.1.002968.3.579.2 .462 Unknown [id number] 2.840.1.227327.3.579.2 .462 Social History Date Type Detail Facility Tobacco smoking status [facility] Start: 06-12-2021 End: 08-15-2022 Sex Assigned At Female [facility] Start: 10-24-2015 End: 07-03-2024 Tobacco smoking status NHIS Ex-smoker [facility] End: 10-13-2013 History of tobacco use Current smoker [facility] End: 10-13-2013 History of tobacco use Cigarette Smoker [facility] Start: 10-24-2015 End: 08-15-2022 Cigarettes smoked current (pack per day) - Reported 0.8 [facility] Start: 10-24-2015 End: 12-06-2021 Tobacco use and exposure Smokeless tobacco non-user [facility] Start: 09-19-2021 End: 07-27-2023 Alcohol intake Current drinker of alcohol (finding) [facility] Start: 06-12-2021 History SDOH Alcohol Frequency 3 [facility] Start: 12-01-2019 End: 06-12-2021 History SDOH Alcohol Std Drinks 1 [facility] Start: 06-12-2021 History SDOH Alcohol Binge 2 [facility] Start: 10-31-2012 History SDOH Alcohol Comment occassionally - wine or mixed drink [facility] Start: 06-12-2021 History SDOH Social Connections Phone 5 [facility] Start: 06-12-2021 History SDOH Social Connections Meetings 98 [facility] Start: 06-12-2021 History SDOH Physical Activity DPW 0 [facility] Start: 06-12-2021 History SDOH Stress 4 [facility] Start: 11-30-2019 Education 15 [facility] Start: 10-24-2015 End: 12-04-2021 Tobacco Comment sometimes does E-cig but not very often [facility] Start: 1990 Sex Assigned At Not on file [facility] Start: 09-09-2021 End: 03-19-2022 Exposure to SARS-CoV-2 (event) Not sure [facility] Start: 12-06-2021 History SDOH Alcohol Comment a glass of wine twice a week [facility] Start: 12-06-2021 Tobacco Comment Last e cig 2 weeks ago [facility] Start: 10-02-2021 Tobacco smoking status NHIS Unknown if ever smoked [facility] Start: 1990 Sex Assigned At Female [facility] Do you belong to any clubs or organizations such as pentecostal groups, unions, fraternal or athletic groups, or school groups? No [facility] How often do you att end meetings of the clubs or organizations you belong to? Patient refused [facility] Are you now , , , , never or living with a partner? [facility] How often to you hav e a drink containing alcohol? 2-4 times a month [facility] How many standard dr inks containing alcohol do you have on a typical day? 1 or 2 [facility] How often do you hav e 6 or more drinks on 1 occasion? Less than monthly [facility] How hard is it for y ou to pay for the very basics like food, housing, medical care, and heating Somewhat hard [facility] Do you feel stress - tense, restless, nervous, or anxious, or unable to sleep at night because your mind is troubled all the time - these days [OSQ] Rather much [facility] (I/We) worried singh er (my/our) food would run out before (I/we) got money to buy more. Never true [facility] Start: 06-26-2024 End: 07-23-2024 Sex Female (finding) [facility] Clinical Notes 09-14-2021 to 01-11-2025 Note Date & Type Note Facility 01-11-2025 Progress note [facility] 12-28-2024 Progress note [facility] 11-09-2024 Progress note [facility] 10-12-2024 Evaluation note Diagnosis Onset Date Resolution acute October 12 3:50pm Supervision of high-risk acute October 12, 025 3:50pm Former smoker resolved October 12, 2024 3:50pm acute November 09 8:49am Supervision of high-risk acute November 09, 025 8:49am Anxiety acute December 01, 8:08am acute December 01 8:08am Supervision of high-risk acute December 01, 2024 8:08am Anxiety acute December 15, 2024 9:19am acute December 15, 2024 9:19am Supervision of high-risk acute December 9:19am Anxiety acute December 9:42am acute December 9:42am Supervision of high-risk acute December 282024 9:42am Anxiety acute December 10:15am acute December 10:15am Supervision of high-risk acute January 112024 10:15am [facility] Work Phone: 1(169) 601-529706-30-[address] [facility] [address] [place] [address], [address] [place] [address] OFFICE VISIT Date of Service: 10/12/24 MR#: [id number] Acct: [id number] Name: HANNAH HENDRICKS Rep #: [id number] : 1990 Provider: Dr. 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 Date Name GA/Weeks Outcome Route Bth Weight Gen Labor Lgth Anesthesia Del Locatn Provider FOB 08/11/20 Janie 39 live - full term 7lbs 8.5oz Female epidural [facility] Dr. Quang Samaniego 03/15/24 4 spontaneous Delivery [...] Negative 157 -?-?-?-?--?-?-?-?-?-?-?-?- -No VB. Nausea improving. Br US confirm [...] Cosigner Signature: Date (if applicable) CC: ~ [facility]06-30-2025 Progress note Author Isabel Marino [facility] Note Date/Time October 12, 2024 4:21 pm [facility] [address] [place] [address], [address] [place] [address] OFFICE VISIT Date of Service: 10/12/24 MR#: [id number] Acct: [id number] Name: HANNAH HENDRICKS Rep #: [id number] : 1990 Provider: Dr. 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 Date Name GA/Weeks Outcome Route Bth Weight Gen Labor Lgth Anesthesia Del Locatn Provider FOB 08/11/20 Janie 39 live - full term 7lbs 8.5oz Female epidural [facility] Dr. Quang Samaniego 03/15/24 4 spontaneous Delivery [...] Cosigner Signature: Date (if applicable) CC: ~ [facility] Work Phone: 1(434) 238-589106-02-2025 Evaluation note* Diagnosis Onset Date Resolution Status [...] 01, 025 8:08am Supervision of high-risk acute [place] [address], 202 5 8:08am Anxiety acute December 15, 2024 9:19am acute December 15, 2024 9:19am Supervision of high-risk acute December 15 9:19am Anxiety acute December 9:42am acute December 9:42am Supervision of high-risk acute December 28, 2024 9:42am [facility] Work Phone: 1(444) 749-434906-02-2025 Progress [facility] [address] [place] [address], [address] [place] [address] OFFICE VISIT Date of Service: 09/14/24 MR#: [id number] Acct: [id number] Name: HANNAH HENDRICKS Rep #: [id number] : 1990 Provider: BART Mcghee Age/Sex: 34/F Location: [facility] [place] Status: Signed Intake Vital Signs 07/20/24 13:59 08/17/24 08:32 09/14/24 08:59 Height 5 ft 6 in 5 ft 6 in 5 ft 6 in Weight: 190 lb 2 oz BMI 30.7 BP 106/71 Intake Visit Reasons: 17wk ob Chief Complaint: 17wk OB Software Trainer Required: No Is patient in pain?: No [...] current occupational status: employed current occupation: [employer] current occupational exposures/hazards: No pets and animals: [...] 3-4 times per week duration: 15-30 minutes/day agata/adventist: Rastafari seatbelt use: always do you feel safe at home: Yes 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 Date Name GA/Weeks Outcome Route Bth Weight Infant Gen Labor Lgth Anesthesia Del Locatn Provider FOB 08/11/20 Janie 39 live - full term 7lbs 8.5oz Female epidural [facility] Dr. Quang Samaniego 03/15/24 4 spontaneous Delivery [...] handout given. 09/14/24 0934 s BART> Date Bhargavi Mcghee CNM Cosigner Signature: Date (if applicable) CC: ~ [facility]05-05-2025 Evaluation note* Diagnosis Onset Date Resolution [...] Supervision of high-risk acute December 01 8:08am [facility] Work Phone: 1(459) 619-279105-05-2025 Evaluation note* Diagnosis Onset Date Resolution Status [...] Anxiety acute December 01, 025 8:08am acute [place] [address], 2 025 8:08am Supervision of high-risk acute December 01 8:08am Anxiety acute December 15, 2024 9:19am acute December 15, 2024 9:19am Supervision of high-risk acute December 15, 025 9:19am [facility] Work Phone: 1(446) 179-271804-23-2025 Evaluation note* Diagnosis Onset Date Resolution Status Admit Date acute August 05 9:49am Supervision of high-risk acute August 05, 2024 9:49am Former smoker resolved August 05, 2024 9:49am History of miscarriage, currently resolved August 05, 025 9:49am acute August 17, 2024 8:28am Supervision of high-risk acute August 17, 2024 8: 28am Former smoker resolved August 17 8:28am History of miscarriage, currently resolved August 17, 2024 8:28am acute September 14, 2024 8:56am Supervision of high-risk acute September 14, 2024 8 :56am Former smoker resolved September 14, 025 8:56am History of miscarriage, currently resolved September 14 8:56am acute October 12 3:50pm Supervision of high-risk acute October 12, 2024 3:50pm Former smoker resolved October 12, 2024 3:50pm acute November 09 8:49am Supervision of high-risk acute November 09, 2024 8:49am Anxiety acute December 01, 2 025 8:08am acute December 01, 025 8:08am Supervision of high-risk acute December 01 8:08am [facility] Work Phone: [phone]) [phone] Evaluation note* Diagnosis Onset Date Resolution Status Admit Date Former smoker acute July 20, 2024 1:53pm History of miscarriage, currently acute July 20 1:53pm acute July 20 1:53pm Supervision of high-risk acute July 20, 2024 1:53pm Former smoker acute August 05, 2024 9:49am History of miscarriage, currently acute August 05, 2 025 9:49am acute August 05 9:49am Supervision of high-risk acute August 05, 2024 9:49am Former smoker acute August 17 8:28am History of miscarriage, currently acute August 17, 2024 8:28am acute August 17, 2024 8:28am Supervision of high-risk acute August 17, 2024 8: 28am Former smoker acute September 14, 025 8:56am History of miscarriage, currently acute September 14 8:56am acute September 14, 2024 8:56am Supervision of high-risk acute September 14, 2024 8 :56am [facility] Work Phone: [phone] Evaluation note* Diagnosis Onset Date Resolution Status [...] Former smoker resolved October 12, 2024 3:50pm [facility] Work Phone: [phone] Evaluation note* Diagnosis Onset Date Resolution Status Admit Date acute July 20 1:53pm Supervision of high-risk acute July 20, 2024 1:53pm Former smoker resolved July 20, 2024 1:53pm History of miscarriage, currently resolved July 20 1:53pm acute August 05 9:49am Supervision of high-risk acute August 05, 2024 9:49am Former smoker resolved August 05, 2024 9:49am History of miscarriage, currently resolved August 05, 025 9:49am acute August 17, 2024 8:28am [...] of high-risk acute November 09, 2024 8:49am [facility] Work Phone: 1(591) 392-799403-20-2025 Radiology Diagnostic study note [facility] Services [address] [place] [address] [id number] Transvaginal w/Preg US MR#: [id number] Acct: [id number] Name: HANNAH HENDRICKS Rep #: [id number] : 1990 F 34 From: Mavis Yuan MD PCP: Dr. Thomas Salinas MD Status: REG CLI Study:Transvaginal w/Preg US Date of Exam: 07/02/24 Exam# [id number] Ordering Dr: Maryann Castaneda DO PROCEDURE: TRANSVAGINAL [...] 3. Additional description as above. Reading Location: [facility] CC: Dr. Maryann Bajwa DO; Dr. Thomas Salinas MD ~ Management Professionals: Signed [facility]03-14-2025 Radiology Diagnostic study note [facility] Imaging Services [address] [place] [address] Transvaginal w/Preg US MR#: [id number] Acct: [id number] Name: HANNAH HENDRICKS Rep #: [id number] : 1990 F 34 From: Mavis Yuan MD PCP: Dr. Thomas Salinas MD Status: REG CLI Study:Transvaginal w/Preg US Date of Exam: 06/25/24 Exam# [id number] Ordering Dr: Maryann Castaneda DO PROCEDURE: TRANSVAGINAL [...] 3. Additional description as above. Reading Location: [id number] CC: Dr. Maryann Bajwa DO; Dr. Thomas Salinas MD ~ Management Professionals: Signed [facility]12-31-2024 Evaluation note* Diagnosis Onset Date Resolution Status Admit Date Spontaneous acute Dece [facility] 2023 1:50pm [facility] Work Phone: 1(504) 262-895912-31-2024 Evaluation note* Diagnosis Onset Date Resolution Status Admit Date Spontaneous inactive [facility] 2023 1:50pm [facility] Work Phone: 1(725) 428-147612-31-2024 Evaluation note* Diagnosis Onset Date Resolution Status Admit Date Spontaneous inactive [facility] 2023 1:50pm Former smoker acute July 20, 2024 1:53pm History of miscarriage, currently acute July 20 1:53pm acute July 20 1:53pm Supervision of high-risk acute July 20, 2024 1:53pm [facility] Work Phone: 1(455) 502-266404-13-2024 NoteHNO ID: [id number] Author: DIANA TREJO APRN.DIRECTOR OF SLEEP Service: ? Author Type: Nurse Practitioner Type: Progress Notes Filed: 07/27/2023 12:13 Note Text: [facility] Express Care Visit Patient Name: Hannah Hendricks Primary Care Physician: Thomas Salinas MD Service Date: 07/27/2023 SUBJECTIVE: Hannah is an pleasant otherwise well 33 year old female who is here today accompanied by her Mom for evaluation of symptom(s)/complaint(s) as below. Presenting with concern of persistent diarrhea since 07/24/2023. Traveled for work recently to [place]. Had salmon Saturday evening upon arrival to [...] Hearing normal. Nose: Nose normal. Mouth/Throat: Lips: [place]. Mouth: Mucous membranes are moist. Pharynx: Oropharynx [...] hopeful improvement/resolution of symptoms (more content not included)...[facility]04-13-2024 History of Present illness Narrative* Diana Trejo APRN.DIRECTOR OF SLEEP - 07/27/2023 11:51 AM EDT Images from the original note were not included. [facility] Express Care Visit Patient Name: Hannah Hendricks Primary Care Physician: Thomas Salinas MD Service Date: 07/27/2023 SUBJECTIVE: Hannah is an pleasant otherwise well 33 year old female who is here today accompanied by her Mom for evaluation of symptom(s)/complaint(s) as below. Presenting with concern of persistent diarrhea since 07/24/2023. Traveled for work recently to [place]. Had salmon Saturday evening upon arrival to [...] Hearing normal. Nose: Nose normal. Mouth/Throat: Lips: [place]. Mouth: Mucous membranes are moist. Pharynx: Oropharynx [...] 07/27/2023 Time: 11:51 AM documented in this encounter[facility] Instructions* Patient Instructions* Diana Trejo [...] new or worsening symptoms. documented in this encounterSum[facility]10-25-2023 NoteHNO ID: [id number] Author: Konstantin Kirkland MD Service: ? Author [...] Past Histories independently gathered by the clinical cryptologic support specialist and the remaining scribed note accurately describes my personal service to the patient. The documentation for this note was completed by Grace Mojica acting as scribe for Konstantin Kirkland MD. February 06, 2023 8:50 AM. I agree with the operative note independently gathered by the clinical cryptologic support specialist and the remaining scribed note accura (more content not included)...[id number] of Present illness Narrative* Konstantin Kirkland [...] 2022 after 19 visits. PAIN EVALUATION 02/03/2023 22202/06/2023 0839 Pain Level: 3 2 Pain Location: [...] Past Histories independently gathered by the clinical cryptologic support specialist and the remaining scribed note accurately describes my personal service to the patient. The documentation for this note was completed by Grace Mojica acting as scribe for Konstantin Kirkland MD. February 06, 2023 8:50 AM. I agree with the operative note independently gathered by the clinical cryptologic support specialist and the remaining scribed note accurately describes my personal service to the patient. SIGNATURE: Konstantin Kirkland MD PATIENT NAME: Hannah Hendricks DATE: February 06, 2023 TIME: 8:49 AM PAGER: documented in this encounterSumma Health [facility]09-18-2023 NoteHNO ID: [id number] Author: Nehemias Suarez, PT, DPT Service: ? [...] reviewed in detail this date to promote skilled nursing therapeutic gains. Patient was seen for 19 [...] > 2---Partially Achieved (R - not achieved) [place] in home exercise program.---Achieved Patient will decrease [...] states that sxs resolved with rest and resident care director. Pt states that sxs are located to [...] Stop Time : 183 Nehemias Suarez PT, [facility]09-18-2023 History of Present illness Narrative* Nehemias Suarez, PT, DPT - 12/31/2022 6:01 PM EDT Episode Visit [...] reviewed in detail this date to promote skilled nursing therapeutic gains. Patient was seen for 19 [...] > 2---Partially Achieved (R - not achieved) [place] in home exercise program.---Achieved Patient will decrease [...] states that sxs resolved with rest and resident care director. Pt states that sxs are located to [...] Stop Time : 1834 Nehemias Suarez PT, DPT documented in this encounterSumma Health [facility]08-[facility]-2023 NoteHNO ID: [id number] Author: Nehemias Suarez PT, DPT Service: ? [...] will improve R LE myotome strength to 08/17---Achieved -patient will improve B/L FMS ASLR to a score > 2---Partially Achieved (R - not achieved) [place] in home exercise program.---Achieved Patient will decrease [...] Patient to be seen for Therapeutic exercise (13835), Neuromuscular re-education (78612), Manual therapy (29235), Therapeutic activities (26569), Self-assisted management (49104), Patient/Family/Caregiver Education SUBJECTIVE: Pt states that she [...] and decrease pain. Utilized (more content not included)...[facility] HospitalKbzhwalu60-91-9789 History of Present illness Narrative* Nehemias Suarez, [...] > 2---Partially Achieved (R - not achieved) [place] in home exercise program.---Achieved Patient will decrease [...] Patient to be seen for Therapeutic exercise (03377), Neuromuscular re-education (59848), Manual therapy (65963), Therapeutic activities (03915), Self-assisted management (78111), Patient/Family/Caregiver Education SUBJECTIVE: Pt states that she [...] Minutes (timed/untimed): 42 Session Start Time : 1800 Session Stop Time : 1842 Nehemias Suarez PT, DPT documented in this encounterSumma Health [facility]07-12-2023 NoteHNO ID: [id number] Author: Nehemias Suarez PT DPT Service: ? Author Type: Physical Therapist [...] > 2---Partially Achieved (R - not achieved) [place] in home exercise program.---Achieved Patient will decrease [...] Patient to be seen for Therapeutic exercise (44905), Neuromuscular re-education (16462), Manual therapy (53824), Therapeutic activities (96619), Self-assisted management (33187), Patient/Family/Caregiver Education SUBJECTIVE: Patient Reason for Visit: [...] review 11: *prone pr (more content not included)...[facility] HospitalGliytily20-86-8374 NoteHNO ID: [id number] Author: Nehemias Suarez PT, DPT Service: ? [...] ASLR to a score > 2---Not Achieved [place] in home exercise program.---Achieved Patient will decrease [...] Patient to be seen for Therapeutic exercise (52093), Neuromuscular re-education (57475), Manual therapy (05028), Therapeutic activities (22269), Self-assisted management (29722), Patient/Family/Caregiver Education SUBJECTIVE: Patient Reason for Visit: [...] 8: *hamstring stretch, review (more content not included)...[facility] 09-12-2022 History of Present illness Narrative* Nehemias Suarez PT, DPT - 09/12/2022 5:20 PM EDT [...] ASLR to a score > 2---Not Achieved [place] in home exercise program.---Achieved Patient will decrease [...] Patient to be seen for Therapeutic exercise (36351), Neuromuscular re-education (84645), Manual therapy (15938), Therapeutic activities (74957), Self-assisted management (14061), Patient/Family/Caregiver Education SUBJECTIVE: Patient Reason for Visit: [...] Nehemias Suarez PT, DPT documented in this encounterSumma Health [facility]05-17-2023 NoteHNO ID: [id number] Author: Juliano Urias PTA Service: ? Author Type: Clinical Genetics Laboratory Chief Type: Progress Notes Filed: 08/29/2022 6:46 PM [...] Total Treatment Time Minutes (timed/untimed): 38 [facility]as[facility] Miscellaneous Notes* Telephone Encounter - Italia Ackerman RN - 08/28/2022 9:44 AM EDT Will forward for review. documented in this encounterSumma Health [facility]05-03-2023 NoteHNO ID: [id number] Author: Nehemias Suarez, PT, DPT Service: ? [...] REPORT PLAN OF CARE UPDATE: Assessment: Hannah Law Eladio demonstrates good progress towards therapy goals over [...] ASLR to a score > 2---Partially Achieved [place] in home exercise program.---Achieved Patient will decrease [...] Patient to be seen for Therapeutic exercise (09712), Neuromuscular re-education (50739), Manual therapy (75660), Therapeutic activities (33625), Self-assisted management (05206), Patient/Family/Caregiver Education SUBJECTIVE: Patient Reason for Visit: [...] review 5: *prone pre (more content not included)...[facility] HospitalDnhrumdx83-87-1669 History of Present illness Narrative* Nehemias Suarez [...] ASLR to a score > 2---Partially Achieved [place] in home exercise program.---Achieved Patient will decrease [...] Patient to be seen for Therapeutic exercise (88323), Neuromuscular re-education (78823), Manual therapy (62862), Therapeutic activities (83272), Self-assisted management (61565), Patient/Family/Caregiver Education SUBJECTIVE: Patient Reason for Visit: [...] Nehemias Suarez PT, DPT documented in this encounterSumma Health [facility]04-17-2023 History of Present illness Narrative* [...] visit. Either the patient or their legal group sales representative has been informed of the risks and benefits of -- and alternatives to -- treatment through a remote evaluation andconsents to proceed with the evaluation remotely. SIGNATURE: Konstantin Kirkland MD PATIENT NAME: Hannah Hendricks DATE: July 30, 2022 TIME: 9:00 AM PAGER: documented in this encounterSumma Health [facility]04-03-2023 NoteHNO ID: [id number] Author: Nehemias Suarez PT, DPT Service: ? [...] ASLR to a score > 2---Not Achieved [place] in home exercise program.---Achieved Patient will decrease [...] Patient to be seen for Therapeutic exercise (62785), Neuromuscular re-education (76047), Manual therapy (26019), Therapeutic activities (26788), Self-assisted management (70493), Patient/Family/Caregiver Education SUBJECTIVE: Patient Reason for Visit: [...] Total Treatment Time [place] (more content not included)...[facility] 07-16-2022 History of Present illness Narrative* Nehemias Suarez PT, DPT - 07/16/2022 12:35 PM EDT [...] ASLR to a score > 2---Not Achieved [place] in home exercise program.---Achieved Patient will decrease [...] Patient to be seen for Therapeutic exercise (69459), Neuromuscular re-education (34320), Manual therapy (03888), Therapeutic activities (66840), Self-assisted management (18410), Patient/Family/Caregiver Education SUBJECTIVE: Patient Reason for Visit: [...] Nehemias Suarez PT DPJaime documented in this encounterSumma Health [facility]03-27-2023 NoteHNO ID: [id number] Author: Nehemias Suarez PT, DPT Service: ? [...] inch step TREATMENT: Therapeutic Exercise: 1: arc physical fitness trainer, L5, x 5 minutes, to increase [...] 10, slight to no knee bend 10: *eriberto perkins lift, from 4 inch step, 2 x 10 11: * bug, review Skilled Intervention: Patient was educated in proper exercise technique and purpose for exercises. Reviewed and educated patient on additions/changes for home exercise program as above (*). Billing Therapeutic Exercise Treatment Minutes: 41 Total Treatment Time Minutes (timed/untimed): 41 Nehemias Suarez PT, [facility]03-27-[facility] History of Present illness Narrative* Nehemias [...] inch step TREATMENT: Therapeutic Exercise: 1: arc physical fitness trainer, L5, x 5 minutes, to increase [...] Nehemias Suarez PT, DPT documented in this encounterSumma Health [facility]03-20-2023 NoteHNO ID: [id number] Author: Juliano Urias PTA Service: ? Author Type: Clinical Genetics Laboratory Chief Type: Progress Notes Filed: 07/02/2022 4:28 PM [...] Total Treatment Time Minutes (timed/untimed): 40 [facility]asGal[facility]03-13-2023 NoteHNO ID: [id number] Author: Nehemias Suarez PT, DPT Service: ? [...] Time Minutes (timed/untimed): 40 Nehemias Suarez PT, DPTriHealthVvwdlhwa39-58-3079 History of Present illness Narrative* Nehemias Suarez [...] Nehemias Suarez PT, DPT documented in this encounterSumma Health [facility]03-06-2023 NoteHNO ID: [id number] Author: Nehemias Suarez, PT, DPT Service: ? Author Type: Physical Therapist Type: Progress Notes Filed: 06/18/2022 4:28 PM Note Text: Episode Visit Count: 9 Therapist That Will Accept/Oversee The Plan Of Care: Neheimas Suarez Start of Care Date: 04/20/22 Onset [...] ASLR to a score > 2---Not Achieved [place] in home exercise program.---Achieved Patient will decrease [...] Patient to be seen for Therapeutic exercise (04822), Neuromuscular re-education (69156), Manual therapy (64134), Therapeutic activities (10003), Self-assisted management (67390), Patient/Family/Caregiver Education PLAN FOR NEXT VISIT: prone [...] with disability. 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 Functional Limitation Comments: sitting, bending [...] as above (*). Mk (more content not included)...[facility] HospitalTjeuwjdb28-76-0704 NoteHNO ID: [id number] Author: Juliano Urias PTA Service: ? Author Type: Clinical Genetics Laboratory Chief Type: Progress Notes Filed: 06/11/2022 4:28 PM [...] Treatment Time Minutes (timed/untimed): 40 Juliano Urias PTAPaulding County HospitalRyyprcgk01-90-7423 History of Present illness Narrative* Juliano Urias PTA - 06/11/2022 12:19 PM EST Episode Visit [...] 40 Juliano Urias PTA documented in this encounterSumma Health [facility]02-20-2023 NoteHNO ID: [id number] Author: Juliano Urias PTA Service: ? Author Type: Clinical Genetics Laboratory Chief Type: Progress Notes Filed: 06/04/2022 4:43 PM [...] is concerned regarding numbness in right thigh. ASSISTANT GROCERY educated patient that numbness is common after [...] Total Treatment Time Minutes (timed/untimed): 50 Juliano Urias [facility]02-15-2023 NoteHNO ID: [id number] Author: Nehemias Suarez, PT, DPT Service: ? [...] Time Minutes (timed/untimed): 46 Nehemias Suarez PT, [facility]02-15-20[facility] History of Present illness Narrative* Nehemias [...] Nehemias Suarez PT, DPT documented in this encounterSumma Health [facility]02-13-2023 NoteHNO ID: [id number] Author: Sheela Glover RN Service: ? Author Type: Registered Nurse Type: Progress Notes Filed: 05/28/2022 6:21 PM Note Text: I was able to connect with pt via phone call and explained that the fax is not going through. She will look for another fax number, but also can see the copy of the letter in her Qosmoshart.[facility] HospitalTpwklhfd00-44-0386 NoteHNO ID: [id number] Author: Sheela Glover RN Service: ? Author Type: Registered Nurse Type: Progress Notes Filed: 05/28/2022 6:21 PM Note Text: RTW letter created and Uploaded to [employer]. The number the pt provided ([phone]) does not work. Also after Googling her employer and finding another local fax number ([phone]), that also did not work. I called pt 3 times and left a message with no reply.[facility] HospitalYkdkmbsr90-62-4880 NoteHNO ID: [id number] Author: Konstantin Kirkland MD Service: ? Author Type: Physician Type: Progress Notes Filed: 05/28/2022 6:21 PM Note Text: [phone] 05/30 No restrictionsFaWest Roxbury VA Medical CenterVcucydfi73-61-5429 NoteHNO ID: [id number] Author: Konstantin Kirkland MD Service: ? Author Type: Physician Type: Progress Notes Filed: 05/28/2022 6:32 PM Note Text: SPINE SURGERY FOLLOW UP This is a virtual visit using [employer] video visit. It required patient-provider interaction for [...] May 28, 2022 TIME: 1:56 PM PAGER: ILayne, attest that this document has been prepared under the direction and in the presence of Konstantin Kirkland MD on May 28, 2022 at 2:05 PM.[facility] HospitalSfitkxxw80-17-1637 NoteHNO ID: [id number] Author: Nehemias Suarez PT, DPT Service: ? [...] ASLR to a score > 2---Not Achieved [place] in home exercise program.---Achieved Patient will decrease [...] Patient to be seen for Therapeutic exercise (63044), Neuromuscular re-education (80395), Manual therapy (65469), Therapeutic activities (61714), Self-assisted management (46945), Patient/Family/Caregiver Education PLAN FOR NEXT VISIT: update to [facility] SUBJECTIVE: Patient Reason for Visit: Pt [...] SLR Flexibility: passive ~50 (more content not included)...[facility] HospitalEmyuvqju97-08-6059 History of Present illness Narrative* Nehemias Suarez PT, DPT - 05/21/2022 1:24 PM EST Episode Visit Count: 5 Therapist That Will Accept/Oversee The Plan Of Care: Nehemias Suarez Start of Care Date: 04/20/22 Onset Date: 03/20/22 Patient Identified by Name and Date of : Yes REHABILITATION AND SPORTS THERAPY PHYSICAL THERAPY PROGRESS REPORT PLAN OF CARE UPDATE: Assessment: Hannah L Eladio demonstrates good progress towards therapy goals over [...] ASLR to a score > 2---Not Achieved [place] in home exercise program.---Achieved Patient will decrease [...] Patient to be seen for Therapeutic exercise (96701), Neuromuscular re-education (71071), Manual therapy (58898), Therapeutic activities (24571), Self-assisted management (33543), Patient/Family/Caregiver Education PLAN FOR NEXT VISIT: update to [facility] SUBJECTIVE: Patient Reason for Visit: Pt [...] to challenge endurance/core strength 3: *posterior chain wood repatcher, supine, review 4: *hip ABD iso, review [...] Nehemias Suarez PT, DPT documented in this encounterSumma Health [facility]01-23-2023 Miscellaneous Notes* Telephone Encounter - Italia Ackerman RN - 05/07/2022 3:07 PM EST Will forward for review. documented in this encounterSumma Health W[facility]01-23-2023 History of Present illness Narrative* Juliano Urias [...] 48 Juliano Urias PTA documented in this encounterSumma Health [facility]01-16-2023 History of Present illness Narrative* [...] 45 Juliano Urias PTA documented in this encounterSumma Health [facility]01-11-2023 NoteHNO ID: [id number] Author: Konstantin Kirkland MD Service: ? Author [...] severe depression 20-27 Severe depression PHYSICAL EXAM: [facility] 03/14/2022 (Approximate) LIMITED DUE TO VIRTUAL VISIT [...] DATE: April 24, 2022 TIME: 3:15 PM PAGER:[facility] HospitalQhjhpdgq29-28-3687 History of Present illness Narrative* Konstantin Kirkland [...] TIME: 3:15 PM PAGER: documented in this encounterSumma Health [facility]01-06-2023 History of Present illness Narrative* Nehemias Suarez PT, DPT - 04/20/2022 10:52 AM EST Episode Visit Count: 1 Therapist That Will Accept/Oversee The Plan Of Care: Nehemias Suarez Start of Care Date: 04/20/22 Onset Date: 03/20/22 Patient Identified by Name and Date of : Yes REHABILITATION AND SPORTS THERAPY PHYSICAL THERAPY EVALUATION PLAN OF CARE: Assessment: Hannah Law Eladio presents s/p L4/L5 microdiscectomy surgery on [...] FMS ASLR to a score > 2 [place] in home exercise program. Patient will decrease pain rating by 2 points to meet minimal clinical important difference for numeric pain rating scale. Patient Goals: decrease pain, improve posteiror chain extensibiltiy Planned Interventions, Frequency, and Duration: Current Frequency: 2x/week Duration: 4 weeks Total Number of Visits Planned: 8 Planned Treatment Interventions: Therapeutic exercise (52053);Neuromuscular re- education (04005);Manual therapy (97868);Therapeutic activities (69395);Self- assisted management (88889);Patient/Family/Caregiver Education Patient demonstrates good understanding of plan [...] bending overand pulling weeds. Pt initially utilized resident care director which did not resolve sxs. Pt then [...] Nehemias Suarez PT, DPT documented in this encounterSumma Health W[facility]12-23-2022 NoteHNO ID: [id number] Author: Konstantin Kirkland MD Service: ? Author [...] DATE: April 06, 2022 TIME: 6:35 AM PAGER:[facility] HospitalCxbnmskw85-73-0155 History of Present illness Narrative* Konstantin Kirkland [...] TIME: 6:35 AM PAGER: documented in this encounterSumma Health W[facility]12-15-2022 Miscellaneous Notes* Telephone Encounter - [...] for review. * Telephone Encounter - Britt Jacy Moreno - 03/29/2022 9:36 AM EST Patient called with complaints of left lower back pain going down to her left hip. Now her left legfeels hot. She had surgery on right side of lumbar spine last week. Please call to advise at [phone]. 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 Staffing Anesthesiologist: Mark Chavez MD WASHTUB WORKER HELPER: Alexandra Lombardo APRN.WASHTUB WORKER HELPER Performed by: GINA Indications and Patient Condition [...] attempts at approach: 1 SIGNATURE: Alexandra Lombardo APRN.WASHTUB WORKER HELPER PATIENT NAME: Hannah Hendricks DATE: March 20, 2022 TIME: 12:35 PM CSN: [id number] Instructions* Patient Instructions* Agnes Matthews PA-C - 03/19/2022 1:02 PM EST PATIENT PREOPERATIVE INSTRUCTIONS Konstantin Kirkland MD has scheduled you for your procedure at this surgery center: [facility]: [phone] --[address] [place] [address]. On your scheduled day of surgery, please [...] Procedures: - YOU MUST HAVE A RESPONSIBLE PUBLIC SAFETY TELECOMMUNICATOR TAKE YOU HOME. A SPEECH PATHOLOGY SUPERVISOR OR BOOTH SUPERVISOR CANNOT BE MADE A RESPONSIBLE PUBLIC SAFETY TELECOMMUNICATOR. - We recommend that a responsible person [...] Advance Directive, please fax a copy to [phone] or email to for it to be [...] day. Agnes Matthews PA-C documented in this encounterSumma Health Wad[facility]12-05-2022 History and physical note * [...] fevers. Neurological: No history of TIA's, stroke, SHREDDER PICKER tumor, impaired sensorium, hemiplegia, paraplegia orquadraplegia. No neurological symptoms or problems. Respiratory: No history of current cough or dyspnea, or pneumonia in the past 6 weeks. No history of respiratory/pulmonary symptoms or problems. Cardiovascular: No history of HTN requiring medication, no history of angina, CHF, UT, cardiac surgery or stents. Denies rest pain, [...] 422 QTC Calculation (Bazett) 431 Calculated P Yolo -8 Calculated R Yolo 79 Calculated T Yolo 49 Impression NORMAL SINUS RHYTHM RSR' OR QR PATTERN IN V1 SUGGESTS RIGHT VENTRICULAR CONDUCTION DELAY BORDERLINE ECG no STEMI Confirmed by MD GALINDO STEVEN ([id number]), content editor ROSEMARY MALDONADO ([id number]) on 11/16/2021 6:44:48 AM No results found for this or any previous visit (from the past 08408 hour(s)). Assessment Electronic cigarette use Assessment: occasional [...] large neck Non-male patient STOP-Bang Score: 0 [id number] Score: Age: <65 Sex: female [id number] Score: 1 ARISCAT Score: Age: <=50 ARISCAT [...] 12:35 PM PAGER/CONTACT #: documented in this encounterSumma Health W[facility]12-02-2022 Miscellaneous Notes* Telephone Encounter - Italia Ackerman RN - 03/16/2022 3:37 PM EST Answered question when patient was being scheduled for PAT. * Telephone Encounter - Karen Long - 03/16/2022 3:33 PM EST Patient at [phone] is requesting a call back. She has another question about medication. * Telephone Encounter - Italia Ackerman RN - 03/16/2022 2:[address] Kirkland spoke with patient. Will be having surgery on 03/20/22. * Telephone Encounter - Italia Ackerman RN - 03/16/2022 2:08 PM EST Will forward for review. * Telephone Encounter - Karen Long - 03/16/2022 1:32 PM EST Patient at [phone] is requesting a call back Re: MRI results. She is quite upset. documented in this encounterSumma Health [facility]12-02-2022 History of Present illness Narrative* Viola Martínez, RT(R) - 03/16/2022 8:40 AM EST Radiology Service [...] 16, 2022 8:35 AM documented in this encounterSumma Health W[facility]12-01-2022 Miscellaneous Notes* Telephone Encounter - Britt Moreno - 2022 10:11 AM EST Physician: Dr Kirkland Call from patient requesting refill. Please E-Scribe Last OV: 03/05/22 with Asif Future OV: 05/17/22 with Asif Requested Prescriptions Pending Prescriptions Disp Refills methocarbamol (ROBAXIN-750) 750 mg tablet 40 tablet 0 Sig: Take 1 tablet by mouth three times daily as needed. Pharmacy Name: [facility] Phone #: [phone] Britt Louie [facility] documented in this encounterSumma Health Wad[facility] Center11-28-2022 Miscellaneous Notes* Telephone Encounter - [...] 9:10 AM EST Patient called yesterday to manager content provider. Will forward for review. * Telephone Encounter - Darlene Sherman - 03/12/2022 8:33 AM EST Patients first day working and states she is in extreme pain, feels she cannot take it, the top of her right leg and her lower back is stiff, states pain is 7 out of 10. Please call patient at [phone] documented in this encounterSumma Health [facility]11-27-2022 Miscellaneous Notes* Plan of Care [...] Adelso Kelly MD PGY-2, Neurological Surgery Pager: [phone] Neurosurgery manager content: 7:15 PM 03/11/22 CURRENT OVERNIGHT RESIDENT Please page [phone] between 6:30 AM and 6:00PM documented in this encounterSumma Health W[facility]11-27-2022 Miscellaneous Notes* Telephone Encounter - Ximena Lewis RN - 03/11/2022 6:29 PM EST Patient calling regarding back surgery. Conferenced to [facility] wet milling wheel operator, Emili, to speak with provider manager content for Dr. Kirkland at phone number ( - - ). documented in this encounterSumma Health [facility]11-21-2022 History of Present illness Narrative* [...] TIME: 8:55 AM PAGER: documented in this encounterSumma Health W[facility] - [facility]11-07-2022 Miscellaneous Notes* Telephone Encounter - Kelsy Waterman RN - 02/19/2022 10:40 AM EST Called [facility]. Per pharmacist pt was not able to pickle processor prescription; was too soon for pickle processor but able to pickle processor today. Call placed to patient to update. Verbalizes understanding. * Telephone Encounter - Britt Louie Pss - 02/19/2022 10:20 AM EST The patient called stating when she went to [email or web address] to pickle processor the Robaxin, the pharmacy told her that it was cancelled by our office the same day they received it. Please call patient to advise at [phone] documented in this encounterSumma Health Wad[facility]10-25-2022 History of Present illness Narrative* [...] TIME: 7:02 AM PAGER: documented in this encounterSumma Health Wad[facility]10-24-2022 Miscellaneous Notes* Telephone Encounter - Italia Ackerman RN - 02/05/2022 1:37 PM EDT Work extension paperwork received, completed and faxed to number requested. Faxed verification received. documented in this encounterSumma Health Wad[facility] Center10-19-2022 Miscellaneous Notes* Telephone Encounter - [...] us know. * Telephone Encounter - Britt Moreno - 01/31/2022 3:33 PM EDT Patient called with complaints of severe Rt leg pain. She had surgery on 12/19/21. Please call to advise at [phone] documented in this encounterSumma Health W[facility]10-11-2022 Miscellaneous Notes* Telephone Encounter - Italia Ackerman RN - 01/23/2022 9:34 AM EDT Letter faxed to number requested. Faxed verification received. documented in this encounterSumma Health Wad[facility]09-07-2022 Miscellaneous Notes* Telephone Encounter - Radha Mederos [...] Patient would appreciate a call back at [phone]. documented in this encounterSumma Health W[facility]09-06-2022 NoteHNO ID: [id number] Author: BRENNON Ma Service: Anesthesiology Author Type: Box Person Type: Anesthesia Procedure Notes Filed: 12/19/2021 8:02 [...] December 19, 2021 TIME: 8:01 AM CSN: [id number] Miscellaneous Notes* Telephone Encounter - Maryann Matthews - 12/12/2021 3:26 PM EDT Short term disability paperwork has been sent to scanning. Date of service 04/15/21 documented in this encounterSumma Health [facility]08-29-2022 Miscellaneous Notes* Telephone Encounter - [...] reflecting the increase dosage documented in this encounterSumma Health Wadsworth - [facility]08-25-2022 Miscellaneous Notes* Telephone Encounter - Italia Ackerman RN - 12/07/2021 3:50 PM EDT Note faxed as requested. Faxed verification received. * Telephone Encounter - Susie Myles - 12/07/2021 2:58 PM EDT Ankush from [facility] calling to get clinicals from neurosurgeon, saying he needs them to complete the prior auth for surgery. States that if he does not have them within 30 - 40 minutes, that the case will be closed and a new prior authorization would need to be completed. Ph. [phone] fax [phone] documented in this encounterSumma Health Wadsworth [facility]08-25-2022 History of Present illness Narrative* Konstantin Kirkland MD - 12/07/2021 3:03 PM EDT Images from the original note were not included. SPINE SURGERY NEW PATIENT PCP: Yana Ballard APRN.DIRECTOR OF SLEEP REFERRING PROVIDER: Dr. Feng Wright SUBJECTIVE HISTORY [...] TIME: 3:03 PM PAGER: documented in this encounterSumma Health Wadsworth - [facility]08-24-2022 History and physical note * Barbara James APRN.MANDEEP - 12/06/2021 1:50 PM EDT HISTORY AND PHYSICAL EXAMINATION SERVICE DATE: 12/06/2021 SERVICE TIME: 2:00 PM PRIMARY CARE PHYSICIAN: Yana Ballard APRN.DIRECTOR OF SLEEP REASON FOR VISIT: Hannah Hendricks is a [...] fevers. Neuro: No history of TIA's, stroke, SHREDDER PICKER tumor, impaired sensorium, hemiplegia, paraplegia or quadraplegia. No neurological symptoms or problems. Respiratory: No history of current cough or dyspnea, or pneumonia in the past 6 weeks. No history of respiratory/pulmonary symptoms or problems. Cardiovascular: No history of HTN requiring medication, no history of angina, CHF, UT, cardiac surgery or stents. Denies rest pain, gangrene or revascularization/amputation for PVD. No history of cardiovascular symptoms or problems. GI: No history of GI symptoms or problems. No history of esophageal varices, recent ascites, or ETOH greater than 2 drinks per day. : No history of dysuria, frequency or incontinence,, stones or chronic kidney disease OCTAVE BOARD ASSEMBLER: Negative for abnormal vaginal bleeding, abnormal vaginal [...] 2021 TIME: 2:00 PM documented in this encounterSumma Health Wad[facility]08-24-2022 Instructions* Patient Instructions* Barbara James APRN.CNP - 12/06/2021 7:49 AM EDT PATIENT PREOPERATIVE INSTRUCTIONS Konstantin Kirkland MD has scheduled you for your procedure at this surgery center: [facility]: [phone] --[address] [place] [address]. On your scheduled day of surgery, please [...] Procedures: - YOU MUST HAVE A RESPONSIBLE PUBLIC SAFETY TELECOMMUNICATOR TAKE YOU HOME. A SPEECH PATHOLOGY SUPERVISOR OR BOOTH SUPERVISOR CANNOT BE MADE A RESPONSIBLE PUBLIC SAFETY TELECOMMUNICATOR. - We recommend that a responsible person [...] Advance Directive, please fax a copy to [phone] or email to for it to be [...] your chart that day. documented in this encounterSumma Health Wadsworth [facility] Center08-22-2022 Nurse Note* Italia Ackerman RN - 12/04/2021 3:50 PM EDT Neuro SPINE CARE COORDINATION PRE-OP VISIT Met with patient and family member for pre op education. Given both written and verbal instructionsre : Skin prep, wound care, pain management and post op restrictions. Provided to patient: [facility] Surgery Guide, skin prep supplies, Spine Surgery Pre/post op education packet. Yes. Reviewed with patient to report to the registration desk for surgery? Yes. Reviewed with the patient that a surgery pharmaceutical service representative will call the working day prior [...] lab work : to be completed at [facility]. Questions answered. Patient verbalizes understanding via teach back. Additional comments : Informed to call with any questions or concerns. Italia Ackerman RN documented in this encounterSumma Health Wadsworth - [facility]08-22-2022 History of Present illness Narrative* Ashwini Cadet, OPAL.[facility] - 12/04/2021 11:32 AM EDT VIRTUAL VISIT PROGRESS NOTE This is a virtual visit using Ivisys video visit. It required patient-provider interaction for [...] and she has been eating bananas and mkjotesrwg-xcd-egsnked. She is not sure if she should be on prescription strength and has reached out to her PCP She reports walking decreases her pain but she is still experiencing the pins and needles She reports throbbing in the low back and right buttocks She has been using a "comfy cushion" she purchased from [employer] She has an appt today with Dr. Kirkland. PLAN: Appt with Dr. Kirkland today Trying to stretch Continue gabapentin and robaxin as needed 4. Follow up to be determined There are no Patient Instructions on file for this visit. I spent a total of 20 minutes on the date of the service which included preparing to see the patient, rstq-yg-cgrk patient care, and completing clinical documentation Ashwini Cadet APRN.CNP documented in this encounterSumma Health Wad[facility]08-12-2022 Miscellaneous Notes* Telephone Encounter - Ashwini Cadet APRN.CNP - 11/24/2021 3:25 PM EDT Paperwork completed * Telephone Encounter - Kristan Castellano Ma - 11/23/2021 10:30 AM EDT STD paperwork received via fax. Please allow 7-10 business days for completion. Forwarded to provider for review. documented in this encounterSumma Health Wadsworth [facility]08-10-2022 History of Present illness Narrative* Ashwini Cadet APRN.CNP - 11/22/2021 10:05 AM EDT VIRTUAL VISIT PROGRESS NOTE This is a virtual visit using Ivisys video visit. It required patient-provider interaction for [...] right posterior lower extremity She is experiencing yfjt-zxx-xyorlid and tingling in the right leg and [...] which included preparing to see the patient, cfna-pc-jtys patient care, and completing clinical documentation Ashwini Cadet APRN.CNP documented in this encounterSumma Health Wadsworth - [facility]08-05-2022 History of Present illness Narrative* Ashwini Cadet APRN.CNP - 11/17/2021 9:42 AM EDT VIRTUAL VISIT PROGRESS NOTE This is a virtual visit using Ivisys video visit. It required patient-provider interaction for [...] called 911 and was transported to the [facility]. While in the ER she was [...] to spine surgery consult Discussed sending a Ivisys message in a week to report how [...] which included preparing to see the patient, ibef-bc-xkim patient care, completing clinical documentation and ordering medications, tests, or procedures Ashwini Cadet APRN.MANDEEP documented in this encounterSumma Health Wadsworth [facility]08-04-2022 Miscellaneous Notes* Telephone Encounter - Elli South - 11/16/2021 4:55 PM EDT Patient was phoned and given the message below. Patient verbalized understanding. Elli South * Telephone Encounter - Alma Bello APRN.MANDEEP - 11/16/2021 3:58 PM EDT Please inform [...] about that change. Patient also advised the [place] [facility] provider placed a referral for the patient to see a Spinal Surgeon and that she should be receiving a call today to schedule that consult. Please advise, Elli South documented in this encounterSumma Health Wadsworth [facility]08-03-2022 History of Present illness Narrative* Dulce Wong APRN.MANDEEP - 11/15/2021 6:38 PM EDT Images from the original note were not included. [employer] November 15, 2021 Hannah Hendricks 1990 [...] Dulce Wong APRN.CNP Telemedicine documented in this encounterSumma Health Wadsworth - [facility]07-25-2022 Miscellaneous Notes* Telephone Encounter - [...] Triplett, et al. 2017 Guidelines of the [place] Thyroid Association for the Diagnosis and Management of Thyroid Disease during and the . Thyroid, 2017:27:3:315-389. Pharmacy has been captured: Yes. Patient prefers: [facility]. documented in this encounterSumma Health Wadsworth - [facility]07-21-2022 Miscellaneous Notes* Telephone Encounter - Alma Bello APRN.CNP - 11/02/2021 1:28 PM EDT Entered in error documented in this encounterSumma Health Wadsworth - [facility]itt[facility] Center06-29-2022 History of Present illness Narrative* Feng Wright MD - 10/11/2021 9:21 AM EDT [facility] Pain Management Department Date: October 11, [...] Panel: No results found for: UQCANN, UQBNZL, QMM8XEU, UQAMPH, UQMAMP, UQBUPRE, UQNORBUP, UQMTHD, UQEDDP, UQTRAM, [...] diagnostic tests reviewed for today's visit: The [facility] EMR was reviewed during thevisit IMAGING [...] but also diagnostic information that procedures provide. shank skinner use of any opioid pain medication is [...] October 11, 2021 cc: Yana Ballard [id number] [facility] [id number] [facility] [id number] Results of consultation to be transmitted via electronic medical record for those providers who practice within [facility] or with access to [employer] via MD Connect, or via letter. documented in this encounterSumma Health Wadsworth [facility]06-28-2022 Miscellaneous Notes* Telephone Encounter - Melania Chinchilla - 10/10/2021 10:50 AM EDT Patient was scheduled for 10/11/21 with pain management. No further action needed. Melania Chinchilla * Telephone Encounter - Yana Ballard APRN.CNP - 10/10/2021 6:53 AM EDT Please assist patient with scheduling in pain management. Dr. Santiago is preferred if appt available upcoming. Thank you. documented in this encounterSumma Health Wadsworth [facility]06-25-2022 Miscellaneous Notes* Telephone Encounter - [...] BALLARD APRN.CNP * Telephone Encounter - Krystin Spangler Ma - 10/06/2021 11:38 AM EDT Mychart message [...] 0.110-3.980 mcIU/mL Third Trimester: 0.480-4.710 mcIU/mL Matteo Law, et al. A Practical Approach for the Verifications and Determination of Site- and Trimester-Specific Reference Intervals for Thyroid Function tests in . Thyroid, 2019:29:3:412-420. Oni Triplett et al. 2017 Guidelines of the [place] Thyroid Association for the Diagnosis and Management of Thyroid Disease during and the . Thyroid, 2017:27:3:315-389. Pharmacy has been captured: Yes. Patient prefers: [facility] Krystin Spangler Ma documented in this encounterSumma Health Wadsworth [facility]06-25-2022 Miscellaneous Notes* Telephone Encounter - [...] is she feeling currently? documented in this encounterSumma Health Wadsworth - [facility]06-23-2022 History of Present illness Narrative* Viola Martínez, RT(R) - 10/05/2021 6:40 PM EDT Radiology Service [...] 05, 2021 6:27 PM documented in this encounterSumma Health Wadsworth - [facility]06-07-2022 History of Present illness Narrative* Yana Ballard, SPECIAL SERVICES SUPERVISOR.DIRECTOR OF SLEEP - 09/19/2021 10:40 AM EDT HPI: Hannah [...] which included preparing to see the patient, fvqm-rk-auzt patient care, completing clinical documentation, obtaining and/or reviewing separately obtained history, performing a medically appropriate examination, counseling and educating the pat ient/family/caregiver and ordering medications, tests, or procedures. Yana Ballard APRN.MANDEEP documented in this encounterSumma Health Wadsworth - [facility]06-02-2022 Hospital Discharge instructions Patient Education 09/13/2021 23:57:30 Back Exercises, Ckjx-mx-Iifq Back Exercises These exercises help to make [...] 05/04/2011 Document Revised: 12/25/2018 Document Reviewed: 12/25/2018 [employer] Patient Education [employer]. Follow Up Care 09/13/2021 20:31:41 With:Santana Vidal Address: [address] [place] [phone] Business (1) When:09/16/2021 Comments:Take the prednisone daily until you have completed the course you can use the Robaxin, [place] as prescribed as needed for pain. Use lidocaine patch daily. Please follow-up with your primary care doctor and orthopedic for further evaluation management. With:Severiano Wallace Address: [address] [place] [id number] Business (1) When:Within 3 Day(s) [facility] No data available for this section [facility] note* Diagnosis Spinal stenosis of lumbar region without neurogenic claudication Spinal stenosis, lumbar region, without neurogenic claudication documented in this encounter [facility] CenterEvaluation [facility]* Diagnosis Spinal stenosis of lumbar region without neurogenic claudication Spinal stenosis, lumbar region, without neurogenic claudication documented in this encounter [facility] CenterEvaluation [facility]* Diagnosis Lumbar disc herniation- Primary Displacement of lumbar intervertebral disc without myelopathy [facility] this encounter [facility]* Diagnosis Spinal stenosis of lumbar region without neurogenic claudication Spinal stenosis, lumbar region, without neurogenic claudication documented in this encounter [facility] CenterEvaluation [facility]* Diagnosis Radiculopathy, lumbar region- Primary Thoracic or lumbosacral neuritis or radiculitis, unspecified Lumbar disc herniation Displacement of lumbar intervertebral disc without myelopathy documented in this encounter [facility]* Diagnosis Lumbar disc herniation- Primary Displacement of lumbar intervertebral disc without myelopathy Radiculopathy, lumbar region Thoracic or lumbosacral neuritis or radiculitis, unspecified documented in this encounter [facility]* Diagnosis Spinal stenosis of lumbar region without neurogenic claudication Spinal stenosis, lumbar region, without neurogenic claudication documented in this encounter [facility]* Diagnosis Treatment not available- Primary Procedure not carried out for other reasons documented in this encounter [facility]* Diagnosis Hypokalemia- Primary Hypopotassemia Hypomagnesemia Disorders of magnesium metabolism documented in this encounter [facility]* Diagnosis Lumbar disc herniation- Primary Displacement of lumbar intervertebral disc without myelopathy Radiculopathy, lumbar region Thoracic or lumbosacral neuritis or radiculitis, unspecified documented in this encounter [facility]* Diagnosis Lumbar disc herniation- Primary Displacement of lumbar intervertebral disc without myelopathy Radiculopathy, lumbar region Thoracic or lumbosacral neuritis or radiculitis, unspecified Hypokalemia Hypopotassemia Hypomagnesemia Disorders of magnesium metabolism documented in this encounter [facility]* Diagnosis Lumbar disc herniation- Primary Displacement of lumbar intervertebral disc without myelopathy Radiculopathy, lumbar region Thoracic or lumbosacral neuritis or radiculitis, unspecified documented in this encounter [facility]* Diagnosis Hypokalemia- Primary Hypopotassemia Hypomagnesemia Disorders of magnesium metabolism documented in this encounter [facility]* Diagnosis Pre-op testing- Primary Preoperative examination, unspecified Lumbar disc herniation Displacement of lumbar intervertebral disc without myelopathy Radiculopathy, lumbar region Thoracic or lumbosacral neuritis or radiculitis, unspecified Lumbar disc herniation Displacement of lumbar intervertebral disc without myelopathy Radiculopathy, lumbar region Thoracic or lumbosacral neuritis or radiculitis, unspecified documented in this encounter [facility]* Diagnosis Pre-op evaluation- Primary Preoperative examination, unspecified Lumbar disc herniation Displacement of lumbar intervertebral disc without myelopathy Known health problems: none Lumbar disc herniation Displacement of lumbar intervertebral disc without myelopathy Radiculopathy, lumbar region Thoracic or lumbosacral neuritis or radiculitis, unspecified documented in this encounter [facility]* Diagnosis Radiculopathy, lumbar region- Primary Thoracic or lumbosacral neuritis or radiculitis, unspecified Lumbar disc herniation Displacement of lumbar intervertebral disc without myelopathy Radiculopathy, lumbar region Thoracic or lumbosacral neuritis or radiculitis, unspecified documented in this encounter [facility]* Diagnosis Lumbar herniated disc- Primary Displacement of lumbar intervertebral disc without myelopathy documented in this encounter [facility]* Diagnosis Lumbar radiculopathy- Primary Thoracic or lumbosacral neuritis or radiculitis, unspecified documented in this encounter [facility]* Diagnosis Spinal stenosis of lumbar region with neurogenic claudication- Primary Spinal stenosis, lumbar region, with neurogenic claudication documented in this encounter [facility]* Diagnosis Pre-op testing- Primary Preoperative examination, unspecified Spinal stenosis of lumbar region with neurogenic claudication Spinal stenosis, lumbar region, with neurogenic claudication Spinal stenosis of lumbar region with neurogenic claudication Spinal stenosis, lumbar region, with neurogenic claudication documented in this encounter [facility]* Diagnosis Spinal stenosis of lumbar region with neurogenic claudication Spinal stenosis, lumbar region, with neurogenic claudication Spinal stenosis of lumbar region with neurogenic claudication Spinal stenosis, lumbar region, with neurogenic claudication documented in this encounter [facility]* Diagnosis Pre-op evaluation- Primary Preoperative examination, unspecified Pre-op testing Preoperative examination, unspecified Electronic cigarette use Spinal stenosis of lumbar region with neurogenic claudication Spinal stenosis, lumbar region, with neurogenic claudication documented in this encounter [facility]* Diagnosis Radiculopathy, lumbar region- Primary Thoracic or lumbosacral neuritis or radiculitis, unspecified documented in this encounter [facility]* Diagnosis Radiculopathy, lumbar region Thoracic or lumbosacral neuritis or radiculitis, unspecified Chronic bilateral low back pain with right-sided sciatica documented in this encounter [facility]* Diagnosis Radiculopathy, lumbar region- Primary Thoracic or lumbosacral neuritis or radiculitis, unspecified documented in this encounter [facility]* Diagnosis Chronic bilateral low back pain with right-sided sciatica- Primary documented in this encounter [facility]* Diagnosis Chronic bilateral low back pain with right-sided sciatica- Primary documented in this encounter [facility]* Diagnosis Chronic bilateral low back pain with right-sided sciatica- Primary documented in this encounter [facility]* Diagnosis Chronic bilateral low back pain with right-sided sciatica- Primary documented in this encounter [facility]* Diagnosis Chronic bilateral low back pain with right-sided sciatica- Primary documented in this encounter [facility]Evaluch[facility] hospital noteNo assessment information availableWBlanchard Valley Health System Work Phone: Evaluation note* Diagnosis Radiculopathy, lumbar region- Primary Thoracic or lumbosacral neuritis or radiculitis, unspecified documented in this encounter [facility]* Diagnosis Chronic bilateral low back pain with right-sided sciatica- Primary documented in this encounter [facility]* Diagnosis Chronic bilateral low back pain with right-sided sciatica- Primary documented in this encounter [facility]* Diagnosis Radiculopathy, lumbar region- Primary Thoracic or lumbosacral neuritis or radiculitis, unspecified Spinal stenosis of lumbar region with neurogenic claudication Spinal stenosis, lumbar region, with neurogenic claudication documented in this encounter [facility]* Diagnosis Spinal stenosis of lumbar region with neurogenic claudication Spinal stenosis, lumbar region, with neurogenic claudication documented in this encounter [facility]* Diagnosis Diarrhea, unspecified type- Primary documented in this encounter [facility] CenterProgress note Author Ximena Mcghee [facility] Note Date/Time September 14, 2024 9:34a m [facility] [address], [address] [place] [address] OFFICE VISIT Date of Service: 09/14/24 MR#: [id number] Acct: [id number] Name: HANNAH HENDRICKS Rep #: [id number] : 1990 Provider: BART Mcghee Age/Sex: 34/F Location[place] [facility] Status: Signed Intake Vital Signs 07/20/24 13:59 08/17/24 08:32 09/14/24 08:59 Height 5 ft 6 in 5 ft 6 in 5 ft 6 in Weight: 190 lb 2 oz BMI 30.7 BP 106/71 Intake Visit Reasons: 17wk ob Chief Complaint: 17wk OB Software Trainer Required: No Is patient in pain?: No [...] current occupational status: employed current occupation: [employer] current occupational exposures/hazards: No pets and animals: [...] 3-4 times per week duration: 15-30 minutes/day agata/adventist: Rastafari seatbelt use: always do you feel safe at home: Yes 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 Date Name GA/Weeks Outcome Route Bth Weight Infant Gen Labor Lgth Anesthesia Del Locatn Provider FOB 08/11/20 Janie 39 live - full term 7lbs 8.5oz Female epidural [facility] Dr. Quang Samaniego 03/15/24 4 spontaneous Delivery [...] this visit. [place] appropriate handout given. 09/14/24 [id number] <Electronically signed by Ximena benitez CNM> Date _ Ximena Mcghee CNM Cosigner Signature: Date (if applicable) CC: ~ [facility] Work Phone: Progress note Author Ximena Mcghee [facility] Note Date/Time November 09, 2024 9:25 am [facility] [address] [place] [address], [address] [place] [address] OFFICE VISIT Date of Service: 11/09/24 MR#: [id number] Acct: [id number] Name: HNANAH HENDRICKS Rep #: [id number] : 1990 Provider: BART Mchgee Age/Sex: 34/F [place] [facility] [place]: Signed Intake Vital Signs 08/17/24 08:32 10/12/24 15:54 11/09/24 08:55 11/09/24 08:55 Height 5 ft 6 in 5 ft 6 in 5 ft 6 in 5 ft 6 in Weight: 202 lb 6 oz BMI 32.6 BP 104/71 Intake Visit Reasons: 25 wk ob Chief Complaint: 25wk OB Software Trainer Required: No Is patient in pain?: No [...] current occupational status: employed current occupation: [employer] current occupational exposures/hazards: No pets and animals: [...] 3-4 times per week duration: 15-30 minutes/day agata/adventist: Rastafari seatbelt use: always do you feel safe at home: Yes 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 Date Name GA/Weeks Outcome Route Bth Weight Infant Gen Labor Lgth Anes t hesia Del Locatn Provider FOB 08/11/20 Janie 39 live - full term 7lbs 8.5oz Female epidural [facility] Dr. Quang Samaniego 03/15/24 4 spontaneous Delivery [...] Supervision of high risk in second trimester O. Trimester: second trimester 24 weeks gestation of [...] at this visit. GA appropriate handout given. 11/09/24924 <Electronically signed by Ximena benitez CNM> Date _ Ximena Mcghee CNM Cosigner Signature: Date (if applicable) CC: ~ [facility] Work Phone: Progress note Author Barbie Mitchell [facility] Note Date/Time December 28, 2024 9:59am [facility] [address] [place] [address], [address] [place] [address] OFFICE VISIT Date of Service: 12/28/24 MR#: [id number] Acct: [id number] Name: HANNAH HENDRICKS Rep #: [id number] : 1990 Provider: SHAWN Mitchell Age/Sex: 34/F [place] [facility] [place] Status: Signed Intake Vital Signs 11/09/24 08:55 12/15/24 09:22 12/28/24 09:45 12/28/24 09:50 Height 5 ft 6 in 5 ft 6 in 5 ft 6 in 5 ft 6 in Weight: 210 lb BMI 33.9 BP 118/72 Intake Visit Reasons: 32wk ob Chief Complaint: 32 Week OB Software Trainer Required: No Is patient in pain?: No [...] current occupational status: employed current occupation: [employer] current occupational exposures/hazards: No pets and animals: [...] 3-4 times per week duration: 15-30 minutes/day agata/adventist: Rastafari seatbelt use: always do you feel safe at home: Yes 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 Date Name GA/Weeks Outcome Route Bth Weight Gen Labor Lgth Anesthesia Del Locatn Provider FOB 08/11/20 Janie 39 live - full term 7lbs 8.5oz Female epidural [facility] Dr. Quang Samaniego 03/15/24 4 spontaneous Delivery [...] updated. Continue routine care and follow up. 12/28/2459 <Electronically signed by Barbie benitez SENIOR PRODUCTION SUPERVISOR SENIOR PRODUCTION SUPERVISOR-C> Date _ Barbie Mitchell SENIOR PRODUCTION SUPERVISOR SENIOR PRODUCTION SUPERVISOR-C Cosigner Signature: Date (if applicable) CC: ~ [facility] Work Phone: Progress note Author Ximena Mcghee [facility] Note Date/Time January 11, 2025 10:42am [facility] [address], [address] [place] [address] OFFICE VISIT Date of Service: 01/11/25 MR#: [id number] Acct: [id number] Name: HANNAH HENDRICKS Rep #: [id number] : 1990 Provider: BART Mcghee Age/Sex: 34/F Location[place] [facility] [place] Status: Signed Intake Vital Signs 12/01/24 08:19 01/11/25 09:59 01/11/25 09:59 Height 5 ft 6 in 5 ft 6 in 5 ft 6 in Weight: 215 lb 5 oz BMI 34.7 BP 118/75 Intake Visit Reasons: 34 WK OB Software Trainer Required: No Is patient in pain?: No [...] current occupational status: employed current occupation: [employer] current occupational exposures/hazards: No pets and animals: [...] 3-4 times per week duration: 15-30 minutes/day agata/adventist: Rastafari seatbelt use: always do you feel safe at home: Yes 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 Date Name GA/Weeks Outcome Route Bth Weight Infant Gen Labor Lgth Anesthesia Del Locatn Provider FOB 08/11/20 Janie 39 live - full term 7lbs 8.5oz Female epidural [facility] Dr. Quang Samaniego 03/15/24 4 spontaneous Delivery [...] 119/75 Nega tive -?-?-?-?-?-?-?-?-?-?-?-?- Negative 140 -?-?-?-?-?-?-?-?-?-?-?-?- - no vb crampi ng 11/09/24 -?-?-?-?-?-?-?-?-?-?-?-?- 24w [...] Enc RSV vaccine. 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 No April 01, 2024 5:32pm Reason for Referral Specialty Diagnoses / Procedures Referred By Contac t Referred To Contact [facility] Diagnoses Chronic bilateral low back pain with right-sided sciatica Procedures PT REHAB FOLLOW UP ORDER THERAPEUTIC EXERCISES RE, EA 15 MIN. Pt [facility] [address] [place] [address] [facility] [place] [address] [place] [address] Referral ID Status Reason Start Date Expiration Date Visits Requested Visits Authorized [id number] Pending Review PCP Requested Referral Auto-Generate d Referral 07/16/2022 10/14/2022 1 1 Specialty Diagnoses / Procedures Referred By Contac t Referred To Contact [facility] Diagnoses Radiculopathy, lumbar region Procedures CONSULT TO PHYSICAL THERAPY PHYSICAL THERAPY EVALUATION HIGH COMPLEX [address] [place] [address] [place] [address] [facility] [place] [address] [place] [id number] Referral ID Status Reason Start Date Expiration Date Visits Requested Visits Authorized [id number] Pending Review Auto-Generat ed Referral 2 04/04/2023 1 1 Specialty Diagnoses / Procedures Referred By Contac t Referred To Contact [facility] Diagnoses Lumbar radiculopathy Procedures CONSULT TO PHYSICAL THERAPY PHYSICAL THERAPY EVALUATION HIGH COMPLEX [address] [place] [address] [place] [address] [facility] [address] [place] [address] Referral ID Status Reason Start Date Expiration Date Visits Requested Visits Authorized [id number] Pending Review Auto-Generat ed Referral 2 03/05/2023 1 1 Specialty Diagnoses / Procedures Referred By Contac t Referred To Contact Diagnoses Pre-op testing Procedures REFER TO PACC - PRE ANESTHESIA CONSULTATION CLINIC OFFICE/OUTPATIENT [facility] 60-74 MINUTES Dharmesh Louise PA-C [address] [place] [address] Referral ID Status Reason Start Date Expiration Date Visits Requested Visits Authorized [id number] Pending Review PCP Requested Referral 12/05/2021 12/05/2022 1 1 Specialty Diagnoses / Procedures Referred By Contac t Referred To Contact Yana Ballard APRN.[facility] [address] [facility] [id number] [place] [address] Referral ID Status Reason Start Date Expiration Date V isits Requested Visits Authorized [id number] Pending Review 1 1 Specialty Diagnoses / Procedures Referred By Contac t Referred To Contact Pain Management Diagnoses Lumbar disc herniation Procedures CONSULT TO PAIN MGT OFFICE/OUTPATIENT [facility] 60-74 MINUTES Yana Ballard APRN.DIRECTOR OF SLEEP [address] [facility] [place] [address] Referral ID Status Reason Start Date Expiration Date Visits Requested Visits Authorized [id number] Pending Review PCP Requested Referral 10/06/2021 10/06/2022 1 1 Specialty Diagnoses / Procedures Referred By Contac t Referred To Contact MR IMAGING Diagnoses Spinal stenosis of lumbar region without neurogenic claudication Procedures MRI LUMBAR SPINE WO IVCON MRI SPINAL CANAL LUMBAR W/O CONTRAST MATERIAL Yana Ballard APRN.CNP [address] [facility] [place] [address] Mr Imaging Referral ID Status Reason Start Date Expiration Date Visits Requested Visits Authorized [id number] Authorized Auto-Generat ed Referral 09/19/2021 10/19/2022 1 [...] July 03, 2024 1:0 6pm NOB LMP 2/July 20, 2024 1:53 pm Heart tone check [...] pm Chief Complaint Admit Date NOB LMP 2/July 20, 2024 1:53 pm Heart tone check [...] 28, 2024 9:42am Supervision of high-risk Septe 2024 9:42am Chief Complaint Admit Date 21wk [...] 28, 2024 9:42am Supervision of high-risk Septe 2024 9:42am Anxiety January 11, 2025 10:15am January 11, 2025 10:15am Supervision of high-risk Septe 2024 10:15am Additional Source Comments INFORMATION SOURCE (unrecogn ized section and content) DATE CREATED AUTHOR 09/15/2021 [facility] DATE CREATED AUTHOR AUTHOR'S ORGANIZ ATION 03/21/2022 [facility] DATE CREATED AUTHOR AUTHOR'S ORGANIZ ATION 02/10/2023 [facility] DATE CREATED AUTHOR AUTHOR'S ORGANIZ ATION 05/18/2023 [facility] DATE CREATED AUTHOR AUTHOR'S ORGANIZ ATION 08/04/2023 [facility] DATE CREATED AUTHOR AUTHOR'S ORGANIZ ATION 10/09/2024 [facility] DATE CREATED AUTHOR AUTHOR'S ORGANIZ ATION 02/05/2025 [facility] Source Comments (unrecognize d section and content) In the event this informatio n is protected by the Federal Confidentiality of Alcohol and Drug Abuse Patient Records regulations: The Federal rules restrict any use of the information to criminally investigate or prosecute any alcohol or drug abuse patient.[facility] the event this information is protected by the Federal Confidentiality of Alcohol and Drug Abuse Patient Records regulations: The Federal rules restrict any use of the information to criminally investigate or prosecute any alcohol or drug abuse patient.[facility] CenterIn the event this information is protected by the Federal Confidentiality of Alcohol and Drug Abuse Patient Records regulations: The Federal rules restrict any use of the information to criminally investigate or prosecute any alcohol or drug abuse patient.[facility] CenterIn the event this information is protected by the Federal Confidentiality of Alcohol and Drug Abuse Patient Records regulations: The Federal rules restrict any use of the information to criminally investigate or prosecute any alcohol or drug abuse patient.[facility]In the event this information is protected by the Federal Confidentiality of Alcohol and Drug Abuse Patient Records regulations: The Federal rules restrict any use of the information to criminally investigate or prosecute any alcohol or drug abuse patient.[facility] CenterIn the event this information is protected by the Federal Confidentiality of Alcohol and Drug Abuse Patient Records regulations: The Federal rules restrict any use of the information to criminally investigate or prosecute any alcohol or drug abuse patient.[facility] CenterIn the event this information is protected by the Federal Confidentiality of Alcohol and Drug Abuse Patient Records regulations: The Federal rules restrict any use of the information to criminally investigate or prosecute any alcohol or drug abuse patient.[facility] CenterIn the event this information is protected by the Federal Confidentiality of Alcohol and Drug Abuse Patient Records regulations: The Federal rules restrict any use of the information to criminally investigate or prosecute any alcohol or drug abuse patient.[facility] CenterIn the event this information is protected by the Federal Confidentiality of Alcohol and Drug Abuse Patient Records regulations: The Federal rules restrict any use of the information to criminally investigate or prosecute any alcohol or drug abuse patient.[facility] CenterIn the event this information is protected by the Federal Confidentiality of Alcohol and Drug Abuse Patient Records regulations: The Federal rules restrict any use of the information to criminally investigate or prosecute any alcohol or drug abuse patient.[facility] CenterIn the event this information is protected by the Federal Confidentiality of Alcohol and Drug Abuse Patient Records regulations: The Federal rules restrict any use of the information to criminally investigate or prosecute any alcohol or drug abuse patient.[facility] CenterIn the event this information is protected by the Federal Confidentiality of Alcohol and Drug Abuse Patient Records regulations: The Federal rules restrict any use of the information to criminally investigate or prosecute any alcohol or drug abuse patient.[facility] CenterIn the event this information is protected by the Federal Confidentiality of Alcohol and Drug Abuse Patient Records regulations: The Federal rules restrict any use of the information to criminally investigate or prosecute any alcohol or drug abuse patient.[facility] CenterIn the event this information is protected by the Federal Confidentiality of Alcohol and Drug Abuse Patient Records regulations: The Federal rules restrict any use of the information to criminally investigate or prosecute any alcohol or drug abuse patient.[facility] CenterIn the event this information is protected by the Federal Confidentiality of Alcohol and Drug Abuse Patient Records regulations: The Federal rules restrict any use of the information to criminally investigate or prosecute any alcohol or drug abuse patient.[facility] CenterIn the event this information is protected by the Federal Confidentiality of Alcohol and Drug Abuse Patient Records regulations: The Federal rules restrict any use of the information to criminally investigate or prosecute any alcohol or drug abuse patient.[facility] CenterIn the event this information is protected by the Federal Confidentiality of Alcohol and Drug Abuse Patient Records regulations: The Federal rules restrict any use of the information to criminally investigate or prosecute any alcohol or drug abuse patient.[facility] CenterIn the event this information is protected by the Federal Confidentiality of Alcohol and Drug Abuse Patient Records regulations: The Federal rules restrict any use of the information to criminally investigate or prosecute any alcohol or drug abuse patient.[facility] CenterIn the event this information is protected by the Federal Confidentiality of Alcohol and Drug Abuse Patient Records regulations: The Federal rules restrict any use of the information to criminally investigate or prosecute any alcohol or drug abuse patient.[facility] CenterIn the event this information is protected by the Federal Confidentiality of Alcohol and Drug Abuse Patient Records regulations: The Federal rules restrict any use of the information to criminally investigate or prosecute any alcohol or drug abuse patient.[facility] CenterIn the event this information is protected by the Federal Confidentiality of Alcohol and Drug Abuse Patient Records regulations: The Federal rules restrict any use of the information to criminally investigate or prosecute any alcohol or drug abuse patient.[facility] CenterIn the event this information is protected by the Federal Confidentiality of Alcohol and Drug Abuse Patient Records regulations: The Federal rules restrict any use of the information to criminally investigate or prosecute any alcohol or drug abuse patient.[facility] CenterIn the event this information is protected by the Federal Confidentiality of Alcohol and Drug Abuse Patient Records regulations: The Federal rules restrict any use of the information to criminally investigate or prosecute any alcohol or drug abuse patient.[facility] CenterIn the event this information is protected by the Federal Confidentiality of Alcohol and Drug Abuse Patient Records regulations: The Federal rules restrict any use of the information to criminally investigate or prosecute any alcohol or drug abuse patient.[facility] CenterIn the event this information is protected by the Federal Confidentiality of Alcohol and Drug Abuse Patient Records regulations: The Federal rules restrict any use of the information to criminally investigate or prosecute any alcohol or drug abuse patient.[facility] CenterIn the event this information is protected by the Federal Confidentiality of Alcohol and Drug Abuse Patient Records regulations: The Federal rules restrict any use of the information to criminally investigate or prosecute any alcohol or drug abuse patient.[facility] CenterIn the event this information is protected by the Federal Confidentiality of Alcohol and Drug Abuse Patient Records regulations: The Federal rules restrict any use of the information to criminally investigate or prosecute any alcohol or drug abuse patient.[facility] CenterIn the event this information is protected by the Federal Confidentiality of Alcohol and Drug Abuse Patient Records regulations: The Federal rules restrict any use of the information to criminally investigate or prosecute any alcohol or drug abuse patient.[facility] CenterIn the event this information is protected by the Federal Confidentiality of Alcohol and Drug Abuse Patient Records regulations: The Federal rules restrict any use of the information to criminally investigate or prosecute any alcohol or drug abuse patient.[facility] CenterIn the event this information is protected by the Federal Confidentiality of Alcohol and Drug Abuse Patient Records regulations: The Federal rules restrict any use of the information to criminally investigate or prosecute any alcohol or drug abuse patient.[facility] CenterIn the event this information is protected by the Federal Confidentiality of Alcohol and Drug Abuse Patient Records regulations: The Federal rules restrict any use of the information to criminally investigate or prosecute any alcohol or drug abuse patient.[facility] CenterIn the event this information is protected by the Federal Confidentiality of Alcohol and Drug Abuse Patient Records regulations: The Federal rules restrict any use of the information to criminally investigate or prosecute any alcohol or drug abuse patient.[facility] CenterIn the event this information is protected by the Federal Confidentiality of Alcohol and Drug Abuse Patient Records regulations: The Federal rules restrict any use of the information to criminally investigate or prosecute any alcohol or drug abuse patient.[facility] CenterIn the event this information is protected by the Federal Confidentiality of Alcohol and Drug Abuse Patient Records regulations: The Federal rules restrict any use of the information to criminally investigate or prosecute any alcohol or drug abuse patient.[facility] CenterIn the event this information is protected by the Federal Confidentiality of Alcohol and Drug Abuse Patient Records regulations: The Federal rules restrict any use of the information to criminally investigate or prosecute any alcohol or drug abuse patient.[facility] CenterIn the event this information is protected by the Federal Confidentiality of Alcohol and Drug Abuse Patient Records regulations: The Federal rules restrict any use of the information to criminally investigate or prosecute any alcohol or drug abuse patient.[facility] CenterIn the event this information is protected by the Federal Confidentiality of Alcohol and Drug Abuse Patient Records regulations: The Federal rules restrict any use of the information to criminally investigate or prosecute any alcohol or drug abuse patient.[facility] CenterIn the event this information is protected by the Federal Confidentiality of Alcohol and Drug Abuse Patient Records regulations: The Federal rules restrict any use of the information to criminally investigate or prosecute any alcohol or drug abuse patient.[facility] CenterIn the event this information is protected by the Federal Confidentiality of Alcohol and Drug Abuse Patient Records regulations: The Federal rules restrict any use of the information to criminally investigate or prosecute any alcohol or drug abuse patient.[facility] CenterIn the event this information is protected by the Federal Confidentiality of Alcohol and Drug Abuse Patient Records regulations: The Federal rules restrict any use of the information to criminally investigate or prosecute any alcohol or drug abuse patient.[facility] CenterIn the event this information is protected by the Federal Confidentiality of Alcohol and Drug Abuse Patient Records regulations: The Federal rules restrict any use of the information to criminally investigate or prosecute any alcohol or drug abuse patient.[facility] CenterIn the event this information is protected by the Federal Confidentiality of Alcohol and Drug Abuse Patient Records regulations: The Federal rules restrict any use of the information to criminally investigate or prosecute any alcohol or drug abuse patient.[facility] CenterIn the event this information is protected by the Federal Confidentiality of Alcohol and Drug Abuse Patient Records regulations: The Federal rules restrict any use of the information to criminally investigate or prosecute any alcohol or drug abuse patient.[facility] CenterIn the event this information is protected by the Federal Confidentiality of Alcohol and Drug Abuse Patient Records regulations: The Federal rules restrict any use of the information to criminally investigate or prosecute any alcohol or drug abuse patient.[facility] CenterIn the event this information is protected by the Federal Confidentiality of Alcohol and Drug Abuse Patient Records regulations: The Federal rules restrict any use of the information to criminally investigate or prosecute any alcohol or drug abuse patient.[facility] [facility] Center[facility] the event this information is protected by the Federal Confidentiality of Alcohol and Drug Abuse Patient Records regulations: The Federal rules restrict any use of the information to criminally investigate or prosecute any alcohol or drug abuse patient.[facility] the event this information is protected by the Federal Confidentiality of Alcohol and Drug Abuse Patient Records regulations: The Federal rules restrict any use of the information to criminally investigate or prosecute any alcohol or drug abuse patient.[facility] CenterIn the event this information is protected by the Federal Confidentiality of Alcohol and Drug Abuse Patient Records regulations: The Federal rules restrict any use of the information to criminally investigate or prosecute any alcohol or drug abuse patient.[facility] CenterIn the event this information is protected by the Federal Confidentiality of Alcohol and Drug Abuse Patient Records regulations: The Federal rules restrict any use of the information to criminally investigate or prosecute any alcohol or drug abuse patient.[facility] CenterIn the event this information is protected by the Federal Confidentiality of Alcohol and Drug Abuse Patient Records regulations: The Federal rules restrict any use of the information to criminally investigate or prosecute any alcohol or drug abuse patient.[facility] CenterIn the event this information is protected by the Federal Confidentiality of Alcohol and Drug Abuse Patient Records regulations: The Federal rules restrict any use of the information to criminally investigate or prosecute any alcohol or drug abuse patient.[facility] CenterIn the event this information is protected by the Federal Confidentiality of Alcohol and Drug Abuse Patient Records regulations: The Federal rules restrict any use of the information to criminally investigate or prosecute any alcohol or drug abuse patient.[facility] CenterIn the event this information is protected by the Federal Confidentiality of Alcohol and Drug Abuse Patient Records regulations: The Federal rules restrict any use of the information to criminally investigate or prosecute any alcohol or drug abuse patient.[facility] CenterIn the event this information is protected by the Federal Confidentiality of Alcohol and Drug Abuse Patient Records regulations: The Federal rules restrict any use of the information to criminally investigate or prosecute any alcohol or drug abuse patient.[facility] CenterIn the event this information is protected by the Federal Confidentiality of Alcohol and Drug Abuse Patient Records regulations: The Federal rules restrict any use of the information to criminally investigate or prosecute any alcohol or drug abuse patient.[facility] CenterIn the event this information is protected by the Federal Confidentiality of Alcohol and Drug Abuse Patient Records regulations: The Federal rules restrict any use of the information to criminally investigate or prosecute any alcohol or drug abuse patient.[facility] CenterIn the event this information is protected by the Federal Confidentiality of Alcohol and Drug Abuse Patient Records regulations: The Federal rules restrict any use of the information to criminally investigate or prosecute any alcohol or drug abuse patient.[facility] CenterIn the event this information is protected by the Federal Confidentiality of Alcohol and Drug Abuse Patient Records regulations: The Federal rules restrict any use of the information to criminally investigate or prosecute any alcohol or drug abuse patient.[facility] CenterIn the event this information is protected by the Federal Confidentiality of Alcohol and Drug Abuse Patient Records regulations: The Federal rules restrict any use of the information to criminally investigate or prosecute any alcohol or drug abuse patient.[facility] CenterIn the event this information is protected by the Federal Confidentiality of Alcohol and Drug Abuse Patient Records regulations: The Federal rules restrict any use of the information to criminally investigate or prosecute any alcohol or drug abuse patient.[facility] CenterIn the event this information is protected by the Federal Confidentiality of Alcohol and Drug Abuse Patient Records regulations: The Federal rules restrict any use of the information to criminally investigate or prosecute any alcohol or drug abuse patient.[facility] CenterIn the event this information is protected by the Federal Confidentiality of Alcohol and Drug Abuse Patient Records regulations: The Federal rules restrict any use of the information to criminally investigate or prosecute any alcohol or drug abuse patient.[facility] CenterIn the event this information is protected by the Federal Confidentiality of Alcohol and Drug Abuse Patient Records regulations: The Federal rules restrict any use of the information to criminally investigate or prosecute any alcohol or drug abuse patient.[facility] CenterIn the event this information is protected by the Federal Confidentiality of Alcohol and Drug Abuse Patient Records regulations: The Federal rules restrict any use of the information to criminally investigate or prosecute any alcohol or drug abuse patient.[facility] CenterIn the event this information is protected by the Federal Confidentiality of Alcohol and Drug Abuse Patient Records regulations: The Federal rules restrict any use of the information to criminally investigate or prosecute any alcohol or drug abuse patient.[facility] Reason for Visit (unrecogniz ed section and content) Reason Comments PT Progress Note Specialty Diagnoses / Procedures Referred By Contac t Referred To Contact [facility] Diagnoses Radiculopathy, lumbar region Procedures CONSULT TO PHYSICAL THERAPY PHYSICAL THERAPY EVALUATION HIGH COMPLEX [address] [place] [address] [place] [address] [facility] [address] [address] Referral ID Status Reason Start Date Expiration Date V isits Requested Visits Authorized [id number] Authorized 04/15/2022 04/14/2023 20 20 Reason Comments Physical Therapy Specialty Diagnoses / Procedures Referred By Contac t Referred To Contact [facility] Diagnoses Radiculopathy, lumbar region Procedures CONSULT TO PHYSICAL THERAPY PHYSICAL THERAPY EVALUATION HIGH COMPLEX [address] [place] [address] [place] [id number] [address] [address] Reason Comments PT Progress Note Reason Comments Establish Care follow up from ED, b ack pain Specialty Diagnoses / Procedures Referred By Contac t Referred To Contact MR IMAGING Diagnoses Spinal stenosis of lumbar region without neurogenic claudication Procedures MRI LUMBAR SPINE WO IVCON MRI SPINAL CANAL LUMBAR W/O CONTRAST MATERIAL Yana Ballard, SPECIAL SERVICES SUPERVISOR.DIRECTOR OF SLEEP [address] [address] Mr Imaging Referral ID Status Reason Start Date Expiration Date V isits Requested Visits Authorized [id number] Closed Auto-Generate d Referral 09/19/2021 10/19/2022 1 1 Reason Comments Results MRI Reason Onset Date Comments Refill Request 10/06/2021 Specialty Diagnoses / Procedures Referred By Contac t Referred To Contact Pain Management Diagnoses Lumbar disc herniation Procedures CONSULT TO PAIN MGT OFFICE/OUTPATIENT [facility] 60-74 MINUTES Yana Ballard, SPECIAL SERVICES SUPERVISOR.DIRECTOR OF SLEEP [address] [address] Referral ID Status Reason Start Date Expiration Date Visits Requested Visits Authorized [id number] Pending Review PCP Requested Referral 10/06/2021 10/06/2022 [...] LUMBAR W/O CONTRAST MATERIAL Radha Dickens PA-C [address] [place] [address] Mr Imaging Referral ID Status Reason Start Date Expiration Date V isits Requested Visits Authorized [id number] Closed Auto-Generate d Referral 03/12/2022 04/26/2022 1 1 Specialty Diagnoses / Procedures Referred By Contac t Referred To Contact Diagnoses Pre-op testing Procedures REFER TO PACC - PRE ANESTHESIA CONSULTATION CLINIC OFFICE/OUTPATIENT NEW HIGH MDM 60-[place] [address] [place] [address] Referral ID Status Reason Start Date Expiration Date Visits Requested Visits Authorized [id number] Pending Review PCP Requested Referral 03/16/2022 03/16/2023 1 1 Reason Comments Post Op Sore and stiffness Reason Comments PT Eval Referral ID Status Reason Start Date Expiration Date Visits Requested Visits Authorized [id number] Pending Review Auto-Generat ed Referral 04/04/2023 1 1 Reason Comments Follow Up Reason Comments Post Op Symptoms Reason Comments Leg Pain Reason Comments PT Discharge Specialty Diagnoses / Procedures Referred By Contac t Referred To Contact [facility] Diagnoses Radiculopathy, lumbar region Procedures CONSULT TO PHYSICAL THERAPY PHYSICAL THERAPY EVALUATION HIGH COMPLEX 45 [place] [address] [place] [address] [facility] [place] [address] [place] [address] Reason Comments Follow Up Pt states that [...] LUMBAR W/[place] [address] [place] [address] [place] [id number] Referral ID Status Reason Start Date Expiration Date V isits Requested Visits Authorized [id number] Closed Auto-Generate d Referral 02/06/2023 03/07/2024 1 1 Reason Comments Diarrhea Care Teams (unrecognized sec tion and content) Photographic Editor Relationship Specialty Start Date End Date Yana Ballard, SPECIAL SERVICES SUPERVISOR.DIRECTOR OF SLEEP [address] [address] PCP - General Family Practice 10/27/12 Photographic Editor Relationship Specialty Start Date End Date Yana Ballard, SPECIAL SERVICES SUPERVISOR.DIRECTOR OF SLEEP [address] [address] PCP - General Family Practice 10/27/12 Photographic Editor Relationship Specialty Start Date End Date Yana Ballard, SPECIAL SERVICES SUPERVISOR.DIRECTOR OF SLEEP [address] [address] PCP - General Family Practice 10/27/12 Photographic Editor Relationship Specialty Start Date End Date Yana Ballard, SPECIAL SERVICES SUPERVISOR.DIRECTOR OF SLEEP [address] [address] PCP - General Family Practice 10/27/12 Photographic Editor Relationship Specialty Start Date End Date Yana Ballard, SPECIAL SERVICES SUPERVISOR.DIRECTOR OF SLEEP [address] [address] PCP - General Family Practice 10/27/12 Photographic Editor Relationship Specialty Start Date End Date Yana Ballard, SPECIAL SERVICES SUPERVISOR.DIRECTOR OF SLEEP [address] [address] PCP - General Family Practice 10/27/12 Photographic Editor Relationship Specialty Start Date End Date Yana Ballard, SPECIAL SERVICES SUPERVISOR.DIRECTOR OF SLEEP [address] [address] PCP - General Family Practice 10/27/12 Photographic Editor Relationship Specialty Start Date End Date Yana Ballard, SPECIAL SERVICES SUPERVISOR.DIRECTOR OF SLEEP [address] [address] PCP - General Family Practice 10/27/12 Photographic Editor Relationship Specialty Start Date End Date Yana Ballard, SPECIAL SERVICES SUPERVISOR.DIRECTOR OF SLEEP [address] [address] PCP - General Family Practice 10/27/12 Photographic Editor Relationship Specialty Start Date End Date Yana Ballard, SPECIAL SERVICES SUPERVISOR.DIRECTOR OF SLEEP [address] [address] PCP - General Family Practice 10/27/12 Photographic Editor Relationship Specialty Start Date End Date Yana Ballard, SPECIAL SERVICES SUPERVISOR.DIRECTOR OF SLEEP [address] [address] PCP - General Family Practice 10/27/12 Photographic Editor Relationship Specialty Start Date End Date Yana Ballard, SPECIAL SERVICES SUPERVISOR.DIRECTOR OF SLEEP [address] [address] PCP - General Family Practice 10/27/12 Photographic Editor Relationship Specialty Start Date End Date Yana Ballard, SPECIAL SERVICES SUPERVISOR.DIRECTOR OF SLEEP [address] [address] PCP - General Family Practice 10/27/12 Photographic Editor Relationship Specialty Start Date End Date Yana Ballard, SPECIAL SERVICES SUPERVISOR.DIRECTOR OF SLEEP [address] [address] PCP - General Family Practice 10/27/12 Photographic Editor Relationship Specialty Start Date End Date Yana Ballard, SPECIAL SERVICES SUPERVISOR.DIRECTOR OF SLEEP [address] [address] PCP - General Family Practice 10/27/12 Photographic Editor Relationship Specialty Start Date End Date Yana Ballard, SPECIAL SERVICES SUPERVISOR.DIRECTOR OF SLEEP [address] [address] PCP - General Family Practice 10/27/12 Photographic Editor Relationship Specialty Start Date End Date Yana Ballard, SPECIAL SERVICES SUPERVISOR.DIRECTOR OF SLEEP [address] [address] PCP - General Family Practice 10/27/12 Photographic Editor Relationship Specialty Start Date End Date Yana Ballard, SPECIAL SERVICES SUPERVISOR.DIRECTOR OF SLEEP [address] [address] PCP - General Family Practice 10/27/12 12/11/21 Thomas Salinas MD [address] [place] [address] PCP - General Family Practice 12/12/21 Photographic Editor Relationship Specialty Start Date End Date Thomas Salinas MD [address] [place] [address] PCP - General Family Practice 12/12/21 Photographic Editor Relationship Specialty Start Date End Date Thomas Salinas MD [address] [place] [address] PCP - General Family Medicine 12/12/21 Photographic Editor Relationship Specialty Start Date End Date Thomas Salinas MD [address] [place] [address] PCP - General Family Medicine 12/12/21 Photographic Editor Relationship Specialty Start Date End Date Thomas Salinas MD [address] [place] [address] PCP - General Family Medicine 12/12/21 Photographic Editor Relationship Specialty Start Date End Date Thomas Salinas MD [address] [place] [address] PCP - General Family Medicine 12/12/21 Photographic Editor Relationship Specialty Start Date End Date Thomas Salinas MD [address] [place] [address] PCP - General Family Medicine 12/12/21 Photographic Editor Relationship Specialty Start Date End Date Thomas Salinas MD [address] [place] [address] PCP - General Family Medicine 12/12/21 Photographic Editor Relationship Specialty Start Date End Date Thomas Salinas MD [address] [place] [address] PCP - General Family Medicine 12/12/21 Photographic Editor Relationship Specialty Start Date End Date Thomas Salinas MD [address] [place] [address] PCP - General Family Medicine 12/12/21 Photographic Editor Relationship Specialty [place] [address] [place] [address] PCP - General Family Medicine 12/12/21 Photographic Editor Relationship Specialty [place] [address] [place] [address], [place] [address] PCP - General Family Medicine 12/12/21 Photographic Editor Relationship Specialty Start [place] [address] [place] [address], [place] [address] PCP - General Family Medicine 12/12/21 Photographic Editor Relationship Specialty Start Date End Date Thomas Salinas MD [address] [place] [address] [place] [address] PCP - General Family Medicine 12/12/21 Photographic Editor Relationship Specialty Start Date End Date Thomas Salinas MD [address] [place] [address] PCP - General Family Medicine 12/12/21 Photographic Editor Relationship Specialty Start Date End Date Thomas Salinas MD [address] [place] [address] [place] [address] PCP - General Family Medicine 12/12/21 Photographic Editor Relationship Specialty Start Date End Date Thomas Salinas MD [address] [place] [address] [place] [address] PCP - General Family Medicine 12/12/21 Photographic Editor Relationship Specialty Start Date End Date Thomas Salinas MD [address] [place] [address], [place] [address] PCP - General Family Medicine 12/12/21 Photographic Editor Relationship Specialty Start Date End Date Thomas Salinas MD [address] [place] [address], [place] [address] PCP - General Family Medicine 12/12/21 Photographic Editor Relationship Specialty Start Date End Date Thomas Salinas MD [address] [place] [address] PCP - General Family Medicine 12/12/21 Team Status: Active Member Role Status Dates Yana Ballard SENIOR PRODUCTION SUPERVISOR, SENIOR PRODUCTION SUPERVISOR-C Primary Care Provider Active Team Status: Inactive Member Role Status Dates Yana Ballard SENIOR PRODUCTION SUPERVISOR, SENIOR PRODUCTION SUPERVISOR-C Primary Care Provider Active Dr. Isabel Marino MD Attending Provider, Referr ing Provider Active Photographic Editor Relationship Specialty Start Date End Date Thomas Salinas MD [address] [place] [address] PCP - General Family Medicine 12/12/21 Photographic Editor Relationship Specialty Start Date End Date Thomas Salinas MD [address] [place] [address] PCP - General Family Medicine 12/12/21 Photographic Editor Relationship Specialty Start Date End Date Thomas Salinas MD [address] [place] [address] PCP - General Family Medicine 12/12/21 Photographic Editor Relationship Specialty Start Date End Date Thomas Salinas MD [facility] [place] [address] PCP - General Family Medicine 12/12/21 Photographic Editor Relationship Specialty Start Date End Date Thomas Salinas MD [address] [place] [address] PCP - General Family Medicine 12/12/21 Photographic Editor Relationship Specialty Start Date End Date Thomas Salinas MD [address] [place] [address] PCP - General Family Medicine 12/12/21 Team [...] 2024 End: April 14, 2024 Barbie Mitchell SENIOR PRODUCTION SUPERVISOR, SENIOR PRODUCTION SUPERVISOR-C Attending Provider Active Start: April 14, 2024 End: April 14, 2024 Team Status: Inactive Member Role Status Dates Dr. Thomas Salinas MD Primary Care Provider Acti ve Start: April 14, 2024 End: April 14, 2024 Barbie Mitchell SENIOR PRODUCTION SUPERVISOR, SENIOR PRODUCTION SUPERVISOR-C Attending Provider Active Start: April 14, 2024 End: April 14, 2024 Barbie Mitchell SENIOR PRODUCTION SUPERVISOR, SENIOR PRODUCTION SUPERVISOR-C Referring Provider Active Start: April 14, 2024 [...] Start: July 02, 2024 Dr. Maryann Bajwa , Attending Provider Activ e Start: July 02, [...] End: July 31, 2024 Dr. Maryann Bajwa , Attending Provider Activ e Start: July 31, [...] 2024 End: August 05, 2024 Barbie Mitchell SENIOR PRODUCTION SUPERVISOR, SENIOR PRODUCTION SUPERVISOR-C Attending Provider Active Start: August 05, 2024 End: August 05, 2024 Team Status: Inactive Member Role Status Dates Dr. Thomas Salinas MD Primary Care Provider Acti ve Start: August 17, 2024 End: August 17, 2024 Dr. Thomas Salinas MD Referring Provider Active Start: August 17, 2024 End: August 17, 2024 Barbie Mitchell SENIOR PRODUCTION SUPERVISOR, SENIOR PRODUCTION SUPERVISOR-C Attending Provider Active Start: August 17, 2024 [...] End: August 05, 2024 Barbie Mitchell NP, SENIOR PRODUCTION SUPERVISOR-C Attending Provider Active Start: August 05, 2024 End: August 05, 2024 Team Status: Inactive Member Role/Relationship Status Dates Dr. Thomas Salinas MD Primary Care Provider Acti ve Start: August 17, 2024 End: August 17, 2024 Dr. Thomas Salinas MD Referring Provider Active Start: August 17, 2024 End: August 17, 2024 Barbie Mitchell SENIOR PRODUCTION SUPERVISOR, SENIOR PRODUCTION SUPERVISOR-C Attending Provider Active Start: August 17, 2024 [...] 2024 End: August 05, 2024 Barbie Mitchell SENIOR PRODUCTION SUPERVISOR, SENIOR PRODUCTION SUPERVISOR-C Attending Provider Active Start: August 05, 2024 End: August 05, 2024 Team Status: Inactive Member Role/Relationship Status Dates Dr. Thomas Salinas MD Primary Care Provider Acti ve Start: August 17, 2024 End: August 17, 2024 Dr. Thomas Salinas MD Referring Provider Active Start: August 17, 2024 End: August 17, 2024 Barbie Mitchell SENIOR PRODUCTION SUPERVISOR, SENIOR PRODUCTION SUPERVISOR-C Attending Provider Active Start: August 17, 2024 [...] 2024 End: August 05, 2024 Barbie Mitchell SENIOR PRODUCTION SUPERVISOR, SENIOR PRODUCTION SUPERVISOR-C Attending Provider Active Start: August 05, 2024 End: August 05, 2024 Team Status: Inactive Member Role/Relationship Status Dates Dr. Thomas Salinas MD Primary Care Provider Acti ve Start: August 17, 2024 End: August 17, 2024 Dr. Thomas Salinas MD Referring Provider Active Start: August 17, 2024 End: August 17, 2024 Barbie Mitchell SENIOR PRODUCTION SUPERVISOR, SENIOR PRODUCTION SUPERVISOR-C Attending Provider Active Start: August 17, 2024 [...] End: December 01, 2024 Barbie Mitchell NP, SENIOR PRODUCTION SUPERVISOR-C Attending Provider Active Start: December 01, 2024 [...] End: August 17, 2024 Barbie Mitchell NP, SENIOR PRODUCTION SUPERVISOR-C Attending Provider Active Start: August 17, 2024 [...] 2024 End: December 01, 2024 Barbie Mitchell SENIOR PRODUCTION SUPERVISOR, SENIOR PRODUCTION SUPERVISOR-C Attending Provider Active Start: December 01, 2024 [...] September 14, 2024 End: September 14, 2024 Xiemna Mcghee CNM Attending Provider Active S tart: [...] End: December 01, 2024 Barbie Mitchell NP, SENIOR PRODUCTION SUPERVISOR-C Attending Provider Active Start: December 01, 2024 [...] 2024 End: December 28, 2024 Barbie Mitchell SENIOR PRODUCTION SUPERVISOR, SENIOR PRODUCTION SUPERVISOR-C Attending Provider Active Start: December 28, 2024 [...] 2024 End: December 01, 2024 Barbie Mitchell SENIOR PRODUCTION SUPERVISOR, SENIOR PRODUCTION SUPERVISOR-C Attending physician Active Start: December 01, 2024 [...] 2024 End: December 28, 2024 Barbie Mitchell SENIOR PRODUCTION SUPERVISOR, SENIOR PRODUCTION SUPERVISOR-C Attending physician Active Start: December 28, 2024 [...] BE BASED ON THE PRIMARY CLINICAL RECORDS. [facility]. provides no warranty or guarantee of the accuracy or completeness of information in this document.
[2025-02-06 08:10] LABS: ROM Internal Control Test YES-OK TO RESULT pt. (Internal QC)
[2025-02-06 08:11] LABS: ROM Patient Test POSITIVE (Negative); Record Kit Lot#, ROM+ K3607
--- OUTSIDE RECORDS SUMMARY | 2025-02-06 08:29 | XMS RPT_ITS | CCD ---
Author Organization [facility] Care Team Providers Care Science Professor Name Role Phone Ana Rosa Wallace IIIand Mingo Primary Care Physician [phone] Ziol TOWER TRUCK DRIVER.Yana KAUFMAN Primary Care Provider Elio TOWER TRUCK DRIVER.Yana KAUFMAN Primary Care Provider Elio TOWER TRUCK DRIVER.Yana KAUFMAN Primary Care Provider Thomas Salinas MD [...] Provider Dr. Royce Chapin DO Emergency Provider [phone] Brad WHITAKER, Dr. Machado Primary Care Provider Jamila WHITAKER, Dr. Hall Attending Provider Jamila WHITAKER, Dr. Hall Referring Provider Brad WHITAKER, Dr. Machado Referring Provider Silva MANAGER QUALITY COMPLIANCE-C, Barbie Attending Provider Silva MANAGER QUALITY COMPLIANCE-C, Barbie Referring Provider [phone] Judy Worthington DO, Dr. Wolf Attending Provider Judy Worthington DO, Dr. Wolf Referring Provider Thuan RN, Renay Attending Provider [facility] ioana Salinas MD, Dr. Machado Primary Care Provider Brad WHITAKER, Dr. Machado Referring Provider [phone] Paula MANAGER QUALITY COMPLIANCE-C, Barbie Attending Provider [phone] Juan ARRIAGA, Ximena Attending Provider [phone] THOMAS SALINAS F [facility] VY MICHAUD Attending Unavailable XIMENA MCGHEE S Referring Unavailable Jamila WHITAKER, Dr. Hall Attending Provider [phone] Jamila WHITAKER, Dr. Hall Referring Provider [phone] Brad WHITAKER, Dr. Machado Primary Care Provider Judy Worthington DO, Dr. Wolf Attending Provider Judy Worthington DO, Dr. Wolf Referring Provider Brad WHITAKER, Dr. Machado Primary Care Provider Brad WHITAKER, Dr. Machado Referring Provider Ximena Mcghee CNM Referring Provider [phone] Brad WHITAKER, Dr. Machado Primary Care Provider Brad WHITAKER, Dr. Machado Referring Provider [phone] Paula MANAGER QUALITY COMPLIANCE-C, Barbie Attending Provider [phone] Judy Worthington DO, Dr. Wolf Attending Provider Brad WHITAKER, Dr. Machado Primary Care Provider Brad WHITAKER, Dr. Machado Referring Provider Paula MANAGER QUALITY COMPLIANCE-CBarbie Attending Provider [phone] Brad WHITAKER, Dr. Machado Primary Care Physicia n Jamila WHITAKER, Dr. Hall Attending Physician Brad WHITAKER, Dr. Machado Referring Provider [phone] Ximena Mcghee CNM Attending Physician [phone] Paula MANAGER QUALITY COMPLIANCE-CBarbie Attending Physician [phone] Judy Worthington DO, Dr. [...] Care Unavailable Grabenstetter, Thomas Referring Unavailable Paula MANAGER QUALITY COMPLIANCEBarbie Attending Unavailable Grabenstetter, Thomas Referring Unavailable Grabenstetter, Thomas Primary Care Unavailable Ximena Mcghee Attending Unavailable Grabenstetter, Thomas Referring Unavailable Grabenstetter, Thomas Primary Care Unavailable Ximena Mcghee Referring Unavailable Grabenstetter, Thomas Primary Care Unavailable Ximena Mcghee Attending Unavailable Isabel Marino Attending Unavailable Isabel Marino Referring Unavailable Grabenstetter, Thomas Primary Care Unavailable Paula MANAGER QUALITY COMPLIANCE, Barbie Attending Unavailable Paula MANAGER QUALITY COMPLIANCE, Barbie Referring Unavailable Grabenstetter, Thomas Primary Care Unavailable Vande Velde, Maryann Referring Unavailabl e Vande Velde, Maryann Attending Unavailabl e Grabenstetter, Thomas Primary Care Unavailable Ximena Mcghee Attending Unavailable Ximena Mcghee Referring Unavailable Grabenstetter, Thomas Primary Care Unavailable Royce Chapin Attending Unavailable Grabenstetter, Thomas Primary Care Unavailable Silva MANAGER QUALITY COMPLIANCE, Barbie Attending Unavailable Grabenstetter, Thomas Primary Care [...] e Grabenstetter, Thomas Primary Care Unavailable Paula MANAGER QUALITY COMPLIANCE, Barbie Attending Unavailable Grabenstetter, Thomas Referring Unavailable Grabenstetter, Thomas Primary Care Unavailable Silva MANAGER QUALITY COMPLIANCEBarbie Attending Unavailable Grabenstetter, Thomas Primary Care Unavailable [...] Translations: [amoxicillin] Drug Allergy 4 Hives, Rash [facility] (20 sources) Shellfish; Translations: [shellfish] Drug allergy 3 Swelling, Shortness of Breath [facility] (9 sources) Penicillins; Translations: [PENICILLINS] Drug Intolerance 3 [facility] (20 sources) Penicillins Drug Intolerance 3 [facility] (20 sources) Vancomycin; Translations: [VANCOMYCIN] Drug Allergy [address] [facility] (17 sources) Penicillins Allergy to substance 2 hives, breathing issues [facility] (18 sources) Shellfish; Translations: [shellfish derived] [facility] (1 source) Amoxicillin Drug Allergy 5 [facility] (1 source) Penicillins Drug allergy (disorder) 5 [facility] (1 source) Vancomycin Drug Allergy 5 [facility] Medications Current Medications Medication Drug [...] 10/07/2021 11/15/2021 Discontinued Start: 09-13-2021 End: 09-19-2021 Sherman 325 mg-5 mg oral table t 1 [...] on above: Take 1 tablet by rodney every 4 hours as needed for pain [...] Comment on above: [facility] 8 hours as needed for up [...] on above: Take [address] [facility] twice daily. famotidine 20 mg [...] 2024 1:00am July 03, 2024 1:08pm levonorgestrel 0.117377 mg/hr intrauterine system (20 sources) Progestin, Progestin-containing [...] above: Take by mouth as nee ded. Alzdvgrk-Apz-Lr-Fa (1 source) Start: 2020 End: 2020 take 1 tablet by mouth once daily Rfmhbgea-Ilh-Di-Fa Discontinued 1 TABLET PO DAILY August 10, 2020 12:00am November 09, 2020 11:39am Lsjkimed-Dxd-Bi-Fa 1 mg Tablet (16 sources) Start: 2020 End: 2020 take 1 tablet by mouth once daily Hruofsvs-Kax-Zn-Fa 1 mg Tablet Discontinued 1 {tbl} PO DAILY August 10, 2020 12:00am November 09, 2020 11:39am Start: 08-10-2020 End: 11-09-2020 take 1 tablet by mouth once daily Amptshyb-Vda-Bv-Fa 1 mg Tablet Discontinued 1 {tbl} PO [...] B Beta Streptococcus is not isolated. Normal [facility] Comment on above: Performed By: #### L 501.0250, L100.0100, L509.8002, L3890.6006 #### [facility] [address] [place], [address] Rule out Beta Strep (Grp. B) on 02-03-2025 OMA Group B Beta Streptococcus is not isolated. Normal [facility] Comment on above: Performed By: #### L 501.0250, L100.0100, L509.8002, L3890.6006 #### [facility] [address] [place], [address] Group B Strep DNA By PCRon 1 GBS DNA ASSAY Negative Normal Negative [facility] Comment on above: Performed By: #### L 8200.0000 #### [facility] [address] [place], [address] OB Triage Physician Noteon 1 OB Triage Physician Note [facility] Medical Records Department [address] [place] [address] OB Triage Physician Note 02/02/25 1903 MR#: [id number] Acct: [id number] Name: HANNAH HENDRICKS Rep #: [id number] : 1990 34 From: Maryann Bajwa DO PCP: Dr. 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 Date Name GA/Weeks Outcome Route Bth Weight Infant Gen Labor Lgth Anesthesia Del Locatn Provider FOB 08/11/20 Janie 39 live - full term 7lbs 8.5oz Female epidural [facility] Dr. Quang Samaniego 03/15/24 4 spontaneous Delivery [...] list details (more content not included)... Normal [facility] [employer] Office Visit Reporton 02-01-2025 [employer] Office Visit Report [facility] [address], [address] [place] [address] OFFICE VISIT Date of Service: 02/01/25 MR#: [id number] Acct: [id number] Name: HANNAH HENDRICKS Rep #: [id number] : 1990 Provider: BART Kaur ams Age/Sex: 34/F Location: [facility] Status: Signed Intake Vital Signs 12/15/24 09:22 01/26/25 09:21 02/01/25 09:19 Height 5 ft 6 in 5 ft 6 in 5 ft 6 in Weight: 214 lb 7 oz BMI 34.6 BP 109/75 Intake Visit Reasons: 37wk ob Chief Complaint: 37wk OB Geological Scout Required: No Is patient in pain?: No [...] 1 current occupational status: employed current occupation: [employer] current occupational exposures/hazards: No pets and animals: [...] 3-4 times per week duration: 15-30 minutes/day agata/anabaptism: Methodist seatbelt use: always do you feel safe at home: Yes 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 Date Name GA/Weeks Outcome Route Bth Weight Gen Labor Lgth Anesthesia Del Locatn Provider FOB 08/11/20 Janie 39 live - full term 7lbs 8.5oz Female epidural [facility] Dr. Quang Samaniego 03/15/24 4 spontaneous Delivery [...] ???-???-???-???-???-? ??- (more content not included)... Normal [facility] [employer] Office Visit Reporton 01-26-2025 [employer] Office Visit Report [facility] [address] [place] [address], [address] [place] [address] OFFICE VISIT Date of Service: 01/26/25 MR#: [id number] Acct: [id number] Name: HANNAH HENDRICKS Rep #: [id number] : 1990 Provider: Dr. 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 Date Name GA/Weeks Outcome Route Bth Weight Gen Labor Lgth Anesthesia Del Locatn Provider FOB 08/11/20 Janie 39 live - full term 7lbs 8.5oz Female epidural [facility] Dr. Quang Samaniego 03/15/24 4 spontaneous Delivery Date: 08/11/20 Last Updated by: Cherelle Reeder Induced HPI 36 WK OB Details: HANNHA HENDRICKS is a 34 year old who [...] ???-???-???-???-???-? ??-???- (more content not included)... Normal [facility] [employer] Office Visit Reporton 01-11-2025 [employer] Office Visit Report [facility] [address], [address] [place] [address] OFFICE VISIT Date of Service: 01/11/25 MR#: [id number] Acct: [id number] Name: HANNAH HENDRICKS Rep #: [id number] : 1990 Provider: BART Kaur ams Age/Sex: 34/F Location[place] [facility] Status: Signed Intake Vital Signs 12/01/24 08:19 01/11/25 09:59 01/11/25 09:59 Height 5 ft 6 in 5 ft 6 in 5 ft 6 in Weight: 215 lb 5 oz BMI 34.7 BP 118/75 Intake Visit Reasons: 34 WK OB 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 Date Name GA/Weeks Outcome Route Bth Weight Infant Gen Labor Lgth Anesthesia Del Locatn Provider FOB 08/11/20 Janie 39 live - full term 7lbs 8.5oz Female epidural [facility] Dr. Quang Samaniego 03/15/24 4 spontaneous Delivery [...] ???-???-???-???-???-? ??-???- (more content not included)... Normal [facility] - Chemistry and C hemistry - challengeOrdered By: Barbie Mitchell on 12-28-2024 Glucose Ql (U) Negative [facility] - UrinalysisOrder ed By: Barbie Mitchell on 12-28-2024 Protein Ql (U) Trace [facility] [employer] Office Visit Reporton 12-28-2024 [employer] Office Visit Report [facility], [address] [place] [address] OFFICE VISIT Date of Service: 12/28/24 MR#: [id number] Acct: [id number] Name: HANNAH HENDRICKS Rep #: [id number] : 1990 Provider: SHAWN wray Age/Sex: 34/F Location: [facility] Status: Signed Intake Vital Signs 11/09/24 08:55 12/15/24 09:22 12/28/24 09:45 12/28/24 09:50 Height 5 ft 6 in 5 ft 6 in 5 ft 6 in 5 ft 6 in Weight: 210 lb BMI 33.9 BP 118/72 Intake Visit Reasons: 32wk ob Chief Complaint: 32 Week OB Geological Scout Required: No Is patient in pain?: No [...] current occupational status: employed current occupation: [employer] current occupational exposures/hazards: No pets and animals: [...] 3-4 times per week duration: 15-30 minutes/day agata/anabaptism: Methodist seatbelt use: always do you feel safe at home: Yes 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 Date Name GA/Weeks Outcome Route Bth Weight Gen Labor Lgth Anesthesia Del Locatn Provider FOB 08/11/20 Janie 39 live - full term 7lbs 8.5oz Female epidural [facility] Dr. Quang Samaniego 03/15/24 4 spontaneous Delivery [...] Pres Dilatio (more content not included)... Normal [facility] - Chemistry and C hemistry - challengeOrdered By: Maryann Worthington on 12-15-2024 Glucose Ql (U) Negative [facility] - UrinalysisOrder ed By: Maryann Worthington on 12-15-2024 Protein Ql (U) Trace [facility] [employer] Office Visit Reporton 12-15-2024 [employer] Office Visit Report [facility] [address], [address] [place] [address] OFFICE VISIT Date of Service: 12/15/24 MR#: [id number] Acct: [id number] Name: ELADIOHANNAH DING Rep #: [id number] : 1990 Provider: Dr. Maryann Mcclain, Age/Sex: 34/F Location[place] [facility] Status: Signed Intake Vital Signs 10/12/24 15:54 12/01/24 08:19 12/15/24 09:22 12/15/24 09:22 Height 5 ft 6 in 5 ft 6 in 5 ft 6 in 5 ft 6 in Weight: 205 lb 9 oz BMI 33.1 BP 106/69 Intake Visit Reasons: 30 wk ob 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 Date Name GA/Weeks Outcome Route Bth Weight Gen Labor Lgth Anesthesia Del Locatn Provider FOB 08/11/20 Janie 39 live - full term 7lbs 8.5oz Female epidural [facility] Dr. Quang Samaniego 03/15/24 4 spontaneous Delivery [...] Dilation -???-???-???-???- (more content not included)... Normal [facility] Absolute lymphocyte countOrd ered By: Ximena Mcghee on 12-01-2024 Lymphocytes Auto (Unsp spec) [#/Vol] 1.59 10*3/uL 0.83-4.51 [facility] Absolute neutrophil countOrd ered By: Ximena Mcghee on 12-01-2024 Neutrophils (Bld) [#/Vol] 5.5 10*3/uL 2.0-7.7 [facility] Automated lymphocyte count a s percentage of total leukocytesOrdered By: Ximena Mcghee on 12-01-2024 Lymphocytes/100 WBC Auto (Unsp spec) 19.6 % 19-41 [facility] Basophil percentageOrdered B y: Ximena Mcghee on 12-01-2024 Basophils/100 WBC (Bld) 0.4 % 0-1 [facility] CBC W/Diff, Automatedon 11-13 Absolute Lymph 1.59 X10 3/uL Normal 0.83-4.51 [facility] Comment on above: Performed By: #### L 501.0250, L100.0100, L509.8002, L3890.6006 #### [facility] [address] [place], [address] Absolute Neut 5.5 X10 3/uL Normal 2.0-7.7 [facility] Comment on above: Performed By: #### L 501.0250, L100.0100, L509.8002, L3890.6006 #### [facility] [address] [place], [address] Basophils/100 WBC (Bld) 0.4 % Normal 0-1 [facility] Comment on above: Performed By: #### L 501.0250, L100.0100, L509.8002, L3890.6006 #### [facility] [address] [place], [address] Eosinophils/100 WBC (Bld) 8.1 % High 0-5 [facility] Comment on above: Performed By: #### L 501.0250, L100.0100, L509.8002, L3890.6006 #### [facility] [address] [place], [address] Erythrocyte distribution width (RBC) [Ratio] 12.1 % Normal 11.6-14.6 [facility] Comment on above: Performed By: #### L 501.0250, L100.0100, L509.8002, L3890.6006 #### [facility] [address] [place], [address] Hematocrit (Bld) [Volume fraction] 34.9 % Low 37-47 [facility] Comment on above: Performed By: #### L 501.0250, L100.0100, L509.8002, L3890.6006 #### [facility] [address] [place], [address] Hemoglobin (Bld) [Mass/Vol] 11.9 g/dL Low 12.0-15.0 [facility] Comment on above: Performed By: #### L 501.0250, L100.0100, L509.8002, L3890.6006 #### [facility] [address] [place], [address] IG% 0.400 Normal 0.0-0.9 [facility] Comment on above: Result Comment: IG% - Immature Granulocytes (promyelocytes, myelocytes and metamyelocytes) > 1% indicates that a LEFT SHIFT is Present. Performed By: #### L 501.0250, L100.0100, L509.8002, L3890.6006 #### [facility] [address] [place], [address] Lymphocytes/100 WBC (Bld) 19.6 % Normal 19-41 [facility] Comment on above: Performed By: #### L 501.0250, L100.0100, L509.8002, L3890.6006 #### [facility] [address] [place], [address] MCH (RBC) [Entitic mass] 33.1 pg High 27.0-32.0 [facility] Comment on above: Performed By: #### L 501.0250, L100.0100, L509.8002, L3890.6006 #### [facility] [address] [place], [address] MCHC (RBC) [Mass/Vol] 34.1 g/dL Normal 32-36 [facility] Comment on above: Performed By: #### L 501.0250, L100.0100, L509.8002, L3890.6006 #### [facility] [address] [place], [address] MCV (RBC) [Entitic vol] 97.2 fL Normal 81-99 [facility] Comment on above: Performed By: #### L 501.0250, L100.0100, L509.8002, L3890.6006 #### [facility] [address] [place], [address] Monocytes/100 WBC (Bld) 4.2 % Normal 0-10 [facility] Comment on above: Performed By: #### L 501.0250, L100.0100, L509.8002, L3890.6006 #### [facility] [address] [place], [address] Neutrophils/100 WBC (Bld) 67.3 % Normal 47-70 [facility] Comment on above: Performed By: #### L 501.0250, L100.0100, L509.8002, L3890.6006 #### [facility] [address] [place], [address] Nucleated RBC (Bld) [#/Vol] 0 10*3/uL Normal 0-5 [facility] Comment on above: Performed By: #### L 501.0250, L100.0100, L509.8002, L3890.6006 #### [facility] [address] [place], [address] Platelet mean volume (Bld) [Entitic vol] 10.0 fL Normal 6.2-12.0 [facility] Comment on above: Performed By: #### L 501.0250, L100.0100, L509.8002, L3890.6006 #### [facility] [address] [place], [address] Platelets (Bld) [#/Vol] 249 10*3/uL Normal 150-450 [facility] Comment on above: Performed By: #### L 501.0250, L100.0100, L509.8002, L3890.6006 #### [facility] [address] [place], [address] RBC (Bld) [#/Vol] 3.59 10*6/uL Low 4.2-5.4 [facility] Comment on above: Performed By: #### L 501.0250, L100.0100, L509.8002, L3890.6006 #### [facility] [address] [place], [address] RDW SD 43.2 fl Normal 35.1-43.9 [facility] Comment on above: Performed By: #### L 501.0250, L100.0100, L509.8002, L3890.6006 #### [facility] [address] [place], [address] WBC (Bld) [#/Vol] 8.1 10*3/uL Normal 4.4-11.0 [facility] Comment on above: Performed By: #### L 501.0250, L100.0100, L509.8002, L3890.6006 #### [facility] [address] [place], [place], [address] Eosinophil percentageOrdered By: Ximena Mcghee on 12-01-2024 Eosinophils/100 WBC (Bld) 8.1 % High 0-5 [facility] Erythrocyte distribution wid th ratioOrdered By: Ximena Mcghee on 12-01-2024 Erythrocyte distribution width (RBC) [Ratio] 12.1 % 11.6-14.6 [facility] Erythrocyte distribution wid th standard deviationOrdered By: Ximena Mcghee on 12-01-2024 Erythrocyte distribution width (RBC) [Ratio] 43.2 fl 35.1-43.9 [facility] Glucose Challenge Gest 1H 50 kirsten 12-01-2024 GLU GEST 50g 1H 130 mg/dL Normal 70-140 [facility] Comment on above: Result Comment: AMENDED REPORT 12/01/24 1330 GLU GEST 50g 1H previously reported as: 133 mg/dL Performed By: #### L 501.0250, L100.0100, L509.8002, L3890.6006 #### [facility] [address] [place], [place], [id number] Glucose measurement at 2 benigno rs post-dose gestational glucose tolerance testOrdered By: Ximena Mcghee on 12-01-2024 Glucose [Mass/Vol] 130 mg/dL 70-140 [facility] Comment on above: Previous reported re sult: 133 mg/dLEdited by: PRASHANT on 12/01/24:1330 AMENDED REPORT 12/01/24 1330 GLU GEST 50g 1H previously reported as: 133 mg/dL HIVon 12-01-2024 HIV Non-Reactive Normal Nonreactive [facility] Comment on above: Result Comment: Non- Reactive Reactive Repeatedly reactive samples must be confirmed according to CDC recommended confirmatory algorithms. The subresults for either HIVAG or AHIV can be used as an aid in the selection of the confirmation algorithm for reactive samples. Send out specimens with Reactive results to [facility] for confirmation. Order the HIV antibody detection and differentiation: [id number] Performed By: #### L 501.0250, L100.0100, L509.8002, L3890.6006 #### [facility] [place], [address] Hematocrit Auto (Bld) [Volum e fraction]Ordered By: Ximena Mcghee on 12-01-2024 Hematocrit (Bld) [Volume fraction] 34.9 % Low 37-47 [facility] [facility] Hemoglobin measurementOrdere d By: Ximena Mcghee on 12-01-2024 Hemoglobin (Bld) [Mass/Vol] 11.9 g/dL Low 12.0-15.0 [facility] Immature granulocytes/100 WB C Auto (Bld)Ordered By: Ximena Mcghee on 12-01-2024 Immature granulocytes/100 WBC (Bld) 0.400 % 0.0-0.9 [facility] Comment on above: IG% - Immature Granu locytes (promyelocytes, myelocytes and metamyelocytes) > 1% indicates that a LEFT SHIFT is Present. Laboratory - Chemistry and C hemistry - challengeOrdered By: Barbie Mitchell on 12-01-2024 Glucose Ql (U) Negative [facility] Laboratory - UrinalysisOrder ed By: Barbie Mitchell on 12-01-2024 Protein Ql (U) Negative [facility] MCV (mean corpuscular volume ) determinationOrdered By: Ximena Mcghee on 12-01-2024 MCV (RBC) [Entitic vol] 97.2 fL 81-99 [facility] Mean corpuscular hemoglobin (MCH) determinationOrdered By: Ximena Mcghee on 12-01-2024 MCH (RBC) [Entitic mass] 33.1 pg High 27.0-32.0 [facility] Mean corpuscular hemoglobin concentration (MCHC) determinationOrdered By: Ximena Mcghee on 12-01-2024 MCHC (RBC) [Mass/Vol] 34.1 g/dL 32-36 [facility] Mean platelet volume determi nationOrdered By: Ximena Mcghee on 12-01-2024 Platelet mean volume (Bld) [Entitic vol] 10.0 fL 6.2-12.0 [facility] Monocyte percentageOrdered B y: Ximena Mcghee on 12-01-2024 Monocytes/100 WBC (Bld) 4.2 % 0-10 [facility] Neutrophil percentageOrdered By: Ximena Mcghee on 12-01-2024 Neutrophils/100 WBC (Bld) 67.3 % 47-70 [facility] No Panel InformationOrdered By: Ximena Mcghee on 12-01-2024 HIV (1&2) Antibody Non-Reactive Nonreactive [facility] Comment on above: Non-ReactiveReactive Repeatedly reactive samples must be confirmed according to CDC recommended confirmatory algorithms. The subresults for either HIVAG or AHIV can be used as an aid in the selection of the confirmation algorithm for reactive samples.Send out specimens with Reactive results to [facility] for confirmation.Order the HIV antibody detection and differentiation: #[id number] Nucleated red blood cell per centageOrdered By: Ximena Mcghee on 12-01-2024 Nucleated RBC/100 WBC (Bld) [Ratio] 0 % 0-5 [facility] [employer] Office Visit Reporton 12-01-2024 [employer] Office Visit Report [facility]'s [address], [address] [place] [address] OFFICE VISIT Date of Service: 12/01/24 MR#: [id number] Acct: [id number] Name: HANNAH HENDRICKS Rep #: [id number] : 1990 Provider: SHAWN wray Age/Sex: 34/F [place] [facility] [place]: Signed Intake Vital Signs 09/14/24 08:59 11/09/24 08:55 12/01/24 08:19 Height 5 ft 6 in 5 ft 6 in 5 ft 6 in Weight: 206 lb 4 oz BMI 33.3 BP 112/70 Intake Visit Reasons: 28wk ob/glucose Chief Complaint: 28 Week OB/Glucose 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 Date Name GA/Weeks Outcome Route Bth Weight Gen Labor Lgth Anesthesia Del Locatn Provider FOB 08/11/20 Janie 39 live - full term 7lbs 8.5oz Female epidural [facility] Dr. Quang Samaniego 03/15/24 4 spontaneous Delivery [...] Visit Note (more content not included)... Normal [facility] Platelet countOrdered By: Bernardo Mcghee on 12-01-2024 Platelets (Bld) [#/Vol] 249 10*3/uL 150-450 [facility] RBC Auto (Bld) [#/Vol]Ordere d By: Ximena Mcghee on 12-01-2024 RBC (Bld) [#/Vol] 3.59 10*6/uL Low 4.2-5.4 [facility] Syphilis Antibodieson 2024 Syphilis Abs Non-Reactive Normal Nonreactive [facility] Comment on above: Performed By: #### L 501.0250, L100.0100, L509.8002, L3890.6006 #### [facility] [address] [place], [address] White blood cell (WBC) count Ordered By: Ximena Mcghee on 12-01-2024 WBC (Bld) [#/Vol] 8.1 10*3/uL 4.4-11.0 [facility] Laboratory - Chemistry and C hemistry - challengeOrdered By: Ximena Mcghee on 11-09-2024 Glucose Ql (U) Negative [facility] Laboratory - UrinalysisOrder ed By: Ximena Mcghee on 11-09-2024 Protein Ql (U) Trace [facility] [employer] Office Visit Reporton 11-09-2024 [employer] Office Visit Report [facility]'[address], [address] [place] [address] OFFICE VISIT Date of Service: 11/09/24 MR#: [id number] Acct: [id number] Name: HANNAH HENDRICKS Rep #: [id number] : 1990 Provider: BART Kaur ams Age/Sex: 34/F [place] [facility] [place]: Signed Intake Vital Signs 08/17/24 08:32 10/12/24 15:54 11/09/24 08:55 11/09/24 08:55 Height 5 ft 6 in 5 ft 6 in 5 ft 6 in 5 ft 6 in Weight: 202 lb 6 oz BMI 32.6 BP 104/71 Intake Visit Reasons: 25 wk ob Chief Complaint: 25wk OB 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 Date Name GA/Weeks Outcome Route Bth Weight Gen Labor Lgth Anesthesia Del Locatn Provider FOB 08/11/20 Janie 39 live - full term 7lbs 8.5oz Female epidural [facility] Dr. Quang Samaniego 03/15/24 4 spontaneous Delivery [...] 170 -? (more content not included)... Normal [facility] Laboratory - Chemistry and C hemistry - challengeOrdered By: Isabel Marino on 10-12-2024 Glucose Ql (U) Negative [facility] Laboratory - UrinalysisOrder ed By: Isabel Marino on 10-12-2024 Protein Ql (U) Negative [facility] [employer] Office Visit Reporton 10-12-2024 [employer] Office Visit Report [facility]'s [address], [address] [place] [address] OFFICE VISIT Date of Service: 10/12/24 MR#: [id number] Acct: [id number] Name: HANNAH HENDRICKS Rep #: [id number] : 1990 Provider: Dr. 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 Date Name GA/Weeks Outcome Route Bth Weight Gen Labor Lgth Anesthesia Del Locatn Provider FOB 08/11/20 Janie 39 live - full term 7lbs 8.5oz Female epidural [facility] Dr. Quang Samaniego 03/15/24 4 spontaneous Delivery [...] ???-???-???-???-???-? ??-???- 170 (more content not included)... [facility] [id number] 10-10-2024 [facility] Misc. COMMENT Normal . [facility] Comment on above: Order Comment: CLEAN CATCH Result Comment: Test Ordered: [id number] AFP, Serum, Open Spina Bifida Results MANAGER QUALITY COMPLIANCE NOLAB Reference Range: . Test Results: TG Reference Range: . Please refer to the following specimen for additional lab results. Please refer to [id number] for results. Gest. Age on Collection Date MANAGER QUALITY COMPLIANCE NOLAB Reference Range: . Gestat. Age Based On MANAGER QUALITY COMPLIANCE NOLAB Reference Range: . Maternal Age At BALAJI MANAGER QUALITY COMPLIANCE NOLAB Reference Range: . Race MANAGER QUALITY COMPLIANCE NOLAB Reference Range: . Weight MANAGER QUALITY COMPLIANCE NOLAB Reference Range: . Insulin Dep Diabetes MANAGER QUALITY COMPLIANCE NOLAB Reference Range: . Multiple Gestation MANAGER QUALITY COMPLIANCE NOLAB Reference Range: . AFP Value NOLAB Reference Range: . Test not performed AFP MoM MANAGER QUALITY COMPLIANCE NOLAB Reference Range: . OSBR Risk 1 IN MANAGER QUALITY COMPLIANCE NOLAB Reference Range: . Interpretation MANAGER QUALITY COMPLIANCE NOLAB Reference Range: . Comment: MANAGER QUALITY COMPLIANCE NOLAB Reference Range: . Tracking MANAGER QUALITY COMPLIANCE NOLAB Reference Range: . Performed at: CB - [facility] [address] [id number] Plasma Processor: Norm Gonzáles PhD, Phone: [phone] Performed at: - [facility] [address] [place], [place] [id number] Plasma Processor: Zelalem Ernst [facility], Phone: [phone] Performed By: #### L 400.0001 #### [facility] [address] [place] [address], [address] Laboratory - Chemistry and C hemistry - challengeOrdered By: Ximena Mcghee on 09-14-2024 Glucose Ql (U) Negative [facility] Laboratory - UrinalysisOrder ed By: Ximena Mcghee on 09-14-2024 Protein Ql (U) Negative [facility] [employer] Office Visit Reporton 09-14-2024 [employer] Office Visit Report [facility]'s [address], [address] [place] [address] OFFICE VISIT Date of Service: 09/14/24 MR#: [id number] Acct: [id number] Name: HANNAH HENDRICKS Rep #: [id number] : 1990 Provider: BART Kaur ams Age/Sex: 34/F Location: [facility] Status: Signed Intake Vital Signs 07/20/24 13:59 08/17/24 08:32 09/14/24 08:59 Height 5 ft 6 in 5 ft 6 in 5 ft 6 in Weight: 190 lb 2 oz BMI 30.7 BP 106/71 Intake Visit Reasons: 17wk ob Chief Complaint: 17wk OB Geological Scout Required: No Is patient in pain?: No [...] current occupational status: employed current occupation: [employer] current occupational exposures/hazards: No pets and animals: [...] 3-4 times per week duration: 15-30 minutes/day agata/anabaptism: Methodist seatbelt use: always do you feel safe at home: Yes 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 Date Name GA/Weeks Outcome Route Bth Weight Infant Gen Labor Lgth Anesthesia Del Locatn Provider FOB 08/11/20 Janie 39 live - full term 7lbs 8.5oz Female epidural [facility] Dr. Quang Samaniego 03/15/24 4 spontaneous Delivery [...] -???-???-???-???-???- ???-???-?? (more content not included)... Normal [facility] Laboratory - Chemistry and C hemistry - challengeOrdered By: Barbie Mitchell on 08-17-2024 Glucose Ql (U) Negative [facility] Laboratory - UrinalysisOrder ed By: Barbie Mitchell on 08-17-2024 Protein Ql (U) Trace [facility] [employer] Office Visit Reporton 08-17-2024 [employer] Office Visit Report [facility] [address], [address] [place] [address] OFFICE VISIT Date of Service: 08/17/24 MR#: [id number] Acct: [id number] Name: HANNAH HENDRICKS Rep #: [id number] : 1990 Provider: SHAWN wray Age/Sex: 34/F [place] [facility] [place]: Signed Intake Vital Signs 04/14/24 14:22 08/05/24 09:52 08/17/24 08:32 Height 5 ft 6 in 5 ft 6 in 5 ft 6 in Weight: 184 lb 8 oz BMI 29.7 BP 104/68 Intake Visit Reasons: 13wk ob Geological Scout Required: No Is patient in pain?: No [...] current occupational status: employed current occupation: [employer] current occupational exposures/hazards: No pets and animals: [...] 3-4 times per week duration: 15-30 minutes/day agata/anabaptism: Methodist seatbelt use: always do you feel safe at home: Yes 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 Date Name GA/Weeks Outcome Route Bth Weight Infant Gen Labor Lgth Anesthesia Del Locatn Provider FOB 08/11/20 Janie 39 live - full term 7lbs 8.5oz Female epidural [facility] Dr. Quang Samaniego 03/15/24 4 spontaneous Delivery [...] ???-???-???-???-???-? ??-???- (more content not included)... Normal [facility] Laboratory - Chemistry and C hemistry - challengeOrdered By: Barbie Mitchell on 08-05-2024 Glucose Ql (U) Negative [facility] Laboratory - UrinalysisOrder ed By: Barbie Mitchell on 08-05-2024 Protein Ql (U) Negative [facility] [employer] Office Visit Reporton 08-05-2024 [employer] Office Visit Report [facility], [facility] [address] [place] [address] OFFICE VISIT Date of Service: 08/05/24 MR#: [id number] Acct: [id number] Name: HANNAH HENDRICKS Rep #: [id number] : 1990 Provider: SHAWN wray Age/Sex: 34/F [place] [facility] [place]: Signed Intake Vital Signs 07/20/24 13:59 08/05/24 09:52 Height 5 ft 6 in 5 ft 6 in Weight: 183 lb BMI 29.5 BP 126/78 H Intake Visit Reasons: Heart tone check Chief Complaint: Heart tone check Geological Scout Required: No Is patient in pain?: No [...] current occupational status: employed current occupation: [employer] current occupational exposures/hazards: No pets and animals: [...] 3-4 times per week duration: 15-30 minutes/day agata/anabaptism: Methodist seatbelt use: always do you feel safe at home: Yes 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 Date Name GA/Weeks Outcome Route Bth Weight Gen Labor Lgth Anesthesia Del Locatn Provider FOB 08/11/20 Janie 39 live - full term 7lbs 8.5oz Female epidural [facility] Dr. Quang Samaniego 03/15/24 4 spontaneous Delivery [...] -???-???-???-???-???- ???-??? (more content not included)... Normal [facility] Absolute lymphocyte countOrd ered By: Maryann Bradfordthu on 07-31-2024 Lymphocytes Auto (Unsp spec) [#/Vol] 2.10 10*3/uL 0.83-4.51 [facility] Absolute neutrophil countOrd ered By: Maryann Bradfordthu on 07-31-2024 Neutrophils (Bld) [#/Vol] 3.9 10*3/uL 2.0-7.7 [facility] Automated lymphocyte count a s percentage of total leukocytesOrdered By: Maryann Bradfordthu on 07-31-2024 Lymphocytes/100 WBC Auto (Unsp spec) 29.6 % 19-41 [facility] Basophil percentageOrdered B y: Maryann Bradfordthu on 07-31-2024 Basophils/100 WBC (Bld) 0.4 % 0-1 [facility] CBC W/Diff, Automatedon 04- Absolute Lymph 2.10 X10 3/uL Normal 0.83-4.51 [facility] Comment on above: Performed By: #### L 509.4006, BTS, L3890.6006, L3890.6102, L900.0098, L509.8002, L3890.6301, L100.0100 #### [facility] [address] [place], [address] Absolute Neut 3.9 X10 3/uL Normal 2.0-7.7 [facility] Comment on above: Performed By: #### L 509.4006, BTS, L3890.6006, L3890.6102, L900.0098, L509.8002, L3890.6301, L100.0100 #### [facility] [address] [place], [address] Basophils/100 WBC (Bld) 0.4 % Normal 0-1 [facility] Comment on above: Performed By: #### L 509.4006, BTS, L3890.6006, L3890.6102, L900.0098, L509.8002, L3890.6301, L100.0100 #### [facility] [address] [place], [address] Eosinophils/100 WBC (Bld) 8.3 % High 0-5 [facility] Comment on above: Performed By: #### L 509.4006, BTS, L3890.6006, L3890.6102, L900.0098, L509.8002, L3890.6301, L100.0100 #### [facility] [address] [place], [address] Erythrocyte distribution width (RBC) [Ratio] 11.6 % Normal 11.6-14.6 [facility] Comment on above: Performed By: #### L 509.4006, BTS, L3890.6006, L3890.6102, L900.0098, L509.8002, L3890.6301, L100.0100 #### [facility] [address] [place], [address] Hematocrit (Bld) [Volume fraction] 37.1 % Normal 37-47 [facility] Comment on above: Performed By: #### L 509.4006, BTS, L3890.6006, L3890.6102, L900.0098, L509.8002, L3890.6301, L100.0100 #### [facility] [address] [place], [address] Hemoglobin (Bld) [Mass/Vol] 12.8 g/dL Normal 12.0-15.0 [facility] Comment on above: Performed By: #### L 509.4006, BTS, L3890.6006, L3890.6102, L900.0098, L509.8002, L3890.6301, L100.0100 #### [facility] [address] [facility] [place], [address] IG% 0.300 Normal 0.0-0.9 [facility] Comment on above: Result Comment: IG% - Immature Granulocytes (promyelocytes, myelocytes and metamyelocytes) > 1% indicates that a LEFT SHIFT is Present. Performed By: #### L 509.4006, BTS, L3890.6006, L3890.6102, L900.0098, L509.8002, L3890.6301, L100.0100 #### [facility] [address] [facility] [place], [address] Lymphocytes/100 WBC (Bld) 29.6 % Normal 19-41 [facility] Comment on above: Performed By: #### L 509.4006, BTS, L3890.6006, L3890.6102, L900.0098, L509.8002, L3890.6301, L100.0100 #### [facility] [address] [facility] [place], [address] MCH (RBC) [Entitic mass] 32.9 pg High 27.0-32.0 [facility] Comment on above: Performed By: #### L 509.4006, BTS, L3890.6006, L3890.6102, L900.0098, L509.8002, L3890.6301, L100.0100 #### [facility] [address] [place], [address] MCHC (RBC) [Mass/Vol] 34.5 g/dL Normal 32-36 [facility] Comment on above: Performed By: #### L 509.4006, BTS, L3890.6006, L3890.6102, L900.0098, L509.8002, L3890.6301, L100.0100 #### [facility] [address] [place], [address] MCV (RBC) [Entitic vol] 95.4 fL Normal 81-99 [facility] Comment on above: Performed By: #### L 509.4006, BTS, L3890.6006, L3890.6102, L900.0098, L509.8002, L3890.6301, L100.0100 #### [facility] [address] [place], [address] Monocytes/100 WBC (Bld) 6.2 % Normal 0-10 [facility] Comment on above: Performed By: #### L 509.4006, BTS, L3890.6006, L3890.6102, L900.0098, L509.8002, L3890.6301, L100.0100 #### [facility] [address] [place], [address] Neutrophils/100 WBC (Bld) 55.2 % Normal 47-70 [facility] Comment on above: Performed By: #### L 509.4006, BTS, L3890.6006, L3890.6102, L900.0098, L509.8002, L3890.6301, L100.0100 #### [facility] [address] [place], [address] Nucleated RBC (Bld) [#/Vol] 0 10*3/uL Normal 0-5 [facility] Comment on above: Performed By: #### L 509.4006, BTS, L3890.6006, L3890.6102, L900.0098, L509.8002, L3890.6301, L100.0100 #### [facility] [address] [place], [address] Platelet mean volume (Bld) [Entitic vol] 9.5 fL Normal 6.2-12.0 [facility] Comment on above: Performed By: #### L 509.4006, BTS, L3890.6006, L3890.6102, L900.0098, L509.8002, L3890.6301, L100.0100 #### [facility] [address] [place], [address] Platelets (Bld) [#/Vol] 277 10*3/uL Normal 150-450 [facility] Comment on above: Performed By: #### L 509.4006, BTS, L3890.6006, L3890.6102, L900.0098, L509.8002, L3890.6301, L100.0100 #### [facility] [address] [place], [address] RBC (Bld) [#/Vol] 3.89 10*6/uL Low 4.2-5.4 [facility] Comment on above: Performed By: #### L 509.4006, BTS, L3890.6006, L3890.6102, L900.0098, L509.8002, L3890.6301, L100.0100 #### [facility] [address] [place], [address] RDW SD 40.3 fl Normal 35.1-43.9 [facility] Comment on above: Performed By: #### L 509.4006, BTS, L3890.6006, L3890.6102, L900.0098, L509.8002, L3890.6301, L100.0100 #### [facility] [address] [place], [address] WBC (Bld) [#/Vol] 7.1 10*3/uL Normal 4.4-11.0 [facility] Comment on above: Performed By: #### L 509.4006, BTS, L3890.6006, L3890.6102, L900.0098, L509.8002, L3890.6301, L100.0100 #### [facility] [address] [place], [place], [address] (468) Eosinophil percentageOrdered By: Maryann Elin on 07-31-2024 Eosinophils/100 WBC (Bld) 8.3 % High 0-5 [facility] Erythrocyte distribution wid th ratioOrdered By: Maryann Elin on 07-31-2024 Erythrocyte distribution width (RBC) [Ratio] 11.6 % 11.6-14.6 [facility] Erythrocyte distribution wid th standard deviationOrdered By: Maryann Elin on 07-31-2024 Erythrocyte distribution width (RBC) [Ratio] 40.3 fl 35.1-43.9 [facility] HIVon 07-31-2024 HIV Non-Reactive Normal Nonreactive [facility] Comment on above: Result Comment: Non- Reactive Reactive Repeatedly reactive samples must be confirmed according to CDC recommended confirmatory algorithms. The subresults for either HIVAG or AHIV can be used as an aid in the selection of the confirmation algorithm for reactive samples. Send out specimens with Reactive results to [facility] for confirmation. Order the HIV antibody detection and differentiation: #[id number] Performed By: #### L 400.0001 #### [facility] [address] [place], [place], [address] Hematocrit Auto (Bld) [Volum e fraction]Ordered By: Maryann Worthington on 07-31-2024 Hematocrit (Bld) [Volume fraction] 37.1 % 37-47 [facility] Hemoglobin measurementOrdere d By: Maryannanna Worthington on 07-31-2024 Hemoglobin (Bld) [Mass/Vol] 12.8 g/dL 12.0-15.0 [facility] Hepatitis C Antibodyon 07-31 Hepatitis C Ab Non-Reactive Normal Nonreactive [facility] Comment on above: Result Comment: Reac tive: Presumptive evidence of antibodies to HCV. Follow CDC recommendations for supplemental testing. Non-Reactive: Antibodies to HCV were not detected; does not exclude the possibility of exposure to HCV Reactive Results are presumptive evidence of antibodies to HCV. Follow CDC recommendations for supplemental testing. Order confirmation testing: HCV Quant by PCR testing - [facility]PCR #[id number] Non Reactive: < 0.8 Equivocal: >/= 0.8 to < 1.0 Reactive: >/= 1.0 The CDC requires that a reactive/equivocal HCV antibody result be sent out for confirmation. HCV Quant by PCR testing. Performed By: #### L 400.0001 #### [facility] [address] [facility] [place], [place], [id number] Immature granulocytes/100 WB C Auto (Bld)Ordered By: aMryann Worthington on 07-31-2024 Immature granulocytes/100 WBC (Bld) 0.300 % 0.0-0.9 [facility] Comment on above: IG% - Immature Granu locytes (promyelocytes, myelocytes and metamyelocytes) > 1% indicates that a LEFT SHIFT is Present. L3890.6102on 07-31-2024 HEP B Surf Ag Non-Reactive Normal Nonreactive [facility] Comment on above: Result Comment: Reac tive: Presumptive evidence of HBV. Repeatedly reactive samples must be confirmed using a neutralization test (Elecsys HBsAg Confirmatory Test) Non-Reactive: HBsAg not detected; does not exclude the possibility of exposure to HBV Performed By: #### L 400.0001 #### [facility] [address] [facility] [place], [address] L509.4006on 07-31-2024 Rubella IgG REAC Normal Nonreactive [facility] Comment on above: Result Comment: Anti body Result: Interpretation Non-Reactive: Non-Immune Reactive: Immune The following results were obtained with the Elecsys Rubella IgG assay. Results from assays of other manufacturers cannot be used interchangeably. Performed By: #### L 509.4006, BTS, L3890.6006, L3890.6102, L900.0098, L509.8002, L3890.6301, L100.0100 #### [facility] [address] [place], [address] Laboratory - Microbiology an d Antimicrobial susceptibilityOrdered By: Maryann Worthington on 07-31-2024 HBV surface Ag Ql (S) Non-Reactive Nonreactive [facility] Comment on above: Reactive: Presumptiv e evidence of HBV. Repeatedly reactive samples must be confirmed using a neutralization test (Elecsys HBsAg Confirmatory Test)Non-Reactive: HBsAg not detected; does not exclude the possibility of exposure to HBV MCV (mean corpuscular volume ) determinationOrdered By: Maryann Worthington on 07-31-2024 MCV (RBC) [Entitic vol] 95.4 fL 81-99 [facility] Mean corpuscular hemoglobin (MCH) determinationOrdered By: Maryann Worthington on 07-31-2024 MCH (RBC) [Entitic mass] 32.9 pg High 27.0-32.0 [facility] Mean corpuscular hemoglobin concentration (MCHC) determinationOrdered By: Maryann Worthington on 07-31-2024 MCHC (RBC) [Mass/Vol] 34.5 g/dL 32-36 [facility] Mean platelet volume determi nationOrdered By: Maryann Worthington on 07-31-2024 Platelet mean volume (Bld) [Entitic vol] 9.5 fL 6.2-12.0 [facility] Monocyte percentageOrdered B y: Maryann Worthington on 07-31-2024 Monocytes/100 WBC (Bld) 6.2 % 0-10 [facility] NATERAon 07-31-2024 NATURA SEE SCANNED REPORT Normal [facility] Comment on above: Performed By: #### L 509.4006, BTS, L3890.6006, L3890.6102, L900.0098, L509.8002, L3890.6301, L100.0100 #### [facility] [address] [place], [address] Neutrophil percentageOrdered By: Maryann Worthington on 07-31-2024 Neutrophils/100 WBC (Bld) 55.2 % 47-70 [facility] No Panel InformationOrdered By: Maryann Worthington on 07-31-2024 HIV (1&2) Antibody Non-Reactive Nonreactive [facility] Comment on above: Non-ReactiveReactive Repeatedly reactive samples must be confirmed according to CDC recommended confirmatory algorithms. The subresults for either HIVAG or AHIV can be used as an aid in the selection of the confirmation algorithm for reactive samples.Send out specimens with Reactive results to [facility] for confirmation.Order the HIV antibody detection and differentiation: #[id number] Nucleated red blood cell per centageOrdered By: Maryann Worthington on 07-31-2024 Nucleated RBC/100 WBC (Bld) [Ratio] 0 % 0-5 [facility] Platelet countOrdered By: Blas hinsonagnes Elin on 07-31-2024 Platelets (Bld) [#/Vol] 277 10*3/uL 150-450 [facility] RBC Auto (Bld) [#/Vol]Ordere d By: Maryann Worthington on 07-31-2024 RBC (Bld) [#/Vol] 3.89 10*6/uL Low 4.2-5.4 [facility] Syphilis Antibodieson 2024 Syphilis Abs Non-Reactive Normal Nonreactive [facility] Comment on above: Performed By: #### L 509.4006, BTS, L3890.6006, L3890.6102, L900.0098, L509.8002, L3890.6301, L100.0100 #### [facility] [address] [place], [place], [id number] Type AND Screenon 07-31-2024 ABO and Rh group Nom (Bld) Blood group A Rh(D) positive Normal [facility] Comment on above: Order Comment: CLEAN CATCH Performed By: #### L 400.0001 #### [facility] [address] [facility] [place], [place], [id number] White blood cell (WBC) count Ordered By: Mayrann Worthington on 07-31-2024 WBC (Bld) [#/Vol] 7.1 10*3/uL 4.4-11.0 [facility] Chlamydia/GC YANDY aptimaon CHLAMY,NUC ACID Negative Normal Negative [facility] Comment on above: Performed By: #### L 501.0250, L100.0100, L509.8002, L3890.6006 #### [facility] [address] [place], [place], [id number] GC BY NUC ACID Negative Normal Negative [facility] Comment on above: Result Comment: Perf ormed at: =G - [facility] [address] [id number] Plasma Processor: Radha Alfaro MD, Phone: [phone] Performed By: #### L 501.0250, L100.0100, L509.8002, L3890.6006 #### [facility] [address] [place], [place], [address] Urine Cultureon 07-23-2024 URC Presumptive C albicans [place] Count <1000 Mixed Gram Positive Organisms Mixed Gram Positive Organisms MIXC Mixed contaminants. Submit a new specimen if indicated. Normal [facility] Comment on above: Performed By: #### L 501.0250, L100.0100, L509.8002, L3890.6006 #### [facility] [address] [place], [address] C. trachomatis rRNA YANDY+prob e Ql (Unsp spec)Ordered By: Maryann Worthington on 07-20-2024 Chlamydia DNA (YANDY) Negative Negative [facility] Chlamydia trachomatis rRNA d etection by probe and target amplification methodOrdered By: Maryann Worthington on 07-20-2024 C. trachomatis rRNA YANDY+probe Ql (Unsp spec) Negative Negative [facility] Neisseria gonorrhoeae nuclei c acid detection by amplified probe techniqueOrdered By: Maryann Worthington on 07-20-2024 N. gonorrhoeae DNA YANDY+probe Ql (Unsp spec) Negative Negative [facility] Comment on above: Performed at: =G - [facility] [address] [id number] Director: Radha Alfaro MD, Phone: [phone] [employer] Office Visit Reporton 07-20-2024 [employer] Office Visit Report [facility]'[address], [address] [place] [address] OFFICE VISIT Date of Service: 07/20/24 MR#: [id number] Acct: [id number] Name: HANNAH HENDRICKS Rep #: [id number] : 1990 Provider: Dr. Maryann Mcclain DO Age/Sex: 34/F [place] [facility] [place]: Signed Intake Vital Signs 04/14/24 14:22 07/20/24 13:58 07/20/24 13:59 Height 5 ft 6 in 5 ft 6 in 5 ft 6 in Weight: 182 lb 6 oz BMI 29.4 BP 117/79 Intake Visit Reasons: NOB LMP 05/23 [employer] Required: No Is patient in pain?: No [...] 3-4 times per week duration: 15-30 minutes/day agata/anabaptism: [employer] seatbelt use: always do you feel safe at home: Yes 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 Date Name GA/Weeks Outcome Route Bth Weight Infant Gen Labor Lgth Anesthesia Del Locatn Provider FOB 08/11/20 Janie 39 live - full term 7lbs 8.5oz Female epidural [facility] Dr. Quang Samaniego 03/15/24 4 spontaneous Delivery [...] 117/79 -???-???-???-? (more content not included)... Normal [facility] Urine cultureOrdered By: Leah Worthington on 07-20-2024 Bacteria identified Cx Nom (U) Presumptive C albicans Abnormal [facility] Bacteria identified Cx Nom (U) Positive Abnormal [facility] Transvaginal w/Preg USon Transvaginal w/Preg [facility] Imaging Services [address] [place] [address] Transvaginal w/Preg MR#: [id number] Acct: [id number] Name: HANNAH HENDRICKS Rep #: [id number] : 1990 F 34 From: Hayde Yuan MD PCP: Dr. Thomas Salinas MD Status: [facility] CLI Study: Transvaginal w/Preg US Date of Exam: 07/02/24 Exam# [id number] Ordering Dr: Maryann Bajwa DO PROCEDURE: TRANSVAGINAL [...] 3. Additional description as above. Reading Location: [id number] CC: Dr. Maryann Bajwa DO; Dr. Thomas Salinas MD Family Psychologist: Signed Normal [facility] HCG ( test) QlOrder ed By: Maryann Worthington on 06-27-2024 Human Chorionic Gonadotropin, Quant 5354 mIU/mL High <9 [facility] Comment on above: Gestational Age0.2-1 Week: 5-50 mIU/mL1-2 Weeks: 50-500 mIU/mL2-3 Weeks: 100-5000 mIU/mL3-4 Weeks: 500-10,000 mIU/mL4-5 Weeks:1000-50,000 mIU/mL5-6 Weeks: 10,000-100,000 mIU/mL6-8 Weeks: 15,000-200,000 mIU/mL2-3 Months:10,000-100,000 mIU/mL Serum human chorionic gonado tropin detection for pregnancyOrdered By: Maryann Worthington on 06-27-2024 HCG ( test) Ql 5354 mIU/mL High <9 [facility] Comment on above: Gestational Age0.2-1 Week: 5-50 mIU/mL1-2 Weeks: 50-500 mIU/mL2-3 Weeks: 100-5000 mIU/mL3-4 Weeks: 500-10,000 mIU/mL4-5 Weeks:1000-50,000 mIU/mL5-6 Weeks: 10,000-100,000 mIU/mL6-8 Weeks: 15,000-200,000 mIU/mL2-3 Months:10,000-100,000 mIU/mL hCG Titer Quant., Serumon HCG QUANT. 5354 mIU/mL High <9 non-preg [facility] Comment on above: Result Comment: Gest ational Age 0.2-1 Week: 5-50 mIU/mL 1-2 Weeks: 50-500 mIU/mL 2-3 Weeks: 100-5000 mIU/mL 3-4 Weeks: 500-10,000 mIU/mL 4-5 Weeks:1000-50,000 mIU/mL 5-6 Weeks: 10,000-100,000 mIU/mL 6-8 Weeks: 15,000-200,000 mIU/mL 2-3 Months:10,000-100,000 mIU/mL Performed By: #### L 400.0001 #### [facility] [address] [place], [place], [id number] HCG ( test) QlOrder ed By: Maryann Worthington on 06-25-2024 Human Chorionic Gonadotropin, Quant 2419 mIU/mL High <9 [facility] Comment on above: Gestational Age0.2-1 Week: 5-50 mIU/mL1-2 Weeks: 50-500 mIU/mL2-3 Weeks: 100-5000 mIU/mL3-4 Weeks: 500-10,000 mIU/mL4-5 Weeks:1000-50,000 mIU/mL5-6 Weeks: 10,000-100,000 mIU/mL6-8 Weeks: 15,000-200,000 mIU/mL2-3 Months:10,000-100,000 mIU/mL Serum human chorionic gonado tropin detection for pregnancyOrdered By: Maryann Worthington on 06-25-2024 HCG ( test) Ql 2419 mIU/mL High <9 [facility] Comment on above: Gestational Age0.2-1 Week: 5-50 mIU/mL1-2 Weeks: 50-500 mIU/mL2-3 Weeks: 100-5000 mIU/mL3-4 Weeks: 500-10,000 mIU/mL4-5 Weeks:1000-50,000 mIU/mL5-6 Weeks: 10,000-100,000 mIU/mL6-8 Weeks: 15,000-200,000 mIU/mL2-3 Months:10,000-100,000 mIU/mL Transvaginal w/Preg USon Transvaginal w/Preg US [facility] Imaging Services [address] [place] [address] Transvaginal w/Preg US MR#: [id number] Acct: [id number] Name: HANNAH HENDRICKS Rep #: [id number] : 1990 F 34 From: Hayde Yuan MD PCP: Dr. Thomas Salinas MD Status: [facility] CLI Study: Transvaginal w/Preg US Date of Exam: 06/25/24 Exam# [id number] Ordering Dr: Maryann Bajwa DO PROCEDURE: TRANSVAGINAL [...] 3. Additional description as above. Reading Location: [id number] CC: Dr. Maryann Bajwa DO; Dr. Thomas Salinas MD Family Psychologist: Signed Normal [facility] hCG Titer Quant., Serumon HCG QUANT. 2419 mIU/mL High <9 non-preg [facility] Comment on above: Result Comment: Gest ational Age 0.2-1 Week: 5-50 mIU/mL 1-2 Weeks: 50-500 mIU/mL 2-3 Weeks: 100-5000 mIU/mL 3-4 Weeks: 500-10,000 mIU/mL 4-5 Weeks:1000-50,000 mIU/mL 5-6 Weeks: 10,000-100,000 mIU/mL 6-8 Weeks: 15,000-200,000 mIU/mL 2-3 Months:10,000-100,000 mIU/mL Performed By: #### L 400.0001 #### [facility] [address] [place], [address] HCG ( test) QlOrder ed By: Maryann Worthington on 06-18-2024 Human Chorionic Gonadotropin, Quant 110 mIU/mL High <9 [facility] Comment on above: Gestational Age0.2-1 Week: 5-50 mIU/mL1-2 Weeks: 50-500 mIU/mL2-3 Weeks: 100-5000 mIU/mL3-4 Weeks: 500-10,000 mIU/mL4-5 Weeks:1000-50,000 mIU/mL5-6 Weeks: 10,000-100,000 mIU/mL6-8 Weeks: 15,000-200,000 mIU/mL2-3 Months:10,000-100,000 mIU/mL Serum human chorionic gonado tropin detection for pregnancyOrdered By: Maryann Worthington on 06-18-2024 HCG ( test) Ql 110 mIU/mL High <9 [facility] Comment on above: Gestational Age0.2-1 Week: 5-50 mIU/mL1-2 Weeks: 50-500 mIU/mL2-3 Weeks: 100-5000 mIU/mL3-4 Weeks: 500-10,000 mIU/mL4-5 Weeks:1000-50,000 mIU/mL5-6 Weeks: 10,000-100,000 mIU/mL6-8 Weeks: 15,000-200,000 mIU/mL2-3 Months:10,000-100,000 mIU/mL hCG Titer Quant., Serumon HCG QUANT. 110 mIU/mL High <9 non-preg [facility] Comment on above: Result Comment: Gest ational Age 0.2-1 Week: 5-50 mIU/mL 1-2 Weeks: 50-500 mIU/mL 2-3 Weeks: 100-5000 mIU/mL 3-4 Weeks: 500-10,000 mIU/mL 4-5 Weeks:1000-50,000 mIU/mL 5-6 Weeks: 10,000-100,000 mIU/mL 6-8 Weeks: 15,000-200,000 mIU/mL 2-3 Months:10,000-100,000 mIU/mL Performed By: #### L 400.0001 #### [facility] [address] [place], [place], [address] HCG ( test) QlOrder ed By: Maryann Worthington on 06-16-2024 Human Chorionic Gonadotropin, Quant 37 mIU/mL High <9 [facility] Comment on above: Gestational Age0.2-1 Week: 5-50 mIU/mL1-2 Weeks: 50-500 mIU/mL2-3 Weeks: 100-5000 mIU/mL3-4 Weeks: 500-10,000 mIU/mL4-5 Weeks:1000-50,000 mIU/mL5-6 Weeks: 10,000-100,000 mIU/mL6-8 Weeks: 15,000-200,000 mIU/mL2-3 Months:10,000-100,000 mIU/mL Serum human chorionic gonado tropin detection for pregnancyOrdered By: Maryann Worthington on 06-16-2024 HCG ( test) Ql 37 mIU/mL High <9 [facility] Comment on above: Gestational Age0.2-1 Week: 5-50 mIU/mL1-2 Weeks: 50-500 mIU/mL2-3 Weeks: 100-5000 mIU/mL3-4 Weeks: 500-10,000 mIU/mL4-5 Weeks:1000-50,000 mIU/mL5-6 Weeks: 10,000-100,000 mIU/mL6-8 Weeks: 15,000-200,000 mIU/mL2-3 Months:10,000-100,000 mIU/mL hCG Titer Quant., Serumon HCG QUANT. 37 mIU/mL High <9 non-preg [facility] Comment on above: Result Comment: Gest ational Age 0.2-1 Week: 5-50 mIU/mL 1-2 Weeks: 50-500 mIU/mL 2-3 Weeks: 100-5000 mIU/mL 3-4 Weeks: 500-10,000 mIU/mL 4-5 Weeks:1000-50,000 mIU/mL 5-6 Weeks: 10,000-100,000 mIU/mL 6-8 Weeks: 15,000-200,000 mIU/mL 2-3 Months:10,000-100,000 mIU/mL Performed By: #### L 400.0001 #### [facility] [address] [place], [address] HCG ( test) QlOrder ed By: Barbie Mitchell on 04-14-2024 Human Chorionic Gonadotropin, Quant < 1 mIU/mL <4 [facility] Comment on above: hCG levels with Gest ational AgeGestational Age hCG mIU/mL (IU/L)0.2 - 1 week 5 - 501-2 weeks 50 - 5002-3 weeks 100 - 04055-9 weeks 500 - 047353-3 weeks 1000 - 994562-0 weeks 00492 - 100,0006-8 weeks 07653 - 200,0002-3 months 84781 - 100,000 [employer] Office Visit Reporton 04-14-2024 [employer] Office Visit Report [facility] [address], [address] [place] [address] OFFICE VISIT Date of Service: 04/14/24 MR#: [id number] Acct: [id number] Name: HANNAH HENDRICKS Rep #: [id number] : 1990 Provider: SHAWN wray Age/Sex: 34/F [place] [facility] [place]: Signed Intake Vital Signs 04/01/24 16:16 04/14/24 14:19 04/14/24 14:22 Height 5 ft 6 in 5 ft 6 in 5 ft 6 in Weight: 178 lb 8 oz BMI 28.8 BP 114/78 Intake Visit Reasons: Miscarriage F/U Chief Complaint: Miscarriage F/u Ge[employer] Required: No Is patient in pain?: No [...] 1 current occupational status: employed current occupation: [employer] current occupational exposures/hazards: No pets and animals: [...] safe at home: Yes 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 [place] Delivery Date: 08/11/20 Last [...] (if applicable (more content not included)... Normal [facility] hCG Titer Quant., Serumon HCG QUANT. < 1 Normal 1-3 [facility] Comment on above: Result Comment: hCG levels with Gestational Age Gestational Age hCG mIU/mL (IU/L) 0.2 - 1 week 5 - 50 1-2 weeks 50 - 500 2-3 weeks 100 - 5000 3-4 weeks 500 - 82194 4-5 weeks 1000 - 56953 5-6 weeks 78558 - 100,000 6-8 weeks 69553 - 200,000 2-3 months 68482 - 100,000 Performed By: #### L 501.0250, L100.0100, L509.8002, L3890.6006 #### [facility] [address] [place], [address] HCG ( test) QlOrder ed By: Isabel Marino on 04-06-2024 Human Chorionic Gonadotropin, Quant 6 mIU/mL High <4 [facility] hCG Titer Quant., Serumon HCG QUANT. 6 mIU/mL High 1-3 [facility] Comment on above: Performed By: #### L 400.0001 #### [facility] [address] [place], [address] HCG ( test) QlOrder ed By: Isabel Marino on 04-03-2024 Human Chorionic Gonadotropin, Quant 8 mIU/mL High <4 [facility] hCG Titer Quant., Serumon HCG QUANT. 8 mIU/mL High 1-3 [facility] Comment on above: Performed By: #### L 501.0250, L100.0100, L509.8002, L3890.6006 #### [facility] [address] [facility] [place], [address] Absolute neutrophil countOrd ered By: Royce Chapin on 04-01-2024 Neutrophils (Bld) [#/Vol] 2.4 10*3/uL 2.0-7.7 [facility] Basic Metabolic Profile (BMP )on 04-01-2024 BUN/CRE 17.1 RATIO Normal 02-01 [facility] Comment on above: Performed By: #### L 501.0250, L100.0100, L509.8002, L3890.6006 #### [facility] [address] [place], [address] CA,Total 9.2 mg/dL Normal 8.5-10.1 [facility] Comment on above: Performed By: #### L 501.0250, L100.0100, L509.8002, L3890.6006 #### [facility] [address] [place], [address] Chloride [Moles/Vol] 108 mmol/L High 98-107 [facility] Comment on above: Performed By: #### L 501.0250, L100.0100, L509.8002, L3890.6006 #### [facility] [address] [place], [address] CO2 [Moles/Vol] 29.0 mmol/L Normal 21.0-32.0 [facility] Comment on above: Performed By: #### L 501.0250, L100.0100, L509.8002, L3890.6006 #### [facility] [address] [place], [address] Creatinine [Mass/Vol] 0.88 mg/dL Normal 0.55-1.02 [facility] Comment on above: Result Comment: The validity of the calculated GFR GFRAA in patients over 70 years has not been determined. Clinical correlation is essential. Performed By: #### L 501.0250, L100.0100, L509.8002, L3890.6006 #### [facility] [address] [place], [address] ECRCL 99.21 ml/min Normal [facility] Comment on above: Performed By: #### L 501.0250, L100.0100, L509.8002, L3890.6006 #### [facility] [address] [place], [address] EST GFR - AA 96 mL/min Normal >60 [facility] Comment on above: Result Comment: Afri can Citizen Of [place] GFR Calc Performed By: #### L 501.0250, L100.0100, L509.8002, L3890.6006 #### [facility] [address] [place], [address] GAP 2 Low 5-15 [facility] Comment on above: Performed By: #### L 501.0250, L100.0100, L509.8002, L3890.6006 #### [facility] [address] [place], [address] GFR/1.73 sq M.predicted among non-blacks MDRD (S/P/Bld) [Vol rate/Area] 79 mL/min/{1.73_m2} Normal >60 [facility] Comment on above: Result Comment: Non- GFR Calc Performed By: #### L 501.0250, L100.0100, L509.8002, L3890.6006 #### [facility] [address] [place], [address] Glucose [Mass/Vol] 91 mg/dL Normal 74-106 [facility] Comment on above: Performed By: #### L 501.0250, L100.0100, L509.8002, L3890.6006 #### [facility] [address] [place], [address] Potassium [Moles/Vol] 3.6 mmol/L Normal 3.5-5.1 [facility] Comment on above: Performed By: #### L 501.0250, L100.0100, L509.8002, L3890.6006 #### [facility] [address] [place], [address] Sodium [Moles/Vol] 139 mmol/L Normal 136-145 [facility] Comment on above: Performed By: #### L 501.0250, L100.0100, L509.8002, L3890.6006 #### [facility] [address] [place], [address] Urea nitrogen [Mass/Vol] 15 mg/dL Normal - [facility] Comment on above: Performed By: #### L 501.0250, L100.0100, L509.8002, L3890.6006 #### [facility] [address] [place], [address] Basophil percentageOrdered B y: Royce Chapin on 04-01-2024 Basophils/100 WBC (Bld) 1.2 % High 0-1 [facility] Bilirubin Test strip Ql (U)O rdered By: Royce Chapin on 04-01-2024 Bilirubin Ql (U) Negative Negative [facility] Blood urea nitrogen (BUN)/cr eatinine ratioOrdered By: Royce Chapin on 04-01-2024 Urea nitrogen/Creatinine [Mass ratio] 17.1 mg/mg 10- [facility] CBC W/Diff, Automatedon 03-15 Absolute Lymph 1.45 X10 3/uL Normal 0.83-4.51 [facility] Comment on above: Performed By: #### L 501.0250, L100.0100, L509.8002, L3890.6006 #### [facility] [address] [place], [address] Absolute Neut 2.4 X10 3/uL Normal 2.0-7.7 [facility] Comment on above: Performed By: #### L 501.0250, L100.0100, L509.8002, L3890.6006 #### [facility] [address] [place], [address] Basophils/100 WBC (Bld) 1.2 % High 0-1 [facility] Comment on above: Performed By: #### L 501.0250, L100.0100, L509.8002, L3890.6006 #### [facility] [address] [place], [address] Eosinophils/100 WBC (Bld) 8.1 % High 0-5 [facility] Comment on above: Performed By: #### L 501.0250, L100.0100, L509.8002, L3890.6006 #### [facility] [address] [place], [address] Erythrocyte distribution width (RBC) [Ratio] 11.4 % Low 11.6-14.6 [facility] Comment on above: Performed By: #### L 501.0250, L100.0100, L509.8002, L3890.6006 #### [facility] [address] [place], [address] Hematocrit (Bld) [Volume fraction] 40.6 % Normal 37-47 [facility] Comment on above: Performed By: #### L 501.0250, L100.0100, L509.8002, L3890.6006 #### [facility] [address] [place], [address] Hemoglobin (Bld) [Mass/Vol] 13.9 g/dL Normal 12.0-15.0 [facility] Comment on above: Performed By: #### L 501.0250, L100.0100, L509.8002, L3890.6006 #### [facility] [address] [place], [address] IG% 0.200 Normal 0.0-0.9 [facility] Comment on above: Result Comment: IG% - Immature Granulocytes (promyelocytes, myelocytes and metamyelocytes) > 1% indicates that a LEFT SHIFT is Present. Performed By: #### L 501.0250, L100.0100, L509.8002, L3890.6006 #### [facility] [address] [place], [address] Lymphocytes/100 WBC (Bld) 28.7 % Normal 19-41 [facility] Comment on above: Performed By: #### L 501.0250, L100.0100, L509.8002, L3890.6006 #### [facility] [address] [place], [address] MCH (RBC) [Entitic mass] 33.6 pg High 27.0-32.0 [facility] Comment on above: Performed By: #### L 501.0250, L100.0100, L509.8002, L3890.6006 #### [facility] [address] [place], [address] MCHC (RBC) [Mass/Vol] 34.2 g/dL Normal 32-36 [facility] Comment on above: Performed By: #### L 501.0250, L100.0100, L509.8002, L3890.6006 #### [facility] [address] [place], [address] MCV (RBC) [Entitic vol] 98.1 fL Normal 81-99 [facility] Comment on above: Performed By: #### L 501.0250, L100.0100, L509.8002, L3890.6006 #### [facility] [address] [place], [address] Monocytes/100 WBC (Bld) 14.7 % High 0-10 [facility] Comment on above: Performed By: #### L 501.0250, L100.0100, L509.8002, L3890.6006 #### [facility] [address] [place], [address] Neutrophils/100 WBC (Bld) 47.1 % Normal 47-70 [facility] Comment on above: Performed By: #### L 501.0250, L100.0100, L509.8002, L3890.6006 #### [facility] [address] [place], [address] Nucleated RBC (Bld) [#/Vol] 0 10*3/uL Normal 0-5 [facility] Comment on above: Performed By: #### L 501.0250, L100.0100, L509.8002, L3890.6006 #### [facility] [address] [place], [address] Platelet mean volume (Bld) [Entitic vol] 9.1 fL Normal 6.2-12.0 [facility] Comment on above: Performed By: #### L 501.0250, L100.0100, L509.8002, L3890.6006 #### [facility] [address] [place], [address] Platelets (Bld) [#/Vol] 306 10*3/uL Normal 150-450 [facility] Comment on above: Performed By: #### L 501.0250, L100.0100, L509.8002, L3890.6006 #### [facility] [address] [place], [address] RBC (Bld) [#/Vol] 4.14 10*6/uL Low 4.2-5.4 [facility] Comment on above: Performed By: #### L 501.0250, L100.0100, L509.8002, L3890.6006 #### [facility] [address] [place], [address] RDW SD 41.4 fl Normal 35.1-43.9 [facility] Comment on above: Performed By: #### L 501.0250, L100.0100, L509.8002, L3890.6006 #### [facility] [address] [place], [address] WBC (Bld) [#/Vol] 5.1 10*3/uL Normal 4.4-11.0 [facility] Comment on above: Performed By: #### L 501.0250, L100.0100, L509.8002, L3890.6006 #### [facility] [address] [place], [address] Carbon dioxide measurementOr dered By: Royce Chapin on 04-01-2024 CO2 [Moles/Vol] 29.0 mmol/L 21.0-32.0 [facility] Chloride measurementOrdered By: Royce Chapin on 04-01-2024 Chloride [Moles/Vol] 108 mmol/L High 98-107 [facility] Emergency Department Summary on 04-01-2024 Emergency Department Summary [facility] Medical Records Department [address] [facility] [place] [address] Emergency Department Summary 04/01/24 MR#: [id number] Acct: [id number] Name: HANNAH HENDRICKS Rep #: [id number] : 1990 34 From: Royce Chapin DO [...] fevers or chills. Patient denies any dysuria. 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 Normal [facility] Eosinophil percentageOrdered By: Royce Chapin on 04-01-2024 Eosinophils/100 WBC (Bld) 8.1 % High 0-5 [facility] Epithelial cells.squamous LM Ql (Urine sed)Ordered By: Royce Chapin on 04-01-2024 Epithelial cells.squamous LM.HPF (Urine sed) [#/Area] 0 /[HPF] 5-10 [facility] Erythrocyte distribution wid th ratioOrdered By: Royce Chapin on 04-01-2024 Erythrocyte distribution width (RBC) [Ratio] 11.4 % Low 11.6-14.6 [facility] Erythrocyte distribution wid th standard deviationOrdered By: Royce Chapin on 04-01-2024 Erythrocyte distribution width (RBC) [Entitic vol] 41.4 fL 35.1-43.9 [facility] Estimated glomerular filtrat ion rate (GFR) AmericanOrdered By: Royce Chapin on 04-01-2024 Estimated GFR (MDRD) Amer 96 mL/min >60 [facility] Comment on above: GFR Calc Estimation of creatinine brad aranceOrdered By: Royce Chapin on 04-01-2024 Estimated Creatinine Clearance Calc 99.21 ml/min [facility] Glomerular filtration rate ( GFR) estimationOrdered By: Royce Chapin on 04-01-2024 Estimated GFR (MDRD) Non-Af Amer 79 mL/min >60 [facility] Comment on above: Non- GFR Calc Glucose Ql (U)Ordered By: Niko Chapin on 04-01-2024 Urine Glucose (UA) Normal mg/dl Normal [facility] Glucose measurementOrdered B y: Royce Chapin on 04-01-2024 Glucose [Mass/Vol] 91 mg/dL 74-106 [facility] HCG ( test) QlOrder ed By: Royce Chapin on 04-01-2024 Human Chorionic Gonadotropin, Quant 9 mIU/mL High <4 [facility] Hematocrit Auto (Bld) [Volum e fraction]Ordered By: Royce Chapin on 04-01-2024 Hematocrit (Bld) [Volume fraction] 40.6 % 37-47 [facility] Hemoglobin measurementOrdere d By: Royce Chapin on 04-01-2024 Hemoglobin (Bld) [Mass/Vol] 13.9 g/dL 12.0-15.0 [facility] Immature granulocytes/100 WB C Auto (Bld)Ordered By: Royce Chapin on 04-01-2024 Immature granulocytes/100 WBC (Bld) 0.200 % 0.0-0.9 [facility] Comment on above: IG% - Immature Granu locytes (promyelocytes, myelocytes and metamyelocytes) > 1% indicates that a LEFT SHIFT is Present. Ketones Test strip Ql (U)Ord ered By: Royce Chapin on 04-01-2024 Ketones Ql (U) Negative Negative [facility] Lymphocytes Auto (Unsp spec) [#/Vol]Ordered By: Royce Chapin on 04-01-2024 Lymphocytes (Bld) [#/Vol] 1.45 10*3/uL 0.83-4.51 [facility] Lymphocytes/100 WBC Auto (Un sp spec)Ordered By: Royce Chapin on 04-01-2024 Lymphocytes/100 WBC (Bld) 28.7 % 19-41 [facility] MCV (mean corpuscular volume ) determinationOrdered By: Royce Chapin on 04-01-2024 MCV (RBC) [Entitic vol] 98.1 fL 81-99 [facility] Mean corpuscular hemoglobin (MCH) determinationOrdered By: Royce Chapin on 04-01-2024 MCH (RBC) [Entitic mass] 33.6 pg High 27.0-32.0 [facility] Mean corpuscular hemoglobin concentration (MCHC) determinationOrdered By: Royce Chapin on 04-01-2024 MCHC (RBC) [Mass/Vol] 34.2 g/dL 32-36 [facility] Mean platelet volume determi nationOrdered By: Royce Chapin on 04-01-2024 Platelet mean volume (Bld) [Entitic vol] 9.1 fL 6.2-12.0 [facility] Microscopic analysis of urin e for red blood cells (RBC)Ordered By: Royce Chapin on 04-01-2024 Urine RBC 10-25 SEEN /hpf 0-5 [facility] Monocyte percentageOrdered B y: Royce Chapin on 04-01-2024 Monocytes/100 WBC (Bld) 14.7 % High 0-10 [facility] Mucus LM Ql (Urine sed)Order ed By: Royce Chapin on 04-01-2024 Mucus Ql (Urine sed) 1+ /hpf [facility] Neutrophil percentageOrdered By: Royce Chapin on 04-01-2024 Neutrophils/100 WBC (Bld) 47.1 % 47-70 [facility] Nitrite Test strip Ql (U)Ord ered By: Royce Chapin on 04-01-2024 Nitrite Ql (U) Negative Negative [facility] Nucleated red blood cell per centageOrdered By: Royce Chapin on 04-01-2024 Nucleated RBC/100 WBC (Bld) [Ratio] 0 % 0-5 [facility] Platelet countOrdered By: Niko Chapin on 04-01-2024 Platelets (Bld) [#/Vol] 306 10*3/uL 150-450 [facility] Potassium measurementOrdered By: Royce Chapin on 04-01-2024 Potassium [Moles/Vol] 3.6 mmol/L 3.5-5.1 [facility] Protein Test strip Ql (U)Ord ered By: Royce Chapin on 04-01-2024 Protein Ql (U) 30 mg/dl High Negative [facility] RBC Auto (Bld) [#/Vol]Ordere d By: Royce Chapin on 04-01-2024 RBC (Bld) [#/Vol] 4.14 10*6/uL Low 4.2-5.4 [facility] Serum anion gap measurementO rdered By: Royce Chapin on 04-01-2024 Anion gap [Moles/Vol] 2 mmol/L Low 5-15 [facility] Serum or plasma calcium tiffanie urement (mass/volume)Ordered By: Royce Chapin on 04-01-2024 Calcium [Mass/Vol] 9.2 mg/dL 8.5-10.1 [facility] Serum or plasma creatinine m easurement (mass/volume)Ordered By: Royce Chapin on 04-01-2024 Creatinine [Mass/Vol] 0.88 mg/dL 0.55-1.02 [facility] Comment on above: The validity of the calculated GFR & GFRAA in patients over 70 years has not been determined. Clinical correlation is essential. Serum or plasma urea nitroge n measurement (mass/volume)Ordered By: Royce Chapin on 04-01-2024 Urea nitrogen [Mass/Vol] 15 mg/dL - [facility] Sodium levelOrdered By: Royce Chapin on 04-01-2024 Sodium [Moles/Vol] 139 mmol/L 136-145 [facility] Transvaginal w/Preg USon Transvaginal w/Preg US [facility] Services [address] [place] [address] Transvaginal w/Preg US MR#: [id number] Acct: [id number] Name: HANNAH HENDRICKS Rep #: [id number] : 1990 F 34 From: Andi Bliss MD PCP: Dr. Thomas Salinas MD Status: REG ER Study: Transvaginal w/Preg US Date of Exam: 04/01/24 Exam# [id number] Ordering Dr: Royce Chapin DO [id number] STUDY: FIRST TRIMESTER OBSTETRICAL ULTRASOUND REASON FOR [...] 19:06 EST Reading Location ID and State: [address] [place] [address] Tel , Service support , CC: Dr. Royce Chapin DO; Dr. Thomas Salinas MD Family Psychologist: Signed Normal [facility] Urinalysis, Completeon 04-01 BACTERIA 1+ /hpf Normal None Seen [facility] Comment on above: Order Comment: CLEAN CATCH Performed By: #### L 400.0001 #### [facility] [address] [place], [address] EPI,SQUAMOUS 0-5 SEEN Normal 5-10 [facility] Comment on above: Order Comment: CLEAN CATCH Performed By: #### L 400.0001 #### [facility] [address] [place], [place], [address] Mucus Ql (Urine sed) 1+ /hpf Normal [facility] Comment on above: Order Comment: CLEAN CATCH Performed By: #### L 400.0001 #### [facility] [address] [facility] [address] RBC 10-25 SEEN Normal 0-5 [facility] Comment on above: Order Comment: CLEAN CATCH Performed By: #### L 400.0001 #### [facility] [address] [place], [address] WBC 5-10 SEEN Normal 0-5 [facility] Comment on above: Order Comment: CLEAN CATCH Performed By: #### L 400.0001 #### [facility] [address] [place], [place], [address] Urine blood detectionOrdered By: Royce Chapin on 04-01-2024 Urine Occult Blood 250 /ul High Negative [facility] Urine clarityOrdered By: Lauren Chapin on 04-01-2024 Clarity (U) Sl. Cloudy Clear [facility] Urine color determinationOrd ered By: Royce Chapin on 04-01-2024 Color (U) Yellow Yellow [facility] Urine leukocyte esterase det ection by dipstickOrdered By: Royce Chapin on 04-01-2024 Leukocyte esterase Test strip Ql (U) 25 /ul High Negative [facility] Urine pHOrdered By: Royce adam on 04-01-2024 pH (U) 7.0 [pH] 5.0 - 8.0 [facility] Urine sediment bacteria coun t by microscopy (number/high power field)Ordered By: Royce Chapin on 04-01-2024 Bacteria LM.HPF (Urine sed) [#/Area] 1 /[HPF] None Seen [facility] Urine specific gravity measu rementOrdered By: Royce Chapin on 04-01-2024 Specific gravity (U) [Rel density] 1.015 1.002-1.030 [facility] Urobilinogen Ql (U)Ordered B y: Royce Chapin on 04-01-2024 Urine Urobilinogen Normal mg/dl Normal [facility] White blood cell (WBC) count Ordered By: Royce Chapin on 04-01-2024 WBC (Bld) [#/Vol] 5.1 10*3/uL 4.4-11.0 [facility] White blood cell countOrdere d By: Royce Chapin on 04-01-2024 Urine WBC 5-10 SEEN /hpf 0-5 [facility] hCG Titer Quant., Serumon HCG QUANT. 9 mIU/mL High 1-3 [facility] Comment on above: Performed By: #### L 501.0250, L100.0100, L509.8002, L3890.6006 #### [facility] [address] [place], [address] C diff Tox gens Stl Ql YANDY+p robeon 07-29-2023 C. difficile toxin genes YANDY+probe Ql (Stl) Negative Normal Negative for C. difficile toxin by PCR [facility] Comment on above: Order Comment: Speci men Type: STOOL SPECIMEN [facility] Address: [address] [place] [address] Performed By: #### 5 4067-4 #### [facility] [place] [id number] [address] [place] [address] [place] Gastrointestinal pathogens i dentified YANDY+probe Nom (Stl)on 07-29-2023 Campylobacter sp DNA YANDY+probe Nom (Unsp spec) Not detected Normal Not Detected [facility] Comment on above: Order Comment: Speci men Type: STOOL SPECIMEN [facility] Address: [address] [place] [address] Performed By: #### 7 9390-1 #### [facility] CLIA [id number] [address] [place] [address] [place] Salmonella sp DNA YANDY+probe Ql (Unsp spec) Not detected Normal Not Detected [facility] Comment on above: Order Comment: Speci men Type: STOOL SPECIMEN [facility] Address: [address] [place] [address] Performed By: #### 7 9390-1 #### [facility] CLIA [id number] [address] [place] [address] OF C[place] Shiga toxin stx gene YANDY+probe Nom (Unsp spec) Not detected Normal Not Detected [facility] Comment on above: Order Comment: Speci men Type: STOOL SPECIMEN [facility] Address: [address] [place] [address] Performed By: #### 7 9390-1 #### [facility] CLIA [id number] [address] [place] [address] OF C[place] Shigella sp DNA YANDY+probe Ql (Unsp spec) Not detected Normal Not Detected [facility] Comment on above: Order Comment: Speci men Type: STOOL SPECIMEN [facility] Address: [address] [place] [address] Performed By: #### 7 9390-1 #### [facility] CLIA [id number] [address] [place] [address] [place] O+P Spec Microon 07-29-2023 Ova and parasites identified LM Nom (Unsp spec) OVA AND PARASITE EXAM: No Parasites Seen Normal [facility] Comment on above: Performed By: #### 6 73-4 #### [facility] CLIA [id number] [address] [place] [address] [place] CNOVon 07-27-2023 CNOV Office Visit ([facility] ) ELADIOHANNAH ([id number]) 1990 F Date Time Provider Department 07/27/23 10:50 AM DIANA TREJO [facility] During your visit today, we recorded the following information about you: Temperature Pulse Respiration Blood pressure 97.7 degrees 98/minute 18/minute 117/69 Weight 73 kg Diana Trejo APRN.EXTRACTIONS TECHNICIAN 07/27/2023 12:13 PM Addendum Assessment and Plan: [...] Diana Trejo APRN.MANDEEP 07/27/2023 12:[address] [facility] Visit Patient Name: Hannah Hendricks Primary Care Physician: Thomas Salinas MD Service Date: 07/27/2023 SUBJECTIVE: Hannah is an pleasant otherwise well 33 year old female who is here today accompanied by her Mom for evaluation of symptom(s)/complaint( s) as below. Presenting with concern of persistent diarrhea since 07/24/2023. Traveled for work recently to [place]. Had salmon Saturday evening upon arrival to [...] Take 1 (more content not included)... Normal [facility] ALLIED HEALTHon 05-16-2023 ALLIED HEALTH HNO ID: [id number] Author: AMANDA AMARAL CT Service: Radiology Author [...] PATIENT PRESENTS WITH AN IMPLANTABLE OR ATTACHED LEAD SETTER: No RADIOLOGY DEPARTMENT: CT; Exam(s) Completed: Brain PERIPHERAL IV DATA: Not applicable SIGNED BY: SIMON Quinn May 16, 2023 4:33 PM Normal [facility] CBC W Auto Differential pane l (Bld)on 05-16-2023 Basophils (Bld) [#/Vol] 0.04 10*3/uL Normal <0.11 [facility] Comment on above: Order Comment: Speci men Type: BLOOD SPECIMENOrdering Facility: [facility] Address: [address] [place] [address] [place] [address] Performed By: #### 5 7021-8 ####[facility] [id number] [place] [address] [place] Basophils/100 WBC (Bld) 0.6 % Normal [facility] Comment on above: Order Comment: Speci men Type: BLOOD SPECIMENOrdering Facility: [facility] Address: [address] [place] [address] Performed By: #### 5 7021-8 ####[facility] [id number] [place] [address] [place] Differential cell count method Nom (Bld) Auto Normal [facility] Comment on above: Order Comment: Speci men Type: BLOOD SPECIMENOrdering Facility: [facility] Address: [address] [place] [address] Performed By: #### 5 7021-8 ####[facility] [id number] [place] [address] [place] Eosinophils (Bld) [#/Vol] 0.61 10*3/uL High <0.46 [facility] Comment on above: Order Comment: Speci men Type: BLOOD SPECIMENOrdering Facility: [facility] Address: [address] [place] [address] Performed By: #### 5 7021-8 ####[facility]ORY[facility] [id number] [place] [address] [place] Eosinophils/100 WBC (Bld) 8.4 % Normal [facility] Comment on above: Order Comment: Speci men Type: BLOOD SPECIMENOrdering Facility: [facility] Address: [address] [place] [address] Performed By: #### 5 7021-8 ####[facility] [id number] [address] [place] Erythrocyte distribution width (RBC) [Ratio] 11.6 % Normal 11.5-15.0 [facility] Comment on above: Order Comment: Speci men Type: BLOOD SPECIMENOrdering Facility: [facility] Address: [address] [place] [address] Performed By: #### 5 7021-8 ####[facility]ORYCL[facility] [id number] [address] OF [place] Hematocrit (Bld) [Volume fraction] 37.8 % Normal 36.0-46.0 [facility] Comment on above: Order Comment: Speci men Type: BLOOD SPECIMENOrdering Facility: [facility] Address: [address] [place] [address] Performed By: #### 5 7021-8 ####[facility]ORY[facility] [id number] [place] [address] [place] Hemoglobin (Bld) [Mass/Vol] 12.9 g/dL Normal 11.5-15.5 [facility] Comment on above: Order Comment: Speci men Type: BLOOD SPECIMENOrdering Facility: [facility] Address: [address] [place] [address] Performed By: #### 5 7021-8 ####[facility]ORYCLIA [id number] [place] [address] [place] Immature granulocytes (Bld) [#/Vol] 10*3/uL Normal <0.10 [facility] Comment on above: Order Comment: Speci men Type: BLOOD SPECIMENOrdering Facility: [facility] Address: [address] [place] [address] Performed By: #### 5 7021-8 ####[facility]ORYCLIA [id number] [place] [address] [place] Immature granulocytes/100 WBC (Bld) 0.1 % Normal [facility] Comment on above: Order Comment: Speci men Type: BLOOD SPECIMENOrdering Facility: [facility] Address: [address] [place] [address] Performed By: #### 5 7021-8 ####[facility]ORYCLIA [id number] [place] [address] [place] Lymphocytes (Bld) [#/Vol] 2.34 10*3/uL Normal 1.00-4.00 [facility] Comment on above: Order Comment: Speci men Type: BLOOD SPECIMENOrdering Facility: [facility] Address: [address] [place] [address] Performed By: #### 5 7021-8 ####[facility]ATORYCLIA [id number] [place] [address] [place] Lymphocytes/100 WBC (Bld) 32.3 % Normal [facility] Comment on above: Order Comment: Speci men Type: BLOOD SPECIMENOrdering Facility: [facility] Address: [address] [place] [address] Performed By: #### 5 7021-8 ####[facility]ORYCLIA [id number] [address] MCH (RBC) [Entitic mass] 33.1 pg Normal 26.0-34.0 [facility] Comment on above: Order Comment: Speci men Type: BLOOD SPECIMENOrdering Facility: [facility] Address: [address] [place] [address] Performed By: #### 5 7021-8 ####[facility]ORYCLIA [id number] [address] STATES [facility] MCHC (RBC) [Mass/Vol] 34.1 g/dL Normal 30.5-36.0 [facility] Comment on above: Order Comment: Speci men Type: BLOOD SPECIMENOrdering Facility: [facility] Address: [address] [place] [address] Performed By: #### 5 7021-8 ####[facility]ATORYCLIA [id number] [address] MCV (RBC) [Entitic vol] 96.9 fL Normal 80.0-100.0 [facility] Comment on above: Order Comment: Speci men Type: BLOOD SPECIMENOrdering Facility: [facility] Address: [address] [place] [address] Performed By: #### 5 7021-8 ####[facility]ATORYCLIA [id number] [address] Monocytes (Bld) [#/Vol] 0.97 10*3/uL High <0.87 [facility] Comment on above: Order Comment: Speci men Type: BLOOD SPECIMENOrdering Facility: [facility] Address: [address] [place] [address] Performed By: #### 5 7021-8 ####[facility]ATORYCLIA [id number] [address] Monocytes/100 WBC (Bld) 13.4 % Normal [facility] Comment on above: Order Comment: Speci men Type: BLOOD SPECIMENOrdering Facility: [facility] Address: [address] [place] [address] Performed By: #### 5 7021-8 ####[facility]ORYCLIA [id number] [place] [address] [place] Neutrophils (Bld) [#/Vol] 3.27 10*3/uL Normal 1.45-7.50 [facility] Comment on above: Order Comment: Speci men Type: BLOOD SPECIMENOrdering Facility: [facility] Address: [address] [place] [address] Performed By: #### 5 7021-8 ####[facility]ATORYCLIA [id number] [address] [place] Neutrophils/100 WBC (Bld) 45.2 % Normal [facility] Comment on above: Order Comment: Speci men Type: BLOOD SPECIMENOrdering Facility: [facility] Address: [address] [place] [address] Performed By: #### 5 7021-8 ####[facility]ATORYCLIA [id number] [place] [address] [place] Nucleated RBC (Bld) [#/Vol] 10*3/uL Normal <0.01 [facility] Comment on above: Order Comment: Speci men Type: BLOOD SPECIMENOrdering Facility: [facility] Address: [address] [place] [address] Performed By: #### 5 7021-8 ####[facility]ATORYCLIA [id number] [address] OF [place] Nucleated RBC/100 WBC (Bld) [Ratio] 0.0 /100 WBC Normal [facility] Comment on above: Order Comment: Speci men Type: BLOOD SPECIMENOrdering Facility: [facility] Address: [address] [place] [address] Performed By: #### 5 7021-8 ####[facility]ATORYCLIA [id number] [place] [address] [place] Platelet mean volume (Bld) [Entitic vol] 9.2 fL Normal 9.0-12.7 [facility] Comment on above: Order Comment: Speci men Type: BLOOD SPECIMENOrdering Facility: [facility] Address: [address] [place] [address] Performed By: #### 5 7021-8 ####URBAN LABORATORYCLIA [id number] [address] OF [place] Platelets (Bld) [#/Vol] 298 10*3/uL Normal 150-400 [facility] Comment on above: Order Comment: Speci men Type: BLOOD SPECIMENOrdering Facility: [facility] Address: [address] [place] [address] Performed By: #### 5 7021-8 ####URBAN LABORATORYCLIA [id number] [place] [address] [place] RBC (Bld) [#/Vol] 3.90 10*6/uL Normal 3.90-5.[address] [facility] Comment on above: Order Comment: Speci men Type: BLOOD SPECIMENOrdering Facility: [facility] Address: [address] [place] [address] Performed By: #### 5 7021-8 ####URBAN LABORATORYCLIA [id number] [place] [address] [place] WBC (Bld) [#/Vol] 7.24 10*3/uL Normal 3.70-11.[address] [facility] Comment on above: Order Comment: Speci men Type: BLOOD SPECIMENOrdering Facility: [facility] Address: [address] [place] [address] Performed By: #### 5 7021-8 ####URBAN LABORATORYCLIA [id number] [address] [place] [address] BRAIN WO IVCONon 05-16-[address] BRAIN WO IVCON * * *Final Report* * * DATE OF EXAM: May 16 2023 4:35PM [facility] [place] BRAIN WO IVCON / [...] base and imaged soft tissues are unremarkable. Strip Feeder (topogram) images: No additional findings. IMPRESSION: No CT evidence of acute intracranial abnormality. Family Psychologist: PSCB Transcribe Date/Time: May 16 2023 5:13P Dictated by : CHRISTINA MONAHAN DO This examination was interpreted and the report reviewed and electronically signed by: CHRISTINA MONAHAN DO on May 16 2023 5:30PM EST [id number] N Normal [facility] Comprehensive metabolic 2000 panelon 05-16-2023 Albumin [Mass/Vol] 4.4 g/dL Normal 3.9-4.9 [facility] Comment on above: Order Comment: Carlos A villeda Type: BLOOD SPECIMENOrdering Facility: [facility] Address: [address] [place] [address] Performed By: #### L [id number], 68575-9, 96345-7 ####RUTHVEN LABORATORYCLIA [id number] [place] [address] [place] ALP [Catalytic activity/Vol] 50 U/L Normal 34-123 [facility] Comment on above: Order Comment: Carlos A villeda Type: BLOOD SPECIMENOrdering Facility: [facility] Address: [address] [place] [address] Performed By: #### L [id number], , ####URBAN LABORATORYCLIA [id number] [place] [address] [place] ALT [Catalytic activity/Vol] 9 U/L Normal 7-38 [facility] Comment on above: Order Comment: Speci men Type: BLOOD SPECIMENOrdering Facility: [facility] Address: [address] [place] [address] Performed By: #### L [id number], , ####URBAN LABORATORYCLIA [id number] [place] [address] [place] Anion gap [Moles/Vol] 8 mmol/L Low 9-18 [facility] Comment on above: Order Comment: Speci men Type: BLOOD SPECIMENOrdering Facility: [facility] Address: [address] [place] [address] Performed By: #### L [id number], , ####URBAN LABORATORYCLIA [id number] [place] [address] [place] AST [Catalytic activity/Vol] 19 U/L Normal 13-35 [facility] Comment on above: Order Comment: Speci men Type: BLOOD SPECIMENOrdering Facility: [facility] Address: [address] [place] [address] Performed By: #### L [id number], , ####URBAN LABORATORYCLIA [id number] [place] [id number] [place] Bilirubin [Mass/Vol] 0.4 mg/dL Normal 0.2-1.3 [facility] Comment on above: Order Comment: Speci men Type: BLOOD SPECIMENOrdering Facility: [facility] Address: [address] [place] [address] Performed By: #### L [id number], , ####URBAN LABORATORYCLIA [id number] [place] [address] [place] Calcium [Mass/Vol] 8.8 mg/dL Normal 8.5-10.2 [facility] Comment on above: Order Comment: Speci men Type: BLOOD SPECIMENOrdering Facility: [facility] Address: [address] [place] [address] Performed By: #### L [id number], , ####URBAN LABORATORYCLIA [id number] [place] [address] [place] Chloride [Moles/Vol] 108 mmol/L High 97-105 [facility] Comment on above: Order Comment: Speci men Type: BLOOD SPECIMENOrdering Facility: [facility] Address: [address] [place] [address] Performed By: #### L [id number], , ####URBAN LABORATORYCLIA [id number] [place] [address] [place] CO2 [Moles/Vol] 26 mmol/L Normal 22-30 [facility] Comment on above: Order Comment: Speci men Type: BLOOD SPECIMENOrdering Facility: [facility] Address: [address] [place] [address] Performed By: #### L [id number], , ####URBAN LABORATORYCLIA [id number] [place] [address] [place] Creatinine [Mass/Vol] 0.76 mg/dL Normal 0.58-0.96 [facility] Comment on above: Order Comment: Speci men Type: BLOOD SPECIMENOrdering Facility: [facility] Address: [address] [place] [address] Performed By: #### L [id number], , ####URBAN LABORATORYCLIA [id number] [place] [address] [facility] [place] Creatinine and Glomerular filtration rate.predicted panel (S/P/Bld) 108 mL/min/1.73m??? Normal >=60 [facility] Comment on above: Order Comment: Speci men Type: BLOOD SPECIMENOrdering Facility: [facility] Address: [address] [place] [address] Result Comment: Vickie mated Glomerular Filtration Rate [...] reflect actual GFR. Performed By: #### L [id number], 43049-7, ####RUTHVEN LABORATORYCLIA [id number] [place] [address] [place] Glucose [Mass/Vol] 80 mg/dL Normal 74-99 [facility] Comment on above: Order Comment: Carlos A villeda Type: BLOOD SPECIMENOrdering Facility: [facility] Address: [address] [place] [address] Result Comment: The [place] Diabetes Association (ADA) provides guidance for cutoff [...] Standards of Medical Care in Diabetes 2016, [place] Diabetes Association. Diabetes Care. 2016.39(Suppl 1). Performed By: #### L [id number], 98326-9, ####RUTHVEN LABORATORYCLIA [id number] [place] [address] [place] Potassium [Moles/Vol] 3.7 mmol/L Normal 3.7-5.1 [facility] Comment on above: Order Comment: Carlos A villeda Type: BLOOD SPECIMENOrdering Facility: [facility] Address: [address] [place] [address] Performed By: #### L [id number], 18439-0, ####RUTHVEN LABORATORYCLIA [id number] [address] Protein [Mass/Vol] 6.8 g/dL Normal 6.3-8.0 [facility] Comment on above: Order Comment: Speci men Type: BLOOD SPECIMENOrdering Facility: [facility] Address: [address] [place] [address] Performed By: #### L [id number], , ####URBAN LABORATORYCLIA [id number] [address] Sodium [Moles/Vol] 142 mmol/L Normal 136-144 [facility] Comment on above: Order Comment: Speci men Type: BLOOD SPECIMENOrdering Facility: [facility] Address: [address] [place] [address] Performed By: #### L [id number], , ####URBAN LABORATORYCLIA [id number] [address] Urea nitrogen [Mass/Vol] 12 mg/dL Normal 7-21 [facility] Comment on above: Order Comment: Speci men Type: BLOOD SPECIMENOrdering Facility: [facility] Address: [address] [place] [address] Performed By: #### L [id number], , ####URBAN LABORATORYCLIA [id number] [address] D dimer FEU PPP-mCncon 05-16 Fibrin D-dimer FEU (PPP) [Mass/Vol] 300 ng/mL FEU Normal <500 [facility] Comment on above: Order Comment: Speci men Type: BLOOD SPECIMENOrdering Facility: [facility] Address: [address] [place] [address] Performed By: #### 4 8065-7 ####URBAN LABORATORYCLIA [id number] [address] ECG COMPLETEon 05-16-2023 ECG COMPLETE Ventricular Rate : 9 5 BPM Atrial Rate : 95 BPM P-R Interval : 146 ms QRS Duration : 100 ms Q-T Interval : 368 ms QTC Calculation(Bazett) : 462 ms Calculated P [place] : 73 degrees Calculated R [place] : 88 degrees Calculated T [place] : 64 degrees NORMAL SINUS RHYTHM INCOMPLETE RIGHT BUNDLE BRANCH BLOCK BORDERLINE ECG no stemi Confirmed by Steve SCOTT, MAGDA ([id number]), desk editor ASHWINI JACKSON (1940) on 05/17/2023 8:51:33 AM NAME : HANNAH HENDRICKS PID : [id number] : 1990 Gender : Female Race : ORD : [id number] Procedure Date : May 16 2023 15:03:41 Edit Date : May 17 2023 08:51:39 Diagnosis: NORMAL SINUS RHYTHM INCOMPLETE RIGHT BUNDLE BRANCH BLOCK BORDERLINE ECG no stemi Confirmed by Steve SCOTT, MAGDA ([id number]), desk editor ASHWINI JACKSON (1940) on 05/17/2023 8:51:33 AM Test Reason : Chest Pain Location : 1 : ER ED Overread By : Steve SCOTT ERIKA Edited By : ASHWINI JACKSON Referred By : , Acquired by : brown [facility] ED NOTEon 05-16-2023 ED NOTE HNO ID: [id number] Author: ESTEBAN MCFADDEN RN Service: Nursing Author Type: Registered Nurse Type: ED Notes Filed: 05/16/2023 18:59 Note Text: Pt discharged to home in stable condition. No noted distress - respirations equal and unlabored. AVS and medications reviewed. Pt verbalized understanding and importance of follow up care. No questions for this RN at this time. [facility] ED NOTE HNO ID: [id number] Author: DHARMESH DAVIS RN Service: ? Author [...] AANDOx3. Resolution of symptoms at this time. [facility] ED NOTE HNO ID: [id number] Author: TREBISKY, ERIC, RN Service: ? Author Type: Registered Nurse Type: ED Notes Filed: 05/16/2023 14:54 Note Text: Bed: ED-02 Expected date: Expected time: Means of arrival: [facility] Fire/EMS Comments: [facility] ED PROV NOTEon 05-16-2023 ED PROV NOTE HNO ID: [id number] Author: MAGDA SCOTT MD Service: ? Author Type: Physician Type: ED Provider Notes Filed: 05/16/2023 18:51 Note Text: ED Provider Note Patient Name: Hannah Hendricks : 1990 SERVICE DATE: 05/16/23 History Patient presents with: Dizziness: [place] flushed, dizzy, while using the restroom. Had [...] Abnormal; Notable for the following components: Abs Sherman 0.97 (*) <0.87 k/uL Abs Eosin 0.61 (*) <0.46 k/uL All other components within normal limits HCG QUAL BLD - Normal HIGH SENSITIVITY TROPONIN T (INITIAL) MAGNESIUM BLD Procedures ED Course / Clinical Impression Clinical Impressions as of 05/16/23 1824 Sinus tach (more content not included)... Normal [facility] HCG QUAL BLDon 05-16-2023 HCG, QUALITATIVE Negative Normal Negative [facility] Comment on above: Order Comment: Carlos A villeda Type: BLOOD SPECIMENOrdering Facility: [facility] Address: [address] [place] [address] Performed By: #### H CG ####URBAN LABORATORYCLIA [id number] [place] [id number] [facility] HIGH SENSITIVITY TROPONIN T (INITIAL)on 05-16-2023 Troponin T.cardiac High sensitivity method [Mass/Vol] <6 Normal <12 [facility] Comment on above: Order Comment: Carlos A villeda Type: BLOOD SPECIMENOrdering Facility: [facility] Address: [address] [place] [address] Result Comment: When assessing risk for acute [...] 30 day MACE. Performed By: #### L SV0059, 09707-2, 69630-7 ####URBAN LABORATORYCLIA [id number] [place] [id number] [facility] HIGH SENSITIVITY TROPONIN T (SECOND)on 05-16-2023 Troponin T.cardiac High sensitivity method [Mass/Vol] <6 Normal <12 [facility] Comment on above: Order Comment: Carlos A villeda Type: BLOOD SPECIMENOrdering Facility: [facility] Address: [address] [place] [id number] Result Comment: When assessing risk for acute [...] 30 day MACE. Performed By: #### L [id number] ####RUTHVEN LABORATORYCLIA [id number] [place] [address] [facility] Magnesium SerPl-ncon 05-16 Magnesium [Mass/Vol] 2.0 mg/dL Normal 1.7-2.3 [facility] Comment on above: Order Comment: Speci men Type: BLOOD SPECIMENOrdering Facility: [facility] Address: [address] [place] [address] Performed By: #### L [id number], 10802-3, 77356-2 ####RUTHVEN LABORATORYCLIA [id number] [place] [id number] [facility] MRI LUMBAR SPINE WO [...] and assume there are 5 lumbar-type vertebrae. Family Psychologist: PSCB Transcribe Date/Time: Mar 02 2023 2:18P Dictated by : ELLYN BERRY MD This examination was interpreted and the report reviewed and electronically signed by: ELLYN BERRY MD on Mar 02 2023 2:27PM EST [id number] N [facility] CNOVon 02-06-2023 CNOV Office Visit (NSFRVW ) HANNAH HENDRICKS ([id number]) 1990 F Date Time Provider Department 02/06/23 [...] Frequency: Continuous Continuous Intervention/Comfort measure: Medication;Reposition ;Relaxation;Education ;Exercise;Heat;Dry Wall Applicator y;Massage;Pillow support;Positioning;T herapeutic techniques-CPRP -- Pain Radiation: [...] Past Histories independently gathered by the clinical manager client support and the remaining scribed note accurately describes my personal service to the patient (more content not included)... [facility] 01-30-2023 [facility] Telephone (NIQ) HANNAH HENDRICKS ([id number]) 1990 F Date Time Provider Department 01/30/23 [...] Fully Assessed Reason for Visit: Patient Question [1367] Prescriptions as of 04/23/2023 - methocarbamol (ROBAXIN-750) [...] by BRITT ACEVEDO on 04/23/23 [facility] CNTHERAPYon 12-31-2022 CNTHERAPY OT/PT/Speech Visit (PTMDRG) HANNAH HENDRICKS ([id number]) 1990 F Date Time Provider Department 12/31/22 6:00 PM NEHEMIAS SUAREZ PTMG Date Time Provider Department Center 12/31/2022 6:00 PM [id number], SCOTT PTMG [facility] Reason for Visit: PT Discharge [752] [...] route one time only. Placed September 2020 [facility] CNTHERAPYon 11-28-2022 CNTHERAPY OT/PT/Speech Visit (PTMDRG) HANNAH HENDRICKS ([id number]) 1990 F Date Time Provider Department 11/28/22 6:00 PM NEHEMIAS SUAREZ Date Time Provider Department Center 11/28/2022 6:00 PM [id number], SCOTT PTMDRG [facility] Reason for Visit: PT Progress Note [3896] Primary Visit Diagnosis:Chronic bilateral low back pain [...] route one time only. Placed September 2020 [facility] CNTHERAPYon 10-24-2022 CNTHERAPY OT/PT/Speech Visit (PTMDRG) HANNAH HENDRICKS ([id number]) 1990 F Date Time Provider Department 10/24/22 6:00 PM NEHEMIAS SUAREZ PTMDRG Date Time Provider Department Center 10/24/2022 6:00 PM [id number], SCOTT PTMDRG [facility] Reason for Visit: PT Progress Note [...] route one time only. Placed September 2020 [facility] CNTHERAPYon 09-12-2022 CNTHERAPY OT/PT/Speech Visit (PTMDRG) HANNAH HENDRICKS ([id number]) 1990 F Date Time Provider Department 09/12/22 5:15 PM NEHEMIAS SUAREZ PTMDRG Date Time Provider Department [place] 09/12/2022 5:15 PM [id number], SCOTT PTMDRG [facility] Reason for Visit: PT Progress Note [3876] Primary Visit Diagnosis:Chronic bilateral low back pain [...] route one time only. Placed September 2020 [facility] CNTHERAPYon 08-29-2022 CNTHERAPY OT/PT/Speech Visit (PTMDRG) HANNAH HENDRICKS ([id number]) 1990 F Date Time Provider Department 08/29/22 5:45 PM JULIANO URIASG Date Time Provider Department [place] 08/29/2022 5:45 PM [id number], SUSAN PTMG [facility] Reason for Visit: Physical Therapy [503] [...] one time only. Placed September 2020 Normal [facility] CNTHERAPYon 08-15-2022 CNTHERAPY OT/PT/Speech Visit (PTMDRG) HANNAH HENDRICKS ([id number]) 1990 F Date Time Provider Department 08/15/22 6:00 PM NEHEMIAS SUAREZ PTMDRG Date Time Provider Department Center 08/15/2022 6:00 PM [id number], SCOTT PTMDRG [facility] Reason for Visit: PT Progress Note [...] route one time only. Placed September 2020 [facility] CNTHERAPYon 07-16-2022 CNTHERAPY OT/PT/Speech Visit (PTMDRG) HANNAH HENDRICKS ([id number]) 1990 F Date Time Provider Department 07/16/22 12:30 PM NEHEMIAS SUAREZ PTMG Date Time Provider Department Center 07/16/2022 12:30 PM [id number], SCOTT PTMDRG [facility] Reason for Visit: PT Progress Note [...] route one time only. Placed September 2020 [facility] CNTHERAPYon 07-09-2022 CNTHERAPY OT/PT/Speech Visit (PTMDRG) HANNAH HENDRICKS ([id number]) 1990 F Date Time Provider Department 07/09/22 12:30 PM NEHEMIAS SUAREZ PTMG Date Time Provider Department Center 07/09/2022 12:30 PM [id number], SCOTT PTMG [facility] Reason for Visit: Physical Therapy [503] [...] route one time only. Placed September 2020 [facility] CNTHERAPYon 07-02-2022 CNTHERAPY OT/PT/Speech Visit (PTMDRG) HANNAH HENDRICKS ([id number]) 1990 F Date Time Provider Department 3/20/23 1:45 PM JULIANO URIAS PTMDRG Date Time Provider Department Center 07/02/2022 1:45 PM [id number], SUSAN PTMDRG [facility] Reason for Visit: Physical Therapy [503] [...] route one time only. Placed September 2020 [facility] CNTHERAPYon 06-25-2022 CNTHERAPY OT/PT/Speech Visit (PTMDRG) HANNAH HENDRICKS ([id number]) 1990 F Date Time Provider Department 06/25/22 4:30 PM NEHEMIAS SUAREZ PTMDRG Date Time Provider Department [place] 06/25/2022 4:30 PM [id number], SCOTT PTMDRG [facility] Reason for Visit: Physical Therapy [503] [...] one time only. Placed September 2020 Normal [facility] CNTHERAPYon 06-18-2022 CNTHERAPY OT/PT/Speech Visit (PTMDRG) HANNAH HENDRICKS ([id number]) 1990 F Date Time Provider Department 06/18/22 12:30 PM NEHEMIAS SUAREZ PTMDRG Date Time Provider Department Center 06/18/2022 12:30 PM [id number], SCOTT PTMDRG [facility] Reason for Visit: PT Progress Note [...] one time only. Placed September 2020 Normal [facility] CNTHERAPYon 06-11-2022 CNTHERAPY OT/PT/Speech Visit (PTMDRG) HANNAH HENDRICKS ([id number]) 1990 F Date Time Provider Department 06/11/22 12:15 PM JULIANO URIAS PTMG Date Time Provider Department [place] 06/11/2022 12:15 PM [id number], SUSAN PTMDRG [facility] Reason for Visit: Physical Therapy [503] [...] route one time only. Placed September 2020 [facility] CNTHERAPYon 06-04-2022 CNTHERAPY OT/PT/Speech Visit (PTMDRG) HANNAH HENDRICKS ([id number]) 1990 F Date Time Provider Department 06/04/22 12:15 PM JULIANO URIAS PTMG Date Time Provider Department [place] 06/04/2022 12:15 PM [id number], SUSAN PTMDRG [facility] Reason for Visit: Physical Therapy [503] [...] route one time only. Placed September 2020 [facility] CNTHERAPYon 05-30-2022 CNTHERAPY OT/PT/Speech Visit (PTMDRG) HANNAH HENDRICKS ([id number]) 1990 F Date Time Provider Department 05/30/22 12:30 PM NEHEMIAS SUAREZ PTMG Date Time Provider Department Center 05/30/2022 12:30 PM [id number], SCOTT PTMG [facility] Reason for Visit: Physical Therapy [503] [...] route one time only. Placed September 2020 [facility] CNTHERAPYon 05-21-2022 CNTHERAPY OT/PT/Speech Visit (PTMDRG) HANNAH HENDRICKS ([id number]) 1990 F Date Time Provider Department 05/21/22 1:15 PM NEHEMIAS SUAREZ PTMKIYA Date Time Provider Department Center 05/21/2022 1:15 PM [id number], SCOTT PTMKIYA [facility] Reason for Visit: PT Progress Note [1536] Primary Visit Diagnosis:Chronic bilateral low back pain [...] one time only. Placed September 2020 Normal [facility] 04-04-2022 CNOV Office Visit (NSFRVW ) HANNAH HENDRICKS ([id number]) 1990 F Date Time Provider Department 04/04/22 [...] Order(s):CONSULT TO PHYSICAL THERAPY [9032] Order #: [id number]: 1 FUTURE Prescriptions as of 04/06/2022 - [...] for Encounter Date Provider Department Center 04/04/2022 [id number], GHAI (more content not included)... [facility] ANES POSTPROC EVALon 022 ANES POSTPROC EVAL HNO ID: [id number] Author: Lisette Tarango MD Service: Anesthesiology Author [...] March 20, 2022 TIME: 2:24 PM CSN: [id number] [facility] ANES PRE-OPon 03-20-2022 ANES PRE-OP HNO ID: [id number] Author: Mark Chavez MD Service: Anesthesiology Author Type: Anesthesiologist Type: Anesthesia Preprocedure Evaluation Filed: 03/20/2022 11:36 AM Note Text: ANESTHESIOLOGY DAY OF SURGERY NOTE : 1990 Procedure Information Date/Time: 03/20/22 1225 Procedure: LAMINECTOMY DISCECTOMY LUMBAR LEVEL 1 (Right: Spine Lumbar) - Redo right L4-5 microdiscectomy Location: [place] [address] / OR Surgeons: Konstantin Kirkland MD Estimated [...] and consent discussed: yes. Patient / Responsible Democrat agrees to proceed: yes Patient / Surrogate [...] March 20, 2022 TIME: 11:36 AM CSN: [id number] [facility] BRIEF OP NOTon 03-20-2022 BRIEF OP NOT HNO ID: [id number] Author: Konstantin Kirkland MD Service: Neurosurgery Author Type: Physician Type: Brief Op Note Filed: 03/20/2022 1:20 PM Note Text: BRIEF OPERATIVE / PROCEDURE NOTE LOG ID: [id number] SURGERY/PROCEDURE DATE: 03/20/2022 INCISION/PROCEDURE START TIME: 12:29 PM INCISION CLOSE/PROCEDURE END TIME: 1:14 PM SURGEON(S)/PROCEDURAL IST(S) AND AIRCRAFT INSPECTION RECORD CLERK(S): Surgeon(s) and Role: * Konstantin Kirkland MD [...] DATE: March 20, 2022 TIME: 1:06 PM [facility] HCG Preg Ur Qlon 03-20-2022 HCG ( test) Ql (U) Negative Normal Negative [facility] Comment on above: Order Comment: Speci men Type: URINE SPECIMENOrdering Facility: [facility] Address: [address] [place] [id number] Result Comment: This test is intended to aid in the early detection of . Very dilute urine samples, as indicated by a low specific gravity, may not contain employee's representative levels of hCG. This test detects [...] for . Performed By: #### 2 106-3 ####ISLAM LABORATORYIA [id number] [address] NURSING PROGon 03-20-2022 NURSING PROG HNO ID: [id number] Author: Ryanne Tracy RN Service: ? Author Type: Registered Nurse Type: Nursing Progress Note Filed: 03/20/2022 1:42 PM Note Text: Discharge Status: Patient is Awakening, and is no airway issues. Skin condition was WNL. Transported to recovery room via cart with siderails up. Accompanied by pole setter and surgeon. [facility] NURSING PROG HNO ID: [id number] Author: Ryanne Tracy RN Service: ? Author [...] of exposure, and providing warm irrigation fluid. [facility] OPERATIVE NOon 03-20-2022 OPERATIVE NO HNO ID: [id number] Author: Konstantin Kirkland MD Service: Neurosurgery Author Type: Physician Type: Operative Report Filed: 03/20/2022 1:20 PM Note Text: OPERATIVE/PROCEDURE REPORT LOG ID: [id number] SURGERY/PROCEDURE DATE: 03/20/2022 INCISION/PROCEDURE START TIME: 12:29 PM INCISION CLOSE/PROCEDURE END TIME: 1:14 PM SURGEON(S)/PROCEDURAL IST(S) AND AIRCRAFT INSPECTION RECORD CLERK(S): Surgeon(s) and Role: * Konstantin Kirkland MD [...] DATE: March 20, 2022 TIME: 1:12 PM [facility] XR VERIFY LEVEL B-XTNIG-BTav 03-20-2022 XR VERIFY LEVEL L-SPINE-NB * * [...] phone and Skype during the surgical procedure. Family Psychologist: [facility] Transcribe Date/Time: Mar 20 2022 1:14P Dictated by : SKY SCHAWRTZ MD This examination was interpreted and the report reviewed and electronically signed by: SKY SCHWARTZ MD on Mar 20 2022 1:16PM EST [id number] [facility] Basic metabolic 2000 panelon 03-19-2022 Anion gap [Moles/Vol] 5 mmol/L Low 9-18 [facility] Comment on above: Order Comment: Speci men Type: BLOOD SPECIMENOrdering Facility: [facility] Address: [address] Performed By: #### 2 4321-2 ####ISLAM LABORATORYCLIA [id number] [address] [place], [place] [id number] [place] Calcium [Mass/Vol] 9.3 mg/dL Normal 8.5-10.2 [facility] Comment on above: Order Comment: Speci men Type: BLOOD SPECIMENOrdering Facility: [facility] Address: [address] Performed By: #### 2 4321-2 ####ISLAM LABORATORYCLIA [id number] [address] [place], [place] [id number] [place] Chloride [Moles/Vol] 103 mmol/L Normal 97-105 [facility] Comment on above: Order Comment: Speci men Type: BLOOD SPECIMENOrdering Facility: [facility] Address: [address] [place], [place] [address] Performed By: #### 2 4321-2 ####ISLAM LABORATORYCLIA [id number] [place] [address] [place] CO2 [Moles/Vol] 29 mmol/L Normal 22-30 [facility] Comment on above: Order Comment: Speci men Type: BLOOD SPECIMENOrdering Facility: [facility] Address: [address] [place], [place] [address] Performed By: #### 2 4321-2 ####ISLAM LABORATORYCLIA [id number] [place] [address] [place] Creatinine [Mass/Vol] 0.68 mg/dL Normal 0.58-0.96 [facility] Comment on above: Order Comment: Speci men Type: BLOOD SPECIMENOrdering Facility: [facility] Address: [address] Performed By: #### 2 4321-2 ####ISLAM LABORATORYCLIA [id number] [place] [address] [place] ESTIMATED GLOMERULAR FILTRATION RATE 120 mL/min/1.73m??? Normal >=60 [facility] Comment on above: Order Comment: Carlos A villeda Type: BLOOD SPECIMENOrdering Facility: [facility] Address: [address] [place] [address] Result Comment: Vickie mated Glomerular Filtration Rate [...] actual GFR. Performed By: #### 2 4321-2 ####ISLAM LABORATORYCLIA [id number] [place] [address] [place] Glucose [Mass/Vol] 90 mg/dL Normal 74-99 [facility] Comment on above: Order Comment: Carlos A villeda Type: BLOOD SPECIMENOrdering Facility: [facility] Address: [address] [place] [address] Result Comment: The [place] Diabetes Association (ADA) provides guidance for cutoff [...] Standards of Medical Care in Diabetes 2016, [place] Diabetes Association. Diabetes Care. 2016.39(Suppl 1). Performed By: #### 2 4321-2 ####ISLAM LABORATORYCLIA [id number] [place] [address] [place] Potassium [Moles/Vol] 4.1 mmol/L Normal 3.7-5.1 [facility] Comment on above: Order Comment: Speci men Type: BLOOD SPECIMENOrdering Facility: [facility] Address: [address] [place] [address] Performed By: #### 2 4321-2 ####ISLAM LABORATORYCLIA [id number] [address] [place] Sodium [Moles/Vol] 137 mmol/L Normal 136-144 [facility] Comment on above: Order Comment: Speci men Type: BLOOD SPECIMENOrdering Facility: [facility] Address: [address] [place] [address] Performed By: #### 2 4321-2 ####ISLAM LABORATORYCLIA [id number] [place] [address] [place] Urea nitrogen [Mass/Vol] 17 mg/dL Normal 7-21 [facility] Comment on above: Order Comment: Speci men Type: BLOOD SPECIMENOrdering Facility: [facility] Address: [address] [place] [address] Performed By: #### 2 4321-2 ####ISLAM LABORATORYCLIA [id number] [address] [place] Anion gap [Moles/Vol] 5 mmol/L Low 9 - 18 mmol/L [facility] Calcium [Mass/Vol] 9.3 mg/dL 8.5 - 10. 2 mg/dL [facility] Chloride [Moles/Vol] 103 mmol/L 97 - 10 5 mmol/L [facility] CO2 [Moles/Vol] 29 mmol/L 22 - 30 mmol/L [facility] Creatinine [Mass/Vol] 0.68 mg/dL 0.58 - 0.96 mg/dL [facility] Estimated Glomerular Filtration Rate 120 mL/min/1.73m >=60 mL/min/1.73m [facility] Glucose [Mass/Vol] 90 mg/dL 74 - 99 mg/dL [facility] Potassium [Moles/Vol] 4.1 mmol/L 3.7 - 5.1 mmol/L [facility] Sodium [Moles/Vol] 137 mmol/L 136 - 144 mmol/L [facility] Urea nitrogen [Mass/Vol] 17 mg/dL 7 - 21 mg/d L [facility] CBC W Auto Differential pane l (Bld)on 03-19-2022 Basophils (Bld) [#/Vol] 0.04 10*3/uL Normal <0.11 [facility] Comment on above: Order Comment: Speci men Type: BLOOD SPECIMENOrdering Facility: [facility] Address: [address] [place] [address] Performed By: #### 5 7021-8 ####ISLAM LABORATORYCLIA [id number] [address] [place] [address] [place] Basophils/100 WBC (Bld) 0.6 % Normal [facility] Comment on above: Order Comment: Speci men Type: BLOOD SPECIMENOrdering Facility: [facility] Address: [address] [place] [address] Performed By: #### 5 7021-8 ####ISLAM LABORATORYCLIA [id number] [address] [place] [address] [place] Differential cell count method Nom (Bld) Auto Normal [facility] Comment on above: Order Comment: Speci men Type: BLOOD SPECIMENOrdering Facility: [facility] Address: [address] [place] [address] Performed By: #### 5 7021-8 ####ISLAM LABORATORYCLIA [id number] [address] [place] [address] [place] Eosinophils (Bld) [#/Vol] 0.73 10*3/uL High <0.46 [facility] Comment on above: Order Comment: Speci men Type: BLOOD SPECIMENOrdering Facility: [facility] Address: [address] [place] [address] Performed By: #### 5 7021-8 ####ISLAM LABORATORYCLIA [id number] [address] [place] [address] [place] Eosinophils/100 WBC (Bld) 10.0 % Normal [facility] Comment on above: Order Comment: Speci men Type: BLOOD SPECIMENOrdering Facility: [facility] Address: [address] [place] [address] Performed By: #### 5 7021-8 ####ISLAM LABORATORYCLIA [id number] [address] [place] Erythrocyte distribution width (RBC) [Ratio] 11.8 % Normal 11.5-15.0 [facility] Comment on above: Order Comment: Speci men Type: BLOOD SPECIMENOrdering Facility: [facility] Address: [address] [place] [address] Performed By: #### 5 7021-8 ####ISLAM LABORATORYCLIA [id number] [address] [place] Hematocrit (Bld) [Volume fraction] 41.7 % Normal 36.0-46.0 [facility] Comment on above: Order Comment: Speci men Type: BLOOD SPECIMENOrdering Facility: [facility] Address: [address] [place] [address] Performed By: #### 5 7021-8 ####ISLAM LABORATORYCLIA [id number] [place] [address] [place] Hemoglobin (Bld) [Mass/Vol] 13.5 g/dL Normal 11.5-15.5 [facility] Comment on above: Order Comment: Speci men Type: BLOOD SPECIMENOrdering Facility: [facility] Address: [address] [place] [address] Performed By: #### 5 7021-8 ####ISLAM LABORATORYCLIA [id number] [place] [address] [place] Immature granulocytes (Bld) [#/Vol] 10*3/uL Normal <0.10 [facility] Comment on above: Order Comment: Speci men Type: BLOOD SPECIMENOrdering Facility: [facility] Address: [address] [place], [place] [address] Performed By: #### 5 7021-8 ####ISLAM LABORATORYCLIA [id number] [address] [place], [place] [address] [place] Immature granulocytes/100 WBC (Bld) 0.1 % Normal [facility] Comment on above: Order Comment: Speci men Type: BLOOD SPECIMENOrdering Facility: [facility] Address: [address] [place] [address] Performed By: #### 5 7021-8 ####ISLAM LABORATORYCLIA [id number] [address] [place] [address] [place] Lymphocytes (Bld) [#/Vol] 2.89 10*3/uL Normal 1.00-4.00 [facility] Comment on above: Order Comment: Speci men Type: BLOOD SPECIMENOrdering Facility: [facility] Address: [address] [place] [address] Performed By: #### 5 7021-8 ####ISLAM LABORATORYCLIA [id number] [place] [address] [place] Lymphocytes/100 WBC (Bld) 39.8 % Normal [facility] Comment on above: Order Comment: Speci men Type: BLOOD SPECIMENOrdering Facility: [facility] Address: [address] [place] [address] Performed By: #### 5 7021-8 ####ISLAM LABORATORYCLIA [id number] [address] [place], [place] [address] [place] MCH (RBC) [Entitic mass] 32.1 pg Normal 26.0-34.0 [facility] Comment on above: Order Comment: Speci men Type: BLOOD SPECIMENOrdering Facility: [facility] Address: [address] [place] [address] Performed By: #### 5 7021-8 ####ISLAM LABORATORYCLIA [id number] [address] [place], [place] [address] [place] MCHC (RBC) [Mass/Vol] 32.4 g/dL Normal 30.5-36.0 [facility] Comment on above: Order Comment: Speci men Type: BLOOD SPECIMENOrdering Facility: [facility] Address: [address] [place] [address] Performed By: #### 5 7021-8 ####ISLAM LABORATORYCLIA [id number] [address] [place] [address] [place] MCV (RBC) [Entitic vol] 99.3 fL Normal 80.0-100.0 L [facility] Comment on above: Order Comment: Speci men Type: BLOOD SPECIMENOrdering Facility: [facility] Address: [address] Performed By: #### 5 7021-8 ####ISLAM LABORATORYCLIA [id number] [place] [address] [place] Monocytes (Bld) [#/Vol] 0.64 10*3/uL Normal <0.87 [facility] Comment on above: Order Comment: Speci men Type: BLOOD SPECIMENOrdering Facility: [facility] Address: [address] [place] [address] Performed By: #### 5 7021-8 ####ISLAM LABORATORYCLIA [id number] [place] [address] [place] Monocytes/100 WBC (Bld) 8.8 % Normal [facility] Comment on above: Order Comment: Speci men Type: BLOOD SPECIMENOrdering Facility: [facility] Address: [address] Performed By: #### 5 7021-8 ####ISLAM LABORATORYCLIA [id number] [place] [address] [place] Neutrophils (Bld) [#/Vol] 2.96 10*3/uL Normal 1.45-7.50 [facility] Comment on above: Order Comment: Speci men Type: BLOOD SPECIMENOrdering Facility: [facility] Address: [address] [place], [place] [address] Performed By: #### 5 7021-8 ####ISLAM LABORATORYCLIA [id number] [address] [place], [place] [address] [facility] Neutrophils/100 WBC (Bld) 40.7 % Normal [facility] Comment on above: Order Comment: Speci men Type: BLOOD SPECIMENOrdering Facility: [facility] Address: [address] [place] [address] Performed By: #### 5 7021-8 ####ISLAM LABORATORYCLIA [id number] [address] [place] [address] [place] Nucleated RBC (Bld) [#/Vol] 10*3/uL Normal <0.01 [facility] Comment on above: Order Comment: Speci men Type: BLOOD SPECIMENOrdering Facility: [facility] Address: [address] [place] [address] Performed By: #### 5 7021-8 ####ISLAM LABORATORYCLIA [id number] [address] [place] Nucleated RBC/100 WBC (Bld) [Ratio] 0.0 /100 WBC Normal [facility] Comment on above: Order Comment: Speci men Type: BLOOD SPECIMENOrdering Facility: [facility] Address: [address] [place] [address] Performed By: #### 5 7021-8 ####ISLAM LABORATORYCLIA [id number] [place] [address] [place] Platelet mean volume (Bld) [Entitic vol] 9.3 fL Normal 9.0-12.7 [facility] Comment on above: Order Comment: Speci men Type: BLOOD SPECIMENOrdering Facility: [facility] Address: [address] [place], [place] [address] Performed By: #### 5 7021-8 ####ISLAM LABORATORYCLIA [id number] [place] [address] [facility] [place] Platelets (Bld) [#/Vol] 373 10*3/uL Normal 150-400 [facility] Comment on above: Order Comment: Speci men Type: BLOOD SPECIMENOrdering Facility: [facility] Address: [place] [address] Performed By: #### 5 7021-8 ####ISLAM LABORATORYCLIA [id number] [place] [address] [place] [facility] RBC (Bld) [#/Vol] 4.20 10*6/uL Normal 3.90-5.20 [facility] Comment on above: Order Comment: Speci men Type: BLOOD SPECIMENOrdering Facility: [facility] Address: [place] [address] Performed By: #### 5 7021-8 ####ISLAM LABORATORYCLIA [id number] [address] [place] [facility] WBC (Bld) [#/Vol] 7.27 10*3/uL Normal 3.70-11.00 [facility] Comment on above: Order Comment: Speci men Type: BLOOD SPECIMENOrdering Facility: [facility] Address: [place] [address] Performed By: #### 5 7021-8 ####ISLAM LABORATORYCLIA [id number] [address] [place] Basophils (Bld) [#/Vol] 0.04 10*3/uL <0.11 k/uL [facility] Basophils/100 WBC (Bld) 0.6 % [facility] Differential cell count method Nom (Bld) Auto [facility] Eosinophils (Bld) [#/Vol] 0.73 10*3/uL High <0.46 k/uL [facility] Eosinophils/100 WBC (Bld) 10.0 % [facility] Erythrocyte distribution width (RBC) [Ratio] 11.8 % 11.5 - 15.0 % [facility] Hematocrit (Bld) [Volume fraction] 41.7 % 36.0 - 46.0 % [facility] Hemoglobin (Bld) [Mass/Vol] 13.5 g/dL 11.5 - 15.5 g/dL [facility] Immature granulocytes (Bld) [#/Vol] <0.10 k/uL [facility] Immature granulocytes/100 WBC (Bld) 0.1 % [facility] Lymphocytes (Bld) [#/Vol] 2.89 10*3/uL 1.00 - 4.00 k/uL [facility] Lymphocytes/100 WBC (Bld) 39.8 % [facility] MCH (RBC) [Entitic mass] 32.1 pg 26.0 - 34.[address] [facility] MCHC (RBC) [Mass/Vol] 32.4 g/dL 30.5 - 36.0 g/dL [facility] MCV (RBC) [Entitic vol] 99.3 fL 80.0 - 100.[address] [facility] Monocytes (Bld) [#/Vol] 0.64 10*3/uL <0.87 k/uL [facility] Monocytes/100 WBC (Bld) 8.8 % [facility] Neutrophils (Bld) [#/Vol] 2.96 10*3/uL 1.45 - 7.50 k/uL [facility] Neutrophils/100 WBC (Bld) 40.7 % [facility] Nucleated RBC (Bld) [#/Vol] <0.01 k/uL [facility] Nucleated RBC/100 WBC (Bld) [Ratio] 0.0 /[address] [facility] Platelet mean volume (Bld) [Entitic vol] 9.3 fL 9.0 - 12.[address] [facility] Platelets (Bld) [#/Vol] 373 10*3/uL 150 - 400 k /uL [facility] RBC (Bld) [#/Vol] 4.20 10*6/uL 3.90 - 5.2 0 m/uL [facility] WBC (Bld) [#/Vol] 7.27 10*3/uL 3.70 - 11. 00 k/uL [facility] TYPE AND SCREEN,[address] [facility] HIstorical Ab Scr Status Negative [facility] Rh Nom (Bld) Positive [facility] ABO A Normal [facility] Comment on above: Order Comment: Speci men Type: BLOOD SPECIMEN [facility] Address: [address] [place] [phone] Performed By: #### T SCR30 #### [facility] CLIA [id number] [place] [address] HISTORICAL AB SCR STATUS Negative [facility] Comment on above: Order Comment: Speci men Type: BLOOD SPECIMEN [facility] Address: [address] [place] [address] Performed By: #### T SCR30 #### [facility] CLIA [id number] [address] [place] [address] Rh Nom (Bld) Positive [facility] Comment on above: Order Comment: Speci men Type: BLOOD SPECIMEN [facility] Address: [address] [place] [address] Performed By: #### T SCR30 #### [facility] [place] [id number] [address] [place] [address] CNPNon 03-16-2022 CNPN Telephone (NEADFV) HANNAH HENDRICKS ([id number]) 1990 F Date Time Provider Department 03/16/22 KONSTANTIN KIRKLAND NEBRUCEFV During your visit today, we recorded the following information about you: Karen [place] 03/16/2022 1:33 PM Signed Patient at [phone] is requesting a call back Re: MRI results. She is quite upset. Italia Ackerman RN 03/16/2022 2:10 PM Signed Will forward for review. Italia Ackerman RN 03/16/2022 2:[address] Kirkland spoke with patient. Will be having surgery on 03/20/22. Karen Long 03/16/2022 3:34 PM Signed Patient at [phone] is requesting a call back. She has [...] Encounter Status:Closed by ITALIA ACKERMAN on 03/16/22 [facility] MRI LUMBAR SPINE URSZULA Milligan 03-16-2022 [facility] Gallo 03-12-2022 YVON Telephone (NEBRUCEFV) HANNAH HENDRICKS ([id number]) 1990 F Date Time Provider Department 03/12/22 KONSTANTIN KIRKLAND During your visit today, we recorded the following information about you: Darlene Monge [facility] 03/12/2022 8:35 AM Signed Patients first day working and states she is in extreme pain, feels she cannot take it, the top of her right leg and her lower back is stiff, states pain is 7 out of 10. 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 Will forward for review. Radha Dickens [...] tabletRfl: 0 MRI LUMBAR SPINE WO IVCON [[id number]] Order #: [id number] FUTURE Prescriptions as of 03/12/2022 - methylPREDNISolone [...] Encounter Status:Closed by KELSY WATERMAN on 03/12/22 [facility] ANES POSTPROC EVALon 022 ANES POSTPROC EVAL HNO ID: [id number] Author: Lisette Tarango MD Service: Anesthesiology Author [...] December 19, 2021 TIME: 10:07 AM CSN: [id number] [facility] ANES PRE-OPon 12-19-2021 ANES PRE-OP HNO ID: [id number] Author: Viridiana Brower MD Service: Anesthesiology Author Type: Anesthesiologist Type: Anesthesia Preprocedure Evaluation Filed: 12/19/2021 7:14 AM Note Text: ANESTHESIOLOGY DAY OF SURGERY NOTE : 1990 Procedure Information Date/Time: 12/19/21729 Procedure: LAMINECTOMY DISCECTOMY LUMBAR LEVEL 1 (Right: Spine Lumbar) - Right L4-5 microdiscectomy Location: [place] [address] / OR Surgeons: Konstantin Kirkland MD Estimated [...] and consent discussed: yes. Patient / Responsible Democrat agrees to proceed: yes Patient / Surrogate [...] December 19, 2021 TIME: 7:14 AM CSN: [id number] [facility] BRIEF OP NOTon 12-19-2021 BRIEF OP NOT HNO ID: [id number] Author: Demetrice Orantes MD Service: Neurosurgery Author Type: Resident Type: Brief Op Note Filed: 12/19/2021 9:14 AM Note Text: BRIEF OPERATIVE / PROCEDURE NOTE LOG ID: [id number] SURGERY/PROCEDURE DATE: 12/19/2021 INCISION/PROCEDURE START TIME: 8:05 AM INCISION CLOSE/PROCEDURE END TIME: 9:06 AM SURGEON(S)/PROCEDURAL IST(S) AND AIRCRAFT INSPECTION RECORD CLERK(S): Surgeon(s) and Role: * Konstantin Kirkland MD [...] DATE: December 19, 2021 TIME: 8:49 AM [facility] HCG Preg Ur Qlon 12-19-2021 HCG ( test) Ql (U) Negative Normal Negative [facility] Comment on above: Order Comment: Speci men Type: URINE SPECIMENOrdering Facility: [facility] Address: [address] [place], [place] [address] Result Comment: This test is intended to aid in the early detection of . Very dilute urine samples, as indicated by a low specific gravity, may not contain employee's representative levels of hCG. This test detects [...] for . Performed By: #### 2 106-3 ####ISLAM LABORATORYCLIA [id number] [address] NURSING PROGon 12-19-2021 NURSING PROG HNO ID: [id number] Author: Ryanne Tracy RN Service: ? Author Type: Registered Nurse Type: Nursing Progress Note Filed: 12/19/2021 9:18 AM Note Text: Discharge Status: Patient is Drowsy, and is no airway issues. Skin condition was WNL. Transported to recovery room via cart with siderails up. Accompanied by pole setter and surgeon. [facility] NURSING PROG HNO ID: [id number] Author: Ryanne Tracy RN Service: ? Author [...] of exposure, and providing warm irrigation fluid. [facility] OPERATIVE NOon 12-19-2021 OPERATIVE NO HNO ID: [id number] Author: Konstantin Kirkland MD Service: Neurosurgery Author Type: Physician Type: Operative Report Filed: 12/19/2021 11:55 AM Note Text: OPERATIVE/PROCEDURE REPORT LOG ID: [id number] SURGERY/PROCEDURE DATE: 12/19/2021 INCISION/PROCEDURE START TIME: 8:05 AM INCISION CLOSE/PROCEDURE END TIME: 9:06 AM SURGEON(S)/PROCEDURAL IST(S) AND AIRCRAFT INSPECTION RECORD CLERK(S): Surgeon(s) and Role: * Konstantin Kirkland MD [...] DATE: December 19, 2021 TIME: 8:54 AM [facility] XR LUMBAR SPECIFY 1Von 12-19 XR LUMBAR SPECIFY 1V * * *Final Report* * * DATE OF EXAM: Dec 19 2021 8:01AM [facility] [place] XR LUMBAR SPECIFY 1V / [...] Variants: None. IMPRESSION: Localization for surgical purposes Family Psychologist: PSC[facility] Transcribe Date/Time: Dec 19 2021 8:06A Dictated by : HAYDE RONDON MD This examination was interpreted and the report reviewed and electronically signed by: HAYDE RONDON MD on Dec 19 2021 8:07AM EST [id number] [facility] XR VERIFY LEVEL C-RMNEC-IMsm 12-19-2021 XR VERIFY LEVEL L-SPINE-NB * * *Final Report* * * DATE OF EXAM: Dec 19 2021 8:16AM [facility] 5642 - XR VERIFY LEVEL L-SPINE-NB / PROCEDURE REASON: Lumbar disc herniation * * * * Physician Interpretation * * * * [id number] TECHNIQUE: Single lateral image of the lumbar [...] on 12/19/2021 8:22 AM via verbal communication. Family Psychologist: [facility] Transcribe Date/Time: Dec 19 2021 8:19A Dictated by : HAYDE RONDON MD This examination was interpreted and the report reviewed and electronically signed by: HAYDE RONDON MD on Dec 19 2021 8:22AM EST [id number] [facility] Basic metabolic 2000 panelon 12-06-2021 Anion gap [Moles/Vol] 9 mmol/L 9 - 18 mmol/L [facility] Calcium [Mass/Vol] 9.9 mg/dL 8.5 - 10. 2 mg/dL [facility] Chloride [Moles/Vol] 103 mmol/L 97 - 10 5 mmol/L [facility] CO2 [Moles/Vol] 28 mmol/L 22 - 30 mmol/L [facility] Creatinine [Mass/Vol] 0.72 mg/dL 0.58 - 0.96 mg/dL [facility] Estimated Glomerular Filtration Rate 116 mL/min/1.73m >=60 mL/min/1.73m [facility] Glucose [Mass/Vol] 87 mg/dL 74 - 99 mg/dL [facility] Potassium [Moles/Vol] 4.3 mmol/L 3.7 - 5.1 mmol/L [facility] Sodium [Moles/Vol] 140 mmol/L 136 - 144 mmol/L [facility] Urea nitrogen [Mass/Vol] 11 mg/dL 7 - 21 mg/d L [facility] CBC W Auto Differential pane l (Bld)on 12-06-2021 Abs Immature Gran <0.10 k/uL [facility] Basophils (Bld) [#/Vol] 0.04 10*3/uL <0.11 k/uL [facility] Basophils/100 WBC (Bld) 0.7 % [facility] Differential cell count method Nom (Bld) Auto [facility] Eosinophils (Bld) [#/Vol] 0.60 10*3/uL High <0.46 k/uL [facility] Eosinophils/100 WBC (Bld) 10.7 % [facility] Erythrocyte distribution width (RBC) [Ratio] 11.2 % Low 11.5 - 15.0 % [facility] Hematocrit (Bld) [Volume fraction] 37.1 % 36.0 - 46.0 % [facility] Hemoglobin (Bld) [Mass/Vol] 12.7 g/dL 11.5 - 15.5 g/dL [facility] Immature Gran % 0.2 % [facility] Lymphocytes (Bld) [#/Vol] 2.07 10*3/uL 1.00 - 4.00 k/uL [facility] Lymphocytes/100 WBC (Bld) 37.0 % [facility] MCH (RBC) [Entitic mass] 33.3 pg 26.0 - 34.[address] [facility] MCHC (RBC) [Mass/Vol] 34.2 g/dL 30.5 - 36.0 g/dL [facility] MCV (RBC) [Entitic vol] 97.4 fL 80.0 - 100.[address] [facility] Monocytes (Bld) [#/Vol] 0.61 10*3/uL <0.87 k/uL [facility] Monocytes/100 WBC (Bld) 10.9 % [facility] Neutrophils (Bld) [#/Vol] 2.26 10*3/uL 1.45 - 7.50 k/uL [facility] Neutrophils/100 WBC (Bld) 40.5 % [facility] Nucleated RBC (Bld) [#/Vol] <0.01 k/uL [facility] Nucleated RBC/100 WBC (Bld) [Ratio] 0.0 /[address] [facility] Platelet mean volume (Bld) [Entitic vol] 9.6 fL 9.0 - 12.[address] [facility] Platelets (Bld) [#/Vol] 321 10*3/uL 150 - 400 k /uL [facility] RBC (Bld) [#/Vol] 3.81 10*6/uL Low 3.90 - 5.2 0 m/uL [facility] WBC (Bld) [#/Vol] 5.59 10*3/uL 3.70 - 11. 00 k/uL [facility] MRI LUMBAR SPINE WO IVCONon 10-05-[address] [facility] [address] Spine Lumbar w/o Contrast on 09-14-2021 CT Spine Lumbar w/o Contrast Exam Date/Time: 09/13/2021 23:08 EDT Reason for Exam: Low back pain, progressive neurologic deficit;Other (please specify) Report IMPRESSION: No acute fracture or traumatic malalignment. L4-L5 and L5-S1 disc bulges with mild canal stenosis and dbmx-yf-zoeoahto left neural foraminal narrowing, most prominent at [...] MD Transcribed by: SAM Technologist: KATARZYNA Sheehan [facility] Coding Summary.on 09-14-2021 Coding Summary. CD:[id number] G h0bWw+PGhlYWQ+HH1FQOQ dZ67nqHMjaD1SG8sYRF6P MJWKEIDITW1BTO8lkWE4K CgqH5XoleFy WtebdYJcRA11XVr2RNU8o ZwpRAntgC2kbPSoM7e5Uv EuEF18sW69NGgcMJWhVsK 3LjZpbjsgbWFy P4kzRpBrxCXoJri+PHRhY mxlIHdpZHRoPScxMDAlJy KprSazOD9jVy9nLMHcQFJ vbGxhcHNlOiBj h0mfKORjCVrfYL3xxDfkB 2PvhPF5MIMqw0e1Oz47jH I+EQOiCTO9jBvrQSdoz29 4QnSos6xeXBY0 zKWlBWhhPFT8J95nd8D1V LUgHNMvMKD2zXC5iP9emB farsfvT6SyhPQuDfX4SFR 7mJAmvX9kxQkk boiimO0eEze+G74YTK8ZH OVZVW7COfi7N9XbOorlhG I+JT40XAUiWU20tEYtbHH is2khwKm7TdDt PLPaIGP5nLrvJEfna2BoG UAvZ11ekQLdg5H1WIWgqS elrABgKfOtkIS2aE0aELo pbpkak7rnysfk Vlcbu2ubxv76nV78L46lX VjePOOhNWL2ULJoLRAgxH qrhk5wkK6lXq4+NIbyk6s fz1mrzLr2OjMy KFXaibOhbLycWJM5n4GoE z20K0RrbGtgi7TuXrf9aq 51mWTif7P5tMY0JGjbJCU keQ8rTTguXqE8 RJIaCeMchR56sFIzARtlA c0ucTbhqFipKM0cOCWmgl zoRKMvuG5hQLIylMJbjAh lXC8hXXUlrsxl x402NeLwHIG0UIMavKZyR 7DcbV6jOrJkHKUwKVQhI7 LgzONeNSzlZ047XEyyFcA 4WKJhszFbQ5Bs SDCmmXnoMpF5n1X6Cq2Ms 3RfsummYGX1DWfjPND4Sf VoXtTtLpT8R9SsRfg2DGX ogTezFN5xL4Bf DRUdqoqlnseuqVE8GFCbP VJnnV26hPVaQVezDo8ww2 U6w812VVFvGBLuuQ76Aa8 udDogMTBwdCBU jM6pchcpv9kysnzsZdXsE KIzZMz4VDn8IOBywSeaUb OsUVY3UjM3STI1vRGeeP3 clFfjaofxrW6a Oyc+K45avQ0dMZV4PXW2d vktTHXvtzKnTQ77AL61M1 RyPjwvdGFibGU+PGRpdiB tjRrdLB4cIyQf h3nbl9ZkQVzvJ3GxIENzC RykTni3BONpTDY1fAQ2iB 5lMEZjQIzra4X5rUA7B7F hhyMzyh5on5fx CIUuNZpqZ00yxNJyu5U6T ZVmaSN8RWZatJifUwQjnW 93Oyc+JHDwfPkel4OvQpt ku3inu2npoJe6 QwRlXADpueJmeMlaOFH1r 9ZzUu02V43aZGgbXMXePJ ZfIEJpELPotTivrw4ivS0 wIi8+PGNvbCB3 eOF5lJ1eNUFhLhW6TPtmL 413BgEicCOfKwanc0gfi2 gwyPl6DnQyNJOphhXgiOh oLIE4d7RjWd94 I88yPTeoSGFnTHUwFRUvT KWhfAorax2ojS5yNt8+PC 9lh7gpdp57fE06hAQ+PHR tJGH7bTekRQsx AABmbN0lQMfpIfF5MZVsG yKcnU76bIHoHYfjTj9wqV ssaXxyZL9cUGJawwjlq42 8AwPng0uvJHQc oVDkWTjhIVO9S91kw0P5J GSePIFfFPH4hTO2rW2bzP lnbjogbGVmdDsgdmVydGl sQJtpPSuqU627 IHRvcDsnPlBhdGllbnQgT lCdLWl5Y8CfMkc8VZUacL deFF1slIPoCHcpAn5huLr hmJjwNA6yMPAq dtfvi462YlWme6iyNQUng GRbJOjcURX6H57yj1D1HR MxXCCqCAQ7kPX0nN1yfQy nbjogbGVmdDsg ycGtoCvsENjiSMdgC303R HRvcDsnPkJpcnRoIERhdG O6LR38IF01mLLga4W5fAE 6Z4QyXZXjbebc picbtDV3LRJhPRIvoN24P v4drNalJb2tPFOrOQW6GH EpmQVoC4HwyK5oWxWiUTR xOXDeE8QgrFPp GTpaG419DRuuZxH6ALZyg iLtE9BjGUNtyFloWoX1f1 G5Cw6OX1D2QT25TM19vEK cx4C2wZY7F6Ua MXGnllyxyoxxoPR9CRRmZ MHzvE37Fw5byYltNv5eRP OpDEJ8LPHogUEsL6CrnV9 yOiAjMDAwMDAw F9IwbVDxXVmcO787JDupH kM7VRLkjfLyZ3EqYERorF cyUhB5e2T0Wc8MZUr8QS6 5TU45sIYgz6F1 aRG8O3KtXJWltdfvlrzoq CT5XSIoXDQfcL83Mk4yxL buGx3iIUErQWG1FSJjgZD bV8BjwF0bGeCq COKjPNAyS1MyzZOnNGptF 469PIinMvE3UZPpdcStA7 QiVFYtxXzlWuR0f3A5Oi8 KMCCvDN33VPY9 gBC3HN24BO78A4SlUsxcm GFibGU+PHRhYmxlIHdpZH RoPScxMDAlJyBzdHlsZT0 aHr9kJWHmGDZo tVsmoRTtYzZvh5miSLSvY GfiNA3xcOrqK7ZcdJQ9CI Oyx3d7Rz24T01gG9PnuQI +EJVitAR6kDP4 zR9xLjVuEgJ9MFwpE751Z iJspSJcGzjgp8vnb3ghyL z0NcG2FYWsvhPxfKfeSLO 2c9MwZn47Q66f IHdpZHRoPSIxNSUiIHZhb Lnnhh8kqL8fEm6+PGNvbC H8qAD9hT5jUzDdYfL6MHc lK249VbBswZHm Pzfak7vij1remFj5NkSsE OVnxjXigPkiWIC3n0JlRj 60L1CoqOlrq9ApOti0ck0 6nVKhh7A9hNY2 F4OxESKfsqrhxXColQnwJ Q2oGVEfrblxWPJpaC4bXL EbC8o5TwXmUiN1KCwoO9K vkoT0VARtgTQu WGxbUMD5X20or1C9DPAsC PImKUO5zDQ2jM4xnMlzcn ogbGVmdDsgdmVydGljYWw nBWxqX133BJRn yMhpKQPzyI9zYWNjjSAny YckDV5tZZAtueasElaML0 hBUklBUywgQVNITEVZPC9 7QC34zMFql8S2 aBN0M8FmOCXihevafzqgc RT0LAJiAZWcoX37gYJxPO tvMs3sr6W5z501GVVjURM xvJ02Kv0rzMft IOWvtMECcK3dfxaqs9jxd hseKgTwCVFcDBf9WMb2XD HsjIhrDcYfQGL6QuH7NEO 3aMWcbY8loHfc adexhD2eXud+MTIvMDEvM Hf1MenueQL+WGQtVFO4bF jxAQyrUDCstN2kGUCbS3m 3DtDaJzU6AVoh I0GuNTPwbgicQk72uS2xX nKeIfM7RCpxY0ZxvbP7GG WthDQdOVqyJRW6Z71if9C 1FRCbQHUlVYS2 nHO9yA7yyMdziprcgCLqr DsgdmVydGljYWwtYWxpZ2 79VOUabIilQaH1BQfgKSF kWV77JM94hDHs t1Q6bBY8J9KhFKZqtahbi jifbRL6GJUyCYTcaY95lS KbZJjjHt5ke8B9n450QKF iGWFczA97Wq4u dQfyARRbgIABsS9timfwf 3yhfdspEuAkXIBiEOm2GG k6QAZsdPoiOvCsSWO3BqQ 3SJM3jFYbbO4j iBkclpnlxU4aFbe+RmVtY IecPH89QF94sBJwg4I3cR O1F4BeXWHtzhvxshcytYW 7AEQhXEOdpI14 sOHoQAtrNq2zk3I0g392E LGiMBNpnA73Jd6dfSxiFB UxsHFPuM3qphtoc4rnopt gIzAwMDAwMDt0 PDr2HZJnxKetPiFmBGQ1T lH7IUH2zWEwdF8kxYcfmy zwrV5tXhq+NY0eyrgvqkO 6RJ13AT61D6Wn PjwvdGFibGU+PHRhYmxlI HdpZHRoPScxMDAlJyBzdH hqQX0bJz0fJBPvQYFgbBx zfMLrNzVvq1ax XTGsPCutWT0joGpgC5Xlk XK3EUXie3n8Ji32I00bW5 JvdXA+VJYmtPC2kHW1qD0 tJuDvYiC0JOmu V108BqJedORfMpihz2ysh 7omkRw6GsNcOSGdoeSxkA qiRGX5u6JaMl27V31gCQg pZHRoPSIyMCUi KWXtyOiopx8kaK5sFm3+P YWjoHX1jLK7vL4yQuWsRu C2NGhqQ109GzVjxHPdTbq dG39cD5AdaLT+ NMHzOld6DERcnGcgTZ6go JDjHEvxIz2vDYO0FpAzSl XpDOyaF9TeFGIzpzxelsp ojPT6ZYJkJVOh aK58Jn6dnWdcBu2aNNPhK KW9WXVwfXEkQ6McjD6yCq DxLJBfCWIgI4BpaIEbPId iR651OOajUuI7 KWPlepRcE3MfBMDeoLeyU zK0c6K2Oj4XeZtrxJNeBI 2uBkAcLHb8V7SsAlh1FCG bcOggPY6ftCKc BEkyZm1nzYdmvIofRU9aR YPyqjdwv853WpLvz0hjQO RdpOGkDArsAHV9Q59yv1V 5LNSaLROsGWL9 kKK5lD1tmTaamspisFKbd DsgdmVydGljYWwtYWxpZ2 40OENheGcoTrAFIfw1P4L vEsm8FQNzeZgx AL7hdNSpDXdgRr1ymRmeq KhgGB8wHWBxhgrpj954Ja Dxf7nnWBJsrKCpBHnnQSS 8W31vh9B8OWBk JTAdLLE1oYN9nD9opVhdx jogbGVmdDsgdmVydGljYW dlEAccS931MTYfzCgwVk4 PNcz8T5TfVkm3 UBYyyZkyIH3kpSNvTAdxA v2sySianYtgNS7oMTZkvs ybb284CpVwb0hePDHgtLF nXRobQIW9K01x u6T9SFRgBAOvMSM5vDK8v G5jpDhouqjvqTPysMwuws GbnVmwHQyiNNufC809TBS vcDsnPlBheWVy OjwvdGQ+SO01ce95G9WkH rfaHih2OOOqKJD4vHQ0hB 1qXSUnBKxyq6T2bOJ5M4E dcrRrug1ot9xt YXBz (more content not included)... Normal [facility] Discharge Instructionson Discharge Instructions [id number]# 1.00CD:127 Normal [facility] ED Clinical Summaryon 2021 ED Clinical Summary [place] [id number] ED Clinical Summary Person Information Name: HANNAH HENDRICKS/[facility] Age: 31 Years : 1990 Sex: Female Language: Cymraes PCP: Severiano Wallace III, DO Marital Status: Phone: [phone] Visit Id: Visit Reason: Back pain; BACK [...] 09/13/2021 23:57:29 09/13/2021 23:57:29 09/13/2021 23:57:29 ADDRESS: [id number] [facility] [id number] PHYS DOC NOTES: MEDICAL INFORMATION: Prescriptions Given: New Medications Printed Prescriptions acetaminophen-hydroco done (Sherman 325 mg-5 mg oral tablet) 1 Tablets [...] 0. PATIENT EDUCATION INFORMATION: Instructions: Back Exercises, Jhpt-yp-Ggrx Follow up: With: Address: When: Santana Vidal [address] [place] [id number] [facility] [place] (1) In 3 days 09/16/2021 Comments: Take the prednisone daily until you have completed the course you can use the Robaxin, Sherman as prescribed as needed for pain. Use lidocaine patch daily. Please follow-up with your primary care doctor and orthopedic for further evaluation management. With: Address: When: Severiano Wallace [address] [place] [address] [facility] [place] (1) In 3 days DIAGNOSIS: Sciatica Normal [facility] ED Note-Nursingon 09-14-2021 ED Note-Nursing pt given d/c instructions and educated on importance of follow up. pt educated on new medications. pt verbalized understanding of instructions and readiness for d/c. pt walked self ambulatory to waiting room in stable condition. pt driven home by boyfriend. Normal [facility] ED Note-Physicianon 09-15-19 ED Note-Physician Basic Information [...] degenerative changes at L4-L5. Patient is given Sherman, Lidoderm, Norflex in addition to prednisone in [...] Given Lidoderm 5% Patch, 1 patch(es), TransDermal Sherman 5/325 Tab, 1 tab(s), Oral orphenadrine 30 mg/mL Inj, 60 mg, IntraMuscular predniSONE 20 mg Tab, 60 mg, Oral Disposition Plan Discharge Prescription List Prescriptions Lidoderm 5% topical film, 1 patch(es), Topical, Daily Sherman 325 mg-5 mg oral tablet, 1 tab(s), Oral, q6hr, PRN predniSONE 50 mg Tab, 50 mg= 1 tab(s), Oral, Daily Robaxin 500 mg Tab, 500 mg= 1 tab(s), Oral, TID Follow-up With When Contact Information Santana Vidal In 3 days 09/16/2021 EDT [address] [place] [address] [facility] [place] (1) Additional Instructions: Take the prednisone daily until you have completed the course you can use the Robaxin, Sherman as prescribed as nee (more content not included)... Normal [facility] Comment on above: Result Comment: Elec tronically [...] the exerc (more content not included)... Normal [facility] ED Patient Summaryon 022 ED Patient Summary [address] [address] Patient Discharge Instructions Person Information Name: HANNAH HENDRICKS Age: 31 Years Arrival Date: 09/13/2021 20:29:38 Discharge Diagnosis: Sciatica Primary Care Physician: Severiano Wallace III, DO Provider Information Primary Provider: Moon Manuel DO [employer] Detailer:None The exam and treatment you received in the Emergency Department were for an urgent problem and are not intended as complete care. It is important that you follow up with a doctor, nurse practitioner, or physician?s critical care physician assistant for ongoing care. If your [...] Follow-up Instructions: With: Address: When: Santana Vidal [address] [place] [address] [facility] [place] () In 3 days 09/16/2021 Comments: Take the prednisone daily until you have completed the course you can use the Robaxin, Sherman as prescribed as needed for pain. Use lidocaine patch daily. Please follow-up with your primary care doctor and orthopedic for further evaluation management. With: Address: When: Severiano Wallace [address] [place] [address] [facility] [place] (1) In 3 days In the event that this physician does not participate in your insurance network, please consult with your insurance company to find a nearby participating provider. Patient Education Materials: Back Exercises, Tfzb-mr-Ksre A MESSAGE TO ALL PATIENTS REGARDING OPIOIDS PRESCRIPTION OPIOIDS: WHAT YOU NEED TO KNOW Prescription opioids can be used to help relieve caiwemuq-zf-calizo pain and are often prescribed following a [...] the to (more content not included)... Normal [facility] RAD - Preliminary Cat Scan R eporton 09-14-2021 RAD - Preliminary Cat Scan Report [id number]# 1.00CD:127 Normal [facility] U BetaHcg Qualon 09-14-2021 HCG.beta subunit (U) [Moles/Vol] Negative Normal [facility] Comment on above: Performed By: #### [id number] #### [facility] [address] [place] [address] Consent for Treatmenton Consent for Treatment [id number] .00CD:127 Normal [facility] SEROLOGYOrdered By: Pascale Noe on 09-13-2021 HCG.beta subunit (U) [Moles/Vol] Negative Normal [facility] Man Sero Vital Signs Date Time Vital Sign Value Performing Clinician Faci lity 01-11-2025 09:59-0400 Body mass index (BMI) [Ratio] 34.7 kg/m2 Dr. Thomas Salinas MD Work Phone: [facility] 01-11-2025 09:59-0400 Body weight 97.[address] Thomas owens MD Work Phone: [facility] 01-11-2025 09:59-0400 Diastolic blood pressure 75 mm[Hg] Dr. Thomas Salinas MD Work Phone: [facility] 01-11-2025 09:59-0400 Systolic blood pressure 118 mm[Hg] Dr. Thomas Salinas MD Work Phone: [facility] 12-28-2024 09:50-0400 Body height 167.[address] Thomas owens MD Work Phone: [facility] 12-28-2024 09:45-0400 Body mass index (BMI) [Ratio] 33.9 kg/m2 Dr. Thomas Salinas MD Work Phone: [facility] 12-28-2024 09:45-0400 Body weight 95.[address] Thomas owens MD Work Phone: [facility] 12-28-2024 09:45-0400 Diastolic blood pressure 72 mm[Hg] Dr. Thomas Salinas MD Work Phone: [facility] 12-28-2024 09:45-0400 Systolic blood pressure 118 mm[Hg] Dr. Thomas Salinas MD Work Phone: [facility] 12-15-2024 09:22-0400 Body height 167.[address] Thomas owens MD Work Phone: [facility] 12-15-2024 09:22-0400 Body mass index (BMI) [Ratio] 33.1 kg/m2 Dr. Thomas Salinas MD Work Phone: [phone])[phone] [place] [address] 12-15-2024 09:22-0400 Body weight 93.[address] Thomas owens MD Work Phone: [facility] 12-15-2024 09:22-0400 Diastolic blood pressure 69 mm[Hg] Dr. Thomas Salinas MD Work Phone: [facility] 12-15-2024 09:22-0400 Systolic blood pressure 106 mm[Hg] Dr. Thomas Salinas MD Work Phone: [facility] 12-01-2024 08:19-0400 Body height 167.[address] Thomas owens MD Work Phone: [facility] 12-01-2024 08:19-0400 Body mass index (BMI) [Ratio] 33.3 kg/m2 Dr. Thomas Salinas MD Work Phone: [facility] 12-01-2024 08:19-0400 Body weight 93.[address] Thomas owens MD Work Phone: [facility] 12-01-2024 08:19-0400 Diastolic blood pressure 70 mm[Hg] Dr. Thomas Salinas MD Work Phone: [facility] 12-01-2024 08:19-0400 Systolic blood pressure 112 mm[Hg] Dr. Thomas Salinas MD Work Phone: [facility] 11-09-2024 08:55-0400 Body height 167.[address] Thomas owens MD Work Phone: [facility] 11-09-2024 08:55-0400 Body mass index (BMI) [Ratio] 32.6 kg/m2 Dr. Thomas Salinas MD Work Phone: [facility] 11-09-2024 08:55-0400 Body weight 91.[address] Thoams owens MD Work Phone: [facility] 11-09-2024 08:55-0400 Diastolic blood pressure 71 mm[Hg] Dr. Thomas Salinas MD Work Phone: [facility] 11-09-2024 08:55-0400 Systolic blood pressure 104 mm[Hg] Dr. Thomas Salinas MD Work Phone: [facility] 10-12-2024 15:54-0400 Body height 167.[address] Thomas owens MD Work Phone: [facility] 10-12-2024 15:54-0400 Body mass index (BMI) [Ratio] 31.5 kg/m2 Dr. Thomas Salinas MD Work Phone: [facility] 10-12-2024 15:54-0400 Body weight 88.[address] Thomas owens MD Work Phone: [facility] 10-12-2024 15:54-0400 Diastolic blood pressure 75 mm[Hg] Dr. Thomas Salinas MD Work Phone: [facility] 10-12-2024 15:54-0400 Systolic blood pressure 119 mm[Hg] Dr. Thomas Salinas MD Work Phone: [facility] 09-14-2024 08:59-0400 Body height 167.[address] Thomas owens MD Work Phone: [facility] 09-14-2024 08:59-0400 Body mass index (BMI) [Ratio] 30.7 kg/m2 Dr. Thomas Salinas MD Work Phone: [facility] 09-14-2024 08:59-0400 Body weight 86.[address] Thomas owens MD Work Phone: [facility] 09-14-2024 08:59-0400 Diastolic blood pressure 71 mm[Hg] Dr. Thomas Salinas MD Work Phone: [facility] 09-14-2024 08:59-0400 Systolic blood pressure 106 mm[Hg] Dr. Thomas Salinas MD Work Phone: [facility] 08-17-2024 08:32-0400 Body mass index (BMI) [Ratio] 29.7 kg/m2 Dr. Thomas Salinas MD Work Phone: [facility] 08-17-2024 08:32-0400 Body weight 83.[address] Thomas owens MD Work Phone: [facility] 08-17-2024 08:32-0400 Diastolic blood pressure 68 mm[Hg] Dr. Thomas Salinas MD Work Phone: [facility] 08-17-2024 08:32-0400 Systolic blood pressure 104 mm[Hg] Dr. Thomas Salinas MD Work Phone: [facility] 08-05-2024 09:52-0400 Body mass index (BMI) [Ratio] 29.5 kg/m2 Dr. Thomas Salinas MD Work Phone: [facility] 08-05-2024 09:52-0400 Body weight [address] Thomas owens MD Work Phone: [facility] 08-05-2024 09:52-0400 Diastolic blood pressure 78 mm[Hg] Dr. Thomas Salinas MD Work Phone: [facility] 08-05-2024 09:52-0400 Systolic blood pressure 126 mm[Hg] Dr. Thomas Salinas MD Work Phone: [facility] 07-20-2024 13:59-0400 Body height 167.[address] Royce Chapin DO Work Phone: [facility] 07-20-2024 13:58-0400 Body mass index (BMI) [Ratio] 29.4 kg/m2 Dr. Royce Chapin DO Work Phone: 7(501)[phone] [place] [address] 07-20-2024 13:58-0400 Body weight 82.[address] Royce Chapin DO Work Phone: [facility] 07-20-2024 13:58-0400 Diastolic blood pressure 79 mm[Hg] Dr. Royce Chapin DO Work Phone: [facility] 07-20-2024 13:58-0400 Systolic blood pressure 117 mm[Hg] Dr. Royce Chapin DO Work Phone: [facility] 04-14-2024 14:22-0500 Body height 167.[address] Royce Chapin DO Work Phone: [facility] 04-14-2024 14:19-0500 Body mass index (BMI) [Ratio] 28.8 kg/m2 Dr. Royce Chapin DO Work Phone: 7(538)[phone] [place] [address] 04-14-2024 14:19-0500 Body weight 80.[address] Royce Chapin DO Work Phone: [facility] 04-14-2024 14:19-0500 Diastolic blood pressure 78 mm[Hg] Dr. Royce Chapin DO Work Phone: [facility] 04-14-2024 14:19-0500 Systolic blood pressure 114 mm[Hg] Dr. Royce Chapin DO Work Phone: [facility] 04-01-2024 20:00-0500 Body temperature 98 [degF] Dr. Royce Chapin DO Work Phone: [facility] 04-01-2024 20:00-0500 Diastolic blood pressure 68 mm[Hg] Dr. Royce Chapin DO Work Phone: [facility] 04-01-2024 20:00-0500 Heart rate 79 /min Dr. Royce Chapin DO Work Phone: 6(534)[phone] [place] [address] 04-01-2024 20:00-0500 Respiratory rate 18 /min Dr. Royce Chapin DO Work Phone: 8(270)[phone] [place] [address] 04-01-2024 20:00-0500 SaO2% (BldA) [Mass fraction] 100 % Dr. Royce Chapin DO Work Phone: [facility] 04-01-2024 20:00-0500 Systolic blood pressure 112 mm[Hg] Dr. Royce Chapin DO Work Phone: [facility] 04-01-2024 16:16-0500 Body mass index (BMI) [Ratio] 29.2 kg/m2 Dr. Royce Chapin DO Work Phone: [facility] 04-01-2024 16:16-0500 Body weight 82.[address] Royce Chapin DO Work Phone: [facility] 07-27-2023 11:28-0400 Body temperature 97.7 [degF] Diana Reids [employer]OWER TRUCK DRIVER.EXTRACTIONS TECHNICIAN Work Phone: [facility] 07-27-2023 11:28-0400 Body weight 73.03 kg Diana Reids [employer]OWER TRUCK DRIVER.EXTRACTIONS TECHNICIAN Work Phone: [facility] 07-27-2023 11:28-0400 Diastolic blood pressure 69 mm[Hg] Diana Reids TOWER TRUCK DRIVER.EXTRACTIONS TECHNICIAN Work Phone: [facility] 07-27-2023 11:28-0400 Heart rate 98 /min Diana Reids TOWER TRUCK DRIVER.EXTRACTIONS TECHNICIAN Work Phone: [facility] 07-27-2023 11:28-0400 Respiratory rate 18 /min Diana Reids TOWER TRUCK DRIVER.EXTRACTIONS TECHNICIAN Work Phone: [facility] 07-27-2023 11:28-0400 Systolic blood pressure 117 mm[Hg] Diana Reids TOWER TRUCK DRIVER.EXTRACTIONS TECHNICIAN Work Phone: [facility] 02-06-2023 08:40-0400 Body height 165.1 cm Konstantin Kirkland MD Work Phone: [facility] 02-06-2023 08:40-0400 Body weight 73.94 kg Konstantin Kirkland MD Work Phone: [facility] 02-06-2023 08:40-0400 Diastolic blood pressure 73 mm[Hg] Konstantin Kirkland MD Work Phone: [facility] 02-06-2023 08:40-0400 Heart rate 101 /min Konstantin Kirkland MD Work Phone: [facility] 02-06-2023 08:40-0400 SaO2% (BldA) [Mass fraction] 100 % Konstantin Kirkland MD Work Phone: [facility] 02-06-2023 08:40-0400 Systolic blood pressure 106 mm[Hg] Konstantin Kirkland MD Work Phone: [facility] 04-04-2022 13:49-0500 Body temperature 98.1 [degF] Konstantin Kirkland MD Work Phone: [facility] 04-04-2022 13:49-0500 Body weight 77.56 kg Konstantin Kirkland MD Work Phone: [facility] 04-04-2022 13:49-0500 Diastolic blood pressure 71 mm[Hg] Konstantin Kirkland MD Work Phone: [facility] 04-04-2022 13:49-0500 Heart rate 82 /min Konstantin Kirkland MD Work Phone: [facility] 04-04-2022 13:49-0500 SaO2% (BldA) [Mass fraction] 100 % Konstantin Kirkland MD Work Phone: [facility] 04-04-2022 13:49-0500 Systolic blood pressure 124 mm[Hg] Konstantin Kirkland MD Work Phone: [facility] 03-19-2022 13:09-0500 Body height 165.1 cm Pacc 3 Work Phone: [facility] 03-19-2022 13:09-0500 Body temperature 97.9 [degF] Pacc 3 Work Phone: [facility] 03-19-2022 13:09-0500 Body weight 77.56 kg Pacc 3 Work Phone: [facility] 03-19-2022 13:09-0500 Diastolic blood pressure 73 mm[Hg] Pacc 3 Work Phone: [facility] 03-19-2022 13:09-0500 Heart rate 65 /min Pacc 3 Work Phone: [facility] 03-19-2022 13:09-0500 Respiratory rate 16 /min Pacc 3 Work Phone: [facility] 03-19-2022 13:09-0500 SaO2% (BldA) [Mass fraction] 97 % Pacc 3 Work Phone: [facility] 03-19-2022 13:09-0500 Systolic blood pressure 111 mm[Hg] Pacc 3 Work Phone: [facility] 03-05-2022 08:55-0500 Body height 165.1 cm Konstantin Kirkland MD Work Phone: [facility] 03-05-2022 08:55-0500 Body weight 81.06 kg Konstantin Kirkland MD Work Phone: [facility] 03-05-2022 08:55-0500 Diastolic blood pressure 78 mm[Hg] Konstantin Kirkland MD Work Phone: [facility] 03-05-2022 08:55-0500 Heart rate 96 /min Konstantin Kirkland MD Work Phone: [facility] 03-05-2022 08:55-0500 SaO2% (BldA) [Mass fraction] 98 % Konstantin Kirkland MD Work Phone: [facility] 03-05-2022 08:55-0500 Systolic blood pressure 118 mm[Hg] Konstantin Kirkland MD Work Phone: [facility] 02-05-2022 11:14-0400 Body height 165.1 cm Konstantin Kirkland MD Work Phone: [facility] 02-05-2022 11:14-0400 Body temperature 98.4 [degF] Konstantin Kirkland MD Work Phone: [facility] 02-05-2022 11:14-0400 Body weight 79.74 kg Konstantin Kirkland MD Work Phone: [facility] 02-05-2022 11:14-0400 Diastolic blood pressure 78 mm[Hg] Konstantin Kirkland MD Work Phone: [facility] 02-05-2022 11:14-0400 Heart rate 94 /min Konstantin Kirkland MD Work Phone: [facility] 02-05-2022 11:14-0400 Systolic blood pressure 131 mm[Hg] Konstantin Kirkland MD Work Phone: [facility] 12-06-2021 13:52-0400 Body height 165.1 cm Pacc 3 Work Phone: [facility] 12-06-2021 13:52-0400 Body temperature 97.3 [degF] Pacc 3 Work Phone: [facility] 12-06-2021 13:52-0400 Body weight 79.02 kg Pacc 3 Work Phone: [facility] 12-06-2021 13:52-0400 Diastolic blood pressure 76 mm[Hg] Pacc 3 Work Phone: [facility] 12-06-2021 13:52-0400 Heart rate 73 /min Pacc 3 Work Phone: [facility] 12-06-2021 13:52-0400 Respiratory rate 16 /min Pacc 3 Work Phone: [facility] 12-06-2021 13:52-0400 SaO2% (BldA) [Mass fraction] 100 % Pacc 3 Work Phone: [facility] 12-06-2021 13:52-0400 Systolic blood pressure 111 mm[Hg] Pacc 3 Work Phone: [facility] 12-04-2021 14:12-0400 Body height 165.1 cm Konstantin Kirkland MD Work Phone: [facility] 12-04-2021 14:12-0400 Body temperature 97.59 [degF] Konstantin Kirkland MD Work Phone: [facility] 12-04-2021 14:12-0400 Body weight 79.2 kg Konstantin Kirkland MD Work Phone: [facility] 12-04-2021 14:12-0400 Diastolic blood pressure 75 mm[Hg] Konstantin Kirkland MD Work Phone: [facility] 12-04-2021 14:12-0400 Heart rate 67 /min Konstantin Kirkland MD Work Phone: [facility] 12-04-2021 14:12-0400 Systolic blood pressure 119 mm[Hg] Konstantin Kirkland MD Work Phone: [facility] 10-11-2021 09:30-0400 Body height 165.1 cm Feng Wright MD Work Phone: [facility] 10-11-2021 09:30-0400 Body weight 77.97 kg Feng Wright MD Work Phone: [facility] 10-11-2021 09:30-0400 Heart rate 106 /min Feng Wright MD Work Phone: [facility] 10-11-2021 09:30-0400 SaO2% (BldA) [Mass fraction] 98 % Feng Wright MD Work Phone: [facility] 09-19-2021 11:31-0400 Body height 166.4 cm Yana Ziol [employer] TECH[employer]ICIAN Work Phone: [facility] 09-19-2021 11:31-0400 Body temperature 97.9 [degF] Yana Ziol [employer]TRACTIONS TECHNICIAN Work Phone: [facility] 09-19-2021 11:31-0400 Body weight 78.47 kg Yana Ziol [employer]TRA[employer] TECHNICIAN Work Phone: [facility] 09-19-2021 11:31-0400 Diastolic blood pressure 80 mm[Hg] Yana Ziol [employer]TRACTIONS TECHNICIAN Work Phone: [facility] 09-19-2021 11:31-0400 Systolic blood pressure 122 mm[Hg] Yana Ziol [employer].EXTRACTIONS TECHNICIAN Work Phone: [facility] 09-13-2021 23:55-0400 Body temperature 98.24 [degF] Kaylinn Dokken [facility] 09-13-2021 23:55-0400 Diastolic blood pressure 70 mm[Hg] Kaylinn Dokken [facility] 09-13-2021 23:55-0400 Heart rate 70 /min Kaylinn Dokken [facility] 09-13-2021 23:55-0400 Mean blood pressure 90 mm[Hg] Kaylinn Dokken [facility] 09-13-2021 23:55-0400 Respiratory rate 17 /min [facility] [facility] 09-13-2021 23:55-0400 SaO2% (BldA) [Mass fraction] 99 % Kaylinn Dokken [facility] 09-13-2021 23:55-0400 Systolic blood pressure 130 mm[Hg] Kaylinn Dokken [facility] 09-13-2021 20:33-0400 Body temperature 98.06 [degF] Kaylinn Dokken [facility] 09-13-2021 20:33-0400 Diastolic blood pressure 90 mm[Hg] Kaylinn Dokken [facility] 09-13-2021 20:33-0400 Heart rate 110 /min Altheaylinn Dokken [facility] 09-13-2021 20:33-0400 Respiratory rate 15 /min Altheaylinn Dokken [facility] 09-13-2021 20:33-0400 SaO2% (BldA) [Mass fraction] 98 % Kristianinn Dokken [facility] 09-13-2021 20:33-0400 Systolic blood pressure 135 mm[Hg] Altheaylinn Dokken [facility] Encounters Encounter Date Encounter Type Care Provider Facility Start: 02-08-2025 ambulatory Maryann Mcfarlandty:[facility] Start: 02-02-2025 End: 02-02-2025 ambulatory Maryann Bajwa Facility:[facility] Start: 02-01-2025 ambulatory Ximena Mcghee Facility :[facility] Start: 02-01-2025 End: 02-01-2025 ambulatory Ximena Mcghee Facility:[facility] Start: 01-26-2025 End: 01-26-2025 ambulatory Isabel Marion Facility:[facility] Start: 01-11-2025 End: 01-11-2025 Patient encounter procedure Ximena Mcghee CNM -[facility] Work Phone: Start: 01-11-2025 End: 01-11-[address] Thomas Salinas MD Work Phone: -[facility] Start: 12-28-2024 End: 12-28-2024 Patient encounter procedure Barbie Mitchell MANAGER QUALITY COMPLIANCE-C -[facility] Work Phone: Start: 12-28-2024 End: 12-28-[address] Thomas Salinas MD Work Phone: [facility] Start: 12-15-2024 End: 12-15-[address] Maryann Bajwa DO -[facility] Work Phone: Start: 12-15-2024 End: 12-15-[address] Thomas Salinas MD Work Phone: [facility] Start: 12-01-2024 End: 12-01-2024 Patient encounter procedure Barbie Mitchell MANAGER QUALITY COMPLIANCE-C -[facility] Work Phone: Start: 12-01-2024 End: 12-01-[address] Thomas Salinas MD Work Phone: [facility] Start: 12-01-2024 End: 12-01-2024 ambulatory Ximena Mcghee Facility:[facility] Start: 11-09-2024 End: 11-09-2024 Patient encounter procedure Ximena Mcghee CN -[facility] Work Phone: Start: 11-09-2024 End: 11-09-[address] Thomas Salinas MD Work Phone: [facility] Start: 10-12-2024 End: 10-12-[address] Isabel Marino MD -[facility] Work Phone: Start: 10-12-2024 End: 10-12-[address] Thomas Salinas MD Work Phone: [facility] Start: 10-08-2024 End: 10-08-[address] Thomas Salinas MD Work Phone: -[facility] Start: 10-08-2024 End: 10-08-[address] Isabel Marino MD -[facility] Start: 10-08-2024 End: 10-08-2024 ambulatory THOMAS SALINAS [facility] Start: 10-08-2024 End: 10-08-2024 ambulatory Isabel Marino Facility:[facility] Start: 09-14-2024 End: 09-14-2024 Patient encounter procedure Ximena Mcghee CNM -[facility] Work Phone: Start: 09-14-2024 End: 09-14-[address] Thomas Slainas MD Work Phone: [facility] Work Phone: Start: 08-17-2024 End: 08-17-2024 Patient encounter procedure Barbie Mitchell MANAGER QUALITY COMPLIANCE-C -[facility] Work Phone: Start: 08-17-2024 End: 08-17-2024 ambulatory Barbie Mitchell MANAGER QUALITY COMPLIANCE Facility:[facility] Start: 08-05-2024 End: 08-05-2024 Patient encounter procedure Barbie Mitchell MANAGER QUALITY COMPLIANCE-C -[facility] Work Phone: Start: 08-05-2024 End: 08-05-2024 ambulatory Barbie Mitchell MANAGER QUALITY COMPLIANCE Facility:[facility] Start: 07-31-2024 End: 07-31-[address] Maryann Bajwa DO -Lab [facility] Start: 07-31-2024 End: 07-31-2024 [facility] Start: 07-20-2024 End: 07-20-[address] Royce Chapin DO Work Phone: [facility] Work Phone: Start: 07-20-2024 End: 07-20-[address] Maryann Bajwa DO -Laboratory, Specimen Work Phone: Start: 07-20-2024 End: 07-20-[address] Maryann Bajwa DO -[facility] Work Phone: Start: 07-20-2024 End: 07-20-2024 ambulatory Maryann Bajwa Facility:[facility] Start: 07-20-2024 End: 07-20-2024 [facility] Start: 07-03-2024 Non-patient / Non-visit Renay gu RN -[facility] Work Phone: Start: 07-03-2024 ambulatory Renay Larose Facility :[facility] Start: 07-02-2024 End: 07-02-[address] Royce Chapin DO Work Phone: [facility] Work Phone: Start: 07-02-2024 End: 07-02-[address] Maryann Bajwa DO -Ultrasound, [facility] Work Phone: Start: 07-02-2024 End: 07-02-2024 ambulatory Maryann Bajwa Facility:[facility] Start: 06-27-2024 End: 06-27-[address] Royce Chapin DO Work Phone: [facility] Work Phone: Start: 06-27-2024 End: 06-27-[address] Maryann Vande Velde DO -Laboratory Work Phone: Start: 06-27-2024 End: 06-27-2024 ambulatory Maryann Bajwa Facility:[facility] Start: 06-25-2024 End: 06-25-[address] Royce Chapin DO Work Phone: [facility] Work Phone: Start: 06-25-2024 End: 06-25-[address] Maryann Richards, [facility] Work Phone: Start: 06-25-2024 End: 06-25-[address] Royce Chapin DO Work Phone: [facility] Work Phone: Start: 06-25-2024 End: 06-25-[address] Maryann DEVILab, [facility] Start: 06-25-2024 End: 06-25-2024 ambulatory Maryann Bajwa Facility:[facility] Start: 06-18-2024 End: 06-18-[address] Royce Chapin DO Work Phone: [facility] Work Phone: Start: 06-18-2024 End: 06-18-[address] Maryann DEVILab, [facility] Start: 06-18-2024 End: 06-18-2024 ambulatory Maryann Bajwa Facility:[facility] Start: 06-16-2024 End: 06-16-[address] Royce Chapin DO Work Phone: [facility] Work Phone: Start: 06-16-2024 End: 06-16-[address] Maryann DEVILab, [facility] Start: 06-16-2024 End: 06-16-2024 ambulatory Maryann Bajwa Facility:[facility] Start: 04-14-2024 End: 04-14-2024 Patient encounter procedure Barbie Mitchell MANAGER QUALITY COMPLIANCE-C -[facility] Work Phone: Start: 04-14-2024 End: 04-14-2024 ambulatory Barbie Mitchell MANAGER QUALITY COMPLIANCE Facility:[facility] Start: 04-14-2024 End: 04-14-2024 ambulatory Barbie Mitchell MANAGER QUALITY COMPLIANCE Facility:[facility] Start: 04-06-2024 End: 04-06-[address] Isabel Marino MD -Lab, [facility] Start: 04-06-2024 End: 04-06-2024 ambulatory Isabel Marino Facility:[facility] Start: 04-03-2024 End: 04-03-[address] Isabel Marino MD -Lab, [facility] Start: 04-03-2024 End: 04-03-2024 ambulatory Isabel Marino Facility:[facility] Start: 04-01-2024 End: 04-01-2024 Emergency department patient visit Dr. Royce Chapin DO -Emergency Department Work Phone: Start: 07-29-2023 End: 07-29-2023 ambulatory THOMAS SALINAS Facility:[facility] Start: 07-27-2023 End: 07-27-2023 ambulatory THOMAS SALINAS Facility:[facility] Start: 07-27-2023 End: 07-27-2023 Office outpatient visit 15 minutes Diana Trejo APRN.CNP Work Phone: [facility] Comment on above: Diarrhea, unspecifie d type (Primary Dx) Start: 05-16-2023 End: 05-16-2023 Emergency department patient visit THOMAS SALINAS Facility:[facility] Start: 03-02-2023 ambulatory THOMAS SALINAS Fa cility:[facility] Start: 03-02-2023 End: 03-02-2023 Subsequent hospital visit by physician Mri [facility] (1.5t) Radiology Comment on above: Spinal stenosis of l umbar region with neurogenic claudication [M48.062] Start: 02-06-2023 End: 02-06-2023 ambulatory THOMAS F BRYANTETTER Facility:[facility] Start: 02-06-2023 End: 02-06-2023 Patient encounter procedure Konstantin Kirkland MD Work Phone: Neurosurgery Comment on above: Radiculopathy, lumba r region (Primary Dx); Spinal stenosis of lumbar region with neurogenic claudication Start: 12-31-2022 End: 12-31-2022 ambulatory Nehemias Suarez PT, DPT Work Phone: [facility] Comment on above: Chronic bilateral lo w back pain with right-sided sciatica (Primary Dx) Start: 11-28-2022 End: 11-28-2022 ambulatory Nehemias Suarez PT, DPT Work Phone: [facility] Comment on above: Chronic bilateral lo w back pain with right-sided sciatica (Primary Dx) Start: 10-24-2022 End: 10-25-2022 ambulatory THOMAS F AVIVAER Facility:[facility] Start: 09-12-2022 End: 09-13-2022 ambulatory THOMAS F BRYANTEGAYLAER Facility:[facility] Start: 09-12-2022 End: 09-13-2022 ambulatory Nehemias Suarez PT, DPT Work Phone: [facility] Comment on above: Chronic bilateral lo w back pain with right-sided sciatica (Primary Dx) Start: 08-29-2022 End: 08-30-2022 ambulatory THOMAS F AVIVAER Facility:[facility] Start: 08-27-2022 ambulatory Konstantin Kirkland MD Work Phone: [facility] Start: 08-27-2022 Letter encounter Konstantin post MD Work Phone: [facility] [place] Comment on above: Jury Duty Letter Start: 08-15-2022 End: 08-16-2022 ambulatory Nehemias Suarez PT, DPT Work Phone: [facility] Comment on above: Chronic bilateral lo w back pain with right-sided sciatica (Primary Dx) Start: 07-30-2022 End: 07-30-2022 ambulatory Konstantin Kirkland MD Work Phone: [facility] [place] Comment on above: Radiculopathy, lumba r region (Primary Dx) Start: 07-30-2022 End: 07-30-2022 Telemedicine consultation with patient Konstantin iKrkland MD Work Phone: [facility] Start: 07-16-2022 End: 07-16-2022 ambulatory THOMAS SALINAS Facility:[facility] Start: 07-16-2022 End: 07-16-2022 ambulatory Nehemias Suarez PT, DPT Work Phone: [facility] Comment on above: Chronic bilateral lo w back pain with right-sided sciatica (Primary Dx) Start: 07-11-2022 End: 07-11-2022 ambulatory [facility] Work Phone: Start: 07-11-2022 End: 07-11-2022 Patient encounter procedure [facility]-Ultrasound, [facility] Start: 07-09-2022 End: 07-09-2022 ambulatory NEHEMIAS SUAREZ Facility:[facility] Start: 07-09-2022 End: 07-09-2022 ambulatory Nehemias Suarez PT, DPT Work Phone: [facility] Comment on above: Chronic bilateral lo w back pain with right-sided sciatica (Primary Dx) Start: 07-02-2022 End: 07-02-2022 ambulatory KONSTANTIN KIRKLAND Facility:[facility] Start: 06-25-2022 End: 06-25-2022 ambulatory NEHEMIAS SUAREZ Facility:[facility] Start: 06-25-2022 End: 06-25-2022 ambulatory Nehemias Suarez PT, DPT Work Phone: [facility] Comment on above: Chronic bilateral lo w back pain with right-sided sciatica (Primary Dx) Start: 06-18-2022 End: 06-18-2022 ambulatory NEHEMIAS SUAREZ Facility:[facility] Start: 06-11-2022 End: 06-11-2022 ambulatory KONSTANTINLEIGHA KIRKLAND Facility:[facility] Start: 06-11-2022 End: 06-11-2022 ambulatory [facility] Comment on above: Chronic bilateral lo w back pain with right-sided sciatica (Primary Dx) Start: 06-04-2022 End: 06-04-2022 ambulatory THOMAS Dayne BRAD Facility:[facility] Start: 05-30-2022 End: 05-30-2022 ambulatory THOMAS Dayne BRAD Facility:[facility] Start: 05-30-2022 End: 05-30-2022 ambulatory Nehemias Suarez PT, DPT Work Phone: [facility] Comment on above: Chronic bilateral lo w back pain with right-sided sciatica (Primary Dx) Start: 05-28-2022 End: 05-28-2022 [facility] Start: 05-21-2022 End: 05-21-2022 ambulatory THOMAS Dayne BRAD Facility:[facility] Start: 05-21-2022 End: 05-21-2022 ambulatory Nehemias Suarez PT, DPT Work Phone: [facility] Comment on above: Chronic bilateral lo w back pain with right-sided sciatica (Primary Dx) Start: 05-07-2022 End: 05-07-2022 ambulatory [facility] Comment on above: Chronic bilateral lo w back pain with right-sided sciatica (Primary Dx) Tail bone pain Start: 05-07-2022 Letter encounter Konstantin post MD Work Phone: Neurosurgery Comment on above: [employer] letter Start: 04-30-2022 End: 04-30-2022 ambulatory [facility] Comment on above: Chronic bilateral lo w back pain with right-sided sciatica (Primary Dx) Start: 04-25-2022 End: 04-25-2022 ambulatory THOMAS BRAD Facility:[facility] Start: 04-25-2022 End: 04-25-2022 ambulatory Konstantin Kirkland MD Work Phone: Neurosurgery Comment on above: Radiculopathy, lumba r region (Primary Dx) Start: 04-25-2022 End: 04-25-2022 Telemedicine consultation with patient Konstantin Kirkland MD Work Phone: [facility] Start: 04-20-2022 End: 04-20-2022 ambulatory Nehemias Suarez PT, DPT Work Phone: [facility] Comment on above: Radiculopathy, lumba r region; Chronic bilateral low back pain with right-sided sciatica Start: 04-04-2022 End: 04-04-2022 ambulatory THOMAS JENSENNIKO Facility:[facility] Start: 04-04-2022 End: 04-04-2022 Patient encounter procedure Konstantin Kirkland MD Work Phone: Neurosurgery Comment on above: Radiculopathy, lumba r region (Primary Dx) Start: 03-29-2022 Telephone encounter Konstantin shaw MD Work Phone: Neurology Comment on above: Post Op Symptoms Start: 03-21-2022 ambulatory Konstantin Kirkland MD Work Phone: [facility] [place] Comment on above: [employer] disibility paperwork Start: 03-20-2022 End: 03-20-2022 ambulatory KONSTANTIN KIRKLAND Facility:[facility] Start: 03-19-2022 Encounter for other preprocedural examination [facility] Start: 03-19-2022 End: 03-19-2022 Admission to establishment [place] [id number] Work Phone: [facility] Start: 03-19-2022 End: 03-20-2022 ambulatory [facility] Pre [facility]est[facility] Comment on above: Pre-op evaluation [...] End: 03-16-2022 Subsequent hospital visit by physician [facility] (1.5t) Radiology Comment on above: Spinal stenosis of l umbar region with neurogenic claudication [M48.062] Start: 03-14-2022 Refill Konstantin Kirkland MD Work Phone: Neurosurgery Comment on above: Refill Request Start: 03-12-2022 Telephone encounter Konstantin shaw MD Work Phone: Neurology Comment on above: Orders Start: 03-11-2022 ambulatory Ximena Lewis RN NURS E ST[employer]FF [employer]IC[employer] Comment on above: Back Pain Start: 03-05-2022 End: 03-05-2022 Patient encounter procedure Konstantin Kirkland MD Work Phone: [facility] [place] Comment on above: Lumbar radiculopathy (Primary Dx) Start: 02-19-2022 Telephone encounter Konstantin shaw MD Work Phone: Neurology Comment on above: Medication Problem Start: 02-08-2022 ambulatory Konstantin Kirkland MD Work Phone: [facility] Start: 02-08-2022 Letter encounter Konstantin post MD [...] Start: 12-19-2021 End: 12-19-2021 ambulatory KONSTANTIN KIRKLAND Facility:[facility] Start: 12-10-2021 ambulatory Ashwini OLIVEREXTRACTIONS TECHNICIAN Work Phone: Pain Management Comment on above: Gabapentin and Robax in Start: 12-07-2021 Telephone encounter Konstantin shaw MD Work Phone: Neurology Comment on above: Insurance Authorizat ion (Clinicals needed for P.A. for surgery) Start: 12-06-2021 End: 12-06-2021 [facility]: [place] Start: 12-06-2021 End: 12-06-2021 [facility] Work Phone: Pre Anesthesia Comment on above: Pre-op evaluation (P rimary Dx); Lumbar disc herniation; Known health problems: none Start: 12-06-2021 End: 12-06-2021 Preprocedural examination done [facility] Work Phone: Pre Anesthesia Start: 12-05-2021 ambulatory Konstantin Kirkland MD Work Phone: Neurosurgery Start: 12-05-2021 Patient encounter status Konstantin Kirkland MD Work Phone: Neurosurgery Start: 12-04-2021 End: 12-04-2021 Patient encounter procedure Konstantin Kirkland MD Work Phone: Neurosurgery Comment on above: Radiculopathy, lumba r region (Primary Dx) Start: 12-04-2021 End: 12-04-2021 ambulatory Ashwini Cadet APRN.EXTRACTIONS TECHNICIAN Work Phone: Pain Management Comment on above: Lumbar disc herniati on (Primary Dx); Radiculopathy, lumbar region Start: 12-04-2021 E-mail encounter fro m caregiver Yana Ballard APRN.EXTRACTIONS TECHNICIAN Work Phone: [place] Start: 12-04-2021 End: 12-04-2021 Telemedicine consultation with patient Ashwini Cadet APRN.EXTRACTIONS TECHNICIAN Work Phone: [facility] Start: 12-03-2021 ambulatory Yana HOYOSN.EXTRACTIONS TECHNICIAN Work Phone: [facility] Comment on above: Potassium Start: 11-23-2021 Telephone encounter Ashwini roldan Management Comment on above: STD Paperwork (Recei velma 11/23) Start: 11-22-2021 End: 11-22-2021 ambulatory Ashwini Cadet APRN.EXTRACTIONS TECHNICIAN Work Phone: Pain Management Comment on above: Lumbar disc herniati on (Primary Dx); Radiculopathy, lumbar region Start: 11-22-2021 End: 11-22-2021 Telemedicine consultation with patient Ashwini Cadet APRN.EXTRACTIONS TECHNICIAN Work Phone: [facility] Start: 11-16-2021 End: 11-16-2021 ambulatory Yana Ballard TOWER TRUCK DRIVER.EXTRACTIONS TECHNICIAN Work Phone: [facility] Comment on above: ER Visit Lumbar disc herniati on (Primary Dx); Radiculopathy, lumbar region Start: 11-16-2021 Telephone encounter Ashwini guajardo APRN.EXTRACTIONS TECHNICIAN Work Phone: Pain Management Comment on above: Patient Update Start: 11-16-2021 End: 11-16-2021 Telemedicine consultation with patient Ashwini Cadet APRN.EXTRACTIONS TECHNICIAN Work Phone: [facility] Start: 11-15-2021 End: 11-15-2021 ambulatory Dulce Wong TOWER TRUCK DRIVER.EXTRACTIONS TECHNICIAN Work Phone: Telemedicine Comment on above: Treatment not availa ble (Primary Dx) Start: 11-15-2021 End: 11-15-2021 Telemedicine consultation with patient Dulce Wong TOWER TRUCK DRIVER.EXTRACTIONS TECHNICIAN Work Phone: [facility] Start: 11-04-2021 Refill Yana E Ziol A PRN.EXTRACTIONS TECHNICIAN Work Phone: [facility] Comment on above: Refill Request Start: 11-02-2021 MC Get Medical Advice Yana E Ziol TOWER TRUCK DRIVER.EXTRACTIONS TECHNICIAN Work Phone: [facility] Comment on above: Muscle Relaxer Refil l Start: 10-11-2021 End: 10-11-2021 Patient encounter procedure Feng Wright MD Work Phone: Pain Management Comment on above: Radiculopathy, lumba r region (Primary Dx); Lumbar disc herniation Lumbar disc herniati on (Primary Dx); Radiculopathy, lumbar region Start: 10-06-2021 ambulatory Yana E Ziol A PRN.EXTRACTIONS TECHNICIAN Work Phone: [facility] Comment on above: MRI Start: 10-06-2021 Telephone encounter Yana Dennison ol TOWER TRUCK DRIVER.EXTRACTIONS TECHNICIAN Work Phone: [facility] Comment on above: Results (MRI) Refill Request Start: 10-05-2021 End: 10-05-2021 Subsequent hospital visit by physician [facility] (1.5t) Radiology Comment on above: Spinal stenosis of l umbar region without neurogenic claudication [M48.061] Start: 09-23-2021 ambulatory Yana E Ziol A PRN.EXTRACTIONS TECHNICIAN Work Phone: [facility] Comment on above: Chiropractor Start: 09-19-2021 End: 09-19-2021 Patient encounter procedure Yana Triplett Ziol TOWER TRUCK DRIVER.EXTRACTIONS TECHNICIAN Work Phone: [facility] Comment on above: Spinal stenosis of l umbar region without neurogenic claudication Start: 09-13-2021 End: 09-13-2021 Emergency department patient visit Moon Manuel [facility] Procedures Date Procedure Procedure Detail Performing Clinician Start: 12-01-2024 Serologic test for syphilis Dr. Thomas Salinas MD Work Phone: Start: 10-08-[address] Thomas paula MD Work Phone: Comment on above: Test Ordered: [id number] AFP, Serum, Open Spina BifidaResults MANAGER QUALITY COMPLIANCE NOLAB Reference Range: .Test Results: TG Reference Range: .Please refer to the following specimen for additional labresults.Please refer to [phone] for results.Gest. Age on Collection Date MANAGER QUALITY COMPLIANCE NOLAB Reference Range: .Gestat. Age Based On MANAGER QUALITY COMPLIANCE NOLAB Reference Range: .Maternal Age At BALAJI MANAGER QUALITY COMPLIANCE NOLAB Reference Range: .Race MANAGER QUALITY COMPLIANCE N[facility]AB Reference Range: .Weight MANAGER QUALITY COMPLIANCE NOLAB Reference Range: .Insulin Dep Diabetes MANAGER QUALITY COMPLIANCE NOLAB Reference Range: .Multiple Gestation MANAGER QUALITY COMPLIANCE NOLAB Reference Range: .AFP Value NOLAB Reference Range: .Test not performedAFP MoM MANAGER QUALITY COMPLIANCE NOLAB Reference Range: .OSBR Risk 1 IN MANAGER QUALITY COMPLIANCE NOLAB Reference Range: .Interpretation MANAGER QUALITY COMPLIANCE NOLAB Reference Range: .Comment: MANAGER QUALITY COMPLIANCE NOLAB Reference Range: .Tracking MANAGER QUALITY COMPLIANCE NOLAB Reference Range: .Performed at: - [facility] [address] [id number] Director: Norm Gonzáles PhD, Phone: [phone] at: [facility] [id number] [place], [place] [id number] Director: Zelalem Ernst [facility], Phone: [phone] Start: 07-31-2024 Hepatitis C antibody measurement Dr. [...] HCV Quant by PCR testing - HCVPCR lc#[id number] Non Reactive: < 0.8 Equivocal: >/= 0.8 [...] Speci men Type: BLOOD SPECIMEN Ordering Facility: [facility] Address: [address] [place] [id number] Performed By: #### T [id number] #### [facility] CLIA [id number] [address] ATTN EDSTINY [address] OF [place] Start: 03-16-2022 Mri spinal canal lum bar w/o contrast material Radha Dickens PA-C Work Phone: Start: 12-02-2021 Adult depression scr eening assessment Ashwini Cadet TOWER TRUCK DRIVER.EXTRACTIONS TECHNICIAN Work Phone: Start: 10-05-2021 Mri spinal canal lum bar w/o contrast material Yana Ballard TOWER TRUCK DRIVER.EXTRACTIONS TECHNICIAN Work Phone: Start: 06-12-2021 Adult depression scr eening assessment Yana Ballard TOWER TRUCK DRIVER.EXTRACTIONS TECHNICIAN Work Phone: Plan of Treatment Date Care Activity Detail Author Start: 05-16-[address] [facility] Start: 12-01-2024 CBC W Auto Different ial panel - Blood [facility] Start: 12-01-2024 Measurement of gluco se 2 hours after glucose challenge for glucose tolerance test [facility] Start: 12-01-2024 Serologic test for syphilis [facility] Start: 12-01-2024 [facility] Start: 04-01-2024 [facility] Start: 12-15-2023 Influenza vaccination Influenz a Vaccine (Season Ended) [facility] Start: 11-08-2023 PAP TESTING PAP TESTING [facility] Start: 11-08-2023 Screening for malign ant neoplasm of cervix Pap Testing [facility] Start: 04-15-2023 Behavioral Health Screening Behavioral Health Screening [facility] Start: 12-14-2022 Covid-19 Vaccine ( season) Covid-19 Vaccine ( season) [facility] Start: 12-14-2022 Influenza vaccination [facility] Start: 12-02-2022 Adult depression screening assessment DEPRESSION SCREENING [facility] Start: 06-12-2022 Adult depression screening assessment DEPRESSION SCREENING [facility] Start: 04-15-2022 DEPRESSION ASSESSMENT DEPRESSION ASS ESSMENT [facility] Start: 2022 HPV TESTING HPV TESTING [facility] Start: 2022 Screening for malign ant neoplasm of cervix HPV Testing [facility] Start: 12-14-2021 Influenza vaccination [facility] Start: 12-06-2021 End: 02-05-2022 CONFIRM BLOOD TYPE [facility] Work Phone: Comment on above: Expected: 12/06/2021 , Expires: 02/05/2022 Start: 12-06-2021 End: 02-05-2022 TYPE AND SCREEN,30 DAY [facility] Work Phone: Comment on above: Expected: 12/06/2021 , Expires: 02/05/2022 Start: 12-04-2021 End: 02-03-2022 Electrolytes 1998 panel - Serum or Plasma ELECTROLYTES BLD PNL Lab Routine Hypokalemia Expected: 12/04/2021, Expires: 02/03/2022 [facility] Work Phone: Comment on above: Expected: 12/04/2021 , Expires: 02/03/2022 Start: 12-04-2021 End: 02-03-2022 Magnesium [Mass/volume] in Serum or Plasma MAGNESIUM BLD Lab Routine Hypomagnesemia Expected: 12/04/2021, Expires: 02/03/2022 [facility] Work Phone: Comment on above: Expected: 12/04/2021 , Expires: 02/03/2022 Start: 11-23-2021 End: 01-23-2022 Basic metabolic 2000 panel - Serum or Plasma BASIC METABOLIC PNL Lab Routine Hypokalemia Expected: 11/23/2021, Expires: 01/23/2022 [facility] Work Phone: Comment on above: Expected: 11/23/2021 , Expires: 01/23/2022 Start: 11-23-2021 End: 01-23-2022 Magnesium [Mass/volume] in Serum or Plasma MAGNESIUM BLD Lab Routine Hypomagnesemia Expected: 11/23/2021, Expires: 01/23/2022 [facility] Work Phone: Comment on above: Expected: 11/23/2021 , Expires: 01/23/2022 Start: 11-07-2021 PAP TESTING PAP TESTING [facility] Start: 04-15-2021 DEPRESSION ASSESSMENT DEPRESSION ASS ESSMENT [facility] Start: 2010 HEPATITIS C SCREENING HEPATITIS C [facility] Start: 2010 Hepatitis C screening Hepatitis C [facility] Start: 2010 HIV SCREENING HIV SCREENING [facility] Start: 2010 HIV screening HIV Screening [facility] Start: 1997 COVID-19 VACCINE (#1) COVID-19 VACCI NE (#1) [facility] Start: 1992 COVID-19 VACCINE (#1) COVID-19 VACCI NE (#1) [facility] CBC W Auto Different ial panel - Blood [facility] Clostridioides diffi cile toxin genes [Presence] in Stool by YANDY with probe detection C. DIFFICILE PCR Lab Routine Diarrhea, unspecified type Ordered: 07/27/2023 [facility] Work Phone: Comment on above: Ordered: 07/27/2023 ENTERIC BACTERIAL PA KATHY BY PCR ENTERIC BACTERIAL PANEL BY PCR Lab Routine Diarrhea, unspecified type Ordered: 07/27/2023 [facility] Work Phone: Comment on above: Ordered: 07/27/2023 Erythrocyte mean corpuscular volume determination [facility] Hematocrit [Volume Fraction] of Blood [facility] Hemoglobin [Mass/vol ume] in Blood [facility] Leukocytes [#/volume ] in Blood [facility] Mean corpuscular hemoglobin concentration determination [facility] Mean corpuscular hemoglobin determination [facility] Measurement of gluco se 2 hours after glucose challenge for glucose tolerance test [facility] End: 10-19-2022 Mri spinal canal lumbar w/o contrast material MRI LUMBAR SPINE WO IVCON Radiology Routine Spinal stenosis of lumbar region without neurogenic claudication 1 Occurrences starting 09/19/2021 until 10/19/2022 [facility] Work Phone: Comment on above: 1 Occurrences starti ng 09/19/2021 until 10/19/2022 End: 04-11-2023 Mri spinal canal lumbar w/o contrast material MRI LUMBAR SPINE WO IVCON Radiology Routine Spinal stenosis of lumbar region with neurogenic claudication 1 Occurrences starting 03/12/2022 until 04/11/2023 [facility] Work Phone: Comment on above: 1 Occurrences starti ng 03/12/2022 until 04/11/2023 End: 03-07-2024 Mri spinal canal lumbar w/o contrast material MRI LUMBAR SPINE [facility] Radiology Routine Spinal stenosis of lumbar region with neurogenic claudication 1 Occurrences starting 02/06/2023 until 03/07/2024 [facility] Work Phone: Comment on above: 1 Occurrences starti ng 02/06/2023 until 03/07/2024 Neutrophil count [facility] Neutrophil percent differential count [facility] Njx anes&/strd w/img tfrml edrl lmbr/sac 1 lvl INJ TRANSFORAMINAL EPID ANES/STER LS SINGL Procedures Routine Lumbar disc herniation Radiculopathy, lumbar region 1 Occurrences starting 10/11/2021 [facility] Work Phone: Comment on above: 1 Occurrences starti ng 10/11/2021 Ova and parasites identified in Unspecified specimen by Light microscopy OVA + PARA MICROSCOPIC Microbiology Routine Diarrhea, unspecified type Ordered: 07/27/2023 [facility] Work Phone: Comment on above: Ordered: 07/27/2023 Patient Education Miscarriage Th reatened ED [facility] Work Phone: Patient referral [facility] Work Phone: Platelets [#/volume] in Blood [facility] Procedure [facility] Red blood cell count [facility] Red cell distributio n width determination [facility] Serologic test for syphilis [facility] Immunizations Immunization Date Immunization Notes Care Provider Woodrow silverman 12-15-2024 influenza, injectable, madin renee canine kidney, preservative free Dr. Thomas Salinas MD Work Phone: [facility] 12-15-2024 tetanus toxoid, reduced diphtheria toxoid, and acellular pertussis vaccine, adsorbed Dr. Thomas Salinas MD Work Phone: [facility] 05-16-2020 diphtheria, tetanus toxoids and acellular pertussis vaccine, unspecified formulation Dulce Wong TOWER TRUCK DRIVER.[facility] Work Phone: [facility] Work Phone: 05-16-2020 tetanus toxoid, reduced diphtheria toxoid, and acellular pertussis vaccine, adsorbed Yana Ziol TOWER TRUCK DRIVER.EXTRACTIONS TECHNICIAN Work Phone: [facility] 01-25-2020 Influenza, injectable, Madin [place] Canine Kidney, preservative free, quadrivalent Dulce Wong TOWER TRUCK DRIVER.EXTRACTIONS TECHNICIAN Work Phone: [facility] Work Phone: 01-25-2020 influenza, injectable,quadrivale nt, preservative free, pediatric [facility] 01-25-2020 influenza, seasonal, injectable, preservative free Dulce Wong TOWER TRUCK DRIVER.EXTRACTIONS TECHNICIAN Work Phone: [facility] Work Phone: 01-25-2020 influenza virus vaccine, unspecified formulation Nehemias Suarez PT, DPT Work Phone: [facility] 09-24-2006 Meningococcal, MCV4, unspecified conjugate formulation(groups A, C, Y and W-135) Yana Ziol TOWER TRUCK DRIVER.EXTRACTIONS TECHNICIAN Work Phone: [facility] 09-24-2006 tetanus toxoid, reduced diphtheria toxoid, and acellular pertussis vaccine, adsorbed Yana Ziol TOWER TRUCK DRIVER.EXTRACTIONS TECHNICIAN Work Phone: [facility] 10-25-2004 measles, mumps and rubella virus vaccine Yana Ziol TOWER TRUCK DRIVER.EXTRACTIONS TECHNICIAN Work Phone: [facility] 04-08-1999 Chicken Pox (disease) Yana Ziol TOWER TRUCK DRIVER.EXTRACTIONS TECHNICIAN Work Phone: [facility] Work Phone: 11-16-1997 diphtheria, tetanus toxoids and acellular pertussis vaccine Yana Ziol TOWER TRUCK DRIVER.EXTRACTIONS TECHNICIAN Work Phone: [facility] 11-16-1997 poliovirus vaccine, inactivated Yana Ziol TOWER TRUCK DRIVER.EXTRACTIONS TECHNICIAN Work Phone: [facility] 09-20-1993 diphtheria, tetanus toxoids and acellular pertussis vaccine Yana Ziol TOWER TRUCK DRIVER.EXTRACTIONS TECHNICIAN Work Phone: [facility] 09-20-1993 poliovirus vaccine, inactivated Ynaa Ziol TOWER TRUCK DRIVER.EXTRACTIONS TECHNICIAN Work Phone: [facility] 06-14-1993 haemophilus influenzae type b vaccine, HbOC conjugate Yana Ziol TOWER TRUCK DRIVER.EXTRACTIONS TECHNICIAN Work Phone: [facility] 06-14-1993 measles, mumps and rubella virus vaccine Yana Ziol TOWER TRUCK DRIVER.EXTRACTIONS TECHNICIAN Work Phone: [facility] 01-18-1993 hepatitis B vaccine, pediatric or pediatric/adolescent dosage Yana Ziol TOWER TRUCK DRIVER.EXTRACTIONS TECHNICIAN Work Phone: [facility] 1992 diphtheria, tetanus toxoids and acellular pertussis vaccine Yana Ziol TOWER TRUCK DRIVER.EXTRACTIONS TECHNICIAN Work Phone: [facility] 1992 haemophilus influenzae type b vaccine, HbOC conjugate Yana Ziol TOWER TRUCK DRIVER.EXTRACTIONS TECHNICIAN Work Phone: [facility] 1992 hepatitis B vaccine, pediatric or pediatric/adolescent dosage Yana Ziol TOWER TRUCK DRIVER.EXTRACTIONS TECHNICIAN Work Phone: [facility] 1992 diphtheria, tetanus toxoids and acellular pertussis vaccine Yana Ziol TOWER TRUCK DRIVER.EXTRACTIONS TECHNICIAN Work Phone: [facility] 1992 haemophilus influenzae type b vaccine, HbOC conjugate Yana Ziol TOWER TRUCK DRIVER.EXTRACTIONS TECHNICIAN Work Phone: [facility] 1992 poliovirus vaccine, inactivated Yana Ziol TOWER TRUCK DRIVER.EXTRACTIONS TECHNICIAN Work Phone: [facility] 1992 hepatitis B vaccine, pediatric or pediatric/adolescent dosage Yana Ziol TOWER TRUCK DRIVER.EXTRACTIONS TECHNICIAN Work Phone: [facility] 1992 diphtheria, tetanus toxoids and acellular pertussis vaccine Yana Ziol TOWER TRUCK DRIVER.EXTRACTIONS TECHNICIAN Work Phone: [facility] 1992 haemophilus influenzae type b vaccine, HbOC conjugate Yana Ziol TOWER TRUCK DRIVER.EXTRACTIONS TECHNICIAN Work Phone: [facility] 1992 poliovirus vaccine, inactivated Yana Ziol TOWER TRUCK DRIVER.EXTRACTIONS TECHNICIAN Work Phone: [facility] Payers Date Payer Category Payer Self-pay [id number] 2023 Unknown [id number] 2018 Private Health Insurance [facility] CHO[facility] PLUS [id number] 2018-Present [phone] [address] [place] [address] O [id number] 2018 Private Health Insurance [id number] .[id number] .[id number] 2018 Unknown [id number] 1992 Unknown [id number] 05.31.830.1.503217.3.579.2 .479 Unknown [id number] .1.507820.3.579.2 .462 Unknown [id number] 05.31.830.1.720011.3.579.2 .462 Unknown [id number] 05.31.830.1.959183.3.579.2 .462 Unknown [id number] .1.854723.3.579.2 .462 Unknown [id number] 2.16.840.1.281183.3.579.2 .462 Unknown [id number] 2.16.840.1.746884.3.579.2 .462 Unknown [id number] 2.16.840.1.428655.3.579.2 .462 Unknown [id number] 2.16840.1.225941.3.579.2 .462 Unknown [id number] 2.840.1.972670.3.579.2 .462 Unknown [id number] 2.840.1.994211.3.579.2 .462 Unknown [id number] 2.840.1.871574.3.579.2 .462 Unknown [id number] 2.840.1.633715.3.579.2 .462 Unknown [id number] 2.840.1.124561.3.579.2 .462 Unknown [id number] 2.840.1.406524.3.579.2 .462 Unknown [id number] 2.840.1.586769.3.579.2 .462 Unknown [id number] 2.840.1.978647.3.579.2 .462 Unknown [id number] 2.840.1.361187.3.579.2 .462 Unknown [id number] 2.840.1.173927.3.579.2 .462 Unknown [id number] 2.840.1.130760.3.579.2 .462 Unknown [id number] 2.840.1.818793.3.579.2 .462 Unknown [id number] 2.840.1.415530.3.579.2 .462 Unknown [id number] 2.840.1.731590.3.579.2 .462 Unknown [id number] 2.840.1.838304.3.579.2 .462 Unknown [id number] 2.16840.1.924320.3.579.2 .462 Unknown [id number] 2.16840.1.318270.3.579.2 .462 Unknown [id number] 2.16.840.1.540312.3.579.2 .462 Unknown [id number] 2.16840.1.083950.3.579.2 .462 Unknown [id number] 2.16840.1.670148.3.579.2 .462 Unknown [id number] 2.16840.1.951148.3.579.2 .462 Unknown [id number] 2.16840.1.559632.3.579.2 .462 Unknown [id number] 2.840.1.384694.3.579.2 .462 Unknown [id number] 2.840.1.132881.3.579.2 .462 Social History Date Type Detail Facility Tobacco smoking status [facility] Start: 06-12-2021 End: 08-15-2022 Sex Assigned At Female [facility] Start: 10-24-2015 End: 07-03-2024 Tobacco smoking status NHIS Ex-smoker [facility] End: 10-13-2013 History of tobacco use Current smoker [facility] End: 10-13-2013 History of tobacco use Cigarette Smoker [facility] Start: 10-24-2015 End: 08-15-2022 Cigarettes smoked current (pack per day) - Reported 0.8 [facility] Start: 10-24-2015 End: 12-06-2021 Tobacco use and exposure Smokeless tobacco non-user [facility] Start: 09-19-2021 End: 07-27-2023 Alcohol intake Current drinker of alcohol (finding) [facility] Start: 06-12-2021 History SDOH Alcohol Frequency 3 [facility] Start: 12-01-2019 End: 06-12-2021 History SDOH Alcohol Std Drinks 1 [facility] Start: 06-12-2021 History SDOH Alcohol Binge 2 [facility] Start: 10-31-2012 History SDOH Alcohol Comment occassionally - wine or mixed drink [facility] Start: 06-12-2021 History SDOH Social Connections Phone 5 [facility] Start: 06-12-2021 History SDOH Social Connections Meetings 98 [facility] Start: 06-12-2021 History SDOH Physical Activity DPW 0 [facility] Start: 06-12-2021 History SDOH Stress 4 [facility] Start: 11-30-[address] [facility] Start: 10-24-2015 End: 12-04-2021 Tobacco Comment sometimes does E-cig but not very often [facility] Start: 1990 Sex Assigned At Not on file [facility] Start: 09-09-2021 End: 03-19-2022 Exposure to SARS-CoV-2 (event) Not sure [facility] Start: 12-06-2021 History SDOH Alcohol Comment a glass of wine twice a week [facility] Start: 12-06-2021 Tobacco Comment Last e cig [address] [facility] Start: 10-02-2021 Tobacco smoking status NHIS Unknown if ever smoked [facility] Start: 1990 Sex Assigned At Female [facility] Do you belong to any clubs or organizations such as christian groups, unions, fraternal or athletic groups, or school groups? No [facility] How often do you att end meetings of the clubs or organizations you belong to? Patient refused [facility] Are you now , , , , never or living with a partner? [facility] How often to you hav e a drink containing alcohol? 2-[address] [facility] How many standard dr inks containing alcohol do you have on a typical day? [address] [facility] How often do you hav e 6 or more drinks on 1 occasion? Less than monthly [facility] How hard is it for y ou to pay for the very basics like food, housing, medical care, and heating Somewhat hard [facility] Do you feel stress - tense, restless, nervous, or anxious, or unable to sleep at night because your mind is troubled all the time - these days [OSQ] Rather much [facility] (I/We) worried singh er (my/our) food would run out before (I/we) got money to buy more. Never true [facility] Start: 06-26-2024 End: 07-23-2024 Sex Female (finding) [facility] Clinical Notes 09-14-2021 to 01-11-2025 Note Date & Type Note Facility 01-11-[address] [facility] 12-28-[address] [facility] 11-09-[address] [facility] 10-12-2024 Evaluation note Diagnosis Onset [...] Supervision of high-risk acute January 112024 10:15am [facility] Work Phone: 1(309) 790-660406-30-2025 Progress [facility] [address] [place] [address], [address] [place] [address] OFFICE VISIT Date of Service: 10/12/24 MR#: [id number] Acct: [id number] Name: HANNAH HENDRICKS Rep #: [id number] : 1990 Provider: Dr. Ramakrishna Marino MD Age/Sex: 34/F Location[place] [facility] Status: Signed Intake Vital Signs 07/20/24 13:59 09/14/24 08:59 10/12/24 15:54 Height 5 ft 6 in 5 ft 6 in 5 ft 6 in Weight: 195 lb 6 oz BMI 31.5 BP 119/75 Intake Visit Reasons: 21wk ob Geological Scout Required: No Is patient in pain?: No [...] current occupational status: employed current occupation: [employer] current occupational exposures/hazards: No pets and animals: [...] 3-4 times per week duration: 15-30 minutes/day agata/anabaptism: Methodist seatbelt use: always do you feel safe at home: Yes 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 Date Name GA/Weeks Outcome Route Bth Weight Gen Labor Lgth Anesthesia Del Locatn Provider FOB 08/11/20 Janie 39 live - full term 7lbs 8.5oz Female epidural [facility] Dr. Quang Samaniego 03/15/24 4 spontaneous Delivery [...] Signature: Date (if applicable) CC: ~ [facility]06-30-2025 Progress note Author Isabel Marino [facility] Note Date/Time October 12, 2024 4:21 pm [facility] [address] [place] [address], [address] [place] [address] OFFICE VISIT Date of Service: 10/12/24 MR#: [id number] Acct: [id number] Name: HANNAH HENDRICKS Rep #: [id number] : 1990 Provider: Dr. Ramakrishna Marino MD Age/Sex: 34/F Location[place] [facility] Status: Signed Intake Vital Signs 07/20/24 13:59 09/14/24 08:59 10/12/24 15:54 Height 5 ft 6 in 5 ft 6 in 5 ft 6 in Weight: 195 lb 6 oz BMI 31.5 BP 119/75 Intake Visit Reasons: 21wk ob Geological Scout Required: No Is patient in pain?: No [...] current occupational status: employed current occupation: [employer] current occupational exposures/hazards: No pets and animals: [...] 3-4 times per week duration: 15-30 minutes/day agata/anabaptism: [employer] seatbelt use: always do you feel safe at home: Yes 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 Date Name GA/Weeks Outcome Route Bth Weight Gen Labor Lgth Anesthesia Del Locatn Provider FOB 08/11/20 Janie 39 live - full term 7lbs 8.5oz Female epidural [facility] Dr. Quang Samaniego 03/15/24 4 spontaneous Delivery [...] Cosigner Signature: Date (if applicable) CC: ~ [facility] [employer] Work Phone: 1(133) 616-193706-02-2025 Evaluation note* Diagnosis Onset Date Resolution Status [...] 01, 025 8:08am Supervision of high-risk acute [place] 19th, 202 5 8:08am Anxiety acute December 15, 2024 9:19am acute December 15, 2024 9:19am Supervision of high-risk acute December 15 9:19am Anxiety acute December 9:42am acute December 9:42am Supervision of high-risk acute December 28, 2024 9:42am [facility] Work Phone: 1(480) 356-704606-02-2025 Progress [facility] [address] [place] [address], [address] [place] [address] OFFICE VISIT Date of Service: 09/14/24 MR#: [id number] Acct: [id number] Name: HANNAH HENDRICKS Rep #: [id number] : 1990 Provider: BART Mcghee Age/Sex: 34/F Location[place] [facility] Status: Signed Intake Vital Signs 07/20/24 13:59 08/17/24 08:32 09/14/24 08:59 Height 5 ft 6 in 5 ft 6 in 5 ft 6 in Weight: 190 lb 2 oz BMI 30.7 BP 106/71 Intake Visit Reasons: 17wk ob Chief Complaint: 17wk OB Geological Scout Required: No Is patient in pain?: No [...] current occupational status: employed current occupation: [employer] current occupational exposures/hazards: No pets and animals: [...] 3-4 times per week duration: 15-30 minutes/day agata/anabaptism: Methodist seatbelt use: always do you feel safe at home: Yes 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 Date Name GA/Weeks Outcome Route Bth Weight Infant Gen Labor Lgth Anesthesia Del Locatn Provider FOB 08/11/20 Janie 39 live - full term 7lbs 8.5oz Female epidural [facility] Dr. Quang Samaniego 03/15/24 4 spontaneous Delivery [...] Signature: Date (if applicable) CC: ~ [facility]05-05-2025 Evaluation note* Diagnosis Onset Date [...] Supervision of high-risk acute December 01 8:08am [facility] Work Phone: 1(631) 890-236805-05-2025 Evaluation note* Diagnosis Onset Date Resolution Status [...] Anxiety acute December 01, 025 8:08am acute [place] 19th, 2 025 8:08am Supervision of high-risk acute December 01 8:08am Anxiety acute December 15, 2024 9:19am acute December 15, 2024 9:19am Supervision of high-risk acute December 15, 025 9:19am [facility] Work Phone: 1(685) 894-654604-23-2025 Evaluation note* Diagnosis Onset Date Resolution Status [...] Supervision of high-risk acute December 01 8:08am [facility] Work Phone: [phone]) [phone] Evaluation note* Diagnosis Onset Date Resolution Status [...] high-risk acute September 14, 2024 8 :56am [facility] Work Phone: [phone] Evaluation note* Diagnosis Onset Date Resolution Status [...] Former smoker resolved October 12, 2024 3:50pm [facility] Work Phone: [phone] Evaluation note* Diagnosis Onset Date Resolution Status [...] of high-risk acute November 09, 2024 8:49am [facility] Work Phone: 1(794) 193-348103-20-2025 Radiology Diagnostic study note [facility] Services [address] [place] [address] [id number] Transvaginal w/Preg US MR#: [id number] Acct: [id number] Name: HANNAH HENDRICKS Rep #: [id number] : 1990 F 34 From: Mavis Yuan MD PCP: Dr. Thomas Salinas MD Status: REG CLI Study:Transvaginal w/Preg US Date of Exam: 07/02/24 Exam# [id number] Ordering Dr: Maryann Castaneda DO PROCEDURE: TRANSVAGINAL [...] 3. Additional description as above. Reading Location: [facility] CC: Dr. Maryann Bajwa DO; Dr. Thomas Salinas MD ~ Family Psychologist: Signed [facility]03-14-2025 Radiology Diagnostic study note [facility] Imaging Services [address] [place] [address] Transvaginal w/Preg US MR#: [id number] Acct: [id number] Name: HANNAH HENDRICKS Rep #: [id number] : 1990 F 34 From: Mavis Yuan MD PCP: Dr. Thomas Salinas MD Status: REG CLI Study:Transvaginal w/Preg US Date of Exam: 06/25/24 Exam# [id number] Ordering Dr: Maryann Castaneda DO PROCEDURE: TRANSVAGINAL [...] a tiny perigestational hemorrhage. Estimated delivery date (BALAIJ): 02/24/2025 by mean sac diameter. Uterus: 8.5 [...] 3. Additional description as above. Reading Location: [id number] CC: Dr. Maryann Bajwa DO; Dr. Thomas Salinas MD ~ Family Psychologist: Signed [facility]12-31-2024 Evaluation note* Diagnosis Onset Date Resolution Status Admit Date Spontaneous acute Dece [facility] 2023 1:50pm [facility] Work Phone: [phone]) 230-929412-31-2024 Evaluation note* Diagnosis Onset Date Resolution Status Admit Date Spontaneous inactive [facility] 2023 1:50pm [facility] Work Phone: 1(352) 713-960812-31-2024 Evaluation note* Diagnosis Onset Date Resolution Status Admit Date Spontaneous inactive [facility] 2023 1:50pm Former smoker acute July 20, 2024 1:53pm History of miscarriage, currently acute July 20 1:53pm acute July 20 1:53pm Supervision of high-risk acute July 20, 2024 1:53pm [facility] Work Phone: [phone]) 105-271204-13-2024 NoteHNO ID: [id number] Author: DIANA TREJO APRN.EXTRACTIONS TECHNICIAN Service: ? Author Type: Nurse Practitioner Type: Progress Notes Filed: 07/27/2023 12:13 Note Text: [facility] Care Visit Patient Name: Hannah Hendricks Primary Care Physician: Thomas Salinas MD Service Date: 07/27/2023 SUBJECTIVE: Hannah is an pleasant otherwise well 33 year old female who is here today accompanied by her Mom for evaluation of symptom(s)/complaint(s) as below. Presenting with concern of persistent diarrhea since 07/24/2023. Traveled for work recently to [place]. Had salmon Saturday evening upon arrival to [...] Hearing normal. Nose: Nose normal. Mouth/Throat: Lips: [place]. Mouth: Mucous membranes are moist. Pharynx: Oropharynx [...] hopeful improvement/resolution of symptoms (more content not included)...[facility]04-13-2024 History of Present illness Narrative* Diana Trejo APRN.EXTRACTIONS TECHNICIAN - 07/27/2023 11:51 AM EDT Images from the original note were not included. [facility] Patient Name: Hannah Hendricks Primary Care Physician: Thomas Salinas MD Service Date: 07/27/2023 SUBJECTIVE: Hannah is an pleasant otherwise well 33 year old female who is here today accompanied by her Mom for evaluation of symptom(s)/complaint(s) as below. Presenting with concern of persistent diarrhea since 07/24/2023. Traveled for work recently to [place]. Had salmon Saturday evening upon arrival to [...] Hearing normal. Nose: Nose normal. Mouth/Throat: Lips: [place]. Mouth: Mucous membranes are moist. Pharynx: Oropharynx [...] 07/27/2023 Time: 11:51 AM documented in this encounterSt. Charles Hospital04-13-2024 Instructions* Patient Instructions* Diana Trejo APRN.CNP - [...] new or worsening symptoms. documented in this encounterSt. Charles Hospital10-25-2023 NoteHNO ID: [id number] Author: Konstantin Kirkland MD Service: ? Author [...] Past Histories independently gathered by the clinical manager client support and the remaining scribed note accurately describes my personal service to the patient. The documentation for this note was completed by Grace Mojica acting as scribe for Konstantin Kirkland MD. February 06, 2023 8:50 AM. I agree with the operative note independently gathered by the clinical manager client support and the remaining scribed note accura (more content not included)...[facility] CenterGdagylkk98-29-0206 History of Present illness Narrative* Konstantin Kirkland [...] Past Histories independently gathered by the clinical manager client support and the remaining scribed note accurately describes my personal service to the patient. The documentation for this note was completed by Grace Mojica acting as scribe for Konstantin Kirkland MD. February 06, 2023 8:50 AM. I agree with the operative note independently gathered by the clinical manager client support and the remaining scribed note accurately describes my personal service to the patient. SIGNATURE: Konstantin Kirkland MD PATIENT NAME: Hannah Hendricks DATE: February 06, 2023 TIME: 8:49 AM PAGER: documented in this encounterSt. Charles Hospital09-18-2023 NoteHNO ID: [id number] Author: Nehemias Suarez, PT, DPT Service: ? [...] reviewed in detail this date to promote residential therapeutic gains. Patient was seen for 19 [...] > 2---Partially Achieved (R - not achieved) [place] in home exercise program.---Achieved Patient will decrease [...] states that sxs resolved with rest and point of care specialist. Pt states that sxs are located to [...] Stop Time : 183 Nehemias Suarez PT, [facility]09-18-2023 History of Present illness Narrative* Nehemias [...] reviewed in detail this date to promote residential therapeutic gains. Patient was seen for 19 [...] > 2---Partially Achieved (R - not achieved) [place] in home exercise program.---Achieved Patient will decrease [...] states that sxs resolved with rest and point of care specialist. Pt states that sxs are located to [...] Nehemias Suarez PT, DPT documented in this encounterSt. Charles Hospital08-16-2023 NoteHNO ID: [id number] Author: Nehemias Suarez PT, DPT Service: ? [...] > 2---Partially Achieved (R - not achieved) [place] in home exercise program.---Achieved Patient will decrease [...] Patient to be seen for Therapeutic exercise (83796), Neuromuscular re-education (10341), Manual therapy (14851), Therapeutic activities (03695), Self-jail management (06177), Patient/Family/Caregiver Education SUBJECTIVE: Pt states that she [...] and decrease pain. Utilized (more content not included)...[facility] HospitalOkjsinwg38-51-8079 History of Present illness Narrative* Nehemias Suarez, [...] > 2---Partially Achieved (R - not achieved) [place] in home exercise program.---Achieved Patient will decrease [...] Patient to be seen for Therapeutic exercise (51452), Neuromuscular re-education (17304), Manual therapy (29546), Therapeutic activities (45140), Self-jail management (32671), Patient/Family/Caregiver Education SUBJECTIVE: Pt states that she [...] Nehemias Suarez PT, DPT documented in this encounterSt. Charles Hospital07-12-2023 NoteHNO ID: [id number] Author: Nehemias Suarez PT DPT Service: ? [...] > 2---Partially Achieved (R - not achieved) [place] in home exercise program.---Achieved Patient will decrease [...] Patient to be seen for Therapeutic exercise (00667), Neuromuscular re-education (51857), Manual therapy (27120), Therapeutic activities (63913), Self-jail management (78367), Patient/Family/Caregiver Education SUBJECTIVE: Patient Reason for Visit: [...] review 11: *prone pr (more content not included)...[facility] HospitalYcihdslg87-82-5608 NoteHNO ID: [id number] Author: Nehemias Suarez PT, DPT Service: ? [...] ASLR to a score > 2---Not Achieved [place] in home exercise program.---Achieved Patient will decrease [...] Patient to be seen for Therapeutic exercise (85983), Neuromuscular re-education (79417), Manual therapy (38903), Therapeutic activities (52664), Self-jail management (82753), Patient/Family/Caregiver Education SUBJECTIVE: Patient Reason for Visit: [...] 8: *hamstring stretch, review (more content not included)...[facility] 09-12-2022 History of Present illness Narrative* [...] ASLR to a score > 2---Not Achieved [place] in home exercise program.---Achieved Patient will decrease [...] Patient to be seen for Therapeutic exercise (86604), Neuromuscular re-education (54381), Manual therapy (49033), Therapeutic activities (69312), Self-jail management (13404), Patient/Family/Caregiver Education SUBJECTIVE: Patient Reason for Visit: [...] Nehemias Suarez PT, DPT documented in this encounterSt. Charles Hospital05-17-2023 NoteHNO ID: [id number] Author: Juliano Urias PTA Service: ? Author Type: Supervisor Ride Assembly Type: Progress Notes Filed: 08/29/2022 6:46 PM [...] Total Treatment Time Minutes (timed/untimed): 38 Jul[facility]asWVUMed[facility] Miscellaneous Notes* Telephone Encounter - Italia Ackerman RN - 08/28/2022 9:44 AM EDT Will forward for review. documented in this encounterSt. Charles Hospital05-03-2023 NoteHNO ID: [id number] Author: Nehemias Suarez, PT, DPT Service: ? [...] ASLR to a score > 2---Partially Achieved [place] in home exercise program.---Achieved Patient will decrease [...] Patient to be seen for Therapeutic exercise (94811), Neuromuscular re-education (76935), Manual therapy (65395), Therapeutic activities (73150), Self-jail management (28435), Patient/Family/Caregiver Education SUBJECTIVE: Patient Reason for Visit: [...] review 5: *prone pre (more content not included)...[facility] HospitalAkqonazm07-76-0604 History of Present illness Narrative* Nehemias Suarez [...] ASLR to a score > 2---Partially Achieved [place] in home exercise program.---Achieved Patient will decrease [...] Patient to be seen for Therapeutic exercise (33915), Neuromuscular re-education (45805), Manual therapy (79574), Therapeutic activities (65797), Self-jail management (18910), Patient/Family/Caregiver Education SUBJECTIVE: Patient Reason for Visit: [...] Nehemias Suarez PT, DPT documented in this encounterSt. Charles Hospital04-17-2023 History of Present illness Narrative* Konstantin Kirkland [...] visit. Either the patient or their legal employee's representative has been informed of the risks and benefits of -- and alternatives to -- treatment through a remote evaluation andconsents to proceed with the evaluation remotely. SIGNATURE: Konstantin Kirkland MD PATIENT NAME: Hannah Hendricks DATE: July 30, 2022 TIME: 9:00 AM PAGER: documented in this encounterSt. Charles Hospital04-03-2023 NoteHNO ID: [id number] Author: Nehemias Suarez PT, DPT Service: ? [...] ASLR to a score > 2---Not Achieved [place] in home exercise program.---Achieved Patient will decrease [...] Patient to be seen for Therapeutic exercise (45161), Neuromuscular re-education (38028), Manual therapy (67163), Therapeutic activities (45331), Self-jail management (64987), Patient/Family/Caregiver Education SUBJECTIVE: Patient Reason for Visit: [...] Total Treatment Time [place] (more content not included)...[facility] 07-16-2022 History of Present illness Narrative* [...] ASLR to a score > 2---Not Achieved [place] in home exercise program.---Achieved Patient will decrease [...] Patient to be seen for Therapeutic exercise (60201), Neuromuscular re-education (45236), Manual therapy (57462), Therapeutic activities (92425), Self-jail management (04277), Patient/Family/Caregiver Education SUBJECTIVE: Patient Reason for Visit: [...] Nehemias Suarez PT DPJaime documented in this encounterSt. Charles Hospital03-27-2023 NoteHNO ID: [id number] Author: Nehemias Suarez PT, DPT Service: ? [...] inch step TREATMENT: Therapeutic Exercise: 1: arc market development trainer, L5, x 5 minutes, to increase [...] Time Minutes (timed/untimed): 41 Nehemias Suarez PT, [facility]03-27-2023 History of Present illness Narrative* Nehemias [...] inch step TREATMENT: Therapeutic Exercise: 1: arc market development trainer, L5, x 5 minutes, to increase [...] Nehemias Suarez PT, DPT documented in this encounterSt. Charles Hospital03-20-2023 NoteHNO ID: [id number] Author: Juliano Urias PTA Service: ? Author Type: Supervisor Ride Assembly Type: Progress Notes Filed: 07/02/2022 4:28 PM [...] Total Treatment Time Minutes (timed/untimed): 40 Juliano UriasWVUMed[facility]03-13-2023 NoteHNO ID: [id number] Author: Nehemias Suarez PT, DPT Service: ? [...] Time Minutes (timed/untimed): 40 Nehemias Suarez PT, DPTrinity Health System East CampusKnwhmjzv41-23-4832 History of Present illness Narrative* Nehemias Suarez [...] Nehemias Suarez PT, DPT documented in this encounterSt. Charles Hospital03-06-2023 NoteHNO ID: [id number] Author: Nehemias Suarez, PT, DPT Service: ? [...] ASLR to a score > 2---Not Achieved [place] in home exercise program.---Achieved Patient will decrease [...] Patient to be seen for Therapeutic exercise (18273), Neuromuscular re-education (62825), Manual therapy (43535), Therapeutic activities (92338), Self-jail management (11546), Patient/Family/Caregiver Education PLAN FOR NEXT VISIT: prone [...] with disability. 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 Functional Limitation Comments: sitting, bending [...] as above (*). Mk (more content not included)...[facility] HospitalJgksxbvp96-24-8660 NoteHNO ID: [id number] Author: Juliano Urias PTA Service: ? Author Type: Supervisor Ride Assembly Type: Progress Notes Filed: 06/11/2022 4:28 PM [...] Treatment Time Minutes (timed/untimed): 40 Juliano Urias PTACleveland Clinic Euclid HospitalFnqmgzbm66-31-2613 History of Present illness Narrative* Juliano Urias PTA - 06/11/2022 12:19 PM EST Episode Visit Count: 8 Therapist That Will Accept/Oversee The Plan Of Care: Nehemias Suraez Start of Care Date: 04/20/22 Onset Date: [...] 40 Juliano Urias PTA documented in this encounterSt. Charles Hospital02-20-2023 NoteHNO ID: [id number] Author: Juliano Urias PTA Service: ? Author Type: Supervisor Ride Assembly Type: Progress Notes Filed: 06/04/2022 4:43 PM [...] is concerned regarding numbness in right thigh. MASTER OF CEREMONIES educated patient that numbness is common after [...] Treatment Time Minutes (timed/untimed): 50 Juliano Urias [facility]02-15-2023 NoteHNO ID: [id number] Author: Nehemias Suarez, PT, DPT Service: ? [...] Time Minutes (timed/untimed): 46 Nehemias Suarez PT, [facility]02-15-2023 History of Present illness Narrative* Nehemias [...] Nehemias Suarez PT, DPT documented in this encounterSt. Charles Hospital02-13-2023 NoteHNO ID: [id number] Author: Sheela Glover RN Service: ? Author Type: Registered Nurse Type: Progress Notes Filed: 05/28/2022 6:21 PM Note Text: I was able to connect with pt via phone call and explained that the fax is not going through. She will look for another fax number, but also can see the copy of the letter in her Pageflakeshart.[facility] CenterSuyynnzz44-11-6636 NoteHNO ID: [id number] Author: Sheela Glover RN Service: ? Author Type: Registered Nurse Type: Progress Notes Filed: 05/28/2022 6:21 PM Note Text: RTW letter created and Uploaded to [employer]. The number the pt provided ([phone]) does not work. Also after Googling her employer and finding another local fax number ([phone]), that also did not work. I called pt 3 times and left a message with no reply.[facility] CenterPnwrnyoh39-22-7137 NoteHNO ID: [id number] Author: Konstantin Kirkland MD Service: ? Author Type: Physician Type: Progress Notes Filed: 05/28/2022 6:21 PM Note Text: [phone] 05/30 No restrictionsFaMiddlesex County HospitalEhgfvmob45-28-4845 NoteHNO ID: [id number] Author: Konstantin Kirkland MD Service: ? Author Type: Physician Type: Progress Notes Filed: 05/28/2022 6:32 PM Note Text: SPINE SURGERY FOLLOW UP This is a virtual visit using [employer] video visit. It required patient-provider interaction for [...] MD on May 28, 2022 at 2:05 PM.[facility] CenterMofttsgs35-51-5421 NoteHNO ID: [id number] Author: Nehemias Suarez PT, DPT Service: ? [...] ASLR to a score > 2---Not Achieved [place] in home exercise program.---Achieved Patient will decrease [...] Patient to be seen for Therapeutic exercise (91926), Neuromuscular re-education (49844), Manual therapy (13819), Therapeutic activities (33058), Self-jail management (88236), Patient/Family/Caregiver Education PLAN FOR NEXT VISIT: update to [facility] SUBJECTIVE: Patient Reason for Visit: Pt [...] SLR Flexibility: passive ~50 (more content not included)...[facility] HospitalYhfrdgkp10-86-1148 History of Present illness Narrative* Nehemias Suarez [...] ASLR to a score > 2---Not Achieved [place] in home exercise program.---Achieved Patient will decrease [...] Patient to be seen for Therapeutic exercise (58799), Neuromuscular re-education (63950), Manual therapy (48443), Therapeutic activities (75299), Self-jail management (41836), Patient/Family/Caregiver Education PLAN FOR NEXT VISIT: update to [facility] SUBJECTIVE: Patient Reason for Visit: Pt [...] to challenge endurance/core strength 3: *posterior chain facilities administrator, supine, review 4: *hip ABD iso, review [...] Nehemias Suarez PT, DPT documented in this encounterSt. Charles Hospital01-23-2023 Miscellaneous Notes* Telephone Encounter - Italia Ackerman RN - 05/07/2022 3:07 PM EST Will forward for review. documented in this encounterSt. Charles Hospital01-23-2023 History of Present illness Narrative* Juliano Urias [...] 48 Juliano Urias PTA documented in this encounterSt. Charles Hospital01-16-2023 History of Present illness Narrative* Juliano Urias [...] 45 Juliano Urias PTA documented in this encounterSt. Charles Hospital01-11-2023 NoteHNO ID: [id number] Author: Konstantin Kirkland MD Service: ? Author [...] severe depression 20-27 Severe depression PHYSICAL EXAM: [facility] 03/14/2022 (Approximate) LIMITED DUE TO VIRTUAL [...] DATE: April 24, 2022 TIME: 3:15 PM PAGER:[facility] CenterQbrdhkey90-74-7534 History of Present illness Narrative* Konstantin Kirkland [...] TIME: 3:15 PM PAGER: documented in this encounterSt. Charles Hospital01-06-2023 History of Present illness Narrative* Nehemias Suarez [...] FMS ASLR to a score > 2 [place] in home exercise program. Patient will decrease pain rating by 2 points to meet minimal clinical important difference for numeric pain rating scale. Patient Goals: decrease pain, improve posteiror chain extensibiltiy Planned Interventions, Frequency, and Duration: Current Frequency: 2x/week Duration: 4 weeks Total Number of Visits Planned: 8 Planned Treatment Interventions: Therapeutic exercise (84096);Neuromuscular re- education (32654);Manual therapy (07867);Therapeutic activities (76660);Self- jail management (89845);Patient/Family/Caregiver Education Patient demonstrates good understanding of plan [...] bending overand pulling weeds. Pt initially utilized point of care specialist which did not resolve sxs. Pt then [...] Nehemias Suarez PT, DPT documented in this encounterSt. Charles Hospital12-23-2022 NoteHNO ID: [id number] Author: Konstantin Kirkland MD Service: ? Author [...] DATE: April 06, 2022 TIME: 6:35 AM PAGER:[facility] CenterUezwykcm02-49-6276 History of Present illness Narrative* Konstantin Kirkland [...] TIME: 6:35 AM PAGER: documented in this encounterSt. Charles Hospital12-15-2022 Miscellaneous Notes* Telephone Encounter - Kelsy Waterman [...] last week. Please call to advise at [phone]. documented in this encounterSt. Charles Hospital12-06-2022 NoteHNO ID: [id number] Author: Alexandra Lombardo APRN.HOG MAN Service: Anesthesiology Author Type: Nurse Scruff Worker Type: Anesthesia Procedure Notes Filed: 03/20/2022 12:35 PM Note Text: ANESTHESIOLOGY PROCEDURE NOTE Airway General Information Procedure Start Time/Medication Administration: 03/20/2022 12:17 PM Patient location during procedure: OR Timeout Performed Pre-procedure: timeout performed Patient identity confirmed: arm band, care team guide and patient Staffing Anesthesiologist: Mark Chavez MD HOG MAN: Alexandra Lombardo APRN.HOG MAN Performed by: GINA Indications and Patient Condition [...] attempts at approach: 1 SIGNATURE: Alexandra Lombardo APRN.HOG MAN PATIENT NAME: Hannah Hendricks DATE: March 20, 2022 TIME: 12:35 PM CSN: [id number] Instructions* Patient Instructions* Agnes Matthews PA-C - 03/19/2022 1:02 PM EST PATIENT PREOPERATIVE INSTRUCTIONS Konstantin Kirkland MD has scheduled you for your procedure at this surgery center: [facility]: [phone] --[address] [place] [address]. On your scheduled day of surgery, please [...] Procedures: - YOU MUST HAVE A RESPONSIBLE FEATHER CURLING MACHINE OPERATOR TAKE YOU HOME. A MOBILE MARKETING MANAGER OR JITTERBUG OPERATOR CANNOT BE MADE A RESPONSIBLE FEATHER CURLING MACHINE OPERATOR. - We recommend that a responsible person [...] Advance Directive, please fax a copy to [phone] or email to for it to be [...] day. Agnes Matthews PA-C documented in this encounterSt. Charles Hospital12-05-2022 History and physical note * Agnes Matthews [...] fevers. Neurological: No history of TIA's, stroke, ART PREPARATOR tumor, impaired sensorium, hemiplegia, paraplegia orquadraplegia. No neurological symptoms or problems. Respiratory: No history of current cough or dyspnea, or pneumonia in the past 6 weeks. No history of respiratory/pulmonary symptoms or problems. Cardiovascular: No history of HTN requiring medication, no history of angina, CHF, NC, cardiac surgery or stents. Denies rest pain, [...] 422 QTC Calculation (Bazett) 431 Calculated P [place] -8 Calculated R [place] 79 Calculated T [place] 49 Impression NORMAL SINUS RHYTHM RSR' OR QR PATTERN IN V1 SUGGESTS RIGHT VENTRICULAR CONDUCTION DELAY BORDERLINE ECG no STEMI Confirmed by MD GALINDO STEVEN ([id number]), desk editor ROSEMARY MALDONADO ([id number]) on 11/16/2021 6:44:48 AM No results found for this or any previous visit (from the past 85508 hour(s)). Assessment Electronic cigarette use Assessment: occasional [...] large neck Non-male patient STOP-Bang Score: 0 [id number] Score: Age: <65 Sex: female [id number] Score: 1 ARISCAT Score: Age: <=50 ARISCAT [...] 12:35 PM PAGER/CONTACT #: documented in this encounterSt. Charles Hospital12-02-2022 Miscellaneous Notes* Telephone Encounter - Italia Ackerman RN - 03/16/2022 3:37 PM EST Answered question when patient was being scheduled for PAT. * Telephone Encounter - Karen Long - 03/16/2022 3:33 PM EST Patient at [phone] is requesting a call back. She has another question about medication. * Telephone Encounter - Italia Ackerman RN - 03/16/2022 2:[address] Kirkland spoke with patient. Will be having surgery on 03/20/22. * Telephone Encounter - Italia Ackerman RN - 03/16/2022 2:08 PM EST Will forward for review. * Telephone Encounter - Karen Long - 03/16/2022 1:32 PM EST Patient at [phone] is requesting a call back Re: MRI results. She is quite upset. documented in this encounterSt. Charles Hospital12-02-2022 History of Present illness Narrative* Viola Martínez, [...] 16, 2022 8:35 AM documented in this encounterSt. Charles Hospital12-01-2022 Miscellaneous Notes* Telephone Encounter - Britt Moreno - 2022 10:11 AM EST Physician: Dr Kirkland Call from patient requesting refill. Please E-Scribe Last OV: 03/05/22 with Asif Future OV: 05/17/22 with Asif Requested Prescriptions Pending Prescriptions Disp Refills methocarbamol (ROBAXIN-750) 750 mg tablet 40 tablet 0 Sig: Take 1 tablet by mouth three times daily as needed. Pharmacy Name: [facility] Phone #: [phone] Britt Louie [facility] documented in this encounterSt. Charles Hospital11-28-2022 Miscellaneous Notes* Telephone Encounter - Kelsy Waterman [...] 9:10 AM EST Patient called yesterday to radio communications mechanician provider. Will forward for review. * Telephone Encounter - Darlene Sherman - 03/12/2022 8:33 AM EST Patients first day working and states she is in extreme pain, feels she cannot take it, the top of her right leg and her lower back is stiff, states pain is 7 out of 10. Please call patient at [phone] documented in this encounterSt. Charles Hospital11-27-2022 Miscellaneous Notes* Plan of Care - Adelso [...] Adelso Kelly MD PGY-2, Neurological Surgery Pager: [phone] Neurosurgery radio communications mechanician: 7:15 PM 03/11/22 CURRENT OVERNIGHT RESIDENT Please page [phone] between 6:30 AM and 6:00PM documented in this encounterSt. Charles Hospital11-27-2022 Miscellaneous Notes* Telephone Encounter - Ximena Lewis RN - 03/11/2022 6:29 PM EST Patient calling regarding back surgery. Conferenced to [facility] foundation drill operator helper, Emili, to speak with provider radio communications mechanician for Dr. Kirkland at phone number ( - - ). documented in this encounterSt. [facility]11-21-2022 History of Present illness Narrative* Konstantin Kirkland [...] TIME: 8:55 AM PAGER: documented in this encounterSt. Charles Hospital11-07-2022 Miscellaneous Notes* Telephone Encounter - Kelsy Waterman RN - 02/19/2022 10:40 AM EST Called [facility]. Per pharmacist pt was not able to picking machine operator helper prescription; was too soon for picking machine operator helper but able to picking machine operator helper today. Call placed to patient to update. Verbalizes understanding. * Telephone Encounter - Britt Louie Pss - 02/19/2022 10:20 AM EST The patient called stating when she went to [facility] to picking machine operator helper the Robaxin, the pharmacy told her that it was cancelled by our office the same day they received it. Please call patient to advise at [phone] documented in this encounterSt. Charles Hospital10-25-2022 History of Present illness Narrative* Konstantin Kirkland [...] TIME: 7:02 AM PAGER: documented in this encounterSt. Charles Hospital10-24-2022 Miscellaneous Notes* Telephone Encounter - Italia Ackerman RN - 02/05/2022 1:37 PM EDT Work extension paperwork received, completed and faxed to number requested. Faxed verification received. documented in this encounterSt. Charles Hospital10-19-2022 Miscellaneous Notes* Telephone Encounter - Radha [...] on 12/19/21. Please call to advise at [phone] documented in this encounterSt. Charles Hospital10-11-2022 Miscellaneous Notes* Telephone Encounter - Italia Ackerman RN - 01/23/2022 9:34 AM EDT Letter faxed to number requested. Faxed verification received. documented in this encounterSt. Charles Hospital09-07-2022 Miscellaneous Notes* Telephone Encounter - Radha [...] Patient would appreciate a call back at [phone]. documented in this encounterSt. Charles Hospital09-06-2022 NoteHNO ID: [id number] Author: BRENNON Ma Service: Anesthesiology Author Type: Medical Record Coder Type: Anesthesia Procedure Notes Filed: 12/19/2021 8:02 [...] December 19, 2021 TIME: 8:01 AM CSN: [id number] Miscellaneous Notes* Telephone Encounter - Maryann Matthews - 12/12/2021 3:26 PM EDT Short term disability paperwork has been sent to scanning. Date of service 04/15/21 documented in this encounterSt. Charles Hospital08-29-2022 Miscellaneous Notes* Telephone Encounter - Ashwini Cadet [...] reflecting the increase dosage documented in this encounterSt. Charles Hospital08-25-2022 Miscellaneous Notes* Telephone Encounter - Italia Ackerman RN - 12/07/2021 3:50 PM EDT Note faxed as requested. Faxed verification received. * Telephone Encounter - Susie Myles - 12/07/2021 2:58 PM EDT Ankush from [facility] calling to get clinicals from neurosurgeon, saying he needs them to complete the prior auth for surgery. States that if he does not have them within 30 - 40 minutes, that the case will be closed and a new prior authorization would need to be completed. Ph. [phone] fax [phone] documented in this encounterSt. Charles Hospital08-25-2022 History of Present illness Narrative* Konstantin Kirkland MD - 12/07/2021 3:03 PM EDT Images from the original note were not included. SPINE SURGERY NEW PATIENT PCP: Yana Ballard APRN.EXTRACTIONS TECHNICIAN REFERRING PROVIDER: Dr. Feng Wright SUBJECTIVE HISTORY [...] TIME: 3:03 PM PAGER: documented in this encounterSt. Charles Hospital08-24-2022 History and physical note * Barbara James APRN.MANDEEP - 12/06/2021 1:50 PM EDT HISTORY AND PHYSICAL EXAMINATION SERVICE DATE: 12/06/2021 SERVICE TIME: 2:00 PM PRIMARY CARE PHYSICIAN: Yana Ballard APRN.EXTRACTIONS TECHNICIAN REASON FOR VISIT: Hannah Hendricks is a [...] fevers. Neuro: No history of TIA's, stroke, ART PREPARATOR tumor, impaired sensorium, hemiplegia, paraplegia or quadraplegia. No neurological symptoms or problems. Respiratory: No history of current cough or dyspnea, or pneumonia in the past 6 weeks. No history of respiratory/pulmonary symptoms or problems. Cardiovascular: No history of HTN requiring medication, no history of angina, CHF, NC, cardiac surgery or stents. Denies rest pain, gangrene or revascularization/amputation for PVD. No history of cardiovascular symptoms or problems. GI: No history of GI symptoms or problems. No history of esophageal varices, recent ascites, or ETOH greater than 2 drinks per day. 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 Charles Hospital08-24-2022 Instructions* Patient Instructions* Barbara James APRN.CNP - 12/06/2021 7:49 AM EDT PATIENT PREOPERATIVE INSTRUCTIONS Konstantin Kirkland MD has scheduled you for your procedure at this surgery center: [facility]: [phone] --[address] [place] [address]. On your scheduled day of surgery, please [...] Procedures: - YOU MUST HAVE A RESPONSIBLE FEATHER CURLING MACHINE OPERATOR TAKE YOU HOME. A MOBILE MARKETING MANAGER OR JITTERBUG OPERATOR CANNOT BE MADE A RESPONSIBLE FEATHER CURLING MACHINE OPERATOR. - We recommend that a responsible person [...] Advance Directive, please fax a copy to [phone] or email to for it to be [...] your chart that day. documented in this encounterSt. Charles Hospital08-22-2022 Nurse Note* Italia Ackerman RN - 12/04/2021 3:50 PM EDT Neuro SPINE CARE COORDINATION PRE-OP VISIT Met with patient and family member for pre op education. Given both written and verbal instructionsre : Skin prep, wound care, pain management and post op restrictions. Provided to patient: [facility] Guide, skin prep supplies, Spine Surgery Pre/post op education packet. Yes. Reviewed with patient to report to the registration desk for surgery? Yes. Reviewed with the patient that a surgery major account representative will call the working day [...] lab work : to be completed at [facility]. Questions answered. Patient verbalizes understanding via teach back. Additional comments : Informed to call with any questions or concerns. Italia Ackerman RN documented in this encounterSt. Charles Hospital08-22-2022 History of Present illness Narrative* Ashwini Cadet, OPAL.[facility] - 12/04/2021 11:32 AM EDT VIRTUAL VISIT PROGRESS NOTE This is a virtual visit using Seratis video visit. It required patient-provider interaction for [...] and she has been eating bananas and nvjjowldcl-hoi-ihuqrej. She is not sure if she should be on prescription strength and has reached out to her PCP She reports walking decreases her pain but she is still experiencing the pins and needles She reports throbbing in the low back and right buttocks She has been using a "comfy cushion" she purchased from [employer] She has an appt today with Dr. Kirkland. PLAN: Appt with Dr. Kirkland today Trying to stretch Continue gabapentin and robaxin as needed 4. Follow up to be determined There are no Patient Instructions on file for this visit. I spent a total of 20 minutes on the date of the service which included preparing to see the patient, hafa-my-oxxr patient care, and completing clinical documentation Ashwini Cadet APRN.CNP documented in this encounterSt. Charles Hospital08-12-2022 Miscellaneous Notes* Telephone Encounter - Ashwini Cadet APRN.CNP - 11/24/2021 3:25 PM EDT Paperwork completed * Telephone Encounter - Kristan Castellano Ma - 11/23/2021 10:30 AM EDT STD paperwork received via fax. Please allow 7-10 business days for completion. Forwarded to provider for review. documented in this encounterSt. Charles Hospital08-10-2022 History of Present illness Narrative* Ashwini Cadet APRN.CNP - 11/22/2021 10:05 AM EDT VIRTUAL VISIT PROGRESS NOTE This is a virtual visit using Seratis video visit. It required patient-provider interaction for [...] right posterior lower extremity She is experiencing cdpt-vbf-vsmgolq and tingling in the right leg and [...] which included preparing to see the patient, kgth-pa-cime patient care, and completing clinical documentation Ashwini Cadet APRN.CNP documented in this encounterSt. Charles Hospital08-05-2022 History of Present illness Narrative* Ashwini Cadet APRN.CNP - 11/17/2021 9:42 AM EDT VIRTUAL VISIT PROGRESS NOTE This is a virtual visit using Seratis video visit. It required patient-provider interaction for [...] called 911 and was transported to the [place] ER. While in the ER she was [...] to spine surgery consult Discussed sending a Seratis message in a week to report how [...] which included preparing to see the patient, jqyg-nu-hjqn patient care, completing clinical documentation and ordering medications, tests, or procedures Ashwini Cadet APRN.MANDEEP documented in this encounterSt. Charles Hospital08-04-2022 Miscellaneous Notes* Telephone Encounter - Elli South [...] about that change. Patient also advised the [employer] provider placed a referral for the patient to see a Spinal Surgeon and that she should be receiving a call today to schedule that consult. Please advise, Elli South documented in this encounterSt. Charles Hospital08-03-2022 History of Present illness Narrative* Dulce Wong APRN.MANDEEP - 11/15/2021 6:38 PM EDT Images from the original note were not included. [employer] November 15, 2021 Hannah Hendricks 1990 [...] Dulce Wong APRN.CNP Telemedicine documented in this encounterSt. Charles Hospital07-25-2022 Miscellaneous Notes* Telephone Encounter - Yana Ballard [...] Triplett, et al. 2017 Guidelines of the [place] Thyroid Association for the Diagnosis and Management of Thyroid Disease during and the . Thyroid, 2017:27:3:315-389. Pharmacy has been captured: Yes. Patient prefers: [facility]. documented in this encounterSt. Charles Hospital07-21-2022 Miscellaneous Notes* Telephone Encounter - Alma Bello APRN.CNP - 11/02/2021 1:28 PM EDT Entered in error documented in this encounterSt. Charles Hospital06-29-2022 History of Present illness Narrative* Feng Wright MD - 10/11/2021 9:21 AM EDT [facility] Pain Management Department Date: October 11, [...] Panel: No results found for: UQCANN, UQBNZL, WYU4VCP, UQAMPH, UQMAMP, UQBUPRE, UQNORBUP, UQMTHD, UQEDDP, UQTRAM, [...] diagnostic tests reviewed for today's visit: The [facility] EMR was reviewed during thevisit IMAGING STUDIES: [...] but also diagnostic information that procedures provide. long term care social worker use of any opioid pain medication is [...] October 11, 2021 cc: Yana Ballard [id number] [facility] [id number] [facility] [id number] Results of consultation to be transmitted via electronic medical record for those providers who practice within [facility] or with access to [employer] via MD Connect, or via letter. documented in this encounterSt. Charles Hospital06-28-2022 Miscellaneous Notes* Telephone Encounter - Melania Chinchilla - 10/10/2021 10:50 AM EDT Patient was scheduled for 10/11/21 with pain management. No further action needed. Melania Chinchilla * Telephone Encounter - Yana Ballard APRN.CNP - 10/10/2021 6:53 AM EDT Please assist patient with scheduling in pain management. Dr. Santiago is preferred if appt available upcoming. Thank you. documented in this encounterSt. Charles Hospital06-25-2022 Miscellaneous Notes* Telephone Encounter - Yana Ballard [...] Triplett et al. 2017 Guidelines of the Citizen [place] Thyroid Association for the Diagnosis and Management of Thyroid Disease during and the . Thyroid, 2017:27:3:315-389. Pharmacy has been captured: Yes. Patient prefers: [facility] Sp[facility] Ma documented in this encounterSt. Charles Hospital06-25-2022 Miscellaneous Notes* Telephone Encounter - Yana Ballard [...] is she feeling currently? documented in this encounterSt. Charles Hospital06-23-2022 History of Present illness Narrative* Viola Martínez, [...] 05, 2021 6:27 PM documented in this encounterSt. Charles Hospital06-07-2022 History of Present illness Narrative* Yana Ballard, TOWER TRUCK DRIVER.EXTRACTIONS TECHNICIAN - 09/19/2021 10:40 AM EDT HPI: Hannah [...] which included preparing to see the patient, udgp-qd-pfii patient care, completing clinical documentation, obtaining and/or reviewing separately obtained history, performing a medically appropriate examination, counseling and educating the pat ient/family/caregiver and ordering medications, tests, or procedures. Yana Ballard APRN.MANDEEP documented in this encounterSt. Charles Hospital06-02-2022 Hospital Discharge instructions Patient Education 09/13/2021 23:57:30 Back Exercises, Tnfn-pp-Oncl Back Exercises These exercises help to make [...] 05/04/2011 Document Revised: 12/25/2018 Document Reviewed: 12/25/2018 [employer] Patient Education Speak With Me. Follow Up Care 09/13/2021 20:31:41 With:Santana Vidal Address: [address] [place] [id number] Business (1) When:09/16/2021 Comments:Take the prednisone daily until you have completed the course you can use the Robaxin, Sherman as prescribed as needed for pain. Use lidocaine patch daily. Please follow-up with your primary care doctor and orthopedic for further evaluation management. With:Severiano Wallace Address: [address] [place] [id number] Business (1) When:Within 3 Day(s) [facility] No data available for this section [facility] note* Diagnosis Spinal stenosis of lumbar region without neurogenic claudication Spinal stenosis, lumbar region, without neurogenic claudication [facility]* Diagnosis Spinal stenosis of lumbar region without neurogenic claudication Spinal stenosis, lumbar region, without neurogenic claudication [facility]* Diagnosis Lumbar disc herniation- Primary Displacement of lumbar intervertebral disc without myelopathy [facility] Diagnosis Spinal stenosis of lumbar region without neurogenic claudication Spinal stenosis, lumbar region, without neurogenic claudication [facility]* Diagnosis Radiculopathy, lumbar region- Primary Thoracic or lumbosacral neuritis or radiculitis, unspecified Lumbar disc herniation Displacement of lumbar intervertebral disc without myelopathy [facility]* Diagnosis Lumbar disc herniation- Primary Displacement of lumbar intervertebral disc without myelopathy Radiculopathy, lumbar region Thoracic or lumbosacral neuritis or radiculitis, unspecified documented [facility] encounter [facility]* Diagnosis Spinal stenosis of lumbar region without neurogenic claudication Spinal stenosis, lumbar region, without neurogenic claudication [facility]* Diagnosis Treatment not available- Primary Procedure not carried out for other reasons [facility]* Diagnosis Hypokalemia- Primary Hypopotassemia Hypomagnesemia Disorders of magnesium metabolism [facility]* Diagnosis Lumbar disc herniation- Primary Displacement of lumbar intervertebral disc without myelopathy Radiculopathy, lumbar region Thoracic or lumbosacral neuritis or radiculitis, unspecified documented [facility] encounter [facility]* Diagnosis Lumbar disc herniation- Primary Displacement of lumbar intervertebral disc without myelopathy Radiculopathy, lumbar region Thoracic or lumbosacral neuritis or radiculitis, unspecified Hypokalemia Hypopotassemia Hypomagnesemia Disorders of magnesium metabolism documented [facility] encounter [facility]* Diagnosis Lumbar disc herniation- Primary Displacement of lumbar intervertebral disc without myelopathy Radiculopathy, lumbar region Thoracic or lumbosacral neuritis or radiculitis, unspecified [facility]* Diagnosis Hypokalemia- Primary Hypopotassemia Hypomagnesemia Disorders of magnesium metabolism documented [facility]* Diagnosis Pre-op testing- Primary Preoperative examination, unspecified Lumbar disc herniation Displacement of lumbar intervertebral disc without myelopathy Radiculopathy, lumbar region Thoracic or lumbosacral neuritis or radiculitis, unspecified Lumbar disc herniation Displacement of lumbar intervertebral disc without myelopathy Radiculopathy, lumbar region Thoracic or lumbosacral neuritis or radiculitis, unspecified documented [facility] encounter [facility]* Diagnosis Pre-op evaluation- Primary Preoperative examination, unspecified Lumbar disc herniation Displacement of lumbar intervertebral disc without myelopathy Known health problems: none Lumbar disc herniation Displacement of lumbar intervertebral disc without myelopathy Radiculopathy, lumbar region Thoracic or lumbosacral neuritis or radiculitis, unspecified [facility]* Diagnosis Radiculopathy, lumbar region- Primary Thoracic or lumbosacral neuritis or radiculitis, unspecified Lumbar disc herniation Displacement of lumbar intervertebral disc without myelopathy Radiculopathy, lumbar region Thoracic or lumbosacral neuritis or radiculitis, unspecified [facility]* Diagnosis Lumbar herniated disc- Primary Displacement of lumbar intervertebral disc without myelopathy [facility]* Diagnosis Lumbar radiculopathy- Primary Thoracic or lumbosacral neuritis or radiculitis, unspecified [facility]* Diagnosis Spinal stenosis of lumbar region with neurogenic claudication- Primary Spinal stenosis, lumbar region, with neurogenic claudication [facility]* Diagnosis Pre-op testing- Primary Preoperative examination, unspecified Spinal stenosis of lumbar region with neurogenic claudication Spinal stenosis, lumbar region, with neurogenic claudication Spinal stenosis of lumbar region with neurogenic claudication Spinal stenosis, lumbar region, with neurogenic claudication [facility]* Diagnosis Spinal stenosis of lumbar region with neurogenic claudication Spinal stenosis, lumbar region, with neurogenic claudication Spinal stenosis of lumbar region with neurogenic claudication Spinal stenosis, lumbar region, with neurogenic claudication [facility]* Diagnosis Pre-op evaluation- Primary Preoperative examination, unspecified Pre-op testing Preoperative examination, unspecified Electronic cigarette use Spinal stenosis of lumbar region with neurogenic claudication Spinal stenosis, lumbar region, with neurogenic claudication [facility]* Diagnosis Radiculopathy, lumbar region- Primary Thoracic or lumbosacral neuritis or radiculitis, unspecified [facility]* Diagnosis Radiculopathy, lumbar region Thoracic or lumbosacral neuritis or radiculitis, unspecified Chronic bilateral low back pain with right-sided sciatica [facility]* Diagnosis Radiculopathy, lumbar region- Primary Thoracic or lumbosacral neuritis or radiculitis, unspecified [facility]* Diagnosis Chronic bilateral low back pain with right-sided sciatica- Primary [facility]* Diagnosis Chronic bilateral low back pain with right-sided sciatica- Primary [facility]* Diagnosis Chronic bilateral low back pain with right-sided sciatica- Primary documented [facility]* Diagnosis Chronic bilateral low back pain with right-sided sciatica- Primary [facility]* Diagnosis Chronic bilateral low back pain with right-sided sciatica- Primary documented [facility] noteNo assessment information availableWKindred Hospital Dayton Work Phone: Evaluation note* Diagnosis Radiculopathy, lumbar region- Primary Thoracic or lumbosacral neuritis or radiculitis, unspecified [facility]* Diagnosis Chronic bilateral low back pain with right-sided sciatica- Primary documented [facility] encounter [facility]* Diagnosis Chronic bilateral low back pain with right-sided sciatica- Primary documented [facility]* Diagnosis Radiculopathy, lumbar region- Primary Thoracic or lumbosacral neuritis or radiculitis, unspecified Spinal stenosis of lumbar region with neurogenic claudication Spinal stenosis, lumbar region, with neurogenic claudication documented [facility]* Diagnosis Spinal stenosis of lumbar region with neurogenic claudication Spinal stenosis, lumbar region, with neurogenic claudication [facility]* Diagnosis Diarrhea, unspecified type- Primary [facility] HospitalProgress note Author Ximena Mcghee [facility] Note Date/Time September 14, 2024 9:34a m [facility] [address], [address] [place] [address] OFFICE VISIT Date of Service: 09/14/24 MR#: [id number] Acct: [id number] Name: HANNAH HENDRICKS Rep #: [id number] : 1990 Provider: BART Mcghee Age/Sex: 34/F [place] [facility] [place]: Signed Intake Vital Signs 07/20/24 13:59 08/17/24 08:32 09/14/24 08:59 Height 5 ft 6 in 5 ft 6 in 5 ft 6 in Weight: 190 lb 2 oz BMI 30.7 BP 106/71 Intake Visit Reasons: 17wk ob Chief Complaint: 17wk OB 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 Date Name GA/Weeks Outcome Route Bth Weight Infant Gen Labor Lgth Anesthesia Del Locatn Provider FOB 08/11/20 Janie 39 live - full term 7lbs 8.5oz Female epidural [facility] Dr. Quang Samaniego 03/15/24 4 spontaneous Delivery [...] this visit. [place] appropriate handout given. 09/14/24 [id number] <Electronically signed by Ximena benitez CNM> Date _ Ximena Mcghee CNM Cosigner Signature: Date (if applicable) CC: ~ [facility] Work Phone: Progress note Author Ximena Mcghee [facility] Note Date/Time November 09, 2024 9:25 am [facility] Bing, [facility], [facility] [address] [place] [address], [address] [place] [address] OFFICE VISIT Date of Service: 11/09/24 MR#: [id number] Acct: [id number] Name: HANNAH HENDRICKS Rep #: [id number] : 1990 Provider: BART Mcghee Age/Sex: 34/F [place] [facility] [place]: Signed Intake Vital Signs 08/17/24 08:32 10/12/24 15:54 11/09/24 08:55 11/09/24 08:55 Height 5 ft 6 in 5 ft 6 in 5 ft 6 in 5 ft 6 in Weight: 202 lb 6 oz BMI 32.6 BP 104/71 Intake Visit Reasons: 25 wk ob Chief Complaint: 25wk OB Geological Scout Required: No Is patient in pain?: No [...] current occupational status: employed current occupation: [employer] current occupational exposures/hazards: No pets and animals: [...] 3-4 times per week duration: 15-30 minutes/day agata/anabaptism: Methodist seatbelt use: always do you feel safe at home: Yes 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 Date Name GA/Weeks Outcome Route Bth Weight Infant Gen Labor Lgth Anes t hesia Del Locatn Provider FOB 08/11/20 Janie 39 live - full term 7lbs 8.5oz Female epidural [facility] Dr. Quang Samaniego 03/15/24 4 spontaneous Delivery [...] Signature: Date (if applicable) CC: ~ [facility] Work Phone: Progress note Author Barbie Mitchell [facility] Services Note Date/Time December 28, 2024 9:59am [facility] [address] [place] [address], [address] [place] [address] OFFICE VISIT Date of Service: 12/28/24 MR#: [id number] Acct: [id number] Name: HANNAH HENDRICKS Rep #: [id number] : 1990 Provider: SHAWN Mitchell Age/Sex: 34/F Location: [facility] [place] Status: Signed Intake Vital Signs 11/09/24 08:55 12/15/24 09:22 12/28/24 09:45 12/28/24 09:50 Height 5 ft 6 in 5 ft 6 in 5 ft 6 in 5 ft 6 in Weight: 210 lb BMI 33.9 BP 118/72 Intake Visit Reasons: 32wk ob Chief Complaint: 32 Week OB Geological Scout Required: No Is patient in pain?: No [...] current occupational status: employed current occupation: [employer] current occupational exposures/hazards: No pets and animals: [...] 3-4 times per week duration: 15-30 minutes/day agata/anabaptism: Methodist seatbelt use: always do you feel safe at home: Yes 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 Date Name GA/Weeks Outcome Route Bth Weight Gen Labor Lgth Anesthesia Del Locatn Provider FOB 08/11/20 Janie 39 live - full term 7lbs 8.5oz Female epidural [facility] Dr. Quang Samaniego 03/15/24 4 spontaneous Delivery [...] up. 12/28/2459 <Electronically signed by Barbie benitez MANAGER QUALITY COMPLIANCE MANAGER QUALITY COMPLIANCE-C> Date _ Barbie Mitchell MANAGER QUALITY COMPLIANCE MANAGER QUALITY COMPLIANCE-C Cosigner Signature: Date (if applicable) CC: ~ [facility] Work Phone: Progress note Author Ximena Mcghee [facility] Services Note Date/Time January 11, 2025 10:42am [facility] [address], [address] [place] [address] OFFICE VISIT Date of Service: 01/11/25 MR#: [id number] Acct: [id number] Name: HANNAH HENDRICKS Rep #: [id number] : 1990 Provider: BART Mcghee Age/Sex: 34/F Location[place] [facility] [place] Status: Signed Intake Vital Signs 12/01/24 08:19 01/11/25 09:59 01/11/25 09:59 Height 5 ft 6 in 5 ft 6 in 5 ft 6 in Weight: 215 lb 5 oz BMI 34.7 BP 118/75 Intake Visit Reasons: 34 WK OB Geological Scout Required: No Is patient in pain?: No [...] current occupational status: employed current occupation: [employer] current occupational exposures/hazards: No pets and animals: [...] 3-4 times per week duration: 15-30 minutes/day agata/anabaptism: Methodist seatbelt use: always do you feel safe at home: Yes 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 Date Name GA/Weeks Outcome Route Bth Weight Infant Gen Labor Lgth Anesthesia Del Locatn Provider FOB 08/11/20 Janie 39 live - full term 7lbs 8.5oz Female epidural [facility] Dr. 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 Advance Directive(s) 11/02/2021 8:14 AM Advance Directive(s) 10/30/2021 9:10 AM Documents on File Type Date Recorded Patient Jitterbug Operator Expl anation Advance Directive(s) 11/15/2021 8:36 PM Advance Directive(s) 11/02/2021 8:14 AM Advance Directive(s) 10/30/2021 9:10 AM Advance Directive Response Recorded Date/ Time Living Will No September 23, 2020 12:06pm Power of Car Conditioner No September 23 12:06pm Advance Directive Response Recorded Date/ Time Living Will No April 01 5:32pm Power of Car Conditioner No April 01, 2024 5:32pm Advance Directive Response Recorded Date/ Time Living Will No April 01 5:32pm Do you have a Healthcare Power of Car Conditioner? No April 01, 2024 5:32pm Reason for Referral Specialty Diagnoses / Procedures Referred By Contac t Referred To Contact [facility] Diagnoses Chronic bilateral low back pain with right-sided sciatica Procedures PT REHAB FOLLOW UP ORDER THERAPEUTIC EXERCISES RE, EA 15 MIN. Pt [facility] [address] [place] [address] [facility] [place] [address] [place] [address] Referral ID Status Reason Start Date Expiration Date Visits Requested Visits Authorized [id number] Pending Review PCP Requested Referral Auto-Generate d Referral 07/16/2022 10/14/2022 1 1 Specialty Diagnoses / Procedures Referred By Contac t Referred To Contact [facility] Diagnoses Radiculopathy, lumbar region Procedures CONSULT TO PHYSICAL THERAPY PHYSICAL THERAPY EVALUATION HIGH COMPLEX [address] [place] [address] [place] [address] [facility] [place] [address] [place] [id number] Referral ID Status Reason Start Date Expiration Date Visits Requested Visits Authorized [id number] Pending Review Auto-Generat ed Referral 2 04/04/2023 1 1 Specialty Diagnoses / Procedures Referred By Contac t Referred To Contact [facility] Diagnoses Lumbar radiculopathy Procedures CONSULT TO PHYSICAL THERAPY PHYSICAL THERAPY EVALUATION HIGH COMPLEX [address] [place] [address] [place] [address] [facility] [address] [place] [address] Referral ID Status Reason Start Date Expiration Date Visits Requested Visits Authorized [id number] Pending Review Auto-Generat ed Referral 2 03/05/2023 1 1 Specialty Diagnoses / Procedures Referred By Contac t Referred To Contact Diagnoses Pre-op testing Procedures REFER TO PACC - PRE ANESTHESIA CONSULTATION CLINIC OFFICE/OUTPATIENT [facility] 60-74 MINUTES Dharmesh Louise PA-C [address] [place] [address] Referral ID Status Reason Start Date Expiration Date Visits Requested Visits Authorized [id number] Pending Review PCP Requested Referral 12/05/2021 12/05/2022 1 1 Specialty Diagnoses / Procedures Referred By Contac t Referred To Contact Yana Ballard APRN.[facility] [address] [facility] [place] [address] Referral ID Status Reason Start Date Expiration Date V isits Requested Visits Authorized [id number] Pending Review 1 1 Specialty Diagnoses / Procedures Referred By Contac t Referred To Contact Pain Management Diagnoses Lumbar disc herniation Procedures CONSULT TO PAIN MGT OFFICE/OUTPATIENT [facility] 60-74 MINUTES Yana Ballard APRN.[employer]TRACTIONS TECHNICIAN [address] [facility] [place] [address] Referral ID Status Reason Start Date Expiration Date Visits Requested Visits Authorized [id number] Pending Review PCP Requested Referral 10/06/2021 10/06/2022 1 1 Specialty Diagnoses / Procedures Referred By Contac t Referred To Contact [facility] IMAGING Diagnoses Spinal stenosis of lumbar region without neurogenic claudication Procedures MRI LUMBAR SPINE WO IVCON MRI SPINAL CANAL LUMBAR W/O CONTRAST MATERIAL Yana Ballard APRN.CNP [address] [facility] [place] [address] Mr Imaging Referral ID Status Reason Start Date Expiration Date Visits Requested Visits Authorized [id number] Authorized Auto-Generat ed Referral 09/19/2021 10/19/2022 1 [...] DATE CREATED AUTHOR AUTHOR'S ORGANIZ ATION 03/21/2022 [facility] DATE CREATED AUTHOR AUTHOR'S ORGANIZ ATION 02/10/2023 [facility] DATE CREATED AUTHOR AUTHOR'S ORGANIZ ATION 05/18/2023 [facility] DATE CREATED AUTHOR AUTHOR'S ORGANIZ ATION 08/04/2023 [facility] DATE CREATED AUTHOR AUTHOR'S ORGANIZ ATION 10/09/[address] [facility] DATE CREATED AUTHOR AUTHOR'S ORGANIZ ATION 02/05/2025 [facility] Source Comments (unrecognize d section and content) In the event this informatio n is protected by the Federal Confidentiality of Alcohol and Drug Abuse Patient Records regulations: The Federal rules restrict any use of the information to criminally investigate or prosecute any alcohol or drug abuse patient.[facility] the event this information is protected by the Federal Confidentiality of Alcohol and Drug Abuse Patient Records regulations: The Federal rules restrict any use of the information to criminally investigate or prosecute any alcohol or drug abuse patient.[facility] HospitalIn the event this information is protected by the Federal Confidentiality of Alcohol and Drug Abuse Patient Records regulations: The Federal rules restrict any use of the information to criminally investigate or prosecute any alcohol or drug abuse patient.[facility]In the event this information is protected by the Federal Confidentiality of Alcohol and Drug Abuse Patient Records regulations: The Federal rules restrict any use of the information to criminally investigate or prosecute any alcohol or drug abuse patient.[facility] HospitalIn the event this information is protected by the Federal Confidentiality of Alcohol and Drug Abuse Patient Records regulations: The Federal rules restrict any use of the information to criminally investigate or prosecute any alcohol or drug abuse patient.[facility] HospitalIn the event this information is protected by the Federal Confidentiality of Alcohol and Drug Abuse Patient Records regulations: The Federal rules restrict any use of the information to criminally investigate or prosecute any alcohol or drug abuse patient.[facility] HospitalIn the event this information is protected by the Federal Confidentiality of Alcohol and Drug Abuse Patient Records regulations: The Federal rules restrict any use of the information to criminally investigate or prosecute any alcohol or drug abuse patient.[facility] HospitalIn the event this information is protected by the Federal Confidentiality of Alcohol and Drug Abuse Patient Records regulations: The Federal rules restrict any use of the information to criminally investigate or prosecute any alcohol or drug abuse patient.[facility]In the event this information is protected by the Federal Confidentiality of Alcohol and Drug Abuse Patient Records regulations: The Federal rules restrict any use of the information to criminally investigate or prosecute any alcohol or drug abuse patient.[facility] HospitalIn the event this information is protected by the Federal Confidentiality of Alcohol and Drug Abuse Patient Records regulations: The Federal rules restrict any use of the information to criminally investigate or prosecute any alcohol or drug abuse patient.[facility] HospitalIn the event this information is protected by the Federal Confidentiality of Alcohol and Drug Abuse Patient Records regulations: The Federal rules restrict any use of the information to criminally investigate or prosecute any alcohol or drug abuse patient.[facility] HospitalIn the event this information is protected by the Federal Confidentiality of Alcohol and Drug Abuse Patient Records regulations: The Federal rules restrict any use of the information to criminally investigate or prosecute any alcohol or drug abuse patient.[facility] HospitalIn the event this information is protected by the Federal Confidentiality of Alcohol and Drug Abuse Patient Records regulations: The Federal rules restrict any use of the information to criminally investigate or prosecute any alcohol or drug abuse patient.[facility] HospitalIn the event this information is protected by the Federal Confidentiality of Alcohol and Drug Abuse Patient Records regulations: The Federal rules restrict any use of the information to criminally investigate or prosecute any alcohol or drug abuse patient.[facility] HospitalIn the event this information is protected by the Federal Confidentiality of Alcohol and Drug Abuse Patient Records regulations: The Federal rules restrict any use of the information to criminally investigate or prosecute any alcohol or drug abuse patient.[facility] HospitalIn the event this information is protected by the Federal Confidentiality of Alcohol and Drug Abuse Patient Records regulations: The Federal rules restrict any use of the information to criminally investigate or prosecute any alcohol or drug abuse patient.[facility] HospitalIn the event this information is protected by the Federal Confidentiality of Alcohol and Drug Abuse Patient Records regulations: The Federal rules restrict any use of the information to criminally investigate or prosecute any alcohol or drug abuse patient.[facility] HospitalIn the event this information is protected by the Federal Confidentiality of Alcohol and Drug Abuse Patient Records regulations: The Federal rules restrict any use of the information to criminally investigate or prosecute any alcohol or drug abuse patient.[facility] HospitalIn the event this information is protected by the Federal Confidentiality of Alcohol and Drug Abuse Patient Records regulations: The Federal rules restrict any use of the information to criminally investigate or prosecute any alcohol or drug abuse patient.[facility] HospitalIn the event this information is protected by the Federal Confidentiality of Alcohol and Drug Abuse Patient Records regulations: The Federal rules restrict any use of the information to criminally investigate or prosecute any alcohol or drug abuse patient.[facility] HospitalIn the event this information is protected by the Federal Confidentiality of Alcohol and Drug Abuse Patient Records regulations: The Federal rules restrict any use of the information to criminally investigate or prosecute any alcohol or drug abuse patient.[facility] HospitalIn the event this information is protected by the Federal Confidentiality of Alcohol and Drug Abuse Patient Records regulations: The Federal rules restrict any use of the information to criminally investigate or prosecute any alcohol or drug abuse patient.[facility] HospitalIn the event this information is protected by the Federal Confidentiality of Alcohol and Drug Abuse Patient Records regulations: The Federal rules restrict any use of the information to criminally investigate or prosecute any alcohol or drug abuse patient.[facility] HospitalIn the event this information is protected by the Federal Confidentiality of Alcohol and Drug Abuse Patient Records regulations: The Federal rules restrict any use of the information to criminally investigate or prosecute any alcohol or drug abuse patient.[facility] HospitalIn the event this information is protected by the Federal Confidentiality of Alcohol and Drug Abuse Patient Records regulations: The Federal rules restrict any use of the information to criminally investigate or prosecute any alcohol or drug abuse patient.[facility] HospitalIn the event this information is protected by the Federal Confidentiality of Alcohol and Drug Abuse Patient Records regulations: The Federal rules restrict any use of the information to criminally investigate or prosecute any alcohol or drug abuse patient.[facility] HospitalIn the event this information is protected by the Federal Confidentiality of Alcohol and Drug Abuse Patient Records regulations: The Federal rules restrict any use of the information to criminally investigate or prosecute any alcohol or drug abuse patient.[facility] HospitalIn the event this information is protected by the Federal Confidentiality of Alcohol and Drug Abuse Patient Records regulations: The Federal rules restrict any use of the information to criminally investigate or prosecute any alcohol or drug abuse patient.[facility] HospitalIn the event this information is protected by the Federal Confidentiality of Alcohol and Drug Abuse Patient Records regulations: The Federal rules restrict any use of the information to criminally investigate or prosecute any alcohol or drug abuse patient.[facility] HospitalIn the event this information is protected by the Federal Confidentiality of Alcohol and Drug Abuse Patient Records regulations: The Federal rules restrict any use of the information to criminally investigate or prosecute any alcohol or drug abuse patient.[facility] HospitalIn the event this information is protected by the Federal Confidentiality of Alcohol and Drug Abuse Patient Records regulations: The Federal rules restrict any use of the information to criminally investigate or prosecute any alcohol or drug abuse patient.[facility] HospitalIn the event this information is protected by the Federal Confidentiality of Alcohol and Drug Abuse Patient Records regulations: The Federal rules restrict any use of the information to criminally investigate or prosecute any alcohol or drug abuse patient.[facility] HospitalIn the event this information is protected by the Federal Confidentiality of Alcohol and Drug Abuse Patient Records regulations: The Federal rules restrict any use of the information to criminally investigate or prosecute any alcohol or drug abuse patient.[facility] HospitalIn the event this information is protected by the Federal Confidentiality of Alcohol and Drug Abuse Patient Records regulations: The Federal rules restrict any use of the information to criminally investigate or prosecute any alcohol or drug abuse patient.[facility] HospitalIn the event this information is protected by the Federal Confidentiality of Alcohol and Drug Abuse Patient Records regulations: The Federal rules restrict any use of the information to criminally investigate or prosecute any alcohol or drug abuse patient.[facility] HospitalIn the event this information is protected by the Federal Confidentiality of Alcohol and Drug Abuse Patient Records regulations: The Federal rules restrict any use of the information to criminally investigate or prosecute any alcohol or drug abuse patient.[facility] HospitalIn the event this information is protected by the Federal Confidentiality of Alcohol and Drug Abuse Patient Records regulations: The Federal rules restrict any use of the information to criminally investigate or prosecute any alcohol or drug abuse patient.[facility] HospitalIn the event this information is protected by the Federal Confidentiality of Alcohol and Drug Abuse Patient Records regulations: The Federal rules restrict any use of the information to criminally investigate or prosecute any alcohol or drug abuse patient.[facility] HospitalIn the event this information is protected by the Federal Confidentiality of Alcohol and Drug Abuse Patient Records regulations: The Federal rules restrict any use of the information to criminally investigate or prosecute any alcohol or drug abuse patient.[facility] HospitalIn the event this information is protected by the Federal Confidentiality of Alcohol and Drug Abuse Patient Records regulations: The Federal rules restrict any use of the information to criminally investigate or prosecute any alcohol or drug abuse patient.[facility] HospitalIn the event this information is protected by the Federal Confidentiality of Alcohol and Drug Abuse Patient Records regulations: The Federal rules restrict any use of the information to criminally investigate or prosecute any alcohol or drug abuse patient.[facility] HospitalIn the event this information is protected by the Federal Confidentiality of Alcohol and Drug Abuse Patient Records regulations: The Federal rules restrict any use of the information to criminally investigate or prosecute any alcohol or drug abuse patient.[facility] HospitalIn the event this information is protected by the Federal Confidentiality of Alcohol and Drug Abuse Patient Records regulations: The Federal rules restrict any use of the information to criminally investigate or prosecute any alcohol or drug abuse patient.[facility] HospitalIn the event this information is protected by the Federal Confidentiality of Alcohol and Drug Abuse Patient Records regulations: The Federal rules restrict any use of the information to criminally investigate or prosecute any alcohol or drug abuse patient.[facility] HospitalIn the event this information is protected by the Federal Confidentiality of Alcohol and Drug Abuse Patient Records regulations: The Federal rules restrict any use of the information to criminally investigate or prosecute any alcohol or drug abuse patient.[facility] HospitalIn the event this information is protected by the Federal Confidentiality of Alcohol and Drug Abuse Patient Records regulations: The Federal rules restrict any use of the information to criminally investigate or prosecute any alcohol or drug abuse patient.[facility] HospitalIn the event this information is protected by the Federal Confidentiality of Alcohol and Drug Abuse Patient Records regulations: The Federal rules restrict any use of the information to criminally investigate or prosecute any alcohol or drug abuse patient.[facility] HospitalIn the event this information is protected by the Federal Confidentiality of Alcohol and Drug Abuse Patient Records regulations: The Federal rules restrict any use of the information to criminally investigate or prosecute any alcohol or drug abuse patient.[facility] HospitalIn the event this information is protected by the Federal Confidentiality of Alcohol and Drug Abuse Patient Records regulations: The Federal rules restrict any use of the information to criminally investigate or prosecute any alcohol or drug abuse patient.[facility] HospitalIn the event this information is protected by the Federal Confidentiality of Alcohol and Drug Abuse Patient Records regulations: The Federal rules restrict any use of the information to criminally investigate or prosecute any alcohol or drug abuse patient.[facility] HospitalIn the event this information is protected by the Federal Confidentiality of Alcohol and Drug Abuse Patient Records regulations: The Federal rules restrict any use of the information to criminally investigate or prosecute any alcohol or drug abuse patient.[facility] HospitalIn the event this information is protected by the Federal Confidentiality of Alcohol and Drug Abuse Patient Records regulations: The Federal rules restrict any use of the information to criminally investigate or prosecute any alcohol or drug abuse patient.[facility] HospitalIn the event this information is protected by the Federal Confidentiality of Alcohol and Drug Abuse Patient Records regulations: The Federal rules restrict any use of the information to criminally investigate or prosecute any alcohol or drug abuse patient.[facility] the event this information is protected by the Federal Confidentiality of Alcohol and Drug Abuse Patient Records regulations: The Federal rules restrict any use of the information to criminally investigate or prosecute any alcohol or drug abuse patient.[facility] the event this information is protected by the Federal Confidentiality of Alcohol and Drug Abuse Patient Records regulations: The Federal rules restrict any use of the information to criminally investigate or prosecute any alcohol or drug abuse patient.[facility] the event this information is protected by the Federal Confidentiality of Alcohol and Drug Abuse Patient Records regulations: The Federal rules restrict any use of the information to criminally investigate or prosecute any alcohol or drug abuse patient.[facility] the event this information is protected by the Federal Confidentiality of Alcohol and Drug Abuse Patient Records regulations: The Federal rules restrict any use of the information to criminally investigate or prosecute any alcohol or drug abuse patient.[facility] the event this information is protected by the Federal Confidentiality of Alcohol and Drug Abuse Patient Records regulations: The Federal rules restrict any use of the information to criminally investigate or prosecute any alcohol or drug abuse patient.[facility] the event this information is protected by the Federal Confidentiality of Alcohol and Drug Abuse Patient Records regulations: The Federal rules restrict any use of the information to criminally investigate or prosecute any alcohol or drug abuse patient.[facility]In the event this information is protected by the Federal Confidentiality of Alcohol and Drug Abuse Patient Records regulations: The Federal rules restrict any use of the information to criminally investigate or prosecute any alcohol or drug abuse patient.[facility] the event this information is protected by the Federal Confidentiality of Alcohol and Drug Abuse Patient Records regulations: The Federal rules restrict any use of the information to criminally investigate or prosecute any alcohol or drug abuse patient.[facility] the event this information is protected by the Federal Confidentiality of Alcohol and Drug Abuse Patient Records regulations: The Federal rules restrict any use of the information to criminally investigate or prosecute any alcohol or drug abuse patient.[facility]In the event this information is protected by the Federal Confidentiality of Alcohol and Drug Abuse Patient Records regulations: The Federal rules restrict any use of the information to criminally investigate or prosecute any alcohol or drug abuse patient.[facility]In the event this information is protected by the Federal Confidentiality of Alcohol and Drug Abuse Patient Records regulations: The Federal rules restrict any use of the information to criminally investigate or prosecute any alcohol or drug abuse patient.[facility] HospitalIn the event this information is protected by the Federal Confidentiality of Alcohol and Drug Abuse Patient Records regulations: The Federal rules restrict any use of the information to criminally investigate or prosecute any alcohol or drug abuse patient.[facility] Reason for Visit (unrecogniz ed section and content) Reason Comments PT Progress Note Specialty Diagnoses / Procedures Referred By Contac t Referred To Contact [facility] Diagnoses Radiculopathy, lumbar region Procedures CONSULT TO PHYSICAL THERAPY PHYSICAL THERAPY EVALUATION HIGH COMPLEX 45 [place] [address] [place] [address] [facility] [address] [address] Referral ID Status Reason Start Date Expiration Date V isits Requested Visits Authorized [id number] Authorized 04/15/2022 04/14/2023 20 20 Reason Comments Physical Therapy Specialty Diagnoses / Procedures Referred By Contac t Referred To Contact [facility] Diagnoses Radiculopathy, lumbar region Procedures CONSULT TO PHYSICAL THERAPY PHYSICAL THERAPY EVALUATION HIGH COMPLEX 45 [place] [address] [place] [id number] [address] Reason Comments PT Progress Note Reason Comments Establish Care follow up from ED, b ack pain Specialty Diagnoses / Procedures Referred By Contac t Referred To Contact [facility] IMAGING Diagnoses Spinal stenosis of lumbar region without neurogenic claudication Procedures MRI LUMBAR SPINE WO IVCON MRI SPINAL CANAL LUMBAR W/O CONTRAST MATERIAL Yana Ballard, TOWER TRUCK DRIVER.EXTRACTIONS TECHNICIAN [address] [address] Mr Imaging Referral ID Status Reason Start Date Expiration Date V isits Requested Visits Authorized [id number] Closed Auto-Generate d Referral 09/19/2021 10/19/2022 1 1 Reason Comments Results MRI Reason Onset Date Comments Refill Request 10/06/2021 Specialty Diagnoses / Procedures Referred By Contac t Referred To Contact Pain Management Diagnoses Lumbar disc herniation Procedures CONSULT TO PAIN MGT OFFICE/OUTPATIENT [facility] 60-74 MINUTES Yana Ballard, TOWER TRUCK DRIVER.EXTRACTIONS TECHNICIAN [address] [address] Referral ID Status Reason Start Date Expiration Date Visits Requested Visits Authorized [id number] Pending Review PCP Requested Referral 10/06/2021 10/06/2022 [...] LUMBAR W/O CONTRAST MATERIAL Radha Dickens PA-C [address] [place] [address] Mr Imaging Referral ID Status Reason Start Date Expiration Date V isits Requested Visits Authorized [id number] Closed Auto-Generate d Referral 03/12/2022 04/26/2022 1 1 Specialty Diagnoses / Procedures Referred By Contac t Referred To Contact Diagnoses Pre-op testing Procedures REFER TO PACC - PRE ANESTHESIA CONSULTATION CLINIC OFFICE/OUTPATIENT NEW HIGH MDM 60-[place] [address] [place] [address] Referral ID Status Reason Start Date Expiration Date Visits Requested Visits Authorized [id number] Pending Review PCP Requested Referral 03/16/2022 03/16/2023 1 1 Reason Comments Post Op Sore and stiffness Reason Comments PT Eval Referral ID Status Reason Start Date Expiration Date Visits Requested Visits Authorized [id number] Pending Review Auto-Generat ed Referral 04/04/2023 1 1 Reason Comments Follow Up Reason Comments Post Op Symptoms Reason Comments Leg Pain Reason Comments PT Discharge Specialty Diagnoses / Procedures Referred By Contac t Referred To Contact [facility] Diagnoses Radiculopathy, lumbar region Procedures CONSULT TO PHYSICAL THERAPY PHYSICAL THERAPY EVALUATION HIGH COMPLEX 45 [place] [address] [place] [address] [facility] [place] [address] [place] [address] Reason Comments Follow Up Pt states that [...] LUMBAR W/[place] [address] [place] [address] [place] [id number] Referral ID Status Reason Start Date Expiration Date V isits Requested Visits Authorized [id number] Closed Auto-Generate d Referral 02/06/2023 03/07/2024 1 1 Reason Comments Diarrhea Care Teams (unrecognized sec tion and content) Science Professor Relationship Specialty Start Date End Date Yana Ballard, TOWER TRUCK DRIVER.EXTRACTIONS TECHNICIAN [address] [address] PCP - General Family Practice 10/27/12 Science Professor Relationship Specialty Start Date End Date Yana Ballard, TOWER TRUCK DRIVER.EXTRACTIONS TECHNICIAN [address] [address] PCP - General Family Practice 10/27/12 Science Professor Relationship Specialty Start Date End Date Yana Ballard, TOWER TRUCK DRIVER.EXTRACTIONS TECHNICIAN [address] [address] PCP - General Family Practice 10/27/12 Science Professor Relationship Specialty Start Date End Date Yana Ballard, TOWER TRUCK DRIVER.EXTRACTIONS TECHNICIAN [address] [address] PCP - General Family Practice 10/27/12 Science Professor Relationship Specialty Start Date End Date Yana Ballard, TOWER TRUCK DRIVER.EXTRACTIONS TECHNICIAN [address] [address] PCP - General Family Practice 10/27/12 Science Professor Relationship Specialty Start Date End Date Yana Ballard, TOWER TRUCK DRIVER.EXTRACTIONS TECHNICIAN [address] [address] PCP - General Family Practice 10/27/12 Science Professor Relationship Specialty Start Date End Date Yana Ballard, TOWER TRUCK DRIVER.EXTRACTIONS TECHNICIAN [address] [address] PCP - General Family Practice 10/27/12 Science Professor Relationship Specialty Start Date End Date Yana Ballard, TOWER TRUCK DRIVER.EXTRACTIONS TECHNICIAN [address] [address] PCP - General Family Practice 10/27/12 Science Professor Relationship Specialty Start Date End Date Yana Ballard, TOWER TRUCK DRIVER.EXTRACTIONS TECHNICIAN [address] [address] PCP - General Family Practice 10/27/12 Science Professor Relationship Specialty Start Date End Date Yana Ballard, TOWER TRUCK DRIVER.EXTRACTIONS TECHNICIAN [address] [address] PCP - General Family Practice 10/27/12 Science Professor Relationship Specialty Start Date End Date Yana Ballard, TOWER TRUCK DRIVER.EXTRACTIONS TECHNICIAN [address] [address] PCP - General Family Practice 10/27/12 Science Professor Relationship Specialty Start Date End Date Yana Ballard, TOWER TRUCK DRIVER.EXTRACTIONS TECHNICIAN [address] [address] PCP - General Family Practice 10/27/12 Science Professor Relationship Specialty Start Date End Date Yana Ballard, TOWER TRUCK DRIVER.EXTRACTIONS TECHNICIAN [address] [address] PCP - General Family Practice 10/27/12 Science Professor Relationship Specialty Start Date End Date Yana Ballard, TOWER TRUCK DRIVER.EXTRACTIONS TECHNICIAN [address] [address] PCP - General Family Practice 10/27/12 Science Professor Relationship Specialty Start Date End Date Yana Ballard, TOWER TRUCK DRIVER.EXTRACTIONS TECHNICIAN [address] [address] PCP - General Family Practice 10/27/12 Science Professor Relationship Specialty Start Date End Date Yana Ballard, TOWER TRUCK DRIVER.EXTRACTIONS TECHNICIAN [address] [address] PCP - General Family Practice 10/27/12 Science Professor Relationship Specialty Start Date End Date Yana Ballard, TOWER TRUCK DRIVER.EXTRACTIONS TECHNICIAN [address] [address] PCP - General Family Practice 10/27/12 Science Professor Relationship Specialty Start Date End Date Yana Ballard, TOWER TRUCK DRIVER.EXTRACTIONS TECHNICIAN [address] [address] PCP - General Family Practice 10/27/12 12/11/21 Thomas Salinas MD [address] [place] [address] PCP - General Family Practice 12/12/21 Science Professor Relationship Specialty Start Date End Date Thomas Salinas MD [address] [place] [address] PCP - General Family Practice 12/12/21 Science Professor Relationship Specialty Start Date End Date Thomas Salinas MD [address] [place] [address] PCP - General Family Medicine 12/12/21 Science Professor Relationship Specialty Start Date End Date Thomas Salinas MD [address] [place] [address] PCP - General Family Medicine 12/12/21 Science Professor Relationship Specialty Start Date End Date Thomas Salinas MD [address] [place] [address] PCP - General Family Medicine 12/12/21 Science Professor Relationship Specialty Start Date End Date Thomas Salinas MD [address] [place] [address] PCP - General Family Medicine 12/12/21 Science Professor Relationship Specialty Start Date End Date Thomas Salinas MD [address] [place] [address] PCP - General Family Medicine 12/12/21 Science Professor Relationship Specialty Start Date End Date Thomas Salinas MD [address] [place] [address] PCP - General Family Medicine 12/12/21 Science Professor Relationship Specialty Start Date End Date Thomas Salinas MD [address] [place] [address] PCP - General Family Medicine 12/12/21 Science Professor Relationship Specialty Start Date End Date Thomas Salinas MD [address] [place] [address] PCP - General Family Medicine 12/12/21 Science Professor Relationship Specialty Start [place] [address] [place] [address] PCP - General Family Medicine 12/12/21 Science Professor Relationship Specialty [place] [address] [place] [address], [place] [address] PCP - General Family Medicine 12/12/21 Science Professor Relationship Specialty Start [place] [address] [place] [address], [place] [address] PCP - General Family Medicine 12/12/21 Science Professor Relationship Specialty Start Date End Date Thomas Salinas MD [address] [place] [address] [place] [address] PCP - General Family Medicine 12/12/21 Science Professor Relationship Specialty Start Date End Date Thomas Salinas MD [address] [place] [address] PCP - General Family Medicine 12/12/21 Science Professor Relationship Specialty Start Date End Date Thomas Salinas MD [address] [place] [address] [place] [address] PCP - General Family Medicine 12/12/21 Science Professor Relationship Specialty Start Date End Date Thomas Salinas MD [address] [place] [address] [place] [address] PCP - General Family Medicine 12/12/21 Science Professor Relationship Specialty Start Date End Date Thomas Salinas MD [address] [place] [address], [place] [address] PCP - General Family Medicine 12/12/21 Science Professor Relationship Specialty Start Date End Date Thomas Salinas MD [address] [place] [address], [place] [address] PCP - General Family Medicine 12/12/21 Science Professor Relationship Specialty Start Date End Date Thomas Salinas MD [address] [place] [address] PCP - General Family Medicine 12/12/21 Team Status: Active Member Role Status Dates Yana Ballard MANAGER QUALITY COMPLIANCE, MANAGER QUALITY COMPLIANCE-C Primary Care Provider Active Team Status: Inactive Member Role Status Dates Yana Ballard MANAGER QUALITY COMPLIANCE, MANAGER QUALITY COMPLIANCE-C Primary Care Provider Active Dr. Isabel Marino MD Attending Provider, Referr ing Provider Active Science Professor Relationship Specialty Start Date End Date Thomas Salinas MD [address] [place] [address] PCP - General Family Medicine 12/12/21 Science Professor Relationship Specialty Start Date End Date Thomas Salinas MD [address] [place] [address] PCP - General Family Medicine 12/12/21 Science Professor Relationship Specialty Start Date End Date Thomas Salinas MD [address] [place] [address] PCP - General Family Medicine 12/12/21 Science Professor Relationship Specialty Start Date End Date Thomas Salinas MD [facility] [place] [address] PCP - General Family Medicine 12/12/21 Science Professor Relationship Specialty Start Date End Date Thomas Salinas MD [address] [place] [address] PCP - General Family Medicine 12/12/21 Science Professor Relationship Specialty Start Date End Date Thomas Salinas MD [address] [place] [address] PCP - General Family Medicine 12/12/21 Team [...] 2024 End: April 14, 2024 Barbie Mitchell MANAGER QUALITY COMPLIANCE, MANAGER QUALITY COMPLIANCE-C Attending Provider Active Start: April 14, 2024 End: April 14, 2024 Team Status: Inactive Member Role Status Dates Dr. Thomas Salinas MD Primary Care Provider Acti ve Start: April 14, 2024 End: April 14, 2024 Barbie Mitchell MANAGER QUALITY COMPLIANCE, MANAGER QUALITY COMPLIANCE-C Attending Provider Active Start: April 14, 2024 End: April 14, 2024 Barbie Mitchell MANAGER QUALITY COMPLIANCE, MANAGER QUALITY COMPLIANCE-C Referring Provider Active Start: April 14, 2024 [...] 2024 End: July 02, 2024 Dr. Maryann Bawja DO Attending Provider Activ e Start: July [...] 2024 End: August 05, 2024 Barbie Mitchell MANAGER QUALITY COMPLIANCE, MANAGER QUALITY COMPLIANCE-C Attending Provider Active Start: August 05, 2024 End: August 05, 2024 Team Status: Inactive Member Role Status Dates Dr. Thomas Salinas MD Primary Care Provider Acti ve Start: August 17, 2024 End: August 17, 2024 Dr. Thomas Salinas MD Referring Provider Active Start: August 17, 2024 End: August 17, 2024 Barbie Mitchell MANAGER QUALITY COMPLIANCE, MANAGER QUALITY COMPLIANCE-C Attending Provider Active Start: August 17, 2024 [...] Status: Inactive Member Role/Relationship Status Dates Dr. hTomas Salinas MD Primary Care Provider Acti ve [...] End: August 05, 2024 Barbie Mitchell NP, MANAGER QUALITY COMPLIANCE-C Attending Provider Active Start: August 05, 2024 End: August 05, 2024 Team Status: Inactive Member Role/Relationship Status Dates Dr. Thomas Salinas MD Primary Care Provider Acti ve Start: August 17, 2024 End: August 17, 2024 Dr. Thomas Salinas MD Referring Provider Active Start: August 17, 2024 End: August 17, 2024 Barbie Mitchell MANAGER QUALITY COMPLIANCE, MANAGER QUALITY COMPLIANCE-C Attending Provider Active Start: August 17, 2024 [...] 31, 2024 End: July 31, 2024 Dr. Maraynn Bajwa DO Attending Provider Activ e Start: [...] 2024 End: August 05, 2024 Barbie Mitchell MANAGER QUALITY COMPLIANCE, MANAGER QUALITY COMPLIANCE-C Attending Provider Active Start: August 05, 2024 End: August 05, 2024 Team Status: Inactive Member Role/Relationship Status Dates Dr. Thomas Salinas MD Primary Care Provider Acti ve Start: August 17, 2024 End: August 17, 2024 Dr. Thomas Salinas MD Referring Provider Active Start: August 17, 2024 End: August 17, 2024 Barbie Mitchell MANAGER QUALITY COMPLIANCE, MANAGER QUALITY COMPLIANCE-C Attending Provider Active Start: August 17, 2024 [...] 2024 End: August 05, 2024 Barbie Mitchell MANAGER QUALITY COMPLIANCE, MANAGER QUALITY COMPLIANCE-C Attending Provider Active Start: August 05, 2024 End: August 05, 2024 Team Status: Inactive Member Role/Relationship Status Dates Dr. Thomas Salinas MD Primary Care Provider Acti ve Start: August 17, 2024 End: August 17, 2024 Dr. Thomas Salinas MD Referring Provider Active Start: August 17, 2024 End: August 17, 2024 Barbie Mitchell MANAGER QUALITY COMPLIANCE, MANAGER QUALITY COMPLIANCE-C Attending Provider Active Start: August 17, 2024 [...] 08, 2024 End: October 08, 2024 Dr. Isable Marino MD Attending Provider Active Start: October [...] End: December 01, 2024 Barbie Mitchell NP, MANAGER QUALITY COMPLIANCE-C Attending Provider Active Start: December 01, 2024 [...] End: August 17, 2024 Barbie Mitchell NP, MANAGER QUALITY COMPLIANCE-C Attending Provider Active Start: August 17, 2024 [...] 2024 End: December 01, 2024 Barbie Mitchell MANAGER QUALITY COMPLIANCE, MANAGER QUALITY COMPLIANCE-C Attending Provider Active Start: December 01, 2024 [...] End: December 01, 2024 Barbie Mitchell NP, MANAGER QUALITY COMPLIANCE-C Attending Provider Active Start: December 01, 2024 [...] 2024 End: December 28, 2024 Barbie Mitchell MANAGER QUALITY COMPLIANCE, MANAGER QUALITY COMPLIANCE-C Attending Provider Active Start: December 28, 2024 [...] 2024 End: December 01, 2024 Barbie Mitchell MANAGER QUALITY COMPLIANCE, MANAGER QUALITY COMPLIANCE-C Attending physician Active Start: December 01, 2024 [...] 2024 End: December 28, 2024 Barbie Mitchell MANAGER QUALITY COMPLIANCE, MANAGER QUALITY COMPLIANCE-C Attending physician Active Start: December 28, 2024 [...] BE BASED ON THE PRIMARY CLINICAL RECORDS. [facility]. provides no warranty or guarantee of the accuracy or completeness of information in this document.
[2025-02-06] MEDS: Lactated Ringers 1,000 ML 50 ML IV (08:40)
[2025-02-06 08:53] LABS: Hematocrit 34.6 % (37-47); Hemoglobin 12.3 g/dL (12.0-15.0); Immature Granulocytes Count 0.080 X10^3/uL (0.0-0.0); Mean Corp Hgb Conc 35.5 g/dL (32-36); Mean Corpuscular Volume 94.0 fL (81-99); Mean Platelet Vol. 10.0 fl (6.2-12.0); NRBC Flagged by Analyzer 0 % (0-5); Platelet Count 223 K/mm3 (150-450); RBC Distribution Width CV 12.1 % (11.6-14.6); RBC Distribution Width SD 41.7 fl (35.1-43.9); Red Blood Count 3.68 M/mm3 (4.2-5.4); White Blood Count 10.7 K/mm3 (4.4-11.0)
--- NOTE | 2025-02-06 09:25 | HP.PCM.OB_ITS ---
HPI - General General Date of Admission: 02/06/25 HPI Narrative ERICK ASKEW, is a 34 y/o @ 37 weeks 3 days who presents to L&D with spontaneous rupture of membranes and infrequent mild contractions. Her cervix when she was here last was 1-2 cm dilated, 50% effaced and upon arrival she is unchanged. She believes her water broke at 6 am today. She consents to starting pitocin. 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 magnesium glycinate 120 mg (as 240 mg PO DAILY 5 02/05/25 19:00 History glycinate) capsule Allergy/AdvReac Type Severity Reaction Status Date / Time amoxicillin Allergy Intermediate Rash Verified 02/06/25 07:42 vancomycin Allergy Intermediate Rash Verified 02/06/25 07:42 Penicillins Allergy Mild hives Verified 02/06/25 07:42 shellfish derived Allergy Mild hives Verified 02/06/25 07:42 Family History Uncle Colon cancer Liver cancer Grandfather Liver cancer Pancreatic cancer Uncle Diverticulitis Grandmother Heart disease Uncle Heart disease Surgical History Previous back surgery Social History adopted: No household members: spouse and children housing: house number of children: 1 current occupational status: employed current occupation: [employer] current occupational exposures/hazards: No pets and animals: Yes (Not managing litterbox) pets and animals: cat(s), dog(s) and other details: rabbit history of recent travel: No sexually active: Yes Smoking Status: Former smoker quit date: 06/16/24 how long ago did patient quit smokin06/16/24 second hand exposure: No quit status: quit date established alcohol intake: current alcohol intake frequency: a few times a month details: Not while substance use type: does not use well-balanced diet: daily or most days caffeine: Yes Type: coffee and tea eating out: 1-3 times/week during the past year weight has: remained stable what type of physical activity do you participate in: walking frequency: 3-4 times per week duration: 15-30 minutes/day agata/protestant: Sikhism seatbelt use: always do you feel safe at home: Yes additional social history: : Aden[employer] History 3 Elective abortions Hx Para 1 Spontaneous abortions 1 Hx # Term Pregnancies 1 Ectopic pregnancies Hx # Pregnancies Multiple births # of living children 1 Past Pregnancies Del. Date Name GA/Weeks Outcome Route Bth Weight Gen Labor Lgth Anesthesia Del Locatn Provider FOB 08/11/20 Janie 39 live - full term 7lbs 8.5oz Female epidural [facility] Dr. Quang Samaniego 03/15/24 4 spontaneous Delivery Date: 08/11/20 Last Updated by: Cherelle Reeder Induced Visit Details Expected Delivery Route/Plan Labor Preferences- CB/BF classes: no labor support person: Aden labor intervention preferences: [] pain management options preferred: epidural cut cord/dad catch: cord : yes PP control planned: discussed discussed possible routes of delivery and associated risks: [] special requests: [] Plans Covid status: [] Flu vaccine: [] Tdap vaccine: given Rhogam: NA LARC form signed: yes Problem list reviewed and updated with the most current plan of care details and appropriate orders placed. Relevant counseling for the gestational age provided. Continue routine care and follow up unless otherwise noted in visit notes/problem list details OB Flowsheet Initial Weight: Not Recorded Date - - - - - - - - - - - - - EGA Weight BP Urine Prot - - - - - - - - - - - - - Glucose FHR FuHt Pres Dilation - - - - - - - - - - - - - Effaced St Visit Note 07/20/24 - -- - - - - - - - - - - - 8w 5d 182 lb 6 oz 117/79 - - - - - - - - - - - - - 170 - - - - - - - - - - - - - JV- CRL consiste nt with LMP and prior ultrasound. desires NIPT and carrier screen. 08/05/24 - - - - - - - - - - - - - 11w 0d 183 lb 126/78 Negative - - - - - - - - - - - - - Negative 173 - - - - - - - - - - - - - -work in. Fel l on knees last night/increased cramping. No bleeding. Hx of SAB. Live IUP on br US. 08/17/24 - - - - - - - - - - - - - 12w 5d 184 lb 8 oz 104/68 Trac e - - - - - - - - - - - - - Negative 157 - - - - - - - - - - - - - MH-No VB. Nausea improving. Br US confirm FHT 09/14/24 - - - - - - - - - - - - - 16w 5d 190 lb 2 oz 106/71 Nega tive - - - - - - - - - - - - - Negative 156 - - - - - - - - - - - - - KW- No vb/crampi ng. having migraines from lack of caffeine-discussed usage. Anatomy US ordered. AFP declined. 10/12/24 - - - - - - - - - - - - - 20w 5d 195 lb 6 oz 119/75 Nega tive - - - - - - - - - - - - - Negative 140 - - - - - - - - - - - - - SM- no vb crampi ng 11/09/24 - - - - - - - - - - - - - 24w 5d 202 lb 6 oz 104/71 Trac e - - - - - - - - - - - - - Negative 136 24 - - - - - - - - - - - - - KW-no vb/lof/ctx . good fm. discussed magnesium for leg cramps. belly band encouraged. glucose discussed 12/01/24 - - - - - - - - - - - - - 27w 6d 206 lb 4 oz 112/70 Nega tive - - - - - - - - - - - - - Negative 138 27 - - - - - - - - - - - - - MH-No VB. LOF. G ood FM. some RL pain/backache-seeing chiro and using steffen band with benefit. 28 wk labs pending. Larc 12/15/24 - - - - - - - - - - - - - 29w 6d 205 lb 9 oz 106/69 Trac e - - - - - - - - - - - - - Negative 147 30.5 - - - - - - - - - - - - - JV- no lof, vagi nal bleeding, or dec fm JV- no lof, vaginal bleeding , or dec fm. she would like me to do her delivery if available. discussed the group call schedule dynamics and she understands. 12/28/24 - - - - - - - - - - - - - 31w 5d 210 lb 118/72 Trace - - - - - - - - - - - - - Negative 136 32 - - - - - - - - - - - - - MH-No VB, LOF. G ood FM. Tdap. Enc RSV vaccine. Note ok for massage 01/11/25 - - - - - - - - - - - - - 33w 5d 215 lb 5 oz 118/75 Nega tive - -- - - - - - - - - - - - Negative 130 33 - - - - - - - - - - - - - KW- no vb/lof/ct x. good fm. 01/26/25 - - - - - - - - - - - - - 35w 6d 213 lb 2 oz 112/74 Trac e - - - - - - - - - - - - - Negative 130 35 - - - - - - - - - - - - - SM- no vb lof go od fm n oregular ctx 02/01/25 - - - - - - - - - - - - - 36w 5d 214 lb 7 oz 109/75 Nega tive - - - - - - - - - - - - - Negative 130 36 Cephalic 1 - - - - - - - - - - - - - 50 -1 KW- no vb/ lof/ctx. good fm. feels that baby has moved down. GBS today NST FHR Rate Baby A Baseline: 140 Variability:: Moderate Accelerations:: 15 x 15 Decelerations:: None NST Reactive:: Yes FHR Category:: Category I Uterine Activity:: q 5 min ROS Constitutional Constitutional: Denies change in weight, fatigue, fever(s), headache(s), poor appetite or weakness Eyes Eyes: Denies blurry vision, change in vision, seeing flashes or spots in vision ENT HEENT: Denies dizziness, headache(s), loss taste/smell or sore throat Cardiovascular Cardiovascular: Denies chest pain, dizziness, dyspnea, irregular heart rhythm, leg edema, palpitations, rapid heart rate or vomiting Respiratory/Chest Respiratory/Chest: Denies chest tightness, cough, dyspnea or breast pain Gastrointestinal Gastrointestinal: Denies abdominal pain, anorexia, constipation, cramping, diarrhea, hemorrhoids, vomiting or weight changes Genitourinary Genitourinary: Denies dysuria, flank pain, genital lesions, genital pain, urinary frequency or urinary urgency Musculoskeletal Musculoskeletal: Denies back pain, difficulty walking, joint pain, limited range of motion, muscle cramps or numbness Integumentary Integumentary: Denies lesions or unusual bruising Neurologic Neurologic: Denies abnormal movements, abnormal speech, dizziness, numbness, seizure-like activity or syncope Psychiatric Psychiatric: Denies anxiety, behavioral changes, change in appetite, change in libido, cognitive impairment, confusion, depression, difficulty concentrating, hallucinations or suicidal thoughts Endocrine Endocrinology: Denies excessive sweating, polydipsia or polyuria Hematologic/Lymphatic Hematologic/Lymphatic: Denies easy bleeding, easy bruising or lymphadenopathy Allergic/Immunologic Allergic/Immunologic: Denies itchy eyes, lip swelling, seasonal rhinorrhea, rhinitis, throat swelling, tongue swelling, eczemia, wheezing or asthma Vital Signs Vital Signs Vital Signs: 02/06/25 07:33 02/06/25 07:33 02/06/25 07:33 Temperature Temperature Source Temporal Pulse Rate 106 H Respiratory Rate Blood Pressure 105/64 BP Systolic 105 BP Diastolic 64 Pulse Ox 02/06/25 07:33 02/06/25 07:33 02/06/25 07:33 Temperature 98.1 F Temperature Source Pulse Rate Respiratory Rate 16 Blood Pressure BP Systolic BP Diastolic Pulse Ox 98 02/06/25 07:37 02/06/25 07:37 02/06/25 07:38 Temperature Temperature Source Pulse Rate 95 108 H Respiratory Rate Blood Pressure 105/64 BP Systolic 105 BP Diastolic 64 Pulse Ox 02/06/25 07:38 02/06/25 07:38 02/06/25 09:23 Temperature 98.1 F Temperature Source Pulse Rate Respiratory Rate Blood Pressure 114/67 BP Systolic 114 BP Diastolic 67 Pulse Ox 97 02/06/25 09:23 02/06/25 09:23 Temperature 98.1 F Temperature Source Pulse Rate 79 Respiratory Rate Blood Pressure BP Systolic BP Diastolic Pulse Ox Weight Weight: 213 lb Body Mass Index (BMI) 35.4 Physical Exam Const alert, oriented x3, no apparent distress and healthy appearing General Appearance: cooperative; Negative for anxious HEENT normocephalic Face and Sinus: normal facial exam Eyes EOMs intact bilaterally and no scleral icterus General Eye: normal appearance of both eyes Neck full ROM and supple Lymph Lymphatic: no lymphadenopathy noted Resp normal respiratory effort Effort and Inspection: able to speak in complete sentences Cardio regular rate GI soft to palpation and non-tender Inspection: gravid Palpation: soft; Negative for tender Back/Spine no CVA tenderness Extremity normal to inspection, full ROM and no clubbing, cyanosis or edema General Extremity: Negative for calf tenderness or edema Skin Lesions: no lesions Rashes: no rashes Psych mental status grossly normal Labs Labs Labs: Blood Type A POSITIVE Antibody Screen NEGATIVE Hct, (37-47) 34.6 % L Hgb, (12.0-15.0) 12.3 g/dL Obstetrics Ultrasound Syphilis Total Ab, (Nonreactive) Nonreactive Rubella IgG Antibody, (Nonreactive) REAC Hep Bs Antigen, (Nonreactive) Nonreactive Hepatitis C Antibody, (Nonreactive) Nonreactive Chlamydia DNA (YANDY), (Negative) Negative N.gonorrhoeae DNA (YANDY), (Negative) Negative HIV 1&2 Antibody, (Nonreactive) Nonreactive Glucose 1 Hr 50 gm, (70-140) 130 mg/dL Group B Strep DNA, (Negative) Negative Rhogam given: No Miscellaneous Test, (.) COMMENT Assessment & Plan (1) SROM (spontaneous rupture of membranes): (2) Anxiety: COMMENT: discussed counseling/meds. Zoloft very helpful (3) Supervision of high-risk : QUALIFIERS: Trimester: second trimester Qualified Code(s): O09.92 - Supervision of high risk , unspecified, second trimester COMMENT: PRR,; BALAJI 02/24/25; surprise PC: Janie; : Aden (4) : QUALIFIERS: Weeks of gestation: 36 weeks Qualified Code(s): Z3A.36 - 36 weeks gestation of COMMENT: Neg GBS. Discussed genetic/carrier testing NIPT low risk, gender not selected, nl anatomy PLAN: Plan Patient presents with srom for augmentation of labor, plan management for with pitocin Pain management: plans nitrous then epidural. GBS negative. Management of any complications: none I have reviewed the [facility] and made any clinically relevant updates.
[2025-02-06 09:29] LABS: Syphilis Antibodies Nonreactive (Nonreactive)
[2025-02-06] MEDS: Oxytocin 15 Units/NS 250ml 15 UNITS/250 ML IV.SOLN 2 UNITS IV (09:32)
[2025-02-06] MEDS: Lactated Ringers 1,000 ML 999 ML IV ×2 (12:56→18:17)
[2025-02-06] MEDS: fentaNYL-bupivacaine (epidural) 100 ML BAG EPIDURAL ×2 (14:33→21:00)
[2025-02-06] MEDS: Lactated Ringers 1,000 ML 200 ML IV ×2 (15:10→22:53)
[2025-02-06] MEDS: 0.9% Saline Lock 10 ML Syringe IV (16:49)
[2025-02-07] VITALS (48 sets, daily range): BP systolic 107–125; BP diastolic 55–84; PULSE 66–134; RESP 16–18; TEMP 36.2–36.6; O2SAT 97–100
--- NOTE | 2025-02-07 00:03 | EX.PCM.OBVAG ---
Assessment & Plan (1) SROM (spontaneous rupture of membranes): (2) Anxiety: COMMENT: discussed counseling/meds. Zoloft very helpful (3) Supervision of high-risk : QUALIFIERS: Trimester: second trimester Qualified Code(s): O09.92 - Supervision of high risk , unspecified, second trimester COMMENT: PRR,; BALAJI 02/24/25; surprise PC: Janie; : Aden (4) : QUALIFIERS: Weeks of gestation: 36 weeks Qualified Code(s): Z3A.36 - 36 weeks gestation of COMMENT: Neg GBS. Discussed genetic/carrier testing NIPT low risk, gender not selected, nl anatomy Maternal Data Information BALAJI Calculator Estimated Delivery Date Method Current WG Current Estimate 02/24/25 Ultrasound #1 37w 4d Other Estimates 02/27/25 LMP (Certain) 37w 1d Final BALAJI Source: LMP Gestational age: Vaginal Delivery Maternal Presentation Maternal Presentation: Spontaneous Rupture of Membranes Type of Induction: Pitocin Vaginal Delivery Information Procedure Performed: Spontaneous Vaginal Delivery Surgeon/Practitioner: Maryann Bajwa Date of Procedure: 02/07/25 Pre-Procedure Diagnosis: 34 y/o @ 37 weeks 4 days , SROM Post-Procedure Diagnosis: 34 y/o @ 37 weeks 4 days , SROM Type of anesthesia: Epidural Estimated Blood Loss: 100cc Time of Delivery: 23:45 Findings Description of procedure: Patient began pushing and delivered the head in the CJ presentation. The head was delivered atraumatically and a loose nuchal cord ×1 was identified and easily reduced over the 's head. The anterior and posterior shoulders delivered without complication followed by the rest of the infant and the infant was placed on the maternal abdomen. Delayed cord clamping was employed for approximately 60 seconds. Cord was clamped and cut and gentle traction was applied to the cord and the placenta delivered spontaneously immediately following it was noted to be intact with three-vessel cord. The perineum and vagina were inspected and noted to have a spontanesous mediolateral 1st degree perineal laceration. this was repaired with a 3-0 vicryl rapide suture EBL was 100 cc. Patient and tolerated delivery well. 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
--- NOTE | 2025-02-07 00:06 | DCINST_ITS ---
Discharge Instructions DC O2, CPAP, BIPAP needs Home O2 Discharge instructions: No Dressing / Incision Discharge Activity: Return to Normal Activity, May Not Drive (while taking narcotic pain medications.) and May Shower May resume sexual activity in: 4-6 weeks Dressing / Incision Call your doctor if your incision/area has: Continuous Slow Oozing, Sudden Increased Bleeding, Increased Pain/ Swelling, Increased Redness and Foul Smelling Discharge Follow Up Care Please Follow Up With: Maryann Bajwa DO When: Call [phone] to make an appointment with your doctor in 6 weeks. If you had elevated blood pressure or 4th degree laceration, you will need to be seen in 2 weeks. Test Results: Test results from this visit will be discussed in further detail at your follow- up appointment, if applicable. Discharge Plan Admission Admit Date/Time: 02/06/25 08:14 Attending Provider: Maryann Bajwa Primary Care Provider: Carter Iglesias Discharge Orders/Prescriptions Prescriptions: No Action L. gasseri-B. bifidum-B 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 capsule 2 cap PO DAILY magnesium glycinate 120 mg capsule 240 mg PO DAILY DHA 200 mg capsule 200 mg PO DAILY sertraline [Zoloft] 50 mg tablet 50 mg PO QDAY Qty: 30 3RF Referrals / Follow Up: Carter Iglesias MD [Primary Care Provider, Family Practice]
[2025-02-07] MEDS: Oxytocin 15 Units/NS 250ml 15 UNITS/250 ML IV.SOLN 83 UNITS IV (00:15)
[2025-02-07] MEDS: Senna/Docusate Sodium 1 Tablet PO (09:41)
--- NOTE | 2025-02-07 12:37 | PCM.PN.OB ---
Subjective Subjective Patient doing well without complaints. Tolerating PO. Ambulating and voiding without difficulty. Feeding well. Denies chest pain, shortness of breath, calf pain/swelling, fevers, chills, lightheadedness. Objective Data Objective Data Vital Signs: Vital Signs Temp Pulse Resp BP Pulse Ox O2 Del Method 97.5 F L 69 16 125/84 H 99 Room Air 02/07/25 11:50 02/07/25 11:50 02/07/25 11:50 02/07/25 11:50 02/07/25 11:50 02/07/25 11:50 Oxygen Delivery Method Room Air Weight: 213 lb Body Mass Index (BMI) 35.4 Intake & Output: Intake and Output for Last 24 Hours 02/05/25 02/06/25 02/07/25 23:59 23:59 23:59 Intake Total 5610.13 / 5610.13 463.2 / 463.2 Output Total 2300 / 2300 1150 / 1150 Balance 3310.13 / 3310.13 -686.8 / -686.8 Lab / Micro Data 02/06/25 08:40 ROS Constitutional Constitutional: Denies chills, fatigue, fever(s), poor appetite or weakness Eyes Eyes: Denies blurry vision, change in vision, seeing flashes or spots in vision ENT HEENT: Denies dizziness, headache(s), loss taste/smell or sore throat Cardiovascular Cardiovascular: Denies chest pain, dizziness, dyspnea, irregular heart rhythm, palpitations or rapid heart rate Respiratory/Chest Respiratory/Chest: Denies chest tightness, cough, dyspnea or breast pain Gastrointestinal Gastrointestinal: Denies abdominal pain, constipation or vomiting Genitourinary Genitourinary: Denies dysuria or flank pain Musculoskeletal Musculoskeletal: Denies difficulty walking, joint pain, limited range of motion or numbness Neurologic Neurologic: Denies abnormal movements, abnormal speech, dizziness, numbness, seizure-like activity or syncope Psychiatric Psychiatric: Denies anxiety, behavioral changes, change in appetite, confusion, depression or suicidal thoughts Physical Exam Const alert, oriented x3 and no apparent distress General Appearance: cooperative and comfortable Resp normal respiratory effort Cardio regular rate GI normal to inspection, nondistended, normoactive bowel sounds GI Narrative: uterus is firm below umbilicus Palpation: soft Back/Spine no CVA tenderness and thoraco-lumbar ROM normal Extremity normal to inspection, no clubbing, cyanosis or edema, no calf tenderness and no pedal edema Psych mental status grossly normal, thought process normal, cooperative, affect normal, speech normal, activity/motor behavior normal, denies homicidal ideation and denies suicidal ideation Assessment & Plan (1) Vaginal delivery: COMMENT: miley nguyenBrandon CHRIS 02/06/25 PLAN: Plan s/p PPD # 1 1. routine post delivery care 2. breast feeding- support given 3. rh positive 4. rubella immune
[2025-02-08 02:31] VITALS: BP 108/77; PULSE 78; RESP 16; TEMP 36.2; O2SAT 98
--- NOTE | 2025-02-08 08:25 | PN.OBGYN_ITS ---
Subjective Subjective Patient doing well without complaints. Tolerating PO. Ambulating and voiding without difficulty. Feeding well. Denies chest pain, shortness of breath, calf pain/swelling, fevers, chills, lightheadedness. Objective Data Objective Data Vital Signs: Vital Signs Temp Pulse Resp BP Pulse Ox O2 Del Method 97.1 F L 78 16 108/77 98 Room Air 02/08/25 02:31 02/08/25 02:31 02/08/25 02:31 02/08/25 02:31 02/08/25 02:31 02/08/25 02:31 Oxygen Delivery Method Room Air Weight: 213 lb Body Mass Index (BMI) 35.4 Intake & Output: Intake and Output for Last 24 Hours 02/06/25 02/07/25 02/08/25 23:59 23:59 23:59 Intake Total 5610.13 / 5610.13 463.2 / 463.2 Output Total 2300 / 2300 1150 / 1150 Balance 3310.13 / 3310.13 -686.8 / -686.8 Lab / Micro Data 02/06/25 08:40 ROS Constitutional Constitutional: Reports systems reviewed and no addt'l complaints, except as documented; Denies anorexia or headache(s) Cardiovascular Cardiovascular: Reports systems reviewed and no addt'l complaints, except as documented; Denies dizziness, dyspnea, nausea or tachypnea Respiratory/Chest Respiratory/Chest: Reports systems reviewed and no addt'l complaints, except as documented; Denies cough, dyspnea, shortness of breath at rest or tachypnea Gastrointestinal Gastrointestinal: Reports systems reviewed and no addt'l complaints, except as documented; Denies abdominal pain, constipation or nausea Genitourinary Genitourinary: Reports systems reviewed and no addt'l complaints, except as documented; Denies burning urination, difficulty urinating, dysuria, urinary frequency or urinary incontinence Musculoskeletal Musculoskeletal: Reports systems reviewed and no addt'l complaints, except as documented Integumentary Integumentary: Reports systems reviewed and no addt'l complaints, except as documented Neurologic Neurologic: Reports systems reviewed and no addt'l complaints, except as documented; Denies abnormal speech, dizziness or headache(s) Psychiatric Psychiatric: Reports systems reviewed and no addt'l complaints, except as documented Endocrine Endocrinology: Reports systems reviewed and no addt'l complaints, except as documented Hematologic/Lymphatic Hematologic/Lymphatic: Reports systems reviewed and no addt'l complaints, except as documented Physical Exam Const alert, oriented x3 and no apparent distress Neck full ROM Resp normal respiratory effort, normal air movement and no retractions Effort and Inspection: able to speak in complete sentences and symmetric chest movement GI soft to palpation Bladder / Kidney Exam: bladder normal to palpation Uterus Palpation: uterus fundus firm Extremity normal to inspection and full ROM Psych mental status grossly normal, thought process normal and cooperative Assessment & Plan (1) Vaginal delivery: COMMENT: miley CHRIS 02/06/25 PLAN: s/p PPD # 2 1. routine post delivery care 2. breast feeding- support given 3. rh positive 4. rubella immune 5. discharge home (2) SROM (spontaneous rupture of membranes): (3) Anxiety: COMMENT: discussed counseling/meds. Zoloft very helpful (4) Supervision of high-risk : QUALIFIERS: Trimester: second trimester Qualified Code(s): O09.92 - Supervision of high risk , unspecified, second trimester COMMENT: PRR,; BALAJI 02/24/25; surprise PC: Janie; : Aden (5) : QUALIFIERS: Weeks of gestation: 36 weeks Qualified Code(s): Z 3A.36 - 36 weeks gestation of COMMENT: Neg GBS. Discussed genetic/carrier testing NIPT low risk, gender not selected, nl anatomy Charges/Coding Multi Select Codes Urinary/Genital Urinary/Genital CPT Codes: No Charge
--- NOTE | 2025-02-08 08:26 | PCM.DC.SUM ---
Providers Date of Admission: 02/06/25 Date of Discharge: 02/08/25 Primary Care Physician: Dr. Carter Iglesias MD Reason For Visit: VAG Diagnosis Discharge Diagnosis (1) Vaginal delivery: Status: Acute Code(s): O80 - Encounter for full-term uncomplicated delivery Plan: s/p PPD # 2 1. routine post delivery care 2. breast feeding- support given 3. rh positive 4. rubella immune 5. discharge home (2) SROM (spontaneous rupture of membranes): Status: Acute (3) Anxiety: Status: Acute Code(s): F41.9 - Anxiety disorder, unspecified (4) Supervision of high-risk : Status: Acute Code(s): O09.90 - Supervision of high risk , unspecified, unspecified trimester Qualifiers: Trimester: second trimester Qualified Code(s): O09.92 - Supervision of high risk , unspecified, second trimester (5) : Status: Acute Code(s): Z34.90 - Encounter for supervision of normal , unspecified, unspecified trimester Qualifiers: Weeks of gestation: 36 weeks Qualified Code(s): Z3A.36 - 36 weeks gestation of Medications at Discharge Home Medications docosahexaenoic acid 200 mg capsule ( DHA) 200 mg PO DAILY 04/01/24 sertraline 50 mg tablet (Zoloft) 50 mg PO QDAY #30 tabs 12/03/24 Lactobacills gasseri-Bifidobac bifidum,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 capsule 2 cap PO DAILY 02/02/25 magnesium glycinate 120 mg (as glycinate) capsule 240 mg PO DAILY 02/02/25 Hospital Course Operations None Procedures None Summary of Care Provided Minutes Spent on Discharge: 30 Physical Exam Const alert, oriented x3 and no apparent distress Neck full ROM Resp normal respiratory effort, normal air movement and no retractions Effort and Inspection: able to speak in complete sentences and symmetric chest movement GI soft to palpation Inspection: incision intact Bladder / Kidney Exam: bladder normal to palpation Uterus Palpation: uterus fundus Extremity normal to inspection and full ROM Psych mental status grossly normal, thought process normal and cooperative Weight / BMI Weight Weight: 213 lb Body Mass Index (BMI) 35.4 ABG / Lab / Microbiology Data 02/06/25 08:40 D/C Instructions May shower in (days): 0 May resume sexual activity in: 4-6 weeks Weight Bearing Status: Full weight bearing Call your doctor if your incision/area has: Continuous Slow Oozing, Sudden Increased Bleeding, Increased Pain/ Swelling, Increased Redness and Foul Smelling Discharge Call your doctor if you observe: Fever of 101 or Higher and Using more than 1 pad per hour (for 2 hours) Suture Line Care: Avoid Pulling/Pushing and Avoid Pinching/Bending Cleanse incision/area with: Soap & Water and Keep Dressing Clean & Dry DC O2, CPAP, BIPAP Needs Home O2 Discharge instructions: No Please Follow Up With: Maryann Bajwa, DO When: Call [phone] to make an appointment with your doctor in 6 weeks. If you had elevated blood pressure or 4th degree laceration, you will need to be seen in 2 weeks. Meaningful Use Info Meaningful Use Meaningful Use Diagnoses (Choose all that apply): None applicable Discharge Plan Admission Admit Date/Time: 02/06/25 08:14 Attending Provider: Maryann Bajwa Primary Care Provider: Carter Iglesias Discharge Orders/Prescriptions Prescriptions: No Action L. gasseri-B. bifidum-B 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 capsule 2 cap PO DAILY magnesium glycinate 120 mg capsule 240 mg PO DAILY DHA 200 mg capsule 200 mg PO DAILY sertraline [Zoloft] 50 mg tablet 50 mg PO QDAY Qty: 30 3RF Referrals / Follow Up: Carter Iglesias MD [Primary Care Provider, [facility]] Charges/Coding Multi Select Codes Urinary/Genital Urinary/Genital CPT Codes: No Charge
[2025-02-08 09:00] VITALS: BP 106/79; PULSE 87; RESP 16; TEMP 36.2
[2025-02-08 13:50] VITALS: BP 115/83; PULSE 88; RESP 16; TEMP 36.4; O2SAT 98
--- NOTE | 2025-02-08 15:39 | CASEMGMT ---
Social Work Assessment Labor and Delivery Unit Patient Address: [id number] [place] [address] Phone number: [phone] Date of Referral: 02/07/25 Time of Referral: 013 Referred By: Dr. Bajwa Date of Intervention: 02/08/25 Time of Intervention: 1030 Reason for Referral: "anxiety" Sw completed chart review and acknowledges social work consult due to maternal mental health history. Sw presented to bedside and introduced self to mother of baby, KALI Young. Sw explained reason for sw involvement and completed psychosocial assessment. History obtained from: medical records, MOB Household composition: Currently residing in the family home is MOB, father of baby, RADHA Samaniego, and their 4 year old daughter, Junito. baby to also be included in residence when ready for discharge. ADITI denies any concerns with housing, stating that it is safe and secure. Patient's parent/guardian status: ADITI states that she and ADIN met while attending the [facility] fair and introduced to each other by ADIN's sister. They have been together since 2013, and since 2018. [place] baby is their second child together. ADITI denies any current or past problems with domestic violence stating that she is safe at home. Medical History: ADITI is 34 year old female who is 3, para 1- now 2 following labor and delivery. ADITI received routine care during with [facility]. ADITI presented to hospital following rupture of membranes and delivered baby via vaginal delivery at 37 weeks gestation. Baby boy, named Junito, was born on [birth year], weighing 7lb 7oz with apgars of 9 and 9 at one and five minutes of life, respectfully. ADITI is breast feeding and states that baby will be seen by Dr. Benites for pediatric follow up. Educational Status: ADITI and ADIN both graduated from high school, no issues with reading, learning or comprehension. Financial Status: Both parents are gainfully employed, MOB is a employed for [employer] and has a certification, FOAvani works on the [employer]. Supplies: All necessary baby supplies have been obtained, including: car seat, safe sleep space, clothes, diapers and wipes. Childcare/Caregiver(s): MOB and ADIN will be the primary caregivers to baby Transportation: Both parents have their drivers license and reliable means of transportation. Programs/Agencies Involved: Parents are over income for community resources that provide financial support. Children Services/Legal Issues: No history of children services involvement, no issues or concerns warranting referral to be made at this time. Behavioral Health Issues: Mental Health History: ADITI states that ADIN does not have any mental health diagnoses. ADITI states that when she got with her first baby she started to get really anxious. ADITI states that a lot of it was due to looking at things on social media. ADITI reports that her family was able to recognize a change in her mental health, and brought it to her attention. ADITI states that she talked to her aunt who works as a NICU nurse, and she encouraged her to get off of social media, so she did this for close to a year, and this helped a lot. ADITI reports that her anxiety went away for most of her , and then came back during her third trimester. She attempted to manage it on her own by using healthy coping skills, and when the baby was born her anxiety went away. ADITI states that her journey with her first baby was good, and she did not struggle at all. ADITI reports that during this she noticed that she started to get anxious again, and talked to her OBGYN about this, and decided to start Zoloft. ADITI states that she did not want to be anxious at all during her , and thought that she had nothing to lose by trying medication. ADITI reports that she is not connected to any mental health services, but believes that the medication is helping, and she feels really good. Substance Use History:ADITI denies any substance use prior to and during . Family History: ADITI reports that alcoholism does run in her family, her uncle and some distant relatives struggle with alcoholism. ADITI reports that she does not drink in excess due to this. Drug Screens: No drug screens observed while completing chart review. Family/Social Stressors: ADITI denies any issues, stressors or concerns. Support Systems: ADITI reports that ADIN is her biggest support person. ADITI states that her love language is words of affirmations, and her makes it a point to tell her every day that she is beautiful, and that she is a great mom. ADITI states that his family and her family are also huge helpers and majorly involved in their lives and with their kids. Depression/Shaken Baby/Safe Sleeping: Sw and MOB talked at length regarding baby blues and mood and anxiety disorders. MOB reports that she is familiar with what symptoms to be on the lookout for. MOB states that she is proud of herself for reaching out for support during this , and wishes that she would have done the same thing during her first . MOB states that she also is not against limiting herself on social media again if it starts to impact her mental health again. MOB states that she would have intrusive anxious thoughts in the past, and would worry about bad things that could happen to her during , or her baby, or during delivery, or to the baby after it's born, etc. MOB states that she is also able to take 12 weeks off this maternity leave, which is also improved compared to her last maternity leave. Sw educated MOB on shaken baby and ABCs of [employer] sleep, MOB expressed understanding. ASSESSMENT: MOB and baby admitted following labor and delivery. MOB with history of experiencing anxiety during her pregnancies. MOB proactive during this and got started on Zoloft, prescribed by her OBGYN, and reports that she can tell a difference. MOB states that she is thankful to feel like herself and denies feeling down, anxious, tearful or sad. MOB was receptive to meeting with social work. MOB was observed laying in bed and attempting to comfort baby who was crying. MOB states that baby has been fussy, and she is not sure why. MOB was observed to care for baby in calm and nurturing manner, she did not get overwhelmed or frustrated with baby crying loudly. Over time baby did calm down and went to sleep skin to skin with MOB. MOB was talkative and open regarding her mental health. MOB states that FOB is her biggest support person and she is thankful to have him. ADITI reports that she had to have back surgery several years ago, and FOB was her primary caregiver. MBO states that he had to do the "dirty work" when it came to caring for her, and he didn't bat an eye, saying that it probably helped that he is also a dash. MOB was very pleasant and conversation flowed easily and naturally. MOB has a lot of support and has obtained all natural baby supplies. PLAN: No other services requested or indicated. MOB and baby to be discharged when medically ready. Parents were provided literature regarding: signs and symptoms of baby blues and mood and anxiety disorders, Help Me Grow, shaken baby prevention, ABCs of safe sleep and a list of [facility] resources that are available for them should any needs present themselves. Rajendra Santana, CONTACT PERSON, FINISHING DEPARTMENT SUPERVISOR
--- NOTE | 2025-02-16 09:38 | NURSING ---
F/up phone call performed-- pt. has had some headaches, that are relieved with tylenol. Denies edema, epigastric pain, or vision changes. Has been checking BPs at home and report they are WNL. Encouraged to call PCP if not resolving in the next day or two or if other symptoms arise. is -- seeing PCP for a visit today as MOB reports ped is also certified. Encouragement and support given. Family denies questions or concerns at this time.
== END 2025-02-08 14:30 | disposition home or self-care (01) | DRG 807 ==
LOC: WP 23:51 → WPOUT 02-09 09:25
PROVIDERS: Admitting Provider Obstetrics & Gynecology; PCP Family Medicine; Referring Provider Obstetrics & Gynecology; Visit Provider Obstetrics & Gynecology
DX: O42.02 Full-term premature rupture of membranes, onset of labor within 24 hours of rupture (principal); Z37.0 Single live birth; O99.344 Other mental disorders complicating childbirth; F41.9 Anxiety disorder, unspecified; O69.81X0 Labor and delivery complicated by cord around neck, without compression, not applicable or unspecified; O70.0 First degree perineal laceration during delivery; Z3A.37 37 weeks gestation of pregnancy; Z79.899 Other long term (current) drug therapy; Z87.891 Personal history of nicotine dependence
CPT/HCPCS: 59025; 59050; 84112; 85025; 86780; 86850; 86900; 86901; 99221; A4216; G0378